=== PATIENT | male | born 1960 | race Caucasian/White ===

== ENCOUNTER 2020-07-17 08:47 | Outpatient (REF) | payer MEDICARE, MEDICAID, SELFPAY | END 2020-07-17 08:48 | disposition home or self-care (01) | LOC: HO.BBR 08:47 | PROVIDERS: Visit Provider Internal Medicine | DX: E83.19 Other disorders of iron metabolism (principal) | CPT/HCPCS: 85014; 85018; 99195 ==

== ENCOUNTER 2020-10-27 07:54 | Outpatient (REF) | payer MEDICARE, MEDICAID, SELFPAY | END 2020-10-27 07:55 | disposition home or self-care (01) | LOC: HO.BBR 07:54 | PROVIDERS: PCP Internal Medicine; Visit Provider Internal Medicine | DX: Z13.89 Encounter for screening for other disorder (principal) ==

== ENCOUNTER 2021-01-31 08:03 | Outpatient (REF) | payer MEDICARE, MEDICAID, SELFPAY | END 2021-01-31 08:04 | disposition home or self-care (01) | LOC: HO.BBR 08:03 | PROVIDERS: Visit Provider Internal Medicine | DX: Z13.89 Encounter for screening for other disorder (principal) ==

== ENCOUNTER 2021-08-24 09:04 | Outpatient (REF) | payer MEDICARE, MEDICAID, SELFPAY ==
[2021-08-24 09:50] LABS: Hematocrit 38.8 % (42.0-52.0); Hemoglobin 13.7 g/dl (14.0-18.0)
== END 2021-08-24 09:05 | disposition home or self-care (01) ==
LOC: HO.BBR 09:04
PROVIDERS: Visit Provider Internal Medicine
DX: E83.19 Other disorders of iron metabolism (principal)
CPT/HCPCS: 36415; 85014; 85018; 99195

== ENCOUNTER 2021-11-26 08:40 | Outpatient (REF) | payer MEDICARE, MEDICAID, SELFPAY | END 2021-11-26 08:41 | disposition home or self-care (01) | LOC: HO.BBR 08:40 | PROVIDERS: Visit Provider Internal Medicine | DX: Z13.89 Encounter for screening for other disorder (principal) ==

== ENCOUNTER → 2022-01-21 10:26 | Outpatient (BNVA) | payer MEDICARE, MEDICAID, SELFPAY | PROVIDERS: PCP Internal Medicine; Visit Provider Dietitian, Registered | DX: E66.01 Morbid (severe) obesity due to excess calories (principal); Z68.42 Body mass index [BMI] 45.0-49.9, adult | CPT/HCPCS: 97802 ==

== ENCOUNTER 2022-02-26 08:57 | Outpatient (REF) | payer MEDICARE, MEDICAID, SELFPAY | END 2022-02-26 08:58 | disposition home or self-care (01) | LOC: HO.BBR 08:57 | PROVIDERS: Visit Provider Internal Medicine | DX: Z13.89 Encounter for screening for other disorder (principal) ==

== ENCOUNTER 2022-05-29 09:01 | Outpatient (REF) | payer MEDICARE, MEDICAID, SELFPAY | END 2022-05-29 09:02 | disposition home or self-care (01) | LOC: HO.BBR 09:01 | PROVIDERS: Visit Provider Internal Medicine | DX: Z13.89 Encounter for screening for other disorder (principal) ==

== ENCOUNTER 2022-08-26 08:50 | Outpatient (REF) | payer MEDICARE, MEDICAID, SELFPAY | END 2022-08-26 08:51 | disposition home or self-care (01) | LOC: HO.BBR 08:50 | PROVIDERS: Visit Provider Internal Medicine | DX: Z13.89 Encounter for screening for other disorder (principal) ==

== ENCOUNTER 2022-11-26 09:54 | Outpatient (REF) | payer MEDICARE, MEDICAID, SELFPAY | END 2022-11-26 09:55 | disposition home or self-care (01) | LOC: HO.BBR 09:54 | PROVIDERS: Visit Provider Internal Medicine | DX: Z13.89 Encounter for screening for other disorder (principal) ==

== ENCOUNTER 2023-02-25 08:32 | Outpatient (REF) | payer OTHER, SELFPAY | END 2023-02-25 08:33 | disposition home or self-care (01) | LOC: HO.BBR 08:32 | PROVIDERS: PCP Family Medicine; Visit Provider Internal Medicine | DX: E83.119 Hemochromatosis, unspecified (principal) | CPT/HCPCS: 85018; 99195 ==

== ENCOUNTER 2023-05-28 08:54 | Outpatient (REF) | payer OTHER, SELFPAY | END 2023-05-28 08:55 | disposition home or self-care (01) | LOC: HO.BBR 08:54 | PROVIDERS: PCP Family Medicine; Visit Provider Internal Medicine | DX: E83.19 Other disorders of iron metabolism (principal) | CPT/HCPCS: 85014; 85018; 99195 ==

== ENCOUNTER 2023-08-26 08:44 | Outpatient (REF) | payer OTHER, SELFPAY | END 2023-08-26 08:45 | disposition home or self-care (01) | LOC: HO.BBR 08:44 | PROVIDERS: PCP Family Medicine; Visit Provider Internal Medicine | DX: E83.19 Other disorders of iron metabolism (principal) | CPT/HCPCS: 85014; 85018; 99195 ==

== ENCOUNTER 2023-09-29 10:10 | Outpatient (REF) | payer OTHER, SELFPAY ==
--- NOTE | ~2023-09-29 | XR_ITS ---
EXAMINATION: XR PELVIS CLINICAL INFORMATION: Pain. COMPARISON: MR left hip 04/26/2021. TECHNIQUE: AP view of the pelvis. FINDINGS: Evaluation is very limited due to patient body habitus and positioning. There is severe, end-stage arthrosis of the left hip with bone in bone contact and deformity of the superolateral aspect of the left femoral head. There is moderate degenerative osteoarthritis of the right hip with joint space narrowing and subcortical sclerosis. SI joints are symmetric and pelvic rami and pubic symphysis are maintained. XR/XR pelvis 1-2V IMPRESSION: Limited radiographic examination. Severe, end-stage arthrosis of the left hip with suggestion of avascular necrosis of the femoral head. Recommend further evaluation with an MRI of the left hip.
== END 2023-09-29 10:11 | disposition home or self-care (01) ==
LOC: HO.HOSX 10:10
PROVIDERS: Visit Provider Orthopaedic Surgery
DX: E66.01 Morbid (severe) obesity due to excess calories (principal); Z68.42 Body mass index [BMI] 45.0-49.9, adult; M87.052 Idiopathic aseptic necrosis of left femur
CPT/HCPCS: 72170; 99202

== ENCOUNTER 2023-09-29 10:31 | Outpatient (AMB) | payer OTHER, SELFPAY ==
--- NOTE | 2023-09-29 10:37 | MHC.OFFVIS ---
Vital Signs 09/29/23 10:52 Height 5 ft 6 in Weight 340 lb BMI 54.9 Intake Visit Reasons: new Pt - Left hip pian, discuss second opinion Intake Note: Jonny is a 63 year old male who presents today VIA Wheelchair as a new patient for a second opinion of his left hip pain. Patient has had multiple surgical opinions from surgeons across [place] and [place] but providers chose not to proceed with surgical intervention due to patients weight. BMI recorded in July 2023 was 56.49. Utilizes upper body workouts, recumbent biking and aquatic therapies, working with home PT. Hx of steroid injections in the back but reports no previous treatments for hip left hip Taking Oxycontin ER 30MG BID prescribed by his PCP Allergies No Known Allergies Allergy (Verified 09/29/23 10:48) HPI HPI new Pt - Left hip pian, discuss second opinion: Details: Jonny is a 63 year old male who presents today VIA Wheelchair as a new patient for a second opinion of his left hip pain. Patient has had multiple surgical opinions from surgeons across [place] and [place] but providers chose not to proceed with surgical intervention due to patients weight. BMI recorded in July 2023 was 56.49. Utilizes upper body workouts, recumbent biking and aquatic therapies, working with home PT. Hx of steroid injections in the back but reports no previous treatments for hip left hip. He is unable to ambulate and feels the quality of his life is very poor. For example he has a difficult time taking his prescribed Lasix because it makes him have to go to the bathroom and he can not get to the bathroom in time because of his hip. He has frustrated that no 1 has been able to help him and he comes in today for a 2nd opinion. Taking Oxycontin ER 30MG BID prescribed by his PCP [facility] Surgical History (Updated 09/29/23 @ 10:52 by Jana Coley [facility]) H/O discectomy Physical Exam Vital Signs: BMI result Body Mass Index 54.9 Extrem Other: On exam he is in a wheelchair and is morbidly obese. He is bilateral lower leg edema with palpable dorsalis pedis pulses. He has no internal or external rotation of the left hip and doing so causes pain. He can stand with a walker but he is unable to ambulate without severe difficulty. Results Reviewed Results Reviewed: I personally reviewed relevant radiographs. Left hip is severely arthritic with loss of femoral head anatomy and femoral head collapse likely secondary to avascular necrosis. Assessment & Plan Assessment & Plan (1) Morbid obesity with BMI of 45.0-49.9, adult: Code(s): E66.01 - Morbid (severe) obesity due to excess calories; Z68.42 - Body mass index [BMI] 45.0-49.9, adult Category: Medical Plan: 63-year-old gentleman who is morbidly obese. In the setting of severe hip arthritis with collapse secondary to avascular necrosis BMI is not a contraindication to surgery but it certainly makes the surgery more difficult and increases his risks. I discussed this with him. He feels that he is unable to significantly alter his weight given his lack of mobility. More concerning however is his lower extremity venous stasis. I strongly recommend that he restart his Lasix and if we are going to proceed forward with surgery, we will need to optimize his health as much as possible. (2) Avascular necrosis of bone of left hip: Code(s): M87.052 - Idiopathic aseptic necrosis of left femur Category: Medical Plan: Is left hip arthritis is severe and I recommend hip replacement. I had a long discussion with him regarding the risks, benefits and alternatives. He feels there are no alternatives as his quality of life is very poor. Again we can begin to discuss surgery but we will need to work on his comorbidities. He states vascular surgery has seen him and there is no vascular concern. I do not see evidence of vascular concern but the edema in his legs is worrisome as is his BMI. Lastly he is taking Oxy Contin 30 mg a day which is always concerning in the setting of controlling his postoperative pain. I discussed this with him as well. He understands this and will work toward decreasing his narcotics, decreasing his weight and working on his mobility and decreasing his edema. Orders: Orders XR pelvis 1-2V 09/29/23 M25.559 - Pain in unspecified hip Coding Level of Care Code New Pt Level 4 (29084) Diagnoses Morbid obesity with BMI of 45.0-49.9, adult E66.01; Z68.42 Avascular necrosis of bone of left hip M87.052
[2023-09-29 10:52] VITALS: BMI 54.9
== END 2023-09-29 11:20 | disposition home or self-care (01) ==
PROVIDERS: PCP Family Medicine; Visit Provider Orthopaedic Surgery
DX: M87.052 Idiopathic aseptic necrosis of left femur (principal); E66.01 Morbid (severe) obesity due to excess calories; Z68.42 Body mass index [BMI] 45.0-49.9, adult
CPT/HCPCS: 99204

== ENCOUNTER → 2023-10-27 10:41 | Outpatient (BNVA) | payer OTHER, SELFPAY | PROVIDERS: PCP Family Medicine | DX: Z01.818 Encounter for other preprocedural examination (principal) ==

== ENCOUNTER 2023-11-03 13:54 | Outpatient (REF) | payer OTHER, SELFPAY | END 2023-11-03 13:55 | disposition home or self-care (01) | LOC: HO.BBR 13:54 | PROVIDERS: Visit Provider Internal Medicine | DX: Z13.89 Encounter for screening for other disorder (principal) ==

== ENCOUNTER 2023-11-18 | Outpatient (REF) | payer OTHER, SELFPAY ==
[2023-11-18 12:09] VITALS: BP 119/57; PULSE 67; RESP 16; O2SAT 96; BMI 54.5
--- NOTE | 2023-11-18 12:45 | HO.ANESPROP2 ---
HPI - Anesthesia Eval Consult details Narrative: CTA at [facility] shows CAD and moderate ascites. Discussed b/w cardiology and Dr Joseph and too high risk. 63yo M for Left Hip Total Replacement, 12/16/23 Awaiting speciality optimization No recent illness No CP. SOB with minimal exertion is baseline r/t deconditioning. Walks ~ 100ft with walker before needing to catch breath. BMI: 55% COPD: Borderline, No tx/inhaler at this time, CALLAHAN with walking ~ 100 ft NICOLE: CPAP QHS Chronic opiates: Oxycontin 30mg BID, Oxycodone 10mg daily Hx cirrhosis (fatty liver, hemachromatosis): Follow GI [facility]eline, recent EGD (1 varices no intervention) Hemochromatosis: therapeutic phlebotomies. Last 11/02/23. 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 No natural teeth Back pain Back pain Arthritis Morbidly obese Fatty liver History of cirrhosis of liver Avascular necrosis Hemochromatosis COPD (chronic obstructive pulmonary disease) NICOLE on CPAP Family History Family History Maternal Grandfather Heart attack Brother Heart attack Family history of problems with anesthesia: No Surgical History Surgical History Hx of esophagogastroduodenoscopy Hx of colonoscopy [place] teeth extracted History of surgery History of back surgery (~1997) H/O discectomy (~1997) History of Problems with Anesthesia: No Social History Social History Household Members: None Housing: Apartment Are you a primary customer care consultant to a significant other at home: No Do you presently have visiting nurse or other home services: Yes (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, 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) 75 years or older and lives alone: No Patient Tobacco Use Status: Former Tobacco user Tobacco use type: Cigarette Meds Allergies Allergy/AdvReac Type Severity Reaction Status Date / Time No Known Allergies Allergy Verified 12/04/23 11:58 Home Medications ?Medication ?Instructions ?Recorded ?Confirmed ?Last Taken ?Type zolpidem 10 mg tablet 10 mg PO BEDTIME PRN Insomnia 09/29/23 12/04/23 Unknown History cholecalciferol (vitamin D3) 50 50 mcg PO DAILY 11/18/23 12/04/23 Unknown History mcg (2,000 unit) capsule (Vitamin D3) multivitamin 1 tab PO DAILY 11/18/23 12/04/23 Unknown History oxycodone 10 mg tablet 10 mg PO DAILY PRN chronic pain 11/18/23 12/04/23 Unknown History oxycodone 30 mg tablet,crush 30 mg PO BID 11/18/23 12/04/23 Unknown History resistant,extended release 12 hr (OxyContin) Exam Height,Weight and Vital Signs: Height 5 ft 6 in Weight 153.314 kg Last Vital Signs Pulse 67 11/18/23 12:09 Resp 16 11/18/23 12:09 BP 119/57 L 11/18/23 12:09 Pulse Ox 96 11/18/23 12:09 O2 Del Method Room Air 11/18/23 12:09 Airway TM Dist: <=3cm Neck ROM: Limited (severe arthritis) Loose/Missing/Broken Teeth: Yes (edentulous) Heart: RRR Lungs: CTAB, dim bases Assessment and Plan Assessment Anesthesia Assessment: Anesthesia Plan Discussed and PAT Visit Final Anesthetic Review Family History of Problems with Anesthesia: No History of Problems with Anesthesia: No
[2023-11-18 14:55] LABS: MRSA Nasal PCR NEGATIVE (Negative); SA Nasal PCR POSITIVE (Negative)
== END 2023-11-18 00:01 | disposition home or self-care (01) ==
LOC: HO.PAT
PROVIDERS: Physician Assistant; PCP Family Medicine; Visit Provider Orthopaedic Surgery
DX: Z01.818 Encounter for other preprocedural examination (principal); M16.12 Unilateral primary osteoarthritis, left hip
CPT/HCPCS: 87640; 87641

== ENCOUNTER 2023-11-20 12:29 | Outpatient (AMB) | payer OTHER, SELFPAY ==
--- NOTE | 2023-11-20 12:45 | MHC.OFFVIS ---
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 Patient himself is morbidly obese and he is in a wheelchair. There is no clear history of any coronary disease or myocardial infarction or cardiomyopathy. He has been seen by anesthesiologist and by [employer] message by their nurse practitioner, thought to be high risk for anesthesia due to high BMI of 55, cirrhosis, COPD, NICOLE as well as sedentary lifestyle. Hence they requested cardiac evaluation as well. Within limits of his activity, no clear-cut cardiac symptoms like angina. [facility] Medical History (Updated 11/20/23 @ 13:28 by Aurelio Tovar MD) Portal hypertensive gastropathy Depression Anxiety Iron overload syndrome Internal hemorrhoids Diverticulosis Hx of esophageal varices senior living prescription opiate use No natural teeth Back pain Back pain Arthritis Morbidly obese Fatty liver History of cirrhosis of liver Avascular necrosis Hemochromatosis COPD (chronic obstructive pulmonary disease) NICOLE on CPAP Surgical History Hx of esophagogastroduodenoscopy Hx of colonoscopy [place] teeth extracted History of surgery History of back surgery (~1997) H/O discectomy (~1997) Family History (Updated 11/20/23 @ 12:53 by Krystyna Coleman CMA) Maternal Grandfather Heart attack Brother Heart attack Social History (Updated 11/18/23 @ 12:38 by Shaniqua Sierra RN) Household Members: None Housing: Apartment Are you a primary neonatal intensive care unit nurse to a significant other at home: No Do you presently have visiting nurse or other home services: Yes (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, 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) Patient Tobacco Use Status: Former Tobacco user Tobacco use type: Cigarette Review of Systems Const Denies chills, Denies daytime sleepiness, Denies fatigue, Denies fever(s), Denies poor appetite, Denies snoring, Denies stops breathing during sleep, Denies weakness, Denies weight gain and Denies weight loss Eyes Denies loss of vision ENT Denies dizziness and Denies hearing loss Card Denies chest pain, Denies irregular heart rhythm, Denies claudication, Reports leg edema, Denies lightheadedness, Denies palpitations, Reports dyspnea on exertion and Denies orthopnea Resp Denies cough, Denies excessive phlegm production, Reports dyspnea on exertion, Denies snoring and Denies wheezing GI Denies abdominal pain, Denies hematochezia, Denies change in bowel habits, Denies nausea and Denies vomiting Denies dysuria and Denies urinary frequency Musc Denies arthralgias, Denies muscle weakness, Denies numbness and Denies other Skin/Breast Denies nail changes and Denies rash Neuro Denies Abnormal speech present, Denies dizziness, Denies loss of vision, Denies memory loss, Denies numbness and Denies weakness Psych Denies depression and Denies memory loss Endo Denies fatigue and Denies palpitations Ramon/Lymph Denies easy bruising Aller/Immun Denies wheezing Physical Exam Vital Signs: Last Vital Signs Pulse 68 11/20/23 12:47 BP 130/68 11/20/23 12:47 Const Other: In wheelchair General: comfortable and no acute distress Orientation/consciousness: patient oriented x3 HEENT Other: Unremarkable Head: Yes normal to inspection Neck Neck: Yes normal visual inspection Chest Chest palpation & inspection: normal inspection of the chest Resp Auscultation: clear to auscultation bilaterally Cardio Palpation: normal PMI Heart sounds: S1 normal heart sound present, S2 normal heart sound present, no gallops, no murmurs and no rubs GI Palpation (GI): Soft to palpation Back/Spine/Pelvis Other: unremarkable Skin General skin exam: no rashes or lesions noted Neuro General: patient oriented x3 Speech: No Abnormal speech present Extrem General: Yes normal to inspection Psych Mental Status: mental status grossly normal Assessment & Plan Assessment & Plan (1) Preoperative cardiovascular examination: Code(s): Z01.810 - Encounter for preprocedural cardiovascular examination Category: Medical (2) Avascular necrosis of bone of left hip: Code(s): M87.052 - Idiopathic aseptic necrosis of left femur Category: Medical (3) Morbidly obese: Code(s): E66.01 - Morbid (severe) obesity due to excess calories Category: Medical (4) History of cirrhosis of liver: Code(s): Z87.19 - Personal history of other diseases of the digestive system Category: Medical (5) COPD (chronic obstructive pulmonary disease): Code(s): J44.9 - Chronic obstructive pulmonary disease, unspecified Category: Medical (6) NICOLE on CPAP: Code(s): G47.33 - Obstructive sleep apnea (adult) (pediatric) Category: Medical (7) Hemochromatosis: Comment: therapeutic phlebotomy q 3 months, last ~10/31/2023 Code(s): E83.119 - Hemochromatosis, unspecified Category: Medical Plan In the recent EKG from [facility], underlying rhythm is sinus at 71/Min; right bundle-branch block pattern. Normal MD. Corrected QT 483 milliseconds. Considering his many comorbidities as well as sedentary lifestyle, recommend a comprehensive cardiac workup before proceeding with hip surgery. Patient is questioning the need for testing-I explained him that because of his various comorbidities, he has been thought to be high risk for surgery and hence will need cardiac testing preoperatively. Obtain echocardiogram and coronary CT. We can make an addendum after the above. Message sent to Dr. Bah/. Orders: Orders CT Cardiac Coronary Angio Today I25.10 - Atherosclerotic heart disease of [place] coronary artery without angina pectoris, Z01.810 - Encounter for preprocedural cardiovascular examination CA echo transthoracic complete Today I25.10 - Atherosclerotic heart disease of [place] coronary artery without angina pectoris, Z01.810 - Encounter for preprocedural cardiovascular examination Basic Metabolic Panel Today Z01.810 - Encounter for preprocedural cardiovascular examination Coding Level of Care Code New Pt Level 4 (74114) Diagnoses Preoperative cardiovascular examination Z01.810 Avascular necrosis of bone of left hip M87.052 Morbidly obese E66.01 History of cirrhosis of liver Z87.19 COPD (chronic obstructive pulmonary disease) J44.9 NICOLE on CPAP G47.33 Hemochromatosis E83.119
[2023-11-20 12:47] VITALS: BP 130/68; PULSE 68
== END 2023-11-20 13:48 | disposition home or self-care (01) ==
PROVIDERS: PCP Family Medicine; Visit Provider Internal Medicine
DX: Z01.810 Encounter for preprocedural cardiovascular examination (principal); M87.052 Idiopathic aseptic necrosis of left femur; E66.01 Morbid (severe) obesity due to excess calories; Z87.19 Personal history of other diseases of the digestive system; J44.9 Chronic obstructive pulmonary disease, unspecified; G47.33 Obstructive sleep apnea (adult) (pediatric); E83.119 Hemochromatosis, unspecified
CPT/HCPCS: 99204

== ENCOUNTER → 2023-11-20 12:29 | Outpatient (BNVA) | payer OTHER, SELFPAY | PROVIDERS: PCP Family Medicine; Visit Provider Internal Medicine | DX: Z01.810 Encounter for preprocedural cardiovascular examination (principal); I25.10 Atherosclerotic heart disease of native coronary artery without angina pectoris; E66.01 Morbid (severe) obesity due to excess calories; Z87.19 Personal history of other diseases of the digestive system | CPT/HCPCS: 99202 ==

== ENCOUNTER 2023-11-27 12:40 | Outpatient (REF) | payer OTHER, SELFPAY ==
[2023-11-27 09:48] VITALS: PULSE 76; RESP 16; O2SAT 97
--- NOTE | 2023-11-27 15:31 | PFT_ITS ---
Indication: NICOLE Spirometry [FEV1 to FVC 57%; FEV1 2.27 L; FVC 3.96 L. no significant response to bronchodilators noted. Maximum voluntary ventilation 67% predicted] Lung Volumes [Total lung capacity 114% predicted; residual volume 142% predicted] Diffusion Capacity [DLCO 69% predicted] Comparisons [None] Interpretation [There is a obstructive ventilatory defect consistent with moderate COPD. No significant response to bronchodilators noted. There is a mild decrease in maximum voluntary ventilation secondary to deconditioning also worsening dynamic inspiratory capacity. Lung volumes with a trend of hyperinflation and significant air trapping. There is mild diffusion impairment. Clinical correlation warranted.] MTDD
== END 2023-11-27 12:41 | disposition home or self-care (01) ==
LOC: HO.RESP 12:40
PROVIDERS: PCP Family Medicine; Visit Provider Internal Medicine Pulmonary Disease
DX: J44.9 Chronic obstructive pulmonary disease, unspecified (principal)
CPT/HCPCS: 94010; 94640; 94727; 94729

== ENCOUNTER → 2023-11-27 15:31 | Outpatient (BNV) | payer OTHER, SELFPAY | PROVIDERS: PCP Family Medicine; Visit Provider Hospitalist | DX: J44.9 Chronic obstructive pulmonary disease, unspecified (principal); G47.33 Obstructive sleep apnea (adult) (pediatric); Z01.810 Encounter for preprocedural cardiovascular examination | CPT/HCPCS: 94060; 94727; 94729 ==

== ENCOUNTER 2023-12-04 11:11 | Outpatient (AMB) | payer OTHER, SELFPAY ==
--- NOTE | 2023-12-04 11:21 | A.OFFVIS_ITS ---
Vital Signs 12/04/23 11:22 Height 5 ft 6 in Weight 332 lb BMI 53.6 BP 120/68 Blood Pressure Location Lt brachial Position Sitting Pulse 75 Pulse Source Pulse Oximeter Pulse Oximetry (%) 95 Oxygen Delivery Method Room Air Intake Visit Reasons: Pre Op - Ortho - 12/15 - LTH Intake Note: pt is here as a new patient for pulm clearance, he gets supplies from [facility], this is his second cpap, pain medication is for back and hip pain. [facility] was provider for original sleep study, and possible 2nd at [facility]. Insert Molding Operator Required: No Allergies No Known Allergies Allergy (Verified 12/04/23 11:58) Medication List - Last Reconciled 12/04/23 by Angelia Bell MD cholecalciferol (vitamin D3) (Vitamin D3) 50 mcg PO DAILY multivitamin 1 tab PO DAILY oxycodone 10 mg PO DAILY PRN oxycodone ER (OxyContin) 30 mg PO BID walker Folding Front wheeled walker zolpidem 10 mg PO BEDTIME PRN Do you need a note to return to daycare/school/sports/work: No HPI HPI Pre Op - Ortho - 12/15 - LT: Details: 63 YEARS OLD VERY PLEASANT GENTLEMAN IS BEING SEEN FOR THE 1ST TIME FOR PULMONARY EVALUATION AND PREOP CLEARANCE. HE HAS MORBID OBESITY, AND IS A KNOWN CASE OF OBSTRUCTIVE SLEEP APNEA SINCE 2003, WHEN HE WAS 1ST DIAGNOSED. HAS BEEN USING CPAP SINCE THEN, CPAP MACHINE WAS CHANGED ABOUT 6 YEARS AGO. HE IS ON AUTO PAP MODE WITH PRESSURE SETTING OF 6 TO 20 CM , BUT MOSTLY USING THE PRESSURE OF 12-13 CM. HIS COMPLIANCE HAS BEEN EXCELLENT, HE CONTINUES TO GET SUPPLIES FROM HIS DME WHICH IS [facility]. FOR HIS OBSTRUCTIVE SLEEP APNEA HE WAS BEING FOLLOWED BY DR. GUTIERREZ IN [place], BUT FOR THE PAST 5-6 YEARS HE HAS BEEN GETTING HIS SUPPLIES REGULARLY AND HAS NOT SEEN ANY PARTICULAR PHYSICIAN FOR HIS SLEEP APNEA . THE PATIENT IS WELL EDUCATED ABOUT THE USE OF CPAP. HE SLEEPS GOOD WITH THE CPAP ON OTHERWISE HE WOULD NOT BE ABLE TO SLEEP WELL. HE ALSO HAS PAST HISTORY OF SMOKING IN THE REMOTE PAST, AND QUIT ABOUT 20 YEARS AGO INITIALLY WAS ON SYMBICORT , WHICH WAS LATER ON STOPPED BECAUSE HE WAS PRONE TO GET FREQUENT RESPIRATORY INFECTIONS. FOR THE PAST 15 YEARS OR SO HE HAS JUST BEEN USING ALBUTEROL P.R.N., .AND HAS STAYED WELL THIS GENTLEMAN HAS HAD PAINFUL LEFT HIP, INITIALLY DIAGNOSED HIP FRACTURE, BU T SUBSEQUENTLY HE IS DIAGNOSED TO HAVE AVASCULAR NECROSIS OF THE LEFT HIP. HE IS BEING PREPARED FOR SURGICAL TREATMENT OF THE LEFT HIP. AT PRESENT HE DENIES ANY COUGH OR WHEEZING ATTACKS HE IS DOING WELL JUST WITH THE USE OF ALBUTEROL P.R.N.. HIS GAIT IS IMPAIRED AND HE IS MOSTLY IN THE WHEELCHAIR WHEN HE COMES OUTDOORS, AT HOME HE HOPS AROUND WITH THE HELP OF A WALKER. DENIES GETTING ANY ATTACKS OF SHORTNESS OF BREATH. 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 No natural teeth Back pain Back pain Arthritis Morbidly obese Fatty liver History of cirrhosis of liver Avascular necrosis Hemochromatosis COPD (chronic obstructive pulmonary disease) NICOLE on CPAP Surgical History Hx of esophagogastroduodenoscopy Hx of colonoscopy [place] teeth extracted History of surgery History of back surgery (~1997) H/O discectomy (~1997) Family History Maternal Grandfather Heart attack Brother Heart attack Social History Household Members: None Housing: Apartment Are you a primary healthcare risk control consultant to a significant other at home: No Do you presently have visiting nurse or other home services: Yes (BUNDLE WRAPPER 37.5 hours M-F, 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) 75 years or older and lives alone: No Patient Tobacco Use Status: Former Tobacco user Tobacco use type: Cigarette Review of Systems Const Details: SYMPTOMS ARE DESCRIBED IN HPI. MAINLY HE IS INCAPACITATED DUE TO PAINFUL LEFT HIP. HE SLEEPS WELL. WITH THE CPAP ON DENIES ANY SHORTNESS OF BREATH AT REST. .DENIES ANY CARDIAC ISSUES DENIES ANY GI PROBLEMS All systems reviewed & are unremarkable except as noted in HPI and below Physical Exam Vital Signs: Last Vital Signs Pulse 75 12/04/23 11:22 BP 120/68 12/04/23 11:22 Pulse Ox 95 12/04/23 11:22 Oxygen Delivery Method Room Air 12/04/23 11:22 BMI result Body Mass Index 53.6 THIS GENTLEMAN IS ALERT WELL ORIENTATED VERY PLEASANT TO TALK TO. DOES NOT SEEM TO BE IN ANY DISTRESS. Const General: healthy appearing, comfortable, no acute distress, alert and awake Orientation/consciousness: patient oriented x3 HEENT Head: Yes normal to inspection General nose exam: No nasal polyps present and No nasal discharge present Face and sinus: Yes sinuses nontender Mouth: oropharynx abnormals (NARROW AND CROWDED, MALLAMPATI CLASS 4) Throat: Yes posterior oropharynx normal Eyes General: appearance normal, both eyes and all related structures Neck Neck: Yes normal visual inspection, Yes no lymphadenopathy, Yes trachea midline, Yes no JVD and Yes other (NECK SIZE 20 IN) Thyroid: Thyroid normal Chest Chest palpation & inspection: normal inspection of the chest, normal palpation of entire chest wall and no tenderness Resp Other: PERCUSSION NOTE NOT PERCEPTIBLE BECAUSE OF THICK. CHEST WALL BREATH SOUNDS ARE SOMEWHAT DISTANT, AND MUCH DECREASED OVER THE BASILAR AREAS. HE HAS NO AUDIBLE WHEEZES OR RHONCHI. Cardio Palpation: PMI not normal (NOT PALPABLE) Rate: regular rate Rhythm: regular rhythm Heart sounds: Gallop heart sound present and Murmur heart sound present Peripheral pulses: Peripheral pulses 2+ throughout GI Palpation (GI): Soft to palpation, Tenderness to palpation present (GI), No hepatosplenomegaly present, Palpable mass present and Other GI palpation findings present (ABDOMINAL WALL IS GROSSLY OBESE AND PENDULOUS) Auscultation: normal bowel sounds Back/Spine/Pelvis Other: NOT EXAMINED Skin General skin exam: no rashes or lesions noted (EXCEPT FOR CHRONIC REDNESS OF THE SKIN OF LEGS) Neuro General: patient oriented x3, No gait normal (PATIENT IS NON AMBULATORY SITTING IN THE CHAIR) and no focal motor deficits Cranial nerves: Yes CN's II-XII intact bilaterally Extrem General: Yes normal to inspection, Yes no calf tenderness and Yes venous stasis dermatitis (HAS CHRONIC VENOUS STASIS AND CHRONIC EDEMA OF THE LEGS) Psych Appearance: grossly normal and well kempt Speech and movement: Normal speech and movement present Results Reviewed Results Reviewed: COMPLIANCE REPORT FOR THE CPAP IS REVIEWED. HE HAS USED THE CPAP 30/30 NIGHTS,. AVERAGE USAGE 8 HOURS 39 MINUTES PRESSURE USED IS. 12-13 CM . NO AIR LEAK RESIDUAL AHI ONLY 0.4 PULMONARY FUNCTION TEST ON 11/27/2023. SHOWS NO RESTRICTIVE PULMONARY DISORDER. THERE IS MILD TO MODERATE DEGREE OF OBSTRUCTIVE AIRWAY DISORDER. TOTAL LUNG CAPACITY IS NORMAL AND RESIDUAL VOLUME SLIGHTLY INCREASED. DIFFUSION CAPACITY 69% Assessment & Plan Assessment & Plan (1) Morbidly obese: Comment: THIS GENTLEMAN IS A CASE OF SUPER MORBID OBESITY THIS IS GOING ON FOR SEVERAL YEARS. IT IS DIFFICULT FOR HIM TO LOSE WEIGHT . Code(s): E66.01 - Morbid (severe) obesity due to excess calories Category: Medical Plan: ,ONCE HE GETS HIS LEFT HIP ARTHROPLASTY AND HE BECOMES MORE , MOBILE SHOULD TRY TO WALK AROUND. IN THE MEANTIME TRY TO CONTROL THE CALORIES INTAKE MUCH POSSIBLE (2) COPD (chronic obstructive pulmonary disease): Comment: HE HAS HISTORY OF SMOKING IN THE REMOTE PAST HE DOES HAVE DIAGNOSIS OF OBSTRUCTIVE PULMONARY DISORDER, HOWEVER IT IS MILD TO MODERATE AND SEEMS TO BE WELL CONTROLLED JUST WITH P.R.N. USE OF ALBUTEROL. Code(s): J44.9 - Chronic obstructive pulmonary disease, unspecified Category: Medical Plan: ADVISED TO START DOING DEEP BREATHING EXERCISES 3 TO 4 TIMES A DAY . CONTINUE TO USES ALBUTEROL HFA 2 PUFFS Q 4-6 HOURS P.R.N. IN CASE OF COUGH OR WHEEZING (3) NICOLE on CPAP: Comment: HE IS A WELL ESTABLISHED CASE OF OBSTRUCTIVE SLEEP APNEA. HAS BEEN USING CPAP SINCE 2003 VERY REGULARLY AND WITH FULL COMPLIANCE. HIS CURRENT COMPLIANCE REPORT SHOWS THAT HE DOES USE THE CPAP FOR 8 AND A 1/2 HOURS EVERY NIGHT AND SLEEPS WELL. HIS OBSTRUCTIVE SLEEP APNEA IS FULLY CONTROLLED WITH THE USE OF CPAP. Code(s): G47.33 - Obstructive sleep apnea (adult) (pediatric) Category: Medical Plan: * PREOP PULMONARY CLEARANCE. HIS COPD WELL OBSTRUCTIVE SLEEP APNEA BEING WELL CONTROLLED AT THIS TIME, I DO NOT SEE ANY PULMONARY CONTRAINDICATION TO HIS PLANNED SURGERY. HE IS INSTRUCTED TO START DOING DEEP BREATHING EXERCISES. HE IS INSTRUCTED TO KEEP ON USING. THE CPAP REGULARLY HE WOULD NEED TO USE, THE CPAP IN POSTOPERATIVE. MAY BE BEST FOR HIM TO TAKE HIS CPAP DEVICE WITH HIM TO THE HOSPITAL/ AND LATER ON TO THE REHAB FACILITY. HE CAN USE ALBUTEROL HFA 2 PUFFS Q 4-6 HOURS P.R.N. AND ALTERNATIVELY MAY USE ALBUTEROL SOLUTION IN THE NEBULIZER Q 4-6 HOURS P.R.N.. HE SHOULD BE ENCOURAGED TO USE INCENTIVE SPIROMETRY DEVICE FOR DEEP BREATHING EXERCISES WHILE AWAKE. Coding Level of Care Code New Pt Level 4 (82140) Diagnoses Morbidly obese E66.01 COPD (chronic obstructive pulmonary disease) J44.9 NICOLE on CPAP G47.33
[2023-12-04 11:22] VITALS: BP 120/68; PULSE 75; O2SAT 95; BMI 53.6
== END 2023-12-04 11:53 | disposition home or self-care (01) ==
PROVIDERS: PCP Family Medicine; Visit Provider Internal Medicine
DX: E66.01 Morbid (severe) obesity due to excess calories (principal); J44.9 Chronic obstructive pulmonary disease, unspecified; G47.33 Obstructive sleep apnea (adult) (pediatric)
CPT/HCPCS: 99204

== ENCOUNTER → 2023-12-04 11:11 | Outpatient (BNVA) | payer OTHER, SELFPAY | PROVIDERS: PCP Family Medicine; Visit Provider Internal Medicine | DX: J44.9 Chronic obstructive pulmonary disease, unspecified (principal); G47.33 Obstructive sleep apnea (adult) (pediatric); E66.01 Morbid (severe) obesity due to excess calories; Z99.89 Dependence on other enabling machines and devices | CPT/HCPCS: 99202 ==

== ENCOUNTER → 2023-12-05 08:42 | Outpatient (REF) | payer OTHER, SELFPAY ==
--- NOTE | 2023-12-05 08:45 | CA_ITS ---
Transthoracic Echocardiogram Patient (Last, First, Middle): Jonny Reed, Gender: Male Date of : 1960 Age: 63 Procedure Date: 12/05/2023 Procedure Type: Transthoracic Echocardiogram Location: OP Height: 167.64 cm Weight: 150.6 kg BSA: 2.48 m2 Heart Rate: 77 bpm BP: 120 / 66 mmHg Thermal Technician: SB Referring MD: Aurelio Tovar MD Symptoms: I25.10 - Atherosclerotic heart disease of [place] coronary artery without... Study Quality: Poor/BSA/Supine/HOB ECG Rhythm: Sinus Conclusions: - Based on very limited images, LVEF probably preserved. Not quantifiable. - Valves poorly visualized. Findings Procedure Information Contrast agent, definity, is being given per protocol without apparent complications. The quality of the study was technically difficult, despite the use of contrast, and endocardial definition remains poor. The study quality is limited by patients body habitus and lung artifact. Left Ventricle The left ventricle was not well visualized. Regional wall motion abnormalities can not be excluded due to suboptimal endocardial definition. Evidence suggests grade I (mild) diastolic dysfunction. Based on very limited images, LVEF probably preserved. Not quantifiable. Right Ventricle The right ventricle was not well visualized. Atria The left atrium was not well visualized. The right atrium was not well visualized. Aortic Valve The aortic valve was not well visualized. There is no aortic valve stenosis. There is no aortic valve regurgitation. Mitral Valve The mitral valve was not well visualized. Pulmonic Valve The pulmonic valve was not well visualized. Tricuspid Valve Tricuspid regurgitation envelope is inadequate for calculation of right ventricular systolic pressure. Venous The inferior vena cava was not well visualized. Pericardium/Pleural There is no evidence of pericardial effusion. Prior Study Comparison No prior study available for comparison. Measurements 2D Systolic Function EF 2C: 62.90 >55% Mitral Valve MV Pk E: 0.62 MV PK A: 0.84 MV Decel Time: 233.00 E/A: 0.70 E'Lateral: 8.38 E'Medial: 4.90 E/E' Med: 12.70 E/E' Lat: 7.40 PHT: 68.00 MVA PHT: 3.24 Decel Hinds: 2.67 Aortic Valve AoV Pk Uriel: 1.16 AoV Mn Uriel: 0.81 AoV VTI: 0.21 AoV Pk Grad: 5.00 Aov Mn Grad: 3.00 LVOT LVOT Pk Uriel: 1.03 LVOT Mn Uriel: 0.63 LVOT VTI: 0.21 LVOT Pk Grad: 4.00 LVOT Mn Grad: 2.00 Diastolic Function MV Pk E: 0.62 MV Pk A: 0.84 E/A: 0.70 E'Medial: 4.90 E/E' Med: 12.70 E' Laterial: 8.38 E/E' Lat: 7.40 Updated in Other Vendor System with Status of Final Aurelio Tovar MD electronically signed on 12/07/2023 11:39:15 AM with status of Final
== END ==
LOC: HO.CARD 08:42
PROVIDERS: PCP Family Medicine; Visit Provider Internal Medicine
DX: Z01.810 Encounter for preprocedural cardiovascular examination (principal); I25.10 Atherosclerotic heart disease of native coronary artery without angina pectoris
CPT/HCPCS: 93306; Q9957

== ENCOUNTER → 2023-12-05 08:45 | Outpatient (BNV) | payer OTHER, SELFPAY | PROVIDERS: PCP Family Medicine; Visit Provider Internal Medicine | DX: I25.10 Atherosclerotic heart disease of native coronary artery without angina pectoris (principal); R93.9 Diagnostic imaging inconclusive due to excess body fat of patient | CPT/HCPCS: 93306 ==

== ENCOUNTER 2023-12-12 10:47 | Outpatient (REF) | payer OTHER, SELFPAY | END 2023-12-12 10:48 | disposition home or self-care (01) | LOC: HO.HOSX 10:47 | PROVIDERS: Visit Provider Physician Assistant | DX: Z13.89 Encounter for screening for other disorder (principal) ==

== ENCOUNTER 2023-12-15 13:07 | Outpatient (AMB) | payer OTHER, SELFPAY ==
[2023-12-15 13:11] VITALS: BMI 53.6
--- NOTE | 2023-12-15 13:11 | A.OFFVIS_ITS ---
Vital Signs 12/15/23 13:11 Height 5 ft 6 in Weight 332 lb BMI 53.6 Intake Visit Reasons: discussion Intake Note: Jonny is a 63 year old male who presents today for discussion with Dr. Cohen regarding surgical interventions Allergies No Known Allergies Allergy (Verified 12/04/23 11:58) HPI HPI discussion: Details: Jonny is a 63 year old male who presents today for discussion with Dr. Cohen regarding surgical interventions. He has a history of liver disease and cardiac malfunction and was being evaluated for risk for hip arthroplasty. He continues to be opioid dependent and have significant lower extremity edema. He complains of right hip pain that prevents him from walking. He is able to walk minimally with a walker however. [facility] Medical History Portal hypertensive gastropathy Depression Anxiety Iron overload syndrome Internal hemorrhoids Diverticulosis Hx of esophageal varices intermediate prescription opiate use No natural teeth Back pain Back pain Arthritis Morbidly obese Fatty liver History of cirrhosis of liver Avascular necrosis Hemochromatosis COPD (chronic obstructive pulmonary disease) NICOLE on CPAP Surgical History Hx of esophagogastroduodenoscopy Hx of colonoscopy [place] teeth extracted History of surgery History of back surgery (~1997) H/O discectomy (~1997) Family History Maternal Grandfather Heart attack Brother Heart attack Social History Household Members: None Housing: Apartment Are you a primary long term acute care registered nurse to a significant other at home: No Do you presently have visiting nurse or other home services: Yes (QUALITY CONTROL REPRESENTATIVE 37.5 hours M-F, 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) 75 years or older and lives alone: No Patient Tobacco Use Status: Former Tobacco user Tobacco use type: Cigarette Physical Exam Vital Signs: BMI result Body Mass Index 53.6 Extrem Other: Morbidly obese gentleman with bilateral 2+ lower extremity edema and venous stasis. He has minimal pain of his right hip with positive impingement test. Results Reviewed Results Reviewed: Recent CT angiogram showed moderate blockage of his coronary vessels with ascites in his abdominal region. Assessment & Plan Assessment & Plan (1) Hemochromatosis: Comment: therapeutic phlebotomy q 3 months, last ~10/31/2023 Code(s): E83.119 - Hemochromatosis, unspecified Category: Medical Plan: This contributes to his liver disease apparently. (2) COPD (chronic obstructive pulmonary disease): Comment: HE HAS HISTORY OF SMOKING IN THE REMOTE PAST HE DOES HAVE DIAGNOSIS OF OBSTRUCTIVE PULMONARY DISORDER, HOWEVER IT IS MILD TO MODERATE AND SEEMS TO BE WELL CONTROLLED JUST WITH P.R.N. USE OF ALBUTEROL. Code(s): J44.9 - Chronic obstructive pulmonary disease, unspecified Category: Medical Plan: This is stable (3) Morbidly obese: Comment: THIS GENTLEMAN IS A CASE OF SUPER MORBID OBESITY THIS IS GOING ON FOR SEVERAL YEARS. IT IS DIFFICULT FOR HIM TO LOSE WEIGHT . Code(s): E66.01 - Morbid (severe) obesity due to excess calories Category: Medical Plan: He is having a hard time losing weight presumably because of lack of ability to ambulate secondary to hip pain. (4) History of cirrhosis of liver: Code(s): Z87.19 - Personal history of other diseases of the digestive system Category: Medical Plan: I he needs a further preoperative workup to see the role of his liver and his surgical risk factor. (5) Avascular necrosis of bone of left hip: Code(s): M87.052 - Idiopathic aseptic necrosis of left femur Category: Medical Plan: Severe left hip osteoarthritis with loss of femoral head sphericity. I have recommended labs to assess liver function as well as a serum albumin. I will try to contact his PCP and get him on some diuretics as he states when he is on diuretics is swelling goes down significantly. He is anxious to have his hip replaced but I continue to think he is far too high a risk of a surgical ca ndidate but,in his defense, he does have severe disease of his hip. Orders: Orders Comprehensive Met. Panel Today Z87.19 - Personal history of other diseases of the digestive system Albumin Level Today Z87.19 - Personal history of other diseases of the digestive system Coding Level of Care Code Est Pt Level 4 (45602) Diagnoses Hemochromatosis E83.119 COPD (chronic obstructive pulmonary disease) J44.9 Morbidly obese E66.01 History of cirrhosis of liver Z87.19 Avascular necrosis of bone of left hip M87.052
== END 2023-12-15 14:22 | disposition home or self-care (01) ==
PROVIDERS: PCP Family Medicine; Visit Provider Orthopaedic Surgery
DX: M87.052 Idiopathic aseptic necrosis of left femur (principal); E83.119 Hemochromatosis, unspecified; J44.9 Chronic obstructive pulmonary disease, unspecified; E66.01 Morbid (severe) obesity due to excess calories; Z87.19 Personal history of other diseases of the digestive system
CPT/HCPCS: 99214

== ENCOUNTER → 2023-12-15 13:07 | Outpatient (BNVA) | payer OTHER, SELFPAY | PROVIDERS: PCP Family Medicine; Visit Provider Orthopaedic Surgery | DX: E83.119 Hemochromatosis, unspecified (principal); M87.052 Idiopathic aseptic necrosis of left femur; J44.9 Chronic obstructive pulmonary disease, unspecified; E66.01 Morbid (severe) obesity due to excess calories; Z68.43 Body mass index [BMI] 50.0-59.9, adult; Z87.19 Personal history of other diseases of the digestive system | CPT/HCPCS: 99212 ==

== ENCOUNTER 2024-01-19 12:27 | Outpatient (AMB) | payer OTHER, SELFPAY ==
[2024-01-19 12:31] VITALS: BP 126/62; PULSE 85
--- NOTE | 2024-01-19 12:31 | MHC.OFFVIS ---
Vital Signs 01/19/24 12:31 Height 5 ft 6 in BMI Reason not done Patient refused/unable BP 126/62 Blood Pressure Location Lt brachial Position Sitting Pulse 85 Pulse Source Monitor Intake Visit Reasons: f/u Allergies No Known Allergies Allergy (Verified 12/04/23 11:58) Medication List - Last Reconciled 01/19/24 by Aurelio Tovar MD albuterol sulfate 90 mcg/actuation 2 puffs inhalation Q4-6H PRN 60 days cholecalciferol (vitamin D3) (Vitamin D3) 50 mcg PO DAILY multivitamin 1 tab PO DAILY oxycodone 10 mg PO DAILY PRN oxycodone ER (OxyContin) 30 mg PO BID walker Folding Front wheeled walker zolpidem 10 mg PO BEDTIME PRN HPI Comments Details: Jonny returns for follow-up. He was recently seen in consultation regarding preoperative risk stratification for hip surgery. He is morbidly obese and is in a wheelchair. Per previous discussion with Anesthesiology, he was thought to be high risk for anesthesia due to high BMI of 55, cirrhosis, COPD, NICOLE and sedentary lifestyle. Hence preoperative consultation was requested. Patient himself does not really have any angina or any clear-cut cardiac symptoms. He underwent coronary CTA. 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 No natural teeth Back pain Back pain Arthritis Morbidly obese Fatty liver History of cirrhosis of liver Avascular necrosis Hemochromatosis COPD (chronic obstructive pulmonary disease) NICOLE on CPAP Surgical History Hx of esophagogastroduodenoscopy Hx of colonoscopy [place] teeth extracted History of surgery History of back surgery (~1997) H/O discectomy (~1997) Family History Maternal Grandfather Heart attack Brother Heart attack Social History Household Members: None Housing: Apartment Are you a primary care associate to a significant other at home: No Do you presently have visiting nurse or other home services: Yes (ASSISTANT SCIENTIST 37.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, 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) 75 years or older and lives alone: No Patient Tobacco Use Status: Former Tobacco user Tobacco use type: Cigarette Review of Systems Const Denies weakness ENT Denies dizziness Card Denies chest pain, Denies chest pain with activity, Denies syncope, Denies rapid heart rate, Denies pedal edema, Denies edema, Denies leg edema, Denies lightheadedness, Denies palpitations, Denies dyspnea, Denies dyspnea on exertion and Denies orthopnea Resp Denies cough, Denies dyspnea and Denies dyspnea on exertion GI Denies hematochezia and Denies change in stool character Musc Denies abnormal gait, Denies muscle cramps, Denies muscle weakness, Denies numbness, Denies radiating pain into limb and Denies tingling Neuro Denies abnormal gait, Denies dizziness, Denies syncope, Denies numbness, Denies tingling and Denies weakness Endo Denies palpitations Physical Exam Vital Signs: Last Vital Signs Pulse 85 01/19/24 12:31 BP 126/62 01/19/24 12:31 Const General: comfortable and no acute distress Orientation/consciousness: patient oriented x3 HEENT Other: Unremarkable Head: Yes normal to inspection Neck Neck: Yes normal visual inspection Chest Chest palpation & inspection: normal inspection of the chest Resp Auscultation: clear to auscultation bilaterally Cardio Palpation: normal PMI Heart sounds: S1 normal heart sound present, S2 normal heart sound present, no gallops, no murmurs and no rubs GI Palpation (GI): Soft to palpation Back/Spine/Pelvis Other: unremarkable Skin General skin exam: no rashes or lesions noted Neuro General: patient oriented x3 Extrem General: Yes normal to inspection Psych Mental Status: mental status grossly normal Office Procedures EKG Details: In the EKG, underlying rhythm is sinus at 85/Min; right bundle-branch block and left anterior fascicular block; normal [place]. Slightly prolonged corrected QT but QRS is also slightly wide. [id number], Complete Assessment & Plan Assessment & Plan (1) Preoperative cardiovascular examination: Code(s): Z01.810 - Encounter for preprocedural cardiovascular examination Category: Medical (2) Atherosclerotic cardiovascular disease: Code(s): I25.10 - Atherosclerotic heart disease of [place] coronary artery without angina pectoris Category: Medical (3) Avascular necrosis of bone of left hip: Code(s): M87.052 - Idiopathic aseptic necrosis of left femur Category: Medical (4) Morbidly obese: Code(s): E66.01 - Morbid (severe) obesity due to excess calories Category: Medical (5) History of cirrhosis of liver: Code(s): Z87.19 - Personal history of other diseases of the digestive system Category: Medical (6) COPD (chronic obstructive pulmonary disease): Code(s): J44.9 - Chronic obstructive pulmonary disease, unspecified Category: Medical (7) NICOLE on CPAP: Code(s): G47.33 - Obstructive sleep apnea (adult) (pediatric) Category: Medical (8) Hemochromatosis: Code(s): E83.119 - Hemochromatosis, unspecified Category: Medical Plan Coronary CTA reviewed. Moderate to severe mixed plaque burden in the proximal to mid circumflex. 70% stenosis in the mid circumflex. Proximal to mid LAD with 25-50% stenosis. Proximal RCA also with 25-50% stenosis. Moderate sized ascites. Echocardiogram with probably preserved LVEF but difficult to assess because of poor image quality. Findings discussed with patient, sister as well as ASSISTANT SCIENTIST. With regard to coronary disease he does not have any clear-cut angina. With his comorbidities, would like to avoid any coronary interventions especially as he has no angina. Can take low-dose aspirin. Will need to get lipid profile and LFTs and probably start statins unless any significant abnormalities in liver function. With regard to hip surgery, it seems that he is truly limited by pain. We discussed about cardiac risks from surgery including myocardial infarction, congestive heart failure as well as . He states that he is willing to accept all these risks and still proceed as he states that his lifestyle is very poor. Overall cardiac risk is considered high and unmodifiable. We will also request last note from his technical business analyst regarding cirrhosis. Otherwise, we will plan on following up in 6 months time. Coding Level of Care Code Est Pt Level 5 (61865) Diagnoses Preoperative cardiovascular examination Z01.810 Atherosclerotic cardiovascular disease I25.10 Avascular necrosis of bone of left hip M87.052 Morbidly obese E66.01 History of cirrhosis of liver Z87.19 COPD (chronic obstructive pulmonary disease) J44.9 NICOLE on CPAP G47.33 Hemochromatosis E83.119 CPT Codes EKG - CPT: 83009-[id number], Complete ([id number])
== END 2024-01-19 13:08 | disposition home or self-care (01) ==
PROVIDERS: PCP Family Medicine; Visit Provider Internal Medicine
DX: M87.052 Idiopathic aseptic necrosis of left femur (principal); I25.10 Atherosclerotic heart disease of native coronary artery without angina pectoris; E66.01 Morbid (severe) obesity due to excess calories; J44.9 Chronic obstructive pulmonary disease, unspecified; Z01.810 Encounter for preprocedural cardiovascular examination; Z87.19 Personal history of other diseases of the digestive system; G47.33 Obstructive sleep apnea (adult) (pediatric); E83.119 Hemochromatosis, unspecified
CPT/HCPCS: 93010; 99214

== ENCOUNTER → 2024-01-19 12:27 | Outpatient (BNVA) | payer OTHER, SELFPAY | PROVIDERS: PCP Family Medicine; Visit Provider Internal Medicine | DX: Z01.810 Encounter for preprocedural cardiovascular examination (principal); I25.10 Atherosclerotic heart disease of native coronary artery without angina pectoris; J44.9 Chronic obstructive pulmonary disease, unspecified; G47.33 Obstructive sleep apnea (adult) (pediatric); K74.60 Unspecified cirrhosis of liver; M87.052 Idiopathic aseptic necrosis of left femur; E83.119 Hemochromatosis, unspecified; E66.01 Morbid (severe) obesity due to excess calories; Z87.19 Personal history of other diseases of the digestive system; Z68.43 Body mass index [BMI] 50.0-59.9, adult; Z99.89 Dependence on other enabling machines and devices | CPT/HCPCS: 93005; 99212 ==

== ENCOUNTER 2024-01-28 09:24 | Outpatient (AMB) | payer OTHER, SELFPAY ==
[2024-01-28 09:27] VITALS: BP 136/68; PULSE 78; O2SAT 96
--- NOTE | 2024-01-28 09:27 | A.OFFPC_ITS ---
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 Required: No Allergies No Known Allergies Allergy (Verified 01/28/24 09:55) Medication List - Last Reconciled 01/28/24 by Dalia Harmon PA-C albuterol sulfate 90 mcg/actuation 2 puffs inhalation Q4-6H PRN 60 days aspirin 81 mg PO DAILY atorvastatin (Lipitor) 10 mg PO BEDTIME cholecalciferol (vitamin D3) (Vitamin D3) 50 mcg PO DAILY multivitamin 1 tab PO DAILY oxycodone 10 mg PO DAILY PRN oxycodone ER (OxyContin) 30 mg PO BID walker Folding Front wheeled walker zolpidem 10 mg PO BEDTIME PRN Tobacco use date assessed: 01/28/24 Fall risk assessment: 1 Fall in past year (fell in drive [address], no hospital visit ) Last assessed Fall Risk: 01/28/24 Dental Screening Dental Screen Date: 01/28/24 Did you have a dental visit in the last 12 months?: No Did you have a dental problem in the last 6 months where you did not have access to dental care?: No HPI Establish care HPI Details 64-year-old male with past medical histo ry of morbid obesity, cirrhosis, COPD, obstructive sleep apnea, hemochromatosis, and coronary artery disease. Review of the notes patient follows with Cardiology last seen 01/19/2024 for preoperative appointment regarding hip surgery advised high cardiac risk and follow up in 6 months. Patient was seen by Orthopedics 12/18/2023 for severe left hip osteoarthritis with loss of femoral head sphericity. Patient was seen by pulmonology for evaluation prior to preop COPD and obstructive sleep apnea well controlled. Patient follows with Dr. Sloan through [facility] for hemochromatosis and subsequent cirrhosis. He undergo therapeutic blood draws every 3 months for hemochromatosis. Colonoscopy completed this year and repeat in 10 years. Has had screening completed for abdominal aortic ultrasound. He regularly sees an eye doctor and etl manager. His previous PCP under the guidance of pain management was prescribing oxycodone for chronic hip and back pain. He does complain of left hip pain and is followed by orthopedics for this with plans to undergo total hip replacement awaiting word from surgeon and anesthesiologist. [facility] Medical History Portal hypertensive gastropathy Depression Anxiety Iron overload syndrome Internal hemorrhoids Diverticulosis Hx of esophageal varices USP prescription opiate use No natural teeth Back pain Back pain Arthritis Morbidly obese Fatty liver History of cirrhosis of liver Avascular necrosis Hemochromatosis COPD (chronic obstructive pulmonary disease) NICOLE on CPAP Surgical History Hx of esophagogastroduodenoscopy Hx of colonoscopy [place] teeth extracted History of surgery History of back surgery (~1997) H/O discectomy (~1997) Family History Maternal Grandfather Heart attack Brother Heart attack Social History Household Members: None Housing: Apartment Are you a primary assistant child care teacher to a significant other at home: No Do you presently have visiting nurse or other home services: Yes (ATHLETIC FIELD CUSTODIAN 37.5 hours M-F, 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) 75 years or older and lives alone: No Patient Tobacco Use Status: Former Tobacco user Tobacco use type: Cigarette service: No Current occupational status: unemployed Cognitive needs: No Hearing needs: No Vision needs: No Questionnaire PHQ-9 Over the last 2 weeks, how often have you been bothered by any of the following problems? 1. Little interest or pleasure in doing things: several days 2. Feeling down, depressed, or hopeless: more than half the days 3. Trouble falling or staying asleep, or sleeping too much: more than half the days 4. Feeling tired or having little energy: more than half the days 5. Poor appetite or overeating: more than half the days 6. Feeling bad about yourself - or that you are a failure or have let yourself or your family down: more than half the days 7. Trouble concentrating on things, such as reading the newspaper or watching television: more than half the days 8. Moving or speaking so slowly that other people could have noticed. Or the opposite - being so fidgety or restless that you have been moving around a lot more than usual: not at all 9. Thoughts that you would be better off or of hurting yourself in some way: not at all Total score: 13 Depression Screening Interpretation: Positive Depression Screening Done: Yes 42440 - PHQ-9 Billing: Yes Source: Developed by Drs. Deep Salguero, Marixa Aranda, Damon Foster and colleagues, with an educational mary from [employer]. Thrive Questionnaire Date Thrive assessed: 01/13/24 I am a: Patient What is your living situation today?: I have a place to live, but I am worried about losing it in the future Within the past 12 months, did the food you bought not last and you didn't have the money to get more?: Never true Within the past 12 months, did you worry whether your food would run out before you got money to buy more?: Never true Do you have trouble paying for medicines?: No Do you have trouble getting transportation to medical appointments?: No Do you have trouble paying your heating and electricity bill?: No Do you have trouble taking care of your child, family member or friend?: No Do you have trouble with day-to-day activities such as bathing, preparing meals, shopping, managing finances, etc.?: Yes Are you currently unemployed and looking for a job?: No Are you interested in more education?: No Please select the resources that you would like help with: Housing/Care Home and Daily support Currently or been in a relationship where the following occur: No concerns reported THRIVE Score: 1 AUDIT C Alcohol Use Questionnaire (AUDIT-C) 1. How often do you have a drink containing alcohol?: Never 2. How many drinks containing alcohol do you have on a typical day when you are drinking?: 1 or 2 (0) 3. How often do you have six or more drinks on one occasion?: Never Total Score: 0 CHEPE-7 AMB Questionnaire CHEPE-7 Date CHEPE - 7 assessed: 01/28/24 Feeling nervous, anxious, or on edge: 3 = Nearly every day Not being able to stop or control worryin = Nearly every day Worrying too much about different things: 1 = Several days Trouble relaxin = Several days Being so restless that it is hard to sit still: 0 = Not at all Becoming easily annoyed or irritable: 1 = Several days Feeling afraid as if something awful might happen: 0 = Not at all Total CHEPE-7 score (0-4 normal; 5-9 mild; 10-14 moderate; 15-21 severe): 9 Source: Developed by Drs. Deep Salguero, Marixa Aranda, Damon Foster and colleagues, with an educational mary from [employer]. CHEPE-7 Assessment Billing CHEPE-7 Assessment Tool: CHEPE-7 Assessment 50672 Physical exam (Primary Care) Vital Signs: Last Vital Signs Pulse 78 01/28/24 09:27 BP 136/68 01/28/24 09:27 Pulse Ox 96 01/28/24 09:27 Oxygen Delivery Method Room Air 01/28/24 09:27 Tobacco/Smoking Status: Tobacco use Status Tobacco use date assessed 01/28/24 01/28/24 09:28 Patient Tobacco Use Status Former Tobacco user 01/28/24 09:28 Tobacco use type Cigarette 01/28/24 09:28 PHQ-9: PHQ-9 Score PHQ-9: Total score 13 01/28/24 12:15 Depression Screening Interpretation: Positive Thrive Assessment: Date of Thrive Assessment Date Thrive assessed 01/13/24 01/28/24 09:28 Currently or been in a relationship where the following occur: No concerns reported Const General: cooperative, healthy appearing, comfortable and no acute distress Orientation/consciousness: patient oriented x3 HENMT Head: Yes normocephalic Ears: hearing grossly normal bilaterally General nose exam: Normal external nose present Eyes General: appearance normal, both eyes and all related structures Conjunctivae: conjunctivae normal Neck Neck: Yes full ROM and Yes no lymphadenopathy Resp Effort & Inspection: normal respiratory effort Auscultation: clear to auscultation bilaterally, no crackles, no rales, no rhonchi and no wheezes Cardio Rate: regular rate Rhythm: regular rhythm Skin General skin exam: no rashes or lesions noted Neuro General: patient oriented x3 Gait exam (Neuro): Normal gait present Extrem General: Yes normal to inspection, Yes full ROM and No edema Psych Affect: normal affect Attitude: cooperative Insight: Good insight present (Psych) Judgement: Good judgement present (Psych) Coding Level of Care Code New Pt Level 4 (46719) Diagnoses History of cirrhosis of liver Z87.19 Morbidly obese E66.01 Avascular necrosis of bone of left hip M87.052 COPD (chronic obstructive pulmonary disease) J44.9 NICOLE on CPAP G47.33 Atherosclerotic cardiovascular disease I25.10 Hemochromatosis E83.119 Diabetes mellitus E11.9 Additional Codes CHEPE-7 Assessment Billing - CHEPE-7 Assessment Tool: CHEPE-7 Assessment 54674 ([id number]) Assessment & Plan Assessment & Plan (1) History of cirrhosis of liver: Code(s): Z87.19 - Personal history of other diseases of the digestive system Category: Medical Plan: Continue to follow with Dr. Sloan through [facility]. We will continue to monitor LFTs and iron levels. (2) Morbidly obese: Code(s): E66.01 - Morbid (severe) obesity due to excess calories Category: Medical Plan: Encouraged healthy diet and regular exercise. Patient primarily nonambulatory due to left hip pain. (3) Avascular necrosis of bone of left hip: Code(s): M87.052 - Idiopathic aseptic necrosis of left femur Category: Medical Plan: Continue to follow with orthopedics for plan of total hip replacement awaiting clearance from anesthesiologist and surgeon. Patient currently on long-term narcotics for management of pain by previous PCP. Discussed these prescriptions would not be continue while in our practice and referral placed for pain man agement urgently. Advised patient to reach out to previous PCP for refill of medications in the meantime before being seen by pain management. Offered patient option of referral [facility] for Suboxone while discontinuing oxycodone which was declined at this time. Discussed that patient will most likely go through withdrawals if he discontinues oxycodone abruptly and to reach out to previous office for taper instructions or referral to [facility] for further management. (4) COPD (chronic obstructive pulmonary disease): Code(s): J44.9 - Chronic obstructive pulmonary disease, unspecified Category: Medical Plan: Patient recently seen by pulmonology considered stable on current medication regimen. Patient finds difficulty with using albuterol inhaler and would prefer nebulized solution which was prescribed today. (5) NICOLE on CPAP: Code(s): G47.33 - Obstructive sleep apnea (adult) (pediatric) Category: Medical Plan: Uses CPAP faithfully at least 4 hours a night and benefits from this therapy. Use of zolpidem for sleep as the mask tends to keep him awake. (6) Atherosclerotic cardiovascular disease: Code(s): I25.10 - Atherosclerotic heart disease of [place] coronary artery without angina pectoris Category: Medical Plan: Continue to follow with Cardiology recently started on atorvastatin. Updated labs ordered for lipid and liver function tests. (7) Hemochromatosis: Code(s): E83.119 - Hemochromatosis, unspecified Category: Medical Plan: Continue with therapeutic phlebotomy every 3 months. We will continue to monitor iron levels. (8) Diabetes mellitus: Code(s): E11.9 - Type 2 diabetes mellitus without complications Category: Medical Plan: Decrease the amount of carbohydrates such as pasta, bread, rice, and potatoes and limit the amount of sweets. Although fruits are generally healthy they should be eaten in moderation as they are still high in sugar. Hemoglobin A1c goal of less than 7%. Patient had previous diagnosis and is not currently on medical management for diabetes mellitus and is managed conservatively with diet. Plan This note was constructed using voice recognition software. While every effort has been made to ensure accuracy and hand assembler, still areas may have been included sometimes these areas may affect the content or meeting of the given symptoms. Total time spent caring for the patient today was 30 minutes. This includes time spent before the visit reviewing the chart, time spent during the visit, and time spent after the visit and documentation. Orders: Orders Lipid Panel Today Z00.00 - Encounter for general adult medical examination without abnormal findings Comprehensive Met. 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
== END 2024-01-28 10:26 | disposition home or self-care (01) ==
PROVIDERS: PCP Family Medicine
DX: J44.9 Chronic obstructive pulmonary disease, unspecified (principal); M87.052 Idiopathic aseptic necrosis of left femur; E11.9 Type 2 diabetes mellitus without complications; E66.813 Obesity, class 3; Z87.19 Personal history of other diseases of the digestive system; G47.33 Obstructive sleep apnea (adult) (pediatric); I25.10 Atherosclerotic heart disease of native coronary artery without angina pectoris; E83.119 Hemochromatosis, unspecified

== ENCOUNTER → 2024-01-28 09:24 | Outpatient (BNVA) | payer OTHER, SELFPAY | PROVIDERS: PCP Family Medicine | DX: E66.01 Morbid (severe) obesity due to excess calories (principal); M87.052 Idiopathic aseptic necrosis of left femur; J44.9 Chronic obstructive pulmonary disease, unspecified; G47.33 Obstructive sleep apnea (adult) (pediatric); I25.10 Atherosclerotic heart disease of native coronary artery without angina pectoris; E83.119 Hemochromatosis, unspecified; E11.9 Type 2 diabetes mellitus without complications; Z87.19 Personal history of other diseases of the digestive system | CPT/HCPCS: 96127; 99202 ==

== ENCOUNTER 2024-02-03 08:46 | Outpatient (REF) | payer OTHER, SELFPAY | END 2024-02-03 08:47 | disposition home or self-care (01) | LOC: HO.BBR 08:46 | PROVIDERS: PCP Family Medicine; Visit Provider Internal Medicine | DX: E83.110 Hereditary hemochromatosis (principal) | CPT/HCPCS: 85018; 99195 ==

== ENCOUNTER 2024-02-10 10:14 | Outpatient (AMB) | payer OTHER, SELFPAY ==
--- NOTE | 2024-02-10 10:16 | MHC.OFFVIS ---
Vital Signs 02/10/24 10:24 Height 5 ft 6 in Weight 342 lb BMI 55.2 BP 137/68 Blood Pressure Location Lt brachial Position Sitting Pulse 85 Pulse Source Pulse Oximeter Pulse Oximetry (%) 95 Oxygen Delivery Method Room Air Intake Visit Reasons: Idiopathic aseptic necrosis of left femur Web Project Manager Required: No Accompanied by: Family/Other Allergies No Known Allergies Allergy (Verified 02/10/24 10:28) HPI HPI Idiopathic aseptic necrosis of left femur: Details: Patient is a 64 years male with complex medical and surgical history, including BMI of 55, liver cirrhosis, arthritis, headaches, COPD, NICOLE, former tobacco use, sedentary lifestyle due to limited mobility and pain since December 2020 due to left femur avascular necrosis, multiple back surgeries and 30 back injections, presents today for discussion of opioid program to continue current opioid regime prescribing. His previous PCP provider has retired and he was recently establish at our [facility]. Patient is currently taking OxyContin 30 mg b.i.d. and oxycodone 10 mg daily p.r.n. which he reports allows him to be less symptomatic and partially more functional. Patient reports this opioid regime was recommended by Dr. Rucker to his previous PCP. Patient has been evaluated by Dr. Bah for left total hip replacement and was sent for Cardiovascular and GI preoperative evaluations due to high anesthesia risk. His overall cardiac risk is considered high and unmodifiable per Dr. Tovar but patient is willing to accept all cardiac risks and proceed with hip surgery as he states that his lifestyle is very poor. He has upcoming GI evaluation to assess his liver function. His main pain generators are chronic low back pain and left hip pain which negatively affect his daily activities and functioning, mood, sleep, mobility, social interactions and quality of life. Patient reports he was declined hip injections many times and understands steroid effects of further deterioration of his left femur avascular necrosis. Patient has been on permanent disability for personal injury due to lower back lifting injury. 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 Both GEAR LAPPING MACHINE OPERATOR and sister are present during today's visit. Patient reports previous psychological counseling for chronic pain and depression in [place], [place]. He drink one cup of coffee every morning, uses Medical marijuana for pain and sleep with mild relief, quit smoking (2 PPD) in 2003, and denies alcohol consumption or illicit drug use. Location: Left hip and low back pain Duration: Chronic back pain since 1997, left hip pain for past 3 years Characteristics of symptom or complaint: Aching, sore, pinching, cramping, tiring, radiating, spreading, throbbing Aggravating or associated factors: Any movement, changing positions, weather changes, weight-bearing, walking Relieving factors: Oxycontin, oxycodone, rest, activity modifications, ice/heat, topicals Treatment: H/o back surgeries, PT, massage, OT, TENS unit, back injections x30 PFSH Medical History (Updated 02/10/24 @ 11:03 by JOHANNA Marie) Chronic pain syndrome Portal hypertensive gastropathy Depression Anxiety Iron overload syndrome Internal hemorrhoids Diverticulosis Hx of esophageal varices [facility] prescription opiate use No natural teeth Back pain Back pain Arthritis Morbidly obese Fatty liver History of cirrhosis of liver Avascular necrosis Hemochromatosis COPD (chronic obstructive pulmonary disease) NICOLE on CPAP Surgical History Hx of esophagogastroduodenoscopy Hx of colonoscopy [place] teeth extracted History of surgery History of back surgery (~1997) H/O discectomy (~1997) Family History Maternal Grandfather Heart attack Brother Heart attack Social History Household Members: None Housing: Apartment Are you a primary technical healthcare consultant to a significant other at home: No Do you presently have visiting nurse or other home services: Yes (GEAR LAPPING MACHINE 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, 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) 75 years or older and lives alone: No Patient Tobacco Use Status: Former Tobacco user Tobacco use type: Cigarette service: No Current occupational status: unemployed Cognitive needs: No Hearing needs: No Vision needs: No Review of Systems Const Reports as per HPI, Denies body aches, Reports difficulty sleeping, Reports fatigue, Denies fever(s), Denies night sweats, Reports snoring, Reports weakness (LLE due to hip pain with weight bearing) and Denies weight loss ENT Denies dizziness, Denies neck pain and Denies sore throat Card Denies chest pain with activity, Denies rapid heart rate, Denies pedal edema, Reports leg edema, Denies palpitations, Denies dyspnea and Denies dyspnea on exertion Resp Denies cough, Denies dyspnea, Denies dyspnea on exertion and Reports snoring GI Denies hematochezia, Denies change in stool character and Denies fecal incontinence Musc Reports abnormal gait (Limited mobility, antalgic gait with limping), Reports back pain, Reports arthralgias, Denies joint swelling, Reports limited range of motion, Denies muscle weakness, Denies neck pain, Denies numbness, Denies radiating pain into limb and Denies tingling Skin/Breast Denies rash and Denies wounds Neuro Reports abnormal gait (Limited mobility, antalgic gait with limping), Denies burning sensations, Denies dizziness, Denies memory loss, Denies numbness, Denies radicular pain, Denies tingling and Reports weakness (LLE due to hip pain with weight bearing) Psych Denies anxiety, Reports depression, Denies memory loss, Denies homicidal ideation and Denies suicidal ideation Endo Reports fatigue and Denies palpitations Physical Exam Vital Signs: Last Vital Signs Pulse 85 02/10/24 10:24 BP 137/68 02/10/24 10:24 Pulse Ox 95 02/10/24 10:24 Oxygen Delivery Method Room Air 02/10/24 10:24 BMI result Body Mass Index 55.2 General: Appears afebrile. Morbidly obese. Alert and oriented. Mood and affect appropriate. Follows and participates in conversation appropriately. Respiratory effort is unlabored. No cough. Able to transition from sit to stand with assistance. Patient arrived via W/C, reports minimal ambulation due to left hip and back pain. Back/Spine/Pelvis Cervical Spine: loss of normal cervical lordosis, cervical muscular tenderness, pain with cervical ROM and No Cervical spine tenderness Thoracic/Lumbar Spine: thoracic and lumbar spine normal to inspection, Thoracic/lumbar spine scar(s), Lasegue's sign negative, straight leg raise negative bilaterally, pain with thoraco-lumbar ROM, thoraco-lumbar ROM limited, No thoracic spinal tenderness and lumbar spinal tenderness (L4-S1) Sacroiliac joints: bilaterally tender to palpation Extrem General: Yes no calf tenderness, No cyanosis and Yes edema (BLE +1-+2 nonpitting edema) Left lower extremity: hip/thigh (limited ROM due to pain and body habitus. +groin pain with I/E rotations) Details: tenderness Location: of the hip Location: posterolaterally and over the great trochanter and crepitus; no swelling, no ecchymosis and no unusual warmth Quality Reporting (2019) Depression/Bipolar (159/160/161/177) PHQ-9: Total score: 9 Results Reviewed Results Reviewed: XR PELVIS 09/29/23 CLINICAL INFORMATION: Pain. COMPARISON: MR left hip 04/26/2021. TECHNIQUE: AP view of the pelvis. FINDINGS: Evaluation is very limited due to patient body habitus and positioning. There is severe, end-stage arthrosis of the left hip with bone in bone contact and deformity of the superolateral aspect of the left femoral head. There is moderate degenerative osteoarthritis of the right hip with joint space narrowing and subcortical sclerosis. SI joints are symmetric and pelvic rami and pubic symphysis are maintained. IMPRESSION: Limited radiographic examination. Severe, end-stage arthrosis of the left hip with suggestion of avascular necrosis of the femoral head. Recommend further evaluation with an MRI of the left hip. Assessment & Plan Assessment & Plan (1) Avascular necrosis of bone of left hip: Code(s): M87.052 - Idiopathic aseptic necrosis of left femur Category: Medical (2) Chronic pain syndrome: Code(s): G89.4 - Chronic pain syndrome Category: Medical (3) Lumbar post-laminectomy syndrome: Code(s): M96.1 - Postlaminectomy syndrome, not elsewhere classified Category: Medical Plan Discussed interventional treatments with patient through our office. Patient is hesitant towards injections or procedures but will consider femoral versus sciatic nerve block for potential Sprint PNS trial for chronic left hip pain. Informational brochure provided to patient and family to review. Patient declined neuromodulation with SCS or ITDD trial or implants for chronic low back pain with history of multiple back surgeries. I have informed patient and family that I do not offer opioid prescribing at this time. After a long discussion today with patient and his family, it was determined that there was a continued need to continue palliative chronic opioid prescribing. We reviewed opioid risks and benefits with the patient. MassPAT was reviewed and is consistent with his history. Patient agreed to have the UDS performed immediately after this appointment and will follow up with Dr. Lopez in 2 weeks for UDS review and potential entrance into opioid program as well as left hip injection discussion. Patient also requests referral to Dr. Rucker at [facility] due to concerns of current opioids refill due in 2.5 weeks. He reports recent recommendation to Suboxone clinic which he declined due to previous ineffective methadone trial in the past. All questions and concerns have been answered and patient agreed with the treatment plan. Follow-up in 2 weeks for UDS review and sooner as needed. Orders: Referrals Physiatry Referral G89.4 - Chronic pain syndrome, M87.052 - Idiopathic aseptic necrosis of left femur, M96.1 - Postlaminectomy syndrome, not elsewhere classified Coding Level of Care Code New Pt Level 4 (03744) Complex EM visit Add On G2211 Diagnoses Avascular necrosis of bone of left hip M87.052 Chronic pain syndrome G89.4 Lumbar post-laminectomy syndrome M96.1 PHQ-9 Over the last 2 weeks, how often have you been bothered by any of the following problems? 1. Little interest or pleasure in doing things: more than half the days 2. Feeling down, depressed, or hopeless: more than half the days 3. Trouble falling or staying asleep, or sleeping too much: not at all 4. Feeling tired or having little energy: more than half the days 5. Poor appetite or overeating: several days 6. Feeling bad about yourself - or that you are a failure or have let yourself or your family down: several days 7. Trouble concentrating on things, such as reading the newspaper or watching television: several days 8. Moving or speaking so slowly that other people could have noticed. Or the opposite - being so fidgety or restless that you have been moving around a lot more than usual: not at all 9. Thoughts that you would be better off or of hurting yourself in some way: not at all Total score: 9 Depression Screening Interpretation: Positive Depression Screening Follow-up: Existing condition Depression Screening Done: Yes 08312 - PHQ-9 Billing: Yes Source: Developed by Drs. Deep Salguero, Marixa Aranda, Damon Foster and colleagues, with an educational mary from [email or web address].
[2024-02-10 10:24] VITALS: BP 137/68; PULSE 85; O2SAT 95; BMI 55.2
== END 2024-02-10 11:22 | disposition home or self-care (01) ==
PROVIDERS: PCP Family Medicine; Visit Provider Nurse Practitioner Family
DX: M87.052 Idiopathic aseptic necrosis of left femur (principal); G89.4 Chronic pain syndrome; M96.1 Postlaminectomy syndrome, not elsewhere classified
CPT/HCPCS: 99204; G2211

== ENCOUNTER → 2024-02-10 10:14 | Outpatient (BNVA) | payer OTHER, SELFPAY | PROVIDERS: PCP Family Medicine; Visit Provider Nurse Practitioner Family | DX: M85.052 Fibrous dysplasia (monostotic), left thigh (principal); M87.052 Idiopathic aseptic necrosis of left femur; G89.4 Chronic pain syndrome; Z79.891 Long term (current) use of opiate analgesic | CPT/HCPCS: 99202 ==

== ENCOUNTER 2024-02-25 09:53 | Outpatient (AMB) | payer OTHER, SELFPAY ==
--- NOTE | 2024-02-25 09:59 | MHC.OFFVIS ---
Vital Signs 02/25/24 10:16 Height 5 ft 6 in Weight 342 lb BMI 55.2 BP 138/68 Blood Pressure Location Lt radial Position Sitting Respiration 18 Pulse 84 Pulse Source Pulse Oximeter Pulse Oximetry (%) 93 Oxygen Delivery Method Room Air Intake Visit Reasons: UDS Review Intake Note: Patient comes in to review UDS results. He is accompanied by sister Lavern and SUPPORT CLERK Elinor. Reports pain 07/29. Allergies No Known Allergies Allergy (Verified 02/25/24 10:17) HPI Comments Details: Jonny is very pleasant 64 years old gentleman who presents in this office with complaints on chronic debilitating 910 to 10 pain syndrome. The pain diagnoses are left hip avascular necrosis and severe arthritis as well as postlaminectomy syndrome of the lumbar spine. He is here with the intention to start chronic opioid therapy in this office however he is interested in interventional pain management. The assessment was performed today, he is currently on rather elevated doses of the opioid medications. I explained to him that I will not be able to prescribe 60 mg of continuous oxycodone and 10 mg of oxycodone p.r.n. on demand I would have to taper these dose down to more acceptable levels. His PHQ-9 score is equal to 8. The opioid addiction risk score is equal to 21. Total score is equal to 29. Therefore he is high-risk for opioid addiction and implication of this assessment was explained to the patient. Information on chronic opioid therapy was carefully explained to the patient. Informed consent for the treatment of chronic opioid therapy was carefully explained to the patient. The patient has signed agreement for chronic opioid therapy as well as consent and information page. Need for careful monitoring of the opioid intake was explained to the patient. Pill count regular and random as well as UDS regular and random were carefully explained to the patient with all the implications on his personal life. We agreed today that I will start him on 7 pills of oxycodone 10 mg presentation to taper this medication down. Next month I will prescribe him 6 pills of oxycodone 10 mg a day. For the tapering down might be necessary provided for the evaluation is needed. I personally evaluated his bilateral hips on the pelvis x-ray on the images there is severe very advanced [id number] arthritis of the left hip as well as avascular necrosis of the left hip joint. There is very advanced although not as severe osteoarthritis on the right. 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 No natural teeth Back pain Back pain Arthritis Morbidly obese Fatty liver History of cirrhosis of liver Avascular necrosis Hemochromatosis COPD (chronic obstructive pulmonary disease) NICOLE on CPAP Surgical History Hx of esophagogastroduodenoscopy Hx of colonoscopy [place] teeth extracted History of surgery History of back surgery (~1997) H/O discectomy (~1997) Family History Maternal Grandfather Heart attack Brother Heart attack Social History Household Members: None Housing: Apartment Are you a primary primary care md to a significant other at home: No Do you presently have visiting nurse or other home services: Yes (SUPPORT CLERK 37.5 hours M-F, 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) 75 years or older and lives alone: No Patient Tobacco Use Status: Former Tobacco user Tobacco use type: Cigarette service: No Current occupational status: unemployed Cognitive needs: No Hearing needs: No Vision needs: No Review of Systems Const All systems reviewed & are unremarkable except as noted in HPI and below Physical Exam Vital Signs: Last Vital Signs Pulse 84 02/25/24 10:16 Resp 18 02/25/24 10:16 BP 138/68 02/25/24 10:16 Pulse Ox 93 02/25/24 10:16 Oxygen Delivery Method Room Air 02/25/24 10:16 BMI result Body Mass Index 55.2 General: Appears afebrile. Morbidly obese. Alert and oriented. Mood and affect appropriate. Follows and participates in conversation appropriately. Respiratory effort is unlabored. No cough. Able to transition from sit to stand with assistance. Patient arrived via W/C, reports minimal ambulation due to left hip and back pain. Back/Spine/Pelvis Cervical Spine: loss of normal cervical lordosis, cervical muscular tenderness, pain with cervical ROM and No Cervical spine tenderness Thoracic/Lumbar Spine: thoracic and lumbar spine normal to inspection, Thoracic/lumbar spine scar(s), Lasegue's sign negative, straight leg raise negative bilaterally, pain with thoraco-lumbar ROM, thoraco-lumbar ROM limited, No thoracic spinal tenderness and lumbar spinal tenderness (L4-S1) Sacroiliac joints: bilaterally tender to palpation Extrem General: Yes no calf tenderness, No cyanosis and Yes edema (BLE +1-+2 nonpitting edema) Left lower extremity: hip/thigh (limited ROM due to pain and body habitus. +groin pain with I/E rotations) Details: tenderness Location: of the hip Location: posterolaterally and over the great trochanter and crepitus; no swelling, no ecchymosis and no unusual warmth Results Reviewed Results Reviewed: XR PELVIS 09/29/23 CLINICAL INFORMATION: Pain. COMPARISON: MR left hip 04/26/2021. TECHNIQUE: AP view of the pelvis. FINDINGS: Evaluation is very limited due to patient body habitus and positioning. There is severe, end-stage arthrosis of the left hip with bone in bone contact and deformity of the superolateral aspect of the left femoral head. There is moderate degenerative osteoarthritis of the right hip with joint space narrowing and subcortical sclerosis. SI joints are symmetric and pelvic rami and pubic symphysis are maintained. IMPRESSION: Limited radiographic examination. Severe, end-stage arthrosis of the left hip with suggestion of avascular necrosis of the femoral head. Recommend further evaluation with an MRI of the left hip. Assessment & Plan Assessment & Plan (1) Avascular necrosis of bone of left hip: Code(s): M87.052 - Idiopathic aseptic necrosis of left femur Category: Medical (2) Chronic pain syndrome: Code(s): G89.4 - Chronic pain syndrome Category: Medical (3) Lumbar post-laminectomy syndrome: Code(s): M96.1 - Postlaminectomy syndrome, not elsewhere classified Category: Medical Plan Inferior interventional treatments was briefly discussed today again the patient will be accepted to our chronic opioid program with above-stated reservations. The patient will be also carefully monitored since his doses of the opioids are elevated. His UDS is positive for the cannabis THC and next time he is here for the UDS results evaluation he would need to present us the receipts from the dispensary. We agreed that I will start him on oxycodone 10 mg q.3 hours up to 7 pills a day with intention to taper this medication down to 6 and possibly down to 5 pills of oxycodone 10 mg. Currently he is on 70 mg of oxycodone/OxyContin together. His assessment score is total of 29 demonstrating high-risk of opioid addiction. Implication of the scoring was discussed with the patient. Chronic pill count very carefully was discussed with the patient. Chronic UDS carefully discussed with the patient. The time considerations when the random pill count or random UDS will be declared were carefully explained to this patient. One day worth deficit of the total pill count as the cause of termination was explained to the patient. My recommendations were to the patient that he always presents in this office with excess of the medications in his possession. Careful storing of the medication and avoidance of the spread of the medication was explained to the patient. Avoidance of acceptance of the medications from different other providers was explained to the patient with exception on when patient is admitted into the health care facility. Naloxone will be prescribed to the patient the relatives were present in the office during this discussion and the action of naloxone and emergency actions were explained to the family members. Medications: New oxycodone Partial Fill upon patient request. Try to decrease total number of pills to 6 pills a day 10 mg PO .every 3 hours 30 days PRN 210 tabs 0RF pain MDD 7pills a day naloxone 4 mg/actuation spray 1 dose into ONE nostril; alternate nostrils w each dose until help arrives 4 mg intranasal Q2M 1 day PRN 2 ea 8RF opioid overdose Patient Instructions: I here by testify that I spent 60 minutes in conversation with this patient as well as planning his care, evaluating prior diagnostic studies and records and organizing this note. Coding Level of Care Code Est Pt Level 5 (50939) Diagnoses Avascular necrosis of bone of left hip M87.052 Chronic pain syndrome G89.4 Lumbar post-laminectomy syndrome M96.1
[2024-02-25 10:16] VITALS: BP 138/68; PULSE 84; RESP 18; O2SAT 93; BMI 55.2
== END 2024-02-25 11:05 | disposition home or self-care (01) ==
LOC: HO.PMC 09:53
PROVIDERS: PCP Family Medicine; Visit Provider Anesthesiology
DX: G89.4 Chronic pain syndrome (principal); M96.1 Postlaminectomy syndrome, not elsewhere classified
CPT/HCPCS: 99215

== ENCOUNTER → 2024-02-25 09:53 | Outpatient (BNVA) | payer OTHER, SELFPAY | PROVIDERS: PCP Family Medicine; Visit Provider Anesthesiology | DX: M87.052 Idiopathic aseptic necrosis of left femur (principal); M96.1 Postlaminectomy syndrome, not elsewhere classified; G89.4 Chronic pain syndrome | CPT/HCPCS: 99212 ==

== ENCOUNTER 2024-03-11 09:46 | Outpatient (AMB) | payer OTHER, SELFPAY ==
--- NOTE | 2024-03-11 09:55 | A.OFFVIS_ITS ---
Vital Signs 03/11/24 11:10 Height 5 ft 6 in Weight 342 lb BMI 55.2 BP 131/66 Blood Pressure Location Lt brachial Position Sitting Respiration 18 Pulse 89 Pulse Source Pulse Oximeter Pulse Oximetry (%) 97 Oxygen Delivery Method Room Air Intake Visit Reasons: 2 WEEK OPIOID FOLLOW UP Intake Note: Patient comes in for pill count. Presented with 180 tablets and should have 103 tablets. Which he took last this morning at 8 am. Patient reports pain level today of 5/10. Allergies No Known Allergies Allergy (Verified 03/11/24 11:13) HPI Comments Details: Jonny is back in my office after delay. He reported to us that he was admitted t [facility] and after that to rehab and that is why he missed an appointment. However he failed to disclose to us that he was given large doses of the opioid medications to take home by this facility. 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 Because he was in the hospital he did not take any of his opioid medications I prescribed to him last time. He still has 180 pills in his possession. We will destroy the medications were given to him by the rehab. This is precautionary measure. We destroyed it and documented in the chart. I will see him in 3 weeks and we will perform pill count. His supposed to take 6 pills a day. Prior: c/o chronic debilitating 12/29 to 01/28 pain syndrome. The pain diagnoses are left hip avascular necrosis and severe arthritis as well as postlaminectomy syndrome of the lumbar spine. He is here with the intention to start chronic opioid therapy in this office however he is interested in interventional pain management. The assessment was performed today, he is currently on rather elevated doses of the opioid medications. I explained to him that I will not be able to prescribe 60 mg of continuous oxycodone and 10 mg of oxycodone p.r.n. on demand I would have to taper these dose down to more acceptable levels. His PHQ-9 score is equal to 8. The opioid addiction risk score is equal to 21. Total score is equal to 29. Therefore he is high-risk for opioid addiction and implication of this assessment was explained to the patient. Information on chronic opioid therapy was carefully explained to the patient. Informed consent for the treatment of chronic opioid therapy was carefully explained to the patient. The patient has signed agreement for chronic opioid therapy as well as consent and information page. Need for careful monitoring of the opioid intake was explained to the patient. Pill count regular and random as well as UDS regular and random were carefully explained to the patient with all the implications on his personal life. We agreed today that I will start him on 7 pills of oxycodone 10 mg presentation to taper this medication down. Next month I will prescribe him 6 pills of oxycodone 10 mg a day. For the tapering down might be necessary provided for the evaluation is needed. I personally evaluated his bilateral hips on the pelvis x-ray on the images there is severe very advanced [id number] arthritis of the left hip as well as avascular necrosis of the left hip joint. There is very advanced although not as severe osteoarthritis on the right. [facility] Medical History (Updated 02/10/24 @ 11:03 by JOHANNA Marie) Chronic pain syndrome Portal hypertensive gastropathy Depression Anxiety Iron overload syndrome Internal hemorrhoids Diverticulosis Hx of esophageal varices detention prescription opiate use No natural teeth Back pain Back pain Arthritis Morbidly obese Fatty liver History of cirrhosis of liver Avascular necrosis Hemochromatosis COPD (chronic obstructive pulmonary disease) NICOLE on CPAP Surgical History Hx of esophagogastroduodenoscopy Hx of colonoscopy [place] teeth extracted History of surgery History of back surgery (~1997) H/O discectomy (~1997) Family History Maternal Grandfather Heart attack Brother Heart attack Social History Household Members: None Housing: Apartment Are you a primary intensive care specialist to a significant other at home: No Do you presently have visiting nurse or other home services: Yes ([employer] 37.5 hours M-F, 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) 75 years or older and lives alone: No Patient Tobacco Use Status: Former Tobacco user Tobacco use type: Cigarette service: No Current occupational status: unemployed Cognitive needs: No Hearing needs: No Vision needs: No Review of Systems Const All systems reviewed & are unremarkable except as noted in HPI and below Physical Exam Vital Signs: Last Vital Signs Pulse 89 03/11/24 11:10 Resp 18 03/11/24 11:10 BP 131/66 03/11/24 11:10 Pulse Ox 97 03/11/24 11:10 Oxygen Delivery Method Room Air 03/11/24 11:10 BMI result Body Mass Index 55.2 General: Appears afebrile. Morbidly obese. Alert and oriented. Mood and affect appropriate. Follows and participates in conversation appropriately. Respiratory effort is unlabored. No cough. Able to transition from sit to stand with assistance. Patient arrived via W/C, reports minimal ambulation due to left hip and back pain. Back/Spine/Pelvis Cervical Spine: loss of normal cervical lordosis, cervical muscular tenderness, pain with cervical ROM and No Cervical spine tenderness Thoracic/Lumbar Spine: thoracic and lumbar spine normal to inspection, Thoracic/lumbar spine scar(s), Lasegue's sign negative, straight leg raise negative bilaterally, pain with thoraco-lumbar ROM, thoraco-lumbar ROM limited, No thoracic spinal tenderness and lumbar spinal tenderness (L4-S1) Sacroiliac joints: bilaterally tender to palpation Extrem General: Yes no calf tenderness, No cyanosis and Yes edema (BLE +1-+2 nonpitting edema) Left lower extremity: hip/thigh (limited ROM due to pain and body habitus. +groin pain with I/E rotations) Details: tenderness Location: of the hip Location: posterolaterally and over the great trochanter and crepitus; no swelling, no ecchymosis and no unusual warmth Assessment & Plan Assessment & Plan (1) Avascular necrosis of bone of left hip: Code(s): M87.052 - Idiopathic aseptic necrosis of left femur Category: Medical (2) Chronic pain syndrome: Code(s): G89.4 - Chronic pain syndrome Category: Medical (3) Lumbar post-laminectomy syndrome: Code(s): M96.1 - Postlaminectomy syndrome, not elsewhere classified Category: Medical Plan Discussion of his acceptance of the medication from rehab facility is as above. He still has 180 pills in his possession. His supposed to take 6 pills a day. His assessment score is total of 29 demonstrating high-risk of opioid addiction. This is high risk for opioid addiction. Implication of the scoring was discussed with the patient. Chronic pill count very carefully was discussed with the patient. Chronic UDS carefully discussed with the patient. The time considerations when the random pill count or random UDS will be declared were carefully explained to this patient. One day worth deficit of the total pill count as the cause of termination was explained to the patient. My recommendations were to the patient that he always presents in this office with excess of the medications in his possession. Careful storing of the medication and avoidance of the spread of the medication was explained to the patient. Avoidance of acceptance of the medications from different other providers was explained to the patient with exception on when patient is admitted into the health care facility. Narcan was prescribed to this patient 02/25/2024 Next appointment in 3 weeks. Coding Level of Care Code Est Pt Level 3 (36154) Diagnoses Avascular necrosis of bone of left hip M87.052 Chronic pain syndrome G89.4 Lumbar post-laminectomy syndrome M96.1
[2024-03-11 11:10] VITALS: BP 131/66; PULSE 89; RESP 18; O2SAT 97; BMI 55.2
== END 2024-03-11 10:39 | disposition home or self-care (01) ==
PROVIDERS: PCP Family Medicine; Visit Provider Anesthesiology
DX: M87.052 Idiopathic aseptic necrosis of left femur (principal); G89.4 Chronic pain syndrome
CPT/HCPCS: 99213

== ENCOUNTER → 2024-03-11 09:46 | Outpatient (BNVA) | payer OTHER, SELFPAY | PROVIDERS: PCP Family Medicine; Visit Provider Anesthesiology | DX: Z51.81 Encounter for therapeutic drug level monitoring (principal); F11.20 Opioid dependence, uncomplicated; M87.052 Idiopathic aseptic necrosis of left femur; M96.1 Postlaminectomy syndrome, not elsewhere classified; G89.4 Chronic pain syndrome | CPT/HCPCS: 99212 ==

== ENCOUNTER 2024-03-22 09:53 | Outpatient (AMB) | payer OTHER, SELFPAY ==
[2024-03-22 09:55] VITALS: BP 134/82; PULSE 96; O2SAT 95
--- NOTE | 2024-03-22 09:55 | A.OFFPC_ITS ---
Vital Signs 03/22/24 09:55 Height 5 ft 6 in BMI Reason not done Patient refused/unable BP 134/82 Blood Pressure Location Lt brachial Position Sitting Pulse 96 Pulse Source Pulse Oximeter Pulse Oximetry (%) 95 Oxygen Delivery Method Room Air Intake Visit Reasons: [facility] 03/09 Intake Note: Patient is here for hospital discharge follow up. Patient was discharged from [facility] on 03/09 Chicken Dresser Required: No Allergies nystatin Adverse Reaction (Mild, Verified 03/22/24 10:02) swelling Medication List - Last Reconciled 03/22/24 by Dalia Harmon PA-C albuterol sulfate 90 mcg/actuation 2 puffs inhalation Q4-6H PRN 60 days albuterol sulfate 2.5 mg (0.5 mL) inhalation Q20M aspirin 81 mg PO DAILY atorvastatin (Lipitor) 10 mg PO BEDTIME cholecalciferol (vitamin D3) (Vitamin D3) 50 mcg PO DAILY furosemide 40 mg PO DAILY multivitamin 1 tab PO DAILY naloxone 4 mg/actuation 4 mg intranasal Q2M PRN 1 day nebulizers (Aeroneb Go Nebulizer) As directed oxycodone 10 mg PO .every 3 hours PRN 30 days MDD 7pills a day spironolactone 25 mg PO BID tamsulosin 0.4 mg PO DAILY walker Folding Front wheeled walker zolpidem 10 mg PO BEDTIME PRN Tobacco use date assessed: 01/28/24 Fall risk assessment: No Falls in past year Last assessed Fall Risk: 03/22/24 Dental Screening Dental Screen Date: 01/28/24 HPI [facility] 03/09 HPI Details 64-year-old male with past medical histo ry of morbid obesity, cirrhosis, COPD, obstructive sleep apnea, hemochromatosis and coronary artery disease last seen 01/28/2024 coming in for follow up. In review of the notes patient has been following with [facility] management currently on oxycodone for pain management of avascular necrosis of the left hip. Patient was seen in [facility] and discharged to [facility] and is here for follow up. Patient follows with Dr. Sloan through [place] and has an appointment this month for follow up on his liver cirrhosis. He was initially admitted to [facility] for acute urinary retention and ascites. While admitted at [facility] patient had ascites drained and Cuello catheter was placed and patient was discharged to [facility]. He had an uneventful stay at [facility] and discharged home with strict fluid restrictions of less than 1600 mL per day and started on Lasix and Aldactone. He was discharged with Cuello catheter still present and has had to issues with this catheter since discharge both of which were addressed through visiting nurse and has had several tests for urinary t ract infections which were both negative. He has not yet followed up with his airplane electrical repairer after discontinuation of the statin [facility] Medical History (Updated 03/22/24 @ 10:28 by Dalia Harmon PA-C) Chronic pain syndrome Portal hypertensive gastropathy Depression Anxiety Iron overload syndrome Internal hemorrhoids Diverticulosis Hx of esophageal varices longterm prescription opiate use No natural teeth Back pain Back pain Arthritis Morbidly obese Fatty liver History of cirrhosis of liver Avascular necrosis Hemochromatosis COPD (chronic obstructive pulmonary disease) NICOLE on CPAP Surgical History Hx of esophagogastroduodenoscopy Hx of colonoscopy [place] teeth extracted History of surgery History of back surgery (~1997) H/O discectomy (~1997) Family History Maternal Grandfather Heart attack Brother Heart attack Social History Household Members: None Housing: Apartment Are you a primary career technical counselor to a significant other at home: No Do you presently have visiting nurse or other home services: Yes ([employer] 37.5 hours M-F, 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) Patient Tobacco Use Status: Former Tobacco user Tobacco use type: Cigarette service: No Current occupational status: unemployed Cognitive needs: No Hearing needs: No Vision needs: No Questionnaire PHQ-9 Over the last 2 weeks, how often have you been bothered by any of the following problems? 1. Little interest or pleasure in doing things: more than half the days 2. Feeling down, depressed, or hopeless: more than half the days 3. Trouble falling or staying asleep, or sleeping too much: not at all 4. Feeling tired or having little energy: more than half the days 5. Poor appetite or overeating: several days 6. Feeling bad about yourself - or that you are a failure or have let yourself or your family down: several days 7. Trouble concentrating on things, such as reading the newspaper or watching television: several days 8. Moving or speaking so slowly that other people could have noticed. Or the opposite - being so fidgety or restless that you have been moving around a lot more than usual: not at all 9. Thoughts that you would be better off or of hurting yourself in some way: not at all Total score: 9 Depression Screening Interpretation: Positive Depression Screening Follow-up: Existing condition Depression Screening Done: Yes 35755 - PHQ-9 Billing: Yes Source: Developed by Drs. Deep Salguero, Marixa Aranda, Damon Foster and colleagues, with an educational mary from [employer]. Thrive Questionnaire Date Thrive assessed: 01/13/24 I am a: Patient What is your living situation today?: I have a place to live, but I am worried about losing it in the future Within the past 12 months, did the food you bought not last and you didn't have the money to get more?: Never true Within the past 12 months, did you worry whether your food would run out before you got money to buy more?: Never true Do you have trouble paying for medicines?: No Do you have trouble getting transportation to medical appointments?: No Do you have trouble paying your heating and electricity bill?: No Do you have trouble taking care of your child, family member or friend?: No Do you have trouble with day-to-day activities such as bathing, preparing meals, shopping, managing finances, etc.?: Yes Are you currently unemployed and looking for a job?: No Are you interested in more education?: No Currently or been in a relationship where the following occur: No concerns repo rted THRIVE Score: 1 AUDIT C Alcohol Use Questionnaire (AUDIT-C) 1. How often do you have a drink containing alcohol?: Never 2. How many drinks containing alcohol do you have on a typical day when you are drinking?: 1 or 2 (0) 3. How often do you have six or more drinks on one occasion?: Never Total Score: 0 CHEPE-7 AMB Questionnaire CHEPE-7 Date CHEPE - 7 assessed: 01/28/24 Source: Developed by Drs. Deep Salguero, Marixa Aranda, Damon Foster and colleagues, with an educational mary from [employer]. Review of Systems Const Denies body aches, Denies chills, Denies fever(s), Denies headache(s) and Denies poor appetite Eyes Reports no additional complaints ENT Denies dysphagia, Denies dizziness, Denies headache(s) and Denies odynophagia Card Denies chest pain, Denies syncope, Denies edema, Denies irregular heart rhythm, Denies lightheadedness and Denies dyspnea Resp Denies cough and Denies dyspnea GI Denies abdominal pain, Denies constipation, Denies dysphagia, Denies diarrhea, Denies nausea, Denies odynophagia and Denies vomiting Details: Occasional blood in the urine, burning with urination Musc Reports no additional complaints and Denies abnormal gait Skin/Breast Reports system reviewed and no additional complaints, except as documented Neuro Denies abnormal gait, Denies dizziness, Denies syncope and Denies headache(s) Psych Reports no additional complaints Physical exam (Primary Care) Vital Signs: Last Vital Signs Pulse 96 03/22/24 09:55 BP 134/82 03/22/24 09:55 Pulse Ox 95 03/22/24 09:55 Oxygen Delivery Method Room Air 03/22/24 09:55 Tobacco/Smoking Status: Tobacco use Status Tobacco use date assessed 01/28/24 03/22/24 10:07 Patient Tobacco Use Status Former Tobacco user 03/22/24 10:07 Tobacco use type Cigarette 03/22/24 10:07 PHQ-9: PHQ-9 Score PHQ-9: Total score 9 03/22/24 10:07 Depression Screening Interpretation: Positive Depression Screening Follow-up: Existing condition Thrive Assessment: Date of Thrive Assessment Date Thrive assessed 01/13/24 03/22/24 10:07 Currently or been in a relationship where the following occur: No concerns reported Const General: cooperative, healthy appearing, comfortable and no acute distress Orientation/consciousness: patient oriented x3 HENMT Head: Yes normocephalic Ears: hearing grossly normal bilaterally General nose exam: Normal external nose present Eyes General: appearance normal, both eyes and all related structures Conjunctivae: conjunctivae normal Neck Neck: Yes full ROM and Yes no lymphadenopathy Resp Effort & Inspection: normal respiratory effort Auscultation: clear to auscultation bilaterally, no crackles, no rales, no rhonchi and no wheezes Cardio Rate: regular rate Rhythm: regular rhythm GI Inspection: Yes normal to inspection, No abdominal wall ecchymosis, No Abdominal wall edema, No striae and No caput medusae present Palpation (GI): Soft to palpation, not firm, nontender, no guarding, not rigid and No Ascites present Skin General skin exam: no rashes or lesions noted Neuro General: patient oriented x3 Gait exam (Neuro): Normal gait present Extrem General: Yes normal to inspection, Yes full ROM and No edema Psych Affect: normal affect Attitude: cooperative Insight: Good insight present (Psych) Judgement: Good judgement present (Psych) Coding Level of Care Code Est Pt Level 4 (13152) Diagnoses Depression F32.A Urinary retention R33.9 Diabetes mellitus E11.9 Atherosclerotic cardiovascular disease I25.10 NICOLE on CPAP G47.33 Hemochromatosis E83.119 History of cirrhosis of liver Z87.19 Morbidly obese E66.01 Avascular necrosis of bone of left hip M87.052 Additional Codes PHQ-9 - 56631 - PHQ-9 Billing: Yes ([id number]) Assessment & Plan Assessment & Plan (1) Depression: Code(s): F32.A - Depression, unspecified Category: Medical Plan: Referral placed to counselor today. Declines medication at this time (2) Urinary retention: Code(s): R33.9 - Retention of urine, unspecified Category: Medical Plan: Patient currently has Cuello catheter placed. He was established with outpatient visiting nurse who have been monitoring the catheter and testing for urinary tract infections which have been negative. He states the burning with urination and occasional blood in the urine has been present since the catheter has been placed and no infection has been found. His urine output has been documented and was reviewed today all were normal. Placed urgent referral to Urology she does not have follow up at this time. (3) Diabetes mellitus: Code(s): E11.9 - Type 2 diabetes mellitus without complications Category: Medical Plan: Decrease the amount of carbohydrates such as pasta, bread, rice, and potatoes and limit the amount of sweets. Although fruits are generally healthy they should be eaten in moderation as they are still high in sugar. Hemoglobin A1c goal of less than 7%. (4) Atherosclerotic cardiovascular disease: Code(s): I25.10 - Atherosclerotic heart disease of [place] coronary artery without angina pectoris Category: Medical Plan: Advised good control of blood pressure, cholesterol and blood sugars. Advised patient to reach out to airplane electrical repairer in regards to discontinuation of atorvastatin. (5) NICLOE on CPAP: Code(s): G47.33 - Obstructive sleep apnea (adult) (pediatric) Category: Medical Plan: Uses CPAP faithfully at least 4 hours a night and benefits from this therapy. (6) Hemochromatosis: Code(s): E83.119 - Hemochromatosis, unspecified Category: Medical Plan: Patient going for routine phlebotomy likely the cause of his liver cirrhosis. Continue to follow with Gastroenterology through [facility]. (7) History of cirrhosis of liver: Code(s): Z87.19 - Personal history of other diseases of the digestive system Category: Medical Plan: Continue to follow with Dr. Sloan through [facility]. Continue with recommended fluid restriction from [facility] and continue on current diuretics. (8) Morbidly obese: Code(s): E66.01 - Morbid (severe) obesity due to excess calories Category: Medical Plan: Healthy diet and regular exercise is encouraged. Ambulation significantly impaired due to avascular necrosis of the left hip. We will work on pain management to increase mobility. (9) Avascular necrosis of bone of left hip: Code(s): M87.052 - Idiopathic aseptic necrosis of left femur Category: Medical Plan: Advised patient to follow up with Orthopedics. Continue to follow with pain management. Plan This note was constructed using voice recognition software. While every effort has been made to ensure accuracy and tours hostess, still areas may have been included sometimes these areas may affect the content or meeting of the given symptoms. Total time spent caring for the patient today was 30 minutes. This includes time spent before the visit reviewing the chart, time spent during the visit, and time spent after the visit and documentation. Orders: Referrals Urology Referral R33.9 - Retention of urine, unspecified Counseling Referral F32.A - Depression, unspecified
== END 2024-03-22 10:58 | disposition home or self-care (01) ==
DX: E11.9 Type 2 diabetes mellitus without complications (principal); F32.A Depression, unspecified; E66.01 Morbid (severe) obesity due to excess calories; M87.052 Idiopathic aseptic necrosis of left femur; R33.9 Retention of urine, unspecified; I25.10 Atherosclerotic heart disease of native coronary artery without angina pectoris; G47.33 Obstructive sleep apnea (adult) (pediatric); E83.119 Hemochromatosis, unspecified; Z87.19 Personal history of other diseases of the digestive system

== ENCOUNTER → 2024-03-22 09:53 | Outpatient (BNVA) | payer OTHER, SELFPAY | DX: F32.A Depression, unspecified (principal); R33.9 Retention of urine, unspecified; E11.9 Type 2 diabetes mellitus without complications; I25.10 Atherosclerotic heart disease of native coronary artery without angina pectoris; G47.33 Obstructive sleep apnea (adult) (pediatric); E83.119 Hemochromatosis, unspecified; E66.01 Morbid (severe) obesity due to excess calories; M87.052 Idiopathic aseptic necrosis of left femur; Z87.19 Personal history of other diseases of the digestive system; Z71.3 Dietary counseling and surveillance | CPT/HCPCS: 96127; 99212 ==

== ENCOUNTER 2024-04-01 10:12 | Outpatient (AMB) | payer OTHER, SELFPAY ==
--- OUTSIDE RECORDS SUMMARY | 2024-04-01 10:22 | XMS_ITS | Continuity of Care Document ---
Author Organization [employer] [facility], [place] - [employer] Address [address] [place] [phone] Care Team Providers Care Decal Applier Name Role Phone HIM [facility] OTHER Assessment Encounter Date Assessment Date Assessment LastModified by Organization Details LastModified Time 03/18/2024 03/18/2024 service called for leaking alex catheter found 64 yom with hx HTN s/p aelx catheter for urinary retention x 3 wks prior c/o urine leaking around alex catheter denies other new sx seens 2d prior by service for similar UCx 2d prior NGTD VSS #Alex catheter adjusted otherwise return to primary team [email or web address] Not available 03/18/2024 20:13:39 Plan of Treatment Reminders Order Date Submit Date Provider Last Modified By Organization Details Last Modified Time Details Appointments None record ed. Lab None record ed. Referral None record ed. Procedures None record ed. Surgeries None record ed. Imaging None record ed. Medication Orders None record ed. Patient TargetsNo targets recorded. Patient InstructionsNo instructions recorded. Reason for Referral None Reported. Medical Equipment None Reported. Allergies Allergen ID Allergen Name Allergen Category Reaction Reaction Severity Criticality Documentation Date Start Date Code Code System Note Provider Name and Address Organization Details Recorded Time 67918 semagluti de medicatio n Not available Not available Not available 03/18/2024 RxNorm Not Available [facility] - production 18:27:38 Medications Name Sig Start Date Stop Date Status Note LastModified by Organization Details LastModified Time furosemide 40 mg tablet active Not Available Not Available Not Available atorvastatin 10 mg tablet TAKE 1 TABLET BY MOUTH AT BEDTIME active Not Available Not Available No t Available fluconazole 150 mg tablet active Not Available Not Available Not Available spironolacto ne 25 mg tablet active Not Available Not Available Not Available tamsulosin 0.4 mg capsule active Not Available Not Available Not Available cephalexin 500 mg capsule active Not Available Not Available Not Available zolpidem 10 mg tablet TAKE 1 TABLET BY MOUTH AT BEDTIME NEEDED FOR INSOMNIA active Not Available Not Available No t Available albuterol sulfate HFA 90 mcg/actuatio n aerosol inhaler INHALE 2 PUFFS BY MOUTH EVERY 4 TO 6 HOURS NEEDED FOR SHORTNESS OF BREATH OR WHEEZING active Not Available Not Available Not Available cyclosporine 0.05 % eye drops in a dropperette PLACE 1 DROP IN EACH EYE TWO TIMES A DAY active Not Available Not Available No t Available albuterol sulfate concentrate 2.5 mg/0.5 mL solution for nebulization USE 1 VIAL VIA NEBULIZER EVERY 20 MINUTES FOR UP TO 3 DOSES active Not Available Not Available No t Available oxycodone 10 mg tablet TAKE 1 TABLET BY MOUTH EVERY 3 HOURS NEEDED FOR PAIN MAX OF 7 TABLETS PER DAY TRY TO DECREASE TO 6 TABLER PER DAY FOR 30 DAYS active Not Available Not Available No t Available Trulicity 1.5 mg/0.5 mL subcutaneous pen injector ADMINISTER 1.5 MG UNDER THE SKIN 1 TIME A WEEK active Not Available Not Available No t Available OxyContin 30 mg tablet,crush resistant,ex tended release TAKE 1 TABLET BY MOUTH TWICE DAILY NEEDED FOR CHRONIC PAIN active Not Available Not Available No t Available naloxone 4 mg/actuation nasal spray INSTILL 1 SPRAY INTO ONE NOSTRIL EVERY 2 MINUTES NEEDED FOR OPIOD OVERDOSE active Not Available Not Available No t Available Trulicity 3 mg/0.5 mL subcutaneous pen injector INJECT 3 MG SUBCUTANEOU S ONE DAY A WEEK active Not Available Not Available No t Available Vitals Date Recorded Body height Oxygen saturation Oxygen saturation in Arterial blood by Pulse oximetry Body temperature Body weight Respiratory rate Heart rate Systolic blood pressure Diastolic blood pressure Provider Name and Address Organization Details Last Updated DateTime 4 172.72 cm 96 % 96 % 98 [degF] 723542 g 14 /min 77 /min 134 mm[Hg] 82 mm[Hg] Not Available [facility] - production 4 19:24:57 Social History None recorded. Functional Status None recorded. Mental Status None recorded. Family History Nothing Reported. Medical History No medical history recorded. Past Encounters Encounter ID Performer Location Encounter Start Date Encounter Closed Date Diagnosis/Indication Diagnosis SNOMED-CT Code Diagnosis ICD10 Code [id number] Aleksandar Manning MD [facility] [address] [place] [phone] 03/16/2024 13:37:07 03/16/2024 16:05:19 Mechanical complication of urethral indwelling catheter 90224426 T83.098A [id number] Elvi Pereira MD [facility] - [facility] [address] [place] [phone] 03/18/2024 19:24:55 03/19/2024 15:31:31 Complication of urinary catheter 811501261 T83.9XXA Health Concerns Section Related Observation LastModified by Organization Detai ls LastModified Time None Recorded Concern Status LastModified by Organization Details LastModified Time None Recorded Payers Encounter Date Sequence Insurance Name Policy Number Policy Pan Covered Member ID Pan Member ID Guarantor Name 03/18/2024 1 [facility] - DOS ON OR AFTER 2022 - DUAL ELIGIBLE - NURSING HOME OPTIONS AND ONE CARE (MEDICARE REPLACEMENT/ADV ANTAGE - HMO) Jonny Reed [id number] Jonny Burnett Derek Notes Date Note Type Note Provider Name and Address Organization Details Recorded Time 03/18/2024 text/html [facility] Nurse Triage Notes (Pedro Hansen): Reason For Request: Pt was seen on 03/17/24 for catheter related issues and notes having the same issues today, 03/18/24 Chief Complaints: Urinary catheter/nephrostom y tube problems PMH: Chronic Back Pain, Hypertension Comments: Pt. was advised to monitor reported s/s and seek emergency treatment if needed. Pt reports he was seen by [facility] on 03/17/24 - Alex cath changed - Bladder pain - Pt reports urinating around same - Urine is dark in color with no sediment or cloudiness. Denies blood in urine - Denies fever. See attached [facility] from 03/17/24: Called to evaluate this COLON 64 year old male at home for urine leakage around his alex catheter. On arrival pt sts he had this 16 Fr Alex catheter inserted 7 February after being diagnosed with fluid retention. He denies fever, chills, nausea, vomiting, change in urinary out put color or character. (+) lower extremity edema noted with compression stockings in place. Pt had a 16fr alex catheter inserted with dark yellow urine draining in collection bag (75cc noted urine output) without sediment or clouding noted. P Pt had immediate return of approximately 20cc dark yellow urine which was obtained for culture. ................... ................... ................... ................... ................... ................... ................... ........ Electronics Department Manager Note From Esa Francisco: Patient alert and oriented seated in chair. Patient complains of leakage around urethra. Patient reports alex catheter inserted times two days ago by [facility] personnel. Patient reports he noticed urine leaking at insertion site yesterday. Patient denies pain urination or any other complaints.Patient pink warm dry secondary exam unremarkable. Urine noted at urethra. Patient reports 1000 mL urine produced per day. Red, clear, no sediment or cloudiness noted in urine in Alex bag or tube. 10 cc sterile saline inserted into Alex balloon. Patient reports that strategy was successful at the hospital. Sticker to secure tube applied. [facility] advises culture taken times two days ago currently negative for growth.Patient encouraged to monitor site, contact [facility] daycare worker to help arrange urology referral, and call [facility] again if needed. Patient and caregiver demonstrates understanding of care and plan. Patient grateful for assistance. ................... ................... ................... ................... ................... ................... ................... ........ [facility] Consulted: Elvi Pereira ................... ................... ................... ................... ................... ................... ................... ........ Disposition: Fulfilled Elvi Pereira MD [address] [facility],[address], [place], [phone], [employer] 03/18/2024 20:14:22
--- OUTSIDE RECORDS SUMMARY | 2024-04-01 10:22 | XMS_ITS | Continuity of Care Document ---
Author Organization [employer] [place] [employer] Address [address] [place] [phone] Care Team Providers Care Relish Maker Name Role Phone HIM [facility] OTHER Assessment Encounter Date Assessment Date Assessment LastModified by Organization Details LastModified Time 03/16/2024 03/16/2024 Impression: Patient referred for malfunctioning urinary catheter. patient is 64yo/m who has had urinary catheter placed for 3 weeks after urinary retention. Believes was also treated for a UTI, unclear if he remains on any antibiotics at this time. Referral for [facility] today due to urine flowing around the urinary catheter. For medic in home patient is awake, alert, in no distress. No systemic symptoms of illness at this time, no abdominal pain, nausea/vomiting, fevers. Urinary catheter has urine draining around catheter but also small amount of fibrinous material, no irasema purulence. Appears to be malfunctioning catheter. Denies other ROS. Plan: Patient underwent urinary catheter change without complication. Triage note states on antibiotics currently, however patient is unaware of antibiotics at this time, believe he may have finished them. Urine dip with leuks and nitrites, no symptoms. Will send urine culture to followup, patient feels comfortable remaining at home and following up with his outpatient providers. Strict return precautions reviewed. Primary care, consider followup for recheck Disposition: We discussed the diagnostic uncertainty of home visits and the risk associated with this. In this case, the patient and I felt this to be an acceptable and reasonable amount of risk given the benefit of avoiding an ED visit. We discussed the need to seek care urgently/emergent ly in the setting of any new or worsening serious symptoms [email or web address] Not available 03/16/2024 14:15:01 Plan of Treatment Reminders Order Date Submit Date Provider Last Modified By Organization Details Last Modified Time Details Appointments None recorded. Lab culture, urine 2023 024 RACINE [facility], [address] [place] [place], [address], 4 10:05:56 urinalysis , dipstick 2023 024 rsullivan 84 [facility], [address] [place] [address], [phone], 4 14:11:30 Referral None recorded. Procedures None recorded. Surgeries None recorded. Imaging None recorded. Medication Orders None recorded. Patient TargetsNo targets recorded. Patient InstructionsNo instructions recorded. Reason for Referral None Reported. Results Created Date Observation Date Name Description Value Unit Range Abnormal Flag Note LastModifiedBy Organization Detail LastModifiedTime Result Notes None recorded. Medical Equipment None Reported. Allergies Allergen ID Allergen Name Allergen Category Reaction Reaction Severity Criticality Documentation Date Start Date Code Code System Note Provider Name and Address Organization Details Recorded Time 39255 semagluti de medicatio n Not available Not [...] No t Available Vitals Date Recorded Body temperature Respiratory rate Heart rate Oxygen saturation Oxygen saturation in Arterial blood by Pulse oximetry Systolic blood pressure Diastolic blood pressure Provider Name and Address Organization Details Last Updated DateTime 98.2 [degF] 20 /min 80 /min 95 % 95 % 164 mm[Hg] 80 mm[Hg] Not Available [facility] - production 13:37:09 Social History None recorded. Functional Status None recorded. Mental Status None recorded. Family History Nothing Reported. Medical History No medical history recorded. Past Encounters Encounter ID Performer Location Encounter Start Date Encounter Closed Date Diagnosis/Indication Diagnosis SNOMED-CT Code Diagnosis ICD10 Code [id number] Aleksandar Manning MD [facility] - [facility] [address] [place] [phone] 03/16/2024 13:37:07 03/16/2024 16:05:19 Mechanical complication of urethral indwelling catheter 77373243 T83.098A Health Concerns Section Related Observation LastModified by Organization Detai ls LastModified Time None Recorded Concern Status LastModified by Organization Details LastModified Time None Recorded Payers Encounter Date Sequence Insurance Name Policy Number Policy Pan Covered Member ID Pan Member ID Guarantor Name 03/16/2024 [address] [facility] - DOS ON OR AFTER 2022 - DUAL ELIGIBLE - [facility] OPTIONS AND ONE CARE (MEDICARE REPLACEMENT/ADV ANTAGE - HMO) Jonny Reed [id number] Jonny Reed Notes Date Note Type Note Provider Name and Address Organization Details Recorded Time 03/16/2024 text/html [facility] Nurse Triage Notes (EdnaunElsie): Reason For Request: pt has catheter that has slipped out of place Chief Complaints: Urinary catheter/nephrostomy tube problems PMH: Chronic Back Pain Comments: Additional PMH: Avascular necrosis of hip, water retention, multiple surgeries Patient has a new indwelling alex catheter 3 weeks ago. Urge to urinate and starting leaking around site approx 10 min. Denies any abdominal pain or hematuria. This happened once in the hospital and balloon has to be inflated more. Patient has a 16Fr alex catheter. Taking antibiotic for UTI currently. [facility] Organization Information for JenniferHarley Chris [employer] Name: [employer]? ? Address: [address] [place] [address], Internal Controls Analyst: Ryley XAVIER No.: [id number] [facility] POC Test Results from Harley Rodriguez Urine Dipstick (14:03:24) Urine leukocytes: 15 MIMA Urine nitrites: pos NIT Urine urobilinogen: .2 URO Urine protein: 30 PRO Urine pH: 5 pH Urine blood: +++ BLO Urine specific gravity: 1.030 SG Urine ketones: neg KET Urine bilirubin: 2++ EDWARDO Urine glucose: neg GLU Attachments uploaded as part of this test result can be found under Documents section. ..................... ..................... ..................... ..................... ..................... ..................... ............... [facility] Note From Harley Rodriguez: Called to evaluate this COLON 64 year old male at home for urine leakage around his alex catheter. On arrival pt sts he had this 16 Fr Alex catheter inserted 7 February after being diagnosed with fluid retention at [facility]. The catheter remained in place without issue until this morning. He denied trauma, pulling of the catheter, or manipulation of the catheter prior to the urine leakage. He denies fever, chills, nausea, vomiting, change in urinary out put color or character. He sts he was originally placed on antibiotics after catheter insertion, but hasnt had Abx since. His medications, hx, and allergy status were previously recorded.O/A to find this COLON morbidly obese male seated in recliner with home health aid at his side. He appeared in no acute distress. Upper airway clear with easy unlabored respirations and clear fluent speech. Abdominal pannus noted. Abdomen was round, soft, non-tender wt=ith small area of ecchymosis above umbilicus. Pt had good peripheral pulses with brisk cap refill. (+) lower extremity edema noted with compression stockings in place. Pt had a 16fr alex catheter inserted with dark yellow urine draining in collection bag (75cc noted urine output) without sediment or clouding noted. The catheter had dried secretions noted. Penis had thin white milky drainage noted at meatus. [facility] contacted (Dr Manning) and he was appraised of situation. He ordered a alex catheter change with Urine Culture obtained from this new catheter and to be sent to lab. Pt had fluid removed from inflation port on old catheter and it was noted that instead of sterile water, urine was drained from port. Approximately 12cc of urine was pulled from port until there was no other fluid removed. Gentle pressure was placed on alex with pt encouraged to notify staff of pain with this movement. There was no complaint of pain or pressure, and catheter was removed without incident. A new 16FR alex catheter was placed with aseptic technique. Pt had immediate return of approximately 20cc dark yellow urine which was obtained for culture. Pt tolerated procedure well without complaint. Pt informed urine sample would be sent to lab and based on analysis he would be contacted with further treatment plan and if indicated recommendations for antibiotics. He verbalized an understanding of this, and had no questions for staff prior to concluding visit. ..................... ..................... ..................... ..................... ..................... ..................... ............... [facility] Consulted: Aleksandar Manning ..................... ..................... ..................... ..................... ..................... ..................... ............... Disposition: Fulfilled Aleksandar Manning MD [address] [facility],[address] [facility], [place], [phone], [employer] 03/16/2024 15:02:53
--- OUTSIDE RECORDS SUMMARY | 2024-04-01 10:22 | XMS_ITS | Data Portability ---
Author Organization [employer], Wy in - Envia Lá Address [address] [place] [id number] Care Team Providers Care Cloth Edge Singer Name Role Phone HIM [facility] OTHER Assessment [...] of any new or worsening serious symptoms [email or web address] Not available 03/16/2024 14:15:01 03/18/2024 03/18/2024 service called for leaking alex catheter found 64 yom with hx HTN s/p alex catheter for urinary retention x 3 wks [...] None recorded. Lab culture, urine 2023 024 WARTHEN [facility], [address] [facility], [place], [address], 10:05:56 urinalysis , dipstick 2023 024 rsullivan 84 [facility], [address] [place] [address], [place], [address], 14:11:30 Referral None recorded. Procedures None recorded. Surgeries None recorded. Imaging None recorded. Medication Orders None recorded. Patient TargetsNo targets recorded. Patient InstructionsNo instructions recorded. Reason for Referral None Reported. Results Created Date Observation Date Name Description Value Unit Range Abnormal Flag Note LastModifiedBy Organization Detail LastModifiedTime 03/16/2003/19/2024 URINE CULTU RE,CO MPREH ENSIV E urine culture,comp rehensive Final report Not Available [facility] ([facility]) [address] [facility], [place], [address], 03/19/2024 10:05:46 03/16/2003/19/2024 URINE CULTU RE,CO MPREH ENSIV E result 1 COMMEN T No growt h in 36 - 48 hours . Not Available [facility] ([facility]) [address] [facility], [place], [address], 03/19/2024 10:05:46 Result Notes None recorded. Medical Equipment None Reported. Allergies Allergen ID Allergen Name Allergen Category Reaction Reaction Severity Criticality Documentation Date Start Date Code Code System Note Provider Name and Address Organization Details Recorded Time 35620 semagluti de medicatio n Not available Not [...] Address Organization Details Last Updated DateTime 4 98.2 [degF] 20 /min 80 /min 95 % 95 % 164 mm[Hg] 80 mm[Hg] Not Available [facility] - production 13:37:09 Date Recorded Body height Oxygen saturation Oxygen saturation in Arterial blood by Pulse oximetry Body temperature Body weight Respiratory rate Heart rate Systolic blood pressure Diastolic blood pressure Provider Name and Address Organization Details Last Updated DateTime 4 172.72 cm 96 % 96 % 98 [degF] 120914 g 14 /min 77 /min 134 mm[Hg] 82 mm[Hg] Not Available [facility] 19:24:57 Social History None recorded. Functional Status None recorded. Mental Status None recorded. Family History Nothing Reported. Medical History No medical history recorded. Past Encounters Encounter ID Performer Location Encounter Start Date Encounter Closed Date Diagnosis/Indication Diagnosis SNOMED-CT Code Diagnosis ICD10 Code [id number] Aleksandar Manning MD Main - [facility] [address] [place] [phone] 03/16/2024 13:37:07 03/16/2024 16:05:19 Mechanical complication of urethral indwelling catheter 59747148 T83.098A [id number] Elvi Pereira MD Main - [facility] [address] [place] [id number] 03/18/2024 19:24:55 03/19/2024 15:31:31 Complication of urinary catheter 055020015 T83.9XXA Health Concerns Section Related Observation LastModified by Organization Detai ls LastModified Time None Recorded Concern Status LastModified by Organization Details LastModified Time None Recorded Advance Directives Directive None Recorded Payers Encounter Date Sequence Insurance Name Policy Number Policy Pan Covered Member ID Pan Member ID Guarantor Name 03/16/2024 1 [facility] [employer] - DOS ON OR AFTER 2022 - DUAL ELIGIBLE - RETIREMENT OPTIONS AND ONE CARE (MEDICARE REPLACEMENT/ADV ANTAGE - HMO) Jonny Reed [id number] Jonny Reed 03/18/2024 1 [facility] [employer] - DOS ON OR AFTER 2022 - DUAL ELIGIBLE - RETIREMENT OPTIONS AND ONE CARE (MEDICARE REPLACEMENT/ADV ANTAGE - HMO) Jonny Reed [id number] Jonny Reed Notes Date Note Type Note Provider Name and Address Organization Details Recorded Time 03/16/2024 text/html [facility] Nurse Triage Notes (Elsie Sultana): Reason For Request: pt has catheter that [...] alex catheter. Taking antibiotic for UTI currently. Automatic Toe Laster Organization Information for Harley Rodriguez Business Legal Name: [employer]? ? Address: [address] [place] [id number], Cocoa Bean Roaster: Ryley Solorio MD CLIA No.: [id number] Automatic Toe Laster POC Test Results from Harley Rodriguez Urine [...] ..................... ..................... ..................... ..................... ..................... ..................... ............... Automatic Toe Laster Note From Harley Rodriguez: Called to evaluate [...] thin white milky drainage noted at meatus. [facility] contacted (Dr Manning) and he was appraised [...] ..................... ..................... ..................... ..................... ..................... ..................... ............... [facility] Consulted: Aleksandar Manning ..................... ..................... ..................... ..................... ..................... ..................... ............... Disposition: Fulfilled Aleksandar Manning MD [address] [place] [address],[address], [place], [phone], [facility] 03/16/2024 15:02:53 03/18/2024 text/html [facility] Nurse Triage Notes (Pedro Hansen): Reason For Request: Pt was seen on 03/17/24 for catheter related issues and notes having the same issues today, 03/18/24 Chief Complaints: Urinary catheter/nephrostomy tube problems PMH: Chronic Back Pain, Hypertension Comments: Pt. was advised to monitor reported s/s and seek emergency treatment if needed. Pt reports he was seen by [facility] on 03/17/24 - Alex cath changed - [...] yellow urine which was obtained for culture. ..................... ..................... ..................... ..................... ..................... ..................... ............... Automatic Toe Laster Note From Esa Francisco: Patient alert and oriented seated in chair. Patient complains of leakage around urethra. Patient reports [facility]lex [facility]. Patient reports he noticed urine leaking [...] the hospital. Sticker to secure tube applied. [facility] advises culture taken times two days ago currently negative for growth.Patient encouraged to monitor site, contact [facility] or medical to help arrange urology referral, and call [facility] again if needed. Patient and caregiver demonstrates understanding of care and plan. Patient grateful for assistance. ..................... ..................... ..................... ..................... ..................... ..................... ............... [facility] Consulted: Elvi Pereira ..................... ..................... ..................... ..................... ..................... ..................... ............... Disposition: Fulfilled Elvi Pereira MD [address] [facility],[address], [place], [address], [facility], [facility] 03/18/2024 20:14:22
[2024-04-01 10:48] VITALS: BP 130/61; PULSE 89; O2SAT 96; BMI 52.8
--- NOTE | 2024-04-01 10:48 | A.OFFVIS_ITS ---
Vital Signs 04/01/24 10:48 Height 5 ft 6 in Weight 327 lb BMI 52.8 BP 130/61 Blood Pressure Location Lt brachial Position Sitting Pulse 89 Pulse Oximetry (%) 96 Oxygen Delivery Method Room Air Intake Visit Reasons: Medication Count Allergies nystatin Adverse Reaction (Mild, Verified 04/01/24 10:49) swelling atorvastatin Adverse Reaction (Verified 04/01/24 10:49) Diarrhea Medication List - Last Reconciled 04/01/24 by Carolyn Calzada, PRODUCT MANAGEMENT CONSULTANT albuterol sulfate 90 mcg/actuation 2 puffs inhalation Q4-6H PRN 60 days albuterol sulfate 2.5 mg (0.5 mL) inhalation Q20M aspirin 81 mg PO DAILY cholecalciferol (vitamin D3) (Vitamin D3) 50 mcg PO DAILY furosemide 40 mg PO DAILY multivitamin 1 tab PO DAILY naloxone 4 mg/actuation 4 mg intranasal Q2M PRN 1 day nebulizers (Aeroneb Go Nebulizer) As directed oxycodone 10 mg PO .every 3 hours PRN 30 days MDD 7pills a day rosuvastatin (Crestor) 5 mg PO DAILY spironolactone 25 mg PO BID tamsulosin 0.4 mg PO DAILY walker Folding Front wheeled walker zolpidem 10 mg PO BEDTIME PRN HPI Comments Details: Jonny is back in my office today for the pill count and pain medication refill. He reports his pain today 08/28. He denies side effects of the opioid medications. He denies constipation. He reports that he received his prescription on 02/29/2024. Therefore his supposed to be out of the medications. He has 54 pills in his possession. So far it is reliable attitude to were the opioid medications. We agreed that he have enough of the medications cover him for the next 8 days, therefore I will prescribe his medications on 04/09/2024 He continues to take 6 pills of oxycodone day. The dose is not trivial. In the future we will discuss deescalation of the medication. He is wheelchair bound individual and he has indwelling urinary catheter. Prior: c/o chronic debilitating 12/29 to 01/28 pain syndrome. The pain diagnoses are left hip avascular necrosis and severe arthritis as well as postlaminectomy syndrome of the lumbar spine. He is here with the intention to start chronic opioid therapy in this office however he is interested in interventional pain management. The assessment was performed today, he is currently on rather elevated doses of the opioid medications. I explained to him that I will not be able to prescribe 60 mg of continuous oxycodone and 10 mg of oxycodone p.r.n. on demand I would have to taper these dose down to more acceptable levels. His PHQ-9 score is equal to 8. The opioid addiction risk score is equal to 21. Total score is equal to 29. Therefore he is high-risk for opioid addiction and implication of this assessment was explained to the patient. Information on chronic opioid therapy was carefully explained to the patient. Informed consent for the treatment of chronic opioid therapy was carefully explained to the patient. The patient has signed agreement for chronic opioid therapy as well as consent and information page. Need for careful monitoring of the opioid intake was explained to the patient. Pill count regular and random as well as UDS regular and random were carefully explained to the patient with all the implications on his personal life. We agreed today that I will start him on 7 pills of oxycodone 10 mg presentation to taper this medication down. Next month I will prescribe him 6 pills of oxycodone 10 mg a day. For the tapering down might be necessary provided for the evaluation is needed. I personally evaluated his bilateral hips on the pelvis x-ray on the images there is severe very advanced [id number] arthritis of the left hip as well as avascular necrosis of the left hip joint. There is very advanced although not as severe osteoarthritis on the right. [facility] Medical History (Updated 03/22/24 @ 10:28 by Dalia Harmon PA-C) Chronic pain syndrome Portal hypertensive gastropathy Depression Anxiety Iron overload syndrome Internal hemorrhoids Diverticulosis Hx of esophageal varices nursing home prescription opiate use No natural teeth Back pain Back pain Arthritis Morbidly obese Fatty liver History of cirrhosis of liver Avascular necrosis Hemochromatosis COPD (chronic obstructive pulmonary disease) NICOLE on CPAP Surgical History Hx of esophagogastroduodenoscopy Hx of colonoscopy [place] teeth extracted History of surgery History of back surgery (~1997) H/O discectomy (~1997) Family History Maternal Grandfather Heart attack Brother Heart attack Social History Household Members: None Housing: Apartment Are you a primary career development facilitator to a significant other at home: No Do you presently have visiting nurse or other home services: Yes (DESTATICIZER FEEDER 37.5 hours M-F, 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) 75 years or older and lives alone: No Patient Tobacco Use Status: Former Tobacco user Tobacco use type: Cigarette service: No Current occupational status: unemployed Cognitive needs: No Hearing needs: No Vision needs: No Review of Systems Const All systems reviewed & are unremarkable except as noted in HPI and below Physical Exam Vital Signs: Last Vital Signs Pulse 89 04/01/24 10:48 BP 130/61 04/01/24 10:48 Pulse Ox 96 04/01/24 10:48 Oxygen Delivery Method Room Air 04/01/24 10:48 BMI result Body Mass Index 52.8 General: Appears afebrile. Morbidly obese. Alert and oriented. Mood and affect appropriate. Follows and participates in conversation appropriately. Respiratory effort is unlabored. No cough. Able to transition from sit to stand with assistance. Patient arrived via W/C, reports minimal ambulation due to left hip and back pain. Back/Spine/Pelvis Cervical Spine: loss of normal cervical lordosis, cervical muscular tenderness, pain with cervical ROM and No Cervical spine tenderness Thoracic/Lumbar Spine: thoracic and lumbar spine normal to inspection, Thoracic/lumbar spine scar(s), Lasegue's sign negative, straight leg raise negative bilaterally, pain with thoraco-lumbar ROM, thoraco-lumbar ROM limited, No thoracic spinal tenderness and lumbar spinal tenderness (L4-S1) Sacroiliac joints: bilaterally tender to palpation Extrem General: Yes no calf tenderness, No cyanosis and Yes edema (BLE +1-+2 nonpitting edema) Left lower extremity: hip/thigh (limited ROM due to pain and body habitus. +groin pain with I/E rotations) Details: tenderness Location: of the hip Location: posterolaterally and over the great trochanter and crepitus; no swelling, no ecchymosis and no unusual warmth Assessment & Plan Assessment & Plan (1) Avascular necrosis of bone of left hip: Code(s): M87.052 - Idiopathic aseptic necrosis of left femur Category: Medical (2) Chronic pain syndrome: Code(s): G89.4 - Chronic pain syndrome Category: Medical (3) Lumbar post-laminectomy syndrome: Code(s): M96.1 - Postlaminectomy syndrome, not elsewhere classified Category: Medical Plan We decreased the doses of his opioid medications to 6 pills a day. It is 10 mg of oxycodone. For now I am going to continue with this amount of the medication although in the future we probably would need to discuss further deescalation of the medication doses. His assessment score is total of 29 demonstrating high-risk of opioid addiction. This is high risk for opioid addiction. Implication of the scoring was discussed with the patient. His medications will be prescribed on 04/09/24 Narcan was prescribed to this patient 02/25/2024 Next appointment in 1 month. Medications: New oxycodone Partial Fill upon patient request. 10 mg PO Q4H 30 days PRN 180 tabs 0RF pain Discontinued oxycodone Partial Fill upon patient request. Try to decrease total number of pills to 6 pills a day Discontinued Reason: Doctor's Order 10 mg PO .every 3 hours 30 days PRN 210 tabs 0RF pain MDD 7pills a day Coding Level of Care Code Est Pt Level 3 (88364) Diagnoses Avascular necrosis of bone of left hip M87.052 Chronic pain syndrome G89.4 Lumbar post-laminectomy syndrome M96.1
== END 2024-04-01 10:48 | disposition home or self-care (01) ==
PROVIDERS: PCP Family Medicine; Visit Provider Anesthesiology
DX: G89.4 Chronic pain syndrome (principal); M96.1 Postlaminectomy syndrome, not elsewhere classified
CPT/HCPCS: 99213

== ENCOUNTER → 2024-04-01 10:12 | Outpatient (BNVA) | payer OTHER, SELFPAY | PROVIDERS: PCP Family Medicine; Visit Provider Anesthesiology | DX: Z51.81 Encounter for therapeutic drug level monitoring (principal); F11.20 Opioid dependence, uncomplicated; M87.052 Idiopathic aseptic necrosis of left femur; M96.1 Postlaminectomy syndrome, not elsewhere classified; G89.4 Chronic pain syndrome | CPT/HCPCS: 99212 ==

== ENCOUNTER 2024-04-09 10:45 | Outpatient (AMB) | payer OTHER, SELFPAY ==
--- NOTE | 2024-04-09 00:07 | MHC.OFFVIS ---
Intake Visit Reasons: Cath removal Intake Note: New patient is present to establish care for Catheter removal and scrotum cellulitis Any Urology Medications: None Antibiotic Allergy: None Blood Thinner: Aspirin Family History: Bladder Cancer? No Prostate Cancer? No Patient Symptoms: Patient states he feels urges to urinate all the time and also feels burning. Job Honer Required: No Accompanied by: Handicapped Dependent Allergies nystatin Adverse Reaction (Mild, Verified 04/29/24 10:01) swelling atorvastatin Adverse Reaction (Verified 04/29/24 10:01) Diarrhea HPI Comments Details: 04/09/2024--Jonny is a new patient here for catheter removal. He is followed by pain management on chronic opioid therapy. Review of chart: PCP note-- 03/29/24--64-year-old male with past medical history of morbid obesity, cirrhosis, COPD, obstructive sleep apnea, hemochromatosis and coronary artery disease last seen 01/28/2024 coming in for follow up. In review of the notes patient has been following with [facility] pain management currently on oxycodone for pain management of avascular necrosis of the left hip. Patient was seen in [facility] and [facility] and is here for follow up. Patient follows with Dr. Sloan through [place] and has an appointment this month for follow up on his liver cirrhosis. He was initially admitted to [facility] for acute urinary retention and ascites. While admitted at [facility] patient had ascites drained and Alex catheter was placed and patient was discharged to the [facility]. He had an uneventful stay at the [facility] and discharged home with strict fluid restrictions of less than 1600 mL per day and started on Lasix and Aldactone. He was discharged with Alex catheter still present and has had to issues with this catheter since discharge both of which were addressed through visiting nurse and has had several tests for urinary tract infections which were both negative. Alex catheter changed today, left to gravity drainage, urine is cloudy will place on cipro. 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 prescription opiate use No natural teeth Back pain Back pain Arthritis Morbidly obese Fatty liver History of cirrhosis of liver Avascular necrosis Hemochromatosis COPD (chronic obstructive pulmonary disease) NICOLE on CPAP Surgical History Hx of esophagogastroduodenoscopy Hx of colonoscopy [place] teeth extracted History of surgery History of back surgery (~1997) H/O discectomy (~1997) Family History Maternal Grandfather Heart attack Brother Heart attack Social History Household Members: None Housing: Apartment Are you a primary physician locums urgent care to a significant other at home: No Do you presently have visiting nurse or other home services: Yes (ANESTHESIA ASSISTANT 37.5 hours M-F, 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) Patient Tobacco Use Status: Former Tobacco user Tobacco use type: Cigarette service: No Current occupational status: unemployed Cognitive needs: No Hearing needs: No Vision needs: No Review of Systems Const All systems reviewed & are unremarkable except as noted in HPI and below Reports no additional complaints Eyes Reports no additional complaints ENT Reports no additional complaints Card Reports no additional complaints Resp Reports no additional complaints GI Reports no additional complaints Reports as per HPI Musc Reports no additional complaints Skin/Breast Reports system reviewed and no additional complaints, except as documented Neuro Reports no additional complaints Psych Reports no additional complaints Endo Reports no additional complaints Ramon/Lymph Reports no additional complaints Aller/Immun Reports no additional complaints Physical Exam Const General: no acute distress Orientation/consciousness: patient oriented x3 HEENT Head: Yes normocephalic and Yes atraumatic Eyes Conjunctivae: conjunctivae normal Neck Neck: Yes normal visual inspection Chest Chest palpation & inspection: normal inspection of the chest Resp Effort & Inspection: normal respiratory effort GI Inspection: Yes normal to inspection Palpation (GI): Soft to palpation Other: alex catheter changed. Neuro General: patient oriented x3 Psych Appearance: grossly normal Affect: normal affect Assessment & Plan Assessment & Plan (1) Urinary retention: Code(s): R33.9 - Retention of urine, unspecified Category: Medical (2) UTI (urinary tract infection): Code(s): N39.0 - Urinary tract infection, site not specified Category: Medical Plan Catheter changed, cipro, fu voiding trial in 4 weeks Medications: New ciprofloxacin HCl 500 mg PO BID 14 tabs 0RF 7 days Patient Instructions: The patient had an opportunity to ask questions regarding treatment plan. The patient expressed understanding and agreement with the above treatment plan. The patient is aware they should contact our office by phone for worsening of their current condition or the appearance of new symptoms. Compliance is encouraged with any medications and followup testing that is ordered. It is a privilege to be allowed the opportunity to participate in the urologic care of your patient. If you have any questions or concerns regarding treatment for the above conditions please do not hesitate to contact me. The office telephone contact is [phone]. This note is constructed in part using voice recognition software. While every effort has been made to ensure accuracy shot hole shooter errors may have been included. Yours sincerely, Diana Howard MD Coding Level of Care Code New Pt Level 3 (47839) Diagnoses Urinary retention R33.9 UTI (urinary tract infection) N39.0 CPT Codes Bladder/Catheter Procedure - CPT: 42372-[id number] Temporary Bladder Catheter ([id number]) Bladder/Catheter Procedure Details: After alex removed, Using sterile techinique, 16 bengali alex catheter placed. [id number] Temporary Bladder Catheter Procedure code (CPT) selection complete
--- OUTSIDE RECORDS SUMMARY | 2024-04-09 11:10 | XMS_ITS | Data Portability ---
Author Organization [employer], Pr in - [employer] Address [address] [place] [phone] Care Team Providers Care Oil Analyst Name Role Phone HIM [facility] OTHER Assessment [...] of any new or worsening serious symptoms Not available 03/16/2024 14:15:01 03/18/2024 03/18/2024 service [...] None recorded. Lab culture, urine 2023 024 MICRO [facility], [address] [facility], [place], [address], 10:05:56 urinalysis , dipstick 2023 024 rsullivan 84 [facility], [address] [place] [address], [place], [address], 14:11:30 Referral None recorded. Procedures None recorded. Surgeries None recorded. Imaging None recorded. Medication Orders None recorded. Patient TargetsNo targets recorded. Patient InstructionsNo instructions recorded. Reason for Referral None Reported. Results Created Date Observation Date Name Description Value Unit Range Abnormal Flag Note LastModifiedBy Organization Detail LastModifiedTime 03/16/2003/19/2024 URINE CULTU RE,CO MPREH ENSIV E urine culture,comp rehensive Final report Not Available [facility] ([facility]) [address] [facility], [place], [address], 03/19/2024 10:05:46 03/16/2003/19/2024 URINE CULTU RE,CO MPREH ENSIV E result 1 COMMEN T No growt h in 36 - 48 hours . Not Available [facility] ([facility]) [address] [facility], [place], [address], 03/19/2024 10:05:46 Result Notes None recorded. Medical Equipment None Reported. Allergies Allergen ID Allergen Name Allergen Category Reaction Reaction Severity Criticality Documentation Date Start Date Code Code System Note Provider Name and Address Organization Details Recorded Time 61010 semagluti de medicatio n Not available Not [...] cm 96 % 96 % 98 [degF] 384992 g 14 /min 77 /min 134 mm[Hg] 82 mm[Hg] Not Available [facility] - production 19:24:57 Social History None recorded. Functional Status None recorded. Mental Status None recorded. Family History Nothing Reported. Medical History No medical history recorded. Past Encounters Encounter ID Performer Location Encounter Start Date Encounter Closed Date Diagnosis/Indication Diagnosis SNOMED-CT Code Diagnosis ICD10 Code [id number] Aleksandar Manning MD Main - [facility] [address] [place] [phone] 03/16/2024 13:37:07 03/16/2024 16:05:19 Mechanical complication of urethral indwelling catheter 27290181 T83.098A [id number] Elvi Pereira MD Main - [facility] [address] [place] [phone] 03/18/2024 19:24:55 03/19/2024 15:31:31 Complication of urinary catheter 736911551 T83.9XXA Health Concerns Section Related Observation LastModified by Organization Detai ls LastModified Time None Recorded Concern Status LastModified by Organization Details LastModified Time None Recorded Advance Directives Directive None Recorded Payers Encounter Date Sequence Insurance Name Policy Number Policy Pan Covered Member ID Pan Member ID Guarantor Name 03/16/2024 1 [facility] - DOS ON OR AFTER 2022 - DUAL ELIGIBLE - FCI OPTIONS AND ONE CARE (MEDICARE REPLACEMENT/ADV ANTAGE - HMO) Jonny Reed [id number] Jonny Reed 03/18/2024 1 [facility] [employer] - DOS ON OR AFTER 2022 - DUAL ELIGIBLE - [employer] OPTIONS AND ONE CARE (MEDICARE REPLACEMENT/ADV ANTAGE - HMO) Jonny Reed [id number] Jonny Reed Notes Date Note Type Note [...] alex catheter. Taking antibiotic for UTI currently. Social Work Supervisor Organization Information for Harley Rodriguez Business Legal Name: [employer]? ? Address: [address] [place] [address], Pipe Line Maintenance Supervisor: Ryley Solorio MD CLIA No.: [id number] Social Work Supervisor POC Test Results from Harley Rodriguez Urine [...] ..................... ..................... ..................... ..................... ..................... ..................... ............... Social Work Supervisor Note From Harley Rodriguez: Called to evaluate this COLON 64 year old male at home for urine leakage around his alex catheter. On arrival pt sts he had this 16 Fr Alex catheter inserted 7 February after being diagnosed with fluid retention at [facility]. The catheter remained in place without [...] milky drainage noted at meatus. [facility] (Dr Manning) and he was appraised [...] ..................... ..................... ..................... ..................... ............... [facility] Consulted: Aleksandar Manning ..................... ..................... ..................... ..................... ..................... ..................... ............... Disposition: Fulfilled Aleksandar Manning MD [address] [place] [address],[address], [place], [address], [facility] [employer] [facility] 03/16/2024 15:02:53 03/18/2024 text/html CRC Nurse Triage Notes (Pedro Hansen): Reason For Request: Pt was seen on 03/17/24 for catheter related issues and notes having the same issues today, 03/18/24 Chief Complaints: Urinary catheter/nephrostomy tube problems PMH: Chronic Back Pain, Hypertension Comments: Pt. was advised to monitor reported s/s and seek emergency treatment if needed. Pt reports he was seen by [facility] on 03/17/24 - Alex cath changed - [...] ..................... ..................... ..................... ..................... ..................... ..................... ............... Social Work Supervisor Note From Esa Francisco: Patient alert and oriented seated in chair. Patient complains of leakage around urethra. Patient [facility]. Patient reports he noticed urine leaking [...] Sticker to secure tube applied. [facility] advises culture taken times two days ago currently negative for growth.Patient encouraged to monitor site, contact [facility] intensive care anaesthetist to help arrange urology referral, and call [facility] again if needed. Patient and caregiver demonstrates understanding of care and plan. Patient grateful for assistance. ..................... ..................... ..................... ..................... ..................... ..................... ............... [facility] Consulted: Elvi Pereira ..................... ..................... ..................... ..................... ..................... ..................... ............... Disposition: Fulfilled Elvi Pereira MD [address] [facility],[address], [place], [address], [facility], [facility] 03/18/2024 20:14:22
--- OUTSIDE RECORDS SUMMARY | 2024-04-09 11:10 | XMS_ITS | Continuity of Care Document ---
Author Organization [facility], [place] [employer] - [email or web address] Address [address] [place] [phone] Care Team Providers Care Auto Damage Insurance Appraiser Name Role Phone HIM [facility] OTHER Assessment [...] Name and Address Organization Details Recorded Time 17960 semagluti de medicatio n Not available Not [...] cm 96 % 96 % 98 [degF] 431834 g 14 /min 77 /min 134 mm[Hg] 82 mm[Hg] Not Available [facility] - production 4 19:24:57 Social History None recorded. Functional Status None recorded. Mental Status None recorded. Family History Nothing Reported. Medical History No medical history recorded. Past Encounters Encounter ID Performer Location Encounter Start Date Encounter Closed Date Diagnosis/Indication Diagnosis SNOMED-CT Code Diagnosis ICD10 Code [id number] Aleksandar Manning MD Main - [facility] [address] [place] [phone] 03/16/2024 13:37:07 03/16/2024 16:05:19 Mechanical complication of urethral indwelling catheter 98880836 T83.098A [id number] Elvi Pereira MD Main - [facility] [address] [place] [phone] 03/18/2024 19:24:55 03/19/2024 15:31:31 Complication of urinary catheter 749089793 T83.9XXA Health Concerns Section Related Observation LastModified by Organization Detai ls LastModified Time None Recorded Concern Status LastModified by Organization Details LastModified Time None Recorded Payers Encounter Date Sequence Insurance Name Policy Number Policy Pan Covered Member ID Pan Member ID Guarantor Name 03/18/[address] [facility] - DOS ON OR AFTER 2022 - DUAL ELIGIBLE - NURSING HOME OPTIONS AND ONE CARE (MEDICARE REPLACEMENT/ADV ANTAGE - HMO) Jonny Reed [id number] Jonny Burnett Derek Notes Date Note Type [...] ................... ................... ................... ................... ................... ................... ........ Manager People Note From Esa Francisco: Patient alert and oriented seated in chair. Patient complains of leakage around urethra. Patient reports alex catheter inserted times two days ago by [facility] personnel. Patient reports he noticed urine leaking [...] the hospital. Sticker to secure tube applied. [facility] advises culture taken times two days ago currently negative for growth.Patient encouraged to monitor site, contact [facility] home care giver to help arrange urology referral, and call [facility] again if needed. Patient and caregiver demonstrates understanding of care and plan. Patient grateful for assistance. ................... ................... ................... ................... ................... ................... ................... ........ [facility] Consulted: Elvi Pereira ................... ................... ................... ................... ................... ................... ................... ........ Disposition: Fulfilled Elvi Pereira MD [address] [facility],[address], [place], [address], [employer] 03/18/2024 20:14:22
== END 2024-04-09 12:08 | disposition home or self-care (01) ==
PROVIDERS: Visit Provider Urology
DX: R33.9 Retention of urine, unspecified (principal); N39.0 Urinary tract infection, site not specified
CPT/HCPCS: 51702; 99204

== ENCOUNTER → 2024-04-09 10:45 | Outpatient (BNVA) | payer OTHER, SELFPAY | PROVIDERS: Visit Provider Urology | DX: R33.9 Retention of urine, unspecified (principal); N39.0 Urinary tract infection, site not specified | CPT/HCPCS: 51702; 99202 ==

== ENCOUNTER 2024-04-29 09:55 | Outpatient (AMB) | payer OTHER, SELFPAY ==
[2024-04-29 09:59] VITALS: BP 169/79; PULSE 101; RESP 18; O2SAT 95
--- NOTE | 2024-04-29 09:59 | MHC.OFFVIS ---
Vital Signs 04/29/24 09:59 Height 5 ft 6 in BP 169/79 H Blood Pressure Location Lt brachial Position Sitting Respiration 18 Pulse 101 H Pulse Source Pulse Oximeter Pulse Oximetry (%) 95 Oxygen Delivery Method Room Air Intake Visit Reasons: Pill Count Allergies nystatin Adverse Reaction (Mild, Verified 04/29/24 10:01) swelling atorvastatin Adverse Reaction (Verified 04/29/24 10:01) Diarrhea Medication List - Last Reconciled 04/29/24 by Mague Sr LPN albuterol sulfate 90 mcg/actuation 2 puffs inhalation Q4-6H PRN 60 days albuterol sulfate 2.5 mg (0.5 mL) inhalation Q20M aspirin 81 mg PO DAILY cholecalciferol (vitamin D3) (Vitamin D3) 50 mcg PO DAILY furosemide 40 mg PO DAILY naloxone 4 mg/actuation 4 mg intranasal Q2M PRN 1 day nebulizers (Aeroneb Go Nebulizer) As directed oxycodone 10 mg PO Q4H PRN 30 days rosuvastatin (Crestor) 5 mg PO DAILY spironolactone 25 mg PO BID tamsulosin 0.4 mg PO DAILY walker Folding Front wheeled walker zolpidem 10 mg PO BEDTIME PRN HPI Comments Details: Jonny is back in my office today for the pill count and pain medication refill. His pill count is correct today his supposed to have 60 pills in his possession. He presented with 76 pills in his possession. He reports his pain today 09/28. He denies side effects of the opioid medications. He is wheelchair-bound. His indwelling catheter was reinserted. He went to [facility] where he received ascites drainage. He has end-stage liver disease. He is on transplant list. I will renew his prescription on 05/09/24. I will see him in 1 month for pill count and follow-up. He was explained today that with deteriorating liver function oxycodone could be metabolized by his liver slower therefore he has increase risk of overdose. Prior: c/o chronic debilitating 12/29 to 01/28 pain syndrome. left hip avascular necrosis and severe arthritis as well as postlaminectomy syndrome of the lumbar spine. He is here with the intention to start chronic opioid therapy in this office however he is interested in interventional pain management. The assessment was performed today, he is currently on rather elevated doses of the opioid medications. I explained to him that I will not be able to prescribe 60 mg of continuous oxycodone and 10 mg of oxycodone p.r.n. on demand I would have to taper these dose down to more acceptable levels. His PHQ-9 score is equal to 8. The opioid addiction risk score is equal to 21. Total score is equal to 29. Therefore he is high-risk for opioid addiction and implication of this assessment was explained to the patient. Information on chronic opioid therapy was carefully explained to the patient. Informed consent for the treatment of chronic opioid therapy was carefully explained to the patient. The patient has signed agreement for chronic opioid therapy as well as consent and information page. Need for careful monitoring of the opioid intake was explained to the patient. Pill count regular and random as well as UDS regular and random were carefully explained to the patient with all the implications on his personal life. [facility] Medical History (Updated 03/22/24 @ 10:28 by Dalia Harmon PA-C) Chronic pain syndrome Portal hypertensive gastropathy Depression Anxiety Iron overload syndrome Internal hemorrhoids Diverticulosis Hx of esophageal varices intermediate frame tender prescription opiate use No natural teeth Back pain Back pain Arthritis Morbidly obese Fatty liver History of cirrhosis of liver Avascular necrosis Hemochromatosis COPD (chronic obstructive pulmonary disease) NICOLE on CPAP Surgical History Hx of esophagogastroduodenoscopy Hx of colonoscopy [place] teeth extracted History of surgery History of back surgery (~1997) H/O discectomy (~1997) Family History Maternal Grandfather Heart attack Brother Heart attack Social History Household Members: None Housing: Apartment Are you a primary hearing healthcare practitioner to a significant other at home: No Do you presently have visiting nurse or other home services: Yes (TOOL DESIGN DRAFTER 37.5 hours M-F, 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) 75 years or older and lives alone: No Patient Tobacco Use Status: Former Tobacco user Tobacco use type: Cigarette service: No Current occupational status: unemployed Cognitive needs: No Hearing needs: No Vision needs: No Review of Systems Const All systems reviewed & are unremarkable except as noted in HPI and below Physical Exam Vital Signs: Last Vital Signs Pulse 101 H 04/29/24 09:59 Resp 18 04/29/24 09:59 BP 169/79 H 04/29/24 09:59 Pulse Ox 95 04/29/24 09:59 Oxygen Delivery Method Room Air 04/29/24 09:59 General: Appears afebrile. Morbidly obese. Alert and oriented. Mood and affect appropriate. Follows and participates in conversation appropriately. Respiratory effort is unlabored. No cough. Able to transition from sit to stand with assistance. Patient arrived via W/C, reports minimal ambulation due to left hip and back pain. Back/Spine/Pelvis Cervical Spine: loss of normal cervical lordosis, cervical muscular tenderness, pain with cervical ROM and No Cervical spine tenderness Thoracic/Lumbar Spine: thoracic and lumbar spine normal to inspection, Thoracic/lumbar spine scar(s), Lasegue's sign negative, straight leg raise negative bilaterally, pain with thoraco-lumbar ROM, thoraco-lumbar ROM limited, No thoracic spinal tenderness and lumbar spinal tenderness (L4-S1) Sacroiliac joints: bilaterally tender to palpation Extrem General: Yes no calf tenderness, No cyanosis and Yes edema (BLE +1-+2 nonpitting edema) Left lower extremity: hip/thigh (limited ROM due to pain and body habitus. +groin pain with I/E rotations) Details: tenderness Location: of the hip Location: posterolaterally and over the great trochanter and crepitus; no swelling, no ecchymosis and no unusual warmth Results Reviewed Results Reviewed: EXAMINATION: XR PELVIS 09/29/2023 CLINICAL INFORMATION: Pain. COMPARISON: MR left hip 04/26/2021. TECHNIQUE: AP view of the pelvis. FINDINGS: Evaluation is very limited due to patient body habitus and positioning. There is severe, end-stage arthrosis of the left hip with bone in bone contact and deformity of the superolateral aspect of the left femoral head. There is moderate degenerative osteoarthritis of the right hip with joint space narrowing and subcortical sclerosis. SI joints are symmetric and pelvic rami and pubic symphysis are maintained. Assessment & Plan Assessment & Plan (1) Avascular necrosis of bone of left hip: Code(s): M87.052 - Idiopathic aseptic necrosis of left femur Category: Medical (2) Chronic pain syndrome: Code(s): G89.4 - Chronic pain syndrome Category: Medical (3) Lumbar post-laminectomy syndrome: Code(s): M96.1 - Postlaminectomy syndrome, not elsewhere classified Category: Medical Plan I will continue current dosage of the opioid medications 10 mg 6 times a day however patient was informed about risk of overdose with deteriorating liver function. He was informed that he has to be very careful and monitor his mental status before taking next opioid medication. He was informed not to take medications close to his bedtime. He has Narcan prescribed as below. His assessment score is total of 29 demonstrating high-risk of opioid addiction. This is high risk for opioid addiction. Implication of the scoring was discussed with the patient. His medications will be prescribed on 05/09/2024 Narcan was prescribed to this patient 02/25/2024 Next appointment in 1 month. Medications: Refilled oxycodone Partial Fill upon patient request. 10 mg PO Q4H 30 days PRN 180 tabs 0RF pain Coding Level of Care Code Est Pt Level 3 (68285) Diagnoses Avascular necrosis of bone of left hip M87.052 Chronic pain syndrome G89.4 Lumbar post-laminectomy syndrome M96.1
--- OUTSIDE RECORDS SUMMARY | 2024-04-29 10:20 | XMS_ITS | Continuity of Care Document ---
Author Organization [employer], [employer] - [employer] Address [address] [place] [phone] Care Team Providers Care Residential Monitor Name Role Phone HIM [facility] OTHER [facility] Primary Care Provider Assessment No assessment recorded. Plan of Treatment Reminders Order Date Submit [...] Name and Address Organization Details Recorded Time 59604 semagluti de medicatio n Not available Not available Not available 03/18/2024 RxNorm Not Available [employer] - production 18:27:38 Medications Name Sig Start [...] No t Available Vitals Date Recorded Body weight Oxygen saturation Oxygen saturation in Arterial blood by Pulse oximetry Respiratory rate Body temperature Heart rate Systolic blood pressure Diastolic blood pressure Provider Name and Address Organization Details Last Updated DateTime 5 135972. 28 g 97 % 97 % 16 /min 98.2 [degF] 86 /min 156 mm[Hg] 82 mm[Hg] Not Available [facility] - production 5 10:41:34 Social History None recorded. Functional Status None recorded. Mental Status None recorded. Family History Nothing Reported. Medical History No medical history recorded. Past Encounters Encounter ID Performer Location Encounter Start Date Encounter Closed Date Diagnosis/Indication Diagnosis SNOMED-CT Code Diagnosis ICD10 Code Diagnosis Note [id number] Juan Antonio Bustillo MD Main - [facility] [address] [place] [phone] 04/23/2024 10:41:31 04/23/2024 16:17:35 Complication of urinary catheter 349073498 T83.9XXA As noted, we were called to see this patient regarding concerns of malpositio n of alex catheter Evaluation in the field was performed by my outside sales manager colleague, as noted above, I provided real-time direction and supervisio n for this visit. The evaluation revealed normal VS and simple disconnect ion, which the patient was not able to adequately visualize due to body habitus. Impression :Alex disconnect ion without any patient complicati ons Plan:Recon Jacquelinediomedes crawford Health Concerns Section Related Observation LastModified by Organization Donovan ls LastModified Time None Recorded Concern Status LastModified by Organization Details LastModified Time None Recorded Payers Encounter Date Sequence Insurance Name Policy Number Policy Pan Covered Member ID Pan Member ID Guarantor Name 04/23/2024 1 [facility] - DOS ON OR AFTER 2022 - DUAL ELIGIBLE - [facility] OPTIONS AND ONE CARE (MEDICARE REPLACEMENT/ADV ANTAGE - HMO) Jonny Reed [id number] Jonny Reed Notes Date Note Type Note Provider Name and Address Organization Details Recorded Time 04/23/2024 text/html [facility] Nurse Triage Notes (Lucie Carter - RN): Reason For Request: Pt reporting that he has a alex cath in and notes being seen by paramedics in the past>notes last night the hosing came out of the penis but that there are remnants that are still in there Chief Complaints: Urinary catheter/nephrostom y tube problems PMH: Chronic Back Pain, Hypertension, Cirrhosis Comments: Steward/Stewardess Deck verified the name//address and phone number. Pt is stating that the hose came out of the alex but he feels that there are still remnants of the area in his penis. The balloon is not on the hose , per the member. His area is swollen and was explained what a deflated balloon looks like and he is unsure. He has had incontinence . He was explained that if he does have a broken remnant of the alex he would need further interventions .He was in the hospital for urinary retention and liver cirrhosis and is a on a diuretic Education provided on the response time and the Patient was advised to monitor reported s/s and seek emergency treatment if needed ................... ................... ................... ................... ................... ................... ................... ........ Shooter Helper Note From Hussein Grossman: Pt co alex cath disconnection from bag tube. Pt got up and it fell off. Pay can not see th area due to obesity and was unsure what had happened. Pt denies pain. Pt sts urine is sti voiding from catheter. Pt has no other complaints. Alex reconnected without issue. Pt education on signs indicating the ER. [facility] [place] and advised of resolution. ................... ................... ................... ................... ................... ................... ................... ........ [facility] Consulted: Justin Bustillo ................... ................... ................... ................... ................... ................... ................... ........ Disposition: Fulfilled Juan Antonio Bustillo MD [address] [facility],[address], [place], [address], [employer] 04/23/2024 10:47:59
--- OUTSIDE RECORDS SUMMARY | 2024-04-29 10:20 | XMS_ITS | Continuity of Care Document ---
Author Organization [employer] [place] [employer] [facility] [employer] Address [address] [place] [address] Care Team Providers Care Bell Staff Name Role Phone HIM [facility] OTHER [facility] Primary Care Provider Assessment No assessment [...] Name and Address Organization Details Recorded Time 36801 semagluti de medicatio n Not available Not available Not available 03/18/2024 RxNorm Not Available [facility] - production 18:27:38 Medications Name Sig Start [...] t Available Vitals Date Recorded Body weight Body height Body temperature Oxygen saturation Oxygen saturation in Arterial blood by Pulse oximetry Respiratory rate Heart rate Systolic blood pressure Diastolic blood pressure Provider Name and Address Organization Details Last Updated DateTime 5 565325. 28 g 167.64 cm 98 [degF] 94 % 94 % 16 /min 87 /min 162 mm[Hg] 72 mm[Hg] Not Available [facility] - production 5 18:57:19 Social History None recorded. Functional Status None recorded. Mental Status None recorded. Family History Nothing Reported. Medical History No medical history recorded. Past Encounters Encounter ID Performer Location Encounter Start Date Encounter Closed Date Diagnosis/Indication Diagnosis SNOMED-CT Code Diagnosis ICD10 Code Diagnosis Note [id number] Juan Antonio Bustillo MD [facility] - [facility] [address] [place] [phone] 04/23/2024 10:41:31 04/23/2024 16:17:35 Complication of urinary catheter 818797045 T83.9XXA As noted, we were called to see this patient regarding concerns of malpositio n of alex catheter Evaluation in the field was performed by my director public colleague, as noted above, I provided real-time direction and supervisio n for this visit. The evaluation revealed normal VS and simple disconnect ion, which the patient was not able to adequately visualize due to body habitus. Impression :Alex disconnect ion without any patient complicati ons Plan:Recon Prashant crawford [id number] [facility]y Lopez [facility] [address] [place] [phone] 04/25/2024 18:57:17 04/26/2024 00:18:55 Complication of urinary catheter [id number] T83.9XXS As noted, we were called to see this patient regarding concerns of malfunctio vy urinary catheter. Evaluation in the field was performed by my director public colleague, as noted above, I provided real-time direction and supervisio n for this visit. The evaluation revealed 64 yo with indwelling alex catheter since February with multiple issues. It was changed yesterday by [facility] to 18fr catheter. Since placement it has leaked around the edge of the catheter at his urethral meatus. He has no persistent pain or discomfort with the catheter. Impression :unclear if catheter is damaged vs malpositio freddie. unlikely to be too small. Plan:sanchez e out catheter using spare 18fr left by [facility] Dispositio n: We discussed the diagnostic uncertaint y of home visits and the risk associated with this. In this case, the patient and I felt this to be an acceptable and reasonable amount of risk given the benefit of avoiding an ED visit. We discussed the need to seek care urgently/e mergently in the setting of any new or worsening serious symptoms. Health Concerns Section Related Observation LastModified by Organization Detai ls LastModified Time None Recorded Concern Status LastModified by Organization Details LastModified Time None Recorded Payers Encounter Date Sequence Insurance Name Policy Number Policy Pan Covered Member ID Pan Member ID Guarantor Name 04/25/2024 1 [facility] - DOS ON OR AFTER 2022 - DUAL ELIGIBLE - GROUP HOME OPTIONS AND ONE CARE (MEDICARE REPLACEMENT/ADV ANTAGE - HMO) Jonny Reed [id number] Jonny Reed Notes Date Note Type Note Provider Name and Address Organization Details Recorded Time 04/25/2024 text/html CRC Nurse Triage Notes (Pedro Hansen - RN): Reason For Request: Pt reporting having a catheter placed yesterday by [facility] in which it began to leak this morning Patient Reports: Painful urination Denies: Unable to void greater than 5 hours Erection that will not go away after 2 hours Fall or trauma that results in urinary incontinence in the setting of pain Fall or injury that results in incontinence in the absence of pain Lower back pain either unilateral or bilateral, unable to void, painful urination -hematuria Chief Complaints: Urinary catheter/nephrosto my tube problems PMH: Chronic Back Pain, Hypertension, Cirrhosis Comments: Radio Mechanic Apprentice verified the Pt.'s name//address and phone number. Education provided on the response time and the Pt. was advised to monitor reported s/s and seek emergency treatment if needed. Pt reports having a catheter placed yesterday by [facility] - Same is leaking around the penis - Denies bladder pain - Denies fever - Denies back - Alex catheter trouble shooting requested. .................. .................. .................. .................. .................. .................. .................. ............... Finish Production Manager Note From Marcellus Mauro: This 64-year-old male with a history including but not limited to chronic back pain, HTN, cirrhosis requested a visit today for Alex catheter troubleshooting. Patient states he had his Alex replaced yesterday by [facility] within 18 Fr and has noticed leaking urine from the tip of his penis since this morning. Patient denies any pain around the insertion site, abdominal pain, flank pain, fevers, nausea, vomiting, diarrhea.Patient presents awake and alert, and no acute distress. His vital signs are reasonably stable and he is afebrile.I replaced his Alex with an 18 Fr that the [facility] had left from a previous visit because our service does not carry that size. The patient tolerated the procedure well. I instructed the patient to follow up with his urologist in the morning especially if he notices that urine is still leaking out. The patient and his family were given the opportunity to ask questions and are agreeable to this plan. .................. .................. .................. .................. .................. .................. .................. ............... [facility] [place]ed: Betsy Lopez .................. .................. .................. .................. .................. .................. .................. ............... Disposition: Barbara Lopez MD [address] [place] [address],[address], [place], [address], RADHA - ANNE FRY 04/25/2024 20:46:05
--- OUTSIDE RECORDS SUMMARY | 2024-04-29 10:20 | XMS_ITS | Continuity of Care Document ---
Author Organization [employer] [place] [facility] Address [address] [place] [address] Care Team Providers Care Lead Business Analyst Name Role Phone HIM [facility] OTHER [facility] Primary Care Provider Assessment Encounter Date Assessment Date Assessment LastModified [...] of any new or worsening serious symptoms [email or web address] Not available 03/16/2024 14:15:01 Plan of Treatment Reminders Order Date Submit Date Provider Last Modified By Organization Details Last Modified Time Details Appointments None recorded. Lab culture, urine 2023 024 SKIP [facility] [address] [facility] [place], [place], [address], 10:05:56 urinalysis , dipstick 2023 rsullivan 84 Main - [facility], [address] [place] [address], [phone], 14:11:30 Referral None recorded. Procedures None recorded. [...] Name and Address Organization Details Recorded Time 25831 semagluti de medicatio n Not available Not [...] 80 mm[Hg] Not Available [facility] - production 4 13:37:09 Social History None recorded. Functional Status None recorded. Mental Status None recorded. Family History Nothing Reported. Medical History No medical history recorded. Past Encounters Encounter ID Performer Location Encounter Start Date Encounter Closed Date Diagnosis/Indication Diagnosis SNOMED-CT Code Diagnosis ICD10 Code Diagnosis Note [id number] Aleksandar Manning MD Main - [facility] [address] [place] [phone] 03/16/2024 13:37:07 03/16/2024 16:05:19 Mechanical complication of urethral indwelling catheter 15646737 T83.098A Health Concerns Section Related Observation LastModified by Organization Detai ls LastModified Time None Recorded Concern Status LastModified by Organization Details LastModified Time None Recorded Payers Encounter Date Sequence Insurance Name Policy Number Policy Pan Covered Member ID Pan Member ID Guarantor Name 03/16/2024 1 [facility] - DOS ON OR AFTER 2022 - DUAL ELIGIBLE - RESIDENTIAL OPTIONS AND ONE CARE (MEDICARE REPLACEMENT/ADV ANTAGE - HMO) Jonny Reed [id number] Jonny S Reed Notes Date Note Type Note Provider [...] alex catheter. Taking antibiotic for UTI currently. Carbon Furnace Operator Helper Organization Information for Harley Rodriguez [employer] ALEXANDER Business Legal Name: [employer]? ? [address]: [address] [place] [id number], Skoog Machine Operator: Ryley HUNTIA No.: [id number] Carbon Furnace Operator Helper POC Test Results from Harley Rodriguez Urine [...] ..................... ..................... ..................... ..................... ..................... ..................... ............... Carbon Furnace Operator Helper Note From Harley Rodriguez: Called to evaluate this COLON 64 year old male at home for urine leakage around his alex catheter. On arrival pt sts he had this 16 Fr Alex catheter inserted 25 February after being diagnosed with fluid retention at [facility]. The catheter remained in place without issue [...] thin white milky drainage noted at meatus. [facility] [place] Manning[place] and he was appraised [...] ..................... ..................... ..................... ..................... ..................... ..................... ............... [facility] [place] Consulted: Aleksandar Manning ..................... ..................... ..................... ..................... ..................... ..................... ............... Disposition: Fulfilled Aleksandar Manning MD [address] [facility],[address] [facility], [place], [address], RADHA - ANNE FRY 03/16/2024 15:02:53
--- OUTSIDE RECORDS SUMMARY | 2024-04-29 10:20 | XMS_ITS | Continuity of Care Document ---
Author Organization [facility], [place] [facility] [employer] Address [address] [place] [phone] Care Team Providers Care Entertainer & Comic Name Role Phone HIM [facility] OTHER [facility] Primary Care Provider Assessment Encounter Date Assessment [...] Name and Address Organization Details Recorded Time 02685 semagluti de medicatio n Not available Not [...] cm 96 % 96 % 98 [degF] 270632 g 14 /min 77 /min 134 mm[Hg] 82 mm[Hg] Not Available [facility] - production 4 19:24:57 Social History None recorded. Functional Status None recorded. Mental Status None recorded. Family History Nothing Reported. Medical History No medical history recorded. Past Encounters Encounter ID Performer Location Encounter Start Date Encounter Closed Date Diagnosis/Indication Diagnosis SNOMED-CT Code Diagnosis ICD10 Code Diagnosis Note [id number] Aleksandar Manning MD Main - [facility] [address] [place] [phone] 03/16/2024 13:37:07 03/16/2024 16:05:19 Mechanical complication of urethral indwelling catheter [id number] T83.098A [id number] Elvi Pereira MD Main - [facility] [address] [place] [phone] 03/18/2024 19:24:55 03/19/2024 15:31:31 Complication of urinary catheter [id number] T83.9XXA Health Concerns Section Related Observation LastModified by Organization Detai ls LastModified Time None Recorded Concern Status LastModified by Organization Details LastModified Time None Recorded Payers Encounter Date Sequence Insurance Name Policy Number Policy Pan Covered Member ID Pan Member ID Guarantor Name 03/18/2024 1 [facility] - DOS ON OR AFTER 2022 - DUAL ELIGIBLE - [facility] OPTIONS AND ONE CARE (MEDICARE REPLACEMENT/ADV ANTAGE - HMO) Jonny Reed [id number] Jonny Reed Notes Date Note Type Note [...] ................... ................... ................... ................... ................... ................... ........ Superintendent Logging Note From Esa Francisco: Patient alert and oriented seated in chair. Patient complains of leakage around urethra. Patient [facility]. Patient reports he noticed urine [...] the hospital. Sticker to secure tube applied. [facility] advises culture taken times two days ago currently negative for growth.Patient encouraged to monitor site, contact [facility] career advisor to help arrange urology referral, and call [facility] again if needed. Patient and caregiver demonstrates understanding of care and plan. Patient grateful for assistance. ................... ................... ................... ................... ................... ................... ................... ........ [facility] Consulted: Kudesia, Valmeek ................... ................... ................... ................... ................... ................... ................... ........ Disposition: Fulfilled Elvi Pereira MD [address] [facility], [place], [address], [facility], [facility] 03/18/2024 20:14:22
== END 2024-04-29 10:11 | disposition home or self-care (01) ==
PROVIDERS: PCP Family Medicine; Visit Provider Anesthesiology
DX: M87.052 Idiopathic aseptic necrosis of left femur (principal); G89.4 Chronic pain syndrome; Z79.891 Long term (current) use of opiate analgesic
CPT/HCPCS: 99213

== ENCOUNTER → 2024-04-29 09:55 | Outpatient (BNVA) | payer OTHER, SELFPAY | PROVIDERS: PCP Family Medicine; Visit Provider Anesthesiology | DX: Z51.81 Encounter for therapeutic drug level monitoring (principal); F11.20 Opioid dependence, uncomplicated; M87.052 Idiopathic aseptic necrosis of left femur; M96.1 Postlaminectomy syndrome, not elsewhere classified; G89.4 Chronic pain syndrome | CPT/HCPCS: 99212 ==

== ENCOUNTER 2024-05-13 12:47 | Outpatient (REF) | payer OTHER, SELFPAY ==
[2024-05-13 14:24] LABS: Appearance Urine Turbid; Bacteria Urine 4+ (None Seen); Calcium Oxalate Crystals Urine Present; Color Urine Orange; Glucose Urine UA Negative (Negative); Leukocyte Esterase Urine Moderate (2+) (Negative); Nitrite Urine Positive (Negative); PH 6.5 (5.0-9.0); RBC Urine >20 /HPF (0-2); Specific Gravity - Urine >= 1.030 (1.005-1.025); Squamous Epithelial Cell Urine 0-2 /HPF (0-2); UMIC TRIGGER UA YES; Urine Blood Large (3+) (Negative); Urine Ketones Negative (Negative); Urine Protein 100 (2+) mg/dL (Neg-Trace); WBC Urine >50 /HPF (0-5)
--- OUTSIDE RECORDS SUMMARY | 2024-05-13 15:06 | XMS_ITS | Encounter Summary ---
Author Organization [facility] Address [address] [place] [phone] Care Team Providers Care Insurance Job Titles Name Role Phone Dalia Harmon Primary Care Provider [phone] Reason for Visit * Reason Onset Date Comments provider call back 04/20/2024 Encounter Details Date Type Department Care Team (Late st Contact Info) Description 04/20/2024 Telephone Gastroenterology - [place] [address] [place] [address] Han Sloan DO [address] [place] [address] provider call back Social History Tobacco Use Types Packs/Day Years Used Date Smoking Tobacco: Former Cigarettes Q uit: 04/21/2003 Smokeless Tobacco: Never Alcohol Use Standard Drinks/Week Comments No 0 (1 standard drink = 0.6 oz pur e alcohol) Interpersonal Safety Answer Date Record ed Physical Abuse 02/27/2024 Verbal Abuse 02/27/2024 Sex and Gender Information Value Date Recorded Sex Assigned at Male 02/26/2024 2:06 PM EST Gender Identity Male 02/26/2024 2:06 PM EST Sexual Orientation Straight 02/26/2024 2: 06 PM EST Job Start Date Occupation Industry Not on file Not on file Not on file documented as of this encounter Progress Notes * Amairani Hood MA - 04/22/2024 10:26 AM EST He saw [facility] Dr Simon on 04/09/24. She was very short with him at the visit and only addressed removing/replacing the catheter. She didn't discuss his medications with him at all. Urology office note requested. * Yasmeen Mathews - 04/20/2024 9:25 AM EST Pt is calling stating he saw his urologist a few weeks ago and he was not happy with her. She did not want to discuss his tx plan only wanted to discuss his catheter. He is asking if Dr. Sloan would call her to discuss his tx plan documented in this encounter Plan of Treatment Not on file documented as of this encounter Visit Diagnoses Not on filedocumented in this encounter Care Teams Insurance Job Titles Relationship Specialty Start Date End Date Dalia Harmon PA [address] [place] [address], [address] [place] [address] PCP - General 05/10/24 documented as of this encounter
--- OUTSIDE RECORDS SUMMARY | 2024-05-13 15:06 | XMS_ITS | Encounter Summary ---
Author Organization [facility] Address [address] [place] [id number] Care Team Providers Care Check Writer Salesperson Name Role Phone Dalia Harmon Primary Care Provider [phone] Reason for Visit * Imaging (Routine) - Authorized Specialty Diagnoses / Procedures Referred By Aliya harris Referred To Contact Radiology Diagnoses Decompensated cirrhosis (CMS/HCC) 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) Urinary retention Procedures CT Abdomen Pelvis w Contrast CT Abdomen Pelvis wo and w Contrast Han Sloan DO [address] [address] [facility] [address] [place] [address] Referral ID Status Reason Start Date Expiration Date V isits Requested Visits Authorized [id number] Authorized 04/23/2024 05/09/2024 1 1 Encounter Details Date Type Department Care Team (Latest Contact Info) Description 05/12/2024 9:15 AM EST - 05/12/2024 11:59 PM [facility] Hospital Encounter [facility] CT Scan [address] [place] [address] Decompensated cirrhosis (CMS/HCC); 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); Urinary retention Discharge Disposition: Home or Self Care Social History Tobacco Use Types Packs/Day Years [...] on file documented as of this encounter Medications at Time of Discharge Medication Sig Dispensed Refills Start Date End Date albuterol 2.5 mg/0.5 mL solution for nebulization nebulizer solution Take 0.5 mL (2.5 mg total) by nebulization every 6 (six) hours if needed for shortness of breath. 02/18/2024 aspirin 81 mg EC tablet Take 1 tablet (81 mg total) by mouth 1 (one) time each day. cholecalciferol (VITAMIN D-3) 50 mcg (2,000 unit) tablet 1 tablet (2,000 Units total). 11/19/2011 furosemide (LASIX) 40 mg tablet Take 1 tablet (40 mg total) by mouth 1 (one) time each day. 30 each 11 03/01/2024 03/01/2025 naloxone (NARCAN) 4 mg/0.1 mL nasal spray Administer 1 each (4 mg total) into affected nostril(s). 02/03/2023 oxyCODONE (OXY-IR) 5 mg immediate release capsule Take 2 capsules (10 mg total) by mouth every 4 (four) hours if needed for severe pain. Max Daily Amount: 60 mg 15 capsule 03/02/2024 rosuvastatin (CRESTOR) 5 mg tablet Take 1 tablet (5 mg total) by mouth 1 (one) time each day. 03/25/2024 spironolactone (ALDACTONE) 100 mg tablet Take 1 tablet (100 mg total) by mouth 1 (one) time each day. 90 each 04/08/2024 07/07/2024 zolpidem (AMBIEN) 10 mg tablet Take 1 tablet (10 mg total) by mouth at bedtime as needed. for insomnia documented as of this encounter Discharge Disposition Disposition Code Departure Means Destination Home or Self Care documented in this encounter Plan of Treatment Not on file documented as of this encounter Procedures Procedure Name Priority Date/Time Associated Diagnosis Comments CT ABDOMEN PELVIS W CONTRAST Routine 05/12/2024 10:27 AM EST Decompensated cirrhosis (CMS/HCC) 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) Urinary retention documented in this encounter Results * CT Abdomen Pelvis w Contrast (05/12/2024 10:27 AM EST) Anatomical Region Laterality Modality Body Computed Tomogra phy 05/13/2024 7:22 AM EST Impressions 05/13/2024 7:37 AM EST Cirrhotic morphology with findings of portal hypertension including splenomegaly and ascites. ??There are upper abdominal venous collaterals. There are filling defects within the portal vein suggesting nonocclusive thrombus. Chronic deformity left femoral head with secondary degenerative changes. ?? The study was performed during the late portal phase. ??This is not sensitive in detecting early enhancing liver lesions but there is no suspicious liver observation demonstrated There is left pleural fluid. Extensive coronary calcification -------- FINAL REPORT -------- Dictated By: Naren Longoria Dictated Date: 05/13/2024 07:22 ET Assigned Physician: Naren Longoria Reviewed and Electronically Signed By: Naren Longoria Signed Date: 05/13/2024 07:37 ET Workstation ID: [id number] Transcribed By: Self Edit Transcribed Date: 05/13/2024 07:22 ET Narrative 05/13/2024 7:37 AM EST EXAMINATION: CT ABDOMEN/PELVIS WITH IV CONTRAST CLINICAL INFORMATION: Ascites. ??Cirrhosis COMPARISON: None ?? TECHNIQUE: Multidetector CT. Helical examination of the abdomen and pelvis. Imaging performed after the IV administration of contrast. Reformatting in the coronal and sagittal planes. DLP: 1923 mGy-cm Dose optimization was performed including the use of low-dose iterative reconstruction technique with automatic exposure control based on patient size. Type of contrast: ISOVUE 370 Volume of IV contrast: 90 mL Volume of contrast discarded: 0 mL FINDINGS: LIVER: The right lobe of the liver measures 16.0 cm. The liver contour is irregular. ??The hepatic attenuation is heterogeneous. The liver was examined during the portal phase. ??There is no suspicious focal liver lesion. There are areas of probable filling defect within the right and left portal veins. ??This is nonocclusive. The main portal vein is somewhat dilated. There is recanalization of the umbilical vein. ?? BILIARY TRACT: ??The gallbladder wall is thickened. ??No definite opaque gallstone. ??No biliary dilation demonstrated SPLEEN: The spleen measures at least 17.9 cm. ??This is between 3 and 4 standard deviations above the mean expected. ??No focal abnormality. ?? PANCREAS: No suspicious abnormality. ?? ADRENAL GLANDS: Within normal limits ?? KIDNEYS: There is no dilation of the intrarenal collecting system on either side. ??The nephrograms are symmetric. ??No suspicious renal mass. ?? GASTROINTESTINAL TRACT: ?The colon is not distended. ??There are colonic diverticula. ??No small bowel dilation. There are diverticula along the medial aspect of the 2nd portion of the duodenum. I suspect some varices adjacent to the distal esophagus. URINARY BLADDER: ??There is a balloon catheter present. ??The urinary bladder is decompressed. ??The bladder is not well evaluated. PELVIC VISCERA: ??No large abnormality. ABDOMINAL WALL: The abdomen is protuberant. ??There is extensive subcutaneous stranding and skin thickening. ??Not all of the trachea was is included. ??Fat and fluid protrude into the umbilicus. ?? LYMPHOVASCULAR STRUCTURES AND FLUID: There is no abdominal aortic aneurysm. ??There is atherosclerotic calcification. As described there are upper abdominal venous collaterals. ??The main portal vein is dilated. ??As described I suspect nonocclusive portal vein thrombus. Large amount of intraperitoneal fluid. ?? VISUALIZED LOWER CHEST: There is at least a moderate amount of left pleural fluid. ??There is marked coronary calcification. ?? MUSCULOSKELETAL: No acute or suspicious osseous abnormality. ??There is degenerative change in the spine and hips. ??There is deformity of the left femoral head with flattening and proliferative osteophyte and perhaps some loose bodies. Procedure Note Naren Longoria MD - 05/13/2024 EXAMINATION: CT ABDOMEN/PELVIS WITH IV CONTRAST CLINICAL INFORMATION: Ascites. Cirrhosis COMPARISON: None TECHNIQUE: Multidetector CT. Helical examination of the abdomen and pelvis. Imaging performed after the IV administration of contrast. Reformatting in the coronal and sagittal planes. DLP: 1923 mGy-cm Dose optimization was performed including the use of low-dose iterativereconstruction technique with automatic exposure control based on patientsize. Type of contrast: ISOVUE 370 Volume of IV contrast: 90 mL Volume of contrast discarded: 0 mL FINDINGS: LIVER: The right lobe of the liver measures 16.0 cm. The liver contour isirregular. The hepatic attenuation is heterogeneous. The liver was examined during the portal phase. There is no suspiciousfocal liver lesion. There are areas of probable filling defect within the right and leftportal veins. This is nonocclusive. The main portal vein is somewhat dilated. There is recanalization of the umbilical vein. BILIARY TRACT: The gallbladder wall is thickened. No definite opaquegallstone. No biliary dilation demonstrated SPLEEN: The spleen measures at least 17.9 cm. This is between 3 and 4standard deviations above the mean expected. No focal abnormality. PANCREAS: No suspicious abnormality. ADRENAL GLANDS: Within normal limits KIDNEYS: There is no dilation of the intrarenal collecting system oneither side. The nephrograms are symmetric. No suspicious renal mass. GASTROINTESTINAL TRACT: The colon is not distended. There are colonicdiverticula. No small bowel dilation. There are diverticula along the medial aspect of the 2nd portion of theduodenum. I suspect some varices adjacent to the distal esophagus. URINARY BLADDER: There is a balloon catheter present. The urinarybladder is decompressed. The bladder is not well evaluated. PELVIC VISCERA: No large abnormality. ABDOMINAL WALL: The abdomen is protuberant. There is extensivesubcutaneous stranding and skin thickening. Not all of the trachea was isincluded. Fat and fluid protrude into the umbilicus. LYMPHOVASCULAR STRUCTURES AND FLUID: There is no abdominal aorticaneurysm. There is atherosclerotic calcification. As described there are upper abdominal venous collaterals. The mainportal vein is dilated. As described I suspect nonocclusive portal veinthrombus. Large amount of intraperitoneal fluid. VISUALIZED LOWER CHEST: There is at least a moderate amount of leftpleural fluid. There is marked coronary calcification. MUSCULOSKELETAL: No acute or suspicious osseous abnormality. There isdegenerative change in the spine and hips. There is deformity of the leftfemoral head with flattening and proliferative osteophyte and perhaps someloose bodies. IMPRESSION: Cirrhotic morphology with findings of portal hypertension includingsplenomegaly and ascites. There are upper abdominal venous collaterals. There are filling defects within the portal vein suggesting nonocclusivethrombus. Chronic deformity left femoral head with secondary degenerative changes. The study was performed during the late portal phase. This is notsensitive in detecting early enhancing liver lesions but there is nosuspicious liver observation demonstrated There is left pleural fluid. Extensive coronary calcification -------- FINAL REPORT -------- Dictated By: Naren Longoria Dictated Date: 05/13/2024 07:22 ET Assigned Physician: Naren Longoria Reviewed and Electronically Signed By: Naren Longoria Signed Date: 05/13/2024 07:37 ET Workstation ID: [id number] Transcribed By: Self Edit Transcribed Date: 05/13/2024 07:22 ET Han Sloan DO IMG CT PROCEDURES documented in this encounter Visit Diagnoses Diagnosis Decompensated cirrhosis (CMS/HCC) 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) Urinary retention Unspecified retention of urine documented in this encounter Administered Medications Inactive Administered Medications - up to 3 most recent administrations Medication Order MAR Action Action Date Dose Rate Site iopamidoL (ISOVUE-370) 370 mg iodine /mL (76 %) injection 90 mL 90 mL, intravenous, Once in imaging, Starting on Fri05/12/24 at 1015, For 1 dose Given 05/12/2024 10:22 AM EST 90 mL sodium chloride 0.9 % flush 10 mL 10 mL, intravenous, Once, On Fri05/12/24 at 1045, For 1 dose Given 05/12/2024 10:22 AM EST 10 mL documented in this encounter Care Teams Check Writer Salesperson Relationship Specialty Start Date End Date Dalia Harmon PA [address] [place] [address], [address] [place] [address] PCP - General 05/10/24 documented as of this encounter
--- OUTSIDE RECORDS SUMMARY | 2024-05-13 15:06 | XMS_ITS | Continuity of Care Document ---
Author Organization [employer] Address [address] [place] [phone] Care Team Providers Care Manager Community Outreach Name Role Phone HIM [facility] Primary Care Provider [phone] Assessment No assessment recorded. Plan of Treatment [...] Name and Address Organization Details Recorded Time 27559 semagluti de medicatio n Not available Not available Not available 03/18/2024 RxNorm Not Available [employer] production 18:27:38 Medications Name Sig Start [...] Address Organization Details Last Updated DateTime 5 187598. 28 g 97 % 97 % 16 [...] SNOMED-CT Code Diagnosis ICD10 Code Diagnosis Note [id number] Juan Antonio Bustillo MD Main - [facility] [address] [place] [address] 04/23/2024 10:41:31 04/23/2024 16:17:35 Complication of urinary catheter [id number] T83.9XXA As noted, we were called to see this patient regarding concerns of malpositio n of alex catheter Evaluation in the field was performed by my babbitter colleague, as noted above, I provided real-time [...] Pan Member ID Guarantor Name 04/23/2024 1 [facility] - DOS ON OR AFTER 2022 - DUAL ELIGIBLE - SKILLED NURSING OPTIONS AND ONE CARE (MEDICARE REPLACEMENT/ADV ANTAGE - HMO) Jonny Reed [id number] Jonny Reed Notes Date Note Type Note [...] PMH: Chronic Back Pain, Hypertension, Cirrhosis Comments: Direct Marketing Executive verified the name//address and phone number. Pt [...] ................... ................... ................... ................... ................... ................... ........ Nurse Ldr Note From Hussein Grossman: Pt co alex cath disconnection from bag tube. Pt got up and it fell off. Pay can not see th area due to obesity and was unsure what had happened. Pt denies pain. Pt sts urine is sti voiding from catheter. Pt has no other complaints. Alex reconnected without issue. Pt education on signs indicating the ER. [facility] contacted and advised of resolution. ................... ................... ................... ................... ................... ................... ................... ........ [facility] Consulted: Justin Bustillo ................... ................... ................... ................... ................... ................... ................... ........ Disposition: Fulfilled Juan Antonio Bustillo MD [address] [facility],[address], [place], [address], [employer] 04/23/2024 10:47:59
--- OUTSIDE RECORDS SUMMARY | 2024-05-13 15:06 | XMS_ITS | Continuity of Care Document ---
Author Organization [employer] Address [address] [place] [address] Care Team Providers Care Ostomy Nurse Name Role Phone HIM [facility] Primary Care Provider [phone] Assessment No assessment recorded. Plan of Treatment [...] Name and Address Organization Details Recorded Time 70190 semagluti de medicatio n Not available Not available Not available 03/18/2024 RxNorm Not Available [employer] - production 18:27:38 Medications Name Sig Start [...] Address Organization Details Last Updated DateTime 5 664723. 28 g 167.64 cm 98 [degF] 94 [...] SNOMED-CT Code Diagnosis ICD10 Code Diagnosis Note [id number] Juan Antonio Bustillo MD Main - [facility] [address] [place] [phone] 04/23/2024 10:41:31 04/23/2024 16:17:35 Complication of urinary catheter [id number] T83.9XXA As noted, we were called to see this patient regarding concerns of malpositio n of alex catheter Evaluation in the field was performed by my canal equipment maintenance supervisor colleague, as noted above, I provided real-time direction and supervisio n for this visit. The evaluation revealed normal VS and simple disconnect ion, which the patient was not able to adequately visualize due to body habitus. Impression :Alex disconnect ion without any patient complicati ons Plan:Recon Prashant crawford [id number] Betsy Lopez [facility] [address] [place] [phone] 04/25/2024 18:57:17 04/26/2024 00:18:55 Complication of urinary catheter [id number] T83.9XXS As noted, we were called to see this patient regarding concerns of malfunctio vy urinary catheter. Evaluation in the field was performed by my canal equipment maintenance supervisor colleague, as noted above, I provided real-time [...] Pan Member ID Guarantor Name 04/25/2024 1 [facility] - DOS ON OR AFTER 2022 - DUAL ELIGIBLE - LONGTERM OPTIONS AND ONE CARE (MEDICARE REPLACEMENT/ADV ANTAGE - HMO) Jonny eRed [id number] Jonny Reed Notes Date Note Type Note [...] PMH: Chronic Back Pain, Hypertension, Cirrhosis Comments: Phone Manager verified the Pt.'s name//address and phone number. [...] .................. .................. .................. .................. .................. .................. ............... Manager Landscape Note From Marcellus Mauro: This 64-year-old male [...] .................. .................. .................. .................. .................. .................. ............... [facility] Consulted: Betsy Lopez .................. .................. .................. .................. .................. .................. .................. ............... Disposition: Barbara Lopez MD [address] [place] [address],[address], [place], [address], [facility] - ANNE FRY 04/25/2024 20:46:05
--- OUTSIDE RECORDS SUMMARY | 2024-05-13 15:06 | XMS_ITS | Data Portability ---
Author Organization [place], [place] - [facility] Address [address] [place] [phone] Care Team Providers Care Pottery Kiln Builder Name Role Phone HIM [facility] Primary Care Provider Assessment Encounter Date [...] of any new or worsening serious symptoms [email or web address] Not available 03/16/2024 14:15:01 03/18/2024 03/18/2024 service [...] None recorded. Lab culture, urine 2023 024 [place] [facility], [address] [place] [address], [place], [address], 10:05:56 urinalysis , dipstick [address] [place] [address], [address] [place] [address], [phone], 14:11:30 Referral None recorded. Procedures None recorded. Surgeries None recorded. Imaging None recorded. Medication Orders None recorded. Patient TargetsNo targets recorded. Patient InstructionsNo instructions recorded. Reason for Referral None Reported. Results Created Date Observation Date Name Description Value Unit Range Abnormal Flag Note LastModifiedBy Organization Detail LastModifiedTime 03/16/2003/19/2024 URINE CULTU RE,CO MPREH ENSIV E urine culture,comp rehensive Final report Not Available [facility] ([facility]) [address] [facility], [place], [address], 03/19/2024 10:05:46 03/16/2003/19/2024 URINE CULTU RE,CO MPREH ENSIV E result 1 COMMEN T No growt h in 36 - 48 hours . Not Available [facility] ([facility]) [address] [facility], [place], [address], 03/19/2024 10:05:46 Result Notes None recorded. Medical Equipment None Reported. 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 4 13:37:09 Date Recorded Body height Oxygen saturation Oxygen saturation in Arterial blood by Pulse oximetry Body temperature Body weight Respiratory rate Heart rate Systolic blood pressure Diastolic blood pressure Provider Name and Address Organization Details Last Updated DateTime 4 172.72 cm 96 % 96 % 98 [degF] 684080 g 14 /min 77 /min 134 mm[Hg] 82 mm[Hg] Not Available [employer] 4 19:24:57 Date Recorded Body weight Oxygen saturation Oxygen saturation in Arterial blood by Pulse oximetry Respiratory rate Body temperature Heart rate Systolic blood pressure Diastolic blood pressure Provider Name and Address Organization Details Last Updated DateTime 5 989596. 28 g 97 % 97 % 16 /min 98.2 [degF] 86 /min 156 mm[Hg] 82 mm[Hg] Not Available [employer] 5 10:41:34 Date Recorded Body weight Body height Body temperature Oxygen saturation Oxygen saturation in Arterial blood by Pulse oximetry Respiratory rate Heart rate Systolic blood pressure Diastolic blood pressure Provider Name and Address Organization Details Last Updated DateTime 5 581275. 28 g 167.64 cm 98 [degF] 94 % 94 % 16 /min 87 /min 162 mm[Hg] 72 mm[Hg] Not Available [employer] 5 18:57:19 Social History None recorded. Functional Status None recorded. Mental Status None recorded. Family History Nothing Reported. Medical History No medical history recorded. Past Encounters Encounter ID Performer Location Encounter Start Date Encounter Closed Date Diagnosis/Indication Diagnosis SNOMED-CT Code Diagnosis ICD10 Code Diagnosis Note [id number] Aleksandar Manning MD [facility] - [facility] [address] [place] [phone] 03/16/2024 13:37:07 03/16/2024 16:05:19 Mechanical complication of urethral indwelling catheter 00769634 T83.098A [id number] Elvi Pereira MD Main - [facility] [address] [place] [phone] 03/18/2024 19:24:55 03/19/2024 15:31:31 Complication of urinary catheter [id number] T83.9XXA [id number] Juan Antonio Bustillo MD Main - [facility] [address] [place] [phone] 04/23/2024 10:41:31 04/23/2024 16:17:35 Complication of urinary catheter 512305609 T83.9XXA As noted, we were called to see this patient regarding concerns of malpositio n of alex catheter Evaluation in the field was performed by my sail repair person colleague, as noted above, I provided real-time direction and supervisio n for this visit. The evaluation revealed normal VS and simple disconnect ion, which the patient was not able to adequately visualize due to body habitus. Impression :Alex disconnect ion without any patient complicati ons Plan:Recon Prashant crawford [id number] Betsy Lopez MD Main - [facility] [address] [place] [phone] 04/25/2024 18:57:17 04/26/2024 00:18:55 Complication of urinary catheter [id number] T83.9XXS As noted, we were called to see this patient regarding concerns of malfunctio vy urinary catheter. Evaluation in the field was performed by my sail repair person colleague, as noted above, I provided real-time [...] Pan Member ID Guarantor Name 03/16/2024 1 [facility] - DOS ON OR AFTER 2022 - DUAL ELIGIBLE - NURSING HOME OPTIONS AND ONE CARE (MEDICARE REPLACEMENT/ADV ANTAGE - HMO) Jonny Reed [id number] Jonny Burnett Derek 03/18/2024 1 [facility] AFTER 2022 - DUAL ELIGIBLE - NURSING HOME OPTIONS AND ONE CARE (MEDICARE REPLACEMENT/ADV ANTAGE - HMO) Jonny Reed [id number] Jonny Burnett Derek 04/23/2024 1 [facility] - DOS ON OR AFTER 2022 - DUAL ELIGIBLE - NURSING HOME OPTIONS AND ONE CARE (MEDICARE REPLACEMENT/ADV ANTAGE - HMO) Jonny Reed [id number] Jonny Burnett Derek 04/25/2024 1 [facility] - DOS ON OR AFTER 2022 - DUAL ELIGIBLE - NURSING HOME OPTIONS AND ONE CARE (MEDICARE REPLACEMENT/ADV ANTAGE - HMO) Jonny Reed [id number] Jonny Reed Notes Date Note Type Note [...] alex catheter. Taking antibiotic for UTI currently. Electromechanical Technologist Organization Information for Harley Rodriguez Business Legal Name: [employer]? ? Address: [address] [place] [address], [place] [address], Planer Setup Operator: Ryley Solorio MD CLIA No.: [id number] Electromechanical Technologist POC Test Results from Harley Rodriguez Urine [...] ..................... ..................... ..................... ..................... ..................... ..................... ............... Electromechanical Technologist Note From Harley Rodriguez: Called to evaluate this COLON 64 year old male at home for urine leakage around his alex catheter. On arrival pt sts he had this 16 Fr Alex catheter inserted 7 February after being diagnosed with fluid retention at [facility]. The catheter remained in place without [...] thin white milky drainage noted at meatus. [facility] contacted (Dr Manning) and he was appraised [...] ..................... ..................... ..................... ..................... ..................... ..................... ............... [facility] Consulted: Aleksandar Manning ..................... ..................... ..................... ..................... ..................... ..................... ............... Disposition: Barbara Manning MD [address] [facility],[address], [place], [address], [facility] 03/16/2024 15:02:53 03/18/2024 text/html CRC Nurse Triage [...] ..................... ..................... ..................... ..................... ..................... ..................... ............... Electromechanical Technologist Note From Esa Francisco: Patient alert and oriented seated in chair. Patient complains of leakage around urethra. Patient reports alex catheter inserted times two days ago by [facility] personnel. Patient reports he noticed urine leaking [...] the hospital. Sticker to secure tube applied. [facility] advises culture taken times two days ago currently negative for growth.Patient encouraged to monitor site, contact [facility] director to help arrange urology referral, and [facility] Patient and caregiver demonstrates understanding of care and plan. Patient grateful for assistance. ..................... ..................... ..................... ..................... ..................... ..................... ............... [facility] Consulted: Elvi Pereira ..................... ..................... ..................... ..................... ..................... ..................... ............... Disposition: Fulfilled Elvi Pereira MD [address] [facility],[address], [place], [phone], [facility] 03/18/2024 20:14:22 04/23/2024 text/html CRC Nurse Triage Notes (Lucie Carter - RN): Reason For Request: Pt reporting that he has a alex cath in and notes being seen by paramedics in the past>notes last night the hosing came out of the penis but that there are remnants that are still in there Chief Complaints: Urinary catheter/nephrostomy tube problems PMH: Chronic Back Pain, Hypertension, Cirrhosis Comments: [employer] D Internship verified the name//address and phone number. Pt [...] s/s and seek emergency treatment if needed ..................... ..................... ..................... ..................... ..................... ..................... ............... Electromechanical Technologist Note From Hussein Grossman: Pt co alex cath disconnection from bag tube. Pt got up and it fell off. Pay can not see th area due to obesity and was unsure what had happened. Pt denies pain. Pt sts urine is sti voiding from catheter. Pt has no other complaints. Alex reconnected without issue. Pt education on signs indicating the ER. [facility] contacted and advised of resolution. ..................... ..................... ..................... ..................... ..................... ..................... ............... [facility] Consulted: Justin Bustillo ..................... ..................... ..................... ..................... ..................... ..................... ............... Disposition: [facility] Juan Antonio Bustillo MD [address] [place] [address],[address], [place], [phone] 04/23/2024 10:47:59 04/25/2024 text/html CRC Nurse Triage Notes (Pedro [...] void, painful urination -hematuria Chief Complaints: Urinary catheter/nephrostomy tube problems PMH: Chronic Back Pain, Hypertension, Cirrhosis Comments: [employer] D Internship verified the Pt.'s name//address and phone number. Education provided on the response time and the Pt. was advised to monitor reported s/s and seek emergency treatment if needed. Pt reports having a catheter placed yesterday by [facility] - Same is leaking around the penis - Denies bladder pain - Denies fever - Denies back - Alex catheter trouble shooting requested. ..................... ..................... ..................... ..................... ..................... ..................... ............... Electromechanical Technologist Note From Marcellus Mauro: This 64-year-old male [...] questions and are agreeable to this plan. ..................... ..................... ..................... ..................... ..................... ..................... ............... [facility] Consulted: Betsy Lopez ..................... ..................... ..................... ..................... ..................... ..................... ............... Disposition: Fulfilled Betsy Loepz MD [address] [facility],[address], [place], [address], [facility] - ANNE FRY 04/25/2024 20:46:05
--- OUTSIDE RECORDS SUMMARY | 2024-05-13 15:06 | XMS_ITS | Encounter Summary ---
Author Organization [facility] Address [address] [place] [phone] Care Team Providers Care C S S Representative Name Role Phone Dalia Harmon Primary Care Provider [phone] Reason for Visit * Reason Onset Date Comments provider call back 04/09/2024 Encounter Details Date Type Department Care Team (Late st Contact Info) Description 04/09/2024 Telephone Gastroenterology - [place] [address] [place] [address] Han Sloan DO [address] [place] [address] provider call back Social History Tobacco Use [...] as of this encounter Progress Notes * Claudia Diez MA - 04/13/2024 1:44 PM EST Placed order for BMP in another encounter for Dr. Sloan to order closing this encounter. * Claudia Diez MA - 04/13/2024 11:41 AM EST Spoke with patient he is made aware, patient said you would like him to repeat labs, can you place lab orders if you would like him to repeat labs thank you * Amairani Hood MA - 04/12/2024 4:15 PM EST You increased the spironalactone to 100 mg daily. You recommended furosemide 40 mg daily and that is what he is already taking. Should furosemide be increased as well? * Yasmeen Mathews - 04/09/2024 1:26 PM EST Pt stated that he had an appointment with his urologist and he questioned her about increasing the lasix. She advised him that she could not do that it would be up to the GI. He is wondering if that should be increased. documented in this encounter Plan of Treatment Not on file documented as of this encounter Visit Diagnoses Not on filedocumented in this encounter Care Teams C S S Representative Relationship Specialty Start Date End Date Dalia Harmon PA [address] [place] [address], [address] [place] [address] PCP - General 05/10/24 documented as of this encounter
--- OUTSIDE RECORDS SUMMARY | 2024-05-13 15:06 | XMS_ITS | Encounter Summary ---
Author Organization Address [address] [place] [address] Care Team Providers Care Database Marketing Manager Name Role Phone Em Dixon Primary Care Provider [phone] Encounter Details Date Type Department Care Team (Late st Contact Info) Description 04/13/2024 Telephone Gastroenterology - [place] [address] [facility] [address] [place] [address] Claudia Diez MA Social History Tobacco Use Types Packs/Day Years [...] Notes * Claudia Diez MA - 04/13/2024 1:42 PM EST BMP panel is pending to be signed, thank you documented in this encounter Plan of Treatment Scheduled Orders Name Type Priority Associated Diagnoses Orde r Schedule Basic metabolic panel Lab Routine 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) 1 Occurrences starting 04/15/2024 until 04/13/2025 documented as of this encounter Visit Diagnoses Diagnosis 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)- Primary documented in this encounter Care Teams Database Marketing Manager Relationship Specialty Start Date End Date Em Dixon DO [address] [place] [address] [place] [address] PCP - General Internal Medicine 03/08/24 05/09/24 documented as of this encounter
--- OUTSIDE RECORDS SUMMARY | 2024-05-13 15:06 | XMS_ITS | Clinical Summary ---
Author Organization [facility] Address [address] [place] [phone] Phone Care Team Providers Care Pediatric Critical Care Nurse Name Role Phone Dalia Harmon Primary Care Provider [phone] Allergies Active Allergy Reactions Criticality Noted Date Comments Codeine 12/25/2023 Other Reaction(s): Unknown body region Nystatin 04/07/2024 Cream and Powder Medications Medication Sig Dispensed Refills Start Date End Date Status naloxone (NARCAN) 4 mg/0.1 mL nasal spray Administer 1 each (4 mg total) into affected nostril(s). 02/03/2023 Active cholecalciferol (VITAMIN D-3) 50 mcg (2,000 unit) tablet 1 tablet (2,000 Units total). 11/19/2011 Active albuterol 2.5 mg/0.5 mL solution for nebulization nebulizer solution Take 0.5 mL (2.5 mg total) by nebulization every 6 (six) hours if needed for shortness of breath. 02/18/2024 Active zolpidem (AMBIEN) 10 mg tablet Take 1 tablet (10 mg total) by mouth at bedtime as needed. for insomnia Active furosemide (LASIX) 40 mg tablet Take 1 tablet (40 mg total) by mouth 1 (one) time each day. 30 each 03/01/2024 03/01/2025 Active spironolactone (ALDACTONE) 25 mg tablet Take 2 tablets (50 mg total) by mouth 1 (one) time each day. 60 each 03/01/2024 Active oxyCODONE (OXY-IR) 5 mg immediate release capsule Take 2 capsules (10 mg total) by mouth every 4 (four) hours if needed for severe pain. Max Daily Amount: 60 mg 15 capsule 03/02/2024 Active rosuvastatin (CRESTOR) 5 mg tablet Take 1 tablet (5 mg total) by mouth 1 (one) time each day. 03/25/2024 Active aspirin 81 mg EC tablet Take 1 tablet (81 mg total) by mouth 1 (one) time each day. Active spironolactone (ALDACTONE) 100 mg tablet Take 1 tablet (100 mg total) by mouth 1 (one) time each day. 90 each 04/08/2024 07/07/2024 Active Active Problems Problem Noted Date Diagnosed Date Candidal intertrigo 03/01/2024 Anasarca 02/26/2024 Lymphedema 08/01/2022 Thrombocytopenia 08/01/2022 Overview (12/25/2023): Related to iron overload syndrome per prior records COPD (chronic obstructive pulmonary disease) Avascular necrosis of bone of hip, left 06/26/19 23 Overview (12/25/2023): Was seen by [facility] who recommended weight loss prior to elective hip arthroplasty of left hip Was seen by [facility] who concurred with this Insomnia 04/13/2018 Chronic allergic conjunctivitis 04/13/2018 Anxiety 04/13/2018 Esophageal varices 12/03/2017 Hemochromatosis 12/03/2017 Overview (12/25/2023): 2 heterozygous gene mutations were found and recommended [id number] therapeutic phlebotomy. Follows with GI. Liver cirrhosis secondary to CASTANEDA (nonalcoholic steatohepatitis) 12/03/2017 Erosive gastritis 10/13/2017 Obstructive sleep apnea 05/21/2016 Overview (12/25/2023): On CPAP Hypertension 12/14/2014 Hyperlipidemia 12/12/2014 Diabetes mellitus type 2 with neurological manif estations 12/12/2014 Depression with anxiety 12/12/2014 Benign colonic polyp 12/12/2014 Vitamin D deficiency 07/27/2012 Internal hemorrhoids 07/27/2010 Diverticulosis 05/29/2010 Encounters Date Type Department Care Team Description 05/12/2024 9:15 AM EST - 05/12/2024 11:59 PM EST Hospital Encounter [facility] CT Scan [address] [place] [phone] Decompensated cirrhosis (CMS/HCC); 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); Urinary retention Discharge Disposition: Home or Self Care 05/11/2024 10:27 AM EST - 05/11/2024 11:59 PM EST Hospital Encounter [facility] Ultrasound [address] [place] [phone] 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) Discharge Disposition: Home or Self Care 05/10/2024 Telephone Internal Medicine - [address] [place] [phone] Em Dixon DO Faxed Order ([facility]) 05/05/2024 Telephone Gastroenterology [facility] [address] [place] [phone] Han Sloan DO 04/20/2024 Telephone Gastroenterology [facility] [address] [place] [phone] Han Sloan DO provider call back 04/13[facility] [address] [place] [phone] Claudia Diez CT 04/09[facility]2024 [facility] [address] [place] [phone] Han Sloan DO provider call back 04/07/2024 11:50 AM EST Lab Draw Station - [address] [place] [address] Decompensated cirrhosis (CMS/HCC); 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); Urinary retention; Anasarca; Liver cirrhosis secondary to CASTANEDA (nonalcoholic steatohepatitis) (CMS/HCC) 04/07/2024 11:00 AM EST Office Visit Gastroenterology [facility] [address] [place] [phone] Han Sloan DO Decompensated cirrhosis (CMS/HCC) (Primary Dx); 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); Urinary retention 04/05/2024 Billing Patient Not Present Internal Medicine - [address] [phone] Em Dixon DO Hereditary hemochromatosis (CMS/HCC) (Primary Dx); Nonalcoholic steatohepatitis (CASTANEDA); Hepatic cirrhosis, unspecified hepatic cirrhosis type, unspecified whether ascites present (CMS/HCC); Encounter for fitting and adjustment of urinary device; Retention of urine, unspecified; Encounter for surgical aftercare following surgery on the digestive system; Acquired buried penis; Generalized edema; Morbid (severe) obesity due to excess calories (CMS/HCC); Postlaminectomy syndrome, not elsewhere classified 04/05/2024 Telephone Internal Medicine - [address] [phone] Em Dixon DO Faxed Order ([facility] (Discharge Summary)) 04/05/2024 Telephone Internal Medicine - [address] [phone] Em Dixon DO Faxed Order ([facility]) 04/02/2024 Telephone Internal Medicine [address] [phone] Em Dixon DO Faxed Order ([facility] (Missed Visit)) 04/01/2024 Telephone [facility] [phone] Em Dixon DO Faxed Order ( [facility] ) 03/30/2024 Telephone Internal Medicine [address] [phone] Em Dixon DO faxed order ([facility] tracking#[id number]) 03/12/2024 Telephone Internal Medicine [address] [phone] Em Dixon DO faxed order (Silvia a tracking #[id number]) 03/12/2024 Lab Requisition [facility] [address] [place] [phone] Gerry Barksdale Essential (primary) hypertension 03/12/2024 Telephone Internal Medicine - [address] [place] [phone] Em Dixon DO vna 03/08/2024 Telephone Internal Medicine - [address] [place] [phone] Em Dixon DO VNA 03/05/2024 Lab Requisition [facility] [address] [place] [phone] Gerry Barksdale MD Essential (primary) hypertension 03/04/2024 Lab Requisition [facility] [address] [place] [phone] Gerry Barksdale MD Vitamin D deficiency, unspecified; Type 2 diabetes mellitus without complications (CMS/HCC); Essential (primary) hypertension 02/26/2024 11:46 AM EST - 03/03/2024 11:33 AM EST [facility] [address] [place] [phone] Emily Singh DO Flores, Carlos M, MD Japaridze, Anna, MD Kokosadze, Estate, MD Bilateral leg edema (Primary Dx); Anasarca; Liver cirrhosis secondary to CASTANEDA (nonalcoholic steatohepatitis) (CMS/HCC) Discharge Disposition: Home-Health Care [facility] from Last 3 Months Surgical History Surgery Date Site/Laterality Comments BACK SURGERY PROCEDURE: HISTORICAL BACK SURGERY; COMMENT: spinal diskectomy, osteophytectomy x4 ESOPHAGOGASTRODUODENOSCOPY PROCEDURE: TN ESOPHAGOGASTRODUODENOSCOPY TRANSORAL DIAGNOSTIC COLONOSCOPY N/A PROCEDURE: HISTORICAL COLONOSCOPY OTHER SURGICAL HISTORY Right PROCEDURE: TN STAB PHLEBT VARICOSE VEINS 1 XTR > 20 INCS Medical History Medical History Date Comments Anxiety 04/13/2018 DX:Anxiety Benign colonic polyp 12/12/2014 DX:Benign c olonic polyp Chronic allergic conjunctivitis 04/13/2018 DX:Chronic allergic conjunctivitis Cirrhosis of liver (CMS/HCC) 12/03/2017 DX: Cirrhosis of liver (HCC) Depression with anxiety 12/12/2014 DX:Depre ssion with anxiety Diverticulosis 05/29/2010 DX:Diverticulosi s Diabetes mellitus type 2, uncomplicated (CMS/HCC) 12/12/2014 DX:Diabetes mellitus type 2, uncomplicated (HCC) Erosive gastritis 10/13/2017 DX:Erosive gas tritis Esophageal varices (CMS/HCC) 12/03/2017 DX: Esophageal varices (HCC) Hyperlipidemia 12/12/2014 DX:Hyperlipidemi a Hypertension 12/14/2014 DX:Hypertension Insomnia 04/13/2018 DX:Insomnia Internal hemorrhoids 07/27/2010 DX:Internal hemorrhoids Iron overload syndrome 12/03/2017 DX:Iron o verload syndrome Morbid obesity (CMS/HCC) 09/10/2017 DX:Morb id obesity (HCC) Obstructive sleep apnea 05/21/2016 DX:Obstr uctive sleep apnea Thoracic or lumbosacral neur itis or radiculitis 09/13/2011 DX:Thoracic or lumbosacral n euritis or radiculitis Vitamin D deficiency 07/27/2012 DX:Vitamin D deficiency Family History Medical History Relation Name Comments Drug abuse Brother x2 heroine overdos e other brother had addiction to pain meds Liver disease Brother x2 Other: other Father cancer from [facility] estos Heart attack Grandparent maternal Obesity Half-Brother Obesity Half-Sister COPD Mother Diabetes Sister 1 Relation Name Status Comments Brother x2 Father Grandparent maternal Half-Brother Alive Half-Sister Alive Mother Sister 1 Alive Social History Tobacco Use Types Packs/Day Years [...] file Not on file Not on file Obstetrics History Last Filed Vital Signs Vital Sign Reading Time Taken Comments Blood Pressure 120/66 04/07/2024 10:59 AM EST Pulse 75 04/07/2024 10:59 AM EST Temperature 36.9 ??C (98.4 ??F) 03/03/2024 8:57 AM ES T Respiratory Rate 19 03/03/2024 8:57 AM EST Oxygen Saturation 98% 04/07/2024 10:59 AM EST Inhaled Oxygen Concentration - - Weight 160 kg (353 lb) 04/07/2024 10:59 AM EST Height 167.6 cm (5' 6 ) 04/07/2024 10:59 AM EST Body Mass Index 56.98 04/07/2024 10:59 AM EST Plan of Treatment Health Maintenance Due Date Last Done Comments Diabetes: Annual Foot Exam 01/24/1968 Diabetes: Annual Retina Eye Exam 01/24/1968 Hepatitis A Vaccines (1 of 2 - Risk 2-dose series) 1977 Zoster Vaccines (1 of 2) 01/24/2008 Hepatitis B Vaccines (1 of 3 - Risk 3-dose series) 2018 RSV Immunization Patients 60+ Years Old (1 - Risk 60-74 years 1-dose series) 2018 Abdominal Aortic Aneurysm (AAA) Screen 03/30/2022 Cholesterol Screening (Lipid Panel) 03/30/2022 Depression Screening 03/30/2022 Hepatitis C Screening 03/30/2022 Medicare Annual Wellness Visit 03/30/2022 Social Influencers of Health Screening 03/30/2022 Diabetes: Annual Urine Albumin-Creatinine Ratio (uACR) 04/05/2022 COVID-19 Vaccine ( season) 2023 05/07/2023, 02/11/2022, 05/16/2021, Additional history exists Influenza Vaccine (#1) 2023 , 02/21/2021, 01/06/2020, Additional history exists Diabetes: Blood Sugar Control Test (HGBA1C) 09/01/2024 03/04/2024, 11/17/2023 Falls Risk Assessment 03/03/2025 03/03/2024 Diabetes: Annual GFR (Glomerular Filtration Rate) 05/11/2025 05/11/2024, 04/07/2024, 03/08/2024, Additional history exists Hypertension/CHF/CAD Annual BMP Blood Test 05/11/2025 05/11/2024, 04/07/2024, 03/08/2024, Additional history exists Colorectal Cancer Screening: Colonoscopy 09/22/2030 09/22/2020 DTaP,Tdap,and Td Vaccines (2 - Td or Tdap) 07/31/2032 07/31/2022 Pneumococcal Vaccine: 65+ Years Completed 05/06/2023, 03/23/2012 HIB Vaccines Aged Out No longer eligi ble based on patient's age to complete this topic HPV Vaccines Aged Out No longer eligi ble based on patient's age to complete this topic IPV Vaccines Aged Out No longer eligi ble based on patient's age to complete this topic MMR Vaccines Aged Out No longer eligi ble based on patient's age to complete this topic Meningococcal ACWY Vaccine Aged Out N o longer eligible based on patient's age to complete this topic RSV Immunization Patients Under 20 months Aged Out No longer eligible based on patient's age to complete this topic Varicella Vaccines Aged Out No longer eligible based on patient's age to complete this topic Procedures Procedure Name Priority Date/Time Associated Diagnosis Comments CT ABDOMEN PELVIS W CONTRAST Routine 05/12/2024 10:27 AM EST Decompensated cirrhosis (CMS/HCC) 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) Urinary retention BASIC METABOLIC PANEL Routine 05/11/2024 12:25 PM EST DIFFERENTIAL BODY FLUID Routine 05/11/2024 12:04 PM EST 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) CELL COUNT WITH REFLEX DIFFERENTIAL, BODY FLUID Routine 05/11/2024 12:04 PM EST 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) PROTEIN, BODY FLUID Routine 05/11/2024 1 2:04 PM EST 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) ALBUMIN, BODY FLUID Routine 05/11/2024 1 2:04 PM EST 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) US PARACENTESIS W IMAGE GUIDANCE STAT 05/11/2024 12:02 PM EST 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) CBC WITH AUTO DIFFERENTIAL Routine 04/07/2024 11:53 AM EST Decompensated cirrhosis (CMS/HCC) 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) Urinary retention FERRITIN Routine 04/07/2024 11:53 AM EST Decompensated cirrhosis (CMS/HCC) 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) Urinary retention CBC AND DIFFERENTIAL Routine 04/07/2024 11:53 AM EST Decompensated cirrhosis (CMS/HCC) 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) Urinary retention COMPREHENSIVE METABOLIC PANEL Routine 04/07/2024 11:53 AM EST Decompensated cirrhosis (CMS/HCC) 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) Urinary retention ALPHA FETOPROTEIN TUMOR MARKER Routine 04/07/2024 11:53 AM EST Decompensated cirrhosis (CMS/HCC) 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) Urinary retention BASIC METABOLIC PANEL Routine 03/08/2024 9:48 AM EST Essential (primary) hypertension COMPLETE BLOOD COUNT Routine 03/08/2024 9:48 AM EST Essential (primary) hypertension VITAMIN D 25 HYDROXY Routine 03/04/2024 9:21 AM EST Vitamin D deficiency, unspecified Type 2 diabetes mellitus without complications (CMS/HCC) Essential (primary) hypertension HEMOGLOBIN A1C Routine 03/04/2024 9:21 AM EST Vitamin D deficiency, unspecified Type 2 diabetes mellitus without complications (CMS/HCC) Essential (primary) hypertension VITAMIN B12 Routine 03/04/2024 9:21 AM EST Vitamin D deficiency, unspecified Type 2 diabetes mellitus without complications (CMS/HCC) Essential (primary) hypertension FOLATE Routine 03/04/2024 9:21 AM EST Vitamin D deficiency, unspecified Type 2 diabetes mellitus without complications (CMS/HCC) Essential (primary) hypertension THYROID STIMULATING HORMONE Routine 03/04/2024 9:21 AM EST Vitamin D deficiency, unspecified Type 2 diabetes mellitus without complications (CMS/HCC) Essential (primary) hypertension COMPREHENSIVE METABOLIC PANEL Routine 03/04/2024 9:21 AM EST Vitamin D deficiency, unspecified Type 2 diabetes mellitus without complications (CMS/HCC) Essential (primary) hypertension COMPLETE BLOOD COUNT Routine 03/04/2024 9:21 AM EST Vitamin D deficiency, unspecified Type 2 diabetes mellitus without complications (CMS/HCC) Essential (primary) hypertension CBC WITH AUTO DIFFERENTIAL Routine 03/02/2024 6:22 AM EST CBC AND DIFFERENTIAL Routine 03/02/2024 6:22 AM EST BASIC METABOLIC PANEL Routine 03/02/2024 6:22 AM EST US PARACENTESIS W IMAGE GUIDANCE Routine 03/01/2024 11:46 AM EST MAGNESIUM Routine 03/01/2024 5:24 AM EST BASIC METABOLIC PANEL Routine 03/01/2024 5:24 AM EST CBC WITH AUTO DIFFERENTIAL Routine 03/01/2024 5:23 AM EST CBC AND DIFFERENTIAL Routine 03/01/2024 5:23 AM EST CBC WITH AUTO DIFFERENTIAL Routine 02/29/2024 7:45 AM EST MAGNESIUM Routine 02/29/2024 7:45 AM EST CBC AND DIFFERENTIAL Routine 02/29/2024 7:45 AM EST BASIC METABOLIC PANEL Routine 02/29/2024 7:45 AM EST LAVENDER - EDTA Routine 02/28/2024 5:54 AM EST EXTRA TUBES Routine 02/28/2024 5:54 AM EST PROTHROMBIN TIME WITH INR Routine 02/28/2024 5:54 AM EST MAGNESIUM Routine 02/28/2024 5:50 AM EST HEPATIC FUNCTION PANEL Routine 5:50 AM EST BASIC METABOLIC PANEL Routine 02/28/2024 5:50 AM EST AMMONIA Routine 02/28/2024 5:49 AM EST DIFFERENTIAL BODY FLUID Routine 02/27/2024 6:01 PM EST ALBUMIN, BODY FLUID Routine 02/27/2024 6 :01 PM EST PROTEIN, BODY FLUID Routine 02/27/2024 6 :01 PM EST CELL COUNT WITH REFLEX DIFFERENTIAL, BODY FLUID Routine 02/27/2024 6:01 PM EST CULTURE BODY FLUID WITH GRAM STAIN Routine 02/27/2024 6:01 PM EST US PARACENTESIS W IMAGE GUIDANCE Routine 02/27/2024 5:58 PM EST TRANSTHORACIC ECHOCARDIOGRAM (TTE) COMPLETE W/ CONTRAST Routine 02/27/2024 9:22 AM EST Liver cirrhosis secondary to CASTANEDA (nonalcoholic steatohepatitis) (CMS/HCC) PHOSPHORUS Routine 02/27/2024 4:56 AM EST MAGNESIUM Routine 02/27/2024 4:56 AM EST COMPREHENSIVE METABOLIC PANEL Routine 02/27/2024 4:56 AM EST COMPLETE BLOOD COUNT Routine 02/27/2024 4:53 AM EST IRON Routine 02/26/2024 11:25 PM EST FERRITIN Routine 02/26/2024 11:25 PM EST US ABDOMEN LIMITED Routine 02/26/2024 7: 45 PM EST TROPONIN I HIGH SENSITIVITY STAT 02/26/2024 1:30 PM EST B-TYPE NATRIURETIC PEPTIDE STAT 02/26/2024 1:30 PM EST URINALYSIS WITH REFLEX MICROSCOPIC AND CULTURE STAT 02/26/2024 12:30 PM EST URINALYSIS WITH REFLEX MICROSCOPIC AND CULTURE STAT 02/26/2024 12:30 PM EST CULTURE URINE STAT 02/26/2024 12:30 PM EST CBC WITH AUTO DIFFERENTIAL STAT 02/26/2024 12:29 PM EST BASIC METABOLIC PANEL STAT 02/26/2024 12:29 PM EST CBC AND DIFFERENTIAL STAT 02/26/2024 12:29 PM EST from Last 3 Months Results * CT Abdomen Pelvis w Contrast [...] Signed Date: 05/13/2024 07:37 ET Workstation ID: [id number] Transcribed By: Self Edit Transcribed Date: 05/13/2024 [...] Signed Date: 05/13/2024 07:37 ET Workstation ID: [id number] Transcribed By: Self Edit Transcribed Date: 05/13/2024 07:22 ET Han Luther DO IMG CT PROCEDURES * (ABNORMAL) Basic metabolic panel (05/11/2024 12:25 PM EST) Only the most recent of7 resultswithin the time period is included. Sodium 138 133 - 145 mmol/L LAB CHEMISTRY METHOD 05/11/2024 1:16 PM [facility] Potassium 4.3 3.5 - 5.5 mmol/L LAB CHEMISTRY METHOD 05/11/2024 1:16 PM [facility] Chloride 106 96 - 110 mmol/L LAB CHEMISTRY METHOD 05/11/2024 1:16 PM [facility] CO2 30 21 - 32 mmol/L LAB CHEMISTRY METHOD 05/11/2024 1:16 PM [facility] Anion Gap 2(L) 3 - 11 LAB CHEMISTRY METHOD 05/11/2024 1:16 PM [facility] Glucose 144(H) 70 - 100 mg/dL LAB CHEMISTRY METHOD 05/11/2024 1:16 PM [facility] BUN 21 5 - 25 mg/dL LAB CHEMISTRY METHOD 05/11/2024 1:16 PM [facility] Creatinine 0.61(L) 0.70 - 1.30 mg/dL LAB CHEMISTRY METHOD 05/11/2024 1:16 PM [facility] eGFR 106 >=60 mL/min/1. 73m2 LAB CHEMISTRY METHOD 05/11/2024 1:16 PM [facility] Comment:Calculation based on the??Chronic Kidney Disease Epidemiology Collaboration (CKD-EPI) equation refit??without adjustment for race. BUN/Creatinine Ratio 34.4 LAB CHEMISTRY METHOD 05/11/2024 1:16 PM [facility] Calcium 8.5 8.5 - 10.5 mg/dL LAB CHEMISTRY METHOD 05/11/2024 1:16 PM [facility] Blood Venous blood specimen / Unknown Venipuncture / Unknown 05/11/2024 12:25 PM EST 05/11/2024 12:43 PM EST [facility] LAB BLOOD ORDERABLES Performing Organization Address [facility] Co de Phone Number [facility] [address] [place] [address], [place] [phone] * Cell count with reflex differential, body fluid (05/11/2024 12:04 PM EST) Only the most recent of2 resultswithin the time period is included. Body Fluid Total Nucleated Cells 287 /mm3 LAB HEMETOLOGY METHOD 05/11/2024 1:44 PM EST [facility] Body Fluid RBC <1,000 /mm3 LAB HEMETOLOGY METHOD 05/11/2024 1:44 PM EST [facility] Body Fluid Color Yellow 05/11/2024 1:44 PM EST [facility] Body Fluid Clarity Clear 05/11/2024 1:44 PM EST [facility] Body Fluid Source Peritoneal 05/11/2024 1:44 PM EST [facility] Peritoneal Fluid Peritoneal cavity structure / Unknown 05/11/2024 12:04 PM EST 05/11/2024 12:11 PM EST [facility] - 05/11/2024 1:44 PM EST No reference ranges have been established for body fluids. Clinical correlation recommended. [facility] LAB BODY FLUIDS AND STOOLS ORDERABLES Performing Organization Address [facility]/ZIP Co de Phone Number [facility] [address] [place] [address], [place] [phone] * Differential body fluid (05/11/2024 12:04 PM EST) Only the most recent of2 resultswithin the time period is included. Fluid Neutrophils % 5 % 05/11/2024 1:44 PM EST [facility] Fluid Lymphocytes % 55 % 05/11/2024 1:44 PM EST [facility] Fluid Monocytes/Macrop hages 41 % 05/11/2024 1:44 PM EST [facility] Fluid Eosinophils % 0 % 05/11/2024 1:44 PM EST [facility] Fluid Basophils % 0 % 05/11/2024 1:44 PM EST [facility] Fluid Other Cells % 0 % 05/11/2024 1:44 PM EST [facility] Peritoneal Fluid Peritoneal cavity structure / Unknown 05/11/2024 12:04 PM EST 05/11/2024 12:11 PM EST [facility] LAB - 05/11/2024 1:44 PM EST No reference ranges have been established for body fluids. Clinical correlation recommended. [facility] LAB BODY FLUIDS AND STOOLS ORDERABLES [facility] [address] [place] [address], [place] [phone] * Protein, body fluid (05/11/2024 12:04 PM EST) Only the most recent of2 resultswithin the time period is included. Protein, Fluid 1.9 See Comment g/dL LAB CHEMISTRY METHOD 05/11/2024 12:50 PM EST [facility] Peritoneal Fluid Peritoneal cavity structure / Unknown 05/11/2024 12:04 PM EST 05/11/2024 12:11 PM EST [facility] - 05/11/2024 12:50 PM EST No reference ranges have been established for body fluids. Clinical correlation recommended. [employer] DO LAB BODY FLUIDS AND STOOLS ORDERABLES [facility] [address] [place] [address], [place] [phone] * Albumin, body fluid (05/11/2024 12:04 PM EST) Only the most recent of2 resultswithin the time period is included. Albumin, Fluid 0.9 See Comment g/dL LAB CHEMISTRY METHOD 05/11/2024 12:50 PM EST [facility] Peritoneal Fluid Peritoneal cavity structure / Unknown 05/11/2024 12:04 PM EST 05/11/2024 12:11 PM EST Narrative [facility] - 05/11/2024 12:50 PM EST No reference ranges have been established for body fluids. Clinical correlation recommended. Han Sloan DO LAB BODY FLUIDS AND STOOLS ORDERABLES [facility] [address] [place] [address], * [place] Paracentesis w Image Guidance (05/11/2024 12:02 PM EST) Only the most recent of3 resultswithin the time period is included. Anatomical Region Laterality Modality Abdomen Ultrasound 05/11/2024 12:4 4 PM EST Impressions 05/12/2024 9:44 AM EST Successful paracentesis of 6.9L ascitic fluid without complications. Patient sent for IV infusion of 50g 25% albumin -------- FINAL REPORT -------- Dictated By: Milady Chilel Dictated Date: 05/11/2024 12:44 ET Assigned Physician: Aurora Meng Reviewed and Electronically Signed By: Aurora Meng Signed Date: 05/12/2024 09:44 ET Workstation ID: [id number] Transcribed By: Self Edit Transcribed Date: 05/11/2024 12:45 ET Resident/PA/MEDIA BUYER: Milady Chilel Narrative 05/12/2024 9:44 AM EST HISTORY: Large volume ascites. TECHNIQUE: After written informed consent was obtained the patient was placed supine on the ultrasound stretcher and multiple images were obtained for characterization and localization of ascites. The skin was marked, prepped and draped in the usual sterile fashion. 2% lidocaine was used as local anesthetic. A paracentesis needle was advanced under gentle suction. When fluid aspirated the paracentesis catheter was threaded over the needle into the ascitic fluid. The needle was removed and the catheter was attached to tubing and then vacuum bottles. After completion of drainage the catheter was removed and a bandage was applied. The patient tolerated the procedure well and left the department in stable condition without any immediate complications. FINDINGS: Initial ultrasound images demonstrate large volume ascites. Pocket in right lower quadrant localized for drainage. Procedure Note Aurora Meng MD - 05/12/2024 HISTORY: Large volume ascites. TECHNIQUE: After written informed consent was obtained the patient wasplaced supine on the ultrasound stretcher and multiple images wereobtained for characterization and localization of ascites. The skin wasmarked, prepped and draped in the usual sterile fashion. 2% lidocaine wasused as local anesthetic. A paracentesis needle was advanced under gentlesuction. When fluid aspirated the paracentesis catheter was threaded overthe needle into the ascitic fluid. The needle was removed and the catheterwas attached to tubing and then vacuum bottles. After completion ofdrainage the catheter was removed and a bandage was applied. The patienttolerated the procedure well and left the department in stable conditionwithout any immediate complications. FINDINGS: Initial ultrasound images demonstrate large volume ascites. Pocket inright lower quadrant localized for drainage. IMPRESSION: Successful paracentesis of 6.9L ascitic fluid without complications.Patient sent for IV infusion of 50g 25% albumin -------- FINAL REPORT -------- Dictated By: Milady Chilel Dictated Date: 05/11/2024 12:44 ET Assigned Physician: Aurora Meng Reviewed and Electronically Signed By: Aurora Meng Signed Date: 05/12/2024 09:44 ET Workstation ID: [id number] Transcribed By: Self Edit Transcribed Date: 05/11/2024 12:45 ET Resident/PA/MEDIA BUYER: Milady Chilel Han Luther DO IMG US PROCEDURES * (ABNORMAL) CBC auto differential (04/07/2024 11:53 AM EST) Only the most recent of5 resultswithin the time period is included. WBC 4.4(L) 4.8 - 10.8 K/mcL LAB HEMETOLOGY METHOD 04/07/2024 2:22 PM [facility] RBC 4.20(L) 4.50 - 5.50 M/mcL LAB HEMETOLOGY METHOD 04/07/2024 2:22 PM [facility] Hemoglobin 14.3 13.5 - 17.5 g/dL LAB HEMETOLOGY METHOD 04/07/2024 2:22 PM [facility] Hematocrit 42.9 42.0 - 54.0 % LAB HEMETOLOGY METHOD 04/07/2024 2:22 PM [facility] MCV 102.1(H) 79.0 - 98.0 FL LAB HEMETOLOGY METHOD 04/07/2024 2:22 PM [facility] MCH 34.0(H) 27.0 - 32.0 pcg LAB HEMETOLOGY METHOD 04/07/2024 2:22 PM [facility] MCHC 33.3 32.0 - 37.0 g/dL LAB HEMETOLOGY METHOD 04/07/2024 2:22 PM [facility] RDW 13.4 11.0 - 15.0 % LAB HEMETOLOGY METHOD 04/07/2024 2:22 PM [facility] Platelets 104(L) 130 - 400 K/mcL LAB HEMETOLOGY METHOD 04/07/2024 2:22 PM [facility] MPV 11.1(H) 7.0 - 11.0 FL LAB HEMETOLOGY METHOD 04/07/2024 2:22 PM [facility] NRBC 0.0 <1.0 % LAB HEMETOLOGY METHOD 04/07/2024 2:22 PM [facility] NRBC Absolute 0.00 <0.10 K/mcL LAB HEMETOLOGY METHOD 04/07/2024 2:22 PM [facility] Neutrophils Relative 62.4 % LAB HEMETOLOGY METHOD 04/07/2024 2:22 PM [facility] Lymphocytes Relative 24.4 % LAB HEMETOLOGY METHOD 04/07/2024 2:22 PM [facility] Monocytes Relative 12.6 % LAB HEMETOLOGY METHOD 04/07/2024 2:22 PM [facility] Eosinophils Relative 0.2 % LAB HEMETOLOGY METHOD 04/07/2024 2:22 PM [facility] Basophils Relative 0.2 % LAB HEMETOLOGY METHOD 04/07/2024 2:22 PM [facility] Immature Granulocytes Relative 0.2 % LAB HEMETOLOGY METHOD 04/07/2024 2:22 PM [facility] Neutrophils Absolute 2.73 1.50 - 7.00 K/mcL LAB HEMETOLOGY METHOD 04/07/2024 2:22 PM [facility] Lymphocytes Absolute 1.07 1.00 - 5.00 K/mcL LAB HEMETOLOGY METHOD 04/07/2024 2:22 PM [facility] Monocytes Absolute 0.55 0.20 - 1.00 K/mcL LAB HEMETOLOGY METHOD 04/07/2024 2:22 PM [facility] Eosinophils Absolute 0.01 0.00 - 0.50 K/mcL LAB HEMETOLOGY METHOD 04/07/2024 2:22 PM [facility] Basophils Absolute 0.01 0.00 - 0.20 K/mcL LAB HEMETOLOGY METHOD 04/07/2024 2:22 PM [facility] Immature Granulocytes Absolute 0.01 0.00 - 0.03 K/mcL LAB HEMETOLOGY METHOD 04/07/2024 2:22 PM [facility] Blood Venous blood specimen / Unknown Venipuncture / Unknown 04/07/2024 11:53 AM EST 04/07/2024 11:53 AM EST [facility] LAB BLOOD ORDERABLES Performing Organization Address [facility]/ZIP Co de Phone Number [facility] [address] [place] [address], * Alpha fetoprotein tumor marker (04/07/2024 11:53 AM EST) AFP 4.2 0.0 - 8.0 ng/mL LAB CHEMISTRY METHOD 04/07/2024 3:03 PM EST [facility] Blood Venous blood specimen / Unknown Venipuncture / Unknown 04/07/2024 11:53 AM EST 04/07/2024 11:53 AM EST Narrative [facility] - 04/07/2024 3:03 PM EST The Siemens Advia Centaur Chemiluminescent Immunoassay is used. Results obtained with different assay methods or kits cannot be used interchangeably. Results cannot be interpreted as absolute evidence of the presence or absence of malignant disease. [facility] BLOOD ORDERABLES Performing Organization Address [facility] Co de Phone Number [facility] [address] [place] [address], [place] [phone] * Ferritin (04/07/2024 11:53 AM EST) Only the most recent of2 resultswithin the time period is included. Ferritin 118 26 - 388 ng/mL LAB CHEMISTRY METHOD 04/07/2024 3:00 PM EST [facility] Blood Venous blood specimen / Unknown Venipuncture / Unknown 04/07/2024 11:53 AM EST 04/07/2024 11:53 AM EST [facility] LAB BLOOD ORDERABLES Performing Organization Address City/[facility]/ZIP Co de Phone Number [facility] [address] [place] [address], * (ABNORMAL) Comprehensive metabolic panel (04/07/2024 11:53 AM EST) Only the most recent of3 resultswithin the time period is included. Sodium 138 133 - 145 mmol/L LAB CHEMISTRY METHOD 04/07/2024 3:00 PM [facility] Potassium 3.8 3.5 - 5.5 mmol/L LAB CHEMISTRY METHOD 04/07/2024 3:00 PM [facility] Chloride 107 96 - 110 mmol/L LAB CHEMISTRY METHOD 04/07/2024 3:00 PM [facility] CO2 28 21 - 32 mmol/L LAB CHEMISTRY METHOD 04/07/2024 3:00 PM [facility] Anion Gap 3 3 - 11 LAB CHEMISTRY METHOD 04/07/2024 3:00 PM [facility] Glucose 135(H) 70 - 100 mg/dL LAB CHEMISTRY METHOD 04/07/2024 3:00 PM [facility] BUN 15 5 - 25 mg/dL LAB CHEMISTRY METHOD 04/07/2024 3:00 PM [facility] Creatinine 0.63(L) 0.70 - 1.30 mg/dL LAB CHEMISTRY METHOD 04/07/2024 3:00 PM [facility] eGFR 105 >=60 mL/min/1. 73m2 LAB CHEMISTRY METHOD 04/07/2024 3:00 PM [facility] Comment:Calculation based on the??Chronic Kidney Disease Epidemiology Collaboration (CKD-EPI) equation refit??without adjustment for race. BUN/Creatinine Ratio 23.8 LAB CHEMISTRY METHOD 04/07/2024 3:00 PM [facility] Calcium 8.6 8.5 - 10.5 mg/dL LAB CHEMISTRY METHOD 04/07/2024 3:00 PM [facility] AST (SGOT) 31 10 - 42 unit/L LAB CHEMISTRY METHOD 04/07/2024 3:00 PM [facility] ALT (SGPT) 18 10 - 60 unit/L LAB CHEMISTRY METHOD 04/07/2024 3:00 PM [facility] Alkaline Phosphatase 143(H) 42 - 121 unit/L LAB CHEMISTRY METHOD 04/07/2024 3:00 PM [facility] Total Protein 6.2 6.0 - 8.0 g/dL LAB CHEMISTRY METHOD 04/07/2024 3:00 PM [facility] Albumin 2.9(L) 3.2 - 5.0 g/dL LAB CHEMISTRY METHOD 04/07/2024 3:00 PM [facility] Total Bilirubin 2.1(H) 0.0 - 1.4 mg/dL LAB CHEMISTRY METHOD 04/07/2024 3:00 PM [facility] Blood Venous blood specimen / Unknown Venipuncture / Unknown 04/07/2024 11:53 AM EST 04/07/2024 11:53 AM EST Han Sloan DO LAB BLOOD ORDERABLES [facility] [address] [place] [address], * (ABNORMAL) Complete blood count (03/08/2024 9:48 AM EST) Only the most recent of3 resultswithin the time period is included. WBC 4.6(L) 4.8 - 10.8 K/mcL LAB HEMETOLOGY METHOD 03/08/2024 12:55 PM [facility] RBC 4.20(L) 4.50 - 5.50 M/mcL LAB HEMETOLOGY METHOD 03/08/2024 12:55 PM [facility] Hemoglobin 14.5 13.5 - 17.5 g/dL LAB HEMETOLOGY METHOD 03/08/2024 12:55 PM EST [facility] Hematocrit 44.1 42.0 - 54.0 % LAB HEMETOLOGY METHOD 03/08/2024 12:55 PM [facility] MCV 105.3(H) 79.0 - 98.0 FL LAB HEMETOLOGY METHOD 03/08/2024 12:55 PM [facility] MCH 34.6(H) 27.0 - 32.0 pcg LAB HEMETOLOGY METHOD 03/08/2024 12:55 PM EST [facility] MCHC 32.9 32.0 - 37.0 g/dL LAB HEMETOLOGY METHOD 03/08/2024 12:55 PM [facility] RDW 14.7 11.0 - 15.0 % LAB HEMETOLOGY METHOD 03/08/2024 12:55 PM [facility] Platelets 102(L) 130 - 400 K/mcL LAB HEMETOLOGY METHOD 03/08/2024 12:55 PM EST [facility] MPV 11.3(H) 7.0 - 11.0 FL LAB HEMETOLOGY METHOD 03/08/2024 12:55 PM EST [facility] NRBC 0.0 <1.0 % LAB HEMETOLOGY METHOD 03/08/2024 12:55 PM [facility] NRBC Absolute 0.00 <0.10 K/mcL LAB HEMETOLOGY METHOD 03/08/2024 12:55 PM [facility] Blood Venous blood specimen / Unknown Venipuncture / Unknown 03/08/2024 9:48 AM EST 03/08/2024 11:22 AM EST Gerry Barksdale MD LAB BLOOD ORDERABLES [facility] [address] [place] [address], * Vitamin D 25 hydroxy (03/04/2024 9:21 AM EST) Vit D, 25-Hydroxy 33.8 30.0 - 80.0 ng/mL LAB CHEMISTRY METHOD 03/04/2024 12:40 PM EST [facility] Blood Venous blood specimen / Unknown Venipuncture / Unknown 03/04/2024 9:21 AM EST 03/04/2024 11:40 AM EST Gerry Barksdale MD LAB BLOOD ORDERABLES Performing Organization Address City/[facility]/ZIP Co de Phone Number [facility] [address] [place] [address], * Thyroid stimulating hormone (03/04/2024 9:21 AM EST) Pathologist [facility] TSH 3.12 0.40 - 4.00 mcIU/mL LAB CHEMISTRY METHOD 03/04/2024 12:40 PM EST [facility] Blood Venous blood specimen / Unknown Venipuncture / Unknown 03/04/2024 9:21 AM EST 03/04/2024 11:40 AM EST Gerry Barksdale MD LAB BLOOD ORDERABLES [facility] [address] [place] [address], * Hemoglobin A1c (03/04/2024 9:21 AM EST) Pathologist [facility] Hemoglobin A1C 4.7 <6.5 % LAB CHEMISTRY METHOD 03/04/2024 2:46 PM EST [facility] Mean Bld Glu Estim. 88 mg/dL LAB CHEMISTRY METHOD 03/04/2024 2:46 PM EST [facility] Blood Venous blood specimen / Unknown Venipuncture / Unknown 03/04/2024 9:21 AM EST 03/04/2024 11:40 AM EST Gerry Barksdale MD LAB BLOOD ORDERABLES Performing Organization Address [facility] de Phone Number [facility] [address] [place] [address], * Folate (03/04/2024 9:21 AM EST) Folate 11.0 2.8 - 17.0 ng/ml LAB CHEMISTRY METHOD 03/04/2024 1:03 PM EST [facility] Blood Venous blood specimen / Unknown Venipuncture / Unknown 03/04/2024 9:21 AM EST 03/04/2024 11:40 AM EST Gerry Barksdale MD LAB BLOOD ORDERABLES Performing Organization Address [facility] Co de Phone Number [facility] [address] [place] [address], * (ABNORMAL) Vitamin B12 (03/04/2024 9:21 AM EST) Pathologist [facility] Vitamin B-12 923(H) 250 - 900 pcg/mL LAB CHEMISTRY METHOD 03/04/2024 1:03 PM EST [facility] Blood Venous blood specimen / Unknown Venipuncture / Unknown 03/04/2024 9:21 AM EST 03/04/2024 11:40 AM EST Gerry Barksdale MD LAB BLOOD ORDERABLES Performing Organization Address City/[facility]/ZIP Co de Phone Number [facility] [address] [place] [address], [place] [phone] * Magnesium (03/01/2024 5:24 AM EST) Only the most recent of4 resultswithin the time period is included. Magnesium 2.0 1.9 - 2.6 mg/dL LAB CHEMISTRY METHOD 03/01/2024 7:08 AM EST [facility] Blood Venous blood specimen / Unknown Venipuncture / Unknown 03/01/2024 5:24 AM EST 03/01/2024 6:25 AM EST Hawa Floyd MD LAB BLOOD ORDERABLES Performing Organization Address [facility]/ZIP Co de Phone Number [facility] [address] [place] [address], [place] [phone] * Lavender tube (02/28/2024 5:54 AM EST) [facility] Extra Tube Hold for add-ons. 02/28/2024 9:01 AM EST [facility] Comment:Auto resulted. Blood Venous blood specimen / Unknown 02/28/2024 5:54 AM EST 02/28/2024 7:24 AM EST Hawa Floyd MD LAB BLOOD ORDERABLES Performing Organization Address [facility] Co de Phone Number [facility] [address] [place] [address], [place] [phone] * (ABNORMAL) Prothrombin time with INR (02/28/2024 5:54 AM EST) [facility] Protime 16.3(H) 10.6 - 13.9 sec LAB COAGULATION METHOD 02/28/2024 7:55 AM EST [facility] INR 1.3 LAB COAGULATION METHOD 02/28/2024 7:55 AM EST [facility] Blood Venous blood specimen / Unknown Venipuncture / Unknown 02/28/2024 5:54 AM EST 02/28/2024 7:19 AM EST Hawa Floyd MD LAB BLOOD ORDERABLES Performing Organization Address [facility]/ZIP Co de Phone Number [facility] [address] [place] [address], [place] [phone] * (ABNORMAL) Hepatic function panel (02/28/2024 5:50 AM EST) Total Protein 5.4(L) 6.0 - 8.0 g/dL LAB CHEMISTRY METHOD 02/28/2024 8:28 AM [facility] Albumin 2.6(L) 3.2 - 5.0 g/dL LAB CHEMISTRY METHOD 02/28/2024 8:28 AM [facility] Total Bilirubin 2.5(H) 0.0 - 1.4 mg/dL LAB CHEMISTRY METHOD 02/28/2024 8:28 AM [facility] Bilirubin, Direct 1.2(H) 0.0 - 0.3 mg/dL LAB CHEMISTRY METHOD 02/28/2024 8:28 AM [facility] Bilirubin, Indirect 1.3(H) 0.0 - 1.1 mg/dL LAB CHEMISTRY METHOD 02/28/2024 8:28 AM [facility] ALT (SGPT) 23 10 - 60 unit/L LAB CHEMISTRY METHOD 02/28/2024 8:28 AM [facility] AST (SGOT) 33 10 - 42 unit/L LAB CHEMISTRY METHOD 02/28/2024 8:28 AM [facility] Alkaline Phosphatase 122(H) 42 - 121 unit/L LAB CHEMISTRY METHOD 02/28/2024 8:28 AM [facility] Blood Venous blood specimen / Unknown Venipuncture / Unknown 02/28/2024 5:50 AM EST 02/28/2024 7:19 AM EST Hawa Floyd MD LAB BLOOD ORDERABLES [facility] [address] [place] [address], * Ammonia (02/28/2024 5:49 AM EST) Pathologist [facility] Ammonia 30 11 - 35 mcmol/L LAB CHEMISTRY METHOD 02/28/2024 7:49 AM [facility] Blood Venous blood specimen / Unknown Venipuncture / Unknown 02/28/2024 5:49 AM EST 02/28/2024 7:19 AM EST Hawa Floyd MD LAB BLOOD ORDERABLES Performing Organization Address [facility] de Phone Number [facility] [address] [place] [address], * Culture body fluid with gram stain (02/27/2024 6:01 PM EST) Fluid Culture No growth at 3 days LAB MICROBIOLOGY METHOD 03/01/2024 9:42 AM EST [facility] Gram Stain Result No polymorphonuclear leukocytes, No epithelial cells, and No organisms noted 03/01/2024 9:42 AM EST [facility] Ascitic fluid (substance) Peritoneal cavity structure / Unknown 02/27/2024 6:01 PM EST 02/27/2024 6:54 PM EST Narrative [facility] - 03/01/2024 9:42 AM EST Testing performed on unspun fluid. Hawa Floyd MD LAB MICROBIOLOGY - G ENERAL ORDERABLES Performing Organization Address [facility] de Phone Number [facility] [address] [place] [address], * TRANSTHORACIC ECHOCARDIOGRAM (TTE) COMPLETE W/ CONTRAST (02/27/2024 9:22 AM EST) BSA 2.69 m2 CV PACS Anatomical Region Laterality Modality Ultrasound Narrative 02/27/2024 10:52 AM EST 1. ??Technically difficult study. ??Ultrasound enhancing agent (Definity contrast) was used for better delineation of the endocardial borders. ?? Despite administration of Definity contrast, only very limited images were obtained. 2. ??The left ventricle was not well-visualized despite the administration of Definity contrast. ??Unable to adequately evaluate the LV size, wall thickness, and regional wall motion. ??On very limited images, the LV function appears to be preserved; although cannot determine a specific LV ejection fraction given the available images. 3. ??The left atrium, right atrium, and right ventricle were not adequately visualized. 4. ??The cardiac valves were not adequately visualized. ??On limited Doppler interrogation, there does not appear to be significant aortic stenosis or pulmonic valve stenosis. ??Unable to comment on the presence or absence of regurgitation in the cardiac valves. ??Unable to comment on the presence or absence of stenosis in the mitral valve and tricuspid valve. 5. ??On limited images, there appears to be evidence of a small circumferential pericardial effusion. ??Unable to evaluate the hemodynamic significance of the effusion given the available images. 7. ??On limited images, there appears to be evidence of a large size echolucency with apparent fibrinous material within this space which may suggestive of a complex ascitic fluid. ??Would recommend to consider further evaluation with a dedicated abdominal ultrasound or abdominal CT scan. Left Ventricle Left ventricle was not well visualized despite the administration of Definity contrast. Unable to adequately evaluate the LV size, wall thickness, and regional wall motion. On very limited images, the LV function appears to be preserved; although cannot determine a specific LV ejection fraction given the available images Right Ventricle Right ventricle was not well visualized. Left Atrium Left atrium was not well visualized. Right Atrium Right atrium was not well visualized. Mitral Valve The mitral valve was not well visualized. Tricuspid Valve The tricuspid valve was not well visualized. Aortic Valve The aortic valve was not well visualized. No significant aortic stenosis on Doppler interrogation. Pulmonic Valve The pulmonic valve was not well visualized. No significant pulmonic stenosis on Doppler interrogation. Ascending Aorta The aorta was not well visualized. Pericardium There is an anterior fat pad. There is a small circumferential pericardial effusion. Unable to evaluate the hemodynamic significance of the effusion given the available images. On limited images, there appears to be evidence of a large sized echolucent space noted anteriorly with apparent fibrinous material within this space (this was noted on the subcostal images); which could be secondary to significant complex ascites. Would recommend to consider further evaluation with a dedicated abdominal ultrasound or abdominal CT scan. Study Details Overall the study quality was technically difficult. Definity contrast was given to enhance imaging. Study was difficult due to: patient body habitus. Girish Jack NP CV ECHO PROCEDURES * Phosphorus (02/27/2024 4:56 AM EST) Phosphorus 3.3 2.5 - 4.5 mg/dL LAB CHEMISTRY METHOD 02/27/2024 6:56 AM EST [facility] Blood Venous blood specimen / Unknown Venipuncture / Unknown 02/27/2024 4:56 AM EST 02/27/2024 6:17 AM EST Napoleon Neely MD LAB BLOOD ORDERABLES Performing Organization Address City/[facility]/ZIP Co de Phone Number [facility] [address] [place] [address], [place] [phone] * Iron (02/26/2024 11:25 PM EST) [facility] Iron 85 50 - 160 mcg/dL LAB CHEMISTRY METHOD 02/27/2024 12:16 AM EST [facility] Blood Venous blood specimen / Unknown Venipuncture / Unknown 02/26/2024 11:25 PM EST 02/26/2024 11:28 PM EST Girish Jack NP LAB BLOOD ORDERABLES Performing Organization Address City/[facility]/ZIP Co de Phone Number [facility] [address] [place] [address], [place] [phone] * [place] Abdomen Limited (02/26/2024 7:45 PM EST) Anatomical Region Laterality Modality Body Ultrasound 02/26/2024 8:02 PM EST Impressions 02/26/2024 8:02 PM EST Impression: Large amount of ascites. This document has been electronically signed by: Umberto Larry MD on 02/26/2024 20:02:25 Narrative 02/26/2024 8:02 PM EST Limited abdomen ultrasound. Findings: There is a large amount of ascites throughout the abdomen. Procedure Note Ricco Larry MD - 02/26/2024 Limited abdomen ultrasound. Findings: There is a large amount of ascites throughout the abdomen. IMPRESSION: Impression: Large amount of ascites. This document has been electronically signed by: Umberto Larry MD on 02/26/2024 20:02:25 Girish Jack MEDIA BUYER IMG US PROCEDURES * Troponin I high sensitivity (02/26/2024 1:30 PM EST) Pathologist [facility] High Sensitivity Troponin I 11 <=79 ng/L LAB CHEMISTRY METHOD 02/26/2024 2:24 PM EST [facility] Blood Venous blood specimen / Unknown Venipuncture / Unknown 02/26/2024 1:30 PM EST 02/26/2024 1:49 PM EST Narrative [facility] - 02/26/2024 2:24 PM EST High levels of biotin in samples may falsely decrease hsTroponin values. ??Use caution when interpreting hsTroponin results in patients taking biotin who exhibit renal impairment (eGFR <60) or in patients taking more than 20 mg/day of biotin. Emily Singh DO LAB BLOOD ORDERAB LES Performing Organization Address [facility]/ZIP Co de Phone Number [facility] [address] [place] [address], * B-type natriuretic peptide (02/26/2024 1:30 PM EST) [facility] BNP 57 <=100 pcg/mL LAB CHEMISTRY METHOD 02/26/2024 2:31 PM EST [facility] Blood Venous blood specimen / Unknown Venipuncture / Unknown 02/26/2024 1:30 PM EST 02/26/2024 1:49 PM EST Emily Singh DO LAB BLOOD ORDERAB LES [facility] [address] [place] [address], [place] [phone] * (ABNORMAL) Urinalysis with reflex microscopic and culture (02/26/2024 12:30 PM EST) Specific [place] Urine 1.028 1.003 - 1.030 LAB URINALYSIS - AUTOMATED METHOD 02/26/2024 1:06 PM [facility] pH, Urine 6.5 5.0 - 8.0 pH LAB URINALYSIS - AUTOMATED METHOD 02/26/2024 1:06 PM [facility] Leukocytes, Urine Trace(A) Negative LAB URINALYSIS - AUTOMATED METHOD 02/26/2024 1:06 PM [facility] Nitrite, Urine Positive(A) Negative LAB URINALYSIS - AUTOMATED METHOD 02/26/2024 1:06 PM [facility] Protein, Urine Trace <=Trace mg/dL LAB URINALYSIS - AUTOMATED METHOD 02/26/2024 1:06 PM [facility] Glucose, Urine Negative Negative mg/dL LAB URINALYSIS - AUTOMATED METHOD 02/26/2024 1:06 PM [facility] Ketones, Urine Trace(A) Negative mg/dL LAB URINALYSIS - AUTOMATED METHOD 02/26/2024 1:06 PM [facility] Urobilinogen , Urine >=8.0(A) 0.2 - 1.0 mg/dL LAB URINALYSIS - AUTOMATED METHOD 02/26/2024 1:06 PM [facility] Bilirubin, Urine Moderate(A) Negative LAB URINALYSIS - AUTOMATED METHOD 02/26/2024 1:06 PM [facility] Blood, Urine Negative Negative LAB URINALYSIS - AUTOMATED METHOD 02/26/2024 1:06 PM [facility] RBC, Urine 7.5(H) 0 - 4 /HPF 02/26/2024 1:06 PM [facility] WBC, Urine 1.8 0 - 4 /HPF 02/26/2024 1:06 PM [facility] Squamous Epithelial, Urine 68(H) 0 - 60 /LPF 02/26/2024 1:06 PM [facility] Crystals, Urine LT LIZ URATES /LPF LAB URINALYSIS - AUTOMATED METHOD 02/26/2024 1:06 PM [facility] Bacteria, Urine Negative Negative /HPF 02/26/2024 1:06 PM [facility] [facility] Hyaline Casts, Urine 2.44 0 - 3 /LPF 02/26/2024 1:06 PM [facility] Urine Urine specimen obtained by clean catch procedure / Unknown Non-blood Collection / Unknown 02/26/2024 12:30 PM EST 02/26/2024 12:41 PM EST Truong Carrera MD LAB URINE ORDERABLES Performing Organization Address City/[facility]/ZIP Co de Phone Number [facility] [address] [place] [address], [place] [phone] * Culture urine (02/26/2024 12:30 PM EST) Culture, Urine No growth 02/27/2024 1:01 PM EST [facility] Urine Urine specimen obtained by clean catch procedure / Unknown Non-blood Collection / Unknown 02/26/2024 12:30 PM EST 02/26/2024 1:06 PM EST Truong Carrera MD LAB MICROBIOLOGY - G ENERAL ORDERABLES [facility] [address] [place] [address], [place] [phone] from Last 3 Months Advance Directives Documents on File Type Date 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 Do not modify or discontinue any currently active code status orders. Care Teams Pediatric Critical Care Nurse Relationship Specialty Start Date End Date Dalia Harmon PA [address] [place] [address], [address] [place], [place] [id number] PCP - General 05/10/24
--- OUTSIDE RECORDS SUMMARY | 2024-05-13 15:06 | XMS_ITS | Encounter Summary ---
Author Organization [facility] Address [address] [place] [address] Care Team Providers Care Nicu Rn Name Role Phone Em Dixon DO Primary Care Provider [phone] Reason for Visit * Reason Onset Date Comments faxed order 03/30/2024 Silvia alston [place]ney stephen#[id number] Encounter Details Date Type Department Care Team (Late st Contact Info) Description 03/30/2024 Telephone Internal Medicine [facility] [place] [address] [place] [address] Em Dixon DO [address] [place] [address] faxed order ([facility] tracking#[id number]) Social History Tobacco Use Types Packs/Day Years [...] as of this encounter Progress Notes * Carmela Manzo - 03/30/2024 10:21 AM EST Faxed order received from [facility] tracking#[id number] . Please review, sign, and fax back [phone] Placed in providers bin documented in this encounter Plan of Treatment Not on file documented as of this encounter Visit Diagnoses Not on filedocumented in this encounter Care Teams Nicu Rn Relationship Specialty Start Date End Date Em Dixon DO [address] [place] [address] PCP - General Internal Medicine 03/08/24 05/09/24 documented as of this encounter
--- OUTSIDE RECORDS SUMMARY | 2024-05-13 15:06 | XMS_ITS | Encounter Summary ---
Author Organization [facility] Address [address] [place] [phone] Care Team Providers Care Double Needle Operator Lockstitch Name Role Phone Dalia Harmon Primary Care Provider [phone] Reason for Visit * Reason Onset Date Comments Faxed Order 05/10/2024 Silvia HORANA Encounter Details Date Type Department Care Team (Late st Contact Info) Description 05/10/2024 Telephone Internal Medicine - [facility] [address] [place] [address] [facility] [address] [place] [address] Faxed Order (Silvia HORANA) Social History Tobacco Use Types Packs/Day Years [...] as of this encounter Progress Notes * Krystal Patterson - 05/10/2024 3:00 PM EST Orders from Silvia HORANA placed in [facility]. Please complete and fax back to [phone] . Thank you. documented in this encounter Plan of Treatment Not on file documented as of this encounter Visit Diagnoses Not on filedocumented in this encounter Care Teams Double Needle Operator Lockstitch Relationship Specialty Start Date End Date Dalia Harmon PA [address] [place] [address], [address] [place] [address] PCP - General 05/10/24 documented as of this encounter
--- OUTSIDE RECORDS SUMMARY | 2024-05-13 15:06 | XMS_ITS | Encounter Summary ---
Author Organization [facility] Address [address] [place] [address] Care Team Providers Care An/Ssn 2 4 Operator Name Role Phone JaycobEm frank Primary Care Provider [phone] Reason for Referral * Consultation (Urgent) - Pending Review Specialty Diagnoses / Procedures Referred By Aliya harris Referred To Contact Interventional Radiology Diagnoses 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) Han Sloan DO [address] [address] Referral ID Status Reason Start Date Expiration Date Visits Requested Visits Authorized [id number] Pending Review Specialty Services Required 05/05/2024 05/05/2025 1 1 * Imaging (Emergency) - Pending Review Specialty Diagnoses / Procedures Referred By Aliya harris Referred To Contact Radiology Diagnoses 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) Procedures US Paracentesis w Image Guidance Han Sloan DO [address] [address] [facility] Interventional Radiology [address] [place] [address] Referral ID Status Reason Start Date Expiration Date V isits Requested Visits Authorized [id number] Pending Review 05/05/2024 05/05/2025 1 1 Encounter Details Date Type Department Care Team ([facility] st Contact Info) Description 05/05/2024 Telephone Gastroenterology - [place] [address] [place] [address] Han Sloan DO [address] [place] [address] Social History Tobacco Use Types Packs/Day Years [...] Progress Notes * Amairani Hood MA - 05/05/2024 2:32 PM EST Elinor pt's ENVIRONMENTAL TECH informed. * Amairani Hood MA - 05/05/2024 10:54 AM EST Images from the original note were not included. Han Sloan, DO You49 minutes ago (10:04 AM) Absolutely. Lets order an urgent paracentesis, large-volume with albumin replacement. Please propose the urgent paracentesis order and the fluid albumin, total protein and cell count. If this cannot be done within 24 to 48 hours lets have the patient come into the ED for an urgent paracentesis and kidney function evaluation. Thank you very much. * Amairani Hood MA - 05/05/2024 9:22 AM EST Pts ENVIRONMENTAL TECH Elinor called, patient is filling with fluid. Abdominal /crotch swelling. Wondering if we can order paracentesis. Call pt back documented in this encounter Plan of Treatment Scheduled Referrals Name Type Priority Associated Diagnoses Order Schedule Ambulatory referral to Interventional Radiology Outpatient Referral Routine 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) 1 Occurrences starting 05/05/2024 until 05/05/2025 documented as of this encounter Results * US Paracentesis w Image Guidance (05/11/2024 12:02 PM EST) Anatomical Region Laterality Modality Abdomen Ultrasound 05/11/2024 [...] Signed Date: 05/12/2024 09:44 ET Workstation ID: [id number] Transcribed By: Self Edit Transcribed Date: 05/11/2024 12:45 ET Resident/PA/SWEDISH MASSEUSE: Milady Chilel Narrative 05/12/2024 9:44 AM EST [...] Signed Date: 05/12/2024 09:44 ET Workstation ID: [id number] Transcribed By: Self Edit Transcribed Date: 05/11/2024 12:45 ET Resident/PA/SWEDISH MASSEUSE: Milady Chilel Han Sloan DO [facility] [place]EDURES documented in this encounter Visit Diagnoses Diagnosis 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)- Primary 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) documented in this encounter Care Teams An/Ssn 2 4 Operator Relationship Specialty Start Date End Date Em Dixon DO [address] [place] [address] PCP - General Internal Medicine 03/08/24 05/09/24 documented as of this encounter
--- OUTSIDE RECORDS SUMMARY | 2024-05-13 15:06 | XMS_ITS | Encounter Summary ---
Author Organization [facility] Address [address] [place] [address] Care Team Providers Care Extractions Technologist Name Role Phone Em Dixon DO Primary Care Provider [phone] Reason for Visit * Reason Onset Date Comments Faxed Order 04/05/2024 Silvia HORANA (Dis charge Summary) Encounter Details Date Type Department Care Team (Late st Contact Info) Description 04/05/2024 Telephone Internal Medicine - [facility] [address] [place] [address] Em Dixon DO [address] [place] [address] Faxed Order (Silvai HORANA (Discharge Summary)) Social History Tobacco Use Types Packs/Day Years [...] as of this encounter Progress Notes * Yuliya Dodson MA - 04/16/2024 2:35 PM EST Signed and faxed * Krystal Patterson - 04/05/2024 11:07 AM EST Orders from Silvia FULTON placed in [facility] bin. Please complete and fax back to [phone]. Thank you. documented in this encounter Plan of Treatment Not on file documented as of this encounter Visit Diagnoses Not on filedocumented in this encounter Care Teams Extractions Technologist Relationship Specialty Start Date End Date [facility] [address] [place] [address] [place] [address] PCP - General Internal Medicine 03/08/24 05/09/24 documented as of this encounter
--- OUTSIDE RECORDS SUMMARY | 2024-05-13 15:06 | XMS_ITS | Encounter Summary ---
Author Organization [facility] Address [address] [place] [address] Care Team Providers Care Jumpbasting Facing Baster Name Role Phone Em Dixon DO Primary Care Provider [phone] Reason for Visit * Reason Onset Date Comments Faxed Order 04/02/2024 Silvia VNA (Mis sed Visit) Encounter Details Date Type Department Care Team (Late st Contact Info) Description 04/02/2024 Telephone Internal Medicine - [facility] [address] [place] [address] Em Dixon DO [address] [place] [address] Faxed Order (Silvia VNA (Missed Visit)) Social History Tobacco Use Types Packs/Day Years [...] Progress Notes * Yuliya Dodson MA - 04/02/2024 1:05 PM EST Signed and faxed * Krystal Patterson - 04/02/2024 11:22 AM EST Orders from Silvia FULTON placed in [facility] bin. Please complete and fax back to [phone]. Thank you. documented in this encounter Plan of Treatment Not on file documented as of this encounter Visit Diagnoses Not on filedocumented in this encounter Care Teams Jumpbasting Facing Baster Relationship Specialty Start Date End Date [facility] [address] [place] [address] PCP - General Internal Medicine 03/08/24 05/09/24 documented as of this encounter
--- OUTSIDE RECORDS SUMMARY | 2024-05-13 15:06 | XMS_ITS | Encounter Summary ---
Author Organization [facility] Address [address] [place] [address] Care Team Providers Care Architectural Engineering Teacher Name Role Phone Em Dixon DO Primary Care Provider [phone] Reason for Visit * Reason Onset Date Comments Faxed Order 04/05/2024 Silvia FULTON Encounter Details Date Type Department Care Team (Late st Contact Info) Description 04/05/2024 Telephone Internal Medicine - [facility] [address] [place] [address] Em Dixon DO [address] [place] [address] Faxed Order (Silvia FULTON) Social History Tobacco Use Types Packs/Day Years [...] and faxed * Krystal Patterson - 04/05/2024 11:06 AM EST Orders from Silvia HORANA placed in [facility] bin. Please complete and fax back to [phone]. Thank you. documented in this encounter Plan of Treatment Not on file documented as of this encounter Visit Diagnoses Not on filedocumented in this encounter Care Teams Architectural Engineering Teacher Relationship Specialty Start Date End Date [facility] [address] [place] [address] PCP - General Internal Medicine 03/08/24 05/09/24 documented as of this encounter
--- OUTSIDE RECORDS SUMMARY | 2024-05-13 15:06 | XMS_ITS | Encounter Summary ---
Author Organization [facility] Address [address] [place] [address] Care Team Providers Care Staff Development Coordinator Rn Name Role Phone Dalia Harmon Primary Care Provider [phone] Encounter Details Date Type Department Care Team (Late st Contact Info) Description 03/12/2024 Lab Requisition [facility] - Main Lab [address] [facility] [place] [address] Gerry Barksdale [address] [place] [address] [address] [place] [phone] Essential (primary) hypertension Social History Tobacco Use Types Packs/Day Years [...] on file documented as of this encounter Plan of Treatment Not on file documented as of this encounter Visit Diagnoses Diagnosis Essential (primary) hypertension Unspecified essential hypertension documented in this encounter Care Teams Staff Development Coordinator Rn Relationship Specialty Start Date End Date Dalia Harmon PA [address], [address] [place], [place] [phone] PCP - General 05/10/24 documented as of this encounter
--- OUTSIDE RECORDS SUMMARY | 2024-05-13 15:06 | XMS_ITS | Encounter Summary ---
Author Organization [facility] Address [address] [place] [address] Care Team Providers Care Shoe Dyer Name Role Phone Dalia Harmon Primary Care Provider [phone] Encounter Details Date Type Department Care Team (Late st Contact Info) Description 03/04/2024 Lab Requisition [facility] - Main Lab [address] [facility] [place] [address] Gerry Barksdale MD [address] [facility] 1 [place] [address] Vitamin D deficiency, unspecified; Type 2 diabetes mellitus without complications (CMS/HCC); Essential (primary) hypertension Social History Tobacco Use [...] Procedure Name Priority Date/Time Associated Diagnosis Comments VITAMIN D 25 HYDROXY Routine 03/04/2024 9:21 [...] mellitus without complications (CMS/HCC) Essential (primary) hypertension documented in this encounter Results * Vitamin D 25 hydroxy (03/04/2024 9:21 AM EST) Vit D, 25-Hydroxy 33.8 30.0 - 80.0 ng/mL LAB CHEMISTRY METHOD 03/04/2024 12:40 PM EST [facility] Blood Venous blood specimen / Unknown Venipuncture / Unknown 03/04/2024 9:21 AM EST 03/04/2024 11:40 AM EST Gerry Barksdale MD LAB BLOOD ORDERABLES [facility] [address] [place] [address], * Hemoglobin A1c (03/04/2024 9:21 AM EST) Hemoglobin A1C 4.7 <6.5 % LAB CHEMISTRY METHOD 03/04/2024 2:46 PM EST [facility] Mean Bld Glu Estim. 88 mg/dL LAB CHEMISTRY METHOD 03/04/2024 2:46 PM EST [facility] Blood Venous blood specimen / Unknown Venipuncture / Unknown 03/04/2024 9:21 AM EST 03/04/2024 11:40 AM EST Gerry Barksdale MD LAB BLOOD ORDERABLES [facility] [address] [place] [address], [place] [phone] * (ABNORMAL) Vitamin B12 (03/04/2024 9:21 AM EST) Vitamin B-12 923(H) 250 - 900 pcg/mL LAB CHEMISTRY METHOD 03/04/2024 1:03 PM EST [facility] Blood Venous blood specimen / Unknown Venipuncture / Unknown 03/04/2024 9:21 AM EST 03/04/2024 11:40 AM EST Gerry Barksdale MD LAB BLOOD ORDERABLES Performing Organization Address City/[facility]/ZIP Co de Phone Number [facility] [address] [place] [address], [place] [phone] * Folate (03/04/2024 9:21 AM EST) Folate 11.0 2.8 - 17.0 ng/ml LAB CHEMISTRY METHOD 03/04/2024 1:03 PM EST [facility] Blood Venous blood specimen / Unknown Venipuncture / Unknown 03/04/2024 9:21 AM EST 03/04/2024 11:40 AM EST Gerry Barksdale MD LAB BLOOD ORDERABLES Performing Organization Address City/[facility]/ZIP Co de Phone Number [facility] [address] [place] [address], [place] [phone] * Thyroid stimulating hormone (03/04/2024 9:21 AM EST) [facility] TSH 3.12 0.40 - 4.00 mcIU/mL LAB CHEMISTRY METHOD 03/04/2024 12:40 PM [facility] Blood Venous blood specimen / Unknown Venipuncture / Unknown 03/04/2024 9:21 AM EST 03/04/2024 11:40 AM EST Gerry Barksdale MD LAB BLOOD ORDERABLES [facility] [address] [place] [address], [place] [phone] * (ABNORMAL) Comprehensive metabolic panel (03/04/2024 9:21 AM EST) [facility] Sodium 137 133 - 145 mmol/L LAB CHEMISTRY METHOD 03/04/2024 1:03 PM [facility] Potassium 4.2 3.5 - 5.5 mmol/L LAB CHEMISTRY METHOD 03/04/2024 1:03 PM [facility] Chloride 100 96 - 110 mmol/L LAB CHEMISTRY METHOD 03/04/2024 1:03 PM [facility] CO2 29 21 - 32 mmol/L LAB CHEMISTRY METHOD 03/04/2024 1:03 PM [facility] Anion Gap 8 3 - 11 LAB CHEMISTRY METHOD 03/04/2024 1:03 PM [facility] Glucose 217(H) 70 - 100 mg/dL LAB CHEMISTRY METHOD 03/04/2024 1:03 PM [facility] BUN 18 5 - 25 mg/dL LAB CHEMISTRY METHOD 03/04/2024 1:03 PM [facility] Creatinine 0.64(L) 0.70 - 1.30 mg/dL LAB CHEMISTRY METHOD 03/04/2024 1:03 PM [facility] eGFR 104 >=60 mL/min/1. 73m2 LAB CHEMISTRY METHOD 03/04/2024 1:03 PM [facility] Comment:Calculation based on the??Chronic Kidney Disease Epidemiology Collaboration (CKD-EPI) equation refit??without adjustment for race. BUN/Creatinine Ratio 28.1 LAB CHEMISTRY METHOD 03/04/2024 1:03 PM [facility] Calcium 8.5 8.5 - 10.5 mg/dL LAB CHEMISTRY METHOD 03/04/2024 1:03 PM [facility] AST (SGOT) 38 10 - 42 unit/L LAB CHEMISTRY METHOD 03/04/2024 1:03 PM [facility] ALT (SGPT) 25 10 - 60 unit/L LAB CHEMISTRY METHOD 03/04/2024 1:03 PM [facility] Alkaline Phosphatase 136(H) 42 - 121 unit/L LAB CHEMISTRY METHOD 03/04/2024 1:03 PM [facility] Total Protein 5.7(L) 6.0 - 8.0 g/dL LAB CHEMISTRY METHOD 03/04/2024 1:03 PM [facility] Albumin 2.6(L) 3.2 - 5.0 g/dL LAB CHEMISTRY METHOD 03/04/2024 1:03 PM [facility] Total Bilirubin 2.8(H) 0.0 - 1.4 mg/dL LAB CHEMISTRY METHOD 03/04/2024 1:03 PM [facility] Blood Venous blood specimen / Unknown Venipuncture / Unknown 03/04/2024 9:21 AM EST 03/04/2024 11:40 AM EST Gerry Barksdale MD LAB BLOOD ORDERABLES [facility] [address] [place] [address], * (ABNORMAL) Complete blood count (03/04/2024 9:21 AM EST) [facility] Signature WBC 4.5(L) 4.8 - 10.8 K/mcL LAB HEMETOLOGY METHOD 03/04/2024 11:58 AM [facility] RBC 3.90(L) 4.50 - 5.50 M/mcL LAB HEMETOLOGY METHOD 03/04/2024 11:58 AM [facility] Hemoglobin 13.6 13.5 - 17.5 g/dL LAB HEMETOLOGY METHOD 03/04/2024 11:58 AM [facility] Hematocrit 40.7(L) 42.0 - 54.0 % LAB HEMETOLOGY METHOD 03/04/2024 11:58 AM [facility] MCV 104.4(H) 79.0 - 98.0 FL LAB HEMETOLOGY METHOD 03/04/2024 11:58 AM [facility] MCH 34.9(H) 27.0 - 32.0 pcg LAB HEMETOLOGY METHOD 03/04/2024 11:58 AM [facility] MCHC 33.4 32.0 - 37.0 g/dL LAB HEMETOLOGY METHOD 03/04/2024 11:58 AM [facility] RDW 14.3 11.0 - 15.0 % LAB HEMETOLOGY METHOD 03/04/2024 11:58 AM [facility] Platelets 101(L) 130 - 400 K/mcL LAB HEMETOLOGY METHOD 03/04/2024 11:58 AM [facility] MPV 11.0 7.0 - 11.0 FL LAB HEMETOLOGY METHOD 03/04/2024 11:58 AM [facility] NRBC 0.0 <1.0 % LAB HEMETOLOGY METHOD 03/04/2024 11:58 AM [facility] NRBC Absolute 0.00 <0.10 K/mcL LAB HEMETOLOGY METHOD 03/04/2024 11:58 AM EST [facility] Blood Venous blood specimen / Unknown Venipuncture / Unknown 03/04/2024 9:21 AM EST 03/04/2024 11:40 AM EST Gerry Barksdale MD LAB BLOOD ORDERABLES [facility] ([facility]) [facility] [address] [place] [address], documented in this encounter Visit Diagnoses Diagnosis Vitamin D deficiency, unspecified Type 2 diabetes mellitus without complications (CMS/HCC) Essential (primary) hypertension Unspecified essential hypertension documented in this encounter Care Teams Shoe Dyer Relationship Specialty Start Date End Date Dalia Harmon PA [address] [place] [address], [address] [place] [address] PCP - General 05/10/24 documented as of this encounter
--- OUTSIDE RECORDS SUMMARY | 2024-05-13 15:06 | XMS_ITS | Clinical Summary ---
Author Organization [facility] Address [address] [place] [address] Care Team Providers Care Pharmacist In Charge Name Role Phone Dago Ferro MD Primary Care Provider [phone] Allergies No known active allergies Medications Medication Sig Dispensed Refills Start Date End Date Status omeprazole (PriLOSEC) 40 MG capsule Take 40 mg by mouth daily. 0 Active oxyCODONE-acetaminophe n (PERCOCET) 10-325 MG per tablet Take 1 tablet by mouth every 4 (four) hours as needed for pain. 0 Active propranolol (INDERAL) 10 MG tablet Take 10 mg by mouth 3 (three) times a day. 0 Active zolpidem (AMBIEN) 10 MG tablet Take 10 mg by mouth every night at bedtime as needed for sleep. 0 Active ipratropium-albuterol (COMBIVENT RESPIMAT) 20-100 MCG/ACT inhaler Inhale 1 puff into the lungs 4 (four) times a day. 0 Active Umeclidinium-Vilantero l (ANORO ELLIPTA IN) Inhale into the lungs. 0 Active Active Problems No known active problems Social History Tobacco Use Types Packs/Day Years Used Date Smoking Tobacco: Former Smokeless Tobacco: Never Alcohol Use Standard Drinks/Week Comments No 0 (1 standard drink = 0.6 oz pur e alcohol) Sex and Gender Information Value Date Recorded Sex Assigned at Not on file Gender Identity Not on file Sexual Orientation Not on file Job Start Date Occupation Industry Not on file Not on file Not on file Last Filed Vital Signs Vital Sign Reading Time Taken Comments Blood Pressure 158/65 04/12/2019 1:36 PM EST Pulse 77 04/12/2019 1:36 PM EST Temperature 36.2 ??C (97.2 ??F) 04/12/2019 1:36 PM ES T Respiratory Rate - - Oxygen Saturation - - Inhaled Oxygen Concentration - - Weight 161 kg (355 lb) 04/12/2019 1:36 PM EST Height 167.6 cm (5' 6 ) 04/12/2019 1:36 PM EST Body Mass Index 57.3 04/12/2019 1:36 PM EST Plan of Treatment Health Maintenance Due Date Last Done Comments Hepatitis C Screening 1960 COVID-19 Vaccine (#1) 1958 Depression Screening 1970 Preventative Health Evaluation 01/24/1976 DTap / Tdap / Td (1 - Tdap) 1977 Colon Cancer Screening (Colonoscopy) 2003 Shingrix-Zoster Vaccine (1 of 2) 01/24/2008 Fall Risk Assessment 2023 Pneumococcal Vaccine (2 of 2 - PCV) 2023 03/23/2012 Influenza Vaccine (#1) 2023 RSV Adult > 60+ Yrs or Pregn ant (1 - 1-dose 75+ series) 2033 Hepatitis B Vaccines Aged Out No long er eligible based on patient's age to complete this topic RSV Ped < 20 months Aged Out No longe r eligible based on patient's age to complete this topic Care Teams Pharmacist In Charge Relationship Specialty Start Date End Date Dago Ferro MD PCP - General Internal Medicine 03/23/19
--- OUTSIDE RECORDS SUMMARY | 2024-05-13 15:06 | XMS_ITS | Encounter Summary ---
Author Organization [facility] Address [address] [place] [address] Care Team Providers Care Hand Trucker Name Role Phone Dalia Harmon Primary Care Provider [phone] Encounter Details Date Type Department Care Team (Late st Contact Info) Description 03/05/2024 Lab Requisition [facility] - Main Lab [address] [facility] [place] [address] Gerry Barksdale MD [address] [facility] [address] [place] [address] Essential (primary) hypertension Social History Tobacco Use [...] Procedure Name Priority Date/Time Associated Diagnosis Comments COMPLETE BLOOD COUNT Routine 03/08/2024 9:48 AM EST Essential (primary) hypertension BASIC METABOLIC PANEL Routine 03/08/2024 9:48 AM EST Essential (primary) hypertension documented in this encounter Results * (ABNORMAL) Basic metabolic panel (03/08/2024 9:48 AM EST) Sodium 138 133 - 145 mmol/L LAB CHEMISTRY METHOD 03/08/2024 1:23 PM [facility] Potassium 4.2 3.5 - 5.5 mmol/L LAB CHEMISTRY METHOD 03/08/2024 1:23 PM [facility] Chloride 102 96 - 110 mmol/L LAB CHEMISTRY METHOD 03/08/2024 1:23 PM [facility] CO2 26 21 - 32 mmol/L LAB CHEMISTRY METHOD 03/08/2024 1:23 PM [facility] Anion Gap 10 3 - 11 LAB CHEMISTRY METHOD 03/08/2024 1:23 PM [facility] Glucose 186(H) 70 - 100 mg/dL LAB CHEMISTRY METHOD 03/08/2024 1:23 PM [facility] BUN 14 5 - 25 mg/dL LAB CHEMISTRY METHOD 03/08/2024 1:23 PM [facility] Creatinine 0.76 0.70 - 1.30 mg/dL LAB CHEMISTRY METHOD 03/08/2024 1:23 PM [facility] eGFR 99 >=60 mL/min/1. 73m2 LAB CHEMISTRY METHOD 03/08/2024 1:23 PM [facility] Comment:Calculation based on the??Chronic Kidney Disease Epidemiology Collaboration (CKD-EPI) equation refit??without adjustment for race. BUN/Creatinine Ratio 18.4 LAB CHEMISTRY METHOD 03/08/2024 1:23 PM [facility] Calcium 8.7 8.5 - 10.5 mg/dL LAB CHEMISTRY METHOD 03/08/2024 1:23 PM [facility] Blood Venous blood specimen / Unknown Venipuncture / Unknown 03/08/2024 9:48 AM EST 03/08/2024 11:22 AM EST Gerry Barksdale MD LAB BLOOD ORDERABLES [facility] [address] [place] [address], * (ABNORMAL) Complete blood count (03/08/2024 9:48 AM EST) WBC 4.6(L) 4.8 - 10.8 K/mcL LAB HEMETOLOGY METHOD 03/08/2024 12:55 PM EST [facility] RBC 4.20(L) 4.50 - 5.50 M/mcL LAB HEMETOLOGY METHOD 03/08/2024 12:55 PM EST [facility] Hemoglobin 14.5 13.5 - 17.5 g/dL LAB HEMETOLOGY METHOD 03/08/2024 12:55 PM EST [facility] Hematocrit 44.1 42.0 - 54.0 % LAB HEMETOLOGY METHOD 03/08/2024 12:55 PM EST [facility] MCV 105.3(H) 79.0 - 98.0 FL LAB HEMETOLOGY METHOD 03/08/2024 12:55 PM EST [facility] MCH 34.6(H) 27.0 - 32.0 pcg LAB HEMETOLOGY METHOD 03/08/2024 12:55 PM EST [facility] MCHC 32.9 32.0 - 37.0 g/dL LAB HEMETOLOGY METHOD 03/08/2024 12:55 PM EST [facility] RDW 14.7 11.0 - 15.0 % LAB HEMETOLOGY METHOD 03/08/2024 12:55 PM EST [facility] Platelets 102(L) 130 - 400 K/mcL LAB HEMETOLOGY METHOD 03/08/2024 12:55 PM [facility] MPV 11.3(H) 7.0 - 11.0 FL LAB HEMETOLOGY METHOD 03/08/2024 12:55 PM EST [facility] NRBC 0.0 <1.0 % LAB HEMETOLOGY METHOD 03/08/2024 12:55 PM EST [facility] NRBC Absolute 0.00 <0.10 K/mcL LAB HEMETOLOGY METHOD 03/08/2024 12:55 PM EST [facility] Blood Venous blood specimen / Unknown Venipuncture / Unknown 03/08/2024 9:48 AM EST 03/08/2024 11:22 AM EST Gerry Barksdale MD LAB BLOOD ORDERABLES [facility] [address] [place] [address], documented in this encounter Visit Diagnoses Diagnosis Essential (primary) hypertension Unspecified essential hypertension documented in this encounter Care Teams Hand Trucker Relationship Specialty Start Date End Date Dalia Harmon PA [address] [place] [address], [address] [place] [address] PCP - General 05/10/24 documented as of this encounter
--- OUTSIDE RECORDS SUMMARY | 2024-05-13 15:06 | XMS_ITS | Encounter Summary ---
Author Organization [facility] Address [address] [place] [phone] Care Team Providers Care C Consultant Name Role Phone Em Dixon DO Primary Care Provider Reason for Visit * Reason Onset Date Comments Faxed Order 04/01/2024 Silvia FULTON Encounter Details Date Type Department Care Team (Late st Contact Info) Description 04/01/2024 Telephone Internal Medicine - [facility] [address] [place] [address] Em Dixon DO [address] [place] [address] Faxed Order ( Silvia FULTON ) Social History Tobacco Use Types Packs/Day Years [...] Notes * Yuliya Dodson [place] - 04/16/2024 2:36 PM EST Signed and faxed * Krystal Patterson - 04/01/2024 9:01 AM EST Orders from Silvia HORANA placed in [facility] bin. Please complete and fax back to [phone]. Thank you. documented in this encounter Plan of Treatment Not on file documented as of this encounter Visit Diagnoses Not on filedocumented in this encounter Care Teams C Consultant Relationship Specialty Start Date End Date [facility] [address] [place] [address] PCP - General Internal Medicine 03/08/24 05/09/24 documented as of this encounter
--- OUTSIDE RECORDS SUMMARY | 2024-05-13 15:06 | XMS_ITS | Encounter Summary ---
Author Organization [facility] Address [address] [place] [phone] Care Team Providers Care Hydrator Operator Name Role Phone Dalia Harmon Primary Care Provider [phone] Reason for Referral * Imaging (Emergency) - Pending Review Specialty Diagnoses / Procedures Referred By Aliya t Referred To Contact Radiology Diagnoses 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) Procedures US Paracentesis w Image Guidance Han Sloan DO [address] [address] [facility] Interventional Radiology [address] [place] [phone] Referral ID Status Reason Start Date Expiration Date V isits Requested Visits Authorized [id number] Pending Review 05/05/2024 05/05/2025 1 1 Reason for Visit * Imaging (Emergency) - Pending Review Specialty Diagnoses / Procedures Referred By Aliya harris Referred To Contact Radiology Diagnoses 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) Procedures US Paracentesis w Image Guidance Han Sloan DO [address] [address] [facility] Interventional Radiology [address] [place] [phone] Referral ID Status Reason Start Date Expiration Date V isits Requested Visits Authorized [id number] Pending Review 05/05/2024 05/05/2025 1 1 Encounter Details Date Type Department Care Team (Latest Contact Info) Description 05/11/2024 10:27 AM EST - 05/11/2024 11:59 PM EST Hospital Encounter [facility] Ultrasound [address] [place] [address] 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) Discharge Disposition: Home or Self Care Social [...] time each day. 30 each 03/01/2024 03/01/2025 naloxone (NARCAN) 4 mg/0.1 mL [...] Procedure Name Priority Date/Time Associated Diagnosis Comments BASIC METABOLIC PANEL Routine 05/11/2024 12:25 PM EST CELL COUNT WITH REFLEX DIFFERENTIAL, BODY FLUID Routine 05/11/2024 12:04 PM EST 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) DIFFERENTIAL BODY FLUID Routine 05/11/2024 12:04 PM EST 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) PROTEIN, BODY FLUID Routine 05/11/2024 1 2:04 PM EST 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) ALBUMIN, BODY FLUID Routine 05/11/2024 1 2:04 PM EST 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) US PARACENTESIS W IMAGE GUIDANCE STAT 05/11/2024 12:02 PM EST 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) documented in this encounter Results * (ABNORMAL) Basic metabolic panel (05/11/2024 12:25 PM EST) Sodium 138 133 - 145 mmol/L LAB CHEMISTRY METHOD 05/11/2024 1:16 PM EST [facility] Potassium 4.3 3.5 - 5.5 mmol/L LAB CHEMISTRY METHOD 05/11/2024 1:16 PM EST [facility] Chloride 106 96 - 110 mmol/L LAB CHEMISTRY METHOD 05/11/2024 1:16 PM [facility] CO2 30 21 - 32 mmol/L LAB CHEMISTRY METHOD 05/11/2024 1:16 PM EST [facility] Anion Gap 2(L) 3 - 11 LAB CHEMISTRY METHOD 05/11/2024 1:16 PM [facility] Glucose 144(H) 70 - 100 mg/dL LAB CHEMISTRY METHOD 05/11/2024 1:16 PM [facility] BUN 21 5 - 25 mg/dL LAB CHEMISTRY METHOD 05/11/2024 1:16 PM [facility] Creatinine 0.61(L) 0.70 - 1.30 mg/dL LAB CHEMISTRY METHOD 05/11/2024 1:16 PM [facility] eGFR 106 >=60 mL/min/1. 73m2 LAB CHEMISTRY METHOD 05/11/2024 1:16 PM [facility] Comment:Calculation based on the??Chronic Kidney Disease Epidemiology Collaboration (CKD-EPI) equation refit??without adjustment for race. BUN/Creatinine Ratio 34.4 LAB CHEMISTRY METHOD 05/11/2024 1:16 PM [facility] Calcium 8.5 8.5 - 10.5 mg/dL LAB CHEMISTRY METHOD 05/11/2024 1:16 PM [facility] Blood Venous blood specimen / Unknown Venipuncture / Unknown 05/11/2024 12:25 PM EST 05/11/2024 12:43 PM EST Han Sloan DO LAB BLOOD ORDERABLES [facility] [address] [place] [address], * Differential body fluid (05/11/2024 12:04 PM EST) Fluid Neutrophils % 5 % 05/11/2024 1:44 PM EST [facility] Fluid Lymphocytes % 55 % 05/11/2024 1:44 PM [facility] Fluid Monocytes/Macrop hages 41 % 05/11/2024 1:44 PM EST [facility] Fluid Eosinophils % 0 % 05/11/2024 1:44 PM EST [facility] Fluid Basophils % 0 % 05/11/2024 1:44 PM EST [facility] Fluid Other Cells % 0 % 05/11/2024 1:44 PM EST [facility] Peritoneal Fluid Peritoneal cavity structure / Unknown 05/11/2024 12:04 PM EST 05/11/2024 12:11 PM EST [facility] - 05/11/2024 1:44 PM EST No reference ranges have been established for body fluids. Clinical correlation recommended. Han Sloan DO LAB BODY FLUIDS AND STOOLS ORDERABLES [facility] [address] [place] [address], [place] [phone] * Cell count with reflex differential, body fluid (05/11/2024 12:04 PM EST) Body Fluid Total Nucleated Cells 287 /mm3 LAB HEMETOLOGY METHOD 05/11/2024 1:44 PM [facility] Body Fluid RBC <1,000 /mm3 LAB HEMETOLOGY METHOD 05/11/2024 1:44 PM [facility] Body Fluid Color Yellow 05/11/2024 1:44 PM [facility] Body Fluid Clarity Clear 05/11/2024 1:44 PM [facility] Body Fluid Source Peritoneal 05/11/2024 1:44 PM EST [facility] Peritoneal Fluid Peritoneal cavity structure / Unknown 05/11/2024 12:04 PM EST 05/11/2024 12:11 PM EST [facility] - 05/11/2024 1:44 PM EST No reference ranges have been established for body fluids. Clinical correlation recommended. Han Luther DO LAB BODY FLUIDS AND STOOLS ORDERABLES Performing Organization Address [facility] Co de Phone Number [facility] [address] [place] [address], [place] [phone] * Protein, body fluid (05/11/2024 12:04 PM EST) Protein, Fluid 1.9 See Comment g/dL LAB CHEMISTRY METHOD 05/11/2024 12:50 PM EST [facility] Peritoneal Fluid Peritoneal cavity structure / Unknown 05/11/2024 12:04 PM EST 05/11/2024 12:11 PM EST [facility] - 05/11/2024 12:50 PM EST No reference ranges have been established for body fluids. Clinical correlation recommended. Han Sloan DO LAB BODY FLUIDS AND STOOLS ORDERABLES Performing Organization Address [facility] Co de Phone Number [facility] [address] [place] [address], [place] [phone] * Albumin, body fluid (05/11/2024 12:04 PM EST) Albumin, Fluid 0.9 See Comment g/dL LAB CHEMISTRY METHOD 05/11/2024 12:50 PM EST [facility] Peritoneal Fluid Peritoneal cavity structure / Unknown 05/11/2024 12:04 PM EST 05/11/2024 12:11 PM EST [facility] - 05/11/2024 12:50 PM EST No reference ranges have been established for body fluids. Clinical correlation recommended. Han Sloan DO LAB BODY FLUIDS AND STOOLS ORDERABLES Performing Organization Address [facility] Co de Phone Number [facility] [address] [place] [address], [place] [phone] * US Paracentesis w Image Guidance (05/11/2024 [...] Signed Date: 05/12/2024 09:44 ET Workstation ID: [id number] Transcribed By: Self Edit Transcribed Date: 05/11/2024 12:45 ET Resident/PA/AIR POLLUTION COMPLIANCE INSPECTOR: Milady Chilel Narrative 05/12/2024 9:44 AM EST [...] Signed Date: 05/12/2024 09:44 ET Workstation ID: [id number] Transcribed By: Self Edit Transcribed Date: 05/11/2024 12:45 ET Resident/PA/AIR POLLUTION COMPLIANCE INSPECTOR: Milady Chilel Han Sloan DO IMG US PROCEDURES documented in this encounter Visit Diagnoses Diagnosis 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) documented in this encounter Administered Medications Inactive Administered Medications - up to 3 most recent administrations Medication Order MAR Action Action Date Dose Rate Site albumin human 25 % infusion 50 g 50 g, intravenous, Once, On Fri05/11/24 at 1230, For 1 dose, Do not exceed 1 mL/minute in patients with normal plasma volume; 3 mL/minute in patients with hypoproteinemia., Indications: post para New Bag 05/11/2024 12:30 PM EST 25 g 120 mL/hr lidocaine (XYLOCAINE) 1 % injection 10 mL 10 mL, injection, Once in imaging, Starting on Fri05/11/24 at 1203, For 1 dose Given 05/11/2024 12:03 PM EST 10 mL Right Lower Abdomen documented in this encounter Care Teams Hydrator Operator Relationship Specialty Start Date End Date Dalia Harmon PA [address] [facility], [address] [place] [address] PCP - General 05/10/24 documented as of this encounter
== END 2024-05-13 12:48 | disposition home or self-care (01) ==
LOC: HO.HVNA 12:47
PROVIDERS: Visit Provider Urology
DX: R31.9 Hematuria, unspecified (principal); B96.5 Pseudomonas (aeruginosa) (mallei) (pseudomallei) as the cause of diseases classified elsewhere
CPT/HCPCS: 81001; 81003; 87086; 87088; 87186

== ENCOUNTER 2024-06-23 10:29 | Outpatient (REF) | payer OTHER, SELFPAY ==
--- OUTSIDE RECORDS SUMMARY | 2024-06-23 19:34 | XMS_ITS | Clinical Summary ---
Author Organization [facility] Address [address] [place] [phone] Phone Care Team Providers Care Harp Regulator Name Role Phone Dalia Harmon Primary Care Provider [phone] Allergies Active Allergy Reactions Criticality Noted Date [...] left 06/26/19 Overview (12/25/2023): Was seen by [facility] who recommended weight loss prior to elective hip arthroplasty of left hip Was seen by [facility] who concurred with this Insomnia 04/13/2018 Chronic allergic conjunctivitis 04/13/2018 Anxiety 04/13/2018 Esophageal varices 12/03/2017 Hemochromatosis 12/03/2017 Overview (12/25/2023): 2 heterozygous gene mutations were found and recommended [id number] therapeutic phlebotomy. Follows with GI. Liver cirrhosis [...] Department Care Team Description 06/18/2024 Lab Requisition [facility] - Main Lab [address] [facility] [place] [address] Gerry Barksdale Sepsis, unspecified organism (CMS/HCC) 06/14/2024 Telephone Gastroenterology - [place] 175 [facility] 175 [facility] [address] [place] [address] Han Sloan DO provider call back 06/13/2024 12:02 PM EST - 06/16/2024 2:30 PM EST Hospital Encounter [facility] Medical Surgical Unit [address] [place] [phone] Barak Benjamin MD Flores, Carlos M, MD Kela, Kashyap Devendrabhai, MD Mohani, Priya, MD Bacteremia (Primary Dx); Cuello catheter in place; Urinary tract infection associated with indwelling urethral catheter, initial encounter (CMS/HCC); Hx of ascites; Anasarca Discharge Disposition: Home-Health Care [facility] 06/11/2024 10:01 PM EST - 06/12/2024 12:27 PM EST Emergency [facility] Emergency [address] [place] [phone] Vatrenko, Barak, MD Gross hematuria (Primary Dx); Tachycardia; Abnormal chest CT Discharge Disposition: Home or Self Care 06/04/2024 Lab Requisition [facility] [address] [place] [phone] Gerry Barksdale Sepsis, unspecified organism ([facility]/HCC) 06/03/2024 Telephone Gastroenterology - [place] [address] [facility] [address] [place] [phone] Han Sloan DO TESTING 05/28/2024 Lab Requisition [facility] Lab [address] [place] [phone] Gerry Barksdale Sepsis, unspecified organism ([facility]/HCC) 05/26/2024 Lab Requisition [facility] Lab [address] [place] [phone] Gerry Barksdale Weakness; Urinary tract infection, site not specified 05/25/2024 Telephone Gastroenterology - [place] [address] [facility] [address] [place] [phone] Han Sloan DO 05/24/2024 Telephone Gastroenterology [facility] [address] 175 [facility] 200 [place] [phone] Han Sloan DO provider call back 05/19/2024 3:40 PM EST - 05/25/2024 4:38 PM EST Hospital Encounter [facility] Surgical Unit [address] [place] [phone] Emily Singh DO Bukalo, Nermina, MD Nasser, Nada S, MD Kela, Kashyap Devendrabhai, MD Bilateral leg edema (Primary Dx); Urinary tract infection without hematuria, site unspecified; Hepatic cirrhosis, unspecified hepatic cirrhosis type, unspecified whether ascites present (CMS/HCC); Cellulitis of left leg; Severe sepsis ([facility]/HCC) Discharge Disposition: Assisted Facility 05/12/2024 9:15 AM EST - 05/12/2024 11:59 PM EST Hospital Encounter [facility] CT Scan [address] [place] [address] Decompensated cirrhosis (CMS/HCC); 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); Urinary retention Discharge Disposition: Home or Self Care 05/11/2024 10:27 AM EST - 05/11/2024 11:59 PM EST Hospital Encounter [facility] Ultrasound [address] [place] [address] 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) Discharge Disposition: Home or Self Care 05/10/2024 Telephone [facility] [place] [address] [place] [address] Em Dixon DO Faxed Order (Silvia FULTON) 05/05/2024 Telephone Gastroenterology [facility] [address] [phone] Han Sloan DO [facility] [address] [phone] Han Sloan DO provider call back [facility]/13[facility] [address] [phone] Claudia Diez [place] 04/09[facility] [address] [phone] Han Sloan DO provider call back 04/07/2024 11:50 AM EST Lab Draw Station - [address] [address] Decompensated cirrhosis (CMS/HCC); 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); Urinary retention; Anasarca; Liver cirrhosis secondary to CASTANEDA (nonalcoholic steatohepatitis) (CMS/HCC) 04/07/2024 11:00 AM EST Office Visit Gastroenterology [facility] [address] [phone] Han Sloan DO Decompensated cirrhosis (CMS/HCC) (Primary Dx); 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); Urinary retention 04/05/2024 Billing Patient Not Present [facility] [place] [phone] Em Dixon DO Hereditary hemochromatosis (CMS/HCC) (Primary [...] elsewhere classified 04/05/2024 [facility] [address] [place] [phone] Em Dixon DO Faxed Order ([employer] [facility] (Discharge Summary)) 04/05/2024 [facility] [address] [place] [phone] Em Dixon DO Faxed Order ([employer] [facility]) 04/02/2024 [facility] [address] [place] [phone] Em Dixon DO Faxed Order ([employer] [facility] (Missed Visit)) 04/01/2024 [facility] [address] [place] [phone] Em Dixon DO Faxed Order ( [employer] [facility] ) 03/30/2024 [facility]phone [facility] [address] [place] [phone] Em Dixon DO faxed order ([employer] tracking#[id number]) from Last 3 Months Surgical History Surgery Date Site/Laterality Comments BACK SURGERY PROCEDURE: HISTORICAL BACK SURGERY; COMMENT: spinal diskectomy, osteophytectomy x4 ESOPHAGOGASTRODUODENOSCOPY PROCEDURE: WI ESOPHAGOGASTRODUODENOSCOPY TRANSORAL DIAGNOSTIC COLONOSCOPY N/A PROCEDURE: HISTORICAL COLONOSCOPY OTHER SURGICAL HISTORY Right PROCEDURE: WI STAB PHLEBT VARICOSE VEINS 1 XTR > [...] Brother x2 Other: other Father cancer from [facility] estos Heart attack Grandparent maternal Obesity [...] 11:20 AM EST Office Visit Gastroenterology - [place] 175 [facility] 175 [facility] [address] [place] [phone] Han Sloan DO 175 [facility] 200 [place] [address] 07/06/2024 1:00 PM EDT Appointment [facility] Interventional Radiology [address] [place] [phone] 08/12/2024 10:30 AM EDT Ancillary Procedure [facility] [address] [place] [phone] Health Maintenance Due Date Last Done Comments [...] (06/15/2024 2:35 PM EST) Left Atrium Major Taylor 5.9 cm CV PACS LA Area Sys [...] GEMUSE QTc 485 ms GEMUSE P Wave Taylor 28 degrees GEMUSE R Taylor -36 degrees GEMUSE T Taylor 29 degrees GEMUSE ECG Interpretation Normal sinus rhythm Left axis deviation Right bundle branch block Abnormal ECG When compared with ECG of 12-JUN-2024 03:57, No significant change was found Confirmed by MD Felix, Cheney ([id number]) on 06/15/2024 5:37:07 PM GEMUSE 06/15/2024 12:5 3 PM EST 06/15/2024 5:37 PM EST Liang Reinoso MD ECG ORDERABLES Fin al Result GEMUSE * (ABNORMAL) Complete blood count (06/15/2024 6:38 AM EST) Only the most recent of7 resultswithin the time period is included. Pathologist [facility] WBC 4.1(L) 4.8 - 10.8 K/[facility] LAB HEMETOLOGY METHOD 06/15/2024 7:[address] [facility] RBC 3.50(L) 4.50 - 5.50 M/mcL LAB HEMETOLOGY METHOD 06/15/2024 7:42 AM [facility] Hemoglobin 11.9(L) 13.5 - 17.5 g/dL LAB HEMETOLOGY METHOD 06/15/2024 7:42 AM [facility] Hematocrit 35.3(L) 42.0 - 54.0 % LAB HEMETOLOGY METHOD 06/15/2024 7:42 AM [facility] MCV 102.3(H) 79.0 - 98.0 FL LAB HEMETOLOGY METHOD 06/15/2024 7:42 AM [facility] MCH 34.5(H) 27.0 - 32.0 pcg LAB HEMETOLOGY METHOD 06/15/2024 7:42 AM [facility] MCHC 33.7 32.0 - 37.0 g/dL LAB HEMETOLOGY METHOD 06/15/2024 7:42 AM [facility] RDW 17.0(H) 11.0 - 15.0 % LAB HEMETOLOGY METHOD 06/15/2024 7:42 AM [facility] Platelets 81(L) 130 - 400 K/mcL LAB HEMETOLOGY METHOD 06/15/2024 7:42 AM [facility] Comment:previously verified by slide MPV 11.0 7.0 - 11.0 FL LAB HEMETOLOGY METHOD 06/15/2024 7:42 AM [facility] NRBC 0.0 <1.0 % LAB HEMETOLOGY METHOD 06/15/2024 7:42 AM [facility] NRBC Absolute 0.00 <0.10 K/mcL LAB HEMETOLOGY METHOD 06/15/2024 7:42 AM [facility] Blood Venous blood specimen / Unknown Venipuncture / Unknown 06/15/2024 6:38 AM EST 06/15/2024 7:06 AM EST us Liang Reinoso MD LAB BLOOD ORDERABLE S Final Result Performing Organization Address City/[facility]/ZIP Co de Phone Number [facility] [address] [place] [address], [place] [phone] * Phosphorus (06/15/2024 6:38 AM EST) Only the most recent of5 resultswithin the time period is included. Phosphorus 3.0 2.5 - 4.5 mg/dL LAB CHEMISTRY METHOD 06/15/2024 7:[address] [facility] Blood Venous blood specimen / Unknown Venipuncture / Unknown 06/15/2024 6:38 AM EST 06/15/2024 7:06 AM EST us Liang Reinoso MD LAB BLOOD ORDERABLE S Final Result Performing Organization Address [facility] Co de Phone Number [facility] [address] [place] [address], [place] [phone] * Magnesium (06/15/2024 6:38 AM EST) Only the most recent of7 resultswithin the time period is included. Magnesium 1.9 1.9 - 2.6 mg/dL LAB CHEMISTRY METHOD 06/15/2024 7:[address] [facility] Blood Venous blood specimen / Unknown Venipuncture / Unknown 06/15/2024 6:38 AM EST 06/15/2024 7:06 AM EST us Liang Reinoso MD LAB BLOOD ORDERABLE S Final Result Performing Organization Address City/[facility]/ZIP Co de Phone Number [facility] [address] [place] [address], [place] [phone] * (ABNORMAL) Basic metabolic panel (06/15/2024 6:38 AM EST) Only the most recent of12 resultswithin the time period is included. Sodium 134 133 - 145 mmol/L LAB CHEMISTRY METHOD 06/15/2024 7:50 AM [facility] Potassium 4.2 3.5 - 5.5 mmol/L LAB CHEMISTRY METHOD 06/15/2024 7:50 AM [facility] Chloride 100 96 - 110 mmol/L LAB CHEMISTRY METHOD 06/15/2024 7:50 AM [facility] CO2 30 21 - 32 mmol/L LAB CHEMISTRY METHOD 06/15/2024 7:50 AM [facility] Anion Gap 4 3 - 11 LAB CHEMISTRY METHOD 06/15/2024 7:50 AM [facility] Glucose 115(H) 70 - 100 mg/dL LAB CHEMISTRY METHOD 06/15/2024 7:50 AM [facility] BUN 11 5 - 25 mg/dL LAB CHEMISTRY METHOD 06/15/2024 7:50 AM [facility] Creatinine 0.48(L) 0.70 - 1.30 mg/dL LAB CHEMISTRY METHOD 06/15/2024 7:50 AM [facility] eGFR 114 >=60 mL/min/1. 73m2 LAB CHEMISTRY METHOD 06/15/2024 7:50 AM [facility] Comment:Calculation based on the??Chronic Kidney Disease Epidemiology Collaboration (CKD-EPI) equation refit??without adjustment for race. BUN/Creatinine Ratio 22.9 LAB CHEMISTRY METHOD 06/15/2024 7:50 AM [facility] Calcium 8.2(L) 8.5 - 10.5 mg/dL LAB CHEMISTRY METHOD 06/15/2024 7:50 AM [facility] Blood Venous blood specimen / Unknown Venipuncture / Unknown 06/15/2024 6:38 AM EST 06/15/2024 7:06 AM EST Liang Reinoso MD LAB BLOOD ORDERABLE S Final Result [facility] [address] [place] [address], [place] [phone] * Cell count with reflex differential, body fluid (06/14/2024 10:19 AM EST) Only the most recent of2 resultswithin the time period is included. Body Fluid Total Nucleated Cells 218 /mm3 LAB HEMETOLOGY METHOD 06/14/2024 11:[address] [facility] Body Fluid RBC 1,000 /mm3 LAB HEMETOLOGY METHOD 06/14/2024 11:[address] [facility] Body Fluid Color Yellow 06/14/2024 11:[address] [facility] Body Fluid Clarity Clear 06/14/2024 11:[address] [facility] Body Fluid Source Peritoneal 06/14/2024 11:[address] [facility] Peritoneal Fluid Peritoneal cavity structure / Unknown Non-blood Collection / Unknown 06/14/2024 10:19 AM EST 06/14/2024 10:[address] [facility] - 06/14/2024 11:38 AM EST No reference ranges have been established for body fluids. Clinical correlation recommended. us Cristiana RAND LAB BODY FLUIDS AND STO OLS ORDERABLES Final Result [facility] [address] [place] [address], [place] [phone] * Culture body fluid with gram stain (06/14/2024 10:19 AM EST) Fluid Culture No growth at 3 days LAB MICROBIOLOGY METHOD 06/17/2024 11:[address] [facility] Gram Stain Result No polymorphonuclear leukocytes, No epithelial cells, and No organisms noted 06/17/2024 11:[address] [facility] Peritoneal Fluid Peritoneal cavity structure / Unknown Non-blood Collection / Unknown 06/14/2024 10:19 AM EST 06/14/2024 10:26 AM EST Cristiana RAND LAB MICROBIOLOGY - GENE RAL ORDERABLES Final Result Performing Organization Address [facility]/ZIP Co de Phone Number [facility] [address] [place] [address], [place] [phone] * Differential body fluid (06/14/2024 10:19 AM EST) Only the most recent of2 resultswithin the time period is included. Fluid Neutrophils % 4 % 06/14/2024 11:[address] [facility] Fluid Lymphocytes % 74 % 06/14/2024 11:[address] [facility] Fluid Monocytes/Macrop hages 22 % 06/14/2024 11:[address] [facility] Fluid Eosinophils % 0 % 06/14/2024 11:38 AM [facility] Fluid Basophils % 0 % 06/14/2024 11:38 AM [facility] Fluid Other Cells % 0 % 06/14/2024 11:38 AM [facility] Peritoneal Fluid Peritoneal cavity structure / Unknown Non-blood Collection / Unknown 06/14/2024 10:19 AM EST 06/14/2024 10:[address] [facility] - 06/14/2024 11:38 AM EST No reference ranges have been established for body fluids. Clinical correlation recommended. us Cristiana RAND LAB BODY FLUIDS AND STO OLS ORDERABLES Final Result [facility] [address] [place] [address], [place] [phone] * Specific gravity, body fluid (06/14/2024 10:19 AM EST) Spec Grav, Fluid 1.014 06/14/2024 11:[address] [facility] Peritoneal Fluid Non-blood Collection / Unknown 06/14/2024 10:19 AM EST 06/14/2024 10:26 AM EST [facility] - 06/14/2024 11:01 AM EST No reference ranges have been established for body fluids. Clinical correlation recommended. us Cristiana RAND LAB BODY FLUIDS AND STO OLS ORDERABLES Final Result Performing Organization Address [facility] Co de Phone Number [facility] [address] [place] [address], [place] [phone] * Protein, body fluid (06/14/2024 10:19 AM EST) Only the most recent of2 resultswithin the time period is included. [facility] Protein, Fluid 1.4 See Comment g/dL LAB CHEMISTRY METHOD 06/14/2024 11:[address] [facility] Peritoneal Fluid Non-blood Collection / Unknown 06/14/2024 10:19 AM EST 06/14/2024 10:26 AM EST [facility] LAB - 06/14/2024 11:19 AM EST No reference ranges have been established for body fluids. Clinical correlation recommended. us Cristiana RAND LAB BODY FLUIDS AND STO OLS ORDERABLES Final Result Performing Organization Address City/[facility]/ZIP Co de Phone Number [facility] [address] [place] [address], [place] [phone] * Lactate dehydrogenase, body fluid (06/14/2024 10:19 AM EST) LD, Fluid 78 See Comment unit/L LAB CHEMISTRY METHOD 06/14/2024 11:[address] [facility] Peritoneal Fluid Peritoneal cavity structure / Unknown Non-blood Collection / Unknown 06/14/2024 10:19 AM EST 06/14/2024 10:27 AM EST [facility] LAB - 06/14/2024 11:42 AM EST No reference ranges have been established for body fluids. Clinical correlation recommended. Cristiana RAND LAB BODY FLUIDS AND STO OLS ORDERABLES Final Result Performing Organization Address City/[facility]/ZIP Co de Phone Number [facility] [address] [place] [address], [place] [phone] * Glucose, body fluid (06/14/2024 10:19 AM EST) Glucose, Fluid 150 See Comment mg/dL LAB CHEMISTRY METHOD 06/14/2024 11:[address] [facility] Ascites 06/14/2024 10:1 9 AM EST 06/14/2024 10:26 AM EST [facility] LAB - 06/14/2024 11:28 AM EST No reference ranges have been established for body fluids. Clinical correlation recommended. Cristiana RAND LAB BODY FLUIDS AND STO OLS ORDERABLES Final Result Performing Organization Address City/[facility]/ZIP Co de Phone Number [facility] [address] [place] [address], [place] [phone] * Amylase, body fluid (06/14/2024 10:19 AM EST) Amylase, Fluid 24 See Comment unit/L LAB CHEMISTRY METHOD 06/14/2024 11:[address] [facility] Peritoneal Fluid Non-blood Collection / Unknown 06/14/2024 10:19 AM EST 06/14/2024 10:26 AM EST [facility] LAB - 06/14/2024 11:19 AM EST No reference ranges have been established for body fluids. Clinical correlation recommended. Cristiana RAND LAB BODY FLUIDS AND STO OLS ORDERABLES Final Result Performing Organization Address [facility] de Phone Number [facility] [address] [place] [address], [place] [phone] * Albumin, body fluid (06/14/2024 10:19 AM EST) Only the most recent of2 resultswithin the time period is included. Albumin, Fluid 0.6 See Comment g/dL LAB CHEMISTRY METHOD 06/14/2024 11:[address] [facility] Peritoneal Fluid Non-blood Collection / Unknown 06/14/2024 10:19 AM EST 06/14/2024 10:26 AM EST [facility] - 06/14/2024 11:19 AM EST No reference ranges have been established for body fluids. Clinical correlation recommended. Cristiana RAND LAB BODY FLUIDS AND STO OLS ORDERABLES Final Result Performing Organization Address [facility] de Phone Number [facility] [address] [place] [address], [place] [phone] * Non-gynecologic cytology (06/14/2024 10:19 AM EST) Final Diagnosis A. Peritoneal fluid, paracentesis, (ThinPrep, cell block): Negative for malignant cells. 06/17/2024 4:[address] [facility] Specimen A Adequacy Satisfactory for evaluation 06/17/2024 4:[address] [facility] Gross Description A. Peritoneal Cavity, : Received 115 ml of yellow fluid; 1 ThinPrep, 1 Cell block Cell block in formalin @1500; total formalin fixation time 6 hours. 06/17/2024 4:[address] [facility] Disclaimer Unless otherwise specified, all tissue is 10% NB formalin fixed and paraffin embedded. Technical cytopathology services provided by [facility], at [address] [place] [address] (CLIA # [id number]/Katya Lo MD, Computer Forensics Analyst.) 06/17/2024 4:[address] [facility] Peritoneal Fluid Peritoneal cavity structure / Unknown Non-blood Collection / Unknown 06/14/2024 10:19 AM EST 06/14/2024 2:30 PM EST us Cristiana RAND LAB CYTOLOGY ORDERABLES Final Result [facility] [address] [place] [address], [place] [phone] * US Paracentesis w Image Guidance (06/14/2024 [...] Signed Date: 06/15/2024 12:40 ET Workstation ID: [id number] Transcribed By: Self Edit Transcribed Date: 06/14/2024 11:29 ET Resident/PA/TOBACCO SORTER: Milady Chilel Narrative 06/15/2024 12:40 PM EST [...] Signed Date: 06/15/2024 12:40 ET Workstation ID: [id number] Transcribed By: Self Edit Transcribed Date: 06/14/2024 11:29 ET Resident/PA/TOBACCO SORTER: Milady Chilel us Cristiana RAND IMG US PROCEDURES Final Result * Lactate, with reflex (06/14/2024 5:26 AM EST) Only the most recent of3 resultswithin the time period is included. LACTIC ACID 1.6 0.4 - 2.0 mmol/L LAB CHEMISTRY METHOD 06/14/2024 6:[address] [facility] Blood Venous blood specimen / Unknown Venipuncture / Unknown 06/14/2024 5:26 AM EST 06/14/2024 5:33 AM EST us Napoleon Neely MD LAB BLOOD ORDERABLES Final Re sult [facility] [address] [place] [address], [place] [phone] * Culture blood (06/14/2024 5:22 AM EST) Only the most recent of6 resultswithin the time period is included. [facility] Culture, Blood No growth at 5 days 06/19/2024 6:[address] [facility] Blood Venous blood specimen / Unknown Venipuncture / Unknown 06/14/2024 5:22 AM EST 06/14/2024 5:33 AM EST us Napoleon Neely MD LAB MICROBIOLOGY - GENERAL OR DERABLES Final Result Performing Organization Address City/[facility]/ZIP Co de Phone Number [facility] [address] [place] [address], [place] [phone] * (ABNORMAL) CBC auto differential (06/14/2024 5:14 AM EST) Only the most recent of6 resultswithin the time period is included. Pathologist [facility] WBC 4.5(L) 4.8 - 10.8 K/[facility] LAB HEMETOLOGY METHOD 06/14/2024 6:[address] [facility] RBC 3.30(L) 4.50 - 5.50 M/[facility] LAB HEMETOLOGY METHOD 06/14/2024 6:00 AM [facility] Hemoglobin 11.6(L) 13.5 - 17.5 g/dL LAB HEMETOLOGY METHOD 06/14/2024 6:00 AM [facility] Hematocrit 35.2(L) 42.0 - 54.0 % LAB HEMETOLOGY METHOD 06/14/2024 6:00 AM [facility] MCV 107.0(H) 79.0 - 98.0 FL LAB HEMETOLOGY METHOD 06/14/2024 6:00 AM [facility] MCH 35.3(H) 27.0 - 32.0 pcg LAB HEMETOLOGY METHOD 06/14/2024 6:00 AM [facility] MCHC 33.0 32.0 - 37.0 g/dL LAB HEMETOLOGY METHOD 06/14/2024 6:00 AM [facility] RDW 17.5(H) 11.0 - 15.0 % LAB HEMETOLOGY METHOD 06/14/2024 6:00 AM [facility] Platelets 77(L) 130 - 400 K/mcL LAB HEMETOLOGY METHOD 06/14/2024 6:00 AM [facility] Comment:previously verified by slide MPV 10.3 7.0 - 11.0 FL LAB HEMETOLOGY METHOD 06/14/2024 6:00 AM [facility] NRBC 0.0 <1.0 % LAB HEMETOLOGY METHOD 06/14/2024 6:00 AM [facility] NRBC Absolute 0.00 <0.10 K/mcL LAB HEMETOLOGY METHOD 06/14/2024 6:00 AM [facility] Neutrophils Relative 75.4 % LAB HEMETOLOGY METHOD 06/14/2024 6:00 AM [facility] Lymphocytes Relative 13.9 % LAB HEMETOLOGY METHOD 06/14/2024 6:[address] [facility] Monocytes Relative 9.7 % LAB HEMETOLOGY METHOD 06/14/2024 6:00 AM [facility] Eosinophils Relative 0.4 % LAB HEMETOLOGY METHOD 06/14/2024 6:00 AM [facility] Basophils Relative 0.4 % LAB HEMETOLOGY METHOD 06/14/2024 6:00 AM [facility] Immature Granulocytes Relative 0.2 % LAB HEMETOLOGY METHOD 06/14/2024 6:00 AM [facility] Neutrophils Absolute 3.35 1.50 - 7.00 K/mcL LAB HEMETOLOGY METHOD 06/14/2024 6:00 AM [facility] Lymphocytes Absolute 0.62(L) 1.00 - 5.00 K/mcL LAB HEMETOLOGY METHOD 06/14/2024 6:00 AM [facility] Monocytes Absolute 0.43 0.20 - 1.00 K/mcL LAB HEMETOLOGY METHOD 06/14/2024 6:00 AM [facility] Eosinophils Absolute 0.02 0.00 - 0.50 K/mcL LAB HEMETOLOGY METHOD 06/14/2024 6:00 AM [facility] Basophils Absolute 0.02 0.00 - 0.20 K/mcL LAB HEMETOLOGY METHOD 06/14/2024 6:00 AM [facility] Immature Granulocytes Absolute 0.01 0.00 - 0.03 K/mcL LAB HEMETOLOGY METHOD 06/14/2024 6:00 AM [facility] Blood Venous blood specimen / Unknown Venipuncture / Unknown 06/14/2024 5:14 AM EST 06/14/2024 5:34 AM EST us Napoleon Neely MD LAB BLOOD ORDERABLES Final Re sult [facility] [address] [place] [address], [place] [phone] * ECG-Annotated (06/14/2024) Only the most recent of3 resultswithin the time period is included. Provider Onbase ECG ORDERABLES Final Result * Prostate specific antigen screen (06/13/2024 12:37 PM EST) PSA 0.18 0.00 - 4.00 ng/mL LAB CHEMISTRY METHOD 06/13/2024 2:[address] [facility] Blood Venous blood specimen / Unknown Venipuncture / Unknown 06/13/2024 12:37 PM EST 06/13/2024 12:[address] [facility] - 06/13/2024 2:31 PM EST The Siemens Advia EvergreenHealthaur Chemiluminescent Immunoassay is used. Results obtained with different assay methods or kits cannot be used interchangeably. Results cannot be interpreted as absolute evidence of the presence or absence of malignant disease. us Napoleon Neely MD LAB BLOOD ORDERABLES Final Re sult Performing Organization Address City/[facility]/ZIP Co de Phone Number [facility] [address] [place] [address], * (ABNORMAL) C-reactive protein (06/13/2024 12:37 PM EST) Only the most recent of2 resultswithin the time period is included. C-Reactive Protein 10.20(H) <=0.50 mg/dL LAB CHEMISTRY METHOD 06/13/2024 2:[address] [facility] Blood Venous blood specimen / Unknown Venipuncture / Unknown 06/13/2024 12:37 PM EST 06/13/2024 12:55 PM EST us Napoleon Neely MD LAB BLOOD ORDERABLES Final Re sult [facility] [address] [place] [address], [place] [phone] * (ABNORMAL) Hepatic function panel (06/13/2024 12:37 PM EST) Total Protein 5.9(L) 6.0 - 8.0 g/dL LAB CHEMISTRY METHOD 06/13/2024 2:[address] [facility] Albumin 2.3(L) 3.2 - 5.0 g/dL LAB CHEMISTRY METHOD 06/13/2024 2:[address] [facility] Total Bilirubin 2.6(H) 0.0 - 1.4 mg/dL LAB CHEMISTRY METHOD 06/13/2024 2:25 PM [facility] Bilirubin, Direct 1.4(H) 0.0 - 0.3 mg/dL LAB CHEMISTRY METHOD 06/13/2024 2:[address] [facility] Bilirubin, Indirect 1.2(H) 0.0 - 1.1 mg/dL LAB CHEMISTRY METHOD 06/13/2024 2:[address] [facility] ALT (SGPT) 20 10 - 60 unit/L LAB CHEMISTRY METHOD 06/13/2024 2:[address] [facility] AST (SGOT) 32 10 - 42 unit/L LAB CHEMISTRY METHOD 06/13/2024 2:[address] [facility] Alkaline Phosphatase 133(H) 42 - 121 unit/L LAB CHEMISTRY METHOD 06/13/2024 2:[address] [facility] Blood Venous blood specimen / Unknown Venipuncture / Unknown 06/13/2024 12:37 PM EST 06/13/2024 12:55 PM EST Napoleon Neely MD LAB BLOOD ORDERABLES Final Re sult [facility] [address] [place] [address], [place] [phone] * Troponin I high sensitivity (06/12/2024 6:44 AM EST) Only the most recent of4 resultswithin the time period is included. High Sensitivity Troponin I 17 <=79 ng/L LAB CHEMISTRY METHOD 06/12/2024 7:[address] [facility] Blood Venous blood specimen / Unknown Venipuncture / Unknown 06/12/2024 6:44 AM EST 06/12/2024 6:[address] [facility] - 06/12/2024 7:31 AM EST High levels of biotin in samples may falsely decrease hsTroponin values. ??Use caution when interpreting hsTroponin results in patients taking biotin who exhibit renal impairment (eGFR <60) or in patients taking more than 20 mg/day of biotin. Nayeli RAND LAB BLOOD ORDERABLES Final Resu lt [facility] [address] [place] [address], [place] [phone] * CT Abdomen Pelvis w Contrast (06/12/2024 6:28 AM EST) Only the most recent of2 resultswithin the time period is included. Anatomical Region Laterality Modality Body Computed Tomogra phy 06/12/2024 7:06 AM EST Impressions 06/12/2024 7:06 AM EST Impression: Cirrhotic liver with portal hypertension including gsknswrj-ip-rvxpf volume ascites, splenomegaly and varices. No apparent bowel obstruction. No clear explanation for hematuria. If persistent, follow-up dedicated CT urogram suggested. Decompressed urinary bladder with Ceullo catheter limiting detail. Findings suggesting panniculitis. Other [...] Impression: Cirrhotic liver with portal hypertension including gtmllxrm-at-ggpig volume ascites, splenomegaly and varices. No apparent [...] recommended in 3 months to assess stability. Ogeks-mv-qxzbceow size left pleural effusion and trace right [...] contour and moderate volume of ascites. Splenomegaly. Snngj-mo-bohqkkjj size left pleural effusion and trace right [...] contour and moderate volume of ascites. Splenomegaly. Ksgbt-xj-uosfofsk size left pleural effusion and trace right [...] recommended in 3 months to assess stability. Nvjme-dd-siwzzbmc size left pleural effusion and trace right pleural effusion with mild subjacent atelectasis. Cardiomegaly. Mildly dilated main pulmonary artery indicating pulmonary arterial hypertension. Hepatic cirrhosis with ascites and splenomegaly. Please see CT abdomen/pelvis report for additional details. No evidence for pulmonary artery embolus. This document has been electronically signed by: Hernan Godwin MD on 06/12/2024 06:43:23 us Nayeli RAND [facility] CT PROCEDURES Final Result * (ABNORMAL) Prothrombin time with INR (06/12/2024 5:19 AM EST) Only the most recent of4 resultswithin the time period is included. Protime 22.0(H) 10.6 - 13.9 sec LAB COAGULATION METHOD 06/12/2024 5:[address] [facility] INR 1.8 LAB COAGULATION METHOD 06/12/2024 5:[address] [facility] Blood Venous blood specimen / Unknown Venipuncture / Unknown 06/12/2024 5:19 AM EST 06/12/2024 5:22 AM EST us Nayeli RAND LAB BLOOD ORDERABLES Final Resu lt Performing Organization Address City/[facility]/ZIP Co de Phone Number [facility] [address] [place] [address], [place] [phone] * B-type natriuretic peptide (06/12/2024 5:19 AM EST) Only the most recent of2 resultswithin the time period is included. BNP 95 <=100 pcg/mL LAB CHEMISTRY METHOD 06/12/2024 6:[address] [facility] Blood Venous blood specimen / Unknown Venipuncture / Unknown 06/12/2024 5:19 AM EST 06/12/2024 5:22 AM EST us Nayeli RAND LAB BLOOD ORDERABLES Final Resu lt Performing Organization Address [facility] Co de Phone Number [facility] [address] [place] [address], [place] [phone] * (ABNORMAL) Blood culture pathogens molecular study (06/12/2024 3:44 AM EST) Pathologist [facility] Pseudomonas aeruginosa Detected (A) Not Detected LAB MICROBIOLOGY METHOD 06/13/2024 7:[address] [facility] Blood Venous blood specimen / Unknown Venipuncture / Unknown 06/12/2024 3:44 AM EST 06/12/2024 3:51 AM EST us Nayeli RAND LAB MICROBIOLOGY - GENERAL ORDE RABLES Final Result Performing Organization Address City/[facility]/ZIP Co de Phone Number [facility] [address] [place] [address], [place] [phone] * (ABNORMAL) Lactate (06/12/2024 3:40 AM EST) Only the most recent of6 resultswithin the time period is included. [facility] Lactate 3.2(HH) 0.4 - 2.0 mmol/L LAB CHEMISTRY METHOD 06/12/2024 4:30 AM [facility] Blood Venous blood specimen / Unknown Venipuncture / Unknown 06/12/2024 3:40 AM EST 06/12/2024 3:51 AM EST Nayeli RAND LAB BLOOD ORDERABLES Final Resu lt [facility] [address] [place] [address], [place] [phone] * (ABNORMAL) Urinalysis with reflex microscopic and culture (06/12/2024 1:15 AM EST) Only the most recent of2 resultswithin the time period is included. [facility] Specific [place]ves Urine 1.007 1.003 - 1.030 LAB URINALYSIS - AUTOMATED METHOD 06/12/2024 3:41 AM [facility] pH, Urine 6.0 5.0 - 8.0 pH LAB URINALYSIS - AUTOMATED METHOD 06/12/2024 3:41 AM [facility] Leukocytes, Urine Small(A) Negative LAB URINALYSIS - AUTOMATED METHOD 06/12/2024 3:41 AM [facility] Nitrite, Urine Negative Negative LAB URINALYSIS - AUTOMATED METHOD 06/12/2024 3:41 AM [facility] Protein, Urine Negative <=Trace mg/dL LAB URINALYSIS - AUTOMATED METHOD 06/12/2024 3:41 AM [facility] Glucose, Urine Negative Negative mg/dL LAB URINALYSIS - AUTOMATED METHOD 06/12/2024 3:41 AM [facility] Ketones, Urine Negative Negative mg/dL LAB URINALYSIS - AUTOMATED METHOD 06/12/2024 3:41 AM [facility] Urobilinogen, Urine 0.2 0.2 - 1.0 mg/dL LAB URINALYSIS - AUTOMATED METHOD 06/12/2024 3:41 AM [facility] Bilirubin, Urine Negative Negative LAB URINALYSIS - AUTOMATED METHOD 06/12/2024 3:41 AM [facility] Blood, Urine Large(A) Negative LAB URINALYSIS - AUTOMATED METHOD 06/12/2024 3:41 AM [facility] RBC, Urine 156.5(H) 0 - 4 /HPF LAB URINALYSIS - AUTOMATED METHOD 06/12/2024 3:41 AM [facility] WBC, Urine 16.6(H) 0 - 4 /HPF LAB URINALYSIS - AUTOMATED METHOD 06/12/2024 3:41 AM [facility] Squamous Epithelial, Urine 9 0 - 60 /LPF LAB URINALYSIS - AUTOMATED METHOD 06/12/2024 3:41 AM [facility] Bacteria, Urine Negative Negative /HPF LAB URINALYSIS - AUTOMATED METHOD 06/12/2024 3:41 AM [facility] Hyaline Casts, Urine 0.8 0 - 3 /LPF LAB URINALYSIS - AUTOMATED METHOD 06/12/2024 3:41 AM [facility] Urine Urine specimen obtained by clean catch procedure / Unknown Non-blood Collection / Unknown 06/12/2024 1:15 AM EST 06/12/2024 2:59 AM EST us Nayeli RAND LAB URINE ORDERABLES Final Resu lt [facility] [address] [place] [address], * Pugh urine culture tube (06/12/2024 1:15 AM EST) Only the most recent of2 resultswithin the time period is included. Extra Tube Hold for add-ons. 06/12/2024 4:[address] [facility] Comment:Auto resulted. Urine Urine specimen obtained by clean catch procedure / Unknown Non-blood Collection / Unknown 06/12/2024 1:15 AM EST 06/12/2024 2:59 AM EST Nayeli RNAD LAB URINE ORDERABLES Final Resu lt [facility] [address] [place] [address], [place] [phone] * (ABNORMAL) Culture urine (06/12/2024 1:15 AM EST) Only the most recent of2 resultswithin the time period is included. Culture, Urine >100,000 CFU/mL Pseudomonas aeruginosa(A) SAVANNAH 06/15/2024 9:[address] [facility] Comment: This is an edited [...] LAURIE OCASIO Final Result Performing Organization Address [facility]/ZIP Co de Phone Number [facility] [address] [place] [address], [place] [phone] * (ABNORMAL) Thyroid stimulating hormone (05/26/2024 6:59 AM EST) TSH 5.20(H) 0.40 - 4.00 mcIU/mL LAB CHEMISTRY METHOD 05/26/2024 1:[address] [facility] Blood Venous blood specimen / Unknown Venipuncture / Unknown 05/26/2024 6:59 AM EST 05/26/2024 10:29 AM EST Gerry Barksdale LAB BLOOD ORDERABLES Final Resul t Performing Organization Address [facility]/ZIP Co de Phone Number [facility] [address] [place] [address], [place] [phone] * Folate (05/26/2024 6:59 AM EST) Folate 4.3 2.8 - 17.0 ng/ml LAB CHEMISTRY METHOD 05/26/2024 1:[address] [facility] Blood Venous blood specimen / Unknown Venipuncture / Unknown 05/26/2024 6:59 AM EST 05/26/2024 10:29 AM EST Gerry [place] LAB BLOOD ORDERABLES Final Resul t Performing Organization Address City/[facility]/ZIP Co de Phone Number [facility] [address] [place] [address], [place] [phone] * (ABNORMAL) Vitamin B12 (05/26/2024 6:59 AM EST) Vitamin B-12 1,309(H) 250 - 900 pcg/mL LAB CHEMISTRY METHOD 05/26/2024 1:[address] [facility] Blood Venous blood specimen / Unknown Venipuncture / Unknown 05/26/2024 6:59 AM EST 05/26/2024 10:29 AM EST Gerry Barksdale LAB BLOOD ORDERABLES Final Resul t [facility] [address] [place] [address], * (ABNORMAL) Comprehensive metabolic panel (05/26/2024 6:59 AM EST) Only the most recent of4 resultswithin the time period is included. Sodium 133 133 - 145 mmol/L LAB CHEMISTRY METHOD 05/26/2024 1:16 PM [facility] Potassium 3.6 3.5 - 5.5 mmol/L LAB CHEMISTRY METHOD 05/26/2024 1:16 PM [facility] Chloride 95(L) 96 - 110 mmol/L LAB CHEMISTRY METHOD 05/26/2024 1:16 PM [facility] CO2 31 21 - 32 mmol/L LAB CHEMISTRY METHOD 05/26/2024 1:16 PM [facility] Anion Gap 7 3 - 11 LAB CHEMISTRY METHOD 05/26/2024 1:16 PM [facility] Glucose 116(H) 70 - 100 mg/dL LAB CHEMISTRY METHOD 05/26/2024 1:16 PM [facility] BUN 15 5 - 25 mg/dL LAB CHEMISTRY METHOD 05/26/2024 1:16 PM [facility] Creatinine 0.52(L) 0.70 - 1.30 mg/dL LAB CHEMISTRY METHOD 05/26/2024 1:16 PM [facility] eGFR 111 >=60 mL/min/1. 73m2 LAB CHEMISTRY METHOD 05/26/2024 1:16 PM [facility] Comment:Calculation based on the??Chronic Kidney Disease Epidemiology Collaboration (CKD-EPI) equation refit??without adjustment for race. BUN/Creatinine Ratio 28.8 LAB CHEMISTRY METHOD 05/26/2024 1:16 PM [facility] Calcium 8.2(L) 8.5 - 10.5 mg/dL LAB CHEMISTRY METHOD 05/26/2024 1:16 PM [facility] AST (SGOT) 27 10 - 42 unit/L LAB CHEMISTRY METHOD 05/26/2024 1:16 PM [facility] ALT (SGPT) 20 10 - 60 unit/L LAB CHEMISTRY METHOD 05/26/2024 1:16 PM [facility] Alkaline Phosphatase 139(H) 42 - 121 unit/L LAB CHEMISTRY METHOD 05/26/2024 1:16 PM [facility] Total Protein 6.0 6.0 - 8.0 g/dL LAB CHEMISTRY METHOD 05/26/2024 1:16 PM [facility] Albumin 2.3(L) 3.2 - 5.0 g/dL LAB CHEMISTRY METHOD 05/26/2024 1:16 PM [facility] Total Bilirubin 3.2(H) 0.0 - 1.4 mg/dL LAB CHEMISTRY METHOD 05/26/2024 1:16 PM [facility] Blood Venous blood specimen / Unknown Venipuncture / Unknown 05/26/2024 6:59 AM EST 05/26/2024 10:29 AM EST Gerry Barksdale LAB BLOOD ORDERABLES Final Resul t [facility] [address] [place] [address], * Vancomycin, trough (05/23/2024 12:10 PM EST) Only the most recent of3 resultswithin the time period is included. Vancomycin Trough 13.0 10.0 - 20.0 mcg/mL LAB CHEMISTRY METHOD 05/23/2024 12:[address] [facility] Blood Venous blood specimen / Unknown Venipuncture / Unknown 05/23/2024 12:10 PM EST 05/23/2024 12:28 PM EST us Hue RAND LAB BLOOD ORDERABLES Final Re sult Performing Organization Address [facility]/ZIP Co de Phone Number [facility] [address] [place] [address], [place] [phone] * Lavender tube (05/23/2024 3:07 AM EST) Only the most recent of2 resultswithin the time period is included. Extra Tube Hold for add-ons. 05/23/2024 5:[address] [facility] Comment:Auto resulted. Blood Venous blood specimen / Unknown 05/23/2024 3:07 AM EST 05/23/2024 3:19 AM EST us Chemo Reveles MD LAB BLOOD ORDERABLES Final Resu lt Performing Organization Address [facility]/ZIP Co de Phone Number [facility] [address] [place] [address], [place] [phone] * Vascular US duplex lower extremity venous [...] Signed Date: 05/21/2024 09:23 ET Workstation ID: [id number] Transcribed By: Self Edit Transcribed Date: 05/21/2024 [...] Signed Date: 05/21/2024 09:23 ET Workstation ID: [id number] Transcribed By: Self Edit Transcribed Date: 05/21/2024 09:22 ET us Chemo Reveles MD CV VASCULAR PROCEDURES Final Re sult * (ABNORMAL) Thyroid stimulating hormone with reflex to free t4 and free t3 (05/21/2024 3:17 AM EST) TSH 8.16(H) 0.40 - 4.00 mcIU/mL LAB CHEMISTRY METHOD 05/21/2024 3:[address] [facility] Blood Venous blood specimen / Unknown Venipuncture / Unknown 05/21/2024 3:17 AM EST 05/21/2024 3:23 AM EST us Chemo Reveles MD LAB BLOOD ORDERABLES Final Resu lt Performing Organization Address City/[facility]/ZIP Co de Phone Number [facility] [address] [place] [address], [place] [phone] * Free thyroxine with reflex to free triiodothyronine (05/21/2024 3:17 AM EST) Free T4 1.02 0.70 - 1.80 ng/dL LAB CHEMISTRY METHOD 05/21/2024 4:[address] [facility] Blood Venous blood specimen / Unknown Venipuncture / Unknown 05/21/2024 3:17 AM EST 05/21/2024 3:23 AM EST us Chemo Reveles MD LAB BLOOD ORDERABLES Final Resu lt Performing Organization Address [facility]/ZIP Co de Phone Number [facility] [address] [place] [address], [place] [phone] * Triiodothyronine free (05/21/2024 3:17 AM EST) T3, Free 249 230 - 420 pcg/dL LAB CHEMISTRY METHOD 05/21/2024 4:[address] [facility] Blood Venous blood specimen / Unknown Venipuncture / Unknown 05/21/2024 3:17 AM EST 05/21/2024 3:23 AM EST us Chemo Reveles MD LAB BLOOD ORDERABLES Final Resu lt Performing Organization Address City/[facility]/ZIP Co de Phone Number [facility] [address] [place] [address], [place] [phone] * Hemoglobin A1c (05/21/2024 3:17 AM EST) Hemoglobin A1C 4.9 <6.5 % LAB CHEMISTRY METHOD 05/21/2024 1:[address] [facility] Mean Bld Glu Estim. 94 mg/dL LAB CHEMISTRY METHOD 05/21/2024 1:[address] [facility] Blood Venous blood specimen / Unknown Venipuncture / Unknown 05/21/2024 3:17 AM EST 05/21/2024 3:23 AM EST us Chemo Reveles MD LAB BLOOD ORDERABLES Final Resu lt [facility] [address] [place] [address], [place] [phone] * (ABNORMAL) POCT Glucose, blood (05/20/2024 8:37 AM EST) Pathologist [facility] Glucose POCT 162(H) 70 - 100 mg/dL 05/20/2024 8:[address] [facility] Blood Capillary blood specimen / Unknown 05/20/2024 8:37 AM EST 05/20/2024 8:38 AM EST us Chemo Reveles MD LAB POINT OF CARE TE ST DOCKED DEVICE UNSOLICITED RESULTS Final Result [facility] [address] [place] [address], [place] [phone] * (ABNORMAL) Sedimentation rate (05/20/2024 6:09 AM EST) Pathologist [facility] Sed Rate 35(H) 0 - 20 mm/hr LAB HEMETOLOGY METHOD 05/20/2024 2:[address] [facility] Blood Venous blood specimen / Unknown Venipuncture / Unknown 05/20/2024 6:09 AM EST 05/20/2024 6:32 AM EST us Chemo Reveles MD LAB BLOOD ORDERABLES Final Resu lt [facility] [address] [place] [address], * XR Chest 2 Views (05/19/2024 6:51 PM EST) Anatomical Region Laterality Modality Body Radiographic Esmer ging 05/20/2024 8:05 AM EST Impressions 05/20/2024 8:06 AM EST Small-moderate left pleural effusion. -------- FINAL REPORT -------- Dictated By: Frank Vivar Dictated Date: 05/20/2024 08:05 ET Assigned Physician: Frank Vivar Reviewed and Electronically Signed By: Frank Vivar Signed Date: 05/20/2024 08:06 ET Workstation ID: [id number] Transcribed By: Self Edit Transcribed Date: 05/20/2024 [...] Signed Date: 05/20/2024 08:06 ET Workstation ID: [id number] Transcribed By: Self Edit Transcribed Date: 05/20/2024 08:05 ET Hue RAND IMG XR PROCEDURES Final Resul t * (ABNORMAL) Lipase (05/19/2024 4:10 PM EST) [facility] Lipase 76(H) 13 - 75 unit/L LAB CHEMISTRY METHOD 05/19/2024 4:[address] [facility] Blood Venous blood specimen / Unknown Venipuncture / Unknown 05/19/2024 4:10 PM EST 05/19/2024 4:25 PM EST Emily Colby Stalin Francisco DO LAB BLOOD ORDERABLES Berenice l Result Performing Organization Address City/[facility] Co de Phone Number [facility] [address] [place] [address], [place] [phone] * Alpha fetoprotein tumor marker (04/07/2024 11:53 AM EST) [facility] AFP 4.2 0.0 - 8.0 ng/mL LAB CHEMISTRY METHOD 04/07/2024 3:[address] [facility] Blood Venous blood specimen / Unknown Venipuncture / Unknown 04/07/2024 11:53 AM EST 04/07/2024 11:[address] [facility] - 04/07/2024 3:03 PM EST The Siemens Advia Centaur Chemiluminescent Immunoassay is used. Results obtained with different assay methods or kits cannot be used interchangeably. Results cannot be interpreted as absolute evidence of the presence or absence of malignant disease. Han Sloan DO LAB BLOOD ORDERABLES Final Resul t Performing Organization Address City/[facility]/ZIP Co de Phone Number [facility] [address] [place] [address], [place] [phone] * Ferritin (04/07/2024 11:53 AM EST) Ferritin 118 26 - 388 ng/mL LAB CHEMISTRY METHOD 04/07/2024 3:[address] [facility] Blood Venous blood specimen / Unknown Venipuncture / Unknown 04/07/2024 11:53 AM EST 04/07/2024 11:53 AM EST Han Sloan DO LAB BLOOD ORDERABLES Final Resul t Performing Organization Address [facility] Co de Phone Number [facility] [address] [place] [address], [place] [phone] from Last 3 Months Insurance [facility] MEDIC[facility] Member Subscriber Plan / Payer (Ef fective 2023-Present) Name:Jonny Reed Relation to Subscriber:Self Name:Jonny Reed Payer ID:[id number] Group ID:[id number] Type:Not on file Address: [place] [address] [place] [phone] Advance Directives Documents on File Type Date Recorded Patient Neuropsychology Service Director Expl anation Advance Directives and Living Will 03/04/2024 11:52 AM Advance Directives and Living Will 03/03/2024 1:15 PM [facility] Proxy * Full Code - Default (Latest [...] Agents on File Name Relationship Healthcare Agent [facility] p Communication Elinor PateBrucedayami Buchanan Health Care Agent Care Teams Harp Regulator Relationship Specialty Start Date End Date Dalia Harmon PA [address] [place] [address], [address] [place] [address] PCP - General 05/10/24
--- OUTSIDE RECORDS SUMMARY | 2024-06-23 19:34 | XMS_ITS | Encounter Summary ---
Author Organization [facility] Address [address] [place] [phone] Care Team Providers Care Gas Furnace Installer Name Role Phone Dalia Harmon Primary Care Provider [phone] Encounter Details Date Type Department Care Team (Late st Contact Info) Description 06/04/2024 Lab Requisition [facility] - Main Lab 299 [facility] [place] [address] Gerry Barksdale [address] [facility] [address] [place] [phone] Sepsis, unspecified organism (CMS/HCC) Social History Tobacco [...] 11:20 AM EST Office Visit Gastroenterology - [place] [address] [facility] [address] [place] [phone] Han Sloan DO 175 [facility] 200 [place] [address] 07/06/2024 1:00 PM EDT Appointment [facility] Interventional Radiology [address] [place] [phone] 08/12/2024 10:30 AM EDT Ancillary Procedure [facility] - [address] [place] [phone] documented as of this encounter Procedures Procedure Name Priority Date/Time Associated Diagnosis Comments COMPLETE BLOOD COUNT Routine 06/07/2024 10:48 AM EST Sepsis, unspecified organism (CMS/HCC) BASIC METABOLIC PANEL Routine 06/07/2024 10:48 AM EST Sepsis, unspecified organism (CMS/HCC) documented in this encounter Results * (ABNORMAL) Basic metabolic panel (06/07/2024 10:48 AM EST) Sodium 137 133 - 145 mmol/L LAB CHEMISTRY METHOD 06/07/2024 12:53 PM [facility] Potassium 3.6 3.5 - 5.5 mmol/L LAB CHEMISTRY METHOD 06/07/2024 12:53 PM [facility] Chloride 103 96 - 110 mmol/L LAB CHEMISTRY METHOD 06/07/2024 12:53 PM [facility] CO2 25 21 - 32 mmol/L LAB CHEMISTRY METHOD 06/07/2024 12:53 PM [facility] Anion Gap 9 3 - 11 LAB CHEMISTRY METHOD 06/07/2024 12:53 PM [facility] Glucose 142(H) 70 - 100 mg/dL LAB CHEMISTRY METHOD 06/07/2024 12:53 PM [facility] BUN 9 5 - 25 mg/dL LAB CHEMISTRY METHOD 06/07/2024 12:53 PM [facility] Creatinine 0.58(L) 0.70 - 1.30 mg/dL LAB CHEMISTRY METHOD 06/07/2024 12:53 PM EST [facility] eGFR 108 >=60 mL/min/1. 73m2 LAB CHEMISTRY METHOD 06/07/2024 12:53 PM [facility] Comment:Calculation based on the??Chronic Kidney Disease Epidemiology Collaboration (CKD-EPI) equation refit??without adjustment for race. BUN/Creatinine Ratio 15.5 LAB CHEMISTRY METHOD 06/07/2024 12:53 PM [facility] Calcium 8.0(L) 8.5 - 10.5 mg/dL LAB CHEMISTRY METHOD 06/07/2024 12:53 PM [facility] Blood Venous blood specimen / Unknown Venipuncture / Unknown 06/07/2024 10:48 AM EST 06/07/2024 12:01 PM EST Gerry Barksdale LAB BLOOD ORDERABLES Final Resul t [facility] 299 [place] [address], * (ABNORMAL) Complete blood count (06/07/2024 10:48 AM EST) WBC 4.4(L) 4.8 - 10.8 K/mcL LAB HEMETOLOGY METHOD 06/07/2024 1:06 PM [facility] RBC 3.40(L) 4.50 - 5.50 M/mcL LAB HEMETOLOGY METHOD 06/07/2024 1:06 PM [facility] Hemoglobin 12.0(L) 13.5 - 17.5 g/dL LAB HEMETOLOGY METHOD 06/07/2024 1:06 PM [facility] Hematocrit 36.4(L) 42.0 - 54.0 % LAB HEMETOLOGY METHOD 06/07/2024 1:06 PM [facility] MCV 105.8(H) 79.0 - 98.0 FL LAB HEMETOLOGY METHOD 06/07/2024 1:06 PM EST [facility] MCH 34.9(H) 27.0 - 32.0 pcg LAB HEMETOLOGY METHOD 06/07/2024 1:06 PM [facility] MCHC 33.0 32.0 - 37.0 g/dL LAB HEMETOLOGY METHOD 06/07/2024 1:06 PM [facility] RDW 18.0(H) 11.0 - 15.0 % LAB HEMETOLOGY METHOD 06/07/2024 1:06 PM [facility] Platelets 108(L) 130 - 400 K/mcL LAB HEMETOLOGY METHOD 06/07/2024 1:06 PM [facility] MPV 10.7 7.0 - 11.0 FL LAB HEMETOLOGY METHOD 06/07/2024 1:06 PM [facility] NRBC 0.0 <1.0 % LAB HEMETOLOGY METHOD 06/07/2024 1:06 PM [facility] NRBC Absolute 0.00 <0.10 K/mcL LAB HEMETOLOGY METHOD 06/07/2024 1:06 PM [facility] Blood Venous blood specimen / Unknown Venipuncture / Unknown 06/07/2024 10:48 AM EST 06/07/2024 12:01 PM EST Gerry Barksdale LAB BLOOD ORDERABLES Final Resul t [facility] [address] [place] [address], documented in this encounter Visit Diagnoses Diagnosis Sepsis, unspecified organism (CMS/HCC) documented in this encounter Care Teams Gas Furnace Installer Relationship Specialty Start Date End Date Dalia Harmon PA 2 [facility], [address] [place] [address] PCP - General 05/10/24 documented as of this encounter
--- OUTSIDE RECORDS SUMMARY | 2024-06-23 19:34 | XMS_ITS | Encounter Summary ---
Author Organization [facility] Address [address] [place] [phone] Care Team Providers Care Brick Kiln Burner Name Role Phone Dalia Harmon Primary Care Provider [phone] Reason for Visit * Reason Onset Date Comments provider call back 06/14/2024 Encounter Details Date Type Department Care Team (Late st Contact Info) Description 06/14/2024 Telephone Gastroenterology - [place] [address] [place] [address] Han Sloan DO [address] [place] [address] provider call back Social History Tobacco Use [...] 11:20 AM EST Office Visit Gastroenterology - [place] 175 [facility] [address] [phone] Han Sloan DO 175 [facility] 200 [place] [address] 07/06/2024 1:00 PM EDT Appointment [facility] Interventional Radiology [address] [place] [phone] 08/12/2024 10:30 AM EDT Ancillary Procedure [facility] - [facility] [address] [facility] 101 [place] [phone] documented as of this encounter Visit Diagnoses Not on filedocumented in this encounter Care Teams Brick Kiln Burner Relationship Specialty Start Date End Date Dalia Harmon PA [address] [place] [address], [address] [place] [address] PCP - General 05/10/24 documented as of this encounter
--- OUTSIDE RECORDS SUMMARY | 2024-06-23 19:35 | XMS_ITS | Encounter Summary ---
Author Organization [facility] Address [address] [place] [phone] Care Team Providers Care Assistant Account Executive Name Role Phone Dalia Harmon Primary Care Provider [phone] Encounter Details Date Type Department Care Team (Late st Contact Info) Description 03/12/2024 Lab Requisition [facility] - Main Lab 299 [facility] [place] [address] Gerry Barksdale [address] [facility] [address] [place] [phone] Essential (primary) hypertension Social History Tobacco Use [...] 11:20 AM EST Office Visit Gastroenterology - [place] [address] [facility] [address] [place] [address] Han Sloan DO 175 [facility] 200 [place] [address] 07/06/2024 1:00 PM EDT Appointment [facility] Interventional Radiology 271 [place] [phone] 08/12/2024 10:30 AM EDT Ancillary Procedure [facility] - [facility] [address] [facility] 101 [place] [phone] documented as of this encounter Visit Diagnoses Diagnosis Essential (primary) hypertension Unspecified essential hypertension documented in this encounter Care Teams Assistant Account Executive Relationship Specialty Start Date End Date Dalia Harmon PA 2 [facility], [address] [place] [address] PCP - General 05/10/24 documented as of this encounter
--- OUTSIDE RECORDS SUMMARY | 2024-06-23 19:35 | XMS_ITS | Encounter Summary ---
Author Organization [facility] Address [address] [place] [address] Care Team Providers Care Anesthesiologist Assistant Certified Name Role Phone Dalia Hramon Primary Care Provider [phone] Encounter Details Date Type Department Care Team (Late st Contact Info) Description 05/28/2024 Lab Requisition [facility] - Main Lab 299 [facility] [place] [address] Gerry Barksdale 7[address] [facility] [address] [place] [phone] Sepsis, unspecified organism (CMS/HCC) Social History Tobacco [...] 11:20 AM EST Office Visit Gastroenterology - [place] [address] [facility] [address] [place] [phone] Han Sloan DO 175 [facility] 200 [place] [address] 07/06/2024 1:00 PM EDT Appointment [facility] Interventional Radiology 271 [place] [phone] 08/12/2024 10:30 AM EDT Ancillary Procedure [facility] - [address] [place] [phone] documented as of this encounter Procedures Procedure Name Priority Date/Time Associated Diagnosis Comments COMPLETE BLOOD COUNT Routine 05/31/2024 8:09 AM EST Sepsis, unspecified organism (CMS/HCC) BASIC METABOLIC PANEL Routine 05/31/2024 8:09 AM EST Sepsis, unspecified organism (CMS/HCC) documented in this encounter Results * (ABNORMAL) Basic metabolic panel (05/31/2024 8:09 AM EST) Sodium 135 133 - 145 mmol/L LAB CHEMISTRY METHOD 05/31/2024 10:57 AM [facility] Potassium 3.9 3.5 - 5.5 mmol/L LAB CHEMISTRY METHOD 05/31/2024 10:57 AM [facility] Chloride 101 96 - 110 mmol/L LAB CHEMISTRY METHOD 05/31/2024 10:57 AM [facility] CO2 29 21 - 32 mmol/L LAB CHEMISTRY METHOD 05/31/2024 10:57 AM [facility] Anion Gap 5 3 - 11 LAB CHEMISTRY METHOD 05/31/2024 10:57 AM [facility] Glucose 116(H) 70 - 100 mg/dL LAB CHEMISTRY METHOD 05/31/2024 10:57 AM [facility] BUN 12 5 - 25 mg/dL LAB CHEMISTRY METHOD 05/31/2024 10:57 AM [facility] Creatinine 0.47(L) 0.70 - 1.30 mg/dL LAB CHEMISTRY METHOD 05/31/2024 10:57 AM [facility] eGFR 115 >=60 mL/min/1. 73m2 LAB CHEMISTRY METHOD 05/31/2024 10:57 AM [facility] Comment:Calculation based on the??Chronic Kidney Disease Epidemiology Collaboration (CKD-EPI) equation refit??without adjustment for race. BUN/Creatinine Ratio 25.5 LAB CHEMISTRY METHOD 05/31/2024 10:57 AM [facility] Calcium 8.2(L) 8.5 - 10.5 mg/dL LAB CHEMISTRY METHOD 05/31/2024 10:57 AM [facility] Blood Venous blood specimen / Unknown Venipuncture / Unknown 05/31/2024 8:09 AM EST 05/31/2024 9:54 AM EST Gerry Barksdale LAB BLOOD ORDERABLES Final Resul t [facility] 299 [place] [address], * (ABNORMAL) Complete blood count (05/31/2024 8:09 AM EST) WBC 5.3 4.8 - 10.8 K/mcL LAB HEMETOLOGY METHOD 05/31/2024 10:28 AM [facility] RBC 3.50(L) 4.50 - 5.50 M/mcL LAB HEMETOLOGY METHOD 05/31/2024 10:28 AM [facility] Hemoglobin 11.8(L) 13.5 - 17.5 g/dL LAB HEMETOLOGY METHOD 05/31/2024 10:28 AM [facility] Hematocrit 36.4(L) 42.0 - 54.0 % LAB HEMETOLOGY METHOD 05/31/2024 10:28 AM [facility] MCV 105.5(H) 79.0 - 98.0 FL LAB HEMETOLOGY METHOD 05/31/2024 10:28 AM EST [facility] MCH 34.2(H) 27.0 - 32.0 pcg LAB HEMETOLOGY METHOD 05/31/2024 10:28 AM [facility] MCHC 32.4 32.0 - 37.0 g/dL LAB HEMETOLOGY METHOD 05/31/2024 10:28 AM EST [facility] RDW 17.1(H) 11.0 - 15.0 % LAB HEMETOLOGY METHOD 05/31/2024 10:28 AM EST [facility] Platelets 149 130 - 400 K/mcL LAB HEMETOLOGY METHOD 05/31/2024 10:28 AM [facility] MPV 10.5 7.0 - 11.0 FL LAB HEMETOLOGY METHOD 05/31/2024 10:28 AM EST [facility] NRBC 0.0 <1.0 % LAB HEMETOLOGY METHOD 05/31/2024 10:28 AM [facility] NRBC Absolute 0.00 <0.10 K/mcL LAB HEMETOLOGY METHOD 05/31/2024 10:28 AM [facility] Blood Venous blood specimen / Unknown Venipuncture / Unknown 05/31/2024 8:09 AM EST 05/31/2024 9:53 AM EST Gerry Barksdale LAB BLOOD ORDERABLES Final Resul t [facility] [address] [place] [address], documented in this encounter Visit Diagnoses Diagnosis Sepsis, unspecified organism (CMS/HCC) documented in this encounter Care Teams Anesthesiologist Assistant Certified Relationship Specialty Start Date End Date Dalia Harmon PA [address] [facility] [address], [address] [place] [address] PCP - General 05/10/24 documented as of this encounter
--- OUTSIDE RECORDS SUMMARY | 2024-06-23 19:35 | XMS_ITS | Encounter Summary ---
Author Organization [facility] Address [address] [place] [phone] Care Team Providers Care Hand Nailer Name Role Phone Dalia Harmon Primary Care Provider [phone] Reason for Visit * Reason Onset Date Comments provider call back 05/24/2024 Encounter Details Date Type Department Care Team (Late st Contact Info) Description 05/24/2024 Telephone Gastroenterology - [place] [address] [place] [address] Han Sloan DO [address] [place] [address] provider call back Social History Tobacco Use [...] 11:20 AM EST Office Visit Gastroenterology - [place] 175 [facility] [address] [facility] [address] [place] [phone] Han Sloan DO [address] [facility] [address] [place] [address] 07/06/2024 1:00 PM EDT Appointment [facility] Interventional Radiology [address] [place] [phone] 08/12/2024 10:30 AM EDT Ancillary Procedure [facility] - [address] [place] [phone] documented as of this encounter Visit Diagnoses Not on filedocumented in this encounter Care Teams Hand Nailer Relationship Specialty Start Date End Date Dalia Harmon PA [address] [place] [address], [address] [place] [address] PCP - General 05/10/24 documented as of this encounter
--- OUTSIDE RECORDS SUMMARY | 2024-06-23 19:35 | XMS_ITS | Encounter Summary ---
Author Organization [facility] Address [id number] [place] [phone] Care Team Providers Care Custom Bow Maker Name Role Phone Dalia Harmon Primary Care Provider [phone] Reason for Visit * Reason Comments Blood in Urine Chronic Alex w/sheng ht red blood. Last replaced 2 days ago * Auth/Cert (Routine) Specialty Diagnoses / Procedures Referred By Aliya harris Referred To Contact Diagnoses Pseudomonal bacteremia Procedures [facility] IP/OBS CARE INITIAL MODERATE LEVEL PER DAY Napoleon Neely MD [address] [place] [phone] Phone: tel: fax: [facility] Emergency [address] [place] [address] Phone: tel: Referral ID Status Reason Start Date Expiration Date Visits Re quested Visits Authorized [id number] 1 1 Encounter Details Date Type Department Care Team (Late st Contact Info) Description 06/13/2024 12:02 PM EST - 06/16/2024 2:30 PM EST Hospital Encounter [facility] Medical Surgical Unit [address] [place] [address] Barak Benjamin MD [address] [place] [address] Napoleon Neely MD [address] [place] [phone] Liang Uribe MD [address] [place] [address] Deborah Barahona MD [address] [place] [address] Bacteremia (Primary Dx); Alex catheter in place; Urinary tract infection associated with indwelling urethral catheter, initial encounter ([facility]); Hx of ascites; Anasarca Discharge [...] from the original note were not included. [place] DISCHARGE SUMMARY Patient Information Jonny Gordon : 1960 [64 y.o.] Admitting Provider Napoleon Neely MD Discharge Provider Deborah Barahona MD, Deborah Barahona MD Primary Care Physician [...] urine output In the ED here at [facility] patient had Alex catheter changed. At that [...] Patient follows with urology, Dr. Simon at [facility] He also follows with Dr. Sloan for GI for paracentesis, his last one was April or 7.5 L were removed He reports having 1 UTI since his Alxe catheter placement in February 2024 Currently feels [...] indeterminate. Could be infectious, inflammatory or neoplastic. Wxukl-uh-knamwvxy size left pleural effusion and trace right pleural effusion with mild subjacent atelectasis. Cardiomegaly. Mildly dilated main pulmonary artery indicating pulmonary arterial hypertension. Hepatic cirrhosis with ascites and splenomegaly. CT Abd/Pelvis w Contrast - Cirrhotic liver with portal hypertension including luqmygli-hz-dqcgi volume ascites, splenomegaly and varices. No apparent [...] daily -Patient follows up with urology at [facility] however he is not happy with his [...] Signed Date: 06/15/2024 12:40 ET Workstation ID: [id number] Transcribed By: Self Edit Transcribed Date: 06/14/2024 11:29 ET Resident/PA/VIDEO GAME SCRIPT WRITER: Milady Chilel Lab Results Component Value Date [...] Signed Date: 06/15/2024 12:40 ET Workstation ID: [id number] Transcribed By: Self Edit Transcribed Date: 06/14/2024 11:29 ET Resident/PA/VIDEO GAME SCRIPT WRITER: Milady Chilel Follow-Up Instructions and Recommendations [facility] [address] [place] [phone] More than 30 minutes spent on [...] Barahona MD - 06/16/2024 2:30 PM EST [facility] Provider Response Note PATIENT: JONNY GORDON : 1960 ADMIT DATE: 06/13/2024 2:04 PM DISCH DATE: 06/16/2024 2:30 PM RESPONDING PROVIDER #: [id number] PROVIDER RESPONSE TEXT: The patient has secondary [...] is on Eliquis for hemochromatosis per EMR. rodent exterminator use of anticoagulant in the form of [...] Patient to take full course of antibiotics. [place] driving patient home. to quill picking machine [...] Discharge Needs Discipline following for SNF placement Case Folder Informed Choice Informed Choice Given? Yes Transportation Transportation at discharge [facility] providing transportation [place] What day is the transport expected? 06/16/24 What time is the transport expected? 1430 Final Discharge Disposition Home Health Care Services Patient discharging home via ambulance with 47 hours of LICENSED THERAPIST services and [facility], at bedside and aware * Stephany Cifuentes PT - 06/16/2024 12:30 PM EST Patient: Jonny Grodon Age: 64 y.o. Sex: male Pseudomonal bacteremia [facility] Physical Therapy Treatment Ambulation: Walking Assistance: Contact guard Device: Rolling walker Distance Ambulated (ft): 10 PLOF: Level of [place]: Independent with mobility and functional transfers Lives With: Alone Receives Help From: oven attendant (47HRS/WK) Type of Home: House Home [...] to dc home with 47 +hours of LICENSED THERAPIST care, . and recommending home PT services [...] Uribe MD - 06/16/2024 12:38 AM EST [facility] Provider Response Note PATIENT: JONNY GORDON : 1960 ADMIT DATE: 06/13/2024 2:04 PM DISCH DATE: RESPONDING PROVIDER #: [id number] PROVIDER RESPONSE TEXT: The two conditions are due to or associated. QUERY TEXT: Please clarify in documentation the relationship, if any, between Complicated UTI with Pseudomonas and chronic indwelling Alex catheter since February presents. Such as: H&P 06/13/2024 (1) HPI: In the ED here at [facility] patient had Alex catheter changed... morbid obesity, [...] urine output In the ED here at [facility] patient had Alex catheter changed. At that [...] Patient follows with urology, Dr. Simon at [facility] He also follows with Dr. Sloan for [...] Signed By: Signed Date: ET Workstation ID: [id number] Transcribed By: Self Edit Transcribed Date: 06/14/2024 11:29 ET Resident/PA/VIDEO GAME SCRIPT WRITER: Milady Chilel CT Abdomen Pelvis w Contrast [...] Impression: Cirrhotic liver with portal hypertension including ojsttdow-ua-uspxv volumeascites, splenomegaly and varices. No apparent bowel [...] contour and moderate volume of ascites. Splenomegaly. Nzvoh-wa-bvddrsiq size left pleural effusion and trace right [...] recommended in 3 months to assess stability. Fwmll-zo-nkfltfzo size left pleural effusion and trace right [...] Signed Date: 05/21/2024 09:23 ET Workstation ID: [id number] Transcribed By: Self Edit Transcribed Date:05/21/2024 09:22 [...] Signed Date: 05/20/2024 08:06 ET Workstation ID: [id number] Transcribed By: Self Edit Transcribed Date: 05/20/2024 08:05 ET Assessment/Plan: Jonny Gordon is a 64 y.o. male who has a past medical history of Anxiety (04/13/2018), Benign colonicpolyp (12/12/2014), Chronic allergic conjunctivitis (04/13/2018), Cirrhosis of liver (CMS/HCC) (12/03/2017), Depression with anxiety (12/12/2014), Diabetes mellitus type 2, uncomplicated (CMS/HCC) (12/12/2014), Diverticulosis (05/29/2010), Erosive gastritis (10/13/2017), Esophageal varices ([facility]/HCC) (12/03/2017), Hyperlipidemia (12/12/2014), Hypertension (12/14/2014), Insomnia (04/13/2018), Internal hemorrhoids (07/27/2010), Iron overload syndrome (12/03/2017), Morbid obesity ([facility]/HCC) (09/10/2017), Obstructive sleep apnea (05/21/2016), Thoracic or lumbosacral neuritis or radiculitis (09/13/2011), and Vitamin D deficiency (07/27/2012).. The patient was admitted to the hospital on 06/13/2024 for positive bloodC/S. The pt was recently discharged from [facility] on 05/25 for UI. He then ended [...] and BMP and faxto my office at [phone] Recommend Urology consult, the pt has had [...] Age: 64 y.o. Sex: male Pseudomonal bacteremia [facility] Physical Therapy Evaluation PLOF: Level of [place]: Independent with mobility and functional transfers Lives With: Alone Receives Help From: oven attendant (47HRS/WK) Type of Home: House Home Adaptive Equipment: Walker - rolling, Wheelchair-manual, Bariatric equipment, Tub seat with back, Bedside commode, Other (Comment) (stair chair) Home Layout: One level Home Access: Stairs to enter with rails DME Needs: PT Discharge Recommendation: assisted facility placement, (however pt would like to return home and has 47 hours of accounting manager cpa care. Reason for current recommendation based on [...] COLONOSCOPY N/A PROCEDURE: HISTORICAL COLONOSCOPY ESOPHAGOGASTRODUODENOSCOPY PROCEDURE: DE ESOPHAGOGASTRODUODENOSCOPY TRANSORAL DIAGNOSTIC OTHER SURGICAL HISTORY Right PROCEDURE: DE STAB PHLEBT VARICOSE VEINS 1 XTR > [...] of Steps 1 Prior Function Level of [place] Independent with mobility and functional transfers Ambulation Status Household ambulator Receives Help From oven attendant (47HRS/WK) Indoor Mobility Assistance Needed Some [...] 2-5 days per week PT Discharge Recommendations assisted facility placement PT - Evaluation Status Complete [...] 2-5 days per week PT Discharge Recommendations: assisted facility placement Encounter Problems Encounter Problems (Active) [...] Verbalizes Understanding Comment: discussed POC while at [facility] Mobility Training, taught by Stephany Cifuentes PT at 06/15/2024 12:17 PM. Learner: Patient Readiness: Acceptance Method: Explanation Response: Verbalizes Understanding Comment: discussed POC while at [facility] Education Comments No comments found. Stephany Cifuentes [...] a 64 y.o. male : 1960 MR#: [id number] SUBJECTIVE Subjective Patient seen and examined bedside [...] daily -Patient follows up with urology at [facility] however he is not happy with his [...] infectious concerns): [] Yes / [x] No Pss Delivery Professional: [] Yes / [x] No If YES, Cardiac Rhythm: [x] NSR, [] SB, [] ST, [] A-FIB, [] A-Flutter, [] Pacemaker, [] 1st Degree HB, [] 2nd Degree HB, [] 3rd Degree HB Reason for Pss Delivery Professional: VS: Visit Vitals BP 121/70 (BP Location: [...] infectious concerns): [] Yes / [x] No Pss Delivery Professional: [x] Yes / [] No If YES, Cardiac Rhythm: [x] NSR, [] SB, [] ST, [] A-FIB, [] A-Flutter, [] Pacemaker, [] 1st Degree HB, [] 2nd Degree HB, [] 3rd Degree HB Reason for Pss Delivery Professional: VS: Visit Vitals BP (!) 107/47 Pulse [...] #, Relationship) for DC Planning Elinor Cortez [phone] or sister Denver [phone] Living Arrangements Alone (has LICENSED THERAPIST 47 hours per week) Type of Residence Private residence (Duplex, has stair chair to bedroom upstairs) Assistive Devices Walker;Wheelchair Support Systems Immediate family;Other (Comment) (LICENSED THERAPIST) Medication Coverage Has Med Coverage Under Insurance [...] few steps with a walker. Patient has LICENSED THERAPIST services 47 hours per week, 37 hours Mon-Fri and 10 hours Sat/Sun. Patient's LICENSED THERAPIST Elinor in his HCP. Patient reports that he was recenly at [facility]. At this time patient declines SNF referrals. Patient is active with [facility]. Patient will need ambulance upon d/c home. Barrier to d/c: + blood cx, hematuria via alex, IV abx Dispo: home with [facility] and LICENSED THERAPIST (has LICENSED THERAPIST 37 hours Mon-Fri and 10 hours Sat/Sun). Was recently at [facility], patient declines SNF placement. Will need ambulance upon d/c * Mirta Menon RN - 06/13/2024 12:03 PM EST Patient BIBA for bright red blood noted this morning in chronic alex cath for hx hematochromotosis. Last alex change 2 days ago. Denies pain and catheter draining normally. Reports taking blood thinners. States he was called by someone at [facility] for abnormal labs and told to come [...] N/A PROCEDURE: HISTORICAL COLONOSCOPY ??? ESOPHAGOGASTRODUODENOSCOPY PROCEDURE: DE ESOPHAGOGASTRODUODENOSCOPY TRANSORAL DIAGNOSTIC ??? OTHER SURGICAL HISTORY Right PROCEDURE: DE STAB PHLEBT VARICOSE VEINS 1 XTR > [...] Procedure Abnormality Status --------- ------ CBC auto differential[[id number]] Please view results for these tests on [...] associated with indwelling urethral catheter, initial encounter ([facility]) Procedures @PROCEDURENOTES@ Diagnosis 1. Bacteremia 2. Alex catheter in place Disposition Admit to Inpatient ED Prescriptions None Physician Attestation Barak Benjamin MD 06/13/24 1224 Barak Benjamin MD 06/13/24 1512 documented in this encounter H&P Notes * GIORGI Drake - 06/13/2024 3:17 PM EST Images from the original note were not included. [place] HISTORY AND PHYSICAL Please contact author [GIORGI Calvillo] via [employer] ([employer]). Patient: Jonny Gordon Admission Date/Time: 06/13/2024 12:02 [...] urine output In the ED here at [facility] patient had Alex catheter changed. At that [...] Patient follows with urology, Dr. Simon at [facility] He also follows with Dr. Sloan for [...] indeterminate. Could be infectious, inflammatory or neoplastic. Xsqiy-xy-xkdqjzsy size left pleural effusion and trace right pleural effusion with mild subjacent atelectasis. Cardiomegaly. Mildly dilated main pulmonary artery indicating pulmonary arterial hypertension. Hepatic cirrhosis with ascites and splenomegaly. CT Abd/Pelvis w Contrast - Cirrhotic liver with portal hypertension including axsdoabc-tr-jzfji volume ascites, splenomegaly and varices. No apparent [...] CT Angio Chest wo and/or w Contrast [[id number]] Collected: 06/12/24 0643 Order Status: Completed Updated: [...] contour and moderate volume of ascites. Splenomegaly. Dqunh-zs-soxtovkm size left pleural effusion and trace right [...] recommended in 3 months to assess stability. Ltsml-el-utshubla size left pleural effusion and trace right pleural effusion with mild subjacent atelectasis. Cardiomegaly. Mildly dilated main pulmonary artery indicating pulmonary arterial hypertension. Hepatic cirrhosis with ascites and splenomegaly. Please see CT abdomen/pelvis report for additionaldetails. No evidence for pulmonary artery embolus. This document has been electronically signed by: Hernan Godwin MD on 06/12/2024 06:43:23 CT Abdomen Pelvis w Contrast [[id number]] Collected: 06/12/24 0706 Order Status: Completed Updated: [...] Impression: Cirrhotic liver with portal hypertension including ctzrsgnj-hy-yebzb volume ascites, splenomegaly and varices. No apparent [...] as needed FULL CODE HCP: hollie Aldrich [phone] PPX: Pneumoboots Case and plan discussed with: Dr. Neely 75 minutes or greater was spent on performing a medically appropriate history and physical examination, review of laboratory and radiology data requiring a high level of medical decision making. Cosigned by Napoleon Neely MD at 06/16/2024 10:52 AM EST Associated attestation - Napoleon Neely MD - 06/16/2024 10:52 AM EST [...] (07/27/2010), Iron overload syndrome (12/03/2017), Morbid obesity ([facility]/HCC) (09/10/2017), Obstructive sleep apnea (05/21/2016), Thoracic or lumbosacral neuritis or radiculitis (09/13/2011), and Vitamin D deficiency (07/27/2012).. The patient was admitted to the hospital on 06/13/2024 for positive bloodC/S. The pt was recently discharged from [facility] on 05/25 for UI. He then ended [...] COLONOSCOPY N/A PROCEDURE: HISTORICAL COLONOSCOPY ESOPHAGOGASTRODUODENOSCOPY PROCEDURE: DE ESOPHAGOGASTRODUODENOSCOPY TRANSORAL DIAGNOSTIC OTHER SURGICAL HISTORY Right PROCEDURE: DE STAB PHLEBT VARICOSE VEINS 1 XTR > [...] Signed By: Signed Date: ET Workstation ID: [id number] Transcribed By: Self Edit Transcribed Date: 06/14/2024 11:29 ET Resident/PA/VIDEO GAME SCRIPT WRITER: Milady Chilel Assessment/Plan Jonny Gordon is a [...] bloodC/S. The pt was recently discharged from [facility] on 05/25 for UI. He then ended [...] 11:20 AM EST Office Visit Gastroenterology - [place] [address] [facility] [address] [facility] [address] [place] [phone] Han Sloan DO [address] [facility] [address] [place] [address] 07/06/2024 1:00 PM EDT Appointment [facility] Interventional Radiology [address] [place] [phone] 08/12/2024 10:30 AM EDT Ancillary Procedure [facility] [address] [place] [phone] Pending Results Name Type Priority Associated Diagnoses [...] (06/15/2024 2:35 PM EST) Left Atrium Major Keyser 5.9 cm CV PACS LA Area Sys [...] 12 lead (06/15/2024 12:53 PM EST) Pathologist [facility] Ventricular Rate ECG 85 BPM GEMUSE Atrial Rate 85 BPM GEMUSE P-R Interval 126 ms GEMUSE QRS Duration 130 ms GEMUSE Q-T Interval 408 ms GEMUSE QTc 485 ms GEMUSE P Wave Keyser 28 degrees GEMUSE R Keyser -36 degrees GEMUSE T Keyser 29 degrees GEMUSE ECG Interpretation Normal sinus rhythm Left axis deviation Right bundle branch block Abnormal ECG When compared with ECG of 12-JUN-2024 03:57, No significant change was found Confirmed by MD Felix, [place] ([id number]) on 06/15/2024 5:37:07 PM GEMUSE 06/15/2024 12:5 3 PM EST 06/15/2024 5:37 PM EST Liang Uribe MD ECG ORDERABLES Fin al Result Performing Organization Address City/[facility]/ZIP Co de Phone Number GEMUSE * Magnesium (06/15/2024 6:38 AM EST) [facility] Magnesium 1.9 1.9 - 2.6 mg/dL LAB CHEMISTRY METHOD 06/15/2024 7:50 AM EST [facility] Blood Venous blood specimen / Unknown Venipuncture / Unknown 06/15/2024 6:38 AM EST 06/15/2024 7:06 AM EST Liang Uribe MD LAB BLOOD ORDERABLE S Final Result Performing Organization Address City/[facility] Co de Phone Number [facility] [address] [place] [address], [place] [phone] * (ABNORMAL) Basic metabolic panel (06/15/2024 6:38 AM EST) [facility] Sodium 134 133 - 145 mmol/L LAB CHEMISTRY METHOD 06/15/2024 7:50 AM EST [facility] Potassium 4.2 3.5 - 5.5 mmol/L LAB CHEMISTRY METHOD 06/15/2024 7:50 AM [facility] Chloride 100 96 - 110 mmol/L LAB CHEMISTRY METHOD 06/15/2024 7:50 AM [facility] CO2 30 21 - 32 mmol/L LAB CHEMISTRY METHOD 06/15/2024 7:50 AM [facility] Anion Gap 4 3 - 11 LAB CHEMISTRY METHOD 06/15/2024 7:50 AM [facility] Glucose 115(H) 70 - 100 mg/dL LAB CHEMISTRY METHOD 06/15/2024 7:50 AM [facility] BUN 11 5 - 25 mg/dL LAB CHEMISTRY METHOD 06/15/2024 7:50 AM [facility] Creatinine 0.48(L) 0.70 - 1.30 mg/dL LAB CHEMISTRY METHOD 06/15/2024 7:50 AM [facility] eGFR 114 >=60 mL/min/1. 73m2 LAB CHEMISTRY METHOD 06/15/2024 7:50 AM [facility] Comment:Calculation based on the??Chronic Kidney Disease Epidemiology Collaboration (CKD-EPI) equation refit??without adjustment for race. BUN/Creatinine Ratio 22.9 LAB CHEMISTRY METHOD 06/15/2024 7:50 AM [facility] Calcium 8.2(L) 8.5 - 10.5 mg/dL LAB CHEMISTRY METHOD 06/15/2024 7:50 AM [facility] Blood Venous blood specimen / Unknown Venipuncture / Unknown 06/15/2024 6:38 AM EST 06/15/2024 7:06 AM EST Liang Uribe MD LAB BLOOD ORDERABLE S Final Result [facility] [address] [place] [address], [place] [phone] * (ABNORMAL) Complete blood count (06/15/2024 6:38 AM EST) [facility] WBC 4.1(L) 4.8 - 10.8 K/mcL LAB HEMETOLOGY METHOD 06/15/2024 7:42 AM [facility] RBC 3.50(L) 4.50 - 5.50 M/mcL LAB HEMETOLOGY METHOD 06/15/2024 7:42 AM [facility] Hemoglobin 11.9(L) 13.5 - 17.5 g/dL LAB HEMETOLOGY METHOD 06/15/2024 7:42 AM [facility] Hematocrit 35.3(L) 42.0 - 54.0 % LAB HEMETOLOGY METHOD 06/15/2024 7:42 AM [facility] MCV 102.3(H) 79.0 - 98.0 FL LAB HEMETOLOGY METHOD 06/15/2024 7:42 AM [facility] MCH 34.5(H) 27.0 - 32.0 pcg LAB HEMETOLOGY METHOD 06/15/2024 7:42 AM [facility] MCHC 33.7 32.0 - 37.0 g/dL LAB HEMETOLOGY METHOD 06/15/2024 7:42 AM [facility] RDW 17.0(H) 11.0 - 15.0 % LAB HEMETOLOGY METHOD 06/15/2024 7:42 AM [facility] Platelets 81(L) 130 - 400 K/mcL LAB HEMETOLOGY METHOD 06/15/2024 7:42 AM [facility] Comment:previously verified by slide MPV 11.0 7.0 - 11.0 FL LAB HEMETOLOGY METHOD 06/15/2024 7:42 AM [facility] NRBC 0.0 <1.0 % LAB HEMETOLOGY METHOD 06/15/2024 7:42 AM EST [facility] NRBC Absolute 0.00 <0.10 K/mcL LAB HEMETOLOGY METHOD 06/15/2024 7:42 AM EST [facility] Blood Venous blood specimen / Unknown Venipuncture / Unknown 06/15/2024 6:38 AM EST 06/15/2024 7:06 AM EST us Liang Uribe MD LAB BLOOD ORDERABLE S Final Result [facility] [address] [place] [address], [place] [phone] * Phosphorus (06/15/2024 6:38 AM EST) Phosphorus 3.0 2.5 - 4.5 mg/dL LAB CHEMISTRY METHOD 06/15/2024 7:50 AM EST [facility] Blood Venous blood specimen / Unknown Venipuncture / Unknown 06/15/2024 6:38 AM EST 06/15/2024 7:06 AM EST us Liang Uribe MD LAB BLOOD ORDERABLE S Final Result Performing Organization Address City/[facility]/ZIP Co de Phone Number [facility] [address] [place] [address], [place] [phone] * Differential body fluid (06/14/2024 10:19 AM EST) Fluid Neutrophils % 4 % 06/14/2024 11:38 AM EST [facility] Fluid Lymphocytes % 74 % 06/14/2024 11:38 AM EST [facility] Fluid Monocytes/Macrop hages 22 % 06/14/2024 11:38 AM EST [facility] Fluid Eosinophils % 0 % 06/14/2024 11:38 AM EST [facility] Fluid Basophils % 0 % 06/14/2024 11:38 AM EST [facility] Fluid Other Cells % 0 % 06/14/2024 11:38 AM [facility] Peritoneal Fluid Peritoneal cavity structure / Unknown Non-blood Collection / Unknown 06/14/2024 10:19 AM EST 06/14/2024 10:27 AM EST [facility] - 06/14/2024 11:38 AM EST No reference ranges have been established for body fluids. Clinical correlation recommended. us Cristiana [facility] BODY FLUIDS AND STO OLS ORDERABLES Final Result [facility] [address] [place] [address], [place] [phone] * Cell count with reflex differential, body fluid (06/14/2024 10:19 AM EST) Body Fluid Total Nucleated Cells 218 /mm3 LAB HEMETOLOGY METHOD 06/14/2024 11:38 AM [facility] Body Fluid RBC 1,000 /mm3 LAB HEMETOLOGY METHOD 06/14/2024 11:38 AM [facility] Body Fluid Color Yellow 06/14/2024 11:38 AM [facility] Body Fluid Clarity Clear 06/14/2024 11:38 AM [facility] Body Fluid Source Peritoneal 06/14/2024 11:38 AM [facility] Peritoneal Fluid Peritoneal cavity structure / Unknown Non-blood Collection / Unknown 06/14/2024 10:19 AM EST 06/14/2024 10:27 AM EST [facility] - 06/14/2024 11:38 AM EST No reference ranges have been established for body fluids. Clinical correlation recommended. us Cristiana [facility] BODY FLUIDS AND STO OLS ORDERABLES Final Result [facility] [address] [place] [address], * Non-gynecologic cytology (06/14/2024 10:19 AM EST) Final Diagnosis A. Peritoneal fluid, paracentesis, (ThinPrep, cell block): Negative for malignant cells. 06/17/2024 4:30 PM [facility] Specimen A Adequacy Satisfactory for evaluation 06/17/2024 4:30 PM [facility] Gross Description A. Peritoneal Cavity, : Received 115 ml of yellow fluid; 1 ThinPrep, 1 Cell block Cell block in formalin @1500; total formalin fixation time 6 hours. 06/17/2024 4:30 PM [facility] Disclaimer Unless otherwise specified, all tissue is 10% NB formalin fixed and paraffin embedded. Technical cytopathology services provided by [facility], at [address] [place] [id number] (CLIA # [id number]/Katya Lo MD, Respiratory Services Manager.) 06/17/2024 4:30 PM [facility] Peritoneal Fluid Peritoneal cavity structure / Unknown Non-blood Collection / Unknown 06/14/2024 10:19 AM EST 06/14/2024 2:30 PM EST us Cristiana [facility] LAB CYTOLOGY ORDERABLES Final Result Performing Organization Address City/[facility]/ZIP Co de Phone Number [facility] [address] [place] [address], [place] [phone] * Specific gravity, body fluid (06/14/2024 10:19 AM EST) Spec Grav, Fluid 1.014 06/14/2024 11:01 AM [facility] Peritoneal Fluid Non-blood Collection / Unknown 06/14/2024 10:19 AM EST 06/14/2024 10:26 AM EST [facility] - 06/14/2024 11:01 AM EST No reference ranges have been established for body fluids. Clinical correlation recommended. us Cristiana RAND LAB BODY FLUIDS AND STO OLS ORDERABLES Final Result Performing Organization Address [facility]/ZIP Co de Phone Number [facility] [address] [place] [address], [place] [phone] * Amylase, body fluid (06/14/2024 10:19 AM EST) Amylase, Fluid 24 See Comment unit/L LAB CHEMISTRY METHOD 06/14/2024 11:19 AM EST [facility] Peritoneal Fluid Non-blood Collection / Unknown 06/14/2024 10:19 AM EST 06/14/2024 10:26 AM EST [facility] - 06/14/2024 11:19 AM EST No reference ranges have been established for body fluids. Clinical correlation recommended. us Cristiana RAND LAB BODY FLUIDS AND STO OLS ORDERABLES Final Result Performing Organization Address [facility] Co de Phone Number [facility] [address] [place] [address], [place] [phone] * Glucose, body fluid (06/14/2024 10:19 AM EST) Glucose, Fluid 150 See Comment mg/dL LAB CHEMISTRY METHOD 06/14/2024 11:28 AM EST [facility] Ascites 06/14/2024 10:1 9 AM EST 06/14/2024 10:26 AM EST [facility] - 06/14/2024 11:28 AM EST No reference ranges have been established for body fluids. Clinical correlation recommended. Cristiana RAND LAB BODY FLUIDS AND STO OLS ORDERABLES Final Result Performing Organization Address [facility]/ZIP Co de Phone Number [facility] [address] [place] [address], [place] [phone] * Lactate dehydrogenase, body fluid (06/14/2024 10:19 AM EST) LD, Fluid 78 See Comment unit/L LAB CHEMISTRY METHOD 06/14/2024 11:42 AM EST [facility] Peritoneal Fluid Peritoneal cavity structure / Unknown Non-blood Collection / Unknown 06/14/2024 10:19 AM EST 06/14/2024 10:27 AM EST [facility] - 06/14/2024 11:42 AM EST No reference ranges have been established for body fluids. Clinical correlation recommended. Cristiana RAND LAB BODY FLUIDS AND STO OLS ORDERABLES Final Result Performing Organization Address [facility] de Phone Number [facility] [address] [place] [address], [place] [phone] * Protein, body fluid (06/14/2024 10:19 AM EST) Protein, Fluid 1.4 See Comment g/dL LAB CHEMISTRY METHOD 06/14/2024 11:19 AM EST [facility] Peritoneal Fluid Non-blood Collection / Unknown 06/14/2024 10:19 AM EST 06/14/2024 10:26 AM EST [facility] - 06/14/2024 11:19 AM EST No reference ranges have been established for body fluids. Clinical correlation recommended. Cristiana RAND LAB BODY FLUIDS AND STO OLS ORDERABLES Final Result Performing Organization Address [facility]/ZIP Co de Phone Number [facility] [address] [place] [address], [place] [phone] * Albumin, body fluid (06/14/2024 10:19 AM EST) Albumin, Fluid 0.6 See Comment g/dL LAB CHEMISTRY METHOD 06/14/2024 11:19 AM EST [facility] Peritoneal Fluid Non-blood Collection / Unknown 06/14/2024 10:19 AM EST 06/14/2024 10:26 AM EST Narrative [facility] - 06/14/2024 11:19 AM EST No reference ranges have been established for body fluids. Clinical correlation recommended. Cristiana RAND LAB BODY FLUIDS AND STO OLS ORDERABLES Final Result Performing Organization Address [facility]/ZIP Co de Phone Number [facility] [address] [place] [address], [place] [phone] * Culture body fluid with gram stain (06/14/2024 10:19 AM EST) Fluid Culture No growth at 3 days LAB MICROBIOLOGY METHOD 06/17/2024 11:25 AM EST [facility] Gram Stain Result No polymorphonuclear leukocytes, No epithelial cells, and No organisms noted 06/17/2024 11:25 AM EST [facility] Peritoneal Fluid Peritoneal cavity structure / Unknown Non-blood Collection / Unknown 06/14/2024 10:19 AM EST 06/14/2024 10:26 AM EST Cristiana RAND LAB MICROBIOLOGY - GENE RAL ORDERABLES Final Result Performing Organization Address [facility]/ZIP Co de Phone Number [facility] [address] [place] [address], [place] [phone] * [place] Paracentesis w Image Guidance (06/14/2024 [...] Signed Date: 06/15/2024 12:40 ET Workstation ID: [id number] Transcribed By: Self Edit Transcribed Date: 06/14/2024 11:29 ET Resident/PA/VIDEO GAME SCRIPT WRITER: Milady Chilel Narrative 06/15/2024 12:40 PM EST [...] Aurora Meng Reviewed and Electronically Signed By: Aruora Meng Signed Date: 06/15/2024 12:40 ET Workstation ID: [id number] Transcribed By: Self Edit Transcribed Date: 06/14/2024 11:29 ET Resident/PA/VIDEO GAME SCRIPT WRITER: Milady Chilel Cristiana RAND IMG US PROCEDURES Final Result * Lactate, with reflex (06/14/2024 5:26 AM EST) LACTIC ACID 1.6 0.4 - 2.0 mmol/L LAB CHEMISTRY METHOD 06/14/2024 6:03 AM EST [facility] Blood Venous blood specimen / Unknown Venipuncture / Unknown 06/14/2024 5:26 AM EST 06/14/2024 5:33 AM EST us Napoleon Neely MD LAB BLOOD ORDERABLES Final Re sult Performing Organization Address [facility]/ZIP Co de Phone Number [facility] [address] [place] [address], [place] [phone] * Culture blood (06/14/2024 5:22 AM EST) Culture, Blood No growth at 5 days 06/19/2024 6:01 AM EST [facility] Blood Venous blood specimen / Unknown Venipuncture / Unknown 06/14/2024 5:22 AM EST 06/14/2024 5:33 AM EST us Napoleon Neely MD LAB MICROBIOLOGY - GENERAL OR DERABLES Final Result [facility] [address] [place] [address], * (ABNORMAL) CBC auto differential (06/14/2024 5:14 AM EST) WBC 4.5(L) 4.8 - 10.8 K/mcL LAB HEMETOLOGY METHOD 06/14/2024 6:00 AM [facility] RBC 3.30(L) 4.50 - 5.50 M/mcL LAB HEMETOLOGY METHOD 06/14/2024 6:00 AM [facility] Hemoglobin 11.6(L) 13.5 - 17.5 g/dL LAB HEMETOLOGY METHOD 06/14/2024 6:00 AM [facility] Hematocrit 35.2(L) 42.0 - 54.0 % LAB HEMETOLOGY METHOD 06/14/2024 6:00 AM [facility] MCV 107.0(H) 79.0 - 98.0 FL LAB HEMETOLOGY METHOD 06/14/2024 6:00 AM [facility] MCH 35.3(H) 27.0 - 32.0 pcg LAB HEMETOLOGY METHOD 06/14/2024 6:00 AM [facility] MCHC 33.0 32.0 - 37.0 g/dL LAB HEMETOLOGY METHOD 06/14/2024 6:00 AM [facility] RDW 17.5(H) 11.0 - 15.0 % LAB HEMETOLOGY METHOD 06/14/2024 6:00 AM [facility] Platelets 77(L) 130 - 400 K/mcL LAB HEMETOLOGY METHOD 06/14/2024 6:00 AM [facility] Comment:previously verified by slide MPV 10.3 7.0 - 11.0 FL LAB HEMETOLOGY METHOD 06/14/2024 6:00 AM [facility] NRBC 0.0 <1.0 % LAB HEMETOLOGY METHOD 06/14/2024 6:00 AM [facility] NRBC Absolute 0.00 <0.10 K/mcL LAB HEMETOLOGY METHOD 06/14/2024 6:00 AM [facility] Neutrophils Relative 75.4 % LAB HEMETOLOGY METHOD 06/14/2024 6:00 AM [facility] Lymphocytes Relative 13.9 % LAB HEMETOLOGY METHOD 06/14/2024 6:00 AM [facility] Monocytes Relative 9.7 % LAB HEMETOLOGY METHOD 06/14/2024 6:00 AM [facility] Eosinophils Relative 0.4 % LAB HEMETOLOGY METHOD 06/14/2024 6:00 AM [facility] Basophils Relative 0.4 % LAB HEMETOLOGY METHOD 06/14/2024 6:00 AM [facility] Immature Granulocytes Relative 0.2 % LAB HEMETOLOGY METHOD 06/14/2024 6:00 AM [facility] Neutrophils Absolute 3.35 1.50 - 7.00 K/mcL LAB HEMETOLOGY METHOD 06/14/2024 6:00 AM [facility] Lymphocytes Absolute 0.62(L) 1.00 - 5.00 K/mcL LAB HEMETOLOGY METHOD 06/14/2024 6:00 AM [facility] Monocytes Absolute 0.43 0.20 - 1.00 K/mcL LAB HEMETOLOGY METHOD 06/14/2024 6:00 AM [facility] Eosinophils Absolute 0.02 0.00 - 0.50 K/mcL LAB HEMETOLOGY METHOD 06/14/2024 6:00 AM [facility] Basophils Absolute 0.02 0.00 - 0.20 K/mcL LAB HEMETOLOGY METHOD 06/14/2024 6:00 AM EST [facility] Immature Granulocytes Absolute 0.01 0.00 - 0.03 K/mcL LAB HEMETOLOGY METHOD 06/14/2024 6:00 AM EST [facility] Blood Venous blood specimen / Unknown Venipuncture / Unknown 06/14/2024 5:14 AM EST 06/14/2024 5:34 AM EST us Napoleon Neely MD LAB BLOOD ORDERABLES Final Re sult Performing Organization Address [facility]/ZIP Co de Phone Number [facility] [address] [place] [address], [place] [phone] * Magnesium (06/14/2024 5:14 AM EST) Magnesium 1.9 1.9 - 2.6 mg/dL LAB CHEMISTRY METHOD 06/14/2024 5:57 AM EST [facility] Blood Venous blood specimen / Unknown Venipuncture / Unknown 06/14/2024 5:14 AM EST 06/14/2024 5:34 AM EST us Napoleon Neely MD LAB BLOOD ORDERABLES Final Re sult Performing Organization Address [facility]/ZIP Co de Phone Number [facility] [address] [place] [address], [place] [phone] * (ABNORMAL) Basic metabolic panel (06/14/2024 5:14 AM EST) Sodium 133 133 - 145 mmol/L LAB CHEMISTRY METHOD 06/14/2024 5:57 AM EST [facility] Potassium 3.8 3.5 - 5.5 mmol/L LAB CHEMISTRY METHOD 06/14/2024 5:57 AM [facility] Chloride 99 96 - 110 mmol/L LAB CHEMISTRY METHOD 06/14/2024 5:57 AM EST [facility] CO2 31 21 - 32 mmol/L LAB CHEMISTRY METHOD 06/14/2024 5:57 AM [facility] Anion Gap 3 3 - 11 LAB CHEMISTRY METHOD 06/14/2024 5:57 AM [facility] Glucose 131(H) 70 - 100 mg/dL LAB CHEMISTRY METHOD 06/14/2024 5:57 AM [facility] BUN 13 5 - 25 mg/dL LAB CHEMISTRY METHOD 06/14/2024 5:57 AM [facility] Creatinine 0.56(L) 0.70 - 1.30 mg/dL LAB CHEMISTRY METHOD 06/14/2024 5:57 AM [facility] eGFR 109 >=60 mL/min/1. 73m2 LAB CHEMISTRY METHOD 06/14/2024 5:57 AM [facility] Comment:Calculation based on the??Chronic Kidney Disease Epidemiology Collaboration (CKD-EPI) equation refit??without adjustment for race. BUN/Creatinine Ratio 23.2 LAB CHEMISTRY METHOD 06/14/2024 5:57 AM [facility] Calcium 8.2(L) 8.5 - 10.5 mg/dL LAB CHEMISTRY METHOD 06/14/2024 5:57 AM [facility] Blood Venous blood specimen / Unknown Venipuncture / Unknown 06/14/2024 5:14 AM EST 06/14/2024 5:34 AM EST us Napoleon Neely MD LAB BLOOD ORDERABLES Final Re sult [facility] [address] [place] [address], * Culture blood (06/14/2024 5:14 AM EST) Culture, Blood No growth at 5 days 06/19/2024 6:01 AM [facility] Blood Venous blood specimen / Unknown Venipuncture / Unknown 06/14/2024 5:14 AM EST 06/14/2024 5:33 AM EST Napoleon Neley MD LAB MICROBIOLOGY - GENERAL OR DERABLES Final Result Performing Organization Address [facility] Co de Phone Number [facility] [address] [place] [address], [place] [phone] * (ABNORMAL) Lactate, with reflex (06/13/2024 3:34 PM EST) LACTIC ACID 2.6(H) 0.4 - 2.0 mmol/L LAB CHEMISTRY METHOD 06/13/2024 4:40 PM EST [facility] Blood Venous blood specimen / Unknown Venipuncture / Unknown 06/13/2024 3:34 PM EST 06/13/2024 4:07 PM EST Barak Benjamin MD LAB BLOOD ORDERABLES Berenice l Result Performing Organization Address [facility] de Phone Number [facility] [address] [place] [address], [place] [phone] * Prostate specific antigen screen (06/13/2024 12:37 PM EST) Pathologist [facility] PSA 0.18 0.00 - 4.00 ng/mL LAB CHEMISTRY METHOD 06/13/2024 2:31 PM EST [facility] Blood Venous blood specimen / Unknown Venipuncture / Unknown 06/13/2024 12:37 PM EST 06/13/2024 12:55 PM EST Narrative [facility] - 06/13/2024 2:31 PM EST The Siemens Advia Centaur Chemiluminescent Immunoassay is used. Results obtained with different assay methods or kits cannot be used interchangeably. Results cannot be interpreted as absolute evidence of the presence or absence of malignant disease. Napoleon Neely MD LAB BLOOD ORDERABLES Final Re sult Performing Organization Address [facility] Co de Phone Number [facility] [address] [place] [address], [place] [phone] * (ABNORMAL) Hepatic function panel (06/13/2024 12:37 PM EST) Total Protein 5.9(L) 6.0 - 8.0 g/dL LAB CHEMISTRY METHOD 06/13/2024 2:25 PM EST [facility] Albumin 2.3(L) 3.2 - 5.0 g/dL LAB CHEMISTRY METHOD 06/13/2024 2:25 PM EST [facility] Total Bilirubin 2.6(H) 0.0 - 1.4 mg/dL LAB CHEMISTRY METHOD 06/13/2024 2:25 PM [facility] Bilirubin, Direct 1.4(H) 0.0 - 0.3 mg/dL LAB CHEMISTRY METHOD 06/13/2024 2:25 PM EST [facility] Bilirubin, Indirect 1.2(H) 0.0 - 1.1 mg/dL LAB CHEMISTRY METHOD 06/13/2024 2:25 PM EST [facility] ALT (SGPT) 20 10 - 60 unit/L LAB CHEMISTRY METHOD 06/13/2024 2:25 PM EST [facility] AST (SGOT) 32 10 - 42 unit/L LAB CHEMISTRY METHOD 06/13/2024 2:25 PM EST [facility] Alkaline Phosphatase 133(H) 42 - 121 unit/L LAB CHEMISTRY METHOD 06/13/2024 2:25 PM [facility] Blood Venous blood specimen / Unknown Venipuncture / Unknown 06/13/2024 12:37 PM EST 06/13/2024 12:55 PM EST Napoleon Neely MD LAB BLOOD ORDERABLES Final Re sult [facility] [address] [place] [address], [place] [phone] * (ABNORMAL) C-reactive protein (06/13/2024 12:37 PM EST) [facility] C-Reactive Protein 10.20(H) <=0.50 mg/dL LAB CHEMISTRY METHOD 06/13/2024 2:25 PM [facility] Blood Venous blood specimen / Unknown Venipuncture / Unknown 06/13/2024 12:37 PM EST 06/13/2024 12:55 PM EST us Napoleon Neely MD LAB BLOOD ORDERABLES Final Re sult [facility] [address] [place] [address], [place] [phone] * (ABNORMAL) Basic metabolic panel (06/13/2024 12:37 PM EST) [facility] Sodium 133 133 - 145 mmol/L LAB CHEMISTRY METHOD 06/13/2024 1:21 PM [facility] Potassium 4.0 3.5 - 5.5 mmol/L LAB CHEMISTRY METHOD 06/13/2024 1:21 PM [facility] Chloride 102 96 - 110 mmol/L LAB CHEMISTRY METHOD 06/13/2024 1:21 PM [facility] CO2 26 21 - 32 mmol/L LAB CHEMISTRY METHOD 06/13/2024 1:21 PM [facility] Anion Gap 5 3 - 11 LAB CHEMISTRY METHOD 06/13/2024 1:21 PM [facility] Glucose 178(H) 70 - 100 mg/dL LAB CHEMISTRY METHOD 06/13/2024 1:21 PM [facility] BUN 13 5 - 25 mg/dL LAB CHEMISTRY METHOD 06/13/2024 1:21 PM [facility] Creatinine 0.65(L) 0.70 - 1.30 mg/dL LAB CHEMISTRY METHOD 06/13/2024 1:21 PM EST [facility] eGFR 104 >=60 mL/min/1. 73m2 LAB CHEMISTRY METHOD 06/13/2024 1:21 PM EST [facility] Comment:Calculation based on the??Chronic Kidney Disease Epidemiology Collaboration (CKD-EPI) equation refit??without adjustment for race. BUN/Creatinine Ratio 20.0 LAB CHEMISTRY METHOD 06/13/2024 1:21 PM EST [facility] Calcium 8.2(L) 8.5 - 10.5 mg/dL LAB CHEMISTRY METHOD 06/13/2024 1:21 PM EST [facility] Blood Venous blood specimen / Unknown Venipuncture / Unknown 06/13/2024 12:37 PM EST 06/13/2024 12:55 PM EST us Barak Benjamin MD LAB BLOOD ORDERABLES Berenice frank Result [facility] [address] [place] [address], [place] [phone] * (ABNORMAL) CBC auto differential (06/13/2024 12:37 PM EST) WBC 6.9 4.8 - 10.8 K/mcL LAB HEMETOLOGY METHOD 06/13/2024 1:10 PM [facility] RBC 3.20(L) 4.50 - 5.50 M/mcL LAB HEMETOLOGY METHOD 06/13/2024 1:10 PM [facility] Hemoglobin 11.0(L) 13.5 - 17.5 g/dL LAB HEMETOLOGY METHOD 06/13/2024 1:10 PM [facility] Hematocrit 32.8(L) 42.0 - 54.0 % LAB HEMETOLOGY METHOD 06/13/2024 1:10 PM [facility] MCV 104.1(H) 79.0 - 98.0 FL LAB HEMETOLOGY METHOD 06/13/2024 1:10 PM [facility] MCH 34.9(H) 27.0 - 32.0 pcg LAB HEMETOLOGY METHOD 06/13/2024 1:10 PM [facility] MCHC 33.5 32.0 - 37.0 g/dL LAB HEMETOLOGY METHOD 06/13/2024 1:10 PM [facility] RDW 17.6(H) 11.0 - 15.0 % LAB HEMETOLOGY METHOD 06/13/2024 1:10 PM [facility] Platelets 74(L) 130 - 400 K/mcL LAB HEMETOLOGY METHOD 06/13/2024 1:10 PM [facility] Comment:previously verified by slide MPV 11.2(H) 7.0 - 11.0 FL LAB HEMETOLOGY METHOD 06/13/2024 1:10 PM [facility] NRBC 0.0 <1.0 % LAB HEMETOLOGY METHOD 06/13/2024 1:10 PM [facility] NRBC Absolute 0.00 <0.10 K/mcL LAB HEMETOLOGY METHOD 06/13/2024 1:10 PM [facility] Neutrophils Relative 87.5 % LAB HEMETOLOGY METHOD 06/13/2024 1:10 PM [facility] Lymphocytes Relative 5.5 % LAB HEMETOLOGY METHOD 06/13/2024 1:10 PM [facility] Monocytes Relative 6.4 % LAB HEMETOLOGY METHOD 06/13/2024 1:10 PM [facility] Eosinophils Relative 0.1 % LAB HEMETOLOGY METHOD 06/13/2024 1:10 PM [facility] Basophils Relative 0.1 % LAB HEMETOLOGY METHOD 06/13/2024 1:10 PM [facility] Immature Granulocytes Relative 0.4 % LAB HEMETOLOGY METHOD 06/13/2024 1:10 PM EST [facility] Neutrophils Absolute 6.01 1.50 - 7.00 K/mcL LAB HEMETOLOGY METHOD 06/13/2024 1:10 PM EST [facility] Lymphocytes Absolute 0.38(L) 1.00 - 5.00 K/mcL LAB HEMETOLOGY METHOD 06/13/2024 1:10 PM EST [facility] Monocytes Absolute 0.44 0.20 - 1.00 K/mcL LAB HEMETOLOGY METHOD 06/13/2024 1:10 PM EST [facility] Eosinophils Absolute 0.01 0.00 - 0.50 K/mcL LAB HEMETOLOGY METHOD 06/13/2024 1:10 PM EST [facility] Basophils Absolute 0.01 0.00 - 0.20 K/mcL LAB HEMETOLOGY METHOD 06/13/2024 1:10 PM EST [facility] Immature Granulocytes Absolute 0.03 0.00 - 0.03 K/[facility] LAB HEMETOLOGY METHOD 06/13/2024 1:10 PM EST [facility] Blood Venous blood specimen / Unknown Venipuncture / Unknown 06/13/2024 12:37 PM EST 06/13/2024 12:55 PM EST us Barak Benjamin MD LAB BLOOD ORDERABLES Berenice frank Result [facility] [address] [place] [address], * (ABNORMAL) Lactate, with reflex (06/13/2024 12:37 PM EST) LACTIC ACID 2.9(H) 0.4 - 2.0 mmol/L LAB CHEMISTRY METHOD 06/13/2024 1:26 PM EST [facility] Blood Venous blood specimen / Unknown Venipuncture / Unknown 06/13/2024 12:37 PM EST 06/13/2024 12:55 PM EST us Barak Benjamin MD LAB BLOOD ORDERABLES Berenice frank Result [facility] ([facility]) [facility] [address] [place] [address], documented in this encounter Visit Diagnoses Diagnosis Pseudomonal bacteremia- Primary Bacteremia Alex catheter in place Other postprocedural status Urinary tract infection associated with indwelling urethral catheter, initial encounter ([facility]) Hx of ascites Anasarca Edema [...] G Mccarty, RN) [phone] (Given - Provider: Ruchi Pedro, VIVIAN) [...] 06/16/2024 documented in this encounter Care Teams Custom Bow Maker Relationship Specialty Start Date End Date Dalia Harmon PA [address] [place] [address], [address] [place] [address] PCP - General 05/10/24 documented as of this encounter
--- OUTSIDE RECORDS SUMMARY | 2024-06-23 19:35 | XMS_ITS | Encounter Summary ---
Author Organization [facility] Address [address] [place] [phone] Care Team Providers Care Assisted Living Coordinator Name Role Phone Dalia Harmon Primary Care Provider [phone] Encounter Details Date Type Department Care Team (Late st Contact Info) Description 05/26/2024 Lab Requisition [facility] - Main Lab [address] [facility] [phone] Gerry Barksdale [address] [facility] [address] [place] [phone] Weakness; Urinary tract infection, site not specified [...] 11:20 AM EST Office Visit Gastroenterology - [place] [address] [place] [phone] Han Sloan DO 175 [facility] [address] [place] [address] 07/06/2024 1:00 PM EDT Appointment [facility] Interventional Radiology [address] [place] [phone] 08/12/2024 10:30 AM EDT Ancillary Procedure [facility] - [address] [place] [phone] documented as of this encounter Procedures Procedure [...] LAB CHEMISTRY METHOD 05/26/2024 1:39 PM EST [facility] Blood Venous blood specimen / Unknown Venipuncture / Unknown 05/26/2024 6:59 AM EST 05/26/2024 10:29 AM EST us Gerry Barksdale LAB BLOOD ORDERABLES Final Resul t [facility] [address] [place] [address], * Folate (05/26/2024 6:59 AM EST) Folate 4.3 2.8 - 17.0 ng/ml LAB CHEMISTRY METHOD 05/26/2024 1:39 PM EST [facility] Blood Venous blood specimen / Unknown Venipuncture / Unknown 05/26/2024 6:59 AM EST 05/26/2024 10:29 AM EST [facility] LAB BLOOD ORDERABLES Final Resul t Performing Organization Address [facility] Co de Phone Number [facility] [address] [place] [address], [place] [phone] * (ABNORMAL) Thyroid stimulating hormone (05/26/2024 6:59 AM EST) Pathologist [facility] TSH 5.20(H) 0.40 - 4.00 mcIU/mL LAB CHEMISTRY METHOD 05/26/2024 1:24 PM EST [facility] Blood Venous blood specimen / Unknown Venipuncture / Unknown 05/26/2024 6:59 AM EST 05/26/2024 10:29 AM EST Gerry Chavezmeadow LAB BLOOD ORDERABLES Final Resul t Performing Organization Address [facility] de Phone Number [facility] [address] [place] [address], [place] [phone] * (ABNORMAL) Comprehensive metabolic panel (05/26/2024 6:59 AM EST) Pathologist [facility] Sodium 133 133 - 145 mmol/L LAB CHEMISTRY METHOD 05/26/2024 1:16 PM EST [facility] Potassium 3.6 3.5 - 5.5 mmol/L LAB CHEMISTRY METHOD 05/26/2024 1:16 PM [facility] Chloride 95(L) 96 - 110 mmol/L LAB CHEMISTRY METHOD 05/26/2024 1:16 PM EST [facility] CO2 31 21 - 32 mmol/L LAB CHEMISTRY METHOD 05/26/2024 1:16 PM [facility] Anion Gap 7 3 - 11 LAB CHEMISTRY METHOD 05/26/2024 1:16 PM [facility] Glucose 116(H) 70 - 100 mg/dL LAB CHEMISTRY METHOD 05/26/2024 1:16 PM [facility] BUN 15 5 - 25 mg/dL LAB CHEMISTRY METHOD 05/26/2024 1:16 PM [facility] Creatinine 0.52(L) 0.70 - 1.30 mg/dL LAB CHEMISTRY METHOD 05/26/2024 1:16 PM [facility] eGFR 111 >=60 mL/min/1. 73m2 LAB CHEMISTRY METHOD 05/26/2024 1:16 PM [facility] Comment:Calculation based on the??Chronic Kidney Disease Epidemiology Collaboration (CKD-EPI) equation refit??without adjustment for race. BUN/Creatinine Ratio 28.8 LAB CHEMISTRY METHOD 05/26/2024 1:16 PM [facility] Calcium 8.2(L) 8.5 - 10.5 mg/dL LAB CHEMISTRY METHOD 05/26/2024 1:16 PM [facility] AST (SGOT) 27 10 - 42 unit/L LAB CHEMISTRY METHOD 05/26/2024 1:16 PM [facility] ALT (SGPT) 20 10 - 60 unit/L LAB CHEMISTRY METHOD 05/26/2024 1:16 PM [facility] Alkaline Phosphatase 139(H) 42 - 121 unit/L LAB CHEMISTRY METHOD 05/26/2024 1:16 PM [facility] Total Protein 6.0 6.0 - 8.0 g/dL LAB CHEMISTRY METHOD 05/26/2024 1:16 PM [facility] Albumin 2.3(L) 3.2 - 5.0 g/dL LAB CHEMISTRY METHOD 05/26/2024 1:16 PM EST [facility] Total Bilirubin 3.2(H) 0.0 - 1.4 mg/dL LAB CHEMISTRY METHOD 05/26/2024 1:16 PM [facility] Blood Venous blood specimen / Unknown Venipuncture / Unknown 05/26/2024 6:59 AM EST 05/26/2024 10:29 AM EST Gerry Barksdale LAB BLOOD ORDERABLES Final Resul t [facility] [address] [place] [address], * (ABNORMAL) Complete blood count (05/26/2024 6:59 AM EST) WBC 7.6 4.8 - 10.8 K/mcL LAB HEMETOLOGY METHOD 05/26/2024 11:18 AM [facility] RBC 3.50(L) 4.50 - 5.50 M/mcL LAB HEMETOLOGY METHOD 05/26/2024 11:18 AM [facility] Hemoglobin 12.2(L) 13.5 - 17.5 g/dL LAB HEMETOLOGY METHOD 05/26/2024 11:18 AM [facility] Hematocrit 35.5(L) 42.0 - 54.0 % LAB HEMETOLOGY METHOD 05/26/2024 11:18 AM [facility] MCV 100.6(H) 79.0 - 98.0 FL LAB HEMETOLOGY METHOD 05/26/2024 11:18 AM [facility] MCH 34.6(H) 27.0 - 32.0 pcg LAB HEMETOLOGY METHOD 05/26/2024 11:18 AM [facility] MCHC 34.4 32.0 - 37.0 g/dL LAB HEMETOLOGY METHOD 05/26/2024 11:18 AM EST [facility] RDW 15.9(H) 11.0 - 15.0 % LAB HEMETOLOGY METHOD 05/26/2024 11:18 AM EST [facility] Platelets 139 130 - 400 K/mcL LAB HEMETOLOGY METHOD 05/26/2024 11:18 AM EST [facility] MPV 10.8 7.0 - 11.0 FL LAB HEMETOLOGY METHOD 05/26/2024 11:18 AM EST [facility] NRBC 0.0 <1.0 % LAB HEMETOLOGY METHOD 05/26/2024 11:18 AM EST [facility] NRBC Absolute 0.00 <0.10 K/mcL LAB HEMETOLOGY METHOD 05/26/2024 11:18 AM EST [facility] Blood Venous blood specimen / Unknown Venipuncture / Unknown 05/26/2024 6:59 AM EST 05/26/2024 10:29 AM EST us Gerry Barksdale LAB BLOOD ORDERABLES Final Resul t [facility] [address] [place] [address], documented in this encounter Visit Diagnoses Diagnosis Weakness Other malaise and fatigue Urinary tract infection, site not specified documented in this encounter Care Teams Assisted Living Coordinator Relationship Specialty Start Date End Date Dalia Harmon PA [address] [place] [address], [address] [place] [address] PCP - General 05/10/24 documented as of this encounter
--- OUTSIDE RECORDS SUMMARY | 2024-06-23 19:35 | XMS_ITS | Encounter Summary ---
Author Organization [facility] Address [address] [place] [phone] Care Team Providers Care Life Enrichment Assistant Name Role Phone Dalia Harmon Primary Care Provider [phone] Reason for Referral * Imaging (Routine) - Pending Review Specialty Diagnoses / Procedures Referred By Contac t Referred To Contact Cardiology Diagnoses 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) Procedures Transthoracic echocardiogram (TTE) complete with PRN contrast, bubble, strain, and 3D order panel OH TTE W 2D IMAGE COMPLETE W DOPPLER ECHO & COLOR FLOW DOPPLER ECHO OH EDUARDO 2D COMPLETE W/CONTRAST OR W & WO CONTRAST WITH DOPPLER Han Sloan DO [address] [address] Phone: tel: fax: [facility] Referral ID Status Reason Start Date Expiration Date V isits Requested Visits Authorized [id number] Pending Review 05/25/2024 05/25/2025 1 1 * Consultation (Routine) - Closed Specialty Diagnoses / Procedures Referred By Contac t Referred To Contact Interventional Radiology Diagnoses 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) Han Sloan DO [address] [address] Phone: tel: fax: [facility] [address] [place] [address] Phone: tel: Referral ID Status Reason Start Date Expiration Date V isits Requested Visits Authorized [id number] Closed Specialty Services Required 05/25/2024 05/25/2025 1 1 Encounter Details Date Type Department Care Team (Late st Contact Info) Description 05/25/2024 Telephone Gastroenterology - [place] [address] [place] [phone] Han Sloan DO [address] [place] [address] Social History Tobacco Use Types Packs/Day Years [...] 11:20 AM EST Office Visit Gastro[facility]ology - [place] [address] [place] [phone] Han Sloan DO [address] [place] [address] 07/06/2024 1:00 PM EDT Appointment [facility] Interventional Radiology [address] [place] [phone] 08/12/2024 10:30 AM EDT Ancillary Procedure [facility] - [address] [place] [phone] Scheduled Orders Name Type Priority Associated Diagnoses [...] Primary documented in this encounter Care Teams Life Enrichment Assistant Relationship Specialty Start Date End Date Dalia Harmon PA [address] [place] [address], [address] [place] [address] PCP - General 05/10/24 documented as of this encounter
--- OUTSIDE RECORDS SUMMARY | 2024-06-23 19:35 | XMS_ITS | Encounter Summary ---
Author Organization [facility] Address [id number] [place] [id number] Care Team Providers Care Plastic Surgery Specialist Name Role Phone Dalia Harmon Primary Care Provider [phone] Reason for Visit * Reason Comments Blood in Urine Encounter Details Date Type Department Care Team (Late st Contact Info) Description 06/11/2024 10:01 PM EST - 06/12/2024 12:27 PM EST Emergency [facility] Emergency [address] [place] [phone] Barak Benjamin MD [address] [place] [address] Gross hematuria (Primary Dx); Tachycardia; Abnormal chest [...] be sent through Care Everywhere. * Hematuria ([place]) documented in this encounter Medications at Time [...] Levaquin has been sent to the pharmacy photo intern kelly, ED attending aware. Will attempt contact [...] removed with Gio PARK and new [address]. Initial clot came out followed by 125ml of bloody urine that became progressively clearer, no more clots visualized. Will monitor output and color to continue assessing patency. Boom Correa RN 06/11/24 0 * Boom Correa RN - 06/11/2024 10:02 [...] REFLEX MICROSCOPIC AND CULTURE - Abnormal Specific [place] Urine 1.007 pH, Urine 6.0 Leukocytes, Urine [...] Procedure Abnormality Status --------- ------ CBC auto differential[[id number]] Abnormal Final result Please view results for these tests on the individual orders. URINALYSIS WITH REFLEX MICROSCOPIC AND CULTURE Narrative: The following orders were created for panel order Urinalysis with reflex microscopic and culture. Procedure Abnormality Status --------- ------ Urinalysis with reflex ...[[id number]] Abnormal Final result Pugh urine culture tube[[id number]] Final result Please view results for these [...] recommended in 3 months to assess stability. Qqshf-ph-mhtdkoza size left pleural effusion and trace right [...] Urinalysis is still pending. Patient placed on awake overnight monitor, EKG, blood cultures and lactic to [...] 0700 Signed out change of shift to [facility] pending CT abdomen pelvis and ultimate disposition. [...] 11:20 AM EST Office Visit Gastroenterology - [place] [address] [place] [phone] Han Sloan, DO [address] [place] [address] 07/06/2024 1:00 PM EDT Appointment [facility] Interventional Radiology [address] [place] [phone] 08/12/2024 10:30 AM EDT Ancillary Procedure [facility] [address] [place] [id number] documented as of this encounter Procedures Procedure [...] LAB CHEMISTRY METHOD 06/12/2024 7:31 AM EST [facility] Blood Venous blood specimen / Unknown Venipuncture / Unknown 06/12/2024 6:44 AM EST 06/12/2024 6:58 AM EST Narrative [facility] - 06/12/2024 7:31 AM EST High levels of biotin in samples may falsely decrease hsTroponin values. ??Use caution when interpreting hsTroponin results in patients taking biotin who exhibit renal impairment (eGFR <60) or in patients taking more than 20 mg/day of biotin. us Nayeli RAND LAB BLOOD ORDERABLES Final Resu lt [facility] [address] [place] [address], [place] [phone] * CT Abdomen Pelvis w Contrast (06/12/2024 6:28 AM EST) Anatomical Region Laterality Modality Body Computed Tomogra phy 06/12/2024 7:06 AM EST Impressions 06/12/2024 7:06 AM EST Impression: Cirrhotic liver with portal hypertension including uphbvale-hn-swhfc volume ascites, splenomegaly and varices. No apparent [...] Impression: Cirrhotic liver with portal hypertension including cejqtbtx-wm-jniye volume ascites, splenomegaly and varices. No apparent [...] recommended in 3 months to assess stability. Pevtx-gl-qtlczahy size left pleural effusion and trace right [...] contour and moderate volume of ascites. Splenomegaly. Mnkcg-fi-czockheo size left pleural effusion and trace right [...] contour and moderate volume of ascites. Splenomegaly. Qirch-vv-gfvlwyjm size left pleural effusion and trace right [...] recommended in 3 months to assess stability. Rjeja-kz-eqgwrwug size left pleural effusion and trace right [...] time with INR (06/12/2024 5:19 AM EST) [facility] Protime 22.0(H) 10.6 - 13.9 sec LAB COAGULATION METHOD 06/12/2024 5:38 AM EST [facility] INR 1.8 LAB COAGULATION METHOD 06/12/2024 5:38 AM EST [facility] Blood Venous blood specimen / Unknown Venipuncture / Unknown 06/12/2024 5:19 AM EST 06/12/2024 5:22 AM EST Nayeli RAND LAB BLOOD ORDERABLES Final Resu lt Performing Organization Address [facility]/ZIP Co de Phone Number [facility] [address] [place] [address], [place] [phone] * B-type natriuretic peptide (06/12/2024 5:19 AM EST) [facility] BNP 95 <=100 pcg/mL LAB CHEMISTRY METHOD 06/12/2024 6:10 AM EST [facility] Blood Venous blood specimen / Unknown Venipuncture / Unknown 06/12/2024 5:19 AM EST 06/12/2024 5:22 AM EST Nayeli RAND LAB BLOOD ORDERABLES Final Resu lt Performing Organization Address City/[facility]/ZIP Co de Phone Number [facility] [address] [place] [address], [place] [phone] * Troponin I high sensitivity (06/12/2024 5:19 AM EST) Pathologist [facility] High Sensitivity Troponin I 22 <=79 ng/L LAB CHEMISTRY METHOD 06/12/2024 5:56 AM EST [facility] Blood Venous blood specimen / Unknown Venipuncture / Unknown 06/12/2024 5:19 AM EST 06/12/2024 5:22 AM EST Narrative [facility] - 06/12/2024 5:56 AM EST High levels of biotin in samples may falsely decrease hsTroponin values. ??Use caution when interpreting hsTroponin results in patients taking biotin who exhibit renal impairment (eGFR <60) or in patients taking more than 20 mg/day of biotin. us Nayeli RAND LAB BLOOD ORDERABLES Final Resu lt Performing Organization Address City/[facility]/ZIP Co de Phone Number [facility] [address] [place] [address], [place] [phone] * ECG 12 lead (06/12/2024 3:57 AM EST) [facility] Ventricular Rate ECG 118 BPM GEMUSE Atrial Rate 119 BPM GEMUSE QRS Duration 124 ms GEMUSE Q-T Interval 348 ms GEMUSE QTc 487 ms GEMUSE R [place] -36 degrees GEMUSE T [place] 35 degrees GEMUSE ECG Interpretation Sinus tachycardia [...] ECG ORDERABLES Final Result Performing Organization Address City/[facility]/ZIP Co de Phone Number GEMUSE * (ABNORMAL) Blood culture pathogens molecular study (06/12/2024 3:44 AM EST) Pathologist [facility] Pseudomonas aeruginosa Detected (A) Not Detected LAB MICROBIOLOGY METHOD 06/13/2024 7:45 AM EST [facility] Blood Venous blood specimen / Unknown Venipuncture / Unknown 06/12/2024 3:44 AM EST 06/12/2024 3:51 AM EST Nayeli RAND LAB MICROBIOLOGY - GENERAL ORDE RABLES Final Result [facility] [address] [place] [address], [place] [phone] * (ABNORMAL) Blood Culture, Peripheral Draw #2 (06/12/2024 3:44 AM EST) [facility] Culture, Blood Pseudomonas aeruginosa(AA) SAVANNAH 06/16/2024 8:10 AM EST [facility] Comment: The organism value for this result has been updated. These results have been appended to the previously preliminary verified report. This is an edited result. Previous organism was Gram negative bacilli on 06/14/2024 at 1009 EST. Gram Stain Result Aerobic and Anaerobic bottles Gram negative bacilli(AA) 06/16/2024 8:10 AM EST [facility] Comment:This is an appended [...] ORDE RABLES Final Result Performing Organization Address [facility]/ZIP Co de Phone Number [facility] [address] [place] [address], * (ABNORMAL) Lactate (06/12/2024 3:40 AM EST) Lactate 3.2(HH) 0.4 - 2.0 mmol/L LAB CHEMISTRY METHOD 06/12/2024 4:30 AM EST [facility] Blood Venous blood specimen / Unknown Venipuncture / Unknown 06/12/2024 3:40 AM EST 06/12/2024 3:51 AM EST us Nayeli RAND LAB BLOOD ORDERABLES Final Resu lt Performing Organization Address [facility]/ZIP Co de Phone Number [facility] [address] [place] [address], * (ABNORMAL) Blood Culture, Peripheral Draw #1 (06/12/2024 3:40 AM EST) [facility] Culture, Blood Pseudomonas aeruginosa(AA) SAVANNAH 06/16/2024 8:10 AM EST [facility] Comment: The organism value for this result has been updated. These results have been appended to the previously preliminary verified report. This is an edited result. Previous organism was Gram negative bacilli on 06/14/2024 at 1012 EST. Gram Stain Result Aerobic bottle Gram negative bacilli(AA) 06/16/2024 8:10 AM EST [facility] Comment:This is an appended report. These results have been appended to a previously preliminary verified report. Blood Venous blood specimen / Unknown Venipuncture / Unknown 06/12/2024 3:40 AM EST 06/12/2024 3:51 AM EST Ketty [facility] - 06/16/2024 8:10 AM EST For susceptibilities refer to culture on 06/12/24 at 0344. us Nayeli RAND LAB MICROBIOLOGY - GENERAL ORDE RABLES Final Result [facility] [address] [place] [address], [place] [phone] * (ABNORMAL) Culture urine (06/12/2024 1:15 AM EST) Culture, Urine >100,000 CFU/mL Pseudomonas aeruginosa(A) SAVANNAH 06/15/2024 9:00 AM EST [facility] Comment: This is an [...] MICROBIOLOGY - GENERAL ORDE RABJUANI Final Result [facility] [address] [place] [address], [place] [phone] * Pugh urine culture tube (06/12/2024 1:15 AM EST) Pathologist [facility] Extra Tube Hold for add-ons. 06/12/2024 4:01 AM EST [facility] Comment:Auto resulted. Urine Urine specimen obtained by clean catch procedure / Unknown Non-blood Collection / Unknown 06/12/2024 1:15 AM EST 06/12/2024 2:59 AM EST us Nayeli RAND LAB URINE ORDERABLES Final Resu lt [facility] [address] [place] [address], [place] [phone] * (ABNORMAL) Urinalysis with reflex microscopic and culture (06/12/2024 1:15 AM EST) Specific [place] Urine 1.007 1.003 - 1.030 LAB URINALYSIS - AUTOMATED METHOD 06/12/2024 3:41 AM [facility] pH, Urine 6.0 5.0 - 8.0 pH LAB URINALYSIS - AUTOMATED METHOD 06/12/2024 3:41 AM [facility] Leukocytes, Urine Small(A) Negative LAB URINALYSIS - AUTOMATED METHOD 06/12/2024 3:41 AM [facility] Nitrite, Urine Negative Negative LAB URINALYSIS - AUTOMATED METHOD 06/12/2024 3:41 AM [facility] Protein, Urine Negative <=Trace mg/dL LAB URINALYSIS - AUTOMATED METHOD 06/12/2024 3:41 AM [facility] Glucose, Urine Negative Negative mg/dL LAB URINALYSIS - AUTOMATED METHOD 06/12/2024 3:41 AM [facility] Ketones, Urine Negative Negative mg/dL LAB URINALYSIS - AUTOMATED METHOD 06/12/2024 3:41 AM [facility] Urobilinogen, Urine 0.2 0.2 - 1.0 mg/dL LAB URINALYSIS - AUTOMATED METHOD 06/12/2024 3:41 AM [facility] Bilirubin, Urine Negative Negative LAB URINALYSIS - AUTOMATED METHOD 06/12/2024 3:41 AM [facility] Blood, Urine Large(A) Negative LAB URINALYSIS - AUTOMATED METHOD 06/12/2024 3:41 AM [facility] RBC, Urine 156.5(H) 0 - 4 /HPF LAB URINALYSIS - AUTOMATED METHOD 06/12/2024 3:41 AM [facility] WBC, Urine 16.6(H) 0 - 4 /HPF LAB URINALYSIS - AUTOMATED METHOD 06/12/2024 3:41 AM [facility] Squamous Epithelial, Urine 9 0 - 60 /LPF LAB URINALYSIS - AUTOMATED METHOD 06/12/2024 3:41 AM [facility] Bacteria, Urine Negative Negative /HPF LAB URINALYSIS - AUTOMATED METHOD 06/12/2024 3:41 AM [facility] Hyaline Casts, Urine 0.8 0 - 3 /LPF LAB URINALYSIS - AUTOMATED METHOD 06/12/2024 3:41 AM [facility] Urine Urine specimen obtained by clean catch procedure / Unknown Non-blood Collection / Unknown 06/12/2024 1:15 AM EST 06/12/2024 2:59 AM EST us Nayeli RAND LAB URINE ORDERABLES Final Resu lt [facility] [address] [place] [address], * (ABNORMAL) CBC auto differential (06/11/2024 11:14 PM EST) WBC 5.0 4.8 - 10.8 K/mcL LAB HEMETOLOGY METHOD 06/11/2024 11:55 PM [facility] RBC 3.60(L) 4.50 - 5.50 M/mcL LAB HEMETOLOGY METHOD 06/11/2024 11:55 PM [facility] Hemoglobin 12.5(L) 13.5 - 17.5 g/dL LAB HEMETOLOGY METHOD 06/11/2024 11:55 PM [facility] Hematocrit 38.0(L) 42.0 - 54.0 % LAB HEMETOLOGY METHOD 06/11/2024 11:55 PM [facility] MCV 107.0(H) 79.0 - 98.0 FL LAB HEMETOLOGY METHOD 06/11/2024 11:55 PM [facility] MCH 35.2(H) 27.0 - 32.0 pcg LAB HEMETOLOGY METHOD 06/11/2024 11:55 PM [facility] MCHC 32.9 32.0 - 37.0 g/dL LAB HEMETOLOGY METHOD 06/11/2024 11:55 PM [facility] RDW 17.5(H) 11.0 - 15.0 % LAB HEMETOLOGY METHOD 06/11/2024 11:55 PM [facility] Platelets 85(L) 130 - 400 K/mcL LAB HEMETOLOGY METHOD 06/11/2024 11:55 PM [facility] Comment:reviewed by slide MPV 10.4 7.0 - 11.0 FL LAB HEMETOLOGY METHOD 06/11/2024 11:55 PM [facility] NRBC 0.0 <1.0 % LAB HEMETOLOGY METHOD 06/11/2024 11:55 PM [facility] NRBC Absolute 0.00 <0.10 K/mcL LAB HEMETOLOGY METHOD 06/11/2024 11:55 PM [facility] Neutrophils Relative 93.8 % LAB HEMETOLOGY METHOD 06/11/2024 11:55 PM [facility] Lymphocytes Relative 4.4 % LAB HEMETOLOGY METHOD 06/11/2024 11:55 PM [facility] Monocytes Relative 1.4 % LAB HEMETOLOGY METHOD 06/11/2024 11:55 PM [facility] Eosinophils Relative 0.0 % LAB HEMETOLOGY METHOD 06/11/2024 11:55 PM EST [facility] Basophils Relative 0.2 % LAB HEMETOLOGY METHOD 06/11/2024 11:55 PM [facility] Immature Granulocytes Relative 0.2 % LAB HEMETOLOGY METHOD 06/11/2024 11:55 PM [facility] Neutrophils Absolute 4.65 1.50 - 7.00 K/mcL LAB HEMETOLOGY METHOD 06/11/2024 11:55 PM EST [facility] Lymphocytes Absolute 0.22(L) 1.00 - 5.00 K/mcL LAB HEMETOLOGY METHOD 06/11/2024 11:55 PM [facility] Monocytes Absolute 0.07(L) 0.20 - 1.00 K/mcL LAB HEMETOLOGY METHOD 06/11/2024 11:55 PM [facility] Eosinophils Absolute 0.00 0.00 - 0.50 K/mcL LAB HEMETOLOGY METHOD 06/11/2024 11:55 PM EST [facility] Basophils Absolute 0.01 0.00 - 0.20 K/mcL LAB HEMETOLOGY METHOD 06/11/2024 11:55 PM [facility] Immature Granulocytes Absolute 0.01 0.00 - 0.03 K/mcL LAB HEMETOLOGY METHOD 06/11/2024 11:55 PM [facility] Blood Venous blood specimen / Unknown Venipuncture / Unknown 06/11/2024 11:14 PM EST 06/11/2024 11:24 PM EST us Emily Singh DO LAB BLOOD ORDERABLES Berenice l Result [facility] [address] [place] [address], [place] [phone] * (ABNORMAL) Basic metabolic panel (06/11/2024 11:14 PM EST) Sodium 138 133 - 145 mmol/L LAB CHEMISTRY METHOD 06/12/2024 12:11 AM [facility] Potassium 4.4 3.5 - 5.5 mmol/L LAB CHEMISTRY METHOD 06/12/2024 12:11 AM [facility] Chloride 102 96 - 110 mmol/L LAB CHEMISTRY METHOD 06/12/2024 12:11 AM [facility] CO2 26 21 - 32 mmol/L LAB CHEMISTRY METHOD 06/12/2024 12:11 AM [facility] Anion Gap 10 3 - 11 LAB CHEMISTRY METHOD 06/12/2024 12:11 AM [facility] Glucose 139(H) 70 - 100 mg/dL LAB CHEMISTRY METHOD 06/12/2024 12:11 AM [facility] BUN 12 5 - 25 mg/dL LAB CHEMISTRY METHOD 06/12/2024 12:11 AM [facility] Creatinine 0.80 0.70 - 1.30 mg/dL LAB CHEMISTRY METHOD 06/12/2024 12:11 AM [facility] eGFR 98 >=60 mL/min/1. 73m2 LAB CHEMISTRY METHOD 06/12/2024 12:11 AM [facility] Comment:Calculation based on the??Chronic Kidney Disease Epidemiology Collaboration (CKD-EPI) equation refit??without adjustment for race. BUN/Creatinine Ratio 15.0 LAB CHEMISTRY METHOD 06/12/2024 12:11 AM [facility] Calcium 8.7 8.5 - 10.5 mg/dL LAB CHEMISTRY METHOD 06/12/2024 12:11 AM [facility] Blood Venous blood specimen / Unknown Venipuncture / Unknown 06/11/2024 11:14 PM EST 06/11/2024 11:24 PM EST us Emily Singh DO LAB BLOOD ORDERABLES Berenice l Result [facility] [address] [place] [address], documented in this encounter Visit Diagnoses Diagnosis [...] VIVIAN) documented in this encounter Care Teams Plastic Surgery Specialist Relationship Specialty Start Date End Date Dalia Harmon PA [address] [place] [address], [address] [place] [address] PCP - General 05/10/24 documented as of this encounter
--- OUTSIDE RECORDS SUMMARY | 2024-06-23 19:35 | XMS_ITS | Encounter Summary ---
Author Organization [facility] Address [id number] [place] [phone] Care Team Providers Care Fingernail Sculpturer Name Role Phone Dalia Harmon Primary Care Provider [phone] Encounter Details Date Type Department Care Team (Late st Contact Info) Description 03/04/[address] [facility] - Main Lab [address] [facility] [place] [address] Gerry Barksdale MD 8[address] [facility] 1 [place] [address] Vitamin D deficiency, unspecified; Type 2 diabetes [...] 11:20 AM EST Office Visit Gastroenterology - [place] [address] [facility] [address] [place] [address] Han Sloan DO 175 [facility] 200 [place] [address] 07/06/2024 1:00 PM EDT Appointment [facility] Interventional Radiology [address] [place] [phone] 08/12/2024 10:30 AM EDT Ancillary Procedure [facility] - [address] [place] [phone] documented as of this encounter Procedures Procedure [...] D 25 hydroxy (03/04/2024 9:21 AM EST) [facility] Vit D, 25-Hydroxy 33.8 30.0 - 80.0 ng/mL LAB CHEMISTRY METHOD 03/04/2024 12:40 PM EST [facility] Blood Venous blood specimen / Unknown Venipuncture / Unknown 03/04/2024 9:21 AM EST 03/04/2024 11:40 AM EST us Gerry Barksdale MD LAB BLOOD ORDERABLES Final Re sult Performing Organization Address [facility]/ZIP Co de Phone Number [facility] [address] [place] [address], [place] [phone] * Hemoglobin A1c (03/04/2024 9:21 AM EST) [facility] Hemoglobin A1C 4.7 <6.5 % LAB CHEMISTRY METHOD 03/04/2024 2:46 PM [facility] Mean Bld Glu Estim. 88 mg/dL LAB CHEMISTRY METHOD 03/04/2024 2:46 PM [facility] Blood Venous blood specimen / Unknown Venipuncture / Unknown 03/04/2024 9:21 AM EST 03/04/2024 11:40 AM EST us Gerry Barksdale MD LAB BLOOD ORDERABLES Final Re sult Performing Organization Address [facility]/ZIP Co de Phone Number [facility] [address] [place] [address], [place] [phone] * (ABNORMAL) Vitamin B12 (03/04/2024 9:21 AM EST) [facility] Vitamin B-12 923(H) 250 - 900 pcg/mL LAB CHEMISTRY METHOD 03/04/2024 1:03 PM EST [facility] Blood Venous blood specimen / Unknown Venipuncture / Unknown 03/04/2024 9:21 AM EST 03/04/2024 11:40 AM EST us Gerry Barksdale MD LAB BLOOD ORDERABLES Final Re sult Performing Organization Address [facility]/ZIP Co de Phone Number [facility] [address] [place] [address], [place] [phone] * Folate (03/04/2024 9:21 AM EST) Pathologist [facility] Folate 11.0 2.8 - 17.0 ng/ml LAB CHEMISTRY METHOD 03/04/2024 1:03 PM EST [facility] Blood Venous blood specimen / Unknown Venipuncture / Unknown 03/04/2024 9:21 AM EST 03/04/2024 11:40 AM EST us Gerry Barksdale MD LAB BLOOD ORDERABLES Final Re sult Performing Organization Address [facility] de Phone Number [facility] [address] [place] [address], * Thyroid stimulating hormone (03/04/2024 9:21 AM EST) Pathologist [facility] TSH 3.12 0.40 - 4.00 mcIU/mL LAB CHEMISTRY METHOD 03/04/2024 12:40 PM EST [facility] Blood Venous blood specimen / Unknown Venipuncture / Unknown 03/04/2024 9:21 AM EST 03/04/2024 11:40 AM EST us Gerry Barksdale MD LAB BLOOD ORDERABLES Final Re sult Performing Organization Address City/[facility]/ZIP Co de Phone Number [facility] [address] [place] [address], [place] [phone] * (ABNORMAL) Comprehensive metabolic panel (03/04/2024 9:21 AM EST) Pathologist [facility] Sodium 137 133 - 145 mmol/L LAB CHEMISTRY METHOD 03/04/2024 1:03 PM EST [facility] Potassium 4.2 3.5 - 5.5 mmol/L LAB CHEMISTRY METHOD 03/04/2024 1:03 PM [facility] Chloride 100 96 - 110 mmol/L LAB CHEMISTRY METHOD 03/04/2024 1:03 PM [facility] CO2 29 21 - 32 mmol/L LAB CHEMISTRY METHOD 03/04/2024 1:03 PM [facility] Anion Gap 8 3 - 11 LAB CHEMISTRY METHOD 03/04/2024 1:03 PM [facility] Glucose 217(H) 70 - 100 mg/dL LAB CHEMISTRY METHOD 03/04/2024 1:03 PM [facility] BUN 18 5 - 25 mg/dL LAB CHEMISTRY METHOD 03/04/2024 1:03 PM [facility] Creatinine 0.64(L) 0.70 - 1.30 mg/dL LAB CHEMISTRY METHOD 03/04/2024 1:03 PM [facility] eGFR 104 >=60 mL/min/1. 73m2 LAB CHEMISTRY METHOD 03/04/2024 1:03 PM [facility] Comment:Calculation based on the??Chronic Kidney Disease Epidemiology Collaboration (CKD-EPI) equation refit??without adjustment for race. BUN/Creatinine Ratio 28.1 LAB CHEMISTRY METHOD 03/04/2024 1:03 PM [facility] Calcium 8.5 8.5 - 10.5 mg/dL LAB CHEMISTRY METHOD 03/04/2024 1:03 PM [facility] AST (SGOT) 38 10 - 42 unit/L LAB CHEMISTRY METHOD 03/04/2024 1:03 PM [facility] ALT (SGPT) 25 10 - 60 unit/L LAB CHEMISTRY METHOD 03/04/2024 1:03 PM [facility] Alkaline Phosphatase 136(H) 42 - 121 unit/L LAB CHEMISTRY METHOD 03/04/2024 1:03 PM [facility] Total Protein 5.7(L) 6.0 - 8.0 g/dL LAB CHEMISTRY METHOD 03/04/2024 1:03 PM [facility] Albumin 2.6(L) 3.2 - 5.0 g/dL LAB CHEMISTRY METHOD 03/04/2024 1:03 PM [facility] Total Bilirubin 2.8(H) 0.0 - 1.4 mg/dL LAB CHEMISTRY METHOD 03/04/2024 1:03 PM [facility] Blood Venous blood specimen / Unknown Venipuncture / Unknown 03/04/2024 9:21 AM EST 03/04/2024 11:40 AM EST us Gerry Barksdale MD LAB BLOOD ORDERABLES Final Re sult [facility] [address] [place] [address], * (ABNORMAL) Complete blood count (03/04/2024 9:21 AM EST) WBC 4.5(L) 4.8 - 10.8 K/mcL LAB HEMETOLOGY METHOD 03/04/2024 11:58 AM [facility] RBC 3.90(L) 4.50 - 5.50 M/mcL LAB HEMETOLOGY METHOD 03/04/2024 11:58 AM [facility] Hemoglobin 13.6 13.5 - 17.5 g/dL LAB HEMETOLOGY METHOD 03/04/2024 11:58 AM [facility] Hematocrit 40.7(L) 42.0 - 54.0 % LAB HEMETOLOGY METHOD 03/04/2024 11:58 AM [facility] MCV 104.4(H) 79.0 - 98.0 FL LAB HEMETOLOGY METHOD 03/04/2024 11:58 AM [facility] MCH 34.9(H) 27.0 - 32.0 pcg LAB HEMETOLOGY METHOD 03/04/2024 11:58 AM EST [facility] MCHC 33.4 32.0 - 37.0 g/dL LAB HEMETOLOGY METHOD 03/04/2024 11:58 AM [facility] RDW 14.3 11.0 - 15.0 % LAB HEMETOLOGY METHOD 03/04/2024 11:58 AM [facility] Platelets 101(L) 130 - 400 K/mcL LAB HEMETOLOGY METHOD 03/04/2024 11:58 AM [facility] MPV 11.0 7.0 - 11.0 FL LAB HEMETOLOGY METHOD 03/04/2024 11:58 AM [facility] NRBC 0.0 <1.0 % LAB HEMETOLOGY METHOD 03/04/2024 11:58 AM [facility] NRBC Absolute 0.00 <0.10 K/mcL LAB HEMETOLOGY METHOD 03/04/2024 11:58 AM [facility] Blood Venous blood specimen / Unknown Venipuncture / Unknown 03/04/2024 9:21 AM EST 03/04/2024 11:40 AM EST us Gerry Barksdale MD LAB BLOOD ORDERABLES Final Re sult [facility] [address] [place] [address], documented in this encounter Visit Diagnoses Diagnosis Vitamin D deficiency, unspecified Type 2 diabetes mellitus without complications (CMS/HCC) Essential (primary) hypertension Unspecified essential hypertension documented in this encounter Care Teams Fingernail Sculpturer Relationship Specialty Start Date End Date Dalia Harmon PA [address] [place] [address] Drive, [address] [place] [address] PCP - General 05/10/24 documented as of this encounter
--- OUTSIDE RECORDS SUMMARY | 2024-06-23 19:35 | XMS_ITS | Encounter Summary ---
Author Organization [facility] Address [address] [place] [phone] Care Team Providers Care Employment Security Officer Name Role Phone Dalia Harmon Primary Care Provider [phone] Reason for Visit * Reason Onset Date Comments TESTING 06/03/2024 Encounter Details Date Type Department Care Team (Late st Contact Info) Description 06/03/2024 Telephone Gastroenterology - [place] [address] [place] [address] Han Sloan DO [address] [place] [address] TESTING Social History Tobacco Use Types Packs/Day [...] 11:20 AM EST Office Visit Gastroenterology - [place] [facility] 175 [facility] [address] [place] [phone] Han Sloan DO [address] [facility] [address] [place] [address] 07/06/2024 1:00 PM EDT Appointment [facility] Interventional Radiology [address] [place] [phone] 08/12/2024 10:30 AM EDT Ancillary Procedure [facility] - [address] [place] [phone] documented as of this encounter Visit Diagnoses Not on filedocumented in this encounter Care Teams Employment Security Officer Relationship Specialty Start Date End Date Dalia Harmon PA [address] [facility], [address] [place] [address] PCP - General 05/10/24 documented as of this encounter
--- OUTSIDE RECORDS SUMMARY | 2024-06-23 19:35 | XMS_ITS | Clinical Summary ---
Author Organization [facility] Address [address] [place] [address] Care Team Providers Care Bill Cutter Name Role Phone Dago Ferro MD Primary Care Provider [phone] Allergies No known active allergies Medications Medication [...] age to complete this topic Care Teams Bill Cutter Relationship Specialty Start Date End Date Dago Ferro MD PCP - General Internal Medicine 03/23/19
--- OUTSIDE RECORDS SUMMARY | 2024-06-23 19:35 | XMS_ITS | Encounter Summary ---
Author Organization [facility] Address [address] [place] [phone] Care Team Providers Care Water Commissioner Name Role Phone Dalia Harmon Primary Care Provider [phone] Encounter Details Date Type Department Care Team (Late st Contact Info) Description 03/05/2024 Lab Requisition [facility] - Main Lab [address] [facility] [place] [address] Gerry Barksdale MD 819 [facility] 1 [place] [address] Essential (primary) hypertension Social History Tobacco Use [...] 11:20 AM EST Office Visit Gastroenterology - [place] [address] [facility] [address] [place] [address] Han Sloan DO 175 [facility] 200 [place], [place] [phone] 07/06/2024 1:00 PM EDT Appointment [facility] Interventional Radiology [address] [place] [phone] 08/12/2024 10:30 AM EDT Ancillary Procedure [facility] - [address] [place] [phone] documented as of this encounter Procedures Procedure Name Priority Date/Time Associated Diagnosis Comments COMPLETE BLOOD COUNT Routine 03/08/2024 9:48 AM EST Essential (primary) hypertension BASIC METABOLIC PANEL Routine 03/08/2024 9:48 AM EST Essential (primary) hypertension documented in this encounter Results * (ABNORMAL) Basic metabolic panel (03/08/2024 9:48 AM EST) Sodium 138 133 - 145 mmol/L LAB CHEMISTRY METHOD 03/08/2024 1:23 PM [facility] Potassium 4.2 3.5 - 5.5 mmol/L LAB CHEMISTRY METHOD 03/08/2024 1:23 PM [facility] Chloride 102 96 - 110 mmol/L LAB CHEMISTRY METHOD 03/08/2024 1:23 PM [facility] CO2 26 21 - 32 mmol/L LAB CHEMISTRY METHOD 03/08/2024 1:23 PM [facility] Anion Gap 10 3 - 11 LAB CHEMISTRY METHOD 03/08/2024 1:23 PM [facility] Glucose 186(H) 70 - 100 mg/dL LAB CHEMISTRY METHOD 03/08/2024 1:23 PM [facility] BUN 14 5 - 25 mg/dL LAB CHEMISTRY METHOD 03/08/2024 1:23 PM [facility] Creatinine 0.76 0.70 - 1.30 mg/dL LAB CHEMISTRY METHOD 03/08/2024 1:23 PM [facility] eGFR 99 >=60 mL/min/1. 73m2 LAB CHEMISTRY METHOD 03/08/2024 1:[address] [facility] Comment:Calculation based on the??Chronic Kidney Disease Epidemiology Collaboration (CKD-EPI) equation refit??without adjustment for race. BUN/Creatinine Ratio 18.4 LAB CHEMISTRY METHOD 03/08/2024 1:[address] [facility] Calcium 8.7 8.5 - 10.5 mg/dL LAB CHEMISTRY METHOD 03/08/2024 1:23 PM [facility] Blood Venous blood specimen / Unknown Venipuncture / Unknown 03/08/2024 9:48 AM EST 03/08/2024 11:22 AM EST Gerry Barksdale MD LAB BLOOD ORDERABLES Final Re sult [facility] [address] [place] [address], * (ABNORMAL) Complete blood count (03/08/2024 9:48 AM EST) WBC 4.6(L) 4.8 - 10.8 K/mcL LAB HEMETOLOGY METHOD 03/08/2024 12:55 PM [facility] RBC 4.20(L) 4.50 - 5.50 M/mcL LAB HEMETOLOGY METHOD 03/08/2024 12:55 PM [facility] Hemoglobin 14.5 13.5 - 17.5 g/dL LAB HEMETOLOGY METHOD 03/08/2024 12:55 PM [facility] Hematocrit 44.1 42.0 - 54.0 % LAB HEMETOLOGY METHOD 03/08/2024 12:55 PM [facility] MCV 105.3(H) 79.0 - 98.0 FL LAB HEMETOLOGY METHOD 03/08/2024 12:55 PM [facility] MCH 34.6(H) 27.0 - 32.0 pcg LAB HEMETOLOGY METHOD 03/08/2024 12:[address] [facility] MCHC 32.9 32.0 - 37.0 g/dL LAB HEMETOLOGY METHOD 03/08/2024 12:55 PM [facility] RDW 14.7 11.0 - 15.0 % LAB HEMETOLOGY METHOD 03/08/2024 12:[address] [facility] Platelets 102(L) 130 - 400 K/mcL LAB HEMETOLOGY METHOD 03/08/2024 12:55 PM [facility] MPV 11.3(H) 7.0 - 11.0 FL LAB HEMETOLOGY METHOD 03/08/2024 12:55 PM [facility] NRBC 0.0 <1.0 % LAB HEMETOLOGY METHOD 03/08/2024 12:55 PM [facility] NRBC Absolute 0.00 <0.10 K/mcL LAB HEMETOLOGY METHOD 03/08/2024 12:55 PM [facility] Blood Venous blood specimen / Unknown Venipuncture / Unknown 03/08/2024 9:48 AM EST 03/08/2024 11:22 AM EST us Gerry Barksdale MD LAB BLOOD ORDERABLES Final Re sult [facility] [address] [place] [address], documented in this encounter Visit Diagnoses Diagnosis Essential (primary) hypertension Unspecified essential hypertension documented in this encounter Care Teams Water Commissioner Relationship Specialty Start Date End Date Dalia Harmon PA [address] [place] [address], [address] [place] [address] PCP - General 05/10/24 documented as of this encounter
--- OUTSIDE RECORDS SUMMARY | 2024-06-23 19:35 | XMS_ITS | Encounter Summary ---
Author Organization [facility] Address [id number] [place] [phone] Care Team Providers Care Admitting Officer Name Role Phone Dalia Harmon Primary Care Provider [phone] Reason for Visit * Reason Comments Male [...] To Contact Diagnoses Severe sepsis (CMS/HCC) Procedures [facility] IP/OBS CARE INITIAL MODERATE LEVEL PER DAY . Rosaura Iglesias MD [address] [place] [id number] Phone: tel: fax: [facility] [address] [place] [address] Phone: tel: Referral ID Status Reason Start Date Expiration Date Visits Re quested Visits Authorized [id number] 1 1 Encounter Details Date Type Department Care Team (Latest Contact Info) Description 05/19/2024 3:40 PM EST - 05/25/2024 4:38 PM EST Hospital Encounter [facility] [address] [place] [address] Emily Singh DO [address] [place] [address] Rosaura Iglesias MD [address] [place] [address] Jose Cruz Cordon MD [address] [place] [address] Laing Reinoso MD [address] [place] [address] Bilateral leg edema (Primary Dx); Urinary tract infection without hematuria, site unspecified; Hepatic cirrhosis, unspecified hepatic cirrhosis type, unspecified whether ascites present (CMS/HCC); Cellulitis of left leg; Severe sepsis (CMS/HCC) Discharge Disposition: Longterm Facility Social History Tobacco Use Types Packs/Day [...] will be transferred to the care of [facility] staff for further management of their sepsis, [...] 40 mg every 6 hours. -Seen by honing machine operator; plan for discharge on increased dose of Lasix and spironolactone. Increase the Lasix from 40 mg to 60 mg daily. Increase the dose of spironolactone from 100 to 150 mg daily DVT-lower extremity venous duplex showed nonocclusive thrombus in right common femoral vein. Currently on full dose Lovenox and ultimately plan for Eliquis on discharge. On discharge plan for [id number] mg twice daily for 7 days followed [...] Signed Date: 05/20/2024 08:06 ET Workstation ID: [id number] Transcribed By: Self Edit Transcribed Date: 05/20/2024 [...] Disposition Code Departure Means Destination Comment s Longterm Facility Ambulance Ski lled Nursing, Intermediate Care, [...] the transport expected? 1630 Final Discharge Disposition Longterm Facility Pt medically cleared for discharge. [facility]po is [facility] per pt choice. Ambulance booked for 4PM. Pt has notified both his sister and TOOL PROCUREMENT COORDINATOR of plan for transfer this afternoon. * [...] PIETRO: 05/25 Barrier: insurance auth pending Plan: [facility] * Liang Reinoso MD - 05/24/2024 2:32 PM EST Images from the original note were not included. MACON PROGRESS NOTE Date: 05/24/2024 Author: Liang Reinoso MD Patient ID: Jonny Gordon is a 64 y.o. male : 1960 MR#: [id number] SUBJECTIVE Subjective Patient seen and examined bedside this morning. Reports improvement in breathing. Denies any chest pain shortness of breath nausea vomiting palpitation. He was again on CPAP mask when I saw him. Discussed the case with patient's sister present bedside in detail. Patient interested in going to rehab; currently case therapist working on placement Objective Allergy- Codeine, Nystatin, [...] Elda Nazario - 05/24/2024 12:18 PM EST [facility] Physical Therapy Evaluation & Treatment PT Discharge Recommendations: half-way facility placement Staff Recommendations for safe patient [...] is a 64 y.o. male admitted to [facility] on 05/19/2024. Patient Active Problem List [...] COLONOSCOPY N/A PROCEDURE: HISTORICAL COLONOSCOPY ESOPHAGOGASTRODUODENOSCOPY PROCEDURE: WI ESOPHAGOGASTRODUODENOSCOPY TRANSORAL DIAGNOSTIC OTHER SURGICAL HISTORY Right PROCEDURE: WI STAB [...] of Steps: 1 Prior Function Level of Mills: Independent with mobility and functional transfers Ambulation Status: Household ambulator Receives Help From: evs attendant (40HRS/WK) Indoor Mobility Assistance: Needed Some [...] of Steps 1 Prior Function Level of [place] Independent with mobility and functional transfers Ambulation Status Household ambulator Receives Help From evs attendant (40HRS/WK) Indoor Mobility Assistance Needed Some [...] of needing rehab -) PT Discharge Recommendations half-way facility placement PT - Evaluation Status Complete [...] is a 64 y.o. male admitted to [facility] on 05/19/2024 for Bilateral leg edema [...] listed above and optimize function. PT recommends half-way facility placement when medically stable for safe [...] a 64 y.o. male : 1960 MR#: [id number] SUBJECTIVE Subjective Patient seen and examined bedside [...] from the original note were not included. [facility] PROGRESS NOTE Date: 05/22/2024 Author: Jose Cruz Cordon MD Patient ID: Jonny Gordon is a 64 y.o. male : 1960 MR#: [id number] SUBJECTIVE Subjective Lasix drip Allergies Codeine, Nystatin, [...] Signed Date: 05/21/2024 09:23 ET Workstation ID: [id number] Transcribed By: Self Edit Transcribed Date: 05/21/2024 [...] placing orders. This dictation was performed using Wego speech recognition software. Word substitution may have occurred and may have gone unnoticed and uncorrected If you have questions, please do not hesitate to call our hospital at [phone] * Jose Cruz Cordon MD - 05/22/2024 4:35 PM EST [facility] Provider Response Note PATIENT: JONNY GORDON : 1960 ADMIT DATE: 05/19/2024 5:44 PM DISCH DATE: RESPONDING PROVIDER #: [id number] PROVIDER RESPONSE TEXT: The two conditions are [...] PM EST CM 05/22 PIETRO: 05/24 Plan: [facility] auth pend Barrier: IV lasix, auth IV abx to 06/01, active with [facility] and TOOL PROCUREMENT COORDINATOR through [employer]. * Nickie David RD - [...] onward) Start Ordered 05/19/24 1745 Adult diet [facility]; General; Regular Diet effective now Question Answer Comment Location [facility] Diet Type (req) General General Diet Regular 05/19/24 1741 History of presenting illness: Patient is a [...] COLONOSCOPY N/A PROCEDURE: HISTORICAL COLONOSCOPY ESOPHAGOGASTRODUODENOSCOPY PROCEDURE: WI ESOPHAGOGASTRODUODENOSCOPY TRANSORAL DIAGNOSTIC OTHER SURGICAL HISTORY Right PROCEDURE: WI STAB PHLEBT VARICOSE VEINS 1 XTR > 20 INCS admitted 05/19/2024 with Severe sepsis (CMS/HCC). 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 reports no food allergies. Self-selected diet(s) followed: Pt reports he limits salt and sugar, reduced his portions and does not take a vitaminn with Fe (had been on multivitamin for years, stopped per GI doctor). Appetite NURSING ASSISTANT: Good Intake NURSING ASSISTANT: Stable Vitamins/Minerals/Herbs: stopped taking multivitamin per GI doctor Consuming 80%-90% of usual prior to admission. Family and TOOL PROCUREMENT COORDINATOR assist at home. Weight History: Wt Readings [...] of Patient Care: Discussed with provider(s) via BodBot Secure Chat/Haiku. Monitoring/Evaluation: Energy Intake, Protein Intake, [...] Diagnosis Date Noted Date Diagnosed Severe sepsis ([facility]) 05/19/2024 Candidal intertrigo 03/01/2024 Anasarca 02/26/2024 Lymphedema 08/01/2022 Thrombocytopenia ([facility]) 08/01/2022 COPD (chronic obstructive pulmonary disease) ([facility]) 08/01/2022 Avascular necrosis of bone of hip, left ([facility]) 06/25/2022 Insomnia 04/13/2018 Chronic allergic conjunctivitis 04/13/2018 Anxiety 04/13/2018 Esophageal varices ([facility]) 12/03/2017 Hemochromatosis 12/03/2017 Liver cirrhosis secondary to CASTANEDA (nonalcoholic steatohepatitis) ([facility]) 12/03/2017 Erosive gastritis 10/13/2017 Obstructive sleep apnea 05/21/2016 Hypertension 12/14/2014 Hyperlipidemia 12/12/2014 Diabetes mellitus type 2 with neurological manifestations ([facility]) 12/12/2014 Depression with anxiety 12/12/2014 Benign colonic [...] Image 05/21/24 1152 Wound Bed Tissue Assessment Pale;[place] 05/21/24 1152 Ingrid-Wound Assessment Unable to assess [...] Image 05/21/24 1153 Wound Bed Tissue Assessment Pale;[place] 05/21/24 1153 Ingrid-Wound Assessment Unable to assess [...] Image 05/21/24 1127 Wound Bed Tissue Assessment [place] 05/21/24 1127 Ingrid-Wound Assessment Moist 05/21/24 1127 [...] Image 05/21/24 1134 Wound Bed Tissue Assessment [place];Dry 05/21/24 1134 Wound Length (cm) 5.5 cm [...] Initial Referral and Visit, Referral , and Chaplaincy Rounding Reason for Visit: Spiritual/Emotional Support Time Spent: 20 Minutes Location: [address] [place] [address] Sacramental Encounters: 0 Spiritual Distress Assessment: 0 [...] usually? Transcendence Do you have a particular mandaeism, moose, or spirituality? Is your mandaeism/spirituality/moose challenged by what is happening to you [...] a 64 y.o. male : 1960 MR#: [id number] SUBJECTIVE Subjective Chart and EMR reviewed overnight [...] entry with no wheezing at this time, VEHICLE TECHNICIAN the patient is awake and alert and [...] Signed Date: 05/20/2024 08:06 ET Workstation ID: [id number] Transcribed By: Self Edit Transcribed Date: 05/20/2024 [...] placing orders. This dictation was performed using Wego speech recognition software. Word substitution may have occurred and may have gone unnoticed and uncorrected If you have questions, please do not hesitate to call our hospital at [phone] * Amy Coughlin PharmD - 05/21/2024 4:00 [...] a 64 y.o. male : 1960 MR#: [id number] SUBJECTIVE Subjective Chart and EMR reviewed overnight [...] entry with no wheezing at this time, VEHICLE TECHNICIAN the patient is awake and alert and [...] Signed Date: 05/20/2024 08:06 ET Workstation ID: [id number] Transcribed By: Self Edit Transcribed Date: 05/20/2024 [...] placing orders. This dictation was performed using Wego speech recognition software. Word substitution may have occurred and may have gone unnoticed and uncorrected If you have questions, please do not hesitate to call our hospital at [phone] * Addie Hernandez RN - 05/20/2024 4:03 PM EST 05/20/24 1601 Initial Transition Plan Initial Transition Plan Longterm Facility Discharge Planning Living Arrangements Alone Type of Residence Private residence Assistive Devices Eyeglasses;Wheelchair;Shower chair;Walker;Other (Comment) (Stair Lift, C-Pap) Support Systems Other (Comment) Medication Coverage Has Med Coverage Under Insurance Plan Yes Medication Affordability No concerns related to payment for meds Anticipated Discharge Needs Discipline following for SNF placement Enrolled Nurse Informed Choice Informed Choice Given? Yes ICC met with patient at bedside. Patient lives alone, owns a walker, wheelchair, stair lift, Lifting recliner chair. He uses a CPAP and owns a nebulizer. 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 He states he is active with [facility]. ICC talked about the possibility of going to [facility] once he is medically stable. Patient is in agreement. States he has been to [facility] in the past and was very happy [...] infectious concerns): [] Yes / [x] No Collection Team Lead: [] Yes / [x] No If YES, Cardiac Rhythm: [] NSR, [] SB, [] ST, [] A-FIB, [] A-Flutter, [] Pacemaker, [] 1st Degree HB, [] 2nd Degree HB, [] 3rd Degree HB Reason for Collection Team Lead: VS: Visit Vitals BP 117/64 Pulse 103 [...] by and Phone Extension: Mirta Menon RN [id number] * Joan Beckford RN - 05/19/2024 3:48 [...] is still living at home with his TOOL PROCUREMENT COORDINATOR. Patient states the visiting nurse instructed him [...] COLONOSCOPY N/A PROCEDURE: HISTORICAL COLONOSCOPY ESOPHAGOGASTRODUODENOSCOPY PROCEDURE: WI ESOPHAGOGASTRODUODENOSCOPY TRANSORAL DIAGNOSTIC OTHER SURGICAL HISTORY Right PROCEDURE: WI STAB [...] REFLEX MICROSCOPIC AND CULTURE - Abnormal [place] Urine 1.033 (*) pH, Urine 7.5 Leukocytes, [...] Procedure Abnormality Status --------- ------ CBC auto differential[[id number]] Abnormal Final result Please view results for these tests on the individual orders. URINALYSIS WITH REFLEX MICROSCOPIC AND CULTURE Narrative: The following orders were created for panel order Urinalysis with reflex microscopic and culture. Procedure Abnormality Status --------- ------ Urinalysis with reflex ...[[id number]] Abnormal Final result Pugh urine culture tube[[id number]] In process Please view results for these [...] Abnormal; Notable for the following components: [place] Urine 1.033 (*) Leukocytes, Urine Moderate (*) [...] PHYSICAL Please contact author [GIORGI Giordano] via BodBot/Zauber. Patient: Jonny Gordon Admission Date/Time: 05/19/2024 3:40 [...] will be transferred to the care of [facility] staff for further management of their sepsis, [...] N/A PROCEDURE: HISTORICAL COLONOSCOPY ??? ESOPHAGOGASTRODUODENOSCOPY PROCEDURE: WI ESOPHAGOGASTRODUODENOSCOPY TRANSORAL DIAGNOSTIC ??? OTHER SURGICAL HISTORY Right PROCEDURE: WI STAB [...] or rebound tenderness appreciated. Bowel sounds normoactive. CYLINDER GRINDER/: Alex in place with a small amount [...] onward) Start Ordered 05/19/24 1745 Adult diet [facility]; General; Regular Diet effective now Question Answer Comment Location [facility] Diet Type (req) General General Diet Regular 05/19/24 1744 [x] Lines, tubes, drains: IV access [x] Medication reconciliation Health Care proxy with Phone number Emergency contact listed as Elinor [phone] Cosigned by Rosaura Iglesias MD at 05/23/2024 [...] 64-year-old male who is following up at [facility] but establishing care with me for the [...] months ago. He is currently hospitalized at [facility] for sepsis secondary to UTI and [...] COLONOSCOPY N/A PROCEDURE: HISTORICAL COLONOSCOPY ESOPHAGOGASTRODUODENOSCOPY PROCEDURE: WI ESOPHAGOGASTRODUODENOSCOPY TRANSORAL DIAGNOSTIC OTHER SURGICAL HISTORY Right PROCEDURE: WI STAB [...] count Basic metabolic panel Magnesium Adult diet [facility]; Cardiac, Fluid Restriction; Fluid Restriction 1800 mL;Sodium [...] and Internal Medicine Gastroenterology and Hepatology Practice [facility] [email or web address] [phone] [place] [address] [address] [place] [address] [email or web address] * Diogenes Bertrand MD - 05/21/2024 4:45 [...] with his primary urologist: Dr. Howard with [facility] urology Diogenes Bertrand MD [facility] [phone] Subjective CC: Patient Active Problem List Diagnosis [...] UTI -- Primary urologist: Dr. Howard at [facility] Patient with cirrhosis with ascites due to hemochromatosis requiring periodic paracentesis Indwelling Alex catheter since February 2024 when he was admitted with worsening edema and ascitesand catheter placed for retention -- Takes Flomax 0.4 mg twice daily normally -- Indwelling catheter has been managed by Dr. Howard at [place] [facility] urine hematuria and several days ago [...] COLONOSCOPY N/A PROCEDURE: HISTORICAL COLONOSCOPY ESOPHAGOGASTRODUODENOSCOPY PROCEDURE: WI ESOPHAGOGASTRODUODENOSCOPY TRANSORAL DIAGNOSTIC OTHER SURGICAL HISTORY Right PROCEDURE: WI STAB [...] No crepitus but somewhat diffusely tender. 16 [place] Alex catheter with cloudy debris in urine. [...] Signed Date: 05/13/2024 07:37 ET Workstation ID: [id number] Transcribed By: Self Edit Transcribed Date: 05/13/2024 [...] states that he goes to urologist in [place], he has not been told how long [...] COLONOSCOPY N/A PROCEDURE: HISTORICAL COLONOSCOPY ESOPHAGOGASTRODUODENOSCOPY PROCEDURE: WI ESOPHAGOGASTRODUODENOSCOPY TRANSORAL DIAGNOSTIC OTHER SURGICAL HISTORY Right PROCEDURE: WI STAB [...] Interval 05/19/2024 360 QTc 05/19/2024 484 R [place] 05/19/2024 - T [place] 05/19/2024 20 ECG Interpretation 05/19/2024 Value:Sinus tachycardia Left axis deviation Right bundle branch block Abnormal ECG When compared with ECG of 19-MAY-2024 16:22, (unconfirmed) No significant change was found Confirmed by Fabian JOSEPH YUFENG ([id number]) on 05/20/2024 6:05:19 PM Ventricular Rate ECG 05/19/2024 108 Atrial Rate 05/19/2024 113 QRS Duration 05/19/2024 132 Q-T Interval 05/19/2024 368 QTc 05/19/2024 493 R [place] 05/19/2024 - T [place] 05/19/2024 34 ECG Interpretation 05/19/2024 Value:Sinus rhythm [...] Immature Granulocytes Ab* 05/19/2024 0.21 (H) [place] Urine 05/19/2024 1.033 (H) pH, Urine 05/19/2024 [...] Signed Date: 05/21/2024 09:23 ET Workstation ID: [id number] Transcribed By: Self Edit Transcribed Date: 05/21/2024 [...] states that he goes to urologist in [place], he has not been told how long [...] to assist in dosage, level today 16.4, [facility] Wound care seeing patient, should [...] leaking and needing replacement if needs [facility] group home Recommendations: Continue Vanc goal 10-15, switch Zosyn [...] 11:20 AM EST Office Visit Gastroenterology - [place] [address] [place] [phone] [address] [place] [address] 07/06/2024 1:00 PM EDT Appointment [facility] Interventional Radiology [address] [place] [phone] 08/12/2024 10:30 AM EDT Ancillary Procedure [facility] - [address] [place] [phone] documented as of this encounter Procedures Procedure [...] LAB CHEMISTRY METHOD 05/25/2024 7:15 AM EST [facility] Blood Venous blood specimen / Unknown Venipuncture / Unknown 05/25/2024 5:32 AM EST 05/25/2024 6:27 AM EST Liang Reinoso MD LAB BLOOD ORDERABLE S Final Result [facility] [address] [place] [address], * (ABNORMAL) Basic metabolic panel (05/25/2024 5:32 AM EST) Sodium 134 133 - 145 mmol/L LAB CHEMISTRY METHOD 05/25/2024 7:15 AM [facility] Potassium 3.6 3.5 - 5.5 mmol/L LAB CHEMISTRY METHOD 05/25/2024 7:15 AM [facility] Chloride 94(L) 96 - 110 mmol/L LAB CHEMISTRY METHOD 05/25/2024 7:15 AM [facility] CO2 33(H) 21 - 32 mmol/L LAB CHEMISTRY METHOD 05/25/2024 7:15 AM [facility] Anion Gap 7 3 - 11 LAB CHEMISTRY METHOD 05/25/2024 7:15 AM [facility] Glucose 123(H) 70 - 100 mg/dL LAB CHEMISTRY METHOD 05/25/2024 7:15 AM [facility] BUN 13 5 - 25 mg/dL LAB CHEMISTRY METHOD 05/25/2024 7:15 AM [facility] Creatinine 0.57(L) 0.70 - 1.30 mg/dL LAB CHEMISTRY METHOD 05/25/2024 7:15 AM [facility] eGFR 108 >=60 mL/min/1. 73m2 LAB CHEMISTRY METHOD 05/25/2024 7:15 AM [facility] Comment:Calculation based on the??Chronic Kidney Disease Epidemiology Collaboration (CKD-EPI) equation refit??without adjustment for race. BUN/Creatinine Ratio 22.8 LAB CHEMISTRY METHOD 05/25/2024 7:15 AM [facility] Calcium 8.1(L) 8.5 - 10.5 mg/dL LAB CHEMISTRY METHOD 05/25/2024 7:15 AM [facility] Blood Venous blood specimen / Unknown Venipuncture / Unknown 05/25/2024 5:32 AM EST 05/25/2024 6:27 AM EST Liang Reinoso MD LAB BLOOD ORDERABLE S Final Result [facility] [address] [place] [address], [place] [phone] * (ABNORMAL) Complete blood count (05/25/2024 5:32 AM EST) WBC 6.8 4.8 - 10.8 K/mcL LAB HEMETOLOGY METHOD 05/25/2024 6:50 AM [facility] RBC 3.40(L) 4.50 - 5.50 M/mcL LAB HEMETOLOGY METHOD 05/25/2024 6:50 AM [facility] Hemoglobin 11.6(L) 13.5 - 17.5 g/dL LAB HEMETOLOGY METHOD 05/25/2024 6:50 AM [facility] Hematocrit 34.7(L) 42.0 - 54.0 % LAB HEMETOLOGY METHOD 05/25/2024 6:50 AM [facility] MCV 100.9(H) 79.0 - 98.0 FL LAB HEMETOLOGY METHOD 05/25/2024 6:50 AM [facility] MCH 33.7(H) 27.0 - 32.0 pcg LAB HEMETOLOGY METHOD 05/25/2024 6:50 AM [facility] MCHC 33.4 32.0 - 37.0 g/dL LAB HEMETOLOGY METHOD 05/25/2024 6:50 AM EST [facility] RDW 15.9(H) 11.0 - 15.0 % LAB HEMETOLOGY METHOD 05/25/2024 6:50 AM EST [facility] Platelets 129(L) 130 - 400 K/mcL LAB HEMETOLOGY METHOD 05/25/2024 6:50 AM EST [facility] MPV 10.4 7.0 - 11.0 FL LAB HEMETOLOGY METHOD 05/25/2024 6:50 AM EST [facility] NRBC 0.0 <1.0 % LAB HEMETOLOGY METHOD 05/25/2024 6:50 AM EST [facility] NRBC Absolute 0.00 <0.10 K/mcL LAB HEMETOLOGY METHOD 05/25/2024 6:50 AM EST [facility] Blood Venous blood specimen / Unknown Venipuncture / Unknown 05/25/2024 5:32 AM EST 05/25/2024 6:27 AM EST us Liang Reinoso MD LAB BLOOD ORDERABLE S Final Result [facility] [address] [place] [address], * Phosphorus (05/25/2024 5:32 AM EST) Phosphorus 2.8 2.5 - 4.5 mg/dL LAB CHEMISTRY METHOD 05/25/2024 7:15 AM EST [facility] Blood Venous blood specimen / Unknown Venipuncture / Unknown 05/25/2024 5:32 AM EST 05/25/2024 6:27 AM EST us Liang Reinoso MD LAB BLOOD ORDERABLE S Final Result [facility] [address] [place] [address], [place] [phone] * Magnesium (05/24/2024 6:07 AM EST) [facility] Magnesium 2.1 1.9 - 2.6 mg/dL LAB CHEMISTRY METHOD 05/24/2024 7:57 AM [facility] Blood Venous blood specimen / Unknown Venipuncture / Unknown 05/24/2024 6:07 AM EST 05/24/2024 7:03 AM EST Liang Reinoso MD LAB BLOOD ORDERABLE S Final Result [facility] [address] [place] [address], [place] [phone] * (ABNORMAL) Basic metabolic panel (05/24/2024 6:07 AM EST) [facility] Sodium 133 133 - 145 mmol/L LAB CHEMISTRY METHOD 05/24/2024 7:57 AM [facility] Potassium 3.5 3.5 - 5.5 mmol/L LAB CHEMISTRY METHOD 05/24/2024 7:57 AM [facility] Chloride 94(L) 96 - 110 mmol/L LAB CHEMISTRY METHOD 05/24/2024 7:57 AM [facility] CO2 32 21 - 32 mmol/L LAB CHEMISTRY METHOD 05/24/2024 7:57 AM [facility] Anion Gap 7 3 - 11 LAB CHEMISTRY METHOD 05/24/2024 7:57 AM [facility] Glucose 127(H) 70 - 100 mg/dL LAB CHEMISTRY METHOD 05/24/2024 7:57 AM [facility] BUN 12 5 - 25 mg/dL LAB CHEMISTRY METHOD 05/24/2024 7:57 AM [facility] Creatinine 0.62(L) 0.70 - 1.30 mg/dL LAB CHEMISTRY METHOD 05/24/2024 7:57 AM [facility] eGFR 105 >=60 mL/min/1. 73m2 LAB CHEMISTRY METHOD 05/24/2024 7:57 AM [facility] Comment:Calculation based on the??Chronic Kidney Disease Epidemiology Collaboration (CKD-EPI) equation refit??without adjustment for race. BUN/Creatinine Ratio 19.4 LAB CHEMISTRY METHOD 05/24/2024 7:57 AM [facility] Calcium 8.2(L) 8.5 - 10.5 mg/dL LAB CHEMISTRY METHOD 05/24/2024 7:57 AM [facility] Blood Venous blood specimen / Unknown Venipuncture / Unknown 05/24/2024 6:07 AM EST 05/24/2024 7:03 AM EST Liang Reinoso MD LAB BLOOD ORDERABLE S Final Result [facility] [address] [place] [address], [place] [phone] * (ABNORMAL) Complete blood count (05/24/2024 6:07 AM EST) WBC 10.2 4.8 - 10.8 K/mcL LAB HEMETOLOGY METHOD 05/24/2024 8:00 AM [facility] RBC 3.60(L) 4.50 - 5.50 M/mcL LAB HEMETOLOGY METHOD 05/24/2024 8:00 AM [facility] Hemoglobin 12.3(L) 13.5 - 17.5 g/dL LAB HEMETOLOGY METHOD 05/24/2024 8:00 AM [facility] Hematocrit 36.9(L) 42.0 - 54.0 % LAB HEMETOLOGY METHOD 05/24/2024 8:00 AM [facility] MCV 102.2(H) 79.0 - 98.0 FL LAB HEMETOLOGY METHOD 05/24/2024 8:00 AM EST [facility] MCH 34.1(H) 27.0 - 32.0 pcg LAB HEMETOLOGY METHOD 05/24/2024 8:00 AM [facility] MCHC 33.3 32.0 - 37.0 g/dL LAB HEMETOLOGY METHOD 05/24/2024 8:00 AM EST [facility] RDW 15.7(H) 11.0 - 15.0 % LAB HEMETOLOGY METHOD 05/24/2024 8:00 AM [facility] Platelets 146 130 - 400 K/mcL LAB HEMETOLOGY METHOD 05/24/2024 8:00 AM [facility] MPV 10.8 7.0 - 11.0 FL LAB HEMETOLOGY METHOD 05/24/2024 8:00 AM [facility] NRBC 0.0 <1.0 % LAB HEMETOLOGY METHOD 05/24/2024 8:00 AM [facility] NRBC Absolute 0.00 <0.10 K/mcL LAB HEMETOLOGY METHOD 05/24/2024 8:00 AM [facility] Blood Venous blood specimen / Unknown Venipuncture / Unknown 05/24/2024 6:07 AM EST 05/24/2024 7:03 AM EST us Liang Reinoso MD LAB BLOOD ORDERABLE S Final Result [facility] [address] [place] [address], * Phosphorus (05/24/2024 6:07 AM EST) Phosphorus 2.8 2.5 - 4.5 mg/dL LAB CHEMISTRY METHOD 05/24/2024 7:57 AM EST [facility] Blood Venous blood specimen / Unknown Venipuncture / Unknown 05/24/2024 6:07 AM EST 05/24/2024 7:03 AM EST Liang Reinoso MD LAB BLOOD ORDERABLE S Final Result Performing Organization Address City/[facility]/ZIP Co de Phone Number [facility] [address] [place] [address], [place] [phone] * Vancomycin, trough (05/23/2024 12:10 PM EST) Pathologist [facility] Vancomycin Trough 13.0 10.0 - 20.0 mcg/mL LAB CHEMISTRY METHOD 05/23/2024 12:59 PM [facility] Blood Venous blood specimen / Unknown Venipuncture / Unknown 05/23/2024 12:10 PM EST 05/23/2024 12:28 PM EST [facility] LAB BLOOD ORDERABLES Final Re sult Performing Organization Address City/[facility]/ZIP Co de Phone Number [facility] [address] [place] [address], [place] [phone] * (ABNORMAL) Basic metabolic panel (05/23/2024 8:24 AM EST) Pathologist [facility] Sodium 134 133 - 145 mmol/L LAB CHEMISTRY METHOD 05/23/2024 9:17 AM [facility] Potassium 3.9 3.5 - 5.5 mmol/L LAB CHEMISTRY METHOD 05/23/2024 9:17 AM [facility] Chloride 95(L) 96 - 110 mmol/L LAB CHEMISTRY METHOD 05/23/2024 9:17 AM [facility] CO2 34(H) 21 - 32 mmol/L LAB CHEMISTRY METHOD 05/23/2024 9:17 AM [facility] Anion Gap 5 3 - 11 LAB CHEMISTRY METHOD 05/23/2024 9:17 AM [facility] Glucose 160(H) 70 - 100 mg/dL LAB CHEMISTRY METHOD 05/23/2024 9:17 AM [facility] BUN 11 5 - 25 mg/dL LAB CHEMISTRY METHOD 05/23/2024 9:17 AM [facility] Creatinine 0.64(L) 0.70 - 1.30 mg/dL LAB CHEMISTRY METHOD 05/23/2024 9:17 AM [facility] eGFR 104 >=60 mL/min/1. 73m2 LAB CHEMISTRY METHOD 05/23/2024 9:17 AM [facility] Comment:Calculation based on the??Chronic Kidney Disease Epidemiology Collaboration (CKD-EPI) equation refit??without adjustment for race. BUN/Creatinine Ratio 17.2 LAB CHEMISTRY METHOD 05/23/2024 9:17 AM [facility] Calcium 8.4(L) 8.5 - 10.5 mg/dL LAB CHEMISTRY METHOD 05/23/2024 9:17 AM [facility] Blood Venous blood specimen / Unknown Venipuncture / Unknown 05/23/2024 8:24 AM EST 05/23/2024 8:44 AM EST us Jose Cruz Cordon MD LAB BLOOD ORDERABLES Final Resu lt [facility] [address] [place] [address], * Lavender tube (05/23/2024 3:07 AM EST) Extra Tube Hold for add-ons. 05/23/2024 5:01 AM EST [facility] Comment:Auto resulted. Blood Venous blood specimen / Unknown 05/23/2024 3:07 AM EST 05/23/2024 3:19 AM EST us Jose Cruz Cordon MD LAB BLOOD ORDERABLES Final Resu lt Performing Organization Address City/[facility]/ZIP Co de Phone Number [facility] [address] [place] [address], [place] [phone] * (ABNORMAL) Vancomycin, trough (05/23/2024 3:05 AM EST) Vancomycin Trough 21.3(H) 10.0 - 20.0 mcg/mL LAB CHEMISTRY METHOD 05/23/2024 4:00 AM EST [facility] Blood Venous blood specimen / Unknown Venipuncture / Unknown 05/23/2024 3:05 AM EST 05/23/2024 3:18 AM EST [facility] LAB BLOOD ORDERABLES Final Re sult Performing Organization Address [facility]/ZIP Co de Phone Number [facility] [address] [place] [address], [place] [phone] * (ABNORMAL) Prothrombin time with INR (05/22/2024 5:42 AM EST) [facility] Protime 16.5(H) 10.6 - 13.9 sec LAB COAGULATION METHOD 05/22/2024 6:53 AM EST [facility] INR 1.3 LAB COAGULATION METHOD 05/22/2024 6:53 AM EST [facility] Blood Venous blood specimen / Unknown Venipuncture / Unknown 05/22/2024 5:42 AM EST 05/22/2024 6:25 AM EST Jose Cruz Cordon MD LAB BLOOD ORDERABLES Final Resu lt Performing Organization Address City/[facility]/ZIP Co de Phone Number [facility] [address] [place] [address], [place] [phone] * Phosphorus (05/22/2024 5:42 AM EST) Phosphorus 2.9 2.5 - 4.5 mg/dL LAB CHEMISTRY METHOD 05/22/2024 7:20 AM EST [facility] Blood Venous blood specimen / Unknown Venipuncture / Unknown 05/22/2024 5:42 AM EST 05/22/2024 6:25 AM EST us Jose Cruz Cordon MD LAB BLOOD ORDERABLES Final Resu lt Performing Organization Address City/[facility]/ZIP Co de Phone Number [facility] [address] [place] [address], [place] [phone] * Magnesium (05/22/2024 5:42 AM EST) Pathologist [facility] Magnesium 2.1 1.9 - 2.6 mg/dL LAB CHEMISTRY METHOD 05/22/2024 7:20 AM EST [facility] Blood Venous blood specimen / Unknown Venipuncture / Unknown 05/22/2024 5:42 AM EST 05/22/2024 6:25 AM EST us Jose Cruz Cordon MD LAB BLOOD ORDERABLES Final Resu lt Performing Organization Address City/[facility]/ZIP Co de Phone Number [facility] [address] [place] [address], [place] [phone] * (ABNORMAL) Basic metabolic panel (05/22/2024 5:42 AM EST) Sodium 136 133 - 145 mmol/L LAB CHEMISTRY METHOD 05/22/2024 7:20 AM EST [facility] Potassium 4.4 3.5 - 5.5 mmol/L LAB CHEMISTRY METHOD 05/22/2024 7:20 AM EST [facility] Chloride 100 96 - 110 mmol/L LAB CHEMISTRY METHOD 05/22/2024 7:20 AM EST [facility] CO2 30 21 - 32 mmol/L LAB CHEMISTRY METHOD 05/22/2024 7:20 AM EST [facility] Anion Gap 6 3 - 11 LAB CHEMISTRY METHOD 05/22/2024 7:20 AM [facility] Glucose 139(H) 70 - 100 mg/dL LAB CHEMISTRY METHOD 05/22/2024 7:20 AM [facility] BUN 10 5 - 25 mg/dL LAB CHEMISTRY METHOD 05/22/2024 7:20 AM [facility] Creatinine 0.58(L) 0.70 - 1.30 mg/dL LAB CHEMISTRY METHOD 05/22/2024 7:20 AM [facility] eGFR 108 >=60 mL/min/1. 73m2 LAB CHEMISTRY METHOD 05/22/2024 7:20 AM [facility] Comment:Calculation based on the??Chronic Kidney Disease Epidemiology Collaboration (CKD-EPI) equation refit??without adjustment for race. BUN/Creatinine Ratio 17.2 LAB CHEMISTRY METHOD 05/22/2024 7:20 AM [facility] Calcium 8.1(L) 8.5 - 10.5 mg/dL LAB CHEMISTRY METHOD 05/22/2024 7:20 AM [facility] Blood Venous blood specimen / Unknown Venipuncture / Unknown 05/22/2024 5:42 AM EST 05/22/2024 6:25 AM EST us Jose Cruz Cordon MD LAB BLOOD ORDERABLES Final Resu lt [facility] [address] [place] [address], * Lavender tube (05/22/2024 5:37 AM EST) Extra Tube Hold for add-ons. 05/22/2024 8:01 AM EST [facility] Comment:Auto resulted. Blood Venous blood specimen / Unknown Venipuncture / Unknown 05/22/2024 5:37 AM EST 05/22/2024 6:30 AM EST us Jose Cruz Cordon MD LAB BLOOD ORDERABLES Final Resu lt [facility] [address] [place] [address], [place] [phone] * Vascular US duplex lower extremity venous [...] Signed Date: 05/21/2024 09:23 ET Workstation ID: [id number] Transcribed By: Self Edit Transcribed Date: 05/21/2024 [...] Signed Date: 05/21/2024 09:23 ET Workstation ID: [id number] Transcribed By: Self Edit Transcribed Date: 05/21/2024 09:22 ET us Jose Cruz Cordon MD CV VASCULAR PROCEDURES Final Re sult * Triiodothyronine free (05/21/2024 3:17 AM EST) T3, Free 249 230 - 420 pcg/dL LAB CHEMISTRY METHOD 05/21/2024 4:50 AM EST [facility] Blood Venous blood specimen / Unknown Venipuncture / Unknown 05/21/2024 3:17 AM EST 05/21/2024 3:23 AM EST us Jose Cruz Cordon MD LAB BLOOD ORDERABLES Final Resu lt Performing Organization Address City/[facility]/ZIP Co de Phone Number [facility] [address] [place] [address], [place] [phone] * Free thyroxine with reflex to free triiodothyronine (05/21/2024 3:17 AM EST) Free T4 1.02 0.70 - 1.80 ng/dL LAB CHEMISTRY METHOD 05/21/2024 4:25 AM EST [facility] Blood Venous blood specimen / Unknown Venipuncture / Unknown 05/21/2024 3:17 AM EST 05/21/2024 3:23 AM EST us Jose Cruz Cordon MD LAB BLOOD ORDERABLES Final Resu lt [facility] [address] [place] [address], * (ABNORMAL) CBC auto differential (05/21/2024 3:17 AM EST) [facility] WBC 9.0 4.8 - 10.8 K/mcL LAB HEMETOLOGY METHOD 05/21/2024 3:29 AM [facility] RBC 3.70(L) 4.50 - 5.50 M/mcL LAB HEMETOLOGY METHOD 05/21/2024 3:29 AM [facility] Hemoglobin 12.6(L) 13.5 - 17.5 g/dL LAB HEMETOLOGY METHOD 05/21/2024 3:29 AM [facility] Hematocrit 37.2(L) 42.0 - 54.0 % LAB HEMETOLOGY METHOD 05/21/2024 3:29 AM [facility] MCV 101.4(H) 79.0 - 98.0 FL LAB HEMETOLOGY METHOD 05/21/2024 3:29 AM [facility] MCH 34.3(H) 27.0 - 32.0 pcg LAB HEMETOLOGY METHOD 05/21/2024 3:29 AM [facility] MCHC 33.9 32.0 - 37.0 g/dL LAB HEMETOLOGY METHOD 05/21/2024 3:29 AM [facility] RDW 15.9(H) 11.0 - 15.0 % LAB HEMETOLOGY METHOD 05/21/2024 3:29 AM [facility] Platelets 109(L) 130 - 400 K/mcL LAB HEMETOLOGY METHOD 05/21/2024 3:29 AM [facility] MPV 10.7 7.0 - 11.0 FL LAB HEMETOLOGY METHOD 05/21/2024 3:29 AM [facility] NRBC 0.0 <1.0 % LAB HEMETOLOGY METHOD 05/21/2024 3:29 AM [facility] NRBC Absolute 0.00 <0.10 K/mcL LAB HEMETOLOGY METHOD 05/21/2024 3:29 AM [facility] Neutrophils Relative 73.9 % LAB HEMETOLOGY METHOD 05/21/2024 3:29 AM [facility] Lymphocytes Relative 9.1 % LAB HEMETOLOGY METHOD 05/21/2024 3:29 AM [facility] Monocytes Relative 10.9 % LAB HEMETOLOGY METHOD 05/21/2024 3:29 AM [facility] Eosinophils Relative 2.5 % LAB HEMETOLOGY METHOD 05/21/2024 3:29 AM [facility] Basophils Relative 0.7 % LAB HEMETOLOGY METHOD 05/21/2024 3:29 AM [facility] Immature Granulocytes Relative 2.9 % LAB HEMETOLOGY METHOD 05/21/2024 3:29 AM [facility] Neutrophils Absolute 6.67 1.50 - 7.00 K/mcL LAB HEMETOLOGY METHOD 05/21/2024 3:29 AM [facility] Lymphocytes Absolute 0.82(L) 1.00 - 5.00 K/mcL LAB HEMETOLOGY METHOD 05/21/2024 3:29 AM [facility] Monocytes Absolute 0.98 0.20 - 1.00 K/mcL LAB HEMETOLOGY METHOD 05/21/2024 3:29 AM [facility] Eosinophils Absolute 0.23 0.00 - 0.50 K/mcL LAB HEMETOLOGY METHOD 05/21/2024 3:29 AM [facility] Basophils Absolute 0.06 0.00 - 0.20 K/mcL LAB HEMETOLOGY METHOD 05/21/2024 3:29 AM [facility] Immature Granulocytes Absolute 0.26(H) 0.00 - 0.03 K/mcL LAB HEMETOLOGY METHOD 05/21/2024 3:29 AM EST [facility] Blood Venous blood specimen / Unknown Venipuncture / Unknown 05/21/2024 3:17 AM EST 05/21/2024 3:23 AM EST us Jose Cruz Cordon MD LAB BLOOD ORDERABLES Final Resu lt Performing Organization Address City/[facility]/ZIP Co de Phone Number [facility] [address] [place] [address], [place] [phone] * Lactate (05/21/2024 3:17 AM EST) Lactate 1.8 0.4 - 2.0 mmol/L LAB CHEMISTRY METHOD 05/21/2024 3:58 AM EST [facility] Blood Venous blood specimen / Unknown Venipuncture / Unknown 05/21/2024 3:17 AM EST 05/21/2024 3:23 AM EST us Jose Cruz Cordon MD LAB BLOOD ORDERABLES Final Resu lt Performing Organization Address City/[facility]/ZIP Co de Phone Number [facility] [address] [place] [address], [place] [phone] * (ABNORMAL) Thyroid stimulating hormone with reflex to free t4 and free t3 (05/21/2024 3:17 AM EST) TSH 8.16(H) 0.40 - 4.00 mcIU/mL LAB CHEMISTRY METHOD 05/21/2024 3:59 AM EST [facility] Blood Venous blood specimen / Unknown Venipuncture / Unknown 05/21/2024 3:17 AM EST 05/21/2024 3:23 AM EST us Jose Cruz Cordon MD LAB BLOOD ORDERABLES Final Resu lt Performing Organization Address City/State/[facility] Co de Phone Number [facility] [address] [place] [address], * Hemoglobin A1c (05/21/2024 3:17 AM EST) Pathologist [facility] Hemoglobin A1C 4.9 <6.5 % LAB CHEMISTRY METHOD 05/21/2024 1:49 PM EST [facility] Mean Bld Glu Estim. 94 mg/dL LAB CHEMISTRY METHOD 05/21/2024 1:49 PM EST [facility] Blood Venous blood specimen / Unknown Venipuncture / Unknown 05/21/2024 3:17 AM EST 05/21/2024 3:23 AM EST us Jose Cruz Cordon MD LAB BLOOD ORDERABLES Final Resu lt Performing Organization Address [facility] Co de Phone Number [facility] [address] [place] [address], * Phosphorus (05/21/2024 3:17 AM EST) [facility] Phosphorus 2.7 2.5 - 4.5 mg/dL LAB CHEMISTRY METHOD 05/21/2024 3:49 AM EST [facility] Blood Venous blood specimen / Unknown Venipuncture / Unknown 05/21/2024 3:17 AM EST 05/21/2024 3:23 AM EST us Jose Cruz Cordon MD LAB BLOOD ORDERABLES Final Resu lt Performing Organization Address [facility] Co de Phone Number [facility] [address] [place] [address], * (ABNORMAL) Prothrombin time with INR (05/21/2024 3:17 AM EST) [facility] Protime 16.9(H) 10.6 - 13.9 sec LAB COAGULATION METHOD 05/21/2024 3:32 AM [facility] INR 1.4 LAB COAGULATION METHOD 05/21/2024 3:32 AM [facility] Blood Venous blood specimen / Unknown Venipuncture / Unknown 05/21/2024 3:17 AM EST 05/21/2024 3:23 AM EST us Jose Cruz Cordon MD LAB BLOOD ORDERABLES Final Resu lt [facility] [address] [place] [address], [place] [phone] * (ABNORMAL) Comprehensive metabolic panel (05/21/2024 3:17 AM EST) Sodium 135 133 - 145 mmol/L LAB CHEMISTRY METHOD 05/21/2024 3:49 AM [facility] Potassium 3.4(L) 3.5 - 5.5 mmol/L LAB CHEMISTRY METHOD 05/21/2024 3:49 AM [facility] Chloride 102 96 - 110 mmol/L LAB CHEMISTRY METHOD 05/21/2024 3:49 AM [facility] CO2 29 21 - 32 mmol/L LAB CHEMISTRY METHOD 05/21/2024 3:49 AM [facility] Anion Gap 4 3 - 11 LAB CHEMISTRY METHOD 05/21/2024 3:49 AM [facility] Glucose 161(H) 70 - 100 mg/dL LAB CHEMISTRY METHOD 05/21/2024 3:49 AM [facility] BUN 15 5 - 25 mg/dL LAB CHEMISTRY METHOD 05/21/2024 3:49 AM [facility] Creatinine 0.63(L) 0.70 - 1.30 mg/dL LAB CHEMISTRY METHOD 05/21/2024 3:49 AM [facility] eGFR 105 >=60 mL/min/1. 73m2 LAB CHEMISTRY METHOD 05/21/2024 3:49 AM [facility] Comment:Calculation based on the??Chronic Kidney Disease Epidemiology Collaboration (CKD-EPI) equation refit??without adjustment for race. BUN/Creatinine Ratio 23.8 LAB CHEMISTRY METHOD 05/21/2024 3:49 AM [facility] Calcium 7.6(L) 8.5 - 10.5 mg/dL LAB CHEMISTRY METHOD 05/21/2024 3:49 AM [facility] AST (SGOT) 31 10 - 42 unit/L LAB CHEMISTRY METHOD 05/21/2024 3:49 AM [facility] ALT (SGPT) 21 10 - 60 unit/L LAB CHEMISTRY METHOD 05/21/2024 3:49 AM [facility] Alkaline Phosphatase 139(H) 42 - 121 unit/L LAB CHEMISTRY METHOD 05/21/2024 3:49 AM [facility] Total Protein 5.4(L) 6.0 - 8.0 g/dL LAB CHEMISTRY METHOD 05/21/2024 3:49 AM [facility] Albumin 2.3(L) 3.2 - 5.0 g/dL LAB CHEMISTRY METHOD 05/21/2024 3:49 AM [facility] Total Bilirubin 3.0(H) 0.0 - 1.4 mg/dL LAB CHEMISTRY METHOD 05/21/2024 3:49 AM [facility] Blood Venous blood specimen / Unknown Venipuncture / Unknown 05/21/2024 3:17 AM EST 05/21/2024 3:23 AM EST us Jose Cruz Cordon MD LAB BLOOD ORDERABLES Final Resu lt [facility] [address] [place] [address], * (ABNORMAL) Magnesium (05/21/2024 3:17 AM EST) Magnesium 1.8(L) 1.9 - 2.6 mg/dL LAB CHEMISTRY METHOD 05/21/2024 3:49 AM EST [facility] Blood Venous blood specimen / Unknown Venipuncture / Unknown 05/21/2024 3:17 AM EST 05/21/2024 3:23 AM EST us Jose Cruz Cordon MD LAB BLOOD ORDERABLES Final Resu lt Performing Organization Address [facility]/ZIP Co de Phone Number [facility] [address] [place] [address], [place] [phone] * Vancomycin, trough Please draw prior to vancomycin dose. (05/21/2024 3:17 AM EST) [facility] Vancomycin Trough 16.4 10.0 - 20.0 mcg/mL LAB CHEMISTRY METHOD 05/21/2024 3:49 AM EST [facility] Blood Venous blood specimen / Unknown Venipuncture / Unknown 05/21/2024 3:17 AM EST 05/21/2024 3:23 AM EST [facility] BLOOD ORDERABLES Final Re sult Performing Organization Address [facility] Co de Phone Number [facility] [address] [place] [address], [place] [phone] * (ABNORMAL) POCT Glucose, blood (05/20/2024 8:37 AM EST) [facility] Glucose POCT 162(H) 70 - 100 mg/dL 05/20/2024 8:37 AM EST [facility] Blood Capillary blood specimen / Unknown 05/20/2024 8:37 AM EST 05/20/2024 8:38 AM EST us Jose Cruz Cordon MD LAB POINT OF CARE TE ST DOCKED DEVICE UNSOLICITED RESULTS Final Result Performing Organization Address City/[facility]/ZIP Co de Phone Number [facility] [address] [place] [address], [place] [phone] * (ABNORMAL) Sedimentation rate (05/20/2024 6:09 AM EST) [facility] Sed Rate 35(H) 0 - 20 mm/hr LAB HEMETOLOGY METHOD 05/20/2024 2:00 PM EST [facility] Blood Venous blood specimen / Unknown Venipuncture / Unknown 05/20/2024 6:09 AM EST 05/20/2024 6:32 AM EST us Jose Cruz Cordon MD LAB BLOOD ORDERABLES Final Resu lt Performing Organization Address City/[facility]/ZIP Co de Phone Number [facility] [address] [place] [address], [place] [phone] * (ABNORMAL) C-reactive protein (05/20/2024 6:09 AM EST) [facility] C-Reactive Protein 15.70(H) <=0.50 mg/dL LAB CHEMISTRY METHOD 05/20/2024 2:43 PM EST [facility] Blood Venous blood specimen / Unknown Venipuncture / Unknown 05/20/2024 6:09 AM EST 05/20/2024 6:30 AM EST us Jose Cruz Cordon MD LAB BLOOD ORDERABLES Final Resu lt [facility] [address] [place] [address], [place] [phone] * (ABNORMAL) Complete blood count (05/20/2024 6:09 AM EST) [facility] WBC 8.8 4.8 - 10.8 K/mcL LAB HEMETOLOGY METHOD 05/20/2024 8:09 AM EST [facility] RBC 3.30(L) 4.50 - 5.50 M/mcL LAB HEMETOLOGY METHOD 05/20/2024 8:09 AM [facility] Hemoglobin 11.2(L) 13.5 - 17.5 g/dL LAB HEMETOLOGY METHOD 05/20/2024 8:09 AM [facility] Hematocrit 32.8(L) 42.0 - 54.0 % LAB HEMETOLOGY METHOD 05/20/2024 8:09 AM [facility] MCV 100.6(H) 79.0 - 98.0 FL LAB HEMETOLOGY METHOD 05/20/2024 8:09 AM [facility] MCH 34.4(H) 27.0 - 32.0 pcg LAB HEMETOLOGY METHOD 05/20/2024 8:09 AM [facility] MCHC 34.1 32.0 - 37.0 g/dL LAB HEMETOLOGY METHOD 05/20/2024 8:09 AM [facility] RDW 15.7(H) 11.0 - 15.0 % LAB HEMETOLOGY METHOD 05/20/2024 8:09 AM [facility] Platelets 90(L) 130 - 400 K/mcL LAB HEMETOLOGY METHOD 05/20/2024 8:09 AM [facility] Comment:reviewed by slide MPV 10.8 7.0 - 11.0 FL LAB HEMETOLOGY METHOD 05/20/2024 8:09 AM [facility] NRBC 0.0 <1.0 % LAB HEMETOLOGY METHOD 05/20/2024 8:09 AM [facility] NRBC Absolute 0.00 <0.10 K/mcL LAB HEMETOLOGY METHOD 05/20/2024 8:09 AM [facility] Blood Venous blood specimen / Unknown Venipuncture / Unknown 05/20/2024 6:09 AM EST 05/20/2024 6:32 AM EST us Rosaura Iglesias MD LAB BLOOD ORDERABLES Final Res ult [facility] [address] [place] [address], * (ABNORMAL) Basic metabolic panel (05/20/2024 6:09 AM EST) Sodium 134 133 - 145 mmol/L LAB CHEMISTRY METHOD 05/20/2024 7:11 AM [facility] Potassium 3.3(L) 3.5 - 5.5 mmol/L LAB CHEMISTRY METHOD 05/20/2024 7:11 AM [facility] Chloride 102 96 - 110 mmol/L LAB CHEMISTRY METHOD 05/20/2024 7:11 AM [facility] CO2 27 21 - 32 mmol/L LAB CHEMISTRY METHOD 05/20/2024 7:11 AM [facility] Anion Gap 5 3 - 11 LAB CHEMISTRY METHOD 05/20/2024 7:11 AM [facility] Glucose 153(H) 70 - 100 mg/dL LAB CHEMISTRY METHOD 05/20/2024 7:11 AM [facility] BUN 18 5 - 25 mg/dL LAB CHEMISTRY METHOD 05/20/2024 7:11 AM [facility] Creatinine 0.56(L) 0.70 - 1.30 mg/dL LAB CHEMISTRY METHOD 05/20/2024 7:11 AM [facility] eGFR 109 >=60 mL/min/1. 73m2 LAB CHEMISTRY METHOD 05/20/2024 7:11 AM [facility] Comment:Calculation based on the??Chronic Kidney Disease Epidemiology Collaboration (CKD-EPI) equation refit??without adjustment for race. BUN/Creatinine Ratio 32.1 LAB CHEMISTRY METHOD 05/20/2024 7:11 AM [facility] Calcium 7.9(L) 8.5 - 10.5 mg/dL LAB CHEMISTRY METHOD 05/20/2024 7:11 AM EST [facility] Blood Venous blood specimen / Unknown Venipuncture / Unknown 05/20/2024 6:09 AM EST 05/20/2024 6:30 AM EST Rosaura Iglesias MD LAB BLOOD ORDERABLES Final Res ult Performing Organization Address [facility]/ZIP Co de Phone Number [facility] [address] [place] [address], [place] [phone] * (ABNORMAL) Lactate (05/20/2024 1:02 AM EST) Lactate 2.2(H) 0.4 - 2.0 mmol/L LAB CHEMISTRY METHOD 05/20/2024 1:38 AM EST [facility] Blood Venous blood specimen / Unknown Venipuncture / Unknown 05/20/2024 1:02 AM EST 05/20/2024 1:06 AM EST us [facility] LAB BLOOD ORDERABLES Final Re sult Performing Organization Address [facility] Co de Phone Number [facility] [address] [place] [address], [place] [phone] * (ABNORMAL) Lactate (05/19/2024 10:05 PM EST) Lactate 2.3(H) 0.4 - 2.0 mmol/L LAB CHEMISTRY METHOD 05/19/2024 10:38 PM EST [facility] Blood Venous blood specimen / Unknown Venipuncture / Unknown 05/19/2024 10:05 PM EST 05/19/2024 10:12 PM EST [facility] BLOOD ORDERABLES Final Re sult Performing Organization Address City/[facility]/ZIP Co de Phone Number [facility] [address] [place] [address], [place] [phone] * XR Chest 2 Views (05/19/2024 6:51 PM EST) Anatomical Region Laterality Modality Body Radiographic Esmer ging 05/20/2024 8:05 AM EST Impressions 05/20/2024 8:06 AM EST Small-moderate left pleural effusion. -------- FINAL REPORT -------- Dictated By: Frank Vivar Dictated Date: 05/20/2024 08:05 ET Assigned Physician: Frank Vivar Reviewed and Electronically Signed By: Frank Vivar Signed Date: 05/20/2024 08:06 ET Workstation ID: [id number] Transcribed By: Self Edit Transcribed Date: 05/20/2024 [...] Signed Date: 05/20/2024 08:06 ET Workstation ID: [id number] Transcribed By: Self Edit Transcribed Date: 05/20/2024 08:05 ET us [facility] IMG XR PROCEDURES Final Resul t * Blood Culture, Peripheral Draw #2 (05/19/2024 6:13 PM EST) Culture, Blood No growth at 5 days 05/24/2024 7:01 PM EST [facility] Blood Venous blood specimen / Unknown Venipuncture / Unknown 05/19/2024 6:13 PM EST 05/19/2024 6:23 PM EST Rosaura Iglesias MD LAB MICROBIOLOGY - GENERAL ORD ERABLES Final Result Performing Organization Address City/[facility]/ZIP Co de Phone Number [facility] [address] [place] [address], [place] [phone] * Blood Culture, Peripheral Draw #1 (05/19/2024 6:13 PM EST) Culture, Blood No growth at 5 days 05/24/2024 7:01 PM EST [facility] Blood Venous blood specimen / Unknown Venipuncture / Unknown 05/19/2024 6:13 PM EST 05/19/2024 6:22 PM EST Rosaura Iglesias MD LAB MICROBIOLOGY - GENERAL ORD ERABLES Final Result [facility] [address] [place] [address], [place] [phone] * (ABNORMAL) Lactate (05/19/2024 6:13 PM EST) Lactate 3.4(HH) 0.4 - 2.0 mmol/L LAB CHEMISTRY METHOD 05/19/2024 7:08 PM EST [facility] Blood Venous blood specimen / Unknown Venipuncture / Unknown 05/19/2024 6:13 PM EST 05/19/2024 6:23 PM EST [facility] LAB BLOOD ORDERABLES Final Re sult Performing Organization Address [facility]/ZIP Co de Phone Number [facility] [address] [place] [address], [place] [phone] * ECG 12 lead (05/19/2024 5:11 PM EST) [facility] Ventricular Rate ECG 109 BPM GEMUSE Atrial Rate 267 BPM GEMUSE QRS Duration 132 ms GEMUSE Q-T Interval 360 ms GEMUSE QTc 484 ms GEMUSE R [place] -31 degrees GEMUSE T [place] 20 degrees GEMUSE ECG Interpretation Sinus tachycardia Left axis deviation Right bundle branch block Abnormal ECG When compared with ECG of 19-MAY-2024 16:22, (unconfirmed) No significant change was found Confirmed by Fabian JOSEPH YUFENG ([id number]) on 05/20/2024 6:05:19 PM GEMUSE 05/19/2024 5:11 PM EST 05/20/2024 6:05 PM EST Leroyarianna Colby Stalin Francisco DO ECG ORDERABLES Final Res ult Performing Organization Address [facility] Co de Phone Number GEMUSE * Troponin I high sensitivity (05/19/2024 5:03 PM EST) [facility] High Sensitivity Troponin I 7 <=79 ng/L LAB CHEMISTRY METHOD 05/19/2024 5:50 PM EST [facility] Blood Venous blood specimen / Unknown Venipuncture / Unknown 05/19/2024 5:03 PM EST 05/19/2024 5:17 PM EST Narrative [facility] - 05/19/2024 5:50 PM EST High levels of biotin in samples may falsely decrease hsTroponin values. ??Use caution when interpreting hsTroponin results in patients taking biotin who exhibit renal impairment (eGFR <60) or in patients taking more than 20 mg/day of biotin. C[employer] Green Momit Stalin Singh LAB BLOOD ORDERABLES Berenice l Result Performing Organization Address [facility]/ZIP Co de Phone Number [facility] [address] [place] [address], [place] [phone] * Culture urine (05/19/2024 4:28 PM EST) Culture, Urine >100,000 CFU/mL Mixed bacterial morphotypes present suggestive of possible contamination during collection. Suggest appropriate recollection if clinically indicated. 05/20/2024 11:48 AM EST [facility] Urine Indwelling urinary catheter / Unknown Non-blood Collection / Unknown 05/19/2024 4:28 PM EST 05/19/2024 5:25 PM EST [facility] Stalin Singh LAB MICROBIOLOGY - GENERA L ORDERABLES Final Result Performing Organization Address [facility] de Phone Number [facility] [address] [place] [address], [place] [phone] * Pugh urine culture tube (05/19/2024 4:28 PM EST) Extra Tube Hold for add-ons. 05/19/2024 6:02 PM EST [facility] Comment:Auto resulted. Urine Indwelling urinary catheter / Unknown Non-blood Collection / Unknown 05/19/2024 4:28 PM EST 05/19/2024 4:47 PM EST [facility] Stalin [employer] LAB URINE ORDERABLES Berenice l Result Performing Organization Address [facility]/ZIP Co de Phone Number [facility] [address] [place] [address], [place] [phone] * (ABNORMAL) Urinalysis with reflex microscopic and culture (05/19/2024 4:28 PM EST) [facility] [place] Urine 1.033(H) 1.003 - 1.030 LAB URINALYSIS - AUTOMATED METHOD 05/19/2024 5:25 PM [facility] pH, Urine 7.5 5.0 - 8.0 pH LAB URINALYSIS - AUTOMATED METHOD 05/19/2024 5:25 PM [facility] Leukocytes, Urine Moderate(A) Negative LAB URINALYSIS - AUTOMATED METHOD 05/19/2024 5:25 PM [facility] Nitrite, Urine Positive(A) Negative LAB URINALYSIS - AUTOMATED METHOD 05/19/2024 5:25 PM [facility] Protein, Urine 100(A) <=Trace mg/dL LAB URINALYSIS - AUTOMATED METHOD 05/19/2024 5:25 PM [facility] Glucose, Urine Negative Negative mg/dL LAB URINALYSIS - AUTOMATED METHOD 05/19/2024 5:25 PM [facility] Ketones, Urine Trace(A) Negative mg/dL LAB URINALYSIS - AUTOMATED METHOD 05/19/2024 5:25 PM [facility] Urobilinogen , Urine 1.0 0.2 - 1.0 mg/dL LAB URINALYSIS - AUTOMATED METHOD 05/19/2024 5:25 PM [facility] Bilirubin, Urine Small(A) Negative LAB URINALYSIS - AUTOMATED METHOD 05/19/2024 5:25 PM [facility] Blood, Urine Large(A) Negative LAB URINALYSIS - AUTOMATED METHOD 05/19/2024 5:25 PM [facility] RBC, Urine 400.0(H) 0 - 4 /HPF LAB URINALYSIS - AUTOMATED METHOD 05/19/2024 5:25 PM [facility] WBC, Urine 100.0(H) 0 - 4 /HPF LAB URINALYSIS - AUTOMATED METHOD 05/19/2024 5:25 PM EST [facility] Squamous Epithelial, Urine 0 0 - 60 /LPF LAB URINALYSIS - AUTOMATED METHOD 05/19/2024 5:25 PM [facility] Crystals, Urine HEAVY TRIPLE PHOS, HEAVY LIZ PHOSPHATE,M ODERATE CALCIUM OXALATE /LPF LAB URINALYSIS - AUTOMATED METHOD 05/19/2024 5:25 PM [facility] Bacteria, Urine Many(A) Negative /HPF LAB URINALYSIS - AUTOMATED METHOD 05/19/2024 5:25 PM [facility] Hyaline Casts, Urine 0.0 0 - 3 /LPF LAB URINALYSIS - AUTOMATED METHOD 05/19/2024 5:25 PM [facility] Urine Indwelling urinary catheter / Unknown Non-blood Collection / Unknown 05/19/2024 4:28 PM EST 05/19/2024 4:47 PM EST Capptain Lasha Singh DO LAB URINE ORDERABLES Berenice l Result [facility] [address] [place] [address], [place] [phone] * ECG 12 lead (05/19/2024 4:22 PM EST) Ventricular Rate ECG 108 BPM GEMUSE Atrial Rate 113 BPM GEMUSE QRS Duration 132 ms GEMUSE Q-T Interval 368 ms GEMUSE QTc 493 ms GEMUSE R [place] -28 degrees GEMUSE T [place] 34 degrees GEMUSE ECG Interpretation Sinus rhythm [...] * (ABNORMAL) Protime-INR (05/19/2024 4:10 PM EST) [facility] Protime 16.9(H) 10.6 - 13.9 sec LAB COAGULATION METHOD 05/19/2024 4:35 PM EST [facility] INR 1.4 LAB COAGULATION METHOD 05/19/2024 4:35 PM EST [facility] Blood Venous blood specimen / Unknown Venipuncture / Unknown 05/19/2024 4:10 PM EST 05/19/2024 4:25 PM EST Leroy Lasha Singh LAB BLOOD ORDERABLES Berenice l Result Performing Organization Address [facility]/ZIP Co de Phone Number [facility] [address] [place] [address], [place] [phone] * (ABNORMAL) Lactate (05/19/2024 4:10 PM EST) [facility] Lactate 4.4(HH) 0.4 - 2.0 mmol/L LAB CHEMISTRY METHOD 05/19/2024 5:12 PM EST [facility] Blood Venous blood specimen / Unknown Venipuncture / Unknown 05/19/2024 4:10 PM EST 05/19/2024 4:25 PM EST [facility] Lasha Singh LAB BLOOD ORDERABLES Berenice l Result Performing Organization Address City/[facility]/ZIP Co de Phone Number [facility] [address] [place] [address], [place] [phone] * (ABNORMAL) CBC auto differential (05/19/2024 4:10 PM EST) [facility] WBC 12.3(H) 4.8 - 10.8 K/mcL LAB HEMETOLOGY METHOD 05/19/2024 4:33 PM [facility] RBC 3.90(L) 4.50 - 5.50 M/mcL LAB HEMETOLOGY METHOD 05/19/2024 4:33 PM [facility] Hemoglobin 13.3(L) 13.5 - 17.5 g/dL LAB HEMETOLOGY METHOD 05/19/2024 4:33 PM [facility] Hematocrit 39.2(L) 42.0 - 54.0 % LAB HEMETOLOGY METHOD 05/19/2024 4:33 PM [facility] MCV 100.5(H) 79.0 - 98.0 FL LAB HEMETOLOGY METHOD 05/19/2024 4:33 PM [facility] MCH 34.1(H) 27.0 - 32.0 pcg LAB HEMETOLOGY METHOD 05/19/2024 4:33 PM [facility] MCHC 33.9 32.0 - 37.0 g/dL LAB HEMETOLOGY METHOD 05/19/2024 4:33 PM [facility] RDW 15.9(H) 11.0 - 15.0 % LAB HEMETOLOGY METHOD 05/19/2024 4:33 PM [facility] Platelets 116(L) 130 - 400 K/mcL LAB HEMETOLOGY METHOD 05/19/2024 4:33 PM [facility] MPV 10.9 7.0 - 11.0 FL LAB HEMETOLOGY METHOD 05/19/2024 4:33 PM [facility] NRBC 0.0 <1.0 % LAB HEMETOLOGY METHOD 05/19/2024 4:33 PM [facility] NRBC Absolute 0.00 <0.10 K/mcL LAB HEMETOLOGY METHOD 05/19/2024 4:33 PM [facility] Neutrophils Relative 83.0 % LAB HEMETOLOGY METHOD 05/19/2024 4:33 PM [facility] Lymphocytes Relative 5.6 % LAB HEMETOLOGY METHOD 05/19/2024 4:33 PM [facility] Monocytes Relative 8.4 % LAB HEMETOLOGY METHOD 05/19/2024 4:33 PM [facility] Eosinophils Relative 0.8 % LAB HEMETOLOGY METHOD 05/19/2024 4:33 PM [facility] Basophils Relative 0.5 % LAB HEMETOLOGY METHOD 05/19/2024 4:33 PM [facility] Immature Granulocytes Relative 1.7 % LAB HEMETOLOGY METHOD 05/19/2024 4:33 PM [facility] Neutrophils Absolute 10.23(H) 1.50 - 7.00 K/mcL LAB HEMETOLOGY METHOD 05/19/2024 4:33 PM [facility] Lymphocytes Absolute 0.69(L) 1.00 - 5.00 K/mcL LAB HEMETOLOGY METHOD 05/19/2024 4:33 PM [facility] Monocytes Absolute 1.03(H) 0.20 - 1.00 K/mcL LAB HEMETOLOGY METHOD 05/19/2024 4:33 PM [facility] Eosinophils Absolute 0.10 0.00 - 0.50 K/mcL LAB HEMETOLOGY METHOD 05/19/2024 4:33 PM [facility] Basophils Absolute 0.06 0.00 - 0.20 K/mcL LAB HEMETOLOGY METHOD 05/19/2024 4:33 PM [facility] Immature Granulocytes Absolute 0.21(H) 0.00 - 0.03 K/mcL LAB HEMETOLOGY METHOD 05/19/2024 4:33 PM [facility] Blood Venous blood specimen / Unknown Venipuncture / Unknown 05/19/2024 4:10 PM EST 05/19/2024 4:25 PM EST Emily Singh LAB BLOOD ORDERABLES Berenice l Result Performing Organization Address [facility]/ZIP Co de Phone Number [facility] [address] [place] [address], [place] [phone] * B-type natriuretic peptide (05/19/2024 4:10 PM EST) BNP 40 <=100 pcg/mL LAB CHEMISTRY METHOD 05/19/2024 5:07 PM EST [facility] Blood Venous blood specimen / Unknown Venipuncture / Unknown 05/19/2024 4:10 PM EST 05/19/2024 4:25 PM EST Emily Singh LAB BLOOD ORDERABLES Berenice l Result Performing Organization Address [facility] Co de Phone Number [facility] [address] [place] [address], * Magnesium (05/19/2024 4:10 PM EST) Magnesium 2.1 1.9 - 2.6 mg/dL LAB CHEMISTRY METHOD 05/19/2024 4:59 PM EST [facility] Blood Venous blood specimen / Unknown Venipuncture / Unknown 05/19/2024 4:10 PM EST 05/19/2024 4:25 PM EST Emily Singh LAB BLOOD ORDERABLES Berenice l Result Performing Organization Address [facility]/ZIP Co de Phone Number [facility] [address] [place] [address], [place] [phone] * (ABNORMAL) Lipase (05/19/2024 4:10 PM EST) Lipase 76(H) 13 - 75 unit/L LAB CHEMISTRY METHOD 05/19/2024 4:59 PM EST [facility] Blood Venous blood specimen / Unknown Venipuncture / Unknown 05/19/2024 4:10 PM EST 05/19/2024 4:25 PM EST us Emily Singh DO LAB BLOOD ORDERABLES Berenice l Result [facility] [address] [place] [address], [place] [phone] * (ABNORMAL) Comprehensive metabolic panel (05/19/2024 4:10 PM EST) Sodium 134 133 - 145 mmol/L LAB CHEMISTRY METHOD 05/19/2024 5:00 PM [facility] Potassium 3.8 3.5 - 5.5 mmol/L LAB CHEMISTRY METHOD 05/19/2024 5:00 PM [facility] Chloride 99 96 - 110 mmol/L LAB CHEMISTRY METHOD 05/19/2024 5:00 PM [facility] CO2 26 21 - 32 mmol/L LAB CHEMISTRY METHOD 05/19/2024 5:00 PM [facility] Anion Gap 9 3 - 11 LAB CHEMISTRY METHOD 05/19/2024 5:00 PM [facility] Glucose 170(H) 70 - 100 mg/dL LAB CHEMISTRY METHOD 05/19/2024 5:00 PM [facility] BUN 19 5 - 25 mg/dL LAB CHEMISTRY METHOD 05/19/2024 5:00 PM [facility] Creatinine 0.67(L) 0.70 - 1.30 mg/dL LAB CHEMISTRY METHOD 05/19/2024 5:00 PM [facility] eGFR 103 >=60 mL/min/1. 73m2 LAB CHEMISTRY METHOD 05/19/2024 5:00 PM [facility] Comment:Calculation based on the??Chronic Kidney Disease Epidemiology Collaboration (CKD-EPI) equation refit??without adjustment for race. BUN/Creatinine Ratio 28.4 LAB CHEMISTRY METHOD 05/19/2024 5:00 PM [facility] Calcium 8.5 8.5 - 10.5 mg/dL LAB CHEMISTRY METHOD 05/19/2024 5:00 PM [facility] AST (SGOT) 25 10 - 42 unit/L LAB CHEMISTRY METHOD 05/19/2024 5:00 PM [facility] ALT (SGPT) 19 10 - 60 unit/L LAB CHEMISTRY METHOD 05/19/2024 5:00 PM [facility] Alkaline Phosphatase 153(H) 42 - 121 unit/L LAB CHEMISTRY METHOD 05/19/2024 5:00 PM [facility] Total Protein 6.0 6.0 - 8.0 g/dL LAB CHEMISTRY METHOD 05/19/2024 5:00 PM [facility] Albumin 2.4(L) 3.2 - 5.0 g/dL LAB CHEMISTRY METHOD 05/19/2024 5:00 PM [facility] Total Bilirubin 3.1(H) 0.0 - 1.4 mg/dL LAB CHEMISTRY METHOD 05/19/2024 5:00 PM [facility] Blood Venous blood specimen / Unknown Venipuncture / Unknown 05/19/2024 4:10 PM EST 05/19/2024 4:25 PM EST us Emily Singh DO LAB BLOOD ORDERABLES Berenice l Result [facility] [address] [place] [address], * Troponin I high sensitivity (05/19/2024 4:10 PM EST) High Sensitivity Troponin I 7 <=79 ng/L LAB CHEMISTRY METHOD 05/19/2024 5:02 PM EST [facility] Blood Venous blood specimen / Unknown Venipuncture / Unknown 05/19/2024 4:10 PM EST 05/19/2024 4:25 PM EST Narrative [facility] - 05/19/2024 5:02 PM EST High levels of biotin in samples may falsely decrease hsTroponin values. ??Use caution when interpreting hsTroponin results in patients taking biotin who exhibit renal impairment (eGFR <60) or in patients taking more than 20 mg/day of biotin. Emily Colby Stalin Francisco DO LAB BLOOD ORDERABLES Berenice l Result [facility] [address] [place] [address], * ECG-Annotated (05/19/2024) Provider Onbase ECG ORDERABLES [...] 05/25/2024 documented in this encounter Care Teams Admitting Officer Relationship Specialty Start Date End Date Dalia Harmon PA [address] [place] [address], [address] [place] [address] PCP - General 05/10/24 documented as of this encounter
--- OUTSIDE RECORDS SUMMARY | 2024-06-23 19:36 | XMS_ITS | Encounter Summary ---
Author Organization [facility] Address [id number] [place] [phone] Care Team Providers Care Director Drug Name Role Phone Dalia Harmon Primary Care Provider [phone] Encounter Details Date Type Department Care Team (Late st Contact Info) Description 06/18/2024 Lab Requisition [facility] - Main Lab [address] [facility] [place] [address] Gerry Barksdale [address] [facility] [address] [place] [phone] Sepsis, unspecified organism (CMS/HCC) Social History Tobacco [...] 11:20 AM EST Office Visit Gastroenterology - [place] 175 [facility] [address] [phone] Han Sloan DO [address] [address] 07/06/2024 1:00 PM EDT Appointment [facility] Interventional Radiology [address] [place] [phone] 08/12/2024 10:30 AM EDT Ancillary Procedure [facility] - [facility] [address] [phone] documented as of this encounter Visit Diagnoses Diagnosis Sepsis, unspecified organism (CMS/HCC) documented in this encounter Care Teams Director Drug Relationship Specialty Start Date End Date Dalia Harmon PA [address] [place] [address], [address] [place] [address] PCP - General 05/10/24 documented as of this encounter
== END 2024-06-23 10:30 | disposition home or self-care (01) ==
LOC: HO.LNP 10:29
DX: G89.4 Chronic pain syndrome (principal); N39.0 Urinary tract infection, site not specified; M87.052 Idiopathic aseptic necrosis of left femur; E66.01 Morbid (severe) obesity due to excess calories; Z68.42 Body mass index [BMI] 45.0-49.9, adult; I82.409 Acute embolism and thrombosis of unspecified deep veins of unspecified lower extremity; R31.9 Hematuria, unspecified; I87.2 Venous insufficiency (chronic) (peripheral); B35.3 Tinea pedis; Z87.19 Personal history of other diseases of the digestive system
CPT/HCPCS: 81002; 87086; 96127; 99212

== ENCOUNTER 2024-06-23 10:29 | Outpatient (AMB) | payer OTHER, SELFPAY ==
[2024-06-23 10:48] VITALS: BP 116/64; PULSE 96; O2SAT 95
--- NOTE | 2024-06-23 10:48 | A.OFFPC_ITS ---
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 Required: No Accompanied by: Self / Same As Patient Allergies nystatin Adverse Reaction (Mild, Verified 06/23/24 10:48) swelling atorvastatin Adverse Reaction (Verified 06/23/24 10:48) Diarrhea Medication List - Last Reconciled 06/23/24 by Dalia Harmon PA-C albuterol sulfate 90 mcg/actuation 2 puffs inhalation Q4-6H PRN 60 days albuterol sulfate 2.5 mg (0.5 mL) inhalation Q20M aspirin 81 mg PO DAILY cholecalciferol (vitamin D3) (Vitamin D3) 50 mcg PO DAILY ciprofloxacin HCl 500 mg PO BID 5 days furosemide 40 mg PO DAILY naloxone 4 mg/actuation 4 mg intranasal Q2M PRN 1 day nebulizers (Aeroneb Go Nebulizer) As directed oxybutynin chloride ER 5 mg PO DAILY 30 days oxycodone 10 mg PO Q4H PRN 30 days rosuvastatin (Crestor) 5 mg PO DAILY spironolactone 150 mg PO BID tamsulosin 0.4 mg PO DAILY walker Folding Front wheeled walker zolpidem 10 mg PO BEDTIME PRN Tobacco use date assessed: 06/23/24 Fall risk assessment: 1 Fall in past year Last assessed Fall Risk: 06/23/24 Dental Screening Dental Screen Date: 06/23/24 Did you have a dental visit in the last 12 months?: No Did you have a dental problem in the last 6 months where you did not have access to dental care?: No Was dental information given to patient?: No HPI follow up rehab HPI Details 64-year-old male with past medical histo ry of morbid obesity, 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 Lower extremity Doppler showed nonocclusive thrombus in the right femoral vein treated with Lovenox and switch to Eliquis on discharge. He was recommended to have outpatient follow up with Urology for chronic catheterization. He completed his outpatient antibiotics and advised to follow up with his specialists. Recent catheter risks included improper placement, leading to severe bleeding episodes remedied in the ER. History of recurrent urinary infections and t hrombus in the lower leg necessitated treatment with Eliquis (apixaban). Apixaban was discontinued while during his last admission likely due to the hematuria. Sepsis treatment in the hospital followed from leg cellulitis complications, requiring antibiotic therapy (Cipro). Ascites management involved increased diuretics and large volume paracentesis. He is seeing his waterproof coating machine tender tomorrow. They are unclear on instructions regarding Eliquis however he has not had any further calf pain or shortness of breath. Patient is also requesting a power wheelchair as he has upper extremity weakness primarily in his hands which makes it difficult for him to self propel the wheelchair. [facility] Medical History Chronic pain syndrome Portal hypertensive gastropathy Depression Anxiety Iron overload syndrome Internal hemorrhoids Diverticulosis Hx of esophageal varices jail prescription opiate use No natural teeth Back pain Back pain Arthritis Fatty liver History of cirrhosis of liver Avascular necrosis Hemochromatosis COPD (chronic obstructive pulmonary disease) NICOLE on CPAP Surgical History Hx of esophagogastroduodenoscopy Hx of colonoscopy [place] teeth extracted History of surgery History of back surgery (~1997) H/O discectomy (~1997) Family History Maternal Grandfather Heart attack Brother Heart attack Social History Household Members: None Housing: Apartment Are you a primary care management coordinator to a significant other at home: No Do you presently have visiting nurse or other home services: Yes (CORRECTIONAL SECURITY OFFICER 37.5 hours M-F, 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) 75 years or older and lives alone: No Patient Tobacco Use Status: Former Tobacco user Tobacco use type: Cigarette service: No Current occupational status: unemployed Cognitive needs: No Hearing needs: No Vision needs: No Questionnaire PHQ-9 Over the last 2 weeks, how often have you been bothered by any of the following problems? 1. Little interest or pleasure in doing things: more than half the days 2. Feeling down, depressed, or hopeless: more than half the days 3. Trouble falling or staying asleep, or sleeping too much: not at all 4. Feeling tired or having little energy: more than half the days 5. Poor appetite or overeating: several days 6. Feeling bad about yourself - or that you are a failure or have let yourself or your family down: several days 7. Trouble concentrating on things, such as reading the newspaper or watching television: several days 8. Moving or speaking so slowly that other people could have noticed. Or the opposite - being so fidgety or restless that you have been moving around a lot more than usual: not at all 9. Thoughts that you would be better off or of hurting yourself in some way: not at all Total score: 9 Depression Screening Interpretation: Positive Depression Screening Follow-up: Existing condition Depression Screening Done: Yes 80730 - PHQ-9 Billing: Yes Source: Developed by Drs. Deep Salguero, Marixa Aranda, Damon Foster and colleagues, with an educational mary from [email or web address]. Thrive Questionnaire Date Thrive assessed: 06/23/24 I am a: Patient What is your living situation today?: I have a place to live, but I am worried about losing it in the future Within the past 12 months, did the food you bought not last and you didn't have the money to get more?: Never true Within the past 12 months, did you worry whether your food would run out before you got money to buy more?: Never true Do you have trouble paying for medicines?: No Do you have trouble getting transportation to medical appointments?: No Do you have trouble paying your heating and electricity bill?: No Do you have trouble taking care of your child, family member or friend?: No Do you have trouble with day-to-day activities such as bathing, preparing meals, shopping, managing finances, etc.?: Yes Are you currently unemployed and looking for a job?: No Are you interested in more education?: No Please select the resources that you would like help with: None Currently or been in a relationship where the following occur: No concerns reported THRIVE Score: 1 AUDIT C Alcohol Use Questionnaire (AUDIT-C) 1. How often do you have a drink containing alcohol?: Never 2. How many drinks containing alcohol do you have on a typical day when you are drinking?: 1 or 2 (0) 3. How often do you have six or more drinks on one occasion?: Never Total Score: 0 CHEPE-7 AMB Questionnaire CHEPE-7 Date CHEPE - 7 assessed: 06/23/24 Feeling nervous, anxious, or on edge: 0 = Not at all Not being able to stop or control worryin = Not at all Worrying too much about different things: 0 = Not at all Trouble relaxin = Not at all Being so restless that it is hard to sit still: 0 = Not at all Becoming easily annoyed or irritable: 0 = Not at all Feeling afraid as if something awful might happen: 0 = Not at all Total CHEPE-7 score (0-4 normal; 5-9 mild; 10-14 moderate; 15-21 severe): 0 Source: Developed by Drs. Deep Salguero, Marixa Aranda, Damon Foster and colleagues, with an educational mary from [email or web address]. Review of Systems Const Denies body aches, Denies chills, Denies fever(s), Denies headache(s) and Denies poor appetite Eyes Reports no additional complaints ENT Denies dysphagia, Denies dizziness, Denies headache(s) and Denies odynophagia Card Denies chest pain, Denies syncope, Denies edema, Denies irregular heart rhythm, Reports leg edema, Denies lightheadedness and Denies dyspnea Resp Denies cough and Denies dyspnea GI Denies abdominal pain, Denies constipation, Denies dysphagia, Reports diarrhea, Denies nausea, Denies odynophagia and Denies vomiting Reports hematuria Musc Reports no additional complaints and Denies abnormal gait Skin/Breast Reports system reviewed and no additional complaints, except as documented Neuro Denies abnormal gait, Denies dizziness, Denies syncope and Denies headache(s) Psych Reports no additional complaints Physical exam (Primary Care) Vital Signs: Last Vital Signs Pulse 96 06/23/24 10:48 BP 116/64 06/23/24 10:48 Pulse Ox 95 06/23/24 10:48 Oxygen Delivery Method Room Air 06/23/24 10:48 Tobacco/Smoking Status: Tobacco use Status Tobacco use date assessed 06/23/24 06/23/24 10:53 Patient Tobacco Use Status Former Tobacco user 06/23/24 10:53 Tobacco use type Cigarette 06/23/24 10:53 PHQ-9: PHQ-9 Score PHQ-9: Total score 9 06/23/24 12:12 Depression Screening Interpretation: Positive Depression Screening Follow-up: Existing condition Thrive Assessment: Date of Thrive Assessment Date Thrive assessed 06/23/24 06/23/24 10:53 Currently or been in a relationship where the following occur: No concerns reported Const General: cooperative, healthy appearing, comfortable and no acute distress Orientation/consciousness: patient oriented x3 HENMT Head: Yes normocephalic Ears: hearing grossly normal bilaterally General nose exam: Normal external nose present Eyes General: appearance normal, both eyes and all related structures Conjunctivae: conjunctivae normal Neck Neck: Yes full ROM and Yes no lymphadenopathy Resp Effort & Inspection: normal respiratory effort Auscultation: clear to auscultation bilaterally, no crackles, no rales, no rhonchi and no wheezes Cardio Rate: regular rate Rhythm: regular rhythm Other: Blood noted in alex bag Skin General skin exam: no rashes or lesions noted Neuro General: patient oriented x3 Gait exam (Neuro): Normal gait present Extrem Other: Skin thickening and discoloration of bilateral lower extremities with intact pulses and sensation. Presence of thick curd-like substance in between toes in the left foot. 2+ pitting edema on left lower extremity General: Yes normal to inspection, Yes full ROM and No edema Psych Affect: normal affect Attitude: cooperative Insight: Good insight present (Psych) Judgement: Good judgement present (Psych) Results AMB Urinalysis Dipstick UR Leukocytes Negative Last Edit by KIRSTIE Vergara on 06/23/24 12:12 70 Josefa/uL Alison Montero 06/23/24 12:12 UR Nitrite Negative Last Edit by KIRSTIE Vergara on 06/23/24 12:12 UR Urobilinogen Normal Last Edit by KIRSTIE Vergara on 06/23/24 12:12 UR Protein 30 Last Edit by KIRSTIE Vergara on 06/23/24 12:12 UR Ph 6.0 Last Edit by KIRSTIE Vergara on 06/23/24 12:12 UR Blood Moderate Last Edit by KIRSTIE Vergara on 06/23/24 12:12 200 [place]/uL Alison Montero 06/23/24 12:12 UR Specific [place] 1.030 Last Edit by KIRSTIE Vergara on 06/23/24 12:12 UR Ketone Negative Last Edit by KIRSTIE Vergara on 06/23/24 12:12 UR Bilirubin Negative Last Edit by KIRSTIE Vergara on 06/23/24 12:12 UR Glucose Negative Last Edit by KIRSTIE Vergara on 06/23/24 12:12 Results Reviewed Results Reviewed: Laboratory Last Values Urine pH (Clinic) 6.0 06/23/24 12:10 Specific [place] (Clinic) 1.030 06/23/24 12:10 Ur Protein (Clinic) 30 06/23/24 12:10 Ur Ketones (Clinic) Negative 06/23/24 12:10 Urine Blood (Clinic) Moderate 06/23/24 12:10 Urine Nitrite Negative 06/23/24 12:10 Urine Bilirubin (Clinic) Negative 06/23/24 12:10 Urobilinogen (Clinic) Normal 06/23/24 12:10 Leukocyte Esterase (Clinic) Negative 06/23/24 12:10 Urine Glucose (Clinic) Negative 06/23/24 12:10 Coding Level of Care Code Est Pt Level 4 (62749) Diagnoses Chronic pain syndrome G89.4 History of cirrhosis of liver Z87.19 Avascular necrosis of bone of left hip M87.052 Morbid obesity with BMI of 45.0-49.9, adult E66.01; Z68.42 DVT (deep venous thrombosis) I82.409 Hematuria R31.9 UTI (urinary tract infection) N39.0 Venous stasis dermatitis I87.2 Tinea pedis B35.3 Additional Codes PHQ-9 - 50080 - PHQ-9 Billing: Yes ([id number]) Assessment & Plan Assessment & Plan (1) Chronic pain syndrome: Code(s): G89.4 - Chronic pain syndrome Category: Medical Plan: Continue to follow with pain management. (2) History of cirrhosis of liver: Code(s): Z87.19 - Personal history of other diseases of the digestive system Category: Medical Plan: Joint management of liver disease and possible liver bypass with Dr. Sloan aims at reducing fluid retention. Patient has a appointment with waterproof coating machine tender tomorrow. (3) Avascular necrosis of bone of left hip: Code(s): M87.052 - Idiopathic aseptic necrosis of left femur Category: Medical Plan: Patient having avascular necrosis of the left hip which significantly limits his mobility. Patient is unable to stand without assistance and uses a wheelchair primarily for his motor transportation. Patient has upper extremity weakness due to deconditioning makes self propelling difficult. He would not be a good candidate for a walker, cane or wheelchair due to mobility issues. A power wheelchair would help the patient with both mobility in the ability to perform activities of daily living. Patient would also benefit from having the wheelchair elevate and tilt for transferring from chair to other surfaces. Continue to follow with pain management. (4) Morbid obesity with BMI of 45.0-49.9, adult: Code(s): E66.01 - Morbid (severe) obesity due to excess calories; Z68.42 - Body mass index [BMI] 45.0-49.9, adult Category: Medical Plan: Healthy diet and regular exercise is encouraged. (5) DVT (deep venous thrombosis): Code(s): I82.409 - Acute embolism and thrombosis of unspecified deep veins of unspecified lower extremity Category: Medical Plan: Patient was initially started on Eliquis 5 mg b.i.d. however patient reports he was told by inpatient Medicine at his last hospitalization to discontinue Eliquis likely due to the hematuria. We do not have verses notes to confirm this information. I have discussed this case with Dr. Shen recommended restarting Eliquis after hematuria resolves and follow up with Hematology (6) Hematuria: Code(s): R31.9 - Hematuria, unspecified Category: Medical Plan: For the management of the catheter malfunction and hematuria, a collaborative approach with visiting nurses to ensure proper catheter function is scheduled. Pending urological care from Dr. Fischer, restarting Eliquis will occur once bleeding resolves, facilitated by routine urine culture to rule out infection. (7) UTI (urinary tract infection): Code(s): N39.0 - Urinary tract infection, site not specified Category: Medical Plan: Continue on ciprofloxacin as prescribed (8) Venous stasis dermatitis: Code(s): I87.2 - Venous insufficiency (chronic) (peripheral) Category: Medical Plan: Addressing chronic dermatitis through compression therapy and leg elevation remains crucial, with management plans adjusted by hematology advice (9) Tinea pedis: Code(s): B35.3 - Tinea pedis Category: Medical Plan: Patient also having fungal infection in bilateral feet prescribed clotrimazole to be used twice daily. Plan This note was constructed using voice recognition software. While every effort has been made to ensure accuracy and account support rep, still areas may have been included sometimes these areas may affect the content or meeting of the given symptoms. Total time spent caring for the patient today was 30 minutes. This includes time spent before the visit reviewing the chart, time spent during the visit, and time spent after the visit and documentation. Patient was informed and verbally consented to the use of an ambient scribe for clinic note documentation during this visit. Orders: Orders AMB Urinalysis Dipstick Today Z13.9 - Encounter for screening, unspecified Urine Culture Today N39.0 - Urinary tract infection, site not specified Referrals Hematology & Oncology Referral I82.409 - Acute embolism and thrombosis of unspecified deep veins of unspecified lower extremity Medications: New apixaban (Eliquis) 5 mg PO BID 60 tabs 1RF [power wheelchair] As directed 1 ea 0RF E66.01 - Morbid (severe) obesity due to excess calories, G89.4 - Chronic pain syndrome, M87.052 - Idiopathic aseptic necrosis of left femur, Z68.42 - Body mass index [BMI] 45.0-49.9, adult clotrimazole 1% 1 appl topical BID 30 grams 0RF Discontinued ciprofloxacin HCl Discontinued Reason: Patient no longer taking 500 mg PO BID 5 days 10 tabs 0RF
--- OUTSIDE RECORDS SUMMARY | 2024-06-23 12:22 | XMS_ITS | Encounter Summary ---
Author Organization [facility] Address [id number] [place] [id number] Care Team Providers Care Management And Budget Analyst Name Role Phone Dalia Harmon Primary Care Provider [phone] Reason for Referral * Imaging (Routine) - Pending Review Specialty Diagnoses / Procedures Referred By Contac t Referred To Contact Cardiology Diagnoses 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) Procedures Transthoracic echocardiogram (TTE) complete with PRN contrast, bubble, strain, and 3D order panel TX TTE W 2D IMAGE COMPLETE W DOPPLER ECHO & COLOR FLOW DOPPLER ECHO TX EDUARDO 2D COMPLETE W/CONTRAST OR W & WO CONTRAST WITH DOPPLER Han Sloan DO [address] [address] Phone: tel: fax: [facility] Referral ID Status Reason Start Date Expiration Date V isits Requested Visits Authorized [id number] Pending Review 05/25/2024 05/25/2025 1 1 * Consultation (Routine) - Closed Specialty Diagnoses / Procedures Referred By Contac t Referred To Contact Interventional Radiology Diagnoses 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) Han Sloan DO [address] [address] Phone: tel: fax: [facility] [address] [place] [address] Phone: tel: Referral ID Status Reason Start Date Expiration Date V isits Requested Visits Authorized [id number] Closed Specialty Services Required 05/25/2024 05/25/2025 1 1 Encounter Details Date Type Department Care Team (Late st Contact Info) Description 05/25/2024 Telephone Gastroenterology - Midnight [address] [place] [phone] Han Sloan DO [address] [place] [address] Social History Tobacco Use Types Packs/Day Years Used Date Smoking Tobacco: Former Cigarettes Q uit: 04/21/2003 Smokeless Tobacco: Never Alcohol Use Standard Drinks/Week Comments No 0 (1 standard drink = 0.6 oz pur e alcohol) Interpersonal Safety Answer Date Record ed Physical Abuse 05/20/2024 Verbal Abuse 05/20/2024 Sex and Gender Information Value Date Recorded Sex Assigned at Male 02/26/2024 2:06 PM EST Legal Sex Male 6:01 PM EST Gender Identity Male 02/26/2024 2:06 PM EST Sexual Orientation Straight 02/26/2024 2: 06 PM EST documented as of this encounter Progress Notes * Katya Westfall MA - 05/25/2024 3:21 PM EST I have pended the referral for you to sign off on. * Cristiana Baires - 05/25/2024 8:01 AM EST ----- Message from Dianna Sloan DO sent at 05/25/2024 5:47 AM EST ----- Regarding: IR referral Hi, Could you please refer this patient to IR for TIPS evaluation? Diagnosis: Large-volume diuretic refractory ascites. Thank you. Please, also propose an echocardiogram for him to have done before the IR appointment to make sure that his heart will tolerate such procedure. Thank you. documented in this encounter Plan of Treatment Upcoming Encounters Date Type Department Care Team (Latest Contact Info) Description 06/24/2024 11:20 AM EST Office Visit Gastroenterology - Midnight [address] [place] [phone] Hna Sloan DO [address] [place] [address] 07/06/2024 1:00 PM EDT Appointment [facility] Interventional Radiology [address] [place] [phone] 08/12/2024 10:30 AM EDT Ancillary Procedure [facility] [address] [place] [phone] Scheduled Orders Name Type Priority Associated Diagnoses Order Schedule Transthoracic echocardiogram (TTE) complete with PRN contrast, bubble, strain, and 3D order panel Echocardiography Routine 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) 1 Occurrences starting 05/25/2024 until 05/25/2025 Scheduled Referrals Name Type Priority Associated Diagnoses Order Schedule Ambulatory referral to Interventional Radiology Outpatient Referral Routine 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) 1 Occurrences starting 05/25/2024 until 05/25/2025 documented as of this encounter Visit Diagnoses Diagnosis 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)- Primary documented in this encounter Care Teams Management And Budget Analyst Relationship Specialty Start Date End Date Dalia Harmon PA [address] [place] [address], [address] [place] [address] PCP - General 05/10/24 documented as of this encounter
--- OUTSIDE RECORDS SUMMARY | 2024-06-23 12:22 | XMS_ITS | Encounter Summary ---
Author Organization [facility] Address [id number] [place] [phone] Care Team Providers Care Supervisor Laboratory Animal Facility Name Role Phone Dalia Harmon Primary Care Provider [phone] Encounter Details Date Type Department Care Team (Late st Contact Info) Description 05/28/2024 Lab Requisition [facility] - Main Lab [address] [facility] [place] [address] Gerry Barksdale [address] [facility] [address] [place] [phone] Sepsis, unspecified organism (CMS/HCC) Social History Tobacco Use Types Packs/Day Years [...] PM EST documented as of this encounter Plan of Treatment Upcoming Encounters Date Type Department Care Team (Latest Contact Info) Description 06/24/2024 11:20 AM EST Office Visit Gastroenterology - [place] [address] [facility] [address] [place] [phone] Han Sloan DO 175 [facility] 200 [place] [address] 07/06/2024 1:00 PM EDT Appointment [facility] Interventional Radiology [address] [place] [phone] 08/12/2024 10:30 AM EDT Ancillary Procedure [facility] - [address] [place] [phone] documented as of this encounter Procedures Procedure Name Priority Date/Time Associated Diagnosis Comments COMPLETE BLOOD COUNT Routine 05/31/2024 8:09 AM EST Sepsis, unspecified organism (CMS/HCC) BASIC METABOLIC PANEL Routine 05/31/2024 8:09 AM EST Sepsis, unspecified organism (CMS/HCC) documented in this encounter Results * (ABNORMAL) Basic metabolic panel (05/31/2024 8:09 AM EST) Sodium 135 133 - 145 mmol/L LAB CHEMISTRY METHOD 05/31/2024 10:57 AM [facility] Potassium 3.9 3.5 - 5.5 mmol/L LAB CHEMISTRY METHOD 05/31/2024 10:57 AM [facility] Chloride 101 96 - 110 mmol/L LAB CHEMISTRY METHOD 05/31/2024 10:57 AM [facility] CO2 29 21 - 32 mmol/L LAB CHEMISTRY METHOD 05/31/2024 10:57 AM [facility] Anion Gap 5 3 - 11 LAB CHEMISTRY METHOD 05/31/2024 10:57 AM [facility] Glucose 116(H) 70 - 100 mg/dL LAB CHEMISTRY METHOD 05/31/2024 10:57 AM [facility] BUN 12 5 - 25 mg/dL LAB CHEMISTRY METHOD 05/31/2024 10:57 AM [facility] Creatinine 0.47(L) 0.70 - 1.30 mg/dL LAB CHEMISTRY METHOD 05/31/2024 10:57 AM [facility] eGFR 115 >=60 mL/min/1. 73m2 LAB CHEMISTRY METHOD 05/31/2024 10:57 AM [facility] Comment:Calculation based on the??Chronic Kidney Disease Epidemiology Collaboration (CKD-EPI) equation refit??without adjustment for race. BUN/Creatinine Ratio 25.5 LAB CHEMISTRY METHOD 05/31/2024 10:57 AM [facility] Calcium 8.2(L) 8.5 - 10.5 mg/dL LAB CHEMISTRY METHOD 05/31/2024 10:57 AM [facility] Blood Venous blood specimen / Unknown Venipuncture / Unknown 05/31/2024 8:09 AM EST 05/31/2024 9:54 AM EST Gerry Barksdale LAB BLOOD ORDERABLES Final Resul t [facility] [address] [place] [address], * (ABNORMAL) Complete blood count (05/31/2024 8:09 AM EST) WBC 5.3 4.8 - 10.8 K/mcL LAB HEMETOLOGY METHOD 05/31/2024 10:28 AM [facility] RBC 3.50(L) 4.50 - 5.50 M/mcL LAB HEMETOLOGY METHOD 05/31/2024 10:28 AM [facility] Hemoglobin 11.8(L) 13.5 - 17.5 g/dL LAB HEMETOLOGY METHOD 05/31/2024 10:28 AM [facility] Hematocrit 36.4(L) 42.0 - 54.0 % LAB HEMETOLOGY METHOD 05/31/2024 10:28 AM [facility] MCV 105.5(H) 79.0 - 98.0 FL LAB HEMETOLOGY METHOD 05/31/2024 10:28 AM EST [facility] MCH 34.2(H) 27.0 - 32.0 pcg LAB HEMETOLOGY METHOD 05/31/2024 10:28 AM [facility] MCHC 32.4 32.0 - 37.0 g/dL LAB HEMETOLOGY METHOD 05/31/2024 10:28 AM EST [facility] RDW 17.1(H) 11.0 - 15.0 % LAB HEMETOLOGY METHOD 05/31/2024 10:28 AM EST [facility] Platelets 149 130 - 400 K/mcL LAB HEMETOLOGY METHOD 05/31/2024 10:28 AM [facility] MPV 10.5 7.0 - 11.0 FL LAB HEMETOLOGY METHOD 05/31/2024 10:28 AM EST [facility] NRBC 0.0 <1.0 % LAB HEMETOLOGY METHOD 05/31/2024 10:28 AM [facility] NRBC Absolute 0.00 <0.10 K/mcL LAB HEMETOLOGY METHOD 05/31/2024 10:28 AM [facility] Blood Venous blood specimen / Unknown Venipuncture / Unknown 05/31/2024 8:09 AM EST 05/31/2024 9:53 AM EST Gerry Barksdale LAB BLOOD ORDERABLES Final Resul t [facility] [address] [place] [address], documented in this encounter Visit Diagnoses Diagnosis Sepsis, unspecified organism (CMS/HCC) documented in this encounter Care Teams Supervisor Laboratory Animal Facility Relationship Specialty Start Date End Date Dalia Harmon PA [address], [address] [place] [address] PCP - General 05/10/24 documented as of this encounter
--- OUTSIDE RECORDS SUMMARY | 2024-06-23 12:22 | XMS_ITS | Encounter Summary ---
Author Organization [facility] Address [address] [place] [phone] Care Team Providers Care Cushion Maker Hand Name Role Phone Dalia Harmon Primary Care Provider [phone] Encounter Details Date Type Department Care Team (Late st Contact Info) Description 03/12/[address] [facility] - Main Lab [address] [facility] [place] [address] Gerry Barksdale [address] [facility] [address] [place] [phone] Essential (primary) hypertension Social History Tobacco Use [...] 11:20 AM EST Office Visit Gastroenterology - [place] [address] [facility] [address] [place] [address] Han Sloan DO 175 [facility] 200 [place] [address] 07/06/2024 1:00 PM EDT Appointment [facility] Interventional Radiology [address] [place] [phone] 08/12/2024 10:30 AM EDT Ancillary Procedure [facility] - [facility] [address] [facility] [address] [place] [phone] documented as of this encounter Visit Diagnoses Diagnosis Essential (primary) hypertension Unspecified essential hypertension documented in this encounter Care Teams Cushion Maker Hand Relationship Specialty Start Date End Date Dalia Harmon PA [address] [facility], [address] [place] [address] PCP - General 05/10/24 documented as of this encounter
--- OUTSIDE RECORDS SUMMARY | 2024-06-23 12:22 | XMS_ITS | Clinical Summary ---
Author Organization [facility] Address [address] [place] [address] Care Team Providers Care Lead Manufacturing Technician Name Role Phone Dago Ferro MD Primary Care Provider [phone] Allergies No known active allergies Medications Medication [...] 2003 Shingrix-Zoster Vaccine (1 of 2) 01/24/2008 Pneumococcal Vaccine (2 of 2 - PCV) 03/23/2013 03/23/2012 Fall Risk Assessment 2023 Influenza Vaccine (#1) 2023 RSV Adult > 60+ Yrs or Pregn ant (1 - 1-dose 75+ series) 2033 Hepatitis B Vaccines Aged Out No long er eligible based on patient's age to complete this topic RSV Ped < 20 months Aged Out No longe r eligible based on patient's age to complete this topic Care Teams Lead Manufacturing Technician Relationship Specialty Start Date End Date Dago Ferro MD PCP - General Internal Medicine 03/23/19
--- OUTSIDE RECORDS SUMMARY | 2024-06-23 12:22 | XMS_ITS | Encounter Summary ---
Author Organization [facility] Address [address] [place] [phone] Care Team Providers Care Instrument Assembly Supervisor Name Role Phone Dalia Harmon Primary Care Provider [phone] Encounter Details Date Type Department Care Team (Late st Contact Info) Description 06/04/2024 Lab Requisition [facility] - Main Lab 299 [facility] [place] [address] Gerry Barksdale [address] [facility] [place] [address] [place] [phone] Sepsis, unspecified organism (CMS/HCC) Social History Tobacco [...] 11:20 AM EST Office Visit Gastroenterology - [place] [address] [facility] [address] [place] [phone] Han Sloan DO 175 [facility] 200 [place] [address] 07/06/2024 1:00 PM EDT Appointment [facility] Interventional Radiology [address] [place] [phone] 08/12/2024 10:30 AM EDT Ancillary Procedure [facility] - [address] [place] [phone] documented as of this encounter Procedures Procedure Name Priority Date/Time Associated Diagnosis Comments COMPLETE BLOOD COUNT Routine 06/07/2024 10:48 AM EST Sepsis, unspecified organism (CMS/HCC) BASIC METABOLIC PANEL Routine 06/07/2024 10:48 AM EST Sepsis, unspecified organism (CMS/HCC) documented in this encounter Results * (ABNORMAL) Basic metabolic panel (06/07/2024 10:48 AM EST) Sodium 137 133 - 145 mmol/L LAB CHEMISTRY METHOD 06/07/2024 12:53 PM [facility] Potassium 3.6 3.5 - 5.5 mmol/L LAB CHEMISTRY METHOD 06/07/2024 12:53 PM [facility] Chloride 103 96 - 110 mmol/L LAB CHEMISTRY METHOD 06/07/2024 12:53 PM [facility] CO2 25 21 - 32 mmol/L LAB CHEMISTRY METHOD 06/07/2024 12:53 PM [facility] Anion Gap 9 3 - 11 LAB CHEMISTRY METHOD 06/07/2024 12:53 PM [facility] Glucose 142(H) 70 - 100 mg/dL LAB CHEMISTRY METHOD 06/07/2024 12:53 PM [facility] BUN 9 5 - 25 mg/dL LAB CHEMISTRY METHOD 06/07/2024 12:53 PM [facility] Creatinine 0.58(L) 0.70 - 1.30 mg/dL LAB CHEMISTRY METHOD 06/07/2024 12:53 PM EST [facility] eGFR 108 >=60 mL/min/1. 73m2 LAB CHEMISTRY METHOD 06/07/2024 12:53 PM [facility] Comment:Calculation based on the??Chronic Kidney Disease Epidemiology Collaboration (CKD-EPI) equation refit??without adjustment for race. BUN/Creatinine Ratio 15.5 LAB CHEMISTRY METHOD 06/07/2024 12:53 PM [facility] Calcium 8.0(L) 8.5 - 10.5 mg/dL LAB CHEMISTRY METHOD 06/07/2024 12:53 PM [facility] Blood Venous blood specimen / Unknown Venipuncture / Unknown 06/07/2024 10:48 AM EST 06/07/2024 12:01 PM EST Gerry Barksdale LAB BLOOD ORDERABLES Final Resul t [facility] [address] [place] [address], * (ABNORMAL) Complete blood count (06/07/2024 10:48 AM EST) WBC 4.4(L) 4.8 - 10.8 K/mcL LAB HEMETOLOGY METHOD 06/07/2024 1:06 PM [facility] RBC 3.40(L) 4.50 - 5.50 M/mcL LAB HEMETOLOGY METHOD 06/07/2024 1:06 PM [facility] Hemoglobin 12.0(L) 13.5 - 17.5 g/dL LAB HEMETOLOGY METHOD 06/07/2024 1:06 PM [facility] Hematocrit 36.4(L) 42.0 - 54.0 % LAB HEMETOLOGY METHOD 06/07/2024 1:06 PM [facility] MCV 105.8(H) 79.0 - 98.0 FL LAB HEMETOLOGY METHOD 06/07/2024 1:06 PM EST [facility] MCH 34.9(H) 27.0 - 32.0 pcg LAB HEMETOLOGY METHOD 06/07/2024 1:06 PM [facility] MCHC 33.0 32.0 - 37.0 g/dL LAB HEMETOLOGY METHOD 06/07/2024 1:06 PM [facility] RDW 18.0(H) 11.0 - 15.0 % LAB HEMETOLOGY METHOD 06/07/2024 1:06 PM [facility] Platelets 108(L) 130 - 400 K/mcL LAB HEMETOLOGY METHOD 06/07/2024 1:06 PM [facility] MPV 10.7 7.0 - 11.0 FL LAB HEMETOLOGY METHOD 06/07/2024 1:06 PM [facility] NRBC 0.0 <1.0 % LAB HEMETOLOGY METHOD 06/07/2024 1:06 PM [facility] NRBC Absolute 0.00 <0.10 K/mcL LAB HEMETOLOGY METHOD 06/07/2024 1:06 PM [facility] Blood Venous blood specimen / Unknown Venipuncture / Unknown 06/07/2024 10:48 AM EST 06/07/2024 12:01 PM EST Gerry Barksdale LAB BLOOD ORDERABLES Final Resul t [facility] [address] [place] [address], documented in this encounter Visit Diagnoses Diagnosis Sepsis, unspecified organism (CMS/HCC) documented in this encounter Care Teams Instrument Assembly Supervisor Relationship Specialty Start Date End Date Dalia Harmon PA 2 [facility], [address] [place] [address] PCP - General 05/10/24 documented as of this encounter
--- OUTSIDE RECORDS SUMMARY | 2024-06-23 12:22 | XMS_ITS | Encounter Summary ---
Author Organization [facility] Address [address] [place] [id number] Care Team Providers Care Barker Operator Name Role Phone Dalia Harmon Primary Care Provider [phone] Reason for Visit * Reason Comments Blood in Urine Encounter Details Date Type Department Care Team (Late st Contact Info) Description 06/11/2024 10:01 PM EST - 06/12/2024 12:27 PM EST Emergency [facility] Emergency [address] [place] [phone] Barak Benjamin MD [address] [place] [address] Gross hematuria (Primary Dx); Tachycardia; Abnormal chest CT Discharge Disposition: Home or Self Care Social [...] PM EST documented as of this encounter Last Filed Vital Signs Vital Sign Reading Time Taken Comments Blood Pressure 101/89 06/12/2024 8:25 AM EST Pulse 100 06/12/2024 8:25 AM EST Temperature 37.6 ??C (99.7 ??F) 06/12/2024 3:09 AM ES T Respiratory Rate 24 06/12/2024 8:25 AM EST Oxygen Saturation 94% 06/12/2024 8:25 AM EST Inhaled Oxygen Concentration - - Weight - - Height - - Body Mass Index - - documented in this encounter Discharge Instructions * Discharge Instructions* GIORGI Lopez - 06/12/2024 9:41 AM EST Discussed you need to follow-up with your urologist and also liver specialist. You are likely goingto need a scheduled paracentesis to remove fluid from your abdomen within the next week or 2. There is question of possible small pneumonia versus nodule in the right lobe of the lung which youare being treated for with antibiotics. Return to the ER for high fevers, worsening symptoms or changes in breathing. * Attachments The following attachments cannot be sent through Care Everywhere. * Hematuria ([place]) documented in this encounter Medications at Time of Discharge albuterol 2.5 mg/0.5 mL solution for nebulization nebulizer solution Take 0.5 mL (2.5 mg total) by nebulization every 6 (six) hours if needed for shortness of breath. 02/18/2024 aspirin 81 mg EC tablet Take 1 tablet (81 mg total) by mouth 1 (one) time each day. cholecalciferol (VITAMIN D-3) 50 mcg (2,000 unit) tablet 1 tablet (2,000 Units total). 11/19/2011 furosemide (LASIX) 20 mg tablet Take 2 tablets in the morning at 8 AM and 1 tablet in afternoon at 3 PM 90 each 05/25/2024 naloxone (NARCAN) 4 mg/0.1 mL nasal spray Administer 1 each (4 mg total) into affected nostril(s). 02/03/2023 oxyBUTYnin XL (DITROPAN-XL) 5 mg 24 hr tablet Take 1 tablet (5 mg total) by mouth 1 (one) time each day. 06/03/2024 oxyCODONE (OXY-IR) 5 mg immediate release capsule Take 2 capsules (10 mg total) by mouth every 4 (four) hours if needed for severe pain. Max Daily Amount: 60 mg 15 capsule 03/02/2024 rosuvastatin (CRESTOR) 5 mg tablet Take 1 tablet (5 mg total) by mouth 1 (one) time each day. 03/25/2024 spironolactone (ALDACTONE) 100 mg tablet Take 1.5 tablets (150 mg total) by mouth 1 (one) time each day. 45 each 05/25/2024 5 zolpidem (AMBIEN) 10 mg tablet Take 1 tablet (10 mg total) by mouth at bedtime as needed. for insomnia apixaban (ELIQUIS) starter pack Take 2 tablets (10 mg total) by mouth 2 (two) times a day for 7 days. Then take 1 tablet (5 mg total) by mouth 2 (two) times a day. 74 tablet 05/25/2024 5 doxycycline (MONODOX) 100 mg capsule Take 1 capsule (100 mg total) by mouth 2 (two) times a day for 10 days. Take with at least 8 ounces (large glass) of water, do not lie down for 30 minutes after. Administer 2 hours before or after multivitamins, antacids, or other products containing polyvalent cations (i.e., calcium, iron, magnesium, selenium, zinc). 20 capsule 06/12/2024 5 levoFLOXacin (LEVAQUIN) 250 mg tablet Take 3 tablets (750 mg total) by mouth 1 (one) time each day for 7 days. 21 tablet 06/13/2024 5 documented as of this encounter Ordered Prescriptions Prescription Sig Dispense Quantity Refills Last Filled Start Date End Date levoFLOXacin (LEVAQUIN) 250 mg tablet Take 3 tablets (750 mg total) by mouth 1 (one) time each day for 7 days. 21 tablet 06/13/2024 5 doxycycline (MONODOX) 100 mg capsule Take 1 capsule (100 mg total) by mouth 2 (two) times a day for 10 days. Take with at least 8 ounces (large glass) of water, do not lie down for 30 minutes after. Administer 2 hours before or after multivitamins, antacids, or other products containing polyvalent cations (i.e., calcium, iron, magnesium, selenium, zinc). 20 capsule 06/12/2024 5 documented in this encounter Discharge Disposition Disposition Code Departure Means Destination Comment s Home or Self Care documented in this encounter Progress Notes * Anny Cotter RN - 06/12/2024 12:27 PM EST Spoke with pt re- + blood cultures Pt aware of results--he will return to ed Anny Cotter RN 06/13/24 1007 * GIORGI Duarte - 06/12/2024 12:27 PM EST Jonny Reed Received phone call from microbiology that patient had 3 positive blood cultures, 1 anaerobic, 2 aerobic, gram-negative bacilli growing out Pseudomonas I did attempt to contact both him and his alternate contact listed, his phone number was not connected and unable to leave a voicemail with the friend Will attempt again in the morning Patient was discharged on doxycycline, prescription for Levaquin has been sent to the pharmacy certified prosthetist/orthotist kelly, ED attending aware. Will attempt contact again in am. Cosigned by Black Key MD at 06/15/2024 3:20 AM EST * Deepak Katz RN - 06/11/2024 11:30 PM EST This RN assumed care of this patient at this time. Patient is alert and oriented to person place and time. Patient is resting in bed with equal and unlabored respirations. The bed is locked and in the lowest position. The call light is within reach. * Boom Correa RN - 06/11/2024 11:09 PM EST Old catheter removed with Gio PARK and new [address]. Initial clot came out followed by 125ml of bloody urine that became progressively clearer, no more clots visualized. Will monitor output and color to continue assessing patency. Boom Correa RN 06/11/24 9650 * Boom Correa RN - 06/11/2024 10:02 PM EST Pt biba from home. Pt has chronic alex, alex was changed today by aide. Since placed, has abnormal discomfort, first urine from new alex was dark red. Pain suprapubic area and lower back. Pt on Eliquis, hx of liver dx, hematomachrosis, copd, dm. * GIORGI Duarte - 06/11/2024 9:53 PM EST Emergency Medicine Note Patient Name: Jonny Reed Initial Evaluation: 06/11/2024 : 1960 Patient's PCP: GIORGI Hummel Emergency Physician: GIORGI Duarte History of Present Illness Chief Complaint: Chief Complaint Patient presents with Blood in Urine HPI: This is a 64-year-old male with past medical History of chronic back pain, chronic urinary retention, liver cirrhosis and hemochromatosis, right lower extremity DVT on Eliquis, anasarca, NICOLE on CPAP presenting for evaluation of catheter irritation and hematuria. Has had a chronic indwelling Alex catheter since February, had it changed yesterday and has had discomfort since, it was again changed today and patient began passing significant amount of blood clots, has not had significant urine output, just reports bright red blood since. ROS: I have performed a ROS with the pertinent positives and negatives documented in the history ofpresent illness. Previous History Past Medical History: Diagnosis Date Anxiety 04/13/2018 DX:Anxiety Benign colonic polyp 12/12/2014 DX:Benign colonic polyp Chronic allergic conjunctivitis 04/13/2018 DX:Chronic allergic conjunctivitis Cirrhosis of liver (CMS/HCC) 12/03/2017 DX:Cirrhosis of liver (HCC) Depression with anxiety 12/12/2014 DX:Depression with anxiety Diabetes mellitus type 2, uncomplicated (CMS/HCC) 12/12/2014 DX:Diabetes mellitus type 2, uncomplicated (HCC) Diverticulosis 05/29/2010 DX:Diverticulosis Erosive gastritis 10/13/2017 DX:Erosive gastritis Esophageal varices (CMS/HCC) 12/03/2017 DX:Esophageal varices (HCC) Hyperlipidemia 12/12/2014 DX:Hyperlipidemia Hypertension 12/14/2014 DX:Hypertension Insomnia 04/13/2018 DX:Insomnia Internal hemorrhoids 07/27/2010 DX:Internal hemorrhoids Iron overload syndrome 12/03/2017 DX:Iron overload syndrome Morbid obesity (CMS/HCC) 09/10/2017 DX:Morbid obesity (HCC) Obstructive sleep apnea 05/21/2016 DX:Obstructive sleep apnea Thoracic or lumbosacral neuritis or radiculitis 09/13/2011 DX:Thoracic or lumbosacral neuritis or radiculitis Vitamin D deficiency 07/27/2012 DX:Vitamin D deficiency Past Surgical History: Procedure Laterality Date BACK SURGERY PROCEDURE: HISTORICAL BACK SURGERY; COMMENT: spinal diskectomy, osteophytectomy x4 COLONOSCOPY N/A PROCEDURE: HISTORICAL COLONOSCOPY ESOPHAGOGASTRODUODENOSCOPY PROCEDURE: MI ESOPHAGOGASTRODUODENOSCOPY TRANSORAL DIAGNOSTIC OTHER SURGICAL HISTORY Right PROCEDURE: MI STAB PHLEBT VARICOSE VEINS 1 XTR > 20 INCS Social History Tobacco Use Smoking status: Former Current packs/day: 0.00 Types: Cigarettes Quit date: 04/21/2003 Years since quittin.1 Smokeless tobacco: Never Substance Use Topics Alcohol use: No Drug use: Yes Types: Marijuana/Cannabis Family History Problem Relation Name Age of Onset Other (Other: other) Father cancer from asbestos COPD Mother Drug abuse Brother x2 heroine overdose other brother had addiction to pain meds Liver disease Brother x2 Diabetes Sister 1 Heart attack Grandparent maternal Obesity Half-Sister Obesity Half-Brother is allergic to codeine, nystatin, and semaglutide. No current facility-administered medications on file prior to encounter. Current Outpatient Medications on File Prior to Encounter Medication Sig Dispense Refill albuterol 2.5 mg/0.5 mL solution for nebulization nebulizer solution Take 0.5 mL (2.5 mg total) by nebulization every 6 (six) hours if needed for shortness of breath. apixaban (ELIQUIS) starter pack Take 2 tablets (10 mg total) by mouth 2 (two) times a day for 7 days. Then take 1 tablet (5 mg total) by mouth 2 (two) times a day. 74 tablet 0 aspirin 81 mg EC tablet Take 1 tablet (81 mg total) by mouth 1 (one) time each day. cholecalciferol (VITAMIN D-3) 50 mcg (2,000 unit) tablet 1 tablet (2,000 Units total). furosemide (LASIX) 20 mg tablet Take 2 tablets in the morning at 8 AM and 1 tablet in afternoon at 3 PM 90 each 0 naloxone (NARCAN) 4 mg/0.1 mL nasal spray Administer 1 each (4 mg total) into affected nostril(s). oxyCODONE (OXY-IR) 5 mg immediate release capsule Take 2 capsules (10 mg total) by mouth every 4 (four) hours if needed for severe pain. Max Daily Amount: 60 mg 15 capsule 0 rosuvastatin (CRESTOR) 5 mg tablet Take 1 tablet (5 mg total) by mouth 1 (one) time each day. spironolactone (ALDACTONE) 100 mg tablet Take 1.5 tablets (150 mg total) by mouth 1 (one) time eachday. 45 each 0 zolpidem (AMBIEN) 10 mg tablet Take 1 tablet (10 mg total) by mouth at bedtime as needed. for insomnia Physical Exam ED Triage Vitals Temp Heart Rate Resp BP 06/11/24220506/11/24220506/11/24220506/11/242205 37.6 ??C (99.7 ??F) (!) 111 20 (!) 143/58 SpO2 Temp src Heart Rate Source Patient Position 06/11/242207 -- -- -- 94 % BP Location FiO2 (%) -- -- General: Chronically ill-appearing, somewhat disheveled lying on stretcher, engaged in conversationand exam HEENT: PERRL, EOMI, external ears and nose appear unremarkable, airway is patent Neck: Supple, full range of motion Chest: No increased respiratory effort or accessory muscle use lungs are clear Abdomen: Non-distended, Non-Tender : Mixed bright red/maroon blood with clots in Alex output Extremities: Normal ROM, No edema Skin: Warm and dry Neuro: Alert and oriented, no focal deficits Results Labs Reviewed BASIC METABOLIC PANEL - Abnormal Result Value Sodium 138 Potassium 4.4 Chloride 102 CO2 26 Anion Gap 10 Glucose 139 (*) BUN 12 Creatinine 0.80 eGFR 98 BUN/Creatinine Ratio 15.0 Calcium 8.7 CBC WITH AUTO DIFFERENTIAL - Abnormal WBC 5.0 RBC 3.60 (*) Hemoglobin 12.5 (*) Hematocrit 38.0 (*) MCV 107.0 (*) MCH 35.2 (*) MCHC 32.9 RDW 17.5 (*) Platelets 85 (*) MPV 10.4 NRBC 0.0 NRBC Absolute 0.00 Neutrophils Relative 93.8 Lymphocytes Relative 4.4 Monocytes Relative 1.4 Eosinophils Relative 0.0 Basophils Relative 0.2 Immature Granulocytes Relative 0.2 Neutrophils Absolute 4.65 Lymphocytes Absolute 0.22 (*) Monocytes Absolute 0.07 (*) Eosinophils Absolute 0.00 Basophils Absolute 0.01 Immature Granulocytes Absolute 0.01 URINALYSIS WITH REFLEX MICROSCOPIC AND CULTURE - Abnormal Specific [place] Urine 1.007 pH, Urine 6.0 Leukocytes, Urine Small (*) Nitrite, Urine Negative Protein, Urine Negative Glucose, Urine Negative Ketones, Urine Negative Urobilinogen, Urine 0.2 Bilirubin, Urine Negative Blood, Urine Large (*) RBC, Urine 156.5 (*) WBC, Urine 16.6 (*) Squamous Epithelial, Urine 9 Bacteria, Urine Negative Hyaline Casts, Urine 0.8 LACTATE - Abnormal Lactate 3.2 (*) PROTHROMBIN TIME WITH INR - Abnormal Protime 22.0 (*) INR 1.8 TROPONIN I HIGH SENSITIVITY - Normal High Sensitivity Troponin I 22 Narrative: High levels of biotin in samples may falsely decrease hsTroponin values. Use caution when interpreting hsTroponin results in patients taking biotin who exhibit renal impairment (eGFR <60) or in patients taking more than 20 mg/day of biotin. B-TYPE NATRIURETIC PEPTIDE - Normal BNP 95 CULTURE BLOOD Culture, Blood Culture in progress CULTURE BLOOD Culture, Blood Culture in progress CULTURE URINE CBC AND DIFFERENTIAL Narrative: The following orders were created for panel order CBC and differential. Procedure Abnormality Status --------- ------ CBC auto differential[[id number]] Abnormal Final result Please view results for these tests on the individual orders. URINALYSIS WITH REFLEX MICROSCOPIC AND CULTURE Narrative: The following orders were created for panel order Urinalysis with reflex microscopic and culture. Procedure Abnormality Status --------- ------ Urinalysis with reflex ...[[id number]] Abnormal Final result Pugh urine culture tube[[id number]] Final result Please view results for these tests on the individual orders. TROPONIN I HIGH SENSITIVITY Abnormal Labs Reviewed BASIC METABOLIC PANEL - Abnormal; Notable for the following components: Result Value Glucose 139 (*) All other components within normal limits CBC WITH AUTO DIFFERENTIAL - Abnormal; Notable for the following components: RBC 3.60 (*) Hemoglobin 12.5 (*) Hematocrit 38.0 (*) MCV 107.0 (*) MCH 35.2 (*) RDW 17.5 (*) Platelets 85 (*) Lymphocytes Absolute 0.22 (*) Monocytes Absolute 0.07 (*) All other components within normal limits URINALYSIS WITH REFLEX MICROSCOPIC AND CULTURE - Abnormal; Notable for the following components: Leukocytes, Urine Small (*) Blood, Urine Large (*) RBC, Urine 156.5 (*) WBC, Urine 16.6 (*) All other components within normal limits LACTATE - Abnormal; Notable for the following components: Lactate 3.2 (*) All other components within normal limits PROTHROMBIN TIME WITH INR - Abnormal; Notable for the following components: Protime 22.0 (*) All other components within normal limits CT Angio Chest wo and/or w Contrast Final Result A 1 cm mixed density nodular right lower lobe opacity indeterminate. Could be infectious, inflammatory or neoplastic. Follow-up chest CT is recommended in 3 months to assess stability. [id number] size left pleural effusion and trace right pleural effusion with mild subjacent atelectasis. Cardiomegaly. Mildly dilated main pulmonary artery indicating pulmonary arterial hypertension. Hepatic cirrhosis with ascites and splenomegaly. Please see CT abdomen/pelvis report for additional details. No evidence for pulmonary artery embolus. This document has been electronically signed by: Hernan Godwin MD on 06/12/2024 06:43:23 CT Abdomen Pelvis w Contrast (Results Pending) I have discussed the incidental/abnormal imaging and/or lab abnormalities with the patient and haveinstructed them the need for further evaluation and workup with their primary care doctor. I have provided the patient with a paper copy of the abnormality. The laboratory results, imaging results and other diagnostic exam results were reviewed in the EMR. EKG Interpretation Critical Care Time None ? Medical Decision Making Medications lidocaine 2 % mucosal jelly (11 mL urethral Given 06/11/24 2246) sodium chloride 0.9 % irrigation solution 3,000 mL (3,000 mL irrigation Given 06/12/24 0029) oxyCODONE (ROXICODONE) immediate release tablet 10 mg (10 mg oral Given 06/12/24 0421) sodium chloride 0.9 % flush 10 mL (10 mL intravenous Given 06/12/24 0614) iopamidoL (ISOVUE-370) 370 mg iodine /mL (76 %) injection 90 mL (95 mL intravenous Given 06/12/24 0613) ED Course as of 06/12/24 0701 Sat Jun 12, 2024 0326 Patient's hematuria has cleared with CBI however he is becoming increasingly tachycardic. Remains afebrile, not hypoxic, blood pressure of 117/63. Urinalysis is still pending. Patient placed on shelter monitor, EKG, blood cultures and lactic to be obtained. [LQ] 0409 Patient remains persistently tachycardic to high 110s to 120s. He has increased respiratory effort but is not hypoxic. 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 He was discharged home yesterday and was only home for 7 hours before representing to the emergency department. I do believe he is high risk for PE despite the fact that he is currently anticoagulated on Eliquis. He doeshave a recent history of right lower extremity DVT. CT chest abdomen pelvis to be obtained. Will evaluate for any pyelonephritis, intra-abdominal pathology to explain his tachycardia. [LQ] 0411 Urinalysis has large blood, 156 RBCs, 16 WBCs and small leuk esterase. [LQ] 0439 Patient's lactic elevated at 3.2, recent hospitalization it was elevated 4.4, ultimately cleared to 1.8. He remains afebrile, is high risk for fluid overload given his history, will hold fluids for now given he has no leukocytosis and remains afebrile. [LQ] 0533 Heart rate currently 111, 92% on room air. [LQ] 0645 CTA of the chest does not have any evidence of PE. Does show a 1 cm mixed density nodule to the right lower lobe recommending follow-up CT in 3 months. There is a small to moderate size left pleural effusion and trace right pleural effusion with mild subadjacent atelectasis. CT abdomen pelvis is still pending. Heart rate has improved, currently 103. Respiratory rate of 18. [LQ] 0700 Signed out change of shift to [facility] pending CT abdomen pelvis and ultimate disposition. [LQ] ED Course User Index [LQ] GIORGI Duarte Clinical Impressions as of 06/12/24 0701 Gross hematuria Tachycardia 06/11/2024 11:53 PM patient seen and evaluated, vitals reviewed he is afebrile though tachycardic to111, blood pressure of 143/58, significant blood/clot output from his Alex. This was changed to a three-way for CBI. Lab work and urinalysis are pending. Procedures Procedures Diagnosis 1. Gross hematuria 2. Tachycardia CT Angio Chest wo and/or w Contrast CT Angio Chest wo and/or w Contrast Disposition Data Unavailable ED Prescriptions None Physician Attestation GIORGI Duarte 06/11/24 2354 GIORGI Duarte 06/12/24 0327 GIORGI Duarte 06/12/24 0548 GIORGI Duarte 06/12/24 0701 Cosigned by Ricco Hawkins MD at 06/12/2024 10:23 AM EST documented in this encounter Plan of Treatment Upcoming Encounters Date Type Department Care Team (Latest Contact Info) Description 06/24/2024 11:20 AM EST Office Visit Gastroenterology - [place] [address] [place] [phone] Han Sloan, DO [address] [place] [address] 07/06/2024 1:00 PM EDT Appointment [facility] Interventional Radiology [address] [place] [phone] 08/12/2024 10:30 AM EDT Ancillary Procedure [facility] [address] [place] [id number] documented as of this encounter Procedures Procedure Name Priority Date/Time Associated Diagnosis Comments ECG ANNOTATED 06/14/2024 TROPONIN I HIGH SENSITIVITY STAT 06/12/2024 6:[address] ABDOMEN PELVIS W CONTRAST STAT 06/12/2024 6:[address] ANGIO CHEST WO AND/OR W CONTRAST STAT 06/12/2024 6:28 AM EST Tachycardia TROPONIN I HIGH SENSITIVITY STAT 06/12/2024 5:19 AM EST PROTHROMBIN TIME WITH INR STAT 06/12/2024 5:19 AM EST B-TYPE NATRIURETIC PEPTIDE STAT 06/12/2024 5:19 AM EST ECG 12-LEAD STAT 06/12/2024 3:57 AM EST BLOOD CULTURE PATHOGENS BY PCR Routine 06/12/2024 3:44 AM EST CULTURE BLOOD STAT 06/12/2024 3:44 AM EST CULTURE BLOOD STAT 06/12/2024 3:40 AM EST LACTATE STAT 06/12/2024 3:40 AM EST URINALYSIS WITH REFLEX MICROSCOPIC AND CULTURE STAT 06/12/2024 1:15 AM EST PUGH URINE CULTURE TUBE STAT 06/12/2024 1:15 AM EST URINALYSIS WITH REFLEX MICROSCOPIC AND CULTURE STAT 06/12/2024 1:15 AM EST CULTURE URINE STAT 06/12/2024 1:15 AM EST CBC WITH AUTO DIFFERENTIAL STAT 06/11/2024 11:14 PM EST CBC AND DIFFERENTIAL STAT 06/11/2024 11:14 PM EST BASIC METABOLIC PANEL STAT 06/11/2024 11:14 PM EST documented in this encounter Results * ECG-Annotated (06/14/2024) us Provider Onbase MD ECG ORDERABLES Final Result * Troponin I high sensitivity (06/12/2024 6:44 AM EST) High Sensitivity Troponin I 17 <=79 ng/L LAB CHEMISTRY METHOD 06/12/2024 7:31 AM EST [facility] Blood Venous blood specimen / Unknown Venipuncture / Unknown 06/12/2024 6:44 AM EST 06/12/2024 6:58 AM EST Narrative [facility] - 06/12/2024 7:31 AM EST High levels of biotin in samples may falsely decrease hsTroponin values. ??Use caution when interpreting hsTroponin results in patients taking biotin who exhibit renal impairment (eGFR <60) or in patients taking more than 20 mg/day of biotin. us Nayeli [facility] LAB BLOOD ORDERABLES Final Resu lt [facility] [address] [place] [address], [place] [phone] * CT Abdomen Pelvis w Contrast (06/12/2024 6:28 AM EST) Anatomical Region Laterality Modality Body Computed Tomogra phy 06/12/2024 7:06 AM EST Impressions 06/12/2024 7:06 AM EST Impression: Cirrhotic liver with portal hypertension including [id number] volume ascites, splenomegaly and varices. No apparent bowel obstruction. No clear explanation for hematuria. If persistent, follow-up dedicated CT urogram suggested. Decompressed urinary bladder with Alex catheter limiting detail. Findings suggesting panniculitis. Other findings as noted. This document has been electronically signed by: Jose Underwood MD on 06/12/2024 07:06:20 Narrative 06/12/2024 7:06 AM EST INDICATION: pain, hematuria CT abdomen and pelvis with contrast Comparison: CT - CT ANGIO CHEST WO AND OR W CONTRAST - 06/12/24 06:15 EST US - US ABD LIMITED - 02/26/24 19:13 EST Findings: Lower chest detailed separately. Cirrhotic liver with moderate to large volume ascites. No focal liver lesion evident. No opaque gallstones or biliary dilatation. Mildly atrophic pancreas without focal abnormality. Duodenal diverticulum distal segment 2 adjacent to the pancreatic head. Splenomegaly with spleen 16.8 cm in length. No focal abnormality. Perisplenic varices. No adrenal gland enlargement. No nephrolithiasis or hydronephrosis. Symmetric renal enhancement. Bowel detail limited. No apparent obstruction or transition zone. Mild stool burden. No apparent diverticulitis. Normal appendix. Normal caliber aorta. Moderate plaque. No dissection. Plaque without high-grade stenosis suggested of the renal arteries. Moderate appearing stenoses of the proximal celiac trunk and severe appearing stenosis of the SMA. Detail limited on none CTA technique. MELI not well delineated. Patent portal vein , dilated portal vein with flow direction not assessed. No pathologic adenopathy. Urinary bladder decompressed with Alex catheter. Generalized lumbar spondylosis. Severe arthritic changes left hip as sequela of osteonecrosis. Moderate degenerative arthritis on the left. Mild anasarca. Additional subcutaneous fat stranding and skin thickening of the lower anterior abdominal wall suggesting panniculitis. Small fat containing inguinal hernias. Procedure Note Jose Underwood MD - 06/12/2024 INDICATION: pain, hematuria CT abdomen and pelvis with contrast Comparison: CT - CT ANGIO CHEST WO AND OR W CONTRAST - 06/12/24 06:15 EST US - US ABD LIMITED - 02/26/24 19:13 EST Findings: Lower chest detailed separately. Cirrhotic liver with moderate to large volume ascites. No focal liver lesion evident. No opaque gallstones or biliary dilatation. Mildly atrophic pancreas without focal abnormality. Duodenaldiverticulum distal segment 2 adjacent to the pancreatic head. Splenomegaly with spleen 16.8 cm in length. No focal abnormality. Perisplenic varices. No adrenal gland enlargement. No nephrolithiasis or hydronephrosis. Symmetric renal enhancement. Bowel detail limited. No apparent obstruction or transition zone. Mild stool burden. No apparent diverticulitis. Normal appendix. Normal caliber aorta. Moderate plaque. No dissection. Plaque without high-grade stenosis suggested of the renal arteries. Moderate appearing stenoses of the proximal celiac trunk and severe appearing stenosis of the SMA. Detail limited on none CTA technique. MELI not well delineated. Patent portal vein , dilated portal vein with flow direction notassessed. No pathologic adenopathy. Urinary bladder decompressed with Alex catheter. Generalized lumbar spondylosis. Severe arthritic changes left hip as sequela of osteonecrosis. Moderate degenerative arthritis on the left. Mild anasarca. Additional subcutaneous fat stranding and skin thickening of the lower anterior abdominal wall suggesting panniculitis. Small fat containing inguinal hernias. IMPRESSION: Impression: Cirrhotic liver with portal hypertension including agduxykf-sf-njmvt volume ascites, splenomegaly and varices. No apparent bowel obstruction. No clear explanation for hematuria. If persistent, follow-up dedicatedCT urogram suggested. Decompressed urinary bladder with Alex catheter limiting detail. Findings suggesting panniculitis. Other findings as noted. This document has been electronically signed by: Jose Underwood MD on 06/12/2024 07:06:[address] PROCEDURES Final Result * CT Angio Chest wo and/or w Contrast (06/12/2024 6:28 AM EST) Anatomical Region Laterality Modality Body Computed Tomogra phy 06/12/2024 6:43 AM EST Impressions 06/12/2024 6:43 AM EST A 1 cm mixed density nodular right lower lobe opacity indeterminate. Could be infectious, inflammatory or neoplastic. Follow-up chest CT is recommended in 3 months to assess stability. Afwbb-oz-ipynutnh size left pleural effusion and trace right pleural effusion with mild subjacent atelectasis. Cardiomegaly. Mildly dilated main pulmonary artery indicating pulmonary arterial hypertension. Hepatic cirrhosis with ascites and splenomegaly. Please see CT abdomen/pelvis report for additional details. No evidence for pulmonary artery embolus. This document has been electronically signed by: Hernan Godwin MD on 06/12/2024 06:43:23 Narrative 06/12/2024 6:43 AM EST INDICATION: tachycardia, sob, recent dvt CT angiography chest with contrast. 3D Postprocessing. Comparison: None Findings: The main pulmonary artery is mildly dilated at 3.2 cm. I do not see evidence for subsegmental or larger pulmonary artery embolus. Atherosclerotic calcifications in the thoracic aorta in the coronary arteries. Mild cardiomegaly. No enlarged mediastinal lymph nodes. Partial visualization of the upper abdomen demonstrates a nodular liver contour and moderate volume of ascites. Splenomegaly. Pslhy-nk-vkqkycog size left pleural effusion and trace right pleural effusion. Subjacent airspace opacities most likely atelectasis. There is a 1 cm mixed density right lower lobe nodular opacity on series 6, image 38/61. Mild emphysematous changes. Spondylotic changes. Procedure Note Hernan Godwin - 06/12/2024 INDICATION: tachycardia, sob, recent dvt CT angiography chest with contrast. 3D Postprocessing. Comparison: None Findings: The main pulmonary artery is mildly dilated at 3.2 cm. I do not see evidence for subsegmental or larger pulmonary artery embolus. Atherosclerotic calcifications in the thoracic aorta in the coronary arteries. Mild cardiomegaly. No enlarged mediastinal lymph nodes.Partial visualization of the upper abdomen demonstrates a nodular liver contour and moderate volume of ascites. Splenomegaly. Abkuo-mu-pphtxvbd size left pleural effusion and trace right pleural effusion. Subjacent airspace opacities most likely atelectasis. There suzanne 1 cm mixed density right lower lobe nodular opacity on series 6, image 38/61. Mild emphysematous changes. Spondylotic changes. IMPRESSION: A 1 cm mixed density nodular right lower lobe opacity indeterminate.Could be infectious, inflammatory or neoplastic. Follow-up chest CT is recommended in 3 months to assess stability. Yvuos-rw-wrikcehd size left pleural effusion and trace right pleural effusion with mild subjacent atelectasis. Cardiomegaly. Mildly dilated main pulmonary artery indicating pulmonary arterial hypertension. Hepatic cirrhosis with ascites and splenomegaly. Please see CT abdomen/pelvis report for additional details. No evidence for pulmonary artery embolus. This document has been electronically signed by: Hernan Godwin MD on 06/12/2024 06:43:[address] PROCEDURES Final Result * (ABNORMAL) Prothrombin time with INR (06/12/2024 5:19 AM EST) [facility] Protime 22.0(H) 10.6 - 13.9 sec LAB COAGULATION METHOD 06/12/2024 5:38 AM EST [facility] INR 1.8 LAB COAGULATION METHOD 06/12/2024 5:38 AM EST [facility] Blood Venous blood specimen / Unknown Venipuncture / Unknown 06/12/2024 5:19 AM EST 06/12/2024 5:22 AM EST Nayeli RAND LAB BLOOD ORDERABLES Final Resu lt Performing Organization Address [facility]/ZIP Co de Phone Number [facility] [address] [place] [address], [place] [phone] * B-type natriuretic peptide (06/12/2024 5:19 AM EST) [facility] BNP 95 <=100 pcg/mL LAB CHEMISTRY METHOD 06/12/2024 6:10 AM EST [facility] Blood Venous blood specimen / Unknown Venipuncture / Unknown 06/12/2024 5:19 AM EST 06/12/2024 5:22 AM EST Nayeli RAND LAB BLOOD ORDERABLES Final Resu lt Performing Organization Address City/[facility]/ZIP Co de Phone Number [facility] [address] [place] [address], [place] [phone] * Troponin I high sensitivity (06/12/2024 5:19 AM EST) Pathologist [facility] [place] High Sensitivity Troponin I 22 <=79 ng/L LAB CHEMISTRY METHOD 06/12/2024 5:56 AM EST [facility] Blood Venous blood specimen / Unknown Venipuncture / Unknown 06/12/2024 5:19 AM EST 06/12/2024 5:22 AM EST Narrative [facility] - 06/12/2024 5:56 AM EST High levels of biotin in samples may falsely decrease hsTroponin values. ??Use caution when interpreting hsTroponin results in patients taking biotin who exhibit renal impairment (eGFR <60) or in patients taking more than 20 mg/day of biotin. us Nayeli RAND LAB BLOOD ORDERABLES Final Resu lt Performing Organization Address City/[facility]/ZIP Co de Phone Number [facility] [address] [place] [address], [place] [phone] * ECG 12 lead (06/12/2024 3:57 AM EST) [facility] Ventricular Rate ECG 118 BPM GEMUSE Atrial Rate 119 BPM GEMUSE QRS Duration 124 ms GEMUSE Q-T Interval 348 ms GEMUSE QTc 487 ms GEMUSE R Aristes -36 degrees GEMUSE T Aristes 35 degrees GEMUSE ECG Interpretation Sinus tachycardia with premature ventricular or aberrantly conducted complexes Left axis deviation Right bundle branch block Septal infarct , age undetermined Abnormal ECG When compared with ECG of 19-MAY-2024 17:11, Premature ventricular contraction are now present T wave inversion no longer evident in Anterior leads Confirmed by TO GAITAN ([id number]) on 06/12/2024 3:33:10 PM GEMUSE 06/12/2024 3:57 AM EST 06/12/2024 3:33 PM EST us Nayeli RAND ECG ORDERABLES Final Result Performing Organization Address City/[facility]/ZIP Co de Phone Number GEMUSE * (ABNORMAL) Blood culture pathogens molecular study (06/12/2024 3:44 AM EST) Pathologist [facility] [place] Pseudomonas aeruginosa Detected (A) Not Detected LAB MICROBIOLOGY METHOD 06/13/2024 7:45 AM EST [facility] Blood Venous blood specimen / Unknown Venipuncture / Unknown 06/12/2024 3:44 AM EST 06/12/2024 3:51 AM EST Nayeli RAND LAB MICROBIOLOGY - GENERAL ORDE RABLES Final Result [facility] [address] [place] [address], [place] [phone] * (ABNORMAL) Blood Culture, Peripheral Draw #2 (06/12/2024 3:44 AM EST) [facility] Culture, Blood Pseudomonas aeruginosa(AA) SAVANNAH 06/16/2024 8:10 AM EST [facility] Comment: The organism value for this result has been updated. These results have been appended to the previously preliminary verified report. This is an edited result. Previous organism was Gram negative bacilli on 06/14/2024 at 1009 EST. Gram Stain Result Aerobic and Anaerobic bottles Gram negative bacilli(AA) 06/16/2024 8:10 AM EST [facility] Comment:This is an appended report. These results have been appended to a previously preliminary verified report. Blood Venous blood specimen / Unknown Venipuncture / Unknown 06/12/2024 3:44 AM EST 06/12/2024 3:51 AM EST Narrative Organism Antibiotic Method Susceptibility Pseudomonas aeruginosa Ceftazidime SAVANNAH 16 ug/ml: Resistant Pseudomonas aeruginosa Meropenem SAVANNAH 1 ug/ml: Susceptible Pseudomonas aeruginosa Ciprofloxacin SAVANNAH 0.25 ug/ml: Susceptible Pseudomonas aeruginosa Levofloxacin SAVANNAH 0.5 ug/ml: Susceptible Pseudomonas aeruginosa Cefepime DISK DIFFUSION Susceptible Pseudomonas aeruginosa Piperacillin/Tazobactam DISK DI FFUSION Intermediate Nayeli RAND LAB MICROBIOLOGY - GENERAL ORDE RABLES Final Result Performing Organization Address [facility]/ZIP Co de Phone Number [facility] [address] [place] [address], * (ABNORMAL) Lactate (06/12/2024 3:40 AM EST) Lactate 3.2(HH) 0.4 - 2.0 mmol/L LAB CHEMISTRY METHOD 06/12/2024 4:30 AM EST [facility] Blood Venous blood specimen / Unknown Venipuncture / Unknown 06/12/2024 3:40 AM EST 06/12/2024 3:51 AM EST us Nayeli RAND LAB BLOOD ORDERABLES Final Resu lt Performing Organization Address [facility]/ZIP Co de Phone Number [facility] [address] [place] [address], * (ABNORMAL) Blood Culture, Peripheral Draw #1 (06/12/2024 3:40 AM EST) [facility] Culture, Blood Pseudomonas aeruginosa(AA) SAVANNAH 06/16/2024 8:10 AM EST [facility] Comment: The organism value for this result has been updated. These results have been appended to the previously preliminary verified report. This is an edited result. Previous organism was Gram negative bacilli on 06/14/2024 at 1012 EST. Gram Stain Result Aerobic bottle Gram negative bacilli(AA) 06/16/2024 8:10 AM EST [facility] Comment:This is an appended report. These results have been appended to a previously preliminary verified report. Blood Venous blood specimen / Unknown Venipuncture / Unknown 06/12/2024 3:40 AM EST 06/12/2024 3:51 AM EST Ketty [facility] - 06/16/2024 8:10 AM EST For susceptibilities refer to culture on 06/12/24 at 0344. us Nayeli RAND LAB MICROBIOLOGY - GENERAL ORDE RABLES Final Result [facility] [address] [place] [address], [place] [phone] * (ABNORMAL) Culture urine (06/12/2024 1:15 AM EST) Culture, Urine >100,000 CFU/mL Pseudomonas aeruginosa(A) SAVANNAH 06/15/2024 9:00 AM EST [facility] Comment: This is an edited result. Previous organism was Pseudomonas aeruginosa presumptive on 06/13/2024 at 1048 EST. Urine Urine specimen obtained by clean catch procedure / Unknown Non-blood Collection / Unknown 06/12/2024 1:15 AM EST 06/12/2024 3:41 AM EST Narrative Organism Antibiotic Method Susceptibility Pseudomonas aeruginosa Ceftazidime SAVANNAH 16 ug/ml: Resistant Pseudomonas aeruginosa Meropenem SAVANNAH 1 ug/ml: Susceptible Pseudomonas aeruginosa Amikacin SAVANNAH 4 ug/ml: Susceptible Pseudomonas aeruginosa Ciprofloxacin SAVANNAH 0.25 ug/ml: Susceptible Pseudomonas aeruginosa Levofloxacin SAVANNAH 0.5 ug/ml: Susceptible Pseudomonas aeruginosa Amikacin DISK DIFFUSION Pseudomonas aeruginosa Cefepime DISK DIFFUSION Susceptible Pseudomonas aeruginosa Ceftazidime DISK DIFFUSION Pseudomonas aeruginosa Ciprofloxacin DISK DIFFUSION Pseudomonas aeruginosa Levofloxacin DISK DIFFUSION Pseudomonas aeruginosa Meropenem DISK DIFFUSION Pseudomonas aeruginosa Piperacillin/Tazobactam DISK DI FFUSION Susceptible Pseudomonas aeruginosa Tobramycin DISK DIFFUSION Nayeli RAND LAB MICROBIOLOGY - GENERAL ORDE RABJUANI Final Result [facility] [address] [place] [address], [place] [phone] * Pugh urine culture tube (06/12/2024 1:15 AM EST) Pathologist [facility] [place] Extra Tube Hold for add-ons. 06/12/2024 4:01 AM EST [facility] Comment:Auto resulted. Urine Urine specimen obtained by clean catch procedure / Unknown Non-blood Collection / Unknown 06/12/2024 1:15 AM EST 06/12/2024 2:59 AM EST us Nayeli RAND LAB URINE ORDERABLES Final Resu lt [facility] [address] [place] [address], [place] [phone] * (ABNORMAL) Urinalysis with reflex microscopic and culture (06/12/2024 1:15 AM EST) Specific [place] Urine 1.007 1.003 - 1.030 LAB URINALYSIS - AUTOMATED METHOD 06/12/2024 3:41 AM [facility] pH, Urine 6.0 5.0 - 8.0 pH LAB URINALYSIS - AUTOMATED METHOD 06/12/2024 3:41 AM [facility] Leukocytes, Urine Small(A) Negative LAB URINALYSIS - AUTOMATED METHOD 06/12/2024 3:41 AM [facility] Nitrite, Urine Negative Negative LAB URINALYSIS - AUTOMATED METHOD 06/12/2024 3:41 AM [facility] Protein, Urine Negative <=Trace mg/dL LAB URINALYSIS - AUTOMATED METHOD 06/12/2024 3:41 AM [facility] Glucose, Urine Negative Negative mg/dL LAB URINALYSIS - AUTOMATED METHOD 06/12/2024 3:41 AM [facility] Ketones, Urine Negative Negative mg/dL LAB URINALYSIS - AUTOMATED METHOD 06/12/2024 3:41 AM [facility] Urobilinogen, Urine 0.2 0.2 - 1.0 mg/dL LAB URINALYSIS - AUTOMATED METHOD 06/12/2024 3:41 AM [facility] Bilirubin, Urine Negative Negative LAB URINALYSIS - AUTOMATED METHOD 06/12/2024 3:41 AM [facility] Blood, Urine Large(A) Negative LAB URINALYSIS - AUTOMATED METHOD 06/12/2024 3:41 AM [facility] RBC, Urine 156.5(H) 0 - 4 /HPF LAB URINALYSIS - AUTOMATED METHOD 06/12/2024 3:41 AM [facility] WBC, Urine 16.6(H) 0 - 4 /HPF LAB URINALYSIS - AUTOMATED METHOD 06/12/2024 3:41 AM [facility] Squamous Epithelial, Urine 9 0 - 60 /LPF LAB URINALYSIS - AUTOMATED METHOD 06/12/2024 3:41 AM [facility] Bacteria, Urine Negative Negative /HPF LAB URINALYSIS - AUTOMATED METHOD 06/12/2024 3:41 AM [facility] Hyaline Casts, Urine 0.8 0 - 3 /LPF LAB URINALYSIS - AUTOMATED METHOD 06/12/2024 3:41 AM [facility] Urine Urine specimen obtained by clean catch procedure / Unknown Non-blood Collection / Unknown 06/12/2024 1:15 AM EST 06/12/2024 2:59 AM EST us Nayeli RAND LAB URINE ORDERABLES Final Resu lt [facility] [address] [place] [address], * (ABNORMAL) CBC auto differential (06/11/2024 11:14 PM EST) WBC 5.0 4.8 - 10.8 K/mcL LAB HEMETOLOGY METHOD 06/11/2024 11:55 PM [facility] RBC 3.60(L) 4.50 - 5.50 M/mcL LAB HEMETOLOGY METHOD 06/11/2024 11:55 PM [facility] Hemoglobin 12.5(L) 13.5 - 17.5 g/dL LAB HEMETOLOGY METHOD 06/11/2024 11:55 PM [facility] Hematocrit 38.0(L) 42.0 - 54.0 % LAB HEMETOLOGY METHOD 06/11/2024 11:55 PM [facility] MCV 107.0(H) 79.0 - 98.0 FL LAB HEMETOLOGY METHOD 06/11/2024 11:55 PM [facility] MCH 35.2(H) 27.0 - 32.0 pcg LAB HEMETOLOGY METHOD 06/11/2024 11:55 PM [facility] MCHC 32.9 32.0 - 37.0 g/dL LAB HEMETOLOGY METHOD 06/11/2024 11:55 PM [facility] RDW 17.5(H) 11.0 - 15.0 % LAB HEMETOLOGY METHOD 06/11/2024 11:55 PM [facility] Platelets 85(L) 130 - 400 K/mcL LAB HEMETOLOGY METHOD 06/11/2024 11:55 PM [facility] Comment:reviewed by slide MPV 10.4 7.0 - 11.0 FL LAB HEMETOLOGY METHOD 06/11/2024 11:55 PM [facility] NRBC 0.0 <1.0 % LAB HEMETOLOGY METHOD 06/11/2024 11:55 PM [facility] NRBC Absolute 0.00 <0.10 K/mcL LAB HEMETOLOGY METHOD 06/11/2024 11:55 PM [facility] Neutrophils Relative 93.8 % LAB HEMETOLOGY METHOD 06/11/2024 11:55 PM [facility] Lymphocytes Relative 4.4 % LAB HEMETOLOGY METHOD 06/11/2024 11:55 PM [facility] Monocytes Relative 1.4 % LAB HEMETOLOGY METHOD 06/11/2024 11:55 PM [facility] Eosinophils Relative 0.0 % LAB HEMETOLOGY METHOD 06/11/2024 11:55 PM EST [facility] Basophils Relative 0.2 % LAB HEMETOLOGY METHOD 06/11/2024 11:55 PM [facility] Immature Granulocytes Relative 0.2 % LAB HEMETOLOGY METHOD 06/11/2024 11:55 PM [facility] Neutrophils Absolute 4.65 1.50 - 7.00 K/mcL LAB HEMETOLOGY METHOD 06/11/2024 11:55 PM EST [facility] Lymphocytes Absolute 0.22(L) 1.00 - 5.00 K/mcL LAB HEMETOLOGY METHOD 06/11/2024 11:55 PM [facility] Monocytes Absolute 0.07(L) 0.20 - 1.00 K/mcL LAB HEMETOLOGY METHOD 06/11/2024 11:55 PM [facility] Eosinophils Absolute 0.00 0.00 - 0.50 K/mcL LAB HEMETOLOGY METHOD 06/11/2024 11:55 PM EST [facility] Basophils Absolute 0.01 0.00 - 0.20 K/mcL LAB HEMETOLOGY METHOD 06/11/2024 11:55 PM [facility] Immature Granulocytes Absolute 0.01 0.00 - 0.03 K/mcL LAB HEMETOLOGY METHOD 06/11/2024 11:55 PM [facility] Blood Venous blood specimen / Unknown Venipuncture / Unknown 06/11/2024 11:14 PM EST 06/11/2024 11:24 PM EST us Emily Singh DO LAB BLOOD ORDERABLES Berenice l Result [facility] [address] [place] [address], [place] [phone] * (ABNORMAL) Basic metabolic panel (06/11/2024 11:14 PM EST) Sodium 138 133 - 145 mmol/L LAB CHEMISTRY METHOD 06/12/2024 12:11 AM [facility] Potassium 4.4 3.5 - 5.5 mmol/L LAB CHEMISTRY METHOD 06/12/2024 12:11 AM [facility] Chloride 102 96 - 110 mmol/L LAB CHEMISTRY METHOD 06/12/2024 12:11 AM [facility] CO2 26 21 - 32 mmol/L LAB CHEMISTRY METHOD 06/12/2024 12:11 AM [facility] Anion Gap 10 3 - 11 LAB CHEMISTRY METHOD 06/12/2024 12:11 AM [facility] Glucose 139(H) 70 - 100 mg/dL LAB CHEMISTRY METHOD 06/12/2024 12:11 AM [facility] BUN 12 5 - 25 mg/dL LAB CHEMISTRY METHOD 06/12/2024 12:11 AM [facility] Creatinine 0.80 0.70 - 1.30 mg/dL LAB CHEMISTRY METHOD 06/12/2024 12:11 AM [facility] eGFR 98 >=60 mL/min/1. 73m2 LAB CHEMISTRY METHOD 06/12/2024 12:11 AM [facility] Comment:Calculation based on the??Chronic Kidney Disease Epidemiology Collaboration (CKD-EPI) equation refit??without adjustment for race. BUN/Creatinine Ratio 15.0 LAB CHEMISTRY METHOD 06/12/2024 12:11 AM [facility] Calcium 8.7 8.5 - 10.5 mg/dL LAB CHEMISTRY METHOD 06/12/2024 12:11 AM [facility] Blood Venous blood specimen / Unknown Venipuncture / Unknown 06/11/2024 11:14 PM EST 06/11/2024 11:24 PM EST us Emily Singh DO LAB BLOOD ORDERABLES Berenice l Result [facility] [address] [place] [address], documented in this encounter Visit Diagnoses Diagnosis Gross hematuria- Primary Tachycardia Unspecified tachycardia Abnormal chest CT Nonspecific (abnormal) findings on radiological and other examination of other intrathoracic organs documented in this encounter Administered Medications Inactive Administered Medications - up to 3 most recent administrations Medication Order MAR Action Action Date Dose Rate Site iopamidoL (ISOVUE-370) 370 mg iodine /mL (76 %) injection 90 mL 90 mL, intravenous, Once in imaging, Starting on 06/12/24 at 0608, For 1 dose Given 06/12/2024 6:13 AM EST 95 mL lidocaine 2 % mucosal jelly urethral, Once, On Fri06/11/24 at 2241, For 1 dose Given 06/11/2024 10:46 PM EST 11 mL oxyCODONE (ROXICODONE) immediate release tablet 10 mg 10 mg, oral, Once, On 06/12/24 at 0410, For 1 dose Given 06/12/2024 4:21 AM EST 10 mg sodium chloride 0.9 % flush 10 mL 10 mL, intravenous, Once, On 06/12/24 at 0609, For 1 dose Given 06/12/2024 6:14 AM EST 10 mL sodium chloride 0.9 % irrigation solution 3,000 mL 3,000 mL, irrigation, Once, On Fri06/11/24 at 2332, For 1 dose Given 06/12/2024 12:29 AM EST 3,000 mL documented in this encounter Active and Recently Administered Medications Times are shown in EST. Scheduled Medication Order 06/10/2024 06/11/2024 06/12/2024 iopamidoL (ISOVUE-370) 370 mg iodine /mL (76 %) injection 90 mL (COMPLETED) 90 mL, intravenous, Once in imaging, Starting on 06/12/24 at 0608, For 1 dose 0613 (Given - Provid er: Elijah Castillo) lidocaine 2 % mucosal jelly (COMPLETED) urethral, Once, On 06/11/24 at 2241, For 1 dose 2246 (Given - Provider: Marcellus Orellana RN) oxyCODONE (ROXICODONE) immediate release tablet 10 mg (COMPLETED) 10 mg, oral, Once, On 06/12/24 at 0410, For 1 dose 0421 (Given - Provid er: Deepak Katz, VIVIAN) sodium chloride 0.9 % flush 10 mL (COMPLETED) 10 mL, intravenous, Once, On 06/12/24 at 0609, For 1 dose 0614 (Given - Provid er: Elijah Castillo) sodium chloride 0.9 % irrigation solution 3,000 mL (COMPLETED) 3,000 mL, irrigation, Once, On 06/11/24 at 2332, For 1 dose 0029 (Given - Provid er: Deepak Katz, VIVIAN) documented in this encounter Care Teams Barker Operator Relationship Specialty Start Date End Date Dalia Harmon PA [address] [place] [address], [address] [place] [address] PCP - General 05/10/24 documented as of this encounter
--- OUTSIDE RECORDS SUMMARY | 2024-06-23 12:22 | XMS_ITS | Encounter Summary ---
Author Organization [facility] Address [address] [place] [phone] Care Team Providers Care Terrazzo Journeyman Name Role Phone Dalia Harmon Primary Care Provider [phone] Reason for Visit * Reason Onset Date Comments provider call back 06/14/2024 Encounter Details Date Type Department Care Team (Late st Contact Info) Description 06/14/2024 Telephone Gastroenterology - [place] [address] [place] [address] Han Sloan DO [address] [place] [address] provider call back Social History Tobacco Use Types Packs/Day Years Used Date Smoking Tobacco: Former Cigarettes Q uit: 04/21/2003 Smokeless Tobacco: Never Alcohol Use Standard Drinks/Week Comments No 0 (1 standard drink = 0.6 oz pur e alcohol) Interpersonal Safety Answer Date Record ed Physical Abuse 06/14/2024 Verbal Abuse 06/14/2024 Sex and Gender Information Value Date Recorded Sex Assigned at Male 02/26/2024 2:06 PM EST Legal Sex Male 6:01 PM EST Gender Identity Male 02/26/2024 2:06 PM EST Sexual Orientation Straight 02/26/2024 2: 06 PM EST documented as of this encounter Functional Status * Are you deaf or do you have serious difficulty hearing? Answer Date of Assessment Author No 06/14/2024 1:37 PM EST Yuni Valdez RN * Are you blind or do you have serious difficulty seeing, even when wearing glasses? Answer Date of Assessment Author No 06/14/2024 1:37 PM Yuni Oneill RN * Do you have serious difficulty walking or climbing stairs? Answer Date of Assessment Author Yes 06/14/2024 1:37 PM Yuni Oneill RN * Do you have serious difficulty dressing or bathing? Answer Date of Assessment Author Yes 06/14/2024 1:37 PM Yuni Oneill RN * Because of a physical, mental, or emotional condition, do you have serious difficulty doing errandsalone such as visiting the doctor? Answer Date of Assessment Author No 06/14/2024 1:37 PM Yuni Oneill RN documented as of this encounter Mental Status * Because of a physical, mental, or emotional condition, do you have serious difficulty concentrating, remembering, or making decisions? (5 years old or older) Answer Entry Date Author No 06/14/2024 1:37 PM Yuni Oneill RN documented in this encounter Progress Notes * Tesha Swartz - 06/14/2024 9:31 AM EST Patient calling to inform Dr. Sloan that he is in the hospital [facility] for sepsis in the blood, has been admitted, but does not have a room, patient is having another parencentis and ultra sound, please advise documented in this encounter Plan of Treatment Upcoming Encounters Date Type Department Care Team (Latest Contact Info) Description 06/24/2024 11:20 AM EST Office Visit Gastroenterology - [place] 175 [facility] [address] [phone] Han Sloan DO 175 [facility] 200 [place] [address] 07/06/2024 1:00 PM EDT Appointment [facility] Interventional Radiology [address] [place] [phone] 08/12/2024 10:30 AM EDT Ancillary Procedure [facility] [address] [facility] [address] [place] [phone] documented as of this encounter Visit Diagnoses Not on filedocumented in this encounter Care Teams Terrazzo Journeyman Relationship Specialty Start Date End Date Dalia Harmon PA [address] [place] [address], [address] [place] [address] PCP - General 05/10/24 documented as of this encounter
--- OUTSIDE RECORDS SUMMARY | 2024-06-23 12:22 | XMS_ITS | Continuity of Care Document ---
Author Organization [employer] Address [address] [place] [address] Care Team Providers Care [facility] Name Role Phone HIM [facility] Primary Care Provider [phone] Assessment Encounter Date Assessment Date Assessment LastModified by Organization Details LastModified Time 06/10/2024 06/10/2024 I have reviewed and agree with the assessment and plan as documented by the raw mill operator. I provided real-time medical direction for this encounter and was immediately available to provide additional phone-based assistance as needed. HPI: 64M presenting with malfunctioning catheter, leaking. No other symptoms noted. Was recently tested for UTI and was negative. VSS. Exam otherwise unremarkable per the raw mill operator. Able to reinsert catheter to have appropriate drainage of urine without leaking. Impression/Plan - Catheter leaking, fixed. Pt to follow up routinely. We discussed the diagnostic uncertainty of home visits and the risk associated with this. In this case, the patient and I felt this to be an acceptable and reasonable amount of risk given the benefit of avoiding an ED visit. We discussed the need to seek care urgently/emergent ly in the setting of any new or worsening serious symptoms, particularly weakness, dizziness, fever, chills, CP, SOB, worsening diarrhea, nausea, vomiting or any other concerns. paysola Not available 06/10/2024 21:05:55 Plan of Treatment Reminders Order Date Submit [...] Name and Address Organization Details Recorded Time 24748 semagluti de medicatio n Not available Not available Not available 03/18/2024 [facility] 18:27:38 95683 nystatin medicatio n Not available Not available Not available 06/10/2024 7597 RxNorm Not Available [facility] - production 5 20:32:41 [id number] codeine medicatio n Not available Not available Not available 06/10/2024 2670 RxNorm Not Available [facility] - production 5 20:32:41 Medications Name Sig Start Date Stop Date [...] Available No t Available Vitals Date Recorded Heart rate Oxygen saturation Oxygen saturation in Arterial blood by Pulse oximetry Body temperature Respiratory rate Systolic blood pressure Diastolic blood pressure Provider Name and Address Organization Details Last Updated DateTime 5 74 /min 96 % 96 % 97.9 [degF] 16 /min 118 mm[Hg] 62 mm[Hg] Not Available [facility] - production 20:56:09 Social History None recorded. Functional Status None recorded. Mental Status None recorded. Family History Nothing Reported. Medical History No medical history recorded. Past Encounters Encounter ID Performer Location Encounter Start Date Encounter Closed Date Diagnosis/Indication Diagnosis SNOMED-CT Code Diagnosis ICD10 Code Diagnosis Note [id number] Yasmeen Redmond MD [facility] [address] [place] [phone] 06/10/2024 20:56:07 06/10/2024 21:35:04 Indwelling urethral urinary catheter in situ 693142312 Z96.0 Health Concerns Section Related Observation LastModified by Organization Detai ls LastModified Time None Recorded Concern Status LastModified by Organization Details LastModified Time None Recorded Payers Encounter Date Sequence Insurance Name Policy Number Policy Pan Covered Member ID Pan Member ID Guarantor Name 06/10/2024 1 [facility] - DOS ON OR AFTER 2022 - DUAL ELIGIBLE - SENIOR LIVING OPTIONS AND ONE CARE (MEDICARE REPLACEMENT/ADV ANTAGE - HMO) Jonny Reed [id number] Jonny Reed Notes Date Note Type Note Provider Name and Address Organization Details Recorded Time 06/10/2024 text/html [facility] Nurse Triage Notes (Elsie Sultana - RN): Reason For Request: pt has cathether leaking Chief Complaints: Urinary catheter/nephrost hilario tube problems PMH: Chronic Back Pain, Hypertension, Cirrhosis PMH Reviewed at 06/10/2024 - 20:32 Allergies Reviewed at 06/10/2024 - 20:32 Comments: Patient reporting alex catheter is leaking around tubing at insertion site that started 15 min ago. Last changed 2 days ago. Denies abdominal pain or hematuria. urine is yellow and clear. Reports slight burning. Has catheter in place since February. Was recently treated for UTI and cellulitis. Education provided on the response time and the member was advised to monitor reported s/s and seek emergency treatment if needed. ................. ................. ................. ................. ................. ................. ................. ................. ..... Museum Informatics Specialist Note From Harley Rodriguez: Dispatched to above address for catheter problems. On arrival patient reports he was discharged from rehab today, about 30 minutes ago noticed a small amount of leaking from Alex catheter, reports having a chronic catheter and frequent issues with them. Patients vital signs checked. On exam pad under patient near catheter soaked with urine not obviously displaced, no active leaking. [facility] [place], advised of patient complaints and exam findings. Catheter balloon drained 10ml sterile water, re-inflated, patient reported discomfort, catheter advanced and re-inflated without pain, urine moving in tubing, patient denies discomfort. [facility] advised of catheter troubleshooting, recommends home monitoring with follow up should leaking continue. Patient agrees with this plan. Patient has no additional questions or concerns at this time. SC8 clear. EOR. ................. ................. ................. ................. ................. ................. ................. ................. ..... [facility] Consulted: Yasmeen Redmond ................. ................. ................. ................. ................. ................. ................. ................. ..... Disposition: Fulfilled Yasmeen Redmond MD [address] [place] [address],[address] [facility], [place], [phone], [facility] - ANNE FRY 06/10/2024 21:28:25
--- OUTSIDE RECORDS SUMMARY | 2024-06-23 12:22 | XMS_ITS | Data Portability ---
Author Organization [employer] [employer] Address [address] [place] [phone] Care Team Providers Care Car Greaser Name Role Phone HIM [facility] OTHER [facility] Primary Care Provider [phone] Assessment Encounter Date Assessment Date Assessment LastModified [...] primary team [email or web address] Not available 03/18/2024 20:13:39 06/10/2024 06/10/2024 I have reviewed and agree with the assessment and plan as documented by the hot strip finisher. I provided real-time medical direction for this encounter and was immediately available to provide additional phone-based assistance as needed. HPI: 64M presenting with malfunctioning catheter, leaking. No other symptoms noted. Was recently tested for UTI and was negative. VSS. Exam otherwise unremarkable per the hot strip finisher. Able to reinsert catheter to have appropriate [...] other concerns. [email or web address] Not available 06/10/2024 21:05:55 06/11/2024 06/11/2024 As noted, we wer e called to see this patient regarding concerns of gross hematuria, suprapubic abd pain. 64 yo M h/o cirrhosis, on eliquis, chronic alex catheter insertion since February 2024, undergoing evaluation for gross hematuria and lower abd pain. Patient had an inst[facility] visit on 06/10 when alex catheter had leakage of nonbloody yellow urine around catheter and some discomfort in the penis. Note reviewed from 06/10 and per report the catheter balloon was deflated, catheter was advanced and reinflated without any further pain. This morning patient had a VNA visit and catheter was again adjusted (per patient and medic on scene report) and then had a 2nd VNA visit this afternoon at appx 4pm and a new alex catheter was placed and then patient has been reporting the gross hematuria since that event. Vitals reviewed. Evaluation in the field was performed by my hot strip finisher colleague, as noted above, I provided real-time direction and supervision for this visit. The medic evaluation revealed a pale patient with discomfort, photos reviewed, gross hematuria around penis and scotum and gross blood in the leg bag Impression: Gross hematuria Plan: Patient needs escalation to ED for several reasons: (1) on eliquis and may need new catheter placement with subsequent continuous bladder irrigation and observation; (2) history of cirrhosis and needs coags and platelets checked Disposition: To [facility] ED via 911. Patient is agreeable to plan. Expect call placed to ED We discussed the situation and I recommended referral to the emergency department. This was based on above concerns under Plan [email or web address] Not available 06/11/2024 22:20:54 Plan of Treatment Reminders Order Date Submit [...] Abnormal Flag Note LastModifiedBy Organization Detail LastModifiedTime 03/16/20 24 03/19/2024 URINE CULTU RE,CO MPREH ENSIV E urine culture,comp rehensive Final report Not Available [facility] ([facility]) [address] [facility], [place], [address], 03/19/2024 10:05:46 03/16/2003/19/2024 URINE CULTU RE,CO MPREH ENSIV E result 1 COMMEN T No growt h in 36 - 48 hours . Not Available [facility] ([facility]) [address] [facility], [place], [address], 03/19/2024 10:05:46 Result Notes None recorded. Medical Equipment None Reported. Allergies Allergen ID Allergen Name Allergen Category Reaction Reaction Severity Criticality Documentation Date Start Date Code Code System Note Provider Name and Address Organization Details Recorded Time 05548 semagluti de medicatio n Not available Not available Not available 03/18/2024 RxNorm Not Available [facility] [employer] 4 18:27:38 01236 nystatin medicatio n Not available Not available Not available 06/10/2024 7597 RxNorm Not Available [facility] [employer] 5 20:32:41 52420 codeine medicatio n Not available Not available Not available 06/10/2024 2670 RxNorm Not Available [facility] - [employer] 5 20:32:41 Medications Name Sig [...] cm 96 % 96 % 98 [degF] 056870 g 14 /min 77 /min 134 mm[Hg] 82 mm[Hg] Not Available [facility] 4 19:24:57 Date Recorded Body weight Oxygen saturation Oxygen saturation in Arterial blood by Pulse oximetry Respiratory rate Body temperature Heart rate Systolic blood pressure Diastolic blood pressure Provider Name and Address Organization Details Last Updated DateTime 5 451250. 28 g 97 % 97 % 16 /min 98.2 [degF] 86 /min 156 mm[Hg] 82 mm[Hg] Not Available [facility] [employer] 5 10:41:34 Date Recorded Body weight Body height Body temperature Oxygen saturation Oxygen saturation in Arterial blood by Pulse oximetry Respiratory rate Heart rate Systolic blood pressure Diastolic blood pressure Provider Name and Address Organization Details Last Updated DateTime 5 228972. 28 g 167.64 cm 98 [degF] 94 % 94 % 16 /min 87 /min 162 mm[Hg] 72 mm[Hg] Not Available [employer] [employer] 5 18:57:19 Date Recorded Heart rate Oxygen saturation Oxygen saturation in Arterial blood by Pulse oximetry Body temperature Respiratory rate Systolic blood pressure Diastolic blood pressure Provider Name and Address Organization Details Last Updated DateTime 5 74 /min 96 % 96 % 97.9 [degF] 16 /min 118 mm[Hg] 62 mm[Hg] Not Available [facility] - production 20:56:09 Date Recorded Body temperature Body height Oxygen saturation Oxygen saturation in Arterial blood by Pulse oximetry Heart rate Body weight Respiratory rate Systolic blood pressure Diastolic blood pressure Provider Name and Address Organization Details Last Updated DateTime 5 98.9 [degF] 165.1 cm 97 % 97 % 99 /min 444673. 584 g 20 /min 150 mm[Hg] 90 mm[Hg] Not Available [employer] [facility] [employer] 20:56:17 Social History None recorded. Functional Status None recorded. Mental Status None recorded. Family History Nothing Reported. Medical History No medical history recorded. Past Encounters Encounter ID Performer Location Encounter Start Date Encounter Closed Date Diagnosis/Indication Diagnosis SNOMED-CT Code Diagnosis ICD10 Code Diagnosis Note [id number] Aleksandar Manning MD [facility] - [facility] [address] [place] [phone] 03/16/2024 13:37:07 03/16/2024 16:05:19 Mechanical complication of urethral indwelling catheter 74516528 T83.098A [id number] Elvi [facility]reira MD [facility] [address] [place], [place] [phone] 03/18/2024 19:24:55 03/19/2024 15:31:31 Complication of urinary catheter 273675036 T83.9XXA [id number] [facility] [address] [place] [phone] 04/23/2024 10:41:31 04/23/2024 16:17:35 Complication of urinary catheter 210627572 T83.9XXA As noted, we were called to see this patient regarding concerns of malpositio n of alex catheter Evaluation in the field was performed by my hot strip finisher colleague, as noted above, I provided real-time direction and supervisio n for this visit. The evaluation revealed normal VS and simple disconnect ion, which the patient was not able to adequately visualize due to body habitus. Impression :Alex disconnect ion without any patient complicati ons Plan:Recon Prashant crawford [id number] Betsy Lopez MD [facility] [address] [place] [phone] 04/25/2024 18:57:17 04/26/2024 00:18:55 Complication of urinary catheter [id number] T83.9XXS As noted, we were called to see this patient regarding concerns of malfunctio vy urinary catheter. Evaluation in the field was performed by my hot strip finisher colleague, as noted above, I provided real-time [...] of any new or worsening serious symptoms. [id number] Yasmeen Redmond MD [facility] - [facility] [address] [place] [phone] 06/10/2024 20:56:07 06/10/2024 21:35:04 Indwelling urethral urinary catheter in situ 588639705 Z96.0 [id number] FRANSISCO POLANCO MD [facility] - [facility] [address] [place] [phone] 06/11/2024 20:56:11 06/12/2024 09:25:59 Jovi hematuria 653699431 R31.0 Health Concerns Section Related Observation LastModified by Organization Detai ls LastModified Time None Recorded Concern Status LastModified by Organization Details LastModified Time None Recorded Advance Directives Directive None Recorded Payers Encounter Date Sequence Insurance Name Policy Number Policy Pan Covered Member ID Pan Member ID Guarantor Name 03/18/2024 1 [facility] - DOS ON OR AFTER 2022 - DUAL ELIGIBLE - RETIREMENT OPTIONS AND ONE CARE (MEDICARE REPLACEMENT/ADV ANTAGE - HMO) Jonny Reed [id number] Jonny Reed 04/23/2024 1 [employer] [facility] - DOS ON OR AFTER 2022 - DUAL ELIGIBLE - RETIREMENT OPTIONS AND ONE CARE (MEDICARE REPLACEMENT/ADV ANTAGE - HMO) Jonny Alejandroes [id number] Jonny Reed 04/25/2024 1 [employer] - DOS ON OR AFTER 2022 - DUAL ELIGIBLE - RETIREMENT OPTIONS AND ONE CARE (MEDICARE REPLACEMENT/ADV ANTAGE - HMO) Ojnny Derek [id number] Jonny Reed 06/10/2024 1 [facility] - DOS ON OR AFTER 2022 - DUAL ELIGIBLE - RETIREMENT OPTIONS AND ONE CARE (MEDICARE REPLACEMENT/ADV ANTAGE - HMO) Jonny Alejandroes [id number] Jonny Alejandroes 06/11/2024 1 [facility] [employer] - DOS ON OR AFTER 2022 - DUAL ELIGIBLE - RETIREMENT OPTIONS AND ONE CARE (MEDICARE REPLACEMENT/ADV ANTAGE - HMO) Jonny Reed [id number] Jonny Burnett Reed Notes Date Note Type Note Provider [...] needed. [facility] - [...] ................... ................... ................... ................... ................... ................... ........ Ticket Manager Note From Esa Francisco: Patient alert and oriented seated in chair. Patient complains of leakage around urethra. Patient reports alex catheter inserted times two days ago by [facility] personnel. Patient reports he noticed urine leaking [...] the hospital. Sticker to secure tube applied. [facility] advises culture taken times two days ago currently negative for growth.Patient encouraged to monitor site, contact [facility] family member caretaker to help arrange urology referral, and call [facility] again if needed. Patient and caregiver demonstrates understanding of care and plan. Patient grateful for assistance. ................... ................... ................... ................... ................... ................... ................... ........ [facility] Consulted: Elvi Pereira ................... ................... ................... ................... ................... ................... ................... ........ Disposition: Fulfilled Elvi Pereira MD [address] [place] [address],[address], [place], [phone], [employer] 03/18/2024 20:14:22 04/23/2024 text/html [facility] Nurse Triage [...] PMH: Chronic Back Pain, Hypertension, Cirrhosis Comments: Furniture Repair Technician verified the name//address and phone number. Pt [...] ................... ................... ................... ................... ................... ................... ........ Ticket Manager Note From Hussein Grossman: Pt co alex cath disconnection from bag tube. Pt got up and it fell off. Pay can not see th area due to obesity and was unsure what had happened. Pt denies pain. Pt sts urine is sti voiding from catheter. Pt has no other complaints. Alex reconnected without issue. Pt education on signs indicating the ER. [facility] contacted and advised of resolution. ................... ................... ................... ................... ................... ................... ................... ........ [facility] Consulted: Justin Bustillo ................... ................... ................... ................... ................... ................... ................... ........ Disposition: Fulfilled Juan Antonio Bustillo MD [address] [facility],[address], [place], [phone], [employer] 04/23/2024 10:47:59 04/25/2024 text/html [facility] Nurse Triage [...] void, painful urination -hematuria Chief Complaints: Urinary catheter/nephrostom y tube problems PMH: Chronic Back Pain, Hypertension, Cirrhosis Comments: Furniture Repair Technician verified the Pt.'s name//address and phone number. Education provided on the response time and the Pt. was advised to monitor reported s/s and seek emergency treatment if needed. Pt reports having a catheter placed yesterday by [facility]NA services - Same is leaking around the penis - Denies bladder pain - Denies fever - Denies back - Alex catheter trouble shooting requested. ................... ................... ................... ................... ................... ................... ................... ........ Ticket Manager Note From Marcellus Mauro: This 64-year-old [...] questions and are agreeable to this plan. ................... ................... ................... ................... ................... ................... ................... ........ [facility] Consulted: Betsy Lopez ................... ................... ................... ................... ................... ................... ................... ........ Disposition: Barbara Lopez MD [address] [facility],[address], [place], [phone], [employer] 04/25/2024 20:46:05 06/10/2024 text/html [facility] Nurse Triage Notes (Elsie Sultana - VIVIAN): Reason For Request: pt has cathether leaking Chief Complaints: Urinary catheter/nephrostom y tube problems PMH: Chronic Back Pain, Hypertension, Cirrhosis PMH Reviewed at 06/10/2024:32 Allergies Reviewed at 06/10/2024:32 Comments: Patient reporting alex catheter is leaking [...] s/s and seek emergency treatment if needed. ................... ................... ................... ................... ................... ................... ................... ........ Ticket Manager Note From Harley Rodriguez: Dispatched to above [...] urine not obviously displaced, no active leaking. [facility] contacted, advised of patient complaints and exam findings. Catheter balloon drained 10ml sterile water, re-inflated, patient reported discomfort, catheter advanced and re-inflated without pain, urine moving in tubing, patient denies discomfort. [facility] advised of catheter troubleshooting, recommends home monitoring with follow up should leaking continue. Patient agrees with this plan. Patient has no additional questions or concerns at this time. SC8 clear. EOR. ................... ................... ................... ................... ................... ................... ................... ........ [facility] Consulted: Yasmeen Redmond ................... ................... ................... ................... ................... ................... ................... ........ Disposition: Fulfilled Yasmeen Redmond MD [address] [place] [address],[address], [place], [phone] [employer] [facility] 06/10/2024 21:28:25 06/11/2024 text/html [facility] Nurse Triage Notes (Elsie Sultana - RN): Reason For Request: Patient has cath problems, Urine and blood in the back, problems all morning with it. Chief Complaints: Urinary catheter/nephrostom y tube problems PMH: Chronic Back Pain, Hypertension, Cirrhosis PMH Reviewed at 06/11/2024 - 18:22 Allergies Reviewed at 06/11/2024 - 18:22 Comments: [facility], catheter changed during visit. Per sister patient was seen by visting nurse today who deflated and reinflated alex balloon. Alex then started leaking. Nurse replaced catheter today. Patient is having hematuria with only small urine output. Has not urinated since noon. Patient is having slight abdominal discomfort. Patient had a liter of soda today. d/c from rehab yesterday. RN advised patient to go to ER for possilble continuous bladder irrigation. patient sister would like to be evaluated first before going to ED. Red flags reviewed. Sister will call 911 if with worsening s/sx-NE FRANSISCO POLANCO MD [address] [facility],[address], [place], [phone], [facility] [employer] [employer] 06/11/2024 22:21:06
--- OUTSIDE RECORDS SUMMARY | 2024-06-23 12:22 | XMS_ITS | Encounter Summary ---
Author Organization [facility] Address [id number] [place] [id number] Care Team Providers Care Integration Solution Architect Name Role Phone Dalia Harmon Primary Care Provider [phone] Reason for Visit * Reason Comments Male Problem Patient was diagnose d with UTI 2 days ago and has been on antibiotic for 2 days. Patient has chronic indwelling urinary catheter, last time it was changed per EMS is 2 days ago. Leg Swelling BIBA, from home, sta ting that he has worsening bilateral leg edema. Patient denies PMHx of CHF but currently on Lasix. Patient was advised by his PCP to come to the ER for IV diuretic. * Auth/Cert (Routine) Specialty Diagnoses / Procedures Referred By Aliya harris Referred To Contact Diagnoses Severe sepsis (CMS/HCC) Procedures [facility] IP/OBS CARE INITIAL MODERATE LEVEL PER DAY . Rosaura Iglesias MD [address] [place] [id number] Phone: tel: fax: [facility] Emergency [address] [place] [address] Phone: tel: Referral ID Status Reason Start Date Expiration Date Visits Re quested Visits Authorized [id number] 1 1 Encounter Details Date Type Department Care Team (Latest Contact Info) Description 05/19/2024 3:40 PM EST - 05/25/2024 4:38 PM EST Hospital Encounter [facility] Medical Surgical Unit [address] [place] [address] Emily Singh DO [address] [place] [address] Rosaura Iglesias MD [address] [place] [address] Jose Cruz Cordon MD [address] [place] [address] Liang Reinoso MD [address] [place] [address] Bilateral leg edema (Primary Dx); Urinary tract infection without hematuria, site unspecified; Hepatic cirrhosis, unspecified hepatic cirrhosis type, unspecified whether ascites present (CMS/HCC); Cellulitis of left leg; Severe sepsis (CMS/HCC) Discharge Disposition: Detention Facility Social History Tobacco Use Types Packs/Day Years [...] Sign Reading Time Taken Comments Blood Pressure 115/60 05/25/2024 7:43 AM EST Pulse 85 05/25/2024 7:43 AM EST Temperature 36.5 ??C (97.7 ??F) 05/25/2024 7:43 AM ES T Respiratory Rate 18 05/25/2024 7:43 AM EST Oxygen Saturation 95% 05/25/2024 7:43 AM EST Inhaled Oxygen Concentration - - Weight 152 kg (335 lb 6.4 oz) 05/25/2024 5:00 AM EST Height 167.6 cm (5' 6 ) 05/20/2024 3:30 PM EST Body Mass Index 54.13 05/20/2024 3:30 PM EST documented in this encounter Discharge Summaries * Liang Reinoso MD - 05/25/2024 1:18 PM EST Images from the original note were not included. DISCHARGE SUMMARY Patient Information Jonny Gordon : 1960 [64 y.o.] Admitting Provider Rosaura Iglesias MD Discharge Provider Liang Reinoso MD, Liang Howard* Primary Care Physician GIORGI Hummel Admission Date 05/19/2024 Discharge Date 05/25/2024 Discharge disposition- rehab/snf Summary of Hospital Problems Primary Discharge Diagnosis: sepsis, UTI, cellulitis, lymphedema Hospital Course Summary Admission HPI from H&P per admitting physician/HUGO- Mr. Gordon is a 84-year-old male with PMH obesity, COPD, chronic lumbar pain on opioids, left hip avascular necrosis, diabetes mellitus type 2, dyslipidemia, liver cirrhosis, hemochromatosis amongst others seen today for complaint of lower extremity swelling. Patient reports that he was diagnosed recently with UTI and has been placed on ciprofloxacin for which she has been taking. He states he has2 days left. Has a chronic indwelling Alex which was also changed 2 days ago. He reports that he has had worsening lower extremity swelling but denies any chest pain, shortness of breath, vomiting, abdominal pain, diarrhea, adductive cough, fevers or chills. He was instructed by visiting nurses tocome into the ED for further diuresis. Vitals are as follows: Temperature of of 36.8, heart rate of 105, respiratory rate of 18, blood pressure of 129/63 and pulse ox of 92% on room air. Labs are notable for creatinine of 0.67, alk phos 153, lactic of 4.4, troponin of 7, 7, BNP of 40, white blood cell count of 12.3, hemoglobin of 13.3, hematocrit of 39.2 platelets of 116, INR is 1.4, UA showed many bacteria, elevated red blood cells, white blood cells, moderate leuk esterase and positive nitrates. Patient was given ceftriaxone, Lasix Zosyn and vancomycin in the ED. Patient will be transferred to the care of [facility] staff for further management of their sepsis, UTI, cellulitis. Brief Hospital course Sepsis due to urinary tract infection and bilateral leg cellulitis UTI in presence of indwelling Alex catheter Lactic acidosis -Presented with bilateral lower extremity swelling. Also found to have UTI based on UA. He was found to have lactic acidosis, tachycardia.During this admission WBC was elevated as well. -Treated with broad-spectrum IV antibiotics initially. Including vancomycin Zosyn and ceftriaxone,doxycycline. - Per ID recommendation on discharge plan is to switch to Augmentin twice daily and doxycycline twice daily to end on 06/02. Bilateral nonpitting leg edema Anasarca -Severe bilateral leg edema, probably due to underlying chronic right heart failure with sleep apnea -Great response to IV Lasix drip. Followed by aggressive IV Lasix dose of 40 mg every 6 hours. -Seen by antique furniture repairer; plan for discharge on increased dose of Lasix and spironolactone. Increase the Lasix from 40 mg to 60 mg daily. Increase the dose of spironolactone from 100 to 150 mg daily DVT-lower extremity venous duplex showed nonocclusive thrombus in right common femoral vein. Currently on full dose Lovenox and ultimately plan for Eliquis on discharge. On discharge plan for [id number] mg twice daily for 7 days followed by 5 mg twice daily liver cirrhosis Hemochromatosis -Continue with spironolactone and Lasix. Seen by Dr. Sloan. Outpatient follow-up Chronic urinary retention -Patient has chronic indwelling Alex catheter. Recommend outpatient follow-up with primary urologyat [facility] to consider external catheter versus suprapubic catheter Chronic back pain -Continue oxycodone as needed NICOLE -Continue CPAP at bedtime Morbid obesity BMI 56. Recommend weight loss measures Physical Exam at time of Discharge Temp (24hrs), Av.4 ??C (97.6 ??F), Min:36.3 ??C (97.3 ??F), Max:36.6 ??C (97.8 ??F) Body mass index is 54.13 kg/m??. No results found for: PTWT , PTHT Physical Exam General-patient appears comfortable, no acute distress, obese HEENT-NCAT Eyes-anicteric Cardiology-no significant murmur appreciated Respiratory-no significant wheezing appreciated abdomen-nontender nondistended Extremity-bilateral lower extremity edema noted. Legs are covered in Howard wrap Neurology-awake alert oriented to time place and person Skin-warm and dry Follow-Up Instructions and Recommendations -Needs outpatient follow-up with gastroenterology; there has been discussion of TIPS procedure. -Needs outpatient follow-up with urology; consideration of Alex catheter removal versus external catheter placement versus suprapubic catheter placement -With increased dose of Lasix and spironolactone recommend repeat BMP and electrolyte check in 1 week Discharge Medications Medication List TAKE these medications albuterol 2.5 mg/0.5 mL solution for nebulization nebulizer solution Take 0.5 mL (2.5 mg total) by nebulization every 6 (six) hours if needed for shortness of breath. amoxicillin-clavulanate 875-125 mg per tablet Commonly known as: AUGMENTIN Take 1 tablet by mouth 2 (two) times a day for 8 days. apixaban starter pack Commonly known as: ELIQUIS Take 2 tablets (10 mg total) by mouth 2 (two) times a day for 7 days. Then take 1 tablet (5 mg total) by mouth 2 (two) times a day. aspirin 81 mg EC tablet Take 1 tablet (81 mg total) by mouth 1 (one) time each day. cholecalciferol 50 mcg (2,000 unit) tablet Commonly known as: VITAMIN D-3 1 tablet (2,000 Units total). doxycycline 100 mg capsule Commonly known as: VIBRAMYCIN Take 1 capsule (100 mg total) by mouth 2 (two) times a day for 8 days. Take with at least 8 ounces (large glass) of water, do not lie down for 30 minutes after furosemide 20 mg tablet Commonly known as: LASIX Take 2 tablets in the morning at 8 AM and 1 tablet in afternoon at 3 PM naloxone 4 mg/0.1 mL nasal spray Commonly known as: NARCAN Administer 1 each (4 mg total) into affected nostril(s). oxyCODONE 5 mg immediate release capsule Commonly known as: OXY-IR Take 2 capsules (10 mg total) by mouth every 4 (four) hours if needed for severe pain. Max Daily Amount: 60 mg rosuvastatin 5 mg tablet Commonly known as: CRESTOR Take 1 tablet (5 mg total) by mouth 1 (one) time each day. spironolactone 100 mg tablet Commonly known as: ALDACTONE Take 1.5 tablets (150 mg total) by mouth 1 (one) time each day. zolpidem 10 mg tablet Commonly known as: AMBIEN Take 1 tablet (10 mg total) by mouth at bedtime as needed. for insomnia Lab Results Component Value Date GLUCOSE 123 (H) 05/25/2024 CALCIUM 8.1 (L) 05/25/2024 NA 134 05/25/2024 K 3.6 05/25/2024 CO2 33 (H) 05/25/2024 CL 94 (L) 05/25/2024 BUN 13 05/25/2024 CREATININE 0.57 (L) 05/25/2024 Lab Results Component Value Date WBC 6.8 05/25/2024 HGB 11.6 (L) 05/25/2024 HCT 34.7 (L) 05/25/2024 MCV 100.9 (H) 05/25/2024 PLT 129 (L) 05/25/2024 XR Chest 2 Views Result Date: 05/20/2024 PROCEDURE: PA and lateral radiographs of the chest. HISTORY: chest pain. COMPARISON: 09/23/2008. FINDINGS: There is a small left moderate layering left pleural effusion which is new compared with theprevious study. A small right pleural effusion seen on the previous study is no longer present. Heart size is normal. Atherosclerotic calcification of the aorta. No pneumothorax. Pulmonary vasculature appears normal. Degenerative changes of the spine and shoulders. Small-moderate left pleural effusion. -------- FINAL REPORT -------- Dictated By: Frank Vivar Dictated Date: 05/20/2024 08:05 ET Assigned Physician: Frank Vivar Reviewed and Electronically Signed By: Frank Vivar Signed Date: 05/20/2024 08:06 ET Workstation ID: [id number] Transcribed By: Self Edit Transcribed Date: 05/20/2024 08:05 ET documented in this encounter Medications at Time of Discharge spironolactone (ALDACTONE) 100 mg tablet Take 1.5 tablets (150 mg total) by mouth 1 (one) time each day. 45 each 05/25/2024 5 albuterol 2.5 mg/0.5 mL solution for nebulization [...] mouth 1 (one) time each day. 03/25/2024 zolpidem (AMBIEN) 10 mg tablet Take 1 tablet (10 mg total) by mouth at bedtime as needed. for insomnia amoxicillin-clavu lanate (AUGMENTIN) 875-125 mg per tablet Take 1 tablet by mouth 2 (two) times a day for 8 days. 05/25/2024 doxycycline (VIBRAMYCIN) 100 mg capsule Take 1 capsule (100 mg total) by mouth 2 (two) times a day for 8 days. Take with at least 8 ounces (large glass) of water, do not lie down for 30 minutes after 05/25/2024 5 apixaban (ELIQUIS) starter pack Take 2 tablets (10 mg total) by mouth 2 (two) times a day for 7 days. Then take 1 tablet (5 mg total) by mouth 2 (two) times a day. 74 tablet 05/25/2024 5 documented as of this encounter Ordered Prescriptions Prescription Sig Dispense Quantity Refills Last Filled Start Date End Date furosemide (LASIX) 20 mg tablet Take 2 tablets in the morning at 8 AM and 1 tablet in afternoon at 3 PM 90 each 05/25/2024 spironolactone (ALDACTONE) 100 mg tablet Take 1.5 tablets (150 mg total) by mouth 1 (one) time each day. 45 each 05/25/2024 5 apixaban (ELIQUIS) starter pack Take 2 tablets (10 mg total) by mouth 2 (two) times a day for 7 days. Then take 1 tablet (5 mg total) by mouth 2 (two) times a day. 74 tablet 05/25/2024 doxycycline (VIBRAMYCIN) 100 mg capsule Take 1 capsule (100 mg total) by mouth 2 (two) times a day for 8 days. Take with at least 8 ounces (large glass) of water, do not lie down for 30 minutes after 05/25/2024 amoxicillin-clavul anate (AUGMENTIN) 875-125 mg per tablet Take 1 tablet by mouth 2 (two) times a day for 8 days. 05/25/2024 5 documented in this encounter Discharge Disposition Disposition Code Departure Means Destination Comment s Detention Facility Ambulance Ski lled Nursing, Intermediate Care, or Assisted Living Facility documented in this encounter Progress Notes * Cecily Yang RN - 05/25/2024 3:29 PM EST Problem: Cognitive: Nika Samano Fall Risk Goal: Last Known Fall Outcome: Adequate for Discharge Goals: Identify possible barriers to meeting goals/advancing plan of care: none Stability of the patient: Moderately Stable - Low risk of patient condition declining or worsening End of Shift Summary: Pt alert and oriented x3, neuros intact. Pt with intermittent pain throughoutshift managed by prn oxycodone. Pt with wound dsgs changed this am. Pt tolerating diet and resting comfortably at this time. * Oly Wan RN - 05/25/2024 1:20 PM EST 05/25/24 1319 Transportation Transportation at discharge Ambulance Company providing transportation [facility] What day is the transport expected? 05/25/24 What time is the transport expected? 1630 Final Discharge Disposition Detention Facility Pt medically cleared for discharge. Dispo is [facility] per pt choice. Ambulance booked for 4PM. Pt has notified both his sister and SUSTAINABILITY PURCHASING AGENT of plan for transfer this afternoon. * Lucy Cedillo RN - 05/25/2024 2:28 AM EST Problem: Cognitive: Maher Selwyn Fall Risk Goal: Last Known Fall Outcome: Progressing Goal: Mobility requiring assistance of person or device Outcome: Progressing Goal: Dizziness Outcome: Progressing Goal: Medications Outcome: Progressing Goal: Mental Status/LOC/Awareness Outcome: Progressing Goal: Toileting Needs Outcome: Progressing Goal: Volume and Electrolyte Status Outcome: Progressing Goal: Communication/Sensory Outcome: Progressing Goal: Behavior Outcome: Progressing Goals: Identify possible barriers to meeting goals/advancing plan of care: iv abx, monitotoring labs, iv lasix Stability of the patient: Moderately Unstable - Medium risk of patient condition declining or worsening End of Shift Summary: * Oly Wan RN - 05/24/2024 3:24 PM EST PIETRO: 05/25 Barrier: insurance auth pending Plan: [facility] * Liang Reinoso MD - 05/24/2024 2:32 PM EST Images from the original note were not included. [facility] PROGRESS NOTE Date: 05/24/2024 Author: Liang Reinoso MD Patient ID: Jonny Gordon is a 64 y.o. male : 1960 MR#: [id number] SUBJECTIVE Subjective Patient seen and examined bedside this morning. Reports improvement in breathing. Denies any chest pain shortness of breath nausea vomiting palpitation. He was again on CPAP mask when I saw him. Discussed the case with patient's sister present bedside in detail. Patient interested in going to rehab; currently family caseworker working on placement Objective Allergy- Codeine, Nystatin, and Semaglutide OBJECTIVE Vitals: 05/23/24 2025 05/24/24 0417 05/24/24 0500 05/24/24 0734 BP: 119/62 139/59 130/59 BP Location: Right arm Right arm Left arm Patient Position: Lying Lying Lying Pulse: 100 88 85 Resp: 18 18 20 Temp: 36.1 ??C (97 ??F) 35.9 ??C (96.7 ??F) 36.6 ??C (97.9 ??F) TempSrc: Temporal Temporal Oral SpO2: 95% 91% 92% Weight: 152 kg (335 lb 4.8 oz) 152 kg (335 lb 4.8 oz) Height: Temp (24hrs), Av.2 ??C (97.1 ??F), Min:35.9 ??C (96.7 ??F), Max:36.6 ??C (97.9 ??F) Physical Exam General-patient appears comfortable, no acute distress, obese HEENT-NCAT Eyes-anicteric Cardiology-no significant murmur appreciated Respiratory-no significant wheezing appreciated abdomen-nontender nondistended Extremity-bilateral lower extremity edema noted. Legs are covered in Howard wrap Neurology-awake alert oriented to time place and person Skin-warm and dry Lab Results: CBC BMP Results from last 7 days Lab Units 05/24/24 0607 05/21/24 0317 05/20/24 0609 05/19/24 1610 WBC AUTO K/mcL 10.2 9.0 8.8 12.3* HEMOGLOBIN g/dL 12.3* 12.6* 11.2* 13.3* HEMATOCRIT % 36.9* 37.2* 32.8* 39.2* PLATELETS K/mcL 146 109* 90* 116* LYMPHS PCT AUTO % -- 9.1 -- 5.6 MONO PCT AUTO % -- 10.9 -- 8.4 EOS PCT AUTO % -- 2.5 -- 0.8 Results from last 7 days Lab Units 05/24/24 0607 05/23/24 0824 05/22/24 0542 05/21/24 0317 05/20/24 0609 05/19/24 1610 SODIUM mmol/L 133 134 136 135 < > 134 POTASSIUM mmol/L 3.5 3.9 4.4 3.4* < > 3.8 CHLORIDE mmol/L 94* 95* 100 102 < > 99 CO2 mmol/L 32 34* 30 29 < > 26 ANION GAP 7 5 6 4 < > 9 BUN mg/dL 12 11 10 15 < > 19 CREATININE mg/dL 0.62* 0.64* 0.58* 0.63* < > 0.67* CALCIUM mg/dL 8.2* 8.4* 8.1* 7.6* < > 8.5 MAGNESIUM mg/dL 2.1 -- 2.1 1.8* -- 2.1 PHOSPHORUS mg/dL 2.8 -- 2.9 2.7 -- -- < > = values in this interval not displayed. Results from last 7 days Lab Units 05/24/24 0607 05/23/24 0824 05/22/24 0542 05/21/247 05/20/24 0837 POCT GLUCOSE mg/dL -- -- -- -- 162* GLUCOSE mg/dL 127* 160* 139* 161* -- Results from last 7 days Lab Units 05/21/2431605/19/24 1610 AST unit/L 31 25 ALT unit/L 21 19 Scheduled Medications PRN Medications IV Medications aspirin, 81 mg, Daily atorvastatin, 20 mg, Nightly cefTRIAXone, 2 g, q24h doxycycline, 100 mg, q12h enoxaparin, 120 mg, q12h LIZETTE furosemide, 40 mg, q6h spironolactone, 100 mg, Daily albuterol, 2.5 mg, q6h PRN naloxone, 0.04 mg, PRN ondansetron (ZOFRAN-ODT) disintegrating tablet, 4 mg, q8h PRN Or ondansetron, 4 mg, q8h PRN oxyCODONE, 10 mg, q4h PRN zolpidem, 10 mg, Nightly PRN ASSESSMENT & PLAN Assessment/Plan Principal Problem: Severe sepsis (CMS/HCC) No problem-specific Assessment & Plan notes found for this encounter. Sepsis due to urinary tract infection and bilateral leg cellulitis UTI in presence of indwelling Alex catheter Lactic acidosis -Presented with bilateral lower extremity swelling. Also found to have UTI based on UA. He was found to have lactic acidosis, tachycardia.During this admission WBC was elevated as well. -Treated with broad-spectrum IV antibiotics initially. Including vancomycin Zosyn and ceftriaxone. -Change antibiotics to ceftriaxone and doxycycline. Per ID recommendation on discharge plan is to switch to Augmentin twice daily and doxycycline twice daily to end on 06/02. Bilateral nonpitting leg edema -Severe bilateral leg edema, probably due to underlying chronic right heart failure with sleep apnea -Great response to IV Lasix drip. Now converted to 40 IV every 6 hours Lasix. DVT-lower extremity venous duplex showed nonocclusive thrombus in right common femoral vein. Currently on full dose Lovenox and ultimately plan for Eliquis on discharge liver cirrhosis Hemochromatosis -Continue with spironolactone and Lasix. Outpatient follow-up Chronic urinary retention -Patient has chronic indwelling Alex catheter. Recommend outpatient follow-up with primary urologyat [facility] to consider external catheter versus suprapubic catheter Chronic back pain -Continue oxycodone as needed NICOLE -Continue CPAP at bedtime Morbid obesity BMI 56. Recommend weight loss measures Diet: Cardiac with fluid restriction Resuscitation: Full code Discharge barrier-medically stable for discharge pending placement All labs, imaging, relevant history personally reviewed by me. This dictation was performed using voice recognition software. Word substitution may have occurred and may have gone unnoticed and uncorrected. Reach out to our office for any errors or questions. * Elda Nazario - 05/24/2024 12:18 PM EST [facility] Physical Therapy Evaluation & Treatment PT Discharge Recommendations: group home facility placement Staff Recommendations for safe patient handling: supervision/Trudy vargas legs for bed mobility/transfers Precautions Medical Precautions: Fall Risk Safety Interventions: Call ratliff within reach, ID band on, Side rails up x1, Bed alarm RUE Weight Bearing Status: Full LUE Weight Bearing Status: Full RLE Weight Bearing Status: Full LLE Weight Bearing Status: As Tolerated Fall prevention education provided including use of call light in hospital, use of appropriate assistive device, safe mobility techniques, and safety measures at home. PT Received On: 05/24/24 PT Start Time: 1100 PT Stop Time: 1130 PT Time Calculation (min): 30 min General Family/Caregiver Present: Yes Precautions Medical Precautions: Fall Risk Safety Interventions: Call ratliff within reach, ID band on, Side rails up x1, Bed alarm RUE Weight Bearing Status: Full LUE Weight Bearing Status: Full RLE Weight Bearing Status: Full LLE Weight Bearing Status: As Tolerated Cognition Overall Cognitive Status: Within Functional Limits Arousal/Alertness: Appropriate responses to stimuli Orientation Level: Oriented X4 Following Commands: Follows all commands and directions without difficulty Hearing: Intact Vision: Intact Speech: Intact Integumentary: B LE wrapped up to knees, redness on L goes up outside to about mid thigh History of Present Illness: Patient is a 64 y.o. male admitted to [facility] on 05/19/2024. Patient Active Problem List Diagnosis Esophageal varices (CMS/HCC) Hemochromatosis Hyperlipidemia Hypertension Insomnia Internal hemorrhoids Liver cirrhosis secondary to CASTANEDA (nonalcoholic steatohepatitis) (CMS/HCC) Lymphedema Obstructive sleep apnea Thrombocytopenia (CMS/HCC) Vitamin D deficiency Erosive gastritis Diverticulosis Diabetes mellitus type 2 with neurological manifestations (CMS/HCC) Depression with anxiety COPD (chronic obstructive pulmonary disease) (CMS/HCC) Chronic allergic conjunctivitis Benign colonic polyp Avascular necrosis of bone of hip, left (CMS/HCC) Anxiety Anasarca Candidal intertrigo Severe sepsis (CMS/HCC) Past Medical History: Diagnosis Date Anxiety 04/13/2018 [...] COLONOSCOPY N/A PROCEDURE: HISTORICAL COLONOSCOPY ESOPHAGOGASTRODUODENOSCOPY PROCEDURE: ME ESOPHAGOGASTRODUODENOSCOPY TRANSORAL DIAGNOSTIC OTHER SURGICAL HISTORY Right PROCEDURE: ME STAB PHLEBT VARICOSE VEINS 1 XTR > 20 INCS Social History Home Living Environment: Home Living Type of Home: House Lives With: Alone Home Adaptive Equipment: Walker - rolling, Wheelchair-manual, Bariatric equipment, Tub seat with back, Bedside commode Home Layout: One level Home Access: Stairs to enter with rails Entrance Stairs-Rails: Rail on both sides Entrance Stairs-Number of Steps: 1 Prior Function Level of Archer: Independent with mobility and functional transfers Ambulation Status: Household ambulator Receives Help From: admissions gate attendant (40HRS/WK) Indoor Mobility Assistance: Needed Some Help Stairs Assistance : Independent Prior Device Use: Walker, Manual wheelchair Which is your dominant hand?: Right General Assessment 05/24/24 1100 PT Last Visit PT Received On 05/24/24 General Family/Caregiver Present Yes PT Time Calculation PT Start Time 1100 PT Stop Time 1130 PT Time Calculation (min) 30 min Precautions Medical Precautions Fall Risk Safety Interventions Call ratliff within reach;ID band on;Side rails up x1;Bed alarm RUE Weight Bearing Status Full LUE Weight Bearing Status Full RLE Weight Bearing Status Full LLE Weight Bearing Status As Tolerated Oxygen Therapy Oxygen Therapy None (Room air) Pain Assessment Pain Assessment 0-10 Pain Score 9 Pain Type Acute pain Pain Location Leg Pain Orientation Left Pain Descriptors Burning;Penetrating;Sharp Cognition Overall Cognitive Status WFL Arousal/Alertness Appropriate responses to stimuli Orientation Level Oriented X4 Following Commands Follows all commands and directions without difficulty Home Living Type of Home House Lives With Alone Home Adaptive Equipment Walker - rolling;Wheelchair-manual;Bariatric equipment;Tub seat with back;Bedside commode Home Layout One level Home Access Stairs to enter with rails Entrance Stairs-Rails Rail on both sides Entrance Stairs-Number of Steps 1 Prior Function Level of Archer Independent with mobility and functional transfers Ambulation Status Household ambulator Receives Help From admissions gate attendant (40HRS/WK) Indoor Mobility Assistance Needed Some Help Stairs Assistance Independent Prior Device Use Walker;Manual wheelchair Which is your dominant hand? Right Activity Tolerance Endurance Tolerates less than 10 min exercise, no significant change in vital signs Static Sitting Balance Static Sitting-Level of Assistance Supervision Static Sitting-Balance Support Feet unsupported Static Standing Balance Static Standing-Level of Assistance Minimum assistance Static Standing-Balance Support Right upper extremity supported;Left upper extremity supported Bed Mobility Rolling Left and Right Assistance Supervision Sitting to Lying Assistance Minimum assistance Sitting to Lying Deficit Assist lifting right leg onto bed;Assist lifting left leg onto bed Lying to Sitting Assistance Supervision Transfers Sit to Stand Assistance Minimum assistance Sit to Stand Deficit (needed elevated bed height to mimic chair lift at home) Ambulation Walking Assistance Contact guard Walking Deficit Limited endurance Device Rolling walker Distance Ambulated (ft) 1 Comments side step up bed, pxful L leg RUE Assessment RUE Assessment Within Functional Limits LUE Assessment LUE Assessment Within Functional Limits LUE Assessment Comments very strong UE uses mainly for all transfers/bed mobility RLE Assessment RLE Assessment Comments too pxful to assess PT Assessment PT Assessment Results Decreased endurance;Decreased strength;Impaired balance;Impaired gait;Decreased mobility;Decreased range of motion Prognosis Fair Evaluation/Treatment Tolerance Patient limited by pain Medical Staff Made Aware Yes Plan Treatment/Interventions LE strengthening/ROM;Functional transfer training;Gait training PT Plan Skilled PT PT Frequency 2-5 days per week PT Duration of Sessions 15-30 min per session PT Treatments per day 1 time per day (pt is in agreeance of needing rehab -) PT Discharge Recommendations group home facility placement PT - Evaluation Status Complete PT - OK to Discharge Yes PT Evaluation Time Entry PT Evaluation (Moderate) Time Entry 30 Treatment performed during evaluation: None performed ADDITIONAL COMMENTS: Chart reviewed. RN clears pt for session. Pt agrees to participate and presented in in bed upon PT arrival. All lines in place. Gait belt utilized throughout treatment to maximize safety. Medical precautions observed appropriately. Initiated education on the importance of PT, bed mobility safety, Transfer Safety, Ambulation Safety , Therapy Plan of Care, Home Safety, Energy Conservations strategies, and importance of OOB activity . Pt verbalized understanding. EXIT STATUS: Session ended with patient in bed, tray table and call light within reach, and RN made aware. Physical Therapy Assessment/Plan Jonny Gordon is a 64 y.o. male admitted to [facility] on 05/19/2024 for Bilateral leg edema [R60.0] Cellulitis of left leg [L03.116] Severe sepsis (CMS/HCC) [A41.9, R65.20] Urinary tract infection without hematuria, site unspecified [N39.0] Hepatic cirrhosis, unspecified hepatic cirrhosis type, unspecified whether ascites present (CMS/HCC) [K74.60] . Pt presents with decreased BLE strength, balance deficits, decreased activity tolerance, and far below functional baseline. Pt performed bed mobility Supervision and Minimal assist, Bedrail, HOB elevated, and Therapist assist, Transfers with Minimal assist, FWW and ambulates Minimal assist with FWW 1 ft . Pt will benefit from skilled acute PT during hospital stay to improve the deficits listed above and optimize function. PT recommends group home facility placement when medically stable for safe discharge and to optimize functional mobility and independence. Goals Encounter Problems Encounter Problems (Active) Template: Physical Therapy Problem: PT Short Term Goals Dates: Start: 05/24/24 Goal: Pt will walk 10ft with walker and supervision Dates: Start: 05/24/24 Expected End: 05/31/24 Goal: Pt will negotiate one step with CG. Dates: Start: 05/24/24 Expected End: 05/31/24 Encounter Problems (Resolved) There are no resolved problems. Education Documentation Home Exercise Program, taught by Elda Nazario at 05/24/2024 12:18 PM. Learner: Patient Readiness: Eager Method: Explanation, Demonstration Response: Verbalizes Understanding, Demonstrated Understanding Mobility Training, taught by Elda Nazario at 05/24/2024 12:18 PM. Learner: Patient Readiness: Eager Method: Explanation, Demonstration Response: Verbalizes Understanding, Demonstrated Understanding Education Comments No comments found. Elda Nazario Cosigned by Shaniqua Pena, PT at 05/24/2024 1:51 PM EST Associated attestation - Shaniqua Pena, PT - 05/24/2024 1:51 PM EST PT was integrally and physically involved in the decision making, delivery of interventions and ongoing assessment during the patient's care session . * Adina Wu RN - 05/24/2024 12:49 AM EST Goals: PT WILL EXPERIENCE MAXIMUM SAFETY AND AVOID FALLS Identify possible barriers to meeting goals/advancing plan of care: CHRONIC BACK PAIN, LIMITED MOBILITY, MORBID OBESITY Stability of the patient: Moderately Stable - Low risk of patient condition declining or worsening End of Shift Summary: PT W/ KNOWN UTI WHO CAME TO THE ER C/O BLE SWELLING, ADMITTED FOR SEPSIS SECONDARY TO UTI & CELLULITIS. ON ABX. RESTING COMFORTABLY * Jhonny Flores RN - 05/23/2024 7:00 PM EST Goals: Identify possible barriers to meeting goals/advancing plan of care: On IVP lasix, skin remains painful pink Stability of the patient: Moderately Stable - Low risk of patient condition declining or worsening End of Shift Summary: Skin noted to be tenting throughout. Tolerating fluid restriction. Demonstrates ability to boost self in bed with arms, participating with assisting with repositioning in bed with staff assist for care. * Liang Reinoso MD - 05/23/2024 2:48 PM EST Images from the original note were not included. [place] PROGRESS NOTE Date: 05/23/2024 Author: Liang Reinoso MD Patient ID: Jonny Gordon is a 64 y.o. male : 1960 MR#: [id number] SUBJECTIVE Subjective Patient seen and examined bedside this morning. Continues to report lower extremity pain which has been chronic. Denies any worsening of his current symptoms. Denies any chest pain shortness of breath nausea vomiting palpitation or dizziness. He was using CPAP when I saw him. Significant diuresis noted in last 24 hours. Objective Allergy- Codeine, Nystatin, and Semaglutide OBJECTIVE Vitals: 05/22/24 1533 05/22/24 2019 05/23/24 0334 05/23/24 0802 BP: (!) 141/77 117/60 123/67 119/57 BP Location: Left arm Right arm Right arm Right arm Patient Position: Lying Lying Lying Lying Pulse: 97 88 92 88 Resp: 18 18 18 19 Temp: 36.4 ??C (97.5 ??F) 36.4 ??C (97.6 ??F) 36.3 ??C (97.3 ??F) 36.4 ??C (97.6 ??F) TempSrc: Temporal Temporal Temporal Temporal SpO2: 97% 100% 92% 94% Weight: 154 kg (339 lb 6.4 oz) Height: Temp (24hrs), Av.4 ??C (97.5 ??F), Min:36.3 ??C (97.3 ??F), Max:36.4 ??C (97.6 ??F) Physical Exam General-patient appears comfortable, no acute distress, obese HEENT-NCAT Eyes-anicteric Cardiology-no significant murmur appreciated Respiratory-no significant wheezing appreciated abdomen-nontender nondistended Extremity-bilateral lower extremity edema noted. Legs are covered in Howard wrap Neurology-awake alert oriented to time place and person Skin-warm and dry Lab Results: CBC BMP Results from last 7 days Lab Units 05/21/24 0317 05/20/24 0609 05/19/24 1610 WBC AUTO K/mcL 9.0 8.8 12.3* HEMOGLOBIN g/dL 12.6* 11.2* 13.3* HEMATOCRIT % 37.2* 32.8* 39.2* PLATELETS K/mcL 109* 90* 116* LYMPHS PCT AUTO % 9.1 -- 5.6 MONO PCT AUTO % 10.9 -- 8.4 EOS PCT AUTO % 2.5 -- 0.8 Results from last 7 days Lab Units 05/23/24 0824 05/22/24 0542 05/21/24 0317 05/20/24 0609 05/19/24 1610 SODIUM mmol/L 134 136 135 134 134 POTASSIUM mmol/L 3.9 4.4 3.4* 3.3* 3.8 CHLORIDE mmol/L 95* 100 102 102 99 CO2 mmol/L 34* 30 29 27 26 ANION GAP 5 6 4 5 9 BUN mg/dL 11 10 15 18 19 CREATININE mg/dL 0.64* 0.58* 0.63* 0.56* 0.67* CALCIUM mg/dL 8.4* 8.1* 7.6* 7.9* 8.5 MAGNESIUM mg/dL -- 2.1 1.8* -- 2.1 PHOSPHORUS mg/dL -- 2.9 2.7 -- -- Results from last 7 days Lab Units 05/23/24 0824 05/22/24 0542 05/21/24 0317 05/20/24 0837 05/20/24 0609 POCT GLUCOSE mg/dL -- -- -- 162* -- GLUCOSE mg/dL 160* 139* 161* -- 153* Results from last 7 days Lab Units 05/21/24 0317 05/19/24 1610 AST unit/L 31 25 ALT unit/L 21 19 Scheduled Medications PRN Medications IV Medications aspirin, 81 mg, Daily atorvastatin, 20 mg, Nightly ceFAZolin, 2 g, q8h enoxaparin, 120 mg, q12h LIZETTE furosemide, 40 mg, q6h spironolactone, 100 mg, Daily albuterol, 2.5 mg, q6h PRN naloxone, 0.04 mg, PRN ondansetron (ZOFRAN-ODT) disintegrating tablet, 4 mg, q8h PRN Or ondansetron, 4 mg, q8h PRN oxyCODONE, 10 mg, q4h PRN zolpidem, 10 mg, Nightly PRN ASSESSMENT & PLAN Assessment/Plan Principal Problem: Severe sepsis (CMS/HCC) No problem-specific Assessment & Plan notes found for this encounter. Sepsis due to urinary tract infection and bilateral leg cellulitis UTI in presence of indwelling Alex catheter Lactic acidosis -Presented with bilateral lower extremity swelling. Also found to have UTI based on UA. He was found to have lactic acidosis, tachycardia.During this admission WBC was elevated as well. -Treated with broad-spectrum IV antibiotics initially. Including vancomycin Zosyn and ceftriaxone. -Change antibiotics to ceftriaxone and doxycycline. Per ID recommendation on discharge plan is to switch to Augmentin twice daily and doxycycline twice daily to end on 06/02. Bilateral nonpitting leg edema -Severe bilateral leg edema, probably due to underlying chronic right heart failure with sleep apnea -Great response to IV Lasix drip. Now converted to 40 IV every 6 hours Lasix. DVT-lower extremity venous duplex showed nonocclusive thrombus in right common femoral vein. Currently on full dose Lovenox and ultimately plan for Eliquis on discharge liver cirrhosis Hemochromatosis -Continue with spironolactone and Lasix. Outpatient follow-up Chronic urinary retention -Patient has chronic indwelling Alex catheter. Recommend outpatient follow-up with urology to consider suprapubic catheter Chronic back pain -Continue oxycodone as needed NICOLE -Continue CPAP at bedtime Morbid obesity BMI 56. Recommend weight loss measures Diet: Cardiac with fluid restriction Resuscitation: Full code Discharge barrier-pending improvement in volume status. Possible discharge in 24 to 48 hours All labs, imaging, relevant history personally reviewed by me. This dictation was performed using voice recognition software. Word substitution may have occurred and may have gone unnoticed and uncorrected. Reach out to our office for any errors or questions. * Adina Wu RN - 05/22/2024 11:36 PM EST Goals: PT WILL EXPERIENCE MAXIMUM SAFETY AND AVOID FALLS Identify possible barriers to meeting goals/advancing plan of care: LIMITED MOBILITY. Stability of the patient: Moderately Stable - Low risk of patient condition declining or worsening End of Shift Summary: PT ADMITTED FOR SEPSIS D/T UTI & CELLULITIS. RESTING COMFORTABLY. ON VANCO & CEFTRIAXONE * Newton Bishop RN - 05/22/2024 6:09 PM EST Goals: Problem: Cognitive: Nika Samano Fall Risk Goal: Last Known Fall Outcome: Progressing Goal: Mobility requiring assistance of person or device Outcome: Progressing Goal: Dizziness Outcome: Progressing Goal: Medications Outcome: Progressing Goal: Mental Status/LOC/Awareness Outcome: Progressing Goal: Toileting Needs Outcome: Progressing Goal: Volume and Electrolyte Status Outcome: Progressing Goal: Communication/Sensory Outcome: Progressing Goal: Behavior Outcome: Progressing Problem: Skin Integrity: Pressure Injury Actual or Risk of Goal: Will not develop new pressure injury Outcome: Progressing Goal: Skin integrity will improve Outcome: Progressing Goal: Risk for impaired skin integrity will decrease Outcome: Progressing Problem: Activity:Pressure Injury Actual or Risk of Goal: Mobility will improve Outcome: Progressing Problem: Nutritional:Pressure Injury Actual or Risk of Goal: Nutritional status will improve Outcome: Progressing Problem: Patient Specific Problem: Pressure Injury Actual or Risk of Goal: Patient Specific Outcome Outcome: Progressing Identify possible barriers to meeting goals/advancing plan of care: infection Stability of the patient: Moderately Stable - Low risk of patient condition declining or worsening End of Shift Summary: Patient A&O x 4 with stable vs. Patient still with BLE edema, legs propped on pillows patient on IV lasix. Patient with continued pain but good effect with current pain regiment. Patient calm and cooperative with care. * Jose Cruz Cordon MD - 05/22/2024 5:47 PM EST Images from the original note were not included. [place] PROGRESS NOTE Date: 05/22/2024 Author: Jose Cruz Cordon MD Patient ID: Jonny Gordon is a 64 y.o. male : 1960 MR#: [id number] SUBJECTIVE Subjective Lasix drip Allergies Codeine, Nystatin, and Semaglutide Current Medications: aspirin, 81 mg, oral, Daily atorvastatin, 20 mg, oral, Nightly cefTRIAXone, 2 g, intravenous, q24h enoxaparin, 120 mg, subcutaneous, q12h LIZETTE spironolactone, 100 mg, oral, Daily vancomycin, 1,500 mg, intravenous, q8h furosemide, 10 mg/hr, Last Rate: 10 mg/hr (05/22/24 1213) PRN medications: albuterol, naloxone, ondansetron (ZOFRAN-ODT) disintegrating tablet OR ondansetron, oxyCODONE, zolpidem OBJECTIVE Vitals: 05/22/24 0600 05/22/24 0731 05/22/24 1450 05/22/24 1533 BP: 125/62 (!) 141/77 BP Location: Right arm Left arm Patient Position: Lying Lying Pulse: 84 97 Resp: 16 18 Temp: 36.4 ??C (97.5 ??F) 36.4 ??C (97.5 ??F) TempSrc: Temporal Temporal SpO2: 93% 97% Weight: 156 kg (345 lb) 156 kg (345 lb) Height: Physical Exam LABS HEMATOLOGY Lab Results Component Value Date WBC 9.0 05/21/2024 HGB 12.6 (L) 05/21/2024 HCT 37.2 (L) 05/21/2024 MCV 101.4 (H) 05/21/2024 PLT 109 (L) 05/21/2024 CHEMISTRY Lab Results Component Value Date GLUCOSE 139 (H) 05/22/2024 NA 136 05/22/2024 K 4.4 05/22/2024 CO2 30 05/22/2024 CL 100 05/22/2024 BUN 10 05/22/2024 CREATININE 0.58 (L) 05/22/2024 EGFR 108 05/22/2024 CALCIUM 8.1 (L) 05/22/2024 MG 2.1 05/22/2024 PHOS 2.9 05/22/2024 ANIONGAP 6 05/22/2024 Imaging: Vascular US duplex lower extremity venous bilateral Narrative: PROCEDURE: VAS US DUPLEX LOWER EXT VENOUS BILAT INDICATION: Edema TECHNIQUE: 2-D and color Doppler imaging of the lower extremity venous vasculature with compressionand augmentation maneuvers. COMPARISON: No priors available. FINDINGS: RIGHT: Nonocclusive thrombus in the right common femoral vein. Remainder of the right lower extremity veins are patent where visualized. LEFT: There is normal flow, compression, and augmentation from the common femoral through the popliteus. Visualized calf veins are patent. Impression: NONOCCLUSIVE THROMBUS IN THE RIGHT COMMON FEMORAL VEIN. NO VENOUS THROMBOSIS IN THE LEFT LOWER EXTREMITY VEINS. -------- FINAL REPORT -------- Dictated By: JENNIFER MESA Dictated Date: 05/21/2024 09:22 ET Assigned Physician: JENNIFER MESA Reviewed and Electronically Signed By: JENNIFER MESA Signed Date: 05/21/2024 09:23 ET Workstation ID: [id number] Transcribed By: Self Edit Transcribed Date: 05/21/2024 09:22 ET ASSESSMENT & PLAN Sepsis due to urinary tract infection and bilateral leg cellulitis UTI in presence of indwelling Alex catheter Lactic acidosis -presented complaint of lower extremity swelling -Vital's are notable for mild tachycardia in the 100s -Labs are notable for creatinine of 0.67, alk phos 153, lactic of 4.4, troponin of 7, 7, BNP of 40,white blood cell count of 12.3, hemoglobin of 13.3, hematocrit of 39.2 platelets of 116, INR is 1.4, UA showed many bacteria, elevated red blood cells, white blood cells, moderate leuk esterase and positive nitrates. -Patient was given ceftriaxone, Lasix, Zosyn and vancomycin in the ED. -Continue with vancomycin and Zosyn -Give albumin for lactic acidosis and continue to trend throughout the night -Blood cultures ordered, follow-up on urine culture Lactic acidosis resolved lactic acidosis down to 1.8 -AM labs Bilateral lower extremity cellulitis Started on iv vancomycin in the ED, Continue ID consult Bilateral nonpitting leg edema Severe bilateral leg edema, probably due to underlying chronic right heart failure and sleep apnea Persistent leg edema despite change to IV Lasix drip intravenous diuretics i will obtain baseline duplex ultrasound to rule out DVT cutaneous candidiasis Infection of the skin folds Better with nystatin Thrombocytopenia due to sepsis Platelet count went up from 92-109. Carefully monitor platelet count especially with being on subcutaneous Lovenox, Watch for bleeding Hypokalemia Supplement Potassium level specially with the use of Lasix drip Hypomagnesemia Supplemented intravenously \ liver cirrhosis Hemochromatosis -LFTs within normal limits with exception of mildly elevated alk phos of 153, platelets are 116 (have ranged from 90s to 100s), continue to trend -Received therapeutic blood draws every 3 months -Continue with spironolactone and Lasix Hepatotoxic's Chronic urinary retention Alex's catheter at home Alex Cath changed 2 days before coming to the hospital via the [facility] Hyperlipidemia -Continue statin Chronic back pain -Continue oxycodone as needed NICOLE -Continue CPAP at bedtime Morbid obesity BMI 56, overall prognosis is poor if no drastic weight loss measures are can completed Addendum: As per ID this afternoon: Switch Zosyn to Ceftriaxone and talk to urology about scheduling either an outpatient appointment or seeing him here to discuss suprapubic cath Addendum: DVT : Duplex both legs: NONOCCLUSIVE THROMBUS IN THE RIGHT COMMON FEMORAL VEIN. NO VENOUS THROMBOSIS IN THE LEFT LOWER EXTREMITY VEINS. Patient is already on high-dose Lovenox 60 mg every 12 hours with low platelets, Will increase the Lovenox to 120 mg every 12 hours and monitor for bleeding DAILY CARE CHECKLIST VTE Prophylaxis: SubQ Lovenox Resuscitation: Full Code - Default IV Access: periphrsal Tubes, Catheters, Devices: Alex's catheter PCP: GIORGI Hummel Disposition/patient need hospital stay because : Sepsis with lactic acidosis, IV abcs IV diuresis :lasix drip Discussed with: Patient, nursing , case management Adina Frazier Total time spent35 minutes doing reviewing the electronic medical record , interviewing patient, gathering information, performing physical exam, formulating plan, explaining management plan to patient, coordinating care with RN and case managmenet, documentation and placing orders. This dictation was performed using Keynoir speech recognition software. Word substitution may have occurred and may have gone unnoticed and uncorrected If you have questions, please do not hesitate to call our hospital at [phone] * Jose Cruz Cordon MD - 05/22/2024 4:35 PM EST [facility] Provider Response Note PATIENT: JONNY GORDON : 1960 ADMIT DATE: 05/19/2024 5:44 PM DISCH DATE: RESPONDING PROVIDER #: [id number] PROVIDER RESPONSE TEXT: The two conditions are due to or associated. QUERY TEXT: Please clarify in documentation the relationship, if any, between UTI and chronic indwelling urinary catheter. Such as: ED Provider Notes 05/19/2024 (4) Chief Complaint: Patient has chronic indwelling urinary catheter, last time it was changed per EMS is 2 days ago... HPI: Patient has a chronic Alex catheter in place as well... ROS: He does have a chronic Alex catheter as well. Patient Alex catheter appears to be clogged from sediments. H&P 05/19/2024 Sepsis UTI Lactic acidosis -Patient was seen today with complaint of lower extremity swelling -Vital's are notable for mild tachycardia in the 100s -Labs are notable for creatinine of 0.67, alk phos 153, lactic of 4.4, troponin of 7, 7, BNP of 40,white blood cell count of 12.3, hemoglobin of 13.3, hematocrit of 39.2 platelets of 116, INR is 1.4, UA showed many bacteria, elevated red blood cells, white blood cells, moderate leuk esterase and positive nitrates. -Patient was given ceftriaxone, Lasix, Zosyn and vancomycin in the ED. 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 * Nickie David RD - 05/22/2024 3:06 PM EST 05/22/2024 @ 3:09 PM EST Nutrition Initial Assessment Reason for RD Intervention: Assessment Type: Nutrition Trigger Reason for Assessment: Wound Anthropometrics: Height: 167.6 cm (66 ) Weight: 156 kg (345 lb) (per EPIC record) Weight Method: Actual (bed scale) BMI (Calculated): 55.7 BMI Class: Obesity Class III UBW (lbs): (353lbs March, now 345lbs, pt had 6.9 liters of fluid removed 05/11/24) Current Diet and Supplements: Dietary Orders (From admission, onward) Start Ordered 05/19/24 1745 Adult diet [facility]; General; Regular Diet effective now Question Answer Comment Location [facility] Diet Type (req) General General Diet Regular 05/19/24 1748 History of presenting illness: Patient is a 64 y.o. male with a history of Past Medical History: Diagnosis Date Anxiety 04/13/2018 [...] COLONOSCOPY N/A PROCEDURE: HISTORICAL COLONOSCOPY ESOPHAGOGASTRODUODENOSCOPY PROCEDURE: ME ESOPHAGOGASTRODUODENOSCOPY TRANSORAL DIAGNOSTIC OTHER SURGICAL HISTORY Right PROCEDURE: ME STAB PHLEBT VARICOSE VEINS 1 XTR > 20 INCS admitted 05/19/2024 with Severe sepsis (CMS/HCC). 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 reports no food allergies. Self-selected diet(s) followed: Pt reports he limits salt and sugar, reduced his portions and does not take a vitaminn with Fe (had been on multivitamin for years, stopped per GI doctor). Appetite AIRVEYOR OPERATOR: Good Intake AIRVEYOR OPERATOR: Stable Vitamins/Minerals/Herbs: stopped taking multivitamin per GI doctor Consuming 80%-90% of usual prior to admission. Family and SUSTAINABILITY PURCHASING AGENT assist at home. Weight History: Wt Readings from Last 10 Encounters: 05/22/24 156 kg (345 lb) 04/07/24 160 kg (353 lb) 03/03/24 151 kg (332 lb 6.4 oz) 11/17/23 154 kg (340 lb 9.6 oz) 11/05/23 150 kg (330 lb) 08/12/23 164 kg (362 lb 6.4 oz) 07/03/23 159 kg (350 lb) 05/06/23 159 kg (350 lb 6.4 oz) 02/03/23 159 kg (350 lb 6.4 oz) 09/27/22 135 kg (297 lb) Subjective Assessment: Pt presents with severe sepsis, edema, UTI. Lasix drip required. Pt has a history of hemachromatosis and has regular therapeutic blood draws. Appetite is good. Wound nurse following. Pt sees his GI doctor regularly. Blood sugar fairly well controlled at this time. A1c 4.9. Nutrition-Related Lab Values: Results from last 7 days Lab Units 05/22/24 0542 05/21/24 0317 SODIUM mmol/L 136 135 POTASSIUM mmol/L 4.4 3.4* PHOSPHORUS mg/dL 2.9 2.7 MAGNESIUM mg/dL 2.1 1.8* CHLORIDE mmol/L 100 102 CO2 mmol/L 30 29 BUN mg/dL 10 15 CREATININE mg/dL 0.58* 0.63* EGFR mL/min/1.73m2 108 105 CALCIUM mg/dL 8.1* 7.6* BILIRUBIN TOTAL mg/dL -- 3.0* ALK PHOS unit/L -- 139* ALT unit/L -- 21 AST unit/L -- 31 GLUCOSE mg/dL 139* 161* WBC AUTO K/mcL -- 9.0 Lab Results Component Value Date LIPASE 76 (H) 05/19/2024 Results from last 7 days Lab Units 05/21/24 0317 HEMOGLOBIN A1C % 4.9 Medications: aspirin, 81 mg, oral, Daily atorvastatin, 20 mg, oral, Nightly cefTRIAXone, 2 g, intravenous, q24h enoxaparin, 120 mg, subcutaneous, q12h LIZETTE spironolactone, 100 mg, oral, Daily vancomycin, 1,500 mg, intravenous, q8h CONTINUOUS: furosemide, 10 mg/hr, Last Rate: 10 mg/hr (05/22/24 1213) PRN medications: albuterol, naloxone, ondansetron (ZOFRAN-ODT) disintegrating tablet OR ondansetron, oxyCODONE, zolpidem Food/Nutrition-Current Status: Intake Type: P.O. Current Diet Status: Other (Comment) (Pt would benefit form sodium restriction) Current Supplement Status: Other (Comment) (not ordered) Appetite: Good (Pt self limiting intake to reduce sodium) Intake Amount (%): 50-75% Intake Assessment: Other (Comment) (may not be adequate as pt consuming 50% of entre if he feels itis high sodium) Main IVF: (lasix drip) Nutrition Focused Physical Findings: Overall Appearance: comfortable lying in bed, no visual findings of muscle or fat loss. Digestive System (Mouth to Rectum): Other (Comment) (ascites, BM 05/21) Nerves and Cognition: Alert, Oriented Skin: groin-dermatitis, small drainage, Proximal upper left leg wound not staged, PU distal left posterior upper leg stage 2 with small drainage, left lower leg denuded with copious drainage, right upper leg has small stage 2 versus shear versus MASD vs all three, dermatitis scrotum and groin. (perwound RN notes) Fluid Accumulation/Edema: Other (Comment) (lower extremity, chronic, ascites requiring paracentesis) Nutrition Diagnosis: Code Type: None Identified Diagnosis: Other (Comment) (decreased nutrient needs, sodium iron) Etiology: Other (Comment) (related to hepatic dysfunction) Symptoms: as evidenced by history of cirrhosis, hemachromatosis Nutrition Interventions: Diet Order, Other (Comment), Collaboration and Referral of Nutrition Care (monitoring of volume status, wound progress) Diet Order: -requested Low Sodium (cardiac)to reduce sodium content(and allow pt more flexibility to consume what is served) and reduce red meat options (reduce iron intake) Collaboration and Referral of Nutrition Care: Collaborate with Other Providers -will not order multivitamin or vitamin C to prevent increased intake or absorption of iron. Will not add Gaston due to hepatic function. Monitor wound progress and consider zinc if appropriate. Encourage adequate intake to support micronutrient needs at this time. Goals: Patient will consume greater than or equal to 75% meals., Monitor/control glucose levels, Electrolytes within normal range., Fluid accumulation resolved., Stooling appropriately., and Wound healing progress. Coordination of Patient Care: Discussed with provider(s) via [employer] Secure Chat/Haiku. Monitoring/Evaluation: Energy Intake, Protein Intake, Renal/Electrolyte Profile, Gastrointestinal Profile, Diet Order Nutrition Recommendations/Plan of Care: Low sodium diet/cardiac diet. Follow Up: Nutrition Priority Level: Moderate Please consult nutrition if needed sooner. Nutritional Discharge Recommendations: Recommended Discharge Diet: Other (Comment) (Continue to follow a diet that is low in sodium and refined sugars. Limit red meats (beef and pork) to 2-3 servings per week to limit iron intake.) RD remains available and will continue to follow. Signature: Nickie David RD * Valente Acharya RN - 05/21/2024 11:34 PM EST Goals: Identify possible barriers to meeting goals/advancing plan of care: . Stability of the patient: Moderately Stable - Low risk of patient condition declining or worsening End of Shift Summary: A&O x4 at this time, continues to have generalized edema, dressing changed by provider and AM nurse on 05-21-24. PRN medication given this evening with good effect no issues at this time. * Loyda Patel RN - 05/21/2024 4:07 PM EST Problem: Cognitive: Maher Selwyn Fall Risk Goal: Last Known Fall Outcome: Progressing Goal: Mobility requiring assistance of person or device Outcome: Progressing Goal: Dizziness Outcome: Progressing Goal: Medications Outcome: Progressing Goal: Mental Status/LOC/Awareness Outcome: Progressing Goal: Toileting Needs Outcome: Progressing Goal: Volume and Electrolyte Status Outcome: Progressing Goal: Communication/Sensory Outcome: Progressing Goal: Behavior Outcome: Progressing Problem: Skin Integrity: Pressure Injury Actual or Risk of Goal: Will not develop new pressure injury Outcome: Progressing Goal: Skin integrity will improve Outcome: Progressing Goal: Risk for impaired skin integrity will decrease Outcome: Progressing Problem: Activity:Pressure Injury Actual or Risk of Goal: Mobility will improve Outcome: Progressing Problem: Nutritional:Pressure Injury Actual or Risk of Goal: Nutritional status will improve Outcome: Progressing Problem: Patient Specific Problem: Pressure Injury Actual or Risk of Goal: Patient Specific Outcome Outcome: Progressing Goals: Identify possible barriers to meeting goals/advancing plan of care: Stability of the patient: End of Shift Summary: * Helen Saxena RN - 05/21/2024 1:55 PM EST Images from the original note were not included. Wound Care Initial Consult Visit Date: 05/21/2024 Patient Name: Jonny Gordon Date of : 1960 Reason for Consult: Wound RN Consult received to assess bilateral lower legs, groins, and posteriorlegs wounds and recommend topical treatment. Wound History: Patient with hx of lymphedema. Reports using lymphedema sleeves at home. Patient Active Problem List Diagnosis Date Noted Date Diagnosed Severe sepsis ([facility]) 05/19/2024 Candidal intertrigo 03/01/2024 Anasarca 02/26/2024 Lymphedema 08/01/2022 Thrombocytopenia ([facility]) 08/01/2022 COPD (chronic obstructive pulmonary disease) ([facility]) 08/01/2022 Avascular necrosis of bone of hip, left ([facility]) 06/25/2022 Insomnia 04/13/2018 Chronic allergic conjunctivitis 04/13/2018 Anxiety 04/13/2018 Esophageal varices ([facility]) 12/03/2017 Hemochromatosis 12/03/2017 Liver cirrhosis secondary to CASTANEDA (nonalcoholic steatohepatitis) ([facility]) 12/03/2017 Erosive gastritis 10/13/2017 Obstructive sleep apnea 05/21/2016 Hypertension 12/14/2014 Hyperlipidemia 12/12/2014 Diabetes mellitus type 2 with neurological manifestations ([facility]) 12/12/2014 Depression with anxiety 12/12/2014 Benign colonic polyp 12/12/2014 Vitamin D deficiency 07/27/2012 Internal hemorrhoids 07/27/2010 Diverticulosis 05/29/2010 Nutritional Status: Pertinent Labs: Albumin Date Value Ref Range Status 05/21/2024 2.3 (L) 3.2 - 5.0 g/dL Final Albumin, Fluid Date Value Ref Range Status 05/11/2024 0.9 See Comment g/dL Final WBC Date Value Ref Range Status 05/21/2024 9.0 4.8 - 10.8 K/mcL Final WBC, Urine Date Value Ref Range Status 05/19/2024 100.0 (H) 0 - 4 /HPF Final Hemoglobin A1C Date Value Ref Range Status 05/21/2024 4.9 <6.5 % Final Glucose POCT Date Value Ref Range Status 05/20/2024 162 (H) 70 - 100 mg/dL Final Wound Assessment: Wound Moisture Associated Dermatitis 03/01/24 Groin Right;Other (Comment) (Active) Wound Image 05/21/24 1125 Wound Bed Tissue Assessment Red 05/21/24 1125 Ingrid-Wound Assessment Moist 05/21/24 1125 Wound Length (cm) 2.5 cm 05/21/24 1125 Wound Width (cm) 12 cm 05/21/24 1125 Wound Surface Area (cm^2) 30 cm^2 05/21/24 1125 Drainage Description Sanguineous 05/20/24 1635 Drainage Amount Small 05/20/24 1635 Treatments Cleansed 05/20/24 1635 Dressing Other (Comment) 05/21/24 1125 Dressing Changed Changed 05/21/24 1125 Dressing Status Other (Comment) 05/21/24 0702 State of Healing Non-healing 05/21/24 1125 Wound Bed Epithelialization (%) 0 % 05/21/24 1125 Wound Bed Slough (%) 0 % 05/21/24 1125 Wound Bed Eschar (%) 0 % 05/21/24 1125 Wound 05/20/24 Leg Left;Posterior;Proximal;Upper (Active) Wound Image 05/21/24 1152 Wound Bed Tissue Assessment Pale;[place] 05/21/24 1152 Ingrid-Wound Assessment Unable to assess 05/21/24 0724 Wound Length (cm) 6 cm 05/21/24 1152 Wound Width (cm) 8 cm 05/21/24 1152 Wound Surface Area (cm^2) 48 cm^2 05/21/24 1152 Wound Depth (cm) 0.1 cm 05/21/24 1152 Wound Volume (cm^3) 4.8 cm^3 05/21/24 1152 Drainage Description Serosanguineous 05/21/24 1152 Drainage Amount Small 05/21/24 1152 Treatments Cleansed 05/21/24 1152 Dressing Xeroform;Foam 05/21/24 1152 Dressing Changed Changed 05/21/24 1152 Dressing Status Clean;Dry;Intact 05/21/24 0724 State of Healing Non-healing 05/21/24 1152 Wound Pressure Injury 05/20/24 Leg Distal;Left;Posterior;Upper (Active) Wound Image 05/21/24 1153 Wound Bed Tissue Assessment Pale;[place] 05/21/24 1153 Ingrid-Wound Assessment Unable to assess 05/21/24 0839 Drainage Description Sanguineous 05/21/24 1153 Drainage Amount Small 05/21/24 1153 Treatments Cleansed 05/21/24 1153 Dressing Xeroform;Foam 05/21/24 1153 Dressing Changed Changed 05/21/24 1153 Dressing Status Clean;Dry;Intact 05/21/24 0839 Pressure Injury Stage 2 05/21/24 1153 Wound Other (comment) 05/20/24 Leg Left;Lower (Active) Wound Image 05/21/24 1122 Wound Bed Tissue Assessment Denuded;Maceration;Sloughing 05/21/24 1122 Ingrid-Wound Assessment Edematous;Red;Weeping;Painful;[place] 05/21/24 1122 Drainage Description Serous 05/21/24 1122 Drainage Amount Copious 05/21/24 1122 Treatments Cleansed 05/21/24 1122 Dressing Xeroform;Gauze;Arelis;Howard wrap 05/21/24 1122 Dressing Changed New 05/21/24 1122 Dressing Status Other (Comment) 05/21/24 0840 State of Healing Non-healing 05/21/24 1122 Wound Moisture Associated Dermatitis 05/21/24 Groin Left (Active) Wound Image 05/21/24 1127 Wound Bed Tissue Assessment [place] 05/21/24 1127 Ingrid-Wound Assessment Moist 05/21/24 1127 Drainage Description Sanguineous 05/20/24 1641 Drainage Amount Small 05/20/24 1641 Treatments Cleansed 05/21/24 1127 Dressing Status Other (Comment) 05/21/24 0842 State of Healing Non-healing 05/21/24 1127 Wound Bed Granulation (%) 0 % 05/21/24 1127 Wound Bed Epithelialization (%) 0 % 05/21/24 1127 Wound Bed Slough (%) 0 % 05/21/24 1127 Tunneling 0 cm 05/21/24 1127 Undermining 0 cm 05/21/24 1127 Wound Moisture Associated Dermatitis 05/21/24 Scrotum Anterior (Active) Wound Image 05/21/24 1134 Wound Bed Tissue Assessment [place];Dry 05/21/24 1134 Wound Length (cm) 5.5 cm 05/21/24 1134 Wound Width (cm) 2.5 cm 05/21/24 1134 Wound Surface Area (cm^2) 13.75 cm^2 05/21/24 1134 Wound Depth (cm) 0.1 cm 05/21/24 1134 Wound Volume (cm^3) 1.375 cm^3 05/21/24 1134 Treatments Cleansed 05/21/24 1134 State of Healing Non-healing 05/21/24 1134 Non-staged Wound Description Partial thickness 05/21/24 1134 Support Surface: Patient is 10 on Bernardo scale and recommending bariatric low air loss bed. Wound Summary Assessment/ Wound Plan: Patient with bilateral leg lymphedema and RLE smaller without cellulitis. LLE with cellulitis, larger then RLE, areas of denuded skin with weeping on medial and lateral/posterior aspect. Recommendingxeroform to denuded areas, apply multiple abd pads, wrap with kerlix roll x 3 ands howard wraps x 3 base of toes to below knee. Use 4 inch for foot and 6 inch for lower leg. Change QOD and prn strikethrough drainage. Anterior scrotum with MASD denudation and recommending triad daily. Right posterior upper leg proximal and distal area with stage 2 pressure injury vs shear/ MASD or combination of all. Recommending xeroform, large mepilex to each area. Change QOD and prn 05/21/2024 1:56 PM EST * Delmer Molina - 05/21/2024 9:12 AM EST SPIRITUAL CARE Date/Time:05/21/24 at 9:12 AM EST Type of Visit: Initial Referral and Visit, Referral , and Call Center Receptionist Rounding Reason for Visit: Spiritual/Emotional Support Time Spent: 20 Minutes Location: [address] [place] [address] Sacramental Encounters: 0 Spiritual Distress Assessment: 0 Spiritual Assessment/Distress Spiritual Care Assessment: Assessment: Patient was unavailable for a visit. I spoke with the patients family member. His sister shared that the patient was not doing so well and that they are trying to figure out the best medical interventions. Patient's sister is trying to cope with current situation and is finding it hard to do so. Patients sister shared that she was concerned about the patients outcome. Patients sister shared that she has lost other family member-her other brothers. There is a presence of some grief still there. The Patient sister says that she is trying he best to support the patient in their healing. The patients sister said that she finds support from some good friends. The patient and his sister will be held in prayer by the spiritual care department which is always available to meet the spiritual and emotional needs of families and patients during hospital stay. Intervention: NE Spiritual Care Interventions : provided anxiety containment, provided support, explored hope, listened empathically, provided silent and supportive presence, empowered Patient/Family, and relationship Guidance Outcomes: Patients family member expressed catharsis and expressed gratitude Plan of Care: Visit as needed to provide support to both patient and family. A follow up is recommended to touch base with the patient at this time and to complete spiritual assessment screen. *Reference: Spiritual Distress Assessment Tool: The SDAT is a clinical tool used by chaplains to identify unmet spiritual and emotional needs that can impact Goals of Care in the following categories: Spiritual Distress Assessment Legend Spiritual Needs Related Questions Meaning Are you having difficulties coping with what is happening to your now? Does your hospitalization have any repercussions on the way you live usually? Transcendence Do you have a particular restoration, moose, or spirituality? Is your restoration/spirituality/moose challenged by what is happening to you now? Values Do you think that the health professionals caring for you know you well enough? Do you feel that you are participating in the decisions made about your care? Psycho-Social Identity Do you have any worries or difficulties regarding your family or other persons close to you? Do you feel lonely? Do you have links to your moose community? SCALE 0= no evidence of unmet spiritual needs 1= some evidence of unmet spiritual needs 2= substantial evidence of unmet spiritual needs 3= evidence of severe unmet spiritual needs * Jose Cruz Cordon MD - 05/21/2024 8:31 AM EST Images from the original note were not included. [facility] PROGRESS NOTE Date: 05/21/2024 Author: Jose Cruz Cordon MD Patient ID: Jonny Gordon is a 64 y.o. male : 1960 MR#: [id number] SUBJECTIVE Subjective Chart and EMR reviewed overnight events reviewed case discussed with the floor nurse Jannette at the bedside patient slept well, no fever, no hypotension, Less weeping of the legs Patient is receiving intravenous Lasix boluses, no fever while on IV antibiotics, urine color initially was light pink then yellow than elda as per RNLiliana I did I did yeah okay yeah I am doing so yeah thank you thank you Lactic acid down to 1.8 Allergies Codeine, Nystatin, and Semaglutide Current Medications: aspirin, 81 mg, oral, Daily atorvastatin, 20 mg, oral, Nightly enoxaparin, 60 mg, subcutaneous, q12h LIZETTE magnesium sulfate, 2 g, intravenous, Once piperacillin-tazobactam, 3.375 g, intravenous, q6h potassium chloride oral extended release, 40 mEq, oral, Once potassium chloride oral extended release, 40 mEq, oral, Once spironolactone, 100 mg, oral, Daily vancomycin, 1,500 mg, intravenous, q8h furosemide, 10 mg/hr PRN medications: albuterol, naloxone, ondansetron (ZOFRAN-ODT) disintegrating tablet OR ondansetron, oxyCODONE, zolpidem OBJECTIVE Vitals: 05/20/24 1530 05/20/24 2031 05/21/24 0321 05/21/24 0755 BP: 122/69 120/60 139/80 BP Location: Left arm Left arm Left arm Patient Position: Lying Lying Lying Pulse: 93 104 101 Resp: 22 16 20 Temp: 37.1 ??C (98.7 ??F) 36.4 ??C (97.5 ??F) 36.2 ??C (97.2 ??F) TempSrc: Temporal Temporal Temporal SpO2: 94% 92% 94% Weight: 159 kg (349 lb 14.4 oz) Height: 1.676 m (66 ) Physical Exam Morbidly obese, BMI 56, Much better compared to yesterday not in apparent pain or distress, Pupil equal reactive, abdomen obese soft nontender, Chest limited bilateral air entry with no wheezing at this time, 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 and oriented, generalized weakness Alex's catheter in place with dark yellow urine Persistent massive bilateral nonpitting leg edema with the erythema of both legs, Weeping of both legs Skin: some improvement of Intertrigo in all skin folds LABS HEMATOLOGY Lab Results Component Value Date WBC 9.0 05/21/2024 HGB 12.6 (L) 05/21/2024 HCT 37.2 (L) 05/21/2024 MCV 101.4 (H) 05/21/2024 PLT 109 (L) 05/21/2024 CHEMISTRY Lab Results Component Value Date GLUCOSE 161 (H) 05/21/2024 NA 135 05/21/2024 K 3.4 (L) 05/21/2024 CO2 29 05/21/2024 CL 102 05/21/2024 BUN 15 05/21/2024 CREATININE 0.63 (L) 05/21/2024 EGFR 105 05/21/2024 CALCIUM 7.6 (L) 05/21/2024 MG 1.8 (L) 05/21/2024 PHOS 2.7 05/21/2024 ANIONGAP 4 05/21/2024 Imaging: XR Chest 2 Views Narrative: PROCEDURE: PA and lateral radiographs of the chest. HISTORY: chest pain. COMPARISON: 09/23/2008. FINDINGS: There is a small left moderate layering left pleural effusion which is new compared with the previous study. A small right pleural effusion seen on the previous study is no longer present. Heart sizeis normal. Atherosclerotic calcification of the aorta. No pneumothorax. Pulmonary vasculature appears normal. Degenerative changes of the spine and shoulders. Impression: Small-moderate left pleural effusion. -------- FINAL REPORT -------- Dictated By: Frank Vivar Dictated Date: 05/20/2024 08:05 ET Assigned Physician: Frank Vivar Reviewed and Electronically Signed By: Frank Vivar Signed Date: 05/20/2024 08:06 ET Workstation ID: [id number] Transcribed By: Self Edit Transcribed Date: 05/20/2024 08:05 ET ASSESSMENT & PLAN Sepsis due to urinary tract infection and bilateral leg cellulitis UTI in presence of indwelling Alex catheter Lactic acidosis -presented complaint of lower extremity swelling -Vital's are notable for mild tachycardia in the 100s -Labs are notable for creatinine of 0.67, alk phos 153, lactic of 4.4, troponin of 7, 7, BNP of 40,white blood cell count of 12.3, hemoglobin of 13.3, hematocrit of 39.2 platelets of 116, INR is 1.4, UA showed many bacteria, elevated red blood cells, white blood cells, moderate leuk esterase and positive nitrates. -Patient was given ceftriaxone, Lasix, Zosyn and vancomycin in the ED. -Continue with vancomycin and Zosyn -Give albumin for lactic acidosis and continue to trend throughout the night -Blood cultures ordered, follow-up on urine culture Lactic acidosis resolved lactic acidosis down to 1.8 -AM labs Bilateral lower extremity cellulitis Started on iv vancomycin in the ED, Continue ID consult Bilateral nonpitting leg edema Severe bilateral leg edema, probably due to underlying chronic right heart failure and sleep apnea Persistent leg edema despite change to IV Lasix drip intravenous diuretics i will obtain baseline duplex ultrasound to rule out DVT cutaneous candidiasis Infection of the skin folds Better with nystatin Thrombocytopenia due to sepsis Platelet count went up from 92-109. Carefully monitor platelet count especially with being on subcutaneous Lovenox, Watch for bleeding Hypokalemia Supplement Potassium level specially with the use of Lasix drip Hypomagnesemia Supplemented intravenously \ liver cirrhosis Hemochromatosis -LFTs within normal limits with exception of mildly elevated alk phos of 153, platelets are 116 (have ranged from 90s to 100s), continue to trend -Received therapeutic blood draws every 3 months -Continue with spironolactone and Lasix Hepatotoxic's Chronic urinary retention Alex's catheter at home Alex Cath changed 2 days before coming to the hospital via the [facility] Hyperlipidemia -Continue statin Chronic back pain -Continue oxycodone as needed NICOLE -Continue CPAP at bedtime Morbid obesity BMI 56, overall prognosis is poor if no drastic weight loss measures are can completed Addendum: As per ID this afternoon: Switch Zosyn to Ceftriaxone and talk to urology about scheduling either an outpatient appointment or seeing him here to discuss suprapubic cath Addendum: DVT : Duplex both legs: NONOCCLUSIVE THROMBUS IN THE RIGHT COMMON FEMORAL VEIN. NO VENOUS THROMBOSIS IN THE LEFT LOWER EXTREMITY VEINS. Patient is already on high-dose Lovenox 60 mg every 12 hours with low platelets, Will increase the Lovenox to 120 mg every 12 hours and monitor for bleeding DAILY CARE CHECKLIST VTE Prophylaxis: SubQ Lovenox Resuscitation: Full Code - Default IV Access: periphrsal Tubes, Catheters, Devices: Alex's catheter PCP: GIORGI Hummel Disposition/patient need hospital stay because : Sepsis with lactic acidosis, IV abcs IV diuresis :lasix drip Discussed with: Patient, nursing at the bedside Loyda , case management Adina Frazier Total time spent35 minutes doing reviewing the electronic medical record , interviewing patient, gathering information, performing physical exam, formulating plan, explaining management plan to patient, coordinating care with RN and case managmenet, documentation and placing orders. This dictation was performed using [employer] speech recognition software. Word substitution may have occurred and may have gone unnoticed and uncorrected If you have questions, please do not hesitate to call our hospital at [phone] * Amy Coughlin PharmD - 05/21/2024 4:00 AM EST Amy Coughlin [facility] 05/21/2024 04:00 Trough 05/21 0349 is 16.2 Continue as ordered for goal 15-20 Recheck 05/23 @ 0300 Britt Macias, PharmD 05/19/2024 20:37 Initial Pharmacy Vancomycin Dosing Consultation Consult ordering provider: GIORGI Loomis 64 y.o. male is being started on vancomycin for sepsis, skin/soft tissue infection, UTI for 7 days with a goal trough per Protocol of 15 - 20 mg/L. Relevant data Height: 1.676 m (66 ) Weight: 160 kg (353 lb) Temp Readings from Last 3 Encounters: 05/19/24 37 ??C (98.6 ??F) 03/03/24 36.9 ??C (98.4 ??F) (Oral) WBC Date Value Ref Range Status 05/19/2024 12.3 (H) 4.8 - 10.8 K/mcL Final 04/07/2024 4.4 (L) 4.8 - 10.8 K/mcL Final 03/08/2024 4.6 (L) 4.8 - 10.8 K/mcL Final Creatinine Date Value Ref Range Status 05/19/2024 0.67 (L) 0.70 - 1.30 mg/dL Final 05/11/2024 0.61 (L) 0.70 - 1.30 mg/dL Final 04/07/2024 0.63 (L) 0.70 - 1.30 mg/dL Final Estimated Creatinine Clearance: 125 mL/min (A) (by C-G formula based on SCr of 0.67 mg/dL (L)). mL/min Cockcroft-Gault Recent Results (from the past 168 hour(s)) Blood Culture, Peripheral Draw #1 Collection Time: 05/19/24 6:13 PM Specimen: Blood, Venous Result Value Ref Range Culture, Blood Culture in progress Blood Culture, Peripheral Draw #2 Collection Time: 05/19/24 6:13 PM Specimen: Blood, Venous Result Value Ref Range Culture, Blood Culture in progress Patient is also receiving the following antibiotic(s): Piperacillin/Tazobactam Plan Patient has received a Initial vancomycin dose of 1500 mg on 05/19/24 at 19:39. Pharmacy will initiate a maintenance dose of 1500 mg every 8 hours starting on 05/20/24 at 04:00. Per protocol, therapy is expected to last more than 5 days and therefore a trough indicated. A trough has been ordered for 05/21/24 at 03:00 prior to 5th dose due on 05/21/24 at 04:00. Therapy is planned to end on 05/26/24 at this time. Pharmacy will continue to monitor and recommend changes as necessary. Britt Macias PharmD 05/19/24 8:34 PM EST * Jose Cruz Cordon MD - 05/20/2024 5:38 PM EST Images from the original note were not included. [facility] PROGRESS NOTE Date: 05/20/2024 Author: Jose Cruz Cordon MD Patient ID: Jonny Gordon is a 64 y.o. male : 1960 MR#: [id number] SUBJECTIVE Subjective Chart and EMR reviewed overnight events reviewed case discussed with the floor nurse when he arrived to room 508 Patient admitted with sepsis, lactic acidosis with initial lactic acid 4, bilateral leg cellulitis and urosepsis, pre-existing Alex's catheter in place, receiving Zosyn and vancomycin, no fever, platelets 90, potassium 3.3, Allergies Codeine, Nystatin, and Semaglutide Current Medications: aspirin, 81 mg, oral, Daily atorvastatin, 20 mg, oral, Nightly enoxaparin, 60 mg, subcutaneous, q12h LIZETTE furosemide, 40 mg, intravenous, BID AC [Held by provider] furosemide, 40 mg, oral, Daily piperacillin-tazobactam, 3.375 g, intravenous, q6h potassium chloride oral extended release, 40 mEq, oral, Once spironolactone, 100 mg, oral, Daily vancomycin, 1,500 mg, intravenous, q8h PRN medications: albuterol, naloxone, ondansetron (ZOFRAN-ODT) disintegrating tablet OR ondansetron, oxyCODONE, zolpidem OBJECTIVE Vitals: 05/20/24 0639 05/20/24 0951 05/20/24 1451 05/20/24 1530 BP: 134/65 117/64 (!) 122/48 BP Location: Right arm Patient Position: Lying Pulse: 104 103 97 Resp: 16 20 Temp: 36.4 ??C (97.5 ??F) 37 ??C (98.6 ??F) 36.5 ??C (97.7 ??F) TempSrc: Temporal SpO2: 94% 91% 92% Weight: 159 kg (349 lb 14.4 oz) Height: 1.676 m (66 ) Physical Exam Morbidly obese, BMI 56, not in apparent pain or distress, but appears acutely ill Pupil equal reactive, abdomen obese soft nontender, Chest limited bilateral air entry with no wheezing at this time, 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 and oriented, generalized weakness Alex's catheter in place with dark yellow urine Massive bilateral nonpitting leg edema with the erythema of both legs, Weeping of both legs Skin: Intertrigo in all skin folds LABS HEMATOLOGY Lab Results Component Value Date WBC 8.8 05/20/2024 HGB 11.2 (L) 05/20/2024 HCT 32.8 (L) 05/20/2024 MCV 100.6 (H) 05/20/2024 PLT 90 (L) 05/20/2024 CHEMISTRY Lab Results Component Value Date GLUCOSE 162 (H) 05/20/2024 NA 134 05/20/2024 K 3.3 (L) 05/20/2024 CO2 27 05/20/2024 CL 102 05/20/2024 BUN 18 05/20/2024 CREATININE 0.56 (L) 05/20/2024 EGFR 109 05/20/2024 CALCIUM 7.9 (L) 05/20/2024 MG 2.1 05/19/2024 PHOS 3.3 02/27/2024 ANIONGAP 5 05/20/2024 Imaging: XR Chest 2 Views Narrative: PROCEDURE: PA and lateral radiographs of the chest. HISTORY: chest pain. COMPARISON: 09/23/2008. FINDINGS: There is a small left moderate layering left pleural effusion which is new compared with the previous study. A small right pleural effusion seen on the previous study is no longer present. Heart sizeis normal. Atherosclerotic calcification of the aorta. No pneumothorax. Pulmonary vasculature appears normal. Degenerative changes of the spine and shoulders. Impression: Small-moderate left pleural effusion. -------- FINAL REPORT -------- Dictated By: Frank Vivar Dictated Date: 05/20/2024 08:05 ET Assigned Physician: Frank Vivar Reviewed and Electronically Signed By: Frank Vivar Signed Date: 05/20/2024 08:06 ET Workstation ID: [id number] Transcribed By: Self Edit Transcribed Date: 05/20/2024 08:05 ET ASSESSMENT & PLAN Sepsis due to urinary tract infection and bilateral leg cellulitis UTI in presence of indwelling Alex catheter Lactic acidosis -presented complaint of lower extremity swelling -Vital's are notable for mild tachycardia in the 100s -Labs are notable for creatinine of 0.67, alk phos 153, lactic of 4.4, troponin of 7, 7, BNP of 40,white blood cell count of 12.3, hemoglobin of 13.3, hematocrit of 39.2 platelets of 116, INR is 1.4, UA showed many bacteria, elevated red blood cells, white blood cells, moderate leuk esterase and positive nitrates. -Patient was given ceftriaxone, Lasix, Zosyn and vancomycin in the ED. -Continue with vancomycin and Zosyn -Give albumin for lactic acidosis and continue to trend throughout the night -Blood cultures ordered, follow-up on urine culture -AM labs Bilateral lower extremity cellulitis -Was given vancomycin in the ED, will continue Bilateral nonpitting leg edema Severe bilateral leg edema, probably due to underlying chronic right heart failure and sleep apnea Will change oral diuretics to intravenous diuretics cutaneous candidiasis Infection of the skin folds Add nystatin Thrombocytopenia Presents due to sepsis Carefully monitor platelet count Watch for bleeding Hypokalemia Supplement Potassium level specially with the use of iv Lasix liver cirrhosis Hemochromatosis -LFTs within normal limits with exception of mildly elevated alk phos of 153, platelets are 116 (have ranged from 90s to 100s), continue to trend -Received therapeutic blood draws every 3 months -Continue with spironolactone and Lasix Hepatotoxic's Chronic urinary retention Alex's catheter at home Cath changed 2 days before coming to the hospital via the [facility] Hyperlipidemia -Continue statin Chronic back pain -Continue oxycodone as needed NICOLE -Continue CPAP at bedtime Morbid obesity BMI 56, overall prognosis is poor if no drastic weight loss measures are can completed DAILY CARE CHECKLIST Length of Stay: 02h 50m VTE Prophylaxis: Sub Q Lovenox: high dose Resuscitation: Full Code - Default IV Access: periphrsal Tubes, Catheters, Devices: Alex's catheter PCP: GIORGI Hummel Disposition/patient need hospital stay because : Sepsis with lactic acidosis Discussed with: Patient, nursing at the bedside in room 508, case management Total time spent35 minutes doing reviewing the electronic medical record , interviewing patient, gathering information, performing physical exam, formulating plan, explaining management plan to patient, coordinating care with RN and case managmenet, documentation and placing orders. This dictation was performed using Keynoir speech recognition software. Word substitution may have occurred and may have gone unnoticed and uncorrected If you have questions, please do not hesitate to call our hospital at [phone] * Addie Hernandez RN - 05/20/2024 4:03 PM EST 05/20/24 1601 Initial Transition Plan Initial Transition Plan Detention Facility Discharge Planning Living Arrangements Alone Type of Residence Private residence Assistive Devices Eyeglasses;Wheelchair;Shower chair;Walker;Other (Comment) (Stair Lift, C-Pap) Support Systems Other (Comment) Medication Coverage Has Med Coverage Under Insurance Plan Yes Medication Affordability No concerns related to payment for meds Anticipated Discharge Needs Discipline following for SNF placement Policy Change Clerks Supervisor Informed Choice Informed Choice Given? Yes ICC met with patient at bedside. Patient lives alone, owns a walker, wheelchair, stair lift, Lifting recliner chair. He uses a CPAP and owns a nebulizer. He has 40.25 hours/week for a [employer] through [facility]. He states he is active with [email or web address]. [facility] talked about the possibility of going to [facility] once he is medically stable. Patient is in agreement. States he has been to [facility] in the past and was very happy there and is agreeable to go back. Patient states he just wants to get stronger and better. * Mirta Menon RN - 05/20/2024 1:40 PM EST ED RN HANDOFF (All Powell Below Must Be Completed) Reason/Diagnosis for Admission: Type of Admission: [x] Medsurg, [] Telemetry Already in a Hospital Bed: [x] Yes / [] No Room Considerations/Precautions (ex: fever, diarrhea, or any infectious concerns): [] Yes / [x] No Tooling Manager: [] Yes / [x] No If YES, Cardiac Rhythm: [] NSR, [] SB, [] ST, [] A-FIB, [] A-Flutter, [] Pacemaker, [] 1st Degree HB, [] 2nd Degree HB, [] 3rd Degree HB Reason for Tooling Manager: VS: Visit Vitals BP 117/64 Pulse 103 Temp 37 ??C (98.6 ??F) Resp 16 Ht 1.676 m (66 ) Wt 160 kg (353 lb) SpO2 91% BMI 56.98 kg/m?? Smoking Status Former BSA 2.55 m?? Current Mental Status: A/O x [x]4, []3, []2, []1 Current Ambulation Status: IV Access: [x] Yes / [] No Field IV present: [] Yes / [x] No Hx of Violence: [] Yes / [x] No / [] Unknown Fall Risk:[x] Yes / [] No Yellow Bracelet Applied [x] Yes / [] No Yellow Socks Applied [] Yes / [] No Patient Belongings inventoried and BL completed: [x] Yes / [] No Patient belongings stored in the security closet: [] Yes (If Yes please supply Security bag #): [x] No Patient Medications stored in Pharmacy: [] Yes (If Yes please supply Medication Security bag #): [x] No ED Summary of Care: Chronic alex cath in place. +UTI. Uses CPAP. Submitted by and Phone Extension: Mirta Menon RN [phone] * Joan Beckford RN - 05/19/2024 3:48 PM EST BIBA, from home, stating that he has worsening bilateral leg edema. Patient denies PMHx of CHF but currently on Lasix. Patient was advised by his PCP to come to the ER for IV diuretic. Patient was diagnosed with UTI 2 days ago and has been on antibiotic for 2 days. Patient has chronic indwelling urinary catheter, last time it was changed per EMS is 2 days ago. * Emily Singh DO - 05/19/2024 3:33 PM EST Emergency Medicine Note Patient Name: Jonny Gordon Initial Evaluation: 05/19/2024 : 1960 Patient's PCP: GIORGI Hummel Emergency Physician: Emily Singh DO History of Present Illness Chief Complaint: Chief Complaint Patient presents with Male Problem Patient was diagnosed with UTI 2 days ago and has been on antibiotic for 2 days. Patient has chronic indwelling urinary catheter, last time it was changed per EMS is 2 days ago. Leg Swelling BIBA, from home, stating that he has worsening bilateral leg edema. Patient denies PMHx of CHF but currently on Lasix. Patient was advised by his PCP to come to the ER for IV diuretic. HPI: 64-year-old male history of liver cirrhosis, morbid obesity, diabetes, hypertension presented hospital today for evaluation of bilateral leg swelling. Patient has a chronic Alex catheter in place as well. This was recently switched and changed 2 days ago. Patient states that he follows Dr. 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 Patient states the visiting nurse instructed him to come to the ER due to increased welling in his legs. Stated that he needs further diuresis. Denies any fever he is currently taking ciprofloxacin at this time for his UTI. He state he has 2 more days left. ROS: I have performed a ROS with [...] COLONOSCOPY N/A PROCEDURE: HISTORICAL COLONOSCOPY ESOPHAGOGASTRODUODENOSCOPY PROCEDURE: ME ESOPHAGOGASTRODUODENOSCOPY TRANSORAL DIAGNOSTIC OTHER SURGICAL HISTORY Right PROCEDURE: ME STAB PHLEBT VARICOSE VEINS 1 XTR > 20 INCS Social History Tobacco Use Smoking status: Former Current packs/day: 0.00 Types: Cigarettes Quit date: 04/21/2003 Years since quittin.0 Smokeless tobacco: Never Substance Use Topics Alcohol [...] hours if needed for shortness of breath. aspirin 81 mg EC tablet Take 1 tablet (81 mg total) by mouth 1 (one) time each day. cholecalciferol (VITAMIN D-3) 50 mcg (2,000 unit) tablet 1 tablet (2,000 Units total). furosemide (LASIX) 40 mg tablet Take 1 tablet (40 mg total) by mouth 1 (one) time each day. 30 each11 naloxone (NARCAN) 4 mg/0.1 mL nasal spray [...] day. spironolactone (ALDACTONE) 100 mg tablet Take 1 tablet (100 mg total) by mouth 1 (one) time each day. 90 each 0 spironolactone (ALDACTONE) 25 mg tablet Take 2 tablets (50 mg total) by mouth 1 (one) time each day. 60 each 0 zolpidem (AMBIEN) 10 mg tablet Take 1 tablet (10 mg total) by mouth at bedtime as needed. for insomnia Physical Exam ED Triage Vitals [05/19/24 1547] Temp Heart Rate Resp BP 36.8 ??C (98.2 ??F) 105 18 129/63 SpO2 Temp Source Heart Rate Source Patient Position 92 % Oral Monitor Lying BP Location FiO2 (%) Left arm -- General: Pleasant, no distress, interacting appropriately Head: Normacephalic, atraumatic ENT: oral mucosa moist, neck supple, no tracheal deviation Cardiovascular: regular rate, regular rhythm, no murmurs, rubbing, gallops Respiratory: CTAB, no wheeze, rales, rhonchi Gastrointestinal: Soft, non distended, non tender, non guarding Extremities: Patient has pitting edema bilateral extremity. He has some blistering on the left lower extremity with redness. Consistent with cellulitis. Neurological: Awake and alert, no facial droop noted Skin: Warm and dry Psychiatric: Appropriate mood and thoughts Results Labs Reviewed COMPREHENSIVE METABOLIC PANEL - Abnormal Result Value Sodium 134 Potassium 3.8 Chloride 99 CO2 26 Anion Gap 9 Glucose 170 (*) BUN 19 Creatinine 0.67 (*) eGFR 103 BUN/Creatinine Ratio 28.4 Calcium 8.5 AST (SGOT) 25 ALT (SGPT) 19 Alkaline Phosphatase 153 (*) Total Protein 6.0 Albumin 2.4 (*) Total Bilirubin 3.1 (*) LIPASE - Abnormal Lipase 76 (*) CBC WITH AUTO DIFFERENTIAL - Abnormal WBC 12.3 (*) RBC 3.90 (*) Hemoglobin 13.3 (*) Hematocrit 39.2 (*) MCV 100.5 (*) MCH 34.1 (*) MCHC 33.9 RDW 15.9 (*) Platelets 116 (*) MPV 10.9 NRBC 0.0 NRBC Absolute 0.00 Neutrophils Relative 83.0 Lymphocytes Relative 5.6 Monocytes Relative 8.4 Eosinophils Relative 0.8 Basophils Relative 0.5 Immature Granulocytes Relative 1.7 Neutrophils Absolute 10.23 (*) Lymphocytes Absolute 0.69 (*) Monocytes Absolute 1.03 (*) Eosinophils Absolute 0.10 Basophils Absolute 0.06 Immature Granulocytes Absolute 0.21 (*) URINALYSIS WITH REFLEX MICROSCOPIC AND CULTURE - Abnormal Specific [place] Urine 1.033 (*) pH, Urine 7.5 Leukocytes, Urine Moderate (*) Nitrite, Urine Positive (*) Protein, Urine 100 (*) Glucose, Urine Negative Ketones, Urine Trace (*) Urobilinogen, Urine 1.0 Bilirubin, Urine Small (*) Blood, Urine Large (*) RBC, Urine 400.0 (*) WBC, Urine 100.0 (*) Squamous Epithelial, Urine 0 Crystals, Urine Value: HEAVY TRIPLE PHOS, HEAVY LIZ PHOSPHATE,MODERATE CALCIUM OXALATE Bacteria, Urine Many (*) Hyaline Casts, Urine 0.0 LACTATE - Abnormal Lactate 4.4 (*) PROTHROMBIN TIME WITH INR - Abnormal Protime 16.9 (*) INR 1.4 TROPONIN I HIGH SENSITIVITY - Normal High Sensitivity Troponin I 7 Narrative: High levels of biotin in samples may falsely decrease hsTroponin values. Use caution when interpreting hsTroponin results in patients taking biotin who exhibit renal impairment (eGFR <60) or in patients taking more than 20 mg/day of biotin. TROPONIN I HIGH SENSITIVITY - Normal High Sensitivity Troponin I 7 Narrative: High levels of biotin in samples may falsely decrease hsTroponin values. Use caution when interpreting hsTroponin results in patients taking biotin who exhibit renal impairment (eGFR <60) or in patients taking more than 20 mg/day of biotin. MAGNESIUM - Normal Magnesium 2.1 B-TYPE NATRIURETIC PEPTIDE - Normal BNP 40 CULTURE URINE CBC AND DIFFERENTIAL Narrative: The following orders were created for panel order CBC and differential. Procedure Abnormality Status --------- ------ CBC auto differential[[id number]] Abnormal Final result Please view results for these tests on the individual orders. URINALYSIS WITH REFLEX MICROSCOPIC AND CULTURE Narrative: The following orders were created for panel order Urinalysis with reflex microscopic and culture. Procedure Abnormality Status --------- ------ Urinalysis with reflex ...[[id number]] Abnormal Final result Pugh urine culture tube[[id number]] In process Please view results for these tests on the individual orders. Abnormal Labs Reviewed COMPREHENSIVE METABOLIC PANEL - Abnormal; Notable for the following components: Result Value Glucose 170 (*) Creatinine 0.67 (*) Alkaline Phosphatase 153 (*) Albumin 2.4 (*) Total Bilirubin 3.1 (*) All other components within normal limits LIPASE - Abnormal; Notable for the following components: Lipase 76 (*) All other components within normal limits CBC WITH AUTO DIFFERENTIAL - Abnormal; Notable for the following components: WBC 12.3 (*) RBC 3.90 (*) Hemoglobin 13.3 (*) Hematocrit 39.2 (*) MCV 100.5 (*) MCH 34.1 (*) RDW 15.9 (*) Platelets 116 (*) Neutrophils Absolute 10.23 (*) Lymphocytes Absolute 0.69 (*) Monocytes Absolute 1.03 (*) Immature Granulocytes Absolute 0.21 (*) All other components within normal limits URINALYSIS WITH REFLEX MICROSCOPIC AND CULTURE - Abnormal; Notable for the following components: Specific [place] Urine 1.033 (*) Leukocytes, Urine Moderate (*) Nitrite, Urine Positive (*) Protein, Urine 100 (*) Ketones, Urine Trace (*) Bilirubin, Urine Small (*) Blood, Urine Large (*) RBC, Urine 400.0 (*) WBC, Urine 100.0 (*) Bacteria, Urine Many (*) All other components within normal limits LACTATE - Abnormal; Notable for the following components: Lactate 4.4 (*) All other components within normal limits PROTHROMBIN TIME WITH INR - Abnormal; Notable for the following components: Protime 16.9 (*) All other components within normal limits XR Chest 2 Views (Results Pending) I have discussed the incidental/abnormal [...] Time None ? Medical Decision Making Medications vancomycin (VANCOCIN) IVPB 1,500 mg in 0.9 % sodium chloride 500 mL - CNR (has no administration intime range) piperacillin-tazobactam (ZOSYN) 4.5 g in sodium chloride 0.9 % 100 mL IVPB (has no administration in time range) ondansetron ODT (ZOFRAN-ODT) disintegrating tablet 4 mg (has no administration in time range) Or ondansetron (PF) (ZOFRAN) injection 4 mg (has no administration in time range) furosemide (LASIX) injection 40 mg (40 mg intravenous Given 05/19/24 1637) cefTRIAXone (ROCEPHIN) 1 g in sterile water 10 mL IV syringe (1 g intravenous Given 05/19/24 1731) ED Course as of 05/19/24 1753 Wed May 19, 2024 1610 64-year-old male history of liver cirrhosis, morbid obesity, diabetes, hypertension presented hospital today for bilateral lower leg swelling. He does have a chronic Alex catheter as well. Will obtain liver labs at this time including PT/INR, CMP, CBC. UA will be obtained. Patient does have a known UTI at this time. Patient Alex catheter appears to be clogged from sediments. Will havethe nurse flush this. Will plan to give patient 40 mg IV Lasix here magnesium will be obtained as well to assess his electrolyte status. Anticipate patient will likely be admitted to the hospital for treatment of the cellulitis and along with further diuresis [TC] 1749 Patient lab work did show some leukocytosis 12.3. Patient does have elevated lactic acid at 4.4. Patient does not appear to be toxic to me on exam. I think his lactic acid has component of do with his cirrhosis. UA was positive for UTI. Creatinine is normal. Patient INR is 1.4. Will plan to give patient vancomycin and Zosyn. I did order IV ceftriaxone early on for coverage ofhis UTI. However given his history of UTI will cover for Pseudomonas as well. With the redness and cellulitis we will also give him vancomycin for MRSA coverage. Patient will be admitted to the hospital for further diuresis and treatment of his infection. [TC] 175 I am withholding fluid bolus due to the patient's sign of fluid overload at this time. Patientblood pressure is stable. Antibiotic will be given. Lactate acid may be elevated secondary to his liver cirrhosis. [TC] ED Course User Index [TC] Emily Singh DO Clinical Impressions as of 05/19/241752 Urinary tract infection without hematuria, site unspecified Bilateral leg edema Hepatic cirrhosis, unspecified hepatic cirrhosis type, unspecified whether ascites present (CMS/HCC) Cellulitis of left leg Procedures Procedures Diagnosis 1. Urinary tract infection without hematuria, site unspecified 2. Bilateral leg edema 3. Hepatic cirrhosis, unspecified hepatic cirrhosis type, unspecified whether ascites present (CMS/HCC) 4. Cellulitis of left leg Disposition Admit to Inpatient ED Prescriptions None Physician Attestation Emily Singh, 05/19/24 1549 Emily Singh, 05/19/24 1610 Emily Singh, 05/19/241752 documented in this encounter H&P Notes * GIORGI Giordano - 05/19/2024 7:44 PM EST Images from the original note were not included. [facility] HISTORY [facility] PHYSICAL Please contact author [GIORGI Giordano] via [employer]. Patient: Jonny Gordon Admission Date/Time: 05/19/2024 3:40 PM : 1960 [64 y.o.] Patient's PCP: GIORGI Hummel Attending Provider: Rosaura Iglesias MD CHIEF COMPLAINT Lower extremity swelling HISTORY OF PRESENT ILLNESS Mr. Gordon is a 84-year-old male with PMH obesity, COPD, chronic lumbar pain on opioids, left hip avascular necrosis, diabetes mellitus type 2, dyslipidemia, liver cirrhosis, hemochromatosis amongst others seen today for complaint of lower extremity swelling. Patient reports that he was diagnosed recently with UTI and has been placed on ciprofloxacin for which she has been taking. He states he has2 days left. Has a chronic indwelling Alex which was also changed 2 days ago. He reports that he has had worsening lower extremity swelling but denies any chest pain, shortness of breath, vomiting, abdominal pain, diarrhea, adductive cough, fevers or chills. He was instructed by visiting nurses rosemary into the ED for further diuresis. Vitals are as follows: Temperature of of 36.8, heart rate of 105, respiratory rate of 18, blood pressure of 129/63 and pulse ox of 92% on room air. Labs are notable for creatinine of 0.67, alk phos 153, lactic of 4.4, troponin of 7, 7, BNP of 40, white blood cell count of 12.3, hemoglobin of 13.3, hematocrit of 39.2 platelets of 116, INR is 1.4, UA showed many bacteria, elevated red blood cells, white blood cells, moderate leuk esterase and positive nitrates. Patient was given ceftriaxone, Lasix Zosyn and vancomycin in the ED. Patient will be transferred to the care of [facility] staff for further management of their sepsis, UTI, cellulitis. Review of Systems Review of Systems 10 point review of systems negative as otherwise stated in the HPI MEDICAL HISTORY Past Medical History Past Medical History: Diagnosis Date ??? Anxiety 04/13/2018 DX:Anxiety ??? Benign colonic polyp 12/12/2014 DX:Benign colonic polyp ??? Chronic allergic conjunctivitis 04/13/2018 DX:Chronic allergic conjunctivitis ??? Cirrhosis of liver (CMS/HCC) 12/03/2017 DX:Cirrhosis of liver (HCC) ??? Depression with anxiety 12/12/2014 DX:Depression with anxiety ??? Diabetes mellitus type 2, uncomplicated (CMS/HCC) 12/12/2014 DX:Diabetes mellitus type 2, uncomplicated (HCC) ??? Diverticulosis 05/29/2010 DX:Diverticulosis ??? Erosive gastritis 10/13/2017 DX:Erosive gastritis ??? Esophageal varices (CMS/HCC) 12/03/2017 DX:Esophageal varices (HCC) ??? Hyperlipidemia 12/12/2014 DX:Hyperlipidemia ??? Hypertension 12/14/2014 DX:Hypertension ??? Insomnia 04/13/2018 DX:Insomnia ??? Internal hemorrhoids 07/27/2010 DX:Internal hemorrhoids ??? Iron overload syndrome 12/03/2017 DX:Iron overload syndrome ??? Morbid obesity (CMS/HCC) 09/10/2017 DX:Morbid obesity (HCC) ??? Obstructive sleep apnea 05/21/2016 DX:Obstructive sleep apnea ??? Thoracic or lumbosacral neuritis or radiculitis 09/13/2011 DX:Thoracic or lumbosacral neuritis or radiculitis ??? Vitamin D deficiency 07/27/2012 DX:Vitamin D deficiency Past Surgical History Past Surgical History: Procedure Laterality Date ??? BACK SURGERY PROCEDURE: HISTORICAL BACK SURGERY; COMMENT: spinal diskectomy, osteophytectomy x4 ??? COLONOSCOPY N/A PROCEDURE: HISTORICAL COLONOSCOPY ??? ESOPHAGOGASTRODUODENOSCOPY PROCEDURE: ME ESOPHAGOGASTRODUODENOSCOPY TRANSORAL DIAGNOSTIC ??? OTHER SURGICAL HISTORY Right PROCEDURE: ME STAB PHLEBT VARICOSE VEINS 1 XTR > 20 INCS Social History reports that he quit smoking about 21 years ago. His smoking use included cigarettes. He has never used smokeless tobacco. He reports current drug use. Drug: Marijuana/Cannabis. He reports that he does not drink alcohol. Previously ambulated with the use of a walker short distances prior to last admission in February but reports now he is seldom walking. Family History family history includes COPD in his mother; Diabetes in his sister; Drug abuse in his brother; Heart attack in his grandparent; Liver disease in his brother; Obesity in his half-brother and half-sister; Other: other in his father. Allergies is allergic to codeine, nystatin, and semaglutide. Home Medications No current facility-administered medications on file prior to encounter. Current Outpatient Medications on File Prior to Encounter Medication Sig Dispense Refill ??? albuterol 2.5 mg/0.5 mL solution for nebulization nebulizer solution Take 0.5 mL (2.5 mg total)by nebulization every 6 (six) hours if needed for shortness of breath. ??? aspirin 81 mg EC tablet Take 1 tablet (81 mg total) by mouth 1 (one) time each day. ??? cholecalciferol (VITAMIN D-3) 50 mcg (2,000 unit) tablet 1 tablet (2,000 Units total). ??? furosemide (LASIX) 40 mg tablet Take 1 tablet (40 mg total) by mouth 1 (one) time each day. 30 each 11 ??? naloxone (NARCAN) 4 mg/0.1 mL nasal spray Administer 1 each (4 mg total) into affected nostril(s). ??? oxyCODONE (OXY-IR) 5 mg immediate release capsule Take 2 capsules (10 mg total) by mouth every 4 (four) hours if needed for severe pain. Max Daily Amount: 60 mg 15 capsule 0 ??? rosuvastatin (CRESTOR) 5 mg tablet Take 1 tablet (5 mg total) by mouth 1 (one) time each day. ??? spironolactone (ALDACTONE) 100 mg tablet Take 1 tablet (100 mg total) by mouth 1 (one) time each day. 90 each 0 ??? zolpidem (AMBIEN) 10 mg tablet Take 1 tablet (10 mg total) by mouth at bedtime as needed. for insomnia ??? [DISCONTINUED] spironolactone (ALDACTONE) 25 mg tablet Take 2 tablets (50 mg total) by mouth 1 (one) time each day. 60 each 0 OBJECTIVE Vitals Visit Vitals BP 129/63 (BP Location: Left arm, Patient Position: Lying) Pulse 105 Temp 36.8 ??C (98.2 ??F) (Oral) Resp 18 Temp (24hrs), Av.8 ??C (98.2 ??F), Min:36.8 ??C (98.2 ??F), Max:36.8 ??C (98.2 ??F) Body mass index is 56.98 kg/m??. No results found for: PTWT , PTHT Physical Examination Physical Exam General: Older gentleman sitting upright in the stretcher in no acute distress, calm Skin: Appropriate tone for ethnicity, warm, dry. Patient has increased warmth and redness appreciated of the left leg and extending over his knee HEENT: normocephalic, atraumatic, sclera nonicteric, CALEB Pulmonary: Lungs clear to auscultation in all lung powell bilaterally. No wheezes railes or rhonchiappreciated, no respiratory distress, no accessory muscle use. Cardiac: S1 and S2 appreciated, no murmurs, rubs or gallops, 3+ pitting peripheral edema Abdomen: Soft, non-tender, nondistended, no guarding or rebound tenderness appreciated. Bowel sounds normoactive. WIRE CHIEF/: Alex in place with a small amount of yellow urine appreciated in the Alex bag MSK: Full range of motion in upper and lower extremities Neuro: Alert and oriented x4. No focal neurological deficits appreciated. No facial droop. Psych: Normal affect. ECG: Was ECG Performed? Yes . Sinus Rhythm? No. Signs of acute ischemia? No Further Interpretation: 109 bpm sinus tachycardia LAB RESULTS (most recent) HEMATOLOGY Lab Results Component Value Date WBC 12.3 (H) 05/19/2024 HGB 13.3 (L) 05/19/2024 HCT 39.2 (L) 05/19/2024 MCV 100.5 (H) 05/19/2024 PLT 116 (L) 05/19/2024 CHEMISTRY Lab Results Component Value Date GLUCOSE 170 (H) 05/19/2024 NA 134 05/19/2024 K 3.8 05/19/2024 CO2 26 05/19/2024 CL 99 05/19/2024 BUN 19 05/19/2024 CREATININE 0.67 (L) 05/19/2024 EGFR 103 05/19/2024 CALCIUM 8.5 05/19/2024 MG 2.1 05/19/2024 PHOS 3.3 02/27/2024 ANIONGAP 9 05/19/2024 Radiology XR Chest 2 Views (Results Pending) ASSESSMENT & PLAN Sepsis UTI Lactic acidosis -Patient was seen today with complaint of lower extremity swelling -Vital's are notable for mild tachycardia in the 100s -Labs are notable for creatinine of 0.67, alk phos 153, lactic of 4.4, troponin of 7, 7, BNP of 40,white blood cell count of 12.3, hemoglobin of 13.3, hematocrit of 39.2 platelets of 116, INR is 1.4, UA showed many bacteria, elevated red blood cells, white blood cells, moderate leuk esterase and positive nitrates. -Patient was given ceftriaxone, Lasix, Zosyn and vancomycin in the ED. -Continue with vancomycin and Zosyn -Give albumin for lactic acidosis and continue to trend throughout the night -Blood cultures ordered, follow-up on urine culture -AM labs Left lower extremity cellulitis -Was given vancomycin in the ED, will continue Liver cirrhosis Hemochromatosis -LFTs within normal limits with exception of mildly elevated alk phos of 153, platelets are 116 (have ranged from 90s to 100s), continue to trend -Received therapeutic blood draws every 3 months -Continue with spironolactone and Lasix Hyperlipidemia -Continue statin Chronic back pain -Continue oxycodone as needed NICOLE -Continue CPAP at bedtime Admission checklist [x] Code status: Full Code - Default [x] VTE Prophylaxis: Lovenox subq [x] Diet order on admission: Dietary Orders (From admission, onward) Start Ordered 05/19/24 1745 Adult diet [facility]; General; Regular Diet effective now Question Answer Comment Location [facility] Diet Type (req) General General Diet Regular 05/19/24 1744 [x] Lines, tubes, drains: IV access [x] Medication reconciliation Health Care proxy with Phone number Emergency contact listed as Elinor [phone] Cosigned by Rosaura Iglesias MD at 05/23/2024 12:10 PM EST Associated attestation - Rosaura Iglesias MD - 05/23/2024 12:10 PM EST This is a split/shared visit with GIORGI Giordano. I personally performed the medical decision making (MDM) for the care of this patient on 05/19/24 asdocumented below Patient is 84-year-old male with multiple medical problems recent UTI. He is currently presenting with left lower extremity pain and edema I have reviewed his medical records independently as well ashis vital signs and laboratory data. Case was discussed with ED team and final decision has been made to admit patient with UTI and bilateral leg cellulitis. As well as sepsis due to UTI with lactic acidosis. Patient meets criteria for severe sepsis. His lactic acid is 4.4. I agree with Zosyn and vancomycin. Vancomycin is a high risk drug which will require monitoring for toxicity. Continue aggressive hydration. Monitor leg swelling. Chronic management as above Rosaura Iglesias MD 05/23/24 12:07 PM EST documented in this encounter Consult Notes * Han Sloan, DO - 05/24/2024 2:57 PM EST INITIAL GI CONSULT CONSULTING PROVIDER: Liang Reinoso MD REASON FOR CONSULT: diuretic resistant ascites HPI: 64-year-old male who is following up at [facility] but establishing care with me for the first time for management of MASLD and secondary iron overload. 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 The patient is well-known to me from GI clinic. I became his GI doctor a few months ago. He is currently hospitalized at [facility] for sepsis secondary to UTI and a nonocclusive right leg DVT. Over the past several months the patient has been battling new onset and quick accumulating large-volume ascites requiring paracentesis. Initially, his diuretic therapy was somewhat underdosed which has been quickly increased without significant improvement in the frequency of the paracentesis. Hislast paracentesis happened on 05/11, when 7 L of ascites was removed. No SBP. The patient is currently on furosemide 40 mg daily and spironolactone 100 mg with a normal renal function without significant electrolyte disturbances. The possibility of TIPS placement has been discussed with me in GI clinic. A recent CT scan of the abdomen has demonstrated a nonocclusive portal venous thrombosis which appears to be new from prior imaging studies. ROS: GENERAL: No fever, weight loss, weakness. HEENT: No double vision, blurred vision, sorethroat, nasal discharge, nosebleeds. NECK: No pain, swelling, rashes. RESPIRATORY: No cough, wheezing or shortness of breath CARDIOVASCULAR: No chest pain, leg swelling or palpitations GI:As per HPI section MUSCULOSKELETAL: No joint pain or swelling, back pain. No unexplained myalgias. SKIN: No lesions, rash or itching. The rest of the ROS is negative except as mentioned in the HPI section. PAST MEDICAL HISTORY: Patient Active Problem List Diagnosis Esophageal varices (CMS/HCC) Hemochromatosis Hyperlipidemia Hypertension Insomnia Internal hemorrhoids Liver cirrhosis secondary to CASTANEDA (nonalcoholic steatohepatitis) (CMS/HCC) Lymphedema Obstructive sleep apnea Thrombocytopenia (CMS/HCC) Vitamin D deficiency Erosive gastritis Diverticulosis Diabetes mellitus type 2 with neurological manifestations (CMS/HCC) Depression with anxiety COPD (chronic obstructive pulmonary disease) (CMS/HCC) Chronic allergic conjunctivitis Benign colonic polyp Avascular necrosis of bone of hip, left (CMS/HCC) Anxiety Anasarca Candidal intertrigo Severe sepsis (CMS/HCC) PAST SURGICAL HISTORY: Past Surgical History: Procedure Laterality Date BACK SURGERY PROCEDURE: HISTORICAL BACK SURGERY; COMMENT: spinal diskectomy, osteophytectomy x4 COLONOSCOPY N/A PROCEDURE: HISTORICAL COLONOSCOPY ESOPHAGOGASTRODUODENOSCOPY PROCEDURE: ME ESOPHAGOGASTRODUODENOSCOPY TRANSORAL DIAGNOSTIC OTHER SURGICAL HISTORY Right PROCEDURE: ME STAB PHLEBT VARICOSE VEINS 1 XTR > 20 INCS SOCIAL HISTORY: Social History Tobacco Use Smoking status: Former Current packs/day: 0.00 Types: Cigarettes Quit date: 04/21/2003 Years since quittin.1 Smokeless tobacco: Never Substance Use Topics Alcohol use: No Drug use: Yes Types: Marijuana/Cannabis FAMILY HISTORY: Family History Problem Relation Name Age of Onset Other (Other: other) Father cancer from asbestos COPD Mother Drug abuse Brother x2 heroine overdose other brother had addiction to pain meds Liver disease Brother x2 Diabetes Sister 1 Heart attack Grandparent maternal Obesity Half-Sister Obesity Half-Brother MEDICATIONS: No outpatient medications have been marked as taking for the 05/19/24 encounter (Hospital Encounter). ALLERGIES: Allergies Allergen Reactions Codeine Other Reaction(s): Unknown body region Nystatin Cream and Powder Semaglutide Unknown PHYSICAL EXAM: Visit Vitals BP 118/70 (BP Location: Right arm, Patient Position: Lying) Pulse 103 Temp 36.4 ??C (97.5 ??F) (Temporal) Resp 19 Ht 1.676 m (66 ) Wt 152 kg (335 lb 4.8 oz) SpO2 93% BMI 54.12 kg/m?? Smoking Status Former BSA 2.49 m?? APPEARANCE: No distress. Non-toxic appearing. HEART: RRR with normal S1 and S2, no murmurs appreciated LUNG: CTA on anterior exam. Not on supplemental O2. ABDOMEN: Obese, nonpalpable masses. No tense ascites. No caput. RECTAL: Exam deferred EXTREMITIES: No edema. NEURO: AOx3. No focal weaknesses. SKIN: No rashes. No bruising. No jaundice. LABS: Lab Results Component Value Date WBC 10.2 05/24/2024 HGB 12.3 (L) 05/24/2024 HCT 36.9 (L) 05/24/2024 MCV 102.2 (H) 05/24/2024 PLT 146 05/24/2024 Lab Results Component Value Date ALT 21 05/21/2024 AST 31 05/21/2024 ALKPHOS 139 (H) 05/21/2024 BILITOT 3.0 (H) 05/21/2024 Lab Results Component Value Date NA 133 05/24/2024 K 3.5 05/24/2024 CL 94 (L) 05/24/2024 CO2 32 05/24/2024 GLUCOSE 127 (H) 05/24/2024 BUN 12 05/24/2024 CREATININE 0.62 (L) 05/24/2024 CALCIUM 8.2 (L) 05/24/2024 PROT 5.4 (L) 05/21/2024 ALBUMIN 2.3 (L) 05/21/2024 BILITOT 3.0 (H) 05/21/2024 AST 31 05/21/2024 ALT 21 05/21/2024 PHOS 2.8 05/24/2024 MG 2.1 05/24/2024 ALKPHOS 139 (H) 05/21/2024 EGFR 105 05/24/2024 Lab Results Component Value Date LIPASE 76 (H) 05/19/2024 IMAGIN/21 ultrasound independently reviewed. There is large volume paracentesis. Liver appears cirrhotic. IMPRESSION: 1. Bilateral leg edema 2. Urinary tract infection without hematuria, site unspecified 3. Hepatic cirrhosis, unspecified hepatic cirrhosis type, unspecified whether ascites present (CMS/HCC) 4. Cellulitis of left leg 5. Severe sepsis (CMS/HCC) 6. Decompensated cirrhosis with ascites 7. Nonocclusive portal venous thrombosis 8. Diuretic persistent ascites PLAN: The patient is hemodynamically stable without evidence of overt GI bleed or hepatic encephalopathy.He does have recurrent large-volume ascites despite progressively increasing diuretic therapy. There is no evidence of kidney disease or electro disturbances. The patient continues to be anasarcic with lower extremity edema, abdominal wall edema and significant ascites. Today we had a irasema discussion with the patient and his sister who is at the bedside. After some shared decision making we decided to continue to optimize diuretic therapy by increasingfurosemide to 60 mg daily and spironolactone 150 mg daily. In the meantime, I we will be making arrangements for him to be evaluated by IR for TIPS. If possible, please obtain a baseline echocardiogram prior to discharge. The patient will be going to a short-term rehab in which his kidney function will be monitored given the increasing doses of diuretics. For management of his nonocclusive portal venous thrombosis he will be on enoxaparin which has beenstarted for his nonocclusive right lower extremity thrombus. This should help preventing further progression of the blood clot burden. The patient will follow-up with me in GI clinic promptly. Orders Placed This Encounter Procedures Culture urine Blood Culture, Peripheral Draw #1 Blood Culture, Peripheral Draw #2 XR Chest 2 Views Troponin I high sensitivity CBC and differential Comprehensive metabolic panel Lipase Magnesium B-type natriuretic peptide Urinalysis with reflex microscopic and culture CBC auto differential Urinalysis with reflex microscopic and culture Pugh urine culture tube Lactate Protime-INR Basic metabolic panel Complete blood count Lactate Vancomycin, trough Please draw prior to vancomycin dose. C-reactive protein Sedimentation rate Magnesium Comprehensive metabolic panel Prothrombin time with INR Phosphorus CBC and differential Hemoglobin A1c Thyroid stimulating hormone with reflex to free t4 and free t3 Lactate CBC auto differential Free thyroxine with reflex to free triiodothyronine Vancomycin, trough Triiodothyronine free Basic metabolic panel Magnesium Phosphorus Prothrombin time with INR Extra Tubes Lavender tube Extra Tubes Lavender tube Vancomycin, trough Basic metabolic panel Phosphorus Complete blood count Basic metabolic panel Magnesium Phosphorus Complete blood count Basic metabolic panel Magnesium Adult diet [facility]; Cardiac, Fluid Restriction; Fluid Restriction 1800 mL;Sodium 2 gm Restriction, Cardiac ACTIVITY Up to chair as tolerated Vital Signs (specify frequency) Place sequential compression device Insert Indwelling Urinary Catheter Catheter care per CHRIS Prevention Tool Discontinue Indwelling Urinary Catheter per CHRIS Prevention Tool Strict intake and output Strict intake and output Weigh patient Wound dressing (Clean with water, pat dry, apply xeroform to denuded, weeping areas, multiple abd pads, wrap with x 3 kerlix roll and x 3 howard wrap base of toes to below knee) Every other day Wound dressing (apply xeroform, large mepilex) Every other day Wound dressing (apply triad) Daily Wound dressing (wash with water, pat dry, apply Interdry ag) Daily Full code - Default Pharmacy to Dose - vancomycin - IV ONLY Wound ostomy eval and treat 6 Wounds Associated Wound ostomy eval and treat Moisture Associated Dermatitis Groin Right;Other (Comment) Inpatient consult to Infectious Diseases Inpatient consult to Urology PT eval and treat CPAP NIV POCT Glucose, blood ECG 12 lead ECG 12 lead PRN ECG 12 lead ECG-Annotated Admit to Inpatient ED to floor bed request Vascular US duplex lower extremity venous bilateral XR CHEST 2 VIEWS ADMIT TO INPATIENT FULL CODE DEFAULT ACTIVITY VITAL SIGNS SEQUENTIAL COMPRESSION DEVICE INSERT INDWELLING CATHETER CATHETER CARE URINARY CATHETER DISCONTINUE STRICT INTAKE AND OUTPUT STRICT INTAKE AND OUTPUT MEASURE WEIGHT WOUND DRESSING WOUND DRESSING WOUND DRESSING WOUND DRESSING ED TO FLOOR BED REQUEST TH PHARMACY TO DOSE - VANCOMYCIN - IV ONLY WOUND OSTOMY EVAL AND TREAT WOUND OSTOMY EVAL AND TREAT IP CONSULT TO INFECTIOUS DISEASES IP CONSULT TO UROLOGY VAS US DUPLEX LOWER EXT VENOUS BILAT ADULT DIET PT EVAL AND TREAT . I spent a total of 65 minutes today reviewing the chart/medical records, speaking with the patient,formulating, discussing and coordinating the treatment plan/management as well as documenting today's encounter. Signatures Board Certified, Gastroenterology and Internal Medicine Gastroenterology and Hepatology Practice [facility] [email or web address] [phone] [place] [address] [address] [place] [address] [email or web address] Diogenes Bertrand MD - 05/21/2024 4:45 PM ESTAssociated Order(s): IP CONSULT TO UROLOGY Urology Consultation Patient Name: Jonny Gordon Patient Date: 05/21/24 Service: Urology Staffing Attending: Diogenes Bertrand MD Assessment / Plan Principal Problem: Severe sepsis (CMS/HCC) Jonny Gordon is a 64 y.o. male admitted on 05/19/2024 for worsening edema and UTI Patient with indwelling Alex catheter due to history of retention as well as possibly for urinary diversion -- Penis is fully buried due to patient's significant obesity as well as his chronic edema with local skin breakdown noted. This is being treated with local wound care. -- Urinary retention with presentation in February and patient notes no voiding trial since then. He has been on Flomax 0.4 mg twice daily which certainly can be continued. -- Voiding trial at this time likely not advisable as, if successful, likely to have considerable urine dribbling all of her his edematous genital tissue that already has some significant skin breakdown. If voiding trial unsuccessful, replacement of Alex catheter will be a challenge. -----> given his ascites, bladder scans would not be useful for determining retention Scrotal support as much as possible. Currently propped up with some cloth as well as pillows. Continue local wound care --> patient states he has been evaluated by the wound care team. -- Diuresis/management of ascites as per primary team Treatment of UTI as per ID -- Given indwelling Alex, some debris is expected to persist in his urine. Intermittent hematuria may be seen. Of course bacteriuria is to be expected. -- CT scan did not reveal any concerning upper tract abnormalities. No signs of upper tract obstruction or stones. Outpatient follow-up with his primary urologist: Dr. Howard with [facility] urology Diogenes Bertrand MD [facility] [phone] Subjective CC: Patient Active Problem List Diagnosis Esophageal varices (CMS/HCC) Hemochromatosis Hyperlipidemia Hypertension Insomnia Internal hemorrhoids Liver cirrhosis secondary to CASTANEDA (nonalcoholic steatohepatitis) (CMS/HCC) Lymphedema Obstructive sleep apnea Thrombocytopenia (CMS/HCC) Vitamin D deficiency Erosive gastritis Diverticulosis Diabetes mellitus type 2 with neurological manifestations (CMS/HCC) Depression with anxiety COPD (chronic obstructive pulmonary disease) (CMS/HCC) Chronic allergic conjunctivitis Benign colonic polyp Avascular necrosis of bone of hip, left (CMS/HCC) Anxiety Anasarca Candidal intertrigo Severe sepsis (CMS/HCC) HPI Jonny Gordon is a 64 y.o. male admitted on 05/19/2024 for worsening edema and UTI -- Primary urologist: Dr. Howard at [facility] Urology Patient with cirrhosis with ascites due to hemochromatosis requiring periodic paracentesis Indwelling Alex catheter since February 2024 when he was admitted with worsening edema and ascitesand catheter placed for retention -- Takes Flomax 0.4 mg twice daily normally -- Indwelling catheter has been managed by Dr. Howard at [facility] urine hematuria and several days ago which was being treated as an outpatient with ciprofloxacin. Has significant penoscrotal edema with skin breakdown being management and care Past Medical History Past Medical History: Diagnosis Date Anxiety [...] deficiency 07/27/2012 DX:Vitamin D deficiency Past Surgical History Past Surgical History: Procedure Laterality Date BACK SURGERY PROCEDURE: HISTORICAL BACK SURGERY; COMMENT: spinal diskectomy, osteophytectomy x4 COLONOSCOPY N/A PROCEDURE: HISTORICAL COLONOSCOPY ESOPHAGOGASTRODUODENOSCOPY PROCEDURE: ME ESOPHAGOGASTRODUODENOSCOPY TRANSORAL DIAGNOSTIC OTHER SURGICAL HISTORY Right PROCEDURE: ME STAB PHLEBT VARICOSE VEINS 1 XTR > 20 INCS Medications aspirin, 81 mg, oral, Daily atorvastatin, 20 mg, oral, Nightly cefTRIAXone, 2 g, intravenous, q24h enoxaparin, 120 mg, subcutaneous, q12h LIZETTE spironolactone, 100 mg, oral, Daily vancomycin, 1,500 mg, intravenous, q8h furosemide, 10 mg/hr, Last Rate: 10 mg/hr (05/21/24 1444) PRN medications: albuterol, naloxone, ondansetron (ZOFRAN-ODT) disintegrating tablet OR ondansetron, oxyCODONE, zolpidem All medications personally reviewed. Allergies Allergies Allergen Reactions Codeine Other Reaction(s): Unknown body region Nystatin Cream and Powder Semaglutide Unknown Family History Family History Problem Relation Name Age of Onset Other (Other: other) Father cancer from asbestos COPD Mother Drug abuse Brother x2 heroine overdose other brother had addiction to pain meds Liver disease Brother x2 Diabetes Sister 1 Heart attack Grandparent maternal Obesity Half-Sister Obesity Half-Brother Social History Social History Socioeconomic History Marital status: Single Spouse name: Not on file Number of children: Not on file Years of education: Not on file Highest education level: Not on file Occupational History Not on file Tobacco Use Smoking status: Former Current packs/day: 0.00 Types: Cigarettes Quit date: 04/21/2003 Years since quittin.0 Smokeless tobacco: Never Substance and Sexual Activity Alcohol use: No Drug use: Yes Types: Marijuana/Cannabis Sexual activity: Not on file Other Topics Concern Not on file Social History Narrative Not on file Objective Vitals Visit Vitals BP 137/71 (BP Location: Left arm, Patient Position: Lying) Pulse 96 Temp 36.7 ??C (98.1 ??F) (Temporal) Resp 20 Ht 1.676 m (66 ) Wt 156 kg (343 lb 11.2 oz) SpO2 95% BMI 55.47 kg/m?? Smoking Status Former BSA 2.52 m?? I&O Intake/Output Summary (Last 24 hours) at 05/21/2024 1645 Last data filed at 05/21/2024 0500 Gross per 24 hour Intake 600 ml Output 1670 ml Net -1070 ml Physical Exam General: No acute distress. Alert and oriented. HEENT: Normocephalic and atraumatic. Lungs: No labored breathing Abdominal: Soft. Nontender. Obese. Lower abdomen pelvis with significant skin thickening changes consistent with chronic edema : Significant penoscrotal edema. Meatus not able to be visualized. Skin breakdown is noted with local wound care. No crepitus but somewhat diffusely tender. 16 Kyrgyz Alex catheter with cloudy debris in urine. Extremities: Bilateral lower extremity edema with bilateral wraps to the knees. Laboratory Studies Lab Results Component Value Date WBC 9.0 05/21/2024 HGB 12.6 (L) 05/21/2024 HCT 37.2 (L) 05/21/2024 MCV 101.4 (H) 05/21/2024 PLT 109 (L) 05/21/2024 Lab Results Component Value Date CREATININE 0.63 (L) 05/21/2024 Urinalysis Results from last 7 days Lab Units 05/19/24 1628 WBC UR HPF /HPF 100.0* SPEC GRAV U 1.033* PH U pH 7.5 BACTERIA UR HPF /HPF Many* BILIRUBIN U Small* NITRITE U Positive* LEUKOCYTES U Moderate* UROBILINOGEN U mg/dL 1.0 KETONES U mg/dL Trace* PROTEIN U mg/dL 100* Urine Culture Lab Results Component Value Date URINECX 05/19/2024 >100,000 CFU/mL Mixed bacterial morphotypes present suggestive of possible contamination during collection. Suggest appropriate recollection if clinically indicated. Imaging and Other Studies CT Abdomen Pelvis w Contrast Narrative EXAMINATION: CT ABDOMEN/PELVIS WITH IV CONTRAST CLINICAL [...] 16.0 cm. The liver contour is irregular. The hepatic attenuation is heterogeneous. The liver was examined during the portal phase. There is no suspicious focal liver lesion. There are areas of probable filling defect within the right and left portal veins. This is nonocclusive. The main portal vein is somewhat dilated. There is recanalization of the umbilical vein. BILIARY TRACT: The gallbladder wall is thickened. No definite opaque gallstone. No biliary dilationdemonstrated SPLEEN: The spleen measures at least 17.9 cm. This is between 3 and 4 standard deviations above themean expected. No focal abnormality. PANCREAS: No suspicious abnormality. ADRENAL GLANDS: Within normal limits KIDNEYS: There is no dilation of the intrarenal collecting system on either side. The nephrograms are symmetric. No suspicious renal mass. GASTROINTESTINAL TRACT: The colon is not distended. There are colonic diverticula. No small bowel dilation. There are diverticula along the medial aspect of the 2nd portion of the duodenum. I suspect some varices adjacent to the distal esophagus. URINARY BLADDER: There is a balloon catheter present. The urinary bladder is decompressed. The bladder is not well evaluated. PELVIC VISCERA: No large abnormality. ABDOMINAL WALL: The abdomen is protuberant. There is extensive subcutaneous stranding and skin thickening. Not all of the trachea was is included. Fat and fluid protrude into the umbilicus. LYMPHOVASCULAR STRUCTURES AND FLUID: There is no abdominal aortic aneurysm. There is atherosclerotic calcification. As described there are upper abdominal venous collaterals. The main portal vein is dilated. As described I suspect nonocclusive portal vein thrombus. Large amount of intraperitoneal fluid. VISUALIZED LOWER CHEST: There is at least a moderate amount of left pleural fluid. There is marked coronary calcification. MUSCULOSKELETAL: No acute or suspicious osseous abnormality. There is degenerative change in the spine and hips. There is deformity of the left femoral head with flattening and proliferative osteophyte and perhaps some loose bodies. Impression Cirrhotic morphology with findings of portal hypertension including splenomegaly and ascites. Thereare upper abdominal venous collaterals. There are filling defects within the portal vein suggesting nonocclusive thrombus. Chronic deformity left femoral head with secondary degenerative changes. The study was performed during the late portal phase. This is not sensitive in detecting early enhancing liver lesions but there is no suspicious liver observation demonstrated There is left pleural fluid. Extensive coronary calcification -------- FINAL REPORT -------- Dictated By: Naren Longoria Dictated Date: 05/13/2024 07:22 ET Assigned Physician: Naren Longoria Reviewed and Electronically Signed By: Naren Longoria Signed Date: 05/13/2024 07:37 ET Workstation ID: [id number] Transcribed By: Self Edit Transcribed Date: 05/13/2024 07:22 ET Images reviewed. No concerning renal masses. Bladder is decompressed with catheter. Significant ascites is noted despite paracentesis being done 1 day prior for 7 L. * Flor Blair MD - 05/21/2024 2:24 PM ESTAssociated Order(s): IP CONSULT TO INFECTIOUS DISEASES Infectious Diseases Consult 05/21/24 No ref. provider found [facility] Hummel Reason for Consultation: hematuria, LLE cellulitis Source of history: chart review and the patient History Of Present Illness (includes Chief Complaint): Jonny Gordon is a 64 y.o. male who has a past medical history of Anxiety (04/13/2018), Benign colonicpolyp (12/12/2014), Chronic allergic conjunctivitis (04/13/2018), Cirrhosis of liver (CMS/HCC) (12/03/2017), Depression with anxiety (12/12/2014), Diabetes mellitus type 2, uncomplicated (CMS/HCC) (12/12/2014), Diverticulosis (05/29/2010), Erosive gastritis (10/13/2017), Esophageal varices (CMS/HCC) (12/03/2017), Hyperlipidemia (12/12/2014), Hypertension (12/14/2014), Insomnia (04/13/2018), Internal hemorrhoids (07/27/2010), Iron overload syndrome (12/03/2017), Morbid obesity (CMS/HCC) (09/10/2017), Obstructive sleep apnea (05/21/2016), Thoracic or lumbosacral neuritis or radiculitis (09/13/2011), and Vitamin D deficiency (07/27/2012).. The patient was admitted to the hospital on 05/19/2024 for worsening LE swelling. The patient states that he has been dealing with hematuria and foul-smelling urine for the past few days prior to arrival and was told that he had a UTI and was being treated with ciprofloxacin. He developed worsening bilateral extremity edema is resolving on the hospital. He states he doeshave chronic lower extremity edema. He does not go to lymphedema clinic. He denied any fevers or chills, no nausea vomiting or diarrhea, no suprapubic pain, no CVA tenderness. Of note, he has required a Alex catheter since January, he states that he goes to urologist in [place], he has not been told how long he is going to need the Alex, has not been told if there is a plan for suprapubic tube.He was started on vancomycin and Zosyn. Urine culture showed mixed larissa, his Alex was changed here. He was seen by wound care, he has chronic venous stasis on bilateral extremities, the left lower extremity is extremely erythematous and red, multiple areas of skin breakdown of both legs.. The ID service has been consulted for management during this patient's hospital stay. Past Medical History: Past Medical History: Diagnosis Date Anxiety 04/13/2018 [...] Vitamin D deficiency 07/27/2012 DX:Vitamin D deficiency Surgical History: Past Surgical History: Procedure Laterality Date BACK SURGERY PROCEDURE: HISTORICAL BACK SURGERY; COMMENT: spinal diskectomy, osteophytectomy x4 COLONOSCOPY N/A PROCEDURE: HISTORICAL COLONOSCOPY ESOPHAGOGASTRODUODENOSCOPY PROCEDURE: ME ESOPHAGOGASTRODUODENOSCOPY TRANSORAL DIAGNOSTIC OTHER SURGICAL HISTORY Right PROCEDURE: ME STAB PHLEBT VARICOSE VEINS 1 XTR > 20 INCS Family History: Family History Problem Relation Name Age of Onset Other (Other: other) Father cancer from asbestos COPD Mother Drug abuse Brother x2 heroine overdose other brother had addiction to pain meds Liver disease Brother x2 Diabetes Sister 1 Heart attack Grandparent maternal Obesity Half-Sister Obesity Half-Brother Social History: Social History Tobacco Use Smoking status: Former Current packs/day: 0.00 Types: Cigarettes Quit date: 04/21/2003 Years since quittin.0 Smokeless tobacco: Never Substance Use Topics Alcohol use: No Drug use: Yes Types: Marijuana/Cannabis Allergies: Codeine, Nystatin, and Semaglutide Home Medications: Prior to Admission medications Medication Sig Start Date End Date Taking? Authorizing Provider albuterol 2.5 mg/0.5 mL solution for nebulization nebulizer solution Take 0.5 mL (2.5 mg total) by nebulization every 6 (six) hours if needed for shortness of breath. 02/18/24 Historical Provider, aspirin 81 mg EC tablet Take 1 tablet (81 mg total) by mouth 1 (one) time each day. Historical Provider, cholecalciferol (VITAMIN D-3) 50 mcg (2,000 unit) tablet 1 tablet (2,000 Units total). 11/19/11 Historical Provider, furosemide (LASIX) 40 mg tablet Take 1 tablet (40 mg total) by mouth 1 (one) time each day. 03/01/24 03/01/25 Solitario Escobar MD naloxone (NARCAN) 4 mg/0.1 mL nasal spray Administer 1 each (4 mg total) into affected nostril(s). 02/03/23 Historical Provider, oxyCODONE (OXY-IR) 5 mg immediate release capsule Take 2 capsules (10 mg total) by mouth every 4 (four) hours if needed for severe pain. Max Daily Amount: 60 mg 03/02/24 Solitario Escobar MD rosuvastatin (CRESTOR) 5 mg tablet Take 1 tablet (5 mg total) by mouth 1 (one) time each day. 03/25/24 Historical Provider, spironolactone (ALDACTONE) 100 mg tablet Take 1 tablet (100 mg total) by mouth 1 (one) time each day. 04/08/24 07/07/24 Han Sloan DO zolpidem (AMBIEN) 10 mg tablet Take 1 tablet (10 mg total) by mouth at bedtime as needed. for insomnia Historical Provider, spironolactone (ALDACTONE) 25 mg tablet Take 2 tablets (50 mg total) by mouth 1 (one) time each day. 03/01/24 05/19/24 Solitario Escobar MD Current Medications: Current Facility-Administered Medications: albuterol 2.5 mg /3 mL (0.083 %) nebulizer solution 2.5 mg, 2.5 mg, nebulization, q6h PRN, GIORGI Giordano aspirin EC tablet 81 mg, 81 mg, oral, Daily, GIORGI Giordano, 81 mg at 05/21/24 09 atorvastatin (LIPITOR) tablet 20 mg, 20 mg, oral, Nightly, GIORGI Giordano, 20 mg at 05/20/242008 cefTRIAXone (ROCEPHIN) 2 g in sterile water 20 mL IV syringe, 2 g, intravenous, q24h, Jose Cruz Cordon MD enoxaparin (LOVENOX) injection 120 mg, 120 mg, subcutaneous, q12h LIZETTE, Jose Cruz Cordon MD furosemide (LASIX) 100 mg in 0.9 % sodium chloride 50 mL infusion, 10 mg/hr, intravenous, Continuous, Jose Cruz Cordon MD naloxone (NARCAN) injection 0.04 mg, 0.04 mg, intravenous, PRN, GIORGI Giordano ondansetron ODT (ZOFRAN-ODT) disintegrating tablet 4 mg, 4 mg, oral, q8h PRN OR ondansetron (PF) (ZOFRAN) injection 4 mg, 4 mg, intravenous, q8h PRN, Rosaura Iglesias MD oxyCODONE (ROXICODONE) immediate release tablet 10 mg, 10 mg, oral, q4h PRN, GIORGI Giordano, 10 mg at 05/21/24 0946 spironolactone (ALDACTONE) tablet 100 mg, 100 mg, oral, Daily, GIORGI Giordano, 100 mg at 05/21/24 0947 vancomycin (VANCOCIN) IVPB 1,500 mg in 0.9 % sodium chloride 500 mL - CNR, 1,500 mg, intravenous, q8h, GIORGI Giordano, Last Rate: 333.3 mL/hr at 05/21/24 1242, 1,500 mg at 05/21/24 1242 zolpidem (AMBIEN) tablet 10 mg, 10 mg, oral, Nightly PRN, GIORGI Giordano, 10 mg at 05/19/24 2327 PRN medications: albuterol, naloxone, ondansetron (ZOFRAN-ODT) disintegrating tablet OR ondansetron, oxyCODONE, zolpidem ROS: Review of Systems Constitutional: Negative. HENT: Negative. Respiratory: Negative. Cardiovascular: Positive for leg swelling. Gastrointestinal: Negative. Genitourinary: Negative. Musculoskeletal: Negative. Skin: Positive for color change, rash and wound. Neurological: Negative. Vital signs for last 24 hours: Temp: 36.2 ??C (97.2 ??F) (05/21 754) Heart Rate: 101 (05/21 754) Resp: 20 (05/21 754) BP: 139/80 (05/21 754) Intake/Output this shift: No intake/output data recorded. Physicial Exam Physical Exam Vitals reviewed. Constitutional: Appearance: Normal appearance. HENT: Head: Normocephalic and atraumatic. Eyes: General: No scleral icterus. Cardiovascular: Rate and Rhythm: Normal rate and regular rhythm. Heart sounds: No murmur heard. No friction rub. No gallop. Pulmonary: Effort: Pulmonary effort is normal. No respiratory distress. Breath sounds: Normal breath sounds. No stridor. No wheezing, rhonchi or rales. Chest: Chest wall: No tenderness. Abdominal: General: Abdomen is flat. Bowel sounds are normal. There is no distension. Palpations: Abdomen is soft. There is no mass. Tenderness: There is no abdominal tenderness. There is no right CVA tenderness, left CVA tenderness, guarding or rebound. Hernia: No hernia is present. Musculoskeletal: Right lower leg: Edema present. Left lower leg: Edema present. Comments: B/l le bandaged and wrapped, reviewed images taken by wound care Neurological: General: No focal deficit present. Mental Status: He is alert and oriented to person, place, and time. Results: Lab Admission on 05/19/2024 Component Date Value Ventricular Rate ECG 05/19/2024 109 Atrial Rate 05/19/2024 267 QRS Duration 05/19/2024 132 Q-T Interval 05/19/2024 360 QTc 05/19/2024 484 R [place] 05/19/2024 - T [place] 05/19/2024 20 ECG Interpretation 05/19/2024 Value:Sinus tachycardia Left axis deviation Right bundle branch block Abnormal ECG When compared with ECG of 19-MAY-2024 16:22, (unconfirmed) No significant change was found Confirmed by Fabian JOSEPH YUFENG ([id number]) on 05/20/2024 6:05:19 PM Ventricular Rate ECG 05/19/2024 108 Atrial Rate 05/19/2024 113 QRS Duration 05/19/2024 132 Q-T Interval 05/19/2024 368 QTc 05/19/2024 493 R [place] 05/19/2024 - T [place] 05/19/2024 34 ECG Interpretation 05/19/2024 Value:Sinus rhythm with premature atrial complexes Right bundle branch block Abnormal ECG When compared with ECG of 23-SEP-2008 11:46, Right bundle branch block has replaced RSR' pattern inV1 Confirmed by Fabian JOSEPH YUFENG ([id number]) on 05/20/2024 6:04:23 PM High Sensitivity Troponi* 05/19/2024 7 High Sensitivity Troponi* 05/19/2024 7 Sodium 05/19/2024 134 Potassium 05/19/2024 3.8 Chloride 05/19/2024 99 CO2 05/19/2024 26 Anion Gap 05/19/2024 9 Glucose 05/19/2024 170 (H) BUN 05/19/2024 19 Creatinine 05/19/2024 0.67 (L) eGFR 05/19/2024 103 BUN/Creatinine Ratio 05/19/2024 28.4 Calcium 05/19/2024 8.5 AST (SGOT) 05/19/2024 25 ALT (SGPT) 05/19/2024 19 Alkaline Phosphatase 05/19/2024 153 (H) Total Protein 05/19/2024 6.0 Albumin 05/19/2024 2.4 (L) Total Bilirubin 05/19/2024 3.1 (H) Lipase 05/19/2024 76 (H) Magnesium 05/19/2024 2.1 BNP 05/19/2024 40 WBC 05/19/2024 12.3 (H) RBC 05/19/2024 3.90 (L) Hemoglobin 05/19/2024 13.3 (L) Hematocrit 05/19/2024 39.2 (L) MCV 05/19/2024 100.5 (H) MCH 05/19/2024 34.1 (H) MCHC 05/19/2024 33.9 RDW 05/19/2024 15.9 (H) Platelets 05/19/2024 116 (L) MPV 05/19/2024 10.9 NRBC 05/19/2024 0.0 NRBC Absolute 05/19/2024 0.00 Neutrophils Relative 05/19/2024 83.0 Lymphocytes Relative 05/19/2024 5.6 Monocytes Relative 05/19/2024 8.4 Eosinophils Relative 05/19/2024 0.8 Basophils Relative 05/19/2024 0.5 Immature Granulocytes Re* 05/19/2024 1.7 Neutrophils Absolute 05/19/2024 10.23 (H) Lymphocytes Absolute 05/19/2024 0.69 (L) Monocytes Absolute 05/19/2024 1.03 (H) Eosinophils Absolute 05/19/2024 0.10 Basophils Absolute 05/19/2024 0.06 Immature Granulocytes Ab* 05/19/2024 0.21 (H) Specific [place] Urine 05/19/2024 1.033 (H) pH, Urine 05/19/2024 7.5 Leukocytes, Urine 05/19/2024 Moderate (A) Nitrite, Urine 05/19/2024 Positive (A) Protein, Urine 05/19/2024 100 (A) Glucose, Urine 05/19/2024 Negative Ketones, Urine 05/19/2024 Trace (A) Urobilinogen, Urine 05/19/2024 1.0 Bilirubin, Urine 05/19/2024 Small (A) Blood, Urine 05/19/2024 Large (A) RBC, Urine 05/19/2024 400.0 (H) WBC, Urine 05/19/2024 100.0 (H) Squamous Epithelial, Uri* 05/19/2024 0 Crystals, Urine 05/19/2024 HEAVY TRIPLE PHOS, HEAVY LIZ PHOSPHATE,MODERATE CALCIUM OXALATE Bacteria, Urine 05/19/2024 Many (A) Hyaline Casts, Urine 05/19/2024 0.0 Extra Tube 05/19/2024 Hold for add-ons. Lactate 05/19/2024 4.4 (HH) Protime 05/19/2024 16.9 (H) INR 05/19/2024 1.4 Culture, Urine 05/19/2024 >100,000 CFU/mL Mixed bacterial morphotypes present suggestive of possible contamination during collection. Suggest appropriate recollection if clinically indicated. Lactate 05/19/2024 3.4 (HH) Lactate 05/20/2024 2.2 (H) Culture, Blood 05/19/2024 No growth at 24 hours Culture, Blood 05/19/2024 No growth at 24 hours Lactate 05/19/2024 2.3 (H) Sodium 05/20/2024 134 Potassium 05/20/2024 3.3 (L) Chloride 05/20/2024 102 CO2 05/20/2024 27 Anion Gap 05/20/2024 5 Glucose 05/20/2024 153 (H) BUN 05/20/2024 18 Creatinine 05/20/2024 0.56 (L) eGFR 05/20/2024 109 BUN/Creatinine Ratio 05/20/2024 32.1 Calcium 05/20/2024 7.9 (L) WBC 05/20/2024 8.8 RBC 05/20/2024 3.30 (L) Hemoglobin 05/20/2024 11.2 (L) Hematocrit 05/20/2024 32.8 (L) MCV 05/20/2024 100.6 (H) MCH 05/20/2024 34.4 (H) MCHC 05/20/2024 34.1 RDW 05/20/2024 15.7 (H) Platelets 05/20/2024 90 (L) MPV 05/20/2024 10.8 NRBC 05/20/2024 0.0 NRBC Absolute 05/20/2024 0.00 Glucose POCT 05/20/2024 162 (H) C-Reactive Protein 05/20/2024 15.70 (H) Sed Rate 05/20/2024 35 (H) Vancomycin Trough 05/21/2024 16.4 Magnesium 05/21/2024 1.8 (L) Sodium 05/21/2024 135 Potassium 05/21/2024 3.4 (L) Chloride 05/21/2024 102 CO2 05/21/2024 29 Anion Gap 05/21/2024 4 Glucose 05/21/2024 161 (H) BUN 05/21/2024 15 Creatinine 05/21/2024 0.63 (L) eGFR 05/21/2024 105 BUN/Creatinine Ratio 05/21/2024 23.8 Calcium 05/21/2024 7.6 (L) AST (SGOT) 05/21/2024 31 ALT (SGPT) 05/21/2024 21 Alkaline Phosphatase 05/21/2024 139 (H) Total Protein 05/21/2024 5.4 (L) Albumin 05/21/2024 2.3 (L) Total Bilirubin 05/21/2024 3.0 (H) Protime 05/21/2024 16.9 (H) INR 05/21/2024 1.4 Phosphorus 05/21/2024 2.7 Hemoglobin A1C 05/21/2024 4.9 Mean Bld Glu Estim. 05/21/2024 94 TSH 05/21/2024 8.16 (H) Lactate 05/21/2024 1.8 WBC 05/21/2024 9.0 RBC 05/21/2024 3.70 (L) Hemoglobin 05/21/2024 12.6 (L) Hematocrit 05/21/2024 37.2 (L) MCV 05/21/2024 101.4 (H) MCH 05/21/2024 34.3 (H) MCHC 05/21/2024 33.9 RDW 05/21/2024 15.9 (H) Platelets 05/21/2024 109 (L) MPV 05/21/2024 10.7 NRBC 05/21/2024 0.0 NRBC Absolute 05/21/2024 0.00 Neutrophils Relative 05/21/2024 73.9 Lymphocytes Relative 05/21/2024 9.1 Monocytes Relative 05/21/2024 10.9 Eosinophils Relative 05/21/2024 2.5 Basophils Relative 05/21/2024 0.7 Immature Granulocytes Re* 05/21/2024 2.9 Neutrophils Absolute 05/21/2024 6.67 Lymphocytes Absolute 05/21/2024 0.82 (L) Monocytes Absolute 05/21/2024 0.98 Eosinophils Absolute 05/21/2024 0.23 Basophils Absolute 05/21/2024 0.06 Immature Granulocytes Ab* 05/21/2024 0.26 (H) Free T4 05/21/2024 1.02 T3, Free 05/21/2024 249 Lab Results Component Value Date BLOODCX No growth at 24 hours 05/19/2024 BLOODCX No growth at 24 hours 05/19/2024 URINECX 05/19/2024 >100,000 CFU/mL Mixed bacterial morphotypes present suggestive of possible contamination during collection. Suggest appropriate recollection if clinically indicated. Recent Results (from the past 168 hour(s)) Culture urine Collection Time: 05/19/24 4:28 PM Specimen: Alex Catheter; Urine Result Value Ref Range Culture, Urine >100,000 CFU/mL Mixed bacterial morphotypes present suggestive of possible contamination during collection. Suggest appropriate recollection if clinically indicated. Blood Culture, Peripheral Draw #1 Collection Time: 05/19/24 6:13 PM Specimen: Blood, Venous Result Value Ref Range Culture, Blood No growth at 24 hours Blood Culture, Peripheral Draw #2 Collection Time: 05/19/24 6:13 PM Specimen: Blood, Venous Result Value Ref Range Culture, Blood No growth at 24 hours Radiology: Vascular US duplex lower extremity venous bilateral Narrative: PROCEDURE: VAS US DUPLEX LOWER EXT VENOUS BILAT INDICATION: Edema TECHNIQUE: 2-D and color Doppler imaging of the lower extremity venous vasculature with compressionand augmentation maneuvers. COMPARISON: No priors available. FINDINGS: RIGHT: Nonocclusive thrombus in the right common femoral vein. Remainder of the right lower extremity veins are patent where visualized. LEFT: There is normal flow, compression, and augmentation from the common femoral through the popliteus. Visualized calf veins are patent. Impression: NONOCCLUSIVE THROMBUS IN THE RIGHT COMMON FEMORAL VEIN. NO VENOUS THROMBOSIS IN THE LEFT LOWER EXTREMITY VEINS. -------- FINAL REPORT -------- Dictated By: JENNIFER MESA Dictated Date: 05/21/2024 09:22 ET Assigned Physician: JENNIFER MESA Reviewed and Electronically Signed By: JENNIFER MESA Signed Date: 05/21/2024 09:23 ET Workstation ID: [id number] Transcribed By: Self Edit Transcribed Date: 05/21/2024 09:22 ET Assessment/Plan Jonny Gordon is a 64 y.o. male who has a past medical history of Anxiety (04/13/2018), Benign colonicpolyp (12/12/2014), Chronic allergic conjunctivitis (04/13/2018), Cirrhosis of liver (CMS/HCC) (12/03/2017), Depression with anxiety (12/12/2014), Diabetes mellitus type 2, uncomplicated (CMS/HCC) (12/12/2014), Diverticulosis (05/29/2010), Erosive gastritis (10/13/2017), Esophageal varices (CMS/HCC) (12/03/2017), Hyperlipidemia (12/12/2014), Hypertension (12/14/2014), Insomnia (04/13/2018), Internal hemorrhoids (07/27/2010), Iron overload syndrome (12/03/2017), Morbid obesity (CMS/HCC) (09/10/2017), Obstructive sleep apnea (05/21/2016), Thoracic or lumbosacral neuritis or radiculitis (09/13/2011), and Vitamin D deficiency (07/27/2012).. The patient was admitted to the hospital on 05/19/2024 for worsening LE swelling. The patient states that he has been dealing with hematuria and foul-smelling urine for the past few days prior to arrival and was told that he had a UTI and was being treated with ciprofloxacin. He developed worsening bilateral extremity edema is resolving on the hospital. He states he doeshave chronic lower extremity edema. He does not go to lymphedema clinic. He denied any fevers or chills, no nausea vomiting or diarrhea, no suprapubic pain, no CVA tenderness. Of note, he has required a Alex catheter since January, he states that he goes to urologist in [place], he has not been told how long he is going to need the Alex, has not been told if there is a plan for suprapubic tube.He was started on vancomycin and Zosyn. Urine culture showed mixed larissa, his Alex was changed here. He was seen by wound care, he has chronic venous stasis on bilateral extremities, the left lower extremity is extremely erythematous and red, multiple areas of skin breakdown of both legs.. The ID service has been consulted for management during this patient's hospital stay. LLE cellulitis Hematuria, suspected UTI Vanc dosing Can switch Zosyn to CTX, continue Vanc goal 10-15, phamacy to assist in dosage, level today 16.4, [facility] Wound care seeing patient, should follow OP with lymphedema clinic Can switch to PO Augmentin and Doxy once ready to go Alex was switched, C/S showed contamination with multiple organisms, likely due to the alex beingcolonized, this has been changed, no further need to treat this however should discuss SPT options with Urology as pt has had multiple issues with foleys leaking and needing replacement if needs alex longterm Recommendations: Continue Vanc goal 10-15, switch Zosyn to CTX Once ready to go can be switched to Augmentin 875 mg BID plus Doxycycline 100 mg BID to end on 06/02 Recommend either oP follow up with Urology or inpt consult - per their preference to discuss SPT placement Should be referred to Lymphedema clinic as OP Appreciate wound care input ID to sign off I personally spent 75 minutes in this encounter. This included performing a detailed chart review, reviewing and independently interpreting labs and other tests ordered by other providers, performinga history and physical, counseling the patient/family, discussing the case with primary team and wound care, performing complex medical decision making, coordinating his/her/their plan of care Communication: Thank you for the consult. Please do not hesitate to contact me via EpicChat with issues or questions Please note that this note has been completed with the help of voice recognition dictation software, as such there may be certain words that may be substituted or written in error error based on the voice-recognition tool, please contact me to clarify if any confusion Flor Blair MD documented in this encounter Plan of Treatment Upcoming Encounters Date Type Department Care Team (Latest Contact Info) Description 06/24/2024 11:20 AM EST Office Visit Gastroenterology - [place] [address] [place] [phone] Luther HanDO [address] [place] [address] 07/06/2024 1:00 PM EDT Appointment [facility] Interventional Radiology [address] [place] [phone] 08/12/2024 10:30 AM EDT Ancillary Procedure [facility] [address] [place] [phone] documented as of this encounter Procedures Procedure Name Priority Date/Time Associated Diagnosis Comments COMPLETE BLOOD COUNT Routine 05/25/2024 5:32 AM EST PHOSPHORUS Routine 05/25/2024 5:32 AM EST MAGNESIUM Routine 05/25/2024 5:32 AM EST BASIC METABOLIC PANEL Routine 05/25/2024 5:32 AM EST COMPLETE BLOOD COUNT Routine 05/24/2024 6:07 AM EST PHOSPHORUS Routine 05/24/2024 6:07 AM EST MAGNESIUM Routine 05/24/2024 6:07 AM EST BASIC METABOLIC PANEL Routine 05/24/2024 6:07 AM EST CPAP NIV Routine 05/23/2024 10:00 PM EST VANCOMYCIN, TROUGH Timed 05/23/2024 12 :10 PM EST BASIC METABOLIC PANEL Routine 05/23/2024 8:24 AM EST EXTRA TUBES Routine 05/23/2024 3:07 AM EST LAVENDER - EDTA Routine 05/23/2024 3:07 AM EST VANCOMYCIN, TROUGH Timed 05/23/2024 3: 05 AM EST PROTHROMBIN TIME WITH INR Routine 05/22/2024 5:42 AM EST PHOSPHORUS Routine 05/22/2024 5:42 AM EST MAGNESIUM Routine 05/22/2024 5:42 AM EST BASIC METABOLIC PANEL Routine 05/22/2024 5:42 AM EST EXTRA TUBES Routine 05/22/2024 5:37 AM EST LAVENDER - EDTA Routine 05/22/2024 5:37 AM EST CPAP NIV Routine 05/21/2024 10:00 PM EST VAS US DUPLEX LOWER EXT VENOUS BILAT STAT 05/21/2024 9:14 AM EST Bilateral leg edema THYROID STIMULATING HORMONE WITH REFLEX TO FREE T4 AND FREE T3 Routine 05/21/2024 3:17 AM EST FREE THYROXINE WITH REFLEX TO FREE TRIIODOTHYRONINE Routine 05/21/2024 3:17 AM EST CBC WITH AUTO DIFFERENTIAL Routine 05/21/2024 3:17 AM EST PROTHROMBIN TIME WITH INR Routine 05/21/2024 3:17 AM EST CBC AND DIFFERENTIAL Routine 05/21/2024 3:17 AM EST TRIIODOTHYRONINE FREE Routine 05/21/2024 3:17 AM EST PHOSPHORUS Routine 05/21/2024 3:17 AM EST MAGNESIUM Routine 05/21/2024 3:17 AM EST LACTATE Routine 05/21/2024 3:17 AM EST HEMOGLOBIN A1C Routine 05/21/2024 3:17 AM EST VANCOMYCIN, TROUGH Timed 05/21/2024 3: 17 AM EST COMPREHENSIVE METABOLIC PANEL Routine 05/21/2024 3:17 AM EST CPAP NIV Routine 05/20/2024 10:00 PM EST POCT GLUCOSE BLOOD Routine 05/20/2024 8: 37 AM EST SEDIMENTATION RATE Add-On 05/20/2024 6: 09 AM EST COMPLETE BLOOD COUNT Routine 05/20/2024 6:09 AM EST C-REACTIVE PROTEIN Add-On 05/20/2024 6: 09 AM EST BASIC METABOLIC PANEL Routine 05/20/2024 6:09 AM EST LACTATE Timed 05/20/2024 1:02 AM EST LACTATE Timed 05/19/2024 10:05 PM EST CPAP NIV Routine 05/19/2024 10:01 PM EST CPAP NIV Routine 05/19/2024 8:02 PM EST XR CHEST 2 VIEWS STAT 05/19/2024 6:51 PM EST CULTURE BLOOD STAT 05/19/2024 6:13 PM EST CULTURE BLOOD STAT 05/19/2024 6:13 PM EST LACTATE Timed 05/19/2024 6:13 PM EST ECG 12-LEAD STAT 05/19/2024 5:11 PM EST TROPONIN I HIGH SENSITIVITY STAT 05/19/2024 5:03 PM EST URINALYSIS WITH REFLEX MICROSCOPIC AND CULTURE STAT 05/19/2024 4:28 PM EST PUGH URINE CULTURE TUBE STAT 05/19/19 4:28 PM EST URINALYSIS WITH REFLEX MICROSCOPIC AND CULTURE STAT 05/19/2024 4:28 PM EST CULTURE URINE STAT 05/19/2024 4:28 PM EST ECG 12-LEAD STAT 05/19/2024 4:22 PM EST TROPONIN I HIGH SENSITIVITY STAT 05/19/2024 4:10 PM EST CBC WITH AUTO DIFFERENTIAL STAT 05/19/2024 4:10 PM EST PROTHROMBIN TIME WITH INR STAT 05/19/2024 4:10 PM EST CBC AND DIFFERENTIAL STAT 05/19/2024 4:10 PM EST B-TYPE NATRIURETIC PEPTIDE STAT 05/19/2024 4:10 PM EST MAGNESIUM STAT 05/19/2024 4:10 PM EST LIPASE STAT 05/19/2024 4:10 PM EST LACTATE STAT 05/19/2024 4:10 PM EST COMPREHENSIVE METABOLIC PANEL STAT 05/19/2024 4:10 PM EST ECG ANNOTATED 05/19/2024 ECG ANNOTATED 05/19/2024 documented in this encounter Results * Magnesium (05/25/2024 5:32 AM EST) Magnesium 2.1 1.9 - 2.6 mg/dL LAB CHEMISTRY METHOD 05/25/2024 7:15 AM EST [facility] ([facility]) [facility] Blood Venous blood specimen / Unknown Venipuncture / Unknown 05/25/2024 5:32 AM EST 05/25/2024 6:27 AM EST Liang Reinoso MD LAB BLOOD ORDERABLE S Final Result [facility] [address] [place] [address], * (ABNORMAL) Basic metabolic panel (05/25/2024 5:32 AM EST) Sodium 134 133 - 145 mmol/L LAB CHEMISTRY METHOD 05/25/2024 7:15 AM [facility] Potassium 3.6 3.5 - 5.5 mmol/L LAB CHEMISTRY METHOD 05/25/2024 7:15 AM [facility] Chloride 94(L) 96 - 110 mmol/L LAB CHEMISTRY METHOD 05/25/2024 7:15 AM [facility] CO2 33(H) 21 - 32 mmol/L LAB CHEMISTRY METHOD 05/25/2024 7:15 AM [facility] Anion Gap 7 3 - 11 LAB CHEMISTRY METHOD 05/25/2024 7:15 AM [facility] Glucose 123(H) 70 - 100 mg/dL LAB CHEMISTRY METHOD 05/25/2024 7:15 AM [facility] BUN 13 5 - 25 mg/dL LAB CHEMISTRY METHOD 05/25/2024 7:15 AM [facility] Creatinine 0.57(L) 0.70 - 1.30 mg/dL LAB CHEMISTRY METHOD 05/25/2024 7:15 AM [facility] eGFR 108 >=60 mL/min/1. 73m2 LAB CHEMISTRY METHOD 05/25/2024 7:15 AM [facility] Comment:Calculation based on the??Chronic Kidney Disease Epidemiology Collaboration (CKD-EPI) equation refit??without adjustment for race. BUN/Creatinine Ratio 22.8 LAB CHEMISTRY METHOD 05/25/2024 7:15 AM [facility] Calcium 8.1(L) 8.5 - 10.5 mg/dL LAB CHEMISTRY METHOD 05/25/2024 7:15 AM [facility] Blood Venous blood specimen / Unknown Venipuncture / Unknown 05/25/2024 5:32 AM EST 05/25/2024 6:27 AM EST Liang Reinoso MD LAB BLOOD ORDERABLE S Final Result [facility] [address] [place] [address], [place] [phone] * (ABNORMAL) Complete blood count (05/25/2024 5:32 AM EST) WBC 6.8 4.8 - 10.8 K/mcL LAB HEMETOLOGY METHOD 05/25/2024 6:50 AM [facility] RBC 3.40(L) 4.50 - 5.50 M/mcL LAB HEMETOLOGY METHOD 05/25/2024 6:50 AM [facility] Hemoglobin 11.6(L) 13.5 - 17.5 g/dL LAB HEMETOLOGY METHOD 05/25/2024 6:50 AM [facility] Hematocrit 34.7(L) 42.0 - 54.0 % LAB HEMETOLOGY METHOD 05/25/2024 6:50 AM [facility] MCV 100.9(H) 79.0 - 98.0 FL LAB HEMETOLOGY METHOD 05/25/2024 6:50 AM [facility] MCH 33.7(H) 27.0 - 32.0 pcg LAB HEMETOLOGY METHOD 05/25/2024 6:50 AM [facility] MCHC 33.4 32.0 - 37.0 g/dL LAB HEMETOLOGY METHOD 05/25/2024 6:50 AM EST [facility] RDW 15.9(H) 11.0 - 15.0 % LAB HEMETOLOGY METHOD 05/25/2024 6:50 AM EST [facility] Platelets 129(L) 130 - 400 K/mcL LAB HEMETOLOGY METHOD 05/25/2024 6:50 AM EST [facility] MPV 10.4 7.0 - 11.0 FL LAB HEMETOLOGY METHOD 05/25/2024 6:50 AM EST [facility] NRBC 0.0 <1.0 % LAB HEMETOLOGY METHOD 05/25/2024 6:50 AM EST [facility] NRBC Absolute 0.00 <0.10 K/mcL LAB HEMETOLOGY METHOD 05/25/2024 6:50 AM EST [facility] Blood Venous blood specimen / Unknown Venipuncture / Unknown 05/25/2024 5:32 AM EST 05/25/2024 6:27 AM EST us Liang Reinoso MD LAB BLOOD ORDERABLE S Final Result [facility] [address] [place] [address], * Phosphorus (05/25/2024 5:32 AM EST) Phosphorus 2.8 2.5 - 4.5 mg/dL LAB CHEMISTRY METHOD 05/25/2024 7:15 AM EST [facility] Blood Venous blood specimen / Unknown Venipuncture / Unknown 05/25/2024 5:32 AM EST 05/25/2024 6:27 AM EST us Liang Reinoso MD LAB BLOOD ORDERABLE S Final Result [facility] [address] [place] [address], [place] [phone] * Magnesium (05/24/2024 6:07 AM EST) [facility] Magnesium 2.1 1.9 - 2.6 mg/dL LAB CHEMISTRY METHOD 05/24/2024 7:57 AM [facility] Blood Venous blood specimen / Unknown Venipuncture / Unknown 05/24/2024 6:07 AM EST 05/24/2024 7:03 AM EST Liang Reinoso MD LAB BLOOD ORDERABLE S Final Result [facility] [address] [place] [address], [place] [phone] * (ABNORMAL) Basic metabolic panel (05/24/2024 6:07 AM EST) [facility] Sodium 133 133 - 145 mmol/L LAB CHEMISTRY METHOD 05/24/2024 7:57 AM [facility] Potassium 3.5 3.5 - 5.5 mmol/L LAB CHEMISTRY METHOD 05/24/2024 7:57 AM [facility] Chloride 94(L) 96 - 110 mmol/L LAB CHEMISTRY METHOD 05/24/2024 7:57 AM [facility] CO2 32 21 - 32 mmol/L LAB CHEMISTRY METHOD 05/24/2024 7:57 AM [facility] Anion Gap 7 3 - 11 LAB CHEMISTRY METHOD 05/24/2024 7:57 AM [facility] Glucose 127(H) 70 - 100 mg/dL LAB CHEMISTRY METHOD 05/24/2024 7:57 AM [facility] BUN 12 5 - 25 mg/dL LAB CHEMISTRY METHOD 05/24/2024 7:57 AM [facility] Creatinine 0.62(L) 0.70 - 1.30 mg/dL LAB CHEMISTRY METHOD 05/24/2024 7:57 AM [facility] eGFR 105 >=60 mL/min/1. 73m2 LAB CHEMISTRY METHOD 05/24/2024 7:57 AM [facility] Comment:Calculation based on the??Chronic Kidney Disease Epidemiology Collaboration (CKD-EPI) equation refit??without adjustment for race. BUN/Creatinine Ratio 19.4 LAB CHEMISTRY METHOD 05/24/2024 7:57 AM [facility] Calcium 8.2(L) 8.5 - 10.5 mg/dL LAB CHEMISTRY METHOD 05/24/2024 7:57 AM [facility] Blood Venous blood specimen / Unknown Venipuncture / Unknown 05/24/2024 6:07 AM EST 05/24/2024 7:03 AM EST Liang Reinoso MD LAB BLOOD ORDERABLE S Final Result [facility] [address] [place] [address], [place] [phone] * (ABNORMAL) Complete blood count (05/24/2024 6:07 AM EST) WBC 10.2 4.8 - 10.8 K/mcL LAB HEMETOLOGY METHOD 05/24/2024 8:00 AM [facility] RBC 3.60(L) 4.50 - 5.50 M/mcL LAB HEMETOLOGY METHOD 05/24/2024 8:00 AM [facility] Hemoglobin 12.3(L) 13.5 - 17.5 g/dL LAB HEMETOLOGY METHOD 05/24/2024 8:00 AM [facility] Hematocrit 36.9(L) 42.0 - 54.0 % LAB HEMETOLOGY METHOD 05/24/2024 8:00 AM [facility] MCV 102.2(H) 79.0 - 98.0 FL LAB HEMETOLOGY METHOD 05/24/2024 8:00 AM EST [facility] MCH 34.1(H) 27.0 - 32.0 pcg LAB HEMETOLOGY METHOD 05/24/2024 8:00 AM [facility] MCHC 33.3 32.0 - 37.0 g/dL LAB HEMETOLOGY METHOD 05/24/2024 8:00 AM EST [facility] RDW 15.7(H) 11.0 - 15.0 % LAB HEMETOLOGY METHOD 05/24/2024 8:00 AM [facility] Platelets 146 130 - 400 K/mcL LAB HEMETOLOGY METHOD 05/24/2024 8:00 AM [facility] MPV 10.8 7.0 - 11.0 FL LAB HEMETOLOGY METHOD 05/24/2024 8:00 AM [facility] NRBC 0.0 <1.0 % LAB HEMETOLOGY METHOD 05/24/2024 8:00 AM [facility] NRBC Absolute 0.00 <0.10 K/mcL LAB HEMETOLOGY METHOD 05/24/2024 8:00 AM [facility] Blood Venous blood specimen / Unknown Venipuncture / Unknown 05/24/2024 6:07 AM EST 05/24/2024 7:03 AM EST us Liang Reinoso MD LAB BLOOD ORDERABLE S Final Result [facility] [address] [place] [address], * Phosphorus (05/24/2024 6:07 AM EST) Phosphorus 2.8 2.5 - 4.5 mg/dL LAB CHEMISTRY METHOD 05/24/2024 7:57 AM EST [facility] Blood Venous blood specimen / Unknown Venipuncture / Unknown 05/24/2024 6:07 AM EST 05/24/2024 7:03 AM EST Liang Reinoso MD LAB BLOOD ORDERABLE S Final Result Performing Organization Address City/[facility]/ZIP Co de Phone Number [facility] [address] [place] [address], [place] [phone] * Vancomycin, trough (05/23/2024 12:10 PM EST) Pathologist [facility] Vancomycin Trough 13.0 10.0 - 20.0 mcg/mL LAB CHEMISTRY METHOD 05/23/2024 12:59 PM [facility] Blood Venous blood specimen / Unknown Venipuncture / Unknown 05/23/2024 12:10 PM EST 05/23/2024 12:28 PM EST [facility] LAB BLOOD ORDERABLES Final Re sult Performing Organization Address City/[facility]/ZIP Co de Phone Number [facility] [address] [place] [address], [place] [phone] * (ABNORMAL) Basic metabolic panel (05/23/2024 8:24 AM EST) Pathologist [facility] Sodium 134 133 - 145 mmol/L LAB CHEMISTRY METHOD 05/23/2024 9:17 AM [facility] Potassium 3.9 3.5 - 5.5 mmol/L LAB CHEMISTRY METHOD 05/23/2024 9:17 AM [facility] Chloride 95(L) 96 - 110 mmol/L LAB CHEMISTRY METHOD 05/23/2024 9:17 AM [facility] CO2 34(H) 21 - 32 mmol/L LAB CHEMISTRY METHOD 05/23/2024 9:17 AM [facility] Anion Gap 5 3 - 11 LAB CHEMISTRY METHOD 05/23/2024 9:17 AM [facility] Glucose 160(H) 70 - 100 mg/dL LAB CHEMISTRY METHOD 05/23/2024 9:17 AM [facility] BUN 11 5 - 25 mg/dL LAB CHEMISTRY METHOD 05/23/2024 9:17 AM [facility] Creatinine 0.64(L) 0.70 - 1.30 mg/dL LAB CHEMISTRY METHOD 05/23/2024 9:17 AM [facility] eGFR 104 >=60 mL/min/1. 73m2 LAB CHEMISTRY METHOD 05/23/2024 9:17 AM [facility] Comment:Calculation based on the??Chronic Kidney Disease Epidemiology Collaboration (CKD-EPI) equation refit??without adjustment for race. BUN/Creatinine Ratio 17.2 LAB CHEMISTRY METHOD 05/23/2024 9:17 AM [facility] Calcium 8.4(L) 8.5 - 10.5 mg/dL LAB CHEMISTRY METHOD 05/23/2024 9:17 AM [facility] Blood Venous blood specimen / Unknown Venipuncture / Unknown 05/23/2024 8:24 AM EST 05/23/2024 8:44 AM EST us Jose Cruz Cordon MD LAB BLOOD ORDERABLES Final Resu lt [facility] [address] [place] [address], * Lavender tube (05/23/2024 3:07 AM EST) Extra Tube Hold for add-ons. 05/23/2024 5:01 AM EST [facility] Comment:Auto resulted. Blood Venous blood specimen / Unknown 05/23/2024 3:07 AM EST 05/23/2024 3:19 AM EST us Jose Cruz Cordon MD LAB BLOOD ORDERABLES Final Resu lt Performing Organization Address City/[facility]/ZIP Co de Phone Number [facility] [address] [place] [address], [place] [phone] * (ABNORMAL) Vancomycin, trough (05/23/2024 3:05 AM EST) Vancomycin Trough 21.3(H) 10.0 - 20.0 mcg/mL LAB CHEMISTRY METHOD 05/23/2024 4:00 AM EST [facility] Blood Venous blood specimen / Unknown Venipuncture / Unknown 05/23/2024 3:05 AM EST 05/23/2024 3:18 AM EST [facility] BLOOD ORDERABLES Final Re sult Performing Organization Address [facility]/ZIP Co de Phone Number [facility] [address] [place] [address], [place] [phone] * (ABNORMAL) Prothrombin time with INR (05/22/2024 5:42 AM EST) [facility] Protime 16.5(H) 10.6 - 13.9 sec LAB COAGULATION METHOD 05/22/2024 6:53 AM EST [facility] INR 1.3 LAB COAGULATION METHOD 05/22/2024 6:53 AM EST [facility] Blood Venous blood specimen / Unknown Venipuncture / Unknown 05/22/2024 5:42 AM EST 05/22/2024 6:25 AM EST Jose Cruz Cordon MD LAB BLOOD ORDERABLES Final Resu lt Performing Organization Address City/[facility]/ZIP Co de Phone Number [facility] [address] [place] [address], [place] [phone] * Phosphorus (05/22/2024 5:42 AM EST) Phosphorus 2.9 2.5 - 4.5 mg/dL LAB CHEMISTRY METHOD 05/22/2024 7:20 AM EST [facility] Blood Venous blood specimen / Unknown Venipuncture / Unknown 05/22/2024 5:42 AM EST 05/22/2024 6:25 AM EST us Jose Cruz Cordon MD LAB BLOOD ORDERABLES Final Resu lt Performing Organization Address City/[facility]/ZIP Co de Phone Number [facility] [address] [place] [address], [place] [phone] * Magnesium (05/22/2024 5:42 AM EST) Pathologist [facility] Magnesium 2.1 1.9 - 2.6 mg/dL LAB CHEMISTRY METHOD 05/22/2024 7:20 AM EST [facility] Blood Venous blood specimen / Unknown Venipuncture / Unknown 05/22/2024 5:42 AM EST 05/22/2024 6:25 AM EST us Jose Cruz Cordon MD LAB BLOOD ORDERABLES Final Resu lt Performing Organization Address City/[facility]/ZIP Co de Phone Number [facility] [address] [place] [address], [place] [phone] * (ABNORMAL) Basic metabolic panel (05/22/2024 5:42 AM EST) Sodium 136 133 - 145 mmol/L LAB CHEMISTRY METHOD 05/22/2024 7:20 AM EST [facility] Potassium 4.4 3.5 - 5.5 mmol/L LAB CHEMISTRY METHOD 05/22/2024 7:20 AM EST [facility] Chloride 100 96 - 110 mmol/L LAB CHEMISTRY METHOD 05/22/2024 7:20 AM EST [facility] CO2 30 21 - 32 mmol/L LAB CHEMISTRY METHOD 05/22/2024 7:20 AM EST [facility] Anion Gap 6 3 - 11 LAB CHEMISTRY METHOD 05/22/2024 7:20 AM [facility] Glucose 139(H) 70 - 100 mg/dL LAB CHEMISTRY METHOD 05/22/2024 7:20 AM [facility] BUN 10 5 - 25 mg/dL LAB CHEMISTRY METHOD 05/22/2024 7:20 AM [facility] Creatinine 0.58(L) 0.70 - 1.30 mg/dL LAB CHEMISTRY METHOD 05/22/2024 7:20 AM [facility] eGFR 108 >=60 mL/min/1. 73m2 LAB CHEMISTRY METHOD 05/22/2024 7:20 AM [facility] Comment:Calculation based on the??Chronic Kidney Disease Epidemiology Collaboration (CKD-EPI) equation refit??without adjustment for race. BUN/Creatinine Ratio 17.2 LAB CHEMISTRY METHOD 05/22/2024 7:20 AM [facility] Calcium 8.1(L) 8.5 - 10.5 mg/dL LAB CHEMISTRY METHOD 05/22/2024 7:20 AM [facility] Blood Venous blood specimen / Unknown Venipuncture / Unknown 05/22/2024 5:42 AM EST 05/22/2024 6:25 AM EST us Jose Cruz Cordon MD LAB BLOOD ORDERABLES Final Resu lt [facility] [address] [place] [address], * Lavender tube (05/22/2024 5:37 AM EST) Extra Tube Hold for add-ons. 05/22/2024 8:01 AM EST [facility] Comment:Auto resulted. Blood Venous blood specimen / Unknown Venipuncture / Unknown 05/22/2024 5:37 AM EST 05/22/2024 6:30 AM EST us Jose Cruz Cordon MD LAB BLOOD ORDERABLES Final Resu lt [facility] [address] [place] [address], [place] [phone] * Vascular US duplex lower extremity venous bilateral (05/21/2024 9:14 AM EST) Anatomical Region Laterality Modality Vascular, Abdomen Ultrasound 05/21/2024 9:22 AM EST Impressions 05/21/2024 9:23 AM EST NONOCCLUSIVE THROMBUS IN THE RIGHT COMMON FEMORAL VEIN. ?? NO VENOUS THROMBOSIS IN THE LEFT LOWER EXTREMITY VEINS. -------- FINAL REPORT -------- Dictated By: JENNIFER MESA Dictated Date: 05/21/2024 09:22 ET Assigned Physician: JENNIFER MESA Reviewed and Electronically Signed By: JENNIFER MESA Signed Date: 05/21/2024 09:23 ET Workstation ID: [id number] Transcribed By: Self Edit Transcribed Date: 05/21/2024 09:22 ET Narrative 05/21/2024 9:23 AM EST PROCEDURE: VAS US DUPLEX LOWER EXT VENOUS BILAT INDICATION: Edema TECHNIQUE: 2-D and color Doppler imaging of the lower extremity venous vasculature with compression and augmentation maneuvers. COMPARISON: No priors available. FINDINGS: RIGHT: Nonocclusive thrombus in the right common femoral vein. ??Remainder of the right lower extremity veins are patent where visualized. LEFT: There is normal flow, compression, and augmentation from the common femoral through the popliteus. ??Visualized calf veins are patent. Procedure Note Jennifer Mesa MD - 05/21/2024 PROCEDURE: VAS US DUPLEX LOWER EXT VENOUS BILAT INDICATION: Edema TECHNIQUE: 2-D and color Doppler imaging of the lower extremity venousvasculature with compression and augmentation maneuvers. COMPARISON: No priors available. FINDINGS: RIGHT: Nonocclusive thrombus in the right common femoral vein. Remainderof the right lower extremity veins are patent where visualized. LEFT: There is normal flow, compression, and augmentation from the commonfemoral through the popliteus. Visualized calf veins are patent. IMPRESSION: NONOCCLUSIVE THROMBUS IN THE RIGHT COMMON FEMORAL VEIN. NO VENOUS THROMBOSIS IN THE LEFT LOWER EXTREMITY VEINS. -------- FINAL REPORT -------- Dictated By: JENNIFER MESA Dictated Date: 05/21/2024 09:22 ET Assigned Physician: JENNIFER MESA Reviewed and Electronically Signed By: JENNIFER MESA Signed Date: 05/21/2024 09:23 ET Workstation ID: [id number] Transcribed By: Self Edit Transcribed Date: 05/21/2024 09:22 ET us Jose Cruz Cordon MD CV VASCULAR PROCEDURES Final Re sult * Triiodothyronine free (05/21/2024 3:17 AM EST) T3, Free 249 230 - 420 pcg/dL LAB CHEMISTRY METHOD 05/21/2024 4:50 AM EST [facility] Blood Venous blood specimen / Unknown Venipuncture / Unknown 05/21/2024 3:17 AM EST 05/21/2024 3:23 AM EST us Jose Cruz Cordon MD LAB BLOOD ORDERABLES Final Resu lt Performing Organization Address City/[facility]/ZIP Co de Phone Number [facility] [address] [place] [address], [place] [phone] * Free thyroxine with reflex to free triiodothyronine (05/21/2024 3:17 AM EST) Free T4 1.02 0.70 - 1.80 ng/dL LAB CHEMISTRY METHOD 05/21/2024 4:25 AM EST [facility] Blood Venous blood specimen / Unknown Venipuncture / Unknown 05/21/2024 3:17 AM EST 05/21/2024 3:23 AM EST us Jose Cruz Cordon MD LAB BLOOD ORDERABLES Final Resu lt [facility] [address] [place] [address], * (ABNORMAL) CBC auto differential (05/21/2024 3:17 AM EST) [facility] WBC 9.0 4.8 - 10.8 K/mcL LAB HEMETOLOGY METHOD 05/21/2024 3:29 AM [facility] RBC 3.70(L) 4.50 - 5.50 M/mcL LAB HEMETOLOGY METHOD 05/21/2024 3:29 AM [facility] Hemoglobin 12.6(L) 13.5 - 17.5 g/dL LAB HEMETOLOGY METHOD 05/21/2024 3:29 AM [facility] Hematocrit 37.2(L) 42.0 - 54.0 % LAB HEMETOLOGY METHOD 05/21/2024 3:29 AM [facility] MCV 101.4(H) 79.0 - 98.0 FL LAB HEMETOLOGY METHOD 05/21/2024 3:29 AM [facility] MCH 34.3(H) 27.0 - 32.0 pcg LAB HEMETOLOGY METHOD 05/21/2024 3:29 AM [facility] MCHC 33.9 32.0 - 37.0 g/dL LAB HEMETOLOGY METHOD 05/21/2024 3:29 AM [facility] RDW 15.9(H) 11.0 - 15.0 % LAB HEMETOLOGY METHOD 05/21/2024 3:29 AM [facility] Platelets 109(L) 130 - 400 K/mcL LAB HEMETOLOGY METHOD 05/21/2024 3:29 AM [facility] MPV 10.7 7.0 - 11.0 FL LAB HEMETOLOGY METHOD 05/21/2024 3:29 AM [facility] NRBC 0.0 <1.0 % LAB HEMETOLOGY METHOD 05/21/2024 3:29 AM [facility] NRBC Absolute 0.00 <0.10 K/mcL LAB HEMETOLOGY METHOD 05/21/2024 3:29 AM [facility] Neutrophils Relative 73.9 % LAB HEMETOLOGY METHOD 05/21/2024 3:29 AM [facility] Lymphocytes Relative 9.1 % LAB HEMETOLOGY METHOD 05/21/2024 3:29 AM [facility] Monocytes Relative 10.9 % LAB HEMETOLOGY METHOD 05/21/2024 3:29 AM [facility] Eosinophils Relative 2.5 % LAB HEMETOLOGY METHOD 05/21/2024 3:29 AM [facility] Basophils Relative 0.7 % LAB HEMETOLOGY METHOD 05/21/2024 3:29 AM [facility] Immature Granulocytes Relative 2.9 % LAB HEMETOLOGY METHOD 05/21/2024 3:29 AM [facility] Neutrophils Absolute 6.67 1.50 - 7.00 K/mcL LAB HEMETOLOGY METHOD 05/21/2024 3:29 AM [facility] Lymphocytes Absolute 0.82(L) 1.00 - 5.00 K/mcL LAB HEMETOLOGY METHOD 05/21/2024 3:29 AM [facility] Monocytes Absolute 0.98 0.20 - 1.00 K/mcL LAB HEMETOLOGY METHOD 05/21/2024 3:29 AM [facility] Eosinophils Absolute 0.23 0.00 - 0.50 K/mcL LAB HEMETOLOGY METHOD 05/21/2024 3:29 AM [facility] Basophils Absolute 0.06 0.00 - 0.20 K/mcL LAB HEMETOLOGY METHOD 05/21/2024 3:29 AM [facility] Immature Granulocytes Absolute 0.26(H) 0.00 - 0.03 K/mcL LAB HEMETOLOGY METHOD 05/21/2024 3:29 AM EST [facility] Blood Venous blood specimen / Unknown Venipuncture / Unknown 05/21/2024 3:17 AM EST 05/21/2024 3:23 AM EST us Jose Cruz Cordon MD LAB BLOOD ORDERABLES Final Resu lt Performing Organization Address City/[facility]/ZIP Co de Phone Number [facility] [address] [place] [address], [place] [phone] * Lactate (05/21/2024 3:17 AM EST) Lactate 1.8 0.4 - 2.0 mmol/L LAB CHEMISTRY METHOD 05/21/2024 3:58 AM EST [facility] Blood Venous blood specimen / Unknown Venipuncture / Unknown 05/21/2024 3:17 AM EST 05/21/2024 3:23 AM EST us Jose Cruz Cordon MD LAB BLOOD ORDERABLES Final Resu lt Performing Organization Address City/[facility]/ZIP Co de Phone Number [facility] [address] [place] [address], [place] [phone] * (ABNORMAL) Thyroid stimulating hormone with reflex to free t4 and free t3 (05/21/2024 3:17 AM EST) TSH 8.16(H) 0.40 - 4.00 mcIU/mL LAB CHEMISTRY METHOD 05/21/2024 3:59 AM EST [facility] Blood Venous blood specimen / Unknown Venipuncture / Unknown 05/21/2024 3:17 AM EST 05/21/2024 3:23 AM EST us Jose Cruz Cordon MD LAB BLOOD ORDERABLES Final Resu lt Performing Organization Address City/State/[facility] Co de Phone Number [facility] [address] [place] [address], * Hemoglobin A1c (05/21/2024 3:17 AM EST) Pathologist [facility] Hemoglobin A1C 4.9 <6.5 % LAB CHEMISTRY METHOD 05/21/2024 1:49 PM EST [facility] Mean Bld Glu Estim. 94 mg/dL LAB CHEMISTRY METHOD 05/21/2024 1:49 PM EST [facility] Blood Venous blood specimen / Unknown Venipuncture / Unknown 05/21/2024 3:17 AM EST 05/21/2024 3:23 AM EST us Jose Cruz Cordon MD LAB BLOOD ORDERABLES Final Resu lt Performing Organization Address [facility] Co de Phone Number [facility] [address] [place] [address], * Phosphorus (05/21/2024 3:17 AM EST) [facility] Phosphorus 2.7 2.5 - 4.5 mg/dL LAB CHEMISTRY METHOD 05/21/2024 3:49 AM EST [facility] Blood Venous blood specimen / Unknown Venipuncture / Unknown 05/21/2024 3:17 AM EST 05/21/2024 3:23 AM EST us Jose Cruz Cordon MD LAB BLOOD ORDERABLES Final Resu lt Performing Organization Address [facility] Co de Phone Number [facility] [address] [place] [address], * (ABNORMAL) Prothrombin time with INR (05/21/2024 3:17 AM EST) [facility] Protime 16.9(H) 10.6 - 13.9 sec LAB COAGULATION METHOD 05/21/2024 3:32 AM [facility] INR 1.4 LAB COAGULATION METHOD 05/21/2024 3:32 AM [facility] Blood Venous blood specimen / Unknown Venipuncture / Unknown 05/21/2024 3:17 AM EST 05/21/2024 3:23 AM EST us Jose Cruz Cordon MD LAB BLOOD ORDERABLES Final Resu lt [facility] [address] [place] [address], [place] [phone] * (ABNORMAL) Comprehensive metabolic panel (05/21/2024 3:17 AM EST) Sodium 135 133 - 145 mmol/L LAB CHEMISTRY METHOD 05/21/2024 3:49 AM [facility] Potassium 3.4(L) 3.5 - 5.5 mmol/L LAB CHEMISTRY METHOD 05/21/2024 3:49 AM [facility] Chloride 102 96 - 110 mmol/L LAB CHEMISTRY METHOD 05/21/2024 3:49 AM [facility] CO2 29 21 - 32 mmol/L LAB CHEMISTRY METHOD 05/21/2024 3:49 AM [facility] Anion Gap 4 3 - 11 LAB CHEMISTRY METHOD 05/21/2024 3:49 AM [facility] Glucose 161(H) 70 - 100 mg/dL LAB CHEMISTRY METHOD 05/21/2024 3:49 AM [facility] BUN 15 5 - 25 mg/dL LAB CHEMISTRY METHOD 05/21/2024 3:49 AM [facility] Creatinine 0.63(L) 0.70 - 1.30 mg/dL LAB CHEMISTRY METHOD 05/21/2024 3:49 AM [facility] eGFR 105 >=60 mL/min/1. 73m2 LAB CHEMISTRY METHOD 05/21/2024 3:49 AM [facility] Comment:Calculation based on the??Chronic Kidney Disease Epidemiology Collaboration (CKD-EPI) equation refit??without adjustment for race. BUN/Creatinine Ratio 23.8 LAB CHEMISTRY METHOD 05/21/2024 3:49 AM [facility] Calcium 7.6(L) 8.5 - 10.5 mg/dL LAB CHEMISTRY METHOD 05/21/2024 3:49 AM [facility] AST (SGOT) 31 10 - 42 unit/L LAB CHEMISTRY METHOD 05/21/2024 3:49 AM [facility] ALT (SGPT) 21 10 - 60 unit/L LAB CHEMISTRY METHOD 05/21/2024 3:49 AM [facility] Alkaline Phosphatase 139(H) 42 - 121 unit/L LAB CHEMISTRY METHOD 05/21/2024 3:49 AM [facility] Total Protein 5.4(L) 6.0 - 8.0 g/dL LAB CHEMISTRY METHOD 05/21/2024 3:49 AM [facility] LAB Albumin 2.3(L) 3.2 - 5.0 g/dL LAB CHEMISTRY METHOD 05/21/2024 3:49 AM [facility] Total Bilirubin 3.0(H) 0.0 - 1.4 mg/dL LAB CHEMISTRY METHOD 05/21/2024 3:49 AM [facility] Blood Venous blood specimen / Unknown Venipuncture / Unknown 05/21/2024 3:17 AM EST 05/21/2024 3:23 AM EST us Jose Cruz Cordon MD LAB BLOOD ORDERABLES Final Resu lt [facility] [address] [place] [address], * (ABNORMAL) Magnesium (05/21/2024 3:17 AM EST) Magnesium 1.8(L) 1.9 - 2.6 mg/dL LAB CHEMISTRY METHOD 05/21/2024 3:49 AM EST [facility] Blood Venous blood specimen / Unknown Venipuncture / Unknown 05/21/2024 3:17 AM EST 05/21/2024 3:23 AM EST us Jose Cruz Cordon MD LAB BLOOD ORDERABLES Final Resu lt Performing Organization Address [facility]/ZIP Co de Phone Number [facility] [address] [place] [address], [place] [phone] * Vancomycin, trough Please draw prior to vancomycin dose. (05/21/2024 3:17 AM EST) [facility] Vancomycin Trough 16.4 10.0 - 20.0 mcg/mL LAB CHEMISTRY METHOD 05/21/2024 3:49 AM EST [facility] Blood Venous blood specimen / Unknown Venipuncture / Unknown 05/21/2024 3:17 AM EST 05/21/2024 3:23 AM EST [facility] LAB BLOOD ORDERABLES Final Re sult Performing Organization Address [facility] Co de Phone Number [facility] [address] [place] [address], [place] [phone] * (ABNORMAL) POCT Glucose, blood (05/20/2024 8:37 AM EST) [facility] Glucose POCT 162(H) 70 - 100 mg/dL 05/20/2024 8:37 AM EST [facility] Blood Capillary blood specimen / Unknown 05/20/2024 8:37 AM EST 05/20/2024 8:38 AM EST us Jose Cruz Cordon MD LAB POINT OF CARE TE ST DOCKED DEVICE UNSOLICITED RESULTS Final Result Performing Organization Address City/[facility]/ZIP Co de Phone Number [facility] [address] [place] [address], [place] [phone] * (ABNORMAL) Sedimentation rate (05/20/2024 6:09 AM EST) [facility] Sed Rate 35(H) 0 - 20 mm/hr LAB HEMETOLOGY METHOD 05/20/2024 2:00 PM EST [facility] Blood Venous blood specimen / Unknown Venipuncture / Unknown 05/20/2024 6:09 AM EST 05/20/2024 6:32 AM EST us Jose Cruz Cordon MD LAB BLOOD ORDERABLES Final Resu lt Performing Organization Address City/[facility]/ZIP Co de Phone Number [facility] [address] [place] [address], [place] [phone] * (ABNORMAL) C-reactive protein (05/20/2024 6:09 AM EST) [facility] C-Reactive Protein 15.70(H) <=0.50 mg/dL LAB CHEMISTRY METHOD 05/20/2024 2:43 PM EST [facility] Blood Venous blood specimen / Unknown Venipuncture / Unknown 05/20/2024 6:09 AM EST 05/20/2024 6:30 AM EST us Jose Cruz Cordon MD LAB BLOOD ORDERABLES Final Resu lt [facility] [address] [place] [address], [place] [phone] * (ABNORMAL) Complete blood count (05/20/2024 6:09 AM EST) [facility] WBC 8.8 4.8 - 10.8 K/mcL LAB HEMETOLOGY METHOD 05/20/2024 8:09 AM EST [facility] RBC 3.30(L) 4.50 - 5.50 M/mcL LAB HEMETOLOGY METHOD 05/20/2024 8:09 AM [facility] Hemoglobin 11.2(L) 13.5 - 17.5 g/dL LAB HEMETOLOGY METHOD 05/20/2024 8:09 AM [facility] Hematocrit 32.8(L) 42.0 - 54.0 % LAB HEMETOLOGY METHOD 05/20/2024 8:09 AM [facility] MCV 100.6(H) 79.0 - 98.0 FL LAB HEMETOLOGY METHOD 05/20/2024 8:09 AM [facility] MCH 34.4(H) 27.0 - 32.0 pcg LAB HEMETOLOGY METHOD 05/20/2024 8:09 AM [facility] MCHC 34.1 32.0 - 37.0 g/dL LAB HEMETOLOGY METHOD 05/20/2024 8:09 AM [facility] RDW 15.7(H) 11.0 - 15.0 % LAB HEMETOLOGY METHOD 05/20/2024 8:09 AM [facility] Platelets 90(L) 130 - 400 K/mcL LAB HEMETOLOGY METHOD 05/20/2024 8:09 AM [facility] Comment:reviewed by slide MPV 10.8 7.0 - 11.0 FL LAB HEMETOLOGY METHOD 05/20/2024 8:09 AM [facility] NRBC 0.0 <1.0 % LAB HEMETOLOGY METHOD 05/20/2024 8:09 AM [facility] NRBC Absolute 0.00 <0.10 K/mcL LAB HEMETOLOGY METHOD 05/20/2024 8:09 AM [facility] Blood Venous blood specimen / Unknown Venipuncture / Unknown 05/20/2024 6:09 AM EST 05/20/2024 6:32 AM EST us Rosaura Iglesias MD LAB BLOOD ORDERABLES Final Res ult [facility] [address] [place] [address], * (ABNORMAL) Basic metabolic panel (05/20/2024 6:09 AM EST) Sodium 134 133 - 145 mmol/L LAB CHEMISTRY METHOD 05/20/2024 7:11 AM [facility] Potassium 3.3(L) 3.5 - 5.5 mmol/L LAB CHEMISTRY METHOD 05/20/2024 7:11 AM [facility] Chloride 102 96 - 110 mmol/L LAB CHEMISTRY METHOD 05/20/2024 7:11 AM [facility] CO2 27 21 - 32 mmol/L LAB CHEMISTRY METHOD 05/20/2024 7:11 AM [facility] Anion Gap 5 3 - 11 LAB CHEMISTRY METHOD 05/20/2024 7:11 AM [facility] Glucose 153(H) 70 - 100 mg/dL LAB CHEMISTRY METHOD 05/20/2024 7:11 AM [facility] BUN 18 5 - 25 mg/dL LAB CHEMISTRY METHOD 05/20/2024 7:11 AM [facility] Creatinine 0.56(L) 0.70 - 1.30 mg/dL LAB CHEMISTRY METHOD 05/20/2024 7:11 AM [facility] eGFR 109 >=60 mL/min/1. 73m2 LAB CHEMISTRY METHOD 05/20/2024 7:11 AM [facility] Comment:Calculation based on the??Chronic Kidney Disease Epidemiology Collaboration (CKD-EPI) equation refit??without adjustment for race. BUN/Creatinine Ratio 32.1 LAB CHEMISTRY METHOD 05/20/2024 7:11 AM [facility] Calcium 7.9(L) 8.5 - 10.5 mg/dL LAB CHEMISTRY METHOD 05/20/2024 7:11 AM EST [facility] Blood Venous blood specimen / Unknown Venipuncture / Unknown 05/20/2024 6:09 AM EST 05/20/2024 6:30 AM EST Rosaura Iglesias MD LAB BLOOD ORDERABLES Final Res ult Performing Organization Address [facility]/ZIP Co de Phone Number [facility] [address] [place] [address], [place] [phone] * (ABNORMAL) Lactate (05/20/2024 1:02 AM EST) Lactate 2.2(H) 0.4 - 2.0 mmol/L LAB CHEMISTRY METHOD 05/20/2024 1:38 AM EST [facility] Blood Venous blood specimen / Unknown Venipuncture / Unknown 05/20/2024 1:02 AM EST 05/20/2024 1:06 AM EST us [facility] LAB BLOOD ORDERABLES Final Re sult Performing Organization Address [facility] Co de Phone Number [facility] [address] [place] [address], [place] [phone] * (ABNORMAL) Lactate (05/19/2024 10:05 PM EST) Lactate 2.3(H) 0.4 - 2.0 mmol/L LAB CHEMISTRY METHOD 05/19/2024 10:38 PM EST [facility] Blood Venous blood specimen / Unknown Venipuncture / Unknown 05/19/2024 10:05 PM EST 05/19/2024 10:12 PM EST [facility] LAB BLOOD ORDERABLES Final Re sult Performing Organization Address City/[facility]/ZIP Co de Phone Number [facility] [address] [place] [address], [place] [phone] * XR Chest 2 Views (05/19/2024 6:51 PM EST) Anatomical Region Laterality Modality Body Radiographic Esmer ging 05/20/2024 8:05 AM EST Impressions 05/20/2024 8:06 AM EST Small-moderate left pleural effusion. -------- FINAL REPORT -------- Dictated By: Frank Vivar Dictated Date: 05/20/2024 08:05 ET Assigned Physician: Frank Vivar Reviewed and Electronically Signed By: Frank Vivar Signed Date: 05/20/2024 08:06 ET Workstation ID: [id number] Transcribed By: Self Edit Transcribed Date: 05/20/2024 08:05 ET Narrative 05/20/2024 8:06 AM EST PROCEDURE: PA and lateral radiographs of the chest. HISTORY: chest pain. COMPARISON: 09/23/2008. FINDINGS: There is a small left moderate layering left pleural effusion which is new compared with the previous study. ??A small right pleural effusion seen on the previous study is no longer present. ??Heart size is normal. ??Atherosclerotic calcification of the aorta. ??No pneumothorax. ??Pulmonary vasculature appears normal. ??Degenerative changes of the spine and shoulders. Procedure Note Frank Vivar MD - 05/20/2024 PROCEDURE: PA and lateral radiographs of the chest. HISTORY: chest pain. COMPARISON: 09/23/2008. FINDINGS: There is a small left moderate layering left pleural effusion which is newcompared with the previous study. A small right pleural effusion seen onthe previous study is no longer present. Heart size is normal.Atherosclerotic calcification of the aorta. No pneumothorax. Pulmonaryvasculature appears normal. Degenerative changes of the spine andshoulders. IMPRESSION: Small-moderate left pleural effusion. -------- FINAL REPORT -------- Dictated By: Frank Vivar Dictated Date: 05/20/2024 08:05 ET Assigned Physician: Frank Viavr Reviewed and Electronically Signed By: Frank Vivar Signed Date: 05/20/2024 08:06 ET Workstation ID: [id number] Transcribed By: Self Edit Transcribed Date: 05/20/2024 08:05 ET us [facility] IMG XR PROCEDURES Final Resul t * Blood Culture, Peripheral Draw #2 (05/19/2024 6:13 PM EST) Culture, Blood No growth at 5 days 05/24/2024 7:01 PM EST [facility] Blood Venous blood specimen / Unknown Venipuncture / Unknown 05/19/2024 6:13 PM EST 05/19/2024 6:23 PM EST Rosaura Iglesias MD LAB MICROBIOLOGY - GENERAL ORD ERABLES Final Result Performing Organization Address City/[facility]/ZIP Co de Phone Number [facility] [address] [place] [address], [place] [phone] * Blood Culture, Peripheral Draw #1 (05/19/2024 6:13 PM EST) Culture, Blood No growth at 5 days 05/24/2024 7:01 PM EST [facility] Blood Venous blood specimen / Unknown Venipuncture / Unknown 05/19/2024 6:13 PM EST 05/19/2024 6:22 PM EST Rosaura Iglesias MD LAB MICROBIOLOGY - GENERAL ORD ERABLES Final Result [facility] [address] [place] [address], [place] [phone] * (ABNORMAL) Lactate (05/19/2024 6:13 PM EST) Lactate 3.4(HH) 0.4 - 2.0 mmol/L LAB CHEMISTRY METHOD 05/19/2024 7:08 PM EST [facility] Blood Venous blood specimen / Unknown Venipuncture / Unknown 05/19/2024 6:13 PM EST 05/19/2024 6:23 PM EST [facility] LAB BLOOD ORDERABLES Final Re sult Performing Organization Address [facility]/ZIP Co de Phone Number [facility] [address] [place] [address], [place] [phone] * ECG 12 lead (05/19/2024 5:11 PM EST) [facility] Ventricular Rate ECG 109 BPM [facility] Atrial Rate 267 BPM G[facility] QRS Duration 132 ms GEMUSE Q-T Interval 360 ms GEMUSE QTc 484 ms GEMUSE R [place] -31 degrees GEMUSE T [place] 20 degrees GEMUSE ECG Interpretation Sinus tachycardia Left axis deviation Right bundle branch block Abnormal ECG When compared with ECG of 19-MAY-2024 16:22, (unconfirmed) No significant change was found Confirmed by Fabian JOSEPH YUFENG ([id number]) on 05/20/2024 6:05:19 PM [facility] 05/19/2024 5:11 PM EST 05/20/2024 6:05 PM EST Leroyarianna Colby Stalin Francisco DO ECG ORDERABLES Final Res ult Performing Organization Address [facility] Co de Phone Number [facility] * Troponin I high sensitivity (05/19/2024 5:03 PM EST) [facility] High Sensitivity Troponin I 7 <=79 ng/L LAB CHEMISTRY METHOD 05/19/2024 5:50 PM EST [facility] Blood Venous blood specimen / Unknown Venipuncture / Unknown 05/19/2024 5:03 PM EST 05/19/2024 5:17 PM EST Narrative [facility] - 05/19/2024 5:50 PM EST High levels of biotin in samples may falsely decrease hsTroponin values. ??Use caution when interpreting hsTroponin results in patients taking biotin who exhibit renal impairment (eGFR <60) or in patients taking more than 20 mg/day of biotin. [employer] Stalin Singh LAB BLOOD ORDERABLES Berenice l Result Performing Organization Address [facility]/ZIP Co de Phone Number [facility] [address] [place] [address], [place] [phone] * Culture urine (05/19/2024 4:28 PM EST) Culture, Urine >100,000 CFU/mL Mixed bacterial morphotypes present suggestive of possible contamination during collection. Suggest appropriate recollection if clinically indicated. 05/20/2024 11:48 AM EST [facility] Urine Indwelling urinary catheter / Unknown Non-blood Collection / Unknown 05/19/2024 4:28 PM EST 05/19/2024 5:25 PM EST [facility] Stalin Singh LAB MICROBIOLOGY - GENERA L ORDERABLES Final Result Performing Organization Address [facility] de Phone Number [facility] [address] [place] [address], [place] [phone] * Pugh urine culture tube (05/19/2024 4:28 PM EST) Extra Tube Hold for add-ons. 05/19/2024 6:02 PM EST [facility] Comment:Auto resulted. Urine Indwelling urinary catheter / Unknown Non-blood Collection / Unknown 05/19/2024 4:28 PM EST 05/19/2024 4:47 PM EST [facility] [employer] LAB URINE ORDERABLES Berenice l Result Performing Organization Address [facility]/ZIP Co de Phone Number [facility] [address] [place] [address], [place] [phone] * (ABNORMAL) Urinalysis with reflex microscopic and culture (05/19/2024 4:28 PM EST) Specific [place] Urine 1.033(H) 1.003 - 1.030 LAB URINALYSIS - AUTOMATED METHOD 05/19/2024 5:25 PM [facility] pH, Urine 7.5 5.0 - 8.0 pH LAB URINALYSIS - AUTOMATED METHOD 05/19/2024 5:25 PM [facility] Leukocytes, Urine Moderate(A) Negative LAB URINALYSIS - AUTOMATED METHOD 05/19/2024 5:25 PM [facility] Nitrite, Urine Positive(A) Negative LAB URINALYSIS - AUTOMATED METHOD 05/19/2024 5:25 PM [facility] Protein, Urine 100(A) <=Trace mg/dL LAB URINALYSIS - AUTOMATED METHOD 05/19/2024 5:25 PM [facility] Glucose, Urine Negative Negative mg/dL LAB URINALYSIS - AUTOMATED METHOD 05/19/2024 5:25 PM [facility] Ketones, Urine Trace(A) Negative mg/dL LAB URINALYSIS - AUTOMATED METHOD 05/19/2024 5:25 PM [facility] Urobilinogen , Urine 1.0 0.2 - 1.0 mg/dL LAB URINALYSIS - AUTOMATED METHOD 05/19/2024 5:25 PM [facility] Bilirubin, Urine Small(A) Negative LAB URINALYSIS - AUTOMATED METHOD 05/19/2024 5:25 PM [facility] Blood, Urine Large(A) Negative LAB URINALYSIS - AUTOMATED METHOD 05/19/2024 5:25 PM [facility] RBC, Urine 400.0(H) 0 - 4 /HPF LAB URINALYSIS - AUTOMATED METHOD 05/19/2024 5:25 PM [facility] WBC, Urine 100.0(H) 0 - 4 /HPF LAB URINALYSIS - AUTOMATED METHOD 05/19/2024 5:25 PM EST [facility] Squamous Epithelial, Urine 0 0 - 60 /LPF LAB URINALYSIS - AUTOMATED METHOD 05/19/2024 5:25 PM [facility] Crystals, Urine HEAVY TRIPLE PHOS, HEAVY LIZ PHOSPHATE,M ODERATE CALCIUM OXALATE /LPF LAB URINALYSIS - AUTOMATED METHOD 05/19/2024 5:25 PM [facility] Bacteria, Urine Many(A) Negative /HPF LAB URINALYSIS - AUTOMATED METHOD 05/19/2024 5:25 PM [facility] Hyaline Casts, Urine 0.0 0 - 3 /LPF LAB URINALYSIS - AUTOMATED METHOD 05/19/2024 5:25 PM [facility] Urine Indwelling urinary catheter / Unknown Non-blood Collection / Unknown 05/19/2024 4:28 PM EST 05/19/2024 4:47 PM EST [employer] Lasha Singh DO LAB URINE ORDERABLES Berenice l Result [facility] [address] [place] [address], [place] [phone] * ECG 12 lead (05/19/2024 4:22 PM EST) Ventricular Rate ECG 108 BPM [facility] Atrial Rate 113 BPM [facility] QRS Duration 132 ms GEMUSE Q-T Interval 368 ms GEMUSE QTc 493 ms GEMUSE R [place] -28 degrees GEMUSE T [place] 34 degrees GEMUSE ECG Interpretation Sinus rhythm with premature atrial complexes Right bundle branch block Abnormal ECG When compared with ECG of 23-SEP-2008 11:46, Right bundle branch block has replaced RSR' pattern in V1 Confirmed by Fabian JOSEPH, APOLINAR ([id number]) on 05/20/2024 6:04:23 PM [facility] 05/19/2024 4:22 PM EST 05/20/2024 6:04 PM EST us Emily Singh DO ECG ORDERABLES Final Res ult [facility] * (ABNORMAL) Protime-INR (05/19/2024 4:10 PM EST) [facility] Protime 16.9(H) 10.6 - 13.9 sec LAB COAGULATION METHOD 05/19/2024 4:35 PM EST [facility] INR 1.4 LAB COAGULATION METHOD 05/19/2024 4:35 PM EST [facility] Blood Venous blood specimen / Unknown Venipuncture / Unknown 05/19/2024 4:10 PM EST 05/19/2024 4:25 PM EST Leroy Lasha Singh LAB BLOOD ORDERABLES Berenice l Result Performing Organization Address [facility]/ZIP Co de Phone Number [facility] [address] [place] [address], [place] [phone] * (ABNORMAL) Lactate (05/19/2024 4:10 PM EST) [facility] Lactate 4.4(HH) 0.4 - 2.0 mmol/L LAB CHEMISTRY METHOD 05/19/2024 5:12 PM EST [facility] Blood Venous blood specimen / Unknown Venipuncture / Unknown 05/19/2024 4:10 PM EST 05/19/2024 4:25 PM EST [facility] Lasha Singh LAB BLOOD ORDERABLES Berenice l Result Performing Organization Address City/[facility]/ZIP Co de Phone Number [facility] [address] [place] [address], [place] [phone] * (ABNORMAL) CBC auto differential (05/19/2024 4:10 PM EST) [facility] WBC 12.3(H) 4.8 - 10.8 K/mcL LAB HEMETOLOGY METHOD 05/19/2024 4:33 PM [facility] RBC 3.90(L) 4.50 - 5.50 M/mcL LAB HEMETOLOGY METHOD 05/19/2024 4:33 PM [facility] Hemoglobin 13.3(L) 13.5 - 17.5 g/dL LAB HEMETOLOGY METHOD 05/19/2024 4:33 PM [facility] Hematocrit 39.2(L) 42.0 - 54.0 % LAB HEMETOLOGY METHOD 05/19/2024 4:33 PM [facility] MCV 100.5(H) 79.0 - 98.0 FL LAB HEMETOLOGY METHOD 05/19/2024 4:33 PM [facility] MCH 34.1(H) 27.0 - 32.0 pcg LAB HEMETOLOGY METHOD 05/19/2024 4:33 PM [facility] MCHC 33.9 32.0 - 37.0 g/dL LAB HEMETOLOGY METHOD 05/19/2024 4:33 PM [facility] RDW 15.9(H) 11.0 - 15.0 % LAB HEMETOLOGY METHOD 05/19/2024 4:33 PM [facility] Platelets 116(L) 130 - 400 K/mcL LAB HEMETOLOGY METHOD 05/19/2024 4:33 PM [facility] MPV 10.9 7.0 - 11.0 FL LAB HEMETOLOGY METHOD 05/19/2024 4:33 PM [facility] NRBC 0.0 <1.0 % LAB HEMETOLOGY METHOD 05/19/2024 4:33 PM [facility] NRBC Absolute 0.00 <0.10 K/mcL LAB HEMETOLOGY METHOD 05/19/2024 4:33 PM [facility] Neutrophils Relative 83.0 % LAB HEMETOLOGY METHOD 05/19/2024 4:33 PM [facility] Lymphocytes Relative 5.6 % LAB HEMETOLOGY METHOD 05/19/2024 4:33 PM [facility] Monocytes Relative 8.4 % LAB HEMETOLOGY METHOD 05/19/2024 4:33 PM [facility] Eosinophils Relative 0.8 % LAB HEMETOLOGY METHOD 05/19/2024 4:33 PM [facility] Basophils Relative 0.5 % LAB HEMETOLOGY METHOD 05/19/2024 4:33 PM [facility] Immature Granulocytes Relative 1.7 % LAB HEMETOLOGY METHOD 05/19/2024 4:33 PM [facility] Neutrophils Absolute 10.23(H) 1.50 - 7.00 K/mcL LAB HEMETOLOGY METHOD 05/19/2024 4:33 PM [facility] Lymphocytes Absolute 0.69(L) 1.00 - 5.00 K/mcL LAB HEMETOLOGY METHOD 05/19/2024 4:33 PM [facility] Monocytes Absolute 1.03(H) 0.20 - 1.00 K/mcL LAB HEMETOLOGY METHOD 05/19/2024 4:33 PM [facility] Eosinophils Absolute 0.10 0.00 - 0.50 K/mcL LAB HEMETOLOGY METHOD 05/19/2024 4:33 PM [facility] Basophils Absolute 0.06 0.00 - 0.20 K/mcL LAB HEMETOLOGY METHOD 05/19/2024 4:33 PM [facility] Immature Granulocytes Absolute 0.21(H) 0.00 - 0.03 K/mcL LAB HEMETOLOGY METHOD 05/19/2024 4:33 PM [facility] Blood Venous blood specimen / Unknown Venipuncture / Unknown 05/19/2024 4:10 PM EST 05/19/2024 4:25 PM EST Emily iSngh LAB BLOOD ORDERABLES Berenice l Result Performing Organization Address [facility]/ZIP Co de Phone Number [facility] [address] [place] [address], [place] [phone] * B-type natriuretic peptide (05/19/2024 4:10 PM EST) BNP 40 <=100 pcg/mL LAB CHEMISTRY METHOD 05/19/2024 5:07 PM EST [facility] Blood Venous blood specimen / Unknown Venipuncture / Unknown 05/19/2024 4:10 PM EST 05/19/2024 4:25 PM EST Emily Singh LAB BLOOD ORDERABLES Berenice l Result Performing Organization Address [facility] Co de Phone Number [facility] [address] [place] [address], * Magnesium (05/19/2024 4:10 PM EST) Magnesium 2.1 1.9 - 2.6 mg/dL LAB CHEMISTRY METHOD 05/19/2024 4:59 PM EST [facility] Blood Venous blood specimen / Unknown Venipuncture / Unknown 05/19/2024 4:10 PM EST 05/19/2024 4:25 PM EST Emily Singh LAB BLOOD ORDERABLES Berenice l Result Performing Organization Address [facility]/ZIP Co de Phone Number [facility] [address] [place] [address], [place] [phone] * (ABNORMAL) Lipase (05/19/2024 4:10 PM EST) Lipase 76(H) 13 - 75 unit/L LAB CHEMISTRY METHOD 05/19/2024 4:59 PM EST [facility] Blood Venous blood specimen / Unknown Venipuncture / Unknown 05/19/2024 4:10 PM EST 05/19/2024 4:25 PM EST us Emily Singh DO LAB BLOOD ORDERABLES Berenice l Result [facility] [address] [place] [address], [place] [phone] * (ABNORMAL) Comprehensive metabolic panel (05/19/2024 4:10 PM EST) Sodium 134 133 - 145 mmol/L LAB CHEMISTRY METHOD 05/19/2024 5:00 PM [facility] Potassium 3.8 3.5 - 5.5 mmol/L LAB CHEMISTRY METHOD 05/19/2024 5:00 PM [facility] Chloride 99 96 - 110 mmol/L LAB CHEMISTRY METHOD 05/19/2024 5:00 PM [facility] CO2 26 21 - 32 mmol/L LAB CHEMISTRY METHOD 05/19/2024 5:00 PM [facility] Anion Gap 9 3 - 11 LAB CHEMISTRY METHOD 05/19/2024 5:00 PM [facility] Glucose 170(H) 70 - 100 mg/dL LAB CHEMISTRY METHOD 05/19/2024 5:00 PM [facility] BUN 19 5 - 25 mg/dL LAB CHEMISTRY METHOD 05/19/2024 5:00 PM [facility] Creatinine 0.67(L) 0.70 - 1.30 mg/dL LAB CHEMISTRY METHOD 05/19/2024 5:00 PM [facility] eGFR 103 >=60 mL/min/1. 73m2 LAB CHEMISTRY METHOD 05/19/2024 5:00 PM [facility] Comment:Calculation based on the??Chronic Kidney Disease Epidemiology Collaboration (CKD-EPI) equation refit??without adjustment for race. BUN/Creatinine Ratio 28.4 LAB CHEMISTRY METHOD 05/19/2024 5:00 PM [facility] Calcium 8.5 8.5 - 10.5 mg/dL LAB CHEMISTRY METHOD 05/19/2024 5:00 PM [facility] AST (SGOT) 25 10 - 42 unit/L LAB CHEMISTRY METHOD 05/19/2024 5:00 PM [facility] ALT (SGPT) 19 10 - 60 unit/L LAB CHEMISTRY METHOD 05/19/2024 5:00 PM [facility] Alkaline Phosphatase 153(H) 42 - 121 unit/L LAB CHEMISTRY METHOD 05/19/2024 5:00 PM [facility] Total Protein 6.0 6.0 - 8.0 g/dL LAB CHEMISTRY METHOD 05/19/2024 5:00 PM [facility] Albumin 2.4(L) 3.2 - 5.0 g/dL LAB CHEMISTRY METHOD 05/19/2024 5:00 PM [facility] Total Bilirubin 3.1(H) 0.0 - 1.4 mg/dL LAB CHEMISTRY METHOD 05/19/2024 5:00 PM [facility] Blood Venous blood specimen / Unknown Venipuncture / Unknown 05/19/2024 4:10 PM EST 05/19/2024 4:25 PM EST us Emily Singh DO LAB BLOOD ORDERABLES Berenice l Result [facility] [address] [place] [address], * Troponin I high sensitivity (05/19/2024 4:10 PM EST) High Sensitivity Troponin I 7 <=79 ng/L LAB CHEMISTRY METHOD 05/19/2024 5:02 PM EST [facility] Blood Venous blood specimen / Unknown Venipuncture / Unknown 05/19/2024 4:10 PM EST 05/19/2024 4:25 PM EST Narrative [facility] ([facility] - 05/19/2024 5:02 PM EST High levels of biotin in samples may falsely decrease hsTroponin values. ??Use caution when interpreting hsTroponin results in patients taking biotin who exhibit renal impairment (eGFR <60) or in patients taking more than 20 mg/day of biotin. Emily Colby Stalin Francisco DO LAB BLOOD ORDERABLES [facility]renice l Result [facility] [address] [place] [address], * ECG-Annotated (05/19/2024) Provider Onbase ECG ORDERABLES Final Result * ECG-Annotated (05/19/2024) Provider Onbase MD ECG ORDERABLES Final Result documented in this encounter Visit Diagnoses Diagnosis Severe sepsis (CMS/HCC)- Primary Urinary tract infection without hematuria, site unspecified Bilateral leg edema Edema Hepatic cirrhosis, unspecified hepatic cirrhosis type, unspecified whether ascites present (CMS/HCC) Cellulitis of left leg Severe sepsis (CMS/HCC) documented in this encounter Admitting Diagnoses Diagnosis Severe sepsis (CMS/HCC) documented in this encounter Administered Medications Inactive Administered Medications - up to 3 most recent administrations Medication Order MAR Action Action Date Dose Rate Site albumin human 25 % infusion 25 g 25 g, intravenous, Once, On Fri05/19/24 at 1930, For 1 dose, FOR HYPOVOLEMIC SHOCK: Infuse 5% Albumin as rapidly as tolerated (500 mL over 1 - 2 hr) or (250 mL over 30 - 60 min), as blood volume approaches normal then infusion rate should not exceed 1 mL/min. Infusing too rapidly may cause vascular overload which may lead to pulmonary edema or cardiac failure. ROUTINE REPLACEMENT: (non-critical) Infuse 5% or 25% Albumin @ 100 mL/hr for routine albumin replacement in non-critical situations. Faster infusion rates are appropriate for hypovolemic shock (see above). ADMINISTRATION NOTE: A 15-micron filter is only required for Buminate; however, filters are NOT required for all other brands (Albuked, Albuminar, Albuminex, AlbuRx, Albutein, Flexbumin, Kedbumin, Plasbumin). Do not exceed 1 mL/minute in patients with normal plasma volume; 3 mL/minute in patients with hypoproteinemia., Indications: elevated lactic, hx cirrhosisIndications:elevated lactic, hx cirrhosis New Bag 05/19/2024 10:15 PM EST 25 g aspirin EC tablet 81 mg 81 mg, oral, Daily, First dose on Fri05/20/24 at 0900, Do not crush, chew, or split. Given 05/25/2024 8:57 AM EST 81 mg Given 05/24/2024 8:50 AM EST 81 mg Given 05/23/2024 8:45 AM EST 81 mg atorvastatin (LIPITOR) tablet 20 mg 20 mg, oral, Nightly, First dose on Fri05/19/24 at 2100 Given 05/24/2024 9:04 PM EST 20 mg Given 05/23/2024 8:47 PM EST 20 mg Given 05/22/2024 8:10 PM EST 20 mg cefTRIAXone (ROCEPHIN) 1 g in sterile water 10 mL IV syringe 1 g, intravenous, at 200 mL/hr, Administer over 3 Minutes, Once, On Fri05/19/24 at 1718, For 1 dose, Do not administer simultaneously with any calcium containing solutions via a Y-site in any patient., Indication: Skin/Soft Tissue Given 05/19/2024 5:31 PM EST 1 g 200 mL/hr cefTRIAXone (ROCEPHIN) 2 g in sterile water 20 mL IV syringe 2 g, intravenous, at 400 mL/hr, Administer over 3 Minutes, Every 24 hours, First dose on Fri05/21/24 at 1400, For 10 days, Do not administer simultaneously with any calcium containing solutions via a Y-site in any patient., Indication: Urinary Tract/Genitourinary Given 05/22/2024 2:55 PM EST 2 g 400 mL/hr Given 05/21/2024 2:44 PM EST 2 g 400 mL/hr cefTRIAXone (ROCEPHIN) 2 g in sterile water 20 mL IV syringe 2 g, intravenous, at 400 mL/hr, Administer over 3 Minutes, Every 24 hours, First dose on Fri05/23/24 at 1530, For 2 days, Do not administer simultaneously with any calcium containing solutions via a Y-site in any patient., Indication: Urinary Tract/Genitourinary Given 05/24/2024 2:42 PM EST 2 g 400 mL/hr Given 05/23/2024 4:33 PM EST 2 g 400 mL/hr doxycycline (VIBRAMYCIN) 100 mg in sodium chloride 0.9 % 100 mL IVPB 100 mg, intravenous, at 100 mL/hr, Administer over 60 Minutes, Every 12 hours, First dose on Fri05/23/24 at 1530, For 5 days, Indication: Skin/Soft Tissue New Bag 05/25/2024 2:59 PM EST 100 mg 100 mL/hr New Bag 05/25/2024 4:05 AM EST 100 mg 100 mL/hr New Bag 05/24/2024 2:42 PM EST 100 mg 100 mL/hr enoxaparin (LOVENOX) injection 120 mg 120 mg, subcutaneous, Every 12 hours scheduled, First dose (after last modification) on Fri05/21/24 at 2100, Indication: VTE/PE Prophylaxis, VTE/PE Treatment Given 05/25/2024 8:57 AM EST 120 mg Right Upper Arm (Pavel k) Given 05/24/2024 9:04 PM EST 120 mg Le ft Lower Abdomen Given 05/24/2024 8:50 AM EST 120 mg Le ft Lower Abdomen enoxaparin (LOVENOX) injection 60 mg 60 mg, subcutaneous, Every 12 hours scheduled, First dose (after last reorder) on Fri05/19/24 at 2100, Indication: VTE/PE Prophylaxis Given 05/21/2024 9:47 AM EST 60 mg Right Lower Abdomen Given 05/20/2024 8:09 PM EST 60 mg Ri ght Lower Abdomen Given 05/20/2024 9:46 AM EST 60 mg Le ft Lower Abdomen furosemide (LASIX) 100 mg in 0.9 % sodium chloride 50 mL infusion 10 mg/hr (5 mL/hr), intravenous, Continuous, Starting on Fri05/21/24 at 1000, CONTACT PRESCRIBER: If urine output LESS than 30 mL/hr or GREATER than 100 mL/hr over 4 hours. New Bag 05/22/2024 8:10 PM EST 10 mg/hr 5 mL/hr New Bag 05/22/2024 12:13 PM EST 10 mg/hr 5 mL/hr New Bag 05/21/2024 11:12 PM EST 10 mg/hr 5 mL/hr furosemide (LASIX) injection 40 mg 40 mg, intravenous, Once, On Fri05/19/24 at 1603, For 1 dose Given 05/19/2024 4:37 PM EST 40 mg furosemide (LASIX) injection 40 mg 40 mg, intravenous, 2 times daily before meals, First dose on Fri05/20/24 at 1800 Given 05/21/2024 6:32 AM EST 40 mg Given 05/20/2024 5:59 PM EST 40 mg furosemide (LASIX) injection 40 mg 40 mg, intravenous, Every 6 hours, First dose on Fri05/23/24 at 1500 Given 05/25/2024 3:14 PM EST 40 mg Given 05/25/2024 10:06 AM EST 40 mg Given 05/25/2024 4:05 AM EST 40 mg furosemide (LASIX) tablet 40 mg 40 mg, oral, Daily, First dose on Fri05/20/24 at 0900, On hold since Fri05/20/2024 at 1738 until manually unheld Given 05/20/2024 9:46 AM EST 40 mg magnesium sulfate 2 gram/50 mL (4 %) IVPB 2 g 2 g, intravenous, at 25 mL/hr, Administer over 2 Hours, Once, On Fri05/21/24 at 0845, For 1 dose New Bag 05/21/2024 9:46 AM EST 2 g 25 mL/hr ondansetron (PF) (ZOFRAN) injection 4 mg 4 mg, intravenous, Every 8 hours PRN, vomiting, nausea, Starting on Fri05/19/24 at 1744, -ONLY give IV if patient is unable to take orally. -If inadequate response within 30 minutes, proceed to next-line agent or contact provider if no further options ordered. ondansetron ODT (ZOFRAN-ODT) disintegrating tablet 4 mg 4 mg, oral, Every 8 hours PRN, vomiting, nausea, Starting on Fri05/19/24 at 1744, -Give IV if patient is unable to take orally. -If inadequate response within 30 minutes, proceed to next-line agent or contact provider if no further options ordered. For ODT tablets: -Do not remove from blister pack until just before administering. -Patient should allow tablet to dissolve on tongue. oxyCODONE (ROXICODONE) immediate release tablet 10 mg 10 mg, oral, Every 4 hours PRN, severe pain, Starting on Fri05/19/24 at 2015 Given 05/25/2024 3:14 PM EST 10 mg Given 05/25/2024 8:58 AM EST 10 mg Given 05/25/2024 1:31 AM EST 10 mg piperacillin-tazobactam (ZOSYN) 3.375 g in sodium chloride 0.9 % 100 mL IVPB 3.375 g, intravenous, at 200 mL/hr, Administer over 0.5 Hours, Every 6 hours, First dose (after last reorder) on Fri05/20/24 at 0000, For 7 days, Do not administer through same line as lactated ringer? s fluids (LR), Indication: Skin/Soft Tissue, Urinary Tract/Genitourinary New Bag 05/21/2024 12:40 PM EST 3.375 g 200 mL/hr New Bag 05/21/2024 6:33 AM EST 3.375 g 200 mL/hr New Bag 05/20/2024 11:59 PM EST 3.375 g 200 mL/hr piperacillin-tazobactam (ZOSYN) 4.5 g in sodium chloride 0.9 % 100 mL IVPB 4.5 g, intravenous, at 200 mL/hr, Administer over 0.5 Hours, Once, On Fri05/19/24 at 1736, For 1 dose, Do not administer through same line as lactated ringer? s fluids (LR), Indication: Skin/Soft Tissue, Urinary Tract/Genitourinary New Bag 05/19/2024 6:16 PM EST 4.5 g 200 mL/hr potassium chloride (KLOR-CON M20) CR tablet 40 mEq 40 mEq, oral, Once, On Fri05/20/24 at 1800, For 1 dose, Tablet may be swallowed whole (do not crush/chew/suck on) OR broken in half and each half swallowed separately OR dissolved (whole tablet) in ~4 ounces of water (allow ~2 minutes to dissolve, stir well and administer immediately). Given 05/20/2024 5:59 PM EST 40 mEq potassium chloride (KLOR-CON M20) CR tablet 40 mEq 40 mEq, oral, Once, On Fri05/21/24 at 0530, For 1 dose, Tablet may be swallowed whole (do not crush/chew/suck on) OR broken in half and each half swallowed separately OR dissolved (whole tablet) in ~4 ounces of water (allow ~2 minutes to dissolve, stir well and administer immediately). Given 05/21/2024 5:27 AM EST 40 mEq potassium chloride (KLOR-CON M20) CR tablet 40 mEq 40 mEq, oral, Once, On Fri05/21/24 at 0845, For 1 dose, Tablet may be swallowed whole (do not crush/chew/suck on) OR broken in half and each half swallowed separately OR dissolved (whole tablet) in ~4 ounces of water (allow ~2 minutes to dissolve, stir well and administer immediately). Given 05/21/2024 9:46 AM EST 40 mEq potassium chloride (KLOR-CON M20) CR tablet 40 mEq 40 mEq, oral, Once, On Fri05/21/24 at 1230, For 1 dose, Tablet may be swallowed whole (do not crush/chew/suck on) OR broken in half and each half swallowed separately OR dissolved (whole tablet) in ~4 ounces of water (allow ~2 minutes to dissolve, stir well and administer immediately). Given 05/21/2024 12:40 PM EST 40 mEq potassium chloride (KLOR-CON M20) CR tablet 40 mEq 40 mEq, oral, Once, On Fri05/24/24 at 0915, For 1 dose, Tablet may be swallowed whole (do not crush/chew/suck on) OR broken in half and each half swallowed separately OR dissolved (whole tablet) in ~4 ounces of water (allow ~2 minutes to dissolve, stir well and administer immediately). Given 05/24/2024 9:02 AM EST 40 mEq potassium chloride (KLOR-CON M20) CR tablet 40 mEq 40 mEq, oral, Once, On Fri05/25/24 at 0900, For 1 dose, Tablet may be swallowed whole (do not crush/chew/suck on) OR broken in half and each half swallowed separately OR dissolved (whole tablet) in ~4 ounces of water (allow ~2 minutes to dissolve, stir well and administer immediately). Given 05/25/2024 8:57 AM EST 40 mEq spironolactone (ALDACTONE) tablet 100 mg 100 mg, oral, Daily, First dose on Fri05/20/24 at 0900, HAZARDOUS Drug Precautions - Low Risk (Category A/NIOSH Group 3) Reproductive Risk Only: - Single pair of ASTM standard D6978 certified chemotherapy gloves - Eye protection (goggles or face shield) required only with a potential for facial contact (i.e. concern for spitting or vomiting of the dose during or after administration) - Staff at reproductive risk (actively trying to conceive, or may be become , and ): chemo certified gown and an N95 respirator required when crushing meds (crushing of tabs allowed only in closed pouches) or opening of capsules only for allowable dosage forms Given 05/25/2024 8:57 AM EST 100 mg Given 05/24/2024 8:51 AM EST 100 mg Given 05/23/2024 8:45 AM EST 100 mg vancomycin (VANCOCIN) IVPB 1,500 mg in 0.9 % sodium chloride 500 mL - CNR 1,500 mg, intravenous, at 333.3 mL/hr, Administer over 90 Minutes, Once, On Fri05/19/24 at 1736, For 1 dose, Indication: Skin/Soft Tissue New Bag 05/19/2024 7:39 PM EST 1,500 mg 333.3 mL/hr vancomycin (VANCOCIN) IVPB 1,500 mg in 0.9 % sodium chloride 500 mL - CNR 1,500 mg, intravenous, at 333.3 mL/hr, Administer over 90 Minutes, Every 8 hours, First dose on Fri05/20/24 at 0400, For 7 days, Indication: Sepsis, Urinary Tract/Genitourinary, Skin/Soft Tissue, Suspected source: skin/soft tissue, UTI New Bag 05/22/2024 8:09 PM EST 1,500 mg 333.3 mL/hr New Bag 05/22/2024 12:04 PM EST 1,500 mg 333.3 mL/hr New Bag 05/22/2024 4:45 AM EST 1,500 mg 333.3 mL/hr zolpidem (AMBIEN) tablet 10 mg 10 mg, oral, Nightly PRN, sleep, Starting on Fri05/19/24 at 2014 Given 05/24/2024 9:05 PM EST 10 mg Given 05/23/2024 8:48 PM EST 10 mg Given 05/22/2024 8:10 PM EST 10 mg documented in this encounter Discontinued Medications Medication Sig Discontinue Reason Start Date End Da te spironolactone (ALDACTONE) 25 mg tablet Take 2 tablets (50 mg total) by mouth 1 (one) time each day. Discontinued by another clinician 03/01/2024 05/19/2024 spironolactone (ALDACTONE) 100 mg tablet Take 1 tablet (100 mg total) by mouth 1 (one) time each day. 04/08/2024 05/25/2024 furosemide (LASIX) 40 mg tablet Take 1 tablet (40 mg total) by mouth 1 (one) time each day. Stop Taking at Discharge 03/01/2024 05/25/2024 documented as of this encounter Active and Recently Administered Medications Times are shown in EST. Scheduled Medication Order 05/23/2024 05/24/2024 05/25/2024 aspirin EC tablet 81 mg 81 mg, oral, Daily, First dose on Fri05/20/24 at 0900, Do not crush, chew, or split. 0845 (Given - Provider: Jhonny Flores RN) 0850 (Given - Provider: Cammie Huber, VIVIAN) 0857 (Given - Provider: Cecily Yang, VIVIAN) atorvastatin (LIPITOR) tablet 20 mg 20 mg, oral, Nightly, First dose on Fri05/19/24 at 2100 2047 (Given - Provider: Adina Wu, VIVIAN) 2104 (Given - Provider: Lucy Cedillo, VIVIAN) cefTRIAXone (ROCEPHIN) 2 g in sterile water 20 mL IV syringe (COMPLETED) 2 g, intravenous, at 400 mL/hr, Administer over 3 Minutes, Every 24 hours, First dose on Fri05/23/24 at 1530, For 2 days, Do not administer simultaneously with any calcium containing solutions via a Y-site in any patient., Indication: Urinary Tract/Genitourinary 1633 (Given - Provider: Jhonny Flores RN) 1442 (Given - Provider: Cammie Huber RN) doxycycline (VIBRAMYCIN) 100 mg in sodium chloride 0.9 % 100 mL IVPB 100 mg, intravenous, at 100 mL/hr, Administer over 60 Minutes, Every 12 hours, First dose on Fri05/23/24 at 1530, For 5 days, Indication: Skin/Soft Tissue 1629 (New Bag - Provider: Jhonny Flores RN)1745 (Stopped - Provider: Jhonny Flores RN) 0231 (New Bag - Provider: Adina Wu RN)0335 (Stopped - Provider: Adina Wu RN)1442 (New Bag - Provider: Cammie Huber RN)1542 (Stopped - Provider: Cammie Huber RN) 0405 (New Bag - Provider: Lucy Cedillo RN)0526 (Stopped - Provider: Lucy Cedillo RN)1459 (New Bag - Provider: Cecily Yang RN)1600 (Stopped - Provider: Cecily Yang RN) enoxaparin (LOVENOX) injection 120 mg 120 mg, subcutaneous, Every 12 hours scheduled, First dose (after last modification) on Fri05/21/24 at 2100, Indication: VTE/PE Prophylaxis, VTE/PE Treatment 0845 (Given - Provider: Jhonny Flores RN)2047 (Given - Provider: Adina Wu RN) 0850 (Given - Provider: Cammie Huber RN)2104 (Given - Provider: Lucy Cedillo RN) 0857 (Given - Provider: Cecily Yang RN) furosemide (LASIX) injection 40 mg 40 mg, intravenous, Every 6 hours, First dose on Fri05/23/24 at 1500 1634 (Given - Provider: Jhonny Flores RN)2047 (Given - Provider: Adina Wu RN) 0221 (Given - Provider: Adina Wu RN)0850 (Given - Provider: Cammie Huber RN)1442 (Given - Provider: Cammie Huber RN)2105 (Given - Provider: Lucy Cedillo RN) 0405 (Given - Provider: Lucy Cedillo RN)1006 (Given - Provider: Cecily Yang RN)1514 (Given - Provider: Cecily Yang RN) potassium chloride (KLOR-CON M20) CR tablet 40 mEq (COMPLETED) 40 mEq, oral, Once, On Fri05/24/24 at 0915, For 1 dose, Tablet may be swallowed whole (do not crush/chew/suck on) OR broken in half and each half swallowed separately OR dissolved (whole tablet) in ~4 ounces of water (allow ~2 minutes to dissolve, stir well and administer immediately). 09 (Given - Provider: Cammie Huber RN) potassium chloride (KLOR-CON M20) CR tablet 40 mEq (COMPLETED) 40 mEq, oral, Once, On Fri05/25/24 at 0900, For 1 dose, Tablet may be swallowed whole (do not crush/chew/suck on) OR broken in half and each half swallowed separately OR dissolved (whole tablet) in ~4 ounces of water (allow ~2 minutes to dissolve, stir well and administer immediately). 0857 (Given - Provider: Cecily Yang RN) spironolactone (ALDACTONE) tablet 100 mg 100 mg, oral, Daily, First dose on Fri05/20/24 at 0900, HAZARDOUS Drug Precautions - Low Risk (Category A/NIOSH Group 3) Reproductive Risk Only: - Single pair of ASTM standard D6978 certified chemotherapy gloves - Eye protection (goggles or face shield) required only with a potential for facial contact (i.e. concern for spitting or vomiting of the dose during or after administration) - Staff at reproductive risk (actively trying to conceive, or may be become , and ): chemo certified gown and an N95 respirator required when crushing meds (crushing of tabs allowed only in closed pouches) or opening of capsules only for allowable dosage forms 0845 (Given - Provider: Jhonny Flores RN) 0851 (Given - Provider: Cammie Huber RN) 0857 (Given - Provider: Cecily Yang RN) PRN Medication Order 05/23/2024 05/24/2024 05/25/2024 albuterol 2.5 mg /3 mL (0.083 %) nebulizer solution 2.5 mg 2.5 mg, nebulization, Every 6 hours PRN, wheezing, Starting on Fri05/19/24 at 2014 naloxone (NARCAN) injection 0.04 mg 0.04 mg, intravenous, As needed, opioid reversal, Starting on Fri05/19/24 at 2014, For 10 doses, Give IVP every 2 minutes up to 10 doses total as needed for opioid reversal ondansetron (PF) (ZOFRAN) injection 4 mg(Linked Group 1) 4 mg, intravenous, Every 8 hours PRN, vomiting, nausea, Starting on Fri05/19/24 at 1744, -ONLY give IV if patient is unable to take orally. -If inadequate response within 30 minutes, proceed to next-line agent or contact provider if no further options ordered. ondansetron ODT (ZOFRAN-ODT) disintegrating tablet 4 mg(Linked Group 1) 4 mg, oral, Every 8 hours PRN, vomiting, nausea, Starting on Fri05/19/24 at 1744, -Give IV if patient is unable to take orally. -If inadequate response within 30 minutes, proceed to next-line agent or contact provider if no further options ordered. For ODT tablets: -Do not remove from blister pack until just before administering. -Patient should allow tablet to dissolve on tongue. oxyCODONE (ROXICODONE) immediate release tablet 10 mg 10 mg, oral, Every 4 hours PRN, severe pain, Starting on Fri05/19/24 at 2014 0845 (Given - Provider: Jhonny Flores RN)1839 (Given - Provider: Jhonny Flores RN)2206 (Given - Provider: Adina Wu RN) 0221 (Given - Provider: Adina Wu RN)0851 (Given - Provider: Cammie Huber RN)1442 (Given - Provider: Cammie Huber, VIVIAN)2104 (Given - Provider: Lucy Cedillo RN) 0131 (Given - Provider: Lucy Cedillo RN)0858 (Given - Provider: Cecily Yang, VIVIAN)1514 (Given - Provider: Cecily Yang, VIVIAN) zolpidem (AMBIEN) tablet 10 mg 10 mg, oral, Nightly PRN, sleep, Starting on Fri05/19/24 at 2014 2047 (Given - Provider: Adina Wu, RN) 2104 (Given - Provider: Lucy Cedillo, VIVIAN) Linked Groups Order Group 1: ondansetron ODT (ZOFRAN-ODT) disintegrating tablet 4 mgJump to med 4 mg, oral, Every 8 hours PRN, vomiting, nausea, Starting on Fri05/19/24 at 1744, -Give IV if patient is unable to take orally. -If inadequate response within 30 minutes, proceed to next-line agent or contact provider if no further options ordered. For ODT tablets: -Do not remove from blister pack until just before administering. -Patient should allow tablet to dissolve on tongue. Or ondansetron (PF) (ZOFRAN) injection 4 mgJump to med 4 mg, intravenous, Every 8 hours PRN, vomiting, nausea, Starting on Fri05/19/24 at 1744, -ONLY give IV if patient is unable to take orally. -If inadequate response within 30 minutes, proceed to next-line agent or contact provider if no further options ordered. documented in this encounter Orders Medications Ordered That Jaciel ht Not Have Been Administered Count Last Ordered Date First Ordered Date ceFAZolin (ANCEF) 2 g in regino rile water 20 mL IV syringe 1 05/23/2024 vancomycin (VANCOCIN) IVPB 2 ,000 mg in 0.9 % sodium chloride 500 mL - CNR 1 05/23/2024 sodium chloride 0.9 % infusi on - ADS Override Pull 2 05/20/2024 05/19/2024 albuterol 2.5 mg /3 mL (0.08 3 %) nebulizer solution 2.5 mg 1 05/19/2024 enoxaparin (LOVENOX) injection 40 mg 04/22 naloxone (NARCAN) injection 0.04 mg 1 05/19 ondansetron (PF) (ZOFRAN) injection 4 mg 1 05/19/2024 ondansetron ODT (ZOFRAN-ODT) disintegrating tablet 4 mg 1 05/19/2024 vancomycin (VANCOCIN) IVPB 1 ,500 mg in 0.9 % sodium chloride 500 mL - CNR 1 05/19/2024 EKG Orders Without Results Count Last Ordered D ate First Ordered Date ECG 12-LEAD 1 05/19/2024 Nursing Count Last Ordered Date First Orde red Date INSERT INDWELLING CATHETER 1 05/19/2024 Consult Count Last Ordered Date First Orde red Date IP CONSULT TO INFECTIOUS DISEASES 1 025 IP CONSULT TO UROLOGY 1 05/21/2024 WOUND OSTOMY EVAL AND TREAT 2 05/20/2024 Respiratory Care Count Last Ordered Date First Ordered Date CPAP NIV 5 05/23/2024 05/19/2024 Admission Count Last Ordered Date First Orde red Date ADMIT TO INPATIENT 1 05/19/2024 Transfer Count Last Ordered Date First Orde red Date ED TO FLOOR BED REQUEST 1 05/19/2024 Discharge Count Last Ordered Date First Orde red Date DISCHARGE PATIENT 1 05/25/2024 documented in this encounter Care Teams Integration Solution Architect Relationship Specialty Start Date End Date Dalia Harmon PA [address] [place] [address], [address] [place] [address] PCP - General 05/10/24 documented as of this encounter
--- OUTSIDE RECORDS SUMMARY | 2024-06-23 12:22 | XMS_ITS | Encounter Summary ---
Author Organization [facility] Address [address] [place] [phone] Care Team Providers Care Med Peds Name Role Phone Dalia Harmon Primary Care Provider [phone] Reason for Visit * Reason Onset Date Comments TESTING 06/03/2024 Encounter Details Date Type Department Care Team (Late st Contact Info) Description 06/03/2024 Telephone Gastroenterology - [place] [address] [place] [address] Han Sloan DO [address] [place] [address] TESTING Social History Tobacco Use Types Packs/Day Years [...] as of this encounter Progress Notes * Hiwot Brewer - 06/03/2024 10:17 AM EST We received the order you placed for this patient to have an ECHOCARDIOGRAM and the appointment is scheduled for 08/12/2024. The order has an associated diagnosis of 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) [K70.31]. This diagnosis is not considered to support medical necessity for the test ordered according to insurance guidelines. Please review to see if there is another diagnosis, including signs/symptoms, that is appropriate to be associated with this test and update the associated diagnosis on the current o rder. If there is not a covered diagnosis associated with this test within 24hrs of the scheduled appointment, the patient will be notified they will need to sign a waiver accepting responsibility for payment if their insurance denies it. This may result in a cancellation of the test. Thank you, [facility] Scheduling documented in this encounter Plan of Treatment Upcoming Encounters Date Type Department Care Team (Latest Contact Info) Description 06/24/2024 11:20 AM EST Office Visit Gastroenterology - [place] [address] [facility] [address] [facility] [address] [place] [phone] Han Sloan DO [address] [facility] [address] [place] [address] 07/06/2024 1:00 PM EDT Appointment [facility] Interventional Radiology [address] [place] [phone] 08/12/2024 10:30 AM EDT Ancillary Procedure [facility] - [address] [place] [phone] documented as of this encounter Visit Diagnoses Not on filedocumented in this encounter Care Teams Med Peds Relationship Specialty Start Date End Date Dalia Hamron PA [address] [facility], [address] [place] [address] PCP - General 05/10/24 documented as of this encounter
--- OUTSIDE RECORDS SUMMARY | 2024-06-23 12:22 | XMS_ITS | Encounter Summary ---
Author Organization [facility] Address [id number] [place] [id number] Care Team Providers Care Professor Of Law Name Role Phone Dalia Harmon Primary Care Provider [phone] Reason for Visit * Reason Onset Date Comments provider call back 05/24/2024 Encounter Details Date Type Department Care Team (Late st Contact Info) Description 05/24/2024 Telephone [facility]astroenterology - [facility] [address] [place] [address] Han Sloan DO [address] [place] [address] provider call back Social History Tobacco Use [...] as of this encounter Progress Notes * Tesha Swartz - 05/24/2024 9:24 AM EST Patient calling to inform Dr. Sloan that he is in the hospital [facility] room 408 for an emergency paracentesis he has been there for 1 week documented in this encounter Plan of Treatment Upcoming Encounters Date Type Department Care Team (Latest Contact Info) Description 06/24/2024 11:20 AM EST Office Visit Gastroenterology - [facility] [address] [facility] [address] [facility] [address] [place] [phone] Han Sloan DO [address] [facility] [address] [place] [address] 07/06/2024 1:00 PM EDT Appointment [facility] Interventional Radiology [address] [place] [phone] 08/12/2024 10:30 AM EDT Ancillary Procedure [facility] - [address] [place] [phone] documented as of this encounter Visit Diagnoses Not on filedocumented in this encounter Care Teams Professor Of Law Relationship Specialty Start Date End Date Dalia Harmon PA [address] [place] [address], [address] [place] [address] PCP - General 05/10/24 documented as of this encounter
--- OUTSIDE RECORDS SUMMARY | 2024-06-23 12:22 | XMS_ITS | Encounter Summary ---
Author Organization [facility] Address [id number] [place] [phone] Care Team Providers Care Supervisor Advertising Dispatch Clerks Name Role Phone Dalia Harmon Primary Care Provider [phone] Encounter Details Date Type Department Care Team (Late st Contact Info) Description 05/26/2024 Lab Requisition [facility] - Main Lab [address] [facility] [place] [phone] Gerry Barksdale [address] [facility] [address] [place] [phone] Weakness; Urinary tract infection, site not specified Social History Tobacco Use Types Packs/Day Years [...] 11:20 AM EST Office Visit Gastroenterology - [place] [address] [place] [phone] Han Sloan DO 175 [facility] [address] [place] [address] 07/06/2024 1:00 PM EDT Appointment [facility] Interventional Radiology [address] [place] [phone] 08/12/2024 10:30 AM EDT Ancillary Procedure [facility] - [address] [place] [phone] documented as of this encounter Procedures Procedure Name Priority Date/Time Associated Diagnosis Comments COMPLETE BLOOD COUNT Routine 05/26/2024 6:59 AM EST Weakness Urinary tract infection, site not specified THYROID STIMULATING HORMONE Routine 05/26/2024 6:59 AM EST Weakness Urinary tract infection, site not specified FOLATE Routine 05/26/2024 6:59 AM EST Weakness Urinary tract infection, site not specified VITAMIN B12 Routine 05/26/2024 6:59 AM EST Weakness Urinary tract infection, site not specified COMPREHENSIVE METABOLIC PANEL Routine 05/26/2024 6:59 AM EST Weakness Urinary tract infection, site not specified documented in this encounter Results * (ABNORMAL) Vitamin B12 (05/26/2024 6:59 AM EST) Vitamin B-12 1,309(H) 250 - 900 pcg/mL LAB CHEMISTRY METHOD 05/26/2024 1:39 PM EST [facility] Blood Venous blood specimen / Unknown Venipuncture / Unknown 05/26/2024 6:59 AM EST 05/26/2024 10:29 AM EST us Gerry Barksdale LAB BLOOD ORDERABLES Final Resul t [facility] [address] [place] [address], * Folate (05/26/2024 6:59 AM EST) Folate 4.3 2.8 - 17.0 ng/ml LAB CHEMISTRY METHOD 05/26/2024 1:39 PM EST [facility] Blood Venous blood specimen / Unknown Venipuncture / Unknown 05/26/2024 6:59 AM EST 05/26/2024 10:29 AM EST [facility] LAB BLOOD ORDERABLES Final Resul t Performing Organization Address [facility] Co de Phone Number [facility] [address] [place] [address], [place] [phone] * (ABNORMAL) Thyroid stimulating hormone (05/26/2024 6:59 AM EST) Pathologist [facility] TSH 5.20(H) 0.40 - 4.00 mcIU/mL LAB CHEMISTRY METHOD 05/26/2024 1:24 PM EST [facility] Blood Venous blood specimen / Unknown Venipuncture / Unknown 05/26/2024 6:59 AM EST 05/26/2024 10:29 AM EST Gerry Chavezcord LAB BLOOD ORDERABLES Final Resul t Performing Organization Address [facility] de Phone Number [facility] [address] [place] [address], [place] [phone] * (ABNORMAL) Comprehensive metabolic panel (05/26/2024 6:59 AM EST) Pathologist [facility] Sodium 133 133 - 145 mmol/L LAB CHEMISTRY METHOD 05/26/2024 1:16 PM EST [facility] Potassium 3.6 3.5 - 5.5 mmol/L LAB CHEMISTRY METHOD 05/26/2024 1:16 PM [facility] Chloride 95(L) 96 - 110 mmol/L LAB CHEMISTRY METHOD 05/26/2024 1:16 PM EST [facility] CO2 31 21 - 32 mmol/L LAB CHEMISTRY METHOD 05/26/2024 1:16 PM [facility] Anion Gap 7 3 - 11 LAB CHEMISTRY METHOD 05/26/2024 1:16 PM [facility] Glucose 116(H) 70 - 100 mg/dL LAB CHEMISTRY METHOD 05/26/2024 1:16 PM [facility] BUN 15 5 - 25 mg/dL LAB CHEMISTRY METHOD 05/26/2024 1:16 PM [facility] Creatinine 0.52(L) 0.70 - 1.30 mg/dL LAB CHEMISTRY METHOD 05/26/2024 1:16 PM [facility] eGFR 111 >=60 mL/min/1. 73m2 LAB CHEMISTRY METHOD 05/26/2024 1:16 PM [facility] Comment:Calculation based on the??Chronic Kidney Disease Epidemiology Collaboration (CKD-EPI) equation refit??without adjustment for race. BUN/Creatinine Ratio 28.8 LAB CHEMISTRY METHOD 05/26/2024 1:16 PM [facility] Calcium 8.2(L) 8.5 - 10.5 mg/dL LAB CHEMISTRY METHOD 05/26/2024 1:16 PM [facility] AST (SGOT) 27 10 - 42 unit/L LAB CHEMISTRY METHOD 05/26/2024 1:16 PM [facility] ALT (SGPT) 20 10 - 60 unit/L LAB CHEMISTRY METHOD 05/26/2024 1:16 PM [facility] Alkaline Phosphatase 139(H) 42 - 121 unit/L LAB CHEMISTRY METHOD 05/26/2024 1:16 PM [facility] Total Protein 6.0 6.0 - 8.0 g/dL LAB CHEMISTRY METHOD 05/26/2024 1:16 PM [facility] Albumin 2.3(L) 3.2 - 5.0 g/dL LAB CHEMISTRY METHOD 05/26/2024 1:16 PM EST [facility] Total Bilirubin 3.2(H) 0.0 - 1.4 mg/dL LAB CHEMISTRY METHOD 05/26/2024 1:16 PM [facility] Blood Venous blood specimen / Unknown Venipuncture / Unknown 05/26/2024 6:59 AM EST 05/26/2024 10:29 AM EST Gerry Barksdale LAB BLOOD ORDERABLES Final Resul t [facility] [address] [place] [address], * (ABNORMAL) Complete blood count (05/26/2024 6:59 AM EST) WBC 7.6 4.8 - 10.8 K/mcL LAB HEMETOLOGY METHOD 05/26/2024 11:18 AM [facility] RBC 3.50(L) 4.50 - 5.50 M/mcL LAB HEMETOLOGY METHOD 05/26/2024 11:18 AM [facility] Hemoglobin 12.2(L) 13.5 - 17.5 g/dL LAB HEMETOLOGY METHOD 05/26/2024 11:18 AM [facility] Hematocrit 35.5(L) 42.0 - 54.0 % LAB HEMETOLOGY METHOD 05/26/2024 11:18 AM [facility] MCV 100.6(H) 79.0 - 98.0 FL LAB HEMETOLOGY METHOD 05/26/2024 11:18 AM [facility] MCH 34.6(H) 27.0 - 32.0 pcg LAB HEMETOLOGY METHOD 05/26/2024 11:18 AM [facility] MCHC 34.4 32.0 - 37.0 g/dL LAB HEMETOLOGY METHOD 05/26/2024 11:18 AM EST [facility] RDW 15.9(H) 11.0 - 15.0 % LAB HEMETOLOGY METHOD 05/26/2024 11:18 AM EST [facility] Platelets 139 130 - 400 K/mcL LAB HEMETOLOGY METHOD 05/26/2024 11:18 AM EST [facility] MPV 10.8 7.0 - 11.0 FL LAB HEMETOLOGY METHOD 05/26/2024 11:18 AM EST [facility] NRBC 0.0 <1.0 % LAB HEMETOLOGY METHOD 05/26/2024 11:18 AM EST [facility] NRBC Absolute 0.00 <0.10 K/mcL LAB HEMETOLOGY METHOD 05/26/2024 11:18 AM EST [facility] Blood Venous blood specimen / Unknown Venipuncture / Unknown 05/26/2024 6:59 AM EST 05/26/2024 10:29 AM EST us Gerry Barksdale LAB BLOOD ORDERABLES Final Resul t [facility] [address] [place] [address], documented in this encounter Visit Diagnoses Diagnosis Weakness Other malaise and fatigue Urinary tract infection, site not specified documented in this encounter Care Teams Supervisor Advertising Dispatch Clerks Relationship Specialty Start Date End Date Dalia Harmon PA [address] [place] [address], [address] [place] [address] PCP - General 05/10/24 documented as of this encounter
--- OUTSIDE RECORDS SUMMARY | 2024-06-23 12:22 | XMS_ITS | Clinical Summary ---
Author Organization [facility] Address [address] [place] [phone] Phone Care Team Providers Care Wicker [employer]olded Candles Name Role Phone Dalia Harmon Primary Care Provider [phone] Allergies Active Allergy Reactions Criticality Noted Date Comments Codeine 12/25/2023 Other Reaction(s): Unknown body region Nystatin 04/07/2024 Cream and Powder Semaglutide Unknown 05/19/2024 Medications naloxone (NARCAN) 4 mg/0.1 mL nasal spray Administer 1 each (4 mg total) into affected nostril(s). 023 Active cholecalciferol (VITAMIN D-3) 50 mcg (2,000 unit) tablet 1 tablet (2,000 Units total). 012 Active albuterol 2.5 mg/0.5 mL solution for nebulization nebulizer solution Take 0.5 mL (2.5 mg total) by nebulization every 6 (six) hours if needed for shortness of breath. 024 Active zolpidem (AMBIEN) 10 mg tablet Take 1 tablet (10 mg total) by mouth at bedtime as needed. for insomnia Active oxyCODONE (OXY-IR) 5 mg immediate release capsule Take 2 capsules (10 mg total) by mouth every 4 (four) hours if needed for severe pain. Max Daily Amount: 60 mg 15 capsule 024 Active Additional Information Patient not taking.Reported on 06/14/2024 rosuvastatin (CRESTOR) 5 mg tablet Take 1 tablet (5 mg total) by mouth 1 (one) time each day. Active aspirin 81 mg EC tablet Take 1 tablet (81 mg total) by mouth 1 (one) time each day. Active spironolactone (ALDACTONE) 100 mg tablet Take 1.5 tablets (150 mg total) by mouth 1 (one) time each day. 45 each 025 2024 Active furosemide (LASIX) 20 mg tablet Take 2 tablets in the morning at 8 AM and 1 tablet in afternoon at 3 PM 90 each Active Additional Information Patient taking differently: 20 mg oral Daily, Take 1 tablet in afternoon at 3 PM, Reported on 06/14/2024 tamsulosin (FLOMAX) 0.4 mg 24 hr capsule Take 1 capsule (0.4 mg total) by mouth 1 (one) time each day. Active oxyBUTYnin XL (DITROPAN-XL) 5 mg 24 hr tablet Take 1 tablet (5 mg total) by mouth 1 (one) time each day. Active apixaban (ELIQUIS) 5 mg tablet Take 1 tablet (5 mg total) by mouth 2 (two) times a day. Active oxyCODONE (ROXICODONE) 10 mg immediate release tablet Take 1 tablet (10 mg total) by mouth every 4 (four) hours if needed for severe pain. Max Daily Amount: 60 mg Active ciprofloxacin (CIPRO) 500 mg tablet Take 1.5 tablets (750 mg total) by mouth 2 (two) times a day for 10 days. 30 each 2024 Active furosemide (LASIX) 40 mg tablet Take 1 tablet (40 mg total) by mouth 1 (one) time each day. 30 each 024 2024 Discontinued(S top Taking at Discharge) spironolactone (ALDACTONE) 100 mg tablet Take 1 tablet (100 mg total) by mouth 1 (one) time each day. 90 each 2024 Discontinued amoxicillin-cla vulanate (AUGMENTIN) 875-125 mg per tablet Take 1 tablet by mouth 2 (two) times a day for 8 days. 2024 doxycycline (VIBRAMYCIN) 100 mg capsule Take 1 capsule (100 mg total) by mouth 2 (two) times a day for 8 days. Take with at least 8 ounces (large glass) of water, do not lie down for 30 minutes after 025 2024 apixaban (ELIQUIS) starter pack Take 2 tablets (10 mg total) by mouth 2 (two) times a day for 7 days. Then take 1 tablet (5 mg total) by mouth 2 (two) times a day. 74 tablet 025 2024 Discontinued(S top Taking at Discharge) doxycycline (MONODOX) 100 mg capsule Take 1 capsule (100 mg total) by mouth 2 (two) times a day for 10 days. Take with at least 8 ounces (large glass) of water, do not lie down for 30 minutes after. Administer 2 hours before or after multivitamins, antacids, or other products containing polyvalent cations (i.e., calcium, iron, magnesium, selenium, zinc). 20 capsule 025 2024 Discontinued(S top Taking at Discharge) levoFLOXacin (LEVAQUIN) 250 mg tablet Take 3 tablets (750 mg total) by mouth 1 (one) time each day for 7 days. 21 tablet 025 2024 Discontinued(S top Taking at Discharge) furosemide (LASIX) 40 mg tablet Take 1 tablet (40 mg total) by mouth 1 (one) time each day. 2024 Discontinued(S top Taking at Discharge) Active Problems Problem Noted Date Diagnosed Date Pseudomonal bacteremia 06/13/2024 Severe sepsis 05/19/2024 Candidal intertrigo 03/01/2024 Anasarca 02/26/2024 Lymphedema 08/01/2022 Thrombocytopenia 08/01/2022 Overview (12/25/2023): Related to iron overload syndrome per prior records COPD (chronic obstructive pulmonary disease) Avascular necrosis of bone of hip, left 06/26/19 Overview (12/25/2023): Was seen by [facility] who recommended weight loss prior to elective hip arthroplasty of left hip Was seen by [facility] who concurred with this Insomnia 04/13/2018 Chronic allergic conjunctivitis 04/13/2018 Anxiety 04/13/2018 Esophageal varices 12/03/2017 Hemochromatosis 12/03/2017 Overview (12/25/2023): 2 heterozygous gene mutations were found and recommended [id number] therapeutic phlebotomy. Follows with GI. Liver cirrhosis secondary to CASTANEDA (nonalcoholic steatohepatitis) 12/03/2017 Erosive gastritis 10/13/2017 Obstructive sleep apnea 05/21/2016 Overview (12/25/2023): On CPAP Hypertension 12/14/2014 Hyperlipidemia 12/12/2014 Diabetes mellitus type 2 with neurological manif estations 12/12/2014 Depression with anxiety 12/12/2014 Benign colonic polyp 12/12/2014 Vitamin D deficiency 07/27/2012 Internal hemorrhoids 07/27/2010 Diverticulosis 05/29/2010 Encounters Date Type Department Care Team Description 06/18/2024 Lab Requisition [facility] - Main Lab [address] [facility] [place] [address] Gerry Barksdale Sepsis, unspecified organism (CMS/HCC) 06/14/2024 Telephone Gastroenterology - [place] [address] [facility] [address] [facility] [address] [place] [address] Han Sloan DO provider call back 06/13/2024 12:02 PM EST - 06/16/2024 2:30 PM EST Hospital Encounter [facility] Medical Surgical Unit [address] [place] [phone] Barak Benjamin MD Flores, Carlos M, MD Kela, Kashyap Devendrabhai, MD Mohani, Priya, MD Bacteremia (Primary Dx); Cuello catheter in place; Urinary tract infection associated with indwelling urethral catheter, initial encounter (CMS/HCC); Hx of ascites; Anasarca Discharge Disposition: Home-Health Care [facility] 06/11/2024 10:01 PM EST - 06/12/2024 12:27 PM EST Emergency [facility] Emergency [address] [place] [phone] Vatrenko, Barak, MD Gross hematuria (Primary Dx); Tachycardia; Abnormal chest CT Discharge Disposition: Home or Self Care 06/04/2024 Lab Requisition [facility] Lab [address] [place] [phone] Gerry Barksdale Sepsis, unspecified organism ([facility]/HCC) 06/03/2024 Telephone Gastroenterology - [place] [address] [facility] [address] [place] [phone] Han Sloan DO TESTING 05/28/2024 Lab Requisition [facility] Lab [address] [place] [phone] Gerry Barksdale Sepsis, unspecified organism ([facility]/HCC) 05/26/2024 Lab Requisition [facility] [address] [place] [phone] Gerry Barksdale Weakness; Urinary tract infection, site not specified 05/25/2024 Telephone Gastroenterology - [place] [address] [facility] [address] [place] [phone] Han Sloan DO 05/24/2024 Telephone Gastroenterology [facility] [address] [facility] [address] [place] [phone] Han Sloan DO provider call back 05/19/2024 3:40 PM EST - 05/25/2024 4:38 PM EST Hospital Encounter [facility] Medical Surgical Unit [address] [place] [phone] Emily Singh DO Bukalo, Nermina, MD Nasser, Nada S, MD Kela, Kashyap Devendrabhai, MD Bilateral leg edema (Primary Dx); Urinary tract infection without hematuria, site unspecified; Hepatic cirrhosis, unspecified hepatic cirrhosis type, unspecified whether ascites present (CMS/HCC); Cellulitis of left leg; Severe sepsis ([facility]/HCC) Discharge Disposition: [facility] 05/12/2024 9:15 AM EST - 05/12/2024 11:59 PM EST Hospital Encounter [facility] CT Scan [address] [place] [address] Decompensated cirrhosis (CMS/HCC); 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); Urinary retention Discharge Disposition: Home or Self Care 05/11/2024 10:27 AM EST - 05/11/2024 11:59 PM EST Hospital Encounter [facility] Ultrasound [address] [place] [address] 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) Discharge Disposition: Home or Self Care 05/10/2024 Telephone Internal [facility] - [facility] [address] [place] [address] Em Dixon DO Faxed Order (Silvia FULTON) 05/05/2024 Telephone Gastroenterology [facility] [address] [phone] Han Sloan DO 04/20/20[facility] [address] [phone] Han Sloan DO provider call back 04/13/2024 [facility] [address] [phone] Claudia Diez [place] 04/09/2024 [facility] [address] [phone] Han Sloan DO provider call back 04/07/2024 11:50 AM EST Lab Draw Station - [address] [phone] Decompensated cirrhosis (CMS/HCC); 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); Urinary retention; Anasarca; Liver cirrhosis secondary to CASTANEDA (nonalcoholic steatohepatitis) (CMS/HCC) 04/07/2024 11:00 AM EST Office Visit Gastroenterology [facility] [address] [phone] Han Sloan DO Decompensated cirrhosis (CMS/HCC) (Primary Dx); 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); Urinary retention 04/05/2024 Billing Patient Not Present [facility] [address] [facility] [place] [phone] Em Dixon DO Hereditary hemochromatosis (CMS/HCC) (Primary [...] elsewhere classified 04/05/2024 Telephone Internal Medicine - [facility] [address] [place] [phone] Em Dixon DO Faxed Order ([facility] [employer] (Discharge Summary)) 04/05/2024 Telephone Internal Medicine - [facility] [address] [place] [phone] Em Dixon DO Faxed Order ([facility] VNA) 04/02/2024 [facility] [address] [place] [phone] Em Dixon DO Faxed Order ([facility]NA (Missed Visit)) 04/01/2024 [facility] [address] [place] [phone] Em Dixon DO Faxed Order ( [facility] VNA ) 03/30/2024 [facility] [address] [place] [phone] Em Dixon DO faxed order ([employer] vna tracking#[id number]) from Last 3 Months Surgical History Surgery Date Site/Laterality Comments BACK SURGERY PROCEDURE: HISTORICAL BACK SURGERY; COMMENT: spinal diskectomy, osteophytectomy x4 ESOPHAGOGASTRODUODENOSCOPY PROCEDURE: DC ESOPHAGOGASTRODUODENOSCOPY TRANSORAL DIAGNOSTIC COLONOSCOPY N/A PROCEDURE: HISTORICAL COLONOSCOPY OTHER SURGICAL HISTORY Right PROCEDURE: DC STAB PHLEBT VARICOSE VEINS 1 XTR > [...] Brother x2 Other: other Father cancer from [facility] estos Heart attack Grandparent maternal Obesity [...] Orientation Straight 02/26/2024 2: 06 PM EST Obstetrics History Last Filed Vital Signs Vital Sign Reading Time Taken Comments Blood Pressure 115/66 06/16/2024 7:22 AM EST Pulse 99 06/16/2024 7:22 AM EST Temperature 36.5 ??C (97.7 ??F) 06/16/2024 7:22 AM ES T Respiratory Rate 18 06/16/2024 7:22 AM EST Oxygen Saturation 94% 06/16/2024 7:22 AM EST Inhaled Oxygen Concentration - - Weight 147 kg (323 lb) 06/13/2024 12:31 PM EST Height 165.1 cm (5' 5 ) 06/13/2024 12:31 PM EST Body Mass Index 53.75 06/13/2024 12:31 PM EST Plan of Treatment Upcoming Encounters Date Type Department Care Team (Latest Contact Info) Description 06/24/2024 11:20 AM EST Office Visit Gastroenterology - [place] 175 [facility] [address] [facility] [address] [place] [phone] Han Sloan DO 175 [facility] 200 [place] [address] 07/06/2024 1:00 PM EDT Appointment [facility] Interventional Radiology [address] [place] [phone] 08/12/2024 10:30 AM EDT Ancillary Procedure [facility] [address] [place] [phone] Health Maintenance Due Date Last Done Comments [...] exists Diabetes: Blood Sugar Control Test (HGBA1C) 11/18/2024 05/21/2024, 03/04/2024, 11/17/2023 Diabetes: Annual GFR (Glomerular Filtration Rate) 06/15/2025 06/15/2024, 06/14/2024, 06/13/2024, Additional history exists Hypertension/CHF/CAD Annual BMP Blood Test 06/15/2025 06/15/2024, 06/14/2024, 06/13/2024, Additional history exists Falls Risk Assessment 06/16/2025 06/16/2024 Colorectal Cancer Screening: Colonoscopy 09/22/2030 09/22/2020 DTaP,Tdap,and Td Vaccines (2 - Td or Tdap) 07/31/2032 07/31/2022 Pneumococcal Vaccine: 50+ Years Completed 05/06/2023, 03/23/2012 HIB Vaccines Aged [...] patient's age to complete this topic Meningococcal B Vacine Aged Out No lo nger eligible based on patient's age to complete this topic RSV Immunization Patients Under 20 months Aged Out No longer eligible based on patient's age to complete this topic Varicella Vaccines Aged Out No longer eligible based on patient's age to complete this topic Procedures Procedure Name Priority Date/Time Associated Diagnosis Comments TRANSTHORACIC ECHOCARDIOGRAM (TTE) COMPLETE W/ CONTRAST Routine 06/15/2024 2:35 PM EST Anasarca ECG 12-LEAD Routine 06/15/2024 12:53 PM EST MAGNESIUM Routine 06/15/2024 6:38 AM EST BASIC METABOLIC PANEL Routine 06/15/2024 6:38 AM EST COMPLETE BLOOD COUNT Routine 06/15/2024 6:38 AM EST PHOSPHORUS Routine 06/15/2024 6:38 AM EST CPAP NIV Routine 06/14/2024 10:01 PM EST NON-GYNECOLOGIC CYTOLOGY Routine 025 10:19 AM EST DIFFERENTIAL BODY FLUID Routine 06/14/19 10:19 AM EST CELL COUNT WITH REFLEX DIFFERENTIAL, BODY FLUID Routine 06/14/2024 10:19 AM EST SPECIFIC GRAVITY, BODY FLUID Routine 06/14/2024 10:19 AM EST AMYLASE, BODY FLUID Routine 06/14/2024 1 0:19 AM EST GLUCOSE, BODY FLUID Routine 06/14/2024 1 0:19 AM EST LACTATE DEHYDROGENASE, BODY FLUID Routine 06/14/2024 10:19 AM EST PROTEIN, BODY FLUID Routine 06/14/2024 1 0:19 AM EST ALBUMIN, BODY FLUID Routine 06/14/2024 1 0:19 AM EST CULTURE FUNGAL, OTHER Routine 06/14/2024 10:19 AM EST CULTURE BODY FLUID WITH GRAM STAIN Routine 06/14/2024 10:19 AM EST US PARACENTESIS W IMAGE GUIDANCE Routine 06/14/2024 10:17 AM EST LACTATE, WITH REFLEX STAT 06/14/2024 5:26 AM EST CULTURE BLOOD Routine 06/14/2024 5:22 AM EST CBC WITH AUTO DIFFERENTIAL Routine 06/14/2024 5:14 AM EST CBC AND DIFFERENTIAL Routine 06/14/2024 5:14 AM EST MAGNESIUM Routine 06/14/2024 5:14 AM EST BASIC METABOLIC PANEL Routine 06/14/2024 5:14 AM EST CULTURE BLOOD Routine 06/14/2024 5:14 AM EST ECG ANNOTATED 06/14/2024 CPAP NIV Routine 06/13/2024 10:01 PM EST LACTATE, WITH REFLEX Timed 06/13/2024 3:34 PM EST PROSTATE SPECIFIC ANTIGEN SCREEN Add-On 06/13/2024 12:37 PM EST HEPATIC FUNCTION PANEL Add-On 12:37 PM EST C-REACTIVE PROTEIN Add-On 06/13/2024 12 :37 PM EST BASIC METABOLIC PANEL STAT 06/13/2024 12:37 PM EST CBC WITH AUTO DIFFERENTIAL STAT 06/13/2024 12:37 PM EST LACTATE, WITH REFLEX STAT 06/13/2024 12:37 PM EST CBC AND DIFFERENTIAL STAT 06/13/2024 12:37 PM EST TROPONIN I HIGH SENSITIVITY STAT 06/12/2024 6:[address] ANGIO CHEST WO AND/OR W CONTRAST STAT 06/12/2024 6:[address] ABDOMEN PELVIS W CONTRAST STAT 06/12/2024 6:28 AM EST PROTHROMBIN TIME WITH INR STAT 06/12/2024 5:19 AM EST B-TYPE NATRIURETIC PEPTIDE STAT 06/12/2024 5:19 AM EST TROPONIN I HIGH SENSITIVITY STAT 06/12/2024 5:19 AM EST ECG 12-LEAD STAT 06/12/2024 3:57 AM EST BLOOD CULTURE PATHOGENS BY PCR Routine 06/12/2024 3:44 AM EST CULTURE BLOOD STAT 06/12/2024 3:44 AM EST LACTATE STAT 06/12/2024 3:40 AM EST CULTURE BLOOD STAT 06/12/2024 3:40 AM EST PUGH URINE CULTURE TUBE STAT 06/12/19 1:15 AM EST URINALYSIS WITH REFLEX MICROSCOPIC AND CULTURE STAT 06/12/2024 1:15 AM EST URINALYSIS WITH REFLEX MICROSCOPIC AND CULTURE STAT 06/12/2024 1:15 AM EST CULTURE URINE STAT 06/12/2024 1:15 AM EST CBC WITH AUTO DIFFERENTIAL STAT 06/11/2024 11:14 PM EST BASIC METABOLIC PANEL STAT 06/11/2024 11:14 PM EST CBC AND DIFFERENTIAL STAT 06/11/2024 11:14 PM EST BASIC METABOLIC PANEL Routine 06/07/2024 10:48 AM EST Sepsis, unspecified organism (CMS/HCC) COMPLETE BLOOD COUNT Routine 06/07/2024 10:48 AM EST Sepsis, unspecified organism (CMS/HCC) BASIC METABOLIC PANEL Routine 05/31/2024 8:09 AM EST Sepsis, unspecified organism (CMS/HCC) COMPLETE BLOOD COUNT Routine 05/31/2024 8:09 AM EST Sepsis, unspecified organism (CMS/HCC) VITAMIN B12 Routine 05/26/2024 6:59 AM EST Weakness Urinary tract infection, site not specified FOLATE Routine 05/26/2024 6:59 AM EST Weakness Urinary tract infection, site not specified THYROID STIMULATING HORMONE Routine 05/26/2024 6:59 AM EST Weakness Urinary tract infection, site not specified COMPREHENSIVE METABOLIC PANEL Routine 05/26/2024 6:59 AM EST Weakness Urinary tract infection, site not specified COMPLETE BLOOD COUNT Routine 05/26/2024 6:59 AM EST Weakness Urinary tract infection, site not specified MAGNESIUM Routine 05/25/2024 5:32 AM EST BASIC METABOLIC PANEL Routine 05/25/2024 5:32 AM EST COMPLETE BLOOD COUNT Routine 05/25/2024 5:32 AM EST PHOSPHORUS Routine 05/25/2024 5:32 AM EST MAGNESIUM Routine 05/24/2024 6:07 AM EST BASIC METABOLIC PANEL Routine 05/24/2024 6:07 AM EST COMPLETE BLOOD COUNT Routine 05/24/2024 6:07 AM EST PHOSPHORUS Routine 05/24/2024 6:07 AM EST CPAP NIV Routine 05/23/2024 10:00 PM EST VANCOMYCIN, TROUGH Timed 05/23/2024 12 :10 PM EST BASIC METABOLIC PANEL Routine 05/23/2024 8:24 AM EST LAVENDER - EDTA Routine 05/23/2024 3:07 AM EST EXTRA TUBES Routine 05/23/2024 3:07 AM EST VANCOMYCIN, TROUGH Timed 05/23/2024 3: 05 AM EST PROTHROMBIN TIME WITH INR Routine 05/22/2024 5:42 AM EST PHOSPHORUS Routine 05/22/2024 5:42 AM EST MAGNESIUM Routine 05/22/2024 5:42 AM EST BASIC METABOLIC PANEL Routine 05/22/2024 5:42 AM EST LAVENDER - EDTA Routine 05/22/2024 5:37 AM EST EXTRA TUBES Routine 05/22/2024 5:37 AM EST CPAP NIV Routine 05/21/2024 10:00 PM EST VAS US DUPLEX LOWER EXT VENOUS BILAT STAT 05/21/2024 9:14 AM EST Bilateral leg edema TRIIODOTHYRONINE FREE Routine 05/21/2024 3:17 AM EST FREE THYROXINE WITH REFLEX TO FREE TRIIODOTHYRONINE Routine 05/21/2024 3:17 AM EST CBC WITH AUTO DIFFERENTIAL Routine 05/21/2024 3:17 AM EST LACTATE Routine 05/21/2024 3:17 AM EST THYROID STIMULATING HORMONE WITH REFLEX TO FREE T4 AND FREE T3 Routine 05/21/2024 3:17 AM EST HEMOGLOBIN A1C Routine 05/21/2024 3:17 AM EST CBC AND DIFFERENTIAL Routine 05/21/2024 3:17 AM EST PHOSPHORUS Routine 05/21/2024 3:17 AM EST PROTHROMBIN TIME WITH INR Routine 05/21/2024 3:17 AM EST COMPREHENSIVE METABOLIC PANEL Routine 05/21/2024 3:17 AM EST MAGNESIUM Routine 05/21/2024 3:17 AM EST VANCOMYCIN, TROUGH Timed 05/21/2024 3: 17 AM EST CPAP NIV Routine 05/20/2024 10:00 PM EST POCT GLUCOSE BLOOD Routine 05/20/2024 8: 37 AM EST SEDIMENTATION RATE Add-On 05/20/2024 6: 09 AM EST C-REACTIVE PROTEIN Add-On 05/20/2024 6: 09 AM EST COMPLETE BLOOD COUNT Routine 05/20/2024 6:09 AM EST BASIC METABOLIC PANEL Routine 05/20/2024 6:09 AM EST LACTATE Timed 05/20/2024 1:02 AM EST LACTATE Timed 05/19/2024 10:05 PM EST CPAP NIV Routine 05/19/2024 10:01 PM EST CPAP NIV Routine 05/19/2024 8:02 PM EST XR CHEST 2 VIEWS STAT 05/19/2024 6:51 PM EST LACTATE Timed 05/19/2024 6:13 PM EST CULTURE BLOOD STAT 05/19/2024 6:13 PM EST CULTURE BLOOD STAT 05/19/2024 6:13 PM EST ECG 12-LEAD STAT 05/19/2024 5:11 PM EST TROPONIN I HIGH SENSITIVITY STAT 05/19/2024 5:03 PM EST PUGH URINE CULTURE TUBE STAT 05/19/19 4:28 PM EST URINALYSIS WITH REFLEX MICROSCOPIC AND CULTURE STAT 05/19/2024 4:28 PM EST URINALYSIS WITH REFLEX MICROSCOPIC AND CULTURE STAT 05/19/2024 4:28 PM EST CULTURE URINE STAT 05/19/2024 4:28 PM EST ECG 12-LEAD STAT 05/19/2024 4:22 PM EST PROTHROMBIN TIME WITH INR STAT 05/19/2024 4:10 PM EST LACTATE STAT 05/19/2024 4:10 PM EST CBC WITH AUTO DIFFERENTIAL STAT 05/19/2024 4:10 PM EST B-TYPE NATRIURETIC PEPTIDE STAT 05/19/2024 4:10 PM EST MAGNESIUM STAT 05/19/2024 4:10 PM EST LIPASE STAT 05/19/2024 4:10 PM EST COMPREHENSIVE METABOLIC PANEL STAT 05/19/2024 4:10 PM EST CBC AND DIFFERENTIAL STAT 05/19/2024 4:10 PM EST TROPONIN I HIGH SENSITIVITY STAT 05/19/2024 4:10 PM EST ECG ANNOTATED 05/19/2024 ECG ANNOTATED 05/19/2024 CT ABDOMEN PELVIS W CONTRAST Routine 05/12/2024 10:27 AM EST Decompensated cirrhosis (CMS/HCC) 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) Urinary retention BASIC METABOLIC PANEL Routine 05/11/2024 12:25 PM EST DIFFERENTIAL BODY FLUID Routine 05/11/19 12:04 PM EST Ascites due to alcoholic [...] due to alcoholic cirrhosis (CMS/HCC) Urinary retention from Last 3 Months Results * (ABNORMAL) TRANSTHORACIC ECHOCARDIOGRAM (TTE) COMPLETE W/ CONTRAST (06/15/2024 2:35 PM EST) Left Atrium Major [place] 5.9 cm CV PACS LA Area Sys (A4C) 24 cm2 CV PACS RA Area 21.3 cm2 CV PACS RA 2D Volume 62 mL CV PACS AV Mean Gradient 4 mmHg CV PACS Ao VTI 24.5 cm CV PACS AV Peak Uriel 1.3 m/s CV PACS AV Peak Gradient 7 mmHg CV PACS AV Area Continuity Equation 4.4 cm2 CV PACS AV Area Peak Velocity 4.6 cm2 CV PACS Aortic Sinus Valsalva 4.5 cm CV PACS IVSD 1.1(A) 0.6 - 1.0 cm CV PACS LVIDD 5.2 4.2 - 5.8 cm CV PACS LVIDS 4.9(A) 2.5 - 4.0 cm CV PACS LVOT Diameter 2.8 cm CV PACS LVOT Mean Uriel 0.7 m/s CV PACS LVOT Mean Grad 2 mmHg CV PACS LVOT Mean Grad 2 mmHg CV PACS LVOT Peak VTI 17.7 cm CV PACS LVOT Peak Uriel 1.0 m/s CV PACS LVOT Peak Gradient 4 mmHg CV PACS LVPWD 1.1(A) 0.6 - 1.0 cm CV PACS MV E' Tissue Velocity Lateral 8 cm/s CV PACS MV E' Tissue Velocity Septal 6 cm/s CV PACS LVOT Area 6.2 cm2 CV PACS LVOT Stroke Volume 109 mL CV PACS E Wave Deceleration Time 155 119 - 242 ms CV PACS MV Peak A Uriel 0.97 m/s CV PACS MV Peak E Uriel 0.61 m/s CV PACS PV Acceleration Time 127 ms CV PACS RV Diastolic Basal Dimension 4.1 2.5 - 4.1 cm CV PACS RV S' 14 cm/s CV PACS TAPSE 26 mm CV PACS TR Peak Velocity 1.12 m/s CV PACS TR Peak Gradient 5 mmHg CV PACS E/E' Ratio Septal 10 CV PACS E/E' Ratio Averaged 9 CV PACS LVOT Stroke Index 45 mL/m2 CV PACS Relative Wall Thickness ratio 0.42 CV PACS LVOT:AV VTI Index 0.72 CV PACS FS 6 % CV PACS LV Mass 2D 221 g CV PACS LVOT flow 431 mL/s CV PACS RA 2D Volume Index 26 mL/m2 CV PACS RAKEL Index (VTI) 1.83 cm2/m2 CV PACS RAKEL Index (Pk Uriel) 1.89 cm2/m2 CV PACS LVIDD Index 2.14 cm/m2 CV PACS LVIDS Index 2.02 cm/m2 CV PACS AV Velocity Ratio 0.77 CV PACS E/A Ratio 0.6 CV PACS E/E' Ratio Lateral 8 CV PACS LV Mass Index 2D 91 g/m2 CV PACS BSA 2.59 m2 CV PACS Anatomical Region Laterality Modality Ultrasound Narrative 06/15/2024 2:54 PM EST ?Left ventricle cavity size is normal. Left ventricular systolic function is in the normal range with an ejection fraction of 55-60%. ?Left ventricle mild concentric hypertrophy. ?Right ventricle cavity is normal. Right ventricular systolic function is normal. ?Aortic valve leaflets are mildly thickened. ?The Sinus of Valsalva is dilated (4.5 cm). Left Ventricle Left ventricle cavity size is normal. There is mild concentric hypertrophy. Systolic function appears to be normal with an ejection fraction of 55-60%. Regional LV wall motion cannot be accurately assessed due to image quality. Unable to assess diastolic function. Right Ventricle Right ventricle cavity appears normal. Systolic function is normal. Left Atrium Left atrium cavity size is normal. Right Atrium Right atrium cavity is normal. IVC/SVC Inferior vena cava structure is normal. RA pressures is estimated to be 3 mmHg (IVC diameter <21 mm and decreases >50% during inspiration). Mitral Valve The leaflets are mildly thickened. There is mild annular calcification. There is trace regurgitation. There is no evidence of mitral valve stenosis. Tricuspid Valve The tricuspid valve was not well visualized. Tricuspid valve structure is normal. There is no significant regurgitation. There is no evidence of tricuspid valve stenosis. Aortic Valve The aortic valve is trileaflet. The leaflets are mildly thickened. There is no regurgitation or stenosis. Pulmonic Valve Visualized portions of the pulmonic valve appear normal. No significant pulmonic valve regurgitation. There is no evidence of pulmonic valve stenosis. Ascending Aorta The Sinus of Valsalva is (4.5 cm). Ascending aorta not well visualized. Pericardium Pericardium appears normal. There is no pericardial effusion. Study Details Overall the study quality was technically difficult. Definity contrast was given to enhance imaging. Study was difficult due to: poor endocardial visualization, patient body habitus, low parasternal window, procedure performed with the patient in a supine position and lung artifact. Liang Reinoso MD CV ECHO PROCEDURES Final Result * ECG 12 lead (06/15/2024 12:53 PM EST) Only the most recent of4 resultswithin the time period is included. Pathologist [facility] Ventricular Rate ECG 85 BPM GEMUSE Atrial Rate 85 BPM GEMUSE P-R Interval 126 ms GEMUSE QRS Duration 130 ms GEMUSE Q-T Interval 408 ms GEMUSE QTc 485 ms GEMUSE P Wave [place] 28 degrees GEMUSE R [place] -36 degrees GEMUSE T [place] 29 degrees GEMUSE ECG Interpretation Normal sinus rhythm Left axis deviation Right bundle branch block Abnormal ECG When compared with ECG of 12-JUN-2024 03:57, No significant change was found Confirmed by MD Felix, Ullin ([id number]) on 06/15/2024 5:37:07 PM GEMUSE 06/15/2024 12:5 3 PM EST 06/15/2024 5:37 PM EST Liang Reinoso MD ECG ORDERABLES Fin al Result GEMUSE * (ABNORMAL) Complete blood count (06/15/2024 6:38 AM EST) Only the most recent of7 resultswithin the time period is included. Pathologist [facility] WBC 4.1(L) 4.8 - 10.8 K/[facility] LAB HEMETOLOGY METHOD 06/15/2024 7:42 AM EST [facility] RBC 3.50(L) 4.50 - 5.50 M/mcL LAB HEMETOLOGY METHOD 06/15/2024 7:42 AM [facility] Hemoglobin 11.9(L) 13.5 - 17.5 g/dL LAB HEMETOLOGY METHOD 06/15/2024 7:42 AM [facility] Hematocrit 35.3(L) 42.0 - 54.0 % LAB HEMETOLOGY METHOD 06/15/2024 7:42 AM [facility] MCV 102.3(H) 79.0 - 98.0 FL LAB HEMETOLOGY METHOD 06/15/2024 7:42 AM [facility] MCH 34.5(H) 27.0 - 32.0 pcg LAB HEMETOLOGY METHOD 06/15/2024 7:42 AM [facility] MCHC 33.7 32.0 - 37.0 g/dL LAB HEMETOLOGY METHOD 06/15/2024 7:42 AM [facility] RDW 17.0(H) 11.0 - 15.0 % LAB HEMETOLOGY METHOD 06/15/2024 7:42 AM [facility] Platelets 81(L) 130 - 400 K/mcL LAB HEMETOLOGY METHOD 06/15/2024 7:42 AM [facility] Comment:previously verified by slide MPV 11.0 7.0 - 11.0 FL LAB HEMETOLOGY METHOD 06/15/2024 7:42 AM [facility] NRBC 0.0 <1.0 % LAB HEMETOLOGY METHOD 06/15/2024 7:42 AM [facility] NRBC Absolute 0.00 <0.10 K/mcL LAB HEMETOLOGY METHOD 06/15/2024 7:42 AM [facility] Blood Venous blood specimen / Unknown Venipuncture / Unknown 06/15/2024 6:38 AM EST 06/15/2024 7:06 AM EST us Liang Reinoso MD LAB BLOOD ORDERABLE S Final Result Performing Organization Address City/[facility]/ZIP Co de Phone Number [facility] [address] [place] [address], [place] [phone] * Phosphorus (06/15/2024 6:38 AM EST) Only the most recent of5 resultswithin the time period is included. Phosphorus 3.0 2.5 - 4.5 mg/dL LAB CHEMISTRY METHOD 06/15/2024 7:50 AM EST [facility] Blood Venous blood specimen / Unknown Venipuncture / Unknown 06/15/2024 6:38 AM EST 06/15/2024 7:06 AM EST us Liang Reinoso MD LAB BLOOD ORDERABLE S Final Result Performing Organization Address [facility] Co de Phone Number [facility] [address] [place] [address], [place] [phone] * Magnesium (06/15/2024 6:38 AM EST) Only the most recent of7 resultswithin the time period is included. Magnesium 1.9 1.9 - 2.6 mg/dL LAB CHEMISTRY METHOD 06/15/2024 7:50 AM EST [facility] Blood Venous blood specimen / Unknown Venipuncture / Unknown 06/15/2024 6:38 AM EST 06/15/2024 7:06 AM EST us Liang Reinoso MD LAB BLOOD ORDERABLE S Final Result Performing Organization Address City/[facility]/ZIP Co de Phone Number [facility] [address] [place] [address], [place] [phone] * (ABNORMAL) Basic metabolic panel (06/15/2024 6:38 AM EST) Only the most recent of12 resultswithin the time period is included. Sodium 134 133 - 145 mmol/L LAB CHEMISTRY METHOD 06/15/2024 7:50 AM [facility] Potassium 4.2 3.5 - 5.5 mmol/L LAB CHEMISTRY METHOD 06/15/2024 7:50 AM [facility] Chloride 100 96 - 110 mmol/L LAB CHEMISTRY METHOD 06/15/2024 7:50 AM [facility] CO2 30 21 - 32 mmol/L LAB CHEMISTRY METHOD 06/15/2024 7:50 AM [facility] Anion Gap 4 3 - 11 LAB CHEMISTRY METHOD 06/15/2024 7:50 AM [facility] Glucose 115(H) 70 - 100 mg/dL LAB CHEMISTRY METHOD 06/15/2024 7:50 AM [facility] BUN 11 5 - 25 mg/dL LAB CHEMISTRY METHOD 06/15/2024 7:50 AM [facility] Creatinine 0.48(L) 0.70 - 1.30 mg/dL LAB CHEMISTRY METHOD 06/15/2024 7:50 AM [facility] eGFR 114 >=60 mL/min/1. 73m2 LAB CHEMISTRY METHOD 06/15/2024 7:50 AM [facility] Comment:Calculation based on the??Chronic Kidney Disease Epidemiology Collaboration (CKD-EPI) equation refit??without adjustment for race. BUN/Creatinine Ratio 22.9 LAB CHEMISTRY METHOD 06/15/2024 7:50 AM [facility] Calcium 8.2(L) 8.5 - 10.5 mg/dL LAB CHEMISTRY METHOD 06/15/2024 7:50 AM [facility] Blood Venous blood specimen / Unknown Venipuncture / Unknown 06/15/2024 6:38 AM EST 06/15/2024 7:06 AM EST Liang Reinoso MD LAB BLOOD ORDERABLE S Final Result [facility] [address] [place] [address], [place] [phone] * Cell count with reflex differential, body fluid (06/14/2024 10:19 AM EST) Only the most recent of2 resultswithin the time period is included. Body Fluid Total Nucleated Cells 218 /mm3 LAB HEMETOLOGY METHOD 06/14/2024 11:38 AM EST [facility] Body Fluid RBC 1,000 /mm3 LAB HEMETOLOGY METHOD 06/14/2024 11:38 AM EST [facility] Body Fluid Color Yellow 06/14/2024 11:38 AM EST [facility] Body Fluid Clarity Clear 06/14/2024 11:38 AM EST [facility] Body Fluid Source Peritoneal 06/14/2024 11:38 AM EST [facility] Peritoneal Fluid Peritoneal cavity structure / Unknown Non-blood Collection / Unknown 06/14/2024 10:19 AM EST 06/14/2024 10:27 AM EST Narrative [facility] - 06/14/2024 11:38 AM EST No reference ranges have been established for body fluids. Clinical correlation recommended. us Cristiana RAND LAB BODY FLUIDS AND STO OLS ORDERABLES Final Result [facility] [address] [place] [address], [place] [phone] * Culture body fluid with gram stain (06/14/2024 10:19 AM EST) Fluid Culture No growth at 3 days LAB MICROBIOLOGY METHOD 06/17/2024 11:25 AM EST [facility] Gram Stain Result No polymorphonuclear leukocytes, No epithelial cells, and No organisms noted 06/17/2024 11:25 AM EST [facility] Peritoneal Fluid Peritoneal cavity structure / Unknown Non-blood Collection / Unknown 06/14/2024 10:19 AM EST 06/14/2024 10:26 AM EST Cristiana RAND LAB MICROBIOLOGY - GENE RAL ORDERABLES Final Result Performing Organization Address [facility]/ZIP Co de Phone Number [facility] [address] [place] [address], [place] [phone] * Differential body fluid (06/14/2024 10:19 AM EST) Only the most recent of2 resultswithin the time period is included. Fluid Neutrophils % 4 % 06/14/2024 11:38 AM EST [facility] Fluid Lymphocytes % 74 % 06/14/2024 11:38 AM EST [facility] Fluid Monocytes/Macrop hages 22 % 06/14/2024 11:38 AM EST [facility] Fluid Eosinophils % 0 % 06/14/2024 11:38 AM [facility] Fluid Basophils % 0 % 06/14/2024 11:38 AM [facility] Fluid Other Cells % 0 % 06/14/2024 11:38 AM [facility] Peritoneal Fluid Peritoneal cavity structure / Unknown Non-blood Collection / Unknown 06/14/2024 10:19 AM EST 06/14/2024 10:27 AM EST Narrative [facility] - 06/14/2024 11:38 AM EST No reference ranges have been established for body fluids. Clinical correlation recommended. us Cristiana RAND LAB BODY FLUIDS AND STO OLS ORDERABLES Final Result [facility] [address] [place] [address], [place] [phone] * Specific gravity, body fluid (06/14/2024 10:19 AM EST) Spec Grav, Fluid 1.014 06/14/2024 11:01 AM EST [facility] Peritoneal Fluid Non-blood Collection / Unknown 06/14/2024 10:19 AM EST 06/14/2024 10:26 AM EST [facility] - 06/14/2024 11:01 AM EST No reference ranges have been established for body fluids. Clinical correlation recommended. us Cristiana RAND LAB BODY FLUIDS AND STO OLS ORDERABLES Final Result Performing Organization Address [facility] Co de Phone Number [facility] [address] [place] [address], [place] [phone] * Protein, body fluid (06/14/2024 10:19 AM EST) Only the most recent of2 resultswithin the time period is included. [facility] Protein, Fluid 1.4 See Comment g/dL LAB CHEMISTRY METHOD 06/14/2024 11:19 AM EST [facility] Peritoneal Fluid Non-blood Collection / Unknown 06/14/2024 10:19 AM EST 06/14/2024 10:26 AM EST [facility] - 06/14/2024 11:19 AM EST No reference ranges have been established for body fluids. Clinical correlation recommended. us Cristiana RAND LAB BODY FLUIDS AND STO OLS ORDERABLES Final Result Performing Organization Address City/[facility]/ZIP Co de Phone Number [facility] [address] [place] [address], [place] [phone] * Lactate dehydrogenase, body fluid (06/14/2024 10:19 AM EST) LD, Fluid 78 See Comment unit/L LAB CHEMISTRY METHOD 06/14/2024 11:42 AM EST [facility] Peritoneal Fluid Peritoneal cavity structure / Unknown Non-blood Collection / Unknown 06/14/2024 10:19 AM EST 06/14/2024 10:27 AM EST [facility] - 06/14/2024 11:42 AM EST No reference ranges have been established for body fluids. Clinical correlation recommended. Cristiana RAND LAB BODY FLUIDS AND STO OLS ORDERABLES Final Result Performing Organization Address City/[facility]/ZIP Co de Phone Number [facility] [address] [place] [address], [place] [phone] * Glucose, body fluid (06/14/2024 10:19 AM EST) Glucose, Fluid 150 See Comment mg/dL LAB CHEMISTRY METHOD 06/14/2024 11:28 AM EST [facility] Ascites 06/14/2024 10:1 9 AM EST 06/14/2024 10:26 AM EST [facility] - 06/14/2024 11:28 AM EST No reference ranges have been established for body fluids. Clinical correlation recommended. Cristiana RAND LAB BODY FLUIDS AND STO OLS ORDERABLES Final Result Performing Organization Address City/[facility]/ZIP Co de Phone Number [facility] [address] [place] [address], [place] [phone] * Amylase, body fluid (06/14/2024 10:19 AM EST) Amylase, Fluid 24 See Comment unit/L LAB CHEMISTRY METHOD 06/14/2024 11:19 AM EST [facility] Peritoneal Fluid Non-blood Collection / Unknown 06/14/2024 10:19 AM EST 06/14/2024 10:26 AM EST [facility] - 06/14/2024 11:19 AM EST No reference ranges have been established for body fluids. Clinical correlation recommended. Cristiana RAND LAB BODY FLUIDS AND STO OLS ORDERABLES Final Result Performing Organization Address [facility] de Phone Number [facility] [address] [place] [address], [place] [phone] * Albumin, body fluid (06/14/2024 10:19 AM EST) Only the most recent of2 resultswithin the time period is included. Albumin, Fluid 0.6 See Comment g/dL LAB CHEMISTRY METHOD 06/14/2024 11:19 AM EST [facility] Peritoneal Fluid Non-blood Collection / Unknown 06/14/2024 10:19 AM EST 06/14/2024 10:26 AM EST [facility] - 06/14/2024 11:19 AM EST No reference ranges have been established for body fluids. Clinical correlation recommended. Cristiana RAND LAB BODY FLUIDS AND STO OLS ORDERABLES Final Result Performing Organization Address [facility] de Phone Number [facility] [address] [place] [address], [place] [phone] * Non-gynecologic cytology (06/14/2024 10:19 AM EST) Final Diagnosis A. Peritoneal fluid, paracentesis, (ThinPrep, cell block): Negative for malignant cells. 06/17/2024 4:30 PM EST [facility] Specimen A Adequacy Satisfactory for evaluation 06/17/2024 4:30 PM EST [facility] Gross Description A. Peritoneal Cavity, : Received 115 ml of yellow fluid; 1 ThinPrep, 1 Cell block Cell block in formalin @1500; total formalin fixation time 6 hours. 06/17/2024 4:30 PM EST [facility] Disclaimer Unless otherwise specified, all tissue is 10% NB formalin fixed and paraffin embedded. Technical cytopathology services provided by [facility], at [address] [place] [address] (CLIA # [id number]/Katya Lo MD, [employer].) 06/17/2024 4:30 PM EST [facility] Peritoneal Fluid Peritoneal cavity structure / Unknown Non-blood Collection / Unknown 06/14/2024 10:19 AM EST 06/14/2024 2:30 PM EST us Cristiana RAND LAB CYTOLOGY ORDERABLES Final Result [facility] [address] [place] [address], [place] [phone] * [place] Paracentesis w Image Guidance (06/14/2024 10:17 AM EST) Only the most recent of2 resultswithin the time period is included. Anatomical Region Laterality Modality Abdomen Ultrasound 06/14/2024 11:2 8 AM EST Impressions 06/15/2024 12:40 PM EST Successful paracentesis of 4.7L of ascitic fluid without complications. -------- FINAL REPORT -------- Dictated By: Milady Chilel Dictated Date: 06/14/2024 11:28 ET Assigned Physician: Aurora Meng Reviewed and Electronically Signed By: Aurora Meng Signed Date: 06/15/2024 12:40 ET Workstation ID: [id number] Transcribed By: Self Edit Transcribed Date: 06/14/2024 11:29 ET Resident/PA/RADIO INTELLIGENCE OPERATOR: Milady Chilel Narrative 06/15/2024 12:40 PM EST HISTORY: Large volume ascites. TECHNIQUE: After [...] drainage. Procedure Note Aurora Meng MD - 06/15/2024 HISTORY: Large volume ascites. TECHNIQUE: After written [...] localized for drainage. IMPRESSION: Successful paracentesis of 4.7L of ascitic fluid without complications. -------- FINAL REPORT -------- Dictated By: Milady Chilel Dictated Date: 06/14/2024 11:28 ET Assigned Physician: Aurora Meng Reviewed and Electronically Signed By: Aurora Meng Signed Date: 06/15/2024 12:40 ET Workstation ID: [id number] Transcribed By: Self Edit Transcribed Date: 06/14/2024 11:29 ET Resident/PA/RADIO INTELLIGENCE OPERATOR: Milady Chilel us Cristiana RAND IMG US PROCEDURES Final Result * Lactate, with reflex (06/14/2024 5:26 AM EST) Only the most recent of3 resultswithin the time period is included. LACTIC ACID 1.6 0.4 - 2.0 mmol/L LAB CHEMISTRY METHOD 06/14/2024 6:03 AM EST [facility] Blood Venous blood specimen / Unknown Venipuncture / Unknown 06/14/2024 5:26 AM EST 06/14/2024 5:33 AM EST us Napoleon Neely MD LAB BLOOD ORDERABLES Final Re sult [facility] [address] [place] [address], [place] [phone] * Culture blood (06/14/2024 5:22 AM EST) Only the most recent of6 resultswithin the time period is included. [facility] Culture, Blood No growth at 5 days 06/19/2024 6:01 AM EST [facility] Blood Venous blood specimen / Unknown Venipuncture / Unknown 06/14/2024 5:22 AM EST 06/14/2024 5:33 AM EST us Napoleon Neely MD LAB MICROBIOLOGY - GENERAL OR DERABLES Final Result Performing Organization Address City/[facility]/ZIP Co de Phone Number [facility] [address] [place] [address], [place] [phone] * (ABNORMAL) CBC auto differential (06/14/2024 5:14 AM EST) Only the most recent of6 resultswithin the time period is included. Pathologist [facility] WBC 4.5(L) 4.8 - 10.8 K/[facility] LAB HEMETOLOGY METHOD 06/14/2024 6:00 AM EST [facility] RBC 3.30(L) 4.50 - 5.50 M/[facility] LAB HEMETOLOGY METHOD 06/14/2024 6:00 AM [facility] Hemoglobin 11.6(L) 13.5 - 17.5 g/dL LAB HEMETOLOGY METHOD 06/14/2024 6:00 AM [facility] Hematocrit 35.2(L) 42.0 - 54.0 % LAB HEMETOLOGY METHOD 06/14/2024 6:00 AM [facility] MCV 107.0(H) 79.0 - 98.0 FL LAB HEMETOLOGY METHOD 06/14/2024 6:00 AM [facility] MCH 35.3(H) 27.0 - 32.0 pcg LAB HEMETOLOGY METHOD 06/14/2024 6:00 AM [facility] MCHC 33.0 32.0 - 37.0 g/dL LAB HEMETOLOGY METHOD 06/14/2024 6:00 AM [facility] RDW 17.5(H) 11.0 - 15.0 % LAB HEMETOLOGY METHOD 06/14/2024 6:00 AM [facility] Platelets 77(L) 130 - 400 K/mcL LAB HEMETOLOGY METHOD 06/14/2024 6:00 AM [facility] Comment:previously verified by slide MPV 10.3 7.0 - 11.0 FL LAB HEMETOLOGY METHOD 06/14/2024 6:00 AM [facility] NRBC 0.0 <1.0 % LAB HEMETOLOGY METHOD 06/14/2024 6:00 AM [facility] NRBC Absolute 0.00 <0.10 K/mcL LAB HEMETOLOGY METHOD 06/14/2024 6:00 AM [facility] Neutrophils Relative 75.4 % LAB HEMETOLOGY METHOD 06/14/2024 6:00 AM [facility] Lymphocytes Relative 13.9 % LAB HEMETOLOGY METHOD 06/14/2024 6:00 AM EST [facility] Monocytes Relative 9.7 % LAB HEMETOLOGY METHOD 06/14/2024 6:00 AM [facility] Eosinophils Relative 0.4 % LAB HEMETOLOGY METHOD 06/14/2024 6:00 AM [facility] Basophils Relative 0.4 % LAB HEMETOLOGY METHOD 06/14/2024 6:00 AM [facility] Immature Granulocytes Relative 0.2 % LAB HEMETOLOGY METHOD 06/14/2024 6:00 AM [facility] Neutrophils Absolute 3.35 1.50 - 7.00 K/mcL LAB HEMETOLOGY METHOD 06/14/2024 6:00 AM [facility] Lymphocytes Absolute 0.62(L) 1.00 - 5.00 K/mcL LAB HEMETOLOGY METHOD 06/14/2024 6:00 AM [facility] Monocytes Absolute 0.43 0.20 - 1.00 K/mcL LAB HEMETOLOGY METHOD 06/14/2024 6:00 AM [facility] Eosinophils Absolute 0.02 0.00 - 0.50 K/mcL LAB HEMETOLOGY METHOD 06/14/2024 6:00 AM [facility] Basophils Absolute 0.02 0.00 - 0.20 K/mcL LAB HEMETOLOGY METHOD 06/14/2024 6:00 AM [facility] Immature Granulocytes Absolute 0.01 0.00 - 0.03 K/mcL LAB HEMETOLOGY METHOD 06/14/2024 6:00 AM [facility] Blood Venous blood specimen / Unknown Venipuncture / Unknown 06/14/2024 5:14 AM EST 06/14/2024 5:34 AM EST us Napoleon Neely MD LAB BLOOD ORDERABLES Final Re sult [facility] [address] [place] [address], [place] [phone] * ECG-Annotated (06/14/2024) Only the most recent of3 resultswithin the time period is included. Provider Onbase ECG ORDERABLES Final Result * Prostate specific antigen screen (06/13/2024 12:37 PM EST) PSA 0.18 0.00 - 4.00 ng/mL LAB CHEMISTRY METHOD 06/13/2024 2:31 PM EST [facility] Blood Venous blood specimen / Unknown Venipuncture / Unknown 06/13/2024 12:37 PM EST 06/13/2024 12:55 PM EST Narrative [facility] - 06/13/2024 2:31 PM EST The Siemens Advia Rormixaur Chemiluminescent Immunoassay is used. Results obtained with different assay methods or kits cannot be used interchangeably. Results cannot be interpreted as absolute evidence of the presence or absence of malignant disease. us Napoleon Neely MD LAB BLOOD ORDERABLES Final Re sult Performing Organization Address City/[facility]/ZIP Co de Phone Number [facility] [address] [place] [address], * (ABNORMAL) C-reactive protein (06/13/2024 12:37 PM EST) Only the most recent of2 resultswithin the time period is included. C-Reactive Protein 10.20(H) <=0.50 mg/dL LAB CHEMISTRY METHOD 06/13/2024 2:25 PM EST [facility] Blood Venous blood specimen / Unknown Venipuncture / Unknown 06/13/2024 12:37 PM EST 06/13/2024 12:55 PM EST us Napoleon Neely MD LAB BLOOD ORDERABLES Final Re sult [facility] [address] [place] [address], [place] [phone] * (ABNORMAL) Hepatic function panel (06/13/2024 12:37 PM EST) Total Protein 5.9(L) 6.0 - 8.0 g/dL LAB CHEMISTRY METHOD 06/13/2024 2:25 PM EST [facility] Albumin 2.3(L) 3.2 - 5.0 g/dL LAB CHEMISTRY METHOD 06/13/2024 2:25 PM EST [facility] Total Bilirubin 2.6(H) 0.0 - 1.4 mg/dL LAB CHEMISTRY METHOD 06/13/2024 2:25 PM [facility] Bilirubin, Direct 1.4(H) 0.0 - 0.3 mg/dL LAB CHEMISTRY METHOD 06/13/2024 2:25 PM EST [facility] Bilirubin, Indirect 1.2(H) 0.0 - 1.1 mg/dL LAB CHEMISTRY METHOD 06/13/2024 2:25 PM EST [facility] ALT (SGPT) 20 10 - 60 unit/L LAB CHEMISTRY METHOD 06/13/2024 2:25 PM EST [facility] AST (SGOT) 32 10 - 42 unit/L LAB CHEMISTRY METHOD 06/13/2024 2:25 PM EST [facility] Alkaline Phosphatase 133(H) 42 - 121 unit/L LAB CHEMISTRY METHOD 06/13/2024 2:25 PM EST [facility] Blood Venous blood specimen / Unknown Venipuncture / Unknown 06/13/2024 12:37 PM EST 06/13/2024 12:55 PM EST Napoleon Neely MD LAB BLOOD ORDERABLES Final Re sult [facility] [address] [place] [address], [place] [phone] * Troponin I high sensitivity (06/12/2024 6:44 AM EST) Only the most recent of4 resultswithin the time period is included. High Sensitivity Troponin I 17 <=79 ng/L LAB CHEMISTRY METHOD 06/12/2024 7:31 AM EST [facility] Blood Venous blood specimen / Unknown Venipuncture / Unknown 06/12/2024 6:44 AM EST 06/12/2024 6:58 AM EST Narrative [facility] - 06/12/2024 7:31 AM EST High levels of biotin in samples may falsely decrease hsTroponin values. ??Use caution when interpreting hsTroponin results in patients taking biotin who exhibit renal impairment (eGFR <60) or in patients taking more than 20 mg/day of biotin. Nayeli RAND LAB BLOOD ORDERABLES Final Resu lt [facility] [address] [place] [address], [place] [phone] * CT Abdomen Pelvis w Contrast (06/12/2024 6:28 AM EST) Only the most recent of2 resultswithin the time period is included. Anatomical Region Laterality Modality Body Computed Tomogra phy 06/12/2024 7:06 AM EST Impressions 06/12/2024 7:06 AM EST Impression: Cirrhotic liver with portal hypertension including [id number] volume ascites, splenomegaly and varices. No apparent bowel obstruction. No clear explanation for hematuria. If persistent, follow-up dedicated CT urogram suggested. Decompressed urinary bladder with Cuello catheter limiting detail. Findings suggesting panniculitis. Other [...] SMA. Detail limited on none CTA technique. ESMER not well delineated. Patent portal vein , dilated portal vein with flow direction not assessed. No pathologic adenopathy. Urinary bladder decompressed with Cuello catheter. Generalized lumbar spondylosis. Severe arthritic changes [...] SMA. Detail limited on none CTA technique. ESMER not well delineated. Patent portal vein , dilated portal vein with flow direction notassessed. No pathologic adenopathy. Urinary bladder decompressed with Cuello catheter. Generalized lumbar spondylosis. Severe arthritic changes left hip as sequela of osteonecrosis. Moderate degenerative arthritis on the left. Mild anasarca. Additional subcutaneous fat stranding and skin thickening of the lower anterior abdominal wall suggesting panniculitis. Small fat containing inguinal hernias. IMPRESSION: Impression: Cirrhotic liver with portal hypertension including [id number] volume ascites, splenomegaly and varices. No apparent bowel obstruction. No clear explanation for hematuria. If persistent, follow-up dedicatedCT urogram suggested. Decompressed urinary bladder with Cuello catheter limiting detail. Findings suggesting panniculitis. Other findings as noted. This document has been electronically signed by: Jose Underwood MD on 06/12/2024 07:06:[address] PROCEDURES Final Result [...] recommended in 3 months to assess stability. Cxqmw-ue-immlegmw size left pleural effusion and trace right [...] contour and moderate volume of ascites. Splenomegaly. Kygmx-ol-ccznjumu size left pleural effusion and trace right [...] contour and moderate volume of ascites. Splenomegaly. Kscve-ig-imnhihwj size left pleural effusion and trace right [...] recommended in 3 months to assess stability. Btnrp-eo-eyfpjgwu size left pleural effusion and trace right pleural effusion with mild subjacent atelectasis. Cardiomegaly. Mildly dilated main pulmonary artery indicating pulmonary arterial hypertension. Hepatic cirrhosis with ascites and splenomegaly. Please see CT abdomen/pelvis report for additional details. No evidence for pulmonary artery embolus. This document has been electronically signed by: Hernan Godwin MD on 06/12/2024 06:43:23 us Nayeli RAND [facility] [place] CT PROCEDURES Final Result * (ABNORMAL) Prothrombin time with INR (06/12/2024 5:19 AM EST) Only the most recent of4 resultswithin the time period is included. Protime 22.0(H) 10.6 - 13.9 sec LAB COAGULATION METHOD 06/12/2024 5:38 AM EST [facility] INR 1.8 LAB COAGULATION METHOD 06/12/2024 5:38 AM EST [facility] Blood Venous blood specimen / Unknown Venipuncture / Unknown 06/12/2024 5:19 AM EST 06/12/2024 5:22 AM EST us Nayeli RAND LAB BLOOD ORDERABLES Final Resu lt Performing Organization Address City/[facility]/ZIP Co de Phone Number [facility] [address] [place] [address], [place] [phone] * B-type natriuretic peptide (06/12/2024 5:19 AM EST) Only the most recent of2 resultswithin the time period is included. BNP 95 <=100 pcg/mL LAB CHEMISTRY METHOD 06/12/2024 6:10 AM EST [facility] Blood Venous blood specimen / Unknown Venipuncture / Unknown 06/12/2024 5:19 AM EST 06/12/2024 5:22 AM EST us Nayeli RAND LAB BLOOD ORDERABLES Final Resu lt Performing Organization Address [facility] Co de Phone Number [facility] [address] [place] [address], [place] [phone] * (ABNORMAL) Blood culture pathogens molecular study (06/12/2024 3:44 AM EST) Pathologist [facility] Pseudomonas aeruginosa Detected (A) Not Detected LAB MICROBIOLOGY METHOD 06/13/2024 7:45 AM EST [facility] Blood Venous blood specimen / Unknown Venipuncture / Unknown 06/12/2024 3:44 AM EST 06/12/2024 3:51 AM EST us Nayeli RAND LAB MICROBIOLOGY - GENERAL ORDE RABLES Final Result Performing Organization Address City/[facility]/ZIP Co de Phone Number [facility] [address] [place] [address], [place] [phone] * (ABNORMAL) Lactate (06/12/2024 3:40 AM EST) Only the most recent of6 resultswithin the time period is included. [facility] Lactate 3.2(HH) 0.4 - 2.0 mmol/L LAB CHEMISTRY METHOD 06/12/2024 4:30 AM [facility] Blood Venous blood specimen / Unknown Venipuncture / Unknown 06/12/2024 3:40 AM EST 06/12/2024 3:51 AM EST Nayeli RADN LAB BLOOD ORDERABLES Final Resu lt [facility] [address] [place] [address], [place] [phone] * (ABNORMAL) Urinalysis with reflex microscopic and culture (06/12/2024 1:15 AM EST) Only the most recent of2 resultswithin the time period is included. [facility] Specific Gunter Urine 1.007 1.003 - 1.030 LAB URINALYSIS - AUTOMATED METHOD 06/12/2024 3:41 AM [facility] pH, Urine 6.0 5.0 - 8.0 pH LAB URINALYSIS - AUTOMATED METHOD 06/12/2024 3:41 AM [facility] Leukocytes, Urine Small(A) Negative LAB URINALYSIS - AUTOMATED METHOD 06/12/2024 3:41 AM [facility] Nitrite, Urine Negative Negative LAB URINALYSIS - AUTOMATED METHOD 06/12/2024 3:41 AM [facility] Protein, Urine Negative <=Trace mg/dL LAB URINALYSIS - AUTOMATED METHOD 06/12/2024 3:41 AM [facility] Glucose, Urine Negative Negative mg/dL LAB URINALYSIS - AUTOMATED METHOD 06/12/2024 3:41 AM [facility] Ketones, Urine Negative Negative mg/dL LAB URINALYSIS - AUTOMATED METHOD 06/12/2024 3:41 AM [facility] Urobilinogen, Urine 0.2 0.2 - 1.0 mg/dL LAB URINALYSIS - AUTOMATED METHOD 06/12/2024 3:41 AM [facility] Bilirubin, Urine Negative Negative LAB URINALYSIS - AUTOMATED METHOD 06/12/2024 3:41 AM [facility] Blood, Urine Large(A) Negative LAB URINALYSIS - AUTOMATED METHOD 06/12/2024 3:41 AM [facility] RBC, Urine 156.5(H) 0 - 4 /HPF LAB URINALYSIS - AUTOMATED METHOD 06/12/2024 3:41 AM [facility] WBC, Urine 16.6(H) 0 - 4 /HPF LAB URINALYSIS - AUTOMATED METHOD 06/12/2024 3:41 AM [facility] Squamous Epithelial, Urine 9 0 - 60 /LPF LAB URINALYSIS - AUTOMATED METHOD 06/12/2024 3:41 AM [facility] Bacteria, Urine Negative Negative /HPF LAB URINALYSIS - AUTOMATED METHOD 06/12/2024 3:41 AM [facility] Hyaline Casts, Urine 0.8 0 - 3 /LPF LAB URINALYSIS - AUTOMATED METHOD 06/12/2024 3:41 AM [facility] Urine Urine specimen obtained by clean catch procedure / Unknown Non-blood Collection / Unknown 06/12/2024 1:15 AM EST 06/12/2024 2:59 AM EST us Nayeli RAND LAB URINE ORDERABLES Final Resu lt [facility] [address] [place] [address], * Pugh urine culture tube (06/12/2024 1:15 AM EST) Only the most recent of2 resultswithin the time period is included. Extra Tube Hold for add-ons. 06/12/2024 4:01 AM EST [facility] Comment:Auto resulted. Urine Urine specimen obtained by clean catch procedure / Unknown Non-blood Collection / Unknown 06/12/2024 1:15 AM EST 06/12/2024 2:59 AM EST Nayeli RAND LAB URINE ORDERABLES Final Resu lt [facility] [address] [place] [address], [place] [phone] * (ABNORMAL) Culture urine (06/12/2024 1:15 AM EST) Only the most recent of2 resultswithin the time period is included. Culture, Urine >100,000 CFU/mL Pseudomonas aeruginosa(A) SAVANNAH 06/15/2024 9:00 AM EST [facility] Comment: This is an edited result. [...] DIFFUSION Nayeli RAND LAB MICROBIOLOGY - GENERAL LAURIE OCASIO Final Result Performing Organization Address [facility]/ZIP Co de Phone Number [facility] [address] [place] [address], [place] [phone] * (ABNORMAL) Thyroid stimulating hormone (05/26/2024 6:59 AM EST) TSH 5.20(H) 0.40 - 4.00 mcIU/mL LAB CHEMISTRY METHOD 05/26/2024 1:24 PM EST [facility] Blood Venous blood specimen / Unknown Venipuncture / Unknown 05/26/2024 6:59 AM EST 05/26/2024 10:29 AM EST Gerry Barksdale LAB BLOOD ORDERABLES Final Resul t Performing Organization Address [facility]/ZIP Co de Phone Number [facility] [address] [place] [address], [place] [phone] * Folate (05/26/2024 6:59 AM EST) Folate 4.3 2.8 - 17.0 ng/ml LAB CHEMISTRY METHOD 05/26/2024 1:39 PM EST [facility] Blood Venous blood specimen / Unknown Venipuncture / Unknown 05/26/2024 6:59 AM EST 05/26/2024 10:29 AM EST Gerry Chavezniobrara LAB BLOOD ORDERABLES Final Resul t Performing Organization Address City/[facility]/ZIP Co de Phone Number [facility] [address] [place] [address], [place] [phone] * (ABNORMAL) Vitamin B12 (05/26/2024 6:59 AM EST) Vitamin B-12 1,309(H) 250 - 900 pcg/mL LAB CHEMISTRY METHOD 05/26/2024 1:39 PM EST [facility] Blood Venous blood specimen / Unknown Venipuncture / Unknown 05/26/2024 6:59 AM EST 05/26/2024 10:29 AM EST Gerry Barksdale LAB BLOOD ORDERABLES Final Resul t [facility] [address] [place] [address], * (ABNORMAL) Comprehensive metabolic panel (05/26/2024 6:59 AM EST) Only the most recent of4 resultswithin the time period is included. Sodium 133 133 - 145 mmol/L LAB CHEMISTRY METHOD 05/26/2024 1:16 PM [facility] Potassium 3.6 3.5 - 5.5 mmol/L LAB CHEMISTRY METHOD 05/26/2024 1:16 PM [facility] Chloride 95(L) 96 - 110 mmol/L LAB CHEMISTRY METHOD 05/26/2024 1:16 PM [facility] CO2 31 21 - 32 mmol/L LAB CHEMISTRY METHOD 05/26/2024 1:16 PM [facility] Anion Gap 7 3 - 11 LAB CHEMISTRY METHOD 05/26/2024 1:16 PM [facility] Glucose 116(H) 70 - 100 mg/dL LAB CHEMISTRY METHOD 05/26/2024 1:16 PM [facility] BUN 15 5 - 25 mg/dL LAB CHEMISTRY METHOD 05/26/2024 1:16 PM [facility] Creatinine 0.52(L) 0.70 - 1.30 mg/dL LAB CHEMISTRY METHOD 05/26/2024 1:16 PM [facility] eGFR 111 >=60 mL/min/1. 73m2 LAB CHEMISTRY METHOD 05/26/2024 1:16 PM [facility] Comment:Calculation based on the??Chronic Kidney Disease Epidemiology Collaboration (CKD-EPI) equation refit??without adjustment for race. BUN/Creatinine Ratio 28.8 LAB CHEMISTRY METHOD 05/26/2024 1:16 PM [facility] Calcium 8.2(L) 8.5 - 10.5 mg/dL LAB CHEMISTRY METHOD 05/26/2024 1:16 PM [facility] AST (SGOT) 27 10 - 42 unit/L LAB CHEMISTRY METHOD 05/26/2024 1:16 PM [facility] ALT (SGPT) 20 10 - 60 unit/L LAB CHEMISTRY METHOD 05/26/2024 1:16 PM [facility] Alkaline Phosphatase 139(H) 42 - 121 unit/L LAB CHEMISTRY METHOD 05/26/2024 1:16 PM [facility] Total Protein 6.0 6.0 - 8.0 g/dL LAB CHEMISTRY METHOD 05/26/2024 1:16 PM [facility] Albumin 2.3(L) 3.2 - 5.0 g/dL LAB CHEMISTRY METHOD 05/26/2024 1:16 PM [facility] Total Bilirubin 3.2(H) 0.0 - 1.4 mg/dL LAB CHEMISTRY METHOD 05/26/2024 1:16 PM [facility] Blood Venous blood specimen / Unknown Venipuncture / Unknown 05/26/2024 6:59 AM EST 05/26/2024 10:29 AM EST Gerry Barksdale LAB BLOOD ORDERABLES Final Resul t [facility] [address] [place] [address], * Vancomycin, trough (05/23/2024 12:10 PM EST) Only the most recent of3 resultswithin the time period is included. Vancomycin Trough 13.0 10.0 - 20.0 mcg/mL LAB CHEMISTRY METHOD 05/23/2024 12:59 PM EST [facility] Blood Venous blood specimen / Unknown Venipuncture / Unknown 05/23/2024 12:10 PM EST 05/23/2024 12:28 PM EST us Hue RAND LAB BLOOD ORDERABLES Final Re sult Performing Organization Address [facility]/ZIP Co de Phone Number [facility] [address] [place] [address], [place] [phone] * Lavender tube (05/23/2024 3:07 AM EST) Only the most recent of2 resultswithin the time period is included. Extra Tube Hold for add-ons. 05/23/2024 5:01 AM EST [facility] Comment:Auto resulted. Blood Venous blood specimen / Unknown 05/23/2024 3:07 AM EST 05/23/2024 3:19 AM EST us Chemo Reveles MD LAB BLOOD ORDERABLES Final Resu lt Performing Organization Address [facility]/ZIP Co de Phone Number [facility] [address] [place] [address], [place] [phone] * Vascular US duplex lower extremity venous bilateral (05/21/2024 9:14 AM EST) Anatomical Region Laterality Modality Vascular, Abdomen Ultrasound 05/21/2024 9:22 AM EST Impressions 05/21/2024 9:23 AM EST NONOCCLUSIVE THROMBUS IN THE RIGHT COMMON FEMORAL VEIN. ?? NO VENOUS THROMBOSIS IN THE LEFT LOWER EXTREMITY VEINS. -------- FINAL REPORT -------- Dictated By: ERWIN MESA Dictated Date: 05/21/2024 09:22 ET Assigned Physician: ERWIN MESA Reviewed and Electronically Signed By: ERWIN MESA Signed Date: 05/21/2024 09:23 ET Workstation ID: [id number] Transcribed By: Self Edit Transcribed Date: 05/21/2024 [...] ??Visualized calf veins are patent. Procedure Note Erwin Mesa MD - 05/21/2024 PROCEDURE: VAS US [...] VEINS. -------- FINAL REPORT -------- Dictated By: ERWIN MESA Dictated Date: 05/21/2024 09:22 ET Assigned Physician: ERWIN MESA Reviewed and Electronically Signed By: ERWIN MESA Signed Date: 05/21/2024 09:23 ET Workstation ID: [id number] Transcribed By: Self Edit Transcribed Date: 05/21/2024 09:22 ET us Chemo Reveles MD CV VASCULAR PROCEDURES Final Re sult * (ABNORMAL) Thyroid stimulating hormone with reflex to free t4 and free t3 (05/21/2024 3:17 AM EST) TSH 8.16(H) 0.40 - 4.00 mcIU/mL LAB CHEMISTRY METHOD 05/21/2024 3:59 AM EST [facility] Blood Venous blood specimen / Unknown Venipuncture / Unknown 05/21/2024 3:17 AM EST 05/21/2024 3:23 AM EST us Chemo Reveles MD LAB BLOOD ORDERABLES Final Resu lt Performing Organization Address City/[facility]/ZIP Co de Phone Number [facility] [address] [place] [address], [place] [phone] * Free thyroxine with reflex to free triiodothyronine (05/21/2024 3:17 AM EST) Free T4 1.02 0.70 - 1.80 ng/dL LAB CHEMISTRY METHOD 05/21/2024 4:25 AM EST [facility] Blood Venous blood specimen / Unknown Venipuncture / Unknown 05/21/2024 3:17 AM EST 05/21/2024 3:23 AM EST us Chemo Reveles MD LAB BLOOD ORDERABLES Final Resu lt Performing Organization Address [facility]/ZIP Co de Phone Number [facility] [address] [place] [address], [place] [phone] * Triiodothyronine free (05/21/2024 3:17 AM EST) T3, Free 249 230 - 420 pcg/dL LAB CHEMISTRY METHOD 05/21/2024 4:50 AM EST [facility] Blood Venous blood specimen / Unknown Venipuncture / Unknown 05/21/2024 3:17 AM EST 05/21/2024 3:23 AM EST us Chemo Reveles MD LAB BLOOD ORDERABLES Final Resu lt Performing Organization Address City/[facility]/ZIP Co de Phone Number [facility] [address] [place] [address], [place] [phone] * Hemoglobin A1c (05/21/2024 3:17 AM EST) Hemoglobin A1C 4.9 <6.5 % LAB CHEMISTRY METHOD 05/21/2024 1:49 PM EST [facility] Mean Bld Glu Estim. 94 mg/dL LAB CHEMISTRY METHOD 05/21/2024 1:49 PM EST [facility] Blood Venous blood specimen / Unknown Venipuncture / Unknown 05/21/2024 3:17 AM EST 05/21/2024 3:23 AM EST us Chemo Reveles MD LAB BLOOD ORDERABLES Final Resu lt [facility] [address] [place] [address], [place] [phone] * (ABNORMAL) POCT Glucose, blood (05/20/2024 8:37 AM EST) Pathologist [facility] Glucose POCT 162(H) 70 - 100 mg/dL 05/20/2024 8:37 AM EST [facility] Blood Capillary blood specimen / Unknown 05/20/2024 8:37 AM EST 05/20/2024 8:38 AM EST us Chemo Reveles MD LAB POINT OF CARE TE ST DOCKED DEVICE UNSOLICITED RESULTS Final Result [facility] [address] [place] [address], [place] [phone] * (ABNORMAL) Sedimentation rate (05/20/2024 6:09 AM EST) Pathologist [facility] Sed Rate 35(H) 0 - 20 mm/hr LAB HEMETOLOGY METHOD 05/20/2024 2:00 PM EST [facility] Blood Venous blood specimen / Unknown Venipuncture / Unknown 05/20/2024 6:09 AM EST 05/20/2024 6:32 AM EST us Chemo Reveles MD LAB BLOOD ORDERABLES Final Resu lt [facility] [address] [place] [address], * XR Chest 2 Views (05/19/2024 6:51 PM EST) Anatomical Region Laterality Modality Body Radiographic Esmer ging 05/20/2024 8:05 AM EST Impressions 05/20/2024 8:06 AM EST Small-moderate left pleural effusion. -------- FINAL REPORT -------- Dictated By: Frank Vivar Dictated Date: 05/20/2024 08:05 ET Assigned Physician: Frank Vivar Reviewed and Electronically Signed By: Frank Vivar Signed Date: 05/20/2024 08:06 ET Workstation ID: [id number] Transcribed By: Self Edit Transcribed Date: 05/20/2024 [...] Signed Date: 05/20/2024 08:06 ET Workstation ID: [id number] Transcribed By: Self Edit Transcribed Date: 05/20/2024 08:05 ET Hue RAND IMG XR PROCEDURES Final Resul t * (ABNORMAL) Lipase (05/19/2024 4:10 PM EST) [facility] Lipase 76(H) 13 - 75 unit/L LAB CHEMISTRY METHOD 05/19/2024 4:59 PM EST [facility] Blood Venous blood specimen / Unknown Venipuncture / Unknown 05/19/2024 4:10 PM EST 05/19/2024 4:25 PM EST Emily Colby Stalin Francisco DO LAB BLOOD ORDERABLES Berenice l Result Performing Organization Address City/[facility] Co de Phone Number [facility] [address] [place] [address], [place] [phone] * Alpha fetoprotein tumor marker (04/07/2024 11:53 AM EST) [facility] AFP 4.2 0.0 - 8.0 ng/mL LAB [...] the presence or absence of malignant disease. Han Sloan DO LAB BLOOD ORDERABLES Final Resul t Performing Organization Address City/[facility]/ZIP Co de Phone Number [facility] [address] [place] [address], [place] [phone] * Ferritin (04/07/2024 11:53 AM EST) Ferritin 118 26 - 388 ng/mL LAB CHEMISTRY METHOD 04/07/2024 3:00 PM EST [facility] Blood Venous blood specimen / Unknown Venipuncture / Unknown 04/07/2024 11:53 AM EST 04/07/2024 11:53 AM EST Han Sloan DO LAB BLOOD ORDERABLES Final Resul t Performing Organization Address [facility] Co de Phone Number [facility] [address] [place] [address], [place] [phone] from Last 3 Months Insurance [facility] MEDIC[facility] Member Subscriber Plan / Payer (Ef fective 2023-Present) Name:Jonny Reed Relation to Subscriber:Self Name:Jonny Reed Payer ID:[id number] Group ID:[id number] Type:Not on file Address: [place] [address] [address] [phone] Advance Directives Documents on File Type Date Recorded Patient Attending Pathologist Expl anation Advance Directives and Living Will 03/04/2024 11:52 AM Advance Directives and Living Will 03/03/2024 1:15 PM [facility] Proxy * Full Code - Default (Latest Code Status on File) Date Activated Date Inactivated Comments 06/13/2024 2:04 PM 06/16/2024 4:47 PM This is orde r is used when code status has not been discussed with the patient, or code status is otherwise unknown/unconfirmed To update the patient's code status, place a code status order. Do not modify or discontinue any currently active code status orders. * Full Code - Default Date Activated Date Inactivated Comments 05/19/2024 5:44 PM 05/25/2024 6:39 PM This is order is used when code status has not been discussed with the patient, or code status is otherwise unknown/unconfirmed To update the patient's code status, place a code status order. Do not modify or discontinue any currently active code status orders. * Full Code - Default Date Activated Date Inactivated Comments 02/26/2024 6:35 PM 03/03/2024 1:43 PM This is ord er is used when code status has not been discussed with the patient, or code status is otherwise unknown/unconfirmed To update the patient's code status, place a code status order. Do not modify or discontinue any currently active code status orders. Healthcare Agents on File Name Relationship Healthcare Agent [facility] p Communication Elinor PateBrucedayami Huntley Health Care Agent Care Teams Wicker Molded Candles Relationship Specialty Start Date End Date Dalia Harmon PA [address] [place] [address], [address] [place] [address] PCP - General 05/10/24
--- OUTSIDE RECORDS SUMMARY | 2024-06-23 12:23 | XMS_ITS | Encounter Summary ---
Author Organization [facility] Address [id number] [place] [phone] Care Team Providers Care Director Of Teenage Activities Name Role Phone Dalia Harmon Primary Care Provider [phone] Reason for Visit * Reason Comments Blood in Urine Chronic Alex w/sheng ht red blood. Last replaced 2 days ago * Auth/Cert (Routine) Specialty Diagnoses / Procedures Referred By Aliya harris Referred To Contact Diagnoses Pseudomonal bacteremia Procedures DC HOSPITAL IP/OBS CARE INITIAL MODERATE LEVEL PER DAY Napoleon Neely MD [address] [place] [phone] Phone: tel: fax: [facility] Emergency [address] [place] [address] Phone: tel: Referral ID Status Reason Start Date Expiration Date Visits Re quested Visits Authorized [id number] 1 1 Encounter Details Date Type Department Care Team (Late st Contact Info) Description 06/13/2024 12:02 PM EST - 06/16/2024 2:30 PM EST Hospital Encounter [facility] Medical Surgical Unit [address] [place] [phone] Barak Benjamin MD [address] [place] [address] Napoleon Neely MD [address] [place] [phone] Liang Uribe MD [address] [place] [address] Deborah Barahona MD [address] [place] [address] Bacteremia (Primary Dx); Alex catheter in place; Urinary tract infection associated with indwelling urethral catheter, initial encounter ([facility]); Hx of ascites; Anasarca Discharge Disposition: Home-Health Care Svc Social History Tobacco Use Types Packs/Day Years [...] Mass Index 53.75 06/13/2024 12:31 PM EST documented in this encounter Functional Status * Are you deaf or do you have serious difficulty hearing? Answer Date of Assessment Author No 06/14/2024 1:37 PM EST Yuni Valdez, RN * Are you blind or do [...] Yuni Oneill RN documented in this encounter Discharge Summaries * Deborah Barahona MD - 06/16/2024 1:07 PM EST Images from the original note were not included. 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 Blair Discharge Medications Medication List TAKE these medications albuterol 2.5 mg/0.5 mL solution for nebulization nebulizer solution Take 0.5 mL (2.5 mg total) by nebulization every 6 (six) hours if needed for shortness of breath. apixaban 5 mg tablet Commonly known as: ELIQUIS Take 1 tablet (5 mg total) by mouth 2 (two) times a day. aspirin 81 mg EC tablet Take 1 tablet (81 mg total) by mouth 1 (one) time each day. cholecalciferol 50 mcg (2,000 unit) tablet Commonly known as: VITAMIN D-3 1 tablet (2,000 Units total). ciprofloxacin 500 mg tablet Commonly known as: CIPRO Take 1.5 tablets (750 mg total) by mouth 2 (two) times a day for 10 days. furosemide 20 mg tablet Commonly known as: LASIX Take 2 tablets in the morning at 8 AM and 1 tablet in afternoon at 3 PM naloxone 4 mg/0.1 mL nasal spray Commonly known as: NARCAN Administer 1 each (4 mg total) into affected nostril(s). oxyBUTYnin XL 5 mg 24 hr tablet Commonly known as: DITROPAN-XL Take 1 tablet (5 mg total) by mouth 1 (one) time each day. * oxyCODONE 10 mg immediate release tablet Commonly known as: ROXICODONE Take 1 tablet (10 mg total) by [...] by mouth 1 (one) time each day. tamsulosin 0.4 mg 24 hr capsule Commonly known as: FLOMAX Take 1 capsule (0.4 mg total) by mouth 1 (one) time each day. zolpidem 10 mg tablet Commonly known as: AMBIEN Take 1 tablet (10 mg total) by mouth at bedtime as needed. for insomnia * This list has 1 medication(s) that are the same as other medications prescribed for you. Read thedirections carefully, and ask your doctor or other care provider to review them with you. ASK your doctor about these medications * oxyCODONE 5 mg immediate release capsule Commonly known as: OXY-IR Take 2 capsules (10 mg total) by mouth every 4 (four) hours if needed for severe pain. Max Daily Amount: 60 mg * This list has 1 medication(s) that are the same as other medications prescribed for you. Read thedirections carefully, and ask your doctor or other care provider to review them with you. Hospital Course Summary HPI: 64-year-old male with PMH of DM2, liver cirrhosis, esophageal varices, portal hypertension, thrombocytopenia, splenomegaly hypertension, hyperlipidemia, morbid obesity, BPH with chronic indwelling Alex catheter since February presents to the ED for abnormal labs - positive blood cultures Patient reports presenting to the ED few days ago due to Alex catheter not draining and very little urine output. His visiting nurse placed the Alex catheter, he states it was put in wrong and there was no urine output In the ED here at [facility] patient had Alex catheter changed. At that time patient hadCBI x 2 and states his urine cleared up. He had reported violent shakes and elevated heart rate which resolved and he was discharged home. Blood cultures are pending at that time??? He was called today for positive blood cultures and asked to return back to the ED for further treatment. He denies any prior history of hematuria. Patient is on Eliquis for hemochromatosis. Patient follows with urology, Dr. Simon at [facility] He also follows with Dr. Sloan for GI for paracentesis, his last one was April or 7.5 L were removed He reports having 1 UTI since his Alex catheter placement in February 2024 Currently feels well and denies any fever, chills, nausea, emesis, lightheaded, dizziness, abdominal pain, chest pain, shortness of breath Vitals: Patient presented tachycardic 122, currently 105, blood pressure 136/61, 95% on room air, respiratory rate 24, afebrile Labs WBC 6.9, hemoglobin 11, hematocrit 32.8, MCV 104, platelets 74,000, glucose 178, creatinine 0.65. Albumin 2.3, T. bili 2.6, direct bili 1.4, indirect 1.2, lactic 3.2, repeat 2.9. Troponin 22, 17. BNP 95 UA: + Blood, WBC 16, RBC 156. Urine culture pending Blood cultures + Gram negative bacilli CTA Chest - A 1 cm mixed density nodular right lower lobe opacity indeterminate. Could be infectious, inflammatory or neoplastic. Eqhnu-iv-vmbjrdku size left pleural effusion and trace right pleural effusion with mild subjacent atelectasis. Cardiomegaly. Mildly dilated main pulmonary artery indicating pulmonary arterial hypertension. Hepatic cirrhosis with ascites and splenomegaly. CT Abd/Pelvis w Contrast - Cirrhotic liver with portal hypertension including unxnzuca-yu-uknno volume ascites, splenomegaly and varices. No apparent bowel obstruction. No clear explanation for hematuria. If persistent, follow-up dedicated CT urogram suggested. Decompressed urinary bladder with Alex catheter limiting detail. In the ED patient received cefepime 2 g, oxycodone 10 mg p.o., normal saline IV fluids Hospital Course: 64-year-old male with PMH of DM2, liver cirrhosis, esophageal varices, portal hypertension, thrombocytopenia, splenomegaly hypertension, hyperlipidemia, morbid obesity, BPH with chronic indwelling Alex catheter since February presents to the ED for abnormal labs - positive blood cultures Sepsis Pseudomonas bacteremia Complicated UTI with Pseudomonas -Patient has chronic indwelling Alex's catheter which was changed on 06/11. Asked to come back to the hospital and blood cultures drawn in the ED came back positive for Pseudomonas Blood cultures from 06/12 positive for Pseudomonas. Started on cefepime 2 g every 8 hours. ID consult. Depending on qtc plan is to switch to oral FQ vs continue cefepime on dc. EKG ordered, No prolongation seen. 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 Sloan -History of frequent paracentesis. Patient had paracentesis done today on 06/14 and 4.7 L was removed. Negative for SBP. Can continue with increased dose of Lasix 60 mg daily ( 40mg in am and 20mg in PM ) and spironolactone 150 mg daily. Thrombocytopenia Probably with hepatic cirrhosis. Stable BPH Chronic indwelling catheter - Tamsulosin 0.4 mg daily - Oxybutynin 5 mg daily -Patient follows up with urology at [facility] however he is not happy with his urologist and planningto see another urologist outpatient. Continue Alex care. Fu with Urology Chronic pain Opiate dependence - Oxycodone 10 mg every 4 hours as needed NICOLE Morbid obesity - CPAP at night Hemochromatosis -resume Eliquis on DC Insomnia - Ambien 10 mg at bedtime as needed History of DVT-recent history of nonocclusive DVT. Will resume Eliquis home dose Pt seen by PT : recommending Home PT Physical Exam at time of Discharge BP 115/66 Pulse 99 Temp 36.5 ??C (97.7 ??F) Resp 18 Ht 1.651 m (65 ) Wt 147 kg (323 lb) BMI 53.75 kg/m?? Physical Exam General-patient appears comfortable, no acute distress, obese HEENT-NCAT Eyes-anicteric Cardiology-no significant murmur appreciated Respiratory-no significant wheezing appreciated abdomen-nontender nondistended Extremity-mild bilateral lower extremity edema with some erythema probably with underlying lymphedema Neurology-awake alert oriented to time place and person Skin-warm and dry Labs/Imaging US Paracentesis w Image Guidance Result Date: 06/15/2024 HISTORY: Large volume ascites. TECHNIQUE: After [...] volume ascites. Pocket in right lower quadrant localizedfor drainage. Successful paracentesis of 4.7L of ascitic fluid without complications. -------- FINAL REPORT -------- Dictated By: Milady Chilel Dictated Date: 06/14/2024 11:28 ET Assigned Physician: Leonel Mengviewed and Electronically Signed By: Aurora Meng Signed Date: 06/15/2024 12:40 ET Workstation ID: [id number] Transcribed By: Self Edit Transcribed Date: 06/14/2024 11:29 ET Resident/PA/CATTERY OPERATOR: Milady Chilel Lab Results Component Value Date INR 1.8 06/12/2024 INR 1.3 05/22/2024 INR 1.4 05/21/2024 Lab Results Component Value Date NA 134 06/15/2024 K 4.2 06/15/2024 CL 100 06/15/2024 CO2 30 06/15/2024 GLUCOSE 115 (H) 06/15/2024 BUN 11 06/15/2024 CREATININE 0.48 (L) 06/15/2024 CALCIUM 8.2 (L) 06/15/2024 PROT 5.9 (L) 06/13/2024 ALBUMIN 2.3 (L) 06/13/2024 BILITOT 2.6 (H) 06/13/2024 AST 32 06/13/2024 ALT 20 06/13/2024 PHOS 3.0 06/15/2024 MG 1.9 06/15/2024 ALKPHOS 133 (H) 06/13/2024 EGFR 114 06/15/2024 Lab Results Component Value Date WBC 4.1 (L) 06/15/2024 HGB 11.9 (L) 06/15/2024 HCT 35.3 (L) 06/15/2024 MCV 102.3 (H) 06/15/2024 PLT 81 (L) 06/15/2024 Recent Results (from the past week) Culture urine Collection Time: 06/12/24 1:15 AM Specimen: Urine, Clean Catch Result Value Ref Range Culture, Urine >100,000 CFU/mL Pseudomonas aeruginosa (A) Susceptibility Pseudomonas aeruginosa - SAVANNAH Ceftazidime Resistant ug/ml Meropenem Susceptible ug/ml Amikacin Susceptible ug/ml Ciprofloxacin Susceptible ug/ml Levofloxacin Susceptible ug/ml Pseudomonas aeruginosa - DISK DIFFUSION Amikacin Cefepime Susceptible Ceftazidime Ciprofloxacin Levofloxacin Meropenem Piperacillin/Tazobactam Susceptible Tobramycin Blood Culture, Peripheral Draw #1 Collection Time: 06/12/24 3:40 AM Specimen: Blood, Venous Result Value Ref Range Culture, Blood Pseudomonas aeruginosa (AA) Gram Stain Result Aerobic bottle Gram negative bacilli (AA) Blood Culture, Peripheral Draw #2 Collection Time: 06/12/24 3:44 AM Specimen: Blood, Venous Result Value Ref Range Culture, Blood Pseudomonas aeruginosa (AA) Gram Stain Result (AA) Aerobic and Anaerobic bottles Gram negative bacilli Susceptibility Pseudomonas aeruginosa - SAVANNAH Ceftazidime Resistant ug/ml Meropenem Susceptible ug/ml Ciprofloxacin Susceptible ug/ml Levofloxacin Susceptible ug/ml Pseudomonas aeruginosa - DISK DIFFUSION Cefepime Susceptible Piperacillin/Tazobactam Intermediate Blood culture pathogens molecular study Collection Time: 06/12/24 3:44 AM Specimen: Blood, Venous Result Value Ref Range Pseudomonas aeruginosa Detected (A) Not Detected Culture blood Collection Time: 06/14/24 5:14 AM Specimen: Blood, Venous Result Value Ref Range Culture, Blood No growth at 2 days Culture blood Collection Time: 06/14/24 5:22 AM Specimen: Blood, Venous Result Value Ref Range Culture, Blood No growth at 2 days Culture body fluid with gram stain Collection Time: 06/14/24 10:19 AM Specimen: Peritoneal Cavity; Peritoneal Fluid Result Value Ref Range Fluid Culture No growth at 2 days Gram Stain Result No polymorphonuclear leukocytes, No epithelial cells, and No organisms noted Imaging: Transthoracic echocardiogram (TTE) complete with PRN contrast, bubble, strain, and 3D order panel ??? Left ventricle cavity size is normal. Left ventricular systolic function is in the normal range with an ejection fraction of 55-60%. ??? Left ventricle mild concentric hypertrophy. ??? Right ventricle cavity is normal. Right ventricular systolic function is normal. ??? Aortic valve leaflets are mildly thickened. ??? The Sinus of Valsalva is dilated (4.5 cm). US Paracentesis w Image Guidance Narrative: HISTORY: Large volume ascites. TECHNIQUE: After written [...] in right lower quadrant localized for drainage. Impression: Successful paracentesis of 4.7L of ascitic fluid without complications. -------- FINAL REPORT -------- Dictated By: Milady Chilel Dictated Date: 06/14/2024 11:28 ET Assigned Physician: Aurora Meng Reviewed and Electronically Signed By: Aurora Meng Signed Date: 06/15/2024 12:40 ET Workstation ID: [id number] Transcribed By: Self Edit Transcribed Date: 06/14/2024 11:29 ET Resident/PA/CATTERY OPERATOR: Milady Chilel Follow-Up Instructions and Recommendations [facility] [address] [place] [phone] More than 30 minutes spent on the discharge summary. documented in this encounter Discharge Instructions * Discharge Instructions* Deborah Barahona MD - 06/16/2024 1:04 PM EST Pt to take ABX for 10 days Pt to FU with PCP Pt to FU with Urology as an outpt documented in this encounter Medications at Time of Discharge oxyBUTYnin XL (DITROPAN-XL) 5 mg 24 hr tablet Take 1 tablet (5 mg total) by mouth 1 (one) time each day. 06/03/2024 albuterol 2.5 mg/0.5 mL solution for nebulization nebulizer solution Take 0.5 mL (2.5 mg total) by nebulization every 6 (six) hours if needed for shortness of breath. 02/18/2024 apixaban (ELIQUIS) 5 mg tablet Take 1 tablet (5 mg total) by mouth 2 (two) times a day. aspirin 81 mg EC tablet Take 1 tablet (81 mg total) by mouth 1 (one) time each day. cholecalciferol (VITAMIN D-3) 50 mcg (2,000 unit) tablet 1 tablet (2,000 Units total). 11/19/2011 ciprofloxacin (CIPRO) 500 mg tablet Take 1.5 tablets (750 mg total) by mouth 2 (two) times a day for 10 days. 30 each 06/16/2024 furosemide (LASIX) 20 mg tablet Take 2 [...] Daily Amount: 60 mg 15 capsule 03/02/2024 oxyCODONE (ROXICODONE) 10 mg immediate release tablet Take 1 tablet (10 mg total) by mouth every 4 (four) hours if needed for severe pain. Max Daily Amount: 60 mg rosuvastatin (CRESTOR) 5 mg tablet Take 1 tablet (5 mg total) by mouth 1 (one) time each day. 03/25/2024 spironolactone (ALDACTONE) 100 mg tablet Take 1.5 tablets (150 mg total) by mouth 1 (one) time each day. 45 each 05/25/2024 tamsulosin (FLOMAX) 0.4 mg 24 hr capsule Take 1 capsule (0.4 mg total) by mouth 1 (one) time each day. zolpidem (AMBIEN) 10 mg tablet Take 1 tablet (10 mg total) by mouth at bedtime as needed. for insomnia documented as of this encounter Ordered Prescriptions Prescription Sig Dispense Quantity Refills Last Filled Start Date End Date ciprofloxacin (CIPRO) 500 mg tablet Take 1.5 tablets (750 mg total) by mouth 2 (two) times a day for 10 days. 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 Patient is on Eliquis for hemochromatosis per EMR. pellet post inspector use of anticoagulant in the form of Eliquis. Contact: The patient's clinical indicators include: Options provided: -- Secondary hypercoagulable state due to advanced age -- Secondary hypercoagulable state due to hemochromatosis -- Secondary hypercoagulable state due to history of DVT -- Other - I will add my own diagnosis -- Disagree - Not applicable / Not valid Query created by: Marii Angel on 06/16/2024 11:13 AM Electronically signed by: DEBORAH BARAHONA MD 06/18/2024 2:00 PM * Hue Jesus RN - 06/16/2024 1:59 PM EST Patient states understanding to discharge instructions. IV line removed. Patient to follow up with PCP, GI, and Uro. Patient to take full course of antibiotics. [place] driving patient home. to quill picking machine operator medication from pharmacy on the way home. All questions answered. * Saskia George RN - 06/16/2024 1:50 PM EST Problem: Cognitive: Maher Selwyn Fall Risk Goal: Last Known Fall Outcome: Adequate for Discharge Goal: Mobility requiring assistance of person or device Outcome: Adequate for Discharge Goal: Dizziness Outcome: Adequate for Discharge Goal: Medications Outcome: Adequate for Discharge Goal: Mental Status/LOC/Awareness Outcome: Adequate for Discharge Goal: Toileting Needs Outcome: Adequate for Discharge Goal: Volume and Electrolyte Status Outcome: Adequate for Discharge Goal: Communication/Sensory Outcome: Adequate for Discharge Goal: Behavior Outcome: Adequate for Discharge Problem: Skin Integrity: Pressure Injury Actual or Risk of Goal: Will not develop new pressure injury Outcome: Adequate for Discharge Goal: Skin integrity will improve Outcome: Adequate for Discharge Goal: Risk for impaired skin integrity will decrease Outcome: Adequate for Discharge Problem: Activity:Pressure Injury Actual or Risk of Goal: Mobility will improve Outcome: Adequate for Discharge Problem: Nutritional:Pressure Injury Actual or Risk of Goal: Nutritional status will improve Outcome: Adequate for Discharge Problem: Patient Specific Problem: Pressure Injury Actual or Risk of Goal: Patient Specific Outcome Outcome: Adequate for Discharge Identify possible barriers to meeting goals/advancing plan of care: IV ABX and pain control. Stability of the patient: Moderately Stable - Low risk of patient condition declining or worsening End of Shift Summary: Patient resting comfortably with stable VS. Family at bedside all day. * Addie Hernandez RN - 06/16/2024 1:44 PM EST 06/16/24 1343 Initial Transition Plan Initial Transition Plan Home Health Care Discharge Planning Living Arrangements Alone Type of Residence Private residence Assistive Devices Walker;Wheelchair Support Systems Immediate family Medication Coverage Has Med Coverage Under Insurance Plan Yes Medication Affordability No concerns related to payment for meds Anticipated Discharge Needs Discipline following for SNF placement Crtts Informed Choice Informed Choice Given? Yes Transportation Transportation at discharge Ambulance Company providing transportation [place] What day is the transport expected? 06/16/24 What time is the transport expected? 1430 Final Discharge Disposition Home Health Care Services Patient discharging home via ambulance with 47 hours of DIE CASTING MACHINE OPERATOR services and [facility], at bedside and aware * Stephany Cifuentes PT - 06/16/2024 12:30 PM EST Patient: Jonny Gordon Age: 64 y.o. Sex: male Pseudomonal bacteremia [facility] Physical Therapy Treatment Ambulation: Walking Assistance: Contact guard Device: Rolling walker Distance Ambulated (ft): 10 PLOF: Level of [place]: Independent with mobility and functional transfers Lives With: Alone Receives Help From: locker plant attendant ([id number]/WK) Type of Home: House Home Adaptive Equipment: Walker - rolling, Wheelchair-manual, Bariatric equipment, Tub seat with back, Bedside commode, Other (Comment) (stair chair) Home Layout: One level Home Access: Stairs to enter with rails DME Needs: PT Discharge Recommendation: Home PT Reason for current recommendation based on assessment: Pt demonstrates adequate mobility to return home with continued home PT to further progress gait, balance, strength and endurance to increase patient's independence in all areas of functional mobility and to reduce the risk for falls. SUBJECTIVE RN approved pt. for PT visit at this time. Pt. was educated on the PT role, understood the benefitsof working with PT, and was agreeable. 06/16/24 1230 PT Last Visit PT Received On 06/16/24 General Family/Caregiver Present Yes PT Time Calculation PT Start Time 1230 PT Stop Time 1300 PT Time Calculation (min) 30 min Precautions Medical Precautions Fall Risk Safety Interventions Call ratliff within reach;ID band on;Side rails up x1;Bed alarm RUE Weight Bearing Status Full LUE Weight Bearing Status Full RLE Weight Bearing Status Full LLE Weight Bearing Status As Tolerated Oxygen Therapy Oxygen Therapy None (Room air) O2 Delivery Method CPAP mask Pain Assessment Pain Location Hip Pain Orientation Left Cognition Following Commands Follows all commands and directions without difficulty Static Sitting Balance Static Sitting-Level of Assistance Supervision Static Standing Balance Static Standing-Level of Assistance Contact guard Static Standing-Balance Support Right upper extremity supported;Left upper extremity supported Dynamic Standing Balance Dynamic Standing-Level of Assistance Contact guard Dynamic Standing-Balance Ambulation Dynamic Standing-Balance Support Right upper extremity supported;Left upper extremity supported Bed Mobility Sitting to Lying Assistance Moderate assistance Lying to Sitting Assistance Moderate assistance Transfers Sit to Stand Assistance Minimum assistance Ambulation Walking Assistance Contact guard Device Rolling walker Distance Ambulated (ft) 10 Stairs Stairs Assistance Moderate assistance Number of Stairs 1 Procedures Procedures Therapeutic Activity Therapeutic Activity Therapeutic Activity Time Entry 30 Therapeutic Activity 1 bed mobility training: supine<->sitting requiring vcs and full ble assist; (transfer training: sit-stand at rwalker, vcs for hand placememnt, min assist) Therapeutic Activity 2 standing supported at rwalker, cga x 1 min intervals Therapeutic Activity 3 functional mobiity training with rwalker, cga for progressive distance up to10 ft, with antalgic gait r/t Lhip pain/ Therapeutic Activity 4 attempted to step up on 6 inch step with rwalker, requiring mod assist PT Assessment PT Assessment Results Decreased strength;Decreased range of motion;Decreased endurance;Impaired balance;Impaired gait;Decreased mobility;Pain Prognosis Fair Medical Staff Made Aware Yes Comments pt to dc home with 47 +hours of DIE CASTING MACHINE OPERATOR care, . and recommending home PT services Plan PT Discharge Recommendations Home PT PT - OK to Discharge Yes PLAN Acute Care Plan: Treatment/Interventions: ADL retraining, Functional transfer training, UE strengthening/ROM, LE strengthening/ROM, Endurance training, Patient/family training, Equipment eval/education, Bed mobility,Gait training, Continued evaluation, Balance training PT Plan: Skilled PT PT Frequency: 2-5 days per week PT Discharge Recommendations: Home PT Time Spent: PT Time Calculation PT Start Time: 1230 PT Stop Time: 1300 PT Time Calculation (min): 30 min Time Entry: PT Therapeutic Procedures Time Entry Therapeutic Activity Time Entry: 30 Goals: Encounter Problems Encounter Problems (Active) Template: Physical Therapy Problem: PT Short Term Goals Dates: Start: 06/15/24 Goal: pt will move supine-sitting modified independently/ Dates: Start: 06/15/24 Expected End: 06/18/24 Outcomes Date/Time User Outcome 06/16/24 1428 Stephany Cifuentes PT Not Progressing Goal: pt will transfer with rwalker, stand by assist Dates: Start: 06/15/24 Expected End: 06/18/24 Outcomes Date/Time User Outcome 06/16/24 1428 Stephany Cifuentes PT Progressing Encounter Problems (Resolved) There are no resolved problems. EDUCATION Education Documentation Home Exercise Program, taught by Stephany Cifuentes PT at 06/16/2024 2:29 PM. Learner: Patient Readiness: Acceptance Method: Explanation Response: Verbalizes Understanding Comment: recommended home PT Mobility Training, taught by Stephany Cifuentes PT at 06/16/2024 2:29 PM. Learner: Patient Readiness: Acceptance Method: Explanation Response: Verbalizes Understanding Comment: recommended home PT Education Comments No comments found. * Sisi Barber RN - 06/16/2024 4:37 AM EST Problem: Cognitive: Maher Selwyn Fall Risk Goal: Last Known Fall 06/16/[id number] by Sisi Hernandez RN Outcome: Progressing 06/16/2024436 by Sisi Hernandez RN Outcome: Progressing Goal: Mobility requiring assistance of person or device 06/16/2024436 by Sisi Hernandez RN Outcome: Progressing 06/16/2024436 by Sisi Hernandez RN Outcome: Progressing Goal: Dizziness 06/16/2024436 by Sisi Hernandez RN Outcome: Progressing 06/16/2024 0437 by Sisi Hernandez RN Outcome: Progressing Goal: Medications Outcome: Progressing Goal: [...] Goal: Patient Specific Outcome Outcome: Progressing Goals: To continue with plan of care: treat UTI with IV Abx and pt's ascites Identify possible barriers to meeting goals/advancing plan of care: + BC pseudomonas; liver cirrhosis Stability of the patient: Moderately Stable - Low risk of patient condition declining or worsening End of Shift Summary: Pt alert and cooperative with care; vss. Oxycodone given at beginning of shift for R hip pain with positive effect; pt slept well overnight. IVP cefepime given as ordered q8h. BLE chronic lymphodema, elevated onto pillow. * Liang Uribe MD - 06/16/2024 12:38 AM EST [facility] Provider Response Note PATIENT: JONNY GORDON : 1960 ADMIT DATE: 06/13/2024 2:04 PM DISCH DATE: RESPONDING PROVIDER #: [id number] PROVIDER RESPONSE TEXT: The two conditions are due to or associated. QUERY TEXT: Please clarify in documentation the relationship, if any, between Complicated UTI with Pseudomonas and chronic indwelling Alex catheter since February presents. Such as: H&P 06/13/2024 (1) HPI: In the ED here at [facility] patient had Alex catheter changed... morbid obesity, BPH with chronic indwelling Alex catheter since February presents to the ED for abnormal labs - positive blood cultures Patient reports presenting to the ED few days ago due to Alex catheter not draining and very little urine output. His visiting nurse placed the Alex catheter, he states it was put in wrong and there was no urine output In the ED here at [facility] patient had Alex catheter changed. At that time patient hadCBI x 2 and states his urine cleared up. He had reported violent shakes and elevated heart rate which resolved and he was discharged home. Blood cultures are pending at that time? He was called today for positive blood cultures and asked to return back to the ED for further treatment. He denies any prior history of hematuria. Patient is on Eliquis for hemochromatosis. Patient follows with urology, Dr. Simon at [facility] He also follows with Dr. Sloan for GI for paracentesis, his last one was April or 7.5 L were removed He reports having 1 UTI since his Alex catheter placement in February 2024 . Progress Notes 06/14/2024 morbid obesity, BPH with chronic indwelling Alex catheter since February presents to the ED for abnormal labs - positive blood cultures Sepsis Pseudomonas bacteremia Complicated UTI with Pseudomonas -Patient has chronic indwelling Alex's catheter which was changed on 06/11. Asked to come back to the hospital and blood cultures drawn in the ED came back positive for Pseudomonas Blood cultures from 06/12 positive for Pseudomonas. Started on cefepime 2 g every 8 hours. ID consult Contact: The patient's clinical indicators include: Options provided: -- Conditions are due to or associated -- Unrelated to each other -- Other - I will add my own diagnosis -- Disagree - Not applicable / Not valid Query created by: Marii Angel on 06/15/2024 5:43 PM Electronically signed by: LIANG URIBE MD 06/16/2024 12:37 AM * Flor Blair MD - 06/15/2024 11:01 AM EST Jonny Gordon is here for { Blood in Urine (Chronic Alex w/bright red blood. Last replaced 2 days ago) Subjective Started having hematuria again.Tolerating Abx, denies any other complaints. Review of Systems Review of Systems Constitutional: Negative. HENT: Negative. Respiratory: Negative. Cardiovascular: Negative. Gastrointestinal: Negative. Genitourinary: Positive for hematuria. Musculoskeletal: Negative. Skin: Negative. Neurological: Negative. Physical Examination: Vitals: Visit Vitals BP 122/63 (BP Location: Left arm, Patient Position: Lying) Pulse 82 Temp 36.1 ??C (96.9 ??F) (Temporal) Resp 17 Physical Exam Vitals reviewed. Constitutional: Appearance: Normal [...] No tenderness. Abdominal: General: Abdomen is flat. There is distension. Palpations: Abdomen is soft. There is no mass. Tenderness: There is no abdominal tenderness. There is no right CVA tenderness, left CVA tenderness, guarding or rebound. Hernia: No hernia is present. Skin: General: Skin is warm and dry. Findings: No rash. Neurological: Mental Status: He is alert. Objective Recent Lab Results: Lab Results Component Value Date WBC 4.1 (L) 06/15/2024 RBC 3.50 (L) 06/15/2024 HGB 11.9 (L) 06/15/2024 HCT 35.3 (L) 06/15/2024 MCV 102.3 (H) 06/15/2024 MCHC 33.7 06/15/2024 RDW 17.0 (H) 06/15/2024 PLT 81 (L) 06/15/2024 MPV 11.0 06/15/2024 NRBC 0.0 06/15/2024 DIFF Lab Results Component Value Date LYMPHOPCT 13.9 06/14/2024 NEUTROABS 3.35 06/14/2024 LYMPHSABS 0.62 (L) 06/14/2024 MONOABS 0.43 06/14/2024 EOSABS 0.02 06/14/2024 BASOSABS 0.02 06/14/2024 IMMGRANABS 0.01 06/14/2024 RETIC No results found for: RETIC , RETICCTPCT Lab Results Component Value Date BLOODCX No growth at 24 hours 06/14/2024 BLOODCX No growth at 24 hours 06/14/2024 URINECX >100,000 CFU/mL Pseudomonas aeruginosa (A) 06/12/2024 Recent Results (from the past week) Culture urine Collection Time: 06/12/24 1:15 AM Specimen: Urine, Clean Catch Result Value Ref Range Culture, Urine >100,000 CFU/mL Pseudomonas aeruginosa (A) Susceptibility Pseudomonas aeruginosa - SAVANNAH Ceftazidime Resistant ug/ml Meropenem Susceptible ug/ml Amikacin Susceptible ug/ml Ciprofloxacin Susceptible ug/ml Levofloxacin Susceptible ug/ml Pseudomonas aeruginosa - DISK DIFFUSION Amikacin Cefepime Susceptible Ceftazidime Ciprofloxacin Levofloxacin Meropenem Piperacillin/Tazobactam Susceptible Tobramycin Blood Culture, Peripheral Draw #1 Collection Time: 06/12/24 3:40 AM Specimen: Blood, Venous Result Value Ref Range Culture, Blood Pseudomonas aeruginosa (AA) Gram Stain Result Aerobic bottle Gram negative bacilli (AA) Blood Culture, Peripheral Draw #2 Collection Time: 06/12/24 3:44 AM Specimen: Blood, Venous Result Value Ref Range Culture, Blood Pseudomonas aeruginosa (AA) Gram Stain Result (AA) Aerobic and Anaerobic bottles Gram negative bacilli Susceptibility Pseudomonas aeruginosa - SAVANNAH Ceftazidime Resistant ug/ml Meropenem Susceptible ug/ml Ciprofloxacin Susceptible ug/ml Levofloxacin Susceptible ug/ml Blood culture pathogens molecular study Collection Time: 06/12/24 3:44 AM Specimen: Blood, Venous Result Value Ref Range Pseudomonas aeruginosa Detected (A) Not Detected Culture blood Collection Time: 06/14/24 5:14 AM Specimen: Blood, Venous Result Value Ref Range Culture, Blood No growth at 24 hours Culture blood Collection Time: 06/14/24 5:22 AM Specimen: Blood, Venous Result Value Ref Range Culture, Blood No growth at 24 hours Culture body fluid with gram stain Collection Time: 06/14/24 10:19 AM Specimen: Peritoneal Cavity; Peritoneal Fluid Result Value Ref Range Gram Stain Result No polymorphonuclear leukocytes, No epithelial cells, and No organisms noted Recent Imaging Findings: US Paracentesis w Image Guidance Result Date: 06/14/2024 Narrative: HISTORY: Large volume ascites. TECHNIQUE: After written informed consent was obtained the patient was placed supine on the ultrasound stretcher and multiple images were obtained for characterization and localization of ascites. The skin was marked, prepped and draped in the usual sterilefashion. 2% lidocaine was used as local anesthetic. A paracentesis needle was advanced under gentlesuction. When fluid aspirated the paracentesis catheter was threaded over the needle into the ascitic fluid. The needle was removed and the catheter was attached to tubing and then vacuum bottles. After completion of drainage the catheter was removed and a bandage was applied. The patient toleratedthe procedure well and left the department in stable condition without any immediate complications.FINDINGS: Initial ultrasound images demonstrate large volume ascites. Pocket in right lower quadrant localized for drainage. Impression: Successful paracentesis of 4.7L of ascitic fluid without complications. -------- PRELIMINARY REPORT -------- Dictated By: Milady Chilel Dictated Date: 06/14/2024 11:28 ET Assigned Physician: Aurora Meng Reviewed and Electronically Signed By: Signed Date: ET Workstation ID: [id number] Transcribed By: Self Edit Transcribed Date: 06/14/2024 11:29 ET Resident/PA/CATTERY OPERATOR: Milady Chilel CT Abdomen Pelvis w Contrast Result Date: 06/12/2024 Narrative: INDICATION: pain, hematuria CT abdomen and pelvis with contrast Comparison: CT - CT ANGIO CHEST WO AND OR W CONTRAST - 06/12/24 06:15 EST US - US ABD LIMITED - 02/26/24 19:13 EST Findings: Lower chest detailed separately. Cirrhotic liver with moderate to large volume ascites. No focal liver lesion evident. No opaque gallstones or biliary dilatation. Mildly atrophic pancreas without focalabnormality. Duodenal diverticulum distal segment 2 adjacent to [...] direction not assessed. No pathologic adenopathy. Urinary bladderdecompressed with Alex catheter. Generalized lumbar spondylosis. Severe arthritic changes left hipas sequela of osteonecrosis. Moderate degenerative arthritis on the left. Mild anasarca. Additionalsubcutaneous fat stranding and skin thickening of the lower anterior abdominal wall suggesting panniculitis. Small fat containing inguinal hernias. Impression: Impression: Cirrhotic liver with portal hypertension including ghaumpvq-[id number]-csfee volumeascites, splenomegaly and varices. No apparent bowel obstruction. No clear explanation for hematuria. If persistent, follow-up dedicated CT urogram suggested. Decompressed urinary bladder with Alex catheter limiting detail. Findings suggesting panniculitis. Other findings as noted. This document has been electronically signed by: Jose Underwood MD on 06/12/2024 07:06:20 CT Angio Chest wo and/or w Contrast Result Date: 06/12/2024 Narrative: INDICATION: tachycardia, sob, recent dvt CT angiography [...] contour and moderate volume of ascites. Splenomegaly. Qxvfa-nw-vgnsewds size left pleural effusion and trace right pleural effusion. Subjacent airspace opacities most likely atelectasis. There is a 1 cm mixed density right lowerlobe nodular opacity on series 6, image 38/61. Mild emphysematous changes. Spondylotic changes. Impression: A 1 cm mixed density nodular right lower lobe opacity indeterminate. Could be infectious, inflammatory or neoplastic. Follow-up chest CT is recommended in 3 months to assess stability. Xwwkz-jl-woaojmuy size left pleural effusion and trace right pleural effusion with mild subjacent atelectasis. Cardiomegaly. Mildly dilated main pulmonary artery indicating pulmonary arterial hypertension. Hepatic cirrhosis with ascites and splenomegaly. Please see CT abdomen/pelvis report for additional details. No evidence for pulmonary artery embolus. This document has been electronically signed by: Hernan Godwin MD on 06/12/2024 06:43:23 Vascular US duplex lower extremity venous bilateral Result Date: 05/21/2024 Narrative: PROCEDURE: VAS US DUPLEX LOWER EXT VENOUS BILAT INDICATION: Edema TECHNIQUE: 2-D and color Doppler imaging of the lower extremity venous vasculature with compression and augmentation maneuvers. COMPARISON: No priors available. FINDINGS: RIGHT: Nonocclusive thrombus in the right common femoral vein. Remainder of the right lower extremity veins are patent where visualized. LEFT: There isnormal flow, compression, and augmentation from the common femoral through the popliteus. Visualized calf veins are patent. Impression: NONOCCLUSIVE THROMBUS IN THE RIGHT COMMON FEMORAL VEIN. NO VENOUS THROMBOSIS IN THE LEFT LOWER EXTREMITY VEINS. -------- FINAL REPORT -------- Dictated By: JENNIFER BRONSON Dictated Date: 05/21/2024 09:22 ET Assigned Physician: JENNIFER BRONSON Reviewed and Electronically Signed By: JENNIFER BRONSON Signed Date: 05/21/2024 09:23 ET Workstation ID: [id number] Transcribed By: Self Edit Transcribed Date:05/21/2024 09:22 ET XR Chest 2 Views Result Date: 05/20/2024 Narrative: PROCEDURE: PA and lateral radiographs of the chest. HISTORY: chest pain. COMPARISON: 09/23/2008. FINDINGS: There is a small left moderate layering left pleural effusion which is new compared with the previous study. A small right pleural effusion seen on the previous study is no longer present. Heart size is normal. Atherosclerotic calcification of the aorta. No pneumothorax. Pulmonaryvasculature appears normal. Degenerative changes of the spine and shoulders. Impression: Small-moderate left pleural effusion. -------- FINAL REPORT -------- Dictated By: Frank iVvar Dictated Date: 05/20/2024 08:05 ET Assigned Physician: Frank Vivar Reviewed and Electronically Signed By: Frank Vivar Signed Date: 05/20/2024 08:06 ET Workstation ID: [id number] Transcribed By: Self Edit Transcribed Date: 05/20/2024 08:05 ET Assessment/Plan: Jonny Gordon is a 64 y.o. male who has a past medical history of Anxiety (04/13/2018), Benign colonicpolyp (12/12/2014), Chronic allergic conjunctivitis (04/13/2018), Cirrhosis of liver (CMS/HCC) (12/03/2017), Depression with anxiety (12/12/2014), Diabetes mellitus type 2, uncomplicated (CMS/HCC) (12/12/2014), Diverticulosis (05/29/2010), Erosive gastritis (10/13/2017), Esophageal varices ([facility]/HCC) (12/03/2017), Hyperlipidemia (12/12/2014), Hypertension (12/14/2014), Insomnia (04/13/2018), Internal hemorrhoids (07/27/2010), Iron overload syndrome (12/03/2017), Morbid obesity ([facility]/HCC) (09/10/2017), Obstructive sleep apnea (05/21/2016), Thoracic or lumbosacral neuritis or radiculitis (09/13/2011), and Vitamin D deficiency (07/27/2012).. The patient was admitted to the hospital on 06/13/2024 for positive bloodC/S. The pt was recently discharged from [facility] on 05/25 for UI. He then ended up in rehab and then was discharged to home. A few hours after he got home he noted leakage from his alex, his visiting nurse came the next day and placed a new alex, unfortunately there was no urine OP and so he called EMSand was found to have significant bleeding and clots, he was brought to the ER and was found that the Alex was misaligned. He underwent CBI and then discharged from ER. Unfortunately, his blood C/S turned positive for PSAR. He was started on Cefepime and Levaquin. CT abdomen revealed no acute findings. The t also underwent paracentesis which was neg for SBP. Of note, I last saw the pt in Aprilduring his previous hospitalisation and had ecommended evaluation for SPT as his alex frequently malfunctions. . The ID service has been consulted for management during this patient's hospital stay. Sepsis 2/2 Pseudomonas bacteremia 2/2 UTI Recurrent alex dysfunction Cirrhosis, concern for SBP, ruled out Continue Cefepime 2 g Q8 If Qtc acceptable, can go on PO Cipro Should be treated for 2 weeks SBP ruled out, ANC less than 250 Should be evaluated by Urology for SPT as has had multiple episodes of Alex dysfunction Recommendations: Continue Cefepime 2 g Q8, check qtc, if acceptable can be discharged on PO Cipro 750 mg BID, EOT 06/26, otherwise will need to go on IV Cefepime 2 g Q8, EOT 06/26, please check weekly CBC and BMP and faxto my office at [phone] Recommend Urology consult, the pt has had multiple issues with his alex in the past and is now back within 1 month for an infection, strongly recommend evaluating for SPT Isolation: none needed ID to sign off I personally spent 35 minutes in this encounter. This included performing a detailed chart review, reviewing and independently interpreting labs ordered by other providers, performing a history and physical, counseling this patient/family, discussing the case with the primary team , coordinating his /her/their plan of care and performing complex medical decision making. Please note that this note has been completed with the help of voice recognition dictation software, as such there may be certain words that may be substituted or written in error error based on the voice-recognition tool, please contact me to clarify if any confusion * Stephany Cifuentes, PT - 06/15/2024 10:20 AM EST Patient: Jonny Gordon Age: 64 y.o. Sex: male Pseudomonal bacteremia [facility] Physical Therapy Evaluation PLOF: Level of Sullivan: Independent with mobility and functional transfers Lives With: Alone Receives Help From: locker plant attendant (47HRS/WK) Type of Home: House Home Adaptive Equipment: Walker - rolling, Wheelchair-manual, Bariatric equipment, Tub seat with back, Bedside commode, Other (Comment) (stair chair) Home Layout: One level Home Access: Stairs to enter with rails DME Needs: PT Discharge Recommendation: [facility] facility placement, (however pt would like to return home and has 47 hours of ground surveillance systems operator care. Reason for current recommendation based on assessment: Based on pt's current level of function, pt is not safe to return home at this time and will need skilled PT interventions to regain strength and mobility. I am recommending skilled subacute rehab at d/c to address impairments, progress mobility, lower fall risk, reduce caregiver burden, and return to prior level of function. SUBJECTIVE RN approved pt. for PT visit at this time. Pt. was educated on the PT role, understood the benefitsof working with PT, and was agreeable. Past Medical History: Diagnosis Date Anxiety 04/13/2018 [...] COLONOSCOPY N/A PROCEDURE: HISTORICAL COLONOSCOPY ESOPHAGOGASTRODUODENOSCOPY PROCEDURE: DC ESOPHAGOGASTRODUODENOSCOPY TRANSORAL DIAGNOSTIC OTHER SURGICAL HISTORY Right PROCEDURE: DC STAB PHLEBT VARICOSE VEINS 1 XTR > 20 INCS 06/15/24 1020 General Family/Caregiver Present Yes PT Time Calculation PT Start Time 1040 PT Stop Time 1120 PT Time Calculation (min) 40 min Precautions Medical Precautions Fall Risk Safety Interventions Call ratliff within reach;ID band on;Side rails up x1;Bed alarm RUE Weight Bearing Status Full LUE Weight Bearing Status Full RLE Weight Bearing Status Full LLE Weight Bearing Status As Tolerated Oxygen Therapy Oxygen Therapy None (Room air) O2 Delivery Method CPAP mask Pain Assessment Pain Assessment 0-10 Pain Score 6 Pain Type Acute pain Pain Location Hip Pain Orientation Left Multiple Pain Sites Two Pain 2 Pain Location 2 Back (abdomen) Cognition Overall Cognitive Status WFL Following Commands Follows all commands and directions without difficulty Home Living Type of Home House Lives With Alone Home Adaptive Equipment Walker - rolling;Wheelchair-manual;Bariatric equipment;Tub seat with back;Bedside commode;Other (Comment) (stair chair) Home Layout One level Home Access Stairs to enter with rails Entrance Stairs-Rails Rail on both sides Entrance Stairs-Number of Steps 1 Prior Function Level of Sullivan Independent with mobility and functional transfers Ambulation Status Household ambulator Receives Help From locker plant attendant (47HRS/WK) Indoor Mobility Assistance Needed Some Help Stairs Assistance Independent Prior Device Use Walker;Manual wheelchair Which is your dominant hand? Right Activity Tolerance Endurance Tolerates 10 - 20 min exercise with multiple rests Activity Tolerance Comments limited by pain and active bleeding AT Catheter site Static Sitting Balance Static Sitting-Level of Assistance Standby assistance Dynamic Sitting Balance Dynamic Sitting-Level of Assistance Contact guard Static Standing Balance Static Standing-Level of Assistance Contact guard Static Standing-Balance Support Right upper extremity supported;Left upper extremity supported Dynamic Standing Balance Dynamic Standing-Level of Assistance Minimum assistance Dynamic Standing-Balance Ambulation Dynamic Standing-Balance Support Right upper extremity supported;Left upper extremity supported Bed Mobility Sitting to Lying Assistance Moderate assistance Sitting to Lying Deficit Assist lifting right leg onto bed;Assist lifting left leg onto bed Lying to Sitting Assistance Moderate assistance Lying to Sitting Deficit Assist lifting left leg off of bed;Assist lifting right leg off of bed;Assist to scoot to edge of bed Transfers Sit to Stand Assistance Minimum assistance Sit to Stand Deficit Steadying;Verbal cueing;Increased time to complete;Assist for lift off Ambulation Walking Assistance Contact guard Walking Deficit Verbal cueing;Steadying;Supervision/safety awareness;Increased time to complete;Assist for weight shifting;Limited endurance;Impaired balance;LE weakness Device Rolling walker Distance Ambulated (ft) 7 Comments ambulation limited by bleeding at catheter site Stairs 1 step (curb): Assistance Not attempted, medical/safety concerns RUE Assessment RUE Assessment Impaired LUE Assessment LUE Assessment Impaired RLE Assessment RLE Assessment Impaired LLE Assessment LLE Assessment Impaired PT Assessment PT Assessment Results Decreased strength;Decreased endurance;Impaired balance;Impaired gait;Decreased mobility;Obesity;Decreased skin integrity;Pain Prognosis Fair Evaluation/Treatment Tolerance Patient limited by pain (evlauation limited by bleeding at catheter) Medical Staff Made Aware Yes Plan Treatment/Interventions ADL retraining;Functional transfer training;UE strengthening/ROM;LE strengthening/ROM;Endurance training;Patient/family training;Equipment eval/education;Bed mobility;Gait training;Continued evaluation;Balance training PT Plan Skilled PT PT Frequency 2-5 days per week PT Discharge Recommendations [facility] facility placement PT - Evaluation Status Complete PT Evaluation Time Entry PT Evaluation (Moderate) Time Entry 40 ASSESSMENT Based on pt's current level of function, pt is not safe to return home at this time and will need skilled PT interventions to regain strength and mobility. I am recommending skilled subacute rehab atd/c to address impairments, progress mobility, lower fall risk, reduce caregiver burden, and returnto prior level of function. Physical therapy is necessary to continue to work toward goals of strengthening, bed mobility, transfers, balance and gait training to increase patient's independence in all areas of functional mobility. PT Assessment PT Assessment Results: Decreased strength, Decreased endurance, Impaired balance, Impaired gait, Decreased mobility, Obesity, Decreased skin integrity, Pain Prognosis: Fair Evaluation/Treatment Tolerance: Patient limited by pain (evlauation limited by bleeding at catheter) Medical Staff Made Aware: Yes PLAN Acute Care Plan: Treatment/Interventions: ADL retraining, Functional transfer training, UE strengthening/ROM, LE strengthening/ROM, Endurance training, Patient/family training, Equipment eval/education, Bed mobility,Gait training, Continued evaluation, Balance training PT Plan: Skilled PT PT Frequency: 2-5 days per week PT Discharge Recommendations: [facility] facility placement Encounter Problems Encounter Problems (Active) Template: Physical Therapy Problem: PT Short Term Goals Dates: Start: 06/15/24 Goal: pt will move supine-sitting modified independently/ Dates: Start: 06/15/24 Expected End: 06/18/24 Goal: pt will transfer with rwalker, stand by assist Dates: Start: 06/15/24 Expected End: 06/18/24 Encounter Problems (Resolved) There are no resolved problems. EDUCATION Education Documentation Home Exercise Program, taught by Stephany Cifuentes PT at 06/15/2024 12:17 PM. Learner: Patient Readiness: Acceptance Method: Explanation Response: Verbalizes Understanding Comment: discussed POC while at [facility] Mobility Training, taught by Stephany Cifuentes PT at 06/15/2024 12:17 PM. Learner: Patient Readiness: Acceptance Method: Explanation Response: Verbalizes Understanding Comment: discussed POC while at [facility] Education Comments No comments found. Stephany Cifuentes PT * Sisi Barber RN - 06/15/2024 3:29 AM EST Problem: Cognitive: Maher Selwyn Fall [...] Goal: Patient Specific Outcome Outcome: Progressing Goals: To continue to treat UTI and ascites Identify possible barriers to meeting goals/advancing plan of care: Hx of complicated UTI; BC + pseudomonas Stability of the patient: Moderately Unstable - Medium risk of patient condition declining or worsening End of Shift Summary: Pt alert and cooperative with care; no c/o pain. VSS. IVP cefepime given as ordered. Alex cath draining elda colored urine. Rings appropriately; sleeping at this time. * Liang Uribe MD - 06/14/2024 4:30 PM EST Images from the original note were not included. [facility] PROGRESS NOTE Date: 06/14/2024 Author: Liang Uribe MD Patient ID: Jonny Gordon is a 64 y.o. male : 1960 MR#: [id number] SUBJECTIVE Subjective Patient seen and examined bedside this morning. Reports pain in groin area especially with micturition. Denies any chest pain shortness of breath nausea vomiting palpitation or dizziness. Patient wason BiPAP when I saw him. Sister present bedside Objective Allergy- Codeine, Nystatin, and Semaglutide OBJECTIVE Vitals: 06/14/24 0113 06/14/24 0522 06/14/24 1017 06/14/24 1507 BP: 105/57 (!) 107/47 121/70 116/59 BP Location: Left arm Left arm Left arm Patient Position: Sitting Sitting Sitting Pulse: 78 87 86 87 Resp: Temp: 36.6 ??C (97.9 ??F) 36.3 ??C (97.3 ??F) TempSrc: Temporal SpO2: 97% 98% 94% 97% Weight: Height: Temp (24hrs), Av.6 ??C (97.8 ??F), Min:36.3 ??C (97.3 ??F), Max:36.8 ??C (98.3 ??F) Physical Exam General-patient appears comfortable, no acute distress, obese HEENT-NCAT Eyes-anicteric Cardiology-no significant murmur appreciated Respiratory-no significant wheezing appreciated abdomen-nontender nondistended Extremity-mild bilateral lower extremity edema with some erythema probably with underlying lymphedema Neurology-awake alert oriented to time place and person Skin-warm and dry Lab Results: CBC BMP Results from last 7 days Lab Units 06/14/2451306/13/24123606/11/24 2314 WBC AUTO K/mcL 4.5* 6.9 5.0 HEMOGLOBIN g/dL 11.6* 11.0* 12.5* HEMATOCRIT % 35.2* 32.8* 38.0* PLATELETS K/mcL 77* 74* 85* LYMPHS PCT AUTO % 13.9 5.5 4.4 MONO PCT AUTO % 9.7 6.4 1.4 EOS PCT AUTO % 0.4 0.1 0.0 Results from last 7 days Lab Units 06/14/2451306/13/24 1237 06/11/24 2314 SODIUM mmol/L 133 133 138 POTASSIUM mmol/L 3.8 4.0 4.4 CHLORIDE mmol/L 99 102 102 CO2 mmol/L 31 26 26 ANION GAP 3 5 10 BUN mg/dL 13 13 12 CREATININE mg/dL 0.56* 0.65* 0.80 CALCIUM mg/dL 8.2* 8.2* 8.7 MAGNESIUM mg/dL 1.9 -- -- Results from last 7 days Lab Units 06/14/24 0514 06/13/24 1237 06/11/24 2314 GLUCOSE mg/dL 131* 178* 139* Results from last 7 days Lab Units 06/13/24 1237 AST unit/L 32 ALT unit/L 20 Scheduled Medications PRN Medications IV Medications atorvastatin, 20 mg, Nightly cefepime, 2 g, q8h cholecalciferol, 2,000 Units, Daily furosemide, 20 mg, q24h furosemide, 40 mg, Daily oxyBUTYnin XL, 5 mg, Daily polyetheylene glycol, 17 g, Daily sodium chloride, 10 mL, BID spironolactone, 150 mg, Daily tamsulosin, 0.4 mg, Daily acetaminophen, 650 mg, q8h PRN magnesium hydroxide, 30 mL, Daily PRN naloxone, 0.04 mg, PRN oxyCODONE, 10 mg, q4h PRN sodium chloride, 10 mL, PRN zolpidem, 10 mg, Nightly PRN ASSESSMENT & PLAN Assessment/Plan Principal Problem: Pseudomonal bacteremia No problem-specific Assessment & Plan notes found for this encounter. 64-year-old male with PMH of DM2, liver cirrhosis, esophageal varices, portal hypertension, thrombocytopenia, splenomegaly hypertension, hyperlipidemia, morbid obesity, BPH with chronic indwelling Alex catheter since February presents to the ED for abnormal labs - positive blood cultures Sepsis Pseudomonas bacteremia Complicated UTI with Pseudomonas -Patient has chronic indwelling Alex's catheter which was changed on 06/11. Asked to come back to the hospital and blood cultures drawn in the ED came back positive for Pseudomonas Blood cultures from 06/12 positive for Pseudomonas. Started on cefepime 2 g every 8 hours. 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 Sloan -History of frequent paracentesis. Patient had paracentesis done today on 06/14 and 4.7 L was removed. Negative for SBP. Can continue with increased dose of Lasix 60 mg daily and spironolactone 150 mg daily. Thrombocytopenia Probably with hepatic cirrhosis. Monitoring BPH Chronic indwelling catheter - Tamsulosin 0.4 mg daily - Oxybutynin 5 mg daily -Patient follows up with urology at [facility] however he is not happy with his urologist and planningto see another urologist outpatient. Continue Alex care. Alex catheter was changed today Chronic pain Opiate dependence - Oxycodone 10 mg every 4 hours as needed NICOLE Morbid obesity - CPAP at night Hemochromatosis - Holding Eliquis 5 mg twice daily for now Insomnia - Ambien 10 mg at bedtime as needed History of DVT-recent history of nonocclusive DVT. Will resume Eliquis home dose FULL CODE DVT PPX: Eliquis Discharge barrier-pending clinical improvement and ID consult All labs, imaging, relevant history personally reviewed by me. This dictation was performed using voice recognition software. Word substitution may have occurred and may have gone unnoticed and uncorrected. Reach out to our office for any errors or questions. = * Ciera Valdez RN - 06/14/2024 1:33 PM EST ED RN HANDOFF (All Powell Below Must Be Completed) Reason/Diagnosis for Admission: +BLOOD CX, HEMATURIA Type of Admission: [x] Medsurg, [] Telemetry Already in a Hospital Bed: [] Yes / [x] No Room Considerations/Precautions (ex: fever, diarrhea, or any infectious concerns): [] Yes / [x] No Bankruptcy Paralegal: [] Yes / [x] No If YES, Cardiac Rhythm: [x] NSR, [] SB, [] ST, [] A-FIB, [] A-Flutter, [] Pacemaker, [] 1st Degree HB, [] 2nd Degree HB, [] 3rd Degree HB Reason for Bankruptcy Paralegal: VS: Visit Vitals BP 121/70 (BP Location: Left arm, Patient Position: Sitting) Pulse 86 Temp 36.6 ??C (97.9 ??F) Resp 17 Ht 1.651 m (65 ) Wt 147 kg (323 lb) SpO2 94% BMI 53.75 kg/m?? Smoking Status Former BSA 2.43 m?? Current Mental Status: A/O x [x]4, []3, []2, []1 Current Ambulation Status: NONE IV Access: [x] Yes / [] No Field IV present: [] Yes / [] No Hx of Violence: [] Yes / [] No / [x] Unknown Fall Risk:[x] Yes / [] No Yellow Bracelet Applied [] Yes / [] No Yellow Socks Applied [] Yes / [] No Patient Belongings inventoried and BL completed: [x] Yes / [] No Patient belongings stored in the security closet: [] Yes (If Yes please supply Security bag #): [x] No Patient Medications stored in Pharmacy: [] Yes (If Yes please supply Medication Security bag #): [x] No ED Summary of Care: PT SEEN IN ED ON 06/11 FOR HEMATURIA, HAD CBI, RETURNED 06/13 FOR +BLOOD CX, CONTINUED HEMATURIA. PT HAS #[id number] F/C WITH 30 CC BALLOON, DRAINING PINK URINE Submitted by and Phone Extension: MILAN Patel RN * Stephany Cifuentes PT - 06/14/2024 10:35 AM EST Physical Therapy Therapy session was attempted for Jonny Gordon by Stephany Cifuentes PT on 06/14/2024. The patient was unable to be seen for the following reason(s): Out of room at a medical procedure Plan for return visit: As soon as possible * Jillian Root RN - 06/14/2024 6:36 AM EST ED RN HANDOFF (All Powell Below Must Be Completed) Reason/Diagnosis for Admission: Type of Admission: [] Medsurg, [x] Telemetry Already in a Hospital Bed: [] Yes / [x] No Room Considerations/Precautions (ex: fever, diarrhea, or any infectious concerns): [] Yes / [x] No Bankruptcy Paralegal: [x] Yes / [] No If YES, Cardiac Rhythm: [x] NSR, [] SB, [] ST, [] A-FIB, [] A-Flutter, [] Pacemaker, [] 1st Degree HB, [] 2nd Degree HB, [] 3rd Degree HB Reason for Bankruptcy Paralegal: VS: Visit Vitals BP (!) 107/47 Pulse 87 Temp 36.8 ??C (98.3 ??F) (Oral) Resp 15 Ht 1.651 m (65 ) Wt 147 kg (323 lb) SpO2 98% BMI 53.75 kg/m?? Smoking Status Former BSA 2.43 m?? Current Mental Status: A/O x [x]4, []3, []2, []1 Current Ambulation Status: IV Access: [x] Yes / [] No Field IV present: [] Yes / [x] No Hx of Violence: [] Yes / [x] No / [] Unknown Fall Risk:[] Yes / [] No Yellow Bracelet Applied [] Yes / [] No Yellow Socks Applied [] Yes / [] No Patient Belongings inventoried and BL completed: [] Yes / [] No Patient belongings stored in the security closet: [] Yes (If Yes please supply Security bag #): [x] No Patient Medications stored in Pharmacy: [] Yes (If Yes please supply Medication Security bag #): [x] No ED Summary of Care: Pt comes to ed due to call back with positive blood cultures gram neg bacilli. . He was seen a few days ago for CBIx2 due to hematuria and now draining clear. He is A/ox4. =PMH cirrohis, nicole, DM insomnia, chronic vein stasis. Portal HTN, thrombocytopenia. He met sepsis criteria and treated with amitotics. Plan for paracentesis with fluids anaylisis to rule out SBP. Hold eliquis CT shows small pleurl effusion and 1 cm nodular R lower lobe. 3month follow up recommended. Admit for complicated UTI/ sepsis/ Pseudomonas bacteremia Submitted by and Phone Extension: * Sierra Levy RN - 06/13/2024 3:03 PM EST 06/13/24 1500 Initial Transition Plan Initial Transition Plan Home Health Care Discharge Planning Contact (Name, Phone #, Relationship) for DC Planning Elinor Cortez [phone] or sister [place] [phone] Living Arrangements Alone (has DIE CASTING MACHINE OPERATOR 47 hours per week) Type of Residence Private residence (Duplex, has stair chair to bedroom upstairs) Assistive Devices Walker;Wheelchair Support Systems Immediate family;Other (Comment) (DIE CASTING MACHINE OPERATOR) Medication Coverage Has Med Coverage Under Insurance Plan Yes Medication Affordability No concerns related to payment for meds Anticipated Discharge Needs Home Health RN;PT;OT Informed Choice Informed Choice Given? Yes Transportation Transportation at discharge Ambulance I met with patient and his sister Lavern with regards to d/c planning. Patient resides alone in a duplex home. Patient states that he has a stair chair (bedroom on 2nd floor). Patient reports that he is mostly wheelchair bound, does take a few steps with a walker. Patient has DIE CASTING MACHINE OPERATOR services 47 hours per week, 37 hours Mon-Fri and 10 hours Sat/Sun. Patient's DIE CASTING MACHINE OPERATOR Elinor in his HCP. Patient reports that he was recenly at [facility]. At this time patient declines SNF referrals. Patient is active with [facility]. Patient will need ambulance upon d/c home. Barrier to d/c: + blood cx, hematuria via alex, IV abx Dispo: home with [facility] and DIE CASTING MACHINE OPERATOR (has DIE CASTING MACHINE OPERATOR 37 hours Mon-Fri and 10 hours Sat/Sun). Was recently at [facility], patient declines SNF placement. Will need ambulance upon d/c * Mirta Menon RN - 06/13/2024 12:03 PM EST Patient BIBA for bright red blood noted this morning in chronic alex cath for hx hematochromotosis. Last alex change 2 days ago. Denies pain and catheter draining normally. Reports taking blood thinners. States he was called by someone at [facility] for abnormal labs and told to come to ED. Unsure of which labs. * Barak Benjamin MD - 06/13/2024 11:57 AM EST Emergency Medicine Note Patient Name: Jonny Gordon Initial Evaluation: 06/13/2024 : 1960 Patient's PCP: GIORGI Hummel Emergency Physician: Barak Benjamin MD History of Present Illness Chief Complaint: Chief Complaint Patient presents with ??? Blood in Urine Chronic Alex w/bright red blood. Last replaced 2 days ago HPI: See MDM ROS: I have performed a ROS with the pertinent positives and negatives documented in the history ofpresent illness. Previous History Past Medical History: Diagnosis Date ??? [...] deficiency Past Surgical History: Procedure Laterality Date ??? BACK SURGERY PROCEDURE: HISTORICAL BACK SURGERY; COMMENT: spinal diskectomy, osteophytectomy x4 ??? COLONOSCOPY N/A PROCEDURE: HISTORICAL COLONOSCOPY ??? ESOPHAGOGASTRODUODENOSCOPY PROCEDURE: DC ESOPHAGOGASTRODUODENOSCOPY TRANSORAL DIAGNOSTIC ??? OTHER SURGICAL HISTORY Right PROCEDURE: DC STAB PHLEBT VARICOSE VEINS 1 XTR > 20 INCS Social History Tobacco Use ??? Smoking status: Former Current packs/day: 0.00 Types: Cigarettes Quit date: 04/21/2003 Years since quittin.1 ??? Smokeless tobacco: Never Substance Use Topics ??? Alcohol use: No ??? Drug use: Yes Types: Marijuana/Cannabis Family History Problem Relation Name Age of Onset ??? Other (Other: other) Father cancer from asbestos ??? COPD Mother ??? Drug abuse Brother x2 heroine overdose other brother had addiction to pain meds ??? Liver disease Brother x2 ??? Diabetes Sister 1 ??? Heart attack Grandparent maternal ??? Obesity Half-Sister ??? Obesity Half-Brother is allergic to codeine, nystatin, and semaglutide. No current facility-administered medications on file prior to encounter. Current Outpatient Medications on File Prior to Encounter Medication Sig Dispense Refill ??? albuterol 2.5 mg/0.5 mL solution for nebulization nebulizer solution Take 0.5 mL (2.5 mg total)by nebulization every 6 (six) hours if needed for shortness of breath. ??? apixaban (ELIQUIS) starter pack Take 2 tablets (10 mg total) by mouth 2 (two) times a day for 7days. Then take 1 tablet (5 mg total) by mouth 2 (two) times a day. 74 tablet 0 ??? aspirin 81 mg EC tablet Take 1 tablet (81 mg total) by mouth 1 (one) time each day. ??? cholecalciferol (VITAMIN D-3) 50 mcg (2,000 unit) tablet 1 tablet (2,000 Units total). ??? doxycycline (MONODOX) 100 mg capsule Take 1 capsule (100 mg total) by mouth 2 (two) times a dayfor 10 days. Take with at least 8 ounces (large glass) of water, do not lie down for 30 minutes after. Administer 2 hours before or after multivitamins, antacids, or other products containing polyvalent cations (i.e., calcium, iron, magnesium, selenium, zinc). 20 capsule 0 ??? furosemide (LASIX) 20 mg tablet Take 2 tablets in the morning at 8 AM and 1 tablet in afternoonat 3 PM 90 each 0 ??? levoFLOXacin (LEVAQUIN) 250 mg tablet Take 3 tablets (750 mg total) by mouth 1 (one) time each day for 7 days. 21 tablet 0 ??? naloxone (NARCAN) 4 mg/0.1 mL nasal [...] ??? spironolactone (ALDACTONE) 100 mg tablet Take 1.5 tablets (150 mg total) by mouth 1 (one) time each day. 45 each 0 ??? zolpidem (AMBIEN) 10 mg tablet Take 1 tablet (10 mg total) by mouth at bedtime as needed. for insomnia Physical Exam ED Triage Vitals [06/13/24 1211] Temp Heart Rate Resp BP 37.4 ??C (99.4 ??F) 105 24 125/72 SpO2 Temp Source Heart Rate Source Patient Position 94 % Oral Monitor -- BP Location FiO2 (%) -- -- See MDM Results Labs Reviewed CBC AND DIFFERENTIAL Narrative: The following orders were created for panel order CBC and differential. Procedure Abnormality Status --------- ------ CBC auto differential[[id number]] Please view results for these tests on the individual orders. LACTATE, WITH REFLEX CBC WITH AUTO DIFFERENTIAL BASIC METABOLIC PANEL Abnormal Labs Reviewed - No abnormal labs to display No orders to display I have discussed the incidental/abnormal imaging and/or lab abnormalities with the patient and haveinstructed them the need for further evaluation and workup with their primary care doctor. I have provided the patient with a paper copy of the abnormality. The laboratory results, imaging results and other diagnostic exam results were reviewed in the EMR. EKG Interpretation Critical Care Time None Medical Decision Making Medications sodium chloride 0.9 % infusion (has no administration in time range) cefepime (MAXIPIME) 2 g in sterile water 20 mL IV syringe (has no administration in time range) ED Course as of 06/13/24 1512 Sun Jun 13, 2024 1220 Was seen yesterday, presented with hematuria, chronic indwelling Alex catheter, there was some other findings on his CTA with consideration of infectious etiology in his lungs and his cultures came back for gram-negative bacilli-Pseudomonas, is still having some degree of hematuria but the Alex catheter is working, he also has lymphedema. No fevers or chills. He is feeling discouraged because of multiple medical comorbidities. Patient is on blood thinners for hemochromatosis. [KV] 1221 Well-appearing obese male Lungs clear Abdomen nondistended obese bowel sounds present exam with insert a Alex catheter with some bleeding at the meatus He has chronic venous stasis currently in wraps bilateral lower extremities [KV] 1221 Admit for IV antibiotics, cefepime will provide pseudomonal coverage [KV] ED Course User Index [KV] Barak Benjamin MD Clinical Impressions as of 06/13/24 1512 Bact[address] Alex catheter in place Urinary tract infection associated with indwelling urethral catheter, initial encounter ([facility]) Procedures @PROCEDURENOTES@ Diagnosis 1. Bacteremia 2. Alex catheter in place Disposition Admit to Inpatient ED Prescriptions None Physician Attestation Barak Benjamin MD 06/13/24 1224 Barak Benjamin MD 06/13/24 1512 documented in this encounter H&P Notes * GIORGI Drake - 06/13/2024 3:17 PM EST Images from the original note were not included. [place] [facility] Please contact author [GIORGI Calvillo] via [employer]/Rece[employer]. Patient: Jonny Gordon Admission Date/Time: 06/13/2024 12:02 PM : 1960 [64 y.o.] Patient's PCP: GIORGI Hummel Attending Provider: Barak Benjamin MD;* CHIEF COMPLAINT: Alex catheter discomfort, blood in urine HPI: 64-year-old male with PMH of DM2, liver cirrhosis, esophageal varices, portal hypertension, thrombocytopenia, splenomegaly hypertension, hyperlipidemia, morbid obesity, BPH with chronic indwelling Alex catheter since February presents to the ED for abnormal labs - positive blood cultures Patient reports presenting to the ED few days ago due to Alex catheter not draining and very little urine output. His visiting nurse placed the Alex catheter, he states it was put in wrong and there was no urine output In the ED here at [facility] patient had Alex catheter changed. At that time patient hadCBI x 2 and states his urine cleared up. He had reported violent shakes and elevated heart rate which resolved and he was discharged home. Blood cultures are pending at that time??? He was called today for positive blood cultures and asked to return back to the ED for further treatment. He denies any prior history of hematuria. Patient is on Eliquis for hemochromatosis. Patient follows with urology, Dr. Simon at [facility] He also follows with Dr. Sloan for GI for paracentesis, his last one was April or 7.5 L were removed He reports having 1 UTI since his Alex catheter placement in February 2024 Currently feels well and denies any fever, chills, nausea, emesis, lightheaded, dizziness, abdominal pain, chest pain, shortness of breath Vitals: Patient presented tachycardic 122, currently 105, blood pressure 136/61, 95% on room air, respiratory rate 24, afebrile Labs WBC 6.9, hemoglobin 11, hematocrit 32.8, MCV 104, platelets 74,000, glucose 178, creatinine 0.65. Albumin 2.3, T. bili 2.6, direct bili 1.4, indirect 1.2, lactic 3.2, repeat 2.9. Troponin 22, 17. BNP 95 UA: + Blood, WBC 16, RBC 156. Urine culture pending Blood cultures + Gram negative bacilli CTA Chest - A 1 cm mixed density nodular right lower lobe opacity indeterminate. Could be infectious, inflammatory or neoplastic. Irrwj-nf-lnjlgjfg size left pleural effusion and trace right pleural effusion with mild subjacent atelectasis. Cardiomegaly. Mildly dilated main pulmonary artery indicating pulmonary arterial hypertension. Hepatic cirrhosis with ascites and splenomegaly. CT Abd/Pelvis w Contrast - Cirrhotic liver with portal hypertension including npavyqre-ci-sayhk volume ascites, splenomegaly and varices. No apparent bowel obstruction. No clear explanation for hematuria. If persistent, follow-up dedicated CT urogram suggested. Decompressed urinary bladder with Alex catheter limiting detail. In the ED patient received cefepime 2 g, oxycodone 10 mg p.o., normal saline IV fluids ROS Negative except noted in HPI ALLERGIES: Codeine Drug Ingredient Not Specified Allergy 12/25/2023 Nystatin Drug Ingredient Not Specified 04/07/2024 Cream and Powder Semaglutide Drug Ingredient Unknown Not Specified Allergy 05/19/2024 HOME MEDICATIONS: Eliquis 5 mg twice daily Rosuvastatin 5 mg daily Furosemide 40 mg in the morning, 20 mg in the afternoon Oxybutynin 5 mg daily Oxycodone 10 mg every 4 hours as needed Spironolactone 150 mg daily Tamsulosin 0.4 mg daily Ambien 10 mg at bedtime as needed PAST MEDICAL HISTORY: Diabetes mellitus type 2, uncomplicated Liver cirrhosis Esophageal varices Portal hypertension Hypertension Hyperlipidemia Morbid obesity, BMI 53 Obstructive sleep apnea Thrombocytopenia BPH Lymphedema Anxiety Depression Avascular necrosis of bone of hip, left Diverticulosis Erosive gastritis Insomnia Internal hemorrhoids Thoracic or lumbosacral neuritis or radiculitis Vitamin D deficiency SURGICAL HISTORY: Spinal discectomy Osteophytectomy x4 Colonoscopy EGD Right varicose vein SOCIAL HISTORY: Tobacco use - Former smoker Alcohol use - Denies Illicit drug use - Denies Mobility - Independent ADLs - Independent FAMILY HISTORY: Mother () - COPD Father () - Asbestos related lung disease Brother () - Heroin overdose Brother () - Liver disease Sister (Alive) - Diabetes PHYSICAL EXAM: GENERAL: Morbidly obese 64-year-old male sitting upright on stretcher, NAD HEENT: Normocephalic. EOM intact. PERRL. Dry MM. CARDIAC: RRR. No murmur, rubs, gallops. PULMONARY: Lungs clear bilaterally, normal respiratory rate. No wheeze/rales. GI: Large, soft, nontender abdomen. No significant distention. Normoactive bowel sounds x 4. Abdominal ascites present but abdomen is fluctuating and not firm : No CVA tenderness or suprapubic tenderness MSK: No joint deformity. NEURO: Sensation and light touch intact bilaterally. No focal weakness. Pleasant, A&Ox3. SKIN: Bilateral leg lymphedema with hyperpigmentation/chronic venous stasis changes RESULTS/IMAGING: CT Angio Chest wo and/or w Contrast [[id number]] Collected: 06/12/24 0643 Order Status: Completed Updated: 06/12/24 0644 Narrative: INDICATION: tachycardia, sob, recent dvt CT angiography [...] contour and moderate volume of ascites. Splenomegaly. Ncexv-wq-thfkcjsh size left pleural effusion and trace right pleural effusion. Subjacent airspace opacities most likely atelectasis. There is a 1 cm mixed density right lower lobe nodular opacity on series 6, image 38/61. Mild emphysematous changes. Spondylotic changes.\ Impression: A 1 cm mixed density nodular right lower lobe opacity indeterminate. Could be infectious, inflammatory or neoplastic. Follow-up chest CT is recommended in 3 months to assess stability. Izsgz-za-scukxwla size left pleural effusion and trace right pleural effusion with mild subjacent atelectasis. Cardiomegaly. Mildly dilated main pulmonary artery indicating pulmonary arterial hypertension. Hepatic cirrhosis with ascites and splenomegaly. Please see CT abdomen/pelvis report for additionaldetails. No evidence for pulmonary artery embolus. This document has been electronically signed by: Hernan Godwin MD on 06/12/2024 06:43:23 CT Abdomen Pelvis w Contrast [[id number]] Collected: 06/12/24 0706 Order Status: Completed Updated: 06/12/2407 Narrative: INDICATION: pain, hematuria CT abdomen and pelvis [...] suggesting panniculitis. Small fat containing inguinal hernias. Impression: Impression: Cirrhotic liver with portal hypertension including bglsgics-[id number] volume ascites, splenomegaly and varices. No apparent bowel obstruction. No clear explanation for hematuria. If persistent, follow-up dedicated CT urogram suggested. Decompressed urinary bladder with Alex catheter limiting detail. Findings suggesting panniculitis. Other findings as noted. This document has been electronically signed by: Jose Underwood MD on 06/12/2024 07:06:2 ASSESSMENT AND PLAN: Sepsis Pseudomonas bacteremia Complicated UTI Patient presented tachycardic 120s, lactic 3.2, and + BC as source of infection meeting sepsis criteria on admission Blood cultures + Gram negative bacilli - IV Cefepime 2g Q8h - IV Levaquin 750 mg Q24h - Repeat BC - Paracentesis w/ fluid analysis to r/o SBP - Holding eliquis for hematuria and paracentesis - AM labs Lactic acidosis Lactic 3.2 -- repeat 2.9 after IVF, benign abdominal exam Liver cirrhosis Abdominal ascites Portal hypertension Splenomegaly Follows with GI - Dr. Sloan Most recent paracentesis was in April 2024 (-7.5L) - Spironolactone 150 mg daily, this was recently increased - Continue care as above Hematuria Patient reported difficulty with alex catheter - initially presented to the ED a few days ago due to alex not being placed correctly and noted little to no urine output. - Holding Eliquis for now Thrombocytopenia In the setting of liver cirrhosis Platelets on admission stable 74,000 BPH Chronic indwelling catheter - Tamsulosin 0.4 mg daily - Oxybutynin 5 mg daily Hyperlipidemia - Rosuvastatin 5 mg daily Lymphedema of bilateral legs - Furosemide 40 mg in the morning, 20 mg in the afternoon Chronic pain Opiate dependence - Oxycodone 10 mg every 4 hours as needed NICOLE Morbid obesity - CPAP at night Hemochromatosis - Holding Eliquis 5 mg twice daily for now Insomnia - Ambien 10 mg at bedtime as needed FULL CODE HCP: hollie Aldrich [phone] PPX: Pneumoboots Case and plan discussed with: Dr. Neely 75 minutes or greater was spent on performing a medically appropriate history and physical examination, review of laboratory and radiology data requiring a high level of medical decision making. Cosigned by Napoleon Neely MD at 06/16/2024 10:52 AM EST Associated attestation - Naploeon Neely MD - 06/16/2024 10:52 AM EST This is a split/shared visit with GIORGI Drake. I personally performed the medical decision making (MDM) for the care of this patient on 06/13/24 as documented below Patient was discussed with Advanced Practice Provider. I personally saw and examined the patient atbedside. I independently obtained further history and reviewed significant updates, labs and imaging. I also contacted pertinent consultants in order to facilitate patient's medical care. Otherwise, I agree with the documentation and plan as outlined in the note below. Napoleon Neely MD 06/16/24 10:48 AM EST documented in this encounter Consult Notes * Flor Blair MD - 06/14/2024 2:55 PM ESTAssociated Order(s): IP CONSULT TO INFECTIOUS DISEASES Infectious Diseases Consult 06/14/24 No ref. provider found GIORGI Hummel Reason for Consultation: Pseudomonas bacteremia Source of history: chart review and the [...] (07/27/2010), Iron overload syndrome (12/03/2017), Morbid obesity ([facility]) (09/10/2017), Obstructive sleep apnea (05/21/2016), Thoracic or lumbosacral neuritis or radiculitis (09/13/2011), and Vitamin D deficiency (07/27/2012).. The patient was admitted to the hospital on 06/13/2024 for positive bloodC/S. The pt was recently discharged from [facility] on 05/25 for UI. He then ended up in rehab and then was discharged to home. A few hours after he got home he noted leakage from his alex, his visiting nurse came the next day and placed a new alex, unfortunately there was no urine OP and so he called EMSand was found to have significant bleeding and clots, he was brought to the ER and was found that the Alex was misaligned. He underwent CBI and then discharged from ER. Unfortunately, his blood C/S turned positive for PSAR. He was started on Cefepime and Levaquin. CT abdomen revealed no acute findings. The t also underwent paracentesis which was neg for SBP. Of note, I last saw the pt in Aprilduring his previous hospitalisation and had recommended evaluation for SPT as his alex frequently malfunctions. . The ID service has been consulted for [...] COLONOSCOPY N/A PROCEDURE: HISTORICAL COLONOSCOPY ESOPHAGOGASTRODUODENOSCOPY PROCEDURE: DC ESOPHAGOGASTRODUODENOSCOPY TRANSORAL DIAGNOSTIC OTHER SURGICAL HISTORY Right PROCEDURE: DC STAB [...] Start Date End Date Taking? Authorizing Provider oxyBUTYnin XL (DITROPAN-XL) 5 mg 24 hr tablet Take 1 tablet (5 mg total) by mouth 1 (one) time eachday. 06/03/24 Yes Historical Provider, albuterol 2.5 mg/0.5 mL solution for nebulization nebulizer solution Take 0.5 mL (2.5 mg total) by nebulization every 6 (six) hours if needed for shortness of breath. 02/18/24 Historical Provider, apixaban (ELIQUIS) 5 mg tablet Take 1 tablet (5 mg total) by mouth 2 (two) times a day. Historical Provider, apixaban (ELIQUIS) starter pack Take 2 tablets (10 mg total) by mouth 2 (two) times a day for 7 days. Then take 1 tablet (5 mg total) by mouth 2 (two) times a day. Patient not taking: Reported on 06/14/2024 05/25/24 Liang Uribe MD aspirin 81 mg EC tablet Take 1 tablet (81 mg total) by mouth 1 (one) time each day. Historical Provider, cholecalciferol (VITAMIN D-3) 50 mcg (2,000 unit) tablet 1 tablet (2,000 Units total). 11/19/11 Historical Provider, doxycycline (MONODOX) 100 mg capsule Take 1 capsule (100 mg total) by mouth 2 (two) times a day for10 days. Take with at least 8 ounces (large glass) of water, do not lie down for 30 minutes after. Administer 2 hours before or after multivitamins, antacids, or other products containing polyvalent cations (i.e., calcium, iron, magnesium, selenium, zinc). 06/12/24 06/22/24 GIORGI Lopez furosemide (LASIX) 20 mg tablet Take 2 tablets in the morning at 8 AM and 1 tablet in afternoon at 3 PM Patient taking differently: Take 1 tablet (20 mg total) by mouth 1 (one) time each day. Take 1 tablet in afternoon at 3 PM 05/25/24 Liang Uribe MD furosemide (LASIX) 40 mg tablet Take 1 tablet (40 mg total) by mouth 1 (one) time each day. Historical Provider, levoFLOXacin (LEVAQUIN) 250 mg tablet Take 3 tablets (750 mg total) by mouth 1 (one) time each day for 7 days. 06/13/24 06/20/24 GIORGI Duarte naloxone (NARCAN) 4 mg/0.1 mL nasal spray Administer 1 each (4 mg total) into affected nostril(s). 02/03/23 Historical Provider, oxyCODONE (OXY-IR) 5 mg immediate release capsule Take 2 capsules (10 mg total) by mouth every 4 (four) hours if needed for severe pain. Max Daily Amount: 60 mg Patient not taking: Reported on 06/14/2024 03/02/24 Solitario Escobar MD oxyCODONE (ROXICODONE) 10 mg immediate release tablet Take 1 tablet (10 mg total) by mouth every 4 (four) hours if needed for severe pain. Max Daily Amount: 60 mg Historical Provider, rosuvastatin (CRESTOR) 5 mg tablet Take 1 tablet (5 mg total) by mouth 1 (one) time each day. 03/25/24 Historical Provider, spironolactone (ALDACTONE) 100 mg tablet Take 1.5 tablets (150 mg total) by mouth 1 (one) time eachday. 05/25/24 06/24/24 Liang Uribe MD tamsulosin (FLOMAX) 0.4 mg 24 hr capsule Take 1 capsule (0.4 mg total) by mouth 1 (one) time each day. Historical Provider, zolpidem (AMBIEN) 10 mg tablet Take 1 tablet (10 mg total) by mouth at bedtime as needed. for insomnia Historical Provider, Current Medications: Current Facility-Administered Medications: acetaminophen (TYLENOL) tablet 650 mg, 650 mg, oral, q8h PRN, Napoleon Neely MD atorvastatin (LIPITOR) tablet 20 mg, 20 mg, oral, Nightly, GIORGI Drake, 20 mg at 06/13/24 212 cefepime (MAXIPIME) 2 g in sterile water 20 mL IV syringe, 2 g, intravenous, q8h, GIORGI Drake, 2 g at 06/14/24 1219 cholecalciferol (VITAMIN D-3) tablet 2,000 Units, 2,000 Units, oral, Daily, GIORGI Drake, 2,000 Units at 06/14/24 0847 furosemide (LASIX) tablet 20 mg, 20 mg, oral, q24h, GIORGI Drake furosemide (LASIX) tablet 40 mg, 40 mg, oral, Daily, GIORGI Drake, 40 mg at 06/14/24 0847 magnesium hydroxide (MILK OF MAGNESIA) 400 mg/5 mL suspension 30 mL, 30 mL, oral, Daily PRN, Manfred Neely MD naloxone (NARCAN) injection 0.04 mg, 0.04 mg, intravenous, PRN, Napoleon Neely MD oxyBUTYnin XL (DITROPAN-XL) 24 hr tablet 5 mg, 5 mg, oral, Daily, GIORGI Drake, 5 mg at 06/14/24 0848 oxyCODONE (ROXICODONE) immediate release tablet 10 mg, 10 mg, oral, q4h PRN, GIORGI Drake, 10 mg at 06/14/24 0854 polyethylene glycol (MIRALAX) packet 17 g, 17 g, oral, Daily, Napoleon Neely MD, 17 g at 847 Insert peripheral IV, , , Once AND Maintain IV access, , , Until discontinued AND Saline lock IV, , , Once AND sodium chloride 0.9 % flush 10 mL, 10 mL, intravenous, BID, 10 mL at 06/14/24 0857 AND sodium chloride 0.9 % flush 10 mL, 10 mL, intravenous, PRN, Napoleon Neely MD spironolactone (ALDACTONE) tablet 150 mg, 150 mg, oral, Daily, GIORGI Drake, 150 mg at06/14/24 0848 tamsulosin (FLOMAX) 24 hr capsule 0.4 mg, 0.4 mg, oral, Daily, GIORGI Drake, 0.4 mg at06/14/24 0847 zolpidem (AMBIEN) tablet 10 mg, 10 mg, oral, Nightly PRN, GIORGI Drake, 10 mg at 06/13/24 2236 PRN medications: acetaminophen, magnesium hydroxide, naloxone, oxyCODONE, Insert peripheral IV AND Maintain IV access AND Saline lock IV AND sodium chloride AND sodium chloride, zolpidem ROS: Review of Systems Constitutional: Negative. HENT: Negative. Respiratory: Negative. Cardiovascular: Negative. Gastrointestinal: Negative. Genitourinary: Negative. Musculoskeletal: Negative. Skin: Negative. Neurological: Negative. Hematological: Negative. Vital signs for last 24 hours: Temp: 36.6 ??C (97.9 ??F) (06/14 101) Heart Rate: 86 (06/14 1016) Resp: 17 (06/14 1016) BP: 121/70 (06/14 101) Intake/Output this shift: No intake/output data recorded. [...] rebound. Hernia: No hernia is present. Musculoskeletal: General: No swelling or tenderness. Skin: General: Skin is warm and dry. Coloration: Skin is not jaundiced. Findings: No lesion. Neurological: Mental Status: He is alert. Results: Lab Admission on 06/13/2024 Component Date Value LACTIC ACID 06/13/2024 2.9 (H) WBC 06/13/2024 6.9 RBC 06/13/2024 3.20 (L) Hemoglobin 06/13/2024 11.0 (L) Hematocrit 06/13/2024 32.8 (L) MCV 06/13/2024 104.1 (H) MCH 06/13/2024 34.9 (H) MCHC 06/13/2024 33.5 RDW 06/13/2024 17.6 (H) Platelets 06/13/2024 74 (L) MPV 06/13/2024 11.2 (H) NRBC 06/13/2024 0.0 NRBC Absolute 06/13/2024 0.00 Neutrophils Relative 06/13/2024 87.5 Lymphocytes Relative 06/13/2024 5.5 Monocytes Relative 06/13/2024 6.4 Eosinophils Relative 06/13/2024 0.1 Basophils Relative 06/13/2024 0.1 Immature Granulocytes Re* 06/13/2024 0.4 Neutrophils Absolute 06/13/2024 6.01 Lymphocytes Absolute 06/13/2024 0.38 (L) Monocytes Absolute 06/13/2024 0.44 Eosinophils Absolute 06/13/2024 0.01 Basophils Absolute 06/13/2024 0.01 Immature Granulocytes Ab* 06/13/2024 0.03 Sodium 06/13/2024 133 Potassium 06/13/2024 4.0 Chloride 06/13/2024 102 CO2 06/13/2024 26 Anion Gap 06/13/2024 5 Glucose 06/13/2024 178 (H) BUN 06/13/2024 13 Creatinine 06/13/2024 0.65 (L) eGFR 06/13/2024 104 BUN/Creatinine Ratio 06/13/2024 20.0 Calcium 06/13/2024 8.2 (L) LACTIC ACID 06/13/2024 2.6 (H) C-Reactive Protein 06/13/2024 10.20 (H) Total Protein 06/13/2024 5.9 (L) Albumin 06/13/2024 2.3 (L) Total Bilirubin 06/13/2024 2.6 (H) Bilirubin, Direct 06/13/2024 1.4 (H) Bilirubin, Indirect 06/13/2024 1.2 (H) ALT (SGPT) 06/13/2024 20 AST (SGOT) 06/13/2024 32 Alkaline Phosphatase 06/13/2024 133 (H) PSA 06/13/2024 0.18 Gram Stain Result 06/14/2024 No polymorphonuclear leukocytes, No epithelial cells, and No organismsnoted Albumin, Fluid 06/14/2024 0.6 Protein, Fluid 06/14/2024 1.4 LD, Fluid 06/14/2024 78 Glucose, Fluid 06/14/2024 150 Amylase, Fluid 06/14/2024 24 Spec Grav, Fluid 06/14/2024 1.014 Body Fluid Total Nucleat* 06/14/2024 218 Body Fluid RBC 06/14/2024 1,000 Body Fluid Color 06/14/2024 Yellow Body Fluid Clarity 06/14/2024 Clear Body Fluid Source 06/14/2024 Peritoneal Culture, Blood 06/14/2024 Culture in progress Culture, Blood 06/14/2024 Culture in progress Sodium 06/14/2024 133 Potassium 06/14/2024 3.8 Chloride 06/14/2024 99 CO2 06/14/2024 31 Anion Gap 06/14/2024 3 Glucose 06/14/2024 131 (H) BUN 06/14/2024 13 Creatinine 06/14/2024 0.56 (L) eGFR 06/14/2024 109 BUN/Creatinine Ratio 06/14/2024 23.2 Calcium 06/14/2024 8.2 (L) Magnesium 06/14/2024 1.9 WBC 06/14/2024 4.5 (L) RBC 06/14/2024 3.30 (L) Hemoglobin 06/14/2024 11.6 (L) Hematocrit 06/14/2024 35.2 (L) MCV 06/14/2024 107.0 (H) MCH 06/14/2024 35.3 (H) MCHC 06/14/2024 33.0 RDW 06/14/2024 17.5 (H) Platelets 06/14/2024 77 (L) MPV 06/14/2024 10.3 NRBC 06/14/2024 0.0 NRBC Absolute 06/14/2024 0.00 Neutrophils Relative 06/14/2024 75.4 Lymphocytes Relative 06/14/2024 13.9 Monocytes Relative 06/14/2024 9.7 Eosinophils Relative 06/14/2024 0.4 Basophils Relative 06/14/2024 0.4 Immature Granulocytes Re* 06/14/2024 0.2 Neutrophils Absolute 06/14/2024 3.35 Lymphocytes Absolute 06/14/2024 0.62 (L) Monocytes Absolute 06/14/2024 0.43 Eosinophils Absolute 06/14/2024 0.02 Basophils Absolute 06/14/2024 0.02 Immature Granulocytes Ab* 06/14/2024 0.01 LACTIC ACID 06/14/2024 1.6 Fluid Neutrophils % 06/14/2024 4 Fluid Lymphocytes % 06/14/2024 74 Fluid Monocytes/Macropha* 06/14/2024 22 Fluid Eosinophils % 06/14/2024 0 Fluid Basophils % 06/14/2024 0 Fluid Other Cells % 06/14/2024 0 Lab Results Component Value Date BLOODCX Culture in progress 06/14/2024 BLOODCX Culture in progress 06/14/2024 URINECX >100,000 CFU/mL Pseudomonas aeruginosa (A) 06/12/2024 Recent Results (from the past week) Culture urine Collection Time: 06/12/24 1:15 AM Specimen: Urine, Clean Catch Result Value Ref Range Culture, Urine >100,000 CFU/mL Pseudomonas aeruginosa (A) Susceptibility Pseudomonas aeruginosa - SAVANNAH Ceftazidime Resistant ug/ml Meropenem Susceptible ug/ml Amikacin Susceptible ug/ml Ciprofloxacin Susceptible ug/ml Levofloxacin Susceptible ug/ml Blood Culture, Peripheral Draw #1 Collection Time: 06/12/24 3:40 AM Specimen: Blood, Venous Result Value Ref Range Culture, Blood Gram negative bacilli (AA) Gram Stain Result Aerobic bottle Gram negative bacilli (AA) Blood Culture, Peripheral Draw #2 Collection Time: 06/12/24 3:44 AM Specimen: Blood, Venous Result Value Ref Range Culture, Blood Gram negative bacilli (AA) Gram Stain Result (AA) Aerobic and Anaerobic bottles Gram negative bacilli Blood culture pathogens molecular study Collection Time: 06/12/24 3:44 AM Specimen: Blood, Venous Result Value Ref Range Pseudomonas aeruginosa Detected (A) Not Detected Culture blood Collection Time: 06/14/24 5:14 AM Specimen: Blood, Venous Result Value Ref Range Culture, Blood Culture in progress Culture blood Collection Time: 06/14/24 5:22 AM Specimen: Blood, Venous Result Value Ref Range Culture, Blood Culture in progress Culture body fluid with gram stain Collection Time: 06/14/24 10:19 AM Specimen: Peritoneal Cavity; Peritoneal Fluid Result Value Ref Range Gram Stain Result No polymorphonuclear leukocytes, No epithelial cells, and No organisms noted Radiology: US Paracentesis w Image Guidance Narrative: HISTORY: Large volume ascites. TECHNIQUE: After written [...] in right lower quadrant localized for drainage. Impression: Successful paracentesis of 4.7L of ascitic fluid without complications. -------- PRELIMINARY REPORT -------- Dictated By: Milady Chilel Dictated Date: 06/14/2024 11:28 ET Assigned Physician: Aurora Meng Reviewed and Electronically Signed By: Signed Date: ET Workstation ID: [id number] Transcribed By: Self Edit Transcribed Date: 06/14/2024 11:29 ET Resident/PA/CATTERY OPERATOR: Milady Chilel Assessment/Plan Jonny Gordon is a 64 y.o. [...] patient was admitted to the hospital on 06/13/2024 for positive bloodC/S. The pt was recently discharged from [facility] on 05/25 for UI. He then ended up in rehab and then was discharged to home. A few hours after he got home he noted leakage from his alex, his visiting nurse came the next day and placed a new alex, unfortunately there was no urine OP and so he called EMSand was found to have significant bleeding and clots, he was brought to the ER and was found that the Alex was misaligned. He underwent CBI and then discharged from ER. Unfortunately, his blood C/S turned positive for PSAR. He was started on Cefepime and Levaquin. CT abdomen revealed no acute findings. The t also underwent paracentesis which was neg for SBP. Of note, I last saw the pt in Aprilduring his previous hospitalisation and had ecommended evaluation for SPT as his alex frequently malfunctions. . The ID service has been consulted for management during this patient's hospital stay. Sepsis 2/2 Pseudomonas bacteremia 2/2 UTI Recurrent alex dysfunction Cirrhosis, concern for SBP, ruled out I am stopping Levaquin Continue Cefepime 2 g Q8 Await susceptibilities of PSAR Should be treated for 2 weeks Hopefully can go home on PO Cipro if Qtc appropriate SBP ruled out, ANC less than 250 Should be evaluated by Urology for SPT as has had multiple episodes of Alex dysfunction Recommendations: Continue Cefepime 2 g Q8, I am stopping Levaquin await SAVANNAH of PSAR, will need Abx for 2 weeks Recommend Urology consult, the pt has had multiple issues with his alex in the past and is now back within 1 month for an infection, strongly recommend evaluating for SPT Should check qtc to see if discharge on PO Cipro is an option on DC I personally spent 75 minutes in this encounter. This included performing a detailed chart review, reviewing and independently interpreting labs and other tests ordered by other providers, performinga history and physical, counseling the patient/family, discussing the case with primary team , performing complex medical decision making, coordinating his/her/their plan of care and placing orders Communication: Thank you for the consult. Please [...] Flor Blair MD documented in this encounter Miscellaneous Notes * ED Bed Hold Note - Jillian Root RN - 06/14/2024 4:44 AM EST Bed: OR-34 Expected date: Expected time: Means of arrival: Comments: HOLD FOR RED 15 documented in this encounter Plan of Treatment Upcoming Encounters Date Type Department Care Team (Latest Contact Info) Description 06/24/2024 11:20 AM EST Office Visit Gastroenterology - [place] [address] [facility] [address] [facility] [address] [place] [phone] Han Sloan DO [address] [facility] [address] [place] [address] 07/06/2024 1:00 PM EDT Appointment [facility] Interventional Radiology [address] [place] [phone] 08/12/2024 10:30 AM EDT Ancillary Procedure [facility] [address] [place] [phone] Pending Results Name Type Priority Associated Diagnoses Date /Time Culture fungal, other Microbiology Routine 06/14/2024 10:19 AM EST Scheduled Orders Name Type Priority Associated Diagnoses Orde r Schedule IR Insert Hepatic Shunt TIPS Imaging Routine Hx of ascites Once for 1 Occurrences starting 06/15/2024 until 06/15/2024 documented as of this encounter Procedures Procedure Name Priority Date/Time Associated Diagnosis Comments TRANSTHORACIC ECHOCARDIOGRAM (TTE) COMPLETE W/ CONTRAST Routine 06/15/2024 2:35 PM EST Anasarca ECG 12-LEAD Routine 06/15/2024 12:53 PM EST COMPLETE BLOOD COUNT Routine 06/15/2024 6:38 AM EST PHOSPHORUS Routine 06/15/2024 6:38 AM EST MAGNESIUM Routine 06/15/2024 6:38 AM EST BASIC METABOLIC PANEL Routine 06/15/2024 6:38 AM EST CPAP NIV Routine 06/14/2024 10:01 PM EST CELL COUNT WITH REFLEX DIFFERENTIAL, BODY FLUID Routine 06/14/2024 10:19 AM EST CULTURE BODY FLUID WITH GRAM STAIN Routine 06/14/2024 10:19 AM EST DIFFERENTIAL BODY FLUID Routine 06/14/19 10:19 AM EST CULTURE FUNGAL, OTHER Routine 06/14/2024 10:19 AM EST SPECIFIC GRAVITY, BODY FLUID Routine 06/14/2024 10:19 AM EST PROTEIN, BODY FLUID Routine 06/14/2024 1 0:19 AM EST LACTATE DEHYDROGENASE, BODY FLUID Routine 06/14/2024 10:19 AM EST GLUCOSE, BODY FLUID Routine 06/14/2024 1 0:19 AM EST AMYLASE, BODY FLUID Routine 06/14/2024 1 0:19 AM EST ALBUMIN, BODY FLUID Routine 06/14/2024 1 0:19 AM EST NON-GYNECOLOGIC CYTOLOGY Routine 06/14/2024 10:19 AM EST US PARACENTESIS W IMAGE GUIDANCE Routine 06/14/2024 10:17 AM EST LACTATE, WITH REFLEX STAT 06/14/2024 5:26 AM EST CULTURE BLOOD Routine 06/14/2024 5:22 AM EST CBC WITH AUTO DIFFERENTIAL Routine 06/14/2024 5:14 AM EST CULTURE BLOOD Routine 06/14/2024 5:14 AM EST CBC AND DIFFERENTIAL Routine 06/14/2024 5:14 AM EST MAGNESIUM Routine 06/14/2024 5:14 AM EST BASIC METABOLIC PANEL Routine 06/14/2024 5:14 AM EST CPAP NIV Routine 06/13/2024 10:01 PM EST LACTATE, WITH REFLEX Timed 06/13/2024 3:34 PM EST LACTATE, WITH REFLEX STAT 06/13/2024 12:37 PM EST PROSTATE SPECIFIC ANTIGEN SCREEN Add-On 06/13/2024 12:37 PM EST CBC WITH AUTO DIFFERENTIAL STAT 06/13/2024 12:37 PM EST CBC AND DIFFERENTIAL STAT 06/13/2024 12:37 PM EST C-REACTIVE PROTEIN Add-On 06/13/2024 12 :37 PM EST HEPATIC FUNCTION PANEL Add-On 12:37 PM EST BASIC METABOLIC PANEL STAT 06/13/2024 12:37 PM EST documented in this encounter Results * (ABNORMAL) TRANSTHORACIC ECHOCARDIOGRAM (TTE) COMPLETE W/ CONTRAST (06/15/2024 2:35 PM EST) Left [facility] [place] 5.9 cm CV PACS [place] Area Sys [...] a supine position and lung artifact. Liang Uribe MD CV ECHO PROCEDURES Final Result * ECG 12 lead (06/15/2024 12:53 PM EST) Pathologist [facility] Ventricular Rate ECG 85 BPM GEMUSE Atrial Rate 85 BPM GEMUSE P-R Interval 126 ms GEMUSE QRS Duration 130 ms GEMUSE Q-T Interval 408 ms GEMUSE QTc 485 ms GEMUSE P Wave [place] 28 degrees GEMUSE R [place] -36 degrees GEMUSE T [place] 29 degrees GEMUSE ECG Interpretation Normal sinus rhythm Left axis deviation Right bundle branch block Abnormal ECG When compared with ECG of 12-JUN-2024 03:57, No significant change was found Confirmed by MD Felix, [place] ([id number]) on 06/15/2024 5:37:07 PM GEMUSE 06/15/2024 12:5 3 PM EST 06/15/2024 5:37 PM EST Liang Uribe MD ECG ORDERABLES Fin al Result Performing Organization Address City/[facility]/ZIP Co de Phone Number GEMUSE * Magnesium (06/15/2024 6:38 AM EST) [facility] Magnesium 1.9 1.9 - 2.6 mg/dL LAB CHEMISTRY METHOD 06/15/2024 7:50 AM EST [facility] Blood Venous blood specimen / Unknown Venipuncture / Unknown 06/15/2024 6:38 AM EST 06/15/2024 7:06 AM EST Liang Uribe MD LAB BLOOD ORDERABLE S Final Result Performing Organization Address City/[facility] Co de Phone Number [facility] [address] [place] [address], [place] [phone] * (ABNORMAL) Basic metabolic panel (06/15/2024 6:38 AM EST) [facility] Sodium 134 133 - 145 mmol/L LAB CHEMISTRY METHOD 06/15/2024 7:50 AM EST [facility] Potassium 4.2 3.5 - 5.5 mmol/L LAB CHEMISTRY METHOD 06/15/2024 7:50 AM [facility] Chloride 100 96 - 110 mmol/L LAB CHEMISTRY METHOD 06/15/2024 7:50 AM [facility] CO2 30 21 - 32 mmol/L LAB CHEMISTRY METHOD 06/15/2024 7:50 AM [facility] Anion Gap 4 3 - 11 LAB CHEMISTRY METHOD 06/15/2024 7:50 AM [facility] Glucose 115(H) 70 - 100 mg/dL LAB CHEMISTRY METHOD 06/15/2024 7:50 AM [facility] BUN 11 5 - 25 mg/dL LAB CHEMISTRY METHOD 06/15/2024 7:50 AM [facility] Creatinine 0.48(L) 0.70 - 1.30 mg/dL LAB CHEMISTRY METHOD 06/15/2024 7:50 AM [facility] eGFR 114 >=60 mL/min/1. 73m2 LAB CHEMISTRY METHOD 06/15/2024 7:50 AM [facility] Comment:Calculation based on the??Chronic Kidney Disease Epidemiology Collaboration (CKD-EPI) equation refit??without adjustment for race. BUN/Creatinine Ratio 22.9 LAB CHEMISTRY METHOD 06/15/2024 7:50 AM [facility] Calcium 8.2(L) 8.5 - 10.5 mg/dL LAB CHEMISTRY METHOD 06/15/2024 7:50 AM [facility] Blood Venous blood specimen / Unknown Venipuncture / Unknown 06/15/2024 6:38 AM EST 06/15/2024 7:06 AM EST Liang Uribe MD LAB BLOOD ORDERABLE S Final Result [facility] [address] [place] [address], [place] [phone] * (ABNORMAL) Complete blood count (06/15/2024 6:38 AM EST) [facility] WBC 4.1(L) 4.8 - 10.8 K/mcL LAB HEMETOLOGY METHOD 06/15/2024 7:42 AM [facility] RBC 3.50(L) 4.50 - 5.50 M/mcL LAB HEMETOLOGY METHOD 06/15/2024 7:42 AM [facility] Hemoglobin 11.9(L) 13.5 - 17.5 g/dL LAB HEMETOLOGY METHOD 06/15/2024 7:42 AM [facility] Hematocrit 35.3(L) 42.0 - 54.0 % LAB HEMETOLOGY METHOD 06/15/2024 7:42 AM [facility] MCV 102.3(H) 79.0 - 98.0 FL LAB HEMETOLOGY METHOD 06/15/2024 7:42 AM [facility] MCH 34.5(H) 27.0 - 32.0 pcg LAB HEMETOLOGY METHOD 06/15/2024 7:42 AM [facility] MCHC 33.7 32.0 - 37.0 g/dL LAB HEMETOLOGY METHOD 06/15/2024 7:42 AM [facility] RDW 17.0(H) 11.0 - 15.0 % LAB HEMETOLOGY METHOD 06/15/2024 7:42 AM [facility] Platelets 81(L) 130 - 400 K/mcL LAB HEMETOLOGY METHOD 06/15/2024 7:42 AM [facility] Comment:previously verified by slide MPV 11.0 7.0 - 11.0 FL LAB HEMETOLOGY METHOD 06/15/2024 7:42 AM [facility] NRBC 0.0 <1.0 % LAB HEMETOLOGY METHOD 06/15/2024 7:42 AM EST [facility] NRBC Absolute 0.00 <0.10 K/mcL LAB HEMETOLOGY METHOD 06/15/2024 7:42 AM EST [facility] Blood Venous blood specimen / Unknown Venipuncture / Unknown 06/15/2024 6:38 AM EST 06/15/2024 7:06 AM EST us Liang Uribe MD LAB BLOOD ORDERABLE S Final Result [facility] [address] [place] [address], [place] [phone] * Phosphorus (06/15/2024 6:38 AM EST) Phosphorus 3.0 2.5 - 4.5 mg/dL LAB CHEMISTRY METHOD 06/15/2024 7:50 AM EST [facility] Blood Venous blood specimen / Unknown Venipuncture / Unknown 06/15/2024 6:38 AM EST 06/15/2024 7:06 AM EST us Liang Uribe MD LAB BLOOD ORDERABLE S Final Result Performing Organization Address City/[facility]/ZIP Co de Phone Number [facility] [address] [place] [address], [place] [phone] * Differential body fluid (06/14/2024 10:19 AM EST) Fluid Neutrophils % 4 % 06/14/2024 11:38 AM EST [facility] Fluid Lymphocytes % 74 % 06/14/2024 11:38 AM EST [facility] Fluid Monocytes/Macrop hages 22 % 06/14/2024 11:38 AM EST [facility] Fluid Eosinophils % 0 % 06/14/2024 11:38 AM EST [facility] Fluid Basophils % 0 % 06/14/2024 11:38 AM EST [facility] Fluid Other Cells % 0 % 06/14/2024 11:38 AM [facility] Peritoneal Fluid Peritoneal cavity structure / Unknown Non-blood Collection / Unknown 06/14/2024 10:19 AM EST 06/14/2024 10:27 AM EST [facility] - 06/14/2024 11:38 AM EST No reference ranges have been established for body fluids. Clinical correlation recommended. us Cristiana RAND LAB BODY FLUIDS AND STO OLS ORDERABLES Final Result [facility] [address] [place] [address], [place] [phone] * Cell count with reflex differential, body fluid (06/14/2024 10:19 AM EST) Body Fluid Total Nucleated Cells 218 /mm3 LAB HEMETOLOGY METHOD 06/14/2024 11:38 AM [facility] Body Fluid RBC 1,000 /mm3 LAB HEMETOLOGY METHOD 06/14/2024 11:38 AM [facility] Body Fluid Color Yellow 06/14/2024 11:38 AM [facility] Body Fluid Clarity Clear 06/14/2024 11:38 AM [facility] Body Fluid Source Peritoneal 06/14/2024 11:38 AM [facility] Peritoneal Fluid Peritoneal cavity structure / Unknown Non-blood Collection / Unknown 06/14/2024 10:19 AM EST 06/14/2024 10:27 AM EST [facility] - 06/14/2024 11:38 AM EST No reference ranges have been established for body fluids. Clinical correlation recommended. us Cristiana RAND LAB BODY FLUIDS AND STO OLS ORDERABLES Final Result [facility] [address] [place] [address], * Non-gynecologic cytology (06/14/2024 10:19 AM EST) Final Diagnosis A. Peritoneal fluid, paracentesis, (ThinPrep, cell block): Negative for malignant cells. 06/17/2024 4:30 PM [facility] Specimen A Adequacy Satisfactory for evaluation 06/17/2024 4:30 PM [facility] Gross Description A. Peritoneal Cavity, : Received 115 ml of yellow fluid; 1 ThinPrep, 1 Cell block Cell block in formalin @1500; total formalin fixation time 6 hours. 06/17/2024 4:30 PM [facility] Disclaimer Unless otherwise specified, all tissue is 10% NB formalin fixed and paraffin embedded. Technical cytopathology services provided by [facility], at [address] [place] [id number] (CLIA # [id number]/Katya Lo MD, [employer]am Shucking Machine Tender.) 06/17/2024 4:30 PM [facility] Peritoneal Fluid Peritoneal cavity structure / Unknown Non-blood Collection / Unknown 06/14/2024 10:19 AM EST 06/14/2024 2:30 PM EST us Cristiana RAND LAB CYTOLOGY ORDERABLES Final Result Performing Organization Address City/[facility]/ZIP Co de Phone Number [facility] [address] [place] [address], [place] [phone] * Specific gravity, body fluid (06/14/2024 10:19 AM EST) Spec Grav, Fluid 1.014 06/14/2024 11:01 AM [facility] Peritoneal Fluid Non-blood Collection / Unknown 06/14/2024 10:19 AM EST 06/14/2024 10:26 AM EST [facility] - 06/14/2024 11:01 AM EST No reference ranges have been established for body fluids. Clinical correlation recommended. us Cristiana RAND LAB BODY FLUIDS AND STO OLS ORDERABLES Final Result Performing Organization Address [facility]/ZIP Co de Phone Number [facility] [address] [place] [address], [place] [phone] * Amylase, body fluid (06/14/2024 10:19 AM EST) Amylase, Fluid 24 See Comment unit/L LAB CHEMISTRY METHOD 06/14/2024 11:19 AM EST [facility] Peritoneal Fluid Non-blood Collection / Unknown 06/14/2024 10:19 AM EST 06/14/2024 10:26 AM EST [facility] - 06/14/2024 11:19 AM EST No reference ranges have been established for body fluids. Clinical correlation recommended. us Cristiana RAND LAB BODY FLUIDS AND STO OLS ORDERABLES Final Result Performing Organization Address [facility] Co de Phone Number [facility] [address] [place] [address], [place] [phone] * Glucose, body fluid (06/14/2024 10:19 AM EST) Glucose, Fluid 150 See Comment mg/dL LAB CHEMISTRY METHOD 06/14/2024 11:28 AM EST [facility] Ascites 06/14/2024 10:1 9 AM EST 06/14/2024 10:26 AM EST [facility] - 06/14/2024 11:28 AM EST No reference ranges have been established for body fluids. Clinical correlation recommended. Cristiana RAND LAB BODY FLUIDS AND STO OLS ORDERABLES Final Result Performing Organization Address [facility]/ZIP Co de Phone Number [facility] [address] [place] [address], [place] [phone] * Lactate dehydrogenase, body fluid (06/14/2024 10:19 AM EST) LD, Fluid 78 See Comment unit/L LAB CHEMISTRY METHOD 06/14/2024 11:42 AM EST [facility] Peritoneal Fluid Peritoneal cavity structure / Unknown Non-blood Collection / Unknown 06/14/2024 10:19 AM EST 06/14/2024 10:27 AM EST [facility] - 06/14/2024 11:42 AM EST No reference ranges have been established for body fluids. Clinical correlation recommended. Cristiana RAND LAB BODY FLUIDS AND STO OLS ORDERABLES Final Result Performing Organization Address [facility] de Phone Number [facility] [address] [place] [address], [place] [phone] * Protein, body fluid (06/14/2024 10:19 AM EST) Protein, Fluid 1.4 See Comment g/dL LAB CHEMISTRY METHOD 06/14/2024 11:19 AM EST [facility] Peritoneal Fluid Non-blood Collection / Unknown 06/14/2024 10:19 AM EST 06/14/2024 10:26 AM EST [facility] - 06/14/2024 11:19 AM EST No reference ranges have been established for body fluids. Clinical correlation recommended. Cristiana RAND LAB BODY FLUIDS AND STO OLS ORDERABLES Final Result Performing Organization Address [facility]/ZIP Co de Phone Number [facility] [address] [place] [address], [place] [phone] * Albumin, body fluid (06/14/2024 10:19 AM EST) Albumin, Fluid 0.6 See Comment g/dL LAB CHEMISTRY METHOD 06/14/2024 11:19 AM EST [facility] Peritoneal Fluid Non-blood Collection / Unknown 06/14/2024 10:19 AM EST 06/14/2024 10:26 AM EST Narrative [facility] - 06/14/2024 11:19 AM EST No reference ranges have been established for body fluids. Clinical correlation recommended. Cristiana RAND LAB BODY FLUIDS AND STO OLS ORDERABLES Final Result Performing Organization Address [facility]/ZIP Co de Phone Number [facility] [address] [place] [address], [place] [phone] * Culture body fluid with gram stain (06/14/2024 10:19 AM EST) Fluid Culture No growth at 3 days LAB MICROBIOLOGY METHOD 06/17/2024 11:25 AM EST [facility] Gram Stain Result No polymorphonuclear leukocytes, No epithelial cells, and No organisms noted 06/17/2024 11:25 AM EST [facility] Peritoneal Fluid Peritoneal cavity structure / Unknown Non-blood Collection / Unknown 06/14/2024 10:19 AM EST 06/14/2024 10:26 AM EST Cristiana RAND LAB MICROBIOLOGY - GENE RAL ORDERABLES Final Result Performing Organization Address [facility]/ZIP Co de Phone Number [facility] [address] [place] [address], [place] [phone] * [place] Paracentesis w Image Guidance (06/14/2024 10:17 AM EST) Anatomical Region Laterality Modality Abdomen Ultrasound 06/14/2024 11:2 8 AM EST Impressions 06/15/2024 12:40 PM EST Successful paracentesis of 4.7L of ascitic fluid without complications. -------- FINAL REPORT -------- Dictated By: Milady Chilel Dictated Date: 06/14/2024 11:28 ET Assigned Physician: Aurora eMng Reviewed and Electronically Signed By: Aurora Meng Signed Date: 06/15/2024 12:40 ET Workstation ID: [id number] Transcribed By: Self Edit Transcribed Date: 06/14/2024 11:29 ET Resident/PA/CATTERY OPERATOR: Milady Chilel Narrative 06/15/2024 12:40 PM [...] Signed Date: 06/15/2024 12:40 ET Workstation ID: [id number] Transcribed By: Self Edit Transcribed Date: 06/14/2024 11:29 ET Resident/PA/CATTERY OPERATOR: Milady Chilel Cristiana RAND IMG US PROCEDURES Final Result * Lactate, with reflex (06/14/2024 5:26 AM EST) LACTIC ACID 1.6 0.4 - 2.0 mmol/L LAB CHEMISTRY METHOD 06/14/2024 6:03 AM EST [facility] Blood Venous blood specimen / Unknown Venipuncture / Unknown 06/14/2024 5:26 AM EST 06/14/2024 5:33 AM EST us Napoleon Neely MD LAB BLOOD ORDERABLES Final Re sult Performing Organization Address [facility]/ZIP Co de Phone Number [facility] [address] [place] [address], [place] [phone] * Culture blood (06/14/2024 5:22 AM EST) Culture, Blood No growth at 5 days 06/19/2024 6:01 AM EST [facility] Blood Venous blood specimen / Unknown Venipuncture / Unknown 06/14/2024 5:22 AM EST 06/14/2024 5:33 AM EST us Napoleon Neely MD LAB MICROBIOLOGY - GENERAL OR DERABLES Final Result [facility] [address] [place] [address], * (ABNORMAL) CBC auto differential (06/14/2024 5:14 AM EST) WBC 4.5(L) 4.8 - 10.8 K/mcL LAB HEMETOLOGY METHOD 06/14/2024 6:00 AM [facility] RBC 3.30(L) 4.50 - 5.50 M/mcL LAB HEMETOLOGY METHOD 06/14/2024 6:00 AM [facility] Hemoglobin 11.6(L) 13.5 - 17.5 g/dL LAB HEMETOLOGY METHOD 06/14/2024 6:00 AM [facility] Hematocrit 35.2(L) 42.0 - 54.0 % LAB HEMETOLOGY METHOD 06/14/2024 6:00 AM [facility] MCV 107.0(H) 79.0 - 98.0 FL LAB HEMETOLOGY METHOD 06/14/2024 6:00 AM [facility] MCH 35.3(H) 27.0 - 32.0 pcg LAB HEMETOLOGY METHOD 06/14/2024 6:00 AM [facility] MCHC 33.0 32.0 - 37.0 g/dL LAB HEMETOLOGY METHOD 06/14/2024 6:00 AM [facility] RDW 17.5(H) 11.0 - 15.0 % LAB HEMETOLOGY METHOD 06/14/2024 6:00 AM [facility] Platelets 77(L) 130 - 400 K/mcL LAB HEMETOLOGY METHOD 06/14/2024 6:00 AM [facility] Comment:previously verified by slide MPV 10.3 7.0 - 11.0 FL LAB HEMETOLOGY METHOD 06/14/2024 6:00 AM [facility] NRBC 0.0 <1.0 % LAB HEMETOLOGY METHOD 06/14/2024 6:00 AM [facility] NRBC Absolute 0.00 <0.10 K/mcL LAB HEMETOLOGY METHOD 06/14/2024 6:00 AM [facility] Neutrophils Relative 75.4 % LAB HEMETOLOGY METHOD 06/14/2024 6:00 AM [facility] Lymphocytes Relative 13.9 % LAB HEMETOLOGY METHOD 06/14/2024 6:00 AM [facility] Monocytes Relative 9.7 % LAB HEMETOLOGY METHOD 06/14/2024 6:00 AM [facility] Eosinophils Relative 0.4 % LAB HEMETOLOGY METHOD 06/14/2024 6:00 AM [facility] Basophils Relative 0.4 % LAB HEMETOLOGY METHOD 06/14/2024 6:00 AM [facility] Immature Granulocytes Relative 0.2 % LAB HEMETOLOGY METHOD 06/14/2024 6:00 AM [facility] Neutrophils Absolute 3.35 1.50 - 7.00 K/mcL LAB HEMETOLOGY METHOD 06/14/2024 6:00 AM [facility] Lymphocytes Absolute 0.62(L) 1.00 - 5.00 K/mcL LAB HEMETOLOGY METHOD 06/14/2024 6:00 AM [facility] Monocytes Absolute 0.43 0.20 - 1.00 K/mcL LAB HEMETOLOGY METHOD 06/14/2024 6:00 AM [facility] Eosinophils Absolute 0.02 0.00 - 0.50 K/mcL LAB HEMETOLOGY METHOD 06/14/2024 6:00 AM [facility] Basophils Absolute 0.02 0.00 - 0.20 K/mcL LAB HEMETOLOGY METHOD 06/14/2024 6:00 AM EST [facility] Immature Granulocytes Absolute 0.01 0.00 - 0.03 K/mcL LAB HEMETOLOGY METHOD 06/14/2024 6:00 AM EST [facility] Blood Venous blood specimen / Unknown Venipuncture / Unknown 06/14/2024 5:14 AM EST 06/14/2024 5:34 AM EST us Napoleon Neely MD LAB BLOOD ORDERABLES Final Re sult Performing Organization Address [facility]/ZIP Co de Phone Number [facility] [address] [place] [address], [place] [phone] * Magnesium (06/14/2024 5:14 AM EST) Magnesium 1.9 1.9 - 2.6 mg/dL LAB CHEMISTRY METHOD 06/14/2024 5:57 AM EST [facility] Blood Venous blood specimen / Unknown Venipuncture / Unknown 06/14/2024 5:14 AM EST 06/14/2024 5:34 AM EST us Napoleon Neely MD LAB BLOOD ORDERABLES Final Re sult Performing Organization Address [facility]/ZIP Co de Phone Number [facility] [address] [place] [address], [place] [phone] * (ABNORMAL) Basic metabolic panel (06/14/2024 5:14 AM EST) Sodium 133 133 - 145 mmol/L LAB CHEMISTRY METHOD 06/14/2024 5:57 AM EST [facility] Potassium 3.8 3.5 - 5.5 mmol/L LAB CHEMISTRY METHOD 06/14/2024 5:57 AM [facility] Chloride 99 96 - 110 mmol/L LAB CHEMISTRY METHOD 06/14/2024 5:57 AM EST [facility] CO2 31 21 - 32 mmol/L LAB CHEMISTRY METHOD 06/14/2024 5:57 AM [facility] Anion Gap 3 3 - 11 LAB CHEMISTRY METHOD 06/14/2024 5:57 AM [facility] Glucose 131(H) 70 - 100 mg/dL LAB CHEMISTRY METHOD 06/14/2024 5:57 AM [facility] BUN 13 5 - 25 mg/dL LAB CHEMISTRY METHOD 06/14/2024 5:57 AM [facility] Creatinine 0.56(L) 0.70 - 1.30 mg/dL LAB CHEMISTRY METHOD 06/14/2024 5:57 AM [facility] eGFR 109 >=60 mL/min/1. 73m2 LAB CHEMISTRY METHOD 06/14/2024 5:57 AM [facility] Comment:Calculation based on the??Chronic Kidney Disease Epidemiology Collaboration (CKD-EPI) equation refit??without adjustment for race. BUN/Creatinine Ratio 23.2 LAB CHEMISTRY METHOD 06/14/2024 5:57 AM [facility] Calcium 8.2(L) 8.5 - 10.5 mg/dL LAB CHEMISTRY METHOD 06/14/2024 5:57 AM [facility] Blood Venous blood specimen / Unknown Venipuncture / Unknown 06/14/2024 5:14 AM EST 06/14/2024 5:34 AM EST us Napoleon Neely MD LAB BLOOD ORDERABLES Final Re sult [facility] [address] [place] [address], * Culture blood (06/14/2024 5:14 AM EST) Culture, Blood No growth at 5 days 06/19/2024 6:01 AM [facility] Blood Venous blood specimen / Unknown Venipuncture / Unknown 06/14/2024 5:14 AM EST 06/14/2024 5:33 AM EST Napoleon Neely MD LAB MICROBIOLOGY - GENERAL OR DERABLES Final Result Performing Organization Address [facility] Co de Phone Number [facility] [address] [place] [address], [place] [phone] * (ABNORMAL) Lactate, with reflex (06/13/2024 3:34 PM EST) LACTIC ACID 2.6(H) 0.4 - 2.0 mmol/L LAB CHEMISTRY METHOD 06/13/2024 4:40 PM EST [facility] Blood Venous blood specimen / Unknown Venipuncture / Unknown 06/13/2024 3:34 PM EST 06/13/2024 4:07 PM EST Barak Benjamin MD LAB BLOOD ORDERABLES Berenice l Result Performing Organization Address [facility] de Phone Number [facility] [address] [place] [address], [place] [phone] * Prostate specific antigen screen (06/13/2024 12:37 PM EST) Pathologist [facility] PSA 0.18 0.00 - 4.00 ng/mL LAB CHEMISTRY METHOD 06/13/2024 2:31 PM EST [facility] Blood Venous blood specimen / Unknown Venipuncture / Unknown 06/13/2024 12:37 PM EST 06/13/2024 12:55 PM EST Narrative [facility] - 06/13/2024 2:31 PM EST The Siemens Advia Centaur Chemiluminescent Immunoassay is used. Results obtained with different assay methods or kits cannot be used interchangeably. Results cannot be interpreted as absolute evidence of the presence or absence of malignant disease. Napoleon Neely MD LAB BLOOD ORDERABLES Final Re sult Performing Organization Address [facility] Co de Phone Number [facility] [address] [place] [address], [place] [phone] * (ABNORMAL) Hepatic function panel (06/13/2024 12:37 PM EST) Total Protein 5.9(L) 6.0 - 8.0 g/dL LAB CHEMISTRY METHOD 06/13/2024 2:25 PM EST [facility] Albumin 2.3(L) 3.2 - 5.0 g/dL LAB CHEMISTRY METHOD 06/13/2024 2:25 PM EST [facility] Total Bilirubin 2.6(H) 0.0 - 1.4 mg/dL LAB CHEMISTRY METHOD 06/13/2024 2:25 PM [facility] Bilirubin, Direct 1.4(H) 0.0 - 0.3 mg/dL LAB CHEMISTRY METHOD 06/13/2024 2:25 PM EST [facility] Bilirubin, Indirect 1.2(H) 0.0 - 1.1 mg/dL LAB CHEMISTRY METHOD 06/13/2024 2:25 PM EST [facility] ALT (SGPT) 20 10 - 60 unit/L LAB CHEMISTRY METHOD 06/13/2024 2:25 PM EST [facility] AST (SGOT) 32 10 - 42 unit/L LAB CHEMISTRY METHOD 06/13/2024 2:25 PM EST [facility] Alkaline Phosphatase 133(H) 42 - 121 unit/L LAB CHEMISTRY METHOD 06/13/2024 2:25 PM [facility] Blood Venous blood specimen / Unknown Venipuncture / Unknown 06/13/2024 12:37 PM EST 06/13/2024 12:55 PM EST Napoleon Neely MD LAB BLOOD ORDERABLES Final Re sult [facility] [address] [place] [address], [place] [phone] * (ABNORMAL) C-reactive protein (06/13/2024 12:37 PM EST) [facility] C-Reactive Protein 10.20(H) <=0.50 mg/dL LAB CHEMISTRY METHOD 06/13/2024 2:25 PM [facility] Blood Venous blood specimen / Unknown Venipuncture / Unknown 06/13/2024 12:37 PM EST 06/13/2024 12:55 PM EST us Napoleon Neely MD LAB BLOOD ORDERABLES Final Re sult [facility] [address] [place] [address], [place] [phone] * (ABNORMAL) Basic metabolic panel (06/13/2024 12:37 PM EST) [facility] Sodium 133 133 - 145 mmol/L LAB CHEMISTRY METHOD 06/13/2024 1:21 PM [facility] Potassium 4.0 3.5 - 5.5 mmol/L LAB CHEMISTRY METHOD 06/13/2024 1:21 PM [facility] Chloride 102 96 - 110 mmol/L LAB CHEMISTRY METHOD 06/13/2024 1:21 PM [facility] CO2 26 21 - 32 mmol/L LAB CHEMISTRY METHOD 06/13/2024 1:21 PM [facility] Anion Gap 5 3 - 11 LAB CHEMISTRY METHOD 06/13/2024 1:21 PM [facility] Glucose 178(H) 70 - 100 mg/dL LAB CHEMISTRY METHOD 06/13/2024 1:21 PM [facility] BUN 13 5 - 25 mg/dL LAB CHEMISTRY METHOD 06/13/2024 1:21 PM [facility] Creatinine 0.65(L) 0.70 - 1.30 mg/dL LAB CHEMISTRY METHOD 06/13/2024 1:21 PM EST [facility] eGFR 104 >=60 mL/min/1. 73m2 LAB CHEMISTRY METHOD 06/13/2024 1:21 PM EST [facility] Comment:Calculation based on the??Chronic Kidney Disease Epidemiology Collaboration (CKD-EPI) equation refit??without adjustment for race. BUN/Creatinine Ratio 20.0 LAB CHEMISTRY METHOD 06/13/2024 1:21 PM EST [facility] Calcium 8.2(L) 8.5 - 10.5 mg/dL LAB CHEMISTRY METHOD 06/13/2024 1:21 PM EST [facility] Blood Venous blood specimen / Unknown Venipuncture / Unknown 06/13/2024 12:37 PM EST 06/13/2024 12:55 PM EST us Barak Benjamin MD LAB BLOOD ORDERABLES Berenice frank Result [facility] [address] [place] [address], [place] [phone] * (ABNORMAL) CBC auto differential (06/13/2024 12:37 PM EST) WBC 6.9 4.8 - 10.8 K/mcL LAB HEMETOLOGY METHOD 06/13/2024 1:10 PM [facility] RBC 3.20(L) 4.50 - 5.50 M/mcL LAB HEMETOLOGY METHOD 06/13/2024 1:10 PM [facility] Hemoglobin 11.0(L) 13.5 - 17.5 g/dL LAB HEMETOLOGY METHOD 06/13/2024 1:10 PM [facility] Hematocrit 32.8(L) 42.0 - 54.0 % LAB HEMETOLOGY METHOD 06/13/2024 1:10 PM [facility] MCV 104.1(H) 79.0 - 98.0 FL LAB HEMETOLOGY METHOD 06/13/2024 1:10 PM [facility] MCH 34.9(H) 27.0 - 32.0 pcg LAB HEMETOLOGY METHOD 06/13/2024 1:10 PM [facility] MCHC 33.5 32.0 - 37.0 g/dL LAB HEMETOLOGY METHOD 06/13/2024 1:10 PM [facility] RDW 17.6(H) 11.0 - 15.0 % LAB HEMETOLOGY METHOD 06/13/2024 1:10 PM [facility] Platelets 74(L) 130 - 400 K/mcL LAB HEMETOLOGY METHOD 06/13/2024 1:10 PM [facility] Comment:previously verified by slide MPV 11.2(H) 7.0 - 11.0 FL LAB HEMETOLOGY METHOD 06/13/2024 1:10 [facility] NRBC 0.0 <1.0 % LAB HEMETOLOGY METHOD 06/13/2024 1:10 PM [facility] NRBC Absolute 0.00 <0.10 K/mcL LAB HEMETOLOGY METHOD 06/13/2024 1:10 PM [facility] Neutrophils Relative 87.5 % LAB HEMETOLOGY METHOD 06/13/2024 1:10 PM [facility] Lymphocytes Relative 5.5 % LAB HEMETOLOGY METHOD 06/13/2024 1:10 PM [facility] Monocytes Relative 6.4 % LAB HEMETOLOGY METHOD 06/13/2024 1:10 PM [facility] Eosinophils Relative 0.1 % LAB HEMETOLOGY METHOD 06/13/2024 1:10 PM [facility] Basophils Relative 0.1 % LAB HEMETOLOGY METHOD 06/13/2024 1:10 PM [facility] Immature Granulocytes Relative 0.4 % LAB HEMETOLOGY METHOD 06/13/2024 1:10 PM EST [facility] Neutrophils Absolute 6.01 1.50 - 7.00 K/mcL LAB HEMETOLOGY METHOD 06/13/2024 1:10 PM EST [facility] Lymphocytes Absolute 0.38(L) 1.00 - 5.00 K/mcL LAB HEMETOLOGY METHOD 06/13/2024 1:10 PM EST [facility] Monocytes Absolute 0.44 0.20 - 1.00 K/mcL LAB HEMETOLOGY METHOD 06/13/2024 1:10 PM EST [facility] Eosinophils Absolute 0.01 0.00 - 0.50 K/mcL LAB HEMETOLOGY METHOD 06/13/2024 1:10 PM EST [facility] Basophils Absolute 0.01 0.00 - 0.20 K/mcL LAB HEMETOLOGY METHOD 06/13/2024 1:10 PM EST [facility] Immature Granulocytes Absolute 0.03 0.00 - 0.03 K/[facility] HEMETOLOGY METHOD 06/13/2024 1:10 PM EST [facility] Blood Venous blood specimen / Unknown Venipuncture / Unknown 06/13/2024 12:37 PM EST 06/13/2024 12:55 PM EST us Barak Benjamin MD LAB BLOOD ORDERABLES Berenice frank Result [facility] [address] [place] [address], * (ABNORMAL) Lactate, with reflex (06/13/2024 12:37 PM EST) LACTIC ACID 2.9(H) 0.4 - 2.0 mmol/L LAB CHEMISTRY METHOD 06/13/2024 1:26 PM EST [facility] Blood Venous blood specimen / Unknown Venipuncture / Unknown 06/13/2024 12:37 PM EST 06/13/2024 12:55 PM EST us Barak Benjamin MD LAB BLOOD ORDERABLES Berenice frank Result [facility] [address] [place] [address], documented in this encounter Visit Diagnoses Diagnosis Pseudomonal bacteremia- Primary Bacteremia Alex catheter in place Other postprocedural status Urinary tract infection associated with indwelling urethral catheter, initial encounter ([facility]) Hx of ascites Anasarca Edema documented in this encounter Admitting Diagnoses Diagnosis Pseudomonal bacteremia documented in this encounter Administered Medications Inactive Administered Medications - up to 3 most recent administrations Medication Order MAR Action Action Date Dose Rate Site acetaminophen (TYLENOL) tablet 650 mg 650 mg, oral, Every 8 hours PRN, mild pain, fever - temperature GREATER than 38 C (100.4 F), Starting on 06/13/24 at 1403 apixaban (ELIQUIS) tablet 5 mg 5 mg, oral, 2 times daily, First dose on 06/14/24 at 2100, Indication: VTE/PE Treatment Given 06/15/2024 9:32 PM EST 5 mg Given 06/15/2024 8:33 AM EST 5 mg Given 06/14/2024 8:54 PM EST 5 mg atorvastatin (LIPITOR) tablet 20 mg 20 mg, oral, Nightly, First dose on 06/13/24 at 2100 Given 06/15/2024 9:32 PM EST 20 mg Given 06/14/2024 8:54 PM EST 20 mg Given 06/13/2024 9:23 PM EST 20 mg cefepime (MAXIPIME) 2 g in sterile water 20 mL IV syringe 2 g, intravenous, at 240 mL/hr, Administer over 5 Minutes, Once, On 06/13/24 at 1213, For 1 dose, Indication: Sepsis, Urinary Tract/Genitourinary, Suspected source: Complicated pyelonephritis or UTI with bacteremia Given 06/13/2024 12:39 PM EST 2 g 240 mL/hr cefepime (MAXIPIME) 2 g in sterile water 20 mL IV syringe 2 g, intravenous, at 240 mL/hr, Administer over 5 Minutes, Every 8 hours, First dose on Fri06/13/24 at 2000, For 7 days, Indication: Bacteremia Given 06/16/2024 1:00 PM EST 2 g 240 mL/hr Given 06/16/2024 5:04 AM EST 2 g 240 mL/hr Given 06/15/2024 9:32 PM EST 2 g 240 mL/hr cholecalciferol (VITAMIN D-3) tablet 2,000 Units 2,000 Units, oral, Daily, First dose on Fri06/13/24 at 1701, 1000 units = 25 mcg of cholecalciferol (VITAMIN D3) Given 06/16/2024 9:19 AM EST 2,000 Units Given 06/15/2024 8:33 AM EST 2,000 Units Given 06/14/2024 8:47 AM EST 2,000 Units furosemide (LASIX) tablet 20 mg 20 mg, oral, Every 24 hours, First dose on Fri06/14/24 at 1500, 40mg in AM and 20mg in PM Given 06/16/2024 2:24 PM EST 2 0 mg Given 06/15/2024 5:21 PM EST 20 mg Given 06/14/2024 3:19 PM EST 20 mg furosemide (LASIX) tablet 40 mg 40 mg, oral, Daily, First dose (after last modification) on Fri06/14/24 at 0900 Given 06/16/2024 9:21 AM EST 40 mg Given 06/15/2024 8:33 AM EST 40 mg Given 06/14/2024 8:47 AM EST 40 mg levoFLOXacin (LEVAQUIN) IVPB 750 mg 750 mg, intravenous, at 100 mL/hr, Administer over 90 Minutes, Every 24 hours, First dose on Fri06/13/24 at 1430, For 7 days, Indication: Bacteremia New Bag 06/13/2024 4:49 PM EST 750 mg 100 mL/h r lidocaine (XYLOCAINE) 1 % injection 5 mL 5 mL, intradermal, Once in imaging, Starting on Fri06/14/24 at 1017, For 1 dose Given 06/14/2024 10:18 AM EST 5 mL magnesium hydroxide (MILK OF MAGNESIA) 400 mg/5 mL suspension 30 mL 30 mL, oral, Daily PRN, constipation, Starting on Fri06/13/24 at 1358, 1st line for treatment of constipation - give scheduled if no bowel movement in past 24 hours Given 06/15/2024 1:07 PM EST 30 mL naloxone (NARCAN) injection 0.04 mg 0.04 mg, intravenous, As needed, opioid reversal, IV Push every 1 min for 10 doses, Starting on Fri06/13/24 at 1358, For 10 doses, To Dilute: -Use 0.4 mg/mL vial , withdraw 1 mL and add 9 mL NS -FOLLOWING DILUTION, dose of 0.04 mg = 1 mL For PARTIAL Opioid Reversal: -For respiratory rate LESS than 10 or Pasero Opioid-induced Sedation Scale (POSS) equal to 4 -May be repeated at 1 minute intervals to restore adequate respirations -Administer up to 10 doses (0.4 mg) oxyBUTYnin XL (DITROPAN-XL) 24 hr tablet 5 mg 5 mg, oral, Daily, First dose on Fri06/14/24 at 0900, Do not crush, chew, or split. Given 06/16/2024 9:21 AM EST 5 mg Given 06/15/2024 8:33 AM EST 5 mg Given 06/14/2024 8:48 AM EST 5 mg oxyCODONE (ROXICODONE) immediate release tablet 10 mg 10 mg, oral, Every 4 hours PRN, severe pain, Starting on Fri06/13/24 at 1840 Given 06/16/2024 1:00 PM EST 10 mg Given 06/16/2024 5:15 AM EST 10 mg Given 06/15/2024 9:33 PM EST 10 mg oxyCODONE (ROXICODONE) immediate release tablet 5 mg 5 mg, oral, Every 4 hours PRN, severe pain, Starting on Fri06/13/24 at 1700 Given 06/13/2024 5:16 PM EST 5 mg perflutren lipid microsphere (DEFINITY) 1.3 mL in sodium chloride 0.9% 8.7 mL injection 10 mL, intravenous, Administer over 10 Minutes, Once, On Fri06/15/24 at 1500, For 1 dose Given 06/15/2024 2:36 PM EST 10 mL polyethylene glycol (MIRALAX) packet 17 g 17 g, oral, Daily, First dose on Fri06/14/24 at 0900, Bowel Regimen - for prevention of constipation Given 06/16/2024 9:19 AM EST 17 g Given 06/15/2024 8:33 AM EST 17 g Given 06/14/2024 8:47 AM EST 17 g sodium chloride 0.9 % flush 10 mL 10 mL, intravenous, 2 times daily, First dose on 06/13/24 at 1405 Given 06/16/2024 1:02 PM EST 10 mL Given 06/16/2024 9:23 AM EST 10 mL Given 06/15/2024 9:32 PM EST 10 mL sodium chloride 0.9 % flush 10 mL 10 mL, intravenous, As needed, line care, Starting on 06/13/24 at 1358 sodium chloride 0.9 % infusion 100 mL/hr, intravenous, Continuous, Starting on Fri06/13/24 at 1213 Rate/Dose Verify 06/14/2024 1:13 AM EST 100 mL/hr 100 mL/hr Rate/Dose Verify 06/13/2024 11:07 PM EST 100 mL/hr 100 mL /hr Rate/Dose Verify 06/13/2024 6:37 PM EST 100 mL/hr 100 mL/ hr spironolactone (ALDACTONE) tablet 150 mg 150 mg, oral, Daily, First dose on Fri06/14/24 at 0900, HAZARDOUS Drug Precautions - Low [...] capsules only for allowable dosage forms Given 06/16/2024 9:20 AM EST 150 mg Given 06/15/2024 8:33 AM EST 150 mg Given 06/14/2024 8:48 AM EST 150 mg tamsulosin (FLOMAX) 24 hr capsule 0.4 mg 0.4 mg, oral, Daily, First dose on 06/13/24 at 1713, For oral administration: capsules should be swallowed whole (Do not crush, chew, or open). For tube administration: open capsule and administer with water (granules should NOT be crushed). Given 06/16/2024 9:20 AM EST 0.4 mg Given 06/15/2024 8:33 AM EST 0.4 mg Given 06/14/2024 8:47 AM EST 0.4 mg zolpidem (AMBIEN) tablet 10 mg 10 mg, oral, Nightly PRN, sleep, Starting on 06/13/24 at 1700 Given 06/15/2024 9:40 PM EST 10 mg Given 06/14/2024 8:56 PM EST 10 mg Given 06/13/2024 10:36 PM EST 10 mg documented in this encounter Discontinued Medications Medication Sig Discontinue Reason Start Date End Da te apixaban (ELIQUIS) starter pack Take 2 tablets (10 mg total) by mouth 2 (two) times a day for 7 days. Then take 1 tablet (5 mg total) by mouth 2 (two) times a day. Stop Taking at Discharge 05/25/2024 06/16/2024 doxycycline (MONODOX) 100 mg capsule Take 1 capsule (100 mg total) by mouth 2 (two) times a day for 10 days. Take with at least 8 ounces (large glass) of water, do not lie down for 30 minutes after. Administer 2 hours before or after multivitamins, antacids, or other products containing polyvalent cations (i.e., calcium, iron, magnesium, selenium, zinc). Stop Taking at Discharge 06/12/2024 06/16/2024 levoFLOXacin (LEVAQUIN) 250 mg tablet Take 3 tablets (750 mg total) by mouth 1 (one) time each day for 7 days. Stop Taking at Discharge 06/13/2024 06/16/2024 furosemide (LASIX) 40 mg tablet Take 1 tablet (40 mg total) by mouth 1 (one) time each day. Stop Taking at Discharge 06/16/2024 documented as of this encounter Historical Medications * This list may reflect changes made after this encounter. oxyCODONE (ROXICODONE) 10 mg immediate release tablet Take 1 tablet (10 mg total) by mouth every 4 (four) hours if needed for severe pain. Max Daily Amount: 60 mg apixaban (ELIQUIS) 5 mg tablet Take 1 tablet (5 mg total) by mouth 2 (two) times a day. oxyBUTYnin XL (DITROPAN-XL) 5 mg 24 hr tablet Take 1 tablet (5 mg total) by mouth 1 (one) time each day. 06/03/2024 tamsulosin (FLOMAX) 0.4 mg 24 hr capsule Take 1 capsule (0.4 mg total) by mouth 1 (one) time each day. furosemide (LASIX) 40 mg tablet Take 1 tablet (40 mg total) by mouth 1 (one) time each day. 06/16/2024 added in this encounter Active and Recently Administered Medications Times are shown in EST. Scheduled Medication Order 06/14/2024 06/15/2024 06/16/2024 apixaban (ELIQUIS) tablet 5 mg 5 mg, oral, 2 times daily, First dose on Fri06/14/24 at 2100, Indication: VTE/PE Treatment 2053 (Given - Provider: Sisi Barber RN) 0833 (Given - Provider: Ruchi Pedro RN)2131 (Given - Provider: Sisi Barber RN) 0923 (Not Given - Provider: Saskia George RN - Reason: Other - Comment: patient declined) atorvastatin (LIPITOR) tablet 20 mg 20 mg, oral, Nightly, First dose on Fri06/13/24 at 2100 2053 (Given - Provider: Sisi Barber RN) 2131 (Given - Provider: Sisi Barber RN) cefepime (MAXIPIME) 2 g in sterile water 20 mL IV syringe 2 g, intravenous, at 240 mL/hr, Administer over 5 Minutes, Every 8 hours, First dose on Fri06/13/24 at 2000, For 7 days, Indication: Bacteremia 0441 (Given - Provider: Patricia Hayes, VIVIAN)1219 (Given - Provider: Maria G Mccarty RN)2053 (Given - Provider: Sisi Barber RN) 0536 (Given - Provider: Sisi Barber RN - Comment: q8; given @2100)1307 (Given - Provider: Ruchi Pedro RN)2131 (Given - Provider: Sisi Barber RN) 050 (Given - Provider: Sisi Barber VIVIAN)1300 (Given - Provider: Saskia George, VIVIAN) cholecalciferol (VITAMIN D-3) tablet 2,000 Units 2,000 Units, oral, Daily, First dose on Fri06/13/24 at 1701, 1000 units = 25 mcg of cholecalciferol (VITAMIN D3) 0847 (Given - Provider: Maria G Mccarty, VIVIAN) 0833 (Given - Provider: Ruchi Pedro, VIVIAN) 0919 (Given - Provider: Saskia George, RN) furosemide (LASIX) tablet 20 mg 20 mg, oral, Every 24 hours, First dose on Fri06/14/24 at 1500, 40mg in AM and 20mg in PM 1519 (Given - Provider: Jamel Holder RN) 1721 (Given - Provider: Ruchi Pedro RN) 1424 (Given - Provider: Saskia George RN) furosemide (LASIX) tablet 40 mg 40 mg, oral, Daily, First dose (after last modification) on Fri06/14/24 at 0900 0847 (Given - Provider: Maria G Mccarty RN) 0833 (Given - Provider: Ruchi Pedro RN) 0921 (Given - Provider: Saskia George RN) lidocaine (XYLOCAINE) 1 % injection 5 mL (COMPLETED) 5 mL, intradermal, Once in imaging, Starting on Fri06/14/24 at 1017, For 1 dose 1018 (Given - Provider: Yue Kingsley) oxyBUTYnin XL (DITROPAN-XL) 24 hr tablet 5 mg 5 mg, oral, Daily, First dose on Fri06/14/24 at 0900, Do not crush, chew, or split. 0848 (Given - Provider: Maria G Mccarty RN) 0833 (Given - Provider: Ruchi Pedro RN) 0921 (Given - Provider: Saskia George, VIVIAN) perflutren lipid microsphere (DEFINITY) 1.3 mL in sodium chloride 0.9% 8.7 mL injection (COMPLETED) 10 mL, intravenous, Administer over 10 Minutes, Once, On Fri06/15/24 at 1500, For 1 dose 1436 (Given - Provider: Boubacar Bartlett) polyethylene glycol (MIRALAX) packet 17 g 17 g, oral, Daily, First dose on Fri06/14/24 at 0900, Bowel Regimen - for prevention of constipation 0847 (Given - Provider: Maria G Mccarty, VIVIAN) 0833 (Given - Provider: Ruchi Pedro, VIVIAN) 0919 (Given - Provider: Saskia George, RN) sodium chloride 0.9 % flush 10 mL(Linked Group 1) 10 mL, intravenous, 2 times daily, First dose on Fri06/13/24 at 1405 0857 (Given - Provider: Maria G Mccarty, VIVIAN)2101 (Given - Provider: Sisi Barber, RN) 0833 (Given - Provider: Ruchi Pedro, VIVIAN)2132 (Given - Provider: Sisi Barber, RN) 0923 (Given - Provider: Saskia George, RN)1302 (Given - Provider: Saskia George RN - Comment: line maint) spironolactone (ALDACTONE) tablet 150 mg 150 mg, oral, Daily, First dose on Fri06/14/24 at 0900, HAZARDOUS Drug Precautions - Low [...] of capsules only for allowable dosage forms 0848 (Given - Provider: Maria G Mccarty, VIVIAN) 0833 (Given - Provider: Ruchi Pedro, VIVIAN) 0920 (Given - Provider: Saskia George, VIVIAN) tamsulosin (FLOMAX) 24 hr capsule 0.4 mg 0.4 mg, oral, Daily, First dose on Fri06/13/24 at 1713, For oral administration: capsules should be swallowed whole (Do not crush, chew, or open). For tube administration: open capsule and administer with water (granules should NOT be crushed). 0847 (Given - Provider: Maria G Mccarty, RN) 0833 (Given - Provider: Ruhci Pedro, VIVIAN) 0920 (Given - Provider: Saskia George RN) Continuous Medication Order 06/14/2024 06/15/2024 06/16/2024 sodium chloride 0.9 % infusion (CANCELED) 100 mL/hr, intravenous, Continuous, Starting on 06/13/24 at 1213 0113 (Rate/Dose Verify - Provider: Patricia Hayes, VIVIAN)0142 (Stopped - Provider: Patricia Hayes, RN) PRN Medication Order 06/14/2024 06/15/2024 06/16/2024 acetaminophen (TYLENOL) tablet 650 mg 650 mg, oral, Every 8 hours PRN, mild pain, fever - temperature GREATER than 38 C (100.4 F), Starting on 06/13/24 at 1403 magnesium hydroxide (MILK OF MAGNESIA) 400 mg/5 mL suspension 30 mL 30 mL, oral, Daily PRN, constipation, Starting on 06/13/24 at 1358, 1st line for treatment of constipation - give scheduled if no bowel movement in past 24 hours 1307 (Given - Provider: Ruchi Pedro RN) naloxone (NARCAN) injection 0.04 mg 0.04 mg, intravenous, As needed, opioid reversal, IV Push every 1 min for 10 doses, Starting on 06/13/24 at 1358, For 10 doses, To Dilute: -Use 0.4 mg/mL vial , withdraw 1 mL and add 9 mL NS -FOLLOWING DILUTION, dose of 0.04 mg = 1 mL For PARTIAL Opioid Reversal: -For respiratory rate LESS than 10 or Pasero Opioid-induced Sedation Scale (POSS) equal to 4 -May be repeated at 1 minute intervals to restore adequate respirations -Administer up to 10 doses (0.4 mg) oxyCODONE (ROXICODONE) immediate release tablet 10 mg 10 mg, oral, Every 4 hours PRN, severe pain, Starting on 06/13/24 at 1840 0854 (Given - Provider: Maria G Mccarty, VIVIAN)2055 (Given - Provider: Sisi Barber, VIVIAN) 0832 (Given - Provider: Ruchi Pedro RN)1308 (Given - Provider: Ruchi Pedro, VIVIAN)2133 (Given - Provider: Sisi Barber, RN) 0515 (Given - Provider: Sisi Barber, RN)1300 (Given - Provider: Saskia George RN) sodium chloride 0.9 % flush 10 mL(Linked Group 1) 10 mL, intravenous, As needed, line care, Starting on 06/13/24 at 1358 zolpidem (AMBIEN) tablet 10 mg 10 mg, oral, Nightly PRN, sleep, Starting on 06/13/24 at 1700 2056 (Given - Provider: Sisi Barber, VIVIAN) 2140 (Given - Provider: Sisi Barber, VIVIAN - Comment: mis trejo unable to scan) Linked Groups Order Group 1: Insert peripheral IV (CANCELED) STAT, Once, On 06/13/24 at 1359, For 1 occurrence And Maintain IV access (CANCELED) Until discontinued, Starting on 06/13/24 at 1359, Until Specified And Saline lock IV (CANCELED) Routine, Once, On 06/13/24 at 1359, For 1 occurrence And sodium chloride 0.9 % flush 10 mLJump to med 10 mL, intravenous, 2 times daily, First dose on 06/13/24 at 1405 And sodium chloride 0.9 % flush 10 mLJump to med 10 mL, intravenous, As needed, line care, Starting on 06/13/24 at 1358 documented in this encounter Orders Medications Ordered That Jaciel ht Not Have Been Administered Count Last Ordered Date First Ordered Date acetaminophen (TYLENOL) tablet 650 mg 1 furosemide (LASIX) tablet 40 mg 1 naloxone (NARCAN) injection 0.04 mg 1 06/13 ondansetron (PF) (ZOFRAN) injection 4 mg 1 06/13/2024 sodium chloride 0.9 % flush 10 mL 1 025 Consult Count Last Ordered Date First Orde red Date POST ACUTE HOME HEALTH CARE REQUEST 1 06/16 IP CONSULT TO INFECTIOUS DISEASES 1 025 IP CONSULT TO SOCIAL WORK 1 06/14/2024 Respiratory Care Count Last Ordered Date First Ordered Date CPAP NIV 2 06/14/2024 06/13/2024 Admission Count Last Ordered Date First Orde red Date ADMIT TO INPATIENT 1 06/13/2024 Transfer Count Last Ordered Date First Orde red Date TRANSFER PATIENT TO NEW UNIT 1 06/14/2024 ED TO FLOOR BED REQUEST 1 06/13/2024 Discharge Count Last Ordered Date First Orde red Date DISCHARGE PATIENT 1 06/16/2024 documented in this encounter Care Teams Director Of Teenage Activities Relationship Specialty Start Date End Date Dalia Harmon PA [address] [place] [address], [address] [place] [address] PCP - General 05/10/24 documented as of this encounter
--- OUTSIDE RECORDS SUMMARY | 2024-06-23 12:23 | XMS_ITS | Encounter Summary ---
Author Organization [facility] Address [id number] [place] [id number] Care Team Providers Care Adult Basic Studies Teacher Name Role Phone Dalia Harmon Primary Care Provider [phone] Encounter Details Date Type Department Care Team (Late st Contact Info) Description 06/18/[address] [facility] - Main Lab [address] [facility] [place] [address] Gerry Barksdale [address] [facility] [phone] [place] [phone] Sepsis, unspecified organism (CMS/HCC) Social History Tobacco [...] Yuni Oneill RN documented in this encounter Plan of Treatment Upcoming Encounters Date Type Department Care Team (Latest Contact Info) Description 06/24/2024 11:20 AM EST Office Visit Gastroenterology - [place] [address] [facility] [address] [phone] Han Sloan DO [address] [address] 07/06/2024 1:00 PM EDT Appointment [facility] Interventional Radiology [address] [place] [phone] 08/12/2024 10:30 AM EDT Ancillary Procedure [facility] [address] [phone] documented as of this encounter Visit Diagnoses Diagnosis Sepsis, unspecified organism (CMS/HCC) documented in this encounter Care Teams Adult Basic Studies Teacher Relationship Specialty Start Date End Date Dalia Harmon PA [address] [place] [address], [address] [place] [address] PCP - General 05/10/24 documented as of this encounter
--- OUTSIDE RECORDS SUMMARY | 2024-06-23 12:23 | XMS_ITS | Encounter Summary ---
Author Organization [facility] Address [id number] [place] [phone] Care Team Providers Care Transitions Manager Rn Name Role Phone Dalia Harmon Primary Care Provider [phone] Encounter Details Date Type Department Care Team (Late st Contact Info) Description 03/04/2024 Lab Requisition [facility] - Main Lab [address] [facility] [employer] [place] [address] Gerry Barksdale MD [address] [facility] 1 [place] [address] Vitamin D deficiency, unspecified; Type 2 diabetes [...] 11:20 AM EST Office Visit Gastroenterology - [place] [address] [facility] [address] [place] [address] Han Sloan DO 175 [facility] 200 [place] [address] 07/06/2024 1:00 PM EDT Appointment [facility] Interventional Radiology [address] [place] [phone] 08/12/2024 10:30 AM EDT Ancillary Procedure [facility] - [address] [place] [phone] documented as of this encounter Procedures Procedure [...] D 25 hydroxy (03/04/2024 9:21 AM EST) [facility] Vit D, 25-Hydroxy 33.8 30.0 - 80.0 ng/mL LAB CHEMISTRY METHOD 03/04/2024 12:40 PM EST [facility] Blood Venous blood specimen / Unknown Venipuncture / Unknown 03/04/2024 9:21 AM EST 03/04/2024 11:40 AM EST us Gerry Barksdale MD LAB BLOOD ORDERABLES Final Re sult Performing Organization Address [facility]/ZIP Co de Phone Number [facility] [address] [place] [address], [place] [phone] * Hemoglobin A1c (03/04/2024 9:21 AM EST) [facility] Hemoglobin A1C 4.7 <6.5 % LAB CHEMISTRY METHOD 03/04/2024 2:46 PM [facility] Mean Bld Glu Estim. 88 mg/dL LAB CHEMISTRY METHOD 03/04/2024 2:46 PM [facility] Blood Venous blood specimen / Unknown Venipuncture / Unknown 03/04/2024 9:21 AM EST 03/04/2024 11:40 AM EST us Gerry Barksdale MD LAB BLOOD ORDERABLES Final Re sult Performing Organization Address [facility]/ZIP Co de Phone Number [facility] [address] [place] [address], [place] [phone] * (ABNORMAL) Vitamin B12 (03/04/2024 9:21 AM EST) [facility] Vitamin B-12 923(H) 250 - 900 pcg/mL LAB CHEMISTRY METHOD 03/04/2024 1:03 PM EST [facility] Blood Venous blood specimen / Unknown Venipuncture / Unknown 03/04/2024 9:21 AM EST 03/04/2024 11:40 AM EST us Gerry Barksdale MD LAB BLOOD ORDERABLES Final Re sult Performing Organization Address [facility]/ZIP Co de Phone Number [facility] [address] [place] [address], [place] [phone] * Folate (03/04/2024 9:21 AM EST) Pathologist [facility] Folate 11.0 2.8 - 17.0 ng/ml LAB CHEMISTRY METHOD 03/04/2024 1:03 PM EST [facility] Blood Venous blood specimen / Unknown Venipuncture / Unknown 03/04/2024 9:21 AM EST 03/04/2024 11:40 AM EST us Gerry Barksdale MD LAB BLOOD ORDERABLES Final Re sult Performing Organization Address [facility] de Phone Number [facility] [address] [place] [address], * Thyroid stimulating hormone (03/04/2024 9:21 AM EST) Pathologist [facility] TSH 3.12 0.40 - 4.00 mcIU/mL LAB CHEMISTRY METHOD 03/04/2024 12:40 PM EST [facility] Blood Venous blood specimen / Unknown Venipuncture / Unknown 03/04/2024 9:21 AM EST 03/04/2024 11:40 AM EST us Gerry Barksdale MD LAB BLOOD ORDERABLES Final Re sult Performing Organization Address City/[facility]/ZIP Co de Phone Number [facility] [address] [place] [address], [place] [phone] * (ABNORMAL) Comprehensive metabolic panel (03/04/2024 9:21 AM EST) Pathologist [facility] Sodium 137 133 - 145 mmol/L LAB CHEMISTRY METHOD 03/04/2024 1:03 PM EST [facility] Potassium 4.2 3.5 - 5.5 mmol/L LAB CHEMISTRY METHOD 03/04/2024 1:03 PM [facility] Chloride 100 96 - 110 mmol/L LAB CHEMISTRY METHOD 03/04/2024 1:03 PM [facility] CO2 29 21 - 32 mmol/L LAB CHEMISTRY METHOD 03/04/2024 1:03 PM [facility] Anion Gap 8 3 - 11 LAB CHEMISTRY METHOD 03/04/2024 1:03 PM [facility] Glucose 217(H) 70 - 100 mg/dL LAB CHEMISTRY METHOD 03/04/2024 1:03 PM [facility] BUN 18 5 - 25 mg/dL LAB CHEMISTRY METHOD 03/04/2024 1:03 PM [facility] Creatinine 0.64(L) 0.70 - 1.30 mg/dL LAB CHEMISTRY METHOD 03/04/2024 1:03 PM [facility] eGFR 104 >=60 mL/min/1. 73m2 LAB CHEMISTRY METHOD 03/04/2024 1:03 PM [facility] Comment:Calculation based on the??Chronic Kidney Disease Epidemiology Collaboration (CKD-EPI) equation refit??without adjustment for race. BUN/Creatinine Ratio 28.1 LAB CHEMISTRY METHOD 03/04/2024 1:03 PM [facility] Calcium 8.5 8.5 - 10.5 mg/dL LAB CHEMISTRY METHOD 03/04/2024 1:03 PM [facility] AST (SGOT) 38 10 - 42 unit/L LAB CHEMISTRY METHOD 03/04/2024 1:03 PM [facility] ALT (SGPT) 25 10 - 60 unit/L LAB CHEMISTRY METHOD 03/04/2024 1:03 PM [facility] Alkaline Phosphatase 136(H) 42 - 121 unit/L LAB CHEMISTRY METHOD 03/04/2024 1:03 PM [facility] Total Protein 5.7(L) 6.0 - 8.0 g/dL LAB CHEMISTRY METHOD 03/04/2024 1:03 PM [facility] Albumin 2.6(L) 3.2 - 5.0 g/dL LAB CHEMISTRY METHOD 03/04/2024 1:03 PM [facility] Total Bilirubin 2.8(H) 0.0 - 1.4 mg/dL LAB CHEMISTRY METHOD 03/04/2024 1:03 PM [facility] Blood Venous blood specimen / Unknown Venipuncture / Unknown 03/04/2024 9:21 AM EST 03/04/2024 11:40 AM EST us Gerry Barksdale MD LAB BLOOD ORDERABLES Final Re sult [facility] [address] [place] [address], * (ABNORMAL) Complete blood count (03/04/2024 9:21 AM EST) WBC 4.5(L) 4.8 - 10.8 K/mcL LAB HEMETOLOGY METHOD 03/04/2024 11:58 AM [facility] RBC 3.90(L) 4.50 - 5.50 M/mcL LAB HEMETOLOGY METHOD 03/04/2024 11:58 AM [facility] Hemoglobin 13.6 13.5 - 17.5 g/dL LAB HEMETOLOGY METHOD 03/04/2024 11:58 AM [facility] Hematocrit 40.7(L) 42.0 - 54.0 % LAB HEMETOLOGY METHOD 03/04/2024 11:58 AM [facility] MCV 104.4(H) 79.0 - 98.0 FL LAB HEMETOLOGY METHOD 03/04/2024 11:58 AM [facility] MCH 34.9(H) 27.0 - 32.0 pcg LAB HEMETOLOGY METHOD 03/04/2024 11:58 AM EST [facility] MCHC 33.4 32.0 - 37.0 g/dL LAB HEMETOLOGY METHOD 03/04/2024 11:58 AM [facility] RDW 14.3 11.0 - 15.0 % LAB HEMETOLOGY METHOD 03/04/2024 11:58 AM [facility] Platelets 101(L) 130 - 400 K/mcL LAB HEMETOLOGY METHOD 03/04/2024 11:58 AM [facility] MPV 11.0 7.0 - 11.0 FL LAB HEMETOLOGY METHOD 03/04/2024 11:58 AM [facility] NRBC 0.0 <1.0 % LAB HEMETOLOGY METHOD 03/04/2024 11:58 AM [facility] NRBC Absolute 0.00 <0.10 K/mcL LAB HEMETOLOGY METHOD 03/04/2024 11:58 AM [facility] Blood Venous blood specimen / Unknown Venipuncture / Unknown 03/04/2024 9:21 AM EST 03/04/2024 11:40 AM EST us Gerry Barksdale MD LAB BLOOD ORDERABLES Final Re sult [facility] [address] [place] [address], documented in this encounter Visit Diagnoses Diagnosis Vitamin D deficiency, unspecified Type 2 diabetes mellitus without complications (CMS/HCC) Essential (primary) hypertension Unspecified essential hypertension documented in this encounter Care Teams Transitions Manager Rn Relationship Specialty Start Date End Date Dalia Harmon PA [address] [place] [address] Drive, [address] [place] [address] PCP - General 05/10/24 documented as of this encounter
--- OUTSIDE RECORDS SUMMARY | 2024-06-23 12:23 | XMS_ITS | Continuity of Care Document ---
Author Organization [email or web address] [facility] [place] [address] Address [address] [place] [phone] Care Team Providers Care Health Education Specialist Name Role Phone HIM CCA OTHER [facility] Primary Care Provider Assessment Encounter Date Assessment Date Assessment LastModified by Organization Details LastModified Time 06/11/2024 06/11/2024 As noted, we were called to see [...] in the field was performed by my race car mechanic colleague, as noted above, I provided real-time [...] needs coags and platelets checked Disposition: To [facility] ED via 911. Patient is agreeable to [...] Name and Address Organization Details Recorded Time 78732 semagluti de medicatio n Not available Not available Not available 03/18/2024 RxNorm Not Available [email or web address] 4 18:27:38 98714 nystatin medicatio n Not available Not available Not available 06/10/2024 7597 RxNorm Not Available [facility] - [facility] 5 20:32:41 11740 codeine medicatio n Not available Not available Not available 06/10/2024 2670 RxNorm Not Available [facility] 5 20:32:41 Medications Name Sig [...] t Available Vitals Date Recorded Body temperature Body height Oxygen saturation Oxygen saturation in Arterial blood by Pulse oximetry Heart rate Body weight Respiratory rate Systolic blood pressure Diastolic blood pressure Provider Name and Address Organization Details Last Updated DateTime 5 98.9 [degF] 165.1 cm 97 % 97 % 99 /min 858993. 584 g 20 /min 150 mm[Hg] 90 mm[Hg] Not Available [facility] - production 5 20:56:17 Social History None recorded. Functional Status None recorded. Mental Status None recorded. Family History Nothing Reported. Medical History No medical history recorded. Past Encounters Encounter ID Performer Location Encounter Start Date Encounter Closed Date Diagnosis/Indication Diagnosis SNOMED-CT Code Diagnosis ICD10 Code Diagnosis Note [id number] Yasmeen Redmond MD Main - [facility] [address] [place] [phone] 06/10/2024 20:56:07 06/10/2024 21:35:04 Indwelling urethral urinary catheter in situ 781954144 Z96.0 [id number] FRANSISCO POLANCO MD Main - [facility] [address] [place] [phone] 06/11/2024 20:56:11 06/12/2024 09:25:59 Jovi hematuria 738695096 R31.0 Health Concerns Section Related Observation LastModified by Organization Detai ls LastModified Time None Recorded Concern Status LastModified by Organization Details LastModified Time None Recorded Payers Encounter Date Sequence Insurance Name Policy Number Policy Pan Covered Member ID Pan Member ID Guarantor Name 06/11/2024 1 [facility] - DOS ON OR AFTER 2022 - DUAL ELIGIBLE - INTERMEDIATE OPTIONS AND ONE CARE (MEDICARE REPLACEMENT/ADV ANTAGE - HMO) Jonny Reed [id number] Jonny Reed Notes Date Note Type Note Provider Name and Address Organization Details Recorded Time 06/11/2024 text/html CRC Nurse Triage Notes (Elsie Sultana - RN): Reason For Request: Patient has cath problems, Urine and blood in the back, problems all morning with it. Chief Complaints: Urinary catheter/nephrost hilario tube problems PMH: Chronic Back Pain, Hypertension, Cirrhosis PMH Reviewed at 06/11/2024 - : Allergies Reviewed at 06/11/2024 - : Comments: Seen by Dunia yesterday for fole troubleshooting, catheter changed during [...] with worsening s/sx-NE FRANSISCO POLANCO MD [address] [facility],[address], [place], [id number], RADHA - ANNE FRY 06/11/2024 22:21:06
--- OUTSIDE RECORDS SUMMARY | 2024-06-23 12:23 | XMS_ITS | Encounter Summary ---
Author Organization [facility] Address [address] [place] [phone] Care Team Providers Care Materials Engineer Name Role Phone Dalia Harmon Primary Care Provider [phone] Encounter Details Date Type Department Care Team (Late st Contact Info) Description 03/05/2024 Lab Requisition [facility] - Main Lab 299 [facility] [place] [address] Gerry Barksdale MD 819 [facility] 1 [place] [address] Essential (primary) hypertension Social History Tobacco Use [...] 11:20 AM EST Office Visit Gastroenterology - [place] [address] [facility] [address] [place] [address] Han Sloan DO 175 [facility] 200 [place], [place] [phone] 07/06/2024 1:[address] [facility] Interventional Radiology [address] [place] [phone] 08/12/2024 10:30 AM EDT Ancillary Procedure [facility] - [address] [place] [phone] documented as of this encounter Procedures Procedure Name Priority Date/Time Associated Diagnosis Comments COMPLETE BLOOD COUNT Routine 03/08/2024 9:48 AM EST Essential (primary) hypertension BASIC METABOLIC PANEL Routine 03/08/2024 9:48 AM EST Essential (primary) hypertension documented in this encounter Results * (ABNORMAL) Basic metabolic panel (03/08/2024 9:48 AM EST) Sodium 138 133 - 145 mmol/L LAB CHEMISTRY METHOD 03/08/2024 1:23 PM [facility] Potassium 4.2 3.5 - 5.5 mmol/L LAB CHEMISTRY METHOD 03/08/2024 1:23 PM [facility] Chloride 102 96 - 110 mmol/L LAB CHEMISTRY METHOD 03/08/2024 1:23 PM [facility] CO2 26 21 - 32 mmol/L LAB CHEMISTRY METHOD 03/08/2024 1:23 PM [facility] Anion Gap 10 3 - 11 LAB CHEMISTRY METHOD 03/08/2024 1:23 PM [facility] Glucose 186(H) 70 - 100 mg/dL LAB CHEMISTRY METHOD 03/08/2024 1:23 PM [facility] BUN 14 5 - 25 mg/dL LAB CHEMISTRY METHOD 03/08/2024 1:23 PM [facility] Creatinine 0.76 0.70 - 1.30 mg/dL LAB CHEMISTRY METHOD 03/08/2024 1:23 PM [facility] eGFR 99 >=60 mL/min/1. 73m2 LAB CHEMISTRY METHOD 03/08/2024 1:23 PM EST [facility] Comment:Calculation based on the??Chronic Kidney Disease Epidemiology Collaboration (CKD-EPI) equation refit??without adjustment for race. BUN/Creatinine Ratio 18.4 LAB CHEMISTRY METHOD 03/08/2024 1:23 PM EST [facility] Calcium 8.7 8.5 - 10.5 mg/dL LAB CHEMISTRY METHOD 03/08/2024 1:23 PM [facility] Blood Venous blood specimen / Unknown Venipuncture / Unknown 03/08/2024 9:48 AM EST 03/08/2024 11:22 AM EST Gerry Barksdale MD LAB BLOOD ORDERABLES Final Re sult [facility] [address] [place] [address], * (ABNORMAL) Complete blood count (03/08/2024 9:48 AM EST) WBC 4.6(L) 4.8 - 10.8 K/mcL LAB HEMETOLOGY METHOD 03/08/2024 12:55 PM [facility] RBC 4.20(L) 4.50 - 5.50 M/mcL LAB HEMETOLOGY METHOD 03/08/2024 12:55 PM [facility] Hemoglobin 14.5 13.5 - 17.5 g/dL LAB HEMETOLOGY METHOD 03/08/2024 12:55 PM [facility] Hematocrit 44.1 42.0 - 54.0 % LAB HEMETOLOGY METHOD 03/08/2024 12:55 PM [facility] MCV 105.3(H) 79.0 - 98.0 FL LAB HEMETOLOGY METHOD 03/08/2024 12:55 PM [facility] MCH 34.6(H) 27.0 - 32.0 pcg LAB HEMETOLOGY METHOD 03/08/2024 12:55 PM EST [facility] MCHC 32.9 32.0 - 37.0 g/dL LAB HEMETOLOGY METHOD 03/08/2024 12:55 PM [facility] RDW 14.7 11.0 - 15.0 % LAB HEMETOLOGY METHOD 03/08/2024 12:55 PM EST [facility] Platelets 102(L) 130 - 400 K/mcL LAB HEMETOLOGY METHOD 03/08/2024 12:55 PM [facility] MPV 11.3(H) 7.0 - 11.0 FL LAB HEMETOLOGY METHOD 03/08/2024 12:55 PM [facility] NRBC 0.0 <1.0 % LAB HEMETOLOGY METHOD 03/08/2024 12:55 PM [facility] NRBC Absolute 0.00 <0.10 K/mcL LAB HEMETOLOGY METHOD 03/08/2024 12:55 PM [facility] Blood Venous blood specimen / Unknown Venipuncture / Unknown 03/08/2024 9:48 AM EST 03/08/2024 11:22 AM EST us Gerry Barksdale MD LAB BLOOD ORDERABLES Final Re sult [facility] [address] [place] [address], documented in this encounter Visit Diagnoses Diagnosis Essential (primary) hypertension Unspecified essential hypertension documented in this encounter Care Teams Materials Engineer Relationship Specialty Start Date End Date Dalia Harmon PA [address] [place] [address], [address] [place] [address] PCP - General 05/10/24 documented as of this encounter
== END 2024-06-23 12:07 | disposition home or self-care (01) ==
DX: M87.052 Idiopathic aseptic necrosis of left femur (principal); E66.01 Morbid (severe) obesity due to excess calories; Z68.42 Body mass index [BMI] 45.0-49.9, adult; I82.409 Acute embolism and thrombosis of unspecified deep veins of unspecified lower extremity; G89.4 Chronic pain syndrome; Z87.19 Personal history of other diseases of the digestive system; R31.9 Hematuria, unspecified; N39.0 Urinary tract infection, site not specified; I87.2 Venous insufficiency (chronic) (peripheral); B35.3 Tinea pedis

== ENCOUNTER → 2024-06-29 13:49 | Outpatient (BNV) | payer OTHER, SELFPAY | PROVIDERS: Visit Provider Internal Medicine | DX: I82.409 Acute embolism and thrombosis of unspecified deep veins of unspecified lower extremity (principal); R31.9 Hematuria, unspecified | CPT/HCPCS: 99204 ==

== ENCOUNTER 2024-06-29 14:46 | Outpatient (REF) | payer OTHER, SELFPAY ==
--- NOTE | ~2024-06-29 | US_ITS ---
EXAMINATION: US TRIPLEX LOWER EXTREMITY, BILATERAL CLINICAL INFORMATION: Edema, both lower extremities. COMPARISON: None available. TECHNIQUE: Color-flow triplex imaging with spectral analysis and compression Doppler were performed on the bilateral lower extremities. FINDINGS: Respiratory variation, normal compression and augmented flow are noted throughout the visualized common femoral vein, superficial femoral vein, profunda femoral vein, popliteal vein and midcalf peroneal and posterior tibial venous segments both lower extremities. There is no Bass's cyst. US/US venous duplex LE BI IMPRESSION: No acute deep venous thrombosis involving the bilateral lower extremities.. Negative DVT exam. Electronically signed by: Goldy Rizzo MD 06/30/2024 07:23 AM EDT
--- NOTE | 2024-06-29 16:15 | PM.HEMONCCN ---
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 Utilized?: No - German Speaking HPI - Consult Narrative Narrative: Jonny Reed is a 64 year old male [facility] Medical History: Medical History (Last Reviewed 06/29/24 @ 14:07 by Abiola Lira) Anxiety Arthritis Avascular necrosis Back pain Back pain Chronic pain syndrome COPD (chronic obstructive pulmonary disease) Depression Diverticulosis Fatty liver Hemochromatosis History of cirrhosis of liver Hx of esophageal varices Internal hemorrhoids Iron overload syndrome FDC prescription opiate use No natural teeth NICOLE on CPAP Portal hypertensive gastropathy Family History: Family History (Last Reviewed 06/23/24 @ 11:09 by Dalia Harmon PA-C) Maternal Grandfather Heart attack Brother Heart attack Surgical History: Surgical History (Last Reviewed 06/29/24 @ 14:01 by Abiola Lira) H/O discectomy Onset Date: ~1997 History of back surgery Onset Date: ~1997 History of surgery Hx of colonoscopy Hx of esophagogastroduodenoscopy [place] teeth extracted Social History: Social History (Last Updated 06/29/24 @ 14:02 by Abiola Lira) Living Situation History: Household Members: None Housing: Apartment Are you a primary customer care team coach to a significant other at home: No Do you presently have visiting nurse or other home services: Yes Do you presently have visiting nurse or other home services comment: 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, 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 Tobacco History: Patient Tobacco Use Status: Former Tobacco user Tobacco use type: Cigarette Substance Use History: Substance Use Type: Marijuana Occupation Assessmet: service: No Current occupational status: unemployed Sex/Gender Assessment: Gender identity: Male Home Medications and Allergies Home Medications ?Medication ?Instructions ?Recorded ?Confirmed ?Type cholecalciferol (vitamin D3) 50 50 mcg PO DAILY 11/18/23 06/29/24 History mcg (2,000 unit) capsule (Vitamin D3) aspirin 81 mg tablet,delayed 81 mg PO DAILY 01/28/24 06/29/24 History release furosemide 40 mg tablet 40 mg PO DAILY 06/23/24 06/29/24 History spironolactone 25 mg tablet 150 mg PO BID 06/23/24 06/29/24 History Allergies Allergy/AdvReac Type Severity Reaction Status Date / Time nystatin AdvReac Mild swelling Verified 06/23/24 10:48 atorvastatin AdvReac Diarrhea Verified 06/23/24 10:48 Assessment and Plan - Time Spent With Patient Time Spent with Patient (in minutes): 10
--- OUTSIDE RECORDS SUMMARY | 2024-06-29 18:08 | XMS_ITS | Encounter Summary ---
Author Organization [facility] Address [address] [place] [address] Care Team Providers Care Music Publisher Name Role Phone Dalia Harmon Primary Care Provider Encounter Details Date Type Department Care Team (Late st Contact Info) Description 06/04/2024 Lab Requisition [facility] - Main Lab [address] [place] [phone] Gerry Barksdale [address] [place] [address] [phone] [place] [phone] Sepsis, unspecified organism (CMS/HCC) Social History Tobacco [...] Department Care Team (Latest Contact Info) Description 07/06/2024 1:00 PM EDT Appointment [facility] Interventional Radiology [address] [place] [phone] 08/12/2024 10:30 AM EDT Ancillary Procedure [facility] - [address] [place] [phone] 08/26/2024 8:30 AM EDT Office Visit Gastroenterology - [place] 175 [address] [facility] [address] [place] [phone] Han Sloan DO [address] [facility] [address] [place] [address] documented as of this encounter Procedures Procedure Name Priority Date/Time Associated Diagnosis Comments COMPLETE BLOOD COUNT Routine 06/07/2024 10:48 AM EST Sepsis, unspecified organism (CMS/HCC) BASIC METABOLIC PANEL Routine 06/07/2024 10:48 AM EST Sepsis, unspecified organism (CMS/HCC) documented in this encounter Results * (ABNORMAL) Basic metabolic panel (06/07/2024 10:48 AM EST) Sodium 137 133 - 145 mmol/L LAB CHEMISTRY METHOD 06/07/2024 12:53 PM [facility] Potassium 3.6 3.5 - 5.5 mmol/L LAB CHEMISTRY METHOD 06/07/2024 12:53 PM [facility] Chloride 103 96 - 110 mmol/L LAB CHEMISTRY METHOD 06/07/2024 12:53 PM [facility] CO2 25 21 - 32 mmol/L LAB CHEMISTRY METHOD 06/07/2024 12:53 PM [facility] Anion Gap 9 3 - 11 LAB CHEMISTRY METHOD 06/07/2024 12:53 PM [facility] Glucose 142(H) 70 - 100 mg/dL LAB CHEMISTRY METHOD 06/07/2024 12:53 PM [facility] BUN 9 5 - 25 mg/dL LAB CHEMISTRY METHOD 06/07/2024 12:53 PM [facility] Creatinine 0.58(L) 0.70 - 1.30 mg/dL LAB CHEMISTRY METHOD 06/07/2024 12:53 PM EST [facility] eGFR 108 >=60 mL/min/1. 73m2 LAB CHEMISTRY METHOD 06/07/2024 12:53 PM [facility] Comment:Calculation based on the??Chronic Kidney Disease Epidemiology Collaboration (CKD-EPI) equation refit??without adjustment for race. BUN/Creatinine Ratio 15.5 LAB CHEMISTRY METHOD 06/07/2024 12:53 PM [facility] Calcium 8.0(L) 8.5 - 10.5 mg/dL LAB CHEMISTRY METHOD 06/07/2024 12:53 PM [facility] Blood Venous blood specimen / Unknown Venipuncture / Unknown 06/07/2024 10:48 AM EST 06/07/2024 12:01 PM EST Gerry Barksdale LAB BLOOD ORDERABLES Final Resul t [facility] [address] [place] [address], * (ABNORMAL) Complete blood count (06/07/2024 10:48 AM EST) WBC 4.4(L) 4.8 - 10.8 K/mcL LAB HEMETOLOGY METHOD 06/07/2024 1:06 PM [facility] RBC 3.40(L) 4.50 - 5.50 M/mcL LAB HEMETOLOGY METHOD 06/07/2024 1:06 PM [facility] Hemoglobin 12.0(L) 13.5 - 17.5 g/dL LAB HEMETOLOGY METHOD 06/07/2024 1:06 PM [facility] Hematocrit 36.4(L) 42.0 - 54.0 % LAB HEMETOLOGY METHOD 06/07/2024 1:06 PM [facility] MCV 105.8(H) 79.0 - 98.0 FL LAB HEMETOLOGY METHOD 06/07/2024 1:06 PM EST [facility] MCH 34.9(H) 27.0 - 32.0 pcg LAB HEMETOLOGY METHOD 06/07/2024 1:06 PM [facility] MCHC 33.0 32.0 - 37.0 g/dL LAB HEMETOLOGY METHOD 06/07/2024 1:06 PM [facility] RDW 18.0(H) 11.0 - 15.0 % LAB HEMETOLOGY METHOD 06/07/2024 1:06 PM [facility] Platelets 108(L) 130 - 400 K/mcL LAB HEMETOLOGY METHOD 06/07/2024 1:06 PM [facility] MPV 10.7 7.0 - 11.0 FL LAB HEMETOLOGY METHOD 06/07/2024 1:06 PM [facility] NRBC 0.0 <1.0 % LAB HEMETOLOGY METHOD 06/07/2024 1:06 PM [facility] NRBC Absolute 0.00 <0.10 K/mcL LAB HEMETOLOGY METHOD 06/07/2024 1:06 PM [facility] Blood Venous blood specimen / Unknown Venipuncture / Unknown 06/07/2024 10:48 AM EST 06/07/2024 12:01 PM EST Gerry Barksdale LAB BLOOD ORDERABLES Final Resul t [facility] [address] [place] [address], documented in this encounter Visit Diagnoses Diagnosis Sepsis, unspecified organism (CMS/HCC) documented in this encounter Care Teams Music Publisher Relationship Specialty Start Date End Date Dalia Harmon PA [address] [facility], [address] [place] [address] PCP - General 05/10/24 documented as of this encounter
--- OUTSIDE RECORDS SUMMARY | 2024-06-29 18:08 | XMS_ITS | Clinical Summary ---
Author Organization [facility] Address [address] [place] [address] Care Team Providers Care Vector Control Specialist Name Role Phone Dago Ferro MD Primary Care Provider [phone] Allergies No known active allergies Medications Medication [...] age to complete this topic Care Teams Vector Control Specialist Relationship Specialty Start Date End Date Dago Ferro MD PCP - General Internal Medicine 03/23/19
--- OUTSIDE RECORDS SUMMARY | 2024-06-29 18:08 | XMS_ITS | Encounter Summary ---
Author Organization [facility] Address [id number] [place] [phone] Care Team Providers Care Shipwright Helper Name Role Phone Dalia Harmon Primary Care Provider [phone] Reason for Visit * Reason Onset Date Comments provider call back 06/14/2024 Encounter Details Date Type Department Care Team (Late st Contact Info) Description 06/14/2024 Telephone Gastroenterology - [place] [address] [place] [address] Han Sloan DO [address] [place] [address] provider call back Social History Tobacco Use [...] Info) Description 07/06/2024 1:00 PM EDT Appointment [facility] Interventional Radiology [address] [place] [phone] 08/12/2024 10:30 AM EDT Ancillary Procedure [facility] [address] [place] [phone] 08/26/2024 8:30 AM EDT Office Visit Gastroenterology - [place] 175 [facility] [address] [place] [phone] Han Sloan DO 175 [facility] [address] [place] [address] documented as of this encounter Visit Diagnoses Not on filedocumented in this encounter Care Teams Shipwright Helper Relationship Specialty Start Date End Date Dalia Harmon PA [address] [place] [address], [address] [place] [address] PCP - General 05/10/24 documented as of this encounter
--- OUTSIDE RECORDS SUMMARY | 2024-06-29 18:08 | XMS_ITS | Encounter Summary ---
Author Organization [facility] Address [address] [place] [address] Care Team Providers Care Customer Service Specialist Name Role Phone Dalia Harmon Primary Care Provider [phone] Reason for Visit * Reason Comments Blood in Urine Encounter Details Date Type Department Care Team (Late st Contact Info) Description 06/11/2024 10:01 PM EST - 06/12/2024 12:[address] [facility] Emergency [address] [place] [phone] Barak Benjamin MD [address] [place] [address] Gross hematuria (Primary Dx); Tachycardia; Abnormal chest [...] be sent through Care Everywhere. * Hematuria (Romansh) documented in this encounter Medications at Time [...] (one) time each day. 45 each 05/25/2024 zolpidem (AMBIEN) 10 mg tablet Take 1 [...] Levaquin has been sent to the pharmacy spinner hydraulic aware, ED attending aware. Will attempt contact again [...] removed with Gio PARK and new [address]. Initial clot came out followed by 125ml of bloody urine that became progressively clearer, no more clots visualized. Will monitor output and color to continue assessing patency. Boom Correa RN 06/11/24 2310 * Boom Correa RN - 06/11/2024 10:02 [...] COLONOSCOPY N/A PROCEDURE: HISTORICAL COLONOSCOPY ESOPHAGOGASTRODUODENOSCOPY PROCEDURE: NC ESOPHAGOGASTRODUODENOSCOPY TRANSORAL DIAGNOSTIC OTHER SURGICAL HISTORY Right PROCEDURE: NC STAB PHLEBT VARICOSE VEINS 1 XTR > [...] REFLEX MICROSCOPIC AND CULTURE - Abnormal Specific [place] Urine 1.007 pH, Urine 6.0 Leukocytes, Urine [...] Procedure Abnormality Status --------- ------ CBC auto differential[[id number]] Abnormal Final result Please view results for these tests on the individual orders. URINALYSIS WITH REFLEX MICROSCOPIC AND CULTURE Narrative: The following orders were created for panel order Urinalysis with reflex microscopic and culture. Procedure Abnormality Status --------- ------ Urinalysis with reflex ...[[id number]] Abnormal Final result Pugh urine culture tube[[id number]] Final result Please view results for these [...] recommended in 3 months to assess stability. Porjr-nd-ucnlsyof size left pleural effusion and trace right [...] Urinalysis is still pending. Patient placed on tape transferrer, EKG, blood cultures and lactic to be [...] 0700 Signed out change of shift to [facility] pending CT abdomen pelvis and ultimate disposition. [...] Prescriptions None Physician Attestation GIORGI Duarte 06/11/24 1134 GIORGI Duarte 06/12/24 0327 GIORGI Duarte 06/12/24 0548 GIORGI Duarte 06/12/24 0701 Cosigned by Ricco Hawkins MD at 06/12/2024 10:23 AM EST documented in this encounter Plan of Treatment Upcoming Encounters Date Type Department Care Team (Latest Contact Info) Description 07/06/2024 1:[address] [facility] Interventional Radiology [address] [place] [phone] 08/12/2024 10:30 AM EDT Ancillary Procedure [facility] - [address] [place] [phone] 08/26/2024 8:30 AM EDT Office Visit Gastroenterology - [place] [address] [place] [phone] Han Sloan DO [address] [place] [address] documented as of this encounter Procedures Procedure [...] LAB CHEMISTRY METHOD 06/12/2024 7:31 AM EST [facility] Blood Venous blood specimen / Unknown Venipuncture / Unknown 06/12/2024 6:44 AM EST 06/12/2024 6:58 AM EST Narrative [facility] - 06/12/2024 7:31 AM EST High levels of biotin in samples may falsely decrease hsTroponin values. ??Use caution when interpreting hsTroponin results in patients taking biotin who exhibit renal impairment (eGFR <60) or in patients taking more than 20 mg/day of biotin. us Nayeli RAND LAB BLOOD ORDERABLES Final Resu lt [facility] [address] [place] [address], [place] [phone] * CT Abdomen Pelvis w Contrast (06/12/2024 6:28 AM EST) Anatomical Region Laterality Modality Body Computed Tomogra phy 06/12/2024 7:06 AM EST Impressions 06/12/2024 7:06 AM EST Impression: Cirrhotic liver with portal hypertension including woltfwww-ge-isuvi volume ascites, splenomegaly and varices. No apparent [...] Impression: Cirrhotic liver with portal hypertension including hyqzlxbx-bp-grbmx volume ascites, splenomegaly and varices. No apparent [...] recommended in 3 months to assess stability. Bkruf-tu-xmorukgi size left pleural effusion and trace right [...] contour and moderate volume of ascites. Splenomegaly. Pbjii-cu-breoxubs size left pleural effusion and trace right [...] contour and moderate volume of ascites. Splenomegaly. Elkwm-li-jjjrwdcf size left pleural effusion and trace right [...] recommended in 3 months to assess stability. Vfdwi-pu-jlhxgmii size left pleural effusion and trace right pleural effusion with mild subjacent atelectasis. Cardiomegaly. Mildly dilated main pulmonary artery indicating pulmonary arterial hypertension. Hepatic cirrhosis with ascites and splenomegaly. Please see CT abdomen/pelvis report for additional details. No evidence for pulmonary artery embolus. This document has been electronically signed by: Hernan Godwin MD on 06/12/2024 06:43:23 us [address]ayeli RAND IMG CT PROCEDURES Final Result * (ABNORMAL) Prothrombin time with INR (06/12/2024 5:19 AM EST) Pathologist [facility] Protime 22.0(H) 10.6 - 13.9 sec LAB COAGULATION METHOD 06/12/2024 5:38 AM EST [facility] INR 1.8 LAB COAGULATION METHOD 06/12/2024 5:38 AM EST [facility] Blood Venous blood specimen / Unknown Venipuncture / Unknown 06/12/2024 5:19 AM EST 06/12/2024 5:22 AM EST Nayeli RAND LAB BLOOD ORDERABLES Final Resu lt Performing Organization Address City/[facility]/ZIP Co de Phone Number [facility] [address] [place] [address], [place] [phone] * B-type natriuretic peptide (06/12/2024 5:19 AM EST) [facility] BNP 95 <=100 pcg/mL LAB CHEMISTRY METHOD 06/12/2024 6:10 AM EST [facility] Blood Venous blood specimen / Unknown Venipuncture / Unknown 06/12/2024 5:19 AM EST 06/12/2024 5:22 AM EST us Nayeli RAND LAB BLOOD ORDERABLES Final Resu lt [facility] [address] [place] [address], [place] [phone] * Troponin I high sensitivity (06/12/2024 5:19 AM EST) Pathologist [facility] High Sensitivity Troponin I 22 <=79 ng/L LAB CHEMISTRY METHOD 06/12/2024 5:56 AM EST [facility] Blood Venous blood specimen / Unknown Venipuncture / Unknown 06/12/2024 5:19 AM EST 06/12/2024 5:22 AM EST Narrative [facility] - 06/12/2024 5:56 AM EST High levels of biotin in samples may falsely decrease hsTroponin values. ??Use caution when interpreting hsTroponin results in patients taking biotin who exhibit renal impairment (eGFR <60) or in patients taking more than 20 mg/day of biotin. us Nayeli RAND LAB BLOOD ORDERABLES Final Resu lt Performing Organization Address City/[facility]/ZIP Co de Phone Number [facility] [address] [place] [address], [place] [phone] * ECG 12 lead (06/12/2024 3:57 AM EST) [facility] Ventricular Rate ECG 118 BPM GEMUSE Atrial Rate 119 BPM GEMUSE QRS Duration 124 ms GEMUSE Q-T Interval 348 ms GEMUSE QTc 487 ms GEMUSE R Clune -36 degrees GEMUSE T Clune 35 degrees GEMUSE ECG Interpretation Sinus tachycardia [...] ECG ORDERABLES Final Result Performing Organization Address City/[facility]/ZIP Co de Phone Number GEMUSE * (ABNORMAL) Blood culture pathogens molecular study (06/12/2024 3:44 AM EST) Pathologist [facility] Pseudomonas aeruginosa Detected (A) Not Detected LAB MICROBIOLOGY METHOD 06/13/2024 7:45 AM EST [facility] Blood Venous blood specimen / Unknown Venipuncture / Unknown 06/12/2024 3:44 AM EST 06/12/2024 3:51 AM EST Nayeli RAND LAB MICROBIOLOGY - GENERAL ORDE RABLES Final Result Performing Organization Address [facility]/ZIP Co de Phone Number [facility] [address] [place] [address], [place] [phone] * (ABNORMAL) Blood Culture, Peripheral Draw #2 (06/12/2024 3:44 AM EST) [facility] Culture, Blood Pseudomonas aeruginosa(AA) SAVANNAH 06/16/2024 8:10 AM EST [facility] Comment: The organism value for this result has been updated. These results have been appended to the previously preliminary verified report. This is an edited result. Previous organism was Gram negative bacilli on 06/14/2024 at 1009 EST. Gram Stain Result Aerobic and Anaerobic bottles Gram negative bacilli(AA) 06/16/2024 8:10 AM EST [facility] Comment:This is an appended report. These [...] Pseudomonas aeruginosa Piperacillin/Tazobactam DISK DI FFUSION Intermediate us Nayeli RAND LAB MICROBIOLOGY - GENERAL ORDE RABLES Final Result [facility] [address] [place] [address], [place] [phone] * (ABNORMAL) Lactate (06/12/2024 3:40 AM EST) Lactate 3.2(HH) 0.4 - 2.0 mmol/L LAB CHEMISTRY METHOD 06/12/2024 4:30 AM EST [facility] Blood Venous blood specimen / Unknown Venipuncture / Unknown 06/12/2024 3:40 AM EST 06/12/2024 3:51 AM EST us Nayeli RAND LAB BLOOD ORDERABLES Final Resu lt Performing Organization Address [facility]/ZIP Co de Phone Number [facility] [address] [place] [address], * (ABNORMAL) Blood Culture, Peripheral Draw #1 (06/12/2024 3:40 AM EST) [facility] Culture, Blood Pseudomonas aeruginosa(AA) SAVANNAH 06/16/2024 8:10 AM EST [facility] Comment: The organism value for this result has been updated. These results have been appended to the previously preliminary verified report. This is an edited result. Previous organism was Gram negative bacilli on 06/14/2024 at 1012 EST. Gram Stain Result Aerobic bottle Gram negative bacilli(AA) 06/16/2024 8:10 AM EST [facility] Comment:This is an appended report. These results have been appended to a previously preliminary verified report. Blood Venous blood specimen / Unknown Venipuncture / Unknown 06/12/2024 3:40 AM EST 06/12/2024 3:51 AM EST Narrative [facility] - 06/16/2024 8:10 AM EST For susceptibilities refer to culture on 06/12/24 at 0344. us Nayeli RAND LAB MICROBIOLOGY - GENERAL ORDE RABLES Final Result [facility] [address] [place] [address], [place] [phone] * (ABNORMAL) Culture urine (06/12/2024 1:15 AM EST) Culture, Urine >100,000 CFU/mL Pseudomonas aeruginosa(A) SAVANNAH 06/15/2024 9:00 AM EST [facility] Comment: This is an edited [...] Nayeli RAND LAB MICROBIOLOGY - GENERAL ORDE NINFA Final Result [facility] [address] [place] [address], [place] [phone] * Pugh urine culture tube (06/12/2024 1:15 AM EST) Extra Tube Hold for add-ons. 06/12/2024 4:01 AM EST [facility] Comment:Auto resulted. Urine Urine specimen obtained by clean catch procedure / Unknown Non-blood Collection / Unknown 06/12/2024 1:15 AM EST 06/12/2024 2:59 AM EST us Nayeil RAND LAB URINE ORDERABLES Final Resu lt [facility] [address] [place] [address], [place] [phone] * (ABNORMAL) Urinalysis with reflex microscopic and culture (06/12/2024 1:15 AM EST) Specific [place] Urine 1.007 1.003 - 1.030 LAB URINALYSIS - AUTOMATED METHOD 06/12/2024 3:41 AM [facility] pH, Urine 6.0 5.0 - 8.0 pH LAB URINALYSIS - AUTOMATED METHOD 06/12/2024 3:41 AM [facility] Leukocytes, Urine Small(A) Negative LAB URINALYSIS - AUTOMATED METHOD 06/12/2024 3:41 AM [facility] Nitrite, Urine Negative Negative LAB URINALYSIS - AUTOMATED METHOD 06/12/2024 3:41 AM [facility] Protein, Urine Negative <=Trace mg/dL LAB URINALYSIS - AUTOMATED METHOD 06/12/2024 3:41 AM [facility] Glucose, Urine Negative Negative mg/dL LAB URINALYSIS - AUTOMATED METHOD 06/12/2024 3:41 AM [facility] Ketones, Urine Negative Negative mg/dL LAB URINALYSIS - AUTOMATED METHOD 06/12/2024 3:41 AM [facility] Urobilinogen, Urine 0.2 0.2 - 1.0 mg/dL LAB URINALYSIS - AUTOMATED METHOD 06/12/2024 3:41 AM [facility] Bilirubin, Urine Negative Negative LAB URINALYSIS - AUTOMATED METHOD 06/12/2024 3:41 AM [facility] Blood, Urine Large(A) Negative LAB URINALYSIS - AUTOMATED METHOD 06/12/2024 3:41 AM [facility] RBC, Urine 156.5(H) 0 - 4 /HPF LAB URINALYSIS - AUTOMATED METHOD 06/12/2024 3:41 AM [facility] WBC, Urine 16.6(H) 0 - 4 /HPF LAB URINALYSIS - AUTOMATED METHOD 06/12/2024 3:41 AM [facility] Squamous Epithelial, Urine 9 0 - 60 /LPF LAB URINALYSIS - AUTOMATED METHOD 06/12/2024 3:41 AM [facility] Bacteria, Urine Negative Negative /HPF LAB URINALYSIS - AUTOMATED METHOD 06/12/2024 3:41 AM [facility] Hyaline Casts, Urine 0.8 0 - 3 /LPF LAB URINALYSIS - AUTOMATED METHOD 06/12/2024 3:41 AM [facility] Urine Urine specimen obtained by clean catch procedure / Unknown Non-blood Collection / Unknown 06/12/2024 1:15 AM EST 06/12/2024 2:59 AM EST us Nayeli RAND LAB URINE ORDERABLES Final Resu lt [facility] [address] [place] [address], * (ABNORMAL) CBC auto differential (06/11/2024 11:14 PM EST) WBC 5.0 4.8 - 10.8 K/mcL LAB HEMETOLOGY METHOD 06/11/2024 11:55 PM [facility] RBC 3.60(L) 4.50 - 5.50 M/mcL LAB HEMETOLOGY METHOD 06/11/2024 11:55 PM [facility] Hemoglobin 12.5(L) 13.5 - 17.5 g/dL LAB HEMETOLOGY METHOD 06/11/2024 11:55 PM [facility] Hematocrit 38.0(L) 42.0 - 54.0 % LAB HEMETOLOGY METHOD 06/11/2024 11:55 PM [facility] MCV 107.0(H) 79.0 - 98.0 FL LAB HEMETOLOGY METHOD 06/11/2024 11:55 PM [facility] MCH 35.2(H) 27.0 - 32.0 pcg LAB HEMETOLOGY METHOD 06/11/2024 11:55 PM [facility] MCHC 32.9 32.0 - 37.0 g/dL LAB HEMETOLOGY METHOD 06/11/2024 11:55 PM [facility] RDW 17.5(H) 11.0 - 15.0 % LAB HEMETOLOGY METHOD 06/11/2024 11:55 PM [facility] Platelets 85(L) 130 - 400 K/mcL LAB HEMETOLOGY METHOD 06/11/2024 11:55 PM [facility] Comment:reviewed by slide MPV 10.4 7.0 - 11.0 FL LAB HEMETOLOGY METHOD 06/11/2024 11:55 PM [facility] NRBC 0.0 <1.0 % LAB HEMETOLOGY METHOD 06/11/2024 11:55 PM [facility] NRBC Absolute 0.00 <0.10 K/mcL LAB HEMETOLOGY METHOD 06/11/2024 11:55 PM [facility] Neutrophils Relative 93.8 % LAB HEMETOLOGY METHOD 06/11/2024 11:55 PM [facility] Lymphocytes Relative 4.4 % LAB HEMETOLOGY METHOD 06/11/2024 11:55 PM [facility] Monocytes Relative 1.4 % LAB HEMETOLOGY METHOD 06/11/2024 11:55 PM [facility] Eosinophils Relative 0.0 % LAB HEMETOLOGY METHOD 06/11/2024 11:55 PM EST [facility] Basophils Relative 0.2 % LAB HEMETOLOGY METHOD 06/11/2024 11:55 PM EST [facility] Immature Granulocytes Relative 0.2 % LAB HEMETOLOGY METHOD 06/11/2024 11:55 PM [facility] Neutrophils Absolute 4.65 1.50 - 7.00 K/mcL LAB HEMETOLOGY METHOD 06/11/2024 11:55 PM EST [facility] Lymphocytes Absolute 0.22(L) 1.00 - 5.00 K/mcL LAB HEMETOLOGY METHOD 06/11/2024 11:55 PM EST [facility] Monocytes Absolute 0.07(L) 0.20 - 1.00 K/mcL LAB HEMETOLOGY METHOD 06/11/2024 11:55 PM [facility] Eosinophils Absolute 0.00 0.00 - 0.50 K/mcL LAB HEMETOLOGY METHOD 06/11/2024 11:55 PM EST [facility] Basophils Absolute 0.01 0.00 - 0.20 K/mcL LAB HEMETOLOGY METHOD 06/11/2024 11:55 PM EST [facility] Immature Granulocytes Absolute 0.01 0.00 - 0.03 K/mcL LAB HEMETOLOGY METHOD 06/11/2024 11:55 PM [facility] Blood Venous blood specimen / Unknown Venipuncture / Unknown 06/11/2024 11:14 PM EST 06/11/2024 11:24 PM EST us Emily Singh DO LAB BLOOD ORDERABLES Berenice l Result [facility] [address] [place] [address], [place] [phone] * (ABNORMAL) Basic metabolic panel (06/11/2024 11:14 PM EST) Sodium 138 133 - 145 mmol/L LAB CHEMISTRY METHOD 06/12/2024 12:11 AM [facility] Potassium 4.4 3.5 - 5.5 mmol/L LAB CHEMISTRY METHOD 06/12/2024 12:11 AM [facility] Chloride 102 96 - 110 mmol/L LAB CHEMISTRY METHOD 06/12/2024 12:11 AM [facility] CO2 26 21 - 32 mmol/L LAB CHEMISTRY METHOD 06/12/2024 12:11 AM [facility] Anion Gap 10 3 - 11 LAB CHEMISTRY METHOD 06/12/2024 12:11 AM [facility] Glucose 139(H) 70 - 100 mg/dL LAB CHEMISTRY METHOD 06/12/2024 12:11 AM [facility] BUN 12 5 - 25 mg/dL LAB CHEMISTRY METHOD 06/12/2024 12:11 AM [facility] Creatinine 0.80 0.70 - 1.30 mg/dL LAB CHEMISTRY METHOD 06/12/2024 12:11 AM [facility] eGFR 98 >=60 mL/min/1. 73m2 LAB CHEMISTRY METHOD 06/12/2024 12:11 AM [facility] Comment:Calculation based on the??Chronic Kidney Disease Epidemiology Collaboration (CKD-EPI) equation refit??without adjustment for race. BUN/Creatinine Ratio 15.0 LAB CHEMISTRY METHOD 06/12/2024 12:11 AM [facility] Calcium 8.7 8.5 - 10.5 mg/dL LAB CHEMISTRY METHOD 06/12/2024 12:11 AM [facility] Blood Venous blood specimen / Unknown Venipuncture / Unknown 06/11/2024 11:14 PM EST 06/11/2024 11:24 PM EST us Emily Singh DO LAB BLOOD ORDERABLES Berenice l Result [facility] [address] [place] [address], documented in this encounter Visit Diagnoses Diagnosis [...] % mucosal jelly (COMPLETED) urethral, Once, On Fri06/11/24 at 2241, For 1 dose 2246 (Given - Provider: Marcellus Orellana RN) oxyCODONE (ROXICODONE) immediate release tablet 10 mg (COMPLETED) 10 mg, oral, Once, On 06/12/24 at 0410, For 1 dose 0421 (Given - Provid er: Deepak Katz, RN) sodium chloride 0.9 % flush 10 mL (COMPLETED) 10 mL, intravenous, Once, On 06/12/24 at 0609, For 1 dose 0614 (Given - Provid er: Elijah Castillo) sodium chloride 0.9 % irrigation solution 3,000 mL (COMPLETED) 3,000 mL, irrigation, Once, On 06/11/24 at 2332, For 1 dose 0029 (Given - Provid er: Deepak Katz, VIVIAN) documented in this encounter Care Teams Customer Service Specialist Relationship Specialty Start Date End Date Dalia Harmon PA [address] [place] [address], [address] [place] [address] PCP - General 05/10/24 documented as of this encounter
--- OUTSIDE RECORDS SUMMARY | 2024-06-29 18:08 | XMS_ITS | Clinical Summary ---
Author Organization [facility] Address [address] [place] [phone] Phone Care Team Providers Care Classifications Officer Cc/Cm Name Role Phone Dalia Harmon Primary Care Provider [phone] Allergies Active Allergy Reactions Criticality Noted Date Comments Codeine 12/25/2023 Other Reaction(s): Unknown body region Nystatin 04/07/2024 Cream and Powder Semaglutide Unknown 05/19/2024 Medications naloxone (NARCAN) 4 mg/0.1 mL nasal spray Administer 1 each (4 mg total) into affected nostril(s). 02/04/20 23 Active cholecalciferol (VITAMIN D-3) 50 mcg (2,000 unit) tablet 1 tablet (2,000 Units total). 11/19/19 12 Active albuterol 2.5 mg/0.5 mL solution for nebulization nebulizer solution Take 0.5 mL (2.5 mg total) by nebulization every 6 (six) hours if needed for shortness of breath. 02/18/20 24 Active zolpidem (AMBIEN) 10 mg tablet Take 1 tablet (10 mg total) by mouth at bedtime as needed. for insomnia Active oxyCODONE (OXY-IR) 5 mg immediate release capsule Take 2 capsules (10 mg total) by mouth every 4 (four) hours if needed for severe pain. Max Daily Amount: 60 mg 15 capsule 03/02/20 24 Active rosuvastatin (CRESTOR) 5 mg tablet Take 1 tablet (5 mg total) by mouth 1 (one) time each day. 03/25/20 24 Active aspirin 81 mg EC tablet Take 1 tablet (81 mg total) by mouth 1 (one) time each day. Active spironolactone (ALDACTONE) 100 mg tablet Take 1.5 tablets (150 mg total) by mouth 1 (one) time each day. 45 each 05/25/19 25 Active furosemide (LASIX) 20 mg tablet Take 2 tablets in the morning at 8 AM and 1 tablet in afternoon at 3 PM 90 each 05/25/19 25 Active Additional Information Patient taking differently: 20 mg oral Daily, Take 1 tablet in afternoon at 3 PM, Reported on 06/24/2024 tamsulosin (FLOMAX) 0.4 mg 24 hr capsule Take 1 capsule (0.4 mg total) by mouth 1 (one) time each day. Active oxyBUTYnin XL (DITROPAN-XL) 5 mg 24 hr tablet Take 1 tablet (5 mg total) by mouth 1 (one) time each day. 06/03/19 25 Active apixaban (ELIQUIS) 5 mg tablet Take 1 tablet (5 mg total) by mouth 2 (two) times a day. Active oxyCODONE (ROXICODONE) 10 mg immediate release tablet Take 1 tablet (10 mg total) by mouth every 4 (four) hours if needed for severe pain. Active amoxicillin-clav ulanate (AUGMENTIN) 875-125 mg per tablet Take 1 tablet by mouth 2 (two) times a day for 8 days. 05/25/19 25 025 doxycycline (VIBRAMYCIN) 100 mg capsule Take 1 capsule (100 mg total) by mouth 2 (two) times a day for 8 days. Take with at least 8 ounces (large glass) of water, do not lie down for 30 minutes after 05/25/19 25 025 apixaban (ELIQUIS) starter pack Take 2 tablets (10 mg total) by mouth 2 (two) times a day for 7 days. Then take 1 tablet (5 mg total) by mouth 2 (two) times a day. 74 tablet 05/25/19 25 025 Discontinu ed(Stop Taking at Discharge) doxycycline (MONODOX) 100 mg [...] calcium, iron, magnesium, selenium, zinc). 20 capsule 06/12/19 25 025 Discontinu ed(Stop Taking at Discharge) levoFLOXacin (LEVAQUIN) 250 mg tablet Take 3 tablets (750 mg total) by mouth 1 (one) time each day for 7 days. 21 tablet 06/13/19 25 025 Discontinu ed(Stop Taking at Discharge) furosemide (LASIX) 40 mg tablet Take 1 tablet (40 mg total) by mouth 1 (one) time each day. 025 Discontinu ed(Stop Taking at Discharge) ciprofloxacin (CIPRO) 500 mg tablet Take 1.5 tablets (750 mg total) by mouth 2 (two) times a day for 10 days. 30 each 06/16/19 Active Problems Problem Noted Date Diagnosed Date Pseudomonal bacteremia 06/13/2024 Severe sepsis 05/19/2024 Candidal intertrigo 03/01/2024 Anasarca 02/26/2024 Lymphedema 08/01/2022 Thrombocytopenia 08/01/2022 Overview (12/25/2023): Related to iron overload syndrome per prior records COPD (chronic obstructive pulmonary disease) Avascular necrosis of bone of hip, left 06/26/19 23 Overview (12/25/2023): Was [facility] by [facility] who recommended weight loss prior to elective hip arthroplasty of left hip Was seen by [facility] who concurred with this Insomnia 04/13/2018 Chronic allergic conjunctivitis 04/13/2018 Anxiety 04/13/2018 Esophageal varices 12/03/2017 Hemochromatosis 12/03/2017 Overview (12/25/2023): 2 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 Follows with GI. Liver cirrhosis secondary to CASTANEDA (nonalcoholic steatohepatitis) 12/03/2017 Erosive gastritis 10/13/2017 Obstructive sleep apnea 05/21/2016 Overview (12/25/2023): On CPAP Hypertension 12/14/2014 Hyperlipidemia 12/12/2014 Diabetes mellitus type 2 with neurological manif estations 12/12/2014 Depression with anxiety 12/12/2014 Benign colonic polyp 12/12/2014 Vitamin D deficiency 07/27/2012 Internal hemorrhoids 07/27/2010 Diverticulosis 05/29/2010 Encounters Date Type Department Care Team Description 06/29/2024 Telephone Gastroenterology [facility] 175 [facility] [address] [phone] Han Sloan DO Appointment (Upcoming Echo) 06/24/2024 11:20 AM EST Office Visit Gastroenterology [facility] [address] [phone] Han Sloan DO Cirrhosis of liver with ascites, unspecified hepatic cirrhosis type (CMS/HCC) (Primary Dx); Other ascites; Deep vein thrombosis of portal vein 06/18/2024 Lab Requisition [facility] [address] [facility] [place] [phone] Gerry Barksdale Sepsis, unspecified organism (CMS/HCC) 06/14/2024 [facility] 175 [facility] [address] [phone] Han Sloan DO provider call back 06/13/2024 12:02 PM EST - 06/16/2024 2:30 PM EST Hospital Encounter [facility] Medical Surgical Unit [address] [place] [phone] Barak Benjamin MD Flores, Carlos M, MD Kela, Kashyap Devendrabhai, MD Mohani, Priya, MD Bacteremia (Primary Dx); Cuello catheter in place; Urinary tract infection associated with indwelling urethral catheter, initial encounter (CMS/HCC); Hx of ascites; Anasarca Discharge Disposition: Home-Health Care [facility] 06/11/2024 10:01 PM EST - 06/12/2024 12:27 PM EST Emergency [facility] Emergency [address] [place] [phone] Barak Benjamin MD Gross hematuria (Primary Dx); Tachycardia; Abnormal chest CT Discharge Disposition: Home or Self Care 06/04/[address] [facility] Lab [address] [place] [phone] Gerry Barksdale Sepsis, unspecified organism ([facility]/HCC) 06/03/2024 Telephone Gastroenterology [facility] 175 [facility] 175 [facility] [address] [place] [phone] Han Sloan DO TESTING 05/28/[address] [facility] Lab [address] [place] [phone] Gerry Barksdale Sepsis, unspecified organism ([facility]/HCC) 05/26/[address] [facility] Lab [address] [place] [phone] Gerry Barksdale Weakness; Urinary tract infection, site not specified 05/25/2024 Telephone Gastroenterology [facility] 175 [facility] [address] [phone] Han Sloan DO 05/24/2024 [facility] [address] [phone] Han Sloan DO provider call back 05/19/2024 3:40 PM EST - 05/25/2024 4:38 PM EST Hospital Encounter [facility] Medical Surgical Unit [address] [place] [phone] Emily Singh DO Bukalo, Nermina, MD Nasser, Nada S, MD Kela, Kashyap Devendrabhai, MD Bilateral leg edema (Primary Dx); Urinary tract infection without hematuria, site unspecified; Hepatic cirrhosis, unspecified hepatic cirrhosis type, unspecified whether ascites present (CMS/HCC); Cellulitis of left leg; Severe sepsis (CMS/HCC) Discharge Disposition: Shelter Facility 05/12/2024 9:15 AM EST - 05/12/2024 11:59 PM EST Hospital Encounter [facility] CT Scan [address] [place] [phone] Decompensated cirrhosis (CMS/HCC); 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); Urinary retention Discharge Disposition: Home or Self Care 05/11/2024 10:27 AM EST - 05/11/2024 11:59 PM EST Hospital Encounter [facility] Ultrasound [address] [place] [phone] 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) Discharge Disposition: Home or Self Care 05/10/2024 Telephone [facility] - [facility] [address] [place] [phone] Em Dixon DO Faxed Order (Silvia FULTON) 05/05/2024 Telephone Gastroenterology [facility] [address] [facility] [address] [place] [phone] Han Sloan DO 04/20/2024 Telephone Gastroenterology [facility] [address] [facility] [address] [place] [phone] Han Sloan DO provider call back 04/13/2024 [facility] [address] [facility] [address] [place] [phone] Claudia Diez IA 04/09/2024 [facility] [address] [facility] [address] [phone] Han Sloan DO provider call back 04/07/2024 11:50 AM EST Lab Draw Station - [address] [facility] [address] [facility] [address] [place] [address] Decompensated cirrhosis (CMS/HCC); 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); Urinary retention; Anasarca; Liver cirrhosis secondary to CASTANEDA (nonalcoholic steatohepatitis) (CMS/HCC) 04/07/2024 11:00 AM EST Office Visit Gastroenterology [facility] [address] [facility] [address] [place] [phone] Han Sloan DO Decompensated cirrhosis (CMS/HCC) (Primary Dx); 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); Urinary retention 04/05/2024 Billing Patient Not Present Internal Medicine - [address] [phone] Em Dixon DO Hereditary hemochromatosis (CMS/HCC) (Primary [...] not elsewhere classified 04/05/2024 Telephone Internal Medicine [address] [phone] Em Dixon DO Faxed Order ([facility] (Discharge Summary)) 04/05/2024 Telephone Internal Medicine [address] [phone] Em Dixon DO Faxed Order ([facility]) 04/02/2024 Telephone Internal Medicine [address] [phone] Em Dixon DO Faxed Order ([facility] (Missed Visit)) 04/01/2024 Telephone Internal Medicine [address] [phone] Em Dixon DO Faxed Order ( [facility] ) from Last 3 Months Surgical History Surgery Date Site/Laterality Comments BACK SURGERY PROCEDURE: HISTORICAL BACK SURGERY; COMMENT: spinal diskectomy, osteophytectomy x4 ESOPHAGOGASTRODUODENOSCOPY PROCEDURE: [place] ESOPHAGOGASTRODUODENOSCOPY TRANSORAL DIAGNOSTIC COLONOSCOPY N/A PROCEDURE: HISTORICAL COLONOSCOPY OTHER SURGICAL HISTORY Right PROCEDURE: [place] STAB PHLEBT VARICOSE VEINS 1 XTR > [...] Brother x2 Other: other Father cancer from [facility] estos Heart attack Grandparent maternal Obesity Half-Brother [...] Sign Reading Time Taken Comments Blood Pressure 122/70 06/24/2024 8:24 AM EST Pulse 95 06/24/2024 8:24 AM EST Temperature 36.5 ??C (97.7 ??F) 06/16/2024 7:22 AM ES T Respiratory Rate 18 06/16/2024 7:22 AM EST Oxygen Saturation 96% 06/24/2024 8:24 AM EST Inhaled Oxygen Concentration - - Weight 147 kg (323 lb) 06/13/2024 12:31 PM EST Height 165.1 cm (5' 5 ) 06/13/2024 12:31 PM EST Body Mass Index 53.75 06/13/2024 12:31 PM EST Plan of Treatment Upcoming Encounters Date Type Department Care Team (Latest Contact Info) Description 07/06/2024 1:00 PM EDT Appointment [facility] Interventional Radiology [address] [place] [phone] 08/12/2024 10:30 AM EDT Ancillary Procedure [facility] [address] [place] [phone] 08/26/2024 8:30 AM EDT Office Visit Gastroenterology - [place] 175 [facility] 175 [facility] [address] [place] [phone] Han Sloan DO 175 [facility] [address] [place] [address] Health Maintenance Due Date Last Done Comments [...] (06/15/2024 2:35 PM EST) Left Atrium Major Ismay 5.9 cm CV PACS LA Area Sys [...] of4 resultswithin the time period is included. Ventricular Rate ECG 85 BPM GEMUSE Atrial Rate 85 BPM GEMUSE P-R Interval 126 ms GEMUSE QRS Duration 130 ms GEMUSE Q-T Interval 408 ms GEMUSE QTc 485 ms GEMUSE P Wave Ismay 28 degrees GEMUSE R Ismay -36 degrees GEMUSE T Ismay 29 degrees GEMUSE ECG Interpretation Normal sinus rhythm Left axis deviation Right bundle branch block Abnormal ECG When compared with ECG of 12-JUN-2024 03:57, No significant change was found Confirmed by MD Felix, Pateros ([id number]) on 06/15/2024 5:37:07 PM GEMUSE 06/15/2024 12:5 3 PM EST 06/15/2024 5:37 PM EST Liang Reinoso MD ECG ORDERABLES Fin al Result GEMUSE * (ABNORMAL) Complete blood count (06/15/2024 6:38 AM EST) Only the most recent of7 resultswithin the time period is included. WBC 4.1(L) 4.8 - 10.8 K/mcL LAB HEMETOLOGY METHOD 06/15/2024 7:42 AM EST [facility] RBC 3.50(L) 4.50 - 5.50 M/mcL LAB HEMETOLOGY METHOD 06/15/2024 7:42 AM EST [facility] Hemoglobin 11.9(L) 13.5 - 17.5 g/dL LAB HEMETOLOGY METHOD 06/15/2024 7:42 AM [facility] Hematocrit 35.3(L) 42.0 - 54.0 % LAB HEMETOLOGY METHOD 06/15/2024 7:42 AM [facility] MCV 102.3(H) 79.0 - 98.0 FL LAB HEMETOLOGY METHOD 06/15/2024 7:42 AM [facility] MCH 34.5(H) 27.0 - 32.0 pcg LAB HEMETOLOGY METHOD 06/15/2024 7:42 AM [facility] MCHC 33.7 32.0 - 37.0 g/dL LAB HEMETOLOGY METHOD 06/15/2024 7:42 AM [facility] RDW 17.0(H) 11.0 - 15.0 % LAB HEMETOLOGY METHOD 06/15/2024 7:42 AM [facility] Platelets 81(L) 130 - 400 K/mcL LAB HEMETOLOGY METHOD 06/15/2024 7:42 AM [facility] Comment:previously verified by slide MPV 11.0 7.0 - 11.0 FL LAB HEMETOLOGY METHOD 06/15/2024 7:42 AM [facility] NRBC 0.0 <1.0 % LAB HEMETOLOGY METHOD 06/15/2024 7:42 AM [facility] NRBC Absolute 0.00 <0.10 K/mcL LAB HEMETOLOGY METHOD 06/15/2024 7:42 AM [facility] Blood Venous blood specimen / Unknown Venipuncture / Unknown 06/15/2024 6:38 AM EST 06/15/2024 7:06 AM EST Liang Reinoso MD LAB BLOOD ORDERABLE S Final Result Performing Organization Address City/[facility]/ZIP Co de Phone Number [facility] [address] [place] [address], * Phosphorus (06/15/2024 6:38 AM EST) Only the most recent of5 resultswithin the time period is included. Phosphorus 3.0 2.5 - 4.5 mg/dL LAB CHEMISTRY METHOD 06/15/2024 7:50 AM EST [facility] Blood Venous blood specimen / Unknown Venipuncture / Unknown 06/15/2024 6:38 AM EST 06/15/2024 7:06 AM EST us Liang Reinoso MD LAB BLOOD ORDERABLE S Final Result Performing Organization Address [facility] de Phone Number [facility] [address] [place] [address], * Magnesium (06/15/2024 6:38 AM EST) Only the most recent of7 resultswithin the time period is included. [facility] Magnesium 1.9 1.9 - 2.6 mg/dL LAB CHEMISTRY METHOD 06/15/2024 7:50 AM EST [facility] Blood Venous blood specimen / Unknown Venipuncture / Unknown 06/15/2024 6:38 AM EST 06/15/2024 7:06 AM EST us Liang Reinoso MD LAB BLOOD ORDERABLE S Final Result Performing Organization Address [facility] Co de Phone Number [facility] [address] [place] [address], [place] [phone] * (ABNORMAL) Basic metabolic panel (06/15/2024 6:38 AM EST) Only the most recent of12 resultswithin the time period is included. Sodium 134 133 - 145 mmol/L LAB CHEMISTRY METHOD 06/15/2024 7:50 AM [facility] Potassium 4.2 3.5 - 5.5 mmol/L LAB CHEMISTRY METHOD 06/15/2024 7:50 AM [facility] Chloride 100 96 - 110 mmol/L LAB CHEMISTRY METHOD 06/15/2024 7:50 AM [facility] CO2 30 21 - 32 mmol/L LAB CHEMISTRY METHOD 06/15/2024 7:50 AM [facility] Anion Gap 4 3 - 11 LAB CHEMISTRY METHOD 06/15/2024 7:50 AM [facility] Glucose 115(H) 70 - 100 mg/dL LAB CHEMISTRY METHOD 06/15/2024 7:50 AM [facility] BUN 11 5 - 25 mg/dL LAB CHEMISTRY METHOD 06/15/2024 7:50 AM [facility] Creatinine 0.48(L) 0.70 - 1.30 mg/dL LAB CHEMISTRY METHOD 06/15/2024 7:50 AM [facility] eGFR 114 >=60 mL/min/1. 73m2 LAB CHEMISTRY METHOD 06/15/2024 7:50 AM [facility] Comment:Calculation based on the??Chronic Kidney Disease Epidemiology Collaboration (CKD-EPI) equation refit??without adjustment for race. BUN/Creatinine Ratio 22.9 LAB CHEMISTRY METHOD 06/15/2024 7:50 AM [facility] Calcium 8.2(L) 8.5 - 10.5 mg/dL LAB CHEMISTRY METHOD 06/15/2024 7:50 AM [facility] Blood Venous blood specimen / Unknown Venipuncture / Unknown 06/15/2024 6:38 AM EST 06/15/2024 7:06 AM EST Liang Reinoso MD LAB BLOOD ORDERABLE S Final Result [facility] [address] [place] [address], [place] [phone] * Cell count with reflex differential, body fluid (06/14/2024 10:19 AM EST) Only the most recent of2 resultswithin the time period is included. Body Fluid Total Nucleated Cells 218 /mm3 LAB HEMETOLOGY METHOD 06/14/2024 11:38 AM EST [facility] Body Fluid RBC 1,000 /mm3 LAB HEMETOLOGY METHOD 06/14/2024 11:38 AM EST [facility] Body Fluid Color Yellow 06/14/2024 11:38 AM EST [facility] Body Fluid Clarity Clear 06/14/2024 11:38 AM EST [facility] Body Fluid Source Peritoneal 06/14/2024 11:38 AM [facility] Peritoneal Fluid Peritoneal cavity structure / Unknown Non-blood Collection / Unknown 06/14/2024 10:19 AM EST 06/14/2024 10:27 AM EST Narrative [facility] - 06/14/2024 11:38 AM EST No reference ranges have been established for body fluids. Clinical correlation recommended. Cristiana RAND LAB BODY FLUIDS AND [facility] ORDERABLES Final Result [facility] [address] [place] [address], [place] [phone] * Culture body fluid with gram stain (06/14/2024 10:19 AM EST) Fluid Culture No growth at 3 days LAB MICROBIOLOGY METHOD 06/17/2024 11:25 AM EST [facility] Gram Stain Result No polymorphonuclear leukocytes, No epithelial cells, and No organisms noted 06/17/2024 11:25 AM [facility] Peritoneal Fluid Peritoneal cavity structure / Unknown Non-blood Collection / Unknown 06/14/2024 10:19 AM EST 06/14/2024 10:26 AM EST Cristiana RAND LAB MICROBIOLOGY - GENE RAL ORDERABLES Final Result Performing Organization Address [facility]/ZIP Co de Phone Number [facility] [address] [place] [address], [place] [phone] * Differential body fluid (06/14/2024 10:19 AM EST) Only the most recent of2 resultswithin the time period is included. Fluid Neutrophils % 4 % 06/14/2024 11:38 AM EST [facility] Fluid Lymphocytes % 74 % 06/14/2024 11:38 AM EST [facility] Fluid Monocytes/Macrop hages 22 % 06/14/2024 11:38 AM EST [facility] Fluid Eosinophils % 0 % 06/14/2024 11:38 AM EST [facility] Fluid Basophils % 0 % 06/14/2024 11:38 AM EST [facility] Fluid Other Cells % 0 % 06/14/2024 11:38 AM EST [facility] Peritoneal Fluid Peritoneal cavity structure / Unknown Non-blood Collection / Unknown 06/14/2024 10:19 AM EST 06/14/2024 10:27 AM EST Narrative [facility] - 06/14/2024 11:38 AM EST No reference ranges have been established for body fluids. Clinical correlation recommended. Cristiana RAND LAB BODY FLUIDS AND STO OLS ORDERABLES Final Result Performing Organization Address City/[facility]/ZIP Co de Phone Number [facility] [address] [place] [address], [place] [phone] * Specific gravity, body fluid (06/14/2024 10:19 AM EST) Spec Grav, Fluid 1.014 06/14/2024 11:01 AM EST [facility] Peritoneal Fluid Non-blood Collection / Unknown 06/14/2024 10:19 AM EST 06/14/2024 10:26 AM EST [facility] - 06/14/2024 11:01 AM EST No reference ranges have been established for body fluids. Clinical correlation recommended. Cristiana RAND LAB BODY FLUIDS AND STO OLS ORDERABLES Final Result Performing Organization Address City/[facility]/ZIP Co de Phone Number [facility] [address] [place] [address], [place] [phone] * Protein, body fluid (06/14/2024 10:19 AM EST) Only the most recent of2 resultswithin the time period is included. Pathologist [facility] Protein, Fluid 1.4 See Comment g/dL LAB CHEMISTRY METHOD 06/14/2024 11:19 AM EST [facility] Peritoneal Fluid Non-blood Collection / Unknown 06/14/2024 10:19 AM EST 06/14/2024 10:26 AM EST [facility] - 06/14/2024 11:19 AM EST No reference ranges have been established for body fluids. Clinical correlation recommended. Cristiana RAND LAB BODY FLUIDS AND STO OLS ORDERABLES Final Result [facility] [address] [place] [address], [place] [phone] * Lactate dehydrogenase, body fluid (06/14/2024 10:19 AM EST) Pathologist [facility] LD, Fluid 78 See Comment unit/L LAB CHEMISTRY METHOD 06/14/2024 11:42 AM EST [facility] Peritoneal Fluid Peritoneal cavity structure / Unknown Non-blood Collection / Unknown 06/14/2024 10:19 AM EST 06/14/2024 10:27 AM EST [facility] - 06/14/2024 11:42 AM EST No reference ranges have been established for body fluids. Clinical correlation recommended. Cristiana RAND LAB BODY FLUIDS AND STO OLS ORDERABLES Final Result Performing Organization Address [facility]/ZIP Co de Phone Number [facility] [address] [place] [address], [place] [phone] * Glucose, body fluid (06/14/2024 10:19 AM EST) Glucose, Fluid 150 See Comment mg/dL LAB CHEMISTRY METHOD 06/14/2024 11:28 AM EST [facility] Ascites 06/14/2024 10:1 9 AM EST 06/14/2024 10:26 AM EST [facility] - 06/14/2024 11:28 AM EST No reference ranges have been established for body fluids. Clinical correlation recommended. Cristiana RAND LAB BODY FLUIDS AND STO OLS ORDERABLES Final Result Performing Organization Address [facility] de Phone Number [facility] [address] [place] [address], [place] [phone] * Amylase, body fluid (06/14/2024 10:19 AM EST) Amylase, Fluid 24 See Comment unit/L LAB CHEMISTRY METHOD 06/14/2024 11:19 AM EST [facility] Peritoneal Fluid Non-blood Collection / Unknown 06/14/2024 10:19 AM EST 06/14/2024 10:26 AM EST [facility] - 06/14/2024 11:19 AM EST No reference ranges have been established for body fluids. Clinical correlation recommended. Cristiana RAND LAB BODY FLUIDS AND STO OLS ORDERABLES Final Result Performing Organization Address [facility]/ZIP Co de Phone Number [facility] [address] [place] [address], [place] [phone] * Albumin, body fluid (06/14/2024 10:19 AM EST) Only the most recent of2 resultswithin the time period is included. Albumin, Fluid 0.6 See Comment g/dL LAB CHEMISTRY METHOD 06/14/2024 11:19 AM EST [facility] Peritoneal Fluid Non-blood Collection / Unknown 06/14/2024 10:19 AM EST 06/14/2024 10:26 AM EST Narrative [facility] - 06/14/2024 11:19 AM EST No reference ranges have been established for body fluids. Clinical correlation recommended. Cristiana RAND LAB BODY FLUIDS AND STO OLS ORDERABLES Final Result Performing Organization Address [facility] Co de Phone Number [facility] [address] [place] [address], [place] [phone] * Non-gynecologic cytology (06/14/2024 10:19 AM EST) Final Diagnosis A. Peritoneal fluid, paracentesis, (ThinPrep, cell block): Negative for malignant cells. 06/17/2024 4:30 PM [facility] Specimen A Adequacy Satisfactory for evaluation 06/17/2024 4:30 PM [facility] Gross Description A. Peritoneal Cavity, : Received 115 ml of yellow fluid; 1 ThinPrep, 1 Cell block Cell block in formalin @1500; total formalin fixation time 6 hours. 06/17/2024 4:30 PM [facility] Disclaimer Unless otherwise specified, all tissue is 10% NB formalin fixed and paraffin embedded. Technical cytopathology services provided by [facility], at [address] [place] [address] ([facility] # [id number]/Katya Lo MD, Pallet Rectifier.) 06/17/2024 4:30 PM EST [facility] Peritoneal Fluid Peritoneal cavity structure / Unknown Non-blood Collection / Unknown 06/14/2024 10:19 AM EST 06/14/2024 2:30 PM EST us Cristiana RAND LAB CYTOLOGY ORDERABLES Final Result [facility] [address] [place] [address], * [place] Paracentesis w Image Guidance (06/14/2024 [...] Signed Date: 06/15/2024 12:40 ET Workstation ID: [id number] Transcribed By: Self Edit Transcribed Date: 06/14/2024 11:29 ET Resident/PA/BOAT DOCK OPERATOR: Milady Chilel Narrative 06/15/2024 12:40 PM [...] Signed Date: 06/15/2024 12:40 ET Workstation ID: [id number] Transcribed By: Self Edit Transcribed Date: 06/14/2024 11:29 ET Resident/PA/BOAT DOCK OPERATOR: Milady Chilel us Cristiana RAND IMG US PROCEDURES Final Result * Lactate, with reflex (06/14/2024 5:26 AM EST) Only the most recent of3 resultswithin the time period is included. LACTIC ACID 1.6 0.4 - 2.0 mmol/L LAB CHEMISTRY METHOD 06/14/2024 6:03 AM EST [facility] Blood Venous blood specimen / Unknown Venipuncture / Unknown 06/14/2024 5:26 AM EST 06/14/2024 5:33 AM EST us Napoleon Neely MD LAB BLOOD ORDERABLES Final Re sult Performing Organization Address [facility]/ZIP Co de Phone Number [facility] [address] [place] [address], [place] [phone] * Culture blood (06/14/2024 5:22 AM EST) Only the most recent of6 resultswithin the time period is included. [facility] Culture, Blood No growth at 5 days 06/19/2024 6:01 AM EST [facility] Blood Venous blood specimen / Unknown Venipuncture / Unknown 06/14/2024 5:22 AM EST 06/14/2024 5:33 AM EST us Napoleon Neely MD LAB MICROBIOLOGY - GENERAL OR DERABLES Final Result Performing Organization Address [facility] de Phone Number [facility] [address] [place] [address], [place] [phone] * (ABNORMAL) CBC auto differential (06/14/2024 5:14 AM EST) Only the most recent of6 resultswithin the time period is included. WBC 4.5(L) 4.8 - 10.8 K/mcL LAB HEMETOLOGY METHOD 06/14/2024 6:00 AM EST [facility] RBC 3.30(L) 4.50 - 5.50 M/[facility] LAB HEMETOLOGY METHOD 06/14/2024 6:00 AM [facility] Hemoglobin 11.6(L) 13.5 - 17.5 g/dL LAB HEMETOLOGY METHOD 06/14/2024 6:00 AM [facility] Hematocrit 35.2(L) 42.0 - 54.0 % LAB HEMETOLOGY METHOD 06/14/2024 6:00 AM [facility] MCV 107.0(H) 79.0 - 98.0 FL LAB HEMETOLOGY METHOD 06/14/2024 6:00 AM [facility] MCH 35.3(H) 27.0 - 32.0 pcg LAB HEMETOLOGY METHOD 06/14/2024 6:00 AM [facility] MCHC 33.0 32.0 - 37.0 g/dL LAB HEMETOLOGY METHOD 06/14/2024 6:00 AM [facility] RDW 17.5(H) 11.0 - 15.0 % LAB HEMETOLOGY METHOD 06/14/2024 6:00 AM [facility] Platelets 77(L) 130 - 400 K/mcL LAB HEMETOLOGY METHOD 06/14/2024 6:00 AM [facility] Comment:previously verified by slide MPV 10.3 7.0 - 11.0 FL LAB HEMETOLOGY METHOD 06/14/2024 6:00 AM [facility] NRBC 0.0 <1.0 % LAB HEMETOLOGY METHOD 06/14/2024 6:00 AM [facility] NRBC Absolute 0.00 <0.10 K/mcL LAB HEMETOLOGY METHOD 06/14/2024 6:00 AM [facility] Neutrophils Relative 75.4 % LAB HEMETOLOGY METHOD 06/14/2024 6:00 AM [facility] Lymphocytes Relative 13.9 % LAB HEMETOLOGY METHOD 06/14/2024 6:00 AM [facility] Monocytes Relative 9.7 % LAB HEMETOLOGY METHOD 06/14/2024 6:00 AM [facility] Eosinophils Relative 0.4 % LAB HEMETOLOGY METHOD 06/14/2024 6:00 AM [facility] Basophils Relative 0.4 % LAB HEMETOLOGY METHOD 06/14/2024 6:00 AM [facility] Immature Granulocytes Relative 0.2 % LAB HEMETOLOGY METHOD 06/14/2024 6:00 AM [facility] Neutrophils Absolute 3.35 1.50 - 7.00 K/mcL LAB HEMETOLOGY METHOD 06/14/2024 6:00 AM [facility] Lymphocytes Absolute 0.62(L) 1.00 - 5.00 K/mcL LAB HEMETOLOGY METHOD 06/14/2024 6:00 AM [facility] Monocytes Absolute 0.43 0.20 - 1.00 K/mcL LAB HEMETOLOGY METHOD 06/14/2024 6:00 AM [facility] Eosinophils Absolute 0.02 0.00 - 0.50 K/mcL LAB HEMETOLOGY METHOD 06/14/2024 6:00 AM [facility] Basophils Absolute 0.02 0.00 - 0.20 K/mcL LAB HEMETOLOGY METHOD 06/14/2024 6:00 AM [facility] Immature Granulocytes Absolute 0.01 0.00 - 0.03 K/mcL LAB HEMETOLOGY METHOD 06/14/2024 6:00 AM [facility] Blood Venous blood specimen / Unknown Venipuncture / Unknown 06/14/2024 5:14 AM EST 06/14/2024 5:34 AM EST us Napoleon Neely MD LAB BLOOD ORDERABLES Final Re sult [facility] [address] [place] [address], * ECG-Annotated (06/14/2024) Only the most recent of3 resultswithin the time period is included. Provider Onbase ECG ORDERABLES Final Result * Prostate specific antigen screen (06/13/2024 12:37 PM EST) PSA 0.18 0.00 - 4.00 ng/mL LAB CHEMISTRY METHOD 06/13/2024 2:31 PM EST [facility] Blood Venous blood specimen / Unknown Venipuncture / Unknown 06/13/2024 12:37 PM EST 06/13/2024 12:55 PM EST Narrative [facility] - 06/13/2024 2:31 PM EST The Siemens Advia Proxsysaur Chemiluminescent Immunoassay is used. Results obtained with different assay methods or kits cannot be used interchangeably. Results cannot be interpreted as absolute evidence of the presence or absence of malignant disease. Napoleon Neely MD LAB BLOOD ORDERABLES Final Re sult Performing Organization Address City/[facility]/ZIP Co de Phone Number [facility] [address] [place] [address], * (ABNORMAL) C-reactive protein (06/13/2024 12:37 PM EST) Only the most recent of2 resultswithin the time period is included. Pathologist [facility] C-Reactive Protein 10.20(H) <=0.50 mg/dL LAB CHEMISTRY METHOD 06/13/2024 2:25 PM EST [facility] Blood Venous blood specimen / Unknown Venipuncture / Unknown 06/13/2024 12:37 PM EST 06/13/2024 12:55 PM EST Napoleon Neely MD LAB BLOOD ORDERABLES Final Re sult Performing Organization Address City/[facility]/ZIP Co de Phone Number [facility] [address] [place] [address], * (ABNORMAL) Hepatic function panel (06/13/2024 12:37 PM EST) [facility] Total Protein 5.9(L) 6.0 - 8.0 g/dL LAB CHEMISTRY METHOD 06/13/2024 2:25 PM EST [facility] Albumin 2.3(L) 3.2 - 5.0 g/dL LAB CHEMISTRY METHOD 06/13/2024 2:25 PM EST [facility] Total Bilirubin 2.6(H) 0.0 - 1.4 mg/dL LAB CHEMISTRY METHOD 06/13/2024 2:25 PM EST [facility] Bilirubin, Direct 1.4(H) 0.0 - 0.3 mg/dL LAB CHEMISTRY METHOD 06/13/2024 2:25 PM [facility] Bilirubin, Indirect 1.2(H) 0.0 - 1.1 mg/dL LAB CHEMISTRY METHOD 06/13/2024 2:25 PM [facility] ALT (SGPT) 20 10 - 60 unit/L LAB CHEMISTRY METHOD 06/13/2024 2:25 PM [facility] AST (SGOT) 32 10 - 42 unit/L LAB CHEMISTRY METHOD 06/13/2024 2:25 PM [facility] Alkaline Phosphatase 133(H) 42 - 121 unit/L LAB CHEMISTRY METHOD 06/13/2024 2:25 PM [facility] Blood Venous blood specimen / Unknown Venipuncture / Unknown 06/13/2024 12:37 PM EST 06/13/2024 12:55 PM EST us Napoleon Neely MD LAB BLOOD ORDERABLES Final Re sult [facility] [address] [place] [address], * Troponin I high sensitivity (06/12/2024 6:44 AM EST) Only the most recent of4 resultswithin the time period is included. [facility] High Sensitivity Troponin I 17 <=79 ng/L LAB CHEMISTRY METHOD 06/12/2024 7:31 AM EST [facility] Blood Venous blood specimen / Unknown Venipuncture / Unknown 06/12/2024 6:44 AM EST 06/12/2024 6:58 AM EST Narrative [facility] - 06/12/2024 7:31 AM EST High levels of biotin in samples may falsely decrease hsTroponin values. ??Use caution when interpreting hsTroponin results in patients taking biotin who exhibit renal impairment (eGFR <60) or in patients taking more than 20 mg/day of biotin. us Nayeli RAND LAB BLOOD ORDERABLES Final Resu lt [facility] [address] [place] [address], [place] [phone] * CT Abdomen Pelvis w Contrast (06/12/2024 6:28 AM EST) Only the most recent of2 resultswithin the time period is included. Anatomical Region Laterality Modality Body Computed Tomogra phy 06/12/2024 7:06 AM EST Impressions 06/12/2024 7:06 AM EST Impression: Cirrhotic liver with portal hypertension including pxgtbhmc-xf-qxzlp volume ascites, splenomegaly and varices. No apparent [...] Impression: Cirrhotic liver with portal hypertension including ftnsryhf-fi-xnuja volume ascites, splenomegaly and varices. No apparent [...] recommended in 3 months to assess stability. Hyiwf-jp-hweadoqv size left pleural effusion and trace right [...] contour and moderate volume of ascites. Splenomegaly. Krexy-zx-erbpactt size left pleural effusion and trace right [...] contour and moderate volume of ascites. Splenomegaly. Sempw-ah-hrymhrxu size left pleural effusion and trace right [...] recommended in 3 months to assess stability. Rhzzq-oi-kpjmwilt size left pleural effusion and trace right pleural effusion with mild subjacent atelectasis. Cardiomegaly. Mildly dilated main pulmonary artery indicating pulmonary arterial hypertension. Hepatic cirrhosis with ascites and splenomegaly. Please see CT abdomen/pelvis report for additional details. No evidence for pulmonary artery embolus. This document has been electronically signed by: Hernan Godwin MD on 06/12/2024 06:43:23 Nayeli RAND [facility] [place] PROCEDURES Final Result * (ABNORMAL) Prothrombin time with INR (06/12/2024 5:19 AM EST) Only the most recent of4 resultswithin the time period is included. Protime 22.0(H) 10.6 - 13.9 sec LAB COAGULATION METHOD 06/12/2024 5:38 AM EST [facility] INR 1.8 LAB COAGULATION METHOD 06/12/2024 5:38 AM EST [facility] Blood Venous blood specimen / Unknown Venipuncture / Unknown 06/12/2024 5:19 AM EST 06/12/2024 5:22 AM EST us Nayeli RAND LAB BLOOD ORDERABLES Final Resu lt Performing Organization Address [facility]/ZIP Co de Phone Number [facility] [address] [place] [address], [place] [phone] * B-type natriuretic peptide (06/12/2024 5:19 AM EST) Only the most recent of2 resultswithin the time period is included. Pathologist [facility] BNP 95 <=100 pcg/mL LAB CHEMISTRY METHOD 06/12/2024 6:10 AM EST [facility] Blood Venous blood specimen / Unknown Venipuncture / Unknown 06/12/2024 5:19 AM EST 06/12/2024 5:22 AM EST us Nayeli RAND LAB BLOOD ORDERABLES Final Resu lt Performing Organization Address [facility] Co de Phone Number [facility] [address] [place] [address], [place] [phone] * (ABNORMAL) Blood culture pathogens molecular study (06/12/2024 3:44 AM EST) [facility] Pseudomonas aeruginosa Detected (A) Not Detected LAB MICROBIOLOGY METHOD 06/13/2024 7:45 AM EST [facility] Blood Venous blood specimen / Unknown Venipuncture / Unknown 06/12/2024 3:44 AM EST 06/12/2024 3:51 AM EST us Nayeli RAND LAB MICROBIOLOGY - GENERAL ORDE RABJUANI Final Result Performing Organization Address [facility]/ZIP Co de Phone Number [facility] [address] [place] [address], [place] [phone] * (ABNORMAL) Lactate (06/12/2024 3:40 AM EST) Only the most recent of6 resultswithin the time period is included. [facility] Lactate 3.2(HH) 0.4 - 2.0 mmol/L LAB CHEMISTRY METHOD 06/12/2024 4:30 AM [facility] Blood Venous blood specimen / Unknown Venipuncture / Unknown 06/12/2024 3:40 AM EST 06/12/2024 3:51 AM EST us Nayeli RAND LAB BLOOD ORDERABLES Final Resu lt [facility] [address] [place] [address], [place] [phone] * (ABNORMAL) Urinalysis with reflex microscopic and culture (06/12/2024 1:15 AM EST) Only the most recent of2 resultswithin the time period is included. [facility] Specific [place] Urine 1.007 1.003 - 1.030 LAB URINALYSIS - AUTOMATED METHOD 06/12/2024 3:41 AM [facility] pH, Urine 6.0 5.0 - 8.0 pH LAB URINALYSIS - AUTOMATED METHOD 06/12/2024 3:41 AM [facility] Leukocytes, Urine Small(A) Negative LAB URINALYSIS - AUTOMATED METHOD 06/12/2024 3:41 AM [facility] Nitrite, Urine Negative Negative LAB URINALYSIS - AUTOMATED METHOD 06/12/2024 3:41 AM [facility] Protein, Urine Negative <=Trace mg/dL LAB URINALYSIS - AUTOMATED METHOD 06/12/2024 3:41 AM [facility] Glucose, Urine Negative Negative mg/dL LAB URINALYSIS - AUTOMATED METHOD 06/12/2024 3:41 AM [facility] Ketones, Urine Negative Negative mg/dL LAB URINALYSIS - AUTOMATED METHOD 06/12/2024 3:41 AM [facility] Urobilinogen, Urine 0.2 0.2 - 1.0 mg/dL LAB URINALYSIS - AUTOMATED METHOD 06/12/2024 3:41 AM [facility] Bilirubin, Urine Negative Negative LAB URINALYSIS - AUTOMATED METHOD 06/12/2024 3:41 AM [facility] Blood, Urine Large(A) Negative LAB URINALYSIS - AUTOMATED METHOD 06/12/2024 3:41 AM [facility] RBC, Urine 156.5(H) 0 - 4 /HPF LAB URINALYSIS - AUTOMATED METHOD 06/12/2024 3:41 AM [facility] WBC, Urine 16.6(H) 0 - 4 /HPF LAB URINALYSIS - AUTOMATED METHOD 06/12/2024 3:41 AM [facility] Squamous Epithelial, Urine 9 0 - 60 /LPF LAB URINALYSIS - AUTOMATED METHOD 06/12/2024 3:41 AM [facility] Bacteria, Urine Negative Negative /HPF LAB URINALYSIS - AUTOMATED METHOD 06/12/2024 3:41 AM [facility] Hyaline Casts, Urine 0.8 0 - 3 /LPF LAB URINALYSIS - AUTOMATED METHOD 06/12/2024 3:41 AM [facility] Urine Urine specimen obtained by clean catch procedure / Unknown Non-blood Collection / Unknown 06/12/2024 1:15 AM EST 06/12/2024 2:59 AM EST us Nayeli RAND LAB URINE ORDERABLES Final Resu lt [facility] [address] [place] [address], * Pugh urine culture tube (06/12/2024 1:15 AM EST) Only the most recent of2 resultswithin the time period is included. Extra Tube Hold for add-ons. 06/12/2024 4:01 AM EST [facility] Comment:Auto resulted. Urine Urine specimen obtained by clean catch procedure / Unknown Non-blood Collection / Unknown 06/12/2024 1:15 AM EST 06/12/2024 2:59 AM EST Nayeli RAND LAB URINE ORDERABLES Final Resu lt [facility] [address] [place] [address], [place] [phone] * (ABNORMAL) Culture urine (06/12/2024 1:15 AM EST) Only the most recent of2 resultswithin the time period is included. Culture, Urine >100,000 CFU/mL Pseudomonas aeruginosa(A) SAVANNAH 06/15/2024 9:00 AM EST [facility] Comment: This is an edited [...] MICROBIOLOGY - GENERAL ORDE RABLES Final Result [facility] [address] [place] [address], * (ABNORMAL) Thyroid stimulating hormone (05/26/2024 6:59 AM EST) TSH 5.20(H) 0.40 - 4.00 mcIU/mL LAB CHEMISTRY METHOD 05/26/2024 1:24 PM EST [facility] Blood Venous blood specimen / Unknown Venipuncture / Unknown 05/26/2024 6:59 AM EST 05/26/2024 10:29 AM EST us Gerry Barksdale LAB BLOOD ORDERABLES Final Resul t [facility] [address] [place] [address], * Folate (05/26/2024 6:59 AM EST) Pathologist [facility] Folate 4.3 2.8 - 17.0 ng/ml LAB CHEMISTRY METHOD 05/26/2024 1:39 PM EST [facility] Blood Venous blood specimen / Unknown Venipuncture / Unknown 05/26/2024 6:59 AM EST 05/26/2024 10:29 AM EST us Gerry Barksdale LAB BLOOD ORDERABLES Final Resul t [facility] [address] [place] [address], [place] [phone] * (ABNORMAL) Vitamin B12 (05/26/2024 6:59 AM EST) Vitamin B-12 1,309(H) 250 - 900 pcg/mL LAB CHEMISTRY METHOD 05/26/2024 1:39 PM EST [facility] Blood Venous blood specimen / Unknown Venipuncture / Unknown 05/26/2024 6:59 AM EST 05/26/2024 10:29 AM EST us [place] LAB BLOOD ORDERABLES Final Resul t [facility] [address] [place] [address], * (ABNORMAL) Comprehensive metabolic panel (05/26/2024 6:59 AM EST) Only the most recent of4 resultswithin the time period is included. Sodium 133 133 - 145 mmol/L LAB CHEMISTRY METHOD 05/26/2024 1:16 PM [facility] Potassium 3.6 3.5 - 5.5 mmol/L LAB CHEMISTRY METHOD 05/26/2024 1:16 PM [facility] Chloride 95(L) 96 - 110 mmol/L LAB CHEMISTRY METHOD 05/26/2024 1:16 PM [facility] CO2 31 21 - 32 mmol/L LAB CHEMISTRY METHOD 05/26/2024 1:16 PM [facility] Anion Gap 7 3 - 11 LAB CHEMISTRY METHOD 05/26/2024 1:16 PM [facility] Glucose 116(H) 70 - 100 mg/dL LAB CHEMISTRY METHOD 05/26/2024 1:16 PM [facility] BUN 15 5 - 25 mg/dL LAB CHEMISTRY METHOD 05/26/2024 1:16 PM [facility] Creatinine 0.52(L) 0.70 - 1.30 mg/dL LAB CHEMISTRY METHOD 05/26/2024 1:16 PM [facility] eGFR 111 >=60 mL/min/1. 73m2 LAB CHEMISTRY METHOD 05/26/2024 1:16 PM [facility] Comment:Calculation based on the??Chronic Kidney Disease Epidemiology Collaboration (CKD-EPI) equation refit??without adjustment for race. BUN/Creatinine Ratio 28.8 LAB CHEMISTRY METHOD 05/26/2024 1:16 PM [facility] Calcium 8.2(L) 8.5 - 10.5 mg/dL LAB CHEMISTRY METHOD 05/26/2024 1:16 PM [facility] AST (SGOT) 27 10 - 42 unit/L LAB CHEMISTRY METHOD 05/26/2024 1:16 PM [facility] ALT (SGPT) 20 10 - 60 unit/L LAB CHEMISTRY METHOD 05/26/2024 1:16 PM [facility] Alkaline Phosphatase 139(H) 42 - 121 unit/L LAB CHEMISTRY METHOD 05/26/2024 1:16 PM [facility] Total Protein 6.0 6.0 - 8.0 g/dL LAB CHEMISTRY METHOD 05/26/2024 1:16 PM [facility] Albumin 2.3(L) 3.2 - 5.0 g/dL LAB CHEMISTRY METHOD 05/26/2024 1:16 PM [facility] Total Bilirubin 3.2(H) 0.0 - 1.4 mg/dL LAB CHEMISTRY METHOD 05/26/2024 1:16 PM [facility] Blood Venous blood specimen / Unknown Venipuncture / Unknown 05/26/2024 6:59 AM EST 05/26/2024 10:29 AM EST us Gerry Barksdale LAB BLOOD ORDERABLES Final Resul t [facility] [address] [place] [address], * Vancomycin, trough (05/23/2024 12:10 PM EST) Only the most recent of3 resultswithin the time period is included. Vancomycin Trough 13.0 10.0 - 20.0 mcg/mL LAB CHEMISTRY METHOD 05/23/2024 12:59 PM [facility] Blood Venous blood specimen / Unknown Venipuncture / Unknown 05/23/2024 12:10 PM EST 05/23/2024 12:28 PM EST us Hue RAND LAB BLOOD ORDERABLES Final Re sult Performing Organization Address [facility]/ZIP Co de Phone Number [facility] [address] [place] [address], [place] [phone] * Lavender tube (05/23/2024 3:07 AM EST) Only the most recent of2 resultswithin the time period is included. Extra Tube Hold for add-ons. 05/23/2024 5:01 AM EST [facility] Comment:Auto resulted. Blood Venous blood specimen / Unknown 05/23/2024 3:07 AM EST 05/23/2024 3:19 AM EST us Chemo Reveles MD LAB BLOOD ORDERABLES Final Resu lt Performing Organization Address [facility] Co de Phone Number [facility] [address] [place] [address], [place] [phone] * Vascular US duplex lower extremity venous [...] Signed Date: 05/21/2024 09:23 ET Workstation ID: [id number] Transcribed By: Self Edit Transcribed Date: 05/21/2024 [...] Signed Date: 05/21/2024 09:23 ET Workstation ID: [id number] Transcribed By: Self Edit Transcribed Date: 05/21/2024 09:22 ET us Chemo Reveles MD CV VASCULAR PROCEDURES Final Re sult * (ABNORMAL) Thyroid stimulating hormone with reflex to free t4 and free t3 (05/21/2024 3:17 AM EST) TSH 8.16(H) 0.40 - 4.00 mcIU/mL LAB CHEMISTRY METHOD 05/21/2024 3:59 AM EST [facility] Blood Venous blood specimen / Unknown Venipuncture / Unknown 05/21/2024 3:17 AM EST 05/21/2024 3:23 AM EST us Chemo Reveles MD LAB BLOOD ORDERABLES Final Resu lt Performing Organization Address [facility]/ZIP Co de Phone Number [facility] [address] [place] [address], * Free thyroxine with reflex to free triiodothyronine (05/21/2024 3:17 AM EST) Free T4 1.02 0.70 - 1.80 ng/dL LAB CHEMISTRY METHOD 05/21/2024 4:25 AM EST [facility] Blood Venous blood specimen / Unknown Venipuncture / Unknown 05/21/2024 3:17 AM EST 05/21/2024 3:23 AM EST us Chemo Reveles MD LAB BLOOD ORDERABLES Final Resu lt Performing Organization Address [facility] Co de Phone Number [facility] [address] [place] [address], * Triiodothyronine free (05/21/2024 3:17 AM EST) T3, Free 249 230 - 420 pcg/dL LAB CHEMISTRY METHOD 05/21/2024 4:50 AM EST [facility] Blood Venous blood specimen / Unknown Venipuncture / Unknown 05/21/2024 3:17 AM EST 05/21/2024 3:23 AM EST us Chemo Reveles MD LAB BLOOD ORDERABLES Final Resu lt Performing Organization Address City/[facility]/ZIP Co de Phone Number [facility] [address] [place] [address], * Hemoglobin A1c (05/21/2024 3:17 AM EST) Hemoglobin A1C 4.9 <6.5 % LAB CHEMISTRY METHOD 05/21/2024 1:49 PM EST [facility] Mean Bld Glu Estim. 94 mg/dL LAB CHEMISTRY METHOD 05/21/2024 1:49 PM EST [facility] Blood Venous blood specimen / Unknown Venipuncture / Unknown 05/21/2024 3:17 AM EST 05/21/2024 3:23 AM EST us Chemo Reveles MD LAB BLOOD ORDERABLES Final Resu lt Performing Organization Address [facility]/ZIP Co de Phone Number [facility] [address] [place] [address], [place] [phone] * (ABNORMAL) POCT Glucose, blood (05/20/2024 8:37 AM EST) Glucose POCT 162(H) 70 - 100 mg/dL 05/20/2024 8:37 AM EST [facility] Blood Capillary blood specimen / Unknown 05/20/2024 8:37 AM EST 05/20/2024 8:38 AM EST us Chemo Reveles MD LAB POINT OF CARE TE ST DOCKED DEVICE UNSOLICITED RESULTS Final Result Performing Organization Address [facility] [facility] de Phone Number [facility] [address] [place] [address], [place] [phone] * (ABNORMAL) Sedimentation rate (05/20/2024 6:09 AM EST) Sed Rate 35(H) 0 - 20 mm/hr LAB HEMETOLOGY METHOD 05/20/2024 2:00 PM EST [facility] Blood Venous blood specimen / Unknown Venipuncture / Unknown 05/20/2024 6:09 AM EST 05/20/2024 6:32 AM EST us Chemo Reveles MD LAB BLOOD ORDERABLES Final Resu lt Performing Organization Address City/[facility]/ZIP Co de Phone Number [facility] [address] [place] [address], [place] [phone] * XR Chest 2 Views (05/19/2024 6:51 PM EST) Anatomical Region Laterality Modality Body Radiographic Esmer ging 05/20/2024 8:05 AM EST Impressions 05/20/2024 8:06 AM EST Small-moderate left pleural effusion. -------- FINAL REPORT -------- Dictated By: Frank Vivar Dictated Date: 05/20/2024 08:05 ET Assigned Physician: Frank Vivar Reviewed and Electronically Signed By: Frank Vivar Signed Date: 05/20/2024 08:06 ET Workstation ID: [id number] Transcribed By: Self Edit Transcribed Date: 05/20/2024 [...] Signed Date: 05/20/2024 08:06 ET Workstation ID: [id number] Transcribed By: Self Edit Transcribed Date: 05/20/2024 08:05 ET Hue RAND IMG XR PROCEDURES Final Resul t * (ABNORMAL) Lipase (05/19/2024 4:10 PM EST) Pathologist [facility] Lipase 76(H) 13 - 75 unit/L LAB CHEMISTRY METHOD 05/19/2024 4:59 PM EST [facility] Blood Venous blood specimen / Unknown Venipuncture / Unknown 05/19/2024 4:10 PM EST 05/19/2024 4:25 PM EST Emily Lasha Gant Singh DO LAB BLOOD ORDERABLES Berenice l Result Performing Organization Address [facility] de Phone Number [facility] [address] [place] [address], * Alpha fetoprotein tumor marker (04/07/2024 11:53 AM EST) Pathologist [facility] AFP 4.2 0.0 - 8.0 ng/mL LAB CHEMISTRY METHOD 04/07/2024 3:03 PM EST [facility] Blood Venous blood specimen / Unknown Venipuncture / Unknown 04/07/2024 11:53 AM EST 04/07/2024 11:53 AM EST Narrative [facility] - 04/07/2024 3:03 PM EST The Siemens Advia Centaur Chemiluminescent Immunoassay is used. Results obtained with different assay methods or kits cannot be used interchangeably. Results cannot be interpreted as absolute evidence of the presence or absence of malignant disease. Han Sloan DO LAB BLOOD ORDERABLES Final Resul t Performing Organization Address [facility] Co de Phone Number [facility] [address] [place] [address], * Ferritin (04/07/2024 11:53 AM EST) Ferritin 118 26 - 388 ng/mL LAB CHEMISTRY METHOD 04/07/2024 3:00 PM EST [facility] Blood Venous blood specimen / Unknown Venipuncture / Unknown 04/07/2024 11:53 AM EST 04/07/2024 11:53 AM EST us Han Sloan DO LAB BLOOD ORDERABLES Final Resul t [facility] ([facility]) [facility] [address] [place] [address], [place] [phone] from Last 3 Months Insurance [facility] Member Subscriber Plan / Payer (Ef fective 2023-Present) Name:Jonny Reed Relation to Subscriber:Self Name:Jonny Reed Payer ID:[id number] Group ID:[id number] Type:Not on file Address: [place] [address] [address] [phone] Advance Directives Documents on File Type Date Recorded Patient Roping Tender Expl anation Advance Directives and Living Will 03/04/2024 11:52 AM Advance Directives and Living Will 03/03/2024 1:15 PM [facility] Proxy * Full Code - Default [...] Agents on File Name Relationship Healthcare Agent Relationshi p Communication Elinor Cortez Grimes Health Care Agent Care Teams Classifications Officer Cc/Cm Relationship Specialty Start Date End Date Dalia Harmon PA [address] [place] [address], [address] [place] [address] PCP - General 05/10/24
--- OUTSIDE RECORDS SUMMARY | 2024-06-29 18:08 | XMS_ITS | Encounter Summary ---
Author Organization [facility] Address [address] [place] [address] Care Team Providers Care Administrative Services Director Name Role Phone Dalia Harmon Primary Care Provider [phone] Encounter Details Date Type Department Care Team (Late st Contact Info) Description 05/28/2024 Lab Requisition [facility] Main Lab [address] [place] [phone] Gerry Barksdale [address] [place] [address] [phone] [place] [phone] Sepsis, unspecified organism (CMS/HCC) Social History Tobacco [...] Info) Description 07/06/2024 1:00 PM EDT Appointment [facility] Interventional Radiology [address] [place] [phone] 08/12/2024 10:30 AM EDT Ancillary Procedure [facility] [address] [place] [phone] 08/26/2024 8:30 AM EDT Office Visit Gastroenterology - [place] [address] [place] [phone] LutherHan DO [address] [place] [address] documented as of this encounter Procedures Procedure Name Priority Date/Time Associated Diagnosis Comments COMPLETE BLOOD COUNT Routine 05/31/2024 8:09 AM EST Sepsis, unspecified organism (CMS/HCC) BASIC METABOLIC PANEL Routine 05/31/2024 8:09 AM EST Sepsis, unspecified organism (CMS/HCC) documented in this encounter Results * (ABNORMAL) Basic metabolic panel (05/31/2024 8:09 AM EST) Sodium 135 133 - 145 mmol/L LAB CHEMISTRY METHOD 05/31/2024 10:57 AM [facility] Potassium 3.9 3.5 - 5.5 mmol/L LAB CHEMISTRY METHOD 05/31/2024 10:57 AM [facility] Chloride 101 96 - 110 mmol/L LAB CHEMISTRY METHOD 05/31/2024 10:57 AM [facility] CO2 29 21 - 32 mmol/L LAB CHEMISTRY METHOD 05/31/2024 10:57 AM [facility] Anion Gap 5 3 - 11 LAB CHEMISTRY METHOD 05/31/2024 10:57 AM [facility] Glucose 116(H) 70 - 100 mg/dL LAB CHEMISTRY METHOD 05/31/2024 10:57 AM [facility] BUN 12 5 - 25 mg/dL LAB CHEMISTRY METHOD 05/31/2024 10:57 AM [facility] Creatinine 0.47(L) 0.70 - 1.30 mg/dL LAB CHEMISTRY METHOD 05/31/2024 10:57 AM [facility] eGFR 115 >=60 mL/min/1. 73m2 LAB CHEMISTRY METHOD 05/31/2024 10:57 AM [facility] Comment:Calculation based on the??Chronic Kidney Disease Epidemiology Collaboration (CKD-EPI) equation refit??without adjustment for race. BUN/Creatinine Ratio 25.5 LAB CHEMISTRY METHOD 05/31/2024 10:57 AM [facility] Calcium 8.2(L) 8.5 - 10.5 mg/dL LAB CHEMISTRY METHOD 05/31/2024 10:57 AM [facility] Blood Venous blood specimen / Unknown Venipuncture / Unknown 05/31/2024 8:09 AM EST 05/31/2024 9:54 AM EST Gerry Barksdale LAB BLOOD ORDERABLES Final Resul t [facility] [address] [place] [address], * (ABNORMAL) Complete blood count (05/31/2024 8:09 AM EST) WBC 5.3 4.8 - 10.8 K/mcL LAB HEMETOLOGY METHOD 05/31/2024 10:28 AM [facility] RBC 3.50(L) 4.50 - 5.50 M/mcL LAB HEMETOLOGY METHOD 05/31/2024 10:28 AM [facility] Hemoglobin 11.8(L) 13.5 - 17.5 g/dL LAB HEMETOLOGY METHOD 05/31/2024 10:28 AM [facility] Hematocrit 36.4(L) 42.0 - 54.0 % LAB HEMETOLOGY METHOD 05/31/2024 10:28 AM [facility] MCV 105.5(H) 79.0 - 98.0 FL LAB HEMETOLOGY METHOD 05/31/2024 10:28 AM EST [facility] MCH 34.2(H) 27.0 - 32.0 pcg LAB HEMETOLOGY METHOD 05/31/2024 10:28 AM [facility] MCHC 32.4 32.0 - 37.0 g/dL LAB HEMETOLOGY METHOD 05/31/2024 10:28 AM EST [facility] RDW 17.1(H) 11.0 - 15.0 % LAB HEMETOLOGY METHOD 05/31/2024 10:28 AM EST [facility] Platelets 149 130 - 400 K/mcL LAB HEMETOLOGY METHOD 05/31/2024 10:28 AM [facility] MPV 10.5 7.0 - 11.0 FL LAB HEMETOLOGY METHOD 05/31/2024 10:28 AM EST [facility] NRBC 0.0 <1.0 % LAB HEMETOLOGY METHOD 05/31/2024 10:28 AM [facility] NRBC Absolute 0.00 <0.10 K/mcL LAB HEMETOLOGY METHOD 05/31/2024 10:28 AM [facility] Blood Venous blood specimen / Unknown Venipuncture / Unknown 05/31/2024 8:09 AM EST 05/31/2024 9:53 AM EST Gerry Barksdale LAB BLOOD ORDERABLES Final Resul t [facility] [address] [place] [address], documented in this encounter Visit Diagnoses Diagnosis Sepsis, unspecified organism (CMS/HCC) documented in this encounter Care Teams Administrative Services Director Relationship Specialty Start Date End Date Dalia Harmon PA [address], [address] [place] [address] PCP - General 05/10/24 documented as of this encounter
--- OUTSIDE RECORDS SUMMARY | 2024-06-29 18:09 | XMS_ITS | Encounter Summary ---
Author Organization [facility] Address [address] [place] [address] Care Team Providers Care Camp Assistant Name Role Phone Dalia Harmon Primary Care Provider [phone] Encounter Details Date Type Department Care Team (Late st Contact Info) Description 05/26/2024 Lab Requisition [facility] Main Lab [address] [place] [phone] Gerry Barksdale [address] [place] [address] [phone] [place] [phone] Weakness; Urinary tract infection, site not specified [...] Info) Description 07/06/2024 1:00 PM EDT Appointment [facility] Interventional Radiology [address] [place] [phone] 08/12/2024 10:30 AM EDT Ancillary Procedure [facility] - [address] [place] [phone] 08/26/2024 8:30 AM EDT Office Visit Gastroenterology - [place] [address] [facility] [address] [place] [phone] Han Sloan DO [address] [place] [address] documented as of this encounter Procedures Procedure [...] LAB CHEMISTRY METHOD 05/26/2024 1:39 PM EST [facility] Blood Venous blood specimen / Unknown Venipuncture / Unknown 05/26/2024 6:59 AM EST 05/26/2024 10:29 AM EST us Gerry Barksdale LAB BLOOD ORDERABLES Final Resul t [facility] [address] [place] [address], * Folate (05/26/2024 6:59 AM EST) Folate 4.3 2.8 - 17.0 ng/ml LAB CHEMISTRY METHOD 05/26/2024 1:39 PM EST [facility] Blood Venous blood specimen / Unknown Venipuncture / Unknown 05/26/2024 6:59 AM EST 05/26/2024 10:29 AM EST [facility] LAB BLOOD ORDERABLES Final Resul t Performing Organization Address [facility] Co de Phone Number [facility] [address] [place] [address], [place] [phone] * (ABNORMAL) Thyroid stimulating hormone (05/26/2024 6:59 AM EST) Pathologist [facility] TSH 5.20(H) 0.40 - 4.00 mcIU/mL LAB CHEMISTRY METHOD 05/26/2024 1:24 PM EST [facility] Blood Venous blood specimen / Unknown Venipuncture / Unknown 05/26/2024 6:59 AM EST 05/26/2024 10:29 AM EST [facility] LAB BLOOD ORDERABLES Final Resul t Performing Organization Address [facility] de Phone Number [facility] [address] [place] [address], [place] [phone] * (ABNORMAL) Comprehensive metabolic panel (05/26/2024 6:59 AM EST) Pathologist [facility] Sodium 133 133 - 145 mmol/L LAB CHEMISTRY METHOD 05/26/2024 1:16 PM EST [facility] Potassium 3.6 3.5 - 5.5 mmol/L LAB CHEMISTRY METHOD 05/26/2024 1:16 PM [facility] Chloride 95(L) 96 - 110 mmol/L LAB CHEMISTRY METHOD 05/26/2024 1:16 PM EST [facility] CO2 31 21 - 32 mmol/L LAB CHEMISTRY METHOD 05/26/2024 1:16 PM [facility] Anion Gap 7 3 - 11 LAB CHEMISTRY METHOD 05/26/2024 1:16 PM [facility] Glucose 116(H) 70 - 100 mg/dL LAB CHEMISTRY METHOD 05/26/2024 1:16 PM [facility] BUN 15 5 - 25 mg/dL LAB CHEMISTRY METHOD 05/26/2024 1:16 PM [facility] Creatinine 0.52(L) 0.70 - 1.30 mg/dL LAB CHEMISTRY METHOD 05/26/2024 1:16 PM [facility] eGFR 111 >=60 mL/min/1. 73m2 LAB CHEMISTRY METHOD 05/26/2024 1:16 PM [facility] Comment:Calculation based on the??Chronic Kidney Disease Epidemiology Collaboration (CKD-EPI) equation refit??without adjustment for race. BUN/Creatinine Ratio 28.8 LAB CHEMISTRY METHOD 05/26/2024 1:16 PM [facility] Calcium 8.2(L) 8.5 - 10.5 mg/dL LAB CHEMISTRY METHOD 05/26/2024 1:16 PM [facility] AST (SGOT) 27 10 - 42 unit/L LAB CHEMISTRY METHOD 05/26/2024 1:16 PM [facility] ALT (SGPT) 20 10 - 60 unit/L LAB CHEMISTRY METHOD 05/26/2024 1:16 PM [facility] Alkaline Phosphatase 139(H) 42 - 121 unit/L LAB CHEMISTRY METHOD 05/26/2024 1:16 PM [facility] Total Protein 6.0 6.0 - 8.0 g/dL LAB CHEMISTRY METHOD 05/26/2024 1:16 PM [facility] Albumin 2.3(L) 3.2 - 5.0 g/dL LAB CHEMISTRY METHOD 05/26/2024 1:16 PM EST [facility] Total Bilirubin 3.2(H) 0.0 - 1.4 mg/dL LAB CHEMISTRY METHOD 05/26/2024 1:16 PM [facility] Blood Venous blood specimen / Unknown Venipuncture / Unknown 05/26/2024 6:59 AM EST 05/26/2024 10:29 AM EST Gerry Barksdale LAB BLOOD ORDERABLES Final Resul t [facility] [address] [place] [address], * (ABNORMAL) Complete blood count (05/26/2024 6:59 AM EST) WBC 7.6 4.8 - 10.8 K/mcL LAB HEMETOLOGY METHOD 05/26/2024 11:18 AM [facility] RBC 3.50(L) 4.50 - 5.50 M/mcL LAB HEMETOLOGY METHOD 05/26/2024 11:18 AM [facility] Hemoglobin 12.2(L) 13.5 - 17.5 g/dL LAB HEMETOLOGY METHOD 05/26/2024 11:18 AM [facility] Hematocrit 35.5(L) 42.0 - 54.0 % LAB HEMETOLOGY METHOD 05/26/2024 11:18 AM [facility] MCV 100.6(H) 79.0 - 98.0 FL LAB HEMETOLOGY METHOD 05/26/2024 11:18 AM [facility] MCH 34.6(H) 27.0 - 32.0 pcg LAB HEMETOLOGY METHOD 05/26/2024 11:18 AM [facility] MCHC 34.4 32.0 - 37.0 g/dL LAB HEMETOLOGY METHOD 05/26/2024 11:18 AM EST [facility] RDW 15.9(H) 11.0 - 15.0 % LAB HEMETOLOGY METHOD 05/26/2024 11:18 AM EST [facility] Platelets 139 130 - 400 K/mcL LAB HEMETOLOGY METHOD 05/26/2024 11:18 AM EST [facility] MPV 10.8 7.0 - 11.0 FL LAB HEMETOLOGY METHOD 05/26/2024 11:18 AM EST [facility] NRBC 0.0 <1.0 % LAB HEMETOLOGY METHOD 05/26/2024 11:18 AM EST [facility] NRBC Absolute 0.00 <0.10 K/mcL LAB HEMETOLOGY METHOD 05/26/2024 11:18 AM EST [facility] Blood Venous blood specimen / Unknown Venipuncture / Unknown 05/26/2024 6:59 AM EST 05/26/2024 10:29 AM EST us Gerry Barksdale LAB BLOOD ORDERABLES Final Resul t [facility] [address] [place] [address], documented in this encounter Visit Diagnoses Diagnosis Weakness Other malaise and fatigue Urinary tract infection, site not specified documented in this encounter Care Teams Camp Assistant Relationship Specialty Start Date End Date Dalia Harmon PA [address] [place] [address], [address] [place] [address] PCP - General 05/10/24 documented as of this encounter
--- OUTSIDE RECORDS SUMMARY | 2024-06-29 18:09 | XMS_ITS | Encounter Summary ---
Author Organization [facility] Address [address] [place] [address] Care Team Providers Care Clocksmith Name Role Phone Dalia Harmon Primary Care Provider [phone] Reason for Visit * Reason Comments Cirrhosis Encounter Details Date Type Department Care Team (Late st Contact Info) Description 06/24/2024 11:20 AM EST Office Visit Gastroenterology - [place] [address] [place] [phone] Han Sloan DO [address] [place] [address] Cirrhosis of liver with ascites, unspecified hepatic cirrhosis type (CMS/HCC) (Primary Dx); Other ascites; Deep vein thrombosis of portal vein Social History Tobacco Use Types Packs/Day Years [...] Pulse 95 06/24/2024 8:24 AM EST Temperature - - Respiratory Rate - - Oxygen Saturation 96% 06/24/2024 8:24 AM EST Inhaled Oxygen Concentration - - Weight - - Height - - Body Mass Index - - documented in this encounter Functional Status * [...] documented in this encounter Progress Notes * Han Sloan DO - 06/24/2024 11:20 AM EST Images from the original note were not included. INITIAL GI CONSULT CHIEF COMPLAINT: Cirrhosis HPI: 64-year-old male who is following up at [facility] for management of ascites. Please refer to prior clinic notes for detailed history. This is a concise, overbooked appointment to discuss management of his recurrent large-volume diuretic refractory ascites. Over the past 3 months the patient had been hospitalized thrice for infection related issues. Last week, he was hospitalized for 7 days for management of pseudomonal bacteremia suspected to arise from a complicated UTI in the setting of an indwelling Cuello catheter. The patient was found to have recurrent large-volume ascites for which he underwent a paracentesis.The discussion of TIPS has been entertained in the past. He underwent an echocardiogram while at the hospital but demonstrated no evidence of advanced heartfailure or chronic valvular diseases. Today: The patient denies any fevers or chills. He admits to ongoing issues with lower extremity edema, urinary catheter challenges and ascites recommendation. No tiredness. No fatigue. No somnolence. He continues to be active and mentally sharp. He is following a low-salt diet. The patient is taking apixaban for his portal venous thrombosis. ROS: GENERAL: No fever, weight loss, weakness. [...] Anxiety Anasarca Candidal intertrigo Severe sepsis (CMS/HCC) Pseudomonal bacteremia PAST SURGICAL HISTORY: Past Surgical History: Procedure Laterality Date BACK SURGERY PROCEDURE: HISTORICAL BACK SURGERY; COMMENT: spinal diskectomy, osteophytectomy x4 COLONOSCOPY N/A PROCEDURE: HISTORICAL COLONOSCOPY ESOPHAGOGASTRODUODENOSCOPY PROCEDURE: TN ESOPHAGOGASTRODUODENOSCOPY TRANSORAL DIAGNOSTIC OTHER SURGICAL HISTORY Right PROCEDURE: TN STAB [...] Grandparent maternal Obesity Half-Sister Obesity Half-Brother MEDICATIONS: Outpatient Medications Marked as Taking for the 06/24/24 encounter (Office Visit) with Han Sloan DO Medication Sig Dispense Refill albuterol 2.5 mg/0.5 mL solution for nebulization nebulizer solution Take 0.5 mL (2.5 mg total) by nebulization every 6 (six) hours if needed for shortness of breath. apixaban (ELIQUIS) 5 mg tablet Take 1 tablet (5 mg total) by mouth 2 (two) times a day. aspirin 81 mg EC tablet Take 1 tablet (81 mg total) by mouth 1 (one) time each day. cholecalciferol (VITAMIN D-3) 50 mcg (2,000 unit) tablet 1 tablet (2,000 Units total). ciprofloxacin (CIPRO) 500 mg tablet Take 1.5 tablets (750 mg total) by mouth 2 (two) times a day for 10 days. 30 each 0 furosemide (LASIX) 20 mg tablet Take 2 tablets in the morning at 8 AM and 1 tablet in afternoon at 3 PM (Patient taking differently: Take 1 tablet (20 mg total) by mouth 1 (one) time each day. Take 1tablet in afternoon at 3 PM) 90 each 0 naloxone (NARCAN) 4 mg/0.1 mL nasal spray Administer 1 each (4 mg total) into affected nostril(s). oxyBUTYnin XL (DITROPAN-XL) 5 mg 24 hr tablet Take 1 tablet (5 mg total) by mouth 1 (one) time eachday. oxyCODONE (OXY-IR) 5 mg immediate release capsule Take 2 capsules (10 mg total) by mouth every 4 (four) hours if needed for severe pain. Max Daily Amount: 60 mg 15 capsule 0 oxyCODONE (ROXICODONE) 10 mg immediate release tablet Take 1 tablet (10 mg total) by mouth every 4 (four) hours if needed for severe pain. rosuvastatin (CRESTOR) 5 mg tablet Take 1 tablet (5 mg total) by mouth 1 (one) time each day. spironolactone (ALDACTONE) 100 mg tablet Take 1.5 tablets (150 mg total) by mouth 1 (one) time eachday. 45 each 0 tamsulosin (FLOMAX) 0.4 mg 24 hr capsule Take 1 capsule (0.4 mg total) by mouth 1 (one) time each day. zolpidem (AMBIEN) 10 mg tablet Take 1 tablet (10 mg total) by mouth at bedtime as needed. for insomnia ALLERGIES: Allergies Allergen Reactions Codeine Other Reaction(s): Unknown body region Nystatin Cream and Powder Semaglutide Unknown PHYSICAL EXAM: Visit Vitals BP 122/70 (BP Location: Right arm, Patient Position: Sitting) Pulse 95 SpO2 96% Smoking Status Former APPEARANCE: No distress. Non-toxic appearing. HEART: RRR with normal S1 and S2, no murmurs appreciated LUNG: CTA on anterior exam. Not on supplemental O2. ABDOMEN: Obese, ascites is palpable, indwelling catheter, no gross hematuria in the Cuello catheter bag. RECTAL: Exam deferred EXTREMITIES: Bilateral lymphedema. NEURO: AOx3. No focal weaknesses. No asterixis. SKIN: No rashes. No bruising. No jaundice. LABS: Lab Results Component Value Date WBC 4.1 (L) 06/15/2024 HGB 11.9 (L) 06/15/2024 HCT 35.3 (L) 06/15/2024 MCV 102.3 (H) 06/15/2024 PLT 81 (L) 06/15/2024 Lab Results Component Value Date ALT 20 06/13/2024 AST 32 06/13/2024 ALKPHOS 133 (H) 06/13/2024 BILITOT 2.6 (H) 06/13/2024 Lab Results Component Value Date NA 134 [...] 114 06/15/2024 Lab Results Component Value Date LIPASE 76 (H) 05/19/2024 IMAGING: No liver masses seen on prior CT scan. IMPRESSION: 1. Cirrhosis of liver with ascites, unspecified hepatic cirrhosis type (CMS/HCC) 2. Other ascites 3. Deep vein thrombosis of portal vein PLAN: His large volume ascites is significantly and aggressively hurting his quality of life. Noted he feels very uncomfortable with his massively distended abdomen he also is at risk of getting paracentesis related infections anytime soon. He has undergone 4 large-volume paracentesis over the past 3 months despite me quadrupling the dose of his diuretics. TIPS had been discussed. The patient is well-educated and understands the risk of hepatic encephalopathy, stent occlusion, hemodynamic/heart failure changes, etc. It is possible that he may need to continue on diuretics temporarily after TIPS. He also understands that he TIPS is unlikely to fix hischronic LE lymphedema. The patient is scheduled to undergo a TIPS by IR next month. The patient will follow-up with PCP and ID. It is imperative that his Pseudomonas bacteremia is confirmed to be clear prior to TIPS insertion. The patient will follow-up with me after his TIPS for comprehensive management of liver cirrhosis. The patient will continue with apixaban for management of portal venous thrombosis. In the meantime, he will continue to have paracentesis in an as-needed basis. Given his large volume and recurrent ascites, I do not recommend that he goes for an indwelling suprapubic Cuello catheter given the risk of complication. Following the TIPS procedure if the ascites is better controlled, then he could be a candidate for such intervention. I would like to thank No ref. provider found for the opportunity to partake in the patient's care. No orders of the defined types were placed in this encounter. None . I spent a total of 55 minutes today reviewing the chart/medical records, speaking with the patient,formulating, discussing and coordinating the treatment plan/management as well as documenting today's encounter. Signatures Board Certified, Gastroenterology and Internal Medicine Gastroenterology and Hepatology Practice [facility] [email or web address] [phone] [address] [facility] [place] [address] [email or web address] cc: No ref. provider found, GIORGI Hummel documented in this encounter Plan of Treatment Upcoming Encounters Date Type Department Care Team (Latest Contact Info) Description 07/06/2024 1:00 PM EDT Appointment [facility] Interventional Radiology [address] [place] [phone] 08/12/2024 10:30 AM EDT Ancillary Procedure [facility] - [facility] [address] [place] [address] 08/26/2024 8:30 AM EDT Office Visit Gastroenterology - [place] [address] [facility] [address] [facility] [address] [place] [address] Han Sloan DO [address] [facility] [address] [place] [address] documented as of this encounter Visit Diagnoses Diagnosis Cirrhosis of liver with ascites, unspecified hepatic cirrhosis type (CMS/HCC)- Primary Other ascites Deep vein thrombosis of portal vein Portal vein thrombosis documented in this encounter Care Teams Clocksmith Relationship Specialty Start Date End Date Dalia Harmon PA [address] [place] [address], [address] [place] [address] PCP - General 05/10/24 documented as of this encounter
--- OUTSIDE RECORDS SUMMARY | 2024-06-29 18:09 | XMS_ITS | Encounter Summary ---
Author Organization [facility] Address [address] [place] [address] Care Team Providers Care Planer Mill Grader Name Role Phone Dalia Harmon Primary Care Provider [phone] Reason for Visit * Reason Onset Date Comments TESTING 06/03/2024 Encounter Details Date Type Department Care Team (Late st Contact Info) Description 06/03/2024 Telephone Gastroenterology - [place] [address] [place] [address] Han Sloan DO [address] [place] [address] TESTING Social History Tobacco Use Types Packs/Day [...] Info) Description 07/06/2024 1:00 PM EDT Appointment [facility] Interventional Radiology [address] [place] [address] 08/12/2024 10:30 AM EDT Ancillary Procedure [facility] - [address] [place] [address] 08/26/2024 8:30 AM EDT Office Visit Gastroenterology - [place] [address] [facility] [address] [facility] [address] [place] [phone] Han Sloan DO [address] [facility] [address] [place] [address] documented as of this encounter Visit Diagnoses Not on filedocumented in this encounter Care Teams Planer Mill Grader Relationship Specialty Start Date End Date Dalia Harmon PA [address] [facility], [address] [place] [address] PCP - General 05/10/24 documented as of this encounter
--- OUTSIDE RECORDS SUMMARY | 2024-06-29 18:09 | XMS_ITS | Encounter Summary ---
Author Organization [facility] Address [address] [place] [address] Care Team Providers Care Glass Tube Bender Name Role Phone Dalia Harmon Primary Care Provider [phone] Encounter Details Date Type Department Care Team (Late st Contact Info) Description 03/12/2024 Lab Requisition [facility] - Main Lab [address] [place] [phone] Gerry Barksdale [address] [place] [address] [address] [place] [address] Essential (primary) hypertension Social History Tobacco Use [...] Description 07/06/2024 1:[address] [facility] Interventional Radiology [address] [place] [phone] 08/12/2024 10:30 AM EDT Ancillary Procedure [facility] - [address] [place] [address] 08/26/2024 8:30 AM EDT Office Visit Gastroenterology - [place] [address] [place] [address] Han Sloan DO [address] [place] [address] documented as of this encounter Visit Diagnoses Diagnosis Essential (primary) hypertension Unspecified essential hypertension documented in this encounter Care Teams Glass Tube Bender Relationship Specialty Start Date End Date Dalia Harmon PA [address] [place] [address], [address] [place] [address] PCP - General 05/10/24 documented as of this encounter
--- OUTSIDE RECORDS SUMMARY | 2024-06-29 18:09 | XMS_ITS | Encounter Summary ---
Author Organization [facility] Address [address] [place] [address] Care Team Providers Care Track Service Worker Name Role Phone Dalia Harmon Primary Care Provider [phone] Reason for Visit * Reason Onset Date Comments Appointment 06/29/2024 Upcoming Echo Encounter Details Date Type Department Care Team ([facility] st Contact Info) Description 06/29/2024 Telephone Gastroenterology - [place] [address] [place] [address] Han Sloan DO [address] [place] [address] Appointment (Upcoming Echo) Social History Tobacco Use Types Packs/Day Years [...] of Assessment Author No 06/14/2024 1:37 PM Juan Pablo Oneill RN documented as of this encounter Mental Status * Because of a physical, mental, or emotional condition, do you have serious difficulty concentrating, remembering, or making decisions? (5 years old or older) Answer Entry Date Author No 06/14/2024 1:37 PM Yuni Oneill RN documented in this encounter Progress Notes * Oly Vega - 06/29/2024 1:24 PM EDT You placed an order on 05/25/24 for this patient to have an Echocardiogram and the patient is scheduled with us for 08/12/24. The patient as since had this test completed at the hospital on 06/15/24. Does the patient still need this test or can we cancel the upcoming appointment? Thank you, [facility] Scheduling documented in this encounter Plan of Treatment Upcoming Encounters Date Type Department Care Team (Latest Contact Info) Description 07/06/2024 1:00 PM EDT Appointment [facility] Interventional Radiology [address] [place] [phone] 08/12/2024 10:30 AM EDT Ancillary Procedure [facility] - [facility] [address] [facility] [address] [place] [address] 08/26/2024 8:30 AM EDT Office Visit Gastroenterology - [place] 175 [facility] 175 [facility] [address] [place] [phone] Han Sloan DO [address] [facility] [address] [place] [address] documented as of this encounter Visit Diagnoses Not on filedocumented in this encounter Care Teams Track Service Worker Relationship Specialty Start Date End Date Dalia Harmon PA [address] [place] [address], [address] [place] [address] PCP - General 05/10/24 documented as of this encounter
--- OUTSIDE RECORDS SUMMARY | 2024-06-29 18:09 | XMS_ITS | Continuity of Care Document ---
Author Organization [employer] [employer] [facility] [employer] Address [address] [place] [address] Care Team Providers Care Tassel Making Machine Operator Name Role Phone HIM [facility] OTHER [facility] Primary Care Provider Assessment Encounter Date Assessment Date Assessment LastModified by Organization Details LastModified Time 06/10/2024 06/10/2024 I have reviewed and agree with the assessment and plan as documented by the portfolio analyst. I provided real-time medical direction for this encounter and was immediately available to provide additional phone-based assistance as needed. HPI: 64M presenting with malfunctioning catheter, leaking. No other symptoms noted. Was recently tested for UTI and was negative. VSS. Exam otherwise unremarkable per the portfolio analyst. Able to reinsert catheter to have appropriate [...] Name and Address Organization Details Recorded Time 35346 semagluti de medicatio n Not available Not available Not available 03/18/2024 RxNorm Not Available [facility] 4 18:27:38 51679 nystatin medicatio n Not available Not available Not available 06/10/2024 7597 RxNorm Not Available [facility] - production 5 20:32:41 54084 codeine medicatio n Not available Not available Not available 06/10/2024 2670 RxNorm Not Available [facility] - production 5 20:32:41 Medications Name Sig [...] SNOMED-CT Code Diagnosis ICD10 Code Diagnosis Note [id number] Yasmeen Redmond MD Main - [facility] [address] [place] [phone] 06/10/2024 20:56:07 06/10/2024 21:35:04 Indwelling urethral urinary catheter in situ [id number] Z96.0 Health Concerns Section Related Observation LastModified by Organization Detai ls LastModified Time None Recorded Concern Status LastModified by Organization Details LastModified Time None Recorded Payers Encounter Date Sequence Insurance Name Policy Number Policy Pan Covered Member ID Pan Member ID Guarantor Name 06/10/2024 1 [facility] - DOS ON OR AFTER 2022 - DUAL ELIGIBLE - SENIOR LIVING OPTIONS AND ONE CARE (MEDICARE REPLACEMENT/ADV ANTAGE - HMO) Jonny Reed [id number] Jonny Reed Notes Date Note Type Note [...] ................. ................. ................. ................. ................. ................. ..... Dural Mechanic Note From Harley Rodriguez: Dispatched to above [...] urine not obviously displaced, no active leaking. [facility] contacted, advised of patient complaints and exam findings. Catheter balloon drained 10ml sterile water, re-inflated, patient reported discomfort, catheter advanced and re-inflated without pain, urine moving in tubing, patient denies discomfort. [facility] advised of catheter troubleshooting, recommends home monitoring with follow up should leaking continue. Patient agrees with this plan. Patient has no additional questions or concerns at this time. SC8 clear. EOR. ................. ................. ................. ................. ................. ................. ................. ................. ..... [facility] Consulted: Yasmeen Redmond ................. ................. ................. ................. ................. ................. ................. ................. ..... Disposition: Fulfilled Yasmeen Redmond MD [address] [place] [address],[address] [facility], [place], [address], RADHA - ANNE FRY 06/10/2024 21:28:25
--- OUTSIDE RECORDS SUMMARY | 2024-06-29 18:09 | XMS_ITS | Encounter Summary ---
Author Organization [facility] Address [address] [place] [address] Care Team Providers Care Investigator Vice Name Role Phone Dalia Harmon Primary Care Provider [phone] Reason for Visit * Reason Onset Date Comments provider call back 05/24/2024 Encounter Details Date Type Department Care Team (Late st Contact Info) Description 05/24/2024 Telephone Gastroenterology - [place] [address] [place] [address] Han Sloan DO [address] [place] [address] provider call back Social History Tobacco Use [...] Info) Description 07/06/2024 1:00 PM EDT Appointment [facility] Interventional Radiology [address] [place] [address] 08/12/2024 10:30 AM EDT Ancillary Procedure [facility] - [address] [place] [address] 08/26/2024 8:30 AM EDT Office Visit Gastroenterology - [place] [address] [facility] [address] [place] [phone] Han Sloan DO [address] [facility] [address] [place] [address] documented as of this encounter Visit Diagnoses Not on filedocumented in this encounter Care Teams Investigator Vice Relationship Specialty Start Date End Date Dalia Harmon PA [address] [place] [address], [address] [place] [address] PCP - General 05/10/24 documented as of this encounter
--- OUTSIDE RECORDS SUMMARY | 2024-06-29 18:09 | XMS_ITS | Data Portability ---
Author Organization [employer] Address [address] [place] [address] Care Team Providers Care Sample Body Builder Name Role Phone HIM [facility] OTHER [facility] Primary Care Provider [phone] Assessment Encounter Date Assessment Date Assessment LastModified [...] assessment and plan as documented by the puddler helper. I provided real-time medical direction for this encounter and was immediately available to provide additional phone-based assistance as needed. HPI: 64M presenting with malfunctioning catheter, leaking. No other symptoms noted. Was recently tested for UTI and was negative. VSS. Exam otherwise unremarkable per the puddler helper. Able to reinsert catheter to have appropriate [...] in the field was performed by my puddler helper colleague, as noted above, I provided real-time [...] needs coags and platelets checked Disposition: To [facility] ED via 911. Patient is [...] culture,comp rehensive Final report Not Available [facility] ([facility]) [address] [facility], [place], [address], 03/19/2024 10:05:46 03/16/2003/19/2024 URINE CULTU RE,CO MPREH ENSIV E result 1 COMMEN T No growt h in 36 - 48 hours . Not Available [facility] ([facility]) [address] [facility], [place], [address], 03/19/2024 10:05:46 Result Notes None recorded. Medical Equipment None Reported. Allergies Allergen ID Allergen Name Allergen Category Reaction Reaction Severity Criticality Documentation Date Start Date Code Code System Note Provider Name and Address Organization Details Recorded Time 92589 semagluti de medicatio n Not available Not available Not available 03/18/2024 RxNorm Not Available [facility] - [employer] 4 18:27:38 98960 nystatin medicatio n Not available Not available Not available 06/10/2024 7597 RxNorm Not Available [facility] - production 5 20:32:41 57467 codeine medicatio n Not available Not available [...] cm 96 % 96 % 98 [degF] 895675 g 14 /min 77 /min 134 mm[Hg] 82 mm[Hg] Not Available [facility] 4 19:24:57 Date Recorded Body weight Oxygen saturation Oxygen saturation in Arterial blood by Pulse oximetry Respiratory rate Body temperature Heart rate Systolic blood pressure Diastolic blood pressure Provider Name and Address Organization Details Last Updated DateTime 5 140841. 28 g 97 % 97 % 16 /min 98.2 [degF] 86 /min 156 mm[Hg] 82 mm[Hg] Not Available [facility] [facility] [employer] 2000 5 10:41:34 Date Recorded Body weight Body height Body temperature Oxygen saturation Oxygen saturation in Arterial blood by Pulse oximetry Respiratory rate Heart rate Systolic blood pressure Diastolic blood pressure Provider Name and Address Organization Details Last Updated DateTime 5 596971. 28 g 167.64 cm 98 [degF] 94 % 94 % 16 /min 87 /min 162 mm[Hg] 72 mm[Hg] Not Available [facility] [employer] 5 18:57:19 Date Recorded Heart rate Oxygen [...] cm 97 % 97 % 99 /min 870375. 584 g 20 /min 150 mm[Hg] 90 mm[Hg] Not Available [facility] [facility] - production 20:56:17 Social History None recorded. Functional Status None recorded. Mental Status None recorded. Family History Nothing Reported. Medical History No medical history recorded. Past Encounters Encounter ID Performer Location Encounter Start Date Encounter Closed Date Diagnosis/Indication Diagnosis SNOMED-CT Code Diagnosis ICD10 Code Diagnosis Note [id number] Aleksandar Manning MD Main - [facility] [address] [place] [phone] 03/16/2024 13:37:07 03/16/2024 16:05:19 Mechanical complication of urethral indwelling catheter 81837894 T83.098A [id number] [facility] [address] [place], [place] [phone] 03/18/2024 19:24:55 03/19/2024 15:31:31 Complication of urinary catheter 643695486 T83.9XXA [id number] Juan [facility] [address] [place] [phone] 04/23/2024 10:41:31 04/23/2024 16:17:35 Complication of urinary catheter 651065730 T83.9XXA As noted, we were called to see this patient regarding concerns of malpositio n of alex catheter Evaluation in the field was performed by my puddler helper colleague, as noted above, I provided real-time direction and supervisio n for this visit. The evaluation revealed normal VS and simple disconnect ion, which the patient was not able to adequately visualize due to body habitus. Impression :Alex disconnect ion without any patient complicati ons Plan:Recon Prashant crawford [id number] Betsy Lopez MD Main - [facility] [address] [place] [phone] 04/25/2024 18:57:17 04/26/2024 00:18:55 Complication of urinary catheter 141999600 T83.9XXS As noted, we were called to see this patient regarding concerns of malfunctio vy urinary catheter. Evaluation in the field was performed by my puddler helper colleague, as noted above, I provided real-time [...] of any new or worsening serious symptoms. [id number] Yasmeen Redmond MD Main - [facility] [address] [place] [phone] 06/10/2024 20:56:07 06/10/2024 21:35:04 Indwelling urethral urinary catheter in situ 083996796 Z96.0 [id number] FRANSISCO POLANCO MD Main - [facility] [address] [place] [phone] 06/11/2024 20:56:11 06/12/2024 09:25:59 Jovi hematuria 590299980 R31.0 Health Concerns Section Related Observation LastModified by Organization Detai ls LastModified Time None Recorded Concern Status LastModified by Organization Details LastModified Time None Recorded Advance Directives Directive None Recorded Payers Encounter Date Sequence Insurance Name Policy Number Policy Pan Covered Member ID Pan Member ID Guarantor Name 03/18/2024 1 [facility] - DOS ON OR AFTER 2022 - DUAL ELIGIBLE - LONG-TERM OPTIONS AND ONE CARE (MEDICARE REPLACEMENT/ADV ANTAGE - HMO) Jonny Reed [id number] Jonny Reed 04/23/2024 1 [employer] - DOS ON OR AFTER 2022 - DUAL ELIGIBLE - LONG-TERM OPTIONS AND ONE CARE (MEDICARE REPLACEMENT/ADV ANTAGE - HMO) Jonny Alejandroes [id number] Jonny Reed 04/25/2024 1 [employer] - DOS ON OR AFTER 2022 - DUAL ELIGIBLE - LONG-TERM OPTIONS AND ONE CARE (MEDICARE REPLACEMENT/ADV ANTAGE - HMO) Jonny Derek [id number] Jonny Reed 06/10/2024 1 [facility] [employer] - DOS ON OR AFTER 2022 - DUAL ELIGIBLE - LONG-TERM OPTIONS AND ONE CARE (MEDICARE REPLACEMENT/ADV ANTAGE - HMO) Jonny Alejandroes [id number] Jonny Alejandroes 06/11/2024 1 [facility] [employer] - DOS ON OR AFTER 2022 - DUAL ELIGIBLE - LONG-TERM OPTIONS AND ONE CARE (MEDICARE REPLACEMENT/ADV ANTAGE - HMO) Jonny Reed [id number] Jonny Burnett Reed Notes Date Note Type [...] needed. [facility] Alex cath changed - [...] ................... ................... ................... ................... ................... ................... ........ Hide And Skin Classer Note From Esa Francisco: Patient alert and oriented seated in chair. Patient complains of leakage around urethra. Patient reports alex catheter inserted times two days ago by [facility] personnel. Patient reports he noticed urine [...] encouraged to monitor site, contact [facility] home health care respiratory therapist to help arrange urology referral, and call [facility] again if needed. Patient and caregiver demonstrates understanding of care and plan. Patient grateful for assistance. ................... ................... ................... ................... ................... ................... ................... ........ [facility] Consulted: Elvi Pereira ................... ................... ................... ................... ................... ................... ................... ........ Disposition: Fulfilled Elvi Pereira MD [address] [place] [address],[address], [place], [phone], [employer] 03/18/2024 20:14:22 04/23/2024 text/html [facility] Nurse Triage [...] PMH: Chronic Back Pain, Hypertension, Cirrhosis Comments: [employer] Pinion Adjuster verified the name//address and phone number. Pt [...] ................... ................... ................... ................... ................... ................... ........ Hide And Skin Classer Note From Hussein Grossman: Pt co alex cath disconnection from bag tube. Pt got up and it fell off. Pay can not see th area due to obesity and was unsure what had happened. Pt denies pain. Pt sts urine is sti voiding from catheter. Pt has no other complaints. Alex reconnected without issue. Pt education on signs indicating the ER. [facility] contacted and advised of resolution. ................... ................... ................... ................... ................... ................... ................... ........ [facility] Consulted: Justin Bustillo ................... ................... ................... ................... ................... ................... ................... ........ Disposition: Fulfilled Juan Antonio Bustillo MD [address] [facility],[address], [place], [address], [employer] 04/23/2024 10:47:59 04/25/2024 text/html [facility] Nurse Triage [...] PMH: Chronic Back Pain, Hypertension, Cirrhosis Comments: [employer] Adjuster verified the Pt.'s name//address and phone number. [...] ................... ................... ................... ................... ................... ................... ........ Hide And Skin Classer Note From Marcellus Mauro: This 64-year-old male [...] ................... ................... ................... ................... ........ [facility] Consulted: Betsy Lopez ................... ................... ................... ................... ................... ................... ................... ........ Disposition: Barbara Lopez MD [address] [facility],[address], [place], [address], [employer] 04/25/2024 20:46:05 06/10/2024 text/html [facility] Nurse Triage Notes (Elsie Sultana - VIVIAN): [...] ................... ................... ................... ................... ................... ................... ........ Hide And Skin Classer Note From Harley Rodriguez: Dispatched to above [...] urine not obviously displaced, no active leaking. [facility] contacted, advised of patient complaints and exam findings. Catheter balloon drained 10ml sterile water, re-inflated, patient reported discomfort, catheter advanced and re-inflated without pain, urine moving in tubing, patient denies discomfort. [facility] advised of catheter troubleshooting, recommends home monitoring with follow up should leaking continue. Patient agrees with this plan. Patient has no additional questions or concerns at this time. SC8 clear. EOR. ................... ................... ................... ................... ................... ................... ................... ........ [facility] Consulted: Yasmeen Redmond ................... ................... ................... ................... ................... ................... ................... ........ Disposition: Fulfilled Yasmeen Redmond MD [address] [place] [address],[address], [place], [phone] [employer] [facility] 06/10/2024 21:28:25 06/11/2024 text/html [facility] Nurse Triage Notes (Elsie Sultana - RN): Reason For Request: Patient has cath problems, Urine and blood in the back, problems all morning with it. Chief Complaints: Urinary catheter/nephrostom y tube problems PMH: Chronic Back Pain, Hypertension, Cirrhosis PMH Reviewed at 06/11/2024 - 18:22 Allergies Reviewed at 06/11/2024 - 18:22 Comments: [facility], catheter changed during [...] with worsening s/sx-NE FRANSISCO POLANCO MD [address] [facility],[address], [place], [address], [employer] 06/11/2024 22:21:06
--- OUTSIDE RECORDS SUMMARY | 2024-06-29 18:09 | XMS_ITS | Encounter Summary ---
Author Organization [facility] Address [address] [place] [address] Care Team Providers Care Boat Finisher Name Role Phone Dalia Harmon Primary Care Provider [phone] Encounter Details Date Type Department Care Team (Late st Contact Info) Description 03/05/2024 Lab Requisition [facility] - Main Lab [address] [facility] [place] [address] Gerry Barksdale MD [address] [address] Essential (primary) hypertension Social History Tobacco Use [...] Info) Description 07/06/2024 1:00 PM EDT Appointment [facility] Interventional Radiology [address] [place] [phone] 08/12/2024 10:30 AM EDT Ancillary Procedure [facility] [address] [place] [address] 08/26/2024 8:30 AM EDT Office Visit Gastroenterology - [place] [address] [place] [address] [facility] [address] [place] [address] documented as of this encounter Procedures Procedure Name Priority Date/Time Associated Diagnosis Comments COMPLETE BLOOD COUNT Routine 03/08/2024 9:48 AM EST Essential (primary) hypertension BASIC METABOLIC PANEL Routine 03/08/2024 9:48 AM EST Essential (primary) hypertension documented in this encounter Results * (ABNORMAL) Basic metabolic panel (03/08/2024 9:48 AM EST) Sodium 138 133 - 145 mmol/L LAB CHEMISTRY METHOD 03/08/2024 1:23 PM [facility] Potassium 4.2 3.5 - 5.5 mmol/L LAB CHEMISTRY METHOD 03/08/2024 1:23 PM [facility] Chloride 102 96 - 110 mmol/L LAB CHEMISTRY METHOD 03/08/2024 1:23 PM [facility] CO2 26 21 - 32 mmol/L LAB CHEMISTRY METHOD 03/08/2024 1:23 PM [facility] Anion Gap 10 3 - 11 LAB CHEMISTRY METHOD 03/08/2024 1:23 PM [facility] Glucose 186(H) 70 - 100 mg/dL LAB CHEMISTRY METHOD 03/08/2024 1:23 PM [facility] BUN 14 5 - 25 mg/dL LAB CHEMISTRY METHOD 03/08/2024 1:23 PM [facility] Creatinine 0.76 0.70 - 1.30 mg/dL LAB CHEMISTRY METHOD 03/08/2024 1:23 PM [facility] eGFR 99 >=60 mL/min/1. 73m2 LAB CHEMISTRY METHOD 03/08/2024 1:23 PM EST [facility] Comment:Calculation based on the??Chronic Kidney Disease Epidemiology Collaboration (CKD-EPI) equation refit??without adjustment for race. BUN/Creatinine Ratio 18.4 LAB CHEMISTRY METHOD 03/08/2024 1:23 PM EST [facility] Calcium 8.7 8.5 - 10.5 mg/dL LAB CHEMISTRY METHOD 03/08/2024 1:23 PM [facility] Blood Venous blood specimen / Unknown Venipuncture / Unknown 03/08/2024 9:48 AM EST 03/08/2024 11:22 AM EST Gerry aBrksdale MD LAB BLOOD ORDERABLES Final Re sult [facility] [address] [place] [address], * (ABNORMAL) Complete blood count (03/08/2024 9:48 AM EST) WBC 4.6(L) 4.8 - 10.8 K/mcL LAB HEMETOLOGY METHOD 03/08/2024 12:55 PM [facility] RBC 4.20(L) 4.50 - 5.50 M/mcL LAB HEMETOLOGY METHOD 03/08/2024 12:55 PM [facility] Hemoglobin 14.5 13.5 - 17.5 g/dL LAB HEMETOLOGY METHOD 03/08/2024 12:55 PM [facility] Hematocrit 44.1 42.0 - 54.0 % LAB HEMETOLOGY METHOD 03/08/2024 12:55 PM [facility] MCV 105.3(H) 79.0 - 98.0 FL LAB HEMETOLOGY METHOD 03/08/2024 12:55 PM [facility] MCH 34.6(H) 27.0 - 32.0 pcg LAB HEMETOLOGY METHOD 03/08/2024 12:55 PM EST [facility] MCHC 32.9 32.0 - 37.0 g/dL LAB HEMETOLOGY METHOD 03/08/2024 12:55 PM [facility] RDW 14.7 11.0 - 15.0 % LAB HEMETOLOGY METHOD 03/08/2024 12:55 PM EST [facility] Platelets 102(L) 130 - 400 K/mcL LAB HEMETOLOGY METHOD 03/08/2024 12:55 PM [facility] MPV 11.3(H) 7.0 - 11.0 FL LAB HEMETOLOGY METHOD 03/08/2024 12:55 PM [facility] NRBC 0.0 <1.0 % LAB HEMETOLOGY METHOD 03/08/2024 12:55 PM [facility] NRBC Absolute 0.00 <0.10 K/mcL LAB HEMETOLOGY METHOD 03/08/2024 12:55 PM [facility] Blood Venous blood specimen / Unknown Venipuncture / Unknown 03/08/2024 9:48 AM EST 03/08/2024 11:22 AM EST us Gerry Barksdale MD LAB BLOOD ORDERABLES Final Re sult [facility] [address] [place] [address], documented in this encounter Visit Diagnoses Diagnosis Essential (primary) hypertension Unspecified essential hypertension documented in this encounter Care Teams Boat Finisher Relationship Specialty Start Date End Date Dalia Harmon PA [address] [place] [address], [address] [place] [address] PCP - General 05/10/24 documented as of this encounter
--- OUTSIDE RECORDS SUMMARY | 2024-06-29 18:09 | XMS_ITS | Encounter Summary ---
Author Organization [facility] Address [address] [place] [address] Care Team Providers Care Teaching Pastor Name Role Phone Dalia Harmon Primary Care Provider [phone] Encounter Details Date Type Department Care Team (Late st Contact Info) Description 03/04/2024 Lab Requisition [facility] - Main Lab [address] [facility] [place] [address] Gerry Barksdale MD [address] [address] Vitamin D deficiency, unspecified; Type 2 diabetes [...] EDT Appointment [facility] Interventional Radiology [address] [place] [phone] 08/12/2024 10:30 AM EDT Ancillary Procedure [facility] - [address] [place] [phone] 08/26/2024 8:30 AM EDT Office Visit Gastroenterology - [place] [address] [place] [phone] LutherHan DO [address] [place] [address] documented as of this encounter Procedures Procedure [...] D 25 hydroxy (03/04/2024 9:21 AM EST) [facility] Vit D, 25-Hydroxy 33.8 30.0 - 80.0 ng/mL LAB CHEMISTRY METHOD 03/04/2024 12:40 PM EST [facility] Blood Venous blood specimen / Unknown Venipuncture / Unknown 03/04/2024 9:21 AM EST 03/04/2024 11:40 AM EST us Gerry Barksdale MD LAB BLOOD ORDERABLES Final Re sult Performing Organization Address [facility]/ZIP Co de Phone Number [facility] [address] [place] [address], [place] [phone] * Hemoglobin A1c (03/04/2024 9:21 AM EST) [facility] Hemoglobin A1C 4.7 <6.5 % LAB CHEMISTRY METHOD 03/04/2024 2:46 PM [facility] Mean Bld Glu Estim. 88 mg/dL LAB CHEMISTRY METHOD 03/04/2024 2:46 PM [facility] Blood Venous blood specimen / Unknown Venipuncture / Unknown 03/04/2024 9:21 AM EST 03/04/2024 11:40 AM EST us Gerry Barksdale MD LAB BLOOD ORDERABLES Final Re sult Performing Organization Address [facility]/ZIP Co de Phone Number [facility] [address] [place] [address], [place] [phone] * (ABNORMAL) Vitamin B12 (03/04/2024 9:21 AM EST) [facility] Vitamin B-12 923(H) 250 - 900 pcg/mL LAB CHEMISTRY METHOD 03/04/2024 1:03 PM EST [facility] Blood Venous blood specimen / Unknown Venipuncture / Unknown 03/04/2024 9:21 AM EST 03/04/2024 11:40 AM EST us Gerry Barksdale MD LAB BLOOD ORDERABLES Final Re sult Performing Organization Address [facility]/ZIP Co de Phone Number [facility] [address] [place] [address], [place] [phone] * Folate (03/04/2024 9:21 AM EST) Pathologist [facility] Folate 11.0 2.8 - 17.0 ng/ml LAB CHEMISTRY METHOD 03/04/2024 1:03 PM EST [facility] Blood Venous blood specimen / Unknown Venipuncture / Unknown 03/04/2024 9:21 AM EST 03/04/2024 11:40 AM EST us Gerry Barksdale MD LAB BLOOD ORDERABLES Final Re sult Performing Organization Address [facility] de Phone Number [facility] [address] [place] [address], * Thyroid stimulating hormone (03/04/2024 9:21 AM EST) Pathologist [facility] TSH 3.12 0.40 - 4.00 mcIU/mL LAB CHEMISTRY METHOD 03/04/2024 12:40 PM EST [facility] Blood Venous blood specimen / Unknown Venipuncture / Unknown 03/04/2024 9:21 AM EST 03/04/2024 11:40 AM EST us Gerry Barksdale MD LAB BLOOD ORDERABLES Final Re sult Performing Organization Address City/[facility]/ZIP Co de Phone Number [facility] [address] [place] [address], [place] [phone] * (ABNORMAL) Comprehensive metabolic panel (03/04/2024 9:21 AM EST) Pathologist [facility] Sodium 137 133 - 145 mmol/L LAB CHEMISTRY METHOD 03/04/2024 1:03 PM EST [facility] Potassium 4.2 3.5 - 5.5 mmol/L LAB CHEMISTRY METHOD 03/04/2024 1:03 PM [facility] Chloride 100 96 - 110 mmol/L LAB CHEMISTRY METHOD 03/04/2024 1:03 PM [facility] CO2 29 21 - 32 mmol/L LAB CHEMISTRY METHOD 03/04/2024 1:03 PM [facility] Anion Gap 8 3 - 11 LAB CHEMISTRY METHOD 03/04/2024 1:03 PM [facility] Glucose 217(H) 70 - 100 mg/dL LAB CHEMISTRY METHOD 03/04/2024 1:03 PM [facility] BUN 18 5 - 25 mg/dL LAB CHEMISTRY METHOD 03/04/2024 1:03 PM [facility] Creatinine 0.64(L) 0.70 - 1.30 mg/dL LAB CHEMISTRY METHOD 03/04/2024 1:03 PM [facility] eGFR 104 >=60 mL/min/1. 73m2 LAB CHEMISTRY METHOD 03/04/2024 1:03 PM [facility] Comment:Calculation based on the??Chronic Kidney Disease Epidemiology Collaboration (CKD-EPI) equation refit??without adjustment for race. BUN/Creatinine Ratio 28.1 LAB CHEMISTRY METHOD 03/04/2024 1:03 PM [facility] Calcium 8.5 8.5 - 10.5 mg/dL LAB CHEMISTRY METHOD 03/04/2024 1:03 PM [facility] AST (SGOT) 38 10 - 42 unit/L LAB CHEMISTRY METHOD 03/04/2024 1:03 PM [facility] ALT (SGPT) 25 10 - 60 unit/L LAB CHEMISTRY METHOD 03/04/2024 1:03 PM [facility] Alkaline Phosphatase 136(H) 42 - 121 unit/L LAB CHEMISTRY METHOD 03/04/2024 1:03 PM [facility] Total Protein 5.7(L) 6.0 - 8.0 g/dL LAB CHEMISTRY METHOD 03/04/2024 1:03 PM [facility] Albumin 2.6(L) 3.2 - 5.0 g/dL LAB CHEMISTRY METHOD 03/04/2024 1:03 PM [facility] Total Bilirubin 2.8(H) 0.0 - 1.4 mg/dL LAB CHEMISTRY METHOD 03/04/2024 1:03 PM [facility] Blood Venous blood specimen / Unknown Venipuncture / Unknown 03/04/2024 9:21 AM EST 03/04/2024 11:40 AM EST us Gerry Barksdale MD LAB BLOOD ORDERABLES Final Re sult [facility] [address] [place] [address], * (ABNORMAL) Complete blood count (03/04/2024 9:21 AM EST) WBC 4.5(L) 4.8 - 10.8 K/mcL LAB HEMETOLOGY METHOD 03/04/2024 11:58 AM [facility] RBC 3.90(L) 4.50 - 5.50 M/mcL LAB HEMETOLOGY METHOD 03/04/2024 11:58 AM [facility] Hemoglobin 13.6 13.5 - 17.5 g/dL LAB HEMETOLOGY METHOD 03/04/2024 11:58 AM [facility] Hematocrit 40.7(L) 42.0 - 54.0 % LAB HEMETOLOGY METHOD 03/04/2024 11:58 AM [facility] MCV 104.4(H) 79.0 - 98.0 FL LAB HEMETOLOGY METHOD 03/04/2024 11:58 AM [facility] MCH 34.9(H) 27.0 - 32.0 pcg LAB HEMETOLOGY METHOD 03/04/2024 11:58 AM EST [facility] MCHC 33.4 32.0 - 37.0 g/dL LAB HEMETOLOGY METHOD 03/04/2024 11:58 AM [facility] RDW 14.3 11.0 - 15.0 % LAB HEMETOLOGY METHOD 03/04/2024 11:58 AM [facility] Platelets 101(L) 130 - 400 K/mcL LAB HEMETOLOGY METHOD 03/04/2024 11:58 AM [facility] MPV 11.0 7.0 - 11.0 FL LAB HEMETOLOGY METHOD 03/04/2024 11:58 AM [facility] NRBC 0.0 <1.0 % LAB HEMETOLOGY METHOD 03/04/2024 11:58 AM [facility] NRBC Absolute 0.00 <0.10 K/mcL LAB HEMETOLOGY METHOD 03/04/2024 11:58 AM [facility] Blood Venous blood specimen / Unknown Venipuncture / Unknown 03/04/2024 9:21 AM EST 03/04/2024 11:40 AM EST us Gerry Barksdale MD LAB BLOOD ORDERABLES Final Re sult [facility] [address] [place] [address], documented in this encounter Visit Diagnoses Diagnosis Vitamin D deficiency, unspecified Type 2 diabetes mellitus without complications (CMS/HCC) Essential (primary) hypertension Unspecified essential hypertension documented in this encounter Care Teams Teaching Pastor Relationship Specialty Start Date End Date Dalia Harmon PA [address] [place] [address] Drive, [address] [place] [address] PCP - General 05/10/24 documented as of this encounter
--- OUTSIDE RECORDS SUMMARY | 2024-06-29 18:10 | XMS_ITS | Encounter Summary ---
Author Organization [facility] Address [address] [place] [address] Care Team Providers Care Utility Aide Name Role Phone Dalia Harmon Primary Care Provider [phone] Reason for Visit * Reason Comments Blood in Urine Chronic Alex w/sheng ht red blood. Last replaced 2 days ago * Auth/Cert (Routine) Specialty Diagnoses / Procedures Referred By Aliya t Referred To Contact Diagnoses Pseudomonal bacteremia Procedures [facility] IP/OBS CARE INITIAL MODERATE LEVEL PER DAY Napoleon Neely MD [address] [place] [phone] Phone: tel: fax: [facility] Emergency [address] [place] [address] Phone: tel: Referral ID Status Reason Start Date Expiration Date Visits Re quested Visits Authorized [id number] 1 1 Encounter Details Date Type Department Care Team (Late st Contact Info) Description 06/13/2024 12:02 PM EST - 06/16/2024 2:30 PM EST Hospital Encounter [facility] Medical Surgical Unit [address] [place] [address] Barak Benjamin MD [address] [place] [address] Napoleon Neely MD [address] [place] [phone] Liang Uribe MD [address] [place] [address] Deborah Barahona MD [address] [place] [address] Bacteremia (Primary Dx); Alex catheter in place; Urinary tract infection associated with indwelling urethral catheter, initial encounter ([facility]); Hx of ascites; Anasarca Discharge Disposition: Home-Health [...] Entry Date Author No 06/14/2024 1:37 PM Ynui Oneill RN documented in this encounter Discharge Summaries * Deborah Barahona MD - 06/16/2024 1:07 PM EST Images from the original note were not included. [place] DISCHARGE SUMMARY Patient Information Jonny Gordon : [...] urine output In the ED here at [facility] patient had Alex catheter changed. At that time patient had CBI x 2 and states his urine cleared [...] Patient follows with urology, Dr. Simon at [facility] He also follows with Dr. Sloan [...] indeterminate. Could be infectious, inflammatory or neoplastic. Rxlxy-gk-rilbodlo size left pleural effusion and trace right pleural effusion with mild subjacent atelectasis. Cardiomegaly. Mildly dilated main pulmonary artery indicating pulmonary arterial hypertension. Hepatic cirrhosis with ascites and splenomegaly. CT Abd/Pelvis w Contrast - Cirrhotic liver with portal hypertension including fefqkwlm-ij-nigih volume ascites, splenomegaly and varices. No apparent [...] daily -Patient follows up with urology at [facility] however he is not happy with his [...] Signed Date: 06/15/2024 12:40 ET Workstation ID: [id number] Transcribed By: Self Edit Transcribed Date: 06/14/2024 11:29 ET Resident/PA/CLINICAL CARE COORDINATOR: Milady Chilel Lab Results Component Value Date [...] Signed Date: 06/15/2024 12:40 ET Workstation ID: [id number] Transcribed By: Self Edit Transcribed Date: 06/14/2024 11:29 ET Resident/PA/CLINICAL CARE COORDINATOR: Milady Chilel Follow-Up Instructions and Recommendations [facility] [address] [place] [phone] More than 30 minutes spent on [...] mouth at bedtime as needed. for insomnia ciprofloxacin (CIPRO) 500 mg tablet Take 1.5 tablets (750 mg total) by mouth 2 (two) times a day for 10 days. 30 each 06/16/2024 documented as of this encounter Ordered Prescriptions [...] Barahona MD - 06/16/2024 2:30 PM EST [facility] Provider Response Note PATIENT: JONNY GORDON : 1960 ADMIT DATE: 06/13/2024 2:04 PM DISCH DATE: 06/16/2024 2:30 PM RESPONDING PROVIDER #: [id number] PROVIDER RESPONSE TEXT: The patient has secondary [...] is on Eliquis for hemochromatosis per EMR. termite helper use of anticoagulant in the form of [...] Patient to take full course of antibiotics. [place] driving patient home. to cloth picker medication from pharmacy on the way home. [...] Discharge Needs Discipline following for SNF placement Fruit Sorter Informed Choice Informed Choice Given? Yes Transportation Transportation at discharge [facility] providing transportation [place] What day is the transport expected? 06/16/24 What time is the transport expected? 1430 Final Discharge Disposition Home Health Care Services Patient discharging home via ambulance with 47 hours of SR. OPERATIONS MANAGER services and [facility], at bedside and aware * Stephany Cifuentes PT - 06/16/2024 12:30 PM EST Patient: Jonny Gordon Age: 64 y.o. Sex: male Pseudomonal bacteremia [facility] Physical Therapy Treatment Ambulation: Walking Assistance: Contact guard Device: Rolling walker Distance Ambulated (ft): 10 PLOF: Level of Scotts: Independent with mobility and functional transfers Lives With: Alone Receives Help From: virginia line attendant (47HRS/WK) Type of Home: House Home [...] to dc home with 47 +hours of SR. OPERATIONS MANAGER care, . and recommending home PT services [...] assistance of person or device 06/16/2024436 by Ssii Hernandez RN Outcome: Progressing 06/16/2024436 by Sisi [...] Uribe MD - 06/16/2024 12:38 AM EST [facility] Provider Response Note PATIENT: JONNY GORDON : 1960 ADMIT DATE: 06/13/2024 2:04 PM DISCH DATE: RESPONDING PROVIDER #: [id number] PROVIDER RESPONSE TEXT: The two conditions are due to or associated. QUERY TEXT: Please clarify in documentation the relationship, if any, between Complicated UTI with Pseudomonas and chronic indwelling Alex catheter since February presents. Such as: H&P 06/13/2024 (1) HPI: In the ED here at [facility] patient had Alex catheter changed... [...] urine output In the ED here at [facility] patient had Alex catheter changed. [...] Patient follows with urology, Dr. Simon at [facility] He also follows with Dr. Sloan [...] LIANG URIBE MD 06/16/2024 12:37 AM * Liang Uribe MD - 06/15/2024 4:15 PM EST Images from the original note were not included. [place] PROGRESS NOTE Date: 06/16/2024 Author: Liang Uribe MD Patient ID: Jonny Gordon is a 64 y.o. male : 1960 MR#: [id number] SUBJECTIVE Subjective Patient seen and examined bedside this morning. No new complaints and no significant overnight events. Sister present as well. Per GI request echo ordered as part of TIPSS workup. Objective Allergy- Codeine, Nystatin, and Semaglutide OBJECTIVE Vitals: 06/15/24 0753 06/15/24 2037 06/16/24 0323 06/16/24 0722 BP: 122/63 122/61 121/60 115/66 BP Location: Left arm Right arm Right arm Patient Position: Lying Lying Lying Pulse: 82 89 87 99 Resp: 17 16 18 Temp: 36.1 ??C (96.9 ??F) 36.9 ??C (98.5 ??F) 36.7 ??C (98.1 ??F) 36.5 ??C (97.7 ??F) TempSrc: Temporal Temporal Oral SpO2: 98% 94% 95% 94% Weight: Height: Temp (24hrs), Av.7 ??C (98.1 ??F), Min:36.5 ??C (97.7 ??F), Max:36.9 ??C (98.5 ??F) Physical Exam General-patient appears comfortable, no acute distress, obese HEENT-NCAT Eyes-anicteric Cardiology-no significant murmur appreciated Respiratory-no significant wheezing appreciated abdomen-nontender nondistended Extremity-mild bilateral lower extremity edema with some erythema probably with underlying lymphedema Neurology-awake alert oriented to time place and person Skin-warm and dry Lab Results: CBC BMP Results from last 7 days Lab Units 06/15/24 0638 06/14/24 0514 06/13/24 1237 06/11/24 2314 WBC AUTO K/mcL 4.1* 4.5* 6.9 5.0 HEMOGLOBIN g/dL 11.9* 11.6* 11.0* 12.5* HEMATOCRIT % 35.3* 35.2* 32.8* 38.0* PLATELETS K/mcL 81* 77* 74* 85* LYMPHS PCT AUTO % -- 13.9 5.5 4.4 MONO PCT AUTO % -- 9.7 6.4 1.4 EOS PCT AUTO % -- 0.4 0.1 0.0 Results from last 7 days Lab Units 06/15/24 0638 06/14/24 0514 06/13/24 1237 06/11/24 2314 SODIUM mmol/L 134 133 133 138 POTASSIUM mmol/L 4.2 3.8 4.0 4.4 CHLORIDE mmol/L 100 99 102 102 CO2 mmol/L 30 31 26 26 ANION GAP 4 3 5 10 BUN mg/dL 11 13 13 12 CREATININE mg/dL 0.48* 0.56* 0.65* 0.80 CALCIUM mg/dL 8.2* 8.2* 8.2* 8.7 MAGNESIUM mg/dL 1.9 1.9 -- -- PHOSPHORUS mg/dL 3.0 -- -- -- Results from last 7 days Lab Units 06/15/24 0638 06/14/24 0514 06/13/24 1237 06/11/24 2314 GLUCOSE mg/dL 115* 131* 178* 139* Results from last 7 days Lab Units 06/13/24 1237 AST unit/L 32 ALT unit/L 20 Scheduled Medications PRN Medications IV Medications apixaban, 5 mg, BID atorvastatin, 20 mg, Nightly cefepime, 2 g, [...] FQ vs continue cefepime on dc. 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 Continue Alex care Chronic pain Opiate dependence - Oxycodone 10 mg every 4 hours as needed NICOLE Morbid obesity - CPAP at night Hemochromatosis - Holding Eliquis 5 mg twice daily for now pending hematuria clearance Insomnia - Ambien 10 mg at bedtime as needed History of DVT-recent history of nonocclusive DVT. Will resume Eliquis home dose Case was discussed with sister present bedside. FULL CODE All labs, imaging, relevant history personally reviewed by me. This dictation was performed using voice recognition software. Word substitution may have occurred and may have gone unnoticed and uncorrected. Reach out to our office for any errors or questions. * Flor Blair MD - 06/15/2024 11:01 [...] Signed By: Signed Date: ET Workstation ID: [id number] Transcribed By: Self Edit Transcribed Date: 06/14/2024 11:29 ET Resident/PA/CLINICAL CARE COORDINATOR: Milady Chilel CT Abdomen Pelvis w Contrast [...] Impression: Cirrhotic liver with portal hypertension including srglxkic-dg-wvdfp volumeascites, splenomegaly and varices. No apparent bowel [...] contour and moderate volume of ascites. Splenomegaly. Puukr-sq-jcknlbcm size left pleural effusion and trace right [...] recommended in 3 months to assess stability. Wvttu-zp-yuruoeeo size left pleural effusion and trace right [...] Signed Date: 05/21/2024 09:23 ET Workstation ID: [id number] Transcribed By: Self Edit Transcribed Date:05/21/2024 09:22 [...] Signed Date: 05/20/2024 08:06 ET Workstation ID: [id number] Transcribed By: Self Edit Transcribed Date: 05/20/2024 [...] bloodC/S. The pt was recently discharged from [facility] on 05/25 for UI. He then ended [...] and BMP and faxto my office at [phone] Recommend Urology consult, the pt has had [...] Age: 64 y.o. Sex: male Pseudomonal bacteremia [facility] Physical Therapy Evaluation PLOF: Level of Scotts: Independent with mobility and functional transfers Lives With: Alone Receives Help From: virginia line attendant (47HRS/WK) Type of Home: House Home Adaptive Equipment: Walker - rolling, Wheelchair-manual, Bariatric equipment, Tub seat with back, Bedside commode, Other (Comment) (stair chair) Home Layout: One level Home Access: Stairs to enter with rails DME Needs: PT Discharge Recommendation: [facility] facility placement, (however pt would like to return home and has 47 hours of electric vehicle electrician care. Reason for current recommendation based on [...] COLONOSCOPY N/A PROCEDURE: HISTORICAL COLONOSCOPY ESOPHAGOGASTRODUODENOSCOPY PROCEDURE: ND ESOPHAGOGASTRODUODENOSCOPY TRANSORAL DIAGNOSTIC OTHER SURGICAL HISTORY Right PROCEDURE: ND STAB PHLEBT VARICOSE VEINS 1 XTR > [...] of Steps 1 Prior Function Level of Scotts Independent with mobility and functional transfers Ambulation Status Household ambulator Receives Help From virginia line attendant (47HRS/WK) Indoor Mobility Assistance Needed Some [...] 2-5 days per week PT Discharge Recommendations [facility] facility placement PT - Evaluation Status Complete [...] 2-5 days per week PT Discharge Recommendations: [facility] facility placement Encounter Problems Encounter Problems (Active) [...] Verbalizes Understanding Comment: discussed POC while at [facility] Mobility Training, taught by Stephany Cifuentes PT at 06/15/2024 12:17 PM. Learner: Patient Readiness: Acceptance Method: Explanation Response: Verbalizes Understanding Comment: discussed POC while at [facility] Education Comments No comments found. Stephany Cifuentes [...] from the original note were not included. [place] PROGRESS NOTE Date: 06/14/2024 Author: iLang Uribe MD Patient ID: Jonny Gordon is a 64 y.o. male : 1960 MR#: [id number] SUBJECTIVE Subjective Patient seen and examined bedside [...] Sitting Pulse: 78 87 86 87 Resp: 12 15 17 18 Temp: 36.6 ??C (97.9 ??F) 36.3 ??C [...] days Lab Units 06/14/2451306/13/24 1237 06/11/24 2314 WBC AUTO K/mcL 4.5* 6.9 5.0 HEMOGLOBIN g/dL 11.6* 11.0* 12.5* HEMATOCRIT % 35.2* 32.8* 38.0* PLATELETS K/mcL 77* 74* 85* LYMPHS PCT AUTO % 13.9 5.5 4.4 MONO PCT AUTO % 9.7 6.4 1.4 EOS PCT AUTO % 0.4 0.1 0.0 Results from last 7 days Lab Units 06/14/24 0506/13/24 1237 06/11/24 2314 SODIUM mmol/L 133 133 [...] daily -Patient follows up with urology at [facility] however he is not happy with his [...] infectious concerns): [] Yes / [x] No Pharmacy Grad Intern: [] Yes / [x] No If YES, Cardiac Rhythm: [x] NSR, [] SB, [] ST, [] A-FIB, [] A-Flutter, [] Pacemaker, [] 1st Degree HB, [] 2nd Degree HB, [] 3rd Degree HB Reason for Pharmacy Grad Intern: VS: Visit Vitals BP 121/70 (BP Location: [...] PINK URINE Submitted by and Phone Extension: [phone] RN * Stephany Cifuentes PT - 06/14/2024 [...] infectious concerns): [] Yes / [x] No Pharmacy Grad Intern: [x] Yes / [] No If YES, Cardiac Rhythm: [x] NSR, [] SB, [] ST, [] A-FIB, [] A-Flutter, [] Pacemaker, [] 1st Degree HB, [] 2nd Degree HB, [] 3rd Degree HB Reason for Pharmacy Grad Intern: VS: Visit Vitals BP (!) 107/47 Pulse [...] #, Relationship) for DC Planning Elinor Cortez [phone] or sister Denver [phone] Living Arrangements Alone (has SR. OPERATIONS MANAGER 47 hours per week) Type of Residence Private residence (Duplex, has stair chair to bedroom upstairs) Assistive Devices Walker;Wheelchair Support Systems Immediate family;Other (Comment) (SR. OPERATIONS MANAGER) Medication Coverage Has Med Coverage Under Insurance [...] few steps with a walker. Patient has SR. OPERATIONS MANAGER services 47 hours per week, 37 hours Mon-Fri and 10 hours Sat/Sun. Patient's SR. OPERATIONS MANAGER Elinor in his HCP. Patient reports that he was recenly at [facility]. At this time patient declines SNF referrals. Patient is active with [facility]. Patient will need ambulance upon d/c home. Barrier to d/c: + blood cx, hematuria via alex, IV abx Dispo: home with [facility] and SR. OPERATIONS MANAGER (has SR. OPERATIONS MANAGER 37 hours Mon-Fri and 10 hours Sat/Sun). Was recently at [facility], patient declines SNF placement. Will need ambulance upon d/c * Mirta Menon RN - 06/13/2024 12:03 PM EST Patient BIBA for bright red blood noted this morning in chronic alex cath for hx hematochromotosis. Last alex change 2 days ago. Denies pain and catheter draining normally. Reports taking blood thinners. States he was called by someone at [facility] for abnormal labs and told to come [...] N/A PROCEDURE: HISTORICAL COLONOSCOPY ??? ESOPHAGOGASTRODUODENOSCOPY PROCEDURE: ND ESOPHAGOGASTRODUODENOSCOPY TRANSORAL DIAGNOSTIC ??? OTHER SURGICAL HISTORY Right PROCEDURE: ND STAB PHLEBT VARICOSE VEINS 1 XTR > [...] Procedure Abnormality Status --------- ------ CBC auto differential[[id number]] Please view results for these tests on [...] associated with indwelling urethral catheter, initial encounter ([facility]) Procedures @PROCEDURENOTES@ Diagnosis 1. Bacteremia 2. Alex catheter in place Disposition Admit to Inpatient ED Prescriptions None Physician Attestation Barak Benjamin MD 06/13/24 1224 Barak Benjamin MD 06/13/24 1512 documented in this encounter H&P Notes * GIORGI Drake - 06/13/2024 3:17 PM EST Images from the original note were not included. [place] HISTORY AND PHYSICAL Please contact author [GIORGI Calvillo] via [employer]. Patient: Jonny Gordon Admission Date/Time: 06/13/2024 12:02 [...] urine output In the ED here at [facility] patient had Alex catheter changed. [...] Patient follows with urology, Dr. Simon at [facility] He also follows with Dr. Sloan [...] indeterminate. Could be infectious, inflammatory or neoplastic. Wacou-vc-wjdoaqyr size left pleural effusion and trace right pleural effusion with mild subjacent atelectasis. Cardiomegaly. Mildly dilated main pulmonary artery indicating pulmonary arterial hypertension. Hepatic cirrhosis with ascites and splenomegaly. CT Abd/Pelvis w Contrast - Cirrhotic liver with portal hypertension including gqfsoiag-ya-qvicf volume ascites, splenomegaly and varices. No apparent [...] CT Angio Chest wo and/or w Contrast [[id number]] Collected: 06/12/24 0643 Order Status: Completed Updated: [...] contour and moderate volume of ascites. Splenomegaly. Dhjlw-io-gitxejxp size left pleural effusion and trace right [...] recommended in 3 months to assess stability. Jciqd-po-ckbtmjxr size left pleural effusion and trace right pleural effusion with mild subjacent atelectasis. Cardiomegaly. Mildly dilated main pulmonary artery indicating pulmonary arterial hypertension. Hepatic cirrhosis with ascites and splenomegaly. Please see CT abdomen/pelvis report for additionaldetails. No evidence for pulmonary artery embolus. This document has been electronically signed by: Hernan Godwin MD on 06/12/2024 06:43:23 CT Abdomen Pelvis w Contrast [[id number]] Collected: 06/12/24 0706 Order Status: Completed Updated: 06/12/24706 Narrative: INDICATION: pain, hematuria CT abdomen and [...] Impression: Cirrhotic liver with portal hypertension including qhtrkdux-ml-saqne volume ascites, splenomegaly and varices. No apparent [...] as needed FULL CODE HCP: hollie Aldrich [phone] PPX: Pneumoboots Case and plan discussed with: [...] bloodC/S. The pt was recently discharged from [facility] on 05/25 for UI. He then ended [...] COLONOSCOPY N/A PROCEDURE: HISTORICAL COLONOSCOPY ESOPHAGOGASTRODUODENOSCOPY PROCEDURE: ND ESOPHAGOGASTRODUODENOSCOPY TRANSORAL DIAGNOSTIC OTHER SURGICAL HISTORY Right PROCEDURE: ND STAB PHLEBT VARICOSE VEINS 1 XTR > [...] each (4 mg total) into affected nostril(s). 10/16/23 Historical Provider, oxyCODONE (OXY-IR) 5 mg immediate [...] oral, Nightly, GIORGI Drake, 20 mg at 06/13/243 cefepime (MAXIPIME) 2 g in sterile water [...] hours: Temp: 36.6 ??C (97.9 ??F) (06/14 1017) Heart Rate: 86 (06/14 1017) Resp: 17 (06/14 1017) BP: 121/70 (06/14 1017) Intake/Output this shift: No intake/output data recorded. [...] Signed By: Signed Date: ET Workstation ID: [id number] Transcribed By: Self Edit Transcribed Date: 06/14/2024 11:29 ET Resident/PA/CLINICAL CARE COORDINATOR: Milady Chilel Assessment/Plan Jonny Gordon is a [...] bloodC/S. The pt was recently discharged from [facility] on 05/25 for UI. He then ended [...] Info) Description 07/06/2024 1:00 PM EDT Appointment [facility] Interventional Radiology [address] [place] [address] 08/12/2024 10:30 AM EDT Ancillary Procedure [facility] [address] [place] [address] 08/26/2024 8:30 AM EDT Office Visit Gastroenterology - [place] [address] [facility] [address] [place] [id number] Han Sloan DO [address] [place] [address] Pending Results Name Type Priority Associated Diagnoses [...] (06/15/2024 2:35 PM EST) Left Atrium Major [place] 5.9 cm CV PACS LA Area Sys [...] ECG 12 lead (06/15/2024 12:53 PM EST) Ventricular Rate ECG 85 BPM GEMUSE Atrial Rate 85 BPM GEMUSE P-R Interval 126 ms GEMUSE QRS Duration 130 ms GEMUSE Q-T Interval 408 ms GEMUSE QTc 485 ms GEMUSE P Wave Hung[place] 28 degrees GEMUSE R Hung[place] -36 degrees GEMUSE T [place] 29 degrees GEMUSE ECG Interpretation Normal sinus rhythm Left axis deviation Right bundle branch block Abnormal ECG When compared with ECG of 12-JUN-2024 03:57, No significant change was found Confirmed by MD Washington Christopher ([id number]) on 06/15/2024 5:37:07 PM GEMUSE 06/15/2024 12:5 3 PM EST 06/15/2024 5:37 PM EST us Liang Uribe MD ECG ORDERABLES Fin al Result GEMUSE * Magnesium (06/15/2024 6:38 AM EST) Pathologist [facility] Magnesium 1.9 1.9 - 2.6 mg/dL LAB CHEMISTRY METHOD 06/15/2024 7:50 AM EST [facility] Blood Venous blood specimen / Unknown Venipuncture / Unknown 06/15/2024 6:38 AM EST 06/15/2024 7:06 AM EST Liang Uribe MD LAB BLOOD ORDERABLE S Final Result Performing Organization Address City/[facility]/ZIP Co de Phone Number [facility] [address] [place] [address], [place] [phone] * (ABNORMAL) Basic metabolic panel (06/15/2024 6:38 AM EST) Sodium 134 133 - 145 mmol/L LAB CHEMISTRY METHOD 06/15/2024 7:50 AM EST [facility] Potassium 4.2 3.5 - 5.5 mmol/L LAB CHEMISTRY METHOD 06/15/2024 7:50 AM EST [facility] Chloride 100 96 - 110 mmol/L LAB CHEMISTRY METHOD 06/15/2024 7:50 AM EST [facility] CO2 30 21 - [...] MD LAB BLOOD ORDERABLE S Final Result [facility] [address] [place] [address], * (ABNORMAL) Complete blood count (06/15/2024 6:38 AM EST) WBC 4.1(L) 4.8 - 10.8 K/mcL LAB [...] 7:42 AM [facility] NRBC Absolute 0.00 <0.10 K/mcL LAB HEMETOLOGY METHOD 06/15/2024 7:42 AM [facility] Blood Venous blood specimen / Unknown Venipuncture / Unknown 06/15/2024 6:38 AM EST 06/15/2024 7:06 AM EST us Liang Uribe MD LAB BLOOD ORDERABLE S Final Result Performing Organization Address [facility]/ZIP Co de Phone Number [facility] [address] [place] [address], [place] [phone] * Phosphorus (06/15/2024 6:38 AM EST) Phosphorus 3.0 2.5 - 4.5 mg/dL LAB CHEMISTRY METHOD 06/15/2024 7:50 AM EST [facility] Blood Venous blood specimen / Unknown Venipuncture / Unknown 06/15/2024 6:38 AM EST 06/15/2024 7:06 AM EST us Liang Uribe MD LAB BLOOD ORDERABLE S Final Result Performing Organization Address City/[facility]/ZIP Co de Phone Number [facility] [address] [place] [address], [place] [phone] * Differential body fluid (06/14/2024 10:19 AM EST) [facility] Signature Fluid Neutrophils % 4 % 06/14/2024 11:38 AM EST [facility] Fluid Lymphocytes % 74 % 06/14/2024 11:38 AM EST [facility] Fluid Monocytes/Macrop hages 22 % 06/14/2024 11:38 AM EST [facility] Fluid Eosinophils % 0 % 06/14/2024 11:38 AM EST [facility] Fluid Basophils % 0 % 06/14/2024 11:38 AM EST [facility] Fluid Other Cells % 0 % 06/14/2024 11:38 AM EST [facility] Peritoneal Fluid Peritoneal cavity structure / Unknown Non-blood Collection / Unknown 06/14/2024 10:19 AM EST 06/14/2024 10:27 AM EST Narrative [facility] - 06/14/2024 11:38 AM EST No reference ranges have been established for body fluids. Clinical correlation recommended. us Cristiana RAND LAB BODY FLUIDS AND STO OLS ORDERABLES Final Result Performing Organization Address [facility]/ZIP Co de Phone Number [facility] [address] [place] [address], [place] [phone] * Cell count with reflex differential, body fluid (06/14/2024 10:19 AM EST) Body Fluid Total Nucleated Cells 218 /mm3 LAB HEMETOLOGY METHOD 06/14/2024 11:38 AM EST [facility] Body Fluid RBC 1,000 /mm3 LAB HEMETOLOGY METHOD 06/14/2024 11:38 AM EST [facility] Body Fluid Color Yellow 06/14/2024 11:38 AM [facility] Body Fluid Clarity Clear 06/14/2024 11:38 AM EST [facility] Body Fluid Source Peritoneal 06/14/2024 [...] OLS ORDERABLES Final Result Performing Organization Address City/[facility]/ZIP Co de Phone Number [facility] [address] [place] [address], [place] [phone] * Non-gynecologic cytology (06/14/2024 10:19 AM EST) Final Diagnosis A. Peritoneal fluid, paracentesis, (ThinPrep, cell block): Negative for malignant cells. 06/17/2024 4:30 PM EST [facility] Specimen A Adequacy Satisfactory for evaluation 06/17/2024 4:30 PM EST [facility] Gross Description A. Peritoneal Cavity, : Received 115 ml of yellow fluid; 1 ThinPrep, 1 Cell block Cell block in formalin @1500; total formalin fixation time 6 hours. 06/17/2024 4:30 PM [facility] Disclaimer Unless otherwise specified, all tissue is 10% NB formalin fixed and paraffin embedded. Technical cytopathology services provided by [facility], at [address] [place] [address] (CLIA # [id number]/Katya Lo MD, Head Filter Press Tender.) 06/17/2024 4:30 PM EST [facility] Peritoneal Fluid Peritoneal cavity structure / Unknown Non-blood Collection / Unknown 06/14/2024 10:19 AM EST 06/14/2024 2:30 PM EST us Cristiana RAND LAB CYTOLOGY ORDERABLES Final Result [facility] [address] [place] [address], * Specific gravity, body fluid (06/14/2024 10:19 AM EST) Spec Grav, Fluid 1.014 06/14/2024 11:01 AM EST [facility] Peritoneal Fluid Non-blood Collection / Unknown 06/14/2024 10:19 AM EST 06/14/2024 10:26 AM EST Narrative [facility] - 06/14/2024 11:01 AM EST No reference ranges have been established for body fluids. Clinical correlation recommended. Cristiana RAND LAB BODY FLUIDS AND STO OLS ORDERABLES Final Result Performing Organization Address [facility]/ZIP Co de Phone Number [facility] [address] [place] [address], [place] [phone] * Amylase, body fluid (06/14/2024 10:19 AM EST) Amylase, Fluid 24 See Comment unit/L LAB CHEMISTRY METHOD 06/14/2024 11:19 AM EST [facility] Peritoneal Fluid Non-blood Collection / Unknown 06/14/2024 10:19 AM EST 06/14/2024 10:26 AM EST [facility] - 06/14/2024 11:19 AM EST No reference ranges have been established for body fluids. Clinical correlation recommended. Cristiana RAND LAB BODY FLUIDS AND STO OLS ORDERABLES Final Result Performing Organization Address [facility] Co de Phone Number [facility] [address] [place] [address], [place] [phone] * Glucose, body fluid (06/14/2024 10:19 AM EST) Glucose, Fluid 150 See Comment mg/dL LAB CHEMISTRY METHOD 06/14/2024 11:28 AM EST [facility] Ascites 06/14/2024 10:1 9 AM EST 06/14/2024 10:26 AM EST [facility] - 06/14/2024 11:28 AM EST No reference ranges have been established for body fluids. Clinical correlation recommended. Cristiana RAND LAB BODY FLUIDS AND STO OLS ORDERABLES Final Result Performing Organization Address City/[facility]/ZIP Co de Phone Number [facility] [address] [place] [address], [place] [phone] * Lactate dehydrogenase, body fluid (06/14/2024 10:19 AM EST) LD, Fluid 78 See Comment unit/L LAB CHEMISTRY METHOD 06/14/2024 11:42 AM EST [facility] Peritoneal Fluid Peritoneal cavity structure / Unknown Non-blood Collection / Unknown 06/14/2024 10:19 AM EST 06/14/2024 10:27 AM EST [facility] - 06/14/2024 11:42 AM EST No reference ranges have been established for body fluids. Clinical correlation recommended. us Cristiana RAND LAB BODY FLUIDS AND STO OLS ORDERABLES Final Result Performing Organization Address [facility]/ZIP Co de Phone Number [facility] [address] [place] [address], [place] [phone] * Protein, body fluid (06/14/2024 10:19 AM EST) Protein, Fluid 1.4 See Comment g/dL LAB CHEMISTRY METHOD 06/14/2024 11:19 AM EST [facility] Peritoneal Fluid Non-blood Collection / Unknown 06/14/2024 10:19 AM EST 06/14/2024 10:26 AM EST [facility] - 06/14/2024 11:19 AM EST No reference ranges have been established for body fluids. Clinical correlation recommended. us Cristiana RAND LAB BODY FLUIDS AND STO OLS ORDERABLES Final Result Performing Organization Address [facility]/ZIP Co de Phone Number [facility] [address] [place] [address], [place] [phone] * Albumin, body fluid (06/14/2024 10:19 AM EST) Albumin, Fluid 0.6 See Comment g/dL LAB CHEMISTRY METHOD 06/14/2024 11:19 AM EST [facility] Peritoneal Fluid Non-blood Collection / Unknown 06/14/2024 10:19 AM EST 06/14/2024 10:26 AM EST Narrative [facility] - 06/14/2024 11:19 AM EST No reference ranges have been established for body fluids. Clinical correlation recommended. Cristiana RAND LAB BODY FLUIDS AND STO OLS ORDERABLES Final Result Performing Organization Address [facility]/ZIP Co de Phone Number [facility] [address] [place] [address], [place] [phone] * Culture body fluid with gram stain (06/14/2024 10:19 AM EST) Fluid Culture No growth at 3 days LAB MICROBIOLOGY METHOD 06/17/2024 11:25 AM EST [facility] Gram Stain Result No polymorphonuclear leukocytes, No epithelial cells, and No organisms noted 06/17/2024 11:25 AM EST [facility] Peritoneal Fluid Peritoneal cavity structure / Unknown Non-blood Collection / Unknown 06/14/2024 10:19 AM EST 06/14/2024 10:26 AM EST Cristiana RAND LAB MICROBIOLOGY - GENE RAL ORDERABLES Final Result Performing Organization Address [facility]/ZIP Co de Phone Number [facility] [address] [place] [address], [place] [phone] * [place] Paracentesis w Image Guidance (06/14/2024 [...] Signed Date: 06/15/2024 12:40 ET Workstation ID: [id number] Transcribed By: Self Edit Transcribed Date: 06/14/2024 11:29 ET Resident/PA/CLINICAL CARE COORDINATOR: Milady Chilel Narrative 06/15/2024 12:40 PM EST [...] Signed Date: 06/15/2024 12:40 ET Workstation ID: [id number] Transcribed By: Self Edit Transcribed Date: 06/14/2024 11:29 ET Resident/PA/CLINICAL CARE COORDINATOR: Milady Chilel Cristiana RAND IMG US PROCEDURES Final Result * Lactate, with reflex (06/14/2024 5:26 AM EST) [facility] LACTIC ACID 1.6 0.4 - 2.0 mmol/L LAB CHEMISTRY METHOD 06/14/2024 6:03 AM EST [facility] Blood Venous blood specimen / Unknown Venipuncture / Unknown 06/14/2024 5:26 AM EST 06/14/2024 5:33 AM EST Napoleon Neely MD LAB BLOOD ORDERABLES Final Re sult Performing Organization Address [facility]/ZIP Co de Phone Number [facility] [address] [place] [address], [place] [phone] * Culture blood (06/14/2024 5:22 AM EST) [facility] Culture, Blood No growth at 5 days 06/19/2024 6:01 AM EST [facility] Blood Venous blood specimen / Unknown Venipuncture / Unknown 06/14/2024 5:22 AM EST 06/14/2024 5:33 AM EST us Napoleon Neely MD LAB MICROBIOLOGY - GENERAL OR DERABLES Final Result Performing Organization Address [facility]/ZIP Co de Phone Number [facility] [address] [place] [address], [place] [phone] * (ABNORMAL) CBC auto differential (06/14/2024 5:14 AM EST) [facility] WBC 4.5(L) 4.8 - 10.8 K/mcL LAB [...] AM [facility] Immature Granulocytes Absolute 0.01 0.00 - 0.03 K/mcL LAB HEMETOLOGY METHOD 06/14/2024 6:00 AM [facility] Blood Venous blood specimen / Unknown Venipuncture / Unknown 06/14/2024 5:14 AM EST 06/14/2024 5:34 AM EST us Napoleon Neely MD LAB BLOOD ORDERABLES Final Re sult [facility] [address] [place] [address], [place] [phone] * Magnesium (06/14/2024 5:14 AM EST) [facility] Magnesium 1.9 1.9 - 2.6 mg/dL LAB CHEMISTRY METHOD 06/14/2024 5:57 AM EST [facility] Blood Venous blood specimen / Unknown Venipuncture / Unknown 06/14/2024 5:14 AM EST 06/14/2024 5:34 AM EST us Napoleon Neely MD LAB BLOOD ORDERABLES Final Re sult [facility] [address] [place] [address], [place] [phone] * (ABNORMAL) Basic metabolic panel (06/14/2024 5:14 AM EST) [facility] Sodium 133 133 - 145 mmol/L LAB CHEMISTRY METHOD 06/14/2024 5:57 AM [facility] Potassium 3.8 3.5 - 5.5 mmol/L LAB CHEMISTRY METHOD 06/14/2024 5:57 AM [facility] Chloride 99 96 - 110 mmol/L LAB CHEMISTRY METHOD 06/14/2024 5:57 AM EST [facility] CO2 31 21 - [...] LAB CHEMISTRY METHOD 06/14/2024 5:57 AM EST [facility] Blood Venous blood specimen / Unknown Venipuncture / Unknown 06/14/2024 5:14 AM EST 06/14/2024 5:34 AM EST us Napoleon Neely MD LAB BLOOD ORDERABLES Final Re sult Performing Organization Address City/[facility]/ZIP Co de Phone Number [facility] [address] [place] [address], * Culture blood (06/14/2024 5:14 AM EST) Culture, Blood No growth at 5 days 06/19/2024 6:01 AM EST [facility] Blood Venous blood specimen / Unknown Venipuncture / Unknown 06/14/2024 5:14 AM EST 06/14/2024 5:33 AM EST us Napoleon Neely MD LAB MICROBIOLOGY - GENERAL OR DERABLES Final Result [facility] [address] [place] [address], * (ABNORMAL) Lactate, with reflex (06/13/2024 3:34 PM EST) [facility] LACTIC ACID 2.6(H) 0.4 - 2.0 mmol/L LAB CHEMISTRY METHOD 06/13/2024 4:40 PM EST [facility] Blood Venous blood specimen / Unknown Venipuncture / Unknown 06/13/2024 3:34 PM EST 06/13/2024 4:07 PM EST Barak Benjamin MD LAB BLOOD ORDERABLES Berenice l Result Performing Organization Address [facility]/ZIP Co de Phone Number [facility] [address] [place] [address], * Prostate specific antigen screen (06/13/2024 12:37 PM EST) [facility] PSA 0.18 0.00 - 4.00 ng/mL LAB CHEMISTRY METHOD 06/13/2024 2:31 PM EST [facility] Blood Venous blood specimen / Unknown Venipuncture / Unknown 06/13/2024 12:37 PM EST 06/13/2024 12:55 PM EST Narrative [facility] - 06/13/2024 2:31 PM EST The Siemens Advia Centaur Chemiluminescent Immunoassay is used. Results obtained with different assay methods or kits cannot be used interchangeably. Results cannot be interpreted as absolute evidence of the presence or absence of malignant disease. Napoleon Neely MD LAB BLOOD ORDERABLES Final Re sult [facility] [address] [place] [address], * (ABNORMAL) Hepatic function panel (06/13/2024 12:37 PM EST) [facility] Total Protein 5.9(L) 6.0 - 8.0 g/dL LAB CHEMISTRY METHOD 06/13/2024 2:25 PM EST [facility] Albumin 2.3(L) 3.2 - 5.0 g/dL LAB CHEMISTRY METHOD 06/13/2024 2:25 PM [facility] Total Bilirubin 2.6(H) 0.0 - 1.4 mg/dL LAB CHEMISTRY METHOD 06/13/2024 2:25 PM [facility] Bilirubin, Direct 1.4(H) 0.0 - 0.3 mg/dL LAB CHEMISTRY METHOD 06/13/2024 2:25 PM [facility] Bilirubin, Indirect 1.2(H) 0.0 - 1.1 mg/dL LAB CHEMISTRY METHOD 06/13/2024 2:25 PM [facility] ALT (SGPT) 20 10 - 60 unit/L LAB CHEMISTRY METHOD 06/13/2024 2:25 PM [facility] AST (SGOT) 32 10 - 42 unit/L LAB CHEMISTRY METHOD 06/13/2024 2:25 PM [facility] Alkaline Phosphatase 133(H) 42 - 121 unit/L LAB CHEMISTRY METHOD 06/13/2024 2:25 PM [facility] Blood Venous blood specimen / Unknown Venipuncture / Unknown 06/13/2024 12:37 PM EST 06/13/2024 12:55 PM EST us Napoleon Neely MD LAB BLOOD ORDERABLES Final Re sult [facility] [address] [place] [address], * (ABNORMAL) C-reactive protein (06/13/2024 12:37 PM EST) [facility] C-Reactive Protein 10.20(H) <=0.50 mg/dL LAB CHEMISTRY METHOD 06/13/2024 2:25 PM [facility] Blood Venous blood specimen / Unknown Venipuncture / Unknown 06/13/2024 12:37 PM EST 06/13/2024 12:55 PM EST us Napoleon Neely MD LAB BLOOD ORDERABLES Final Re sult [facility] [address] [place] [address], * (ABNORMAL) Basic metabolic panel (06/13/2024 12:37 PM EST) Sodium 133 133 - 145 mmol/L [...] 06/13/2024 1:21 PM [facility] eGFR 104 >=60 mL/min/1. 73m2 LAB CHEMISTRY METHOD 06/13/2024 1:21 PM [facility] Comment:Calculation based on the??Chronic Kidney Disease Epidemiology Collaboration (CKD-EPI) equation refit??without adjustment for race. BUN/Creatinine Ratio 20.0 LAB CHEMISTRY METHOD 06/13/2024 1:21 PM EST [facility] Calcium 8.2(L) 8.5 - 10.5 mg/dL LAB CHEMISTRY METHOD 06/13/2024 1:21 PM [facility] Blood Venous blood specimen / Unknown Venipuncture / Unknown 06/13/2024 12:37 PM EST 06/13/2024 12:55 PM EST us Barak Benjamin MD LAB BLOOD ORDERABLES Berenice l Result [facility] [address] [place] [address], [place] [phone] * (ABNORMAL) CBC auto differential (06/13/2024 12:37 [...] 1:10 PM [facility] Neutrophils Absolute 6.01 1.50 - 7.00 K/mcL LAB HEMETOLOGY METHOD 06/13/2024 1:10 PM [facility] Lymphocytes Absolute 0.38(L) 1.00 - 5.00 K/mcL LAB HEMETOLOGY METHOD 06/13/2024 1:10 PM EST [facility] Monocytes Absolute 0.44 0.20 - 1.00 K/mcL LAB HEMETOLOGY METHOD 06/13/2024 1:10 PM EST [facility] Eosinophils Absolute 0.01 0.00 - 0.50 K/[facility] LAB HEMETOLOGY METHOD 06/13/2024 1:10 PM EST [facility] Basophils Absolute 0.01 0.00 - 0.20 K/[facility] LAB HEMETOLOGY METHOD 06/13/2024 1:10 PM EST [facility] Immature Granulocytes Absolute 0.03 0.00 - 0.03 K/[facility] LAB HEMETOLOGY METHOD 06/13/2024 1:10 PM EST [facility] Blood Venous blood specimen / Unknown Venipuncture / Unknown 06/13/2024 12:37 PM EST 06/13/2024 12:55 PM EST Barak Benjamin MD LAB BLOOD ORDERABLES Berenice l Result [facility] [address] [place] [address], [place] [phone] * (ABNORMAL) Lactate, with reflex (06/13/2024 12:37 PM EST) LACTIC ACID 2.9(H) 0.4 - 2.0 mmol/L LAB CHEMISTRY METHOD 06/13/2024 1:26 PM EST [facility] Blood Venous blood specimen / Unknown Venipuncture / Unknown 06/13/2024 12:37 PM EST 06/13/2024 12:55 PM EST Barak Benjamin MD LAB BLOOD ORDERABLES Berenice l Result [facility] [address] [place] [address], documented in this encounter Visit Diagnoses Diagnosis Pseudomonal bacteremia- Primary Bacteremia Alex catheter in place Other postprocedural status Urinary tract infection associated with indwelling urethral catheter, initial encounter ([facility]) Hx of ascites Anasarca Edema documented in [...] on Fri06/14/24 at 2100, Indication: VTE/PE Treatment Given 06/15/2024 [...] mL/hr, Administer over 5 Minutes, Once, On Fri06/13/24 at 1213, For 1 dose, Indication: Sepsis, [...] daily, First dose on Fri06/13/24 at 1405 Given 06/16/2024 1:02 PM EST [...] (four) hours if needed for severe pain. apixaban (ELIQUIS) 5 mg tablet Take 1 [...] on 06/14/24 at 2100, Indication: VTE/PE Treatment 2053 (Given - Provider: Sisi Barber RN) 0833 (Given - Provider: Ruchi Pedro RN)2131 (Given - Provider: Sisi Barber RN) 0923 (Not Given - Provider: Saskia George RN - Reason: Other - Comment: patient declined) atorvastatin (LIPITOR) tablet 20 mg 20 mg, oral, Nightly, First dose on 06/13/24 at 2100 2053 (Given - Provider: Sisi Barber RN) 2131 (Given - Provider: Sisi Barber RN) cefepime (MAXIPIME) 2 g in sterile water 20 mL IV syringe 2 g, intravenous, at 240 mL/hr, Administer over 5 Minutes, Every 8 hours, First dose on 06/13/24 at 2000, For 7 days, Indication: Bacteremia 0441 (Given - Provider: Patricia Hayes RN)1219 (Given - Provider: Maria G Mccarty, VIVIAN)2053 (Given - Provider: Sisi Barber RN) 0536 (Given - Provider: Sisi aBrber RN - Comment: q8; given @2099)1307 (Given - Provider: Ruchi Pedro RN)2131 (Given - Provider: Sisi Barber RN) 0504 (Given - Provider: Sisi Barber RN)1300 (Given - Provider: Saskia George RN) cholecalciferol (VITAMIN D-3) tablet 2,000 Units 2,000 Units, oral, Daily, First dose on 06/13/24 at 1701, 1000 units = 25 mcg of cholecalciferol (VITAMIN D3) 0847 (Given - Provider: Maria G Mccarty RN) 0833 (Given - Provider: Ruchi Pedro, VIVIAN) 0919 (Given - Provider: Saskia George, RN) furosemide (LASIX) tablet 20 mg 20 mg, oral, Every 24 hours, First dose on Fri06/14/24 at 1500, 40mg in AM and 20mg in PM 1519 (Given - Provider: Jamel Holder, VIVIAN) 1721 (Given - Provider: Ruchi Pedro, VIVIAN) 1424 (Given - Provider: Saskia George, RN) furosemide (LASIX) tablet 40 mg 40 mg, oral, Daily, First dose (after last modification) on Fri06/14/24 at 0900 0847 (Given - Provider: Maria G Mccarty RN) 0833 (Given - Provider: Ruchi Pedro RN) 0921 (Given - Provider: Saskia George, RN) lidocaine (XYLOCAINE) 1 % injection 5 [...] Mccarty, VIVIAN) 0833 (Given - Provider: Ruchi Pedro RN) 0919 (Given - Provider: Saskia George RN) sodium chloride 0.9 % flush 10 mL(Linked Group 1) 10 mL, intravenous, 2 times daily, First dose on 06/13/24 at 1405 0857 (Given - Provider: Maria G Mccarty RN)2101 (Given - Provider: Sisi Barber, RN) 0833 (Given - Provider: Ruchi Pedro, VIVIAN)213 (Given - Provider: Sisi Barber, RN) 0923 (Given - Provider: Saskia George RN)1302 (Given - Provider: Saskia George RN [...] forms 0848 (Given - Provider: Maria G Mccarty RN) 0833 (Given - Provider: Ruchi Pedro RN) 0920 (Given - Provider: Saskia George RN) tamsulosin (FLOMAX) 24 hr capsule 0.4 mg 0.4 mg, oral, Daily, First dose on 06/13/24 at 1713, For oral administration: capsules should be swallowed whole (Do not crush, chew, or open). For tube administration: open capsule and administer with water (granules should NOT be crushed). 0847 (Given - Provider: Maria G Mccarty RN) 0833 (Given - Provider: Ruchi Pedro RN) 0920 (Given - Provider: Saskia George RN) Continuous Medication Order 06/14/2024 06/15/2024 06/16/2024 sodium chloride 0.9 % infusion (CANCELED) 100 mL/hr, intravenous, Continuous, Starting on 06/13/24 at 1213 0113 (Rate/Dose Verify - Provider: Patricia Hayes, RN)0142 (Stopped - Provider: Patricia Hayes, RN) PRN [...] 24 hours 1307 (Given - Provider: Ruchi Pedro, VIVIAN) naloxone (NARCAN) injection 0.04 mg 0.04 mg, [...] Barber, VIVIAN) 0832 (Given - Provider: Ruchi Pedro, VIVIAN)1308 (Given - Provider: Ruchi Pedro, VIVIAN)2133 (Given - Provider: Sisi Barber, VIVIAN) 0515 (Given - Provider: Sisi Barber, VIVIAN)1300 (Given - Provider: Saskia George RN) sodium chloride 0.9 % flush 10 mL(Linked Group 1) 10 mL, intravenous, As needed, line care, Starting on 06/13/24 at 1358 zolpidem (AMBIEN) tablet 10 mg 10 mg, oral, Nightly PRN, sleep, Starting on 06/13/24 at 1700 2056 (Given - Provider: Sisi Barber, RN) 0 (Given - Provider: Sisi Barber, RN - Comment: barcode torn unable to scan) Linked Groups Order Group [...] 06/16/2024 documented in this encounter Care Teams Utility Aide Relationship Specialty Start Date End Date Dalia Harmon PA [address] [facility], [address] [place] [address] PCP - General 05/10/24 documented as of this encounter
--- OUTSIDE RECORDS SUMMARY | 2024-06-29 18:10 | XMS_ITS | Encounter Summary ---
Author Organization [facility] Address [address] [place] [address] Care Team Providers Care Plumber Maintenance Name Role Phone Dalia Harmon Primary Care Provider [phone] Encounter Details Date Type Department Care Team (Late st Contact Info) Description 06/18/2024 Lab Requisition [facility] - Main Lab [address] [facility] [place] [address] Gerry Barksdale [address] [facility] [address] [place] [phone] Sepsis, unspecified organism (CMS/HCC) Social History Tobacco [...] Appointment [facility] Interventional Radiology [address] [place] [address] 08/12/2024 10:30 AM EDT Ancillary Procedure [facility] [address] [phone] 08/26/2024 8:30 AM EDT Office Visit Gastroenterology - [place] [facility] [address] [phone] Han Sloan DO [address] [address] documented as of this encounter Visit Diagnoses Diagnosis Sepsis, unspecified organism (CMS/HCC) documented in this encounter Care Teams Plumber Maintenance Relationship Specialty Start Date End Date Dalia Harmon PA [address] [place] [address], [address] [place] [address] PCP - General 05/10/24 documented as of this encounter
--- OUTSIDE RECORDS SUMMARY | 2024-06-29 18:10 | XMS_ITS | Continuity of Care Document ---
Author Organization [employer] [facility] [employer] Address [address] [place] [phone] Care Team Providers Care Sweeper Brush Maker Machine Name Role Phone HIM [employer] Primary Care Provider [phone] Assessment Encounter Date Assessment Date Assessment LastModified [...] in the field was performed by my surveillance dual rate officer colleague, as noted above, I provided real-time [...] needs coags and platelets checked Disposition: To [facility] ED via 911. Patient is agreeable [...] Name and Address Organization Details Recorded Time 02670 semagluti de medicatio n Not available Not available Not available 03/18/2024 RxNorm Not Available [employer] [facility] - production 4 18:27:38 05261 nystatin medicatio n Not available Not available Not available 06/10/2024 7597 Rx[facility] 20:32:41 87512 codeine medicatio n Not available Not available Not available 06/10/2024 2670 RxNorm Not Available [facility] 20:32:41 Medications Name Sig [...] cm 97 % 97 % 99 /min 872239. 584 g 20 /min 150 mm[Hg] 90 mm[Hg] Not Available [facility] - production 5 20:56:17 Social History None recorded. Functional Status None recorded. Mental Status None recorded. Family History Nothing Reported. Medical History No medical history recorded. Past Encounters Encounter ID Performer Location Encounter Start Date Encounter Closed Date Diagnosis/Indication Diagnosis SNOMED-CT Code Diagnosis ICD10 Code Diagnosis Note [id number] Yasmeen Redmond MD Main - [facility] [address] [place] [phone] 06/10/2024 20:56:07 06/10/2024 21:35:04 Indwelling urethral urinary catheter in situ 872946375 Z96.0 [id number] FRANSISCO POLANCO MD Main - [facility] [address] [place] [phone] 06/11/2024 20:56:11 06/12/2024 09:25:59 Jovi hematuria [id number] R31.0 Health Concerns Section Related Observation LastModified by Organization Detai ls LastModified Time None Recorded Concern Status LastModified by Organization Details LastModified Time None Recorded Payers Encounter Date Sequence Insurance Name Policy Number Policy Pan Covered Member ID Pan Member ID Guarantor Name 06/11/2024 1 [facility] - DOS ON OR AFTER 2022 - DUAL ELIGIBLE - [employer] OPT[employer] AND ONE CARE (MEDICARE REPLACEMENT/ADV ANTAGE - HMO) Jonny Reed [id number] Jonny Reed Notes Date Note Type Note Provider Name and Address Organization Details Recorded Time 06/11/2024 text/html [facility] Nurse Triage Notes (lEsie Sultana - RN): Reason For Request: Patient [...] with worsening s/sx-NE FRANSISCO POLANCO MD [address] [facility],[address], [place], [address], RADHA - ANNE FRY 06/11/2024 22:21:06
== END 2024-06-29 14:47 | disposition home or self-care (01) ==
LOC: HO.US 14:46
PROVIDERS: Visit Provider Internal Medicine
DX: I82.403 Acute embolism and thrombosis of unspecified deep veins of lower extremity, bilateral (principal)
CPT/HCPCS: 93970

== ENCOUNTER → 2024-06-29 15:00 | Outpatient (BNV) | payer OTHER, SELFPAY | PROVIDERS: Visit Provider Radiology Diagnostic Radiology | DX: I82.401 Acute embolism and thrombosis of unspecified deep veins of right lower extremity (principal); I82.402 Acute embolism and thrombosis of unspecified deep veins of left lower extremity | CPT/HCPCS: 93970 ==

== ENCOUNTER 2024-07-01 10:24 | Outpatient (AMB) | payer OTHER, SELFPAY ==
[2024-07-01 10:29] VITALS: BP 134/78; PULSE 98; O2SAT 95; BMI 51.6
--- NOTE | 2024-07-01 10:29 | MHC.OFFVIS ---
Vital Signs 07/01/24 10:29 Height 5 ft 6 in Weight 320 lb BMI 51.6 BP 134/78 Blood Pressure Location Lt brachial Position Sitting Pulse 98 Pulse Source Pulse Oximeter Pulse Oximetry (%) 95 Oxygen Delivery Method Room Air Intake Visit Reasons: follow up/ pill count PER DR. GUZMAN Allergies nystatin Adverse Reaction (Mild, Verified 07/01/24 10:29) swelling atorvastatin Adverse Reaction (Verified 07/01/24 10:29) Diarrhea HPI Comments Details: Jonny is back in my office today for the pill count and pain medication refill. His pill count is correct today his supposed to have no pills in his possession. He presented with 93 pills in his possession. He reports his pain today 09/28. He denies side effects of the opioid medications. He is wheelchair-bound. he has indwelling Cuello catheter. he is on the least with [facility] for liver transplant. He is going for portacaval percutaneous anastomosis (TIPS) in [facility]. It will be done under sedation. I told him to obtain from the Anesthesiology Department a complete summary of care with inclusion of the medications he would receive on this procedure. His prescription will be renewed on: 07/15/2024 Prior: c/o chronic debilitating 12/29 to 01/28 pain syndrome. left hip avascular necrosis and severe arthritis as well as postlaminectomy syndrome of the lumbar spine. He is here with the intention to start chronic opioid therapy in this office however he is interested in interventional pain management. The assessment was performed today, he is currently on rather elevated doses of the opioid medications. I explained to him that I will not be able to prescribe 60 mg of continuous oxycodone and 10 mg of oxycodone p.r.n. on demand I would have to taper these dose down to more acceptable levels. His PHQ-9 score is equal to 8. The opioid addiction risk score is equal to 21. Total score is equal to 29. Therefore he is high-risk for opioid addiction and implication of this assessment was explained to the patient. Information on chronic opioid therapy was carefully explained to the patient. Informed consent for the treatment of chronic opioid therapy was carefully explained to the patient. The patient has signed agreement for chronic opioid therapy as well as consent and information page. Need for careful monitoring of the opioid intake was explained to the patient. Pill count regular and random as well as UDS regular and random were carefully explained to the patient with all the implications on his personal life. [facility] Medical History Chronic pain syndrome Portal hypertensive gastropathy Depression Anxiety Iron overload syndrome Internal hemorrhoids Diverticulosis Hx of esophageal varices alf prescription opiate use No natural teeth Back pain Back pain Arthritis Fatty liver History of cirrhosis of liver Avascular necrosis Hemochromatosis COPD (chronic obstructive pulmonary disease) NICOLE on CPAP Surgical History Hx of esophagogastroduodenoscopy Hx of colonoscopy [place] teeth extracted History of surgery History of back surgery (~1997) H/O discectomy (~1997) Family History Maternal Grandfather Heart attack Brother Heart attack Social History Household Members: None Housing: Apartment Are you a primary director career services to a significant other at home: No Do you presently have visiting nurse or other home services: Yes ([employer] 37.5 hours M-F, 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) 75 years or older and lives alone: No Patient Tobacco Use Status: Former Tobacco user Tobacco use type: Cigarette Substance Use Type: Marijuana service: No Current occupational status: unemployed Gender identity: Male Cognitive needs: No Hearing needs: No Vision needs: No Review of Systems Const All systems reviewed & are unremarkable except as noted in HPI and below Physical Exam General: Appears afebrile. Morbidly obese. Alert and oriented. Mood and affect appropriate. Follows and participates in conversation appropriately. Respiratory effort is unlabored. No cough. Able to transition from sit to stand with assistance. Patient arrived via W/C, reports minimal ambulation due to left hip and back pain. Eyes General: appearance normal, both eyes and all related structures GI Inspection: Yes distended and Yes caput medusae present Other: indwelling Cuello catheter Back/Spine/Pelvis Cervical Spine: loss of normal cervical lordosis, cervical muscular tenderness, pain with cervical ROM and No Cervical spine tenderness Thoracic/Lumbar Spine: thoracic and lumbar spine normal to inspection, Thoracic/lumbar spine scar(s), Lasegue's sign negative, straight leg raise negative bilaterally, pain with thoraco-lumbar ROM, thoraco-lumbar ROM limited, No thoracic spinal tenderness and lumbar spinal tenderness (L4-S1) Sacroiliac joints: bilaterally tender to palpation Extrem General: Yes no calf tenderness, No cyanosis and Yes edema (BLE +1-+2 nonpitting edema) Left lower extremity: hip/thigh (limited ROM due to pain and body habitus. +groin pain with I/E rotations) Details: tenderness Location: of the hip Location: posterolaterally and over the great trochanter and crepitus; no swelling, no ecchymosis and no unusual warmth Psych Appearance: grossly normal Mental Status: mental status grossly normal Speech and movement: Normal speech and movement present Affect: Anxious affect present Insight: Good insight present (Psych) Judgement: Good judgement present (Psych) Assessment & Plan Assessment & Plan (1) Chronic pain syndrome: Code(s): G89.4 - Chronic pain syndrome Category: Medical (2) Avascular necrosis of bone of left hip: Code(s): M87.052 - Idiopathic aseptic necrosis of left femur Category: Medical Plan: Patient having avascular necrosis of the left hip which significantly limits his mobility. P (3) Morbid obesity with BMI of 45.0-49.9, adult: Code(s): E66.01 - Morbid (severe) obesity due to excess calories; Z68.42 - Body mass index [BMI] 45.0-49.9, adult Category: Medical Plan: Healthy diet and regular exercise is encouraged. (4) Lumbar post-laminectomy syndrome: Code(s): M96.1 - Postlaminectomy syndrome, not elsewhere classified Category: Medical (5) Liver cirrhosis: Code(s): K74.60 - Unspecified cirrhosis of liver Category: Medical (6) Ascites: Code(s): R18.8 - Other ascites Category: Medical Plan pill count is correct today. The new prescription will be sent on 07/15/2024. Next appointment in 1 month. The patient is on transplant list. He will go for TIPS procedure. I requested him to obtain summary of care from anesthesiologist if he will go for this procedure. Medications: Refilled oxycodone Partial Fill upon patient request. 10 mg PO Q4H 30 days PRN 180 tabs 0RF pain Coding Level of Care Code Est Pt Level 3 (92751) Diagnoses Chronic pain syndrome G89.4 Avascular necrosis of bone of left hip M87.052 Morbid obesity with BMI of 45.0-49.9, adult E66.01; Z68.42 Lumbar post-laminectomy syndrome M96.1 Liver cirrhosis K74.60 Ascites R18.8
--- OUTSIDE RECORDS SUMMARY | 2024-07-01 13:00 | XMS_ITS | Data Portability ---
Author Organization [facility] [employer] Address [address] [place] [phone] Care Team Providers Care Digital Media Sales Consultant Name Role Phone HIM [facility] Primary Care Provider Assessment Encounter Date Assessment [...] assessment and plan as documented by the lint cleaner. I provided real-time medical direction for this encounter and was immediately available to provide additional phone-based assistance as needed. HPI: 64M presenting with malfunctioning catheter, leaking. No other symptoms noted. Was recently tested for UTI and was negative. VSS. Exam otherwise unremarkable per the lint cleaner. Able to reinsert catheter to have appropriate [...] in the field was performed by my lint cleaner colleague, as noted above, I provided real-time [...] needs coags and platelets checked Disposition: To [facility] ED via 911. Patient is agreeable [...] culture,comp rehensive Final report Not Available [facility] ([facility]) [address] [facility], [place], [address], 03/19/2024 10:05:46 03/16/2003/19/2024 URINE CULTU RE,CO MPREH ENSIV E result 1 COMMEN T No growt h in 36 - 48 hours . Not Available [facility] ([facility]) [address] [facility], [place], [address], 03/19/2024 10:05:46 Result Notes None recorded. Medical Equipment None Reported. Allergies Allergen ID Allergen Name Allergen Category Reaction Reaction Severity Criticality Documentation Date Start Date Code Code System Note Provider Name and Address Organization Details Recorded Time 60715 semagluti de medicatio n Not available Not available Not available 03/18/2024 RxNorm Not Available [facility] - [employer] 4 18:27:38 77858 nystatin medicatio n Not available Not available Not available 06/10/2024 7597 RxNorm Not Available [facility] - [employer] 5 20:32:41 46492 codeine medicatio n Not available Not available [...] cm 96 % 96 % 98 [degF] 364324 g 14 /min 77 /min 134 mm[Hg] 82 mm[Hg] Not Available [employer] 4 19:24:57 Date Recorded Body weight Oxygen saturation Oxygen saturation in Arterial blood by Pulse oximetry Respiratory rate Body temperature Heart rate Systolic blood pressure Diastolic blood pressure Provider Name and Address Organization Details Last Updated DateTime 5 925739. 28 g 97 % 97 % 16 /min 98.2 [degF] 86 /min 156 mm[Hg] 82 mm[Hg] Not Available [facility] [employer] 5 10:41:34 Date Recorded Body weight Body height Body temperature Oxygen saturation Oxygen saturation in Arterial blood by Pulse oximetry Respiratory rate Heart rate Systolic blood pressure Diastolic blood pressure Provider Name and Address Organization Details Last Updated DateTime 5 967228. 28 g 167.64 cm 98 [degF] 94 % 94 % 16 /min 87 /min 162 mm[Hg] 72 mm[Hg] Not Available [facility] [employer] 5 18:57:19 Date Recorded Heart rate Oxygen [...] cm 97 % 97 % 99 /min 695584. 584 g 20 /min 150 mm[Hg] 90 mm[Hg] Not Available [facility] - production 20:56:17 Social History None recorded. Functional Status None recorded. Mental Status None recorded. Family History Nothing Reported. Medical History No medical history recorded. Past Encounters Encounter ID Performer Location Encounter Start Date Encounter Closed Date Diagnosis/Indication Diagnosis SNOMED-CT Code Diagnosis ICD10 Code Diagnosis Note [id number] Aleksandar Manning MD [facility] - [facility] [address] [place] [phone] 03/16/2024 13:37:07 03/16/2024 16:05:19 Mechanical complication of urethral indwelling catheter [id number] T83.098A [id number] [facility] [address] [place], [place] [phone] 03/18/2024 19:24:55 03/19/2024 15:31:31 Complication of urinary catheter [id number] T83.9XXA [id number] [facility] [address] [place] [phone] 04/23/2024 10:41:31 04/23/2024 16:17:35 Complication of urinary catheter [id number] T83.9XXA As noted, we were called to see this patient regarding concerns of malpositio n of alex catheter Evaluation in the field was performed by my lint cleaner colleague, as noted above, I provided real-time direction and supervisio n for this visit. The evaluation revealed normal VS and simple disconnect ion, which the patient was not able to adequately visualize due to body habitus. Impression :Alex disconnect ion without any patient complicati ons Plan:Recon Prashant crawford [id number] Betsy Lopez MD Main - [facility] [address] [place] [phone] 04/25/2024 18:57:17 04/26/2024 00:18:55 Complication of urinary catheter [id number] T83.9XXS As noted, we were called to see this patient regarding concerns of malfunctio vy urinary catheter. Evaluation in the field was performed by my lint cleaner colleague, as noted above, I provided real-time [...] of any new or worsening serious symptoms. [id number] Yasmeen Redmond MD Main - [facility] [address] [place] [phone] 06/10/2024 20:56:07 06/10/2024 21:35:04 Indwelling urethral urinary catheter in situ [id number] Z96.0 [id number] FRANSISCO POLANCO MD Main - [facility] [address] [place] [phone] 06/11/2024 20:56:11 06/12/2024 09:25:59 Jovi hematuria [id number] R31.0 Health Concerns Section Related Observation LastModified by Organization Detai ls LastModified Time None Recorded Concern Status LastModified by Organization Details LastModified Time None Recorded Advance Directives Directive None Recorded Payers Encounter Date Sequence Insurance Name Policy Number Policy Pan Covered Member ID Pan Member ID Guarantor Name 03/18/2024 1 [facility] - DOS ON OR AFTER 2022 - DUAL ELIGIBLE - SNF OPTIONS AND ONE CARE (MEDICARE REPLACEMENT/ADV ANTAGE - HMO) Jonny Reed [id number] Jonny Reed 04/23/2024 1 [facility] [facility] [facility] - DOS ON OR AFTER 2022 - DUAL ELIGIBLE - SNF OPTIONS AND ONE CARE (MEDICARE REPLACEMENT/ADV ANTAGE - HMO) Jonny Alejandroes [id number] Jonny Reed 04/25/2024 1 [facility] [facility] - DOS ON OR AFTER 2022 - DUAL ELIGIBLE - SNF OPTIONS AND ONE CARE (MEDICARE REPLACEMENT/ADV ANTAGE - HMO) Jonny Derek [id number] Jonny Reed 06/10/2024 1 [facility] - DOS ON OR AFTER 2022 - DUAL ELIGIBLE - SNF OPTIONS AND ONE CARE (MEDICARE REPLACEMENT/ADV ANTAGE - HMO) Jonny Alejandroes [id number] Jonny Alejandroes 06/11/2024 1 [facility] [employer] - DOS ON OR AFTER 2022 - DUAL ELIGIBLE - SNF OPTIONS AND ONE CARE (MEDICARE REPLACEMENT/ADV ANTAGE - HMO) Jonny Reed [id number] Jonny Burnett Reed Notes Date Note Type [...] needed. [facility] Alex cath changed [...] ................... ................... ................... ................... ................... ................... ........ Yam Curer Note From Esa Francisco: Patient alert and oriented seated in chair. Patient complains of leakage around urethra. Patient reports alex catheter inserted times two days ago by [facility] personnel. Patient reports he noticed [...] the hospital. Sticker to secure tube applied. [facility] advises culture taken times two days ago currently negative for growth.Patient encouraged to monitor site, contact [facility] health care facility to help arrange urology referral, and call [facility] again if needed. Patient and caregiver demonstrates understanding of care and plan. Patient grateful for assistance. ................... ................... ................... ................... ................... ................... ................... ........ [facility] Consulted: Elvi Pereira ................... ................... ................... ................... ................... ................... ................... ........ Disposition: Fulfilled Elvi Pereira MD [address] [place] [address],[address], [place], [phone], [facility] 03/18/2024 20:14:22 04/23/2024 text/html [facility] Nurse Triage [...] PMH: Chronic Back Pain, Hypertension, Cirrhosis Comments: Die Presser verified the name//address and phone number. Pt [...] ................... ................... ................... ................... ................... ................... ........ Yam Curer Note From Hussein Grossman: Pt co alex cath disconnection from bag tube. Pt got up and it fell off. Pay can not see th area due to obesity and was unsure what had happened. Pt denies pain. Pt sts urine is sti voiding from catheter. Pt has no other complaints. Alex reconnected without issue. Pt education on signs indicating the ER. [facility] contacted and advised of resolution. ................... ................... ................... ................... ................... ................... ................... ........ [facility] Consulted: Justin Bustillo ................... ................... ................... ................... ................... ................... ................... ........ Disposition: Fulfilled Juan Antonio Bustillo MD [address] [facility],[address], [place], [phone], [facility] 04/23/2024 10:47:59 04/25/2024 text/html [facility] Nurse Triage [...] PMH: Chronic Back Pain, Hypertension, Cirrhosis Comments: [employer] Presser verified the Pt.'s name//address and phone number. [...] ................... ................... ................... ................... ................... ................... ........ Yam Curer Note From Marcellus Mauro: This 64-year-old male [...] ................... ................... ................... ................... ................... ................... ........ [facility] Consulted: Betsy Lopez ................... ................... ................... ................... ................... ................... ................... ........ Disposition: Barbara Lopez MD [address] [facility],[address], [place], [phone], [employer] 04/25/2024 20:46:05 06/10/2024 text/html [facility] Nurse Triage Notes (Elsie Sultana - [...] ................... ................... ................... ................... ................... ................... ........ Yam Curer Note From Harley Rodriguez: Dispatched to above [...] urine not obviously displaced, no active leaking. [facility] contacted, advised of patient complaints and exam findings. Catheter balloon drained 10ml sterile water, re-inflated, patient reported discomfort, catheter advanced and re-inflated without pain, urine moving in tubing, patient denies discomfort. [facility] advised of catheter troubleshooting, recommends home monitoring with follow up should leaking continue. Patient agrees with this plan. Patient has no additional questions or concerns at this time. SC8 clear. [facility]. ................... ................... ................... ................... ................... ................... ................... ........ [facility] Consulted: Yasmeen Redmond ................... ................... ................... ................... ................... ................... ................... ........ Disposition: Fulfilled Yasmeen Redmond MD [address] [place] [address],[address], [place], [phone] [employer] [facility] 06/10/2024 21:28:25 06/11/2024 text/html [facility] Nurse Triage Notes (Elsie Sultana - RN): Reason For Request: Patient has cath problems, Urine and blood in the back, problems all morning with it. Chief Complaints: Urinary catheter/nephrostom y tube problems PMH: Chronic Back Pain, Hypertension, Cirrhosis PMH Reviewed at 06/11/2024 - 18:22 Allergies Reviewed at 06/11/2024 - 18:22 Comments: [facility], catheter changed [...] with worsening s/sx-NE FRANSISCO POLANCO MD [address], [place], [address], [facility] [employer] 06/11/2024 22:21:06
--- OUTSIDE RECORDS SUMMARY | 2024-07-01 13:00 | XMS_ITS | Clinical Summary ---
Author Organization [facility] Address [address] [place] [phone] Phone Care Team Providers Care Mental Health Aide Name Role Phone Dalia Harmon Primary Care Provider [phone] Allergies Active Allergy Reactions Criticality Noted Date [...] 06/26/19 23 Overview (12/25/2023): 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 Follows with GI. Liver cirrhosis [...] Department Care Team Description 06/29/2024 Telephone Gastroenterology [facility] 175 [facility] [address] [phone] Han Sloan DO Appointment (Upcoming Echo) 06/24/2024 11:20 AM EST Office Visit G[facility] [address] [phone] Han Sloan DO Cirrhosis of liver with ascites, unspecified hepatic cirrhosis type (CMS/HCC) (Primary Dx); Other ascites; Deep vein thrombosis of portal vein 06/18/2024 Lab Requisition [facility] - Main Lab 299 [facility] [place] [phone] Gerry Barksdale Sepsis, unspecified organism (CMS/HCC) 06/14[facility]20[facility] 175 [facility] [address] [phone] Han Sloan DO provider call back 06/13/2024 12:02 PM EST - 06/16/2024 2:30 PM EST Hospital Encounter [facility] Surgical Unit [address] [place] [phone] Barak Benjamin MD Flores, Carlos M, MD Kela, Kashyap Devendrabhai, MD Mohani, Priya, MD Bacteremia (Primary Dx); Cuello catheter in place; Urinary tract infection associated with indwelling urethral catheter, initial encounter (CMS/HCC); Hx of ascites; Anasarca Discharge Disposition: Home-Health Care [facility] 06/11/2024 10:01 PM EST - 06/12/2024 12:27 PM EST Emergency [facility] Emergency [address] [place] [phone] Barak Benjamin MD Gross hematuria (Primary Dx); Tachycardia; Abnormal chest CT Discharge Disposition: Home or Self Care 06/04/[address] [facility] Lab [address] [place] [phone] Gerry Barksdale Sepsis, unspecified organism ([facility]/HCC) 06/03/2024 Telephone Gastroenterology [facility] 175 [facility] 175 [facility] [address] [place] [phone] Han Sloan DO TESTING 05/28/[address] [facility] Lab [address] [place] [phone] Gerry Barksdale Sepsis, unspecified organism ([facility]/HCC) 05/26/[address] [facility] Lab [address] [place] [phone] Gerry Barksdale Weakness; Urinary tract infection, site not specified 05/25/2024 Telephone [facility]astroenterology [facility] 175 [facility] [address] [phone] Han Sloan DO 05/[facility] [address] [phone] Han Sloan DO provider call back 05/19/2024 3:40 PM EST - 05/25/2024 4:38 PM EST Hospital Encounter [facility] Surgical Unit [address] [place] [phone] Emily Singh DO Bukalo, Nermina, MD Nasser, Nada S, MD Kela, Kashyap Devendrabhai, MD Bilateral leg edema (Primary Dx); Urinary tract infection without hematuria, site unspecified; Hepatic cirrhosis, unspecified hepatic cirrhosis type, unspecified whether ascites present (CMS/HCC); Cellulitis of left leg; Severe sepsis (CMS/HCC) Discharge Disposition: Assisted Facility 05/12/2024 9:15 AM EST - 05/12/2024 11:59 PM EST Hospital Encounter [facility] CT Scan [address] [place] [phone] Decompensated cirrhosis (CMS/HCC); 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); Urinary retention Discharge Disposition: Home or Self Care 05/11/2024 10:27 AM EST - 05/11/2024 11:59 PM EST Hospital Encounter [facility] Ultrasound [address] [place] [phone] 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) Discharge Disposition: Home or Self Care 05/10/2024 Telephone [facility] [address] [place] [phone] Em Dixon DO Faxed Order (Silvia FULTON) 05/05/2024 Telephone [facility]astroenterology [facility] 175 [address] [facility] [address] [place] [phone] Han Sloan DO 04/20/2024 Telephone [facility] [address] [facility] [address] [place] [phone] Han Sloan DO provider call back 04/13/2024 [facility] [address] [facility] [address] [place] [phone] Claudia Diez RI 04/09/2024 [facility] [address] [facility] [address] [phone] Han Sloan DO provider call back 04/07/2024 11:50 AM EST Lab Draw Station - [address] [facility] [address] [facility] [address] [place] [phone] Decompensated cirrhosis (CMS/HCC); 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); Urinary retention; Anasarca; Liver cirrhosis secondary to CASTANEDA (nonalcoholic steatohepatitis) (CMS/HCC) 04/07/2024 11:00 AM EST Office Visit [facility]astroenter[facility] 175 [address] [facility] [address] [place] [phone] Han Sloan DO Decompensated cirrhosis (CMS/HCC) (Primary Dx); 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); Urinary retention 04/05/2024 Billing Patient Not Present Internal Medicine - [address] [phone] Em Dixon DO Hereditary hemochromatosis (CMS/HCC) (Primary [...] elsewhere classified 04/05/2024 Telephone Internal Medicine - [address] [phone] Em Dixon DO Faxed Order ([facility] (Discharge Summary)) 04/05/2024 Telephone Internal Medicine - [address] [phone] Em Dixon DO Faxed Order ([facility]) 04/02/2024 Telephone Internal Medicine [address] [phone] Em Dixon DO Faxed Order ([facility] (Missed Visit)) from Last 3 Months Surgical History Surgery Date Site/Laterality Comments BACK SURGERY PROCEDURE: HISTORICAL BACK SURGERY; COMMENT: spinal diskectomy, osteophytectomy x4 ESOPHAGOGASTRODUODENOSCOPY PROCEDURE: MO ESOPHAGOGASTRODUODENOSCOPY TRANSORAL DIAGNOSTIC COLONOSCOPY N/A PROCEDURE: HISTORICAL COLONOSCOPY OTHER SURGICAL HISTORY Right PROCEDURE: MO STAB PHLEBT VARICOSE VEINS 1 XTR > [...] Brother x2 Other: other Father cancer from asb estos Heart attack Grandparent maternal Obesity Half-Brother [...] Upcoming Encounters Date Type Department Care Team (Late st Contact Info) Description 07/06/2024 1:00 PM EDT Appointment [facility] Interventional Radiology [address] [place] [phone] 08/26/2024 8:30 AM EDT Office Visit Gastroenterology - [place] 175 [address] 175 [facility] [address] [place] [phone] Han Sloan DO 175 [facility] [address] [place] [address] Health Maintenance Due Date Last Done Comments [...] (06/15/2024 2:35 PM EST) Left [facility] [place] 5.9 cm CV PACS [place] Area Sys [...] of4 resultswithin the time period is included. [facility] Ventricular Rate ECG 85 BPM GEMUSE Atrial Rate 85 BPM GEMUSE P-R Interval 126 ms GEMUSE QRS Duration 130 ms GEMUSE Q-T Interval 408 ms GEMUSE QTc 485 ms GEMUSE P Wave [place] 28 degrees GEMUSE R [place] -36 degrees GEMUSE T [place] 29 degrees GEMUSE ECG Interpretation Normal sinus rhythm Left axis deviation Right bundle branch block Abnormal ECG When compared with ECG of 12-JUN-2024 03:57, No significant change was found Confirmed by MD Felix, Shelby ([id number]) on 06/15/2024 5:37:07 PM GEMUSE 06/15/2024 12:5 3 PM EST 06/15/2024 5:37 PM EST Liang Reinoso MD ECG ORDERABLES Fin al Result GEMUSE * (ABNORMAL) Complete blood count (06/15/2024 6:38 AM EST) Only the most recent of7 resultswithin the time period is included. [facility] WBC 4.1(L) 4.8 - 10.8 K/mcL LAB HEMETOLOGY METHOD 06/15/2024 7:42 AM [facility] LAB RBC 3.50(L) 4.50 - 5.50 M/mcL LAB HEMETOLOGY METHOD 06/15/2024 7:42 AM [facility] LAB Hemoglobin 11.9(L) 13.5 - 17.5 g/dL LAB HEMETOLOGY METHOD 06/15/2024 7:42 AM [facility] LAB Hematocrit 35.3(L) 42.0 - 54.0 % LAB HEMETOLOGY METHOD 06/15/2024 7:42 AM [facility] LAB MCV 102.3(H) 79.0 - 98.0 FL LAB HEMETOLOGY METHOD 06/15/2024 7:42 AM EST [facility] LAB MCH 34.5(H) 27.0 - 32.0 pcg LAB HEMETOLOGY METHOD 06/15/2024 7:42 AM EST [facility] LAB MCHC 33.7 32.0 - 37.0 g/dL LAB HEMETOLOGY METHOD 06/15/2024 7:42 AM EST [facility] RDW 17.0(H) 11.0 - 15.0 % LAB HEMETOLOGY METHOD 06/15/2024 7:42 AM [facility] LAB Platelets 81(L) 130 - 400 K/mcL LAB HEMETOLOGY METHOD 06/15/2024 7:42 AM [facility] LAB Comment:previously verified by slide MPV 11.0 7.0 - 11.0 FL LAB HEMETOLOGY METHOD 06/15/2024 7:42 AM EST [facility] NRBC 0.0 <1.0 % LAB HEMETOLOGY METHOD 06/15/2024 7:42 AM [facility] LAB NRBC Absolute 0.00 <0.10 K/mcL LAB HEMETOLOGY METHOD 06/15/2024 7:42 AM [facility] Blood Venous blood specimen / Unknown Venipuncture / Unknown 06/15/2024 6:38 AM EST 06/15/2024 7:06 AM EST us Liang Reinoso MD LAB BLOOD ORDERABLE S Final Result [facility] [address] [place] [address], * Phosphorus (06/15/2024 6:38 AM EST) Only the most recent of5 resultswithin the time period is included. Phosphorus 3.0 2.5 - 4.5 mg/dL LAB CHEMISTRY METHOD 06/15/2024 7:50 AM EST [facility] Blood Venous blood specimen / Unknown Venipuncture / Unknown 06/15/2024 6:38 AM EST 06/15/2024 7:06 AM EST us Liang Reinoso MD LAB BLOOD ORDERABLE S Final Result Performing Organization Address City/[facility]/ZIP Co de Phone Number [facility] [address] [place] [address], [place] [phone] * Magnesium (06/15/2024 6:38 AM EST) Only the most recent of7 resultswithin the time period is included. Pathologist [facility] Magnesium 1.9 1.9 - 2.6 mg/dL LAB CHEMISTRY METHOD 06/15/2024 7:50 AM EST [facility] Blood Venous blood specimen / Unknown Venipuncture / Unknown 06/15/2024 6:38 AM EST 06/15/2024 7:06 AM EST us Liang Reinoso MD LAB BLOOD ORDERABLE S Final Result Performing Organization Address [facility] Co de Phone Number [facility] [address] [place] [address], [place] [phone] * (ABNORMAL) Basic metabolic panel (06/15/2024 6:38 AM EST) Only the most recent of12 resultswithin the time period is included. Sodium 134 133 - 145 mmol/L LAB CHEMISTRY METHOD 06/15/2024 7:50 AM EST [facility] Potassium 4.2 3.5 - 5.5 mmol/L LAB CHEMISTRY METHOD 06/15/2024 7:50 AM EST [facility] Chloride 100 96 - 110 mmol/L LAB CHEMISTRY METHOD 06/15/2024 7:50 AM EST [facility] CO2 30 21 - 32 mmol/L LAB CHEMISTRY METHOD 06/15/2024 7:50 AM [facility] Anion Gap 4 3 - 11 LAB CHEMISTRY METHOD 06/15/2024 7:50 AM [facility] Glucose 115(H) 70 - 100 mg/dL LAB CHEMISTRY METHOD 06/15/2024 7:50 AM [facility] BUN 11 5 - 25 mg/dL LAB CHEMISTRY METHOD 06/15/2024 7:50 AM [facility] Creatinine 0.48(L) 0.70 - 1.30 mg/dL LAB CHEMISTRY METHOD 06/15/2024 7:50 AM [facility] LAB eGFR 114 >=60 mL/min/1. 73m2 LAB CHEMISTRY METHOD 06/15/2024 7:50 AM [facility] Comment:Calculation based on the??Chronic Kidney Disease Epidemiology Collaboration (CKD-EPI) equation refit??without adjustment for race. BUN/Creatinine Ratio 22.9 LAB CHEMISTRY METHOD 06/15/2024 7:50 AM [facility] Calcium 8.2(L) 8.5 - 10.5 mg/dL LAB CHEMISTRY METHOD 06/15/2024 7:50 AM [facility] Blood Venous blood specimen / Unknown Venipuncture / Unknown 06/15/2024 6:38 AM EST 06/15/2024 7:06 AM EST Liang Reinoso MD LAB BLOOD ORDERABLE S Final Result [facility] [address] [place] [address], * Cell count with reflex differential, body fluid (06/14/2024 10:19 AM EST) Only the most recent of2 resultswithin the time period is included. Body Fluid Total Nucleated Cells 218 /mm3 LAB HEMETOLOGY METHOD 06/14/2024 11:38 AM [facility] Body Fluid RBC 1,000 /mm3 LAB HEMETOLOGY METHOD 06/14/2024 11:38 AM [facility] Body Fluid Color Yellow 06/14/2024 11:38 AM [facility] Body Fluid Clarity Clear 06/14/2024 11:38 AM [facility] Body Fluid Source Peritoneal 06/14/2024 11:38 AM [facility] Peritoneal Fluid Peritoneal cavity structure / Unknown Non-blood Collection / Unknown 06/14/2024 10:19 AM EST 06/14/2024 10:27 AM EST [facility] - 06/14/2024 11:38 AM EST No reference ranges have been established for body fluids. Clinical correlation recommended. Cristiana RAND LAB BODY FLUIDS AND STO OLS ORDERABLES Final Result [facility] [address] [place] [address], [place] [phone] * Culture body fluid with gram stain (06/14/2024 10:19 AM EST) Fluid Culture No growth at 3 days LAB MICROBIOLOGY METHOD 06/17/2024 11:25 AM [facility] Gram Stain Result No polymorphonuclear leukocytes, No epithelial cells, and No organisms noted 06/17/2024 11:25 AM [facility] Peritoneal Fluid Peritoneal cavity structure / Unknown Non-blood Collection / Unknown 06/14/2024 10:19 AM EST 06/14/2024 10:26 AM EST Cristiana RAND LAB MICROBIOLOGY - GENE RAL ORDERABLES Final Result [facility] [address] [place] [address], [place] [phone] * Differential body fluid (06/14/2024 10:19 AM EST) Only the most recent of2 resultswithin the time period is included. Fluid Neutrophils % 4 % 06/14/2024 11:38 AM EST [facility] Fluid Lymphocytes % 74 % 06/14/2024 11:38 AM EST [facility] Fluid Monocytes/Macrop hages 22 % 06/14/2024 11:38 AM EST [facility] Fluid Eosinophils % 0 % 06/14/2024 11:38 AM EST [facility] Fluid Basophils % 0 % 06/14/2024 11:38 AM [facility] Fluid Other Cells % 0 % 06/14/2024 11:38 AM [facility] Peritoneal Fluid Peritoneal cavity structure / Unknown Non-blood Collection / Unknown 06/14/2024 10:19 AM EST 06/14/2024 10:27 AM EST [facility] LAB - 06/14/2024 11:38 AM EST No reference ranges have been established for body fluids. Clinical correlation recommended. us Cristiana RAND LAB BODY FLUIDS AND STO OLS ORDERABLES Final Result [facility] [address] [place] [address], * Specific gravity, body fluid (06/14/2024 10:19 AM EST) Spec Grav, Fluid 1.014 06/14/2024 11:01 AM EST [facility] Peritoneal Fluid Non-blood Collection / Unknown 06/14/2024 10:19 AM EST 06/14/2024 10:26 AM EST [facility] LAB - 06/14/2024 11:01 AM EST No reference ranges have been established for body fluids. Clinical correlation recommended. Cristiana RAND LAB BODY FLUIDS AND STO OLS ORDERABLES Final Result Performing Organization Address [facility] Co de Phone Number [facility] [address] [place] [address], [place] [phone] * Protein, body fluid (06/14/2024 10:19 AM EST) Only the most recent of2 resultswithin the time period is included. Protein, Fluid 1.4 See Comment g/dL LAB CHEMISTRY METHOD 06/14/2024 11:19 AM EST [facility] Peritoneal Fluid Non-blood Collection / Unknown 06/14/2024 10:19 AM EST 06/14/2024 10:26 AM EST [facility] LAB - 06/14/2024 11:19 AM EST No reference ranges have been established for body fluids. Clinical correlation recommended. Cristiana RAND LAB BODY FLUIDS AND STO OLS ORDERABLES Final Result Performing Organization Address [facility] Co de Phone Number [facility] [address] [place] [address], [place] [phone] * Lactate dehydrogenase, body fluid (06/14/2024 10:19 AM EST) LD, Fluid 78 See Comment unit/L LAB CHEMISTRY METHOD 06/14/2024 11:42 AM EST [facility] Peritoneal Fluid Peritoneal cavity structure / Unknown Non-blood Collection / Unknown 06/14/2024 10:19 AM EST 06/14/2024 10:27 AM EST [facility] LAB - 06/14/2024 11:42 AM EST No reference ranges have been established for body fluids. Clinical correlation recommended. Cristiana RAND LAB BODY FLUIDS AND STO OLS ORDERABLES Final Result Performing Organization Address [facility]/ZIP Co de Phone Number [facility] [address] [place] [address], [place] [phone] * Glucose, body fluid (06/14/2024 10:19 AM EST) Glucose, Fluid 150 See Comment mg/dL LAB CHEMISTRY METHOD 06/14/2024 11:28 AM EST [facility] Ascites 06/14/2024 10:1 9 AM EST 06/14/2024 10:26 AM EST [facility] LAB - 06/14/2024 11:28 AM EST No reference ranges have been established for body fluids. Clinical correlation recommended. us Cristiana RAND LAB BODY FLUIDS AND STO OLS ORDERABLES Final Result Performing Organization Address [facility] de Phone Number [facility] [address] [place] [address], [place] [phone] * Amylase, body fluid (06/14/2024 10:19 AM EST) Amylase, Fluid 24 See Comment unit/L LAB CHEMISTRY METHOD 06/14/2024 11:19 AM EST [facility] Peritoneal Fluid Non-blood Collection / Unknown 06/14/2024 10:19 AM EST 06/14/2024 10:26 AM EST [facility] LAB - 06/14/2024 11:19 AM EST No reference ranges have been established for body fluids. Clinical correlation recommended. us Cristiana RAND LAB BODY FLUIDS AND STO OLS ORDERABLES Final Result Performing Organization Address [facility] Co de Phone Number [facility] [address] [place] [address], [place] [phone] * Albumin, body fluid (06/14/2024 10:19 AM EST) Only the most recent of2 resultswithin the time period is included. Albumin, Fluid 0.6 See Comment g/dL LAB CHEMISTRY METHOD 06/14/2024 11:19 AM [facility] Peritoneal Fluid Non-blood Collection / Unknown 06/14/2024 10:19 AM EST 06/14/2024 10:26 AM EST [facility] - 06/14/2024 11:19 AM EST No reference ranges have been established for body fluids. Clinical correlation recommended. us Cristiana RAND LAB BODY FLUIDS AND STO OLS ORDERABLES Final Result [facility] [address] [place] [address], [place] [phone] * Non-gynecologic cytology (06/14/2024 10:19 AM EST) Final Diagnosis A. Peritoneal fluid, paracentesis, (ThinPrep, cell block): Negative for malignant cells. 06/17/2024 4:30 PM [facility] Specimen A Adequacy Satisfactory for evaluation 06/17/2024 4:30 PM [facility] Gross Description A. Peritoneal Cavity, : Received 115 ml of yellow fluid; 1 ThinPrep, 1 Cell block Cell block in formalin @1500; total formalin fixation time 6 hours. 06/17/2024 4:30 PM [facility] Disclaimer Unless otherwise specified, all tissue is 10% NB formalin fixed and paraffin embedded. Technical cytopathology services provided by [facility], at [address] [place] [address] (CLIA # [id number]/Katya Lo MD, Medical Oncologist.) 06/17/2024 4:30 PM [facility] Peritoneal Fluid Peritoneal cavity structure / Unknown Non-blood Collection / Unknown 06/14/2024 10:19 AM EST 06/14/2024 2:30 PM EST us Cristiana RAND LAB CYTOLOGY ORDERABLES Final Result [facility] [address] [place] [address], [place] [phone] * [place] Paracentesis w Image Guidance (06/14/2024 [...] Signed Date: 06/15/2024 12:40 ET Workstation ID: [id number] Transcribed By: Self Edit Transcribed Date: 06/14/2024 11:29 ET Resident/PA/CLIENT SOLUTIONS MANAGER: Milady Chilel Narrative 06/15/2024 12:40 PM EST [...] Signed Date: 06/15/2024 12:40 ET Workstation ID: [id number] Transcribed By: Self Edit Transcribed Date: 06/14/2024 11:29 ET Resident/PA/CLIENT SOLUTIONS MANAGER: Milady Chilel us Cristiana RAND IMG US PROCEDURES Final Result * Lactate, with reflex (06/14/2024 5:26 AM EST) Only the most recent of3 resultswithin the time period is included. LACTIC ACID 1.6 0.4 - 2.0 mmol/L LAB CHEMISTRY METHOD 06/14/2024 6:03 AM EST [facility] ([facility]) [facility] Blood Venous blood specimen / Unknown Venipuncture / Unknown 06/14/2024 5:26 AM EST 06/14/2024 5:33 AM EST us Napoleon Neely MD LAB BLOOD ORDERABLES Final Re sult [facility] [address] [place] [address], [place] [phone] * Culture blood (06/14/2024 5:22 AM EST) Only the most recent of6 resultswithin the time period is included. Pathologist [facility] Culture, Blood No growth at 5 days 06/19/2024 6:01 AM [facility] Blood Venous blood specimen / Unknown Venipuncture / Unknown 06/14/2024 5:22 AM EST 06/14/2024 5:33 AM EST Napoleon Neely MD LAB MICROBIOLOGY - GENERAL OR DERABLES Final Result [facility] [address] [place] [address], [place] [phone] * (ABNORMAL) CBC auto differential (06/14/2024 5:14 AM EST) Only the most recent of6 resultswithin the time period is included. [facility] WBC 4.5(L) 4.8 - 10.8 K/mcL LAB HEMETOLOGY METHOD 06/14/2024 6:00 AM [facility] RBC 3.30(L) 4.50 - 5.50 M/mcL LAB HEMETOLOGY METHOD 06/14/2024 6:00 AM [facility] Hemoglobin 11.6(L) 13.5 - 17.5 g/dL LAB HEMETOLOGY METHOD 06/14/2024 6:00 AM [facility] Hematocrit 35.2(L) 42.0 - 54.0 % LAB HEMETOLOGY METHOD 06/14/2024 6:00 AM [facility] MCV 107.0(H) 79.0 - 98.0 FL LAB HEMETOLOGY METHOD 06/14/2024 6:00 AM [facility] MCH 35.3(H) 27.0 - 32.0 pcg LAB HEMETOLOGY METHOD 06/14/2024 6:00 AM [facility] MCHC 33.0 32.0 - 37.0 g/dL LAB HEMETOLOGY METHOD 06/14/2024 6:00 AM [facility] RDW 17.5(H) 11.0 - 15.0 % LAB HEMETOLOGY METHOD 06/14/2024 6:00 AM [facility] Platelets 77(L) 130 - 400 K/mcL LAB HEMETOLOGY METHOD 06/14/2024 6:00 AM [facility] Comment:previously verified by slide MPV 10.3 7.0 - 11.0 FL LAB HEMETOLOGY METHOD 06/14/2024 6:00 AM [facility] NRBC 0.0 <1.0 % LAB HEMETOLOGY METHOD 06/14/2024 6:00 AM [facility] NRBC Absolute 0.00 <0.10 K/mcL LAB HEMETOLOGY METHOD 06/14/2024 6:00 AM [facility] Neutrophils Relative 75.4 % LAB HEMETOLOGY METHOD 06/14/2024 6:00 AM [facility] Lymphocytes Relative 13.9 % LAB HEMETOLOGY METHOD 06/14/2024 6:00 AM [facility] Monocytes Relative 9.7 % LAB HEMETOLOGY METHOD 06/14/2024 6:00 AM [facility] Eosinophils Relative 0.4 % LAB HEMETOLOGY METHOD 06/14/2024 6:00 AM [facility] Basophils Relative 0.4 % LAB HEMETOLOGY METHOD 06/14/2024 6:00 AM [facility] Immature Granulocytes Relative 0.2 % LAB HEMETOLOGY METHOD 06/14/2024 6:00 AM [facility] Neutrophils Absolute 3.35 1.50 - 7.00 K/[facility] LAB HEMETOLOGY METHOD 06/14/2024 6:00 AM EST [facility] Lymphocytes Absolute 0.62(L) 1.00 - 5.00 K/[facility] LAB HEMETOLOGY METHOD 06/14/2024 6:00 AM EST [facility] Monocytes Absolute 0.43 0.20 - 1.00 K/[facility] LAB HEMETOLOGY METHOD 06/14/2024 6:00 AM EST [facility] Eosinophils Absolute 0.02 0.00 - 0.50 [facility] HEMETOLOGY METHOD 06/14/2024 6:00 AM EST [facility] Basophils Absolute 0.02 0.00 - 0.20 [facility] LAB HEMETOLOGY METHOD 06/14/2024 6:00 AM [facility] Immature Granulocytes Absolute 0.01 0.00 - 0.03 [facility] LAB HEMETOLOGY METHOD 06/14/2024 6:00 AM EST [facility] Blood Venous blood specimen / Unknown Venipuncture / Unknown 06/14/2024 5:14 AM EST 06/14/2024 5:34 AM EST Napoleon Neely MD LAB BLOOD ORDERABLES Final Re sult [facility] [address] [place] [address], * ECG-Annotated (06/14/2024) Only the most recent of3 resultswithin the time period is included. us Provider Onbase ECG ORDERABLES Final Result * Prostate specific antigen screen (06/13/2024 12:37 PM EST) PSA 0.18 0.00 - 4.00 ng/mL LAB CHEMISTRY METHOD 06/13/2024 2:31 PM EST [facility] Blood Venous blood specimen / Unknown Venipuncture / Unknown 06/13/2024 12:37 PM EST 06/13/2024 12:55 PM EST Narrative [facility] - 06/13/2024 2:31 PM EST The Siemens Advia Centaur Chemiluminescent Immunoassay is used. Results obtained with different assay methods or kits cannot be used interchangeably. Results cannot be interpreted as absolute evidence of the presence or absence of malignant disease. us Napoleon Neely MD LAB BLOOD ORDERABLES Final Re sult Performing Organization Address [facility] Co de Phone Number [facility] [address] [place] [address], [place] [phone] * (ABNORMAL) C-reactive protein (06/13/2024 12:37 PM EST) Only the most recent of2 resultswithin the time period is included. C-Reactive Protein 10.20(H) <=0.50 mg/dL LAB CHEMISTRY METHOD 06/13/2024 2:25 PM EST [facility] Blood Venous blood specimen / Unknown Venipuncture / Unknown 06/13/2024 12:37 PM EST 06/13/2024 12:55 PM EST us Napoleon Neely MD LAB BLOOD ORDERABLES Final Re sult Performing Organization Address [facility]/ZIP Co de Phone Number [facility] [address] [place] [address], [place] [phone] * (ABNORMAL) Hepatic function panel (06/13/2024 12:37 PM EST) Total Protein 5.9(L) 6.0 - 8.0 g/dL LAB CHEMISTRY METHOD 06/13/2024 2:25 PM EST [facility] Albumin 2.3(L) 3.2 - 5.0 g/dL LAB CHEMISTRY METHOD 06/13/2024 2:25 PM EST [facility] Total Bilirubin 2.6(H) 0.0 - 1.4 mg/dL LAB CHEMISTRY METHOD 06/13/2024 2:25 PM EST [facility] Bilirubin, Direct 1.4(H) 0.0 - 0.3 mg/dL LAB CHEMISTRY METHOD 06/13/2024 2:25 PM [facility] Bilirubin, Indirect 1.2(H) 0.0 - 1.1 mg/dL LAB CHEMISTRY METHOD 06/13/2024 2:25 PM EST [facility] ALT (SGPT) 20 10 - 60 unit/L LAB CHEMISTRY METHOD 06/13/2024 2:25 PM [facility] AST (SGOT) 32 10 - 42 unit/L LAB CHEMISTRY METHOD 06/13/2024 2:25 PM [facility] Alkaline Phosphatase 133(H) 42 - 121 unit/L LAB CHEMISTRY METHOD 06/13/2024 2:25 PM [facility] Blood Venous blood specimen / Unknown Venipuncture / Unknown 06/13/2024 12:37 PM EST 06/13/2024 12:55 PM EST Napoleon Neely MD LAB BLOOD ORDERABLES Final Re sult [facility] [address] [place] [address], * Troponin I high sensitivity (06/12/2024 6:44 AM EST) Only the most recent of4 resultswithin the time period is included. High Sensitivity Troponin I 17 <=79 ng/L LAB CHEMISTRY METHOD 06/12/2024 7:31 AM EST [facility] Blood Venous blood specimen / Unknown Venipuncture / Unknown 06/12/2024 6:44 AM EST 06/12/2024 6:58 AM EST [facility] - 06/12/2024 7:31 AM EST High levels of biotin in samples may falsely decrease hsTroponin values. ??Use caution when interpreting hsTroponin results in patients taking biotin who exhibit renal impairment (eGFR <60) or in patients taking more than 20 mg/day of biotin. us Nayeli RAND LAB BLOOD ORDERABLES Final Resu lt [facility] ([facility]) [facility] [address] [place] [address], [place] [phone] * CT Abdomen Pelvis w Contrast (06/12/2024 6:28 AM EST) Only the most recent of2 resultswithin the time period is included. Anatomical Region Laterality Modality Body Computed Tomogra phy 06/12/2024 7:06 AM EST Impressions 06/12/2024 7:06 AM EST Impression: Cirrhotic liver with portal hypertension including sbbklcnv-lt-ahhpm volume ascites, splenomegaly and varices. No apparent [...] Impression: Cirrhotic liver with portal hypertension including jjdnjnle-mp-qapkk volume ascites, splenomegaly and varices. No apparent [...] recommended in 3 months to assess stability. Mtzxm-xc-bxrpppkl size left pleural effusion and trace right [...] contour and moderate volume of ascites. Splenomegaly. Kuipl-pl-acxmgtsb size left pleural effusion and trace right [...] contour and moderate volume of ascites. Splenomegaly. Pvkfa-ay-rcjlypjq size left pleural effusion and trace right [...] recommended in 3 months to assess stability. Lbhll-ph-afahakvk size left pleural effusion and trace right [...] LAB COAGULATION METHOD 06/12/2024 5:38 AM EST [facility] INR 1.8 LAB COAGULATION METHOD 06/12/2024 5:38 AM EST [facility] Blood Venous blood specimen / Unknown Venipuncture / Unknown 06/12/2024 5:19 AM EST 06/12/2024 5:22 AM EST Nayeli RAND LAB BLOOD ORDERABLES Final Resu lt [facility] [address] [place] [address], [place] [phone] * B-type natriuretic peptide (06/12/2024 5:19 AM EST) Only the most recent of2 resultswithin the time period is included. [facility] BNP 95 <=100 pcg/mL LAB CHEMISTRY METHOD 06/12/2024 6:10 AM EST [facility] Blood Venous blood specimen / Unknown Venipuncture / Unknown 06/12/2024 5:19 AM EST 06/12/2024 5:22 AM EST Nayeli RAND LAB BLOOD ORDERABLES Final Resu lt [facility] [address] [place] [address], [place] [phone] * (ABNORMAL) Blood culture pathogens molecular study (06/12/2024 3:44 AM EST) [facility] Pseudomonas aeruginosa Detected (A) Not Detected LAB MICROBIOLOGY METHOD 06/13/2024 7:45 AM EST [facility] Blood Venous blood specimen / Unknown Venipuncture / Unknown 06/12/2024 3:44 AM EST 06/12/2024 3:51 AM EST Nayeli [facility] LAB MICROBIOLOGY - GENERAL ORDE RABLES Final Result Performing Organization Address City/[facility]/ZIP Co de Phone Number [facility] [address] [place] [address], [place] [phone] * (ABNORMAL) Lactate (06/12/2024 3:40 AM EST) Only the most recent of6 resultswithin the time period is included. [facility] Lactate 3.2(HH) 0.4 - 2.0 mmol/L LAB CHEMISTRY METHOD 06/12/2024 4:30 AM EST [facility] Blood Venous blood specimen / Unknown Venipuncture / Unknown 06/12/2024 3:40 AM EST 06/12/2024 3:51 AM EST us Nayeli RAND LAB BLOOD ORDERABLES Final Resu lt [facility] [address] [place] [address], [place] [phone] * (ABNORMAL) Urinalysis with reflex microscopic and culture (06/12/2024 1:15 AM EST) Only the most recent of2 resultswithin the time period is included. Specific [place] Urine 1.007 1.003 - 1.030 LAB URINALYSIS - AUTOMATED METHOD 06/12/2024 3:41 AM [facility] pH, Urine 6.0 5.0 - 8.0 pH LAB URINALYSIS - AUTOMATED METHOD 06/12/2024 3:41 AM [facility] Leukocytes, Urine Small(A) Negative LAB URINALYSIS - AUTOMATED METHOD 06/12/2024 3:41 AM [facility] Nitrite, Urine Negative Negative LAB URINALYSIS - AUTOMATED METHOD 06/12/2024 3:41 AM [facility] Protein, Urine Negative <=Trace mg/dL LAB URINALYSIS - AUTOMATED METHOD 06/12/2024 3:41 AM [facility] Glucose, Urine Negative Negative mg/dL LAB URINALYSIS - AUTOMATED METHOD 06/12/2024 3:41 AM [facility] Ketones, Urine Negative Negative mg/dL LAB URINALYSIS - AUTOMATED METHOD 06/12/2024 3:41 AM [facility] Urobilinogen, Urine 0.2 0.2 - 1.0 mg/dL LAB URINALYSIS - AUTOMATED METHOD 06/12/2024 3:41 AM [facility] Bilirubin, Urine Negative Negative LAB URINALYSIS - AUTOMATED METHOD 06/12/2024 3:41 AM [facility] Blood, Urine Large(A) Negative LAB URINALYSIS - AUTOMATED METHOD 06/12/2024 3:41 AM [facility] RBC, Urine 156.5(H) 0 - 4 /HPF LAB URINALYSIS - AUTOMATED METHOD 06/12/2024 3:41 AM [facility] WBC, Urine 16.6(H) 0 - 4 /HPF LAB URINALYSIS - AUTOMATED METHOD 06/12/2024 3:41 AM [facility] Squamous Epithelial, Urine 9 0 - 60 /LPF LAB URINALYSIS - AUTOMATED METHOD 06/12/2024 3:41 AM [facility] Bacteria, Urine Negative Negative /HPF LAB URINALYSIS - AUTOMATED METHOD 06/12/2024 3:41 AM [facility] Hyaline Casts, Urine 0.8 0 - 3 /LPF LAB URINALYSIS - AUTOMATED METHOD 06/12/2024 3:41 AM [facility] Urine Urine specimen obtained by clean catch procedure / Unknown Non-blood Collection / Unknown 06/12/2024 1:15 AM EST 06/12/2024 2:59 AM EST Nayeli RAND LAB URINE ORDERABLES Final Resu lt [facility] [address] [place] [address], * Pugh urine culture tube (06/12/2024 1:15 AM EST) Only the most recent of2 resultswithin the time period is included. Extra Tube Hold for add-ons. 06/12/2024 4:01 AM EST [facility] Comment:Auto resulted. Urine Urine specimen obtained by clean catch procedure / Unknown Non-blood Collection / Unknown 06/12/2024 1:15 AM EST 06/12/2024 2:59 AM EST Nayeli RAND LAB URINE ORDERABLES Final Resu lt Performing Organization Address [facility]/ZIP Co de Phone Number [facility] [address] [place] [address], * (ABNORMAL) Culture urine (06/12/2024 1:15 AM EST) Only the most recent of2 resultswithin the time period is included. Pathologist [facility] Culture, Urine >100,000 CFU/mL Pseudomonas aeruginosa(A) SAVANNAH 06/15/2024 9:00 AM EST [facility] Comment: This is an [...] DIFFUSION Nayeli RAND LAB MICROBIOLOGY - GENERAL ORDRiya OCASIO Final Result [facility] [address] [place] [address], * (ABNORMAL) Thyroid stimulating hormone (05/26/2024 6:59 AM EST) Pathologist [facility] TSH 5.20(H) 0.40 - 4.00 mcIU/mL LAB CHEMISTRY METHOD 05/26/2024 1:24 PM EST [facility] Blood Venous blood specimen / Unknown Venipuncture / Unknown 05/26/2024 6:59 AM EST 05/26/2024 10:29 AM EST us Gerry Barksdale LAB BLOOD ORDERABLES Final Resul t Performing Organization Address [facility] de Phone Number [facility] [address] [place] [address], [place] [phone] * Folate (05/26/2024 6:59 AM EST) [facility] Folate 4.3 2.8 - 17.0 ng/ml LAB CHEMISTRY METHOD 05/26/2024 1:39 PM EST [facility] Blood Venous blood specimen / Unknown Venipuncture / Unknown 05/26/2024 6:59 AM EST 05/26/2024 10:29 AM EST us Gerry Barksdale LAB BLOOD ORDERABLES Final Resul t Performing Organization Address [facility] de Phone Number [facility] [address] [place] [address], [place] [phone] * (ABNORMAL) Vitamin B12 (05/26/2024 6:59 AM EST) [facility] Vitamin B-12 1,309(H) 250 - 900 pcg/mL LAB CHEMISTRY METHOD 05/26/2024 1:39 PM EST [facility] Blood Venous blood specimen / Unknown Venipuncture / Unknown 05/26/2024 6:59 AM EST 05/26/2024 10:29 AM EST us Gerry Barksdale LAB BLOOD ORDERABLES Final Resul t Performing Organization Address [facility] de Phone Number [facility] [address] [place] [address], [place] [phone] * (ABNORMAL) Comprehensive metabolic panel (05/26/2024 6:59 AM EST) Only the most recent of4 resultswithin the time period is included. Sodium 133 133 - 145 mmol/L LAB CHEMISTRY METHOD 05/26/2024 1:16 PM [facility] Potassium 3.6 3.5 - 5.5 mmol/L LAB CHEMISTRY METHOD 05/26/2024 1:16 PM [facility] Chloride 95(L) 96 - 110 mmol/L LAB CHEMISTRY METHOD 05/26/2024 1:16 PM [facility] CO2 31 21 - 32 mmol/L LAB CHEMISTRY METHOD 05/26/2024 1:16 PM [facility] Anion Gap 7 3 - 11 LAB CHEMISTRY METHOD 05/26/2024 1:16 PM [facility] Glucose 116(H) 70 - 100 mg/dL LAB CHEMISTRY METHOD 05/26/2024 1:16 PM [facility] BUN 15 5 - 25 mg/dL LAB CHEMISTRY METHOD 05/26/2024 1:16 PM [facility] Creatinine 0.52(L) 0.70 - 1.30 mg/dL LAB CHEMISTRY METHOD 05/26/2024 1:16 PM [facility] eGFR 111 >=60 mL/min/1. 73m2 LAB CHEMISTRY METHOD 05/26/2024 1:16 PM [facility] Comment:Calculation based on the??Chronic Kidney Disease Epidemiology Collaboration (CKD-EPI) equation refit??without adjustment for race. BUN/Creatinine Ratio 28.8 LAB CHEMISTRY METHOD 05/26/2024 1:16 PM [facility] Calcium 8.2(L) 8.5 - 10.5 mg/dL LAB CHEMISTRY METHOD 05/26/2024 1:16 PM [facility] AST (SGOT) 27 10 - 42 unit/L LAB CHEMISTRY METHOD 05/26/2024 1:16 PM [facility] ALT (SGPT) 20 10 - 60 unit/L LAB CHEMISTRY METHOD 05/26/2024 1:16 PM [facility] Alkaline Phosphatase 139(H) 42 - 121 unit/L LAB CHEMISTRY METHOD 05/26/2024 1:16 PM EST [facility] Total Protein 6.0 6.0 - 8.0 g/dL LAB CHEMISTRY METHOD 05/26/2024 1:16 PM EST [facility] Albumin 2.3(L) 3.2 - 5.0 g/dL LAB CHEMISTRY METHOD 05/26/2024 1:16 PM EST [facility] Total Bilirubin 3.2(H) 0.0 - 1.4 mg/dL LAB CHEMISTRY METHOD 05/26/2024 1:16 PM EST [facility] Blood Venous blood specimen / Unknown Venipuncture / Unknown 05/26/2024 6:59 AM EST 05/26/2024 10:29 AM EST Gerry Barksdale LAB BLOOD ORDERABLES Final Resul t Performing Organization Address City/[facility]/ZIP Co de Phone Number [facility] [address] [place] [address], [place] [phone] * Vancomycin, trough (05/23/2024 12:10 PM EST) Only the most recent of3 resultswithin the time period is included. Vancomycin Trough 13.0 10.0 - 20.0 mcg/mL LAB CHEMISTRY METHOD 05/23/2024 12:59 PM EST [facility] Blood Venous blood specimen / Unknown Venipuncture / Unknown 05/23/2024 12:10 PM EST 05/23/2024 12:28 PM EST Hue RAND LAB BLOOD ORDERABLES Final Re sult [facility] [address] [place] [address], [place] [phone] * Lavender tube (05/23/2024 3:07 AM EST) Only the most recent of2 resultswithin the time period is included. Extra Tube Hold for add-ons. 05/23/2024 5:01 AM EST [facility] Comment:Auto resulted. Blood Venous blood specimen / Unknown 05/23/2024 3:07 AM EST 05/23/2024 3:19 AM EST us Chemo Reveles MD LAB BLOOD ORDERABLES Final Resu lt [facility] ([facility]) [facility] [address] [place] [address], [place] [phone] * Vascular US duplex lower extremity venous [...] Signed Date: 05/21/2024 09:23 ET Workstation ID: [id number] Transcribed By: Self Edit Transcribed Date: 05/21/2024 [...] Signed Date: 05/21/2024 09:23 ET Workstation ID: [id number] Transcribed By: Self Edit Transcribed Date: 05/21/2024 09:22 ET us Chemo Reveles MD CV VASCULAR PROCEDURES Final Re sult * (ABNORMAL) Thyroid stimulating hormone with reflex to free t4 and free t3 (05/21/2024 3:17 AM EST) Pathologist [facility] TSH 8.16(H) 0.40 - 4.00 mcIU/mL LAB CHEMISTRY METHOD 05/21/2024 3:59 AM EST [facility] Blood Venous blood specimen / Unknown Venipuncture / Unknown 05/21/2024 3:17 AM EST 05/21/2024 3:23 AM EST us Chemo Reveles MD LAB BLOOD ORDERABLES Final Resu lt [facility] [address] [place] [address], [place] [phone] * Free thyroxine with reflex to free triiodothyronine (05/21/2024 3:17 AM EST) Pathologist [facility] Free T4 1.02 0.70 - 1.80 ng/dL LAB CHEMISTRY METHOD 05/21/2024 4:25 AM EST [facility] Blood Venous blood specimen / Unknown Venipuncture / Unknown 05/21/2024 3:17 AM EST 05/21/2024 3:23 AM EST us Chemo Reveles MD LAB BLOOD ORDERABLES Final Resu lt Performing Organization Address City/[facility]/ZIP Co de Phone Number [facility] [address] [place] [address], [place] [phone] * Triiodothyronine free (05/21/2024 3:17 AM EST) T3, Free 249 230 - 420 pcg/dL LAB CHEMISTRY METHOD 05/21/2024 4:50 AM EST [facility] Blood Venous blood specimen / Unknown Venipuncture / Unknown 05/21/2024 3:17 AM EST 05/21/2024 3:23 AM EST us Chemo Reveles MD LAB BLOOD ORDERABLES Final Resu lt Performing Organization Address [facility] de Phone Number [facility] [address] [place] [address], [place] [phone] * Hemoglobin A1c (05/21/2024 3:17 AM EST) [...] ORDERABLES Final Resu lt Performing Organization Address City/[facility]/ZIP Co de Phone Number [facility] [address] [place] [address], * (ABNORMAL) POCT Glucose, blood (05/20/2024 8:37 AM EST) Glucose POCT 162(H) 70 - 100 mg/dL 05/20/2024 8:37 AM EST [facility] Blood Capillary blood specimen / Unknown 05/20/2024 8:37 AM EST 05/20/2024 8:38 AM EST us Chemo Reveles MD LAB POINT OF CARE TE ST DOCKED DEVICE UNSOLICITED RESULTS Final Result Performing Organization Address [facility] de Phone Number [facility] [address] [place] [address], * (ABNORMAL) Sedimentation rate (05/20/2024 6:09 AM EST) [facility] Sed Rate 35(H) 0 - 20 mm/hr LAB HEMETOLOGY METHOD 05/20/2024 2:00 PM EST [facility] Blood Venous blood specimen / Unknown Venipuncture / Unknown 05/20/2024 6:09 AM EST 05/20/2024 6:32 AM EST us Chemo Reveles MD LAB BLOOD ORDERABLES Final Resu lt Performing Organization Address City/[facility]/ZIP Co de Phone Number [facility] [address] [place] [address], [place] [phone] * XR Chest 2 Views (05/19/2024 6:51 PM EST) Anatomical Region Laterality Modality Body Radiographic Esmer ging 05/20/2024 8:05 AM EST Impressions 05/20/2024 8:06 AM EST Small-moderate left pleural effusion. -------- FINAL REPORT -------- Dictated By: Frank Vivar Dictated Date: 05/20/2024 08:05 ET Assigned Physician: Frank Vivar Reviewed and Electronically Signed By: Frank Vivar Signed Date: 05/20/2024 08:06 ET Workstation ID: [id number] Transcribed By: Self Edit Transcribed Date: 05/20/2024 [...] Signed Date: 05/20/2024 08:06 ET Workstation ID: [id number] Transcribed By: Self Edit Transcribed Date: 05/20/2024 08:05 ET us Hue RAND IMG XR PROCEDURES Final Resul t * (ABNORMAL) Lipase (05/19/2024 4:10 PM EST) Lipase 76(H) 13 - 75 unit/L LAB CHEMISTRY METHOD 05/19/2024 4:59 PM EST [facility] Blood Venous blood specimen / Unknown Venipuncture / Unknown 05/19/2024 4:10 PM EST 05/19/2024 4:25 PM EST Emily Colby Stalin Singh DO LAB BLOOD ORDERABLES Berenice l Result Performing Organization Address [facility] de Phone Number [facility] [address] [place] [address], [place] [phone] * Alpha fetoprotein tumor marker (04/07/2024 11:53 AM EST) Pathologist [facility] AFP 4.2 0.0 - 8.0 ng/mL LAB CHEMISTRY METHOD 04/07/2024 3:03 PM EST [facility] Blood Venous blood specimen / Unknown Venipuncture / Unknown 04/07/2024 11:53 AM EST 04/07/2024 11:53 AM EST Narrative [facility] - 04/07/2024 3:03 PM EST The Siemens Advia Centaur Chemiluminescent Immunoassay is used. Results obtained with different assay methods or kits cannot be used interchangeably. Results cannot be interpreted as absolute evidence of the presence or absence of malignant disease. Han Sloan DO LAB BLOOD ORDERABLES Final Resul t Performing Organization Address [facility] Co de Phone Number [facility] [address] [place] [address], [place] [phone] * Ferritin (04/07/2024 11:53 AM EST) Ferritin 118 26 - 388 ng/mL LAB CHEMISTRY METHOD 04/07/2024 3:00 PM EST [facility] Blood Venous blood specimen / Unknown Venipuncture / Unknown 04/07/2024 11:53 AM EST 04/07/2024 11:53 AM EST us Han Luther DO LAB BLOOD ORDERABLES Final Resul t [facility] [address] [place] [address], from Last 3 Months Insurance [facility] Member Subscriber Plan / Payer (Ef fective 2023-Present) Name:Reed Jonny Relation to Subscriber:Self Name:Reed Jonny Payer ID:[id number] Group ID:[id number] Type:Not on file Address: [place] [address] [address] [phone] Advance Directives Documents on File Type Date Recorded Patient Audio Narrator Expl anation Advance Directives and Living Will [...] Healthcare Agent Relationshi p Communication Elinor Cortez Surveyor Health Care Agent Care Teams Mental Health Aide Relationship Specialty Start Date End Date Dalia Harmon PA [address] [place] [address], [address] [place] [address] PCP - General 05/10/24
--- OUTSIDE RECORDS SUMMARY | 2024-07-01 13:00 | XMS_ITS | Encounter Summary ---
Author Organization [facility] Address [address] [place] [address] Care Team Providers Care Housing Counselor Name Role Phone Dalia Harmon Primary Care Provider [phone] Encounter Details Date Type Department Care Team (Late Contact Info) Description 03/12/2024 Lab Requisition [facility] Lab [address] [place] [phone] Gerry Barksdale [address] [place] [address] [phone] [place] [address] Essential (primary) hypertension Social History Tobacco Use [...] Encounters Date Type Department Care Team (Late Contact Info) Description 07/06/2024 1:00 PM EDT Appointment [facility] Interventional Radiology [address] [place] [phone] 08/26/2024 8:30 AM EDT Office Visit Gastroenterology [facility] [address] [facility] [address] [place] [phone] Han Sloan DO [address] [place] [address] documented as of this encounter Visit Diagnoses Diagnosis Essential (primary) hypertension Unspecified essential hypertension documented in this encounter Care Teams Housing Counselor Relationship Specialty Start Date End Date Dalia Harmon PA [address] [place] [address], [address] [place] [address] PCP - General 05/10/24 documented as of this encounter
--- OUTSIDE RECORDS SUMMARY | 2024-07-01 13:00 | XMS_ITS | Encounter Summary ---
Author Organization [facility] Address [address] [place] [address] Care Team Providers Care Learning Disabilities Specialist Name Role Phone Dalia Harmon Primary Care Provider [phone] Encounter Details Date Type Department Care Team (Late Contact Info) Description 03/05/2024 Lab Requisition [facility] - Main Lab 299 [facility] [place] [address] Gerry Barksdale MD [address] [address] Essential (primary) hypertension Social History Tobacco Use [...] [facility] Interventional Radiology [address] [place] [phone] 08/26/2024 8:30 AM EDT Office Visit Gastroenterology - [place] 175 [facility] 175 [facility] 200 [place] [address] Han Sloan DO 175 [facility] 200 [place] [address] documented as of this encounter Procedures Procedure Name Priority Date/Time Associated Diagnosis Comments COMPLETE BLOOD COUNT Routine 03/08/2024 9:48 AM EST Essential (primary) hypertension BASIC METABOLIC PANEL Routine 03/08/2024 9:48 AM EST Essential (primary) hypertension documented in this encounter Results * (ABNORMAL) Basic metabolic panel (03/08/2024 9:48 AM EST) Sodium 138 133 - 145 mmol/L LAB CHEMISTRY METHOD 03/08/2024 1:[address] [facility] Potassium 4.2 3.5 - 5.5 mmol/L LAB CHEMISTRY METHOD 03/08/2024 1:[address] [facility] Chloride 102 96 - 110 mmol/L LAB CHEMISTRY METHOD 03/08/2024 1:[address] [facility] CO2 26 21 - 32 mmol/L LAB CHEMISTRY METHOD 03/08/2024 1:[address] [facility] Anion Gap 10 3 - 11 LAB CHEMISTRY METHOD 03/08/2024 1:[address] [facility] Glucose 186(H) 70 - 100 mg/dL LAB CHEMISTRY METHOD 03/08/2024 1:[address] [facility] BUN 14 5 - 25 mg/dL LAB CHEMISTRY METHOD 03/08/2024 1:[address] [facility] Creatinine 0.76 0.70 - 1.30 mg/dL LAB CHEMISTRY METHOD 03/08/2024 1:[address] [facility] eGFR 99 >=60 mL/min/1. 73m2 LAB CHEMISTRY METHOD 03/08/2024 1:[address] [facility] Comment:Calculation based on the??Chronic Kidney Disease Epidemiology Collaboration (CKD-EPI) equation refit??without adjustment for race. BUN/Creatinine Ratio 18.4 LAB CHEMISTRY METHOD 03/08/2024 1:[address] [facility] Calcium 8.7 8.5 - 10.5 mg/dL LAB CHEMISTRY METHOD 03/08/2024 1:[address] [facility] Blood Venous blood specimen / Unknown Venipuncture / Unknown 03/08/2024 9:48 AM EST 03/08/2024 11:22 AM EST us Gerry Barksdale MD LAB BLOOD ORDERABLES Final Re sult [facility] [address] [place] [address], * (ABNORMAL) Complete blood count (03/08/2024 9:48 AM EST) WBC 4.6(L) 4.8 - 10.8 K/mcL LAB HEMETOLOGY METHOD 03/08/2024 12:[address] [facility] RBC 4.20(L) 4.50 - 5.50 M/mcL LAB HEMETOLOGY METHOD 03/08/2024 12:[address] [facility] Hemoglobin 14.5 13.5 - 17.5 g/dL LAB HEMETOLOGY METHOD 03/08/2024 12:[address] [facility] Hematocrit 44.1 42.0 - 54.0 % LAB HEMETOLOGY METHOD 03/08/2024 12:[address] [facility] MCV 105.3(H) 79.0 - 98.0 FL LAB HEMETOLOGY METHOD 03/08/2024 12:[address] [facility] MCH 34.6(H) 27.0 - 32.0 pcg LAB HEMETOLOGY METHOD 03/08/2024 12:[address] [facility] MCHC 32.9 32.0 - 37.0 g/dL LAB HEMETOLOGY METHOD 03/08/2024 12:55 PM EST [facility] RDW 14.7 11.0 - 15.0 % LAB HEMETOLOGY METHOD 03/08/2024 12:[address] [facility] Platelets 102(L) 130 - 400 K/mcL LAB HEMETOLOGY METHOD 03/08/2024 12:[address] [facility] MPV 11.3(H) 7.0 - 11.0 FL LAB HEMETOLOGY METHOD 03/08/2024 12:[address] [facility] NRBC 0.0 <1.0 % LAB HEMETOLOGY METHOD 03/08/2024 12:[address] [facility] NRBC Absolute 0.00 <0.10 K/mcL LAB HEMETOLOGY METHOD 03/08/2024 12:[address] [facility] Blood Venous blood specimen / Unknown Venipuncture / Unknown 03/08/2024 9:48 AM EST 03/08/2024 11:22 AM EST us Gerry Barksdale MD LAB BLOOD ORDERABLES Final Re sult [facility] [address] [place] [address], documented in this encounter Visit Diagnoses Diagnosis Essential (primary) hypertension Unspecified essential hypertension documented in this encounter Care Teams Learning Disabilities Specialist Relationship Specialty Start Date End Date Dalia Harmon PA 2 [facility], [address] [place] [address] PCP - General 05/10/24 documented as of this encounter
--- OUTSIDE RECORDS SUMMARY | 2024-07-01 13:00 | XMS_ITS | Encounter Summary ---
Author Organization [facility] Address [address] [place] [address] Care Team Providers Care Creel Operator Name Role Phone Dalia Harmon Primary Care Provider [phone] Reason for Visit * Reason Comments Cirrhosis Encounter Details Date Type Department Care Team (Late st Contact Info) Description 06/24/2024 11:20 AM EST Office Visit Gastroenterology - [place] [address] [place] [phone] Han Sloan DO [address] [place] [address] Cirrhosis of liver with ascites, unspecified hepatic [...] 64-year-old male who is following up at [facility] for management of ascites. Please refer to [...] COLONOSCOPY N/A PROCEDURE: HISTORICAL COLONOSCOPY ESOPHAGOGASTRODUODENOSCOPY PROCEDURE: MA ESOPHAGOGASTRODUODENOSCOPY TRANSORAL DIAGNOSTIC OTHER SURGICAL HISTORY Right PROCEDURE: [place] STAB PHLEBT VARICOSE VEINS 1 XTR > [...] and Internal Medicine Gastroenterology and Hepatology Practice [email or web address] [email or web address] W [phone] 175 [facility]. [address] [place] [address] [email or web address] cc: No ref. provider found, GIORGI Hummel documented in this encounter Plan of Treatment Upcoming Encounters Date Type Department Care Team (Late st Contact Info) Description 07/06/2024 1:00 PM EDT Appointment [facility] Interventional Radiology [address] [place] [phone] 08/26/2024 8:30 AM EDT Office Visit Gastroenterology - [place] [address] [facility] [address] [place] [phone] Han Sloan DO 175 [facility] [address] [place] [address] documented as of this encounter Visit Diagnoses Diagnosis Cirrhosis of liver with ascites, unspecified hepatic cirrhosis type (CMS/HCC)- Primary Other ascites Deep vein thrombosis of portal vein Portal vein thrombosis documented in this encounter Care Teams Creel Operator Relationship Specialty Start Date End Date Dalia Harmon PA [address] [place] [address], [address] [place] [address] PCP - General 05/10/24 documented as of this encounter
--- OUTSIDE RECORDS SUMMARY | 2024-07-01 13:00 | XMS_ITS | Encounter Summary ---
Author Organization [facility] Address [address] [place] [address] Care Team Providers Care Hydraulics Engineer Name Role Phone Dalia Harmon Primary Care Provider [phone] Reason for Visit * Reason Onset Date Comments provider call back 06/14/2024 Encounter Details Date Type Department Care Team (Late st Contact Info) Description 06/14/2024 Telephone Gastroenterology - [place] [address] [place] [address] Han Sloan DO [address] [place] [address] provider call back Social History Tobacco Use [...] Description 07/06/2024 1:[address] [facility] Interventional Radiology [address] [place] [phone] 08/26/2024 8:30 AM EDT Office Visit Gastroenterology - [place] [address] [facility] [address] [facility] [address] [place] [phone] Han Sloan DO [address] [address] documented as of this encounter Visit Diagnoses Not on filedocumented in this encounter Care Teams Hydraulics Engineer Relationship Specialty Start Date End Date Dalia Harmon PA [address] [place] [address], [address] [place] [address] PCP - General 05/10/24 documented as of this encounter
--- OUTSIDE RECORDS SUMMARY | 2024-07-01 13:00 | XMS_ITS | Encounter Summary ---
Author Organization [facility] Address [address] [place] [address] Care Team Providers Care Paper Feeder Name Role Phone Dalia Harmon Primary Care Provider [phone] Reason for Visit * Reason Onset Date Comments TESTING 06/03/2024 Encounter Details Date Type Department Care Team (Late st Contact Info) Description 06/03/2024 Telephone Gastroenterology - [place] [address] [place] [address] Han Sloan DO [address] [place] [address] TESTING Social History Tobacco Use Types Packs/Day [...] [facility] Inter[facility] Radiology [address] [place] [address] 08/26/2024 8:30 AM EDT Office Visit Gastroenterology - [place] [address] [facility] [address] [place] [phone] Han Sloan DO 175 [facility] [address] [place] [address] documented as of this encounter Visit Diagnoses Not on filedocumented in this encounter Care Teams Paper Feeder Relationship Specialty Start Date End Date Dalia Harmon PA [address] [place] [address], [address] [place] [address] PCP - General 05/10/24 documented as of this encounter
--- OUTSIDE RECORDS SUMMARY | 2024-07-01 13:00 | XMS_ITS | Encounter Summary ---
Author Organization [facility] Address [address] [place] [address] Care Team Providers Care Waste Collector Name Role Phone Dalia Harmon Primary Care Provider [phone] Encounter Details Date Type Department Care Team (Late Contact Info) Description 06/04/2024 Lab Requisition [facility] - Main Lab 299 [place] [phone] Gerry Barksdale [address] [place] [address] [phone] [place] [phone] Sepsis, unspecified organism (CMS/HCC) Social History Tobacco [...] Info) Description 07/06/2024 1:00 PM EDT Appointment [facility] Interventional Radiology [address] [place] [phone] 08/26/2024 8:30 AM EDT Office Visit Gastroenterology - [place] [address] [place] [phone] Han Sloan DO [address] [place] [address] documented as of this encounter Procedures Procedure Name Priority Date/Time Associated Diagnosis Comments COMPLETE BLOOD COUNT Routine 06/07/2024 10:48 AM EST Sepsis, unspecified organism (CMS/HCC) BASIC METABOLIC PANEL Routine 06/07/2024 10:48 AM EST Sepsis, unspecified organism (CMS/HCC) documented in this encounter Results * (ABNORMAL) Basic metabolic panel (06/07/2024 10:48 AM EST) Sodium 137 133 - 145 mmol/L LAB CHEMISTRY METHOD 06/07/2024 12:53 PM [facility] Potassium 3.6 3.5 - 5.5 mmol/L LAB CHEMISTRY METHOD 06/07/2024 12:53 PM [facility] Chloride 103 96 - 110 mmol/L LAB CHEMISTRY METHOD 06/07/2024 12:53 PM [facility] CO2 25 21 - 32 mmol/L LAB CHEMISTRY METHOD 06/07/2024 12:53 PM [facility] Anion Gap 9 3 - 11 LAB CHEMISTRY METHOD 06/07/2024 12:53 PM [facility] Glucose 142(H) 70 - 100 mg/dL LAB CHEMISTRY METHOD 06/07/2024 12:53 PM [facility] BUN 9 5 - 25 mg/dL LAB CHEMISTRY METHOD 06/07/2024 12:53 PM [facility] Creatinine 0.58(L) 0.70 - 1.30 mg/dL LAB CHEMISTRY METHOD 06/07/2024 12:53 PM [facility] eGFR 108 >=60 mL/min/1. 73m2 LAB CHEMISTRY METHOD 06/07/2024 12:53 PM [facility] Comment:Calculation based on the??Chronic Kidney Disease Epidemiology Collaboration (CKD-EPI) equation refit??without adjustment for race. BUN/Creatinine Ratio 15.5 LAB CHEMISTRY METHOD 06/07/2024 12:53 PM [facility] Calcium 8.0(L) 8.5 - 10.5 mg/dL LAB CHEMISTRY METHOD 06/07/2024 12:53 PM [facility] Blood Venous blood specimen / Unknown Venipuncture / Unknown 06/07/2024 10:48 AM EST 06/07/2024 12:01 PM EST Gerry Barksdale LAB BLOOD ORDERABLES Final Resul t [facility] [address] [place] [address], * (ABNORMAL) Complete blood count (06/07/2024 10:48 AM EST) WBC 4.4(L) 4.8 - 10.8 K/mcL LAB HEMETOLOGY METHOD 06/07/2024 1:06 PM [facility] RBC 3.40(L) 4.50 - 5.50 M/mcL LAB HEMETOLOGY METHOD 06/07/2024 1:06 PM [facility] Hemoglobin 12.0(L) 13.5 - 17.5 g/dL LAB HEMETOLOGY METHOD 06/07/2024 1:06 PM [facility] Hematocrit 36.4(L) 42.0 - 54.0 % LAB HEMETOLOGY METHOD 06/07/2024 1:06 PM [facility] MCV 105.8(H) 79.0 - 98.0 FL LAB HEMETOLOGY METHOD 06/07/2024 1:06 PM [facility] MCH 34.9(H) 27.0 - 32.0 pcg LAB HEMETOLOGY METHOD 06/07/2024 1:06 PM EST [facility] MCHC 33.0 32.0 - 37.0 g/dL LAB HEMETOLOGY METHOD 06/07/2024 1:06 PM [facility] RDW 18.0(H) 11.0 - 15.0 % LAB HEMETOLOGY METHOD 06/07/2024 1:06 PM [facility] Platelets 108(L) 130 - 400 K/mcL LAB HEMETOLOGY METHOD 06/07/2024 1:06 PM [facility] MPV 10.7 7.0 - 11.0 FL LAB HEMETOLOGY METHOD 06/07/2024 1:06 PM [facility] NRBC 0.0 <1.0 % LAB HEMETOLOGY METHOD 06/07/2024 1:06 PM [facility] NRBC Absolute 0.00 <0.10 K/mcL LAB HEMETOLOGY METHOD 06/07/2024 1:06 PM [facility] Blood Venous blood specimen / Unknown Venipuncture / Unknown 06/07/2024 10:48 AM EST 06/07/2024 12:01 PM EST Gerry Barksdale LAB BLOOD ORDERABLES Final Resul t [facility] [address] [place] [address], documented in this encounter Visit Diagnoses Diagnosis Sepsis, unspecified organism (CMS/HCC) documented in this encounter Care Teams Waste Collector Relationship Specialty Start Date End Date Dalia Harmon PA [address] [place] [address], [address] [place] [address] PCP - General 05/10/24 documented as of this encounter
--- OUTSIDE RECORDS SUMMARY | 2024-07-01 13:00 | XMS_ITS | Continuity of Care Document ---
Author Organization [email or web address] Address [address] [place] [address] Care Team Providers Care Bar Tacker Sewing Machine Name Role Phone HIM [facility] Primary Care Provider Assessment Encounter Date Assessment Date Assessment LastModified by Organization Details LastModified Time 06/10/2024 06/10/2024 I have reviewed and agree with the assessment and plan as documented by the supervisory it specialist. I provided real-time medical direction for this encounter and was immediately available to provide additional phone-based assistance as needed. HPI: 64M presenting with malfunctioning catheter, leaking. No other symptoms noted. Was recently tested for UTI and was negative. VSS. Exam otherwise unremarkable per the supervisory it specialist. Able to reinsert catheter to have appropriate [...] Name and Address Organization Details Recorded Time 36989 semagluti de medicatio n Not available Not available Not available 03/18/2024 RxNorm Not Available [facility] 18:27:38 51620 nystatin medicatio n Not available Not available Not available 06/10/2024 7597 RxNorm Not Available [facility] - production 5 20:32:41 47998 codeine medicatio n Not available Not available Not available 06/10/2024 2670 RxNorm Not Available [facility] - production 5 20:32:41 Medications Name Sig [...] SNOMED-CT Code Diagnosis ICD10 Code Diagnosis Note [id number] Yasmeen Redmond MD Main - [facility] [address] [place] [phone] 06/10/2024 20:56:07 06/10/2024 21:35:04 Indwelling urethral urinary catheter in situ 352435132 Z96.0 Health Concerns Section Related Observation LastModified by Organization Detai ls LastModified Time None Recorded Concern Status LastModified by Organization Details LastModified Time None Recorded Payers Encounter Date Sequence Insurance Name Policy Number Policy Pan Covered Member ID Pan Member ID Guarantor Name 06/10/2024 1 [facility] - DOS ON OR AFTER 2022 - DUAL ELIGIBLE - FDC OPTIONS AND ONE CARE (MEDICARE REPLACEMENT/ADV ANTAGE - HMO) Jonny Reed [id number] Jonny Reed Notes Date Note Type Note [...] ................. ................. ................. ................. ................. ................. ..... Appliance Adjuster Note From Harley Rodriguez: Dispatched to above [...] urine not obviously displaced, no active leaking. [facility] contacted, advised of patient complaints and exam findings. Catheter balloon drained 10ml sterile water, re-inflated, patient reported discomfort, catheter advanced and re-inflated without pain, urine moving in tubing, patient denies discomfort. [facility] advised of catheter troubleshooting, recommends home monitoring with follow up should leaking continue. Patient agrees with this plan. Patient has no additional questions or concerns at this time. SC8 clear. EOR. ................. ................. ................. ................. ................. ................. ................. ................. ..... [facility] Consulted: Yasmeen Redmond ................. ................. ................. ................. ................. ................. ................. ................. ..... Disposition: Fulfilled Yasmeen Redmond MD [address] [place] [address],[facility], [place], [address], RADHA - ANNE FRY 06/10/2024 21:28:25
--- OUTSIDE RECORDS SUMMARY | 2024-07-01 13:00 | XMS_ITS | Encounter Summary ---
Author Organization [facility] Address [address] [place] [address] Care Team Providers Care Shop Fitter Name Role Phone Dalia Harmon Primary Care Provider [phone] Encounter Details Date Type Department Care Team (Late Contact Info) Description 03/04/2024 Lab Requisition [facility] - Main Lab 299 [facility] [place] [address] Gerry Barksdale MD [address] [address] Vitamin D deficiency, unspecified; Type 2 diabetes [...] Info) Description 07/06/2024 1:00 PM EDT Appointment [facility] Interventional Radiology [address] [place] [phone] 08/26/2024 8:30 AM EDT Office Visit Gastroenterology - [place] [address] [place] [phone] Han Sloan DO [address] [place] [address] documented as of this encounter Procedures Procedure [...] D 25 hydroxy (03/04/2024 9:21 AM EST) [facility] Vit D, 25-Hydroxy 33.8 30.0 - 80.0 ng/mL LAB CHEMISTRY METHOD 03/04/2024 12:40 PM EST [facility] Blood Venous blood specimen / Unknown Venipuncture / Unknown 03/04/2024 9:21 AM EST 03/04/2024 11:40 AM EST us Gerry Barksdale MD LAB BLOOD ORDERABLES Final Re sult Performing Organization Address [facility]/ZIP Co de Phone Number [facility] [address] [place] [address], [place] [phone] * Hemoglobin A1c (03/04/2024 9:21 AM EST) Hemoglobin A1C 4.7 <6.5 % LAB CHEMISTRY METHOD 03/04/2024 2:46 PM EST [facility] Mean Bld Glu Estim. 88 mg/dL LAB CHEMISTRY METHOD 03/04/2024 2:46 PM [facility] Blood Venous blood specimen / Unknown Venipuncture / Unknown 03/04/2024 9:21 AM EST 03/04/2024 11:40 AM EST us Gerry Barksdale MD LAB BLOOD ORDERABLES Final Re sult Performing Organization Address [facility] de Phone Number [facility] [address] [place] [address], [place] [phone] * (ABNORMAL) Vitamin B12 (03/04/2024 9:21 AM EST) Pathologist [facility] Vitamin B-12 923(H) 250 - 900 pcg/mL LAB CHEMISTRY METHOD 03/04/2024 1:03 PM EST [facility] Blood Venous blood specimen / Unknown Venipuncture / Unknown 03/04/2024 9:21 AM EST 03/04/2024 11:40 AM EST us Gerry Barksdale MD LAB BLOOD ORDERABLES Final Re sult Performing Organization Address City/[facility]/ZIP Co de Phone Number [facility] [address] [place] [address], [place] [phone] * Folate (03/04/2024 9:21 AM EST) [facility] Folate 11.0 2.8 - 17.0 ng/ml LAB CHEMISTRY METHOD 03/04/2024 1:03 PM [facility] Blood Venous blood specimen / Unknown Venipuncture / Unknown 03/04/2024 9:21 AM EST 03/04/2024 11:40 AM EST us Gerry Barksdale MD LAB BLOOD ORDERABLES Final Re sult Performing Organization Address City/[facility]/ZIP Co de Phone Number [facility] [address] [place] [address], [place] [phone] * Thyroid stimulating hormone (03/04/2024 9:21 AM EST) [facility] TSH 3.12 0.40 - 4.00 mcIU/mL LAB CHEMISTRY METHOD 03/04/2024 12:40 PM [facility] Blood Venous blood specimen / Unknown Venipuncture / Unknown 03/04/2024 9:21 AM EST 03/04/2024 11:40 AM EST us Gerry Barksdale MD LAB BLOOD ORDERABLES Final Re sult Performing Organization Address City/[facility]/ZIP Co de Phone Number [facility] [address] [place] [address], [place] [phone] * (ABNORMAL) Comprehensive metabolic panel (03/04/2024 9:21 AM EST) [facility] Sodium 137 133 - 145 mmol/L [...] 9:21 AM EST 03/04/2024 11:40 AM EST Grery Barksdale MD LAB BLOOD ORDERABLES Final Re sult [facility] [address] [place] [address], * (ABNORMAL) Complete blood count (03/04/2024 9:21 [...] g/dL LAB HEMETOLOGY METHOD 03/04/2024 11:58 AM EST [facility] RDW 14.3 11.0 - 15.0 % LAB HEMETOLOGY METHOD 03/04/2024 11:58 AM [facility] Platelets 101(L) 130 - 400 K/mcL LAB HEMETOLOGY METHOD 03/04/2024 11:58 AM [facility] MPV 11.0 7.0 - 11.0 FL LAB HEMETOLOGY METHOD 03/04/2024 11:58 AM EST [facility] NRBC 0.0 <1.0 % LAB HEMETOLOGY METHOD 03/04/2024 11:58 AM [facility] NRBC Absolute 0.00 <0.10 K/mcL LAB HEMETOLOGY METHOD 03/04/2024 11:58 AM [facility] Blood Venous blood specimen / Unknown Venipuncture / Unknown 03/04/2024 9:21 AM EST 03/04/2024 11:40 AM EST us Gerry Barksdale MD LAB BLOOD ORDERABLES Final Re sult [facility] [address] [place] [address], documented in this encounter Visit Diagnoses Diagnosis Vitamin D deficiency, unspecified Type 2 diabetes mellitus without complications (CMS/HCC) Essential (primary) hypertension Unspecified essential hypertension documented in this encounter Care Teams Shop Fitter Relationship Specialty Start Date End Date Dalia Harmon PA [address], [address] [place] [address] PCP - General 05/10/24 documented as of this encounter
--- OUTSIDE RECORDS SUMMARY | 2024-07-01 13:00 | XMS_ITS | Clinical Summary ---
Author Organization [facility] Address [address] [place] [address] Care Team Providers Care Customer Account Administrator Name Role Phone Dago Ferro MD Primary Care Provider [phone] Allergies No known active allergies Medications Medication [...] age to complete this topic Care Teams Customer Account Administrator Relationship Specialty Start Date End Date Dago Ferro MD PCP - General Internal Medicine 03/23/19
--- OUTSIDE RECORDS SUMMARY | 2024-07-01 13:00 | XMS_ITS | Encounter Summary ---
Author Organization [facility] Address [address] [place] [address] Care Team Providers Care Hand Fur Cleaner Name Role Phone Dalia Harmon Primary Care Provider [phone] Reason for Visit * Reason Onset Date Comments Appointment 06/29/2024 Upcoming Echo Encounter Details Date Type Department Care Team ([facility] st Contact Info) Description 06/29/2024 Telephone Gastroenterology - [place] [address] [place] [address] Han Sloan DO [address] [place] [address] Appointment (Upcoming Echo) Social History Tobacco Use [...] Info) Description 07/06/2024 1:00 PM EDT Appointment [facility] Interventional Radiology [address] [place] [phone] 08/26/2024 8:30 AM EDT Office Visit Gastroenterology - [place] 175 [facility] [address] [facility] [address] [place] [phone] Han Sloan DO 175 [facility] [address] [place] [address] documented as of this encounter Visit Diagnoses Not on filedocumented in this encounter Care Teams Hand Fur Cleaner Relationship Specialty Start Date End Date Dalia Harmon PA [address], [address] [place] [address] PCP - General 05/10/24 documented as of this encounter
--- OUTSIDE RECORDS SUMMARY | 2024-07-01 13:00 | XMS_ITS | Encounter Summary ---
Author Organization [facility] Address [id number] [place] [phone] Care Team Providers Care Vehicle Window Tinter Name Role Phone Dalia Harmon Primary Care Provider [phone] Reason for Visit * Reason Onset Date Comments provider call back 05/24/2024 Encounter Details Date Type Department Care Team (Late st Contact Info) Description 05/24/2024 Telephone Gastroenterology - [place] [address] [place] [address] Han Sloan DO [address] [place] [address] provider call back Social History Tobacco Use [...] Appointment [facility] Interventional Radiology [address] [place] [phone] 08/26/2024 8:30 AM EDT Office Visit Gastroenterology - [place] 175 [facility] 175 [facility] [address] [place] [phone] Han Sloan DO 175 [facility] [address] [place] [address] documented as of this encounter Visit Diagnoses Not on filedocumented in this encounter Care Teams Vehicle Window Tinter Relationship Specialty Start Date End Date Dalia Harmon PA [address] [place] [address], [address] [place] [address] PCP - General 05/10/24 documented as of this encounter
--- OUTSIDE RECORDS SUMMARY | 2024-07-01 13:00 | XMS_ITS | Encounter Summary ---
Author Organization [facility] Address [address] [place] [address] Care Team Providers Care Cyber Security Architect Name Role Phone Dalia Harmon Primary Care Provider [phone] Reason for Visit * Reason Comments Blood in Urine Encounter Details Date Type Department Care Team (Late st Contact Info) Description 06/11/2024 10:01 PM EST - 06/12/2024 12:27 PM EST Emergency [facility] [address] [place] [phone] Barak Benjamin MD [address] [place] [address] Gross hematuria (Primary Dx); Tachycardia; Abnormal chest [...] be sent through Care Everywhere. * Hematuria (Belarusian) documented in this encounter Medications at Time [...] Levaquin has been sent to the pharmacy manager general aware, ED attending aware. Will attempt contact [...] removed with Gio PARK and new [address]. Initial clot came out [...] REFLEX MICROSCOPIC AND CULTURE - Abnormal Specific [place] Urine 1.007 pH, Urine 6.0 Leukocytes, Urine [...] Procedure Abnormality Status --------- ------ CBC auto differential[[id number]] Abnormal Final result Please view results for these tests on the individual orders. URINALYSIS WITH REFLEX MICROSCOPIC AND CULTURE Narrative: The following orders were created for panel order Urinalysis with reflex microscopic and culture. Procedure Abnormality Status --------- ------ Urinalysis with reflex ...[[id number]] Abnormal Final result Pugh urine culture tube[[id number]] Final result Please view results for these [...] recommended in 3 months to assess stability. Wncuy-ue-rjvdxvqr size left pleural effusion and trace right [...] Urinalysis is still pending. Patient placed on teletypesetter monitor, EKG, blood cultures and lactic to [...] 0700 Signed out change of shift to [facility] pending CT abdomen pelvis and [...] Prescriptions None Physician Attestation GIORGI Duarte 06/11/24 [id number] GIORGI Duarte 06/12/24 0327 GIORGI Duarte 06/12/24 0548 GIORGI Duarte 06/12/24 0701 Cosigned by Ricco Hawkins MD at 06/12/2024 10:23 AM EST documented in this encounter Plan of Treatment Upcoming Encounters Date Type Department Care Team (Late st Contact Info) Description 07/06/2024 1:00 PM EDT Appointment [facility] Interventional Radiology [address] [place] [phone] 08/26/2024 8:30 AM EDT Office Visit Gastroenterology - [place] [address] [place] [address] Krishna SloanlasDO [address] [place] [address] documented as of this encounter Procedures Procedure [...] LAB CHEMISTRY METHOD 06/12/2024 7:31 AM EST [facility] Blood Venous blood specimen / Unknown Venipuncture / Unknown 06/12/2024 6:44 AM EST 06/12/2024 6:58 AM EST Narrative [facility] - 06/12/2024 7:31 AM EST High levels of biotin in samples may falsely decrease hsTroponin values. ??Use caution when interpreting hsTroponin results in patients taking biotin who exhibit renal impairment (eGFR <60) or in patients taking more than 20 mg/day of biotin. us Nayeli RAND LAB BLOOD ORDERABLES Final Resu lt [facility] [address] [place] [address], [place] [phone] * CT Abdomen Pelvis w Contrast (06/12/2024 6:28 AM EST) Anatomical Region Laterality Modality Body Computed Tomogra phy 06/12/2024 7:06 AM EST Impressions 06/12/2024 7:06 AM EST Impression: Cirrhotic liver with portal hypertension including lxdfhbfl-fk-lrcid volume ascites, splenomegaly and varices. No apparent [...] Impression: Cirrhotic liver with portal hypertension including wpgtrdlb-gx-zjabh volume ascites, splenomegaly and varices. No apparent bowel obstruction. No clear explanation for hematuria. If persistent, follow-up dedicatedCT urogram suggested. Decompressed urinary bladder with Alex catheter limiting detail. Findings suggesting panniculitis. Other findings as noted. This document has been electronically signed by: Jose Underwood MD on 06/12/2024 07:06:20 Nayeli RAND [facility] CT PROCEDURES Final Result * CT Angio Chest wo and/or w Contrast (06/12/2024 6:28 AM EST) Anatomical Region Laterality Modality Body Computed Tomogra phy 06/12/2024 6:43 AM EST Impressions 06/12/2024 6:43 AM EST A 1 cm mixed density nodular right lower lobe opacity indeterminate. Could be infectious, inflammatory or neoplastic. Follow-up chest CT is recommended in 3 months to assess stability. Gxcrg-li-uncthfqn size left pleural effusion and trace right [...] contour and moderate volume of ascites. Splenomegaly. Yccan-cz-mllttccy size left pleural effusion and trace right [...] contour and moderate volume of ascites. Splenomegaly. Pnlil-vv-zgjthdnx size left pleural effusion and trace right [...] recommended in 3 months to assess stability. Hbagg-fb-ihipherw size left pleural effusion and trace right [...] time with INR (06/12/2024 5:19 AM EST) [facility] Protime 22.0(H) 10.6 - 13.9 sec LAB COAGULATION METHOD 06/12/2024 5:38 AM EST [facility] INR 1.8 LAB COAGULATION METHOD 06/12/2024 5:38 AM EST [facility] Blood Venous blood specimen / Unknown Venipuncture / Unknown 06/12/2024 5:19 AM EST 06/12/2024 5:22 AM EST us Nayeli RAND LAB BLOOD ORDERABLES Final Resu lt Performing Organization Address City/[facility]/ZIP Co de Phone Number [facility] [address] [place] [address], [place] [phone] * B-type natriuretic peptide (06/12/2024 5:19 AM EST) [facility] BNP 95 <=100 pcg/mL LAB CHEMISTRY METHOD 06/12/2024 6:10 AM EST [facility] Blood Venous blood specimen / Unknown Venipuncture / Unknown 06/12/2024 5:19 AM EST 06/12/2024 5:22 AM EST us Nayeli RAND LAB BLOOD ORDERABLES Final Resu lt [facility] [address] [place] [address], [place] [phone] * Troponin I high sensitivity (06/12/2024 5:19 AM EST) [facility] High Sensitivity Troponin I 22 <=79 ng/L LAB CHEMISTRY METHOD 06/12/2024 5:56 AM EST [facility] Blood Venous blood specimen / Unknown Venipuncture / Unknown 06/12/2024 5:19 AM EST 06/12/2024 5:22 AM EST Narrative [facility] - 06/12/2024 5:56 AM EST High levels of biotin in samples may falsely decrease hsTroponin values. ??Use caution when interpreting hsTroponin results in patients taking biotin who exhibit renal impairment (eGFR <60) or in patients taking more than 20 mg/day of biotin. Nayeli RAND LAB BLOOD ORDERABLES Final Resu lt Performing Organization Address City/[facility]/ZIP Co de Phone Number [facility] [address] [place] [address], [place] [phone] * ECG 12 lead (06/12/2024 3:57 AM EST) Ventricular Rate ECG 118 BPM GEMUSE Atrial Rate 119 BPM GEMUSE QRS Duration 124 ms GEMUSE Q-T Interval 348 ms GEMUSE QTc 487 ms GEMUSE R Vinson -36 degrees GEMUSE T Vinson 35 degrees GEMUSE ECG Interpretation Sinus tachycardia [...] 3:57 AM EST 06/12/2024 3:33 PM EST Nayeli RAND ECG ORDERABLES Final Result Performing Organization Address [facility] Co de Phone Number GEMUSE * (ABNORMAL) Blood culture pathogens molecular study (06/12/2024 3:44 AM EST) Pseudomonas aeruginosa Detected (A) Not Detected LAB MICROBIOLOGY METHOD 06/13/2024 7:45 AM EST [facility] Blood Venous blood specimen / Unknown Venipuncture / Unknown 06/12/2024 3:44 AM EST 06/12/2024 3:51 AM EST Nayeli RAND LAB MICROBIOLOGY - GENERAL ORDE RABJUANI Final Result Performing Organization Address [facility]/ZIP Co de Phone Number [facility] [address] [place] [address], [place] [phone] * (ABNORMAL) Blood Culture, Peripheral Draw #2 (06/12/2024 3:44 AM EST) [facility] Culture, Blood Pseudomonas aeruginosa(AA) SAVANNAH 06/16/2024 8:10 AM EST [facility] Comment: The organism value for this result has been updated. These results have been appended to the previously preliminary verified report. This is an edited result. Previous organism was Gram negative bacilli on 06/14/2024 at 1009 EST. Gram Stain Result Aerobic and Anaerobic bottles Gram negative bacilli(AA) 06/16/2024 8:10 AM EST [facility] Comment:This is an appended [...] ORDE RABJUANI Final Result Performing Organization Address City/[facility]/ZIP Co de Phone Number [facility] [address] [place] [address], * (ABNORMAL) Lactate (06/12/2024 3:40 AM EST) Pathologist [facility] Lactate 3.2(HH) 0.4 - 2.0 mmol/L LAB CHEMISTRY METHOD 06/12/2024 4:30 AM EST [facility] Blood Venous blood specimen / Unknown Venipuncture / Unknown 06/12/2024 3:40 AM EST 06/12/2024 3:51 AM EST Nayeli RAND LAB BLOOD ORDERABLES Final Resu lt [facility] [address] [place] [address], [place] [phone] * (ABNORMAL) Blood Culture, Peripheral Draw #1 (06/12/2024 3:40 AM EST) [facility] Culture, Blood Pseudomonas aeruginosa(AA) SAVANNAH 06/16/2024 8:10 AM EST [facility] Comment: The organism value for this result has been updated. These results have been appended to the previously preliminary verified report. This is an edited result. Previous organism was Gram negative bacilli on 06/14/2024 at 1012 EST. Gram Stain Result Aerobic bottle Gram negative bacilli(AA) 06/16/2024 8:10 AM EST [facility] Comment:This is an appended report. These results have been appended to a previously preliminary verified report. Blood Venous blood specimen / Unknown Venipuncture / Unknown 06/12/2024 3:40 AM EST 06/12/2024 3:51 AM EST Narrative [facility] - 06/16/2024 8:10 AM EST For susceptibilities refer to culture on 06/12/24 at 0344. Nayeli RAND LAB MICROBIOLOGY - GENERAL ORDE RABLES Final Result [facility] [address] [place] [address], [place] [phone] * (ABNORMAL) Culture urine (06/12/2024 1:15 AM EST) Culture, Urine >100,000 CFU/mL Pseudomonas aeruginosa(A) SAVANNAH 06/15/2024 9:00 AM EST [facility] Comment: This is an [...] FFUSION Susceptible Pseudomonas aeruginosa Tobramycin DISK DIFFUSION us Nayeli RAND LAB MICROBIOLOGY - GENERAL ORDE RABLES Final Result Performing Organization Address City/[facility] Co de Phone Number [facility] [address] [place] [address], [place] [phone] * Pugh urine culture tube (06/12/2024 1:15 AM EST) Pathologist [facility] Extra Tube Hold for add-ons. 06/12/2024 4:01 AM EST [facility] Comment:Auto resulted. Urine Urine specimen obtained by clean catch procedure / Unknown Non-blood Collection / Unknown 06/12/2024 1:15 AM EST 06/12/2024 2:59 AM EST us Nayeli RAND LAB URINE ORDERABLES Final Resu lt [facility] [address] [place] [address], [place] [phone] * (ABNORMAL) Urinalysis with reflex microscopic and culture (06/12/2024 1:15 AM EST) Specific [place] Urine 1.007 1.003 - 1.030 LAB URINALYSIS - AUTOMATED METHOD 06/12/2024 3:41 AM [facility] pH, Urine 6.0 5.0 - 8.0 pH LAB URINALYSIS - AUTOMATED METHOD 06/12/2024 3:41 AM [facility] Leukocytes, Urine Small(A) Negative LAB URINALYSIS - AUTOMATED METHOD 06/12/2024 3:41 AM [facility] Nitrite, Urine Negative Negative LAB URINALYSIS - AUTOMATED METHOD 06/12/2024 3:41 AM [facility] Protein, Urine Negative <=Trace mg/dL LAB URINALYSIS - AUTOMATED METHOD 06/12/2024 3:41 AM [facility] Glucose, Urine Negative Negative mg/dL LAB URINALYSIS - AUTOMATED METHOD 06/12/2024 3:41 AM [facility] Ketones, Urine Negative Negative mg/dL LAB URINALYSIS - AUTOMATED METHOD 06/12/2024 3:41 AM [facility] Urobilinogen, Urine 0.2 0.2 - 1.0 mg/dL LAB URINALYSIS - AUTOMATED METHOD 06/12/2024 3:41 AM [facility] Bilirubin, Urine Negative Negative LAB URINALYSIS - AUTOMATED METHOD 06/12/2024 3:41 AM [facility] Blood, Urine Large(A) Negative LAB URINALYSIS - AUTOMATED METHOD 06/12/2024 3:41 AM [facility] RBC, Urine 156.5(H) 0 - 4 /HPF LAB URINALYSIS - AUTOMATED METHOD 06/12/2024 3:41 AM [facility] WBC, Urine 16.6(H) 0 - 4 /HPF LAB URINALYSIS - AUTOMATED METHOD 06/12/2024 3:41 AM [facility] Squamous Epithelial, Urine 9 0 - 60 /LPF LAB URINALYSIS - AUTOMATED METHOD 06/12/2024 3:41 AM [facility] Bacteria, Urine Negative Negative /HPF LAB URINALYSIS - AUTOMATED METHOD 06/12/2024 3:41 AM [facility] Hyaline Casts, Urine 0.8 0 - 3 /LPF LAB URINALYSIS - AUTOMATED METHOD 06/12/2024 3:41 AM [facility] Urine Urine specimen obtained by clean catch procedure / Unknown Non-blood Collection / Unknown 06/12/2024 1:15 AM EST 06/12/2024 2:59 AM EST us Nayeli RAND LAB URINE ORDERABLES Final Resu lt [facility] [address] [place] [address], * (ABNORMAL) CBC auto differential (06/11/2024 11:14 PM EST) WBC 5.0 4.8 - 10.8 K/mcL LAB HEMETOLOGY METHOD 06/11/2024 11:55 PM [facility] RBC 3.60(L) 4.50 - 5.50 M/mcL LAB HEMETOLOGY METHOD 06/11/2024 11:55 PM [facility] Hemoglobin 12.5(L) 13.5 - 17.5 g/dL LAB HEMETOLOGY METHOD 06/11/2024 11:55 PM [facility] Hematocrit 38.0(L) 42.0 - 54.0 % LAB HEMETOLOGY METHOD 06/11/2024 11:55 PM [facility] MCV 107.0(H) 79.0 - 98.0 FL LAB HEMETOLOGY METHOD 06/11/2024 11:55 PM [facility] MCH 35.2(H) 27.0 - 32.0 pcg LAB HEMETOLOGY METHOD 06/11/2024 11:55 PM [facility] MCHC 32.9 32.0 - 37.0 g/dL LAB HEMETOLOGY METHOD 06/11/2024 11:55 PM [facility] RDW 17.5(H) 11.0 - 15.0 % LAB HEMETOLOGY METHOD 06/11/2024 11:55 PM [facility] Platelets 85(L) 130 - 400 K/mcL LAB HEMETOLOGY METHOD 06/11/2024 11:55 PM [facility] Comment:reviewed by slide MPV 10.4 7.0 - 11.0 FL LAB HEMETOLOGY METHOD 06/11/2024 11:55 PM [facility] NRBC 0.0 <1.0 % LAB HEMETOLOGY METHOD 06/11/2024 11:55 PM [facility] NRBC Absolute 0.00 <0.10 K/mcL LAB HEMETOLOGY METHOD 06/11/2024 11:55 PM [facility] Neutrophils Relative 93.8 % LAB HEMETOLOGY METHOD 06/11/2024 11:55 PM [facility] Lymphocytes Relative 4.4 % LAB HEMETOLOGY METHOD 06/11/2024 11:55 PM [facility] Monocytes Relative 1.4 % LAB HEMETOLOGY METHOD 06/11/2024 11:55 PM [facility] Eosinophils Relative 0.0 % LAB HEMETOLOGY METHOD 06/11/2024 11:55 PM [facility] Basophils Relative 0.2 % LAB HEMETOLOGY METHOD 06/11/2024 11:55 PM [facility] Immature Granulocytes Relative 0.2 % LAB HEMETOLOGY METHOD 06/11/2024 11:55 PM EST [facility] Neutrophils Absolute 4.65 1.50 - 7.00 K/[facility] LAB HEMETOLOGY METHOD 06/11/2024 11:55 PM EST [facility] Lymphocytes Absolute 0.22(L) 1.00 - 5.00 K/[facility] LAB HEMETOLOGY METHOD 06/11/2024 11:55 PM EST [facility] Monocytes Absolute 0.07(L) 0.20 - 1.00 K/mcL LAB HEMETOLOGY METHOD 06/11/2024 11:55 PM EST [facility] Eosinophils Absolute 0.00 0.00 - 0.50 K/mcL LAB HEMETOLOGY METHOD 06/11/2024 11:55 PM [facility] Basophils Absolute 0.01 0.00 - 0.20 K/mcL LAB HEMETOLOGY METHOD 06/11/2024 11:55 PM EST [facility] Immature Granulocytes Absolute 0.01 0.00 - 0.03 K/mcL LAB HEMETOLOGY METHOD 06/11/2024 11:55 PM EST [facility] Blood Venous blood specimen / Unknown Venipuncture / Unknown 06/11/2024 11:14 PM EST 06/11/2024 11:24 PM EST us Emily Singh DO LAB BLOOD ORDERABLES Berenice l Result [facility] [address] [place] [address], * (ABNORMAL) Basic metabolic panel (06/11/2024 11:14 PM EST) Sodium 138 133 - 145 mmol/L LAB CHEMISTRY METHOD 06/12/2024 12:11 AM EST [facility] Potassium 4.4 3.5 - 5.5 mmol/L LAB CHEMISTRY METHOD 06/12/2024 12:11 AM [facility] Chloride 102 96 - 110 mmol/L LAB CHEMISTRY METHOD 06/12/2024 12:11 AM [facility] CO2 26 21 - 32 mmol/L LAB CHEMISTRY METHOD 06/12/2024 12:11 AM [facility] Anion Gap 10 3 - 11 LAB CHEMISTRY METHOD 06/12/2024 12:11 AM [facility] Glucose 139(H) 70 - 100 mg/dL LAB CHEMISTRY METHOD 06/12/2024 12:11 AM [facility] BUN 12 5 - 25 mg/dL LAB CHEMISTRY METHOD 06/12/2024 12:11 AM [facility] Creatinine 0.80 0.70 - 1.30 mg/dL LAB CHEMISTRY METHOD 06/12/2024 12:11 AM [facility] eGFR 98 >=60 mL/min/1. 73m2 LAB CHEMISTRY METHOD 06/12/2024 12:11 AM [facility] Comment:Calculation based on the??Chronic Kidney Disease Epidemiology Collaboration (CKD-EPI) equation refit??without adjustment for race. BUN/Creatinine Ratio 15.0 LAB CHEMISTRY METHOD 06/12/2024 12:11 AM [facility] Calcium 8.7 8.5 - 10.5 mg/dL LAB CHEMISTRY METHOD 06/12/2024 12:11 AM [facility] Blood Venous blood specimen / Unknown Venipuncture / Unknown 06/11/2024 11:14 PM EST 06/11/2024 11:24 PM EST us Emily Singh DO LAB BLOOD ORDERABLES Berenice l Result [facility] [address] [place] [address], [place] [phone] documented in this encounter Visit Diagnoses Diagnosis [...] 2 % mucosal jelly urethral, Once, On 06/11/24 at 2241, For 1 dose Given 06/11/2024 [...] on 06/12/24 at 0608, For 1 dose 06 (Given - Provid er: Elijah Castillo) lidocaine 2 % mucosal jelly (COMPLETED) urethral, Once, On Fri06/11/24 at 2241, For 1 dose 224 (Given - Provider: Marcellus Orellana RN) oxyCODONE (ROXICODONE) immediate release tablet 10 mg (COMPLETED) 10 mg, oral, Once, On 06/12/24 at 0410, For 1 dose 0421 (Given - Provid er: Deepak Katz RN) sodium chloride 0.9 % flush 10 mL (COMPLETED) 10 mL, intravenous, Once, On 06/12/24 at 0609, For 1 dose 0614 (Given - Provid er: Elijah Castillo) sodium chloride 0.9 % irrigation solution 3,000 mL (COMPLETED) 3,000 mL, irrigation, Once, On 06/11/24 at 2332, For 1 dose 0029 (Given - Provid er: Deepak Katz RN) documented in this encounter Care Teams Cyber Security Architect Relationship Specialty Start Date End Date Dalia Harmon PA [address] [place] [address], [address] [place] [address] PCP - General 05/10/24 documented as of this encounter
--- OUTSIDE RECORDS SUMMARY | 2024-07-01 13:00 | XMS_ITS | Encounter Summary ---
Author Organization [facility] Address [address] [place] [address] Care Team Providers Care Doctor Of Nurse Anesthesia Name Role Phone Dalia Harmon Primary Care Provider [phone] Encounter Details Date Type Department Care Team (Late Contact Info) Description 05/28/2024 Lab Requisition [facility] - Main Lab [address] [place] [phone] Gerry Barksdale [address] [place] [address] [address] [place] [phone] Sepsis, unspecified organism (CMS/HCC) Social History Tobacco [...] Info) Description 07/06/2024 1:00 PM EDT Appointment [facility] Interventional Radiology [address] [place] [phone] 08/26/2024 8:30 AM EDT Office Visit Gastroenterology - [place] [address] [place] [phone] Han Sloan DO [address] [place] [address] documented as of this encounter Procedures Procedure Name Priority Date/Time Associated Diagnosis Comments COMPLETE BLOOD COUNT Routine 05/31/2024 8:09 AM EST Sepsis, unspecified organism (CMS/HCC) BASIC METABOLIC PANEL Routine 05/31/2024 8:09 AM EST Sepsis, unspecified organism (CMS/HCC) documented in this encounter Results * (ABNORMAL) Basic metabolic panel (05/31/2024 8:09 AM EST) Sodium 135 133 - 145 mmol/L LAB CHEMISTRY METHOD 05/31/2024 10:57 AM [facility] Potassium 3.9 3.5 - 5.5 mmol/L LAB CHEMISTRY METHOD 05/31/2024 10:57 AM [facility] Chloride 101 96 - 110 mmol/L LAB CHEMISTRY METHOD 05/31/2024 10:57 AM [facility] CO2 29 21 - 32 mmol/L LAB CHEMISTRY METHOD 05/31/2024 10:57 AM [facility] Anion Gap 5 3 - 11 LAB CHEMISTRY METHOD 05/31/2024 10:57 AM [facility] Glucose 116(H) 70 - 100 mg/dL LAB CHEMISTRY METHOD 05/31/2024 10:57 AM [facility] BUN 12 5 - 25 mg/dL LAB CHEMISTRY METHOD 05/31/2024 10:57 AM [facility] Creatinine 0.47(L) 0.70 - 1.30 mg/dL LAB CHEMISTRY METHOD 05/31/2024 10:57 AM [facility] eGFR 115 >=60 mL/min/1. 73m2 LAB CHEMISTRY METHOD 05/31/2024 10:57 AM [facility] Comment:Calculation based on the??Chronic Kidney Disease Epidemiology Collaboration (CKD-EPI) equation refit??without adjustment for race. BUN/Creatinine Ratio 25.5 LAB CHEMISTRY METHOD 05/31/2024 10:57 AM [facility] Calcium 8.2(L) 8.5 - 10.5 mg/dL LAB CHEMISTRY METHOD 05/31/2024 10:57 AM [facility] Blood Venous blood specimen / Unknown Venipuncture / Unknown 05/31/2024 8:09 AM EST 05/31/2024 9:54 AM EST Gerry Barksdale LAB BLOOD ORDERABLES Final Resul t [facility] [address] [place] [address], * (ABNORMAL) Complete blood count (05/31/2024 8:09 AM EST) WBC 5.3 4.8 - 10.8 K/mcL LAB HEMETOLOGY METHOD 05/31/2024 10:28 AM [facility] RBC 3.50(L) 4.50 - 5.50 M/mcL LAB HEMETOLOGY METHOD 05/31/2024 10:28 AM [facility] Hemoglobin 11.8(L) 13.5 - 17.5 g/dL LAB HEMETOLOGY METHOD 05/31/2024 10:28 AM [facility] Hematocrit 36.4(L) 42.0 - 54.0 % LAB HEMETOLOGY METHOD 05/31/2024 10:28 AM [facility] MCV 105.5(H) 79.0 - 98.0 FL LAB HEMETOLOGY METHOD 05/31/2024 10:28 AM [facility] MCH 34.2(H) 27.0 - 32.0 pcg LAB HEMETOLOGY METHOD 05/31/2024 10:28 AM EST [facility] MCHC 32.4 32.0 - 37.0 g/dL LAB HEMETOLOGY METHOD 05/31/2024 10:28 AM [facility] RDW 17.1(H) 11.0 - 15.0 % LAB HEMETOLOGY METHOD 05/31/2024 10:28 AM EST [facility] Platelets 149 130 - 400 K/mcL LAB HEMETOLOGY METHOD 05/31/2024 10:28 AM [facility] MPV 10.5 7.0 - 11.0 FL LAB HEMETOLOGY METHOD 05/31/2024 10:28 AM [facility] NRBC 0.0 <1.0 % LAB HEMETOLOGY METHOD 05/31/2024 10:28 AM [facility] NRBC Absolute 0.00 <0.10 K/mcL LAB HEMETOLOGY METHOD 05/31/2024 10:28 AM [facility] Blood Venous blood specimen / Unknown Venipuncture / Unknown 05/31/2024 8:09 AM EST 05/31/2024 9:53 AM EST us Gerry Barksdale LAB BLOOD ORDERABLES Final Resul t [facility] [address] [place] [address], documented in this encounter Visit Diagnoses Diagnosis Sepsis, unspecified organism (CMS/HCC) documented in this encounter Care Teams Doctor Of Nurse Anesthesia Relationship Specialty Start Date End Date Dalia Harmon PA [address] [facility], [address] [place] [address] PCP - General 05/10/24 documented as of this encounter
--- OUTSIDE RECORDS SUMMARY | 2024-07-01 13:00 | XMS_ITS | Encounter Summary ---
Author Organization [facility] Address [address] [place] [address] Care Team Providers Care Fabric Worker Name Role Phone Dalia Harmon Primary Care Provider [phone] Encounter Details Date Type Department Care Team (Late Contact Info) Description 05/26/2024 Lab Requisition [facility] - Main Lab [address] [place] [phone] Gerry Barksdale [address] [place] [address] [phone] [place] [phone] Weakness; Urinary tract infection, site not specified [...] Description 07/06/2024 1:[address] [facility] Interventional Radiology [address] [place] [phone] 08/26/2024 8:30 AM EDT Office Visit Gastroenterology - [place] [address] [place] [phone] Han Sloan DO [address] [place] [address] documented as of this encounter Procedures Procedure [...] (ABNORMAL) Vitamin B12 (05/26/2024 6:59 AM EST) Pathologist [facility] Vitamin B-12 1,309(H) 250 - 900 pcg/mL LAB CHEMISTRY METHOD 05/26/2024 1:39 PM EST [facility] Blood Venous blood specimen / Unknown Venipuncture / Unknown 05/26/2024 6:59 AM EST 05/26/2024 10:29 AM EST us Gerry Barksdale LAB BLOOD ORDERABLES Final Resul t [facility] [address] [place] [address], * Folate (05/26/2024 6:59 AM EST) [facility] Folate 4.3 2.8 - 17.0 ng/ml LAB CHEMISTRY METHOD 05/26/2024 1:39 PM EST [facility] Blood Venous blood specimen / Unknown Venipuncture / Unknown 05/26/2024 6:59 AM EST 05/26/2024 10:29 AM EST [place] LAB BLOOD ORDERABLES Final Resul t Performing Organization Address [facility]/ZIP Co de Phone Number [facility] [address] [place] [address], [place] [phone] * (ABNORMAL) Thyroid stimulating hormone (05/26/2024 6:59 AM EST) TSH 5.20(H) 0.40 - 4.00 mcIU/mL LAB CHEMISTRY METHOD 05/26/2024 1:24 PM [facility] Blood Venous blood specimen / Unknown Venipuncture / Unknown 05/26/2024 6:59 AM EST 05/26/2024 10:29 AM EST [place] LAB BLOOD ORDERABLES Final Resul t Performing Organization Address [facility]/ZIP Co de Phone Number [facility] [address] [place] [address], [place] [phone] * (ABNORMAL) Comprehensive metabolic panel (05/26/2024 6:59 AM EST) Sodium 133 133 - 145 mmol/L LAB CHEMISTRY METHOD 05/26/2024 1:16 PM [facility] Potassium 3.6 3.5 - 5.5 mmol/L LAB CHEMISTRY METHOD 05/26/2024 1:16 PM [facility] Chloride 95(L) 96 - 110 mmol/L LAB CHEMISTRY METHOD 05/26/2024 1:16 PM [facility] CO2 31 21 - 32 mmol/L LAB CHEMISTRY METHOD 05/26/2024 1:16 PM [facility] Anion Gap 7 3 - 11 LAB CHEMISTRY METHOD 05/26/2024 1:16 PM [facility] Glucose 116(H) 70 - 100 mg/dL LAB CHEMISTRY METHOD 05/26/2024 1:16 PM [facility] BUN 15 5 - 25 mg/dL LAB CHEMISTRY METHOD 05/26/2024 1:16 PM [facility] Creatinine 0.52(L) 0.70 - 1.30 mg/dL LAB CHEMISTRY METHOD 05/26/2024 1:16 PM [facility] eGFR 111 >=60 mL/min/1. 73m2 LAB CHEMISTRY METHOD 05/26/2024 1:16 PM [facility] Comment:Calculation based on the??Chronic Kidney Disease Epidemiology Collaboration (CKD-EPI) equation refit??without adjustment for race. BUN/Creatinine Ratio 28.8 LAB CHEMISTRY METHOD 05/26/2024 1:16 PM [facility] Calcium 8.2(L) 8.5 - 10.5 mg/dL LAB CHEMISTRY METHOD 05/26/2024 1:16 PM [facility] AST (SGOT) 27 10 - 42 unit/L LAB CHEMISTRY METHOD 05/26/2024 1:16 PM [facility] ALT (SGPT) 20 10 - 60 unit/L LAB CHEMISTRY METHOD 05/26/2024 1:16 PM [facility] Alkaline Phosphatase 139(H) 42 - 121 unit/L LAB CHEMISTRY METHOD 05/26/2024 1:16 PM [facility] Total Protein 6.0 6.0 - 8.0 g/dL LAB CHEMISTRY METHOD 05/26/2024 1:16 PM [facility] Albumin 2.3(L) 3.2 - 5.0 g/dL LAB CHEMISTRY METHOD 05/26/2024 1:16 PM [facility] Total Bilirubin 3.2(H) 0.0 - 1.4 mg/dL LAB CHEMISTRY METHOD 05/26/2024 1:16 PM [facility] Blood Venous blood specimen / Unknown Venipuncture / Unknown 05/26/2024 6:59 AM EST 05/26/2024 10:29 AM EST Gerry Barksdale LAB BLOOD ORDERABLES Final Resul t [facility] [address] [place] [address], * (ABNORMAL) Complete blood count (05/26/2024 6:59 AM EST) WBC 7.6 4.8 - 10.8 K/mcL LAB HEMETOLOGY METHOD 05/26/2024 11:18 AM [facility] RBC 3.50(L) 4.50 - 5.50 M/mcL LAB HEMETOLOGY METHOD 05/26/2024 11:18 AM [facility] Hemoglobin 12.2(L) 13.5 - 17.5 g/dL LAB HEMETOLOGY METHOD 05/26/2024 11:18 AM [facility] Hematocrit 35.5(L) 42.0 - 54.0 % LAB HEMETOLOGY METHOD 05/26/2024 11:18 AM [facility] MCV 100.6(H) 79.0 - 98.0 FL LAB HEMETOLOGY METHOD 05/26/2024 11:18 AM [facility] MCH 34.6(H) 27.0 - 32.0 pcg LAB HEMETOLOGY METHOD 05/26/2024 11:18 AM [facility] MCHC 34.4 32.0 - 37.0 g/dL LAB HEMETOLOGY METHOD 05/26/2024 11:18 AM [facility] RDW 15.9(H) 11.0 - 15.0 % LAB HEMETOLOGY METHOD 05/26/2024 11:18 AM [facility] Platelets 139 130 - 400 K/mcL LAB HEMETOLOGY METHOD 05/26/2024 11:18 AM EST [facility] MPV 10.8 7.0 - 11.0 FL LAB HEMETOLOGY METHOD 05/26/2024 11:18 AM EST [facility] NRBC 0.0 <1.0 % LAB HEMETOLOGY METHOD 05/26/2024 11:18 AM EST [facility] NRBC Absolute 0.00 <0.10 K/mcL LAB HEMETOLOGY METHOD 05/26/2024 11:18 AM EST [facility] Blood Venous blood specimen / Unknown Venipuncture / Unknown 05/26/2024 6:59 AM EST 05/26/2024 10:29 AM EST Gerry Barksdale LAB BLOOD ORDERABLES Final Resul t [facility] [address] [place] [address], documented in this encounter Visit Diagnoses Diagnosis Weakness Other malaise and fatigue Urinary tract infection, site not specified documented in this encounter Care Teams Fabric Worker Relationship Specialty Start Date End Date Dalia Harmon PA [address] [place] [address], [address] [place] [address] PCP - General 05/10/24 documented as of this encounter
--- OUTSIDE RECORDS SUMMARY | 2024-07-01 13:01 | XMS_ITS | Continuity of Care Document ---
Author Organization [facility] Address [address] [place] [phone] Care Team Providers Care Staff Consultant Name Role Phone HIM [facility] OTHER [facility] Primary Care Provider Assessment Encounter Date [...] in the field was performed by my embedder colleague, as noted above, I provided real-time [...] needs coags and platelets checked Disposition: To [facility] ED via 911. Patient is [...] Name and Address Organization Details Recorded Time 67825 semagluti de medicatio n Not available Not available Not available 03/18/2024 RxNorm Not Available [facility] 4 18:27:38 21493 nystatin medicatio n Not available Not available Not available 06/10/2024 7597 RxNorm Not Available [facility] 20:32:41 31645 codeine medicatio n Not available Not available Not available 06/10/2024 2670 RxNorm Not Available [facility] 20:32:41 Medications Name [...] cm 97 % 97 % 99 /min 949809. 584 g 20 /min 150 mm[Hg] 90 mm[Hg] Not Available [facility] - production 5 20:56:17 Social History None recorded. Functional Status None recorded. Mental Status None recorded. Family History Nothing Reported. Medical History No medical history recorded. Past Encounters Encounter ID Performer Location Encounter Start Date Encounter Closed Date Diagnosis/Indication Diagnosis SNOMED-CT Code Diagnosis ICD10 Code Diagnosis Note [id number] Yasmeen Redmond MD Main - [facility] [address] [place] [phone] 06/10/2024 20:56:07 06/10/2024 21:35:04 Indwelling urethral urinary catheter in situ 200993449 Z96.0 [id number] FRANSISCO POLANCO MD Main - [facility] [address] [place] [phone] 06/11/2024 20:56:11 06/12/2024 09:25:59 Jovi hematuria 687389340 R31.0 Health Concerns Section Related Observation LastModified by Organization Detai ls LastModified Time None Recorded Concern Status LastModified by Organization Details LastModified Time None Recorded Payers Encounter Date Sequence Insurance Name Policy Number Policy Pan Covered Member ID Pan Member ID Guarantor Name 06/11/2024 1 [facility] - DOS ON OR AFTER 2022 - DUAL ELIGIBLE - NURSING HOME OPTIONS AND ONE [employer] (MEDICARE REPLACEMENT/ADV ANTAGE - HMO) Jonny Reed [id number] Jonny Reed Notes Date Note Type Note [...] with worsening s/sx-NE FRANSISCO POLANCO MD [address] [facility],[address], [place], [address], RADHA - ANNE FRY 06/11/2024 22:21:06
--- OUTSIDE RECORDS SUMMARY | 2024-07-01 13:01 | XMS_ITS | Encounter Summary ---
Author Organization [facility] Address [address] [place] [address] Care Team Providers Care Aircraft Pneudraulics Repairer Name Role Phone Dalia Harmon Primary Care Provider [phone] Encounter Details Date Type Department Care Team (Late st Contact Info) Description 06/18/2024 Lab Requisition [facility] - Main Lab [address] [facility] [place] [address] Gerry Barksdale [address] [facility] [address] [place] [phone] Sepsis, unspecified organism (CMS/HCC) Social History Tobacco [...] EDT Appointment [facility] Interventional Radiology [address] [place] [phone] 08/26/2024 8:30 AM EDT Office Visit Gastroenterology - [place] 175 [facility] 175 [facility] [address] [place] [phone] Han Sloan DO [address] [facility] [address] [place] [address] documented as of this encounter Visit Diagnoses Diagnosis Sepsis, unspecified organism (CMS/HCC) documented in this encounter Care Teams Aircraft Pneudraulics Repairer Relationship Specialty Start Date End Date Dalia Harmon PA [address] [facility], [address] [place] [address] PCP - General 05/10/24 documented as of this encounter
--- OUTSIDE RECORDS SUMMARY | 2024-07-01 13:01 | XMS_ITS | Encounter Summary ---
Author Organization [facility] Address [address] [place] [address] Care Team Providers Care Manager Club Name Role Phone Dalia Harmon Primary Care Provider [phone] Reason for Visit * Reason Comments Blood in Urine Chronic Alex w/sheng ht red blood. Last replaced 2 days ago * Auth/Cert (Routine) Specialty Diagnoses / Procedures Referred By Aliya t Referred To Contact Diagnoses Pseudomonal bacteremia Procedures [facility] IP/OBS CARE INITIAL MODERATE LEVEL PER DAY Napoleon Neely MD [address] [place] [phone] Phone: tel: fax: [facility] Emergency [address] [place] [address] Phone: tel: Referral ID Status Reason Start Date Expiration Date Visits Re quested Visits Authorized [id number] 1 1 Encounter Details Date Type Department Care Team (Late st Contact Info) Description 06/13/2024 12:02 PM EST - 06/16/2024 2:30 PM EST Hospital Encounter [facility] Medical Surgical Unit [address] [place] [address] Barak Benjamin MD [address] [place] [address] Napoleon Neely MD [address] [place] [phone] Liang Uribe MD [address] [place] [address] Deborah Barahona MD [address] [place] [address] Bacteremia (Primary Dx); Alex catheter in place; Urinary tract infection associated with indwelling urethral catheter, initial encounter ([facility]); Hx of ascites; Anasarca Discharge [...] from the original note were not included. GONVICK DISCHARGE SUMMARY Patient Information Jonny Gordon : [...] urine output In the ED here at [facility] patient had Alex catheter changed. At [...] Patient follows with urology, Dr. Simon at [facility] He also follows with Dr. Sloan [...] indeterminate. Could be infectious, inflammatory or neoplastic. Qrrqa-uq-zelmulwl size left pleural effusion and trace right pleural effusion with mild subjacent atelectasis. Cardiomegaly. Mildly dilated main pulmonary artery indicating pulmonary arterial hypertension. Hepatic cirrhosis with ascites and splenomegaly. CT Abd/Pelvis w Contrast - Cirrhotic liver with portal hypertension including vyzxamvr-ov-upbzq volume ascites, splenomegaly and varices. No apparent [...] daily -Patient follows up with urology at [facility] however he is not happy with his [...] Signed Date: 06/15/2024 12:40 ET Workstation ID: [id number] Transcribed By: Self Edit Transcribed Date: 06/14/2024 11:29 ET Resident/PA/VICE PRESIDENT CLIENT SERVICES: Milady Chilel Lab Results Component Value Date [...] Signed Date: 06/15/2024 12:40 ET Workstation ID: [id number] Transcribed By: Self Edit Transcribed Date: 06/14/2024 11:29 ET Resident/PA/VICE PRESIDENT CLIENT SERVICES: Milady Chilel Follow-Up Instructions and Recommendations [facility] [address] [place] [phone] More than 30 minutes spent on [...] Barahona MD - 06/16/2024 2:30 PM EST [facility] Provider Response Note PATIENT: JONNY GORDON : 1960 ADMIT DATE: 06/13/2024 2:04 PM DISCH DATE: 06/16/2024 2:30 PM RESPONDING PROVIDER #: [id number] PROVIDER RESPONSE TEXT: The patient has secondary [...] is on Eliquis for hemochromatosis per EMR. intermodal customer service use of anticoagulant in the form of [...] Patient to take full course of antibiotics. Jewell driving patient home. to berry picker machine operator medication from pharmacy on the [...] Discharge Needs Discipline following for SNF placement Tube Worker Informed Choice Informed Choice Given? Yes Transportation Transportation at discharge [facility] providing transportation Jewell What day is the transport expected? 06/16/24 What time is the transport expected? 1430 Final Discharge Disposition Home Health Care Services Patient discharging home via ambulance with 47 hours of BEARING INSPECTOR services and [facility], at bedside and aware * Stephany Cifuentes PT - 06/16/2024 12:30 PM EST Patient: Jonny Gordon Age: 64 y.o. Sex: male Pseudomonal bacteremia [facility] Physical Therapy Treatment Ambulation: Walking Assistance: Contact guard Device: Rolling walker Distance Ambulated (ft): 10 PLOF: Level of Model: Independent with mobility and functional transfers Lives With: Alone Receives Help From: patron attendant (47HRS/WK) Type of Home: House Home [...] to dc home with 47 +hours of BEARING INSPECTOR care, . and recommending home PT services [...] Uribe MD - 06/16/2024 12:38 AM EST [facility] Provider Response Note PATIENT: JONNY GORDON : 1960 ADMIT DATE: 06/13/2024 2:04 PM DISCH DATE: RESPONDING PROVIDER #: [id number] PROVIDER RESPONSE TEXT: The two conditions are due to or associated. QUERY TEXT: Please clarify in documentation the relationship, if any, between Complicated UTI with Pseudomonas and chronic indwelling Alex catheter since February presents. Such as: H&P 06/13/2024 (1) HPI: In the ED here at [facility] patient had Alex catheter changed... morbid [...] urine output In the ED here at [facility] patient had Alex catheter changed. At [...] Patient follows with urology, Dr. Simon at [facility] He also follows with Dr. Sloan [...] a 64 y.o. male : 1960 MR#: [id number] SUBJECTIVE Subjective Patient seen and examined bedside [...] daily -Patient follows up with urology at [facility] however he is not happy with his [...] Signed By: Signed Date: ET Workstation ID: [id number] Transcribed By: Self Edit Transcribed Date: 06/14/2024 11:29 ET Resident/PA/VICE PRESIDENT CLIENT SERVICES: Milady Chilel CT Abdomen Pelvis w Contrast [...] Impression: Cirrhotic liver with portal hypertension including zaiqdhaf-nw-kbupa volumeascites, splenomegaly and varices. No apparent bowel [...] contour and moderate volume of ascites. Splenomegaly. Bsyyx-cv-zshyhjli size left pleural effusion and trace right [...] recommended in 3 months to assess stability. Pvdag-cu-ainsskmz size left pleural effusion and trace right [...] Signed Date: 05/21/2024 09:23 ET Workstation ID: [id number] Transcribed By: Self Edit Transcribed Date:05/21/2024 09:22 [...] Signed Date: 05/20/2024 08:06 ET Workstation ID: [id number] Transcribed By: Self Edit Transcribed Date: 05/20/2024 [...] bloodC/S. The pt was recently discharged from [facility] on 05/25 for UI. He then [...] and BMP and faxto my office at [phone] Recommend Urology consult, the pt has had [...] 64 y.o. Sex: male Pseudomonal bacteremia [facility] Physical Therapy Evaluation PLOF: Level of Model: Independent with mobility and functional transfers Lives With: Alone Receives Help From: patron attendant (47HRS/WK) Type of Home: House Home Adaptive Equipment: Walker - rolling, Wheelchair-manual, Bariatric equipment, Tub seat with back, Bedside commode, Other (Comment) (stair chair) Home Layout: One level Home Access: Stairs to enter with rails DME Needs: PT Discharge Recommendation: [facility] facility placement, (however pt would like to return home and has 47 hours of floor cashier care. Reason for current recommendation based on [...] COLONOSCOPY N/A PROCEDURE: HISTORICAL COLONOSCOPY ESOPHAGOGASTRODUODENOSCOPY PROCEDURE: RI ESOPHAGOGASTRODUODENOSCOPY TRANSORAL DIAGNOSTIC OTHER SURGICAL HISTORY Right PROCEDURE: RI STAB PHLEBT VARICOSE VEINS 1 XTR > [...] of Steps 1 Prior Function Level of Model Independent with mobility and functional transfers Ambulation Status Household ambulator Receives Help From patron attendant (47HRS/WK) Indoor Mobility Assistance Needed Some [...] 2-5 days per week PT Discharge Recommendations [facility] facility placement PT - Evaluation Status Complete [...] 2-5 days per week PT Discharge Recommendations: [facility] facility placement Encounter Problems Encounter Problems (Active) [...] Verbalizes Understanding Comment: discussed POC while at [facility] Mobility Training, taught by Stephany Cifuentes PT at 06/15/2024 12:17 PM. Learner: Patient Readiness: Acceptance Method: Explanation Response: Verbalizes Understanding Comment: discussed POC while at [facility] Education Comments No comments found. Stephany [...] from the original note were not included. GONVICK PROGRESS NOTE Date: 06/14/2024 Author: Liang Uribe MD Patient ID: Jonny Gordon is a 64 y.o. male : 1960 MR#: [id number] SUBJECTIVE Subjective Patient seen and examined bedside [...] daily -Patient follows up with urology at [facility] however he is not happy with his [...] infectious concerns): [] Yes / [x] No Visitor Services Coordinator: [] Yes / [x] No If YES, Cardiac Rhythm: [x] NSR, [] SB, [] ST, [] A-FIB, [] A-Flutter, [] Pacemaker, [] 1st Degree HB, [] 2nd Degree HB, [] 3rd Degree HB Reason for Visitor Services Coordinator: VS: Visit Vitals BP 121/70 (BP Location: [...] infectious concerns): [] Yes / [x] No Visitor Services Coordinator: [x] Yes / [] No If YES, Cardiac Rhythm: [x] NSR, [] SB, [] ST, [] A-FIB, [] A-Flutter, [] Pacemaker, [] 1st Degree HB, [] 2nd Degree HB, [] 3rd Degree HB Reason for Visitor Services Coordinator: VS: Visit Vitals BP (!) 107/47 Pulse [...] #, Relationship) for DC Planning Elinor Cortez [phone] or sister Denver [phone] Living Arrangements Alone (has BEARING INSPECTOR 47 hours per week) Type of Residence Private residence (Duplex, has stair chair to bedroom upstairs) Assistive Devices Walker;Wheelchair Support Systems Immediate family;Other (Comment) (BEARING INSPECTOR) Medication Coverage Has Med Coverage Under Insurance [...] few steps with a walker. Patient has BEARING INSPECTOR services 47 hours per week, 37 hours Mon-Fri and 10 hours Sat/Sun. Patient's BEARING INSPECTOR Elinor in his HCP. Patient reports that he was recenly at [facility]. At this time patient declines SNF referrals. Patient is active with [facility]. Patient will need ambulance upon d/c home. Barrier to d/c: + blood cx, hematuria via alex, IV abx Dispo: home with [facility] and BEARING INSPECTOR (has BEARING INSPECTOR 37 hours Mon-Fri and 10 hours Sat/Sun). Was recently at [facility], patient declines SNF placement. Will need ambulance upon d/c * Mirta Menon RN - 06/13/2024 12:03 PM EST Patient BIBA for bright red blood noted this morning in chronic alex cath for hx hematochromotosis. Last alex change 2 days ago. Denies pain and catheter draining normally. Reports taking blood thinners. States he was called by someone at [facility] for abnormal labs and told to [...] N/A PROCEDURE: HISTORICAL COLONOSCOPY ??? ESOPHAGOGASTRODUODENOSCOPY PROCEDURE: RI ESOPHAGOGASTRODUODENOSCOPY TRANSORAL DIAGNOSTIC ??? OTHER SURGICAL HISTORY Right PROCEDURE: RI STAB PHLEBT VARICOSE VEINS 1 XTR > [...] Procedure Abnormality Status --------- ------ CBC auto differential[[id number]] Please view results for these tests on [...] associated with indwelling urethral catheter, initial encounter ([facility]) Procedures @PROCEDURENOTES@ Diagnosis 1. Bacteremia 2. Alex catheter in place Disposition Admit to Inpatient ED Prescriptions None Physician Attestation Barak Benjamin MD 06/13/24 1224 Barak Benjamin MD 06/13/24 1512 documented in this encounter H&P Notes * GIORGI Drake - 06/13/2024 3:17 PM EST Images from the original note were not included. GONVICK HISTORY AND PHYSICAL Please contact author [GIORGI Calvillo] via [employer]. Patient: Jonny Gordon Admission Date/Time: 06/13/2024 12:02 [...] urine output In the ED here at [facility] patient had Alex catheter changed. At [...] Patient follows with urology, Dr. Simon at [facility] He also follows with Dr. Sloan [...] indeterminate. Could be infectious, inflammatory or neoplastic. Ywxor-wl-zeqfzfnd size left pleural effusion and trace right pleural effusion with mild subjacent atelectasis. Cardiomegaly. Mildly dilated main pulmonary artery indicating pulmonary arterial hypertension. Hepatic cirrhosis with ascites and splenomegaly. CT Abd/Pelvis w Contrast - Cirrhotic liver with portal hypertension including kvvnczac-iz-btdjo volume ascites, splenomegaly and varices. No apparent [...] CT Angio Chest wo and/or w Contrast [[id number]] Collected: 06/12/24 0643 Order Status: Completed Updated: [...] contour and moderate volume of ascites. Splenomegaly. Wjqjw-be-pvessibz size left pleural effusion and trace right [...] recommended in 3 months to assess stability. Zpppq-qh-amjhbonm size left pleural effusion and trace right pleural effusion with mild subjacent atelectasis. Cardiomegaly. Mildly dilated main pulmonary artery indicating pulmonary arterial hypertension. Hepatic cirrhosis with ascites and splenomegaly. Please see CT abdomen/pelvis report for additionaldetails. No evidence for pulmonary artery embolus. This document has been electronically signed by: Hernan Godwin MD on 06/12/2024 06:43:23 CT Abdomen Pelvis w Contrast [[id number]] Collected: 06/12/24 0706 Order Status: Completed Updated: [...] Impression: Cirrhotic liver with portal hypertension including fkboogbk-qf-hecii volume ascites, splenomegaly and varices. No apparent [...] as needed FULL CODE HCP: hollie Aldrich [phone] PPX: Pneumoboots Case and plan discussed with: [...] bloodC/S. The pt was recently discharged from [facility] on 05/25 for UI. He then [...] COLONOSCOPY N/A PROCEDURE: HISTORICAL COLONOSCOPY ESOPHAGOGASTRODUODENOSCOPY PROCEDURE: RI ESOPHAGOGASTRODUODENOSCOPY TRANSORAL DIAGNOSTIC OTHER SURGICAL HISTORY Right PROCEDURE: RI STAB PHLEBT VARICOSE VEINS 1 XTR > [...] Signed By: Signed Date: ET Workstation ID: [id number] Transcribed By: Self Edit Transcribed Date: 06/14/2024 11:29 ET Resident/PA/VICE PRESIDENT CLIENT SERVICES: Milady Chilel Assessment/Plan Jonny Gordon is a [...] bloodC/S. The pt was recently discharged from [facility] on 05/25 for UI. He then [...] Appointment [facility] Interventional Radiology [address] [place] [phone] 08/26/2024 8:30 AM EDT Office Visit Gastroenterology - [place] [address] [facility] [address] [place] [phone] Han Sloan DO [address] [facility] [address] [place] [address] Pending Results Name Type Priority Associated Diagnoses [...] (06/15/2024 2:35 PM EST) Left Atrium Major [place] 5.9 cm CV PACS LA Area Sys [...] ECG 12 lead (06/15/2024 12:53 PM EST) [facility] Signature Ventricular Rate ECG 85 BPM GEMUSE Atrial Rate 85 BPM GEMUSE P-R Interval 126 ms GEMUSE QRS Duration 130 ms GEMUSE Q-T Interval 408 ms GEMUSE QTc 485 ms GEMUSE P Wave [place] 28 degrees GEMUSE R [place] -36 degrees GEMUSE T [place] 29 degrees GEMUSE ECG Interpretation Normal sinus rhythm Left axis deviation Right bundle branch block Abnormal ECG When compared with ECG of 12-JUN-2024 03:57, No significant change was found Confirmed by MD Felix, [facility] ([id number]) on 06/15/2024 5:37:07 PM GEMUSE 06/15/2024 12:5 3 PM EST 06/15/2024 5:37 PM EST us Liang Uribe MD ECG ORDERABLES Fin al Result Performing Organization Address City[facility]/ZIP Co de Phone Number GEMUSE * Magnesium (06/15/2024 6:38 AM EST) Pathologist [facility] Magnesium 1.9 1.9 - 2.6 mg/dL LAB CHEMISTRY METHOD 06/15/2024 7:50 AM EST [facility] Blood Venous blood specimen / Unknown Venipuncture / Unknown 06/15/2024 6:38 AM EST 06/15/2024 7:06 AM EST Liang Uribe MD LAB BLOOD ORDERABLE S Final Result Performing Organization Address [facility] de Phone Number [facility] [address] [place] [address], * (ABNORMAL) Basic metabolic panel (06/15/2024 6:38 AM EST) Sodium 134 133 - 145 mmol/L LAB CHEMISTRY METHOD 06/15/2024 7:50 AM EST [facility] Potassium 4.2 3.5 - 5.5 mmol/L LAB CHEMISTRY METHOD 06/15/2024 7:50 AM [facility] Chloride 100 96 - 110 mmol/L LAB CHEMISTRY METHOD 06/15/2024 7:50 AM EST [facility] CO2 30 21 - 32 mmol/L LAB CHEMISTRY METHOD 06/15/2024 7:50 AM EST [facility] Anion Gap 4 3 - 11 LAB CHEMISTRY METHOD 06/15/2024 7:50 AM [facility] Glucose 115(H) 70 - 100 mg/dL LAB CHEMISTRY METHOD 06/15/2024 7:50 AM [facility] BUN 11 5 - 25 mg/dL LAB CHEMISTRY METHOD 06/15/2024 7:50 AM [facility] Creatinine 0.48(L) 0.70 - 1.30 mg/dL LAB CHEMISTRY METHOD 06/15/2024 7:50 AM [facility] eGFR 114 >=60 mL/min/1. 73m2 LAB CHEMISTRY METHOD 06/15/2024 7:50 AM [facility] Comment:Calculation based on the??Chronic Kidney Disease Epidemiology Collaboration (CKD-EPI) equation refit??without adjustment for race. BUN/Creatinine Ratio 22.9 LAB CHEMISTRY METHOD 06/15/2024 7:50 AM [facility] Calcium 8.2(L) 8.5 - 10.5 mg/dL LAB CHEMISTRY METHOD 06/15/2024 7:50 AM [facility] Blood Venous blood specimen / Unknown Venipuncture / Unknown 06/15/2024 6:38 AM EST 06/15/2024 7:06 AM EST Liang Uribe MD LAB BLOOD ORDERABLE S Final Result [facility] [address] [place] [address], * (ABNORMAL) Complete blood count (06/15/2024 6:38 AM EST) WBC 4.1(L) 4.8 - 10.8 K/[facility] LAB HEMETOLOGY METHOD 06/15/2024 7:42 AM EST [facility] RBC 3.50(L) 4.50 - 5.50 M/[facility] LAB HEMETOLOGY METHOD 06/15/2024 7:42 AM [facility] Hemoglobin 11.9(L) 13.5 - 17.5 g/dL LAB HEMETOLOGY METHOD 06/15/2024 7:42 AM [facility] Hematocrit 35.3(L) 42.0 - 54.0 % LAB HEMETOLOGY METHOD 06/15/2024 7:42 AM [facility] MCV 102.3(H) 79.0 - 98.0 FL LAB HEMETOLOGY METHOD 06/15/2024 7:42 AM [facility] MCH 34.5(H) 27.0 - 32.0 pcg LAB HEMETOLOGY METHOD 06/15/2024 7:42 AM [facility] MCHC 33.7 32.0 - 37.0 g/dL LAB HEMETOLOGY METHOD 06/15/2024 7:42 AM [facility] RDW 17.0(H) 11.0 - 15.0 % LAB HEMETOLOGY METHOD 06/15/2024 7:42 AM [facility] Platelets 81(L) 130 - 400 K/mcL LAB HEMETOLOGY METHOD 06/15/2024 7:42 AM [facility] Comment:previously verified by slide MPV 11.0 7.0 - 11.0 FL LAB HEMETOLOGY METHOD 06/15/2024 7:42 AM [facility] NRBC 0.0 <1.0 % LAB HEMETOLOGY METHOD 06/15/2024 7:42 AM [facility] NRBC Absolute 0.00 <0.10 K/mcL LAB HEMETOLOGY METHOD 06/15/2024 7:42 AM [facility] Blood Venous blood specimen / Unknown Venipuncture / Unknown 06/15/2024 6:38 AM EST 06/15/2024 7:06 AM EST Liang Uribe MD LAB BLOOD ORDERABLE S Final Result Performing Organization Address [facility]/ZIP Co de Phone Number [facility] [address] [place] [address], [place] [phone] * Phosphorus (06/15/2024 6:38 AM EST) Phosphorus 3.0 2.5 - 4.5 mg/dL LAB CHEMISTRY METHOD 06/15/2024 7:50 AM EST [facility] Blood Venous blood specimen / Unknown Venipuncture / Unknown 06/15/2024 6:38 AM EST 06/15/2024 7:06 AM EST Liang Uribe MD LAB BLOOD ORDERABLE S Final Result Performing Organization Address [facility]/ZIP Co de Phone Number [facility] [address] [place] [address], [place] [phone] * Differential body fluid (06/14/2024 10:19 AM EST) Fluid Neutrophils % 4 % 06/14/2024 11:38 AM EST [facility] Fluid Lymphocytes % 74 % 06/14/2024 11:38 AM [facility] Fluid Monocytes/Macrop hages 22 % 06/14/2024 11:38 AM [facility] Fluid Eosinophils % 0 % 06/14/2024 11:38 AM EST [facility] Fluid Basophils % 0 % 06/14/2024 11:38 AM EST [facility] Fluid Other Cells % 0 % 06/14/2024 11:38 AM [facility] Peritoneal Fluid Peritoneal cavity structure / Unknown Non-blood Collection / Unknown 06/14/2024 10:19 AM EST 06/14/2024 10:27 AM EST Narrative [facility] - 06/14/2024 11:38 AM EST No reference ranges have been established for body fluids. Clinical correlation recommended. Cristiana RAND LAB BODY FLUIDS AND STO OLS ORDERABLES Final Result Performing Organization Address [facility] Co de Phone Number [facility] [address] [place] [address], [place] [phone] * Cell count with reflex differential, body fluid (06/14/2024 10:19 AM EST) Body Fluid Total Nucleated Cells 218 /mm3 LAB HEMETOLOGY METHOD 06/14/2024 11:38 AM EST [facility] Body Fluid RBC 1,000 /mm3 LAB HEMETOLOGY METHOD 06/14/2024 11:38 AM EST [facility] Body Fluid Color Yellow 06/14/2024 11:38 AM EST [facility] Body Fluid Clarity Clear 06/14/2024 11:38 AM EST [facility] Body Fluid Source Peritoneal 06/14/2024 11:38 AM EST [facility] Peritoneal Fluid Peritoneal cavity structure / Unknown Non-blood Collection / Unknown 06/14/2024 10:19 AM EST 06/14/2024 10:27 AM EST Narrative [facility] - 06/14/2024 11:38 AM EST No reference ranges have been established for body fluids. Clinical correlation recommended. Cristiana RAND LAB BODY FLUIDS AND STO OLS ORDERABLES Final Result Performing Organization Address [facility]/ZIP Co de Phone Number [facility] [address] [place] [address], [place] [phone] * Non-gynecologic cytology (06/14/2024 10:19 AM EST) Final Diagnosis A. Peritoneal fluid, paracentesis, (ThinPrep, cell block): Negative for malignant cells. 06/17/2024 4:30 PM [facility] Specimen A Adequacy Satisfactory for evaluation 06/17/2024 4:30 PM [facility] Gross Description A. Peritoneal Cavity, : Received 115 ml of yellow fluid; 1 ThinPrep, 1 Cell block Cell block in formalin @1500; total formalin fixation time 6 hours. 06/17/2024 4:30 PM [facility] Disclaimer Unless otherwise specified, all tissue is 10% NB formalin fixed and paraffin embedded. Technical cytopathology services provided by [facility], at [address] [place] [id number] (CLIA # [id number]/Katya Lo MD, Outpatient Coder.) 06/17/2024 4:30 PM [facility] Peritoneal Fluid Peritoneal cavity structure / Unknown Non-blood Collection / Unknown 06/14/2024 10:19 AM EST 06/14/2024 2:30 PM EST Cristiana RAND LAB CYTOLOGY ORDERABLES Final Result Performing Organization Address City[facility] Co de Phone Number [facility] [address] [place] [address], [place] [phone] * Specific gravity, body fluid (06/14/2024 10:19 AM EST) Spec Grav, Fluid 1.014 06/14/2024 11:01 AM [facility] Peritoneal Fluid Non-blood Collection / Unknown 06/14/2024 10:19 AM EST 06/14/2024 10:26 AM EST Narrative [facility] - 06/14/2024 11:01 AM EST No reference ranges have been established for body fluids. Clinical correlation recommended. Cristiana RAND LAB BODY FLUIDS AND STO OLS ORDERABLES Final Result [facility] [address] [place] [address], [place] [phone] * Amylase, body fluid (06/14/2024 10:19 AM EST) Amylase, Fluid 24 See Comment unit/L LAB CHEMISTRY METHOD 06/14/2024 11:19 AM EST [facility] Peritoneal Fluid Non-blood Collection / Unknown 06/14/2024 10:19 AM EST 06/14/2024 10:26 AM EST [facility] LAB - 06/14/2024 11:19 AM EST No reference ranges have been established for body fluids. Clinical correlation recommended. us Cristiana RAND LAB BODY FLUIDS AND STO OLS ORDERABLES Final Result Performing Organization Address [facility] de Phone Number [facility] [address] [place] [address], [place] [phone] * Glucose, body fluid (06/14/2024 10:19 AM EST) Glucose, Fluid 150 See Comment mg/dL LAB CHEMISTRY METHOD 06/14/2024 11:28 AM EST [facility] Ascites 06/14/2024 10:1 9 AM EST 06/14/2024 10:26 AM EST [facility] LAB - 06/14/2024 11:28 AM EST No reference ranges have been established for body fluids. Clinical correlation recommended. us Cristiana RAND LAB BODY FLUIDS AND STO OLS ORDERABLES Final Result Performing Organization Address [facility] Co de Phone Number [facility] [address] [place] [address], [place] [phone] * Lactate dehydrogenase, body fluid (06/14/2024 10:19 AM EST) LD, Fluid 78 See Comment unit/L LAB CHEMISTRY METHOD 06/14/2024 11:42 AM EST [facility] Peritoneal Fluid Peritoneal cavity structure / Unknown Non-blood Collection / Unknown 06/14/2024 10:19 AM EST 06/14/2024 10:27 AM EST [facility] LAB - 06/14/2024 11:42 AM EST No reference ranges have been established for body fluids. Clinical correlation recommended. Cristiana RAND LAB BODY FLUIDS AND STO OLS ORDERABLES Final Result Performing Organization Address [facility]/ZIP Co de Phone Number [facility] [address] [place] [address], [place] [phone] * Protein, body fluid (06/14/2024 10:19 AM EST) Protein, Fluid 1.4 See Comment g/dL LAB CHEMISTRY METHOD 06/14/2024 11:19 AM EST [facility] Peritoneal Fluid Non-blood Collection / Unknown 06/14/2024 10:19 AM EST 06/14/2024 10:26 AM EST [facility] LAB - 06/14/2024 11:19 AM EST No reference ranges have been established for body fluids. Clinical correlation recommended. Cristiana RAND LAB BODY FLUIDS AND STO OLS ORDERABLES Final Result [facility] [address] [place] [address], [place] [phone] * Albumin, body fluid (06/14/2024 10:19 AM EST) Albumin, Fluid 0.6 See Comment g/dL LAB CHEMISTRY METHOD 06/14/2024 11:19 AM EST [facility] Peritoneal Fluid Non-blood Collection / Unknown 06/14/2024 10:19 AM EST 06/14/2024 10:26 AM EST Narrative [facility] - 06/14/2024 11:19 AM EST No reference ranges have been established for body fluids. Clinical correlation recommended. Cristiana RAND LAB BODY FLUIDS AND STO OLS ORDERABLES Final Result Performing Organization Address [facility] de Phone Number [facility] [address] [place] [address], [place] [phone] * Culture body fluid with gram stain (06/14/2024 10:19 AM EST) Fluid Culture No growth at 3 days LAB MICROBIOLOGY METHOD 06/17/2024 11:25 AM EST [facility] Gram Stain Result No polymorphonuclear leukocytes, No epithelial cells, and No organisms noted 06/17/2024 11:25 AM EST [facility] Peritoneal Fluid Peritoneal cavity structure / Unknown Non-blood Collection / Unknown 06/14/2024 10:19 AM EST 06/14/2024 10:26 AM EST Cristiana RAND LAB MICROBIOLOGY - GENE RAL ORDERABLES Final Result Performing Organization Address [facility] Co de Phone Number [facility] [address] [place] [address], [place] [phone] * [place] Paracentesis w Image Guidance (06/14/2024 [...] Signed Date: 06/15/2024 12:40 ET Workstation ID: [id number] Transcribed By: Self Edit Transcribed Date: 06/14/2024 11:29 ET Resident/PA/VICE PRESIDENT CLIENT SERVICES: Milady Chilel Narrative 06/15/2024 12:40 PM EST [...] Aurora Meng Reviewed and Electronically Signed By: Taqueria, Parshant Signed Date: 06/15/2024 12:40 ET Workstation ID: [id number] Transcribed By: Self Edit Transcribed Date: 06/14/2024 11:29 ET Resident/PA/VICE PRESIDENT CLIENT SERVICES: Milady Chilel Cristiana RAND IMG US PROCEDURES Final Result * Lactate, with reflex (06/14/2024 5:26 AM EST) LACTIC ACID 1.6 0.4 - 2.0 mmol/L LAB CHEMISTRY METHOD 06/14/2024 6:03 AM EST [facility] Blood Venous blood specimen / Unknown Venipuncture / Unknown 06/14/2024 5:26 AM EST 06/14/2024 5:33 AM EST Napoleon Neely MD LAB BLOOD ORDERABLES Final Re sult Performing Organization Address [facility]/ZIP Co de Phone Number [facility] [address] [place] [address], [place] [phone] * Culture blood (06/14/2024 5:22 AM EST) [facility] Culture, Blood No growth at 5 days 06/19/2024 6:01 AM [facility] Blood Venous blood specimen / Unknown Venipuncture / Unknown 06/14/2024 5:22 AM EST 06/14/2024 5:33 AM EST Napoleon Neely MD LAB MICROBIOLOGY - GENERAL OR DERABLES Final Result Performing Organization Address [facility]/ZIP Co de Phone Number [facility] [address] [place] [address], [place] [phone] * (ABNORMAL) CBC auto differential (06/14/2024 5:14 AM EST) Pathologist [facility] WBC 4.5(L) 4.8 - 10.8 K/mcL LAB HEMETOLOGY METHOD 06/14/2024 6:00 AM EST [facility] RBC 3.30(L) 4.50 - 5.50 M/mcL LAB HEMETOLOGY METHOD 06/14/2024 6:00 AM [facility] Hemoglobin 11.6(L) 13.5 - 17.5 g/dL LAB HEMETOLOGY METHOD 06/14/2024 6:00 AM [facility] Hematocrit 35.2(L) 42.0 - 54.0 % LAB HEMETOLOGY METHOD 06/14/2024 6:00 AM [facility] MCV 107.0(H) 79.0 - 98.0 FL LAB HEMETOLOGY METHOD 06/14/2024 6:00 AM [facility] MCH 35.3(H) 27.0 - 32.0 pcg LAB HEMETOLOGY METHOD 06/14/2024 6:00 AM [facility] MCHC 33.0 32.0 - 37.0 g/dL LAB HEMETOLOGY METHOD 06/14/2024 6:00 AM [facility] RDW 17.5(H) 11.0 - 15.0 % LAB HEMETOLOGY METHOD 06/14/2024 6:00 AM [facility] Platelets 77(L) 130 - 400 K/mcL LAB HEMETOLOGY METHOD 06/14/2024 6:00 AM [facility] Comment:previously verified by slide MPV 10.3 7.0 - 11.0 FL LAB HEMETOLOGY METHOD 06/14/2024 6:00 AM [facility] NRBC 0.0 <1.0 % LAB HEMETOLOGY METHOD 06/14/2024 6:00 AM [facility] NRBC Absolute 0.00 <0.10 K/mcL LAB HEMETOLOGY METHOD 06/14/2024 6:00 AM [facility] Neutrophils Relative 75.4 % LAB HEMETOLOGY METHOD 06/14/2024 6:00 AM [facility] Lymphocytes Relative 13.9 % LAB HEMETOLOGY METHOD 06/14/2024 6:00 AM [facility] Monocytes Relative 9.7 % LAB HEMETOLOGY METHOD 06/14/2024 6:00 AM [facility] Eosinophils Relative 0.4 % LAB HEMETOLOGY METHOD 06/14/2024 6:00 AM [facility] Basophils Relative 0.4 % LAB HEMETOLOGY METHOD 06/14/2024 6:00 AM [facility] Immature Granulocytes Relative 0.2 % LAB HEMETOLOGY METHOD 06/14/2024 6:00 AM [facility] Neutrophils Absolute 3.35 1.50 - 7.00 K/mcL LAB HEMETOLOGY METHOD 06/14/2024 6:00 AM [facility] Lymphocytes Absolute 0.62(L) 1.00 - 5.00 K/mcL LAB HEMETOLOGY METHOD 06/14/2024 6:00 AM [facility] Monocytes Absolute 0.43 0.20 - 1.00 K/mcL LAB HEMETOLOGY METHOD 06/14/2024 6:00 AM [facility] Eosinophils Absolute 0.02 0.00 - 0.50 K/mcL LAB HEMETOLOGY METHOD 06/14/2024 6:00 AM [facility] Basophils Absolute 0.02 0.00 - 0.20 K/mcL LAB HEMETOLOGY METHOD 06/14/2024 6:00 AM [facility] Immature Granulocytes Absolute 0.01 0.00 - 0.03 K/mcL LAB HEMETOLOGY METHOD 06/14/2024 6:00 AM [facility] Blood Venous blood specimen / Unknown Venipuncture / Unknown 06/14/2024 5:14 AM EST 06/14/2024 5:34 AM EST us Napoleon Neely MD LAB BLOOD ORDERABLES Final Re sult Performing Organization Address [facility]/ZIP Co de Phone Number [facility] [address] [place] [address], [place] [phone] * Magnesium (06/14/2024 5:14 AM EST) Magnesium 1.9 1.9 - 2.6 mg/dL LAB CHEMISTRY METHOD 06/14/2024 5:57 AM EST [facility] Blood Venous blood specimen / Unknown Venipuncture / Unknown 06/14/2024 5:14 AM EST 06/14/2024 5:34 AM EST us Napoleon Neely MD LAB BLOOD ORDERABLES Final Re sult Performing Organization Address [facility]/ZIP Co de Phone Number [facility] [address] [place] [address], [place] [phone] * (ABNORMAL) Basic metabolic panel (06/14/2024 5:14 AM EST) Pathologist [facility] Sodium 133 133 - 145 mmol/L LAB CHEMISTRY METHOD 06/14/2024 5:57 AM [facility] Potassium 3.8 3.5 - 5.5 mmol/L LAB CHEMISTRY METHOD 06/14/2024 5:57 AM [facility] Chloride 99 96 - 110 mmol/L LAB CHEMISTRY METHOD 06/14/2024 5:57 AM [facility] CO2 31 21 - 32 mmol/L LAB CHEMISTRY METHOD 06/14/2024 5:57 AM [facility] Anion Gap 3 3 - 11 LAB CHEMISTRY METHOD 06/14/2024 5:57 AM [facility] Glucose 131(H) 70 - 100 mg/dL LAB CHEMISTRY METHOD 06/14/2024 5:57 AM [facility] BUN 13 5 - 25 mg/dL LAB CHEMISTRY METHOD 06/14/2024 5:57 AM [facility] Creatinine 0.56(L) 0.70 - 1.30 mg/dL LAB CHEMISTRY METHOD 06/14/2024 5:57 AM [facility] eGFR 109 >=60 mL/min/1. 73m2 LAB CHEMISTRY METHOD 06/14/2024 5:57 AM [facility] Comment:Calculation based on the??Chronic Kidney Disease Epidemiology Collaboration (CKD-EPI) equation refit??without adjustment for race. BUN/Creatinine Ratio 23.2 LAB CHEMISTRY METHOD 06/14/2024 5:57 AM [facility] Calcium 8.2(L) 8.5 - 10.5 mg/dL LAB CHEMISTRY METHOD 06/14/2024 5:57 AM [facility] Blood Venous blood specimen / Unknown Venipuncture / Unknown 06/14/2024 5:14 AM EST 06/14/2024 5:34 AM EST us Napoleon Neely MD LAB BLOOD ORDERABLES Final Re sult [facility] [address] [place] [address], [place] [phone] * Culture blood (06/14/2024 5:14 AM EST) Culture, Blood No growth at 5 days 06/19/2024 6:01 AM [facility] Blood Venous blood specimen / Unknown Venipuncture / Unknown 06/14/2024 5:14 AM EST 06/14/2024 5:33 AM EST us Napoleon Neely MD LAB MICROBIOLOGY - GENERAL OR DERABLES Final Result [facility] [address] [place] [address], [place] [phone] * (ABNORMAL) Lactate, with reflex (06/13/2024 3:34 PM EST) LACTIC ACID 2.6(H) 0.4 - 2.0 mmol/L LAB CHEMISTRY METHOD 06/13/2024 4:40 PM EST [facility] Blood Venous blood specimen / Unknown Venipuncture / Unknown 06/13/2024 3:34 PM EST 06/13/2024 4:07 PM EST Barak Benjamin MD LAB BLOOD ORDERABLES Berenice l Result Performing Organization Address [facility]/ZIP Co de Phone Number [facility] [address] [place] [address], * Prostate specific antigen screen (06/13/2024 12:37 PM EST) [facility] PSA 0.18 0.00 - 4.00 ng/mL LAB CHEMISTRY METHOD 06/13/2024 2:31 PM EST [facility] Blood Venous blood specimen / Unknown Venipuncture / Unknown 06/13/2024 12:37 PM EST 06/13/2024 12:55 PM EST Narrative [facility] - 06/13/2024 2:31 PM EST The Siemens Advia Centaur Chemiluminescent Immunoassay is used. Results obtained with different assay methods or kits cannot be used interchangeably. Results cannot be interpreted as absolute evidence of the presence or absence of malignant disease. Napoleon Neely MD LAB BLOOD ORDERABLES Final Re sult Performing Organization Address [facility]/ZIP Co de Phone Number [facility] [address] [place] [address], * (ABNORMAL) Hepatic function panel (06/13/2024 12:37 PM EST) Pathologist [facility] Total Protein 5.9(L) 6.0 - 8.0 g/dL LAB CHEMISTRY METHOD 06/13/2024 2:25 PM EST [facility] Albumin 2.3(L) 3.2 - 5.0 g/dL LAB CHEMISTRY METHOD 06/13/2024 2:25 PM EST [facility] Total Bilirubin 2.6(H) 0.0 - 1.4 mg/dL LAB CHEMISTRY METHOD 06/13/2024 2:25 PM EST [facility] Bilirubin, Direct 1.4(H) 0.0 - 0.3 mg/dL LAB CHEMISTRY METHOD 06/13/2024 2:25 PM EST [facility] Bilirubin, Indirect 1.2(H) 0.0 - 1.1 mg/dL LAB CHEMISTRY METHOD 06/13/2024 2:25 PM [facility] ALT (SGPT) 20 10 - 60 unit/L LAB CHEMISTRY METHOD 06/13/2024 2:25 PM [facility] AST (SGOT) 32 10 - 42 unit/L LAB CHEMISTRY METHOD 06/13/2024 2:25 PM [facility] Alkaline Phosphatase 133(H) 42 - 121 unit/L LAB CHEMISTRY METHOD 06/13/2024 2:25 PM [facility] Blood Venous blood specimen / Unknown Venipuncture / Unknown 06/13/2024 12:37 PM EST 06/13/2024 12:55 PM EST us Napoleon Neely MD LAB BLOOD ORDERABLES Final Re sult [facility] [address] [place] [address], * (ABNORMAL) C-reactive protein (06/13/2024 12:37 PM EST) C-Reactive Protein 10.20(H) <=0.50 mg/dL LAB CHEMISTRY METHOD 06/13/2024 2:25 PM EST [facility] Blood Venous blood specimen / Unknown Venipuncture / Unknown 06/13/2024 12:37 PM EST 06/13/2024 12:55 PM EST us Napoleon Neely MD LAB BLOOD ORDERABLES Final Re sult [facility] [address] [place] [address], [place] [phone] * (ABNORMAL) Basic metabolic panel (06/13/2024 12:37 PM EST) Sodium 133 133 - 145 mmol/L LAB CHEMISTRY METHOD 06/13/2024 1:21 PM [facility] Potassium 4.0 3.5 - 5.5 mmol/L LAB CHEMISTRY METHOD 06/13/2024 1:21 PM [facility] Chloride 102 96 - 110 mmol/L LAB CHEMISTRY METHOD 06/13/2024 1:21 PM [facility] CO2 26 21 - 32 mmol/L LAB CHEMISTRY METHOD 06/13/2024 1:21 PM [facility] Anion Gap 5 3 - 11 LAB CHEMISTRY METHOD 06/13/2024 1:21 PM [facility] Glucose 178(H) 70 - 100 mg/dL LAB CHEMISTRY METHOD 06/13/2024 1:21 PM [facility] BUN 13 5 - 25 mg/dL LAB CHEMISTRY METHOD 06/13/2024 1:21 PM [facility] Creatinine 0.65(L) 0.70 - 1.30 mg/dL LAB CHEMISTRY METHOD 06/13/2024 1:21 PM [facility] eGFR 104 >=60 mL/min/1. 73m2 LAB CHEMISTRY METHOD 06/13/2024 1:21 PM [facility] Comment:Calculation based on the??Chronic Kidney Disease Epidemiology Collaboration (CKD-EPI) equation refit??without adjustment for race. BUN/Creatinine Ratio 20.0 LAB CHEMISTRY METHOD 06/13/2024 1:21 PM [facility] Calcium 8.2(L) 8.5 - 10.5 mg/dL LAB CHEMISTRY METHOD 06/13/2024 1:21 PM EST [facility] Blood Venous blood specimen / Unknown Venipuncture / Unknown 06/13/2024 12:37 PM EST 06/13/2024 12:55 PM EST Barak Benjamin MD LAB BLOOD ORDERABLES Berenice l Result [facility] [address] [place] [address], * (ABNORMAL) CBC auto differential (06/13/2024 12:37 PM EST) WBC 6.9 4.8 - 10.8 K/mcL LAB HEMETOLOGY METHOD 06/13/2024 1:10 PM [facility] RBC 3.20(L) 4.50 - 5.50 M/mcL LAB HEMETOLOGY METHOD 06/13/2024 1:10 PM [facility] Hemoglobin 11.0(L) 13.5 - 17.5 g/dL LAB HEMETOLOGY METHOD 06/13/2024 1:10 PM [facility] Hematocrit 32.8(L) 42.0 - 54.0 % LAB HEMETOLOGY METHOD 06/13/2024 1:10 PM [facility] MCV 104.1(H) 79.0 - 98.0 FL LAB HEMETOLOGY METHOD 06/13/2024 1:10 PM [facility] MCH 34.9(H) 27.0 - 32.0 pcg LAB HEMETOLOGY METHOD 06/13/2024 1:10 PM [facility] MCHC 33.5 32.0 - 37.0 g/dL LAB HEMETOLOGY METHOD 06/13/2024 1:10 PM [facility] RDW 17.6(H) 11.0 - 15.0 % LAB HEMETOLOGY METHOD 06/13/2024 1:10 PM [facility] Platelets 74(L) 130 - 400 K/mcL LAB HEMETOLOGY METHOD 06/13/2024 1:10 PM [facility] Comment:previously verified by slide MPV 11.2(H) 7.0 - 11.0 FL LAB HEMETOLOGY METHOD 06/13/2024 1:10 PM [facility] NRBC 0.0 <1.0 % LAB HEMETOLOGY METHOD 06/13/2024 1:10 PM [facility] NRBC Absolute 0.00 <0.10 K/mcL LAB HEMETOLOGY METHOD 06/13/2024 1:10 PM [facility] Neutrophils Relative 87.5 % LAB HEMETOLOGY METHOD 06/13/2024 1:10 PM [facility] Lymphocytes Relative 5.5 % LAB HEMETOLOGY METHOD 06/13/2024 1:10 PM [facility] Monocytes Relative 6.4 % LAB HEMETOLOGY METHOD 06/13/2024 1:10 PM [facility] Eosinophils Relative 0.1 % LAB HEMETOLOGY METHOD 06/13/2024 1:10 PM [facility] Basophils Relative 0.1 % LAB HEMETOLOGY METHOD 06/13/2024 1:10 PM [facility] Immature Granulocytes Relative 0.4 % LAB HEMETOLOGY METHOD 06/13/2024 1:10 PM [facility] Neutrophils Absolute 6.01 1.50 - 7.00 K/mcL LAB HEMETOLOGY METHOD 06/13/2024 1:10 PM [facility] Lymphocytes Absolute 0.38(L) 1.00 - 5.00 K/mcL LAB HEMETOLOGY METHOD 06/13/2024 1:10 PM [facility] Monocytes Absolute 0.44 0.20 - 1.00 K/mcL LAB HEMETOLOGY METHOD 06/13/2024 1:10 PM EST [facility] Eosinophils Absolute 0.01 0.00 - 0.50 K/mcL LAB HEMETOLOGY METHOD 06/13/2024 1:10 PM EST [facility] Basophils Absolute 0.01 0.00 - 0.20 K/[facility] LAB HEMETOLOGY METHOD 06/13/2024 1:10 PM EST [facility] Immature Granulocytes Absolute 0.03 0.00 - 0.03 K/[facility] LAB HEMETOLOGY METHOD 06/13/2024 1:10 PM EST [facility] Blood Venous blood specimen / Unknown Venipuncture / Unknown 06/13/2024 12:37 PM EST 06/13/2024 12:55 PM EST Barak Benjamin MD LAB BLOOD ORDERABLES Berenice l Result [facility] [address] [place] [address], [place] [phone] * (ABNORMAL) Lactate, with reflex (06/13/2024 12:37 PM EST) LACTIC ACID 2.9(H) 0.4 - 2.0 mmol/L LAB CHEMISTRY METHOD 06/13/2024 1:26 PM EST [facility] Blood Venous blood specimen / Unknown Venipuncture / Unknown 06/13/2024 12:37 PM EST 06/13/2024 12:55 PM EST Barak Benjamin MD LAB BLOOD ORDERABLES Berenice l Result [facility] [address] [place] [address], [place] [phone] documented in this encounter Visit Diagnoses Diagnosis Pseudomonal bacteremia- Primary Bacteremia Alex catheter in place Other postprocedural status Urinary tract infection associated with indwelling urethral catheter, initial encounter ([facility]) Hx of ascites Anasarca Edema [...] Nightly, First dose on Fri06/13/24 at 2100 Given 06/15/2024 9:32 PM EST [...] mg, oral, Nightly PRN, sleep, Starting on Fri06/13/24 at 1700 Given 06/15/2024 9:40 PM EST [...] Hayes RN)1219 (Given - Provider: Maria G Mccarty RN)2053 (Given - Provider: Sisi Barber RN) 0536 (Given - Provider: Sisi Barber RN - Comment: q8; given @2100)1307 (Given - Provider: Ruchi Pedro RN)213 (Given - Provider: Sisi Barber RN) 0504 (Given - Provider: Sisi Barber RN)1300 (Given - Provider: Saskia George, VIVIAN) cholecalciferol (VITAMIN D-3) tablet 2,000 Units 2,000 Units, oral, Daily, First dose on 06/13/24 at 1701, 1000 units = 25 mcg of cholecalciferol (VITAMIN D3) 0847 (Given - Provider: Maria G Mccarty RN) 0833 (Given - Provider: Ruchi Pedro RN) 0919 (Given - Provider: Saskia Ariel, RN) furosemide (LASIX) tablet 20 mg 20 mg, oral, Every 24 hours, First dose on Fri06/14/24 at 1500, 40mg in AM and 20mg in PM 1519 (Given - Provider: Jamel Holder RN) 1721 (Given - Provider: Ruchi Pedro, RN) 1424 (Given - Provider: Saskia George, RN) furosemide (LASIX) tablet 40 mg 40 mg, oral, Daily, First dose (after last modification) on Fri06/14/24 at 0900 0847 (Given - Provider: Maria G Mccarty, VIVIAN) 0833 (Given - Provider: Ruchi Pedro, VIVIAN) 0921 (Given - Provider: Saskia George, RN) [...] 0921 (Given - Provider: Saskia George, RN) perflutren lipid microsphere (DEFINITY) 1.3 mL in [...] constipation 0847 (Given - Provider: Maria G Mccarty RN) 0833 (Given - Provider: Ruchi Pedro RN) 0919 (Given - Provider: Saskia George, RN) sodium chloride 0.9 % flush 10 mL(Linked Group 1) 10 mL, intravenous, 2 times daily, First dose on Fri06/13/24 at 1405 0857 (Given - Provider: Maria G Mccarty, VIVIAN)210 (Given - Provider: Sisi Barber, RN) 0833 (Given - Provider: Ruchi Pedro, VIVIAN)213 (Given - Provider: Sisi Barber, RN) 0923 (Given - Provider: Saskia George, RN)1302 (Given - Provider: Saskia George, RN - Comment: line maint) spironolactone (ALDACTONE) [...] Pedro RN) 0920 (Given - Provider: Saskia George, RN) tamsulosin (FLOMAX) 24 hr capsule 0.4 [...] VIVIAN) 0920 (Given - Provider: Saskia George, RN) Continuous Medication Order 06/14/2024 06/15/2024 06/16/2024 sodium chloride 0.9 % infusion (CANCELED) 100 mL/hr, intravenous, Continuous, Starting on Fri06/13/24 at 1213 0113 (Rate/Dose Verify - Provider: Patricia Hayes RN)0142 (Stopped - Provider: Patricia Hayes RN) PRN Medication Order 06/14/2024 06/15/2024 06/16/2024 [...] 1840 0854 (Given - Provider: Maria G Mccarty RN)2055 (Given - Provider: Sisi Barber, VIVIAN) 0832 [...] PRN, sleep, Starting on 06/13/24 at 1700 2055 (Given - Provider: Sisi Barber, RN) 2139 (Given - Provider: Sisi Barber, RN - Comment: mis torn unable to scan) Linked Groups Order [...] 06/16/2024 documented in this encounter Care Teams Manager Club Relationship Specialty Start Date End Date Dalia Harmon PA [address] [place] [address], [address] [place] [address] PCP - General 05/10/24 documented as of this encounter
== END 2024-07-01 10:48 | disposition home or self-care (01) ==
PROVIDERS: Visit Provider Anesthesiology
DX: G89.4 Chronic pain syndrome (principal); M87.052 Idiopathic aseptic necrosis of left femur; R18.8 Other ascites; Z79.891 Long term (current) use of opiate analgesic; Z68.42 Body mass index [BMI] 45.0-49.9, adult; E66.01 Morbid (severe) obesity due to excess calories; K74.60 Unspecified cirrhosis of liver
CPT/HCPCS: 99213

== ENCOUNTER → 2024-07-01 10:24 | Outpatient (BNVA) | payer OTHER, SELFPAY | PROVIDERS: Visit Provider Anesthesiology | DX: M87.052 Idiopathic aseptic necrosis of left femur (principal); G89.4 Chronic pain syndrome; E66.01 Morbid (severe) obesity due to excess calories; K74.60 Unspecified cirrhosis of liver; R18.8 Other ascites; Z51.81 Encounter for therapeutic drug level monitoring; Z79.891 Long term (current) use of opiate analgesic; Z68.42 Body mass index [BMI] 45.0-49.9, adult | CPT/HCPCS: 99212 ==

== ENCOUNTER → 2024-07-09 23:59 | Outpatient (BNV) | payer OTHER, SELFPAY | DX: N40.1 Benign prostatic hyperplasia with lower urinary tract symptoms (principal); E11.9 Type 2 diabetes mellitus without complications | CPT/HCPCS: G0179 ==

== ENCOUNTER 2024-07-14 08:50 | Outpatient (AMB) | payer OTHER, SELFPAY ==
[2024-07-14 08:52] VITALS: BP 120/54; PULSE 85
--- NOTE | 2024-07-14 08:52 | MHC.OFFVIS ---
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 Required: No Accompanied by: Other Relationship Allergies nystatin Adverse Reaction (Mild, Verified 07/01/24 10:29) swelling atorvastatin Adverse Reaction (Verified 07/01/24 10:29) Diarrhea Medication List - Last Reconciled 07/14/24 by Aurelio Tovar MD albuterol sulfate 90 mcg/actuation 2 puffs inhalation Q4-6H PRN 60 days albuterol sulfate 2.5 mg (0.5 mL) inhalation Q20M apixaban (Eliquis) 5 mg PO BID aspirin 81 mg PO DAILY cholecalciferol (vitamin D3) (Vitamin D3) 50 mcg PO DAILY clotrimazole 1% 1 appl topical BID furosemide 40 mg PO DAILY naloxone 4 mg/actuation 4 mg intranasal Q2M PRN 1 day nebulizers (Aeroneb Go Nebulizer) As directed oxybutynin chloride ER 5 mg PO DAILY 30 days oxycodone 10 mg PO Q4H PRN 30 days [power wheelchair As directed] rosuvastatin (Crestor) 5 mg PO DAILY spironolactone 100 mg PO BID tamsulosin 0.4 mg PO DAILY walker Folding Front wheeled walker zolpidem 10 mg PO BEDTIME PRN HPI Comments Details: Jonny returns for follow-up. Originally seen in consultation regarding preoperative risk stratification for hip surgery. He is morbidly obese and is in a wheelchair. Per previous discussion with Anesthesiology, he was thought to be high risk for anesthesia due to many comorbidities including high BMI of 55, cirrhosis, COPD, NICOLE and sedentary lifestyle. Patient himself does not have any clear-cut cardiac symptoms but he is also very sedentary and in a wheelchair. Within limits of what he can do, has not noticed any angina. His main issue seems to be rather cirrhosis and recurrent ascites and has undergone recent procedures for that. He states that he has had a lot of fluid taken out of his abdomen, presumably ascites from liver failure. 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 No natural teeth Back pain Back pain Arthritis Fatty liver History of cirrhosis of liver Avascular necrosis Hemochromatosis COPD (chronic obstructive pulmonary disease) NICOLE on CPAP Surgical History Hx of esophagogastroduodenoscopy Hx of colonoscopy [place] teeth extracted History of surgery History of back surgery (~1997) H/O discectomy (~1997) Family History Maternal Grandfather Heart attack Brother Heart attack Social History Household Members: None Housing: Apartment Are you a primary daycare director to a significant other at home: No Do you presently have visiting nurse or other home services: Yes (RADIAL DRILL PRESS 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, 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) 75 years or older and lives alone: No Patient Tobacco Use Status: Former Tobacco user Tobacco use type: Cigarette Substance Use Type: Marijuana service: No Current occupational status: unemployed Gender identity: Male Cognitive needs: No Hearing needs: No Vision needs: No Review of Systems Const Denies chills, Denies fatigue, Denies fever(s), Denies weight gain and Denies weight loss ENT Denies dizziness Card Denies chest pain, Denies leg edema, Denies lightheadedness, Denies palpitations, Denies dyspnea on exertion, Denies orthopnea and Denies other Resp Denies cough and Denies dyspnea on exertion GI Denies hematochezia and Denies change in stool character Musc Denies abnormal gait, Denies muscle weakness, Denies numbness, Denies radiating pain into limb and Denies tingling Neuro Denies abnormal gait, Denies dizziness, Denies numbness and Denies tingling Endo Denies fatigue and Denies palpitations Physical Exam Vital Signs: Last Vital Signs Pulse 85 07/14/24 08:52 BP 120/54 L 07/14/24 08:52 Const General: comfortable and no acute distress Orientation/consciousness: patient oriented x3 HEENT Other: Unremarkable Head: Yes normal to inspection Neck Neck: Yes normal visual inspection Chest Chest palpation & inspection: normal inspection of the chest Resp Auscultation: clear to auscultation bilaterally Cardio Palpation: normal PMI Heart sounds: S1 normal heart sound present, S2 normal heart sound present, no gallops, no murmurs and no rubs GI Palpation (GI): Soft to palpation Back/Spine/Pelvis Other: unremarkable Skin General skin exam: no rashes or lesions noted Neuro General: patient oriented x3 Extrem General: Yes normal to inspection Psych Mental Status: mental status grossly normal Assessment & Plan Assessment & Plan (1) Atherosclerotic cardiovascular disease: Code(s): I25.10 - Atherosclerotic heart disease of [place] coronary artery without angina pectoris Category: Medical (2) Morbidly obese: Code(s): E66.01 - Morbid (severe) obesity due to excess calories Category: Medical (3) History of cirrhosis of liver: Code(s): Z87.19 - Personal history of other diseases of the digestive system Category: Medical (4) Hemochromatosis: Code(s): E83.119 - Hemochromatosis, unspecified Category: Medical (5) NICOLE on CPAP: Code(s): G47.33 - Obstructive sleep apnea (adult) (pediatric) Category: Medical Plan Coronary CTA reviewed. Moderate to severe mixed plaque burden in the proximal to mid circumflex. 70% stenosis in the mid circumflex. Proximal to mid LAD with 25-50% stenosis. Proximal RCA also with 25-50% stenosis. Moderate sized ascites. Echocardiogram with probably preserved LVEF but difficult to assess because of poor image quality. He was seen in regards to preoperative valve for hip surgery but it does not appear that he is actually going for that. He would be considered high-risk for the procedure. With regard to the coronary disease itself, we will treat this as stable CAD. It seems he is also taking Eliquis for DVT issues. In that case, advised him to stop aspirin. When the Eliquis gets stopped, and if no bleeding concerns, consider aspirin if agreeable from liver standpoint. Again he is on very small dose of statins and I advised him to check with his land use planner about safety with cirrhosis. If considered acceptable, may continue. If not could stop. We will plan on seeing him back in about 6 months' time. Discussed with RADIAL DRILL PRESS OPERATOR who came for appointment. Coding Level of Care Code Est Pt Level 4 (54335) Complex EM visit Add On G2211 Diagnoses Atherosclerotic cardiovascular disease I25.10 Morbidly obese E66.01 History of cirrhosis of liver Z87.19 Hemochromatosis E83.119 NICOLE on CPAP G47.33
--- OUTSIDE RECORDS SUMMARY | 2024-07-14 09:33 | XMS_ITS | Encounter Summary ---
Author Organization [facility] Address [address] [place] [address] Care Team Providers Care Spooling Supervisor Name Role Phone Dalia Harmon Primary Care Provider [phone] Reason for Visit * Reason Onset Date Comments provider call back 06/14/2024 Encounter Details Date Type Department Care Team (Late st Contact Info) Description 06/14/2024 Telephone Gastroenterology - [place] [address] [place] [phone] Han Sloan DO [address] [place] [address] provider call back Social History Tobacco Use [...] Care Team (Late st Contact Info) Description 08/26/2024 8:30 AM EDT Office Visit Gastroenterology - [place] [address] [place] [phone] Han Sloan DO [address] [place] [address] documented as of this encounter Visit Diagnoses Not on filedocumented in this encounter Care Teams Spooling Supervisor Relationship Specialty Start Date End Date Dalia Harmon PA [address] [place] [address], [address] [place], [place] [id number] PCP - General 05/10/24 documented as of this encounter
--- OUTSIDE RECORDS SUMMARY | 2024-07-14 09:33 | XMS_ITS | Encounter Summary ---
Author Organization [facility] Address [address] [place] [address] Care Team Providers Care Certified Energy Manager Name Role Phone Dalia Harmon Primary Care Provider [phone] Encounter Details Date Type Department Care Team (Late st Contact Info) Description 06/04/2024 Lab Requisition [facility] - Main Lab [address] [facility] [place] [phone] Gerry Barksdale [address] [facility] [phone] [place] [address] Sepsis, unspecified organism (CMS/HCC) Social History Tobacco [...] 8:30 AM EDT Office Visit Gastroenterology - [place] [address] [place] [phone] Han Sloan DO [address] [place] [address] documented as of this encounter Procedures Procedure Name Priority Date/Time Associated Diagnosis Comments COMPLETE BLOOD COUNT Routine 06/07/2024 10:48 AM EST Sepsis, unspecified organism (CMS/HCC) BASIC METABOLIC PANEL Routine 06/07/2024 10:48 AM EST Sepsis, unspecified organism (CMS/HCC) documented in this encounter Results * (ABNORMAL) Basic metabolic panel (06/07/2024 10:48 AM EST) Sodium 137 133 - 145 mmol/L LAB CHEMISTRY METHOD 06/07/2024 12:53 PM [facility] Potassium 3.6 3.5 - 5.5 mmol/L LAB CHEMISTRY METHOD 06/07/2024 12:53 PM [facility] Chloride 103 96 - 110 mmol/L LAB CHEMISTRY METHOD 06/07/2024 12:53 PM [facility] CO2 25 21 - 32 mmol/L LAB CHEMISTRY METHOD 06/07/2024 12:53 PM [facility] Anion Gap 9 3 - 11 LAB CHEMISTRY METHOD 06/07/2024 12:53 PM [facility] Glucose 142(H) 70 - 100 mg/dL LAB CHEMISTRY METHOD 06/07/2024 12:53 PM [facility] BUN 9 5 - 25 mg/dL LAB CHEMISTRY METHOD 06/07/2024 12:53 PM [facility] Creatinine 0.58(L) 0.70 - 1.30 mg/dL LAB CHEMISTRY METHOD 06/07/2024 12:53 PM [facility] eGFR 108 >=60 mL/min/1. 73m2 LAB CHEMISTRY METHOD 06/07/2024 12:53 PM [facility] Comment:Calculation based on the??Chronic Kidney Disease Epidemiology Collaboration (CKD-EPI) equation refit??without adjustment for race. BUN/Creatinine Ratio 15.5 LAB CHEMISTRY METHOD 06/07/2024 12:53 PM [facility] Calcium 8.0(L) 8.5 - 10.5 mg/dL LAB CHEMISTRY METHOD 06/07/2024 12:53 PM [facility] Blood Venous blood specimen / Unknown Venipuncture / Unknown 06/07/2024 10:48 AM EST 06/07/2024 12:01 PM EST Gerry Barksdale LAB BLOOD ORDERABLES Final Resul t [facility] [address] [place] [address], * (ABNORMAL) Complete blood count (06/07/2024 10:48 AM EST) WBC 4.4(L) 4.8 - 10.8 K/mcL LAB HEMETOLOGY METHOD 06/07/2024 1:06 PM [facility] RBC 3.40(L) 4.50 - 5.50 M/mcL LAB HEMETOLOGY METHOD 06/07/2024 1:06 PM [facility] Hemoglobin 12.0(L) 13.5 - 17.5 g/dL LAB HEMETOLOGY METHOD 06/07/2024 1:06 PM [facility] Hematocrit 36.4(L) 42.0 - 54.0 % LAB HEMETOLOGY METHOD 06/07/2024 1:06 PM [facility] MCV 105.8(H) 79.0 - 98.0 FL LAB HEMETOLOGY METHOD 06/07/2024 1:06 PM [facility] MCH 34.9(H) 27.0 - 32.0 pcg LAB HEMETOLOGY METHOD 06/07/2024 1:06 PM EST [facility] MCHC 33.0 32.0 - 37.0 g/dL LAB HEMETOLOGY METHOD 06/07/2024 1:06 PM [facility] RDW 18.0(H) 11.0 - 15.0 % LAB HEMETOLOGY METHOD 06/07/2024 1:06 PM [facility] Platelets 108(L) 130 - 400 K/mcL LAB HEMETOLOGY METHOD 06/07/2024 1:06 PM EST [facility] MPV 10.7 7.0 - 11.0 FL LAB HEMETOLOGY METHOD 06/07/2024 1:06 PM [facility] NRBC 0.0 <1.0 % LAB HEMETOLOGY METHOD 06/07/2024 1:06 PM [facility] NRBC Absolute 0.00 <0.10 K/mcL LAB HEMETOLOGY METHOD 06/07/2024 1:06 PM [facility] Blood Venous blood specimen / Unknown Venipuncture / Unknown 06/07/2024 10:48 AM EST 06/07/2024 12:01 PM EST Gerry Barksdale LAB BLOOD ORDERABLES Final Resul t [facility] [address] [place] [address], documented in this encounter Visit Diagnoses Diagnosis Sepsis, unspecified organism (CMS/HCC) documented in this encounter Care Teams Certified Energy Manager Relationship Specialty Start Date End Date Dalia Harmon PA [address] [facility], [address] [place] [address] PCP - General 05/10/24 documented as of this encounter
--- OUTSIDE RECORDS SUMMARY | 2024-07-14 09:33 | XMS_ITS | Clinical Summary ---
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 deflating the balloon. A repeat portal venogram wasperformed using a marking pigtail catheter for stent sizing. At this pointwe noted that the sheath takes an unusual course toward the main portalvein and appears to traverse through a smaller branch portal vein ratherthan the main right portal vein. We therefore performed a pull backvenogram through the sheath leaving the wire and place. This confirms that we are traversing through a smaller branch portal vein. Italso confirms that there is no extravasation or definite extravascularcourse. We elected to place the tips stent through this access since wealready dilated the tract and the sheath was through and through. TwoViatorr 8 cm covered 2 cm uncovered TIPS stent were then deployed withapproximately 3 cm of overlap and postdilated with the 8 mm balloon. Aportal venogram demonstrates satisfactory positioning of the TIPS stentextending from the main portal vein to the confluence of the hepatic veinand IVC. The TIPS stent is widely patent. There is also flow going intothe right and left portal veins. Repeat portal venous pressures andhepatic venous and right atrial pressures were obtained. Theportal-systemic gradient is now 10 mm Hg. Satisfied with our result, weelected to terminate the procedure. The wires and catheters were removed.The right IJ sheath was removed and hemostasis was achieved with manual compression. Dermabond was applied at the access site. Steriledressings were applied. The patient tolerated the procedure well with noimmediate complications and was transferred to recovery in stablecondition. EBL: 30 cc Complications: None immediately IMPRESSION: Placement of a TIPS stent with improvement in portosystemic gradient asdetailed above -------- FINAL REPORT -------- Dictated By: Paul Bonner Dictated Date: 07/06/2024 17:09 ET Assigned Physician: Paul Bonner Reviewed and Electronically Signed By: Paul Bonner Signed Date: 07/06/2024 17:22 ET Workstation ID: [id number] Transcribed By: Self Edit Transcribed Date: 07/06/2024 17:09 ET us Job Anderson MD IMG IR PROCEDURES Final Re sult * TH AN ENDOTRACHEAL(NO CHARGE) (07/06/2024 3:00 PM EDT) Yovanny Higgins CRNA - 07/06/2024 3:00 PM EDT Yovanny Mendez CRNA ? 07/06/2024 ??3:01 PM General Information and Staff Patient location during procedure: OR Resident/HYDROPULPER: Yovanny Mendez CRNA Performed: resident/HYDROPULPER/CAA Performed by: Yovanny Mendez CRNA Authorized by: Juan Antonio Hutchinson MD ?? Intubation Airway not difficult Urgency: elective Final Airway Details Successful airway: ETT Cuffed: yes Successful intubation technique: direct laryngoscopy Facilitating devices/methods: intubating stylet Endotracheal tube insertion site: oral Blade: Byron Blade size: #3 ETT size (mm): 7.5 Cormack-Lehane Classification: grade I - full view of glottis Placement verified by: chest auscultation and capnometry Measured from: gums ETT to gums (cm): 22 Number of attempts at approach: 1Final airway type: endotracheal airway Indications and Patient Condition Indications for airway management: anesthesia Spontaneous ventilation: present Sedation level: Yes Preoxygenated: yes Soft Tissue Damage: No Dentition Unchanged: Yes Patient position: sniffing MILS maintained throughout Mask difficulty assessment: 0 - not attempted us Juan Antonio Hutchinson MD ANESTHESIA ORDERABLES Final Re sult * TH AN ARTERIAL LINE (CHARGE) (07/06/2024 2:49 PM EDT) Yovanny Higgins CRNA - 07/06/2024 2:49 PM EDT Yovanny Mendez CRNA ? 07/06/2024 ??2:52 PM Arterial Line Performed by: Yovanny Mendez CRNA Authorized by: Malini Kebede MD ??Consent: Verbal consent obtained. Written consent obtained. Risks and benefits: risks, benefits and alternatives were discussed Consent given by: patient Patient understanding: patient states understanding of the procedure being performed Patient consent: the patient's understanding of the procedure matches consent given Procedure consent: procedure consent matches procedure scheduled Relevant documents: relevant documents present and verified Patient identity confirmed: verbally with patient and arm band Indications: hemodynamic monitoring Location: left radial Sedation: Patient sedated: yes Sedatives: see MAR for details Mario Alberto's test normal: yes Needle gauge: 20 Number of attempts: 2 Post-procedure: dressing applied Patient tolerance: patient tolerated the procedure well with no immediate complications Comments: General anesthesia Access assist surgeon Start Time: 07/06/2024 2:40 PMStop Time: 07/06/2024 2:49 PM Staffing Anesthesiologist: Malini Kebede MD Malini Kebede MD ANESTHESIA ORDERABLES Fin al Result * (ABNORMAL) Protime-INR (07/06/2024 1:45 PM EDT) Only the most recent of5 resultswithin the time period is included. Protime 15.9(H) 10.6 - 13.9 sec LAB COAGULATION METHOD 07/06/2024 2:28 PM EDT [facility] INR 1.3 LAB COAGULATION METHOD 07/06/2024 2:28 PM EDT [facility] Blood Venous blood specimen / Unknown 07/06/2024 1:45 PM EDT 07/06/2024 1:55 PM EDT Paul Bonner MD LAB BLOOD ORDERABLES Final Resu lt [facility] [address] [place] [address], [place] [phone] * Type and screen (07/06/2024 1:45 PM EDT) ABO Group B 07/06/2024 2:47 PM EDT [facility] Rh Type Positive 07/06/2024 2:47 PM EDT [facility] Antibody Screen Negative 07/06/2024 2:47 PM EDT [facility] Blood Venous blood specimen / Unknown 07/06/2024 1:45 PM EDT 07/06/2024 1:55 PM EDT Paul Alfaro LAB BLOOD BANK TEST ORDERABLES Final Result [facility] [address] [place] [address], [place] [phone] * (ABNORMAL) Basic metabolic panel (07/06/2024 1:45 PM EDT) Only the most recent of13 resultswithin the time period is included. Sodium 135 133 - 145 mmol/L LAB CHEMISTRY METHOD 07/06/2024 2:[address] [facility] Potassium 5.0 3.5 - 5.5 mmol/L LAB CHEMISTRY METHOD 07/06/2024 2:[address] [facility] Comment:Hemolysis present Chloride 100 96 - 110 mmol/L LAB CHEMISTRY METHOD 07/06/2024 2:[address] [facility] CO2 25 21 - 32 mmol/L LAB CHEMISTRY METHOD 07/06/2024 2:[address] [facility] Anion Gap 10 3 - 11 LAB CHEMISTRY METHOD 07/06/2024 2:[address] [facility] Glucose 161(H) 70 - 100 mg/dL LAB CHEMISTRY METHOD 07/06/2024 2:[address] [facility] BUN 8 5 - 25 mg/dL LAB CHEMISTRY METHOD 07/06/2024 2:[address] [facility] Creatinine 0.70 0.70 - 1.30 mg/dL LAB CHEMISTRY METHOD 07/06/2024 2:[address] [facility] eGFR 102 >=60 mL/min/1. 73m2 LAB CHEMISTRY METHOD 07/06/2024 2:21 PM EDT [facility] Comment:Calculation based on the??Chronic Kidney Disease Epidemiology Collaboration (CKD-EPI) equation refit??without adjustment for race. BUN/Creatinine Ratio 11.4 LAB CHEMISTRY METHOD 07/06/2024 2:21 PM EDT [facility] Calcium 8.7 8.5 - 10.5 mg/dL LAB CHEMISTRY METHOD 07/06/2024 2:21 PM EDT [facility] Blood Venous blood specimen / Unknown 07/06/2024 1:45 PM EDT 07/06/2024 1:55 PM EDT us Paul Bonner MD LAB BLOOD ORDERABLES Final Resu lt [facility] [address] [place] [address], [place] [phone] * (ABNORMAL) TRANSTHORACIC ECHOCARDIOGRAM (TTE) COMPLETE W/ CONTRAST (06/15/2024 2:35 PM EST) Left [facility] [place] 5.9 cm CV PACS LA Area Sys [...] GEMUSE QTc 485 ms GEMUSE P Wave [place] 28 degrees GEMUSE R [place] -36 degrees GEMUSE T [place] 29 degrees GEMUSE ECG Interpretation Normal sinus rhythm Left axis deviation Right bundle branch block Abnormal ECG When compared with ECG of 22-FEB-2025 03:57, No significant change was found Confirmed by MD Felix, Uvalda ([id number]) on 06/15/2024 5:37:07 PM GEMUSE 06/15/2024 12:5 3 PM EST 06/15/2024 5:37 PM EST us Liang Reinoso MD ECG ORDERABLES Fin al Result Performing Organization Address City/[facility]/ZIP Co de Phone Number GEMUSE * Phosphorus (06/15/2024 6:38 AM EST) Only the most recent of5 resultswithin the time period is included. [facility] Phosphorus 3.0 2.5 - 4.5 mg/dL LAB CHEMISTRY METHOD 06/15/2024 7:50 AM EST [facility] Blood Venous blood specimen / Unknown Venipuncture / Unknown 06/15/2024 6:38 AM EST 06/15/2024 7:06 AM EST us Liang Reinoso MD LAB BLOOD ORDERABLE S Final Result Performing Organization Address [facility] de Phone Number [facility] [address] [place] [address], [place] [phone] * Cell count with reflex differential, body fluid (06/14/2024 10:19 AM EST) Only the most recent of2 resultswithin the time period is included. [facility] Body Fluid Total Nucleated Cells 218 /mm3 LAB HEMETOLOGY METHOD 06/14/2024 11:38 AM EST [facility] Body Fluid RBC 1,000 /mm3 LAB HEMETOLOGY METHOD 06/14/2024 11:38 AM EST [facility] Body Fluid Color Yellow 06/14/2024 11:38 AM EST [facility] Body Fluid Clarity Clear 06/14/2024 11:38 AM EST [facility] Body Fluid Source Peritoneal 06/14/2024 11:38 AM EST [facility] Peritoneal Fluid Peritoneal cavity structure / Unknown Non-blood Collection / Unknown 06/14/2024 10:19 AM EST 06/14/2024 10:27 AM EST Narrative [facility] - 06/14/2024 11:38 AM EST No reference ranges have been established for body fluids. Clinical correlation recommended. Cristiana RAND LAB BODY FLUIDS AND STO OLS ORDERABLES Final Result Performing Organization Address [facility]/ZIP Co de Phone Number [facility] [address] [place] [address], [place] [phone] * Culture body fluid with gram stain (06/14/2024 10:19 AM EST) Fluid Culture No growth at 3 days LAB MICROBIOLOGY METHOD 06/17/2024 11:25 AM EST [facility] Gram Stain Result No polymorphonuclear leukocytes, No epithelial cells, and No organisms noted 06/17/2024 11:25 AM EST [facility] Peritoneal Fluid Peritoneal cavity structure / Unknown Non-blood Collection / Unknown 06/14/2024 10:19 AM EST 06/14/2024 10:26 AM EST Cristiana RAND LAB MICROBIOLOGY - GENE RAL ORDERABLES Final Result Performing Organization Address City/[facility]/ZIP Co de Phone Number [facility] [address] [place] [address], [place] [phone] * Differential body fluid (06/14/2024 10:19 AM EST) Only the most recent of2 resultswithin the time period is included. Fluid Neutrophils % 4 % 06/14/2024 11:38 AM EST [facility] Fluid Lymphocytes % 74 % 06/14/2024 11:38 AM EST [facility] Fluid Monocytes/Macrop hages 22 % 06/14/2024 11:38 AM EST [facility] Fluid Eosinophils % 0 % 06/14/2024 11:38 AM EST [facility] Fluid Basophils % 0 % 06/14/2024 11:38 AM EST [facility] Fluid Other Cells % 0 % 06/14/2024 11:38 AM EST [facility] Peritoneal Fluid Peritoneal cavity structure / Unknown Non-blood Collection / Unknown 06/14/2024 10:19 AM EST 06/14/2024 10:27 AM EST Narrative [facility] - 06/14/2024 11:38 AM EST No reference ranges have been established for body fluids. Clinical correlation recommended. Cristiana RAND LAB BODY FLUIDS AND STO OLS ORDERABLES Final Result Performing Organization Address City/[facility]/ZIP Co de Phone Number [facility] [address] [place] [address], [place] [phone] * Culture fungal, other (06/14/2024 10:19 AM EST) Culture, Fungus Negative for Fungus after 4 Weeks 07/12/2024 10:17 AM EDT [facility] Peritoneal Fluid Peritoneal cavity structure / Unknown Non-blood Collection / Unknown 06/14/2024 10:19 AM EST 06/14/2024 10:27 AM EST Cristiana RAND LAB MICROBIOLOGY - GENE RAL ORDERABLES Final Result Performing Organization Address City/[facility]/ZIP Co de Phone Number [facility] [address] [place] [address], [place] [phone] * Specific gravity, body fluid (06/14/2024 10:19 AM EST) Spec Grav, Fluid 1.014 06/14/2024 11:01 AM EST [facility] Peritoneal Fluid Non-blood Collection / Unknown 06/14/2024 10:19 AM EST 06/14/2024 10:26 AM EST [facility] - 06/14/2024 11:01 AM EST No reference ranges have been established for body fluids. Clinical correlation recommended. Cristiana RAND LAB BODY FLUIDS AND STO OLS ORDERABLES Final Result Performing Organization Address [facility] de Phone Number [facility] [address] [place] [address], [place] [phone] * Protein, body fluid (06/14/2024 10:19 AM EST) Only the most recent of2 resultswithin the time period is included. Protein, Fluid 1.4 See Comment g/dL LAB CHEMISTRY METHOD 06/14/2024 11:19 AM EST [facility] Peritoneal Fluid Non-blood Collection / Unknown 06/14/2024 10:19 AM EST 06/14/2024 10:26 AM EST [facility] - 06/14/2024 11:19 AM EST No reference ranges have been established for body fluids. Clinical correlation recommended. Cristiana RAND LAB BODY FLUIDS AND STO OLS ORDERABLES Final Result Performing Organization Address [facility]/ZIP Co de Phone Number [facility] [address] [place] [address], [place] [phone] * Lactate dehydrogenase, body fluid (06/14/2024 10:19 AM EST) LD, Fluid 78 See Comment unit/L LAB CHEMISTRY METHOD 06/14/2024 11:42 AM EST [facility] Peritoneal Fluid Peritoneal cavity structure / Unknown Non-blood Collection / Unknown 06/14/2024 10:19 AM EST 06/14/2024 10:27 AM EST [facility] - 06/14/2024 11:42 AM EST No reference ranges have been established for body fluids. Clinical correlation recommended. us Cristiana RAND LAB BODY FLUIDS AND STO OLS ORDERABLES Final Result Performing Organization Address [facility] Co de Phone Number [facility] [address] [place] [address], [place] [phone] * Glucose, body fluid (06/14/2024 10:19 AM EST) Glucose, Fluid 150 See Comment mg/dL LAB CHEMISTRY METHOD 06/14/2024 11:28 AM EST [facility] Ascites 06/14/2024 10:1 9 AM EST 06/14/2024 10:26 AM EST [facility] - 06/14/2024 11:28 AM EST No reference ranges have been established for body fluids. Clinical correlation recommended. us Cristiana RAND LAB BODY FLUIDS AND STO OLS ORDERABLES Final Result Performing Organization Address [facility] de Phone Number [facility] [address] [place] [address], [place] [phone] * Amylase, body fluid (06/14/2024 10:19 AM EST) Amylase, Fluid 24 See Comment unit/L LAB CHEMISTRY METHOD 06/14/2024 11:19 AM EST [facility] Peritoneal Fluid Non-blood Collection / Unknown 06/14/2024 10:19 AM EST 06/14/2024 10:26 AM EST [facility] - 06/14/2024 11:19 AM EST No reference ranges have been established for body fluids. Clinical correlation recommended. us Cristiana RAND LAB BODY FLUIDS AND STO OLS ORDERABLES Final Result Performing Organization Address [facility] Co de Phone Number [facility] [address] [place] [address], [place] [phone] * Albumin, body fluid (06/14/2024 10:19 AM EST) Only the most recent of2 resultswithin the time period is included. Albumin, Fluid 0.6 See Comment g/dL LAB CHEMISTRY METHOD 06/14/2024 11:19 AM EST [facility] Peritoneal Fluid Non-blood Collection / Unknown 06/14/2024 10:19 AM EST 06/14/2024 10:26 AM EST Narrative [facility] - 06/14/2024 11:19 AM EST No reference ranges have been established for body fluids. Clinical correlation recommended. Cristiana RAND LAB BODY FLUIDS AND STO OLS ORDERABLES Final Result Performing Organization Address [facility] Co de Phone Number [facility] [address] [place] [address], [place] [phone] * Non-gynecologic cytology (06/14/2024 10:19 AM EST) Pathologist [facility] Final Diagnosis A. Peritoneal fluid, paracentesis, (ThinPrep, cell block): Negative for malignant cells. 06/17/2024 4:30 PM [facility] Specimen A Adequacy Satisfactory for evaluation 06/17/2024 4:30 PM EST [facility] Gross Description A. Peritoneal Cavity, : Received 115 ml of yellow fluid; 1 ThinPrep, 1 Cell block Cell block in formalin @1500; total formalin fixation time 6 hours. 06/17/2024 4:30 PM [facility] Disclaimer Unless otherwise specified, all tissue is 10% NB formalin fixed and paraffin embedded. Technical cytopathology services provided by [facility], at [address] [place] [address] ([facility] # [id number]/Katya Lo MD, Human Resources Technician.) 06/17/2024 4:30 PM EST [facility] Peritoneal Fluid Peritoneal cavity structure / Unknown Non-blood Collection / Unknown 06/14/2024 10:19 AM EST 06/14/2024 2:30 PM EST us Cristiana RAND LAB CYTOLOGY ORDERABLES Final Result [facility] [address] [place] [address], [place] [phone] * US Paracentesis w Image Guidance (06/14/2024 [...] Meng Reviewed and Electronically Signed By: Aurora Megn Signed Date: 06/15/2024 12:40 ET Workstation ID: [id number] Transcribed By: Self Edit Transcribed Date: 06/14/2024 11:29 ET Resident/PA/MANAGER STATISTICAL PROGRAMMING: Milady Chilel Narrative 06/15/2024 12:40 PM EST [...] Signed Date: 06/15/2024 12:40 ET Workstation ID: [id number] Transcribed By: Self Edit Transcribed Date: 06/14/2024 11:29 ET Resident/PA/MANAGER STATISTICAL PROGRAMMING: Milady Chilel us Cristiana RAND IMG US PROCEDURES Final Result * Lactate, with reflex (06/14/2024 5:26 AM EST) Only the most recent of3 resultswithin the time period is included. LACTIC ACID 1.6 0.4 - 2.0 mmol/L LAB CHEMISTRY METHOD 06/14/2024 6:03 AM EST [facility] Blood Venous blood specimen / Unknown Venipuncture / Unknown 06/14/2024 5:26 AM EST 06/14/2024 5:33 AM EST us Napoleon Neely MD LAB BLOOD ORDERABLES Final Re sult Performing Organization Address City/[facility]/ZIP Co de Phone Number [facility] [address] [place] [address], [place] [phone] * Culture blood (06/14/2024 5:22 AM EST) Only the most recent of6 resultswithin the time period is included. Pathologist [facility] Culture, Blood No growth at 5 days 06/19/2024 6:01 AM [facility] Blood Venous blood specimen / Unknown Venipuncture / Unknown 06/14/2024 5:22 AM EST 06/14/2024 5:33 AM EST us Napoleon Neely MD LAB MICROBIOLOGY - GENERAL OR DERABLES Final Result Performing Organization Address [facility]/ZIP Co de Phone Number [facility] [address] [place] [address], [place] [phone] * (ABNORMAL) CBC auto differential (06/14/2024 5:14 AM EST) Only the most recent of5 resultswithin the time period is included. WBC 4.5(L) 4.8 - 10.8 K/mcL LAB HEMETOLOGY METHOD 06/14/2024 6:00 AM [facility] RBC 3.30(L) 4.50 - 5.50 M/mcL LAB HEMETOLOGY METHOD 06/14/2024 6:00 AM [facility] Hemoglobin 11.6(L) 13.5 - 17.5 g/dL LAB HEMETOLOGY METHOD 06/14/2024 6:00 AM [facility] Hematocrit 35.2(L) 42.0 - 54.0 % LAB HEMETOLOGY METHOD 06/14/2024 6:00 AM [facility] MCV 107.0(H) 79.0 - 98.0 FL LAB HEMETOLOGY METHOD 06/14/2024 6:00 AM [facility] MCH 35.3(H) 27.0 - 32.0 pcg LAB HEMETOLOGY METHOD 06/14/2024 6:00 AM [facility] MCHC 33.0 32.0 - 37.0 g/dL LAB HEMETOLOGY METHOD 06/14/2024 6:00 AM [facility] RDW 17.5(H) 11.0 - 15.0 % LAB HEMETOLOGY METHOD 06/14/2024 6:00 AM [facility] Platelets 77(L) 130 - 400 K/mcL LAB HEMETOLOGY METHOD 06/14/2024 6:00 AM [facility] Comment:previously verified by slide MPV 10.3 7.0 - 11.0 FL LAB HEMETOLOGY METHOD 06/14/2024 6:00 AM [facility] NRBC 0.0 <1.0 % LAB HEMETOLOGY METHOD 06/14/2024 6:00 AM [facility] NRBC Absolute 0.00 <0.10 K/mcL LAB HEMETOLOGY METHOD 06/14/2024 6:00 AM [facility] Neutrophils Relative 75.4 % LAB HEMETOLOGY METHOD 06/14/2024 6:00 AM [facility] Lymphocytes Relative 13.9 % LAB HEMETOLOGY METHOD 06/14/2024 6:00 AM [facility] Monocytes Relative 9.7 % LAB HEMETOLOGY METHOD 06/14/2024 6:00 AM [facility] Eosinophils Relative 0.4 % LAB HEMETOLOGY METHOD 06/14/2024 6:00 AM [facility] Basophils Relative 0.4 % LAB HEMETOLOGY METHOD 06/14/2024 6:00 AM EST [facility] Immature Granulocytes Relative 0.2 % LAB HEMETOLOGY METHOD 06/14/2024 6:00 AM [facility] Neutrophils Absolute 3.35 1.50 - 7.00 K/mcL LAB HEMETOLOGY METHOD 06/14/2024 6:00 AM EST [facility] Lymphocytes Absolute 0.62(L) 1.00 - 5.00 K/mcL LAB HEMETOLOGY METHOD 06/14/2024 6:00 AM [facility] Monocytes Absolute 0.43 0.20 - 1.00 K/mcL LAB HEMETOLOGY METHOD 06/14/2024 6:00 AM [facility] Eosinophils Absolute 0.02 0.00 - 0.50 K/mcL LAB HEMETOLOGY METHOD 06/14/2024 6:00 AM EST [facility] Basophils Absolute 0.02 0.00 - 0.20 K/mcL LAB HEMETOLOGY METHOD 06/14/2024 6:00 AM [facility] Immature Granulocytes Absolute 0.01 0.00 - 0.03 K/mcL LAB HEMETOLOGY METHOD 06/14/2024 6:00 AM [facility] Blood Venous blood specimen / Unknown Venipuncture / Unknown 06/14/2024 5:14 AM EST 06/14/2024 5:34 AM EST us Napoleon Neely MD LAB BLOOD ORDERABLES Final Re sult [facility]) [facility] [address] [place] [address], * ECG-Annotated (06/14/2024) Only the most recent of3 resultswithin the time period is included. us Provider Onbase ECG ORDERABLES Final Result * Prostate specific antigen screen (06/13/2024 12:37 PM EST) PSA 0.18 0.00 - 4.00 ng/mL LAB CHEMISTRY METHOD 06/13/2024 2:31 PM EST [facility] Blood Venous blood specimen / Unknown Venipuncture / Unknown 06/13/2024 12:37 PM EST 06/13/2024 12:55 PM EST Narrative [facility] - 06/13/2024 2:31 PM EST The Siemens [employer]aur Chemiluminescent Immunoassay is used. Results obtained with different assay methods or kits cannot be used interchangeably. Results cannot be interpreted as absolute evidence of the presence or absence of malignant disease. us Napoleon Neely MD LAB BLOOD ORDERABLES Final Re sult Performing Organization Address [facility] [facility]/ZIP Co de Phone Number [facility] [address] [place] [address], [place] [phone] * (ABNORMAL) C-reactive protein (06/13/2024 12:37 PM EST) Only the most recent of2 resultswithin the time period is included. [facility] C-Reactive Protein 10.20(H) <=0.50 mg/dL LAB CHEMISTRY METHOD 06/13/2024 2:25 PM EST [facility] Blood Venous blood specimen / Unknown Venipuncture / Unknown 06/13/2024 12:37 PM EST 06/13/2024 12:55 PM EST us Napoleon Neely MD LAB BLOOD ORDERABLES Final Re sult Performing Organization Address City/[facility]/ZIP Co de Phone Number [facility] [address] [place] [address], [place] [phone] * (ABNORMAL) Hepatic function panel (06/13/2024 12:37 PM EST) [facility] Total Protein 5.9(L) 6.0 - 8.0 g/dL LAB CHEMISTRY METHOD 06/13/2024 2:25 PM [facility] Albumin 2.3(L) 3.2 - 5.0 g/dL LAB CHEMISTRY METHOD 06/13/2024 2:25 PM [facility] Total Bilirubin 2.6(H) 0.0 - 1.4 mg/dL LAB CHEMISTRY METHOD 06/13/2024 2:25 PM [facility] Bilirubin, Direct 1.4(H) 0.0 - 0.3 mg/dL LAB CHEMISTRY METHOD 06/13/2024 2:25 PM [facility] Bilirubin, Indirect 1.2(H) 0.0 - 1.1 mg/dL LAB CHEMISTRY METHOD 06/13/2024 2:25 PM [facility] ALT (SGPT) 20 10 - 60 unit/L LAB CHEMISTRY METHOD 06/13/2024 2:25 PM [facility] AST (SGOT) 32 10 - 42 unit/L LAB CHEMISTRY METHOD 06/13/2024 2:25 PM [facility] Alkaline Phosphatase 133(H) 42 - 121 unit/L LAB CHEMISTRY METHOD 06/13/2024 2:25 PM [facility] Blood Venous blood specimen / Unknown Venipuncture / Unknown 06/13/2024 12:37 PM EST 06/13/2024 12:55 PM EST us Napoleon Neely MD LAB BLOOD ORDERABLES Final Re sult [facility] [address] [place] [address], * Troponin I high sensitivity (06/12/2024 6:44 [...] Resu lt [facility] [address] [place] [address], [place] [phone] * CT Abdomen Pelvis w Contrast (06/12/2024 6:28 AM EST) Only the most recent of2 resultswithin the time period is included. Anatomical Region Laterality Modality Body Computed Tomogra phy 06/12/2024 7:06 AM EST Impressions 06/12/2024 7:06 AM EST Impression: Cirrhotic liver with portal hypertension including luzfoysw-rp-irysm volume ascites, splenomegaly and varices. No apparent [...] Impression: Cirrhotic liver with portal hypertension including edvujjik-on-htarm volume ascites, splenomegaly and varices. No apparent [...] recommended in 3 months to assess stability. Rrrqo-kl-jlijobla size left pleural effusion and trace right [...] contour and moderate volume of ascites. Splenomegaly. Kopmp-wk-ouxgfqzo size left pleural effusion and trace right [...] contour and moderate volume of ascites. Splenomegaly. Zfysk-xo-cpqwhveo size left pleural effusion and trace right [...] recommended in 3 months to assess stability. Ctojw-ng-bxgrhksp size left pleural effusion and trace right [...] RAND IMG CT PROCEDURES Final Result * B-type natriuretic peptide (06/12/2024 5:19 AM EST) Only the most recent of2 resultswithin the time period is included. BNP 95 <=100 pcg/mL LAB CHEMISTRY METHOD 06/12/2024 6:10 AM EST [facility] Blood Venous blood specimen / Unknown Venipuncture / Unknown 06/12/2024 5:19 AM EST 06/12/2024 5:22 AM EST Nayeli R[facility] LAB BLOOD ORDERABLES Final Resu lt [facility] [address] [place] [address], [place] [phone] * (ABNORMAL) Blood culture pathogens molecular study (06/12/2024 3:44 AM EST) [facility] Pseudomonas aeruginosa Detected (A) Not Detected LAB MICROBIOLOGY METHOD 06/13/2024 7:45 AM EST [facility] Blood Venous blood specimen / Unknown Venipuncture / Unknown 06/12/2024 3:44 AM EST 06/12/2024 3:51 AM EST us Nayeli [facility] LAB MICROBIOLOGY - GENERAL ORDE RABLES Final Result Performing Organization Address [facility] de Phone Number [facility] [address] [place] [address], * (ABNORMAL) Lactate (06/12/2024 3:40 AM EST) Only the most recent of6 resultswithin the time period is included. [facility] Lactate 3.2(HH) 0.4 - 2.0 mmol/L LAB CHEMISTRY METHOD 06/12/2024 4:30 AM EST [facility] Blood Venous blood specimen / Unknown Venipuncture / Unknown 06/12/2024 3:40 AM EST 06/12/2024 3:51 AM EST us Nayeli [facility]AND LAB BLOOD ORDERABLES Final Resu lt Performing Organization Address [facility]/ZIP Co de Phone Number [facility] [address] [place] [address], [place] [phone] * (ABNORMAL) Urinalysis with reflex microscopic and culture (06/12/2024 1:15 AM EST) Only the most recent of2 resultswithin the time period is included. [facility] Specific [place] Urine 1.007 1.003 - 1.030 LAB URINALYSIS - AUTOMATED METHOD 06/12/2024 3:41 AM [facility] pH, Urine 6.0 5.0 - 8.0 pH LAB URINALYSIS - AUTOMATED METHOD 06/12/2024 3:41 AM [facility] Leukocytes, Urine Small(A) Negative LAB URINALYSIS - AUTOMATED METHOD 06/12/2024 3:41 AM [facility] Nitrite, Urine Negative Negative LAB URINALYSIS - AUTOMATED METHOD 06/12/2024 3:41 AM [facility] Protein, Urine Negative <=Trace mg/dL LAB URINALYSIS - AUTOMATED METHOD 06/12/2024 3:41 AM [facility] Glucose, Urine Negative Negative mg/dL LAB URINALYSIS - AUTOMATED METHOD 06/12/2024 3:41 AM [facility] Ketones, Urine Negative Negative mg/dL LAB URINALYSIS - AUTOMATED METHOD 06/12/2024 3:41 AM [facility] Urobilinogen, Urine 0.2 0.2 - 1.0 mg/dL LAB URINALYSIS - AUTOMATED METHOD 06/12/2024 3:41 AM [facility] Bilirubin, Urine Negative Negative LAB URINALYSIS - AUTOMATED METHOD 06/12/2024 3:41 AM [facility] Blood, Urine Large(A) Negative LAB URINALYSIS - AUTOMATED METHOD 06/12/2024 3:41 AM [facility] RBC, Urine 156.5(H) 0 - 4 /HPF LAB URINALYSIS - AUTOMATED METHOD 06/12/2024 3:41 AM [facility] WBC, Urine 16.6(H) 0 - 4 /HPF LAB URINALYSIS - AUTOMATED METHOD 06/12/2024 3:41 AM [facility] Squamous Epithelial, Urine 9 0 - 60 /LPF LAB URINALYSIS - AUTOMATED METHOD 06/12/2024 3:41 AM [facility] Bacteria, Urine Negative Negative /HPF LAB URINALYSIS - AUTOMATED METHOD 06/12/2024 3:41 AM [facility] Hyaline Casts, Urine 0.8 0 - 3 /LPF LAB URINALYSIS - AUTOMATED METHOD 06/12/2024 3:41 AM [facility] Urine Urine specimen obtained by clean catch procedure / Unknown Non-blood Collection / Unknown 06/12/2024 1:15 AM EST 06/12/2024 2:59 AM EST Nayeli [facility] LAB URINE ORDERABLES Final Resu lt [facility] [address] [place] [address], [place] [phone] * Pugh urine culture tube (06/12/2024 1:15 [...] Final Resu lt Performing Organization Address City/[facility]/ZIP Co de Phone Number [facility] [address] [place] [address], [place] [phone] * (ABNORMAL) Culture urine (06/12/2024 1:15 AM EST) Only the most recent of2 resultswithin the time period is included. Culture, Urine >100,000 CFU/mL Pseudomonas aeruginosa(A) SAVANNAH 06/15/2024 9:00 AM [facility] Comment: This is an edited [...] DIFFUSION Nayeli [facility] LAB MICROBIOLOGY - [facility]AL [facility] Final Result Performing Organization Address City/[facility]/ZIP Co de Phone Number [facility] [address] [place] [address], * (ABNORMAL) Thyroid stimulating hormone (05/26/2024 6:59 AM EST) TSH 5.20(H) 0.40 - 4.00 mcIU/mL LAB CHEMISTRY METHOD 05/26/2024 1:24 PM EST [facility] Blood Venous blood specimen / Unknown Venipuncture / Unknown 05/26/2024 6:59 AM EST 05/26/2024 10:29 AM EST Gerry Barksdale LAB BLOOD ORDERABLES Final Resul t [facility] [address] [place] [address], * Folate (05/26/2024 6:59 AM EST) Folate 4.3 2.8 - 17.0 ng/ml LAB CHEMISTRY METHOD 05/26/2024 1:39 PM EST [facility] Blood Venous blood specimen / Unknown Venipuncture / Unknown 05/26/2024 6:59 AM EST 05/26/2024 10:29 AM EST [facility] LAB BLOOD ORDERABLES Final Resul t Performing Organization Address [facility]/ZIP Co de Phone Number [facility] [address] [place] [address], [place] [phone] * (ABNORMAL) Vitamin B12 (05/26/2024 6:59 AM EST) Vitamin B-12 1,309(H) 250 - 900 pcg/mL LAB CHEMISTRY METHOD 05/26/2024 1:39 PM EST [facility] Blood Venous blood specimen / Unknown Venipuncture / Unknown 05/26/2024 6:59 AM EST 05/26/2024 10:29 AM EST [facility] LAB BLOOD ORDERABLES Final Resul t Performing Organization Address [facility] de Phone Number [facility] [address] [place] [address], [place] [phone] * Vancomycin, trough (05/23/2024 12:10 PM EST) Only the most recent of3 resultswithin the time period is included. Vancomycin Trough 13.0 10.0 - 20.0 mcg/mL LAB CHEMISTRY METHOD 05/23/2024 12:59 PM EST [facility] Blood Venous blood specimen / Unknown Venipuncture / Unknown 05/23/2024 12:10 PM EST 05/23/2024 12:28 PM EST Hue [facility] LAB BLOOD ORDERABLES Final Re sult Performing Organization Address [facility]/ZIP Co de Phone Number [facility] [address] [place] [address], [place] [phone] * Lavender tube (05/23/2024 3:07 AM EST) Only the most recent of2 resultswithin the time period is included. Extra Tube Hold for add-ons. 05/23/2024 5:01 AM EST [facility] Comment:Auto resulted. Blood Venous blood specimen / Unknown 05/23/2024 3:07 AM EST 05/23/2024 3:19 AM EST us Chemo Reveles MD LAB BLOOD ORDERABLES Final Resu lt [facility] [address] [place] [address], [place] [phone] * Vascular US duplex lower extremity venous [...] Signed Date: 05/21/2024 09:23 ET Workstation ID: [id number] Transcribed By: Self Edit Transcribed Date: 05/21/2024 [...] Signed Date: 05/21/2024 09:23 ET Workstation ID: [id number] Transcribed By: Self Edit Transcribed Date: 05/21/2024 09:22 ET us Chemo Reveles MD CV VASCULAR PROCEDURES Final Re sult * (ABNORMAL) Thyroid stimulating hormone with reflex to free t4 and free t3 (05/21/2024 3:17 AM EST) TSH 8.16(H) 0.40 - 4.00 mcIU/mL LAB CHEMISTRY METHOD 05/21/2024 3:59 AM EST [facility] Blood Venous blood specimen / Unknown Venipuncture / Unknown 05/21/2024 3:17 AM EST 05/21/2024 3:23 AM EST us Chemo Reveles MD LAB BLOOD ORDERABLES Final Resu lt [facility] [address] [place] [address], [place] [phone] * Free thyroxine with reflex to free triiodothyronine (05/21/2024 3:17 AM EST) Free T4 1.02 0.70 - 1.80 ng/dL LAB CHEMISTRY METHOD 05/21/2024 4:25 AM EST [facility] Blood Venous blood specimen / Unknown Venipuncture / Unknown 05/21/2024 3:17 AM EST 05/21/2024 3:23 AM EST us Chemo Reveles MD LAB BLOOD ORDERABLES Final Resu lt [facility] [address] [place] [address], [place] [phone] * Triiodothyronine free (05/21/2024 3:17 AM EST) Pathologist [facility] T3, Free 249 230 - 420 pcg/dL LAB CHEMISTRY METHOD 05/21/2024 4:50 AM EST [facility] Blood Venous blood specimen / Unknown Venipuncture / Unknown 05/21/2024 3:17 AM EST 05/21/2024 3:23 AM EST us Chemo Reveles MD LAB BLOOD ORDERABLES Final Resu lt [facility] [address] [place] [address], [place] [phone] * Hemoglobin A1c (05/21/2024 3:17 AM EST) [facility] Hemoglobin A1C 4.9 <6.5 % LAB CHEMISTRY METHOD 05/21/2024 1:49 PM EST [facility] Mean Bld Glu Estim. 94 mg/dL LAB CHEMISTRY METHOD 05/21/2024 1:49 PM EST [facility] Blood Venous blood specimen / Unknown Venipuncture / Unknown 05/21/2024 3:17 AM EST 05/21/2024 3:23 AM EST us Chemo Reveles MD LAB BLOOD ORDERABLES Final Resu lt Performing Organization Address City/[facility]/ZIP Co de Phone Number [facility] [address] [place] [address], [place] [phone] * (ABNORMAL) Sedimentation rate (05/20/2024 6:09 AM EST) Sed Rate 35(H) 0 - 20 mm/hr LAB HEMETOLOGY METHOD 05/20/2024 2:00 PM EST [facility] Blood Venous blood specimen / Unknown Venipuncture / Unknown 05/20/2024 6:09 AM EST 05/20/2024 6:32 AM EST us Chemo Reveles MD LAB BLOOD ORDERABLES Final Resu lt Performing Organization Address [facility]/ZIP Co de Phone Number [facility] [address] [place] [address], [place] [phone] * XR Chest 2 Views (05/19/2024 6:51 PM EST) Anatomical Region Laterality Modality Body Radiographic Esmer ging 05/20/2024 8:05 AM EST Impressions 05/20/2024 8:06 AM EST Small-moderate left pleural effusion. -------- FINAL REPORT -------- Dictated By: Frank Vivar Dictated Date: 05/20/2024 08:05 ET Assigned Physician: Frank Vivar Reviewed and Electronically Signed By: Frank Vivar Signed Date: 05/20/2024 08:06 ET Workstation ID: [id number] Transcribed By: Self Edit Transcribed Date: 05/20/2024 [...] Signed Date: 05/20/2024 08:06 ET Workstation ID: [id number] Transcribed By: Self Edit Transcribed Date: 05/20/2024 08:05 ET Hue [facility] IMG XR PROCEDURES Final Resul t * (ABNORMAL) Lipase (05/19/2024 4:10 PM EST) Lipase 76(H) 13 - 75 unit/L LAB CHEMISTRY METHOD 05/19/2024 4:59 PM EST [facility] Blood Venous blood specimen / Unknown Venipuncture / Unknown 05/19/2024 4:10 PM EST 05/19/2024 4:25 PM EST Emily Singh DO LAB BLOOD ORDERABLES Berenice l Result [facility] [address] [place] [address], [place] [phone] from Last 3 Months Insurance [facility] [employer] Member Subscriber Plan / Payer (Ef fective 2024-Present) Name:Jonny Reed Relation to Subscriber:Self Name:Jonny Reed Payer ID:[id number] Group ID:[id number] Type:Not on file Address: [place] [address] [address] [id number] Advance Directives Documents on File Type Date 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 Do not modify or discontinue any currently active code status orders. * Full Code - Default Date Activated Date Inactivated Comments 06/13/2024 2:04 [...] Agents on File Name Relationship Healthcare Agent [facility] p Communication Elinor RioBrucedayami [place] [facility] Agent Care Teams Financial Counselor Relationship Specialty Start Date End Date Dalia Harmon PA [address] [place] [address], [address] [place] [address] PCP - General 05/10/24
--- OUTSIDE RECORDS SUMMARY | 2024-07-14 09:34 | XMS_ITS | Encounter Summary ---
Author Organization [facility] Address [address] [place] [address] Care Team Providers Care Pet Stylist Name Role Phone Dalia Harmon Primary Care Provider [phone] Encounter Details Date Type Department Care Team (Late st Contact Info) Description 03/12/[address] [facility] [address] [facility] [place] [phone] Gerry Barksdale [address] [place] [address] [address] [place] [address] Essential (primary) hypertension Social History Tobacco Use [...] 8:30 AM EDT Office Visit Gastroenterology - [place] [address] [place] [address] Han Sloan DO [address] [facility] [address] [place] [address] documented as of this encounter Visit Diagnoses Diagnosis Essential (primary) hypertension Unspecified essential hypertension documented in this encounter Care Teams Pet Stylist Relationship Specialty Start Date End Date Dalia Harmon PA [address] [place] [address], [address] [place] [address] PCP - General 05/10/24 documented as of this encounter
--- OUTSIDE RECORDS SUMMARY | 2024-07-14 09:34 | XMS_ITS | Data Portability ---
Author Organization [facility] [place] Address [address] [place] [address] Care Team Providers Care Preschool Principal Name Role Phone HIM [facility] OTHER [facility] Primary Care Provider Assessment Encounter Date [...] assessment and plan as documented by the validation technician. I provided real-time medical direction for this encounter and was immediately available to provide additional phone-based assistance as needed. HPI: 64M presenting with malfunctioning catheter, leaking. No other symptoms noted. Was recently tested for UTI and was negative. VSS. Exam otherwise unremarkable per the validation technician. Able to reinsert catheter to have appropriate [...] in the field was performed by my validation technician colleague, as noted above, I provided real-time [...] needs coags and platelets checked Disposition: To [facility] ED via 911. Patient is agreeable [...] culture,comp rehensive Final report Not Available [facility] ([facility]) [address] [facility], [place], [address], 03/19/2024 10:05:46 03/16/2003/19/2024 URINE CULTU RE,CO MPREH ENSIV E result 1 COMMEN T No growt h in 36 - 48 hours . Not Available [facility] ([facility]) [address] [facility], [place], [address], 03/19/2024 10:05:46 Result Notes None recorded. Medical Equipment None Reported. Allergies Allergen ID Allergen Name Allergen Category Reaction Reaction Severity Criticality Documentation Date Start Date Code Code System Note Provider Name and Address Organization Details Recorded Time 53815 semagluti de medicatio n Not available Not available Not available 03/18/2024 RxNorm Not Available [facility] 4 18:27:38 27363 nystatin medicatio n Not available Not available Not available 06/10/2024 7597 RxNorm Not Available [facility] - [facility] 5 20:32:41 65937 codeine medicatio n Not available Not available [...] cm 96 % 96 % 98 [degF] 314937 g 14 /min 77 /min 134 mm[Hg] 82 mm[Hg] Not Available [employer] 4 19:24:57 Date Recorded Body weight Oxygen saturation Oxygen saturation in Arterial blood by Pulse oximetry Respiratory rate Body temperature Heart rate Systolic blood pressure Diastolic blood pressure Provider Name and Address Organization Details Last Updated DateTime 5 874077. 28 g 97 % 97 % 16 /min 98.2 [degF] 86 /min 156 mm[Hg] 82 mm[Hg] Not Available [facility] [employer] 5 10:41:34 Date Recorded Body weight Body height Body temperature Oxygen saturation Oxygen saturation in Arterial blood by Pulse oximetry Respiratory rate Heart rate Systolic blood pressure Diastolic blood pressure Provider Name and Address Organization Details Last Updated DateTime 5 049131. 28 g 167.64 cm 98 [degF] 94 % 94 % 16 /min 87 /min 162 mm[Hg] 72 mm[Hg] Not Available [employer] [employer] [employer] 5 18:57:19 Date Recorded Heart rate Oxygen [...] cm 97 % 97 % 99 /min 364091. 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 Functional Status None recorded. Mental Status None recorded. Family History Nothing Reported. Medical History No medical history recorded. Past Encounters Encounter ID Performer Location Encounter Start Date Encounter Closed Date Diagnosis/Indication Diagnosis SNOMED-CT Code Diagnosis ICD10 Code Diagnosis Note [id number] Aleksandar Manning MD Main - [facility] [address] [place] [phone] 03/16/2024 13:37:07 03/16/2024 16:05:19 Mechanical complication of urethral indwelling catheter 58461829 T83.098A [id number] Elvi Pereira MD [facility] [address] [place], [place] [phone] 03/18/2024 19:24:55 03/19/2024 15:31:31 Complication of urinary catheter [id number] T83.9XXA [id number] Juan Antonio Bustillo MD [facility] [address] [place] [phone] 04/23/2024 10:41:31 04/23/2024 16:17:35 Complication of urinary catheter 990524614 T83.9XXA As noted, we were called to see this patient regarding concerns of malpositio n of alex catheter Evaluation in the field was performed by my validation technician colleague, as noted above, I provided real-time direction and supervisio n for this visit. The evaluation revealed normal VS and simple disconnect ion, which the patient was not able to adequately visualize due to body habitus. Impression :Alex disconnect ion without any patient complicati ons Plan:Recon Prashant crawford [id number] Betsy Lopez MD Main - [facility] [address] [place] [phone] 04/25/2024 18:57:17 04/26/2024 00:18:55 Complication of urinary catheter [id number] T83.9XXS As noted, we were called to see this patient regarding concerns of malfunctio vy urinary catheter. Evaluation in the field was performed by my validation technician colleague, as noted above, I provided real-time [...] of any new or worsening serious symptoms. [id number] Yasmene Redmond MD Main - [facility] [address] [place] [phone] 06/10/2024 20:56:07 06/10/2024 21:35:04 Indwelling urethral urinary catheter in situ 147921913 Z96.0 [id number] FRANSISCO POLANCO MD Main - [facility] [address] [place] [phone] 06/11/2024 20:56:11 06/12/2024 09:25:59 Jovi hematuria 394992499 R31.0 Health Concerns Section Related Observation LastModified by Organization Detai ls LastModified Time None Recorded Concern Status LastModified by Organization Details LastModified Time None Recorded Advance Directives Directive None Recorded Payers Encounter Date Sequence Insurance Name Policy Number Policy Pan Covered Member ID Pan Member ID Guarantor Name 03/18/2024 1 [facility] - DOS ON OR AFTER 2022 - DUAL ELIGIBLE - ASSISTED OPTIONS AND ONE CARE (MEDICARE REPLACEMENT/ADV ANTAGE - HMO) Jonny Reed [id number] Jonny Reed 04/23/2024 1 [employer] - DOS ON OR AFTER 2022 - DUAL ELIGIBLE - ASSISTED OPTIONS AND ONE CARE (MEDICARE REPLACEMENT/ADV ANTAGE - HMO) Jonny Alejanrdoes [id number] Jonny Reed 04/25/2024 1 [employer] - DOS ON OR AFTER 2022 - DUAL ELIGIBLE - ASSISTED OPTIONS AND ONE CARE (MEDICARE REPLACEMENT/ADV ANTAGE - HMO) Jonny Derek [id number] Jonny Reed 06/10/2024 1 [facility] DOS ON OR AFTER 2022 - DUAL ELIGIBLE - ASSISTED OPTIONS AND ONE CARE (MEDICARE REPLACEMENT/ADV ANTAGE - HMO) Jonny Alejandroes [id number] Jonny Alejandroes 06/11/2024 1 [facility] - DOS ON OR AFTER 2022 - DUAL ELIGIBLE - ASSISTED OPTIONS AND ONE CARE (MEDICARE REPLACEMENT/ADV ANTAGE - HMO) Jonny Reed [id number] Jonny Burnett Reed Notes Date Note Type [...] needed. [facility] Alex cath changed - [...] ................... ................... ................... ................... ................... ................... ........ Law Professor Note From Esa Francisco: Patient alert and oriented seated in chair. Patient complains of leakage around urethra. Patient reports alex catheter inserted times two days ago by [facility] personnel. Patient reports he noticed urine [...] the hospital. Sticker to secure tube applied. [facility] advises culture taken times two days ago currently negative for growth.Patient encouraged to monitor site, contact [facility] home health care worker to help arrange urology referral, and call [facility] again if needed. Patient and caregiver demonstrates understanding of care and plan. Patient grateful for assistance. ................... ................... ................... ................... ................... ................... ................... ........ [facility] Consulted: Elvi Pereira ................... ................... ................... ................... ................... ................... ................... ........ Disposition: Fulfilled Elvi Pereira MD [address] [place] [address],[address], [place], [address], [facility] 03/18/2024 20:14:22 04/23/2024 text/html [facility] Nurse Triage [...] PMH: Chronic Back Pain, Hypertension, Cirrhosis Comments: [employer] Consultant verified the name//address and phone number. Pt [...] ................... ................... ................... ................... ................... ................... ........ Law Professor Note From Hussein Grossman: Pt co alex cath disconnection from bag tube. Pt got up and it fell off. Pay can not see th area due to obesity and was unsure what had happened. Pt denies pain. Pt sts urine is sti voiding from catheter. Pt has no other complaints. Alex reconnected without issue. Pt education on signs indicating the ER. [facility] contacted and advised of resolution. ................... ................... ................... ................... ................... ................... ................... ........ [facility] Consulted: Justin Bustillo ................... ................... ................... ................... ................... ................... ................... ........ Disposition: Fulfilled Juan Antonio Bustillo MD [address], [place], [address], [facility] 04/23/2024 10:47:59 04/25/2024 text/html [facility] Nurse Triage [...] PMH: Chronic Back Pain, Hypertension, Cirrhosis Comments: [employer] Consultant verified the Pt.'s name//address and phone number. [...] ................... ................... ................... ................... ................... ................... ........ Law Professor Note From Marcellus Mauro: This 64-year-old male [...] ................... ................... ................... ................... ................... ................... ........ [facility] Consulted: Betsy Lopez ................... ................... ................... ................... ................... ................... ................... ........ Disposition: Barbara Lopez MD [address], [place], [address], [facility] 04/25/2024 20:46:05 06/10/2024 text/html [facility] Nurse Triage Notes (Elsie Sultana - [...] ................... ................... ................... ................... ................... ................... ........ Law Professor Note From Harley Rodriguez: Dispatched to above [...] urine not obviously displaced, no active leaking. [facility] contacted, advised of patient complaints and exam findings. Catheter balloon drained 10ml sterile water, re-inflated, patient reported discomfort, catheter advanced and re-inflated without pain, urine moving in tubing, patient denies discomfort. [facility] advised of catheter troubleshooting, recommends home monitoring with follow up should leaking continue. Patient agrees with this plan. Patient has no additional questions or concerns at this time. SC8 clear. EOR. ................... ................... ................... ................... ................... ................... ................... ........ [facility] Consulted: Yasmeen Redmond ................... ................... ................... ................... ................... ................... ................... ........ Disposition: Fulfilled Yasmeen Redmond MD [address] [place] [address],[address], [place], [address] [employer] [facility] 06/10/2024 21:28:25 06/11/2024 text/html [facility] Nurse Triage Notes (Elsie Sultana - RN): Reason For Request: Patient has cath problems, Urine and blood in the back, problems all morning with it. Chief Complaints: Urinary catheter/nephrostom y tube problems PMH: Chronic Back Pain, Hypertension, Cirrhosis PMH Reviewed at 06/11/2024 - 18:22 Allergies Reviewed at 06/11/2024 - 18:22 Comments: [facility], catheter changed during [...] with worsening s/sx-NE FRANSISCO POLANCO MD [address], [place], [address], [facility] 06/11/2024 22:21:06
--- OUTSIDE RECORDS SUMMARY | 2024-07-14 09:34 | XMS_ITS | Encounter Summary ---
Author Organization [facility] Address [address] [place] [address] Care Team Providers Care Law Enforcement Instructor Name Role Phone Dalia Harmon Primary Care Provider [phone] Encounter Details Date Type Department Care Team (Late st Contact Info) Description 05/28/[address] [facility] - Main Lab [address] [facility] [place] [phone] Gerry Barksdale [address] [facility] [address] [place] [address] Sepsis, unspecified organism (CMS/HCC) Social [...] 8:30 AM EDT Office Visit Gastroenterology - [place] [address] [place] [address] Han Sloan DO [address] [place] [address] documented as of this encounter Procedures Procedure Name Priority Date/Time Associated Diagnosis Comments COMPLETE BLOOD COUNT Routine 05/31/2024 8:09 AM EST Sepsis, unspecified organism (CMS/HCC) BASIC METABOLIC PANEL Routine 05/31/2024 8:09 AM EST Sepsis, unspecified organism (CMS/HCC) documented in this encounter Results * (ABNORMAL) Basic metabolic panel (05/31/2024 8:09 AM EST) Sodium 135 133 - 145 mmol/L LAB CHEMISTRY METHOD 05/31/2024 10:57 AM [facility] Potassium 3.9 3.5 - 5.5 mmol/L LAB CHEMISTRY METHOD 05/31/2024 10:57 AM [facility] Chloride 101 96 - 110 mmol/L LAB CHEMISTRY METHOD 05/31/2024 10:57 AM [facility] CO2 29 21 - 32 mmol/L LAB CHEMISTRY METHOD 05/31/2024 10:57 AM [facility] Anion Gap 5 3 - 11 LAB CHEMISTRY METHOD 05/31/2024 10:57 AM [facility] Glucose 116(H) 70 - 100 mg/dL LAB CHEMISTRY METHOD 05/31/2024 10:57 AM [facility] BUN 12 5 - 25 mg/dL LAB CHEMISTRY METHOD 05/31/2024 10:57 AM [facility] Creatinine 0.47(L) 0.70 - 1.30 mg/dL LAB CHEMISTRY METHOD 05/31/2024 10:57 AM [facility] eGFR 115 >=60 mL/min/1. 73m2 LAB CHEMISTRY METHOD 05/31/2024 10:57 AM [facility] Comment:Calculation based on the??Chronic Kidney Disease Epidemiology Collaboration (CKD-EPI) equation refit??without adjustment for race. BUN/Creatinine Ratio 25.5 LAB CHEMISTRY METHOD 05/31/2024 10:57 AM [facility] Calcium 8.2(L) 8.5 - 10.5 mg/dL LAB CHEMISTRY METHOD 05/31/2024 10:57 AM [facility] Blood Venous blood specimen / Unknown Venipuncture / Unknown 05/31/2024 8:09 AM EST 05/31/2024 9:54 AM EST Gerry Barksdale LAB BLOOD ORDERABLES Final Resul t [facility] [address] [place] [address], * (ABNORMAL) Complete blood count (05/31/2024 8:09 AM EST) WBC 5.3 4.8 - 10.8 K/mcL LAB HEMETOLOGY METHOD 05/31/2024 10:28 AM [facility] RBC 3.50(L) 4.50 - 5.50 M/mcL LAB HEMETOLOGY METHOD 05/31/2024 10:28 AM [facility] Hemoglobin 11.8(L) 13.5 - 17.5 g/dL LAB HEMETOLOGY METHOD 05/31/2024 10:28 AM [facility] Hematocrit 36.4(L) 42.0 - 54.0 % LAB HEMETOLOGY METHOD 05/31/2024 10:28 AM [facility] MCV 105.5(H) 79.0 - 98.0 FL LAB HEMETOLOGY METHOD 05/31/2024 10:28 AM [facility] MCH 34.2(H) 27.0 - 32.0 pcg LAB HEMETOLOGY METHOD 05/31/2024 10:28 AM EST [facility] MCHC 32.4 32.0 - 37.0 g/dL LAB HEMETOLOGY METHOD 05/31/2024 10:28 AM [facility] RDW 17.1(H) 11.0 - 15.0 % LAB HEMETOLOGY METHOD 05/31/2024 10:28 AM [facility] Platelets 149 130 - 400 K/mcL LAB HEMETOLOGY METHOD 05/31/2024 10:28 AM [facility] MPV 10.5 7.0 - 11.0 FL LAB HEMETOLOGY METHOD 05/31/2024 10:28 AM [facility] NRBC 0.0 <1.0 % LAB HEMETOLOGY METHOD 05/31/2024 10:28 AM [facility] NRBC Absolute 0.00 <0.10 K/mcL LAB HEMETOLOGY METHOD 05/31/2024 10:28 AM [facility] Blood Venous blood specimen / Unknown Venipuncture / Unknown 05/31/2024 8:09 AM EST 05/31/2024 9:53 AM EST Gerry Barksdale LAB BLOOD ORDERABLES Final Resul t [facility] [address] [place] [address], documented in this encounter Visit Diagnoses Diagnosis Sepsis, unspecified organism (CMS/HCC) documented in this encounter Care Teams Law Enforcement Instructor Relationship Specialty Start Date End Date Dalia Harmon PA [address], [address] [place] [address] PCP - General 05/10/24 documented as of this encounter
--- OUTSIDE RECORDS SUMMARY | 2024-07-14 09:34 | XMS_ITS | Clinical Summary ---
Author Organization [facility] Address [address] [place] [address] Care Team Providers Care Vfx Artist Name Role Phone Dago Ferro MD Primary Care Provider [phone] Allergies No known active allergies Medications Medication [...] age to complete this topic Care Teams Vfx Artist Relationship Specialty Start Date End Date Dago Ferro MD PCP - General Internal Medicine 03/23/19
--- OUTSIDE RECORDS SUMMARY | 2024-07-14 09:34 | XMS_ITS | Encounter Summary ---
Author Organization [facility] Address [address] [place] [address] Care Team Providers Care Door Repairer Bus Name Role Phone Dalia Harmon Primary Care Provider [phone] Reason for Visit * Reason Comments Blood in Urine Chronic Alex w/brig ht red blood. Last replaced 2 days ago * Auth/Cert (Routine) Specialty Diagnoses / Procedures Referred By Contac t Referred To Contact Diagnoses Pseudomonal bacteremia Procedures [facility] IP/OBS CARE INITIAL MODERATE LEVEL PER DAY Napoleon Neely MD [address] [place] [phone] Phone: tel: fax: [facility] Emergency [address] [place] [address] Phone: tel: Referral ID Status Reason Start Date Expiration Date Visits Re quested Visits Authorized [id number] 1 1 Encounter Details Date Type Department Care Team (Late st Contact Info) Description 06/13/2024 12:02 PM EST - 06/16/2024 2:30 PM EST Hospital Encounter [facility] Medical Surgical Unit [address] [place] [address] Barak Benjamin MD [address] [place] [address] Napoleon Neely MD [address] [place] [phone] Liang Uribe MD [address] [place] [address] Deborah Barahona MD [address] [place] [address] Bacteremia (Primary Dx); Alex catheter in place; Urinary tract infection associated with indwelling urethral catheter, initial encounter ([facility]); Hx of ascites; Anasarca Discharge Disposition: Home-Health [...] from the original note were not included. [place] DISCHARGE SUMMARY Patient Information Jonny Gordon : [...] urine output In the ED here at [facility] patient had Alex catheter changed. At [...] Patient follows with urology, Dr. Simon at [facility] He also follows with Dr. Sloan [...] indeterminate. Could be infectious, inflammatory or neoplastic. Tdibo-az-jiszlmet size left pleural effusion and trace right pleural effusion with mild subjacent atelectasis. Cardiomegaly. Mildly dilated main pulmonary artery indicating pulmonary arterial hypertension. Hepatic cirrhosis with ascites and splenomegaly. CT Abd/Pelvis w Contrast - Cirrhotic liver with portal hypertension including vndcpeve-va-erceo volume ascites, splenomegaly and varices. No apparent [...] daily -Patient follows up with urology at [place] however he is not happy with his [...] Dictated Date: 06/14/2024 11:28 ET Assigned Physician: Val Meng and Electronically Signed By: Aurora Meng Signed Date: 06/15/2024 12:40 ET Workstation ID: [id number] Transcribed By: Self Edit Transcribed Date: 06/14/2024 11:29 ET Resident/PA/MARINE DRILLER: Milady Chilel Lab Results Component Value Date [...] Signed Date: 06/15/2024 12:40 ET Workstation ID: [id number] Transcribed By: Self Edit Transcribed Date: 06/14/2024 11:29 ET Resident/PA/MARINE DRILLER: Milady Chilel Follow-Up Instructions and Recommendations [facility] Care [address] [place] [phone] More than 30 minutes spent on [...] mouth 1 (one) time each day. 06/03/2024 rosuvastatin (CRESTOR) 5 mg tablet Take 1 tablet (5 mg total) by mouth 1 (one) time each day. 03/25/2024 tamsulosin (FLOMAX) 0.4 mg 24 hr capsule Take 1 capsule (0.4 mg total) by mouth 1 (one) time each day. zolpidem (AMBIEN) 10 mg tablet Take 1 tablet (10 mg total) by mouth at bedtime as needed. for insomnia ciprofloxacin (CIPRO) 500 mg tablet Take 1.5 tablets (750 mg total) by mouth 2 (two) times a day for 10 days. 30 each 06/16/2024 oxyCODONE (OXY-IR) 5 mg immediate release capsule Take 2 capsules (10 mg total) by mouth every 4 (four) hours if needed for severe pain. Max Daily Amount: 60 mg 15 capsule 03/02/2024 oxyCODONE (ROXICODONE) 10 mg immediate release tablet Take 1 tablet (10 mg total) by mouth every 4 (four) hours if needed for severe pain. spironolactone (ALDACTONE) 100 mg tablet Take 1.5 tablets (150 mg total) by mouth 1 (one) time each day. 45 each 05/25/2024 5 documented as of this encounter Ordered Prescriptions Prescription Sig Dispense Quantity Refills Last Filled Start Date End Date ciprofloxacin (CIPRO) 500 mg tablet Take 1.5 tablets (750 mg total) by mouth 2 (two) times a day for 10 days. 30 each 06/16/2024 5 documented in this encounter Discharge Disposition Disposition Code Departure Means Destination Comment s Home-Health Care [facility] documented in this encounter Progress Notes * Deborah Barahona MD - 06/16/2024 2:30 PM EST [facility] Provider Response Note PATIENT: JONNY GORDON : 1960 ADMIT DATE: 06/13/2024 2:04 PM DISCH DATE: 06/16/2024 2:30 PM RESPONDING PROVIDER #: [id number] PROVIDER RESPONSE TEXT: The patient has secondary [...] is on Eliquis for hemochromatosis per EMR. 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 Hao driving patient home. to picking crew supervisor medication from pharmacy on the way home. [...] Discharge Needs Discipline following for SNF placement Content Engineer Informed Choice Informed Choice Given? Yes Transportation Transportation at discharge Ambulance Company providing transportation Hao What day is the transport expected? 06/16/24 What time is the transport expected? 1430 Final Discharge Disposition Home Health Care Services Patient discharging home via ambulance with 47 hours of GAMEPLAY ENGINEER services and [facility], at bedside and aware * Stephany Cifuentes PT - 06/16/2024 12:30 PM EST Patient: Jonny Gordon Age: 64 y.o. Sex: male Pseudomonal bacteremia [facility] Physical Therapy Treatment Ambulation: Walking Assistance: Contact guard Device: Rolling walker Distance Ambulated (ft): 10 PLOF: Level of Etoile: Independent with mobility and functional transfers Lives With: Alone Receives Help From: uniform room attendant (47HRS/WK) Type of Home: House Home [...] to dc home with 47 +hours of GAMEPLAY ENGINEER care, . and recommending home PT services [...] Outcomes Date/Time User Outcome 06/16/24 1428 Stephany Cifuentes, PT Progressing Encounter Problems (Resolved) There are [...] - 06/16/2024 4:37 AM EST Problem: Cognitive: Nika Samano Fall Risk Goal: Last Known Fall 06/16/2024436 by Sisi Hernandez RN Outcome: Progressing 06/16/2024436 by Sisi Hernandez RN Outcome: Progressing Goal: Mobility requiring assistance of person or device 06/16/2024436 by Sisi Hernandez RN Outcome: Progressing 06/16/2024436 by iSsi Hernandez RN Outcome: Progressing Goal: Dizziness 06/16/2024436 [...] Uribe MD - 06/16/2024 12:38 AM EST [facility] Provider Response Note PATIENT: JONNY GORDON : 1960 ADMIT DATE: 06/13/2024 2:04 PM DISCH DATE: RESPONDING PROVIDER #: [id number] PROVIDER RESPONSE TEXT: The two conditions are due to or associated. QUERY TEXT: Please clarify in documentation the relationship, if any, between Complicated UTI with Pseudomonas and chronic indwelling Alex catheter since February. Such as: H&P 06/13/2024 (1) HPI: In the ED here at [facility] patient had Alex catheter changed... morbid [...] urine output In the ED here at [facility] patient had Alex catheter changed. At [...] Patient follows with urology, Dr. Simon at [facility] He also follows with Dr. Sloan [...] a 64 y.o. male : 1960 MR#: [id number] SUBJECTIVE Subjective Patient seen and examined bedside this morning. No new complaints and no significant overnight events. Sister present as well. Per GI request echo ordered as part of [facility] workup. Objective Allergy- Codeine, Nystatin, and Semaglutide OBJECTIVE Vitals: 06/15/24 0753 06/15/24 2037 06/16/24 0323 06/16/24 0722 BP: 122/63 122/61 121/60 115/66 BP Location: Left arm Right arm Right arm Patient Position: Lying Lying Lying Pulse: 82 89 87 99 Resp: 17 12 16 18 Temp: 36.1 ??C (96.9 ??F) [...] daily -Patient follows up with urology at [place] however he is not happy with his [...] Signed By: Signed Date: ET Workstation ID: [id number] Transcribed By: Self Edit Transcribed Date: 06/14/2024 11:29 ET Resident/PA/MARINE DRILLER: Milady Chilel CT Abdomen Pelvis w Contrast [...] Impression: Cirrhotic liver with portal hypertension including sekwwtxi-gk-eaknv volumeascites, splenomegaly and varices. No apparent bowel [...] contour and moderate volume of ascites. Splenomegaly. Jxnyy-ef-bsobupel size left pleural effusion and trace right [...] recommended in 3 months to assess stability. Bpkny-nb-pemwswon size left pleural effusion and trace right [...] Signed Date: 05/21/2024 09:23 ET Workstation ID: [id number] Transcribed By: Self Edit Transcribed Date:05/21/2024 09:22 [...] Signed Date: 05/20/2024 08:06 ET Workstation ID: [id number] Transcribed By: Self Edit Transcribed Date: 05/20/2024 [...] bloodC/S. The pt was recently discharged from [facility] on 05/25 for UI. He then [...] on PO Cipro 750 mg BID, EOT 3, otherwise will need to go on IV Cefepime 2 g Q8, EOT 3, please check weekly CBC and BMP and faxto my office at [phone] Recommend Urology consult, the pt has had [...] Age: 64 y.o. Sex: male Pseudomonal bacteremia [facility] Physical Therapy Evaluation PLOF: Level of Etoile: Independent with mobility and functional transfers Lives With: Alone Receives Help From: uniform room attendant (47HRS/WK) Type of Home: House Home Adaptive Equipment: Walker - rolling, Wheelchair-manual, Bariatric equipment, Tub seat with back, Bedside commode, Other (Comment) (stair chair) Home Layout: One level Home Access: Stairs to enter with rails DME Needs: PT Discharge Recommendation: snf facility placement, (however pt would like to return home and has 47 hours of casing tester care. Reason for current recommendation based on [...] COLONOSCOPY N/A PROCEDURE: HISTORICAL COLONOSCOPY ESOPHAGOGASTRODUODENOSCOPY PROCEDURE: [place] ESOPHAGOGASTRODUODENOSCOPY TRANSORAL DIAGNOSTIC OTHER SURGICAL HISTORY Right PROCEDURE: [place] STAB PHLEBT VARICOSE VEINS 1 XTR > [...] of Steps 1 Prior Function Level of Etoile Independent with mobility and functional transfers Ambulation Status Household ambulator Receives Help From uniform room attendant (47HRS/WK) Indoor Mobility Assistance Needed Some [...] 2-5 days per week PT Discharge Recommendations snf facility placement PT - Evaluation Status Complete [...] 2-5 days per week PT Discharge Recommendations: snf facility placement Encounter Problems Encounter Problems (Active) [...] Verbalizes Understanding Comment: discussed POC while at [facility] Mobility Training, taught by Stephany Cifuentes PT at 06/15/2024 12:17 PM. Learner: Patient Readiness: Acceptance Method: Explanation Response: Verbalizes Understanding Comment: discussed POC while at [facility] Education Comments No comments found. Stephany [...] from the original note were not included. [place] PROGRESS NOTE Date: 06/14/2024 Author: Liang Uribe MD Patient ID: Jonny Gordon is a 64 y.o. male : 1960 MR#: [id number] SUBJECTIVE Subjective Patient seen and examined bedside [...] from last 7 days Lab Units 06/14/2451306/13/24 12306/11/24 2314 WBC AUTO K/mcL 4.5* 6.9 5.0 HEMOGLOBIN g/dL 11.6* 11.0* 12.5* HEMATOCRIT % 35.2* 32.8* 38.0* PLATELETS K/mcL 77* 74* 85* LYMPHS PCT AUTO % 13.9 5.5 4.4 MONO PCT AUTO % 9.7 6.4 1.4 EOS PCT AUTO % 0.4 0.1 0.0 Results from last 7 days Lab Units 06/14/24 0514 06/13/24 1237 06/11/24 2314 SODIUM mmol/L 133 133 [...] daily -Patient follows up with urology at [place] however he is not happy with his urologist and planningto see another urologist outpatient. Continue Alex care. Alex catheter was changed today Chronic pain Opiate dependence - Oxycodone 10 mg every 4 hours as needed NICLOE Morbid obesity - CPAP at night Hemochromatosis [...] infectious concerns): [] Yes / [x] No Second Baller: [] Yes / [x] No If YES, Cardiac Rhythm: [x] NSR, [] SB, [] ST, [] A-FIB, [] A-Flutter, [] Pacemaker, [] 1st Degree HB, [] 2nd Degree HB, [] 3rd Degree HB Reason for Second Baller: VS: Visit Vitals BP 121/70 (BP Location: [...] infectious concerns): [] Yes / [x] No Second Baller: [x] Yes / [] No If YES, Cardiac Rhythm: [x] NSR, [] SB, [] ST, [] A-FIB, [] A-Flutter, [] Pacemaker, [] 1st Degree HB, [] 2nd Degree HB, [] 3rd Degree HB Reason for Second Baller: VS: Visit Vitals BP (!) 107/47 Pulse [...] #, Relationship) for DC Planning Elinor Cortez [phone] or sister Denver [phone] Living Arrangements Alone (has GAMEPLAY ENGINEER 47 hours per week) Type of Residence Private residence (Duplex, has stair chair to bedroom upstairs) Assistive Devices Walker;Wheelchair Support Systems Immediate family;Other (Comment) (GAMEPLAY ENGINEER) Medication Coverage Has Med Coverage Under Insurance [...] few steps with a walker. Patient has GAMEPLAY ENGINEER services 47 hours per week, 37 hours Mon-Fri and 10 hours Sat/Sun. Patient's GAMEPLAY ENGINEER Elinor in his HCP. Patient reports that he was recenly at [facility]. At this time patient declines SNF referrals. Patient is active with [facility]. Patient will need ambulance upon d/c home. Barrier to d/c: + blood cx, hematuria via alex, IV abx Dispo: home with [facility] and GAMEPLAY ENGINEER (has GAMEPLAY ENGINEER 37 hours Mon-Fri and 10 hours Sat/Sun). Was recently at [facility], patient declines SNF placement. Will need ambulance upon d/c * Mirta Menon RN - 06/13/2024 12:03 PM EST Patient BIBA for bright red blood noted this morning in chronic alex cath for hx hematochromotosis. Last alex change 2 days ago. Denies pain and catheter draining normally. Reports taking blood thinners. States he was called by someone at [facility] for abnormal labs and told to [...] N/A PROCEDURE: HISTORICAL COLONOSCOPY ??? ESOPHAGOGASTRODUODENOSCOPY PROCEDURE: [place] ESOPHAGOGASTRODUODENOSCOPY TRANSORAL DIAGNOSTIC ??? OTHER SURGICAL HISTORY Right PROCEDURE: [place] STAB PHLEBT VARICOSE VEINS 1 XTR > [...] Procedure Abnormality Status --------- ------ CBC auto differential[[id number]] Please view results for these tests on [...] with indwelling urethral catheter, initial encounter ([facility]) Procedures @PROCEDURENOTES@ Diagnosis 1. Bacteremia 2. Alex catheter in place Disposition Admit to Inpatient ED Prescriptions None Physician Attestation Barak Benjamin MD 06/13/24 1224 Barak Benjamin MD 06/13/24 1512 documented in this encounter H&P Notes * GIORGI Drake - 06/13/2024 3:17 PM EST Images from the original note were not included. [facility] HISTORY AND PHYSICAL Please contact author [GIORGI Calvillo] via [employer]/Home Delivery Service (HDS). Patient: Jonny Gordon Admission Date/Time: 06/13/2024 12:02 [...] urine output In the ED here at [facility] patient had Alex catheter changed. At [...] Patient follows with urology, Dr. Simon at [facility] He also follows with Dr. Sloan [...] indeterminate. Could be infectious, inflammatory or neoplastic. Gpcbk-ay-jitpkgir size left pleural effusion and trace right pleural effusion with mild subjacent atelectasis. Cardiomegaly. Mildly dilated main pulmonary artery indicating pulmonary arterial hypertension. Hepatic cirrhosis with ascites and splenomegaly. CT Abd/Pelvis w Contrast - Cirrhotic liver with portal hypertension including jwcnxfks-zv-eppad volume ascites, splenomegaly and varices. No apparent [...] CT Angio Chest wo and/or w Contrast [[id number]] Collected: 06/12/24 0643 Order Status: Completed Updated: [...] contour and moderate volume of ascites. Splenomegaly. Kjmoj-zi-gjhfpmdj size left pleural effusion and trace right [...] recommended in 3 months to assess stability. Eulbq-pd-fwrormic size left pleural effusion and trace right pleural effusion with mild subjacent atelectasis. Cardiomegaly. Mildly dilated main pulmonary artery indicating pulmonary arterial hypertension. Hepatic cirrhosis with ascites and splenomegaly. Please see CT abdomen/pelvis report for additionaldetails. No evidence for pulmonary artery embolus. This document has been electronically signed by: Hernan Godwin MD on 06/12/2024 06:43:23 CT Abdomen Pelvis w Contrast [[id number]] Collected: 06/12/24 0706 Order Status: Completed Updated: 06/12/24 0707 Narrative: INDICATION: pain, hematuria CT abdomen and [...] Impression: Cirrhotic liver with portal hypertension including bqvpplpc-gp-hywjt volume ascites, splenomegaly and varices. No apparent [...] as needed FULL CODE HCP: hollie Aldrich [phone] PPX: Pneumoboots Case and plan discussed with: [...] bloodC/S. The pt was recently discharged from [facility] on 05/25 for UI. He then [...] COLONOSCOPY N/A PROCEDURE: HISTORICAL COLONOSCOPY ESOPHAGOGASTRODUODENOSCOPY PROCEDURE: [place] ESOPHAGOGASTRODUODENOSCOPY TRANSORAL DIAGNOSTIC OTHER SURGICAL HISTORY Right PROCEDURE: [place] STAB PHLEBT VARICOSE VEINS 1 XTR > [...] mg total) into affected nostril(s). 02/03/23 Historical ProviderMD oxyCODONE (OXY-IR) 5 mg immediate release capsule [...] Nightly, GIORGI Drake, 20 mg at 06/13/24 2123 cefepime (MAXIPIME) 2 g in sterile water [...] ??F) (06/14 101) Heart Rate: 86 (06/14 101) Resp: 17 (06/14 101) BP: 121/70 (06/14 101) Intake/Output this shift: [...] Signed By: Signed Date: ET Workstation ID: [id number] Transcribed By: Self Edit Transcribed Date: 06/14/2024 11:29 ET Resident/PA/MARINE DRILLER: Milady Chilel Assessment/Plan Jonny Gordon is a [...] bloodC/S. The pt was recently discharged from [facility] on 05/25 for UI. He then [...] 8:30 AM EDT Office Visit [facility] - [place] [address] [place] [phone] Han Sloan DO [address] [place] [address] documented as of this encounter Procedures Procedure Name Priority Date/Time Associated Diagnosis Comments IR INSERT HEPATIC SHUNT TIPS Routine 07/06/2024 5:31 PM EDT Hx of ascites TRANSTHORACIC ECHOCARDIOGRAM (TTE) COMPLETE W/ CONTRAST Routine [...] EST documented in this encounter Results * IR Insert Hepatic Shunt TIPS (07/06/2024 [...] Signed Date: 07/06/2024 17:22 ET Workstation ID: [id number] Transcribed By: Self Edit Transcribed Date: 07/06/2024 [...] and a 0.035 guidewire was inserted. ??A 10-Syrian by 45 cm check flow sheath was inserted and advanced to the IVC. ??A 5-Syrian MPA catheter was then used to catheterize the right hepatic vein. ??Venogram confirms position in the hepatic vein. ??The 10-Syrian by 45 cm sheath was advanced over [...] with an 6 mm x 6 cm CAPABILITY LEAD balloon. ??The sheath was then advanced into [...] and a 0.035 guidewire was inserted. A 10-Syrian by45 cm check flow sheath was inserted and advanced to the IVC. A 5-FrenchMPA catheter was then used to catheterize the right hepatic vein.Venogram confirms position in the hepatic vein. The 10-Syrian by 45 cmsheath was advanced over the catheter into the right hepatic vein. TheDanlanon scorpion TIPS set was then introduced through [...] dilatedwith an 6 mm x 6 cm CAPABILITY LEAD balloon. The sheath was then advanced into [...] Signed Date: 07/06/2024 17:22 ET Workstation ID: [id number] Transcribed By: Self Edit Transcribed Date: 07/06/2024 17:09 ET us Job Anderson MD IMG IR PROCEDURES Final Re sult * (ABNORMAL) TRANSTHORACIC ECHOCARDIOGRAM (TTE) COMPLETE W/ CONTRAST (06/15/2024 2:35 PM EST) Left Atrium Major [place] 5.9 cm CV PACS LA Area Sys [...] GEMUSE QTc 485 ms GEMUSE P Wave [place] 28 degrees GEMUSE R [place] -36 degrees GEMUSE T [place] 29 degrees GEMUSE ECG Interpretation Normal sinus rhythm Left axis deviation Right bundle branch block Abnormal ECG When compared with ECG of 12-JUN-2024 03:57, No significant change was found Confirmed by MD Felix, Ashwin ([id number]) on 06/15/2024 5:37:07 PM GEMUSE 06/15/2024 12:5 3 PM EST 06/15/2024 5:37 PM EST Liang Uribe MD ECG ORDERABLES Fin al Result GEMUSE * Magnesium (06/15/2024 6:38 AM EST) Magnesium 1.9 1.9 - 2.6 mg/dL LAB CHEMISTRY METHOD 06/15/2024 7:50 AM [facility] Blood Venous blood specimen / Unknown Venipuncture / Unknown 06/15/2024 6:38 AM EST 06/15/2024 7:06 AM EST Liang Uribe MD LAB BLOOD ORDERABLE S Final Result [facility] [address] [place] [address], [place] [phone] * (ABNORMAL) Basic metabolic panel (06/15/2024 6:38 AM EST) Sodium 134 133 - 145 mmol/L LAB CHEMISTRY METHOD 06/15/2024 7:50 AM [facility] Potassium 4.2 3.5 - 5.5 mmol/L LAB CHEMISTRY METHOD 06/15/2024 7:50 AM [facility] Chloride 100 96 - 110 mmol/L LAB CHEMISTRY METHOD 06/15/2024 7:50 AM [facility] CO2 30 21 [...] 73m2 LAB CHEMISTRY METHOD 06/15/2024 7:50 AM EST [facility] Comment:Calculation based on [...] Final Result [facility] [address] [place] [address], * (ABNORMAL) Complete blood count (06/15/2024 6:38 [...] LAB HEMETOLOGY METHOD 06/15/2024 7:42 AM EST [facility] MCH 34.5(H) 27.0 - 32.0 pcg LAB HEMETOLOGY METHOD 06/15/2024 7:42 AM EST [facility] MCHC 33.7 32.0 - 37.0 g/dL LAB HEMETOLOGY METHOD 06/15/2024 7:42 AM [facility] RDW 17.0(H) 11.0 - 15.0 % LAB HEMETOLOGY METHOD 06/15/2024 7:42 AM [facility] Platelets 81(L) 130 - 400 K/mcL LAB HEMETOLOGY METHOD 06/15/2024 7:42 AM [facility] Comment:previously verified by slide MPV 11.0 7.0 - 11.0 FL LAB HEMETOLOGY METHOD 06/15/2024 7:42 AM [facility] NRBC 0.0 [...] Final Result [facility] [address] [place] [address], * Phosphorus (06/15/2024 6:38 AM EST) Phosphorus 3.0 2.5 - 4.5 mg/dL LAB CHEMISTRY METHOD 06/15/2024 7:50 AM [facility] Blood Venous blood specimen / Unknown Venipuncture / Unknown 06/15/2024 6:38 AM EST 06/15/2024 7:06 AM EST Liang Uribe MD LAB BLOOD ORDERABLE S Final Result Performing Organization Address [facility]/ZIP Co de Phone Number [facility] [address] [place] [address], [place] [phone] * Differential body fluid (06/14/2024 10:19 AM EST) Fluid Neutrophils % 4 % 06/14/2024 11:38 AM EST [facility] Fluid Lymphocytes % 74 % 06/14/2024 11:38 AM EST [facility] Fluid Monocytes/Macrop hages 22 % 06/14/2024 11:38 AM EST [facility] Fluid Eosinophils % 0 % 06/14/2024 11:38 AM EST [facility] Fluid Basophils % 0 % 06/14/2024 11:38 AM EST [facility] Fluid Other Cells % 0 % 06/14/2024 11:38 AM EST [facility] Peritoneal Fluid Peritoneal cavity structure / Unknown Non-blood Collection / Unknown 06/14/2024 10:19 AM EST 06/14/2024 10:27 AM EST Narrative [facility] - 06/14/2024 11:38 AM EST No reference ranges have been established for body fluids. Clinical correlation recommended. us Cristiana RAND LAB BODY FLUIDS AND STO OLS ORDERABLES Final Result Performing Organization Address City/[facility]/ZIP Co de Phone Number [facility] [address] [place] [address], [place] [phone] * Cell count with reflex differential, body fluid (06/14/2024 10:19 AM EST) Body Fluid Total Nucleated Cells 218 /mm3 LAB HEMETOLOGY METHOD 06/14/2024 11:38 AM EST [facility] Body Fluid RBC [...] EST [facility] - 06/14/2024 11:38 AM EST No reference ranges have been established for body fluids. Clinical correlation recommended. Cristiana RAND LAB BODY FLUIDS AND STO OLS ORDERABLES Final Result [facility] [address] [place] [address], * Non-gynecologic cytology (06/14/2024 10:19 AM EST) [...] paraffin embedded. Technical cytopathology services provided by [facility], at [address] [place] [address] ([facility] # [id number]/Katya Lo MD, Vendor Relationship Manager.) 06/17/2024 4:30 PM EST [facility] Peritoneal Fluid Peritoneal cavity structure / Unknown Non-blood Collection / Unknown 06/14/2024 10:19 AM EST 06/14/2024 2:30 PM EST Cristiana RAND LAB CYTOLOGY ORDERABLES Final Result [facility] [address] [place] [address], [place] [phone] * Culture fungal, other (06/14/2024 10:19 AM EST) Culture, Fungus Negative for Fungus after 4 Weeks 07/12/2024 10:17 AM EDT [facility] Peritoneal Fluid Peritoneal cavity structure / Unknown Non-blood Collection / Unknown 06/14/2024 10:19 AM EST 06/14/2024 10:27 AM EST Cristiana RAND LAB MICROBIOLOGY - GENE RAL ORDERABLES Final Result [facility] [address] [place] [address], [place] [phone] * Specific gravity, body fluid (06/14/2024 10:19 AM EST) Spec Grav, Fluid 1.014 06/14/2024 11:01 AM EST [facility] Peritoneal Fluid Non-blood Collection / Unknown 06/14/2024 10:19 AM EST 06/14/2024 10:26 AM EST Narrative [facility] - 06/14/2024 11:01 AM EST No reference ranges have been established for body fluids. Clinical correlation recommended. Cristiana RAND LAB BODY FLUIDS AND STO OLS ORDERABLES Final Result Performing Organization Address [facility]/ZIP Co de Phone Number [facility] [address] [place] [address], [place] [phone] * Amylase, body fluid (06/14/2024 10:19 AM EST) Amylase, Fluid 24 See Comment unit/L LAB CHEMISTRY METHOD 06/14/2024 11:19 AM EST [facility] Peritoneal Fluid Non-blood Collection / Unknown 06/14/2024 10:19 AM EST 06/14/2024 10:26 AM EST [facility] - 06/14/2024 11:19 AM EST No reference ranges have been established for body fluids. Clinical correlation recommended. Cristiana RAND LAB BODY FLUIDS AND STO OLS ORDERABLES Final Result Performing Organization Address [facility] Co de Phone Number [facility] [address] [place] [address], [place] [phone] * Glucose, body fluid (06/14/2024 10:19 AM EST) Glucose, Fluid 150 See Comment mg/dL LAB CHEMISTRY METHOD 06/14/2024 11:28 AM EST [facility] Ascites 06/14/2024 10:1 9 AM EST 06/14/2024 10:26 AM EST [facility] - 06/14/2024 11:28 AM EST No reference ranges have been established for body fluids. Clinical correlation recommended. Cristiana RAND LAB BODY FLUIDS AND STO OLS ORDERABLES Final Result Performing Organization Address City/[facility]/ZIP Co de Phone Number [facility] [address] [place] [address], [place] [phone] * Lactate dehydrogenase, body fluid (06/14/2024 10:19 AM EST) LD, Fluid 78 See Comment unit/L LAB CHEMISTRY METHOD 06/14/2024 11:42 AM EST [facility] Peritoneal Fluid Peritoneal cavity structure / Unknown Non-blood Collection / Unknown 06/14/2024 10:19 AM EST 06/14/2024 10:27 AM EST [facility] - 06/14/2024 11:42 AM EST No reference ranges have been established for body fluids. Clinical correlation recommended. us Cristiana RAND LAB BODY FLUIDS AND STO OLS ORDERABLES Final Result Performing Organization Address [facility]/ZIP Co de Phone Number [facility] [address] [place] [address], [place] [phone] * Protein, body fluid (06/14/2024 10:19 AM EST) [facility] Protein, Fluid 1.4 See Comment g/dL LAB CHEMISTRY METHOD 06/14/2024 11:19 AM EST [facility] Peritoneal Fluid Non-blood Collection / Unknown 06/14/2024 10:19 AM EST 06/14/2024 10:26 AM EST [facility] - 06/14/2024 11:19 AM EST No reference ranges have been established for body fluids. Clinical correlation recommended. us Cristiana RAND LAB BODY FLUIDS AND STO OLS ORDERABLES Final Result Performing Organization Address City/[facility]/ZIP Co de Phone Number [facility] [address] [place] [address], [place] [phone] * Albumin, body fluid (06/14/2024 10:19 AM EST) [facility] Signature Albumin, Fluid 0.6 See Comment g/dL LAB CHEMISTRY METHOD 06/14/2024 11:19 AM EST [facility] Peritoneal Fluid Non-blood Collection / Unknown 06/14/2024 10:19 AM EST 06/14/2024 10:26 AM EST Narrative [facility] - 06/14/2024 11:19 AM EST No reference ranges have been established for body fluids. Clinical correlation recommended. Cristiana RAND LAB BODY FLUIDS AND STO OLS ORDERABLES Final Result Performing Organization Address [facility]/ZIP Co de Phone Number [facility] [address] [place] [address], [place] [phone] * Culture body fluid with gram stain (06/14/2024 10:19 AM EST) Fluid Culture No growth at 3 days LAB MICROBIOLOGY METHOD 06/17/2024 11:25 AM EST [facility] Gram Stain Result No polymorphonuclear leukocytes, No epithelial cells, and No organisms noted 06/17/2024 11:25 AM EST [facility] Peritoneal Fluid Peritoneal cavity structure / Unknown Non-blood Collection / Unknown 06/14/2024 10:19 AM EST 06/14/2024 10:26 AM EST Cristiana RAND LAB MICROBIOLOGY - GENE RAL ORDERABLES Final Result Performing Organization Address [facility]/ZIP Co de Phone Number [facility] [address] [place] [address], [place] [phone] * [place] Paracentesis w Image Guidance (06/14/2024 10:17 AM EST) Anatomical Region Laterality Modality Abdomen Ultrasound 06/14/2024 11:2 8 AM EST Impressions 06/15/2024 12:40 PM EST Successful paracentesis of 4.7L of ascitic fluid without complications. -------- FINAL REPORT -------- Dictated By: Milady Chilel Dictated Date: 06/14/2024 11:28 ET Assigned Physician: Aurroa Meng Reviewed and Electronically Signed By: Aurora Meng Signed Date: 06/15/2024 12:40 ET Workstation ID: [id number] Transcribed By: Self Edit Transcribed Date: 06/14/2024 11:29 ET Resident/PA/MARINE DRILLER: Milady Chilel Narrative 06/15/2024 12:40 PM EST [...] Signed Date: 06/15/2024 12:40 ET Workstation ID: [id number] Transcribed By: Self Edit Transcribed Date: 06/14/2024 11:29 ET Resident/PA/MARINE DRILLER: Milady Chilel Cristiana RAND IMG US PROCEDURES Final Result * Lactate, with reflex (06/14/2024 5:26 AM EST) Pathologist [facility] LACTIC ACID 1.6 0.4 - 2.0 mmol/L LAB CHEMISTRY METHOD 06/14/2024 6:03 AM EST [facility] Blood Venous blood specimen / Unknown Venipuncture / Unknown 06/14/2024 5:26 AM EST 06/14/2024 5:33 AM EST Napoleon Neely MD LAB BLOOD ORDERABLES Final Re sult Performing Organization Address [facility]/ZIP Co de Phone Number [facility] [address] [place] [address], [place] [phone] * Culture blood (06/14/2024 5:22 AM EST) Pathologist [facility] Culture, Blood No growth at 5 days 06/19/2024 6:01 AM EST [facility] Blood Venous blood specimen / Unknown Venipuncture / Unknown 06/14/2024 5:22 AM EST 06/14/2024 5:33 AM EST Napoleon Neely MD LAB MICROBIOLOGY - GENERAL OR DERABLES Final Result [facility] [address] [place] [address], [place] [phone] * (ABNORMAL) CBC auto differential (06/14/2024 5:14 [...] 6:00 AM [facility] Lymphocytes Absolute 0.62(L) 1.00 - 5.00 K/mcL LAB HEMETOLOGY METHOD 06/14/2024 6:00 AM [facility] Monocytes Absolute 0.43 0.20 - 1.00 K/mcL LAB HEMETOLOGY METHOD 06/14/2024 6:00 AM [facility] Eosinophils Absolute 0.02 0.00 - 0.50 K/mcL LAB HEMETOLOGY METHOD 06/14/2024 6:00 AM [facility] Basophils Absolute 0.02 0.00 - 0.20 K/mcL LAB HEMETOLOGY METHOD 06/14/2024 6:00 AM [facility] Immature Granulocytes Absolute 0.01 0.00 - 0.03 K/mcL LAB HEMETOLOGY METHOD 06/14/2024 6:00 AM [facility] Blood Venous blood specimen / Unknown Venipuncture / Unknown 06/14/2024 5:14 AM EST 06/14/2024 5:34 AM EST us Napoleon Neely MD LAB BLOOD ORDERABLES Final Re sult [facility] [address] [place] [address], [place] [phone] * Magnesium (06/14/2024 5:14 AM EST) Magnesium 1.9 1.9 - 2.6 mg/dL LAB CHEMISTRY METHOD 06/14/2024 5:57 AM EST [facility] Blood Venous blood specimen / Unknown Venipuncture / Unknown 06/14/2024 5:14 AM EST 06/14/2024 5:34 AM EST us Napoleon Neely MD LAB BLOOD ORDERABLES Final Re sult [facility] [address] [place] [address], [place] [phone] * (ABNORMAL) Basic metabolic panel (06/14/2024 5:14 AM EST) Sodium 133 133 - 145 mmol/L LAB CHEMISTRY METHOD 06/14/2024 5:57 AM [facility] Potassium 3.8 3.5 - 5.5 mmol/L LAB CHEMISTRY METHOD 06/14/2024 5:57 AM [facility] Chloride 99 96 - 110 mmol/L LAB CHEMISTRY METHOD 06/14/2024 5:57 AM [facility] CO2 31 21 - 32 mmol/L LAB CHEMISTRY METHOD 06/14/2024 5:57 AM [facility] Anion Gap 3 3 - 11 LAB CHEMISTRY METHOD 06/14/2024 5:57 AM [facility] Glucose 131(H) 70 - 100 mg/dL LAB CHEMISTRY METHOD 06/14/2024 5:57 AM [facility] BUN 13 5 - 25 mg/dL LAB CHEMISTRY METHOD 06/14/2024 5:57 AM [facility] Creatinine 0.56(L) 0.70 - 1.30 mg/dL LAB CHEMISTRY METHOD 06/14/2024 5:57 AM EST [facility] eGFR 109 >=60 mL/min/1. 73m2 LAB CHEMISTRY METHOD 06/14/2024 5:57 AM EST [facility] Comment:Calculation based on the??Chronic Kidney Disease Epidemiology Collaboration (CKD-EPI) equation refit??without adjustment for race. BUN/Creatinine Ratio 23.2 LAB CHEMISTRY METHOD 06/14/2024 5:57 AM [facility] Calcium 8.2(L) 8.5 - 10.5 mg/dL LAB CHEMISTRY METHOD 06/14/2024 5:57 AM EST [facility] Blood Venous blood specimen / Unknown Venipuncture / Unknown 06/14/2024 5:14 AM EST 06/14/2024 5:34 AM EST us Napoleon Neely MD LAB BLOOD ORDERABLES Final Re sult Performing Organization Address [facility]/ZIP Co de Phone Number [facility] [address] [place] [address], * Culture blood (06/14/2024 5:14 AM EST) Culture, Blood No growth at 5 days 06/19/2024 6:01 AM EST [facility] Blood Venous blood specimen / Unknown Venipuncture / Unknown 06/14/2024 5:14 AM EST 06/14/2024 5:33 AM EST us Napoleon Neely MD LAB MICROBIOLOGY - GENERAL OR DERABLES Final Result [facility] [address] [place] [address], * (ABNORMAL) Lactate, with reflex (06/13/2024 3:34 PM EST) Pathologist [facility] LACTIC ACID 2.6(H) 0.4 - 2.0 mmol/L LAB CHEMISTRY METHOD 06/13/2024 4:40 PM EST [facility] Blood Venous blood specimen / Unknown Venipuncture / Unknown 06/13/2024 3:34 PM EST 06/13/2024 4:07 PM EST Barak Benjamin MD LAB BLOOD ORDERABLES Berenice l Result Performing Organization Address [facility] Co de Phone Number [facility] [address] [place] [address], * Prostate specific antigen screen (06/13/2024 12:37 PM EST) Pathologist [facility] PSA 0.18 0.00 - 4.00 ng/mL LAB CHEMISTRY METHOD 06/13/2024 2:31 PM EST [facility] Blood Venous blood specimen / Unknown Venipuncture / Unknown 06/13/2024 12:37 PM EST 06/13/2024 12:55 PM EST Narrative [facility] - 06/13/2024 2:31 PM EST The Siemens Advia Centaur Chemiluminescent Immunoassay is used. Results obtained with different assay methods or kits cannot be used interchangeably. Results cannot be interpreted as absolute evidence of the presence or absence of malignant disease. Napoleon Neely MD LAB BLOOD ORDERABLES Final Re sult Performing Organization Address [facility]/ZIP Co de Phone Number [facility] [address] [place] [address], * (ABNORMAL) Hepatic function panel (06/13/2024 12:37 PM EST) Total Protein 5.9(L) 6.0 - 8.0 g/dL LAB CHEMISTRY METHOD 06/13/2024 2:25 PM EST [facility] Albumin 2.3(L) 3.2 - 5.0 g/dL LAB CHEMISTRY METHOD 06/13/2024 2:25 PM [facility] Total Bilirubin 2.6(H) 0.0 - 1.4 mg/dL LAB CHEMISTRY METHOD 06/13/2024 2:25 PM [facility] Bilirubin, Direct 1.4(H) 0.0 - 0.3 mg/dL LAB CHEMISTRY METHOD 06/13/2024 2:25 PM [facility] Bilirubin, Indirect 1.2(H) 0.0 - 1.1 mg/dL LAB CHEMISTRY METHOD 06/13/2024 2:25 PM [facility] ALT (SGPT) [...] Re sult [facility] [address] [place] [address], * (ABNORMAL) C-reactive protein (06/13/2024 12:37 PM EST) [facility] C-Reactive Protein 10.20(H) <=0.50 mg/dL LAB CHEMISTRY METHOD 06/13/2024 2:25 PM [facility] Blood Venous blood specimen / Unknown Venipuncture / Unknown 06/13/2024 12:37 PM EST 06/13/2024 12:55 PM EST us Napoleon Neely MD LAB BLOOD ORDERABLES Final Re sult [facility] [address] [place] [address], * (ABNORMAL) Basic metabolic panel (06/13/2024 12:37 PM EST) Sodium 133 133 - 145 mmol/L LAB CHEMISTRY METHOD 06/13/2024 1:21 PM [facility] Potassium 4.0 3.5 - 5.5 mmol/L LAB CHEMISTRY METHOD 06/13/2024 1:21 PM [facility] Chloride 102 96 - 110 mmol/L LAB CHEMISTRY METHOD 06/13/2024 1:21 PM [facility] CO2 26 21 - 32 mmol/L LAB CHEMISTRY METHOD 06/13/2024 1:21 PM [facility] Anion Gap 5 3 - 11 LAB CHEMISTRY METHOD 06/13/2024 1:21 PM [facility] Glucose 178(H) 70 - 100 mg/dL LAB CHEMISTRY METHOD 06/13/2024 1:21 PM [facility] BUN 13 5 - 25 mg/dL LAB CHEMISTRY METHOD 06/13/2024 1:21 PM [facility] Creatinine 0.65(L) 0.70 - 1.30 mg/dL LAB CHEMISTRY METHOD 06/13/2024 1:21 PM [facility] eGFR 104 >=60 mL/min/1. 73m2 LAB CHEMISTRY METHOD 06/13/2024 1:21 PM [facility] Comment:Calculation based on the??Chronic Kidney Disease Epidemiology Collaboration (CKD-EPI) equation refit??without adjustment for race. BUN/Creatinine Ratio 20.0 LAB CHEMISTRY METHOD 06/13/2024 1:21 PM EST [facility] Calcium 8.2(L) 8.5 - 10.5 mg/dL LAB CHEMISTRY METHOD 06/13/2024 1:21 PM EST [facility] Blood Venous blood specimen / Unknown Venipuncture / Unknown 06/13/2024 12:37 PM EST 06/13/2024 12:55 PM EST us Barak Benjamin MD LAB BLOOD ORDERABLES Berenice frank Result [facility] [address] [place] [address], [place] [phone] * (ABNORMAL) CBC auto differential (06/13/2024 12:37 PM EST) WBC 6.9 4.8 - 10.8 K/mcL LAB HEMETOLOGY METHOD 06/13/2024 1:10 PM [facility] RBC 3.20(L) 4.50 - 5.50 M/mcL LAB HEMETOLOGY METHOD 06/13/2024 1:10 PM [facility] Hemoglobin 11.0(L) 13.5 - 17.5 g/dL LAB HEMETOLOGY METHOD 06/13/2024 1:10 PM [facility] Hematocrit 32.8(L) 42.0 - 54.0 % LAB HEMETOLOGY METHOD 06/13/2024 1:10 PM [facility] MCV 104.1(H) 79.0 - 98.0 FL LAB HEMETOLOGY METHOD 06/13/2024 1:10 PM [facility] MCH 34.9(H) 27.0 - 32.0 pcg LAB HEMETOLOGY METHOD 06/13/2024 1:10 PM [facility] MCHC 33.5 32.0 - 37.0 g/dL LAB HEMETOLOGY METHOD 06/13/2024 1:10 PM [facility] RDW 17.6(H) 11.0 - 15.0 % LAB HEMETOLOGY METHOD 06/13/2024 1:10 PM [facility] Platelets 74(L) 130 - 400 K/mcL LAB HEMETOLOGY METHOD 06/13/2024 1:10 PM [facility] Comment:previously verified by slide MPV 11.2(H) 7.0 - 11.0 FL LAB HEMETOLOGY METHOD 06/13/2024 1:10 PM [facility] NRBC 0.0 <1.0 % LAB HEMETOLOGY METHOD 06/13/2024 1:10 PM [facility] NRBC Absolute 0.00 <0.10 K/mcL LAB HEMETOLOGY METHOD 06/13/2024 1:10 PM [facility] Neutrophils Relative 87.5 % LAB HEMETOLOGY METHOD 06/13/2024 1:10 PM [facility] Lymphocytes Relative 5.5 % LAB HEMETOLOGY METHOD 06/13/2024 1:10 PM [facility] Monocytes Relative 6.4 % LAB HEMETOLOGY METHOD 06/13/2024 1:10 PM [facility] Eosinophils Relative 0.1 % LAB HEMETOLOGY METHOD 06/13/2024 1:10 PM [facility] Basophils Relative 0.1 % LAB HEMETOLOGY METHOD 06/13/2024 1:10 PM [facility] Immature Granulocytes Relative 0.4 % LAB HEMETOLOGY METHOD 06/13/2024 1:10 PM [facility] Neutrophils Absolute 6.01 1.50 - 7.00 K/mcL LAB HEMETOLOGY METHOD 06/13/2024 1:10 PM [facility] Lymphocytes Absolute 0.38(L) 1.00 - 5.00 K/mcL LAB HEMETOLOGY METHOD 06/13/2024 1:10 PM EST [facility] Monocytes Absolute 0.44 0.20 - 1.00 K/mcL LAB HEMETOLOGY METHOD 06/13/2024 1:10 PM EST [facility] Eosinophils Absolute 0.01 0.00 - 0.50 K/mcL LAB HEMETOLOGY METHOD 06/13/2024 1:10 PM EST [facility] Basophils Absolute 0.01 0.00 - 0.20 K/mcL LAB HEMETOLOGY METHOD 06/13/2024 1:10 PM EST [facility] Immature Granulocytes Absolute 0.03 0.00 - 0.03 K/mcL LAB HEMETOLOGY METHOD 06/13/2024 1:10 PM EST [facility] Blood Venous blood specimen / Unknown Venipuncture / Unknown 06/13/2024 12:37 PM EST 06/13/2024 12:55 PM EST Barak Benjamin MD LAB BLOOD ORDERABLES Berenice l Result [facility] [address] [place] [address], [place] [phone] * (ABNORMAL) Lactate, with reflex (06/13/2024 12:37 PM EST) LACTIC ACID 2.9(H) 0.4 - 2.0 mmol/L LAB CHEMISTRY METHOD 06/13/2024 1:26 PM EST [facility] Blood Venous blood specimen / Unknown Venipuncture / Unknown 06/13/2024 12:37 PM EST 06/13/2024 12:55 PM EST Barak Benjamin MD LAB BLOOD ORDERABLES Berenice l Result [facility] [address] [place] [address], documented in this encounter Visit Diagnoses Diagnosis Pseudomonal bacteremia- Primary Bacteremia Alex catheter in place Other postprocedural status Urinary tract infection associated with indwelling urethral catheter, initial encounter Hx of ascites Anasarca Edema Personal history of portal hypertension- Primary Personal history of other diseases of circulatory system Esophageal varices without bleeding, unspecified esophageal varices type (CMS/HCC) Liver cirrhosis secondary to CASTANEDA (nonalcoholic steatohepatitis) (CMS/HCC) documented in this encounter Admitting Diagnoses Diagnosis Pseudomonal bacteremia documented in this encounter Administered Medications Inactive Administered Medications - up to 3 most recent administrations Medication Order MAR Action Action Date Dose Rate Site acetaminophen (TYLENOL) tablet 650 mg 650 mg, oral, Every 8 hours PRN, mild pain, fever - temperature GREATER than 38 C (100.4 F), Starting on Fri06/13/24 at 1403 apixaban (ELIQUIS) tablet 5 mg [...] intravenous, As needed, line care, Starting on Fri06/13/24 at 1358 sodium chloride 0.9 % infusion [...] may reflect changes made after this encounter. apixaban (ELIQUIS) 5 mg tablet Take 1 tablet (5 mg total) by mouth 2 (two) times a day. oxyBUTYnin XL (DITROPAN-XL) 5 mg 24 hr tablet Take 1 tablet (5 mg total) by mouth 1 (one) time each day. 06/03/2024 tamsulosin (FLOMAX) 0.4 mg 24 hr capsule Take 1 capsule (0.4 mg total) by mouth 1 (one) time each day. oxyCODONE (ROXICODONE) 10 mg immediate release tablet Take 1 tablet (10 mg total) by mouth every 4 (four) hours if needed for severe pain. 07/06/2024 furosemide (LASIX) 40 mg tablet Take 1 [...] oral, Nightly, First dose on 06/13/24 at 2099 2053 (Given - Provider: Sisi Barber RN) 2131 (Given - Provider: Sisi Barber RN) cefepime (MAXIPIME) 2 g in sterile water 20 mL IV syringe 2 g, intravenous, at 240 mL/hr, Administer over 5 Minutes, Every 8 hours, First dose on Fri06/13/24 at 2000, For 7 days, Indication: Bacteremia 0441 (Given - Provider: Patricia Hayes, VIVIAN)1219 (Given - Provider: Maria G Mccarty, VIVIAN)2053 (Given - Provider: Sisi Barber RN) 0536 (Given - Provider: Sisi Barber RN - Comment: q8; given @2099)1307 (Given [...] RN) 1721 (Given - Provider: Ruchi Pedro, VIVIAN) [...] - Provider: Saskia George RN - Comment: darius reyez) spironolactone (ALDACTONE) tablet 150 mg 150 mg, [...] Ruchi Pedro RN)1308 (Given - Provider: Ruchi Pedro RN)2133 (Given - Provider: Sisi Barber, VIVIAN) 0515 (Given - Provider: Sisi Barber, RN)1300 (Given - Provider: Saskia George RN) sodium chloride 0.9 % flush 10 mL(Linked Group 1) 10 mL, intravenous, As needed, line care, Starting on 06/13/24 at 1358 zolpidem (AMBIEN) tablet 10 mg 10 mg, oral, Nightly PRN, sleep, Starting on 06/13/24 at 1700 2056 (Given - Provider: Sisi Barber RN) 2140 (Given - Provider: Sisi Barber RN - Comment: mis torn unable to [...] 06/16/2024 documented in this encounter Care Teams Door Repairer Bus Relationship Specialty Start Date End Date Dalia Harmon PA [address] [place] [address], [address] [place] [address] PCP - General 05/10/24 documented as of this encounter
--- OUTSIDE RECORDS SUMMARY | 2024-07-14 09:34 | XMS_ITS | Encounter Summary ---
Author Organization [facility] Address [address] [place] [address] Care Team Providers Care Mill Set Up Name Role Phone Dalia Harmon Primary Care Provider Encounter Details Date Type Department Care Team (Late st Contact Info) Description 06/18/2024 Lab Requisition [facility] - Main Lab [address] [facility] [place] [id number] Gerry Barksdale [address] [facility] [phone] [place] [address] Sepsis, unspecified organism (CMS/HCC) Social [...] 8:30 AM EDT Office Visit Gastroenterology - [place] [address] [facility] [address] [facility] [address] [place] [id number] Han Sloan DO [address] [place] [address] documented as of this encounter Visit Diagnoses Diagnosis Sepsis, unspecified organism (CMS/[facility]) documented in this encounter Care Teams Mill Set Up Relationship Specialty Start Date End Date Dalia Harmon PA [address] [place] [address], [address] [place] [address] PCP - General 05/10/24 documented as of this encounter
--- OUTSIDE RECORDS SUMMARY | 2024-07-14 09:34 | XMS_ITS | Encounter Summary ---
Author Organization [facility] Address [address] [place] [address] Care Team Providers Care Sba Underwriter Name Role Phone Dalia Harmon Primary Care Provider [phone] Reason for Visit * Reason Comments Cirrhosis Encounter Details Date Type Department Care Team (Late st Contact Info) Description 06/24/2024 11:20 AM EST Office Visit Gastroenterology - [place] [address] [place] [phone] Han Sloan DO [address] [place] [address] Cirrhosis of liver with ascites, unspecified hepatic [...] 64-year-old male who is following up at [facility] for management of ascites. Please refer [...] COLONOSCOPY N/A PROCEDURE: HISTORICAL COLONOSCOPY ESOPHAGOGASTRODUODENOSCOPY PROCEDURE: HI ESOPHAGOGASTRODUODENOSCOPY TRANSORAL DIAGNOSTIC OTHER SURGICAL HISTORY Right PROCEDURE: HI STAB PHLEBT VARICOSE VEINS 1 XTR > [...] and Internal Medicine Gastroenterology and Hepatology Practice [facility] [email or web address] [phone] [place] [address] [email or web address] cc: No ref. provider found, GIORGI Hummel documented in this encounter Plan of Treatment Upcoming Encounters Date Type Department Care Team (Late st Contact Info) Description 08/26/2024 8:30 AM EDT Office Visit Gastroenterology - [place] [address] [place] [address] Han Sloan DO [address] [place] [address] documented as of this encounter Visit Diagnoses Diagnosis Cirrhosis of liver with ascites, unspecified hepatic cirrhosis type (CMS/HCC)- Primary Other ascites Deep vein thrombosis of portal vein Portal vein thrombosis documented in this encounter Care Teams Sba Underwriter Relationship Specialty Start Date End Date Dalia Harmon PA [address] [place] [address], [address] [place] [address] PCP - General 05/10/24 documented as of this encounter
--- OUTSIDE RECORDS SUMMARY | 2024-07-14 09:34 | XMS_ITS | Encounter Summary ---
Author Organization [facility] Address [address] [place] [address] Care Team Providers Care Physician Practice Market Manager Name Role Phone Dalia Harmon Primary Care Provider [phone] Encounter Details Date Type Department Care Team (Late st Contact Info) Description 05/26/2024 Lab Requisition [facility] - Main Lab [address] [facility] [place] [phone] Gerry Barksdale [address] [facility] [address] [place] [address] Weakness; Urinary tract infection, site not specified [...] 8:30 AM EDT Office Visit Gastroenterology - [place] [address] [place] [address] [place] [address] documented as of this encounter Procedures Procedure [...] Vitamin B12 (05/26/2024 6:59 AM EST) Pathologist [facility] Vitamin B-12 1,309(H) 250 - 900 pcg/mL LAB CHEMISTRY METHOD 05/26/2024 1:39 PM EST [facility] Blood Venous blood specimen / Unknown Venipuncture / Unknown 05/26/2024 6:59 AM EST 05/26/2024 10:29 AM EST us Gerry Barksdale LAB BLOOD ORDERABLES Final Resul t [facility] [address] [place] [address], * Folate (05/26/2024 6:59 AM EST) Pathologist [facility] Folate 4.3 2.8 - 17.0 ng/ml LAB CHEMISTRY METHOD 05/26/2024 1:39 PM EST [facility] Blood Venous blood specimen / Unknown Venipuncture / Unknown 05/26/2024 6:59 AM EST 05/26/2024 10:29 AM EST [facility] LAB BLOOD ORDERABLES Final Resul t Performing Organization Address [facility] Co de Phone Number [facility] [address] [place] [address], [place] [phone] * (ABNORMAL) Thyroid stimulating hormone (05/26/2024 6:59 AM EST) TSH 5.20(H) 0.40 - 4.00 mcIU/mL LAB CHEMISTRY METHOD 05/26/2024 1:24 PM [facility] Blood Venous blood specimen / Unknown Venipuncture / Unknown 05/26/2024 6:59 AM EST 05/26/2024 10:29 AM EST [facility] LAB BLOOD ORDERABLES Final Resul t Performing Organization Address [facility] de Phone Number [facility] [address] [place] [address], [place] [phone] * (ABNORMAL) Comprehensive metabolic panel (05/26/2024 6:59 AM EST) Sodium 133 133 - 145 mmol/L LAB CHEMISTRY METHOD 05/26/2024 1:16 PM [facility] Potassium 3.6 3.5 - 5.5 mmol/L LAB CHEMISTRY METHOD 05/26/2024 1:16 PM [facility] Chloride 95(L) 96 - 110 mmol/L LAB CHEMISTRY METHOD 05/26/2024 1:16 PM [facility] CO2 31 21 - 32 mmol/L LAB CHEMISTRY METHOD 05/26/2024 1:16 PM [facility] Anion Gap 7 3 - 11 LAB CHEMISTRY METHOD 05/26/2024 1:16 PM [facility] Glucose 116(H) 70 - 100 mg/dL LAB CHEMISTRY METHOD 05/26/2024 1:16 PM [facility] BUN 15 5 - 25 mg/dL LAB CHEMISTRY METHOD 05/26/2024 1:16 PM [facility] Creatinine 0.52(L) 0.70 - 1.30 mg/dL LAB CHEMISTRY METHOD 05/26/2024 1:16 PM [facility] eGFR 111 >=60 mL/min/1. 73m2 LAB CHEMISTRY METHOD 05/26/2024 1:16 PM [facility] Comment:Calculation based on the??Chronic Kidney Disease Epidemiology Collaboration (CKD-EPI) equation refit??without adjustment for race. BUN/Creatinine Ratio 28.8 LAB CHEMISTRY METHOD 05/26/2024 1:16 PM [facility] Calcium 8.2(L) 8.5 - 10.5 mg/dL LAB CHEMISTRY METHOD 05/26/2024 1:16 PM [facility] AST (SGOT) 27 10 - 42 unit/L LAB CHEMISTRY METHOD 05/26/2024 1:16 PM [facility] ALT (SGPT) 20 10 - 60 unit/L LAB CHEMISTRY METHOD 05/26/2024 1:16 PM [facility] Alkaline Phosphatase 139(H) 42 - 121 unit/L LAB CHEMISTRY METHOD 05/26/2024 1:16 PM [facility] Total Protein 6.0 6.0 - 8.0 g/dL LAB CHEMISTRY METHOD 05/26/2024 1:16 PM [facility] Albumin 2.3(L) 3.2 - 5.0 g/dL LAB CHEMISTRY METHOD 05/26/2024 1:16 PM [facility] Total Bilirubin 3.2(H) 0.0 - 1.4 mg/dL LAB CHEMISTRY METHOD 05/26/2024 1:16 PM [facility] Blood Venous blood specimen / Unknown Venipuncture / Unknown 05/26/2024 6:59 AM EST 05/26/2024 10:29 AM EST Gerry Barksdale LAB BLOOD ORDERABLES Final Resul t [facility] [address] [place] [address], * (ABNORMAL) Complete blood count (05/26/2024 6:59 AM EST) [facility] WBC 7.6 4.8 - 10.8 K/mcL LAB HEMETOLOGY METHOD 05/26/2024 11:18 AM [facility] RBC 3.50(L) 4.50 - 5.50 M/mcL LAB HEMETOLOGY METHOD 05/26/2024 11:18 AM [facility] Hemoglobin 12.2(L) 13.5 - 17.5 g/dL LAB HEMETOLOGY METHOD 05/26/2024 11:18 AM [facility] Hematocrit 35.5(L) 42.0 - 54.0 % LAB HEMETOLOGY METHOD 05/26/2024 11:18 AM [facility] MCV 100.6(H) 79.0 - 98.0 FL LAB HEMETOLOGY METHOD 05/26/2024 11:18 AM [facility] MCH 34.6(H) 27.0 - 32.0 pcg LAB HEMETOLOGY METHOD 05/26/2024 11:18 AM [facility] MCHC 34.4 32.0 - 37.0 g/dL LAB HEMETOLOGY METHOD 05/26/2024 11:18 AM [facility] RDW 15.9(H) 11.0 - 15.0 % LAB HEMETOLOGY METHOD 05/26/2024 11:18 AM [facility] Platelets 139 130 - 400 K/mcL LAB HEMETOLOGY METHOD 05/26/2024 11:18 AM EST [facility] MPV 10.8 7.0 - 11.0 FL LAB HEMETOLOGY METHOD 05/26/2024 11:18 AM EST [facility] NRBC 0.0 <1.0 % LAB HEMETOLOGY METHOD 05/26/2024 11:18 AM EST [facility] NRBC Absolute 0.00 <0.10 K/mcL LAB HEMETOLOGY METHOD 05/26/2024 11:18 AM EST [facility] Blood Venous blood specimen / Unknown Venipuncture / Unknown 05/26/2024 6:59 AM EST 05/26/2024 10:29 AM EST Gerry Barksdale LAB BLOOD ORDERABLES Final Resul t [facility] [address] [place] [address], documented in this encounter Visit Diagnoses Diagnosis Weakness Other malaise and fatigue Urinary tract infection, site not specified documented in this encounter Care Teams Physician Practice Market Manager Relationship Specialty Start Date End Date Dalia Harmon PA [address] [place] [address], [address] [place] [address] PCP - General 05/10/24 documented as of this encounter
--- OUTSIDE RECORDS SUMMARY | 2024-07-14 09:34 | XMS_ITS | Encounter Summary ---
Author Organization [facility] Address [address] [place] [address] Care Team Providers Care District Attorney Name Role Phone Dalia Harmon Primary Care Provider [phone] Encounter Details Date Type Department Care Team (Late st Contact Info) Description 03/04/2024 Lab Requisition [facility] - Main Lab [address] [facility] [place] [address] Gerry Barksdale MD [address] [address] Vitamin D deficiency, unspecified; Type 2 diabetes [...] 8:30 AM EDT Office Visit Gastroenterology - [place] [address] [place] [phone] Han Sloan DO [address] [place] [address] documented as of this encounter Procedures Procedure [...] LAB CHEMISTRY METHOD 03/04/2024 12:40 PM EST [facility] Blood Venous blood specimen / Unknown Venipuncture / Unknown 03/04/2024 9:21 AM EST 03/04/2024 11:40 AM EST us Gerry Barksdale MD LAB BLOOD ORDERABLES Final Re sult Performing Organization Address [facility]/ZIP Co de Phone Number [facility] [address] [place] [address], [place] [phone] * Hemoglobin A1c (03/04/2024 9:21 AM EST) Hemoglobin A1C 4.7 <6.5 % LAB CHEMISTRY METHOD 03/04/2024 2:46 PM EST [facility] Mean Bld Glu Estim. 88 mg/dL LAB CHEMISTRY METHOD 03/04/2024 2:46 PM EST [facility] Blood Venous blood specimen / Unknown Venipuncture / Unknown 03/04/2024 9:21 AM EST 03/04/2024 11:40 AM EST us Gerry Barksdale MD LAB BLOOD ORDERABLES Final Re sult Performing Organization Address [facility] Co de Phone Number [facility] [address] [place] [address], [place] [phone] * (ABNORMAL) Vitamin B12 (03/04/2024 9:21 AM EST) Pathologist [facility] Vitamin B-12 923(H) 250 - 900 pcg/mL LAB CHEMISTRY METHOD 03/04/2024 1:03 PM EST [facility] Blood Venous blood specimen / Unknown Venipuncture / Unknown 03/04/2024 9:21 AM EST 03/04/2024 11:40 AM EST us Gerry Barksdale MD LAB BLOOD ORDERABLES Final Re sult Performing Organization Address City/[facility]/ZIP Co de Phone Number [facility] [address] [place] [address], [place] [phone] * Folate (03/04/2024 9:21 AM EST) Pathologist [facility] Folate 11.0 2.8 - 17.0 ng/ml LAB CHEMISTRY METHOD 03/04/2024 1:03 PM [facility] Blood Venous blood specimen / Unknown Venipuncture / Unknown 03/04/2024 9:21 AM EST 03/04/2024 11:40 AM EST Gerry Barksdale MD LAB BLOOD ORDERABLES Final Re sult [facility] [address] [place] [address], [place] [phone] * Thyroid stimulating hormone (03/04/2024 9:21 AM EST) [facility] TSH 3.12 0.40 - 4.00 mcIU/mL LAB CHEMISTRY METHOD 03/04/2024 12:40 PM [facility] Blood Venous blood specimen / Unknown Venipuncture / Unknown 03/04/2024 9:21 AM EST 03/04/2024 11:40 AM EST Gerry Barksdale MD LAB BLOOD ORDERABLES Final Re sult [facility] [address] [place] [address], [place] [phone] * (ABNORMAL) Comprehensive metabolic panel (03/04/2024 9:21 AM EST) [facility] Sodium 137 133 - 145 mmol/L LAB CHEMISTRY METHOD 03/04/2024 1:03 PM [facility] Potassium 4.2 3.5 [...] MD LAB BLOOD ORDERABLES Final Re sult [facility] [address] [place] [address], * (ABNORMAL) Complete blood count (03/04/2024 9:21 [...] pcg LAB HEMETOLOGY METHOD 03/04/2024 11:58 AM [facility] MCHC 33.4 32.0 - 37.0 g/dL LAB HEMETOLOGY METHOD 03/04/2024 11:58 AM [facility] RDW 14.3 11.0 - 15.0 % LAB HEMETOLOGY METHOD 03/04/2024 11:58 AM EST [facility] Platelets 101(L) 130 - 400 K/mcL LAB HEMETOLOGY METHOD 03/04/2024 11:58 AM EST [facility] MPV 11.0 7.0 - 11.0 FL LAB HEMETOLOGY METHOD 03/04/2024 11:58 AM EST [facility] NRBC 0.0 <1.0 % LAB HEMETOLOGY METHOD 03/04/2024 11:58 AM EST [facility] NRBC Absolute 0.00 <0.10 K/mcL LAB HEMETOLOGY METHOD 03/04/2024 11:58 AM EST [facility] Blood Venous blood specimen / Unknown Venipuncture / Unknown 03/04/2024 9:21 AM EST 03/04/2024 11:40 AM EST us Gerry Barksdale MD LAB BLOOD ORDERABLES Final Re sult [facility] [address] [place] [address], documented in this encounter Visit Diagnoses Diagnosis Vitamin D deficiency, unspecified Type 2 diabetes mellitus without complications Essential (primary) hypertension Unspecified essential hypertension documented in this encounter Care Teams District Attorney Relationship Specialty Start Date End Date Dalia Harmon PA [address] [place] [address], [address] [place] [address] PCP - General 05/10/24 documented as of this encounter
--- OUTSIDE RECORDS SUMMARY | 2024-07-14 09:34 | XMS_ITS | Encounter Summary ---
Author Organization [facility] Address [address] [place] [address] Care Team Providers Care Federal Judge Name Role Phone Dalia Harmon Primary Care Provider [phone] Reason for Visit * Reason Onset Date Comments Appointment 06/29/2024 Upcoming Echo Encounter Details Date Type Department Care Team (Late st Contact Info) Description 06/29/2024 Telephone Gastroenterology - [place] [address] [place] [phone] Han Sloan DO [address] [place], [place] [phone] Appointment (Upcoming Echo) Social History Tobacco Use [...] 06/14/2024 1:37 PM Yuni Oneill RN * Are you blind or do [...] 8:30 AM EDT Office Visit Gastroenterology - [place] [address] [place] [phone] Han Sloan DO [address] [place] [address] documented as of this encounter Visit Diagnoses Not on filedocumented in this encounter Care Teams Federal Judge Relationship Specialty Start Date End Date Dalia Harmon PA [address] [facility], [address] [place] [address] PCP - General 05/10/24 documented as of this encounter
--- OUTSIDE RECORDS SUMMARY | 2024-07-14 09:34 | XMS_ITS | Encounter Summary ---
Author Organization [facility] Address [address] [place] [address] Care Team Providers Care Financial Management Consultant Name Role Phone Dalia Harmon Primary Care Provider [phone] Encounter Details Date Type Department Care Team (Late Contact Info) Description 03/05/2024 Lab Requisition [facility] - Main Lab [address] [facility] [place] [address] Gerry Barksdale MD [address] [facility] 1 [place] [address] Essential (primary) hypertension Social History Tobacco Use [...] Department Care Team (Late Contact Info) Description 08/26/2024 8:30 AM EDT Office Visit Gastroenterology - [place] [address] [facility] [address] [place] [address] Han Sloan DO [address] [place] [address] documented as of this encounter Procedures Procedure Name Priority Date/Time Associated Diagnosis Comments COMPLETE BLOOD COUNT Routine 03/08/2024 9:48 AM EST Essential (primary) hypertension BASIC METABOLIC PANEL Routine 03/08/2024 9:48 AM EST Essential (primary) hypertension documented in this encounter Results * (ABNORMAL) Basic metabolic panel (03/08/2024 9:48 AM EST) Sodium 138 133 - 145 mmol/L LAB CHEMISTRY METHOD 03/08/2024 1:23 PM [facility] Potassium 4.2 3.5 - 5.5 mmol/L LAB CHEMISTRY METHOD 03/08/2024 1:23 PM [facility] Chloride 102 96 - 110 mmol/L LAB CHEMISTRY METHOD 03/08/2024 1:23 PM [facility] CO2 26 21 - 32 mmol/L LAB CHEMISTRY METHOD 03/08/2024 1:23 PM [facility] Anion Gap 10 3 - 11 LAB CHEMISTRY METHOD 03/08/2024 1:23 PM [facility] Glucose 186(H) 70 - 100 mg/dL LAB CHEMISTRY METHOD 03/08/2024 1:23 PM [facility] BUN 14 5 - 25 mg/dL LAB CHEMISTRY METHOD 03/08/2024 1:23 PM [facility] Creatinine 0.76 0.70 - 1.30 mg/dL LAB CHEMISTRY METHOD 03/08/2024 1:23 PM [facility] eGFR 99 >=60 mL/min/1. 73m2 LAB CHEMISTRY METHOD 03/08/2024 1:23 PM [facility] Comment:Calculation based on the??Chronic Kidney Disease Epidemiology Collaboration (CKD-EPI) equation refit??without adjustment for race. BUN/Creatinine Ratio .4 LAB CHEMISTRY METHOD 03/08/2024 1:23 PM [facility] Calcium 8.7 8.5 - 10.5 mg/dL LAB CHEMISTRY METHOD 03/08/2024 1:23 PM [facility] Blood Venous blood specimen / Unknown Venipuncture / Unknown 03/08/2024 9:48 AM EST 03/08/2024 11:22 AM EST us Gerry Barksdale MD LAB BLOOD ORDERABLES Final Re sult [facility] [address] [place] [address], * (ABNORMAL) Complete blood count (03/08/2024 9:48 AM EST) WBC 4.6(L) 4.8 - 10.8 K/mcL LAB HEMETOLOGY METHOD 03/08/2024 12:55 PM [facility] RBC 4.20(L) 4.50 - 5.50 M/mcL LAB HEMETOLOGY METHOD 03/08/2024 12:55 PM [facility] Hemoglobin 14.5 13.5 - 17.5 g/dL LAB HEMETOLOGY METHOD 03/08/2024 12:55 PM [facility] Hematocrit 44.1 42.0 - 54.0 % LAB HEMETOLOGY METHOD 03/08/2024 12:55 PM [facility] MCV 105.3(H) 79.0 - 98.0 FL LAB HEMETOLOGY METHOD 03/08/2024 12:55 PM [facility] MCH 34.6(H) 27.0 - 32.0 pcg LAB HEMETOLOGY METHOD 03/08/2024 12:55 PM [facility] MCHC 32.9 32.0 - 37.0 g/dL LAB HEMETOLOGY METHOD 03/08/2024 12:55 PM EST [facility] RDW 14.7 11.0 - 15.0 % LAB HEMETOLOGY METHOD 03/08/2024 12:55 PM EST [facility] Platelets 102(L) 130 - 400 K/mcL LAB HEMETOLOGY METHOD 03/08/2024 12:55 PM [facility] MPV 11.3(H) 7.0 - 11.0 FL LAB HEMETOLOGY METHOD 03/08/2024 12:55 PM EST [facility] NRBC 0.0 <1.0 % LAB HEMETOLOGY METHOD 03/08/2024 12:55 PM EST [facility] NRBC Absolute 0.00 <0.10 K/mcL LAB HEMETOLOGY METHOD 03/08/2024 12:55 PM [facility] Blood Venous blood specimen / Unknown Venipuncture / Unknown 03/08/2024 9:48 AM EST 03/08/2024 11:22 AM EST us Gerry Barksdale MD LAB BLOOD ORDERABLES Final Re sult [facility] [address] [place] [address], documented in this encounter Visit Diagnoses Diagnosis Essential (primary) hypertension Unspecified essential hypertension documented in this encounter Care Teams Financial Management Consultant Relationship Specialty Start Date End Date Dalia Harmon PA [address] [facility], [address] [place] [address] PCP - General 05/10/24 documented as of this encounter
--- OUTSIDE RECORDS SUMMARY | 2024-07-14 09:35 | XMS_ITS | Encounter Summary ---
Author Organization [facility] Address [address] [place] [address] Care Team Providers Care Art Museum Aide Name Role Phone Dalia Harmon Primary Care Provider [phone] Encounter Details Date Type Department Care Team (Late st Contact Info) Description 07/05/2024 Telephone Gastroenterology - [place] [address] [place] [phone] Han Sloan DO [address] [place] [address] Social History Tobacco Use Types Packs/Day Years [...] Yuni Oneill RN documented in this encounter Ordered Prescriptions Prescription Sig Dispense Quantity Refills Last Filled Start Date End Date furosemide (LASIX) 40 mg tablet Take 1 tablet (40 mg total) by mouth 1 (one) time each day in the morning. 30 each 1 07/05/2024 07/07/2024 documented in this encounter Progress Notes * Larissa Ochoa - 07/05/2024 10:14 AM EDT Patient calling, was recently seen in hospital and placed on Lasix 40mg in the morning per Dr. Sloan's recommendation. States he is due for refill but pharmacy won't honor refills on prescription sinceit was sent by hospital provider. Patient asking for Dr. Sloan to send the prescription over for him.(Also takes 20mg in afternoon, but only needs prescription for morning 40mg dose). [email or web address]. Please advise. documented in this encounter Plan of Treatment Upcoming Encounters Date Type Department Care Team (Late st Contact Info) Description 08/26/2024 8:30 AM EDT Office Visit Gastroenterology - [place] [address] [facility] [address] [place] [address] Han Sloan DO [address] [facility] [address] [place] [address] documented as of this encounter Visit Diagnoses Not on filedocumented in this encounter Discontinued Medications Medication Sig Discontinue Reason Start Date End Da te furosemide (LASIX) 40 mg tablet Take 1 tablet (40 mg total) by mouth 1 (one) time each day in the morning. Reorder 07/05/2024 documented as of this encounter Historical Medications * This list may reflect changes made after this encounter. furosemide (LASIX) 40 mg tablet Take 1 tablet (40 mg total) by mouth 1 (one) time each day in the morning. 07/05/2024 added in this encounter Care Teams Art Museum Aide Relationship Specialty Start Date End Date Dalia Harmon PA [address] [place] [address], [address] [place] [address] PCP - General 05/10/24 documented as of this encounter
--- OUTSIDE RECORDS SUMMARY | 2024-07-14 09:35 | XMS_ITS | Encounter Summary ---
Author Organization [facility] Address [address] [place] [address] Care Team Providers Care Mailroom Courier Name Role Phone Dalia Harmon Primary Care Provider [phone] Reason for Visit * Auth/Cert (Routine) Specialty Diagnoses / Procedures Referred By Contalonso t Referred To Contact Diagnoses Personal history of portal hypertension Procedures [facility] IP/OBS CARE ADMIT/DISCHARGE SAME DATE MODERATE LEVEL Rosaura Iglesias MD [address] [place] [address] Phone: tel: fax: [facility] Intermediate Care Unit [address] [place] [address] Phone: tel: Referral ID Status Reason Start Date Expiration Date Visits Re quested Visits Authorized [id number] 1 1 Encounter Details Date Type Department Care Team (Late st Contact Info) Description 07/06/2024 2:08 PM EDT Anesthesia Event [facility] Interventional Radiology [address] [place] [address] Paul Alfaro DO [address] [place] [id number] Anesthesia Record Procedure Summary Procedure Name Responsible Anesthesiologist Anesthesia Start Time Anesthesia Stop Time IR INSERT HEPATIC SHUNT TIPS Paul Alfaro DO 07/06/24 1408 07/06/24 1734 Events Date Time Event Comment 07/06/2024 1322 1408 An Start 1408 An Start Data The patient wa s reevaluated immediately before moderate or deep sedation use and before anesthesia induction. 1423 An Induction 1423 An Intubation 1449 Anesthesia Ready 1512 Tyler Breath holding PSR 1715 An Extubation 1716 an stop data 1733 Handoff to RN I completed my handoff to the receiving nurse during which we: 1. Identified the patient 2. Identified the responsible provider 3. Reviewed the pertinent medical history 4. Discussed the surgical course 5. Reviewed intra-op anesthesia management and issues during anesthesia 6. Set expectations for post-procedure period 7. Allowed opportunity for questions and acknowledgement of understanding. 1734 An Stop Meds Name Total fentaNYL (SUBLIMAZE) injection 200 mcg propofol (DIPRIVAN) injection 10 mg/mL 2 20 mg rocuronium 130 mg ondansetron 2 mg/mL 4 mg dexamethasone (DECADRON) injection 4 mg/ mL 4 mg lidocaine PF (XYLOCAINE-MPF) local injec tion 2% 50 mg ceFAZolin (ANCEF) IV syringe 2 g/20 mL 3 g sugammadex (BRIDION) injection 100 mg/mL 200 mg lactated Ringer's infusion 400 mL * Agents No agents on file. * Blood No blood administrations on file. Lines, Drains, and Airways Type Details Placement Removal Wound Dermatitis (fungal); 03/01/24 (fungal rash); 1215; Y; Yes; Groin; Right, Other (Comment) (groin); deep red discoloration involving groin and abdominal fold with excoriation at the crease 03/01/24 1215 by Helen Saxena RN Wound 05/20/24; 1523; Y; Y es; Leg; Left, Posterior, Proximal, Upper 05/20/24 1523 by Lucinda Potter RN Wound Pressure inj; ; 1530; Y; Yes; Leg; Distal, Left, Posterior, Upper; pressure wound 05/20/24 1530 by Sangita Szymanski RN Wound Other (lymphedema wi th cellulitis); 05/20/24; 1530; Y; Yes; Leg; Left, Lower; weeping blister 05/20/24 1530 by Sangita Szymanski RN Wound Dermatitis; 05/21/24 ; 1128; Y; Yes; Groin; Left; multiple bleeding open fissures in groin 05/21/24 1128 by Helen Saxena RN Wound Dermatitis; 05/21/24 ; 1132; Y; Scrotum; Anterior 05/21/24 1132 by Helen Saxena RN Urethral Catheter Placement Date: 05/23 05/15; Placement Time: 2308; Size: 24 Fr.; Balloon Size: 10 mL; Urine Returned: Yes (125); Removal Reason: Other (Comment) (hematuria/pain in recent new catheter) 06/11/24 2308 by Boom Correa RN Arterial Line Placement Date: 06/19 12/13; Placement Time: 1440 (created via procedure documentation) 07/06/24 1440 by Yovanny Mendez CRNA Peripheral IV Placement Date: 06/19 12/13; Placement Time: 1458; Catheter Size: 20 G; Orientation: Anterior, Distal, Right; Location: Forearm; Insertion Attempts: 2; Patient Tolerance: Tolerated well; Removal Date: 07/07/24; Removal Time: 1209 07/06/24 1458 by Rl Farmer RN 07/07/24 1209 by Karina Gasca RN Arterial Line Placement Date: 06/19 12/13; Placement Time: 1459; Orientation: Left; Location: Radial; Inserted by: dr mayo; Insertion Attempts: 2; Securement: Adhesive closure strips; Removal Date: 07/06/24; Removal Time: 1800 07/06/24 1459 by Rl Farmer RN 07/06/24 1800 by Pedro Murray RN Peripheral IV Placement Date: 06/19 12/13; Placement Time: 1459; Catheter Size: 20 G; Orientation: Anterior, Left, Proximal; Location: Forearm; Inserted by: DELISA Gonzalez; Removal Date: 07/07/24; Removal Time: 1209 07/06/24 1459 by Rl Farmer RN 07/07/24 1209 by Karina Gasca RN ETT Placement Date: 06/19 12/13; Placement Time: 1501 (created via procedure documentation); Mask Ventilation: 0; Technique: Direct laryngoscopy; Type: ETT; Cuffed: Yes; Blade Size: 3; Location: Oral; Insertion Attempts: 1; Placement Verification: Auscultation, Capnometry; Removal Date: 07/06/24; Removal Time: 17107/06/24 1501 by Yovanny Mendez CRNA 07/06/24 1715 by Yovanny Mendez CRNA Venous Sheath 07/06/24; 1506; 10 F r.; Right; Internal Jugular; CHILL; Injectable; Alcohol, Chlorhexidine; 07/06/24; 1710; 5 min(s); 17107/06/24 1506 by Rl Farmer RN 07/06/24 1710 by Rl Farmer RN documented in this encounter Social History Tobacco Use Types Packs/Day Years [...] documented in this encounter Progress Notes * Yovanny Mendez CRNA - 07/06/2024 5:34 PM EDT Patient: Jonny Reed Procedure Summary Date: 07/06/24 Room / Location: [facility] Interventional Radiology Anesthesia Start: 140 Anesthesia Stop: 1733 Procedure: IR INSERT HEPATIC SHUNT TIPS Diagnosis: Hx of ascites Personal history of portal hypertension (TIPS PROCEDURE) Scheduled Providers: Yovanny Mendez CRNA; Malini Mayo MD Responsible Provider: Paul Alfaro DO Anesthesia Type: general ASA Status: 3 Anesthesia Plan: general Visit Vitals BP (!) 140/53 Pulse 84 Resp 16 Ht 1.65 m (64.96 ) Wt 145 kg (320 lb) SpO2 98% BMI 53.31 kg/m?? Smoking Status Former BSA 2.41 m?? No data recorded Anesthesia Post Evaluation Patient location during evaluation: PACU Patient participation: complete - patient participated Level of consciousness: awake and alert Pain score: 0 Pain management: adequate Airway patency: patent Anesthetic complications: no Cardiovascular status: acceptable Respiratory status: acceptable Hydration status: acceptable Nausea: No Vomiting: No There were no known notable events for this encounter. * Yovanny Mendez CRNA - 07/06/2024 3:00 PM EDTAssociated Order(s): Intubation General Information and Staff Patient location during procedure: OR Resident/NEIGHBORHOOD CONSERVATION OFFICER: Yovanny Mendez CRNA Performed: resident/NEIGHBORHOOD CONSERVATION OFFICER/CAA Performed by: Yovanny Mendez CRNA Authorized by: Juan Antonio Hutchinson MD Intubation Airway not difficult Urgency: elective Final [...] Mask difficulty assessment: 0 - not attempted * Yovanny Mendez CRNA - 07/06/2024 2:49 PM EDTAssociated Order(s): Arterial Line Arterial Line Performed by: Yovanny Mendez CRNA Authorized by: Malini Mayo MD Consent: Verbal consent obtained. Written consent obtained. Risks [...] Time: 07/06/2024 2:49 PM Staffing Anesthesiologist: Malini Mayo MD * Malini Mayo MD - 07/06/2024 1:18 PM EDT 64 y.o. male scheduled for [] Ht Readings from Last 1 Encounters: 06/13/24 1.651 m (63 ) Wt Readings from Last 1 Encounters: 06/13/24 147 kg (323 lb) There is no height or weight on file to calculate BMI. Past Medical History: Diagnosis Date Anxiety 04/13/2018 [...] VARICOSE VEINS 1 XTR > 20 INCS Denies anesthesia complications Allergies Allergen Reactions Codeine Other Reaction(s): Unknown body region Nystatin Cream and Powder Semaglutide Unknown Current Outpatient Medications on File Prior to Encounter Medication Sig Dispense Refill aspirin 81 mg EC tablet Take 1 tablet (81 mg total) by mouth 1 (one) time each day. albuterol 2.5 mg/0.5 mL solution for nebulization nebulizer solution Take 0.5 mL (2.5 mg total) by nebulization every 6 (six) hours if needed for shortness of breath. apixaban (ELIQUIS) 5 mg tablet Take 1 tablet (5 mg total) by mouth 2 (two) times a day. cholecalciferol (VITAMIN D-3) 50 mcg (2,000 unit) tablet 1 tablet (2,000 Units total). furosemide (LASIX) 20 mg tablet Take 2 tablets in the morning at 8 AM and 1 tablet in afternoon at 3 PM (Patient taking differently: Take 1 tablet (20 mg total) by mouth 1 (one) time each day. Take 1tablet in afternoon at 3 PM) 90 each 0 furosemide (LASIX) 40 mg tablet Take 1 tablet (40 mg total) by mouth 1 (one) time each day in the morning. 30 each 1 naloxone (NARCAN) 4 mg/0.1 mL nasal spray [...] mouth at bedtime as needed. for insomnia [DISCONTINUED] furosemide (LASIX) 40 mg tablet Take 1 tablet (40 mg total) by mouth 1 (one) time each day in the morning. No current facility-administered medications on file prior to encounter. Current In-hospital Medications Social History Tobacco Use Smoking status: Former Current packs/day: 0.00 Types: Cigarettes Quit date: 04/21/2003 Years since quittin.2 Smokeless tobacco: Never Substance Use Topics Alcohol use: No Drug use: Yes Types: Marijuana/Cannabis Is the patient a current smoker (e.g. cigarette, cigar, pip, e-cigarette, or mariajuana)? Yes [] No[] Patient previously instructed to abstain from smoking on the day of procedure? Yes [] No[] Patient smoked on the day of procedure? Yes [] No[] ASPIRE smoking VBR: [] Not interested in quitting [] Interested in quitting- referred to treatment [] Interested in quitting - treatment provided Visit Vitals Smoking Status Former Available cardiac studies reviewed: Transthoracic echocardiogram (TTE) complete with PRN contrast, bubble, strain, and 3D order panel Result Date: 06/15/2024 Narrative: Left ventricle cavity size is normal. Left ventricular systolic function is in the normal range with an ejection fraction of 55-60%. Left ventricle mild concentric hypertrophy. Right ventricle cavity is normal. Right ventricular systolic function is normal. Aortic valve leaflets are mildly thickened. The Sinus of Valsalva is dilated (4.5 cm). US Paracentesis w Image Guidance Result Date: 06/15/2024 Narrative: HISTORY: Large volume ascites. TECHNIQUE: After [...] Aurora Meng Signed Date: 06/15/2024 12:40 ET W orkstation ID: [id number] Transcribed By: Self Edit Transcribed Date: 06/14/2024 11:29 ET Resident/PA/RAIL OPERATOR: Milady Chilel CT Abdomen Pelvis w [...] assessed. No pathologic adenopathy. Urinary bladderdecompressed with Cuello catheter. Generalized lumbar spondylosis. Severe arthritic changes left hipas sequela of osteonecrosis. Moderate degenerative arthritis on the left. Mild anasarca. Additionalsubcutaneous fat stranding and skin thickening of the lower anterior abdominal wall suggesting panniculitis. Small fat containing inguinal hernias. Impression: Impression: Cirrhotic liver with portal hypertension including hyuaoibf-mv-bhtke volumeascites, splenomegaly and varices. No apparent bowel [...] contour and moderate volume of ascites. Splenomegaly. Qlles-qo-jrdufurl size left pleural effusion and trace right [...] recommended in 3 months to assess stability. Sxttf-hi-aepozsvf size left pleural effusion and trace right pleural effusion with mild subjacent atelectasis. Cardiomegaly. Mildly dilated main pulmonary artery indicating pulmonary arterial hypertension. Hepatic cirrhosis with ascites and splenomegaly. Please see CT abdomen/pelvis report for additional details. No evidence for pulmonary artery embolus. This document has been electronically signed by: Hernan Godwin MD on 06/12/2024 06:43:23 EKG Encounter Date: 06/13/24 ECG 12 lead Result Value Ventricular Rate ECG 85 Atrial Rate 85 P-R Interval 126 QRS Duration 130 Q-T Interval 408 QTc 485 P Wave [place] 28 R [place] -36 T [place] 29 ECG Interpretation Normal sinus rhythm Left axis deviation Right bundle branch block Abnormal ECG When compared with ECG of 12-JUN-2024 03:57, No significant change was found Confirmed by MD Felix, Ossian ([id number]) on 06/15/2024 5:37:07 PM *Note: Due to a large number of results and/or encounters for the requested time period, some results have not been displayed. A complete set of results can be found in Results Review. ECHO 06/13/24 TRANSTHORACIC ECHOCARDIOGRAM (TTE) COMPLETE (CONTRAST/BUBBLE/3D PRN) 06/15/2024 06/15/2024 Interpretation Summary Left ventricle cavity size is normal. Left ventricular systolic function is in the normal range with an ejection fraction of 55-60%. Left ventricle mild concentric hypertrophy. Right ventricle cavity is normal. Right ventricular systolic function is normal. Aortic valve leaflets are mildly thickened. The Sinus of Valsalva is dilated (4.5 cm). Signed by: Gerry Sears on 06/15/2024 2:54 PM CATH No results found for this or any previous visit. LABS: Lab Results Component Value Date WBC 4.1 (L) 06/15/2024 HGB 11.9 (L) 06/15/2024 HCT 35.3 (L) 06/15/2024 MCV 102.3 (H) 06/15/2024 PLT 81 (L) 06/15/2024 Lab Results Component Value Date GLUCOSE 115 (H) 06/15/2024 CALCIUM 8.2 (L) 06/15/2024 NA 134 06/15/2024 K 4.2 06/15/2024 CO2 30 06/15/2024 CL 100 06/15/2024 BUN 11 06/15/2024 CREATININE 0.48 (L) 06/15/2024 Lab Results Component Value Date INR 1.8 06/12/2024 INR 1.3 05/22/2024 INR 1.4 05/21/2024 No results found for: PTT Denies cardiac, pulm, neuro, hepatic or renal s/sx. Patient meets ASA guidelines for NPO status. > 4 mets without anginal symptoms. Relevant labs, vitals, imaging, cardiac and pulmonary studies as well as HPI, Meds, Allergies, ROS,PMH, PSH, SH, and FH reviewed. Relevant Problems Cardio (+) Esophageal varices (CMS/HCC) (+) Hypertension (+) Internal hemorrhoids Pulmonary (+) COPD (chronic obstructive pulmonary disease) (CMS/HCC) (+) Obstructive sleep apnea GI (+) Erosive gastritis (+) Liver cirrhosis secondary to CASTANEDA (nonalcoholic steatohepatitis) (CMS/HCC) Other (+) Benign colonic polyp Clinical information reviewed: Allergies Meds Anesthesia Plan ASA 3 Anesthesia Plan: general General Anesthesia Considerations: ETT Anesthesia Risks Discussed dental injury, nausea, pain, sore throat, corneal abrasion, allergic reaction and serious complications Monitoring Considerations arterial line Plan Factors Patient is not a current smoker Induction method: intravenous Anesthetic plan and risks discussed with patient. Use of blood products discussed with patient who. Anesthesia Plan discussed with attending. Anesthesia Evaluation No history of anesthetic complications Airway Mallampati: III Comment: Full chin Dental Comment: Edentulous upper Pulmonary (+) COPD, sleep apnea, decreased breath sounds Cardiovascular (+) hypertension Rhythm: regular Neuro/Psych Mental Status: alert and oriented GI/Hepatic/Renal (+) PUD, liver disease Endo/Other (+) diabetes mellitus Abdominal PONV RISK SCORE: 2 There were no vitals filed for this visit. SpO2 Readings from Last 1 Encounters: 06/24/24 96% WBC Date Value Ref Range Status 06/15/2024 4.1 (L) 4.8 - 10.8 K/mcL Final RBC Date Value Ref Range Status 06/15/2024 3.50 (L) 4.50 - 5.50 M/mcL Final Hemoglobin Date Value Ref Range Status 06/15/2024 11.9 (L) 13.5 - 17.5 g/dL Final Hematocrit Date Value Ref Range Status 06/15/2024 35.3 (L) 42.0 - 54.0 % Final Platelets Date Value Ref Range Status 06/15/2024 81 (L) 130 - 400 K/mcL Final Comment: previously verified by slide MCV Date Value Ref Range Status 06/15/2024 102.3 (H) 79.0 - 98.0 FL Final Allergies Allergen Reactions Codeine Other Reaction(s): Unknown body region Nystatin Cream and Powder Semaglutide Unknown STOP BANG: No data recorded NPO Status: No data recorded documented in this encounter Plan of Treatment Upcoming Encounters Date Type Department Care Team (Late st Contact Info) Description 08/26/2024 8:30 AM EDT Office Visit Gastroenterology - [place] [address] [place] [id number] Han Sloan DO [address] [place] [address] documented as of this encounter Procedures Procedure Name Priority Date/Time Associated Diagnosis Comments TH AN ENDOTRACHEAL(NO CHARGE) Routine 07/06/2024 3:00 PM EDT TH AN ARTERIAL LINE (CHARGE) Routine 07/06/2024 2:49 PM EDT documented in this encounter Results * TH AN ENDOTRACHEAL(NO CHARGE) (07/06/2024 3:00 PM EDT) Narrative Yovanny Mendez CRNA - 07/06/2024 3:00 PM EDT Yovanny Mendez CRNA ? 07/06/2024 ??3:01 PM General Information and Staff Patient location during procedure: OR Resident/NEIGHBORHOOD CONSERVATION OFFICER: Yovanny Mendez CRNA Performed: resident/NEIGHBORHOOD CONSERVATION OFFICER/CAA Performed by: Yovanny Mendez CRNA Authorized by: [...] ARTERIAL LINE (CHARGE) (07/06/2024 2:49 PM EDT) Narrative Yovanny Mendez CRNA - 07/06/2024 2:49 PM EDT Yovanny Mendez CRNA ? 07/06/2024 ??2:52 PM Arterial Line Performed by: Yovanny Mendez CRNA Authorized by: Malini Mayo MD ??Consent: Verbal consent obtained. Written consent [...] Time: 07/06/2024 2:49 PM Staffing Anesthesiologist: Malini Mayo MD Malini Mayo MD ANESTHESIA ORDERABLES Fin al Result documented in this encounter Visit Diagnoses Not on filedocumented in this encounter Administered Medications Inactive Administered Medications - up to 3 most recent administrations Medication Order MAR Action Action Date Dose Rate Site ceFAZolin (ANCEF) 2 gram/20 mL IV syringe intravenous, Administer over 3 Minutes, As needed, Starting on Fri07/06/24 at 1503, Anesthesia Intraprocedure Given 07/06/2024 3:03 PM EDT 3 g dexAMETHasone (DECADRON) injection intravenous, As needed, Starting on Fri07/06/24 at 1445, Anesthesia Intraprocedure Given 07/06/2024 2:45 PM EDT 4 mg fentaNYL (PF) (SUBLIMAZE) injection intravenous, As needed, Starting on Fri07/06/24 at 1423, Anesthesia Intraprocedure Given 07/06/2024 5:11 PM EDT 25 mcg Given 07/06/2024 4:35 PM EDT 25 mcg Given 07/06/2024 3:23 PM EDT 50 mcg lactated Ringer's infusion intravenous, Continuous PRN, Starting on Fri07/06/24 at 1422, Anesthesia Intraprocedure New Bag 07/06/2024 2:22 PM EDT lidocaine (PF) (XYLOCAINE-MPF) 2 % injection injection, As needed, Starting on e 07/06/24 at 1423, Anesthesia Intraprocedure Given 07/06/2024 2:23 PM EDT 5 0 mg ondansetron (PF) (ZOFRAN) injection intravenous, As needed, Starting on e 07/06/24 at 1639, Anesthesia Intraprocedure Given 07/06/2024 4:39 PM EDT 4 mg propofoL (DIPRIVAN) injection intravenous, As needed, Starting on Fri07/06/24 at 1423, Anesthesia Intraprocedure Given 07/06/2024 4:38 PM EDT 2 0 mg Given 07/06/2024 2:23 PM EDT 200 mg rocuronium (ZEMURON) injection intravenous, As needed, Starting on Fri07/06/24 at 1423, Anesthesia Intraprocedure Given 07/06/2024 3:06 PM EDT 3 0 mg Given 07/06/2024 2:23 PM EDT 100 mg sugammadex (BRIDION) 100 mg/mL injection intravenous, As needed, Starting on Fri07/06/24 at 1711, Anesthesia Intraprocedure Given 07/06/2024 5:11 PM EDT 2 00 mg documented in this encounter Care Teams Mailroom Courier Relationship Specialty Start Date End Date Dalia Harmon PA [address] [place] [address], [address] [place] [address] PCP - General 05/10/24 documented as of this encounter
--- OUTSIDE RECORDS SUMMARY | 2024-07-14 09:35 | XMS_ITS | Encounter Summary ---
Author Organization [facility] Address [address] [place] [address] Care Team Providers Care Coastal Tug Mate Name Role Phone Dalia Harmon Primary Care Provider [phone] Reason for Visit * Reason Onset Date Comments provider call back 05/24/2024 Encounter Details Date Type Department Care Team ([facility] st Contact Info) Description 05/24/2024 Telephone Gastroenterology - [place] [address] [place] [phone] Han Sloan DO [address] [place] [address] provider call back Social History Tobacco Use [...] 8:30 AM EDT Office Visit Gastroenterology - [place] [address] [place] [address] Han Sloan DO [address] [place] [address] documented as of this encounter Visit Diagnoses Not on filedocumented in this encounter Care Teams Coastal Tug Mate Relationship Specialty Start Date End Date Dalia Harmon PA [address] [place] [address], [address] [place] [address] PCP - General 05/10/24 documented as of this encounter
--- OUTSIDE RECORDS SUMMARY | 2024-07-14 09:35 | XMS_ITS | Encounter Summary ---
Author Organization [facility] Address [address] [place] [address] Care Team Providers [employer] Name Role Phone Dalia Harmon Primary Care Provider [phone] Reason for Referral * Home Health (Routine) - Closed Specialty Diagnoses / Procedures Referred By Aliya harris Referred To Contact Home Health Services Diagnoses Personal history of portal hypertension Esophageal varices without bleeding, unspecified esophageal varices type (CMS/HCC) Liver cirrhosis secondary to CASTANEDA (nonalcoholic steatohepatitis) (CMS/HCC) Annie Vyas PA [address] [place] [phone] Phone: tel: fax: [facility] Nurse [facility] [address] [place] [phone] Phone: tel: fax: Referral ID Status Reason Start Date Expiration Date V isits Requested Visits Authorized [id number] Closed Consult and Treat 07/07/2024 07/07/2025 1 1 Reason for Visit * Auth/Cert (Routine) Specialty Diagnoses / Procedures Referred By Aliya harris Referred To Contact Diagnoses Personal history of portal hypertension Procedures [facility] IP/OBS CARE ADMIT/DISCHARGE SAME DATE MODERATE LEVEL Rosaura Iglesias MD [address] [place] [id number] Phone: tel: fax: [facility] [address] [place] [address] Phone: tel: Referral ID Status Reason Start Date Expiration Date Visits Re quested Visits Authorized [id number] 1 1 Encounter Details Date Type Department Care Team (Late st Contact Info) Description 07/06/2024 3:56 PM EDT - 07/07/2024 12:46 PM EDT Hospital Encounter [facility] [address] [place] [address] Rosaura Iglesias MD [address] [place] [address] Liang Reinoso MD [address] [place] [address] Yovanny Mendez, COMM[employer]CIAL [employer] SALESMAN [address] [place] [address] Malini Kebede MD [address] [place] [address] Personal history of portal hypertension (Primary Dx); Esophageal varices without bleeding, unspecified esophageal varices type (CMS/HCC); Liver cirrhosis secondary to CASTANEDA (nonalcoholic steatohepatitis) (CMS/HCC) Discharge Disposition: Home-Health Care Svc Social History [...] Mass Index 53.31 07/06/2024 1:37 PM EDT documented in this encounter Functional Status * [...] documented in this encounter Discharge Summaries * GIORGI Mendosa 07/07/2024 11:20 AM EDT Date of admission 07/06/2024 Date of discharge 07/07/2024 Disposition: Home with services Discharge Final Diagnosis: S/p TIPS Hospital Course: From HPI: This is a 64-year-old male past medical history significant for cirrhosis with portal hypertension, portal vein thrombosis, ascites, esophageal varices, thrombocytopenia, splenomegaly, hypertension, hyperlipidemia, diabetes mellitus requiring insulin, BPH with chronic urinary retention requiring catheterization, NICOLE, insomnia, anxiety/depression, avascular necrosis, amongst others, whopresents to [facility] for scheduled procedure. Patient underwent TIPS procedure with interventional radiology Dr. Bonner, without complications. Patient is evaluated postoperatively in the PACU, he complains of nausea and abdominal upset, though denies additional complaints. Denies fever, chills, focal weakness, headache, lightheadedness, dizziness, shortness of breath, cough, chest pain, palpitations, vomiting, diarrhea, constipation, dysuria or hematuria. Denies recenttravel or sick contacts. Upon H&P patient is afebrile, heart rate 79, respiratory rate 19, blood pressure 144/54, oxygensaturation 95% on room air. Labs performed revealing WBC 6.7 with H&H 13.0/44.9, platelets 125,BUN 8 with creatinine 0.7. Care subsequent transferred to the internal medical service for further evaluation and treatment. 1. Cirrhosis of the liver/portal hypertension/varices/splenomegaly status post TIPS procedure: Status post TIPS 07/[address] Bonner without complication. He was admitted postprocedure for monitoring and pain control. On 07/07 he is tolerating diet and pain is controlled. H&H stable 12.7/38.0. AST 67 ALT 39 ALP 167 with total bilirubin 3.8. His potassium level is noted to be 5.4 today and he recei rubens 10 g p.o. Lokelma prior to discharge. Suspect his potassium is up due to LR administration overnight in combination with spironolactone. Recommend to reduce spironolactone to 100 mg daily for nowand continue current Lasix regimen. Follow-up for repeat BMP within 1 week and outpatient provider can consider increase back to [address] Bonner to arrange outpatient follow-up with [facility]. 2. Portal vein thrombosis/thrombocytopenia: Chronically on Eliquis which has been held for the pastweek prior to TIPS procedure. Platelet count 98. Confirmed with Dr. Bonner to resume Eliquis 07/07 3. Diabetes: Not maintained on medications. Monitor POC and continue carbohydrate restricted diet. 4. Hypertension: Continue spironolactone and furosemide. Spironolactone reduced to 100 mg from 150 mg due to borderline hyperkalemia. 5. Hyperlipidemia: Continue statin 6. BPH/urinary retention: With chronic Cuello catheter in place. Continue chronic Cuello, finasterideand tamsulosin 7. Opiate dependence: Continue chronic oxycodone 8. Insomnia: Continue Ambien Procedures Performed: TIPS Issues Requiring Follow-Up Care: *Repeat BMP 1 week with outpatient providers *Follow up [facility] outpatient Outpatient Follow-Up Care: Future Appointments Date Time Provider Department Center 08/26/2024 8:30 AM Han Sloan, DO [facility] [address] [facility] Discharge Medication List: Your medication list CHANGE how you take these medications Instructions Last Dose Given Next Dose Due furosemide 20 mg tablet Commonly known as: LASIX What changed: how much to take how to take this when to take this additional instructions Another medication with the same name was removed. Continue taking this medication, and follow the directions you see here. Take 2 tablets in the morning at 8 AM and 1 tablet in afternoon at 3 PM spironolactone 100 mg tablet Commonly known as: ALDACTONE What changed: how much to take Take 1 tablet (100 mg total) by mouth 1 (one) time each day. CONTINUE taking these medications Instructions Last Dose Given Next Dose Due albuterol 2.5 mg/0.5 mL solution for nebulization [...] VITAMIN D-3 1 tablet (2,000 Units total). naloxone 4 mg/0.1 mL nasal spray Commonly known as: NARCAN Administer 1 each (4 mg total) into affected nostril(s). oxyBUTYnin XL 5 mg 24 hr tablet Commonly known as: DITROPAN-XL Take 1 tablet (5 mg total) by mouth 1 (one) time each day. oxyCODONE 10 mg tablet, oral only Take 10 mg by mouth every 4 (four) hours if needed (breakthrough pain). Max Daily Amount: 60 mg rosuvastatin 5 [...] mouth at bedtime as needed. for insomnia Where to Get Your Medications These medications were sent to [id number] - [address] AT [address], [facility] [phone] spironolactone 100 mg tablet Patient Condition and Disposition at Time of Discharge: Patient was seen and examined this morning at bedside Denies any abdominal pain, nausea or vomiting No chest pain, shortness of breath, dizziness Tolerating diet Vitals: 07/07/24 0746 BP: 117/68 Pulse: 76 Resp: 18 Temp: 36.1 ??C (96.9 ??F) SpO2: 96% PHYSICAL EXAMINATION: General Exam: Age-appropriate male, awake, calm, cooperative, lying in the hospital bed in no acutedistress. Skin Exam: Warm, dry and intact without diaphoresis. Venous stasis to distal BLE. R IJ access site without oozing or drainage. HEENT exam: Head appears atraumatic. No scleral icterus. Respiratory Exam: Clear to auscultation bilaterally. Non labored respirations. Cardiovascular Exam: Regular rate and rhythm. Gastrointestinal Exam: Abdomen is soft, nontender, and nondistended. Bowel sounds appreciated. Musculoskeletal Exam: Trace bilateral nonpitting lower extremity edema is appreciated. Neurological Exam: Alert and oriented x 3. No focal deficits noted. Psychiatric: Stable mood and affect. Lab Results Component Value Date WBC 5.0 07/07/2024 HGB 12.7 (L) 07/07/2024 HCT 38.0 (L) 07/07/2024 MCV 104.4 (H) 07/07/2024 PLT 98 (L) 07/07/2024 Lab Results Component Value Date GLUCOSE 153 (H) 07/07/2024 CALCIUM 8.4 (L) 07/07/2024 NA 130 (L) 07/07/2024 K 5.4 07/07/2024 CO2 27 07/07/2024 CL 97 07/07/2024 BUN 10 07/07/2024 CREATININE 0.62 (L) 07/07/2024 Discharge Instructions: Discharge Procedure Orders Ambulatory referral to Home Health Standing Status: Future Referral Priority: Routine Referral Type: Home Health Referral Reason: Consult and Treat Requested Specialty: Home Health Services Number of Visits Requested: 1 Total time spent performing chart review, assessing the patient, documenting, discussing with attending MD/bedside RN/ICC, updating family, arranging care and performing a high level of medical decision making approximately 45 minutes. Case discussed with Dr. Reinoso Cosigned by Liang Reinoso MD at 07/08/2024 3:32 PM EDT Associated attestation - Liang Reinoso MD - 07/08/2024 3:32 PM EDT This is a split/shared visit with GIORGI Mendosa. I personally performed the medical decision making (MDM) for the care of this patient as documentedbelow Patient was discussed with advanced practitioner . I personally saw and examined the patient bedside. Chart was reviewed by me personally including relevant history, updates, labs, imaging. Agree with the documentation and plan per HUGO except mentioned below. 64 years old male with decompensated hepatic cirrhosis presents to the hospital for elective TIPS procedure. Patient was admitted postop for monitoring. Hepatic cirrhosis status post TIPS procedure-successful TIPS procedure. Denies any pain. Somewhat hyperkalemic; reduce the dose of spironolactone for now and patient repeat labs within 1 week. May increase the dose back up to 150 if electrolytes stable. Portal vein thrombosis-continue with outpatient dose of Eliquis. Discussed the case with patient's sister present bedside and all the questions answered appropriately Liang Reinoso MD 07/08/24 3:30 PM EDT documented in this encounter Discharge Instructions * Discharge Instructions* GIORGI Mendosa - 07/07/2024 11:19 AM EDT Decrease your spironolactone to 100 mg daily for now given your potassium was borderline elevated. Recommend repeat potassium level in the outpatient setting within the next 1 week to ensure stability. Continue the Eliquis I confirmed this with the physician who performed your procedure. Dr. Bonner to arrange outpatient follow-up visit at [facility] with plan to get an ultrasound of the stent at the same time. Follow-up with primary care recommended within 1-2 weeks Return to the ED with any new or worsening symptoms. documented in this encounter Medications at Time [...] 1 (one) time each day. 06/03/2024 oxyCODONE 10 mg tablet, oral only Take 10 mg by mouth every 4 (four) hours if needed (breakthrough pain). Max Daily Amount: 60 mg rosuvastatin (CRESTOR) 5 mg tablet Take 1 tablet (5 mg total) by mouth 1 (one) time each day. 03/25/2024 spironolactone (ALDACTONE) 100 mg tablet Take 1 tablet (100 mg total) by mouth 1 (one) time each day. 30 each 07/07/2024 tamsulosin (FLOMAX) 0.4 mg 24 hr capsule Take 1 capsule (0.4 mg total) by mouth 1 (one) time each day. zolpidem (AMBIEN) 10 mg tablet Take 1 tablet (10 mg total) by mouth at bedtime as needed. for insomnia documented as of this encounter Ordered Prescriptions Prescription Sig Dispense Quantity Refills Last Filled Start Date End Date spironolactone (ALDACTONE) 100 mg tablet Take 1 tablet (100 mg total) by mouth 1 (one) time each day. 30 each 07/07/2024 08/06/2024 documented in this encounter Discharge Disposition Disposition Code Departure Means Destination Comment s Home-Health Care Svc documented in this encounter Progress Notes * Tesha Hicks RN - 07/07/2024 8:47 AM EDT 07/07/24 0844 Initial Transition Plan Initial Transition Plan Home Health Care ([facility] 47hrs/wk) Back up Transition Plan Back up Transition plan Home Health Care ([facility] 2x/wk) Discharge Planning Living Arrangements Alone Type of Residence Private residence Assistive Devices Wheelchair;Walker;Eyeglasses;Shower chair Support Systems Immediate family;Caregiver Medication Coverage Has Med Coverage Under Insurance Plan Yes Medication Affordability No concerns related to payment for meds Anticipated Discharge Needs Home Health RN;PT Discipline following for SNF placement Rf Test Engineer Informed Choice Informed Choice Given? Yes Transportation Transportation at discharge Family [employer] providing transportation [employer] [facility] What day is the transport expected? 07/07/24 Final Discharge Disposition Home Health Care Services ICC met w Pt and sister at bedside, confirmed demographics. CM PIETRO: 07/07 Barriers: Cleared for SH[facility] home. Dispo: active w/ [facility], lives alone, chronic F/C, [facility] will transport home. * Charmaine Adhikari RN - 07/07/2024 12:57 AM EDT Goals: Stability of the patient: Moderately Stable - Low risk of patient condition declining or worsening Problem: Cognitive: Maher Selwyn Fall Risk Goal: Last Known Fall Outcome: Progressing Goal: Mobility requiring assistance of person or device Outcome: Progressing Goal: Dizziness Outcome: Progressing Goal: Medications Outcome: Progressing Goal: Mental Status/LOC/Awareness Outcome: Progressing Goal: Toileting Needs Outcome: Progressing Goal: Volume and Electrolyte Status Outcome: Progressing Goal: Communication/Sensory Outcome: Progressing Goal: Behavior Outcome: Progressing documented in this encounter H&P Notes * GIORGI Hughes - 07/06/2024 6:29 PM EDT Images from the original note were not included. [facility] HISTORY AND PHYSICAL Please contact author [GIORGI Hughes] via [employer]. Patient: Jonny Reed Admission Date/Time: 07/06/2024 3:56 PM : 1960 [64 y.o.] Patient's PCP: GIORGI Hummel Attending Provider: Rosaura Iglesias MD CHIEF COMPLAINT Abdominal pain HISTORY OF PRESENT ILLNESS This is a 64-year-old male past medical history significant for cirrhosis with portal hypertension,portal vein thrombosis, ascites, esophageal varices, thrombocytopenia, splenomegaly, hypertension, hyperlipidemia, diabetes mellitus requiring insulin, BPH with chronic urinary retention requiring catheterization, NICOLE, insomnia, anxiety/depression, avascular necrosis, amongst others, who presents to [facility] for scheduled procedure. Patient underwent TIPS procedure with interventionalradiology Dr. Bonner, without complications. Patient is evaluated postoperatively in the PACU, he complains of nausea and abdominal upset, though denies additional complaints. Denies fever, chills, focal weakness, headache, lightheadedness, dizziness, shortness of breath, cough, chest pain, palpitations, vomiting, diarrhea, constipation, dysuria or hematuria. Denies recenttravel or sick contacts. Upon H&P patient is afebrile, heart rate 79, respiratory rate 19, blood pressure 144/54, oxygensaturation 95% on room air. Labs performed revealing WBC 6.7 with H&H 13.0/44.9, platelets 125,BUN 8 with creatinine 0.7. Care subsequent transferred to the internal medical service for further evaluation and treatment. Review of Systems Review of Systems Gastrointestinal: Positive for abdominal pain and nausea. All other systems reviewed and are negative. MEDICAL HISTORY Past Medical History Past Medical History: Diagnosis Date ??? Anxiety 04/13/2018 DX:Anxiety ??? Ascites ??? Benign colonic polyp 12/12/2014 DX:Benign colonic polyp ??? BPH (benign prostatic hyperplasia) ??? Chronic allergic conjunctivitis 04/13/2018 DX:Chronic allergic [...] sleep apnea 05/21/2016 DX:Obstructive sleep apnea ??? Portal hypertension (CMS/HCC) ??? Portal vein thrombosis ??? Splenomegaly ??? Thoracic or lumbosacral neuritis or radiculitis 09/13/2011 DX:Thoracic or lumbosacral neuritis or radiculitis ??? Thrombocytopenia (CMS/HCC) ??? Vitamin D deficiency 07/27/2012 DX:Vitamin D deficiency Past Surgical History Past Surgical History: Procedure Laterality Date ??? BACK SURGERY PROCEDURE: HISTORICAL BACK SURGERY; COMMENT: spinal diskectomy, osteophytectomy x4 ??? COLONOSCOPY N/A PROCEDURE: HISTORICAL COLONOSCOPY ??? ESOPHAGOGASTRODUODENOSCOPY PROCEDURE: [place] ESOPHAGOGASTRODUODENOSCOPY TRANSORAL DIAGNOSTIC ??? OTHER SURGICAL HISTORY Right PROCEDURE: [place] STAB PHLEBT VARICOSE VEINS 1 XTR > 20 INCS Social History reports that he quit smoking about 21 years ago. His smoking use included cigarettes. He has never used smokeless tobacco. He reports current drug use. Drug: Marijuana/Cannabis. He reports that he does not drink alcohol. Lives alone. Independent with ADLs. Denies using assistive device with ambulation. Family History family history includes COPD in [...] to Encounter Medication Sig Dispense Refill ??? aspirin 81 mg EC tablet Take 1 tablet (81 mg total) by mouth 1 (one) time each day. ??? cholecalciferol (VITAMIN D-3) 50 mcg (2,000 unit) tablet 1 tablet (2,000 Units total). ??? furosemide (LASIX) 20 mg tablet Take 2 tablets in the morning at 8 AM and 1 tablet in afternoonat 3 PM (Patient taking differently: Take 1 tablet (20 mg total) by mouth 1 (one) time each day. Take 1 tablet in afternoon at 3 PM) 90 each 0 ??? furosemide (LASIX) 40 mg tablet Take 1 tablet (40 mg total) by mouth 1 (one) time each day in the morning. 30 each 1 ??? oxyBUTYnin XL (DITROPAN-XL) 5 mg 24 hr tablet Take 1 tablet (5 mg total) by mouth 1 (one) time each day. ??? rosuvastatin (CRESTOR) 5 mg tablet Take 1 tablet (5 mg total) by mouth 1 (one) time each day. ??? tamsulosin (FLOMAX) 0.4 mg 24 hr capsule Take 1 capsule (0.4 mg total) by mouth 1 (one) time each day. ??? zolpidem (AMBIEN) 10 mg tablet Take 1 tablet (10 mg total) by mouth at bedtime as needed. for insomnia ??? [DISCONTINUED] oxyCODONE (ROXICODONE) 10 mg immediate release tablet Take 1 tablet (10 mg total) by mouth every 4 (four) hours if needed for severe pain. ??? albuterol 2.5 mg/0.5 mL solution for nebulization nebulizer solution Take 0.5 mL (2.5 mg total)by nebulization every 6 (six) hours if needed for shortness of breath. ??? apixaban (ELIQUIS) 5 mg tablet Take 1 tablet (5 mg total) by mouth 2 (two) times a day. ??? naloxone (NARCAN) 4 mg/0.1 mL nasal spray Administer 1 each (4 mg total) into affected nostril(s). ??? oxyCODONE 10 mg tablet, oral only Take 10 mg by mouth every 4 (four) hours if needed (breakthrough pain). Max Daily Amount: 60 mg ??? spironolactone (ALDACTONE) 100 mg tablet Take 1.5 tablets (150 mg total) by mouth 1 (one) time each day. 45 each 0 ??? [DISCONTINUED] furosemide (LASIX) 40 mg tablet Take 1 tablet (40 mg total) by mouth 1 (one) time each day in the morning. ??? [DISCONTINUED] furosemide (LASIX) 40 mg tablet Take 1 tablet (40 mg total) by mouth 1 (one) time each day. ??? [DISCONTINUED] oxyCODONE (OXY-IR) 5 mg immediate release capsule Take 2 capsules (10 mg total) by mouth every 4 (four) hours if needed for severe pain. Max Daily Amount: 60 mg 15 capsule 0 OBJECTIVE Vitals Visit Vitals BP 133/69 Pulse 82 Temp 36.2 ??C (97.1 ??F) Resp 18 Temp (24hrs), Av.2 ??C (97.1 ??F), Min:36.1 ??C (97 ??F), Max:36.2 ??C (97.1 ??F) Body mass index is 53.31 kg/m??. No results found for: PTWT , PTHT Physical Examination General Exam: Age appropriate, awake, calm, cooperative, laying in a semiupright position, appearing uncomfortable though in no acute distress. Skin Exam: Warm, dry, intact, no diaphoresis. No rashes noted. Chronic venous stasis discoloration noted to bilateral lower extremities capillary refill < 3 seconds. Eye Exam: No scleral icterus HEENT exam: Head is normocephalic. Oral mucosa mildly dry. No trismus, drooling, or difficulty handling secretions. Neck Exam: Soft/supple, full range of motion, no nuchal rigidity Respiratory Exam: Clear to auscultation bilaterally, no wheezes, rales or rhonchi. No tripoding, retractions or increased work of breathing. Speaking in full sentences without difficulties. Cardiovascular Exam: Regular rate and rhythm, no rubs gallops. Gastrointestinal Exam: No pulsations or visible masses, nondistended. Hypoactive bowel sounds. Abdomen is soft, mild tenderness palpation, without rebound/guarding. No peritoneal signs appreciated. Musculoskeletal Exam: No calf tenderness or asymmetry. Lower extremities with mild nonpitting edema. Moving all extremities at the major joint spaces without difficulty. Neurological Exam: Alert and oriented X3. No focal deficit. DTR intact. Smile symmetric. No dysarthria/dysphagia. Tongue midline when protruded. Hearing appropriate. Following commands without difficulties. Psychiatric exam: stable mood and affect LAB RESULTS (most recent) HEMATOLOGY Lab Results Component Value Date WBC 6.7 07/06/2024 HGB 15.0 07/06/2024 HCT 44.9 07/06/2024 MCV 104.9 (H) 07/06/2024 PLT 125 (L) 07/06/2024 CHEMISTRY Lab Results Component Value Date GLUCOSE 141 (H) 07/06/2024 NA 135 07/06/2024 K 5.0 07/06/2024 CO2 25 07/06/2024 CL 100 07/06/2024 BUN 8 07/06/2024 CREATININE 0.70 07/06/2024 EGFR 102 07/06/2024 CALCIUM 8.7 07/06/2024 MG 1.9 06/15/2024 PHOS 3.0 06/15/2024 ANIONGAP 10 07/06/2024 Radiology No orders to display ASSESSMENT & PLAN Status post TIPS procedure Cirrhosis of the liver Portal hypertension Esophageal varices Splenomegaly -Bring patient into the hospital, monitor vital signs, ins and outs peripheral protocol -Patient tolerated procedure well without complications, tip stent placed by Dr. Bonner 07/06/2024 -As needed analgesia/antiemetics -Continue spironolactone as prescribed -Morning labs: CBC, BMP Portal vein thrombosis Thrombocytopenia -Chronically maintained on Eliquis, which has been on hold over the past 1 week -Restart tomorrow 07/08/2023 -Platelets currently 125 Diabetes mellitus -Not chronically maintained on medication for this Hypertension -Continue home spironolactone and furosemide with holding parameters Hyperlipidemia -Continue statin BPH Urinary retention -Continue chronic finasteride and tamsulosin as prescribed -Chronic Cuello catheter in place, last changed last week Opiate dependence -Increase chronic oxycodone dose PRN given recent surgery Insomnia -Continue Ambien Admission checklist [x] Code status: Full Code - Default [x] VTE Prophylaxis: Sequentials [x] Diet order on admission: Dietary Orders (From admission, onward) Start Ordered 07/06/241907 Adult diet [facility]; Modified Consistency Options for Liquidsand Solids; Full Liquid Diet effective now Question Answer Comment Location [facility] Diet Type (req) Modified Consistency Options for Liquids and Solids Modified Consistency Options for Liquids and Solids Full Liquid 07/06/241906 [x] Medication reconciliation Health Care proxy with Phone number: Sister [phone] or friend Elinor [phone] Case discussed with Cosigned by Rosaura Iglesias MD at 07/13/2024 1:42 PM EDT Associated attestation - Rosaura Iglesias MD - 07/13/2024 1:42 PM EDT This is a split/shared visit with GIORGI Hughes. I personally performed the medical decision making (MDM) for the care of this patient on 07/06/24 asdocumented below I have personally examined the patient and interpreted his vital signs labs and radiology data. This is a 64-year-old male with history of cirrhosis with portal hypertension portal vein thrombosis ascites esophageal varices and thrombocytopenia and splenomegaly currently being admitted to the hospital after he underwent TIPS procedure. He will be placed in observation overnight and his vital signs will be watched. I agree with analgesics and antiemetics as needed. Continue spironolactone. Patient may resume his Eliquis tomorrow. Rosaura Iglesias MD 07/13/24 1:41 PM EDT documented in this encounter Procedure Notes * Paul Bonner MD - 07/06/2024 5:25 PM EDT Interventional Radiology Brief Postprocedure Note Attending: Rosaura Iglesias MD Pre-Procedure Diagnosis: cirrhosis, portal hypertension Post-Procedure Diagnosis: Same as Pre-Procedure Diagnosis Description of procedure: TIPS stent placement Performing Provider: Paul Bonner MD Staff Role [employer] Yovanny Mendez CRNA CRNA Chang, Daniel J, MD Anesthesiologist Paul Bonner MD Radiologist Malini Kebede MD Anesthesiologist [employer] Rl Farmer, auditor supervisor Nurse Milady Chilel PA Assisting Rubens Richard CRNA CRNA Walsh, Michael, DO Anesthesiologist Anesthesia: General Significant Findings: None Complications: None Estimated Blood Loss: 30 cc Medications (Filter: Administrations occurring from 1415 to 1722 on 07/06/24) None Final Radiology report with images in PACS to follow. The patient tolerated the procedure well without incident or complication and is in stable condition. documented in this encounter Plan of Treatment Upcoming Encounters Date Type Department Care Team (Late st Contact Info) Description 08/26/2024 8:30 AM EDT Office Visit Gastroenterology - [place] [address] [facility] [address] [place] [address] Han Sloan DO [address] [facility] [address] [place] [address] Scheduled Referrals Name Type Priority Associated Diagnoses Order Schedule Ambulatory referral to Home Health Outpatient Referral Routine Personal history of portal hypertension Esophageal varices without bleeding, unspecified esophageal varices type (CMS/HCC) Liver cirrhosis secondary to CASTANEDA (nonalcoholic steatohepatitis) (CMS/HCC) 1 Occurrences starting 07/07/2024 until 07/07/2025 documented as of this encounter Procedures Procedure [...] THERAPY, ADULT Routine 07/06/2024 5:29 PM EDT PROTHROMBIN TIME WITH INR Routine 07/06/2024 1:45 PM EDT COMPLETE BLOOD COUNT Routine 07/06/2024 1:45 PM EDT TYPE AND SCREEN Routine 07/06/2024 1:45 PM EDT BASIC METABOLIC PANEL Routine 07/06/2024 1:45 PM EDT documented in this encounter Results * Activated Partial Thromboplastin Time - STAT (07/07/2024 11:15 AM EDT) aPTT 35.3 24.1 - 39.3 sec LAB COAGULATION METHOD 07/07/2024 12:17 PM EDT [facility] Blood Venous blood specimen / Unknown Venipuncture / Unknown 07/07/2024 11:15 AM EDT 07/07/2024 11:55 AM EDT Annie RAND LAB BLOOD ORDERABLES Final Result [facility] [address] [place] [address], * (ABNORMAL) Complete blood count (07/07/2024 6:20 AM EDT) [facility] WBC 5.0 4.8 - 10.8 K/mcL LAB HEMETOLOGY METHOD 07/07/2024 7:19 AM [facility] RBC 3.60(L) 4.50 - 5.50 M/mcL LAB HEMETOLOGY METHOD 07/07/2024 7:19 AM [facility] Hemoglobin 12.7(L) 13.5 - 17.5 g/dL LAB HEMETOLOGY METHOD 07/07/2024 7:19 AM [facility] Hematocrit 38.0(L) 42.0 - 54.0 % LAB HEMETOLOGY METHOD 07/07/2024 7:19 AM [facility] MCV 104.4(H) 79.0 - 98.0 FL LAB HEMETOLOGY METHOD 07/07/2024 7:19 AM [facility] MCH 34.9(H) 27.0 - 32.0 pcg LAB HEMETOLOGY METHOD 07/07/2024 7:19 AM [facility] MCHC 33.4 32.0 - 37.0 g/dL LAB HEMETOLOGY METHOD 07/07/2024 7:19 AM [facility] RDW 15.3(H) 11.0 - 15.0 % [...] 7:19 AM EDT [facility] Blood Venous blood specimen / Unknown Venipuncture / Unknown 07/07/2024 6:20 AM EDT 07/07/2024 6:57 AM EDT us Paola RAND LAB BLOOD ORDERABLES Final Resu lt Performing Organization Address City/[facility]/ZIP Co de Phone Number [facility] [address] [place] [address], * Magnesium (07/07/2024 6:20 AM EDT) Magnesium 2.3 1.9 - 2.6 mg/dL LAB CHEMISTRY METHOD 07/07/2024 7:39 AM EDT [facility] Blood Venous blood specimen / Unknown Venipuncture / Unknown 07/07/2024 6:20 AM EDT 07/07/2024 6:55 AM EDT us Paola RAND LAB BLOOD ORDERABLES Final Resu lt [facility] [address] [place] [address], * (ABNORMAL) Comprehensive metabolic panel (07/07/2024 6:20 AM EDT) Sodium 130(L) 133 - 145 mmol/L LAB CHEMISTRY METHOD 07/07/2024 8:12 AM [facility] Potassium 5.4 3.5 - 5.5 mmol/L LAB CHEMISTRY METHOD 07/07/2024 8:12 AM [facility] Chloride 97 96 - 110 mmol/L LAB CHEMISTRY METHOD 07/07/2024 8:12 AM [facility] CO2 27 21 - 32 mmol/L LAB CHEMISTRY METHOD 07/07/2024 8:12 AM [facility] Anion Gap 6 3 - 11 LAB CHEMISTRY METHOD 07/07/2024 8:12 AM [facility] Glucose 153(H) 70 - 100 mg/dL LAB CHEMISTRY METHOD 07/07/2024 8:12 AM [facility] BUN 10 5 - 25 mg/dL LAB CHEMISTRY METHOD 07/07/2024 8:12 AM [facility] Creatinine 0.62(L) 0.70 - 1.30 mg/dL LAB CHEMISTRY METHOD 07/07/2024 8:12 AM [facility] eGFR 105 >=60 mL/min/1. 73m2 LAB CHEMISTRY METHOD 07/07/2024 8:12 AM [facility] Comment:Calculation based on the??Chronic Kidney Disease Epidemiology Collaboration (CKD-EPI) equation refit??without adjustment for race. BUN/Creatinine Ratio 16.1 LAB CHEMISTRY METHOD 07/07/2024 8:12 AM [facility] Calcium 8.4(L) 8.5 - 10.5 mg/dL LAB CHEMISTRY METHOD 07/07/2024 8:12 AM [facility] AST (SGOT) 67(H) 10 - 42 unit/L LAB CHEMISTRY METHOD 07/07/2024 8:12 AM EDT [facility] Comment:Results verified by repeat testing ALT (SGPT) 39 10 - 60 unit/L LAB CHEMISTRY METHOD 07/07/2024 8:12 AM EDT [facility] Comment:Results verified by repeat testing Alkaline Phosphatase 167(H) 42 - 121 unit/L LAB CHEMISTRY METHOD 07/07/2024 8:12 AM EDT [facility] Total Protein 5.9(L) 6.0 - 8.0 g/dL LAB CHEMISTRY METHOD 07/07/2024 8:12 AM EDT [facility] Albumin 2.4(L) 3.2 - 5.0 g/dL LAB CHEMISTRY METHOD 07/07/2024 8:12 AM EDT [facility] Total Bilirubin 3.8(H) 0.0 - 1.4 mg/dL LAB CHEMISTRY METHOD 07/07/2024 8:12 AM EDT [facility] Blood Venous blood specimen / Unknown Venipuncture / Unknown 07/07/2024 6:20 AM EDT 07/07/2024 6:55 AM EDT us Paola RAND LAB BLOOD ORDERABLES Final Resu lt [facility] [address] [place] [address], * (ABNORMAL) POCT Glucose, blood (07/06/2024 5:56 PM EDT) Glucose POCT 141(H) 70 - 100 mg/dL 07/06/2024 5:57 PM EDT [facility] Blood Capillary blood specimen / Unknown 07/06/2024 5:56 PM EDT 07/06/2024 5:58 PM EDT Rosaura Iglesias MD LAB POINT OF CARE TE ST DOCKED DEVICE UNSOLICITED RESULTS Final Result [facility] [address] [place] [address], * (ABNORMAL) Basic metabolic panel (07/06/2024 1:45 PM EDT) Sodium 135 133 - 145 mmol/L LAB CHEMISTRY METHOD 07/06/2024 2:21 PM EDT [facility] Potassium 5.0 3.5 - 5.5 mmol/L LAB CHEMISTRY METHOD 07/06/2024 2:21 PM T [facility] Comment:Hemolysis present Chloride 100 96 - 110 mmol/L LAB CHEMISTRY METHOD 07/06/2024 2:21 PM [facility] CO2 25 21 - 32 mmol/L LAB CHEMISTRY METHOD 07/06[facility]2024 [facility] Anion Gap 10 3 - 11 LAB CHEMISTRY METHOD 07/06/2024 2:21 PM [facility] Glucose 161(H) 70 - 100 mg/dL LAB CHEMISTRY METHOD 07/06/2024 2:21 PM [facility] BUN 8 5 - 25 mg/dL LAB CHEMISTRY METHOD 07/06/2024 2:21 PM [facility] Creatinine 0.70 0.70 - 1.30 mg/dL LAB CHEMISTRY METHOD 07/06/2024 2:[facility] eGFR 102 >=60 mL/min/1. 73m2 LAB CHEMISTRY METHOD 07/06/2024 2:21 PM [facility] Comment:Calculation based on the??Chronic Kidney Disease Epidemiology Collaboration (CKD-EPI) equation refit??without adjustment for race. BUN/Creatinine Ratio 11.4 LAB CHEMISTRY METHOD 07/06/2024 2:21 PM [facility] Calcium 8.7 8.5 - 10.5 mg/dL LAB CHEMISTRY METHOD 07/06/2024 2:21 PM EDT [facility] Blood Venous blood specimen / Unknown 07/06/2024 1:45 PM EDT 07/06/2024 1:55 PM EDT us Paul Bonner MD LAB BLOOD ORDERABLES Final Resu lt Performing Organization Address [facility]/ZIP Co de Phone Number [facility] [address] [place] [address], [place] [phone] * (ABNORMAL) Protime-INR (07/06/2024 1:45 PM EDT) Protime 15.9(H) 10.6 - 13.9 sec LAB COAGULATION METHOD 07/06/2024 2:28 PM EDT [facility] INR 1.3 LAB COAGULATION METHOD 07/06/2024 2:28 PM EDT [facility] Blood Venous blood specimen / Unknown 07/06/2024 1:45 PM EDT 07/06/2024 1:55 PM EDT us Paul Bonner MD LAB BLOOD ORDERABLES Final Resu lt Performing Organization Address City/[facility]/ZIP Co de Phone Number [facility] [address] [place] [address], [place] [phone] * Type and screen (07/06/2024 1:45 PM EDT) ABO Group B 07/06/2024 2:47 PM EDT [facility] Rh Type Positive 07/06/2024 2:47 PM EDT [facility] Antibody Screen Negative 07/06/2024 2:47 PM EDT [facility] Blood Venous blood specimen / Unknown 07/06/2024 1:45 PM EDT 07/06/2024 1:55 PM EDT [facility] BLOOD BANK TEST ORDERABLES Final Result [facility] [address] [place] [address], * (ABNORMAL) CBC (07/06/2024 1:45 PM EDT) WBC 6.7 4.8 - 10.8 K/mcL LAB HEMETOLOGY METHOD 07/06/2024 2:02 PM EDT [facility] RBC 4.30(L) 4.50 - 5.50 M/mcL LAB HEMETOLOGY METHOD 07/06/2024 2:02 PM EDT [facility] Hemoglobin 15.0 13.5 - 17.5 g/dL LAB HEMETOLOGY METHOD 07/06/2024 2:02 PM EDT [facility] Hematocrit 44.9 42.0 - 54.0 % LAB HEMETOLOGY METHOD 07/06/2024 2:02 PM EDT [facility] MCV 104.9(H) 79.0 - 98.0 FL LAB HEMETOLOGY METHOD 07/06/2024 2:02 PM EDT [facility] MCH 35.0(H) 27.0 - 32.0 pcg LAB HEMETOLOGY METHOD 07/06/2024 2:02 PM EDT [facility] MCHC 33.4 32.0 - 37.0 g/dL LAB HEMETOLOGY METHOD 07/06/2024 2:02 PM EDT [facility] RDW 15.5(H) 11.0 - 15.0 % LAB HEMETOLOGY METHOD 07/06/2024 2:02 PM EDT [facility] Platelets 125(L) 130 - 400 K/mcL LAB HEMETOLOGY METHOD 07/06/2024 2:02 PM EDT [facility] MPV 9.9 7.0 - 11.0 FL LAB HEMETOLOGY METHOD 07/06/2024 2:02 PM EDT [facility] NRBC 0.0 <1.0 % LAB HEMETOLOGY METHOD 07/06/2024 2:02 PM EDT [facility] NRBC Absolute 0.00 <0.10 K/mcL LAB HEMETOLOGY METHOD 07/06/2024 2:02 PM EDT [facility] Blood Venous blood specimen / Unknown 07/06/2024 1:45 PM EDT 07/06/2024 1:55 PM EDT us Paul Alfaro DO LAB BLOOD ORDERABLES Final Resu lt [facility] [address] [place] [address], [place] [phone] documented in this encounter Visit Diagnoses Diagnosis Personal history of portal hypertension- Primary Personal history of other diseases of circulatory system Esophageal varices without bleeding, unspecified esophageal varices type (CMS/HCC) Liver cirrhosis secondary to CASTANEDA (nonalcoholic steatohepatitis) (CMS/HCC) documented in this encounter Administered Medications Inactive Administered Medications - up to 3 most recent administrations Medication Order MAR Action Action Date Dose Rate Site acetaminophen (TYLENOL) tablet 650 mg 650 mg, oral, Every 6 hours PRN, mild pain, Starting on Fri07/06/24 at 1925 apixaban (ELIQUIS) tablet 5 mg 5 mg, oral, Once, On Fri07/07/24 at 1130, For 1 dose, Indication: VTE/PE Treatment Given 07/07/2024 11:44 AM EDT 5 mg aspirin EC tablet 81 mg 81 mg, oral, Daily, First dose on Fri07/07/24 at 0900, Do not crush, chew, or split. Given 07/07/2024 8:49 AM EDT 81 mg atorvastatin (LIPITOR) tablet 20 mg 20 mg, oral, Nightly, First dose on Fri07/06/24 at 2100 Given 07/06/2024 9:28 PM EDT 20 mg bisacodyL (DULCOLAX) EC tablet 10 mg 10 mg, oral, Daily PRN, constipation, Starting on Fri07/06/24 at 1926, 1st line for treatment of constipation - give scheduled if no bowel movement in past 24 hours. Do not crush, chew, or split. cholecalciferol (VITAMIN D-3) tablet 2,000 Units 2,000 Units, oral, Daily, First dose on Fri07/07/24 at 0900, 1000 units = 25 mcg of cholecalciferol (VITAMIN D3) Given 07/07/2024 8:49 AM EDT 2,000 Units furosemide (LASIX) tablet 40 mg 40 mg, oral, Every morning, First dose on Fri07/07/24 at 0700, Hold if sbp < 110 Given 07/07/2024 5:41 AM EDT 40 mg haloperidol lactate (HALDOL) injection 1 mg 1 mg, intravenous, Once as needed, nausea and vomitting, Starting on Fri07/06/24 at 1729, For 1 dose, Recovery (only), Give as first line antiemetic agent. May be ordered via either intramuscular or intravenous route. If ordered IV, maximum of 5 mg/minute. Given 07/06/2024 6:14 PM EDT 1 mg lactated Ringer's infusion 75 mL/hr, intravenous, Continuous, Starting on Fri07/06/24 at 1745, Recovery (only) New Bag 07/06/2024 9:41 PM EDT 75 mL/hr 75 mL/hr New Bag 07/06/2024 7:16 PM EDT 75 mL/hr 75 mL/hr magnesium citrate solution 296 mL 296 mL, oral, Once as needed, constipation, constipation, Starting on Fri07/06/24 at 2030, For 1 dose, 2nd line for treatment of constipation - give scheduled (in addition to 1st line agent) if no bowel movement in past 48 hours. If no bowel movement within 3 hours of magnesium citrate administration, contact provider for further instructions. naloxone (NARCAN) injection 0.04 mg 0.04 mg, intravenous, As needed, opioid reversal, IV Push every 1 min for 10 doses, Starting on Fri07/06/24 at 1926, For 10 doses, To Dilute: -Use 0.4 [...] -Administer up to 10 doses (0.4 mg) ondansetron (PF) (ZOFRAN) injection 4 mg 4 mg, intravenous, Every 8 hours PRN, vomiting, nausea, Starting on Fri07/06/24 at 1926, -ONLY give IV if patient is unable to take orally. -If inadequate response within 30 minutes, proceed to next-line agent or contact provider if no further options ordered. ondansetron ODT (ZOFRAN-ODT) disintegrating tablet 4 mg 4 mg, oral, Every 8 hours PRN, vomiting, nausea, Starting on Fri07/06/24 at 1926, -Give IV if patient is unable to take orally. -If inadequate response within 30 minutes, proceed to next-line agent or contact provider if no further options ordered. For ODT tablets: -Do not remove from blister pack until just before administering. -Patient should allow tablet to dissolve on tongue. Given 07/06/2024 8:02 PM EDT 4 mg oxyBUTYnin XL (DITROPAN-XL) 24 hr tablet 5 mg 5 mg, oral, Daily, First dose on Fri07/07/24 at 0900, Do not crush, chew, or split. Given 07/07/2024 8:49 AM EDT 5 mg oxyCODONE (ROXICODONE) immediate release tablet 10 mg 10 mg, oral, Every 4 hours PRN, moderate pain or when therapies for mild pain were not effective, Starting on Fri07/06/24 at 1925 Given 07/07/2024 5:40 AM EDT 1 0 mg Given 07/06/2024 9:28 PM EDT 10 mg oxyCODONE (ROXICODONE) immediate release tablet 15 mg 15 mg, oral, Every 4 hours PRN, severe pain or when therapies for moderate pain were not effective, Starting on Fri07/06/24 at 1926 sodium zirconium cyclosilicate (LOKELMA) packet 10 g 10 g, oral, Once, On Fri07/07/24 at 1045, For 1 dose, empty the entire contents of the packet(s) into a drinking glass containing approximately 1.5 ounces (45 mL) water or more if desired. Stir well and drink immediately. If powder remains in the drinking glass, add water, stir and drink immediately. Repeat until no powder remains to ensure the entire dose is taken. Given 07/07/2024 11:44 AM EDT 10 g spironolactone (ALDACTONE) tablet 150 mg 150 mg, oral, Daily, First dose on Fri07/07/24 at 0900, Hold If sbp < 110 HAZARDOUS Drug Precautions - Low Risk (Category [...] capsules only for allowable dosage forms Given 07/07/2024 8:49 AM EDT 150 mg tamsulosin (FLOMAX) 24 hr capsule 0.4 mg 0.4 mg, oral, Daily, First dose on Fri07/07/24 at 0900, For oral administration: capsules should be swallowed whole (Do not crush, chew, or open). For tube administration: open capsule and administer with water (granules should NOT be crushed). Given 07/07/2024 8:49 AM EDT 0.4 mg documented in this encounter Discontinued Medications Medication Sig Discontinue Reason Start Date End Da te furosemide (LASIX) 40 mg tablet Take 1 tablet (40 mg total) by mouth 1 (one) time each day. Therapy completed 07/06/2024 oxyCODONE (OXY-IR) 5 mg immediate release capsule Take 2 capsules (10 mg total) by mouth every 4 (four) hours if needed for severe pain. Max Daily Amount: 60 mg Therapy completed 03/02/2024 07/06/2024 oxyCODONE (ROXICODONE) 10 mg immediate release tablet Take 1 tablet (10 mg total) by mouth every 4 (four) hours if needed for severe pain. Therapy completed 07/06/2024 spironolactone (ALDACTONE) 100 mg tablet Take 1.5 tablets (150 mg total) by mouth 1 (one) time each day. 05/25/2024 07/07/2024 furosemide (LASIX) 40 mg tablet Take 1 tablet (40 mg total) by mouth 1 (one) time each day in the morning. Stop Taking at Discharge 07/05/2024 07/07/2024 documented as of this encounter Historical Medications * This list may reflect changes made after this encounter. oxyCODONE 10 mg tablet, oral only Take 10 mg by mouth every 4 (four) hours if needed (breakthrough pain). Max Daily Amount: 60 mg furosemide (LASIX) 40 mg tablet Take 1 tablet (40 mg total) by mouth 1 (one) time each day. 07/06/2024 added in this encounter Active and Recently Administered Medications Times are shown in EDT. Scheduled Medication Order 07/05/2024 07/06/2024 07/07/2024 apixaban (ELIQUIS) tablet 5 mg 5 mg, oral, 2 times daily, First dose on Fri07/07/24 at 0900, Indication: Other, Specify: portal vein thrombosis 0848 (Not Given - Provider: Adina Sparks RN - Reason: Patient/Resident/Agent refused - education provided ) apixaban (ELIQUIS) tablet 5 mg (COMPLETED) 5 mg, oral, Once, On Fri07/07/24 at 1130, For 1 dose, Indication: VTE/PE Treatment 1144 (Given - Provid er: Adina Sparks RN) aspirin EC tablet 81 mg 81 mg, oral, Daily, First dose on Fri07/07/24 at 0900, Do not crush, chew, or split. 0849 (Given - Provid er: Adina Sparks RN) atorvastatin (LIPITOR) tablet 20 mg 20 mg, oral, Nightly, First dose on Fri07/06/24 at 2100 2128 (Given - Provider: Charmaine Adhikari RN) cholecalciferol (VITAMIN D-3) tablet 2,000 Units 2,000 Units, oral, Daily, First dose on Fri07/07/24 at 0900, 1000 units = 25 mcg of cholecalciferol (VITAMIN D3) 0849 (Given - Provid er: Adina Sparks RN) furosemide (LASIX) tablet 20 mg 20 mg, oral, Daily after dinner, First dose on Fri07/07/24 at 1730, Hold if sbp < 100 furosemide (LASIX) tablet 40 mg 40 mg, oral, Every morning, First dose on Fri07/07/24 at 0700, Hold if sbp < 110 0541 (Given - Provid er: Charmaine Adhikari RN - Comment: med rounding) oxyBUTYnin XL (DITROPAN-XL) 24 hr tablet 5 mg 5 mg, oral, Daily, First dose on Fri07/07/24 at 0900, Do not crush, chew, or split. 0849 (Given - Provid er: Adina Sparks RN) sodium zirconium cyclosilicate (LOKELMA) packet 10 g (COMPLETED) 10 g, oral, Once, On Fri07/07/24 at 1045, For 1 dose, empty the entire contents of the packet(s) into a drinking glass containing approximately 1.5 ounces (45 mL) water or more if desired. Stir well and drink immediately. If powder remains in the drinking glass, add water, stir and drink immediately. Repeat until no powder remains to ensure the entire dose is taken. 1144 (Given - Provid er: Adina Sparks RN) spironolactone (ALDACTONE) tablet 150 mg 150 mg, oral, Daily, First dose on Fri07/07/24 at 0900, Hold If sbp < 110 HAZARDOUS Drug Precautions - Low Risk (Category [...] of capsules only for allowable dosage forms 0849 (Given - Provid er: Adina Sparks RN) tamsulosin (FLOMAX) 24 hr capsule 0.4 mg 0.4 mg, oral, Daily, First dose on Fri07/07/24 at 0900, For oral administration: capsules should be swallowed whole (Do not crush, chew, or open). For tube administration: open capsule and administer with water (granules should NOT be crushed). 0849 (Given - Provid er: Adina Sparks RN) Continuous Medication Order 07/05/2024 07/06/2024 07/07/2024 lactated Ringer's infusion (CANCELED) 75 mL/hr, intravenous, Continuous, Starting on Fri07/06/24 at 1745, Recovery (only) 1916 (New Bag - Provider: Adina Sparks RN)2141 (New Bag - Provider: Charmaine Adhikari RN) 1144 (Stopped - Provider: Adina Sparks RN) PRN Medication Order 07/05/2024 07/06/2024 07/07/2024 acetaminophen (TYLENOL) tablet 650 mg 650 mg, oral, Every 6 hours PRN, mild pain, Starting on Fri07/06/24 at 1925 bisacodyL (DULCOLAX) EC tablet 10 mg 10 mg, oral, Daily PRN, constipation, Starting on Fri07/06/24 at 1926, 1st line for treatment of constipation - give scheduled if no bowel movement in past 24 hours. Do not crush, chew, or split. haloperidol lactate (HALDOL) injection 1 mg (COMPLETED) 1 mg, intravenous, Once as needed, nausea and vomitting, Starting on Fri07/06/24 at 1729, For 1 dose, Recovery (only), Give as first line antiemetic agent. May be ordered via either intramuscular or intravenous route. If ordered IV, maximum of 5 mg/minute. 1813 (Given - Provider: Vineet Altamirano RN) magnesium citrate solution 296 mL 296 mL, oral, Once as needed, constipation, constipation, Starting on Fri07/06/24 at 2030, For 1 dose, 2nd line for treatment of constipation - give scheduled (in addition to 1st line agent) if no bowel movement in past 48 hours. If no bowel movement within 3 hours of magnesium citrate administration, contact provider for further instructions. naloxone (NARCAN) injection 0.04 mg 0.04 mg, intravenous, As needed, opioid reversal, IV Push every 1 min for 10 doses, Starting on Fri07/06/24 at 1926, For 10 doses, To Dilute: -Use 0.4 [...] -Administer up to 10 doses (0.4 mg) ondansetron (PF) (ZOFRAN) injection 4 mg(Linked Group 1) 4 mg, intravenous, Every 8 hours PRN, vomiting, nausea, Starting on Fri07/06/24 at 1926, -ONLY give IV if patient is unable to take orally. -If inadequate response within 30 minutes, proceed to next-line agent or contact provider if no further options ordered. 2001 (See Alternative - Provider: Charmaine Adhikari RN) ondansetron ODT (ZOFRAN-ODT) disintegrating tablet 4 mg(Linked Group 1) 4 mg, oral, Every 8 hours PRN, vomiting, nausea, Starting on Fri07/06/24 at 1926, -Give IV if patient is unable to take orally. -If inadequate response within 30 minutes, proceed to next-line agent or contact provider if no further options ordered. For ODT tablets: -Do not remove from blister pack until just before administering. -Patient should allow tablet to dissolve on tongue. 2001 (Given - Provider: Charmaine Adhikari RN) oxyCODONE (ROXICODONE) immediate release tablet 10 mg 10 mg, oral, Every 4 hours PRN, moderate pain or when therapies for mild pain were not effective, Starting on Fri07/06/24 at 1926 2128 (Given - Provider: Charmaine Adhikari RN) 0540 (Given - Provider: Charmaine Adhikari RN) oxyCODONE (ROXICODONE) immediate release tablet 15 mg 15 mg, oral, Every 4 hours PRN, severe pain or when therapies for moderate pain were not effective, Starting on Fri07/06/24 at 1926 zolpidem (AMBIEN) tablet 10 mg 10 mg, oral, Nightly PRN, sleep, Starting on Fri07/06/24 at 1857 Linked Groups Order Group 1: ondansetron ODT (ZOFRAN-ODT) disintegrating tablet 4 mgJump to med 4 mg, oral, Every 8 hours PRN, vomiting, nausea, Starting on Fri07/06/24 at 1926, -Give IV if patient is unable to [...] 8 hours PRN, vomiting, nausea, Starting on Fri07/06/24 at 1926, -ONLY give IV if patient is unable to take orally. -If inadequate response within 30 minutes, proceed to next-line agent or contact provider if no further options ordered. documented in this encounter Orders Medications Ordered That Jaciel ht Not Have Been Administered Count Last Ordered Date First Ordered Date acetaminophen (TYLENOL) tablet 650 mg 1 apixaban (ELIQUIS) tablet 5 mg 1 07/06/2024 bisacodyL (DULCOLAX) EC tablet 10 mg 1 06/19 diphenhydrAMINE (BENADRYL) i njection 12.5 mg 1 07/06/2024 fentaNYL (PF) (SUBLIMAZE) injection 50 mcg 1 07/06/2024 furosemide (LASIX) tablet 20 mg 1 magnesium citrate solution 296 mL 1 025 naloxone (NARCAN) injection 0.04 mg 1 07/06 ondansetron (PF) (ZOFRAN) injection 4 mg 1 07/06/2024 oxyCODONE (ROXICODONE) immed iate release tablet 15 mg 1 07/06/2024 zolpidem (AMBIEN) tablet 10 mg 1 07/06/2024 Respiratory Care Count Last Ordered Date First Ordered Date CPAP NIV 2 07/06/2024 OXYGEN THERAPY, ADULT 1 07/06/2024 Admission Count Last Ordered Date First Orde red Date INITIATE OBSERVATION STATUS 1 07/06/2024 Discharge Count Last Ordered Date First Orde red Date DISCHARGE PATIENT 1 07/07/2024 documented in this encounter Care Teams [employer] Relationship Specialty Start Date End Date Dalia Harmon PA [address] [place] [address], [address] [place] [address] PCP - General 05/10/24 documented as of this encounter
== END 2024-07-14 09:22 | disposition home or self-care (01) ==
LOC: HO.HCS 08:51
PROVIDERS: PCP Family Medicine; Visit Provider Internal Medicine
DX: I25.10 Atherosclerotic heart disease of native coronary artery without angina pectoris (principal); E66.01 Morbid (severe) obesity due to excess calories; Z87.19 Personal history of other diseases of the digestive system; E83.119 Hemochromatosis, unspecified; G47.33 Obstructive sleep apnea (adult) (pediatric)
CPT/HCPCS: 99214; G2211

== ENCOUNTER → 2024-07-14 08:50 | Outpatient (BNVA) | payer OTHER, SELFPAY | PROVIDERS: PCP Family Medicine; Visit Provider Internal Medicine | DX: I25.10 Atherosclerotic heart disease of native coronary artery without angina pectoris (principal); G47.33 Obstructive sleep apnea (adult) (pediatric); E66.01 Morbid (severe) obesity due to excess calories; E83.119 Hemochromatosis, unspecified; Z87.19 Personal history of other diseases of the digestive system | CPT/HCPCS: 99212 ==

== ENCOUNTER 2024-07-27 13:55 | Outpatient (REF) | payer OTHER, SELFPAY ==
--- OUTSIDE RECORDS SUMMARY | 2024-07-27 17:03 | XMS_ITS | Encounter Summary ---
Author Organization [facility] Address [address] [place] [address] Care Team Providers Care Computer Information Systems Instructor Name Role Phone Dalia Harmon Primary Care Provider Encounter Details Date Type Department Care Team (Late Contact Info) Description 03/05/[address] [facility] - Main Lab [address] [facility] [place] [address] Gerry Barksdale MD [address] [facility] [address] [place] [address] Essential (primary) hypertension Social History Tobacco Use [...] Department Care Team (Late Contact Info) Description 09/02/2024 9:10 AM EDT Office Visit Gastroenterology - [place] [address] [facility] [address] [place] [address] Han Sloan DO [address] [place] [address] documented as of this encounter Procedures Procedure Name Priority Date/Time Associated Diagnosis Comments COMPLETE BLOOD COUNT Routine 03/08/2024 9:48 AM EST Essential (primary) hypertension BASIC METABOLIC PANEL Routine 03/08/2024 9:48 AM EST Essential (primary) hypertension documented in this encounter Results * (ABNORMAL) Basic metabolic panel (03/08/2024 9:48 AM EST) Sodium 138 133 - 145 mmol/L LAB CHEMISTRY METHOD 03/08/2024 1:23 PM [facility] Potassium 4.2 3.5 - 5.5 mmol/L LAB CHEMISTRY METHOD 03/08/2024 1:23 PM [facility] Chloride 102 96 - 110 mmol/L LAB CHEMISTRY METHOD 03/08/2024 1:23 PM [facility] CO2 26 21 - 32 mmol/L LAB CHEMISTRY METHOD 03/08/2024 1:23 PM [facility] Anion Gap 10 3 - 11 LAB CHEMISTRY METHOD 03/08/2024 1:23 PM [facility] Glucose 186(H) 70 - 100 mg/dL LAB CHEMISTRY METHOD 03/08/2024 1:23 PM [facility] BUN 14 5 - 25 mg/dL LAB CHEMISTRY METHOD 03/08/2024 1:23 PM [facility] Creatinine 0.76 0.70 - 1.30 mg/dL LAB CHEMISTRY METHOD 03/08/2024 1:23 PM [facility] eGFR 99 >=60 mL/min/1. 73m2 LAB CHEMISTRY METHOD 03/08/2024 1:23 PM [facility] Comment:Calculation based on the??Chronic Kidney Disease Epidemiology Collaboration (CKD-EPI) equation refit??without adjustment for race. BUN/Creatinine Ratio .4 LAB CHEMISTRY METHOD 03/08/2024 1:23 PM [facility] Calcium 8.7 8.5 - 10.5 mg/dL LAB CHEMISTRY METHOD 03/08/2024 1:23 PM [facility] Blood Venous blood specimen / Unknown Venipuncture / Unknown 03/08/2024 9:48 AM EST 03/08/2024 11:22 AM EST us Gerry Barksdale MD LAB BLOOD ORDERABLES Final Re sult [facility] [address] [place] [address], * (ABNORMAL) Complete blood count (03/08/2024 9:48 AM EST) WBC 4.6(L) 4.8 - 10.8 K/mcL LAB HEMETOLOGY METHOD 03/08/2024 12:55 PM [facility] RBC 4.20(L) 4.50 - 5.50 M/mcL LAB HEMETOLOGY METHOD 03/08/2024 12:55 PM [facility] Hemoglobin 14.5 13.5 - 17.5 g/dL LAB HEMETOLOGY METHOD 03/08/2024 12:55 PM [facility] Hematocrit 44.1 42.0 - 54.0 % LAB HEMETOLOGY METHOD 03/08/2024 12:55 PM [facility] MCV 105.3(H) 79.0 - 98.0 FL LAB HEMETOLOGY METHOD 03/08/2024 12:55 PM [facility] MCH 34.6(H) 27.0 - 32.0 pcg LAB HEMETOLOGY METHOD 03/08/2024 12:55 PM [facility] MCHC 32.9 32.0 - 37.0 g/dL LAB HEMETOLOGY METHOD 03/08/2024 12:55 PM EST [facility] RDW 14.7 11.0 - 15.0 % LAB HEMETOLOGY METHOD 03/08/2024 12:55 PM EST [facility] Platelets 102(L) 130 - 400 K/mcL LAB HEMETOLOGY METHOD 03/08/2024 12:55 PM [facility] MPV 11.3(H) 7.0 - 11.0 FL LAB HEMETOLOGY METHOD 03/08/2024 12:55 PM EST [facility] NRBC 0.0 <1.0 % LAB HEMETOLOGY METHOD 03/08/2024 12:55 PM EST [facility] NRBC Absolute 0.00 <0.10 K/mcL LAB HEMETOLOGY METHOD 03/08/2024 12:55 PM [facility] Blood Venous blood specimen / Unknown Venipuncture / Unknown 03/08/2024 9:48 AM EST 03/08/2024 11:22 AM EST us Gerry Barksdale MD LAB BLOOD ORDERABLES Final Re sult [facility] [address] [place] [address], documented in this encounter Visit Diagnoses Diagnosis Essential (primary) hypertension Unspecified essential hypertension documented in this encounter Care Teams Computer Information Systems Instructor Relationship Specialty Start Date End Date Dalia Harmon PA [address] [facility], [address] [place] [address] PCP - General 05/10/24 documented as of this encounter
--- OUTSIDE RECORDS SUMMARY | 2024-07-27 17:03 | XMS_ITS | Clinical Summary ---
Author Organization [facility] Address [address] [place] [address] Care Team Providers Care Cap Sewer Name Role Phone Dago Ferro MD Primary Care Provider [phone] Allergies No known active allergies Medications Medication [...] age to complete this topic Care Teams Cap Sewer Relationship Specialty Start Date End Date Dago Ferro MD PCP - General Internal Medicine 03/23/19
--- OUTSIDE RECORDS SUMMARY | 2024-07-27 17:03 | XMS_ITS | Encounter Summary ---
Author Organization [facility] Address [address] [place] [address] Care Team Providers Care Seismic Plotter Name Role Phone Dalia Harmon Primary Care Provider [phone] Encounter Details Date Type Department Care Team (Late st Contact Info) Description 05/26/2024 Lab Requisition [facility] - Main Lab [address] [facility] [place] [phone] Gerry Barksdale [address] [facility] [address] [place] [address] Weakness; Urinary tract infection, site [...] Care Team (Late st Contact Info) Description 09/02/2024 9:10 AM EDT Office Visit Gastroenterology - [place] [address] [place] [address] [place] [address] [place] [address] documented as of this encounter Procedures Procedure [...] Vitamin B12 (05/26/2024 6:59 AM EST) Pathologist [facility] Vitamin B-12 1,309(H) 250 - 900 pcg/mL LAB CHEMISTRY METHOD 05/26/2024 1:39 PM EST [facility] Blood Venous blood specimen / Unknown Venipuncture / Unknown 05/26/2024 6:59 AM EST 05/26/2024 10:29 AM EST us Gerry Barksdale LAB BLOOD ORDERABLES Final Resul t [facility] [address] [place] [address], * Folate (05/26/2024 6:59 AM EST) Pathologist [facility] Folate 4.3 2.8 - 17.0 ng/ml LAB CHEMISTRY METHOD 05/26/2024 1:39 PM EST [facility] Blood Venous blood specimen / Unknown Venipuncture / Unknown 05/26/2024 6:59 AM EST 05/26/2024 10:29 AM EST [facility] LAB BLOOD ORDERABLES Final Resul t Performing Organization Address [facility] Co de Phone Number [facility] [address] [place] [address], [place] [phone] * (ABNORMAL) Thyroid stimulating hormone (05/26/2024 6:59 AM EST) TSH 5.20(H) 0.40 - 4.00 mcIU/mL LAB CHEMISTRY METHOD 05/26/2024 1:24 PM [facility] Blood Venous blood specimen / Unknown Venipuncture / Unknown 05/26/2024 6:59 AM EST 05/26/2024 10:29 AM EST [facility] LAB BLOOD ORDERABLES Final Resul t Performing Organization Address [facility] de Phone Number [facility] [address] [place] [address], [place] [phone] * (ABNORMAL) Comprehensive metabolic panel (05/26/2024 6:59 AM EST) Sodium 133 133 - 145 mmol/L LAB CHEMISTRY METHOD 05/26/2024 1:16 PM [facility] Potassium 3.6 3.5 - 5.5 mmol/L LAB CHEMISTRY METHOD 05/26/2024 1:16 PM [facility] Chloride 95(L) 96 - 110 mmol/L LAB CHEMISTRY METHOD 05/26/2024 1:16 PM [facility] CO2 31 21 - 32 mmol/L LAB CHEMISTRY METHOD 05/26/2024 1:16 PM [facility] Anion Gap 7 3 - 11 LAB CHEMISTRY METHOD 05/26/2024 1:16 PM [facility] Glucose 116(H) 70 - 100 mg/dL LAB CHEMISTRY METHOD 05/26/2024 1:16 PM [facility] BUN 15 5 - 25 mg/dL LAB CHEMISTRY METHOD 05/26/2024 1:16 PM [facility] Creatinine 0.52(L) 0.70 - 1.30 mg/dL LAB CHEMISTRY METHOD 05/26/2024 1:16 PM [facility] eGFR 111 >=60 mL/min/1. 73m2 LAB CHEMISTRY METHOD 05/26/2024 1:16 PM [facility] Comment:Calculation based on the??Chronic Kidney Disease Epidemiology Collaboration (CKD-EPI) equation refit??without adjustment for race. BUN/Creatinine Ratio 28.8 LAB CHEMISTRY METHOD 05/26/2024 1:16 PM [facility] Calcium 8.2(L) 8.5 - 10.5 mg/dL LAB CHEMISTRY METHOD 05/26/2024 1:16 PM [facility] AST (SGOT) 27 10 - 42 unit/L LAB CHEMISTRY METHOD 05/26/2024 1:16 PM [facility] ALT (SGPT) 20 10 - 60 unit/L LAB CHEMISTRY METHOD 05/26/2024 1:16 PM [facility] Alkaline Phosphatase 139(H) 42 - 121 unit/L LAB CHEMISTRY METHOD 05/26/2024 1:16 PM [facility] Total Protein 6.0 6.0 - 8.0 g/dL LAB CHEMISTRY METHOD 05/26/2024 1:16 PM [facility] Albumin 2.3(L) 3.2 - 5.0 g/dL LAB CHEMISTRY METHOD 05/26/2024 1:16 PM [facility] Total Bilirubin 3.2(H) 0.0 - 1.4 mg/dL LAB CHEMISTRY METHOD 05/26/2024 1:16 PM [facility] Blood Venous blood specimen / Unknown Venipuncture / Unknown 05/26/2024 6:59 AM EST 05/26/2024 10:29 AM EST Gerry Barksdale LAB BLOOD ORDERABLES Final Resul t [facility] [address] [place] [address], * (ABNORMAL) Complete blood count (05/26/2024 6:59 AM EST) [facility] WBC 7.6 4.8 - 10.8 K/mcL LAB HEMETOLOGY METHOD 05/26/2024 11:18 AM [facility] RBC 3.50(L) 4.50 - 5.50 M/mcL LAB HEMETOLOGY METHOD 05/26/2024 11:18 AM [facility] Hemoglobin 12.2(L) 13.5 - 17.5 g/dL LAB HEMETOLOGY METHOD 05/26/2024 11:18 AM [facility] Hematocrit 35.5(L) 42.0 - 54.0 % LAB HEMETOLOGY METHOD 05/26/2024 11:18 AM [facility] MCV 100.6(H) 79.0 - 98.0 FL LAB HEMETOLOGY METHOD 05/26/2024 11:18 AM [facility] MCH 34.6(H) 27.0 - 32.0 pcg LAB HEMETOLOGY METHOD 05/26/2024 11:18 AM [facility] MCHC 34.4 32.0 - 37.0 g/dL LAB HEMETOLOGY METHOD 05/26/2024 11:18 AM [facility] RDW 15.9(H) 11.0 - 15.0 % LAB HEMETOLOGY METHOD 05/26/2024 11:18 AM [facility] Platelets 139 130 - 400 K/mcL LAB HEMETOLOGY METHOD 05/26/2024 11:18 AM EST [facility] MPV 10.8 7.0 - 11.0 FL LAB HEMETOLOGY METHOD 05/26/2024 11:18 AM EST [facility] NRBC 0.0 <1.0 % LAB HEMETOLOGY METHOD 05/26/2024 11:18 AM EST [facility] NRBC Absolute 0.00 <0.10 K/mcL LAB HEMETOLOGY METHOD 05/26/2024 11:18 AM EST [facility] Blood Venous blood specimen / Unknown Venipuncture / Unknown 05/26/2024 6:59 AM EST 05/26/2024 10:29 AM EST Gerry Barksdale LAB BLOOD ORDERABLES Final Resul t [facility] [address] [place] [address], documented in this encounter Visit Diagnoses Diagnosis Weakness Other malaise and fatigue Urinary tract infection, site not specified documented in this encounter Care Teams Seismic Plotter Relationship Specialty Start Date End Date Dalia Harmon PA [address] [place] [address], [address] [place] [address] PCP - General 05/10/24 documented as of this encounter
--- OUTSIDE RECORDS SUMMARY | 2024-07-27 17:03 | XMS_ITS | Encounter Summary ---
Author Organization [facility] Address [address] [place] [address] Care Team Providers Care Material Disposition Inspector Name Role Phone Dalia Harmon Primary Care Provider [phone] Encounter Details Date Type Department Care Team (Late st Contact Info) Description 06/18/[address] [facility] - Main Lab [address] [facility] [place] [phone] Gerry Barksdale [address] [facility] [address] [place] [address] Sepsis, unspecified organism (CMS/HCC) Social [...] 9:10 AM EDT Office Visit Gastroenterology - [place] [address] [facility] [address] [place] [address] Han Sloan DO [address] [place] [address] documented as of this encounter Visit Diagnoses Diagnosis Sepsis, unspecified organism (CMS/[facility]) documented in this encounter Care Teams Material Disposition Inspector Relationship Specialty Start Date End Date Dalia Harmon PA [address] [place] [address], [address] [place] [address] PCP - General 05/10/24 documented as of this encounter
--- OUTSIDE RECORDS SUMMARY | 2024-07-27 17:03 | XMS_ITS | Data Portability ---
Author Organization [employer], Id in - [employer] Address [address] [place] [address] Care Team Providers Care Eyeletter Name Role Phone HIM [facility] OTHER [facility] Primary Care Provider [phone] Assessment Encounter Date Assessment Date Assessment LastModified [...] assessment and plan as documented by the sheet metal duct installer helper. I provided real-time medical direction for this encounter and was immediately available to provide additional phone-based assistance as needed. HPI: 64M presenting with malfunctioning catheter, leaking. No other symptoms noted. Was recently tested for UTI and was negative. VSS. Exam otherwise unremarkable per the sheet metal duct installer helper. Able to reinsert catheter to have [...] in the field was performed by my sheet metal duct installer helper colleague, as noted above, I provided [...] needs coags and platelets checked Disposition: To [facility] ED via 911. Patient is agreeable to [...] Final report Not Available [facility] ([facility]) [address] [facility], [place], [address], 03/19/2024 10:05:46 03/16/2003/19/2024 URINE CULTU RE,CO MPREH ENSIV E result 1 COMMEN T No growt h in 36 - 48 hours . Not Available [facility] ([facility]) [address] [facility], [place], [address], 03/19/2024 10:05:46 Result Notes None recorded. Medical Equipment None Reported. Allergies Allergen ID Allergen Name Allergen Category Reaction Reaction Severity Criticality Documentation Date Start Date Code Code System Note Provider Name and Address Organization Details Recorded Time 39497 semagluti de medicatio n Not available Not available Not available 03/18/2024 RxNorm Not Available [facility] - [employer] 4 18:27:38 99331 nystatin medicatio n Not available Not available Not available 06/10/2024 7597 RxNorm Not Available [facility] - production 5 20:32:41 63722 codeine medicatio n Not available Not available [...] cm 96 % 96 % 98 [degF] 460977 g 14 /min 77 /min 134 mm[Hg] 82 mm[Hg] Not Available [facility] 4 19:24:57 Date Recorded Body weight Oxygen saturation Oxygen saturation in Arterial blood by Pulse oximetry Respiratory rate Body temperature Heart rate Systolic blood pressure Diastolic blood pressure Provider Name and Address Organization Details Last Updated DateTime 5 222070. 28 g 97 % 97 % 16 /min 98.2 [degF] 86 /min 156 mm[Hg] 82 mm[Hg] Not Available [facility] [employer] 5 10:41:34 Date Recorded Body weight Body height Body temperature Oxygen saturation Oxygen saturation in Arterial blood by Pulse oximetry Respiratory rate Heart rate Systolic blood pressure Diastolic blood pressure Provider Name and Address Organization Details Last Updated DateTime 5 874888. 28 g 167.64 cm 98 [degF] 94 % 94 % 16 /min 87 /min 162 mm[Hg] 72 mm[Hg] Not Available [facility] - [employer] 5 18:57:19 Date Recorded Heart rate Oxygen [...] cm 97 % 97 % 99 /min 424346. 584 g 20 /min 150 mm[Hg] 90 mm[Hg] Not Available [facility] - production 20:56:17 Social History None recorded. Functional Status None recorded. Mental Status None recorded. Family History Nothing Reported. Medical History No medical history recorded. Past Encounters Encounter ID Performer Location Encounter Start Date Encounter Closed Date Diagnosis/Indication Diagnosis SNOMED-CT Code Diagnosis ICD10 Code Diagnosis Note [id number] Aleksandar Manning MD Main - [facility] [address] [place] [phone] 03/16/2024 13:37:07 03/16/2024 16:05:19 Mechanical complication of urethral indwelling catheter 97770347 T83.098A [id number] Elvi [facility]reira MD [facility] [address] [place], [place] [phone] 03/18/2024 19:24:55 03/19/2024 15:31:31 Complication of urinary catheter 950962790 T83.9XXA [id number] Juan [facility] [address] [place] [phone] 04/23/2024 10:41:31 04/23/2024 16:17:35 Complication of urinary catheter [id number] T83.9XXA As noted, we were called to see this patient regarding concerns of malpositio n of alex catheter Evaluation in the field was performed by my sheet metal duct installer helper colleague, as noted above, I provided real-time direction and supervisio n for this visit. The evaluation revealed normal VS and simple disconnect ion, which the patient was not able to adequately visualize due to body habitus. Impression :Alex disconnect ion without any patient complicati ons Plan:Recon Prashant crawford [id number] Betsy Lopez MD Main - [facility] [address] [place] [phone] 04/25/2024 18:57:17 04/26/2024 00:18:55 Complication of urinary catheter [id number] T83.9XXS As noted, we were called to see this patient regarding concerns of malfunctio vy urinary catheter. Evaluation in the field was performed by my sheet metal duct installer helper colleague, as noted above, I provided [...] of any new or worsening serious symptoms. [id number] Yasmeen Redmond MD Main - [facility] [address] [place] [phone] 06/10/2024 20:56:07 06/10/2024 21:35:04 Indwelling urethral urinary catheter in situ [id number] Z96.0 [id number] FRANSISCO POLANCO MD Main - [facility] [address] [place] [phone] 06/11/2024 20:56:11 06/12/2024 09:25:59 Jovi hematuria 936213231 R31.0 Health Concerns Section Related Observation LastModified by Organization Detai ls LastModified Time None Recorded Concern Status LastModified by Organization Details LastModified Time None Recorded Advance Directives Directive None Recorded Payers Encounter Date Sequence Insurance Name Policy Number Policy Pan Covered Member ID Pan Member ID Guarantor Name 03/18/2024 1 [facility] - DOS ON OR AFTER 2022 - DUAL ELIGIBLE - USP OPTIONS AND ONE CARE (MEDICARE REPLACEMENT/ADV ANTAGE - HMO) Jonny Reed [id number] Jonny Reed 04/23/2024 1 [employer] - DOS ON OR AFTER 2022 - DUAL ELIGIBLE - USP OPTIONS AND ONE CARE (MEDICARE REPLACEMENT/ADV ANTAGE - HMO) Jonny Alejandroes [id number] Jonny Reed 04/25/2024 1 [employer] - DOS ON OR AFTER 2022 - DUAL ELIGIBLE - USP OPTIONS AND ONE CARE (MEDICARE REPLACEMENT/ADV ANTAGE - HMO) Jonny Derek [id number] Jonny Reed 06/10/2024 1 [facility] - DOS ON OR AFTER 2022 - DUAL ELIGIBLE - USP OPTIONS AND ONE CARE (MEDICARE REPLACEMENT/ADV ANTAGE - HMO) Jonny Alejandroes [id number] Jonny Alejandroes 06/11/2024 1 [facility] [employer] - DOS ON OR AFTER 2022 - DUAL ELIGIBLE - USP OPTIONS AND ONE CARE (MEDICARE REPLACEMENT/ADV ANTAGE - HMO) Jonny Reed [id number] Jonny Burnett Reed Notes Date Note Type [...] needed. [facility] Alex cath [...] ................... ................... ................... ................... ................... ................... ........ Hotel Or Motel Receptionist Note From Esa Francisco: Patient alert and oriented seated in chair. Patient complains of leakage around urethra. Patient reports alex catheter inserted times two days ago by [facility] personnel. Patient reports he noticed urine [...] the hospital. Sticker to secure tube applied. [facility] advises culture taken times two days ago currently negative for growth.Patient encouraged to monitor site, contact [facility] critical care registered nurse to help arrange urology referral, and call [facility] again if needed. Patient and caregiver demonstrates understanding of care and plan. Patient grateful for assistance. ................... ................... ................... ................... ................... ................... ................... ........ [facility] Consulted: Elvi Pereira ................... ................... ................... ................... ................... ................... ................... ........ Disposition: Fulfilled Elvi Pereira MD [address] [place] [address],[address], [place], [address], [employer] 03/18/2024 20:14:22 04/23/2024 text/html CRC Nurse Triage [...] PMH: Chronic Back Pain, Hypertension, Cirrhosis Comments: City Editor verified the name//address and phone number. Pt [...] ................... ................... ................... ................... ................... ................... ........ Hotel Or Motel Receptionist Note From Hussein Grossman: Pt co alex cath disconnection from bag tube. Pt got up and it fell off. Pay can not see th area due to obesity and was unsure what had happened. Pt denies pain. Pt sts urine is sti voiding from catheter. Pt has no other complaints. Alex reconnected without issue. Pt education on signs indicating the ER. [facility] contacted and advised of resolution. ................... ................... ................... ................... ................... ................... ................... ........ [facility] Consulted: Justin Bustillo ................... ................... ................... ................... ................... ................... ................... ........ Disposition: Fulfilled Juan Antonio Bustillo MD [address] [facility] [address], [place], [address], [employer] 04/23/2024 10:47:59 04/25/2024 text/html CRC Nurse Triage [...] PMH: Chronic Back Pain, Hypertension, Cirrhosis Comments: City Editor verified the Pt.'s name//address and phone number. [...] ................... ................... ................... ................... ................... ................... ........ Hotel [employer] Motel Receptionist Note From Marcellus Mauro: This 64-year-old male [...] ................... ................... ................... ................... ................... ................... ........ [facility] Consulted: Betsy Lopez ................... ................... ................... ................... ................... ................... ................... ........ Disposition: Barbara Lopez MD [address], [place], [address], [employer] 04/25/2024 20:46:05 06/10/2024 text/html [facility] Nurse Triage Notes (Elsie Sultana - [...] ................... ................... ................... ................... ................... ................... ........ Hotel Or Motel Receptionist Note From Harley Rodriguez: Dispatched to above [...] urine not obviously displaced, no active leaking. [facility] contacted, advised of patient complaints and exam findings. Catheter balloon drained 10ml sterile water, re-inflated, patient reported discomfort, catheter advanced and re-inflated without pain, urine moving in tubing, patient denies discomfort. [facility] advised of catheter troubleshooting, recommends home monitoring with follow up should leaking continue. Patient agrees with this plan. Patient has no additional questions or concerns at this time. SC8 clear. EOR. ................... ................... ................... ................... ................... ................... ................... ........ [facility] Consulted: Yasmeen Redmond ................... ................... ................... ................... ................... ................... ................... ........ Disposition: Fulfilled Yasmeen Redmond MD [address] [place] [address],[address], [place], [address] t-Art [facility] 06/10/2024 21:28:25 06/11/2024 text/html [facility] Nurse Triage Notes (Elsie Sultana - RN): Reason For Request: Patient has cath problems, Urine and blood in the back, problems all morning with it. Chief Complaints: Urinary catheter/nephrostom y tube problems PMH: Chronic Back Pain, Hypertension, Cirrhosis PMH Reviewed at 06/11/2024 - 18:22 Allergies Reviewed at 06/11/2024 - 18:22 Comments: [facility], catheter [...] with worsening s/sx-NE FRANSISCO POLANCO MD [address], [place], [address], [employer] 06/11/2024 22:21:06
--- OUTSIDE RECORDS SUMMARY | 2024-07-27 17:03 | XMS_ITS | Encounter Summary ---
Author Organization [facility] Address [address] [place] [address] Care Team Providers Care Process Improvement Analyst Name Role Phone Dalia Harmon Primary Care Provider [phone] Encounter Details Date Type Department Care Team (Late st Contact Info) Description 03/04/2024 Lab Requisition [facility] - Main Lab [address] [facility] [place] [address] Gerry Barksdale MD [address] [address] Vitamin D deficiency, unspecified; Type 2 diabetes [...] 9:10 AM EDT Office Visit Gastroenterology - [place] [address] [place] [phone] Han Sloan DO [address] [place] [address] documented as of this encounter Procedures Procedure [...] LAB CHEMISTRY METHOD 03/04/2024 12:[address] [facility] Blood Venous blood specimen / Unknown Venipuncture / Unknown 03/04/2024 9:21 AM EST 03/04/2024 11:40 AM EST us Gerry Barksdale MD LAB BLOOD ORDERABLES Final Re sult Performing Organization Address [facility]/ZIP Co de Phone Number [facility] [address] [place] [address], [place] [phone] * Hemoglobin A1c (03/04/2024 9:21 AM EST) Hemoglobin A1C 4.7 <6.5 % LAB CHEMISTRY METHOD 03/04/2024 2:46 PM EST [facility] Mean Bld Glu Estim. 88 mg/dL LAB CHEMISTRY METHOD 03/04/2024 2:46 PM EST [facility] Blood Venous blood specimen / Unknown Venipuncture / Unknown 03/04/2024 9:21 AM EST 03/04/2024 11:40 AM EST us Gerry Barksdale MD LAB BLOOD ORDERABLES Final Re sult Performing Organization Address [facility] Co de Phone Number [facility] [address] [place] [address], [place] [phone] * (ABNORMAL) Vitamin B12 (03/04/2024 9:21 AM EST) Pathologist [facility] Vitamin B-12 923(H) 250 - 900 pcg/mL LAB CHEMISTRY METHOD 03/04/2024 1:03 PM EST [facility] Blood Venous blood specimen / Unknown Venipuncture / Unknown 03/04/2024 9:21 AM EST 03/04/2024 11:40 AM EST us Gerry Barksdale MD LAB BLOOD ORDERABLES Final Re sult Performing Organization Address City/[facility]/ZIP Co de Phone Number [facility] [address] [place] [address], [place] [phone] * Folate (03/04/2024 9:21 AM EST) Pathologist [facility] Folate 11.0 2.8 - 17.0 ng/ml LAB CHEMISTRY METHOD 03/04/2024 1:03 PM [facility] Blood Venous blood specimen / Unknown Venipuncture / Unknown 03/04/2024 9:21 AM EST 03/04/2024 11:40 AM EST Gerry Barksdale MD LAB BLOOD ORDERABLES Final Re sult [facility] [address] [place] [address], [place] [phone] * Thyroid stimulating hormone (03/04/2024 9:21 AM EST) [facility] TSH 3.12 0.40 - 4.00 mcIU/mL LAB CHEMISTRY METHOD 03/04/2024 12:40 PM [facility] Blood Venous blood specimen / Unknown Venipuncture / Unknown 03/04/2024 9:21 AM EST 03/04/2024 11:40 AM EST Gerry Barksdale MD LAB BLOOD ORDERABLES Final Re sult [facility] [address] [place] [address], [place] [phone] * (ABNORMAL) Comprehensive metabolic panel (03/04/2024 9:21 AM EST) [facility] Sodium 137 133 - 145 mmol/L LAB CHEMISTRY METHOD 03/04/2024 1:03 PM [facility] Potassium 4.2 3.5 - [...] MD LAB BLOOD ORDERABLES Final Re sult [facility] [address] [place] [address], * (ABNORMAL) Complete blood count (03/04/2024 9:21 [...] pcg LAB HEMETOLOGY METHOD 03/04/2024 11:58 AM [facility] MCHC 33.4 32.0 - 37.0 g/dL LAB HEMETOLOGY METHOD 03/04/2024 11:58 AM [facility] RDW 14.3 11.0 - 15.0 % LAB HEMETOLOGY METHOD 03/04/2024 11:58 AM EST [facility] Platelets 101(L) 130 - 400 K/mcL LAB HEMETOLOGY METHOD 03/04/2024 11:58 AM EST [facility] MPV 11.0 7.0 - 11.0 FL LAB HEMETOLOGY METHOD 03/04/2024 11:58 AM EST [facility] NRBC 0.0 <1.0 % LAB HEMETOLOGY METHOD 03/04/2024 11:58 AM EST [facility] NRBC Absolute 0.00 <0.10 K/mcL LAB HEMETOLOGY METHOD 03/04/2024 11:58 AM EST [facility] Blood Venous blood specimen / Unknown Venipuncture / Unknown 03/04/2024 9:21 AM EST 03/04/2024 11:40 AM EST us Gerry Barksdale MD LAB BLOOD ORDERABLES Final Re sult [facility] [address] [place] [address], documented in this encounter Visit Diagnoses Diagnosis Vitamin D deficiency, unspecified Type 2 diabetes mellitus without complications Essential (primary) hypertension Unspecified essential hypertension documented in this encounter Care Teams Process Improvement Analyst Relationship Specialty Start Date End Date Dalia Harmon PA [address] [place] [address], [address] [place] [address] PCP - General 05/10/24 documented as of this encounter
--- OUTSIDE RECORDS SUMMARY | 2024-07-27 17:03 | XMS_ITS | Encounter Summary ---
Author Organization [facility] Address [address] [place] [address] Care Team Providers Care Outpatient Facility Physical Therapist Name Role Phone Dalia Harmon Primary Care Provider [phone] Encounter Details Date Type Department Care Team (Late st Contact Info) Description 06/04/2024 Lab Requisition [facility] - Main Lab [address] [facility] [place] [phone] Gerry Barksdale [address] [facility] [phone] [place] [address] Sepsis, unspecified organism (CMS/HCC) Social [...] 9:10 AM EDT Office Visit Gastroenterology - [place] [address] [place] [address] Han Sloan DO [address] [place] [address] documented as of this encounter Procedures Procedure Name Priority Date/Time Associated Diagnosis Comments COMPLETE BLOOD COUNT Routine 06/07/2024 10:48 AM EST Sepsis, unspecified organism (CMS/HCC) BASIC METABOLIC PANEL Routine 06/07/2024 10:48 AM EST Sepsis, unspecified organism (CMS/HCC) documented in this encounter Results * (ABNORMAL) Basic metabolic panel (06/07/2024 10:48 AM EST) Sodium 137 133 - 145 mmol/L LAB CHEMISTRY METHOD 06/07/2024 12:53 PM [facility] Potassium 3.6 3.5 - 5.5 mmol/L LAB CHEMISTRY METHOD 06/07/2024 12:53 PM [facility] Chloride 103 96 - 110 mmol/L LAB CHEMISTRY METHOD 06/07/2024 12:53 PM [facility] CO2 25 21 - 32 mmol/L LAB CHEMISTRY METHOD 06/07/2024 12:53 PM [facility] Anion Gap 9 3 - 11 LAB CHEMISTRY METHOD 06/07/2024 12:53 PM [facility] Glucose 142(H) 70 - 100 mg/dL LAB CHEMISTRY METHOD 06/07/2024 12:53 PM [facility] BUN 9 5 - 25 mg/dL LAB CHEMISTRY METHOD 06/07/2024 12:53 PM [facility] Creatinine 0.58(L) 0.70 - 1.30 mg/dL LAB CHEMISTRY METHOD 06/07/2024 12:53 PM [facility] eGFR 108 >=60 mL/min/1. 73m2 LAB CHEMISTRY METHOD 06/07/2024 12:53 PM [facility] Comment:Calculation based on the??Chronic Kidney Disease Epidemiology Collaboration (CKD-EPI) equation refit??without adjustment for race. BUN/Creatinine Ratio 15.5 LAB CHEMISTRY METHOD 06/07/2024 12:53 PM [facility] Calcium 8.0(L) 8.5 - 10.5 mg/dL LAB CHEMISTRY METHOD 06/07/2024 12:53 PM [facility] Blood Venous blood specimen / Unknown Venipuncture / Unknown 06/07/2024 10:48 AM EST 06/07/2024 12:01 PM EST Gerry Barksdale LAB BLOOD ORDERABLES Final Resul t [facility] [address] [place] [address], * (ABNORMAL) Complete blood count (06/07/2024 10:48 AM EST) WBC 4.4(L) 4.8 - 10.8 K/mcL LAB HEMETOLOGY METHOD 06/07/2024 1:06 PM [facility] RBC 3.40(L) 4.50 - 5.50 M/mcL LAB HEMETOLOGY METHOD 06/07/2024 1:06 PM [facility] Hemoglobin 12.0(L) 13.5 - 17.5 g/dL LAB HEMETOLOGY METHOD 06/07/2024 1:06 PM [facility] Hematocrit 36.4(L) 42.0 - 54.0 % LAB HEMETOLOGY METHOD 06/07/2024 1:06 PM [facility] MCV 105.8(H) 79.0 - 98.0 FL LAB HEMETOLOGY METHOD 06/07/2024 1:06 PM [facility] MCH 34.9(H) 27.0 - 32.0 pcg LAB HEMETOLOGY METHOD 06/07/2024 1:06 PM EST [facility] MCHC 33.0 32.0 - 37.0 g/dL LAB HEMETOLOGY METHOD 06/07/2024 1:06 PM [facility] RDW 18.0(H) 11.0 - 15.0 % LAB HEMETOLOGY METHOD 06/07/2024 1:06 PM [facility] Platelets 108(L) 130 - 400 K/mcL LAB HEMETOLOGY METHOD 06/07/2024 1:06 PM EST [facility] MPV 10.7 7.0 - 11.0 FL LAB HEMETOLOGY METHOD 06/07/2024 1:06 PM [facility] NRBC 0.0 <1.0 % LAB HEMETOLOGY METHOD 06/07/2024 1:06 PM [facility] NRBC Absolute 0.00 <0.10 K/mcL LAB HEMETOLOGY METHOD 06/07/2024 1:06 PM [facility] Blood Venous blood specimen / Unknown Venipuncture / Unknown 06/07/2024 10:48 AM EST 06/07/2024 12:01 PM EST Gerry Barksdale LAB BLOOD ORDERABLES Final Resul t [facility] [address] [place] [address], documented in this encounter Visit Diagnoses Diagnosis Sepsis, unspecified organism (CMS/HCC) documented in this encounter Care Teams Outpatient Facility Physical Therapist Relationship Specialty Start Date End Date Dalia Harmon PA [address] [facility], [address] [place] [address] PCP - General 05/10/24 documented as of this encounter
--- OUTSIDE RECORDS SUMMARY | 2024-07-27 17:03 | XMS_ITS | Encounter Summary ---
Author Organization [facility] Address [address] [place] [address] Care Team Providers Care Clinical Liaison Name Role Phone Dalia Harmon Primary Care Provider [phone] Encounter Details Date Type Department Care Team (Late st Contact Info) Description 05/28/2024 Lab Requisition [facility] - Main Lab [address] [facility] [place] [phone] Gerry Barksdale [address] [facility] [address] [place] [address] Sepsis, unspecified organism (CMS/HCC) Social [...] 9:10 AM EDT Office Visit Gastroenterology - [place] [address] [place] [address] Han Sloan DO [address] [place] [address] documented as of this encounter Procedures Procedure [...] [place] LAB BLOOD ORDERABLES Final Resul t [facility] [address] [place] [address], * (ABNORMAL) Complete blood count (05/31/2024 8:09 [...] [place] LAB HEMETOLOGY METHOD 05/31/2024 10:28 AM [facility] MCH 34.2(H) 27.0 - 32.0 pcg LAB HEMETOLOGY METHOD 05/31/2024 10:28 AM EST [facility] MCHC 32.4 32.0 - 37.0 g/dL LAB HEMETOLOGY METHOD 05/31/2024 10:28 AM [facility] RDW 17.1(H) 11.0 - 15.0 % LAB HEMETOLOGY METHOD 05/31/2024 10:28 AM [facility] Platelets 149 130 - 400 K/mcL LAB HEMETOLOGY METHOD 05/31/2024 10:28 AM [facility] MPV 10.5 7.0 - 11.0 FL LAB HEMETOLOGY METHOD 05/31/2024 10:28 AM [facility] NRBC 0.0 <1.0 % LAB HEMETOLOGY METHOD 05/31/2024 10:28 AM [facility] NRBC Absolute 0.00 <0.10 K/mcL LAB HEMETOLOGY METHOD 05/31/2024 10:28 AM [facility] Blood Venous blood specimen / Unknown Venipuncture / Unknown 05/31/2024 8:09 AM EST 05/31/2024 9:53 AM EST Gerry [facility]ksdale LAB BLOOD ORDERABLES Final Resul t [facility] [address] [place] [address], documented in this encounter Visit Diagnoses Diagnosis Sepsis, unspecified organism (CMS/HCC) documented in this encounter Care Teams Clinical Liaison Relationship Specialty Start Date End Date Dalia Harmon PA [address], [address] [place] [address] PCP - General 05/10/24 documented as of this encounter
--- OUTSIDE RECORDS SUMMARY | 2024-07-27 17:03 | XMS_ITS | Encounter Summary ---
Author Organization [facility] Address [address] [place] [address] Care Team Providers Care Vice President Quality Name Role Phone Dalia Harmon Primary Care Provider [phone] Reason for Visit * Reason Onset Date Comments provider call back 07/26/2024 Encounter Details Date Type Department Care Team (Late st Contact Info) Description 07/26/2024 Telephone Gastroenterology - [place] [address] [place] [phone] Han Sloan DO [address] [place] [address] provider call back Social History Tobacco Use [...] documented in this encounter Progress Notes * Nayeli So - 07/26/2024 3:26 PM EDT Patient has procedure to adjust the stents put in 08/06 and is requesting a call back from Dr Sloan himself to go over medications that he should & should not be taking prior. Please advise. documented in this encounter Plan of Treatment Upcoming Encounters Date Type Department Care Team (Late st Contact Info) Description 09/02/2024 9:10 AM EDT Office Visit Gastroenterology - [place] [address] [place] [phone] Han Sloan DO [address] [place] [address] documented as of this encounter Visit Diagnoses Not on filedocumented in this encounter Care Teams Vice President Quality Relationship Specialty Start Date End Date Dalia Harmon PA [address] [place] [address], [address] [place] [address] PCP - General 05/10/24 documented as of this encounter
--- OUTSIDE RECORDS SUMMARY | 2024-07-27 17:03 | XMS_ITS | Encounter Summary ---
Author Organization [facility] [address] Address [address] [place] [address] Care Team Providers Care Hyperion Essbase Developer Name Role Phone Dalia Harmon Primary Care Provider [phone] Encounter Details Date Type Department Care Team (Late st Contact Info) Description 03/12/2024 Lab Requisition [facility] - Main Lab [address] [facility] [place] [phone] Gerry Barksdale [address] [place] [address] [address] [place] [address] Essential (primary) hypertension Social History [...] 9:10 AM EDT Office Visit Gastroenterology - [place] [address] [place] [address] Han Sloan DO [address] [facility] [address] [place] [address] documented as of this encounter Visit Diagnoses Diagnosis Essential (primary) hypertension Unspecified essential hypertension documented in this encounter Care Teams Hyper[employer] Essbase Developer Relationship Specialty Start Date End Date Dalia Harmon PA [address] [place] [address], [address] [place] [address] PCP - General 05/10/24 documented as of this encounter
--- OUTSIDE RECORDS SUMMARY | 2024-07-27 17:03 | XMS_ITS | Clinical Summary ---
Author Organization [facility] Address [address] [place] [phone] Phone Care Team Providers Care Collar Stay Fuser Tender Name Role Phone Dalia Harmon Primary Care Provider [phone] Allergies Active Allergy Reactions Criticality Noted Date [...] mouth 1 (one) time each day. Active tamsulosin (FLOMAX) 0.4 mg 24 hr capsule Take 1 capsule (0.4 mg total) by mouth 1 (one) time each day. Active oxyBUTYnin XL (DITROPAN-XL) 5 mg 24 hr tablet Take 1 tablet (5 mg total) by mouth 1 (one) time each day. 025 Active apixaban (ELIQUIS) 5 mg tablet Take [...] each day. 30 each 025 2024 Active furosemide (LASIX) 20 mg tablet Take 2 tablets in the morning at 8 AM and 1 tablet in afternoon at 3 PM 90 each 1 025 Active oxyCODONE (OXY-IR) 5 mg immediate release capsule Take 2 capsules (10 mg total) by mouth every 4 (four) hours if needed for severe pain. Max Daily Amount: 60 mg 15 capsule 024 2024 Discontinued(T herapy completed) spironolactone (ALDACTONE) 100 mg tablet Take 1.5 tablets (150 mg total) by mouth 1 (one) time each day. 45 each 025 2024 Discontinued furosemide (LASIX) 20 mg tablet Take 2 tablets in the morning at 8 AM and 1 tablet in afternoon at 3 PM 90 each 025 2024 Discontinued(R eorder) oxyCODONE (ROXICODONE) 10 mg immediate release tablet Take 1 tablet (10 mg total) by mouth every 4 (four) hours if needed for severe pain. 2024 Discontinued(T herapy completed) furosemide (LASIX) 40 mg tablet Take 1 tablet (40 mg total) by mouth 1 (one) time each day in the morning. 2024 Discontinued(R eorder) furosemide (LASIX) 40 mg tablet Take 1 tablet (40 mg total) by mouth 1 (one) time each day in the morning. 30 each 2 025 2024 Discontinued(S top Taking at Discharge) furosemide (LASIX) 40 mg tablet Take 1 tablet (40 mg total) by mouth 1 (one) time each day. 2024 Discontinued(T herapy completed) Active Problems Problem Noted Date Diagnosed Date Personal history of portal hypertension 07/07/19 Pseudomonal bacteremia 06/13/2024 Severe sepsis 05/19/2024 Candidal intertrigo 03/01/2024 Anasarca 02/26/2024 Lymphedema 08/01/2022 Thrombocytopenia 08/01/2022 Overview (12/25/2023): Related to iron overload syndrome per prior records COPD (chronic obstructive pulmonary disease) Avascular necrosis of bone of hip, left 06/26/19 Overview (12/25/2023): [facility] recommended weight loss prior to elective hip arthroplasty of left hip Was seen by [facility] who concurred with this Insomnia 04/13/2018 Chronic allergic conjunctivitis 04/13/2018 Anxiety 04/13/2018 Esophageal varices 12/03/2017 Hemochromatosis 12/03/2017 Overview (12/25/2023): 2 heterozygous gene mutations were found and recommended [id number] therapeutic phlebotomy. Follows with GI. Liver cirrhosis secondary to CASTANEDA (nonalcoholic steatohepatitis) 12/03/2017 Erosive gastritis 10/13/2017 Obstructive sleep apnea 05/21/2016 Overview (12/25/2023): On CPAP Hypertension 12/14/2014 Hyperlipidemia 12/12/2014 Diabetes mellitus type 2 with neurological manif estations 12/12/2014 Depression with anxiety 12/12/2014 Benign colonic polyp 12/12/2014 Vitamin D deficiency 07/27/2012 Internal hemorrhoids 07/27/2010 Diverticulosis 05/29/2010 Encounters Date Type Department Care Team Description 07/26/2024 Telephone Gastroenterology [facility] [address] [facility] [address] [place] [address] Han Sloan DO provider call back 07/16/2024 Telephone Gastroenterology [facility] [address] [phone] Han Sloan DO 07/06/2024 3:56 PM EDT - 07/07/2024 12:46 PM EDT Hospital Encounter [facility] Intermediate Care Unit [address] [place] [phone] Rosaura Iglesias MD Kela, Kashyap Devendrabhai, MD Abrokwah, Foster Myles G, CRNA Freeman, Katharine O, MD Personal history of portal hypertension (Primary Dx); Esophageal varices without bleeding, unspecified esophageal varices type (CMS/HCC); Liver cirrhosis secondary to CASTANEDA (nonalcoholic steatohepatitis) (CMS/HCC) Discharge Disposition: Home-Health Care [facility] 07/06/2024 2:08 PM EDT Anesthesia Event [facility] Interventional Radiology [address] [place] [phone] Paul Alfaro DO 07/05/2024 Telephone Gastroenterology [facility] 175 [facility] [address] [phone] Han Sloan DO 06/29/2024 [facility] [address] [phone] Han Sloan DO Appointment (Upcoming Echo) 06/24/2024 11:20 AM EST Office Visit Gastroenterology [facility] [address] [phone] Han Sloan DO Cirrhosis of liver with ascites, unspecified hepatic cirrhosis type (CMS/HCC) (Primary Dx); Other ascites; Deep vein thrombosis of portal vein 06/18/2024 Lab Requisition [facility] - Main Lab [address] [facility] [place] [address] Gerry Barksdale Sepsis, unspecified organism (CMS/HCC) 06/14/2024 Telephone Gastroenterology [facility] [address] [phone] Han Sloan DO provider call back 06/13/2024 12:02 PM EST - 06/16/2024 2:30 PM EST Hospital Encounter [facility] Medical Surgical Unit [address] [place] [phone] Barak Benjamin MD Flores, Carlos M, MD Kela, Kashyap Devendrabhai, MD Mohani, Priya, MD Bacteremia (Primary Dx); Cuello catheter in place; Urinary tract infection associated with indwelling urethral catheter, initial encounter ([facility]); Hx of ascites; Anasarca Discharge Disposition: Home-Health Care [facility] 06/11/2024 10:01 PM EST - 06/12/2024 12:[address] [facility] Emergency [address] [place] [phone] Barak Benjamin MD Gross hematuria (Primary Dx); Tachycardia; Abnormal chest CT Discharge Disposition: Home or Self Care 06/04/2024 Lab Requisition [facility] - Main Lab [address] [place] [phone] Gerry Barksdale Sepsis, unspecified organism ([facility]) 06/03/2024 Telephone Gastroenterology [facility] 175 [facility] [address] [phone] Han Sloan DO TESTING 05/28/2024 Lab Requisition [facility] - [facility] Lab [address] [place] [phone] Gerry Barksdale Sepsis, unspecified organism ([facility]) 05/26/2024 Lab Requisition [facility] Lab [address] [place] [phone] Gerry Barksdale Weakness; Urinary tract infection, site not specified 05/25/2024 Telephone Gastroenterology [facility] 175 [facility] [address] [phone] Han Sloan DO 05/24/2024 Telephone Gastroenterology [facility] 175 [facility] [address] [phone] Han Sloan DO provider call back 05/19/2024 3:40 PM EST - 05/25/2024 4:38 PM EST Hospital Encounter [facility] Medical Surgical Unit [address] [place] [phone] Emily Singh DO Bukalo, Nermina, MD Nasser, Nada S, MD Kela, Kashyap Devendrabhai, MD Bilateral leg edema (Primary Dx); Urinary tract infection without hematuria, site unspecified; Hepatic cirrhosis, unspecified hepatic cirrhosis type, unspecified whether ascites present (CMS/HCC); Cellulitis of left leg; Severe sepsis (CMS/HCC) Discharge Disposition: Senior Living Facility 05/12/2024 9:15 AM EST - 05/12/2024 11:59 PM EST Hospital Encounter [facility] CT Scan [address] [place] [phone] Decompensated cirrhosis (CMS/HCC); 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); Urinary retention Discharge Disposition: Home or Self Care 05/11/2024 10:27 AM EST - 05/11/2024 11:59 PM EST Hospital Encounter [facility] Ultrasound [address] [place] [phone] 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) Discharge Disposition: Home or Self Care 05/10/2024 Telephone Internal Medicine - [facility] [address] [facility] [place] [phone] Em Dixon DO Faxed Order (Silvia FULTON) 05/05/2024 Telephone Gastroenterology [facility] 175 [facility] 175 [facility] [address] [place] [phone] Han Sloan DO from Last 3 Months Surgical History Surgery Date Site/Laterality Comments BACK SURGERY PROCEDURE: HISTORICAL BACK SURGERY; COMMENT: spinal diskectomy, osteophytectomy x4 ESOPHAGOGASTRODUODENOSCOPY PROCEDURE: NV ESOPHAGOGASTRODUODENOSCOPY TRANSORAL DIAGNOSTIC COLONOSCOPY N/A PROCEDURE: HISTORICAL COLONOSCOPY OTHER SURGICAL HISTORY Right PROCEDURE: NV STAB PHLEBT VARICOSE VEINS 1 XTR > [...] Brother x2 Other: other Father cancer from [facility] estos Heart attack Grandparent maternal Obesity [...] 9:10 AM EDT Office Visit Gastroenterology - [place] [address] [place] [phone] Han Sloan DO [address] [place] [address] Health Maintenance Due Date Last Done Comments Diabetes: Annual Foot Exam 01/24/1968 Diabetes: Annual Retina Eye Exam 01/24/1968 Hepatitis A Vaccines (1 of 2 - Risk 2-dose series) 1977 Zoster Vaccines (1 of 2) 01/24/2008 Hepatitis B Vaccines (1 of 3 - Risk 3-dose series) 2018 RSV Immunization Adult Patients (1 - Risk 60-74 years 1-dose series) 2018 Abdominal Aortic Aneurysm (AAA) Screen 03/30/2022 Cholesterol Screening (Lipid Panel) 03/30/2022 Depression Screening 03/30/2022 Hepatitis C Screening 03/30/2022 Medicare Annual Wellness Visit 03/30/2022 Social Influencers of Health Screening 03/30/2022 Diabetes: Annual Urine Albumin-Creatinine Ratio (uACR) 04/05/2022 COVID-19 Vaccine ( season) 2023 05/07/2023, 02/11/2022, 05/16/2021, Additional history exists Diabetes: Blood Sugar Control Test (HGBA1C) 11/18/2024 05/21/2024, 03/04/2024, 11/17/2023 Influenza Vaccine (Season Ended) 2024 05/06/2023, 02/21/2021, 01/06/2020, Additional history exists Falls Risk Assessment 07/06/2025 07/06/2024 Diabetes: Annual [...] age to complete this topic Meningococcal B Vaccine Aged Out No l onger eligible based on patient's age to complete this topic RSV Immunization Patients Under 20 months Aged Out No longer eligible based on patient's age to complete this topic Varicella Vaccines Aged Out No longer eligible based on patient's age to complete this topic Medical Devices Implanted Type Area [employer] Loader Device Identifier Shelf Expiration Date Model / Serial / Lot Stent Viatorr 8-10mmx8/2cm - [id number] - [id number] Implanted:Qty: 1 on 07/06/2024 by Paul Bonner MD at [facility] Peripheral Vasc Drug Eluting Stents Right: Liver [employer] [id number] 05/20/2026 [id number] / [id number] / Stent Viatorr 8-10mmx8/2cm - [id number] - [id number] Implanted:Qty: 1 on 07/06/2024 by Paul Bonner MD at [facility] Peripheral Vasc Drug Eluting Stents Right: Liver [employer] [id number] 03/29/2027 [id number] 75 / [id number] / Procedures Procedure Name Priority Date/Time Associated [...] LAB COAGULATION METHOD 07/07/2024 12:17 PM EDT [facility] Blood Venous blood specimen / Unknown Venipuncture / Unknown 07/07/2024 11:15 AM EDT 07/07/2024 11:55 AM EDT us Annie RAND LAB BLOOD ORDERABLES Final Result [facility] [address] [place] [address], [place] [phone] * (ABNORMAL) Complete blood count (07/07/2024 6:20 AM EDT) Only the most recent of9 resultswithin the time period is included. [facility] Signature WBC 5.0 4.8 - 10.8 K/mcL LAB HEMETOLOGY METHOD 07/07/2024 7:19 AM [facility] RBC 3.60(L) 4.50 - 5.50 M/mcL LAB HEMETOLOGY METHOD 07/07/2024 7:19 AM [facility] Hemoglobin 12.7(L) 13.5 - 17.5 g/dL LAB HEMETOLOGY METHOD 07/07/2024 7:19 AM [facility] Hematocrit 38.0(L) 42.0 - 54.0 % LAB HEMETOLOGY METHOD 07/07/2024 7:19 AM [facility] MCV 104.4(H) 79.0 - 98.0 FL LAB HEMETOLOGY METHOD 07/07/2024 7:19 AM [facility] MCH 34.9(H) 27.0 - 32.0 pcg LAB HEMETOLOGY METHOD 07/07/2024 7:19 AM [facility] MCHC 33.4 32.0 - 37.0 g/dL LAB HEMETOLOGY METHOD 07/07/2024 7:19 AM [facility] RDW 15.3(H) 11.0 - 15.0 % LAB HEMETOLOGY METHOD 07/07/2024 7:19 AM [facility] Platelets 98(L) 130 - 400 K/mcL LAB HEMETOLOGY METHOD 07/07/2024 7:19 AM [facility] Comment:previously verified by slide MPV 10.6 7.0 - 11.0 FL LAB HEMETOLOGY METHOD 07/07/2024 7:19 AM [facility] NRBC 0.0 <1.0 % LAB HEMETOLOGY METHOD 07/07/2024 7:19 AM EDT [facility] NRBC Absolute 0.00 <0.10 K/mcL LAB HEMETOLOGY METHOD 07/07/2024 7:19 AM EDT [facility] Blood Venous blood specimen / Unknown Venipuncture / Unknown 07/07/2024 6:20 AM EDT 07/07/2024 6:57 AM EDT Paola RAND LAB BLOOD ORDERABLES Final Resu lt Performing Organization Address City/[facility]/ZIP Co de Phone Number [facility] [address] [place] [address], [place] [phone] * Magnesium (07/07/2024 6:20 AM EDT) Only the most recent of8 resultswithin the time period is included. Magnesium 2.3 1.9 - 2.6 mg/dL LAB CHEMISTRY METHOD 07/07/2024 7:39 AM EDT [facility] Blood Venous blood specimen / Unknown Venipuncture / Unknown 07/07/2024 6:20 AM EDT 07/07/2024 6:55 AM EDT us Paola RAND LAB BLOOD ORDERABLES Final Resu lt Performing Organization Address [facility]/ZIP Co de Phone Number [facility] [address] [place] [address], [place] [phone] * (ABNORMAL) Comprehensive metabolic panel (07/07/2024 6:20 AM EDT) Only the most recent of4 resultswithin the time period is included. Sodium 130(L) 133 - 145 mmol/L LAB CHEMISTRY METHOD 07/07/2024 8:12 AM EDT [facility] Potassium 5.4 3.5 - 5.5 mmol/L LAB CHEMISTRY METHOD 07/07/2024 8:12 AM EDT [facility] Chloride 97 96 - 110 mmol/L LAB CHEMISTRY METHOD 07/07/2024 8:12 AM [facility] CO2 27 21 - 32 mmol/L LAB CHEMISTRY METHOD 07/07/2024 8:12 AM [facility] Anion Gap 6 3 - 11 LAB CHEMISTRY METHOD 07/07/2024 8:12 AM [facility] Glucose 153(H) 70 - 100 mg/dL LAB CHEMISTRY METHOD 07/07/2024 8:12 AM [facility] BUN 10 5 - 25 mg/dL LAB CHEMISTRY METHOD 07/07/2024 8:12 AM [facility] Creatinine 0.62(L) 0.70 - 1.30 mg/dL LAB CHEMISTRY METHOD 07/07/2024 8:12 AM [facility] eGFR 105 >=60 mL/min/1. 73m2 LAB CHEMISTRY METHOD 07/07/2024 8:12 AM [facility] Comment:Calculation based on the??Chronic Kidney Disease Epidemiology Collaboration (CKD-EPI) equation refit??without adjustment for race. BUN/Creatinine Ratio 16.1 LAB CHEMISTRY METHOD 07/07/2024 8:12 AM [facility] Calcium 8.4(L) 8.5 - 10.5 mg/dL LAB CHEMISTRY METHOD 07/07/2024 8:12 AM [facility] AST (SGOT) 67(H) 10 - 42 unit/L LAB CHEMISTRY METHOD 07/07/2024 8:12 AM [facility] Comment:Results verified by repeat testing ALT (SGPT) 39 10 - 60 unit/L LAB CHEMISTRY METHOD 07/07/2024 8:12 AM [facility] Comment:Results verified by repeat testing Alkaline Phosphatase 167(H) 42 - 121 unit/L LAB CHEMISTRY METHOD 07/07/2024 8:12 AM [facility] Total Protein 5.9(L) 6.0 - 8.0 g/dL LAB CHEMISTRY METHOD 07/07/2024 8:12 AM EDT [facility] Albumin 2.4(L) 3.2 - 5.0 g/dL LAB CHEMISTRY METHOD 07/07/2024 8:12 AM EDT [facility] Total Bilirubin 3.8(H) 0.0 - 1.4 mg/dL LAB CHEMISTRY METHOD 07/07/2024 8:12 AM EDT [facility] Blood Venous blood specimen / Unknown Venipuncture / Unknown 07/07/2024 6:20 AM EDT 07/07/2024 6:55 AM EDT us Paola RAND LAB BLOOD ORDERABLES Final Resu lt Performing Organization Address City/[facility]/ZIP Co de Phone Number [facility] [address] [place] [address], [place] [phone] * (ABNORMAL) POCT Glucose, blood (07/06/2024 5:56 PM EDT) Only the most recent of2 resultswithin the time period is included. [facility] Glucose POCT 141(H) 70 - 100 mg/dL 07/06/2024 5:57 PM EDT [facility] Blood Capillary blood specimen / Unknown 07/06/2024 5:56 PM EDT 07/06/2024 5:58 PM EDT Rosaura Iglesias MD LAB POINT OF CARE TE ST DOCKED DEVICE UNSOLICITED RESULTS Final Result Performing Organization Address City/[facility]/ZIP Co de Phone Number [facility] [address] [place] [address], [place] [phone] * IR Insert Hepatic Shunt TIPS (07/06/2024 [...] Signed Date: 07/06/2024 17:22 ET Workstation ID: [id number] Transcribed By: Self Edit Transcribed Date: 07/06/2024 [...] and a 0.035 guidewire was inserted. ??A 10-Iranian by 45 cm check flow sheath was inserted and advanced to the IVC. ??A 5-Iranian MPA catheter was then used to catheterize the right hepatic vein. ??Venogram confirms position in the hepatic vein. ??The 10-Iranian by 45 cm sheath was advanced over [...] with an 6 mm x 6 cm PAPER STRIPPER balloon. ??The sheath was then advanced into [...] and a 0.035 guidewire was inserted. A 10-Iranian by45 cm check flow sheath was inserted and advanced to the IVC. A 5-FrenchMPA catheter was then used to catheterize the right hepatic vein.Venogram confirms position in the hepatic vein. The 10-Iranian by 45 cmsheath was advanced over the catheter into the right hepatic vein. TheSlideion TIPS set was then introduced through the [...] dilatedwith an 6 mm x 6 cm PAPER STRIPPER balloon. The sheath was then advanced into [...] Signed Date: 07/06/2024 17:22 ET Workstation ID: [id number] Transcribed By: Self Edit Transcribed Date: 07/06/2024 17:09 ET us Job nAderson MD IMG IR PROCEDURES Final Re sult * TH AN ENDOTRACHEAL(NO CHARGE) (07/06/2024 3:00 PM EDT) Narrative Yovanny Mendez CRNA - 07/06/2024 3:00 PM EDT Yovanny Mendez CRNA ? 07/06/2024 ??3:01 PM General Information and Staff Patient location during procedure: [place] Resident/[employer] DRIVER: Yovanny Mendez CRNA Performed: resident/[employer] DRIVER/CAA Performed by: Yovanny Mendez CRNA Authorized by: [...] LINE (CHARGE) (07/06/2024 2:49 PM EDT) Narrative Yovnany Mendez CRNA - 07/06/2024 2:49 PM EDT [...] LAB COAGULATION METHOD 07/06/2024 2:28 PM EDT [facility] INR 1.3 LAB COAGULATION METHOD 07/06/2024 2:28 PM EDT [facility] Blood Venous blood specimen / Unknown 07/06/2024 1:45 PM EDT 07/06/2024 1:55 PM EDT us Paul Bonner MD LAB BLOOD ORDERABLES Final Resu lt Performing Organization Address [facility]/ZIP Co de Phone Number [facility] [address] [place] [address], [place] [phone] * Type and screen (07/06/2024 1:45 PM EDT) Pathologist [facility] ABO Group B 07/06/2024 2:47 PM EDT [facility] Rh Type Positive 07/06/2024 2:47 PM EDT [facility] Antibody Screen Negative 07/06/2024 2:47 PM EDT [facility] Blood Venous blood specimen / Unknown 07/06/2024 1:45 PM EDT 07/06/2024 1:55 PM EDT us Paul Alfaro DO LAB BLOOD BANK TEST ORDERABLES Final Result Performing Organization Address [facility]/ZIP Co de Phone Number [facility] [address] [place] [address], [place] [phone] * (ABNORMAL) Basic metabolic panel (07/06/2024 1:45 PM EDT) Only the most recent of13 resultswithin the time period is included. Sodium 135 133 - 145 mmol/L LAB CHEMISTRY METHOD 07/06/2024 2:21 PM EDT [facility] Potassium 5.0 3.5 - 5.5 mmol/L LAB CHEMISTRY METHOD 07/06/2024 2:21 PM EDT [facility] Comment:Hemolysis present Chloride 100 96 - 110 mmol/L LAB CHEMISTRY METHOD 07/06/2024 2:21 PM [facility] CO2 25 21 - 32 mmol/L LAB CHEMISTRY METHOD 07/06/2024 2:21 PM [facility] Anion Gap 10 3 - 11 LAB CHEMISTRY METHOD 07/06/2024 2:21 PM [facility] Glucose 161(H) 70 - 100 mg/dL LAB CHEMISTRY METHOD 07/06/2024 2:21 PM [facility] BUN 8 5 - 25 mg/dL LAB CHEMISTRY METHOD 07/06/2024 2:21 PM [facility] Creatinine 0.70 0.70 - 1.30 mg/dL LAB CHEMISTRY METHOD 07/06/2024 2:21 PM [facility] eGFR 102 >=60 mL/min/1. 73m2 LAB CHEMISTRY METHOD 07/06/2024 2:21 PM T [facility] Comment:Calculation based on the??Chronic Kidney Disease Epidemiology Collaboration (CKD-EPI) equation refit??without adjustment for race. BUN/Creatinine Ratio 11.4 LAB CHEMISTRY METHOD 07/06/2024 2:21 PM [facility] Calcium 8.7 8.5 - 10.5 mg/dL LAB CHEMISTRY METHOD 07/06/2024 2:21 PM T [facility] Blood Venous blood specimen / Unknown 07/06/2024 1:45 PM EDT 07/06/2024 1:55 PM EDT us Paul Bonner MD LAB BLOOD ORDERABLES Final Resu lt [facility] [address] [place] [address], [place] [phone] * (ABNORMAL) TRANSTHORACIC ECHOCARDIOGRAM (TTE) COMPLETE W/ CONTRAST (06/15/2024 2:35 PM EST) Left Atrium Major [place] 5.9 cm CV PACS LA Area Sys [...] in a supine position and lung artifact. us Liang Reinoso MD CV ECHO PROCEDURES Final Result * ECG 12 lead (06/15/2024 12:53 PM EST) Only the most recent of4 resultswithin the time period is included. Ventricular Rate ECG 85 BPM GEMUSE Atrial Rate 85 BPM GEMUSE P-R Interval 126 ms GEMUSE QRS Duration 130 ms GEMUSE Q-T Interval 408 ms GEMUSE QTc 485 ms GEMUSE P Wave [place] 28 degrees GEMUSE R [place] -36 degrees GEMUSE T [place] 29 degrees GEMUSE ECG Interpretation Normal sinus rhythm Left axis deviation Right bundle branch block Abnormal ECG When compared with ECG of 12-JUN-2024 03:57, No significant change was found Confirmed by MD Felix, [place] ([id number]) on 06/15/2024 5:37:07 PM GEMUSE 06/15/2024 12:5 3 PM EST 06/15/2024 5:37 PM EST us Liang Reinoso MD ECG ORDERABLES Fin al Result GEMUSE * Phosphorus (06/15/2024 6:38 AM EST) Only the most recent of5 resultswithin the time period is included. Pathologist [facility] Phosphorus 3.0 2.5 - 4.5 mg/dL LAB CHEMISTRY METHOD 06/15/2024 7:50 AM EST [facility] Blood Venous blood specimen / Unknown Venipuncture / Unknown 06/15/2024 6:38 AM EST 06/15/2024 7:06 AM EST us Liang Reinoso MD LAB BLOOD ORDERABLE S Final Result Performing Organization Address [facility] Co de Phone Number [facility] [address] [place] [address], [place] [phone] * Cell count with reflex differential, body fluid (06/14/2024 10:19 AM EST) Only the most recent of2 resultswithin the time period is included. Body Fluid Total Nucleated Cells 218 /mm3 LAB HEMETOLOGY METHOD 06/14/2024 11:38 AM EST [facility] Body Fluid RBC 1,000 /mm3 LAB HEMETOLOGY METHOD 06/14/2024 11:38 AM EST [facility] Body Fluid Color Yellow 06/14/2024 11:38 AM EST [facility] Body Fluid Clarity Clear 06/14/2024 11:38 AM EST [facility] Body Fluid Source Peritoneal 06/14/2024 11:38 AM [facility] Peritoneal Fluid Peritoneal cavity structure / Unknown Non-blood Collection / Unknown 06/14/2024 10:19 AM EST 06/14/2024 10:27 AM EST Narrative [facility] - 06/14/2024 11:38 AM EST No reference ranges have been established for body fluids. Clinical correlation recommended. Cristiana RAND LAB BODY FLUIDS AND STO OLS ORDERABLES Final Result Performing Organization Address City/[facility]/ZIP Co de Phone Number [facility] [address] [place] [address], [place] [phone] * Culture body fluid with gram stain (06/14/2024 10:19 AM EST) Fluid Culture No growth at 3 days LAB MICROBIOLOGY METHOD 06/17/2024 11:25 AM EST [facility] Gram Stain Result No polymorphonuclear leukocytes, No epithelial cells, and No organisms noted 06/17/2024 11:25 AM EST [facility] Peritoneal Fluid Peritoneal cavity structure / Unknown Non-blood Collection / Unknown 06/14/2024 10:19 AM EST 06/14/2024 10:26 AM EST Cristiana RAND LAB MICROBIOLOGY - GENE RAL ORDERABLES Final Result Performing Organization Address [facility]/ZIP Co de Phone Number [facility] [address] [place] [address], [place] [phone] * Differential body fluid (06/14/2024 10:19 AM EST) Only the most recent of2 resultswithin the time period is included. Fluid Neutrophils % 4 % 06/14/2024 11:38 AM [facility] Fluid Lymphocytes % 74 % 06/14/2024 11:38 AM EST [facility] Fluid Monocytes/Macrop hages 22 % 06/14/2024 11:38 AM EST [facility] Fluid Eosinophils % 0 % 06/14/2024 11:38 AM EST [facility] Fluid Basophils % 0 % 06/14/2024 11:38 AM [facility] Fluid Other Cells % 0 % 06/14/2024 11:38 AM EST [facility] Peritoneal Fluid Peritoneal cavity structure / Unknown Non-blood Collection / Unknown 06/14/2024 10:19 AM EST 06/14/2024 10:27 AM EST Narrative [facility] - 06/14/2024 11:38 AM EST No reference ranges have been established for body fluids. Clinical correlation recommended. Cristiana RAND LAB BODY FLUIDS AND STO OLS ORDERABLES Final Result Performing Organization Address City/[facility]/ZIP Co de Phone Number [facility] [address] [place] [address], * Culture fungal, other (06/14/2024 10:19 AM EST) Pathologist [facility] Culture, Fungus Negative for Fungus after 4 Weeks 07/12/2024 10:17 AM EDT [facility] Peritoneal Fluid Peritoneal cavity structure / Unknown Non-blood Collection / Unknown 06/14/2024 10:19 AM EST 06/14/2024 10:27 AM EST Cristiana RAND LAB MICROBIOLOGY - GENE RAL ORDERABLES Final Result Performing Organization Address [facility]/ZIP Co de Phone Number [facility] [address] [place] [address], [place] [phone] * Specific gravity, body fluid (06/14/2024 10:19 AM EST) [facility] Spec Grav, Fluid 1.014 06/14/2024 11:01 AM EST [facility] Peritoneal Fluid Non-blood Collection / Unknown 06/14/2024 10:19 AM EST 06/14/2024 10:26 AM EST Narrative [facility] - 06/14/2024 11:01 AM EST No reference ranges have been established for body fluids. Clinical correlation recommended. Cristiana RAND LAB BODY FLUIDS AND STO OLS ORDERABLES Final Result Performing Organization Address [facility]/ZIP Co de Phone Number [facility] [address] [place] [address], [place] [phone] * Protein, body fluid (06/14/2024 10:19 AM EST) Only the most recent of2 resultswithin the time period is included. [facility] Protein, Fluid 1.4 See Comment g/dL LAB CHEMISTRY METHOD 06/14/2024 11:19 AM EST [facility] Peritoneal Fluid Non-blood Collection / Unknown 06/14/2024 10:19 AM EST 06/14/2024 10:26 AM EST [facility] - 06/14/2024 11:19 AM EST No reference ranges have been established for body fluids. Clinical correlation recommended. Cristiana RAND LAB BODY FLUIDS AND STO OLS ORDERABLES Final Result Performing Organization Address [facility]/ZIP Co de Phone Number [facility] [address] [place] [address], [place] [phone] * Lactate dehydrogenase, body fluid (06/14/2024 10:19 AM EST) LD, Fluid 78 See Comment unit/L LAB CHEMISTRY METHOD 06/14/2024 11:42 AM EST [facility] Peritoneal Fluid Peritoneal cavity structure / Unknown Non-blood Collection / Unknown 06/14/2024 10:19 AM EST 06/14/2024 10:27 AM EST [facility] - 06/14/2024 11:42 AM EST No reference ranges have been established for body fluids. Clinical correlation recommended. Cristiana RAND LAB BODY FLUIDS AND STO OLS ORDERABLES Final Result Performing Organization Address [facility] Co de Phone Number [facility] [address] [place] [address], [place] [phone] * Glucose, body fluid (06/14/2024 10:19 AM EST) Glucose, Fluid 150 See Comment mg/dL LAB CHEMISTRY METHOD 06/14/2024 11:28 AM EST [facility] Ascites 06/14/2024 10:1 9 AM EST 06/14/2024 10:26 AM EST [facility] - 06/14/2024 11:28 AM EST No reference ranges have been established for body fluids. Clinical correlation recommended. us Cristiana RAND LAB BODY FLUIDS AND STO OLS ORDERABLES Final Result Performing Organization Address [facility] Co de Phone Number [facility] [address] [place] [address], [place] [phone] * Amylase, body fluid (06/14/2024 10:19 AM EST) Amylase, Fluid 24 See Comment unit/L LAB CHEMISTRY METHOD 06/14/2024 11:19 AM EST [facility] Peritoneal Fluid Non-blood Collection / Unknown 06/14/2024 10:19 AM EST 06/14/2024 10:26 AM EST Narrative [facility] - 06/14/2024 11:19 AM EST No reference ranges have been established for body fluids. Clinical correlation recommended. us Cristiana RAND LAB BODY FLUIDS AND STO OLS ORDERABLES Final Result Performing Organization Address [facility] de Phone Number [facility] [address] [place] [address], [place] [phone] * Albumin, body fluid (06/14/2024 10:19 AM EST) Only the most recent of2 resultswithin the time period is included. Albumin, Fluid 0.6 See Comment g/dL LAB CHEMISTRY METHOD 06/14/2024 11:19 AM EST [facility] Peritoneal Fluid Non-blood Collection / Unknown 06/14/2024 10:19 AM EST 06/14/2024 10:26 AM EST Narrative [facility] - 06/14/2024 11:19 AM EST No reference ranges have been established for body fluids. Clinical correlation recommended. us Cristiana RAND LAB BODY FLUIDS AND STO OLS ORDERABLES Final Result Performing Organization Address [facility]/ZIP Co de Phone Number [facility] [address] [place] [address], [place] [phone] * Non-gynecologic cytology (06/14/2024 10:19 AM EST) Final Diagnosis A. Peritoneal fluid, paracentesis, (ThinPrep, cell block): Negative for malignant cells. 06/17/2024 4:30 PM EST [facility] Specimen A Adequacy Satisfactory for evaluation 06/17/2024 4:30 PM EST [facility] Gross Description A. Peritoneal Cavity, : Received 115 ml of yellow fluid; 1 ThinPrep, 1 Cell block Cell block in formalin @1500; total formalin fixation time 6 hours. 06/17/2024 4:30 PM EST [facility] Disclaimer Unless otherwise specified, all tissue is 10% NB formalin fixed and paraffin embedded. Technical cytopathology services provided by [facility], at [address] [place] [id number] (CLIA # [id number]/Katya Lo MD, Hospice Community Liaison.) 06/17/2024 4:30 PM EST [facility] Peritoneal Fluid Peritoneal cavity structure / Unknown Non-blood Collection / Unknown 06/14/2024 10:19 AM EST 06/14/2024 2:30 PM EST us Cristiana RAND LAB CYTOLOGY ORDERABLES Final Result [facility] [address] [place] [address], [place] [phone] * [place] Paracentesis w Image Guidance (06/14/2024 [...] Signed Date: 06/15/2024 12:40 ET Workstation ID: [id number] Transcribed By: Self Edit Transcribed Date: 06/14/2024 11:29 ET Resident/PA/CEMENTING BULK MATERIAL OPERATOR: Milady Chilel Narrative 06/15/2024 12:40 PM [...] Signed Date: 06/15/2024 12:40 ET Workstation ID: [id number] Transcribed By: Self Edit Transcribed Date: 06/14/2024 11:29 ET Resident/PA/CEMENTING BULK MATERIAL OPERATOR: Milady Chilel Cristiana RAND IMG US PROCEDURES Final Result * Lactate, with reflex (06/14/2024 5:26 AM EST) Only the most recent of3 resultswithin the time period is included. LACTIC ACID 1.6 0.4 - 2.0 mmol/L LAB CHEMISTRY METHOD 06/14/2024 6:03 AM EST [facility] Blood Venous blood specimen / Unknown Venipuncture / Unknown 06/14/2024 5:26 AM EST 06/14/2024 5:33 AM EST Napoleon Neely MD LAB BLOOD ORDERABLES Final Re sult Performing Organization Address [facility] Co de Phone Number [facility] [address] [place] [address], [place] [phone] * Culture blood (06/14/2024 5:22 AM EST) Only the most recent of6 resultswithin the time period is included. Culture, Blood No growth at 5 days 06/19/2024 6:01 AM EST [facility] Blood Venous blood specimen / Unknown Venipuncture / Unknown 06/14/2024 5:22 AM EST 06/14/2024 5:33 AM EST us Napoleon Neely MD LAB MICROBIOLOGY - GENERAL OR DERABLES Final Result Performing Organization Address City/[facility]/ZIP Co de Phone Number [facility] [address] [place] [address], * (ABNORMAL) CBC auto differential (06/14/2024 5:14 AM EST) Only the most recent of5 resultswithin the time period is included. WBC 4.5(L) 4.8 - 10.8 K/mcL LAB HEMETOLOGY METHOD 06/14/2024 6:00 AM [facility] RBC 3.30(L) 4.50 - 5.50 M/mcL LAB HEMETOLOGY METHOD 06/14/2024 6:00 AM [facility] [...] LAB HEMETOLOGY METHOD 06/14/2024 6:00 AM EST [facility] Immature Granulocytes Absolute 0.01 0.00 - 0.03 K/mcL LAB HEMETOLOGY METHOD 06/14/2024 6:00 AM EST [facility] Blood Venous blood specimen / Unknown Venipuncture / Unknown 06/14/2024 5:14 AM EST 06/14/2024 5:34 AM EST Napoleon Neely MD LAB BLOOD ORDERABLES Final Re sult Performing Organization Address [facility]/ZIP Co de Phone Number [facility] [address] [place] [address], * ECG-Annotated (06/14/2024) Only the most recent of3 resultswithin the time period is included. Provider Onbase ECG ORDERABLES Final Result * Prostate specific antigen screen (06/13/2024 12:37 PM EST) PSA 0.18 0.00 - 4.00 ng/mL LAB CHEMISTRY METHOD 06/13/2024 2:31 PM EST [facility] Blood Venous blood specimen / Unknown Venipuncture / Unknown 06/13/2024 12:37 PM EST 06/13/2024 12:55 PM EST Narrative [facility] - 06/13/2024 2:31 PM EST The Siemens Advia Centaur Chemiluminescent Immunoassay is used. Results obtained with different assay methods or kits cannot be used interchangeably. Results cannot be interpreted as absolute evidence of the presence or absence of malignant disease. us Napoleon Neely MD LAB BLOOD ORDERABLES Final Re sult Performing Organization Address City/[facility]/ZIP Co de Phone Number [facility] [address] [place] [address], [place] [phone] * (ABNORMAL) C-reactive protein (06/13/2024 12:37 PM EST) Only the most recent of2 resultswithin the time period is included. C-Reactive Protein 10.20(H) <=0.50 mg/dL LAB CHEMISTRY METHOD 06/13/2024 2:25 PM [facility] Blood Venous blood specimen / Unknown Venipuncture / Unknown 06/13/2024 12:37 PM EST 06/13/2024 12:55 PM EST us Napoleon Neely MD LAB BLOOD ORDERABLES Final Re sult [facility] [address] [place] [address], * (ABNORMAL) Hepatic function panel (06/13/2024 12:37 PM EST) Pathologist [facility] Total Protein 5.9(L) 6.0 - 8.0 g/dL LAB CHEMISTRY METHOD 06/13/2024 2:25 PM [facility] Albumin 2.3(L) 3.2 - 5.0 g/dL LAB CHEMISTRY METHOD 06/13/2024 2:25 PM [facility] Total Bilirubin 2.6(H) 0.0 - 1.4 mg/dL LAB CHEMISTRY METHOD 06/13/2024 2:25 PM [facility] Bilirubin, Direct 1.4(H) 0.0 - [...] LAB CHEMISTRY METHOD 06/13/2024 2:25 PM EST [facility] Blood Venous blood specimen / Unknown Venipuncture / Unknown 06/13/2024 12:37 PM EST 06/13/2024 12:55 PM EST Napoleon Neely MD LAB BLOOD ORDERABLES Final Re sult Performing Organization Address [facility]/ZIP Co de Phone Number [facility] [address] [place] [address], [place] [phone] * Troponin I high sensitivity (06/12/2024 6:44 AM EST) Only the most recent of4 resultswithin the time period is included. High Sensitivity Troponin I 17 <=79 ng/L LAB CHEMISTRY METHOD 06/12/2024 7:31 AM EST [facility] Blood Venous blood specimen / Unknown Venipuncture / Unknown 06/12/2024 6:44 AM EST 06/12/2024 6:58 AM EST Narrative [facility] - 06/12/2024 7:31 AM EST High levels of biotin in samples may falsely decrease hsTroponin values. ??Use caution when interpreting hsTroponin results in patients taking biotin who exhibit renal impairment (eGFR <60) or in patients taking more than 20 mg/day of biotin. Nayeli RAND LAB BLOOD ORDERABLES Final Resu lt Performing Organization Address [facility]/ZIP Co de Phone Number [facility] [address] [place] [address], [place] [phone] * CT Abdomen Pelvis w Contrast (06/12/2024 6:28 AM EST) Only the most recent of2 resultswithin the time period is included. Anatomical Region Laterality Modality Body Computed Tomogra phy 06/12/2024 7:06 AM EST Impressions 06/12/2024 7:06 AM EST Impression: Cirrhotic liver with portal hypertension including anwqdasm-xi-dznmc volume ascites, splenomegaly and varices. No apparent [...] Small fat containing inguinal hernias. Procedure Note Joes Underwood MD - 06/12/2024 INDICATION: pain, hematuria [...] Impression: Cirrhotic liver with portal hypertension including ieiitknm-ca-tgebc volume ascites, splenomegaly and varices. No apparent [...] recommended in 3 months to assess stability. Pclwv-ht-wumrplro size left pleural effusion and trace right [...] contour and moderate volume of ascites. Splenomegaly. Ddaak-ik-bgprijzo size left pleural effusion and trace right [...] contour and moderate volume of ascites. Splenomegaly. Btmic-tx-ndghfhxt size left pleural effusion and trace right [...] recommended in 3 months to assess stability. Kblul-ho-spzgotyr size left pleural effusion and trace right [...] of2 resultswithin the time period is included. [facility] BNP 95 <=100 pcg/mL LAB CHEMISTRY METHOD 06/12/2024 6:10 AM EST [facility] Blood Venous blood specimen / Unknown Venipuncture / Unknown 06/12/2024 5:19 AM EST 06/12/2024 5:22 AM EST us Nayeli RAND LAB BLOOD ORDERABLES Final Resu lt Performing Organization Address City/[facility]/ZIP Co de Phone Number [facility] [address] [place] [address], [place] [phone] * (ABNORMAL) Blood culture pathogens molecular study (06/12/2024 3:44 AM EST) [facility] Pseudomonas aeruginosa Detected (A) Not Detected LAB MICROBIOLOGY METHOD 06/13/2024 7:45 AM EST [facility] Blood Venous blood specimen / Unknown Venipuncture / Unknown 06/12/2024 3:44 AM EST 06/12/2024 3:51 AM EST us Nayeli RAND LAB MICROBIOLOGY - GENERAL ORDE RABLES Final Result Performing Organization Address City/[facility]/ZIP Co de Phone Number [facility] [address] [place] [address], [place] [phone] * (ABNORMAL) Lactate (06/12/2024 3:40 AM EST) Only the most recent of6 resultswithin the time period is included. [facility] Lactate 3.2(HH) 0.4 - 2.0 mmol/L LAB CHEMISTRY METHOD 06/12/2024 4:30 AM [facility] Blood Venous blood specimen / Unknown Venipuncture / Unknown 06/12/2024 3:40 AM EST 06/12/2024 3:51 AM EST us Nayeli RAND LAB BLOOD ORDERABLES Final Resu lt [facility] [address] [place] [address], [place] [phone] * (ABNORMAL) Urinalysis with reflex microscopic and culture (06/12/2024 1:15 AM EST) Only the most recent of2 resultswithin the time period is included. Specific [place] Urine 1.007 1.003 - 1.030 LAB URINALYSIS [...] RAND LAB URINE ORDERABLES Final Resu lt [facility] [address] [place] [address], * Pugh urine culture tube (06/12/2024 1:15 AM EST) Only the most recent of2 resultswithin the time period is included. Extra Tube Hold for add-ons. 06/12/2024 4:01 AM [facility] Comment:Auto resulted. Urine Urine specimen obtained by clean catch procedure / Unknown Non-blood Collection / Unknown 06/12/2024 1:15 AM EST 06/12/2024 2:59 AM EST Nayeli RAND LAB URINE ORDERABLES Final Resu lt Performing Organization Address [facility]/ZIP Co de Phone Number [facility] [address] [place] [address], [place] [phone] * (ABNORMAL) Culture urine (06/12/2024 1:15 AM EST) Only the most recent of2 resultswithin the time period is included. Culture, Urine >100,000 CFU/mL Pseudomonas aeruginosa(A) SAVANNAH 06/15/2024 9:00 AM EST [facility] Comment: This is an [...] ORDE RABLES Final Result Performing Organization Address [facility]/ZIP Co de Phone Number [facility] [address] [place] [address], [place] [phone] * (ABNORMAL) Thyroid stimulating hormone (05/26/2024 6:59 AM EST) Pathologist [facility] TSH 5.20(H) 0.40 - 4.00 mcIU/mL LAB CHEMISTRY METHOD 05/26/2024 1:24 PM EST [facility] Blood Venous blood specimen / Unknown Venipuncture / Unknown 05/26/2024 6:59 AM EST 05/26/2024 10:29 AM EST us Gerry Barksdale LAB BLOOD ORDERABLES Final Resul t Performing Organization Address City/[facility] Co de Phone Number [facility] [address] [place] [address], [place] [phone] * Folate (05/26/2024 6:59 AM EST) [facility] Folate 4.3 2.8 - 17.0 ng/ml LAB CHEMISTRY METHOD 05/26/2024 1:39 PM EST [facility] Blood Venous blood specimen / Unknown Venipuncture / Unknown 05/26/2024 6:59 AM EST 05/26/2024 10:29 AM EST us Gerry Barksdale LAB BLOOD ORDERABLES Final Resul t Performing Organization Address [facility] de Phone Number [facility] [address] [place] [address], [place] [phone] * (ABNORMAL) Vitamin B12 (05/26/2024 6:59 AM EST) [facility] Vitamin B-12 1,309(H) 250 - 900 pcg/mL LAB CHEMISTRY METHOD 05/26/2024 1:39 PM EST [facility] Blood Venous blood specimen / Unknown Venipuncture / Unknown 05/26/2024 6:59 AM EST 05/26/2024 10:29 AM EST us Gerry Barksdale LAB BLOOD ORDERABLES Final Resul t Performing Organization Address City/[facility]/ZIP Co de Phone Number [facility] [address] [place] [address], [place] [phone] * Vancomycin, trough (05/23/2024 12:10 PM EST) Only the most recent of3 resultswithin the time period is included. Vancomycin Trough 13.0 10.0 - 20.0 mcg/mL LAB CHEMISTRY METHOD 05/23/2024 12:59 PM EST [facility] Blood Venous blood specimen / Unknown Venipuncture / Unknown 05/23/2024 12:10 PM EST 05/23/2024 12:28 PM EST Hue RAND LAB BLOOD ORDERABLES Final Re sult [facility] [address] [place] [address], * Lavender tube (05/23/2024 3:07 AM EST) Only the most recent of2 resultswithin the time period is included. Extra Tube Hold for add-ons. 05/23/2024 5:01 AM EST [facility] Comment:Auto resulted. Blood Venous blood specimen / Unknown 05/23/2024 3:07 AM EST 05/23/2024 3:19 AM EST Chemo Reveles MD LAB BLOOD ORDERABLES Final Resu lt [facility] [address] [place] [address], * Vascular US duplex lower extremity venous [...] Signed Date: 05/21/2024 09:23 ET Workstation ID: [id number] Transcribed By: Self Edit Transcribed Date: 05/21/2024 [...] Signed Date: 05/21/2024 09:23 ET Workstation ID: [id number] Transcribed By: Self Edit Transcribed Date: 05/21/2024 09:22 ET us Chemo Reveles MD CV VASCULAR PROCEDURES Final Re sult * (ABNORMAL) Thyroid stimulating hormone with reflex to free t4 and free t3 (05/21/2024 3:17 AM EST) TSH 8.16(H) 0.40 - 4.00 mcIU/mL LAB CHEMISTRY METHOD 05/21/2024 3:59 AM EST [facility] Blood Venous blood specimen / Unknown Venipuncture / Unknown 05/21/2024 3:17 AM EST 05/21/2024 3:23 AM EST us Chemo Reveles MD LAB BLOOD ORDERABLES Final Resu lt Performing Organization Address [facility]/ZIP Co de Phone Number [facility] [address] [place] [address], [place] [phone] * Free thyroxine with reflex to free triiodothyronine (05/21/2024 3:17 AM EST) Free T4 1.02 0.70 - 1.80 ng/dL LAB CHEMISTRY METHOD 05/21/2024 4:25 AM EST [facility] Blood Venous blood specimen / Unknown Venipuncture / Unknown 05/21/2024 3:17 AM EST 05/21/2024 3:23 AM EST us Chemo Reveles MD LAB BLOOD ORDERABLES Final Resu lt Performing Organization Address City/[facility]/ZIP Co de Phone Number [facility] [address] [place] [address], [place] [phone] * Triiodothyronine free (05/21/2024 3:17 AM EST) T3, Free 249 230 - 420 pcg/dL LAB CHEMISTRY METHOD 05/21/2024 4:50 AM EST [facility] Blood Venous blood specimen / Unknown Venipuncture / Unknown 05/21/2024 3:17 AM EST 05/21/2024 3:23 AM EST us Chemo Reveles MD LAB BLOOD ORDERABLES Final Resu lt Performing Organization Address [facility]/ZIP Co de Phone Number [facility] [address] [place] [address], [place] [phone] * Hemoglobin A1c (05/21/2024 3:17 AM EST) Hemoglobin A1C 4.9 <6.5 % LAB CHEMISTRY METHOD 05/21/2024 1:49 PM EST [facility] Mean Bld Glu Estim. 94 mg/dL LAB CHEMISTRY METHOD 05/21/2024 1:49 PM EST [facility] Blood Venous blood specimen / Unknown Venipuncture / Unknown 05/21/2024 3:17 AM EST 05/21/2024 3:23 AM EST us Chemo Reveles MD LAB BLOOD ORDERABLES Final Resu lt Performing Organization Address [facility] de Phone Number [facility] [address] [place] [address], [place] [phone] * (ABNORMAL) Sedimentation rate (05/20/2024 6:09 AM EST) Pathologist [facility] Sed Rate 35(H) 0 - 20 mm/hr LAB HEMETOLOGY METHOD 05/20/2024 2:00 PM EST [facility] Blood Venous blood specimen / Unknown Venipuncture / Unknown 05/20/2024 6:09 AM EST 05/20/2024 6:32 AM EST us Chemo Reveles MD LAB BLOOD ORDERABLES Final Resu lt Performing Organization Address [facility]/ZIP Co de Phone Number [facility] [address] [place] [address], [place] [phone] * XR Chest 2 Views (05/19/2024 6:51 PM EST) Anatomical Region Laterality Modality Body Radiographic Esmer ging 05/20/2024 8:05 AM EST Impressions 05/20/2024 8:06 AM EST Small-moderate left pleural effusion. -------- FINAL REPORT -------- Dictated By: Frank Vivar Dictated Date: 05/20/2024 08:05 ET Assigned Physician: Frank Vivar Reviewed and Electronically Signed By: Frank Vivar Signed Date: 05/20/2024 08:06 ET Workstation ID: [id number] Transcribed By: Self Edit Transcribed Date: 05/20/2024 [...] Signed Date: 05/20/2024 08:06 ET Workstation ID: [id number] Transcribed By: Self Edit Transcribed Date: 05/20/2024 08:05 ET Hue RAND IMG XR PROCEDURES Final Resul t * (ABNORMAL) Lipase (05/19/2024 4:10 PM EST) Lipase 76(H) 13 - 75 unit/L LAB CHEMISTRY METHOD 05/19/2024 4:59 PM EST [facility] Blood Venous blood specimen / Unknown Venipuncture / Unknown 05/19/2024 4:10 PM EST 05/19/2024 4:25 PM EST Emily Gant Francisco DO LAB BLOOD ORDERABLES Berenice l Result [facility] [address] [place] [address], [place] [phone] from Last 3 Months Insurance [facility] MEDICARE Member Subscriber Plan / Payer (Ef fective 2024-Present) Name:Jonny Reed Relation to Subscriber:Self Name:Jonny Reed Payer ID:[id number] Group ID:[id number] Type:Not on file Address: [place] [address] [address] [id number] Advance Directives Documents on File Type Date 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
[2024-07-27 19:08] LABS: Appearance Urine Clear; Color Urine Dark Yellow; Glucose Urine UA Negative (Negative); Leukocyte Esterase Urine Large (3+) (Negative); Nitrite Urine Positive (Negative); Specific Gravity - Urine 1.015 (1.005-1.025); UMIC TRIGGER UA YES; Urine Blood Large (3+) (Negative); Urine Ketones Negative (Negative); Urine Protein 30 (1+) mg/dL (Neg-Trace)
[2024-07-27 19:23] LABS: Bacteria Urine 4+ (None Seen); Calcium Oxalate Crystals Urine Present; RBC Urine >20 /HPF (0-2); Squamous Epithelial Cell Urine 0-2 /HPF (0-2); WBC Urine >50 /HPF (0-5)
== END 2024-07-27 13:56 | disposition home or self-care (01) ==
LOC: HO.CHCLNP 13:55
PROVIDERS: Visit Provider Urology
DX: N39.0 Urinary tract infection, site not specified (principal); R33.9 Retention of urine, unspecified
CPT/HCPCS: 81001; 87086; 87088; 87186

== ENCOUNTER 2024-07-29 09:58 | Outpatient (AMB) | payer OTHER, SELFPAY ==
--- NOTE | 2024-07-29 10:14 | MHC.OFFVIS ---
Vital Signs 07/29/24 10:15 Height 5 ft 6 in Weight 305 lb 8 oz BMI 49.3 BP 178/79 H Blood Pressure Location Rt brachial Position Sitting Pulse 102 H Pulse Source Pulse Oximeter Pulse Oximetry (%) 97 Oxygen Delivery Method Room Air Intake Visit Reasons: Pill Count Allergies nystatin Adverse Reaction (Mild, Verified 07/29/24 10:15) swelling atorvastatin Adverse Reaction (Verified 07/29/24 10:15) Diarrhea HPI Comments Details: Jonny is back in my office today for the pill count and pain medication refill. He presented today with 205 pills in his possession. His supposed to have 144 pills only. Therefore he has excess of the pills. We would need to stand little bit the prescription of his opioids. He reports today that he had TIPS procedure. He also reported that he is recovering from UTI. Prior: c/o chronic debilitating 12/29 to 01/28 pain syndrome. left hip avascular necrosis and severe arthritis as well as postlaminectomy syndrome of the lumbar spine. He is here with the intention to start chronic opioid therapy in this office however he is interested in interventional pain management. The assessment was performed today, he is currently on rather elevated doses of the opioid medications. I explained to him that I will not be able to prescribe 60 mg of continuous oxycodone and 10 mg of oxycodone p.r.n. on demand I would have to taper these dose down to more acceptable levels. His PHQ-9 score is equal to 8. The opioid addiction risk score is equal to 21. Total score is equal to 29. Pill count regular and random as well as UDS regular and random were carefully explained to the patient with all the implications on his personal life. Therefore he is high-risk for opioid addiction. 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 No natural teeth Back pain Back pain Arthritis Fatty liver History of cirrhosis of liver Avascular necrosis Hemochromatosis COPD (chronic obstructive pulmonary disease) NICOLE on CPAP Surgical History Hx of esophagogastroduodenoscopy Hx of colonoscopy [place] teeth extracted History of surgery History of back surgery (~1997) H/O discectomy (~1997) Family History Maternal Grandfather Heart attack Brother Heart attack Social History Household Members: None Housing: Apartment Are you a primary child care development specialist to a significant other at home: No Do you presently have visiting nurse or other home services: Yes ([employer] 37.5 hours M-F, 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) 75 years or older and lives alone: No Patient Tobacco Use Status: Former Tobacco user Tobacco use type: Cigarette Substance Use Type: Marijuana service: No Current occupational status: unemployed Gender identity: Male Cognitive needs: No Hearing needs: No Vision needs: No Review of Systems Const All systems reviewed & are unremarkable except as noted in HPI and below Physical Exam Vital Signs: Last Vital Signs Pulse 102 H 07/29/24 10:15 BP 178/79 H 07/29/24 10:15 Pulse Ox 97 07/29/24 10:15 Oxygen Delivery Method Room Air 07/29/24 10:15 BMI result Body Mass Index 49.3 Const General: cooperative, no acute distress and tired appearing; No healthy appearing Nutritional Appearance: obese and other (Icteric) Limitations: physical limitations Eyes General: appearance normal, both eyes and all related structures Chest Chest palpation & inspection: normal inspection of the chest Resp Effort & Inspection: normal respiratory effort, able to speak in complete sentences, normal respiratory pattern, no audible wheezes, no cough, respiratory effort not decreased and no grunting Cardio Jugular venous distension: no JVD GI Inspection: Yes distended and Yes caput medusae present Other: indwelling Cuello catheter General: Yes no CVA tenderness Back/Spine/Pelvis Back: no CVA tenderness Cervical Spine: loss of normal cervical lordosis, cervical muscular tenderness, pain with cervical ROM and No Cervical spine tenderness Thoracic/Lumbar Spine: thoracic and lumbar spine normal to inspection, Thoracic/lumbar spine scar(s), Lasegue's sign negative, straight leg raise negative bilaterally, pain with thoraco-lumbar ROM, thoraco-lumbar ROM limited, No thoracic spinal tenderness and lumbar spinal tenderness (L4-S1) Sacroiliac joints: bilaterally tender to palpation Extrem General: Yes no calf tenderness, No cyanosis and Yes edema (BLE +1-+2 nonpitting edema) Left lower extremity: hip/thigh (limited ROM due to pain and body habitus. +groin pain with I/E rotations) Details: tenderness Location: of the hip Location: posterolaterally and over the great trochanter and crepitus; no swelling, no ecchymosis and no unusual warmth Psych Appearance: grossly normal Mental Status: mental status grossly normal Speech and movement: Normal speech and movement present Affect: Anxious affect present Insight: Good insight present (Psych) Judgement: Good judgement present (Psych) Results Reviewed Results Reviewed: EXAMINATION: XR PELVIS 09/29/2023 CLINICAL INFORMATION: Pain. COMPARISON: MR left hip 04/26/2021. TECHNIQUE: AP view of the pelvis. FINDINGS: Evaluation is very limited due to patient body habitus and positioning. There is severe, end-stage arthrosis of the left hip with bone in bone contact and deformity of the superolateral aspect of the left femoral head. There is moderate degenerative osteoarthritis of the right hip with joint space narrowing and subcortical sclerosis. SI joints are symmetric and pelvic rami and pubic symphysis are maintained. Assessment & Plan Assessment & Plan (1) Ascites: Code(s): R18.8 - Other ascites Category: Medical (2) Liver cirrhosis: Code(s): K74.60 - Unspecified cirrhosis of liver Category: Medical (3) Hematuria: Code(s): R31.9 - Hematuria, unspecified Category: Medical (4) Lumbar post-laminectomy syndrome: Code(s): M96.1 - Postlaminectomy syndrome, not elsewhere classified Category: Medical (5) Chronic pain syndrome: Code(s): G89.4 - Chronic pain syndrome Category: Medical (6) Avascular necrosis of bone of left hip: Code(s): M87.052 - Idiopathic aseptic necrosis of left femur Category: Medical (7) Osteoarthritis, hip, bilateral: Code(s): M16.0 - Bilateral primary osteoarthritis of hip Category: Medical Plan Will refill his medications however with little bit later than he is due for his meds because of excess of the medications. I will continue to do so until he he has only minimal excess of the medications few pills on the pill count. We will continue observation of this patient. He is suffering from liver cirrhosis and he has a sinus. He also suffering from severe arthritis of the bilateral hip joints with severe pain syndrome., he is on chronic opioid therapy. He denies side effects of the opioids. He denies constipation. Unfortunately it is very impractical with his terminal conditions to send him to physical therapy. He was prescribed Narcan on 02/25/2024. Narcan was described and explained to him at that time. Medications: Refilled oxycodone Partial Fill upon patient request. 10 mg PO Q4H 30 days PRN 180 tabs 0RF pain Coding Level of Care Code Est Pt Level 3 (26851) Diagnoses Ascites R18.8 Liver cirrhosis K74.60 Hematuria R31.9 Lumbar post-laminectomy syndrome M96.1 Chronic pain syndrome G89.4 Avascular necrosis of bone of left hip M87.052 Osteoarthritis, hip, bilateral M16.0
[2024-07-29 10:15] VITALS: BP 178/79; PULSE 102; O2SAT 97; BMI 49.3
--- OUTSIDE RECORDS SUMMARY | 2024-07-29 11:33 | XMS_ITS | Encounter Summary ---
Author Organization [facility] Address [address] [place] [address] Care Team Providers Care Registered Associate Name Role Phone Dalia Harmon Primary Care Provider [phone] Encounter Details Date Type Department Care Team (Late st Contact Info) Description 05/28/2024 Lab Requisition [facility] - Main Lab [address] [facility] [place] [id number] Gerry Barksdale [address] [facility] [address] [place] [address] Sepsis, unspecified organism (CMS/HCC V24, CMS/HCC V28) Social History Tobacco Use Types Packs/Day Years [...] 9:10 AM EDT Office Visit Gastroenterology - [place] [address] [place] [address] Han Sloan DO [address] [place] [address] documented as of this encounter Procedures Procedure Name Priority Date/Time Associated Diagnosis Comments COMPLETE BLOOD COUNT Routine 05/31/2024 8:09 AM EST Sepsis, unspecified organism (CMS/HCC) BASIC METABOLIC PANEL Routine 05/31/2024 8:09 AM EST Sepsis, unspecified organism (CMS/HCC) documented in this encounter Results * (ABNORMAL) Basic metabolic panel (05/31/2024 8:09 AM EST) Sodium 135 133 - 145 mmol/L LAB CHEMISTRY METHOD 05/31/2024 10:57 AM [facility] Potassium 3.9 3.5 - 5.5 mmol/L LAB CHEMISTRY METHOD 05/31/2024 10:57 AM [facility] Chloride 101 96 - 110 mmol/L LAB CHEMISTRY METHOD 05/31/2024 10:57 AM [facility] CO2 29 21 - 32 mmol/L LAB CHEMISTRY METHOD 05/31/2024 10:57 AM [facility] Anion Gap 5 3 - 11 LAB CHEMISTRY METHOD 05/31/2024 10:57 AM [facility] Glucose 116(H) 70 - 100 mg/dL LAB CHEMISTRY METHOD 05/31/2024 10:57 AM [facility] BUN 12 5 - 25 mg/dL LAB CHEMISTRY METHOD 05/31/2024 10:57 AM [facility] Creatinine 0.47(L) 0.70 - 1.30 mg/dL LAB CHEMISTRY METHOD 05/31/2024 10:57 AM [facility] eGFR 115 >=60 mL/min/1. 73m2 LAB CHEMISTRY METHOD 05/31/2024 10:57 AM EST [facility] Comment:Calculation based on the??Chronic Kidney Disease Epidemiology Collaboration (CKD-EPI) equation refit??without adjustment for race. BUN/Creatinine Ratio 25.5 LAB CHEMISTRY METHOD 05/31/2024 10:57 AM [facility] Calcium 8.2(L) 8.5 - 10.5 mg/dL LAB CHEMISTRY METHOD 05/31/2024 10:57 AM [facility] Blood Venous blood specimen / Unknown Venipuncture / Unknown 05/31/2024 8:09 AM EST 05/31/2024 9:54 AM EST us Gerry Barksdale LAB BLOOD ORDERABLES Final Resul t [facility] [address] [place] [address], * (ABNORMAL) Complete blood count (05/31/2024 8:09 AM EST) WBC 5.3 4.8 - 10.8 K/mcL LAB HEMETOLOGY METHOD 05/31/2024 10:28 AM [facility] RBC 3.50(L) 4.50 - 5.50 M/mcL LAB HEMETOLOGY METHOD 05/31/2024 10:28 AM [facility] Hemoglobin 11.8(L) 13.5 - 17.5 g/dL LAB HEMETOLOGY METHOD 05/31/2024 10:28 AM [facility] Hematocrit 36.4(L) 42.0 - 54.0 % LAB HEMETOLOGY METHOD 05/31/2024 10:28 AM [facility] MCV 105.5(H) 79.0 - 98.0 FL LAB HEMETOLOGY METHOD 05/31/2024 10:28 AM [facility] MCH 34.2(H) 27.0 - 32.0 pcg LAB HEMETOLOGY METHOD 05/31/2024 10:28 AM EST [facility] MCHC 32.4 32.0 - 37.0 g/dL LAB HEMETOLOGY METHOD 05/31/2024 10:28 AM [facility] RDW 17.1(H) 11.0 - 15.0 % LAB HEMETOLOGY METHOD 05/31/2024 10:28 AM EST [facility] Platelets 149 130 - 400 K/mcL LAB HEMETOLOGY METHOD 05/31/2024 10:28 AM EST [facility] MPV 10.5 7.0 - 11.0 FL LAB HEMETOLOGY METHOD 05/31/2024 10:28 AM [facility] NRBC 0.0 <1.0 % LAB HEMETOLOGY METHOD 05/31/2024 10:28 AM [facility] NRBC Absolute 0.00 <0.10 K/mcL LAB HEMETOLOGY METHOD 05/31/2024 10:28 AM [facility] Blood Venous blood specimen / Unknown Venipuncture / Unknown 05/31/2024 8:09 AM EST 05/31/2024 9:53 AM EST us Gerry Barksdale LAB BLOOD ORDERABLES Final Resul t [facility] [address] [place] [address], documented in this encounter Visit Diagnoses Diagnosis Sepsis, unspecified organism (CMS/HCC V24, CMS/HCC V28) documented in this encounter Care Teams Registered Associate Relationship Specialty Start Date End Date Dalia Harmon PA [address] [place] [address], [address] [place] [address] PCP - General 05/10/24 documented as of this encounter
--- OUTSIDE RECORDS SUMMARY | 2024-07-29 11:33 | XMS_ITS | Data Portability ---
Author Organization [employer] Address [address] [place] [phone] Care Team Providers Care Grain Commodity Manager Name Role Phone HIM [facility] OTHER [facility] Primary Care Provider Assessment Encounter Date [...] assessment and plan as documented by the faculty research physician. I provided real-time medical direction for this encounter and was immediately available to provide additional phone-based assistance as needed. HPI: 64M presenting with malfunctioning catheter, leaking. No other symptoms noted. Was recently tested for UTI and was negative. VSS. Exam otherwise unremarkable per the faculty research physician. Able to reinsert catheter to have appropriate [...] in the field was performed by my faculty research physician colleague, as noted above, I provided real-time [...] needs coags and platelets checked Disposition: To [facility] ED via 911. Patient is agreeable [...] culture,comp rehensive Final report Not Available [facility] ([facility]) [address] [facility], [place], [address], 03/19/2024 10:05:46 03/16/2003/19/2024 URINE CULTU RE,CO MPREH ENSIV E result 1 COMMEN T No growt h in 36 - 48 hours . Not Available [facility] ([facility]) [address] [facility], [place], [address], 03/19/2024 10:05:46 Result Notes None recorded. Medical Equipment None Reported. Allergies Allergen ID Allergen Name Allergen Category Reaction Reaction Severity Criticality Documentation Date Start Date Code Code System Note Provider Name and Address Organization Details Recorded Time 50582 semagluti de medicatio n Not available Not available Not available 03/18/2024 RxNorm Not Available [facility] - production 4 18:27:38 48761 nystatin medicatio n Not available Not available Not available 06/10/2024 7597 RxNorm Not Available [facility] - production 5 20:32:41 09962 codeine medicatio n Not available Not available [...] cm 96 % 96 % 98 [degF] 146174 g 14 /min 77 /min 134 mm[Hg] 82 mm[Hg] Not Available [facility] 4 19:24:57 Date Recorded Body weight Oxygen saturation Oxygen saturation in Arterial blood by Pulse oximetry Respiratory rate Body temperature Heart rate Systolic blood pressure Diastolic blood pressure Provider Name and Address Organization Details Last Updated DateTime 5 734415. 28 g 97 % 97 % 16 /min 98.2 [degF] 86 /min 156 mm[Hg] 82 mm[Hg] Not Available [facility] [facility] 5 10:41:34 Date Recorded Body weight Body height Body temperature Oxygen saturation Oxygen saturation in Arterial blood by Pulse oximetry Respiratory rate Heart rate Systolic blood pressure Diastolic blood pressure Provider Name and Address Organization Details Last Updated DateTime 5 553448. 28 g 167.64 cm 98 [degF] 94 % 94 % 16 /min 87 /min 162 mm[Hg] 72 mm[Hg] Not Available [facility] 5 18:57:19 Date Recorded Heart rate Oxygen [...] cm 97 % 97 % 99 /min 344939. 584 g 20 /min 150 mm[Hg] 90 mm[Hg] Not Available [facility] - production 20:56:17 Social History None recorded. Functional Status None recorded. Mental Status None recorded. Family History Nothing Reported. Medical History No medical history recorded. Past Encounters Encounter ID Performer Location Encounter Start Date Encounter Closed Date Diagnosis/Indication Diagnosis SNOMED-CT Code Diagnosis ICD10 Code Diagnosis Note [id number] Aleksandar Manning MD Main - [facility] [address] [place] [id number] 03/16/2024 13:37:07 03/16/2024 16:05:19 Mechanical complication of urethral indwelling catheter 29547627 T83.098A [id number] Elvi Pereira MD [facility] [address] [place], [place] [phone] 03/18/2024 19:24:55 03/19/2024 15:31:31 Complication of urinary catheter [id number] T83.9XXA [id number] Juan Antonio [facility]ust[facility] [address] [place] [phone] 04/23/2024 10:41:31 04/23/2024 16:17:35 Complication of urinary catheter 058196551 T83.9XXA As noted, we were called to see this patient regarding concerns of malpositio n of alex catheter Evaluation in the field was performed by my faculty research physician colleague, as noted above, I provided real-time direction and supervisio n for this visit. The evaluation revealed normal VS and simple disconnect ion, which the patient was not able to adequately visualize due to body habitus. Impression :Alex disconnect ion without any patient complicati ons Plan:Recon Prashant crawford [id number] Betsy Lopez MD Main - [facility] [address] [place] [phone] 04/25/2024 18:57:17 04/26/2024 00:18:55 Complication of urinary catheter [id number] T83.9XXS As noted, we were called to see this patient regarding concerns of malfunctio vy urinary catheter. Evaluation in the field was performed by my faculty research physician colleague, as noted above, I provided real-time [...] of any new or worsening serious symptoms. [id number] Yasmeen Redmond MD Main - [facility] [address] [place] [phone] 06/10/2024 20:56:07 06/10/2024 21:35:04 Indwelling urethral urinary catheter in situ [id number] Z96.0 [id number] FRANSISCO POLANCO MD Main - [facility] [address] [place] [phone] 06/11/2024 20:56:11 06/12/2024 09:25:59 Jovi hematuria 071939740 R31.0 Health Concerns Section Related Observation LastModified by Organization Detai ls LastModified Time None Recorded Concern Status LastModified by Organization Details LastModified Time None Recorded Advance Directives Directive None Recorded Payers Encounter Date Sequence Insurance Name Policy Number Policy Pan Covered Member ID Pan Member ID Guarantor Name 03/18/2024 1 [facility] - DOS ON OR AFTER 2022 - DUAL ELIGIBLE - CUSTODIAL OPTIONS AND ONE CARE (MEDICARE REPLACEMENT/ADV ANTAGE - HMO) Jonny Reed [id number] Jonny Reed 04/23/2024 1 [employer] - DOS ON OR AFTER 2022 - DUAL ELIGIBLE - CUSTODIAL OPTIONS AND ONE CARE (MEDICARE REPLACEMENT/ADV ANTAGE - HMO) Jonny Alejandroes [id number] Jonny Reed 04/25/2024 1 [facility] - DOS ON OR AFTER 2022 - DUAL ELIGIBLE - CUSTODIAL OPTIONS AND ONE CARE (MEDICARE REPLACEMENT/ADV ANTAGE - HMO) Jonny Derek [id number] Jonny Reed 06/10/2024 1 [facility] - DOS ON OR AFTER 2022 - DUAL ELIGIBLE - CUSTODIAL OPTIONS AND ONE CARE (MEDICARE REPLACEMENT/ADV ANTAGE - HMO) Jonny Alejandroes [id number] Jonny Alejandroes 06/11/2024 1 [facility] [employer] - DOS ON OR AFTER 2022 - DUAL ELIGIBLE - CUSTODIAL OPTIONS AND ONE CARE (MEDICARE REPLACEMENT/ADV ANTAGE - HMO) Jonny Reed [id number] Jonny Burnett Reed Notes Date Note Type [...] needed. [facility] Alex cath changed - [...] ................... ................... ................... ................... ................... ................... ........ Field Applications Specialist Note From Esa Francisco: Patient alert and oriented seated in chair. Patient complains of leakage around urethra. Patient reports alex catheter inserted times two days ago by [facility] personnel. Patient reports he noticed urine [...] the hospital. Sticker to secure tube applied. [facility] advises culture taken times two days ago currently negative for growth.Patient encouraged to monitor site, contact [facility] director medicare sales to help arrange urology referral, and call [facility] again if needed. Patient and caregiver demonstrates understanding of care and plan. Patient grateful for assistance. ................... ................... ................... ................... ................... ................... ................... ........ [facility] Consulted: Elvi Pereira ................... ................... ................... ................... ................... ................... ................... ........ Disposition: Fulfilled Elvi Pereira MD [address] [place] [address],[address], [place], [address], [employer] 03/18/2024 20:14:22 04/23/2024 text/html [facility] Nurse Triage [...] PMH: Chronic Back Pain, Hypertension, Cirrhosis Comments: Insurance Professional verified the name//address and phone number. Pt [...] ................... ................... ................... ................... ................... ................... ........ Field Applications Specialist Note From Hussein Grossman: Pt co alex cath disconnection from bag tube. Pt got up and it fell off. Pay can not see th area due to obesity and was unsure what had happened. Pt denies pain. Pt sts urine is sti voiding from catheter. Pt has no other complaints. Alex reconnected without issue. Pt education on signs indicating the ER. [facility] contacted and advised of resolution. ................... ................... ................... ................... ................... ................... ................... ........ [facility] Consulted: Justin Bustillo ................... ................... ................... ................... ................... ................... ................... ........ Disposition: Fulfilled Juan Antonio Bustillo MD [address] [facility],[address], [place], [address], [employer] 04/23/2024 10:47:59 04/25/2024 text/html [facility] Nurse Triage [...] PMH: Chronic Back Pain, Hypertension, Cirrhosis Comments: Insurance Professional verified the Pt.'s name//address and phone number. [...] ................... ................... ................... ................... ................... ................... ........ Field Applications Specialist Note From Marcellus Mauro: This 64-year-old male [...] ................... ................... ................... ................... ................... ................... ........ [facility] Consulted: Betsy Lopez ................... ................... ................... ................... ................... ................... ................... ........ Disposition: Barbara Lopez MD [address] [facility],[address], [place], [address], [employer] 04/25/2024 20:46:05 06/10/2024 text/html [facility] Nurse Triage Notes (Elsie Sultana - [...] ................... ................... ................... ................... ................... ................... ........ Field Applications Specialist Note From Harley Rodriguez: Dispatched to [...] urine not obviously displaced, no active leaking. [facility] contacted, advised of patient complaints and exam findings. Catheter balloon drained 10ml sterile water, re-inflated, patient reported discomfort, catheter advanced and re-inflated without pain, urine moving in tubing, patient denies discomfort. [facility] advised of catheter troubleshooting, recommends home monitoring with follow up should leaking continue. Patient agrees with this plan. Patient has no additional questions or concerns at this time. SC8 clear. EOR. ................... ................... ................... ................... ................... ................... ................... ........ [facility] Consulted: Yasmeen Redmond ................... ................... ................... ................... ................... ................... ................... ........ Disposition: Fulfilled Yasmeen Redmond MD [address] [place] [address],[address], [place], [phone] [employer] [facility] 06/10/2024 21:28:25 06/11/2024 text/html [facility] Nurse Triage Notes (Elsie Sultana - RN): Reason For Request: Patient has cath problems, Urine and blood in the back, problems all morning with it. Chief Complaints: Urinary catheter/nephrostom y tube problems PMH: Chronic Back Pain, Hypertension, Cirrhosis PMH Reviewed at 06/11/2024 - 18:22 Allergies Reviewed at 06/11/2024 - 18:22 Comments: [facility], catheter changed during [...] with worsening s/sx-NE FRANSISCO POLANCO MD [address] [facility],[address], [place], [address], [employer] 06/11/2024 22:21:06
--- OUTSIDE RECORDS SUMMARY | 2024-07-29 11:33 | XMS_ITS | Encounter Summary ---
Author Organization [facility] Address [address] [place] [address] Care Team Providers Care Inside Sales Account Representative Name Role Phone Dalia Harmon Primary Care Provider Encounter Details Date Type Department Care Team (Late Contact Info) Description 03/05/2024 Lab Requisition [facility] - Main Lab [address] [facility] [place] [address] Gerry Barksdale MD [address] [facility] [address] [place] [address] Essential (primary) hypertension Social History Tobacco Use [...] 9:10 AM EDT Office Visit Gastroenterology - [place] [address] [facility] [address] [place] [address] Han Sloan DO [address] [place] [address] documented as of this encounter Procedures Procedure Name Priority Date/Time Associated Diagnosis Comments COMPLETE BLOOD COUNT Routine 03/08/2024 9:48 AM EST Essential (primary) hypertension BASIC METABOLIC PANEL Routine 03/08/2024 9:48 AM EST Essential (primary) hypertension documented in this encounter Results * (ABNORMAL) Basic metabolic panel (03/08/2024 9:48 AM EST) Sodium 138 133 - 145 mmol/L LAB CHEMISTRY METHOD 03/08/2024 1:23 PM [facility] Potassium 4.2 3.5 - 5.5 mmol/L LAB CHEMISTRY METHOD 03/08/2024 1:23 PM [facility] Chloride 102 96 - 110 mmol/L LAB CHEMISTRY METHOD 03/08/2024 1:23 PM [facility] CO2 26 21 - 32 mmol/L LAB CHEMISTRY METHOD 03/08/2024 1:23 PM [facility] Anion Gap 10 3 - 11 LAB CHEMISTRY METHOD 03/08/2024 1:23 PM [facility] Glucose 186(H) 70 - 100 mg/dL LAB CHEMISTRY METHOD 03/08/2024 1:23 PM [facility] BUN 14 5 - 25 mg/dL LAB CHEMISTRY METHOD 03/08/2024 1:23 PM [facility] Creatinine 0.76 0.70 - 1.30 mg/dL LAB CHEMISTRY METHOD 03/08/2024 1:23 PM [facility] eGFR 99 >=60 mL/min/1. 73m2 LAB CHEMISTRY METHOD 03/08/2024 1:23 PM [facility] Comment:Calculation based on the??Chronic Kidney Disease Epidemiology Collaboration (CKD-EPI) equation refit??without adjustment for race. BUN/Creatinine Ratio .4 LAB CHEMISTRY METHOD 03/08/2024 1:23 PM [facility] Calcium 8.7 8.5 - 10.5 mg/dL LAB CHEMISTRY METHOD 03/08/2024 1:23 PM [facility] Blood Venous blood specimen / Unknown Venipuncture / Unknown 03/08/2024 9:48 AM EST 03/08/2024 11:22 AM EST us Gerry Barksdale MD LAB BLOOD ORDERABLES Final Re sult [facility] [address] [place] [address], * (ABNORMAL) Complete blood count (03/08/2024 9:48 AM EST) WBC 4.6(L) 4.8 - 10.8 K/mcL LAB HEMETOLOGY METHOD 03/08/2024 12:55 PM [facility] RBC 4.20(L) 4.50 - 5.50 M/mcL LAB HEMETOLOGY METHOD 03/08/2024 12:55 PM [facility] Hemoglobin 14.5 13.5 - 17.5 g/dL LAB HEMETOLOGY METHOD 03/08/2024 12:55 PM [facility] Hematocrit 44.1 42.0 - 54.0 % LAB HEMETOLOGY METHOD 03/08/2024 12:55 PM [facility] MCV 105.3(H) 79.0 - 98.0 FL LAB HEMETOLOGY METHOD 03/08/2024 12:55 PM [facility] MCH 34.6(H) 27.0 - 32.0 pcg LAB HEMETOLOGY METHOD 03/08/2024 12:55 PM [facility] MCHC 32.9 32.0 - 37.0 g/dL LAB HEMETOLOGY METHOD 03/08/2024 12:55 PM EST [facility] RDW 14.7 11.0 - 15.0 % LAB HEMETOLOGY METHOD 03/08/2024 12:55 PM EST [facility] Platelets 102(L) 130 - 400 K/mcL LAB HEMETOLOGY METHOD 03/08/2024 12:55 PM [facility] MPV 11.3(H) 7.0 - 11.0 FL LAB HEMETOLOGY METHOD 03/08/2024 12:55 PM EST [facility] NRBC 0.0 <1.0 % LAB HEMETOLOGY METHOD 03/08/2024 12:55 PM EST [facility] NRBC Absolute 0.00 <0.10 K/mcL LAB HEMETOLOGY METHOD 03/08/2024 12:55 PM [facility] Blood Venous blood specimen / Unknown Venipuncture / Unknown 03/08/2024 9:48 AM EST 03/08/2024 11:22 AM EST us Gerry Barksdale MD LAB BLOOD ORDERABLES Final Re sult [facility] [address] [place] [address], documented in this encounter Visit Diagnoses Diagnosis Essential (primary) hypertension Unspecified essential hypertension documented in this encounter Care Teams Inside Sales Account Representative Relationship Specialty Start Date End Date Dalia Harmon PA [address] [facility], [address] [place] [address] PCP - General 05/10/24 documented as of this encounter
--- OUTSIDE RECORDS SUMMARY | 2024-07-29 11:33 | XMS_ITS | Encounter Summary ---
Author Organization [facility] Address [address] [place] [address] Care Team Providers Care Chief Radiology Name Role Phone Dalia Harmon Primary Care Provider [phone] Reason for Visit * Reason Onset Date Comments provider call back 07/26/2024 Encounter Details Date Type Department Care Team (Late st Contact Info) Description 07/26/2024 Telephone Gastroenterology - [place] [address] [place] [phone] Han Sloan DO [address] [place] [address] provider call back Social History Tobacco Use [...] 9:10 AM EDT Office Visit Gastroenterology - [place] [address] [place] [phone] Han Sloan DO [address] [place] [address] documented as of this encounter Visit Diagnoses Not on filedocumented in this encounter Care Teams Chief Radiology Relationship Specialty Start Date End Date Dalia Harmon PA [address] [place] [address], [address] [place] [address] PCP - General 05/10/24 documented as of this encounter
--- OUTSIDE RECORDS SUMMARY | 2024-07-29 11:33 | XMS_ITS | Encounter Summary ---
Author Organization [facility] Address [address] [place] [address] Care Team Providers Care Top Inventory Control Executive Name Role Phone Dalia Harmon Primary Care Provider [phone] Encounter Details Date Type Department Care Team (Late st Contact Info) Description 06/04/[address] [facility] - Main Lab [address] [facility] [place] [phone] Gerry Barksdale [address] [facility] [address] [place] [address] Sepsis, unspecified organism (CMS/HCC V24, [...] 9:10 AM EDT Office Visit Gastroenterology - [place] [address] [place] [address] Han Sloan DO [address] [place] [address] documented as of this encounter Procedures Procedure Name Priority Date/Time Associated Diagnosis Comments COMPLETE BLOOD COUNT Routine 06/07/2024 10:48 AM EST Sepsis, unspecified organism (CMS/HCC) BASIC METABOLIC PANEL Routine 06/07/2024 10:48 AM EST Sepsis, unspecified organism (CMS/HCC) documented in this encounter Results * (ABNORMAL) Basic metabolic panel (06/07/2024 10:48 AM EST) Sodium 137 133 - 145 mmol/L LAB CHEMISTRY METHOD 06/07/2024 12:53 PM [facility] Potassium 3.6 3.5 - 5.5 mmol/L LAB CHEMISTRY METHOD 06/07/2024 12:53 PM [facility] Chloride 103 96 - 110 mmol/L LAB CHEMISTRY METHOD 06/07/2024 12:53 PM [facility] CO2 25 21 - 32 mmol/L LAB CHEMISTRY METHOD 06/07/2024 12:53 PM [facility] Anion Gap 9 3 - 11 LAB CHEMISTRY METHOD 06/07/2024 12:53 PM [facility] Glucose 142(H) 70 - 100 mg/dL LAB CHEMISTRY METHOD 06/07/2024 12:53 PM [facility] BUN 9 5 - 25 mg/dL LAB CHEMISTRY METHOD 06/07/2024 12:53 PM [facility] Creatinine 0.58(L) 0.70 - 1.30 mg/dL LAB CHEMISTRY METHOD 06/07/2024 12:53 PM [facility] eGFR 108 >=60 mL/min/1. 73m2 LAB CHEMISTRY METHOD 06/07/2024 12:53 PM EST [facility] Comment:Calculation based on the??Chronic Kidney Disease Epidemiology Collaboration (CKD-EPI) equation refit??without adjustment for race. BUN/Creatinine Ratio 15.5 LAB CHEMISTRY METHOD 06/07/2024 12:53 PM [facility] Calcium 8.0(L) 8.5 - 10.5 mg/dL LAB CHEMISTRY METHOD 06/07/2024 12:53 PM [facility] Blood Venous blood specimen / Unknown Venipuncture / Unknown 06/07/2024 10:48 AM EST 06/07/2024 12:01 PM EST us Gerry Barksdale LAB BLOOD ORDERABLES Final Resul t [facility] [address] [place] [address], * (ABNORMAL) Complete blood count (06/07/2024 10:48 AM EST) WBC 4.4(L) 4.8 - 10.8 K/mcL LAB HEMETOLOGY METHOD 06/07/2024 1:06 PM [facility] RBC 3.40(L) 4.50 - 5.50 M/mcL LAB HEMETOLOGY METHOD 06/07/2024 1:06 PM [facility] Hemoglobin 12.0(L) 13.5 - 17.5 g/dL LAB HEMETOLOGY METHOD 06/07/2024 1:06 PM [facility] Hematocrit 36.4(L) 42.0 - 54.0 % LAB HEMETOLOGY METHOD 06/07/2024 1:06 PM [facility] MCV 105.8(H) 79.0 - 98.0 FL LAB HEMETOLOGY METHOD 06/07/2024 1:06 PM [facility] MCH 34.9(H) 27.0 - 32.0 pcg LAB HEMETOLOGY METHOD 06/07/2024 1:06 PM EST [facility] MCHC 33.0 32.0 - 37.0 g/dL LAB HEMETOLOGY METHOD 06/07/2024 1:06 PM [facility] RDW 18.0(H) 11.0 - 15.0 % LAB HEMETOLOGY METHOD 06/07/2024 1:06 PM [facility] Platelets 108(L) 130 - 400 K/mcL LAB HEMETOLOGY METHOD 06/07/2024 1:06 PM [facility] MPV 10.7 7.0 - 11.0 FL LAB HEMETOLOGY METHOD 06/07/2024 1:06 PM [facility] NRBC 0.0 <1.0 % LAB HEMETOLOGY METHOD 06/07/2024 1:06 PM [facility] NRBC Absolute 0.00 <0.10 K/mcL LAB HEMETOLOGY METHOD 06/07/2024 1:06 PM [facility] Blood Venous blood specimen / Unknown Venipuncture / Unknown 06/07/2024 10:48 AM EST 06/07/2024 12:01 PM EST Gerry Barksdale LAB BLOOD ORDERABLES Final Resul t [facility] [address] [place] [address], documented in this encounter Visit Diagnoses Diagnosis Sepsis, unspecified organism (CMS/HCC V24, CMS/HCC V28) documented in this encounter Care Teams Top Inventory Control Executive Relationship Specialty Start Date End Date Dalia Harmon PA [address] [place] [address], [address] [place] [address] PCP - General 05/10/24 documented as of this encounter
--- OUTSIDE RECORDS SUMMARY | 2024-07-29 11:33 | XMS_ITS | Encounter Summary ---
Author Organization [facility] Address [address] [place] [address] Care Team Providers Care Blister Packing Machine Tender Name Role Phone Dalia Harmon Primary Care Provider [phone] Encounter Details Date Type Department Care Team (Late st Contact Info) Description 03/04/2024 Lab Requisition [facility] - Main Lab [address] [facility] [place] [address] Gerry Barksdale MD [address] [address] Vitamin D deficiency, unspecified; Type 2 diabetes mellitus without complications (CMS/HCC V24, CMS/HCC V28); Essential (primary) hypertension Social History Tobacco Use [...] 9:10 AM EDT Office Visit Gastroenterology - [place] [address] [place] [phone] Han Sloan DO [address] [place] [address] documented as of this encounter Procedures Procedure [...] LAB CHEMISTRY METHOD 03/04/2024 12:40 PM EST [facility] ([facility] Blood Venous blood specimen / Unknown Venipuncture / Unknown 03/04/2024 9:21 AM EST 03/04/2024 11:40 AM EST us Gerry Barksdale MD LAB BLOOD ORDERABLES Final Re sult Performing Organization Address [facility]/ZIP Co de Phone Number [facility] [address] [place] [address], [place] [phone] * Hemoglobin A1c (03/04/2024 9:21 AM EST) Hemoglobin A1C 4.7 <6.5 % LAB CHEMISTRY METHOD 03/04/2024 2:46 PM EST [facility] Mean Bld Glu Estim. 88 mg/dL LAB CHEMISTRY METHOD 03/04/2024 2:46 PM EST [facility] Blood Venous blood specimen / Unknown Venipuncture / Unknown 03/04/2024 9:21 AM EST 03/04/2024 11:40 AM EST us Gerry Barksdale MD LAB BLOOD ORDERABLES Final Re sult Performing Organization Address [facility] de Phone Number [facility] [address] [place] [address], [place] [phone] * (ABNORMAL) Vitamin B12 (03/04/2024 9:21 AM EST) Pathologist [facility] Vitamin B-12 923(H) 250 - 900 pcg/mL LAB CHEMISTRY METHOD 03/04/2024 1:03 PM EST [facility] Blood Venous blood specimen / Unknown Venipuncture / Unknown 03/04/2024 9:21 AM EST 03/04/2024 11:40 AM EST us Gerry Barksdale MD LAB BLOOD ORDERABLES Final Re sult Performing Organization Address City/[facility]/ZIP Co de Phone Number [facility] [address] [place] [address], [place] [phone] * Folate (03/04/2024 9:21 AM EST) [facility] Folate 11.0 2.8 - 17.0 ng/ml LAB CHEMISTRY METHOD 03/04/2024 1:03 PM [facility] Blood Venous blood specimen / Unknown Venipuncture / Unknown 03/04/2024 9:21 AM EST 03/04/2024 11:40 AM EST us Gerry Barksdale MD LAB BLOOD ORDERABLES Final Re sult Performing Organization Address City/[facility]/ZIP Co de Phone Number [facility] [address] [place] [address], [place] [phone] * Thyroid stimulating hormone (03/04/2024 9:21 AM EST) [facility] TSH 3.12 0.40 - 4.00 mcIU/mL LAB CHEMISTRY METHOD 03/04/2024 12:40 PM [facility] Blood Venous blood specimen / Unknown Venipuncture / Unknown 03/04/2024 9:21 AM EST 03/04/2024 11:40 AM EST us Gerry Barksdale MD LAB BLOOD ORDERABLES Final Re sult [facility] [address] [place] [address], [place] [phone] * (ABNORMAL) Comprehensive metabolic panel (03/04/2024 9:21 AM EST) [facility] Sodium 137 133 - 145 mmol/L LAB CHEMISTRY METHOD 03/04/2024 1:03 PM [facility] Potassium 4.2 3.5 - 5.5 mmol/L LAB CHEMISTRY METHOD 03/04/2024 1:03 PM [facility] Chloride 100 96 - 110 mmol/L LAB CHEMISTRY METHOD 03/04/2024 1:03 PM [facility] CO2 29 21 - 32 mmol/L LAB CHEMISTRY METHOD 03/04/2024 1:03 PM [facility] Anion Gap 8 3 - 11 LAB CHEMISTRY METHOD 03/04/2024 1:03 PM [facility] Glucose 217(H) 70 - 100 mg/dL LAB CHEMISTRY METHOD 03/04/2024 1:03 PM [facility] BUN 18 5 - 25 mg/dL LAB CHEMISTRY METHOD 03/04/2024 1:03 PM [facility] Creatinine 0.64(L) 0.70 - 1.30 mg/dL LAB CHEMISTRY METHOD 03/04/2024 1:03 PM [facility] eGFR 104 >=60 mL/min/1. 73m2 LAB CHEMISTRY METHOD 03/04/2024 1:03 PM [facility] Comment:Calculation based on the??Chronic Kidney Disease Epidemiology Collaboration (CKD-EPI) equation refit??without adjustment for race. BUN/Creatinine Ratio 28.1 LAB CHEMISTRY METHOD 03/04/2024 1:03 PM [facility] Calcium 8.5 8.5 - 10.5 mg/dL LAB CHEMISTRY METHOD 03/04/2024 1:03 PM [facility] AST (SGOT) 38 10 - 42 unit/L LAB CHEMISTRY METHOD 03/04/2024 1:03 PM [facility] ALT (SGPT) 25 10 - 60 unit/L LAB CHEMISTRY METHOD 03/04/2024 1:03 PM [facility] Alkaline Phosphatase 136(H) 42 - 121 unit/L LAB CHEMISTRY METHOD 03/04/2024 1:03 PM [facility] Total Protein 5.7(L) 6.0 - 8.0 g/dL LAB CHEMISTRY METHOD 03/04/2024 1:03 PM [facility] Albumin 2.6(L) 3.2 - 5.0 g/dL LAB CHEMISTRY METHOD 03/04/2024 1:03 PM [facility] Total Bilirubin 2.8(H) 0.0 - 1.4 mg/dL LAB CHEMISTRY METHOD 03/04/2024 1:03 PM [facility] Blood Venous blood specimen / Unknown Venipuncture / Unknown 03/04/2024 9:21 AM EST 03/04/2024 11:40 AM EST Gerry Barksdale MD LAB BLOOD ORDERABLES Final Re sult [facility] [address] [place] [address], * (ABNORMAL) Complete blood count (03/04/2024 9:21 AM EST) WBC 4.5(L) 4.8 - 10.8 K/mcL LAB HEMETOLOGY METHOD 03/04/2024 11:58 AM [facility] RBC 3.90(L) 4.50 - 5.50 M/mcL LAB HEMETOLOGY METHOD 03/04/2024 11:58 AM [facility] Hemoglobin 13.6 13.5 - 17.5 g/dL LAB HEMETOLOGY METHOD 03/04/2024 11:58 AM [facility] Hematocrit 40.7(L) 42.0 - 54.0 % LAB HEMETOLOGY METHOD 03/04/2024 11:58 AM [facility] MCV 104.4(H) 79.0 - 98.0 FL LAB HEMETOLOGY METHOD 03/04/2024 11:58 AM [facility] MCH 34.9(H) 27.0 - 32.0 pcg LAB HEMETOLOGY METHOD 03/04/2024 11:58 AM [facility] MCHC 33.4 32.0 - 37.0 g/dL LAB HEMETOLOGY METHOD 03/04/2024 11:58 AM EST [facility] RDW 14.3 11.0 - 15.0 % LAB HEMETOLOGY METHOD 03/04/2024 11:58 AM [facility] Platelets 101(L) 130 - 400 K/mcL LAB HEMETOLOGY METHOD 03/04/2024 11:58 AM [facility] MPV 11.0 7.0 - 11.0 FL LAB HEMETOLOGY METHOD 03/04/2024 11:58 AM [facility] NRBC 0.0 <1.0 % LAB HEMETOLOGY METHOD 03/04/2024 11:58 AM [facility] NRBC Absolute 0.00 <0.10 K/mcL LAB HEMETOLOGY METHOD 03/04/2024 11:58 AM [facility] Blood Venous blood specimen / Unknown Venipuncture / Unknown 03/04/2024 9:21 AM EST 03/04/2024 11:40 AM EST us Gerry Barksdale MD LAB BLOOD ORDERABLES Final Re sult [facility] [address] [place] [address], documented in this encounter Visit Diagnoses Diagnosis Vitamin D deficiency, unspecified Type 2 diabetes mellitus without complications (CMS/HCC V24, CMS/HCC V28) Essential (primary) hypertension Unspecified essential hypertension documented in this encounter Care Teams Blister Packing Machine Tender Relationship Specialty Start Date End Date Dalia Harmon PA [address], [address] [place] [address] PCP - General 05/10/24 documented as of this encounter
--- OUTSIDE RECORDS SUMMARY | 2024-07-29 11:33 | XMS_ITS | Encounter Summary ---
Author Organization [facility] Address [address] [place] [address] Care Team Providers Care Director Of Accounts Payable Name Role Phone Dalia Harmon Primary Care Provider [phone] Encounter Details Date Type Department Care Team (Late st Contact Info) Description 05/26/2024 Lab Requisition [facility] - Main Lab [address] [facility] [place] [phone] Gerry Barksdale [address] [facility] [address] [place] [address] Weakness; Urinary tract infection, site [...] 9:10 AM EDT Office Visit Gastroenterology - [place] [address] [place] [address] [place] [address] [place] [address] documented as of this encounter Procedures Procedure [...] Vitamin B12 (05/26/2024 6:59 AM EST) Pathologist [facility] Vitamin B-12 1,309(H) 250 - 900 pcg/mL LAB CHEMISTRY METHOD 05/26/2024 1:39 PM EST [facility] Blood Venous blood specimen / Unknown Venipuncture / Unknown 05/26/2024 6:59 AM EST 05/26/2024 10:29 AM EST us Gerry Barksdale LAB BLOOD ORDERABLES Final Resul t [facility] [address] [place] [address], * Folate (05/26/2024 6:59 AM EST) Pathologist [facility] Folate 4.3 2.8 - 17.0 ng/ml LAB CHEMISTRY METHOD 05/26/2024 1:39 PM EST [facility] Blood Venous blood specimen / Unknown Venipuncture / Unknown 05/26/2024 6:59 AM EST 05/26/2024 10:29 AM EST [facility] LAB BLOOD ORDERABLES Final Resul t Performing Organization Address [facility] Co de Phone Number [facility] [address] [place] [address], [place] [phone] * (ABNORMAL) Thyroid stimulating hormone (05/26/2024 6:59 AM EST) TSH 5.20(H) 0.40 - 4.00 mcIU/mL LAB CHEMISTRY METHOD 05/26/2024 1:24 PM [facility] Blood Venous blood specimen / Unknown Venipuncture / Unknown 05/26/2024 6:59 AM EST 05/26/2024 10:29 AM EST [facility] LAB BLOOD ORDERABLES Final Resul t Performing Organization Address [facility] de Phone Number [facility] [address] [place] [address], [place] [phone] * (ABNORMAL) Comprehensive metabolic panel (05/26/2024 6:59 AM EST) Sodium 133 133 - 145 mmol/L LAB CHEMISTRY METHOD 05/26/2024 1:16 PM [facility] Potassium 3.6 3.5 - 5.5 mmol/L LAB CHEMISTRY METHOD 05/26/2024 1:16 PM [facility] Chloride 95(L) 96 - 110 mmol/L LAB CHEMISTRY METHOD 05/26/2024 1:16 PM [facility] CO2 31 21 - 32 mmol/L LAB CHEMISTRY METHOD 05/26/2024 1:16 PM [facility] Anion Gap 7 3 - 11 LAB CHEMISTRY METHOD 05/26/2024 1:16 PM [facility] Glucose 116(H) 70 - 100 mg/dL LAB CHEMISTRY METHOD 05/26/2024 1:16 PM [facility] BUN 15 5 - 25 mg/dL LAB CHEMISTRY METHOD 05/26/2024 1:16 PM [facility] Creatinine 0.52(L) 0.70 - 1.30 mg/dL LAB CHEMISTRY METHOD 05/26/2024 1:16 PM [facility] eGFR 111 >=60 mL/min/1. 73m2 LAB CHEMISTRY METHOD 05/26/2024 1:16 PM [facility] Comment:Calculation based on the??Chronic Kidney Disease Epidemiology Collaboration (CKD-EPI) equation refit??without adjustment for race. BUN/Creatinine Ratio 28.8 LAB CHEMISTRY METHOD 05/26/2024 1:16 PM [facility] Calcium 8.2(L) 8.5 - 10.5 mg/dL LAB CHEMISTRY METHOD 05/26/2024 1:16 PM [facility] AST (SGOT) 27 10 - 42 unit/L LAB CHEMISTRY METHOD 05/26/2024 1:16 PM [facility] ALT (SGPT) 20 10 - 60 unit/L LAB CHEMISTRY METHOD 05/26/2024 1:16 PM [facility] Alkaline Phosphatase 139(H) 42 - 121 unit/L LAB CHEMISTRY METHOD 05/26/2024 1:16 PM [facility] Total Protein 6.0 6.0 - 8.0 g/dL LAB CHEMISTRY METHOD 05/26/2024 1:16 PM [facility] Albumin 2.3(L) 3.2 - 5.0 g/dL LAB CHEMISTRY METHOD 05/26/2024 1:16 PM [facility] Total Bilirubin 3.2(H) 0.0 - 1.4 mg/dL LAB CHEMISTRY METHOD 05/26/2024 1:16 PM [facility] Blood Venous blood specimen / Unknown Venipuncture / Unknown 05/26/2024 6:59 AM EST 05/26/2024 10:29 AM EST Gerry Barksdale LAB BLOOD ORDERABLES Final Resul t [facility] [address] [place] [address], * (ABNORMAL) Complete blood count (05/26/2024 6:59 AM EST) [facility] WBC 7.6 4.8 - 10.8 K/mcL LAB HEMETOLOGY METHOD 05/26/2024 11:18 AM [facility] RBC 3.50(L) 4.50 - 5.50 M/mcL LAB HEMETOLOGY METHOD 05/26/2024 11:18 AM [facility] Hemoglobin 12.2(L) 13.5 - 17.5 g/dL LAB HEMETOLOGY METHOD 05/26/2024 11:18 AM [facility] Hematocrit 35.5(L) 42.0 - 54.0 % LAB HEMETOLOGY METHOD 05/26/2024 11:18 AM [facility] MCV 100.6(H) 79.0 - 98.0 FL LAB HEMETOLOGY METHOD 05/26/2024 11:18 AM [facility] MCH 34.6(H) 27.0 - 32.0 pcg LAB HEMETOLOGY METHOD 05/26/2024 11:18 AM [facility] MCHC 34.4 32.0 - 37.0 g/dL LAB HEMETOLOGY METHOD 05/26/2024 11:18 AM [facility] RDW 15.9(H) 11.0 - 15.0 % LAB HEMETOLOGY METHOD 05/26/2024 11:18 AM [facility] Platelets 139 130 - 400 [...] [facility] [address] [place] [address], documented in this encounter Visit Diagnoses Diagnosis Weakness Other malaise and fatigue Urinary tract infection, site not specified documented in this encounter Care Teams Director Of Accounts Payable Relationship Specialty Start Date End Date Dalia Harmon PA [address] [place] [address], [address] [place] [address] PCP - General 05/10/24 documented as of this encounter
--- OUTSIDE RECORDS SUMMARY | 2024-07-29 11:33 | XMS_ITS | Encounter Summary ---
Author Organization [facility] Address [address] [place] [address] Care Team Providers Care Epic Ambulatory Analysts Name Role Phone Dalia Harmon Primary Care Provider [phone] Encounter Details Date Type Department Care Team (Late st Contact Info) Description 03/12/[address] [facility] - Main Lab [address] [facility] [place] [phone] Gerry Barksdale [address] [place] [address] [address] [place] [address] Essential (primary) hypertension Social History [...] 9:10 AM EDT Office Visit Gastroenterology - [place] [address] [place] [address] Han Sloan DO [address] [facility] [address] [place] [address] documented as of this encounter Visit Diagnoses Diagnosis Essential (primary) hypertension Unspecified essential hypertension documented in this encounter Care Teams Epic Ambulatory Analysts Relationship Specialty Start Date End Date Dalia Harmon PA [address] [place] [address], [address] [place] [address] PCP - General 05/10/24 documented as of this encounter
--- OUTSIDE RECORDS SUMMARY | 2024-07-29 11:33 | XMS_ITS | Clinical Summary ---
Author Organization [facility] Address [address] [place] [phone] Phone Care Team Providers Care [employer] Ii Assembler Name Role Phone Dalia Harmon Primary Care Provider [phone] Allergies Active Allergy Reactions Criticality Noted Date [...] 07/07/19 25 Pseudomonal bacteremia 06/13/2024 Severe sepsis ([facility] V24, [facility] V28) 025 Candidal intertrigo 03/01/2024 Anasarca 02/26/2024 Lymphedema 08/01/2022 Thrombocytopenia ([facility] V24) 08/01/2022 Overview (12/25/2023): Related to iron overload syndrome per prior records COPD (chronic obstructive pu lmonary disease) ([facility] V24, [facility] V28) 08/01/2022 Avascular necrosis of bone o f hip, left ([facility] V24, [facility] V28) 06/25/2022 Overview (12/25/2023): Was seen by [facility] who recommended weight loss prior to elective hip arthroplasty of left hip Was seen by [facility] who concurred with this Insomnia 04/13/2018 Chronic allergic conjunctivitis 04/13/2018 Anxiety 04/13/2018 Esophageal varices ([facility] V24, [facility] V28) Hemochromatosis 12/03/2017 Overview (12/25/2023): 2 heterozygous gene mutations were found and recommended [id number] therapeutic phlebotomy. Follows with GI. Liver cirrhosis secondary to CASTANEDA (nonalcoholic steatohepatitis) ([facility] V24, [facility] V28) 12/03/2017 Erosive gastritis 10/13/2017 Obstructive sleep apnea 05/21/2016 Overview (12/25/2023): On CPAP Hypertension 12/14/2014 Hyperlipidemia 12/12/2014 Diabetes mellitus type 2 wit h neurological manifestations ([facility] V24, [facility] V28) 12/12/2014 Depression with anxiety 12/12/2014 Benign colonic polyp 12/12/2014 Vitamin D deficiency 07/27/2012 Internal hemorrhoids 07/27/2010 Diverticulosis 05/29/2010 Encounters Date Type Department Care Team Description 07/26/2024 Telephone Gastroenterology [facility] 175 [facility] [address] [phone] Han Sloan DO provider call back 07/16/[address] [facility] 175 [facility] [address] [phone] Han Sloan DO 07/06/2024 3:56 PM EDT - 07/07/2024 12:46 PM EDT Hospital Encounter [facility] Intermediate Care Unit [address] [place] [phone] Rosaura Iglesias MD Kela, Kashyap Devendrabhai, MD Abrokwah, Foster Myles G, CRNA Freeman, Katharine O, MD Personal history of portal hypertension (Primary Dx); Esophageal varices without bleeding, unspecified esophageal varices type (CMS/HCC V24, CMS/HCC V28); Liver cirrhosis secondary to CASTANEDA (nonalcoholic steatohepatitis) (CMS/HCC V24, CMS/HCC V28) Discharge Disposition: Home-Health Care [facility] 07/06/2024 2:08 PM EDT Anesthesia Event [facility] Interventional Radiology [address] [place] [phone] Paul Alfaro DO 07/05/2024 [facility]phone [facility] [address] [phone] Han Sloan DO 06/29/2024 [facility]phone [facility] 175 [facility] [address] [phone] Han Sloan DO Appointment (Upcoming Echo) 06/24/2024 11:20 AM EST Office [facility] [address] [phone] Han Sloan DO Cirrhosis of liver with ascites, unspecified hepatic cirrhosis type (CMS/HCC V24, CMS/HCC V28) (Primary Dx); Other ascites; Deep vein thrombosis of portal vein 06/18/2024 Lab Requisition [facility] [address] [place] [address] Gerry Barksdale Sepsis, unspecified organism ([facility] V24, [facility] V28) 06/14/2024 Telephone [facility] 175 [facility] 175 [facility] [address] [place] [phone] Han Sloan DO provider call back 06/13/2024 12:02 PM EST - 06/16/2024 2:30 PM EST Hospital Encounter [facility] Medical Surgical Unit [address] [place] [phone] Barak Benjamin MD Flores, Carlos M, MD Kela, Kashyap Devendrabhai, MD Mohani, Priya, MD Bacteremia (Primary Dx); Cuello catheter in place; Urinary tract infection associated with indwelling urethral catheter, initial encounter ([facility] V24); Hx of ascites; Anasarca Discharge Disposition: Home-Health Care [facility] 06/11/2024 10:01 PM EST - 06/12/2024 12:27 PM EST Emergency [facility] Emergency [address] [place] [phone] Barak Benjamin MD Gross hematuria (Primary Dx); Tachycardia; Abnormal chest CT Discharge Disposition: Home or Self Care 06/04/2024 Lab Requisition [facility] [address] [place] [address] Gerry Barksdale Sepsis, unspecified organism ([facility] V24, [facility] V28) 06/03/2024 Telephone [facility] 175 [facility] [address] [phone] Han Sloan DO TESTING 05/28/2024 Lab Requisition [facility] [address] [place] [address] Gerry Barksdale Sepsis, unspecified organism (CMS/HCC V24, [facility]/HCC V28) 05/26/2024 Lab Requisition [facility] 299 [facility] [place] [address] Gerry Barksdale; Urinary tract infection, site not specified 05/25/2024 Telephone Gastroenterology [facility] [address] 175 [facility] [address] [place] [address] Han Sloan DO 05/24/2024 Telephone [facility] 175 [facility] 175 [facility] [address] [place] [phone] Han Sloan, provider call back 05/19/2024 3:40 PM EST - 05/25/2024 4:38 PM EST Hospital Encounter [facility] Medical Surgical Unit [address] [place] [phone] Emily Singh DO Bukalo, Nermina, MD Nasser, Nada S, MD Kela, Kashyap Devendrabhai, MD Bilateral leg edema (Primary Dx); Urinary tract infection without hematuria, site unspecified; Hepatic cirrhosis, unspecified hepatic cirrhosis type, unspecified whether ascites present ([facility]/HCC V24, [facility]/HCC V28); Cellulitis of left leg; Severe sepsis [facility] V28) Discharge Disposition: Alf Facility 05/12/2024 9:15 AM EST - 05/12/2024 11:59 PM EST Hospital Encounter [facility] CT Scan [address] [place] [phone] Decompensated cirrhosis (CMS/HCC V24, [facility]/HCC V28); Ascites due to alcoholic cirrhosis ([facility]/HCC V24, [facility]/HCC V28); Urinary retention Discharge Disposition: Home or Self Care 05/11/2024 10:27 AM EST - 05/11/2024 11:59 PM EST Hospital Encounter [facility] Ultrasound [address] [place] [phone] Ascites due to alcoholic cirrhosis ([facility]/HCC V24, [facility] V28) Discharge Disposition: Home or Self Care 05/10/2024 Telephone [facility] [address] [place] [phone] Em Dixon DO Faxed Order (Silvia MARLINEMarina) 05/05/2024 Telephone Gastroenterology - [place] 175 [facility] 175 [facility] [address] [place] [address] Han Sloan DO from Last 3 Months Surgical History Surgery Date Site/Laterality Comments BACK SURGERY PROCEDURE: HISTORICAL BACK SURGERY; COMMENT: spinal diskectomy, osteophytectomy x4 ESOPHAGOGASTRODUODENOSCOPY PROCEDURE: IN ESOPHAGOGASTRODUODENOSCOPY TRANSORAL DIAGNOSTIC COLONOSCOPY N/A PROCEDURE: HISTORICAL COLONOSCOPY OTHER SURGICAL HISTORY Right PROCEDURE: IN STAB PHLEBT VARICOSE VEINS 1 XTR > 20 INCS Medical History Medical History Date Comments Anxiety 04/13/2018 DX:Anxiety Benign colonic polyp 12/12/2014 DX:Benign c olonic polyp Chronic allergic conjunctivitis 04/13/2018 DX:Chronic allergic conjunctivitis Cirrhosis of liver (CMS/HCC V24, CMS/HCC V28) 12/03/2017 DX:Cirrhosis of liver (HCC) Depression with anxiety 12/12/2014 DX:Depre ssion with anxiety Diverticulosis 05/29/2010 DX:Diverticulosi s Diabetes mellitus type 2, uncomplicated (CMS/HCC V24, CMS/HCC V28) 12/12/2014 DX:Diabetes mellitus type 2, uncomplicated (HCC) Erosive gastritis 10/13/2017 DX:Erosive gas tritis Esophageal varices (CMS/HCC V24, CMS/HCC V28) 12/03/2017 DX:Esophageal varices (HCC) Hyperlipidemia 12/12/2014 DX:Hyperlipidemi a Hypertension 12/14/2014 DX:Hypertension Insomnia 04/13/2018 DX:Insomnia Internal hemorrhoids 07/27/2010 DX:Internal hemorrhoids Iron overload syndrome 12/03/2017 DX:Iron o verload syndrome Morbid obesity (CMS/HCC V24, CMS/HCC V28) 09/10/2017 DX:Morbid obesity (HCC) Obstructive sleep apnea 05/21/2016 DX:Obstr uctive sleep apnea Thoracic or lumbosacral neur itis or radiculitis 09/13/2011 DX:Thoracic or lumbosacral n euritis or radiculitis Vitamin D deficiency 07/27/2012 DX:Vitamin D deficiency Portal hypertension (CMS/HCC V24, CMS/HCC V28) Ascites Thrombocytopenia (CMS/HCC V24) Splenomegaly BPH (benign prostatic hyperplasia) Portal vein [...] 9:10 AM EDT Office Visit Gastroenterology - [place] [address] [facility] [address] [place] [address] Han Sloan DO [address] [address] Health Maintenance Due Date Last Done Comments [...] this topic Medical Devices Implanted Type Area Tire Buster Device Identifier Shelf Expiration Date Model / Serial / Lot Stent Viatorr 8-10mmx8/2cm - [id number] - [id number] Implanted:Qty: 1 on 07/06/2024 by Paul Bonner MD at [facility] Peripheral Vasc Drug Eluting Stents Right: Liver [employer] [id number] 05/20/2026 [id number] / [id number] / Stent Viatorr 8-10mmx8/2cm - [id number] - [id number] Implanted:Qty: 1 on 07/06/2024 by Paul Bonner MD at [facility] Peripheral Vasc Drug Eluting Stents Right: Liver [employer] [id number] 03/29/2027 [id number] / [id number] / Procedures Procedure Name Priority Date/Time Associated [...] Routine 05/12/2024 10:27 AM EST Decompensated cirrhosis (CMS/HCC V24, CMS/HCC V28) 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 V24, CMS/HCC V28) Urinary retention BASIC METABOLIC PANEL Routine 05/11/2024 12:25 PM EST DIFFERENTIAL BODY FLUID Routine 05/11/19 12:04 PM EST 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 V24, CMS/HCC V28) CELL COUNT WITH REFLEX DIFFERENTIAL, BODY FLUID Routine 05/11/2024 12:04 PM EST 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 V24, CMS/HCC V28) PROTEIN, BODY FLUID Routine 05/11/2024 1 2:04 PM EST 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 V24, CMS/HCC V28) ALBUMIN, BODY FLUID Routine 05/11/2024 1 2:04 PM EST 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 V24, CMS/HCC V28) US PARACENTESIS W IMAGE GUIDANCE STAT 05/11/2024 12:02 PM EST 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 V24, CMS/HCC V28) from Last 3 Months Results * Activated Partial Thromboplastin Time - STAT (07/07/2024 11:15 AM EDT) [facility] aPTT 35.3 24.1 - 39.3 sec LAB COAGULATION METHOD 07/07/2024 12:17 PM EDT [facility] Blood Venous blood specimen / Unknown Venipuncture / Unknown 07/07/2024 11:15 AM EDT 07/07/2024 11:55 AM EDT us Annie RAND LAB BLOOD ORDERABLES Final Result [facility] [address] [place] [address], [place] [phone] * (ABNORMAL) Complete blood count (07/07/2024 6:20 AM EDT) Only the most recent of9 resultswithin the time period is included. [facility] WBC 5.0 4.8 - 10.8 K/mcL LAB HEMETOLOGY METHOD 07/07/2024 7:19 AM EDT [facility] RBC 3.60(L) 4.50 - 5.50 M/mcL LAB HEMETOLOGY METHOD 07/07/2024 7:19 AM EDT [facility] Hemoglobin 12.7(L) 13.5 - 17.5 g/dL LAB HEMETOLOGY METHOD 07/07/2024 7:19 AM T [facility] Hematocrit 38.0(L) 42.0 - 54.0 % LAB HEMETOLOGY METHOD 07/07/2024 7:19 AM T [facility] MCV 104.4(H) 79.0 - 98.0 FL LAB HEMETOLOGY METHOD 07/07/2024 7:19 AM EDT [facility] MCH 34.9(H) 27.0 - 32.0 pcg LAB HEMETOLOGY METHOD 07/07/2024 7:19 AM EDT [facility] MCHC 33.4 32.0 - 37.0 g/dL LAB HEMETOLOGY METHOD 07/07/2024 7:19 AM EDT [facility] RDW 15.3(H) 11.0 - 15.0 % LAB HEMETOLOGY METHOD 07/07/2024 7:19 AM EDT [facility] Platelets 98(L) 130 - 400 K/mcL LAB HEMETOLOGY METHOD 07/07/2024 7:19 AM EDT [facility] Comment:previously verified by slide MPV 10.6 7.0 - 11.0 FL LAB HEMETOLOGY METHOD 07/07/2024 7:19 AM EDT [facility] NRBC 0.0 <1.0 % LAB HEMETOLOGY METHOD 07/07/2024 7:19 AM EDT [facility] NRBC Absolute 0.00 <0.10 K/mcL LAB HEMETOLOGY METHOD 07/07/2024 7:19 AM [facility] Blood Venous blood specimen / Unknown Venipuncture / Unknown 07/07/2024 6:20 AM EDT 07/07/2024 6:57 AM EDT us Paola RAND LAB BLOOD ORDERABLES Final Resu lt [facility] [address] [place] [address], * Magnesium (07/07/2024 6:20 AM EDT) Only the most recent of8 resultswithin the time period is included. Magnesium 2.3 1.9 - 2.6 mg/dL LAB CHEMISTRY METHOD 07/07/2024 7:39 AM [facility] Blood Venous blood specimen / Unknown Venipuncture / Unknown 07/07/2024 6:20 AM EDT 07/07/2024 6:55 AM EDT us Paola RAND LAB BLOOD ORDERABLES Final Resu lt [facility] [address] [place] [address], [place] [phone] * (ABNORMAL) Comprehensive metabolic panel (07/07/2024 6:20 AM EDT) Only the most recent of4 resultswithin the time period is included. [facility] Sodium 130(L) 133 - 145 mmol/L LAB CHEMISTRY METHOD 07/07/2024 8:12 AM [facility] Potassium 5.4 3.5 - 5.5 mmol/L LAB CHEMISTRY METHOD 07/07/2024 8:12 AM [facility] Chloride 97 96 - 110 mmol/L LAB CHEMISTRY METHOD 07/07/2024 8:12 AM [facility] CO2 27 21 - 32 mmol/L LAB CHEMISTRY METHOD 07/07/2024 8:12 AM [facility] Anion Gap 6 3 - 11 LAB CHEMISTRY METHOD 07/07/2024 8:12 AM [facility] Glucose 153(H) 70 - 100 mg/dL LAB CHEMISTRY METHOD 07/07/2024 8:12 AM [facility] BUN 10 5 - 25 mg/dL LAB CHEMISTRY METHOD 07/07/2024 8:12 AM [facility] Creatinine 0.62(L) 0.70 - 1.30 mg/dL LAB CHEMISTRY METHOD 07/07/2024 8:12 AM [facility] eGFR 105 >=60 mL/min/1. 73m2 LAB CHEMISTRY METHOD 07/07/2024 8:12 AM [facility] Comment:Calculation based on the??Chronic Kidney Disease Epidemiology Collaboration (CKD-EPI) equation refit??without adjustment for race. BUN/Creatinine Ratio 16.1 LAB CHEMISTRY METHOD 07/07/2024 8:12 AM [facility] Calcium 8.4(L) 8.5 - 10.5 mg/dL LAB CHEMISTRY METHOD 07/07/2024 8:12 AM [facility] AST (SGOT) 67(H) 10 - 42 unit/L LAB CHEMISTRY METHOD 07/07/2024 8:12 AM [facility] Comment:Results verified by repeat testing ALT (SGPT) 39 10 - 60 unit/L LAB CHEMISTRY METHOD 07/07/2024 8:12 AM [facility] Comment:Results verified by repeat testing Alkaline Phosphatase 167(H) 42 - 121 unit/L LAB CHEMISTRY METHOD 07/07/2024 8:12 AM [facility] Total Protein 5.9(L) 6.0 - 8.0 g/dL LAB CHEMISTRY METHOD 07/07/2024 8:12 AM [facility] Albumin 2.4(L) 3.2 - 5.0 g/dL LAB CHEMISTRY METHOD 07/07/2024 8:12 AM [facility] Total Bilirubin 3.8(H) 0.0 - 1.4 mg/dL LAB CHEMISTRY METHOD 07/07/2024 8:12 AM [facility] Blood Venous blood specimen / Unknown Venipuncture / Unknown 07/07/2024 6:20 AM EDT 07/07/2024 6:55 AM EDT us Paola RAND LAB BLOOD ORDERABLES Final Resu lt [facility] [address] [place] [address], [place] [phone] * (ABNORMAL) POCT Glucose, blood (07/06/2024 5:56 PM EDT) Only the most recent of2 resultswithin the time period is included. Glucose POCT 141(H) 70 - 100 mg/dL 07/06/2024 5:57 PM EDT [facility] Blood Capillary blood specimen / Unknown 07/06/2024 5:56 PM EDT 07/06/2024 5:58 PM EDT us Rosaura Iglesias MD LAB POINT OF CARE TE ST DOCKED DEVICE UNSOLICITED RESULTS Final Result [facility] [address] [place] [address], [place] [phone] * IR Insert Hepatic Shunt TIPS (07/06/2024 [...] Signed Date: 07/06/2024 17:22 ET Workstation ID: [id number] Transcribed By: Self Edit Transcribed Date: 07/06/2024 [...] and a 0.035 guidewire was inserted. ??A 10-Lao by 45 cm check flow sheath was inserted and advanced to the IVC. ??A 5-Lao MPA catheter was then used to catheterize the right hepatic vein. ??Venogram confirms position in the hepatic vein. ??The 10-Lao by 45 cm sheath was advanced over [...] with an 6 mm x 6 cm MECHANIC ASSISTANT balloon. ??The sheath was then advanced into [...] and a 0.035 guidewire was inserted. A 10-Lao by45 cm check flow sheath was inserted and advanced to the IVC. A 5-FrenchMPA catheter was then used to catheterize the right hepatic vein.Venogram confirms position in the hepatic vein. The 10-Lao by 45 cmsheath was advanced over the catheter into the right hepatic vein. TheYellowSchedule TIPS set was then introduced through the [...] dilatedwith an 6 mm x 6 cm MECHANIC ASSISTANT balloon. The sheath was then advanced into [...] Signed Date: 07/06/2024 17:22 ET Workstation ID: [id number] Transcribed By: Self Edit Transcribed Date: 07/06/2024 17:09 ET us Job Anderson MD IMG IR PROCEDURES Final Re sult * TH AN ENDOTRACHEAL(NO CHARGE) (07/06/2024 3:00 PM EDT) Narrative Yovanny Mendez CRNA - 07/06/2024 3:00 PM EDT Yovanny Mendez CRNA ? 07/06/2024 ??3:01 PM General Information and Staff Patient location during procedure: [place] Resident/WEB DEVELOPER: Yovanny Mendez CRNA Performed: resident/WEB DEVELOPER/CAA Performed by: Yovanny Mendez CRNA Authorized by: [...] time period is included. Pathologist [facility] Protime 15.9(H) 10.6 - 13.9 sec LAB COAGULATION METHOD 07/06/2024 2:28 PM EDT [facility] INR 1.3 LAB COAGULATION METHOD 07/06/2024 2:28 PM EDT [facility] Blood Venous blood specimen / Unknown 07/06/2024 1:45 PM EDT 07/06/2024 1:55 PM EDT us Paul Bonner MD LAB BLOOD ORDERABLES Final Resu lt [facility] [address] [place] [address], [place] [phone] * Type and screen (07/06/2024 1:45 PM EDT) ABO Group B 07/06/2024 2:47 PM EDT [facility] Rh Type Positive 07/06/2024 2:47 PM EDT [facility] Antibody Screen Negative 07/06/2024 2:47 PM T [facility] Blood Venous blood specimen / Unknown 07/06/2024 1:45 PM EDT 07/06/2024 1:55 PM EDT [facility] LAB BLOOD BANK TEST ORDERABLES Final Result [facility] [address] [place] [address], [place] [phone] * (ABNORMAL) Basic metabolic panel (07/06/2024 1:45 PM EDT) Only the most recent of13 resultswithin the time period is included. Sodium 135 133 - 145 mmol/L LAB CHEMISTRY METHOD 07/06/2024 2:21 PM [facility] Potassium 5.0 3.5 - 5.5 mmol/L LAB CHEMISTRY METHOD 07/06/2024 2:21 PM [facility] Comment:Hemolysis present Chloride 100 96 - 110 mmol/L LAB CHEMISTRY METHOD 07/06/2024 2:21 PM [facility] CO2 25 21 - 32 mmol/L LAB CHEMISTRY METHOD 07/06/2024 2:21 PM [facility] Anion Gap 10 3 - 11 LAB CHEMISTRY METHOD 07/06/2024 2:21 PM [facility] Glucose 161(H) 70 - 100 mg/dL LAB CHEMISTRY METHOD 07/06/2024 2:21 PM [facility] BUN 8 5 - 25 mg/dL LAB CHEMISTRY METHOD 07/06/2024 2:21 PM [facility] Creatinine 0.70 0.70 - 1.30 mg/dL LAB CHEMISTRY METHOD 07/06/2024 2:21 PM EDT [facility] eGFR 102 >=60 mL/min/1. 73m2 LAB CHEMISTRY METHOD 07/06/2024 2:21 PM EDT [facility] Comment:Calculation based on the??Chronic Kidney Disease Epidemiology Collaboration (CKD-EPI) equation refit??without adjustment for race. BUN/Creatinine Ratio 11.4 LAB CHEMISTRY METHOD 07/06/2024 2:21 PM EDT [facility] Calcium 8.7 8.5 - 10.5 mg/dL LAB CHEMISTRY METHOD 07/06/2024 2:21 PM EDT [facility] Blood Venous blood specimen / Unknown 07/06/2024 1:45 PM EDT 07/06/2024 1:55 PM EDT us Paul Bonner MD LAB BLOOD ORDERABLES Final Resu lt [facility] [address] [place] [address], [place] [phone] * (ABNORMAL) TRANSTHORACIC ECHOCARDIOGRAM (TTE) COMPLETE W/ CONTRAST (06/15/2024 2:35 PM EST) Left Atrium Major [place] 5.9 cm CV PACS LA Area Sys [...] GEMUSE QTc 485 ms GEMUSE P Wave [place] 28 degrees GEMUSE R Sanford -36 degrees GEMUSE T Sanford 29 degrees GEMUSE ECG Interpretation Normal sinus rhythm Left axis deviation Right bundle branch block Abnormal ECG When compared with ECG of 12-JUN-2024 03:57, No significant change was found Confirmed by MD Felix [place] ([id number]) on 06/15/2024 5:37:07 PM GEMUSE 06/15/2024 12:5 3 PM EST 06/15/2024 5:37 PM EST us Liang Reinoso MD ECG ORDERABLES Fin al Result GEMUSE * Phosphorus (06/15/2024 6:38 AM EST) Only the most recent of5 resultswithin the time period is included. [facility] Phosphorus 3.0 2.5 - 4.5 mg/dL LAB CHEMISTRY METHOD 06/15/2024 7:50 AM EST [facility] Blood Venous blood specimen / Unknown Venipuncture / Unknown 06/15/2024 6:38 AM EST 06/15/2024 7:06 AM EST us Liang Reinoso MD LAB BLOOD ORDERABLE S Final Result Performing Organization Address [facility] Co de Phone Number [facility] [address] [place] [address], [place] [phone] * Cell count with reflex differential, body fluid (06/14/2024 10:19 AM EST) Only the most recent of2 resultswithin the time period is included. Body Fluid Total Nucleated Cells 218 /mm3 LAB HEMETOLOGY METHOD 06/14/2024 11:38 AM EST [facility] Body Fluid RBC 1,000 /mm3 LAB HEMETOLOGY METHOD 06/14/2024 11:38 AM EST [facility] Body Fluid Color Yellow 06/14/2024 11:38 AM [facility] Body Fluid Clarity Clear 06/14/2024 11:38 AM EST [facility] Body Fluid Source Peritoneal 06/14/2024 11:38 AM EST [facility] Peritoneal Fluid Peritoneal cavity structure / Unknown Non-blood Collection / Unknown 06/14/2024 10:19 AM EST 06/14/2024 10:27 AM EST Narrative [facility] - 06/14/2024 11:38 AM EST No reference ranges have been established for body fluids. Clinical correlation recommended. Cristiana RAND LAB BODY FLUIDS AND STO OLS ORDERABLES Final Result Performing Organization Address City/[facility]/ZIP Co de Phone Number [facility] [address] [place] [address], [place] [phone] * Culture body fluid with gram stain (06/14/2024 10:19 AM EST) Fluid Culture No growth at 3 days LAB MICROBIOLOGY METHOD 06/17/2024 11:25 AM EST [facility] Gram Stain Result No polymorphonuclear leukocytes, No epithelial cells, and No organisms noted 06/17/2024 11:25 AM EST [facility] Peritoneal Fluid Peritoneal cavity structure / Unknown Non-blood Collection / Unknown 06/14/2024 10:19 AM EST 06/14/2024 10:26 AM EST Cristiana RAND LAB MICROBIOLOGY - GENE RAL ORDERABLES Final Result [facility] [address] [place] [address], [place] [phone] * Differential body fluid (06/14/2024 10:19 AM EST) Only the most recent of2 resultswithin the time period is included. Fluid Neutrophils % 4 % 06/14/2024 11:38 AM EST [facility] Fluid Lymphocytes % 74 % 06/14/2024 11:38 AM EST [facility] Fluid Monocytes/Macrop hages 22 % 06/14/2024 11:38 AM EST [facility] Fluid Eosinophils % 0 % 06/14/2024 11:38 AM EST [facility] Fluid Basophils % 0 % 06/14/2024 11:38 AM EST [facility] Fluid Other Cells % 0 % 06/14/2024 11:38 AM EST [facility] Peritoneal Fluid Peritoneal cavity structure / Unknown Non-blood Collection / Unknown 06/14/2024 10:19 AM EST 06/14/2024 10:27 AM EST Narrative [facility] - 06/14/2024 11:38 AM EST No reference ranges have been established for body fluids. Clinical correlation recommended. Cristiana RAND LAB BODY FLUIDS AND STO OLS ORDERABLES Final Result Performing Organization Address City/[facility]/ZIP Co de Phone Number [facility] [address] [place] [address], [place] [phone] * Culture fungal, other (06/14/2024 10:19 AM EST) Culture, Fungus Negative for Fungus after 4 Weeks 07/12/2024 10:17 AM EDT [facility] Peritoneal Fluid Peritoneal cavity structure / Unknown Non-blood Collection / Unknown 06/14/2024 10:19 AM EST 06/14/2024 10:27 AM EST Cristiana RAND LAB MICROBIOLOGY - GENE RAL ORDERABLES Final Result Performing Organization Address City/[facility]/ZIP Co de Phone Number [facility] [address] [place] [address], [place] [phone] * Specific gravity, body fluid (06/14/2024 10:19 AM EST) Spec Grav, Fluid 1.014 06/14/2024 11:01 AM EST [facility] Peritoneal Fluid Non-blood Collection / Unknown 06/14/2024 10:19 AM EST 06/14/2024 10:26 AM EST [facility] - 06/14/2024 11:01 AM EST No reference ranges have been established for body fluids. Clinical correlation recommended. Cristiana RAND LAB BODY FLUIDS AND STO OLS ORDERABLES Final Result Performing Organization Address [facility] de Phone Number [facility] [address] [place] [address], [place] [phone] * Protein, body fluid (06/14/2024 10:19 AM EST) Only the most recent of2 resultswithin the time period is included. Protein, Fluid 1.4 See Comment g/dL LAB CHEMISTRY METHOD 06/14/2024 11:19 AM EST [facility] Peritoneal Fluid Non-blood Collection / Unknown 06/14/2024 10:19 AM EST 06/14/2024 10:26 AM EST [facility] - 06/14/2024 11:19 AM EST No reference ranges have been established for body fluids. Clinical correlation recommended. Cristiana RAND LAB BODY FLUIDS AND STO OLS ORDERABLES Final Result Performing Organization Address [facility]/ZIP Co de Phone Number [facility] [address] [place] [address], [place] [phone] * Lactate dehydrogenase, body fluid (06/14/2024 10:19 AM EST) LD, Fluid 78 See Comment unit/L LAB CHEMISTRY METHOD 06/14/2024 11:42 AM EST [facility] Peritoneal Fluid Peritoneal cavity structure / Unknown Non-blood Collection / Unknown 06/14/2024 10:19 AM EST 06/14/2024 10:27 AM EST [facility] - 06/14/2024 11:42 AM EST No reference ranges have been established for body fluids. Clinical correlation recommended. Cristiana RAND LAB BODY FLUIDS AND STO OLS ORDERABLES Final Result Performing Organization Address [facility]/ZIP Co de Phone Number [facility] [address] [place] [address], [place] [phone] * Glucose, body fluid (06/14/2024 10:19 AM EST) Glucose, Fluid 150 See Comment mg/dL LAB CHEMISTRY METHOD 06/14/2024 11:28 AM EST [facility] Ascites 06/14/2024 10:1 9 AM EST 06/14/2024 10:26 AM EST [facility] - 06/14/2024 11:28 AM EST No reference ranges have been established for body fluids. Clinical correlation recommended. Cristiana RAND LAB BODY FLUIDS AND STO OLS ORDERABLES Final Result Performing Organization Address [facility] de Phone Number [facility] [address] [place] [address], [place] [phone] * Amylase, body fluid (06/14/2024 10:19 AM EST) Amylase, Fluid 24 See Comment unit/L LAB CHEMISTRY METHOD 06/14/2024 11:19 AM EST [facility] Peritoneal Fluid Non-blood Collection / Unknown 06/14/2024 10:19 AM EST 06/14/2024 10:26 AM EST [facility] - 06/14/2024 11:19 AM EST No reference ranges have been established for body fluids. Clinical correlation recommended. Cristiana RAND LAB BODY FLUIDS AND STO OLS ORDERABLES Final Result Performing Organization Address [facility]/ZIP Co de Phone Number [facility] [address] [place] [address], [place] [phone] * Albumin, body fluid (06/14/2024 10:19 AM EST) Only the most recent of2 resultswithin the time period is included. Albumin, Fluid 0.6 See Comment g/dL LAB CHEMISTRY METHOD 06/14/2024 11:19 AM EST [facility] Peritoneal Fluid Non-blood Collection / Unknown 06/14/2024 10:19 AM EST 06/14/2024 10:26 AM EST Narrative [facility] - 06/14/2024 11:19 AM EST No reference ranges have been established for body fluids. Clinical correlation recommended. Cristiana RAND LAB BODY FLUIDS AND STO OLS ORDERABLES Final Result Performing Organization Address [facility] Co de Phone Number [facility] [address] [place] [address], [place] [phone] * Non-gynecologic cytology (06/14/2024 10:19 AM EST) Final Diagnosis A. Peritoneal fluid, paracentesis, (ThinPrep, cell block): Negative for malignant cells. 06/17/2024 4:30 PM [facility] Specimen A Adequacy Satisfactory for evaluation 06/17/2024 4:30 PM [facility] Gross Description A. Peritoneal Cavity, : Received 115 ml of yellow fluid; 1 ThinPrep, 1 Cell block Cell block in formalin @1500; total formalin fixation time 6 hours. 06/17/2024 4:30 PM EST [facility] Disclaimer Unless otherwise specified, all tissue is 10% NB formalin fixed and paraffin embedded. Technical cytopathology services provided by [facility], at [address] [place] [address] (CLIA # [id number]/Katya Lo MD, Glass Installer Technician.) 06/17/2024 4:30 PM EST [facility] Peritoneal Fluid Peritoneal cavity structure / Unknown Non-blood Collection / Unknown 06/14/2024 10:19 AM EST 06/14/2024 2:30 PM EST us Cristiana RNAD LAB CYTOLOGY ORDERABLES Final Result [facility] [address] [place] [address], [place] [phone] * [place] Paracentesis w Image Guidance (06/14/2024 [...] Signed Date: 06/15/2024 12:40 ET Workstation ID: [id number] Transcribed By: Self Edit Transcribed Date: 06/14/2024 11:29 ET Resident/PA/ASSISTANT DEPARTMENT MANAGER: Milady Chilel Narrative 06/15/2024 12:40 PM [...] Signed Date: 06/15/2024 12:40 ET Workstation ID: [id number] Transcribed By: Self Edit Transcribed Date: 06/14/2024 11:29 ET Resident/PA/ASSISTANT DEPARTMENT MANAGER: Milady Chilel us Cristiana RAND IMG US PROCEDURES Final Result * Lactate, with reflex (06/14/2024 5:26 AM EST) Only the most recent of3 resultswithin the time period is included. LACTIC ACID 1.6 0.4 - 2.0 mmol/L LAB CHEMISTRY METHOD 06/14/2024 6:03 AM [facility] Blood Venous blood specimen / Unknown Venipuncture / Unknown 06/14/2024 5:26 AM EST 06/14/2024 5:33 AM EST us Napoleon Neely MD LAB BLOOD ORDERABLES Final Re sult Performing Organization Address City/[facility]/ZIP Co de Phone Number [facility] [address] [place] [address], [place] [phone] * Culture blood (06/14/2024 5:22 AM EST) Only the most recent of6 resultswithin the time period is included. [facility] Culture, Blood No growth at 5 days 06/19/2024 6:01 AM [facility] Blood Venous blood specimen / Unknown Venipuncture / Unknown 06/14/2024 5:22 AM EST 06/14/2024 5:33 AM EST us Napoleon Neely MD LAB MICROBIOLOGY - GENERAL OR DERABLES Final Result Performing Organization Address [facility]/ZIP Co de Phone Number [facility] [address] [place] [address], [place] [phone] * (ABNORMAL) CBC auto differential (06/14/2024 5:14 AM EST) Only the most recent of5 resultswithin the time period is included. Pathologist [facility] WBC 4.5(L) 4.8 - 10.8 K/mcL LAB HEMETOLOGY METHOD 06/14/2024 6:00 AM [facility] RBC 3.30(L) 4.50 - 5.50 [facility] LAB HEMETOLOGY METHOD 06/14/2024 6:00 AM [facility] Hemoglobin 11.6(L) 13.5 - 17.5 g/dL LAB HEMETOLOGY METHOD 06/14/2024 6:00 AM [facility] Hematocrit 35.2(L) 42.0 - 54.0 % LAB HEMETOLOGY METHOD 06/14/2024 6:00 AM [facility] MCV 107.0(H) 79.0 - 98.0 FL LAB HEMETOLOGY METHOD 06/14/2024 6:00 AM [facility] MCH 35.3(H) 27.0 - 32.0 pcg LAB HEMETOLOGY METHOD 06/14/2024 6:00 AM [facility] MCHC 33.0 32.0 - 37.0 g/dL LAB HEMETOLOGY METHOD 06/14/2024 6:00 AM [facility] RDW 17.5(H) 11.0 - 15.0 % LAB HEMETOLOGY METHOD 06/14/2024 6:00 AM [facility] Platelets 77(L) 130 - 400 K/mcL LAB HEMETOLOGY METHOD 06/14/2024 6:00 AM [facility] Comment:previously verified by slide MPV 10.3 7.0 - 11.0 FL LAB HEMETOLOGY METHOD 06/14/2024 6:00 AM [facility] NRBC 0.0 <1.0 % LAB HEMETOLOGY METHOD 06/14/2024 6:00 AM [facility] NRBC Absolute 0.00 <0.10 K/mcL LAB HEMETOLOGY METHOD 06/14/2024 6:00 AM [facility] Neutrophils Relative 75.4 % LAB HEMETOLOGY METHOD 06/14/2024 6:00 AM [facility] Lymphocytes Relative 13.9 % LAB HEMETOLOGY METHOD 06/14/2024 6:00 AM [facility] Monocytes Relative 9.7 % LAB HEMETOLOGY METHOD 06/14/2024 6:00 AM [facility] Eosinophils Relative 0.4 % LAB HEMETOLOGY METHOD 06/14/2024 6:00 AM EST [facility] Basophils Relative 0.4 % LAB HEMETOLOGY METHOD 06/14/2024 6:00 AM [facility] Immature Granulocytes Relative 0.2 % LAB HEMETOLOGY METHOD 06/14/2024 6:00 AM [facility] Neutrophils Absolute 3.35 1.50 - 7.00 K/mcL LAB HEMETOLOGY METHOD 06/14/2024 6:00 AM [facility] Lymphocytes Absolute 0.62(L) 1.00 - 5.00 K/mcL LAB HEMETOLOGY METHOD 06/14/2024 6:00 AM [facility] Monocytes Absolute 0.43 0.20 - 1.00 K/mcL LAB HEMETOLOGY METHOD 06/14/2024 6:00 AM [facility] Eosinophils Absolute 0.02 0.00 - 0.50 K/mcL LAB HEMETOLOGY METHOD 06/14/2024 6:00 AM EST [facility] Basophils Absolute 0.02 0.00 - 0.20 K/mcL LAB HEMETOLOGY METHOD 06/14/2024 6:00 AM [facility] Immature Granulocytes Absolute 0.01 0.00 - 0.03 K/mcL LAB HEMETOLOGY METHOD 06/14/2024 6:00 AM [facility] Blood Venous blood specimen / Unknown Venipuncture / Unknown 06/14/2024 5:14 AM EST 06/14/2024 5:34 AM EST Napoleon Neely MD LAB BLOOD ORDERABLES Final Re sult [facility] [address] [place] [address], * ECG-Annotated (06/14/2024) Only the most recent of3 resultswithin the time period is included. us Provider Onbase MD ECG ORDERABLES Final Result * Prostate specific antigen screen (06/13/2024 12:37 PM EST) [facility] PSA 0.18 0.00 - 4.00 ng/mL LAB CHEMISTRY METHOD 06/13/2024 2:31 PM EST [facility] Blood Venous blood specimen / Unknown Venipuncture / Unknown 06/13/2024 12:37 PM EST 06/13/2024 12:55 PM EST Narrative [facility] - 06/13/2024 2:31 PM EST The Siemens Advia Spin Ink LTDaur Chemiluminescent Immunoassay is used. Results obtained with different assay methods or kits cannot be used interchangeably. Results cannot be interpreted as absolute evidence of the presence or absence of malignant disease. us Napoleon Neely MD LAB BLOOD ORDERABLES Final Re sult Performing Organization Address [facility]/ZIP Co de Phone Number [facility] [address] [place] [address], [place] [phone] * (ABNORMAL) C-reactive protein (06/13/2024 12:37 PM EST) Only the most recent of2 resultswithin the time period is included. [facility] C-Reactive Protein 10.20(H) <=0.50 mg/dL LAB CHEMISTRY METHOD 06/13/2024 2:25 PM EST [facility] Blood Venous blood specimen / Unknown Venipuncture / Unknown 06/13/2024 12:37 PM EST 06/13/2024 12:55 PM EST us Napoleon Neely MD LAB BLOOD ORDERABLES Final Re sult Performing Organization Address City/[facility]/ZIP Co de Phone Number [facility] [address] [place] [address], [place] [phone] * (ABNORMAL) Hepatic function panel (06/13/2024 12:37 PM EST) [facility] Total Protein 5.9(L) 6.0 - 8.0 g/dL LAB CHEMISTRY METHOD 06/13/2024 2:25 PM EST [facility] Albumin 2.3(L) 3.2 - 5.0 g/dL LAB CHEMISTRY METHOD 06/13/2024 2:25 PM [facility] Total Bilirubin 2.6(H) 0.0 - 1.4 mg/dL LAB CHEMISTRY METHOD 06/13/2024 2:25 PM [facility] Bilirubin, Direct 1.4(H) 0.0 - 0.3 mg/dL LAB CHEMISTRY METHOD 06/13/2024 2:25 PM [facility] Bilirubin, Indirect 1.2(H) 0.0 - 1.1 mg/dL LAB CHEMISTRY METHOD 06/13/2024 2:25 PM [facility] ALT (SGPT) 20 10 - 60 unit/L LAB CHEMISTRY METHOD 06/13/2024 2:25 PM [facility] AST (SGOT) 32 10 - 42 unit/L LAB CHEMISTRY METHOD 06/13/2024 2:25 PM [facility] Alkaline Phosphatase 133(H) 42 - 121 unit/L LAB CHEMISTRY METHOD 06/13/2024 2:25 PM [facility] Blood Venous blood specimen / Unknown Venipuncture / Unknown 06/13/2024 12:37 PM EST 06/13/2024 12:55 PM EST us Napoleon Neely MD LAB BLOOD ORDERABLES Final Re sult [facility] [address] [place] [address], * Troponin I high sensitivity (06/12/2024 6:44 AM EST) Only the most recent of4 resultswithin the time period is included. [facility] High Sensitivity Troponin I 17 <=79 ng/L LAB CHEMISTRY METHOD 06/12/2024 7:31 AM EST [facility] Blood Venous blood specimen / Unknown Venipuncture / Unknown 06/12/2024 6:44 AM EST 06/12/2024 6:58 AM EST Narrative [facility] - 06/12/2024 7:31 AM EST High levels of biotin in samples may falsely decrease hsTroponin values. ??Use caution when interpreting hsTroponin results in patients taking biotin who exhibit renal impairment (eGFR <60) or in patients taking more than 20 mg/day of biotin. us Nayeli RAND LAB BLOOD ORDERABLES Final Resu lt [facility] [address] [place] [address], [place] [phone] * CT Abdomen Pelvis w Contrast (06/12/2024 6:28 AM EST) Only the most recent of2 resultswithin the time period is included. Anatomical Region Laterality Modality Body Computed Tomogra phy 06/12/2024 7:06 AM EST Impressions 06/12/2024 7:06 AM EST Impression: Cirrhotic liver with portal hypertension including brwloooy-as-pajrp volume ascites, splenomegaly and varices. No apparent [...] Impression: Cirrhotic liver with portal hypertension including zleplody-sd-twqpy volume ascites, splenomegaly and varices. No apparent [...] recommended in 3 months to assess stability. Prroi-wy-jtkqwfpr size left pleural effusion and trace right [...] contour and moderate volume of ascites. Splenomegaly. Izgjt-sj-kifqvmun size left pleural effusion and trace right [...] contour and moderate volume of ascites. Splenomegaly. Rswkb-tv-wpmkeptd size left pleural effusion and trace right [...] recommended in 3 months to assess stability. Dommn-ej-hrvrtqqm size left pleural effusion and trace right pleural effusion with mild subjacent atelectasis. Cardiomegaly. Mildly dilated main pulmonary artery indicating pulmonary arterial hypertension. Hepatic cirrhosis with ascites and splenomegaly. Please see CT abdomen/pelvis report for additional details. No evidence for pulmonary artery embolus. This document has been electronically signed by: Hernan Godwin MD on 06/12/2024 06:43:[address] PROCEDURES Final Result * B-type natriuretic peptide (06/12/2024 5:19 AM EST) Only the most recent of2 resultswithin the time period is included. BNP 95 <=100 pcg/mL LAB CHEMISTRY METHOD 06/12/2024 6:10 AM EST [facility] Blood Venous blood specimen / Unknown Venipuncture / Unknown 06/12/2024 5:19 AM EST 06/12/2024 5:22 AM EST Nayeli RAND LAB BLOOD ORDERABLES Final Resu lt Performing Organization Address [facility]/ZIP Co de Phone Number [facility] [address] [place] [address], * (ABNORMAL) Blood culture pathogens molecular study (06/12/2024 3:44 AM EST) [facility] Pseudomonas aeruginosa Detected (A) Not Detected LAB MICROBIOLOGY METHOD 06/13/2024 7:45 AM EST [facility] Blood Venous blood specimen / Unknown Venipuncture / Unknown 06/12/2024 3:44 AM EST 06/12/2024 3:51 AM EST Nayeli RAND LAB MICROBIOLOGY - GENERAL ORDE RABLES Final Result Performing Organization Address [facility] de Phone Number [facility] [address] [place] [address], * (ABNORMAL) Lactate (06/12/2024 3:40 AM EST) Only the most recent of6 resultswithin the time period is included. [facility] Lactate 3.2(HH) 0.4 - 2.0 mmol/L LAB CHEMISTRY METHOD 06/12/2024 4:30 AM EST [facility] Blood Venous blood specimen / Unknown Venipuncture / Unknown 06/12/2024 3:40 AM EST 06/12/2024 3:51 AM EST Nayeli RAND LAB BLOOD ORDERABLES Final Resu lt Performing Organization Address [facility]/ZIP Co de Phone Number [facility] [address] [place] [address], [place] [phone] * (ABNORMAL) Urinalysis with reflex microscopic and culture (06/12/2024 1:15 AM EST) Only the most recent of2 resultswithin the time period is included. [facility] Specific [place] Urine 1.007 1.003 - 1.030 LAB URINALYSIS - AUTOMATED METHOD 06/12/2024 3:41 AM [facility] pH, Urine 6.0 5.0 - 8.0 pH LAB URINALYSIS - AUTOMATED METHOD 06/12/2024 3:41 AM [facility] Leukocytes, Urine Small(A) Negative LAB URINALYSIS - AUTOMATED METHOD 06/12/2024 3:41 AM [facility] Nitrite, Urine Negative Negative LAB URINALYSIS - AUTOMATED METHOD 06/12/2024 3:41 AM [facility] Protein, Urine Negative <=Trace mg/dL LAB URINALYSIS - AUTOMATED METHOD 06/12/2024 3:41 AM [facility] Glucose, Urine Negative Negative mg/dL LAB URINALYSIS - AUTOMATED METHOD 06/12/2024 3:41 AM [facility] Ketones, Urine Negative Negative mg/dL LAB URINALYSIS - AUTOMATED METHOD 06/12/2024 3:41 AM [facility] Urobilinogen, Urine 0.2 0.2 - 1.0 mg/dL LAB URINALYSIS - AUTOMATED METHOD 06/12/2024 3:41 AM [facility] Bilirubin, Urine Negative Negative LAB URINALYSIS - AUTOMATED METHOD 06/12/2024 3:41 AM [facility] Blood, Urine Large(A) Negative LAB URINALYSIS - AUTOMATED METHOD 06/12/2024 3:41 AM [facility] RBC, Urine 156.5(H) 0 - 4 /HPF LAB URINALYSIS - AUTOMATED METHOD 06/12/2024 3:41 AM [facility] WBC, Urine 16.6(H) 0 - 4 /HPF LAB URINALYSIS - AUTOMATED METHOD 06/12/2024 3:41 AM [facility] Squamous Epithelial, Urine 9 0 - 60 /LPF LAB URINALYSIS - AUTOMATED METHOD 06/12/2024 3:41 AM [facility] Bacteria, Urine Negative Negative /HPF LAB URINALYSIS - AUTOMATED METHOD 06/12/2024 3:41 AM EST [facility] Hyaline Casts, Urine 0.8 0 - 3 /LPF LAB URINALYSIS - AUTOMATED METHOD 06/12/2024 3:41 AM [facility] Urine Urine specimen obtained by clean catch procedure / Unknown Non-blood Collection / Unknown 06/12/2024 1:15 AM EST 06/12/2024 2:59 AM EST Nayeli RAND LAB URINE ORDERABLES Final Resu lt Performing Organization Address [facility] Co de Phone Number [facility] [address] [place] [address], [place] [phone] * Pugh urine culture tube (06/12/2024 1:15 AM EST) Only the most recent of2 resultswithin the time period is included. Extra Tube Hold for add-ons. 06/12/2024 4:01 AM EST [facility] Comment:Auto resulted. Urine Urine specimen obtained by clean catch procedure / Unknown Non-blood Collection / Unknown 06/12/2024 1:15 AM EST 06/12/2024 2:59 AM EST us Nayeli RAND LAB URINE ORDERABLES Final Resu lt Performing Organization Address City/[facility]/ZIP Co de Phone Number [facility] [address] [place] [address], [place] [phone] * (ABNORMAL) Culture urine (06/12/2024 1:15 AM EST) Only the most recent of2 resultswithin the time period is included. Culture, Urine >100,000 CFU/mL Pseudomonas aeruginosa(A) SAVANNAH 06/15/2024 9:00 AM EST [facility] Comment: This is an [...] LAURIE OCASIO Final Result Performing Organization Address City/[facility]/ZIP Co de Phone Number [facility] [address] [place] [address], * (ABNORMAL) Thyroid stimulating hormone (05/26/2024 6:59 AM EST) [facility] TSH 5.20(H) 0.40 - 4.00 mcIU/mL LAB CHEMISTRY METHOD 05/26/2024 1:24 PM EST [facility] Blood Venous blood specimen / Unknown Venipuncture / Unknown 05/26/2024 6:59 AM EST 05/26/2024 10:29 AM EST Gerry Barksdale LAB BLOOD ORDERABLES Final Resul t Performing Organization Address [facility]/ZIP Co de Phone Number [facility] [address] [place] [address], * Folate (05/26/2024 6:59 AM EST) Folate 4.3 2.8 - 17.0 ng/ml LAB CHEMISTRY METHOD 05/26/2024 1:39 PM EST [facility] Blood Venous blood specimen / Unknown Venipuncture / Unknown 05/26/2024 6:59 AM EST 05/26/2024 10:29 AM EST Gerry Barksdale LAB BLOOD ORDERABLES Final Resul t [facility] [address] [place] [address], [place] [phone] * (ABNORMAL) Vitamin B12 (05/26/2024 6:59 AM EST) Vitamin B-12 1,309(H) 250 - 900 pcg/mL LAB CHEMISTRY METHOD 05/26/2024 1:39 PM EST [facility] Blood Venous blood specimen / Unknown Venipuncture / Unknown 05/26/2024 6:59 AM EST 05/26/2024 10:29 AM EST Gerry Barksdale LAB BLOOD ORDERABLES Final Resul t Performing Organization Address City/[facility]/ZIP Co de Phone Number [facility] [address] [place] [address], [place] [phone] * Vancomycin, trough (05/23/2024 12:10 PM EST) Only the most recent of3 resultswithin the time period is included. Vancomycin Trough 13.0 10.0 - 20.0 mcg/mL LAB CHEMISTRY METHOD 05/23/2024 12:59 PM EST [facility] Blood Venous blood specimen / Unknown Venipuncture / Unknown 05/23/2024 12:10 PM EST 05/23/2024 12:28 PM EST Hue RAND LAB BLOOD ORDERABLES Final Re sult [facility] [address] [place] [address], [place] [phone] * Lavender tube (05/23/2024 3:07 AM EST) Only the most recent of2 resultswithin the time period is included. Extra Tube Hold for add-ons. 05/23/2024 5:01 AM EST [facility] Comment:Auto resulted. Blood Venous blood specimen / Unknown 05/23/2024 3:07 AM EST 05/23/2024 3:19 AM EST us Chemo Reveles MD LAB BLOOD ORDERABLES Final Resu lt [facility] [address] [place] [address], [place] [phone] * Vascular US duplex lower extremity venous bilateral (05/21/2024 9:14 AM EST) Anatomical Region Laterality Modality Vascular, Abdomen Ultrasound 05/21/2024 9:2 2 AM EST Impressions 05/21/2024 9:23 AM EST NONOCCLUSIVE THROMBUS IN THE RIGHT COMMON FEMORAL VEIN. ?? NO VENOUS THROMBOSIS IN THE LEFT LOWER EXTREMITY VEINS. -------- FINAL REPORT -------- Dictated By: ERWIN MESA Dictated Date: 05/21/2024 09:22 ET Assigned Physician: ERWIN MESA Reviewed and Electronically Signed By: ERWIN MESA Signed Date: 05/21/2024 09:23 ET Workstation ID: [id number] Transcribed By: Self Edit Transcribed Date: 05/21/2024 [...] Signed Date: 05/21/2024 09:23 ET Workstation ID: [id number] Transcribed By: Self Edit Transcribed Date: 05/21/2024 09:22 ET us Chemo Reveles MD CV VASCULAR PROCEDURES Final Re sult * (ABNORMAL) Thyroid stimulating hormone with reflex to free t4 and free t3 (05/21/2024 3:17 AM EST) TSH 8.16(H) 0.40 - 4.00 mcIU/mL LAB CHEMISTRY METHOD 05/21/2024 3:59 AM EST [facility] Blood Venous blood specimen / Unknown Venipuncture / Unknown 05/21/2024 3:17 AM EST 05/21/2024 3:23 AM EST us hCemo Reveles MD LAB BLOOD ORDERABLES Final Resu lt [facility] [address] [place] [address], [place] [phone] * Free thyroxine with reflex to free triiodothyronine (05/21/2024 3:17 AM EST) Free T4 1.02 0.70 - 1.80 ng/dL LAB CHEMISTRY METHOD 05/21/2024 4:25 AM EST [facility] Blood Venous blood specimen / Unknown Venipuncture / Unknown 05/21/2024 3:17 AM EST 05/21/2024 3:23 AM EST us Chemo Reveles MD LAB BLOOD ORDERABLES Final Resu lt Performing Organization Address City/[facility]/ZIP Co de Phone Number [facility] [address] [place] [address], [place] [phone] * Triiodothyronine free (05/21/2024 3:17 AM EST) T3, Free 249 230 - 420 pcg/dL LAB CHEMISTRY METHOD 05/21/2024 4:50 AM EST [facility] Blood Venous blood specimen / Unknown Venipuncture / Unknown 05/21/2024 3:17 AM EST 05/21/2024 3:23 AM EST us Chemo Reveles MD LAB BLOOD ORDERABLES Final Resu lt Performing Organization Address City/[facility]/ZIP Co de Phone Number [facility] [address] [place] [address], [place] [phone] * Hemoglobin A1c (05/21/2024 3:17 AM EST) Hemoglobin A1C 4.9 <6.5 % LAB CHEMISTRY METHOD 05/21/2024 1:49 PM EST [facility] Mean Bld Glu Estim. 94 mg/dL LAB CHEMISTRY METHOD 05/21/2024 1:49 PM EST [facility] Blood Venous blood specimen / Unknown Venipuncture / Unknown 05/21/2024 3:17 AM EST 05/21/2024 3:23 AM EST Chemo Reveles MD LAB BLOOD ORDERABLES Final Resu lt Performing Organization Address City/[facility]/ZIP Co de Phone Number [facility] [address] [place] [address], [place] [phone] * (ABNORMAL) Sedimentation rate (05/20/2024 6:09 AM EST) Sed Rate 35(H) 0 - 20 mm/hr LAB HEMETOLOGY METHOD 05/20/2024 2:00 PM EST [facility] Blood Venous blood specimen / Unknown Venipuncture / Unknown 05/20/2024 6:09 AM EST 05/20/2024 6:32 AM EST us Chemo Reveles MD LAB BLOOD ORDERABLES Final Resu lt Performing Organization Address [facility] Co de Phone Number [facility] [address] [place] [address], [place] [phone] * XR Chest 2 Views (05/19/2024 6:51 PM EST) Anatomical Region Laterality Modality Body Radiographic Esmer ging 05/20/2024 8:05 AM EST Impressions 05/20/2024 8:06 AM EST Small-moderate left pleural effusion. -------- FINAL REPORT -------- Dictated By: Frank Vivar Dictated Date: 05/20/2024 08:05 ET Assigned Physician: Frank Vivar Reviewed and Electronically Signed By: Frank Vivar Signed Date: 05/20/2024 08:06 ET Workstation ID: [id number] Transcribed By: Self Edit Transcribed Date: 05/20/2024 [...] Signed Date: 05/20/2024 08:06 ET Workstation ID: [id number] Transcribed By: Self Edit Transcribed Date: 05/20/2024 08:05 ET Hue RAND IMG XR PROCEDURES Final Resul t * (ABNORMAL) Lipase (05/19/2024 4:10 PM EST) Lipase 76(H) 13 - 75 unit/L LAB CHEMISTRY METHOD 05/19/2024 4:59 PM EST [facility] Blood Venous blood specimen / Unknown Venipuncture / Unknown 05/19/2024 4:10 PM EST 05/19/2024 4:25 PM EST Emily Singh DO LAB BLOOD ORDERABLES Berenice l Result [facility] [address] [place] [address], [place] [phone] from Last 3 Months Insurance [facility] MEDICARE Member Subscriber Plan / Payer (Ef fective 2024-Present) Name:Jonny Reed Relation to Subscriber:Self Name:Jonny Reed Payer ID:[id number] Group ID:[id number] Type:Not on file Address: [place] [address] [address] [id number] Advance Directives Documents on File Type Date Recorded Patient Geriatric Personal Care Aide Expl anation Advance Directives and Living Will 03/04/2024 11:52 AM Advance Directives and Living Will 03/03/2024 1:15 PM [facility] Proxy * Full Code - Default [...] Agents on File Name Relationship Healthcare Agent [facility] p Communication Elinor Cortez [place] [facility] Care Agent Care Teams Leather Goods Ii Assembler Relationship Specialty Start Date End Date Dalia Harmon PA [address] [place] [address], [address] [place] [address] PCP - General 05/10/24
--- OUTSIDE RECORDS SUMMARY | 2024-07-29 11:34 | XMS_ITS | Encounter Summary ---
Author Organization [facility] Address [address] [place] [address] Care Team Providers Care Public Defender Name Role Phone Dalia Harmon Primary Care Provider [phone] Encounter Details Date Type Department Care Team (Late st Contact Info) Description 06/18/2024 Lab Requisition [facility] - Main Lab [address] [facility] [place] [phone] Gerry Barksdale [address] [facility] [address] [place] [address] Sepsis, unspecified organism (CMS/HCC V24, [...] AM EDT Office Visit Gastroenterology - [place] [address] [place] [phone] Han Sloan DO [address] [place] [address] documented as of this encounter Visit Diagnoses Diagnosis Sepsis, unspecified organism (CMS/HCC V24, CMS/HCC V28) documented in this encounter Care Teams Public Defender Relationship Specialty Start Date End Date Dalia Harmon PA [address] [place] [address], [address] [place] [address] PCP - General 05/10/24 documented as of this encounter
--- OUTSIDE RECORDS SUMMARY | 2024-07-29 11:34 | XMS_ITS | Clinical Summary ---
Author Organization [facility] Address [address] [place] [address] Care Team Providers Care Digital Cartographic Technician Name Role Phone Dago Ferro MD Primary Care Provider [phone] Allergies No known active allergies Medications Medication [...] age to complete this topic Care Teams Digital Cartographic Technician Relationship Specialty Start Date End Date Dago Ferro MD PCP - General Internal Medicine 03/23/19
== END 2024-07-29 10:32 | disposition home or self-care (01) ==
LOC: HO.PMC 09:59
PROVIDERS: Visit Provider Anesthesiology
DX: G89.4 Chronic pain syndrome (principal); M96.1 Postlaminectomy syndrome, not elsewhere classified; K74.60 Unspecified cirrhosis of liver; R18.8 Other ascites; M16.0 Bilateral primary osteoarthritis of hip; R31.9 Hematuria, unspecified
CPT/HCPCS: 99213

== ENCOUNTER → 2024-07-29 09:58 | Outpatient (BNVA) | payer OTHER, SELFPAY | PROVIDERS: Visit Provider Anesthesiology | DX: R18.8 Other ascites (principal); K74.60 Unspecified cirrhosis of liver; R31.9 Hematuria, unspecified; M96.1 Postlaminectomy syndrome, not elsewhere classified; G89.4 Chronic pain syndrome; M16.0 Bilateral primary osteoarthritis of hip; Z51.81 Encounter for therapeutic drug level monitoring; Z79.891 Long term (current) use of opiate analgesic | CPT/HCPCS: 99212 ==

== ENCOUNTER 2024-07-30 10:06 | Outpatient (AMB) | payer OTHER, SELFPAY ==
--- NOTE | 2024-07-30 10:12 | A.OFFPC_ITS ---
Vital Signs 07/30/24 10:13 Height 5 ft 6 in Weight 306 lb BMI 49.4 BP 130/62 Blood Pressure Location Rt brachial Position Sitting Pulse 84 Pulse Source Pulse Oximeter Temp 97.1 F Temp Source Temporal Artery Scan Pulse Oximetry (%) 97 Oxygen Delivery Method Room Air Intake Visit Reasons: f/u cirrhosis Intake Note: Patient is here to follow up on Cirrhosis. Motion Picture Set Up Worker Required: No Cotton Chopper: Present (Sister and BASIC SCIENCES PROFESSOR) Accompanied by: Sister Allergies nystatin Adverse Reaction (Mild, Verified 07/30/24 10:33) swelling atorvastatin Adverse Reaction (Verified 07/30/24 10:33) Diarrhea Medication List - Last Reconciled 07/30/24 by Dalia Harmon PA-C albuterol sulfate 90 mcg/actuation 2 puffs inhalation Q4-6H PRN 60 days albuterol sulfate 2.5 mg (0.5 mL) inhalation Q20M apixaban (Eliquis) 5 mg PO BID aspirin 81 mg PO DAILY blood sugar diagnostic (FreeStyle Lite Strips) As directed 2 times per day blood-glucose meter (FreeStyle Lite Meter kit) As directed cholecalciferol (vitamin D3) (Vitamin D3) 50 mcg PO DAILY ciprofloxacin HCl 500 mg PO BID 7 days clotrimazole 1% 1 appl topical BID furosemide 40 mg PO DAILY lancets (FreeStyle Lancets) As directed 2 times per day naloxone 4 mg/actuation 4 mg intranasal Q2M PRN 1 day nebulizers (Aeroneb Go Nebulizer) As directed oxybutynin chloride ER 5 mg PO DAILY 30 days oxycodone 10 mg PO Q4H PRN 30 days [power wheelchair As directed] rosuvastatin (Crestor) 5 mg PO DAILY spironolactone 100 mg PO BID tamsulosin 0.4 mg PO DAILY walker Folding Front wheeled walker [weigh scale As directed] zolpidem 10 mg PO BEDTIME PRN Tobacco use date assessed: 07/30/24 Fall risk assessment: No Falls in past year Last assessed Fall Risk: 07/30/24 Dental Screening Dental Screen Date: 06/23/24 HPI f/u cirrhosis HPI Details 64-year-old male with past medical histo ry of morbid obesity, 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 In review of the notes, patient was seen by pain management for 01/2025 continued on oxycodone. Patient was seen by Gastroenterology 06/24/2024 and was scheduled to undergo tips procedure by IR advised to follow up with ID continued on apixaban for portal venous thrombosis and paracentesis as needed. He was seen by the tooth cutter contact wheel who determined he should maintain the Eliquis due to risk of thrombosis. He is also seen by Cardiology for coronary artery disease caution with statins due to advanced liver disease and follow up in 6 months. Presenting for a follow-up on multiple medical conditions, including liver cirrhosis with ascites and urinary tract infection. He previously underwent a TIPS procedure, for which an adjustment is scheduled shortly, due to ongoing issues with fluid accumulation. The tips adjustment procedure is scheduled for next Friday with Dr. Sloan. The patient also has a history of thrombosis on Eliquis, which replaced baby aspirin. Additionally, urinary tract issues are aggravated by catheter clogging and constant flushing, and there is a need for reevaluation by urology specialists due to recurrent catheter failures. He also reports seeing the airframe and power plant mechanic had a toenail removed from the left ring toe and is doing well. 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 opiate use No natural teeth Back pain Back pain Arthritis Fatty liver History of cirrhosis of liver Avascular necrosis Hemochromatosis COPD (chronic obstructive pulmonary disease) NICOLE on CPAP Surgical History (Updated 07/30/24 @ 10:35 by Dalia Harmon PA-C) H/O transjugular intrahepatic portosystemic shunt Hx of esophagogastroduodenoscopy Hx of colonoscopy [place] teeth extracted History of surgery History of back surgery (~1997) H/O discectomy (~1997) Family History Maternal Grandfather Heart attack Brother Heart attack Social History Household Members: None Housing: Apartment Are you a primary wound care specialist to a significant other at home: No Do you presently have visiting nurse or other home services: Yes (BASIC SCIENCES PROFESSOR 37.5 hours M-F, 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) 75 years or older and lives alone: No Patient Tobacco Use Status: Former Tobacco user Tobacco use type: Cigarette e-Cigarette/Vaping Use: Never Used Second Hand Smoke Exposure: Yes Substance Use Type: Marijuana service: No Current occupational status: unemployed Gender identity: Male Cognitive needs: No Hearing needs: No Vision needs: No Questionnaire Thrive Questionnaire Date Thrive assessed: 06/23/24 AUDIT C Alcohol Use Questionnaire (AUDIT-C) 2. How many drinks containing alcohol do you have on a typical day when you are drinking?: 1 or 2 3. How often do you have six or more drinks on one occasion?: Never Total Score: 0 CHEPE-7 AMB Questionnaire CHEPE-7 Date CHEPE - 7 assessed: 06/23/24 Source: Developed by Drs. Deep Salguero, Marixa Aranda, Damon Foster and colleagues, with an educational mary from [employer]. Review of Systems Const Denies body aches, Denies chills, Denies fever(s), Denies headache(s) and Denies poor appetite Eyes Reports no additional complaints ENT Denies dysphagia, Denies dizziness, Denies headache(s) and Denies odynophagia Card Denies chest pain, Denies syncope, Denies edema, Denies irregular heart rhythm, Denies lightheadedness and Denies dyspnea Resp Denies cough and Denies dyspnea GI Denies abdominal pain, Denies constipation, Denies dysphagia, Denies diarrhea, Denies nausea, Denies odynophagia and Denies vomiting Reports no additional complaints Musc Reports no additional complaints and Denies abnormal gait Skin/Breast Reports system reviewed and no additional complaints, except as documented Neuro Denies abnormal gait, Denies dizziness, Denies syncope and Denies headache(s) Psych Reports no additional complaints Physical exam (Primary Care) Vital Signs: Last Vital Signs Temp 97.1 F 07/30/24 10:13 Pulse 84 07/30/24 10:13 BP 130/62 07/30/24 10:13 Pulse Ox 97 07/30/24 10:13 Oxygen Delivery Method Room Air 07/30/24 10:13 BMI result Body Mass Index 49.4 Tobacco/Smoking Status: Tobacco use Status Tobacco use date assessed 07/30/24 07/30/24 10:17 Patient Tobacco Use Status Former Tobacco user 07/30/24 10:17 Tobacco use type Cigarette 07/30/24 10:17 e-Cigarette/Vaping Use Never Used 07/30/24 10:17 Thrive Assessment: Date of Thrive Assessment Date Thrive assessed 06/23/24 07/30/24 10:17 Const General: cooperative, healthy appearing, comfortable and no acute distress Orientation/consciousness: patient oriented x3 HENMT Head: Yes normocephalic Ears: hearing grossly normal bilaterally General nose exam: Normal external nose present Eyes General: appearance normal, both eyes and all related structures Conjunctivae: conjunctivae normal Neck Neck: Yes full ROM and Yes no lymphadenopathy Resp Effort & Inspection: normal respiratory effort Auscultation: clear to auscultation bilaterally, no crackles, no rales, no rhonchi and no wheezes Cardio Rate: regular rate Rhythm: regular rhythm Skin General skin exam: no rashes or lesions noted Neuro General: patient oriented x3 Gait exam (Neuro): Normal gait present Extrem General: Yes normal to inspection, Yes full ROM and No edema Psych Affect: normal affect Attitude: cooperative Insight: Good insight present (Psych) Judgement: Good judgement present (Psych) Results AMB Hemoglobin A1c AMB Hemoglobin A1c 4.3 % Last Edit by TASHA Hernandez on 07/30/24 10:41 Results Reviewed Results Reviewed: Laboratory Last Values Hgb A1c (Clinic) 4.3 % (4.0-6.0) 07/30/24 10:12 Coding Level of Care Code Est Pt Level 4 (21229) Diagnoses Hemochromatosis E83.119 Avascular necrosis of bone of left hip M87.052 Morbid obesity with BMI of 45.0-49.9, adult E66.01; Z68.42 Ascites R18.8 Liver cirrhosis K74.60 Ingrown toenail L60.0 Urinary retention R33.9 Assessment & Plan Assessment & Plan (1) Hemochromatosis: Code(s): E83.119 - Hemochromatosis, unspecified Category: Medical Plan: Patient is currently following with Gastroenterology for management of 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 Continue to follow with Hematology as well as Gastroenterology. (2) Avascular necrosis of bone of left hip: Code(s): M87.052 - Idiopathic aseptic necrosis of left femur Category: Medical Plan: Continue to follow with pain management for chronic opiate prescription. (3) Morbid obesity with BMI of 45.0-49.9, adult: Code(s): E66.01 - Morbid (severe) obesity due to excess calories; Z68.42 - Body mass index [BMI] 45.0-49.9, adult Category: Medical Plan: Healthy diet and regular exercise is encouraged. Patient has difficulty with ambulation due to avascular necrosis and would benefit from a power wheelchair. Prescription was set at last visit supporting documentation at that time. Same recommendations applied today. (4) Ascites: Code(s): R18.8 - Other ascites Category: Medical Plan: Per his last GI note patient will likely require paracentesis intermittently. Continue on spironolactone. (5) Liver cirrhosis: Code(s): K74.60 - Unspecified cirrhosis of liver Category: Medical Plan: Continue to follow with Dr. Sloan and has tips revision surgery next Friday with appointment to follow up. Continue to follow with Gastroenterology. Continue on Eliquis to prevent portal vein thrombosis. (6) Ingrown toenail: Code(s): L60.0 - Ingrowing nail Category: Medical Plan: The left 4th digit area is healing nicely no evidence of infection at this time and no tenderness to palpation. (7) Urinary retention: Code(s): R33.9 - Retention of urine, unspecified Category: Medical Plan: Patient having chronic urinary retention and has an indwelling catheter which she has frequent changes. He has an evaluation with Urology in August. I will reach out to the urologist to see if there is an earlier appointment as the patient is having to frequently flush his catheter and may need replacement or further evaluation at this time. I discussed red flag symptoms and when to present for re-evaluation and when to present to the ED. Plan This note was constructed using voice recognition software. While every effort has been made to ensure accuracy and refrigeration mechanic, still areas may have been included sometimes these areas may affect the content or meeting of the given symptoms. Total time spent caring for the patient today was 20 minutes. This includes time spent before the visit reviewing the chart, time spent during the visit, and time spent after the visit and documentation. Patient was informed and verbally consented to the use of an ambient scribe for clinic note documentation during this visit. Orders: Orders Basic Metabolic Panel Today K74.60 - Unspecified cirrhosis of liver, R18.8 - Other ascites AMB Hemoglobin A1c Today E11.9 - Type 2 diabetes mellitus without complications Medications: Refilled [power wheelchair] As directed 1 ea 0RF E66.01 - Morbid (severe) obesity due to excess calories, G89.4 - Chronic pain syndrome, M87.052 - Idiopathic aseptic necrosis of left femur, Z68.42 - Body mass index [BMI] 45.0-49.9, adult
[2024-07-30 10:13] VITALS: BP 130/62; PULSE 84; TEMP 36.2; O2SAT 97; BMI 49.4
--- OUTSIDE RECORDS SUMMARY | 2024-07-30 10:48 | XMS_ITS | Encounter Summary ---
Author Organization [facility] Address [address] [place] [address] Care Team Providers Care Javascript Ui Developer Name Role Phone Dalia Harmon Primary Care Provider [phone] Encounter Details Date Type Department Care Team (Late st Contact Info) Description 06/18/2024 Lab Requisition [facility] - Main Lab [address] [facility] [place] [phone] Gerry Barksdale [address] [facility] [address] [place] [address] Sepsis, unspecified organism (CMS/HCC V24, [...] 9:10 AM EDT Office Visit Gastroenterology - [place] [address] [place] [phone] Han Sloan DO [address] [place] [address] documented as of this encounter Visit Diagnoses Diagnosis Sepsis, unspecified organism (CMS/HCC V24, CMS/HCC V28) documented in this encounter Care Teams Javascript Ui Developer Relationship Specialty Start Date End Date Dalia Harmon PA [address] [place] [address], [address] [place] [address] PCP - General 05/10/24 documented as of this encounter
--- OUTSIDE RECORDS SUMMARY | 2024-07-30 10:48 | XMS_ITS | Encounter Summary ---
Author Organization [facility] Address [address] [place] [address] Care Team Providers Care Antique Clock Repairer Name Role Phone Dalia Harmon Primary Care Provider [phone] Encounter Details Date Type Department Care Team (Late st Contact Info) Description 06/04/2024 Lab Requisition [facility] - Main Lab [address] [facility] [place] [phone] Gerry Barksdale [address] [facility] [address] [place] [address] Sepsis, unspecified organism (CMS/HCC V24, [...] 9:10 AM EDT Office Visit Gastroenterology - [place] [address] [place] [address] Han Sloan DO [address] [place] [address] documented as of this encounter Procedures Procedure [...] LAB CHEMISTRY METHOD 06/07/2024 12:53 PM EST [facility] Comment:Calculation based on [...] Resul t [facility] [address] [place] [address], * (ABNORMAL) Complete blood count (06/07/2024 10:48 [...] LAB HEMETOLOGY METHOD 06/07/2024 1:06 PM EST [facility] MCHC 33.0 32.0 - 37.0 [...] t [facility] [address] [place] [address], documented in this encounter Visit Diagnoses Diagnosis Sepsis, unspecified organism (CMS/HCC V24, CMS/HCC V28) documented in this encounter Care Teams Antique Clock Repairer Relationship Specialty Start Date End Date Dalia Harmon PA [address] [place] [address], [address] [place] [address] PCP - General 05/10/24 documented as of this encounter
--- OUTSIDE RECORDS SUMMARY | 2024-07-30 10:48 | XMS_ITS | Clinical Summary ---
Author Organization [facility] Address [address] [place] [phone] Phone Care Team Providers Care Motion Picture Scene Builder Name Role Phone Dalia Harmon Primary Care Provider [phone] Allergies Active Allergy Reactions Criticality Noted Date [...] 07/07/19 25 Pseudomonal bacteremia 06/13/2024 Severe sepsis ([facility] V24, [facility] V28) 025 Candidal intertrigo 03/01/2024 Anasarca 02/26/2024 Lymphedema 08/01/2022 Thrombocytopenia ([facility] V24) 08/01/2022 Overview (12/25/2023): Related to iron overload syndrome per prior records COPD (chronic obstructive pu lmonary disease) ([facility] V24, [facility] V28) 08/01/2022 Avascular necrosis of bone o f hip, left ([facility] V24, [facility] V28) 06/25/2022 Overview (12/25/2023): Was seen by [facility] who recommended weight loss prior to elective hip arthroplasty of left hip Was seen by [facility] who concurred with this Insomnia 04/13/2018 Chronic allergic conjunctivitis 04/13/2018 Anxiety 04/13/2018 Esophageal varices ([facility] V24, [facility] V28) Hemochromatosis 12/03/2017 Overview (12/25/2023): 2 heterozygous gene mutations were found and recommended [id number] therapeutic phlebotomy. Follows with GI. Liver cirrhosis secondary to CASTANEDA (nonalcoholic steatohepatitis) ([facility] V24, [facility] V28) 12/03/2017 Erosive gastritis 10/13/2017 Obstructive sleep apnea 05/21/2016 Overview (12/25/2023): On CPAP Hypertension 12/14/2014 Hyperlipidemia 12/12/2014 Diabetes mellitus type 2 wit h neurological manifestations ([facility] V24, [facility] V28) 12/12/2014 Depression with anxiety 12/12/2014 Benign colonic polyp 12/12/2014 Vitamin D deficiency 07/27/2012 Internal hemorrhoids 07/27/2010 Diverticulosis 05/29/2010 Encounters Date Type Department Care Team Description 07/26/2024 Telephone Gastroenterology [facility] 175 [facility] [address] [phone] Han Sloan DO provider call back 07/16/2024 Telephone [facility] 175 [facility] [address] [phone] Han Sloan DO 07/06/2024 3:56 PM EDT - 07/07/2024 12:46 PM EDT Hospital Encounter [facility] Intermediate Care Unit B [address] [place] [phone] Rosaura Iglesias MD Kela, Kashyap Devendrabhai, MD Abrokwah, Foster Myles G, CRNA Freeman, Katharine O, MD Personal history of portal hypertension (Primary Dx); Esophageal varices without bleeding, unspecified esophageal varices type (CMS/HCC V24, CMS/HCC V28); Liver cirrhosis secondary to CASTANEDA (nonalcoholic steatohepatitis) (CMS/HCC V24, CMS/HCC V28) Discharge Disposition: Home-Health Care [facility] 07/06/2024 2:08 PM EDT Anesthesia Event [facility] Interventional Radiology [address] [place] [phone] Paul Alfaro DO 07/05[facility]20[facility] [address] [phone] Han Sloan DO 06/29/2024 [facility] 175 [facility] [address] [phone] Han Sloan DO Appointment (Upcoming Echo) 06/24/2024 11:20 AM EST [facility] [address] [phone] Han Sloan DO Cirrhosis of liver with ascites, unspecified hepatic cirrhosis type (CMS/HCC V24, CMS/HCC V28) (Primary Dx); Other ascites; Deep vein thrombosis of portal vein 06/18/2024 Lab Requisition [facility] Lab [address] [place] [address] Gerry Barksdale Sepsis, unspecified organism ([facility] V24, [facility] V28) 06/14/2024 Telephone Gastroenterology [facility] 175 [facility] 175 [facility] [address] [place] [phone] Han Sloan DO provider call back 06/13/2024 12:02 PM EST - 06/16/2024 2:30 PM EST Hospital Encounter [facility] Medical Surgical Unit [address] [place] [phone] Barak Benjamin MD Flores, Carlos M, MD Kela, Kashyap Devendrabhai, MD Mohani, Priya, MD Bacteremia (Primary Dx); Cuello catheter in place; Urinary tract infection associated with indwelling urethral catheter, initial encounter ([facility] V24); Hx of ascites; Anasarca Discharge Disposition: Home-Health Care [facility] 06/11/2024 10:01 PM EST - 06/12/2024 12:27 PM EST Emergency [facility] Emergency [address] [place] [phone] Barak Benjamin MD Gross hematuria (Primary Dx); Tachycardia; Abnormal chest CT Discharge Disposition: Home or Self Care 06/04/2024 Lab Requisition [facility] Lab [address] [place] [address] Gerry Barksdale Sepsis, unspecified organism ([facility] V24, [facility] V28) 06/03/2024 Telephone Gastroenterology [facility] 175 [facility] [address] [phone] Han Sloan DO TESTING 05/28/2024 Lab Requisition [facility] Lab [address] [place] [address] Gerry Barksdale Sepsis, unspecified organism (CMS/HCC V24, [facility]/HCC V28) 05/26/2024 Lab Requisition [facility] 299 [facility] [place] [address] Gerry Barksdale; Urinary tract infection, site not specified 05/25/2024 Telephone Gastroenterology [facility] [address] [facility] [address] [place] [phone] Han Sloan DO 05/24/2024 Telephone Gastroenterology [facility] 175 [facility] 175 [facility] [address] [place] [phone] Han Sloan, provider call back 05/19/2024 3:40 PM EST - 05/25/2024 4:38 PM EST Hospital Encounter [facility] Medical Surgical Unit [address] [place] [phone] Emily Singh DO Bukalo, Nermina, MD Nasser, Nada S, MD Kela, Kashyap Devendrabhai, MD Bilateral leg edema (Primary Dx); Urinary tract infection without hematuria, site unspecified; Hepatic cirrhosis, unspecified hepatic cirrhosis type, unspecified whether ascites present ([facility]/HCC V24, [facility]/HCC V28); Cellulitis of left leg; Severe sepsis [facility]/HCC V28) Discharge Disposition: Senior Living Facility 05/12/2024 9:15 AM EST - 05/12/2024 11:59 PM EST Hospital Encounter [facility] CT Scan [address] [place] [phone] Decompensated cirrhosis (CMS/HCC V24, [facility]/HCC V28); Ascites due to alcoholic cirrhosis ([facility]/HCC V24, [facility]/HCC V28); Urinary retention Discharge Disposition: Home or Self Care 05/11/2024 10:27 AM EST - 05/11/2024 11:59 PM EST Hospital Encounter [facility] Ultrasound [address] [place] [phone] Ascites due to alcoholic cirrhosis ([facility]/HCC V24, [facility] V28) Discharge Disposition: Home or Self Care 05/10/2024 Telephone [facility] [address] [place] [phone] Em Dixon DO Faxed Order (Silvia MARLINEMarina) 05/05/2024 Telephone Gastroenterology - [facility] 175 [facility] 175 [facility] [address] [place] [phone] Han Sloan DO from Last [...] 9:10 AM EDT Office Visit Gastroenterology - [facility] [address] [facility] [address] [place] [phone] Han Sloan DO [address] [address] Health Maintenance Due Date Last Done Comments [...] this topic Medical Devices Implanted Type Area Jewelry Designer Device Identifier Shelf Expiration Date Model / Serial / Lot Stent Viatorr 8-10mmx8/2cm - [id number] - [id number] Implanted:Qty: 1 on 07/06/2024 by Paul Bonner MD at [facility] Peripheral Vasc Drug Eluting Stents Right: Liver [employer] [id number] 05/20/2026 [id number] / [id number] / Stent Viatorr 8-10mmx8/2cm - [id number] - [id number] Implanted:Qty: 1 on 07/06/2024 by Paul Bonner MD at [facility] Peripheral Vasc Drug Eluting Stents Right: Liver [employer] [id number] 03/29/2027 [id number] / [id number] / Procedures Procedure Name Priority Date/Time Associated [...] Time - STAT (07/07/2024 11:15 AM EDT) [facility] aPTT 35.3 24.1 - 39.3 sec LAB COAGULATION METHOD 07/07/2024 12:17 PM EDT [facility] Blood Venous blood specimen / Unknown Venipuncture / Unknown 07/07/2024 11:15 AM EDT 07/07/2024 11:55 AM EDT us Annie RAND LAB BLOOD ORDERABLES Final Result [facility] [address] [place] [address], [place] [phone] * (ABNORMAL) Complete blood count (07/07/2024 6:20 AM EDT) Only the most recent of9 resultswithin the time period is included. [facility] WBC 5.0 4.8 - 10.8 K/mcL LAB HEMETOLOGY METHOD 07/07/2024 7:19 AM EDT [facility] RBC 3.60(L) 4.50 - 5.50 M/mcL LAB HEMETOLOGY METHOD 07/07/2024 7:19 AM EDT [facility] Hemoglobin 12.7(L) 13.5 - 17.5 g/dL LAB HEMETOLOGY METHOD 07/07/2024 7:19 AM T [facility] Hematocrit 38.0(L) 42.0 - 54.0 % LAB HEMETOLOGY METHOD 07/07/2024 7:19 AM T [facility] MCV 104.4(H) 79.0 - 98.0 FL LAB HEMETOLOGY METHOD 07/07/2024 7:19 AM EDT [facility] MCH 34.9(H) 27.0 - 32.0 pcg LAB HEMETOLOGY METHOD 07/07/2024 7:19 AM EDT [facility] MCHC 33.4 32.0 - 37.0 g/dL LAB HEMETOLOGY METHOD 07/07/2024 7:19 AM EDT [facility] RDW 15.3(H) 11.0 - 15.0 % LAB HEMETOLOGY METHOD 07/07/2024 7:19 AM EDT [facility] Platelets 98(L) 130 - 400 K/mcL LAB HEMETOLOGY METHOD 07/07/2024 7:19 AM EDT [facility] Comment:previously verified by slide MPV 10.6 7.0 - 11.0 FL LAB HEMETOLOGY METHOD 07/07/2024 7:19 AM EDT [facility] NRBC 0.0 <1.0 % LAB HEMETOLOGY METHOD 07/07/2024 7:19 AM EDT [facility] NRBC Absolute 0.00 <0.10 K/mcL LAB HEMETOLOGY METHOD 07/07/2024 7:19 AM [facility] Blood Venous blood specimen / Unknown Venipuncture / Unknown 07/07/2024 6:20 AM EDT 07/07/2024 6:57 AM EDT us Paola RAND LAB BLOOD ORDERABLES Final Resu lt [facility] [address] [place] [address], * Magnesium (07/07/2024 6:20 AM EDT) Only the most recent of8 resultswithin the time period is included. Magnesium 2.3 1.9 - 2.6 mg/dL LAB CHEMISTRY METHOD 07/07/2024 7:39 AM [facility] Blood Venous blood specimen / Unknown Venipuncture / Unknown 07/07/2024 6:20 AM EDT 07/07/2024 6:55 AM EDT us Paola RAND LAB BLOOD ORDERABLES Final Resu lt [facility] [address] [place] [address], [place] [phone] * (ABNORMAL) Comprehensive metabolic panel (07/07/2024 6:20 AM EDT) Only the most recent of4 resultswithin the time period is included. [facility] Sodium 130(L) 133 - 145 mmol/L LAB CHEMISTRY METHOD 07/07/2024 8:12 AM [facility] Potassium 5.4 3.5 - 5.5 mmol/L LAB CHEMISTRY METHOD 07/07/2024 8:12 AM [facility] Chloride 97 96 - 110 mmol/L LAB CHEMISTRY METHOD 07/07/2024 8:12 AM [facility] CO2 27 21 - 32 mmol/L LAB CHEMISTRY METHOD 07/07/2024 8:12 AM [facility] Anion Gap 6 3 - 11 LAB CHEMISTRY METHOD 07/07/2024 8:12 AM [facility] Glucose 153(H) 70 - 100 mg/dL LAB CHEMISTRY METHOD 07/07/2024 8:12 AM [facility] BUN 10 5 - 25 mg/dL LAB CHEMISTRY METHOD 07/07/2024 8:12 AM [facility] Creatinine 0.62(L) 0.70 - 1.30 mg/dL LAB CHEMISTRY METHOD 07/07/2024 8:12 AM [facility] eGFR 105 >=60 mL/min/1. 73m2 LAB CHEMISTRY METHOD 07/07/2024 8:12 AM [facility] Comment:Calculation based on the??Chronic Kidney Disease Epidemiology Collaboration (CKD-EPI) equation refit??without adjustment for race. BUN/Creatinine Ratio 16.1 LAB CHEMISTRY METHOD 07/07/2024 8:12 AM [facility] Calcium 8.4(L) 8.5 - 10.5 mg/dL LAB CHEMISTRY METHOD 07/07/2024 8:12 AM [facility] AST (SGOT) 67(H) 10 - 42 unit/L LAB CHEMISTRY METHOD 07/07/2024 8:12 AM [facility] Comment:Results verified by repeat testing ALT (SGPT) 39 10 - 60 unit/L LAB CHEMISTRY METHOD 07/07/2024 8:12 AM [facility] Comment:Results verified by repeat testing Alkaline Phosphatase 167(H) 42 - 121 unit/L LAB CHEMISTRY METHOD 07/07/2024 8:12 AM [facility] Total Protein 5.9(L) 6.0 - 8.0 g/dL LAB CHEMISTRY METHOD 07/07/2024 8:12 AM [facility] Albumin 2.4(L) 3.2 - 5.0 g/dL LAB CHEMISTRY METHOD 07/07/2024 8:12 AM [facility] Total Bilirubin 3.8(H) 0.0 - 1.4 mg/dL LAB CHEMISTRY METHOD 07/07/2024 8:12 AM [facility] Blood Venous blood specimen / Unknown Venipuncture / Unknown 07/07/2024 6:20 AM EDT 07/07/2024 6:55 AM EDT us Paola RAND LAB BLOOD ORDERABLES Final Resu lt [facility] [address] [place] [address], [place] [phone] * (ABNORMAL) POCT Glucose, blood (07/06/2024 5:56 PM EDT) Only the most recent of2 resultswithin the time period is included. Glucose POCT 141(H) 70 - 100 mg/dL 07/06/2024 5:57 PM EDT [facility] Blood Capillary blood specimen / Unknown 07/06/2024 5:56 PM EDT 07/06/2024 5:58 PM EDT us Rosaura Iglesias MD LAB POINT OF CARE TE ST DOCKED DEVICE UNSOLICITED RESULTS Final Result [facility] [address] [place] [address], [place] [phone] * IR Insert Hepatic Shunt TIPS (07/06/2024 [...] Signed Date: 07/06/2024 17:22 ET Workstation ID: [id number] Transcribed By: Self Edit Transcribed Date: 07/06/2024 [...] and a 0.035 guidewire was inserted. ??A 10-Nauruan by 45 cm check flow sheath was inserted and advanced to the IVC. ??A 5-Nauruan MPA catheter was then used to catheterize the right hepatic vein. ??Venogram confirms position in the hepatic vein. ??The 10-Nauruan by 45 cm sheath was advanced over [...] with an 6 mm x 6 cm INSPECTOR SEMICONDUCTOR WAFER balloon. ??The sheath was then advanced into [...] and a 0.035 guidewire was inserted. A 10-Nauruan by45 cm check flow sheath was inserted and advanced to the IVC. A 5-FrenchMPA catheter was then used to catheterize the right hepatic vein.Venogram confirms position in the hepatic vein. The 10-Nauruan by 45 cmsheath was advanced over the catheter into the right hepatic vein. TheFix That Bug TIPS set was then introduced through the [...] dilatedwith an 6 mm x 6 cm INSPECTOR SEMICONDUCTOR WAFER balloon. The sheath was then advanced into [...] Signed Date: 07/06/2024 17:22 ET Workstation ID: [id number] Transcribed By: Self Edit Transcribed Date: 07/06/2024 17:09 ET us Job Anderson MD IMG IR PROCEDURES Final Re sult * TH AN ENDOTRACHEAL(NO CHARGE) (07/06/2024 3:00 PM EDT) Narrative Yovanny Mendez CRNA - 07/06/2024 3:00 PM EDT Yovanny Mendez CRNA ? 07/06/2024 ??3:01 PM General Information and Staff Patient location during procedure: [place] Resident/CIGARETTE TESTER: Yovanny Mendez CRNA Performed: resident/CIGARETTE TESTER/CAA Performed by: Yovanny Mendez CRNA Authorized by: [...] resultswithin the time period is included. Pathologist [facility] Protime 15.9(H) 10.6 - 13.9 sec LAB COAGULATION METHOD 07/06/2024 2:28 PM EDT [facility] INR 1.3 LAB COAGULATION METHOD 07/06/2024 2:28 PM EDT [facility] Blood Venous blood specimen / Unknown 07/06/2024 1:45 PM EDT 07/06/2024 1:55 PM EDT us Paul Bonner MD LAB BLOOD ORDERABLES Final Resu lt [facility] [address] [place] [address], [place] [phone] * Type and screen (07/06/2024 1:45 PM EDT) ABO Group B 07/06/2024 2:47 PM EDT [facility] Rh Type Positive 07/06/2024 2:47 PM EDT [facility] Antibody Screen Negative 07/06/2024 2:47 PM T [facility] Blood Venous blood specimen / Unknown 07/06/2024 1:45 PM EDT 07/06/2024 1:55 PM EDT [facility] LAB BLOOD BANK TEST ORDERABLES Final Result [facility] [address] [place] [address], [place] [phone] * (ABNORMAL) Basic metabolic panel (07/06/2024 1:45 PM EDT) Only the most recent of13 resultswithin the time period is included. Sodium 135 133 - 145 mmol/L LAB CHEMISTRY METHOD 07/06/2024 2:21 PM [facility] Potassium 5.0 3.5 - 5.5 mmol/L LAB CHEMISTRY METHOD 07/06/2024 2:21 PM [facility] Comment:Hemolysis present Chloride 100 96 - 110 mmol/L LAB CHEMISTRY METHOD 07/06/2024 2:21 PM [facility] CO2 25 21 - 32 mmol/L LAB CHEMISTRY METHOD 07/06/2024 2:21 PM [facility] Anion Gap 10 3 - 11 LAB CHEMISTRY METHOD 07/06/2024 2:21 PM [facility] Glucose 161(H) 70 - 100 mg/dL LAB CHEMISTRY METHOD 07/06/2024 2:21 PM [facility] BUN 8 5 - 25 mg/dL LAB CHEMISTRY METHOD 07/06/2024 2:21 PM [facility] Creatinine 0.70 0.70 - 1.30 mg/dL LAB CHEMISTRY METHOD 07/06/2024 2:21 PM EDT [facility] eGFR 102 >=60 mL/min/1. 73m2 LAB CHEMISTRY METHOD 07/06/2024 2:21 PM EDT [facility] Comment:Calculation based on the??Chronic Kidney Disease Epidemiology Collaboration (CKD-EPI) equation refit??without adjustment for race. BUN/Creatinine Ratio 11.4 LAB CHEMISTRY METHOD 07/06/2024 2:21 PM EDT [facility] Calcium 8.7 8.5 - 10.5 mg/dL LAB CHEMISTRY METHOD 07/06/2024 2:21 PM EDT [facility] Blood Venous blood specimen / Unknown 07/06/2024 1:45 PM EDT 07/06/2024 1:55 PM EDT us Paul Bonner MD LAB BLOOD ORDERABLES Final Resu lt [facility] [address] [place] [address], [place] [phone] * (ABNORMAL) TRANSTHORACIC ECHOCARDIOGRAM (TTE) COMPLETE W/ CONTRAST (06/15/2024 2:35 PM EST) Left [facility] [place] 5.9 cm CV PACS LA Area Sys [...] GEMUSE QTc 485 ms GEMUSE P Wave [place] 28 degrees GEMUSE R [place] -36 degrees GEMUSE T [place] 29 degrees GEMUSE ECG Interpretation Normal sinus rhythm Left axis deviation Right bundle branch block Abnormal ECG When compared with ECG of 12-JUN-2024 03:57, No significant change was found Confirmed by MD Felix [place] ([id number]) on 06/15/2024 5:37:07 PM GEMUSE 06/15/2024 12:5 3 PM EST 06/15/2024 5:37 PM EST us Liang Reinoso MD ECG ORDERABLES Fin al Result GEMUSE * Phosphorus (06/15/2024 6:38 AM EST) Only the most recent of5 resultswithin the time period is included. [facility] Phosphorus 3.0 2.5 - 4.5 mg/dL LAB CHEMISTRY METHOD 06/15/2024 7:50 AM EST [facility] Blood Venous blood specimen / Unknown Venipuncture / Unknown 06/15/2024 6:38 AM EST 06/15/2024 7:06 AM EST us Liang Reinoso MD LAB BLOOD ORDERABLE S Final Result Performing Organization Address [facility] Co de Phone Number [facility] [address] [place] [address], [place] [phone] * Cell count with reflex differential, body [...] Body Fluid Color Yellow 06/14/2024 11:38 AM [facility] Body Fluid Clarity Clear 06/14/2024 11:38 AM EST [facility] Body Fluid Source Peritoneal 06/14/2024 11:38 AM EST [facility] Peritoneal Fluid Peritoneal cavity structure / Unknown Non-blood Collection / Unknown 06/14/2024 10:19 AM EST 06/14/2024 10:27 AM EST Narrative [facility] - 06/14/2024 11:38 AM EST No reference ranges have been established for body fluids. Clinical correlation recommended. Cristiana RAND LAB BODY FLUIDS AND STO OLS ORDERABLES Final Result Performing Organization Address City/[facility]/ZIP Co de Phone Number [facility] [address] [place] [address], [place] [phone] * Culture body fluid with gram stain (06/14/2024 10:19 AM EST) Fluid Culture No growth at 3 days LAB MICROBIOLOGY METHOD 06/17/2024 11:25 AM EST [facility] Gram Stain Result No polymorphonuclear leukocytes, No epithelial cells, and No organisms noted 06/17/2024 11:25 AM EST [facility] Peritoneal Fluid Peritoneal cavity structure / Unknown Non-blood Collection / Unknown 06/14/2024 10:19 AM EST 06/14/2024 10:26 AM EST Cristiana RAND LAB MICROBIOLOGY - GENE RAL ORDERABLES Final Result [facility] [address] [place] [address], [place] [phone] * Differential body fluid (06/14/2024 10:19 AM [...] OLS ORDERABLES Final Result Performing Organization Address City/[facility]/ZIP Co de Phone Number [facility] [address] [place] [address], [place] [phone] * Culture fungal, other (06/14/2024 10:19 AM EST) Culture, Fungus Negative for Fungus after 4 Weeks 07/12/2024 10:17 AM EDT [facility] Peritoneal Fluid Peritoneal cavity structure / Unknown Non-blood Collection / Unknown 06/14/2024 10:19 AM EST 06/14/2024 10:27 AM EST Cristiana RAND LAB MICROBIOLOGY - GENE RAL ORDERABLES Final Result Performing Organization Address City/[facility]/ZIP Co de Phone Number [facility] [address] [place] [address], [place] [phone] * Specific gravity, body fluid (06/14/2024 10:19 AM EST) Spec Grav, Fluid 1.014 06/14/2024 11:01 AM EST [facility] Peritoneal Fluid Non-blood Collection / Unknown 06/14/2024 10:19 AM EST 06/14/2024 10:26 AM EST [facility] - 06/14/2024 11:01 AM EST No reference ranges have been established for body fluids. Clinical correlation recommended. Cristiana RAND LAB BODY FLUIDS AND STO OLS ORDERABLES Final Result Performing Organization Address [facility] de Phone Number [facility] [address] [place] [address], [place] [phone] * Protein, body fluid (06/14/2024 10:19 AM EST) Only the most recent of2 resultswithin the time period is included. Protein, Fluid 1.4 See Comment g/dL LAB CHEMISTRY METHOD 06/14/2024 11:19 AM EST [facility] Peritoneal Fluid Non-blood Collection / Unknown 06/14/2024 10:19 AM EST 06/14/2024 10:26 AM EST [facility] - 06/14/2024 11:19 AM EST No reference ranges have been established for body fluids. Clinical correlation recommended. Cristiana RAND LAB BODY FLUIDS AND STO OLS ORDERABLES Final Result Performing Organization Address [facility]/ZIP Co de Phone Number [facility] [address] [place] [address], [place] [phone] * Lactate dehydrogenase, body fluid (06/14/2024 10:19 AM EST) LD, Fluid 78 See Comment unit/L LAB CHEMISTRY METHOD 06/14/2024 11:42 AM EST [facility] Peritoneal Fluid Peritoneal cavity structure / Unknown Non-blood Collection / Unknown 06/14/2024 10:19 AM EST 06/14/2024 10:27 AM EST [facility] - 06/14/2024 11:42 AM EST No reference ranges have been established for body fluids. Clinical correlation recommended. Cristiana RAND LAB BODY FLUIDS AND STO OLS ORDERABLES Final Result Performing Organization Address [facility]/ZIP Co de Phone Number [facility] [address] [place] [address], [place] [phone] * Glucose, body fluid (06/14/2024 10:19 AM EST) Glucose, Fluid 150 See Comment mg/dL LAB CHEMISTRY METHOD 06/14/2024 11:28 AM EST [facility] Ascites 06/14/2024 10:1 9 AM EST 06/14/2024 10:26 AM EST [facility] - 06/14/2024 11:28 AM EST No reference ranges have been established for body fluids. Clinical correlation recommended. Cristiana RAND LAB BODY FLUIDS AND STO OLS ORDERABLES Final Result Performing Organization Address [facility] de Phone Number [facility] [address] [place] [address], [place] [phone] * Amylase, body fluid (06/14/2024 10:19 AM EST) Amylase, Fluid 24 See Comment unit/L LAB CHEMISTRY METHOD 06/14/2024 11:19 AM EST [facility] Peritoneal Fluid Non-blood Collection / Unknown 06/14/2024 10:19 AM EST 06/14/2024 10:26 AM EST [facility] - 06/14/2024 11:19 AM EST No reference ranges have been established for body fluids. Clinical correlation recommended. Cristiana RAND LAB BODY FLUIDS AND STO OLS ORDERABLES Final Result Performing Organization Address [facility]/ZIP Co de Phone Number [facility] [address] [place] [address], [place] [phone] * Albumin, body fluid (06/14/2024 10:19 AM [...] OLS ORDERABLES Final Result Performing Organization Address [facility] Co de Phone Number [facility] [address] [place] [address], [place] [phone] * Non-gynecologic cytology (06/14/2024 10:19 AM EST) Final Diagnosis A. Peritoneal fluid, paracentesis, (ThinPrep, cell block): Negative for malignant cells. 06/17/2024 4:30 PM [facility] Specimen A Adequacy Satisfactory for evaluation 06/17/2024 4:30 PM [facility] Gross Description A. Peritoneal Cavity, : Received 115 ml of yellow fluid; 1 ThinPrep, 1 Cell block Cell block in formalin @1500; total formalin fixation time 6 hours. 06/17/2024 4:30 PM EST [facility] Disclaimer Unless otherwise specified, all tissue is 10% NB formalin fixed and paraffin embedded. Technical cytopathology services provided by [facility], at [address] [place] [address] (CLIA # [id number]/Katya Lo MD, Director Supply.) 06/17/2024 4:30 PM EST [facility] Peritoneal Fluid Peritoneal cavity structure / Unknown Non-blood Collection / Unknown 06/14/2024 10:19 AM EST 06/14/2024 2:30 PM EST us Cristiana RAND LAB CYTOLOGY ORDERABLES Final Result [facility] [address] [place] [address], [place] [phone] * [place] Paracentesis w Image Guidance (06/14/2024 [...] Signed Date: 06/15/2024 12:40 ET Workstation ID: [id number] Transcribed By: Self Edit Transcribed Date: 06/14/2024 11:29 ET Resident/PA/TRACK VEHICLE REPAIRER: Milady Chilel Narrative 06/15/2024 12:40 PM EST [...] Signed Date: 06/15/2024 12:40 ET Workstation ID: [id number] Transcribed By: Self Edit Transcribed Date: 06/14/2024 11:29 ET Resident/PA/TRACK VEHICLE REPAIRER: Milady Chilel us Cristiana RAND IMG US PROCEDURES Final Result * Lactate, with reflex (06/14/2024 5:26 AM EST) Only the most recent of3 resultswithin the time period is included. LACTIC ACID 1.6 0.4 - 2.0 mmol/L LAB CHEMISTRY METHOD 06/14/2024 6:03 AM [facility] Blood Venous blood specimen / Unknown Venipuncture / Unknown 06/14/2024 5:26 AM EST 06/14/2024 5:33 AM EST us Napoleon Neely MD LAB BLOOD ORDERABLES Final Re sult Performing Organization Address City/[facility]/ZIP Co de Phone Number [facility] [address] [place] [address], [place] [phone] * Culture blood (06/14/2024 5:22 AM EST) Only the most recent of6 resultswithin the time period is included. [facility] Culture, Blood No growth at 5 days 06/19/2024 6:01 AM [facility] Blood Venous blood specimen / Unknown Venipuncture / Unknown 06/14/2024 5:22 AM EST 06/14/2024 5:33 AM EST us Napoleon Neely MD LAB MICROBIOLOGY - GENERAL OR DERABLES Final Result Performing Organization Address [facility]/ZIP Co de Phone Number [facility] [address] [place] [address], [place] [phone] * (ABNORMAL) CBC auto differential (06/14/2024 5:14 AM EST) Only the most recent of5 resultswithin the time period is included. Pathologist [facility] WBC 4.5(L) 4.8 - 10.8 K/mcL LAB HEMETOLOGY METHOD 06/14/2024 6:00 AM [facility] RBC 3.30(L) 4.50 - 5.50 M/[facility] LAB HEMETOLOGY METHOD 06/14/2024 6:00 AM [facility] Hemoglobin 11.6(L) 13.5 - 17.5 g/dL LAB HEMETOLOGY METHOD 06/14/2024 6:00 AM [facility] Hematocrit 35.2(L) 42.0 - 54.0 % LAB HEMETOLOGY METHOD 06/14/2024 6:00 AM [facility] MCV 107.0(H) 79.0 - 98.0 FL LAB HEMETOLOGY METHOD 06/14/2024 6:00 AM [facility] MCH 35.3(H) 27.0 - 32.0 pcg LAB HEMETOLOGY METHOD 06/14/2024 6:00 AM [facility] MCHC 33.0 32.0 - 37.0 g/dL LAB HEMETOLOGY METHOD 06/14/2024 6:00 AM [facility] RDW 17.5(H) 11.0 - 15.0 % LAB HEMETOLOGY METHOD 06/14/2024 6:00 AM [facility] Platelets 77(L) 130 - 400 K/mcL LAB HEMETOLOGY METHOD 06/14/2024 6:00 AM [facility] Comment:previously verified by slide MPV 10.3 7.0 - 11.0 FL LAB HEMETOLOGY METHOD 06/14/2024 6:00 AM [facility] NRBC 0.0 <1.0 % LAB HEMETOLOGY METHOD 06/14/2024 6:00 AM [facility] NRBC Absolute 0.00 <0.10 K/mcL LAB HEMETOLOGY METHOD 06/14/2024 6:00 AM [facility] Neutrophils Relative 75.4 % LAB HEMETOLOGY METHOD 06/14/2024 6:00 AM [facility] Lymphocytes Relative 13.9 % LAB HEMETOLOGY METHOD 06/14/2024 6:00 AM [facility] Monocytes Relative 9.7 % LAB HEMETOLOGY METHOD 06/14/2024 6:00 AM [facility] Eosinophils Relative 0.4 % LAB HEMETOLOGY METHOD 06/14/2024 6:00 AM EST [facility] Basophils Relative 0.4 % LAB HEMETOLOGY METHOD 06/14/2024 6:00 AM [facility] Immature Granulocytes Relative 0.2 % LAB HEMETOLOGY METHOD 06/14/2024 6:00 AM [facility] Neutrophils Absolute 3.35 1.50 - 7.00 K/mcL LAB HEMETOLOGY METHOD 06/14/2024 6:00 AM [facility] Lymphocytes Absolute 0.62(L) 1.00 - 5.00 K/mcL LAB HEMETOLOGY METHOD 06/14/2024 6:00 AM [facility] Monocytes Absolute 0.43 0.20 - 1.00 K/mcL LAB HEMETOLOGY METHOD 06/14/2024 6:00 AM [facility] Eosinophils Absolute 0.02 0.00 - 0.50 K/mcL LAB HEMETOLOGY METHOD 06/14/2024 6:00 AM EST [facility] Basophils Absolute 0.02 0.00 - 0.20 K/mcL LAB HEMETOLOGY METHOD 06/14/2024 6:00 AM [facility] Immature Granulocytes Absolute 0.01 0.00 - 0.03 K/mcL LAB HEMETOLOGY METHOD 06/14/2024 6:00 AM [facility] Blood Venous blood specimen / Unknown Venipuncture / Unknown 06/14/2024 5:14 AM EST 06/14/2024 5:34 AM EST Napoleon Neely MD LAB BLOOD ORDERABLES Final Re sult [facility]) [facility] [address] [place] [address], * ECG-Annotated (06/14/2024) Only the most recent of3 resultswithin the time period is included. us Provider Onbase MD ECG ORDERABLES Final Result * Prostate specific antigen screen (06/13/2024 12:37 PM EST) [facility] PSA 0.18 0.00 - 4.00 ng/mL LAB CHEMISTRY METHOD 06/13/2024 2:31 PM EST [facility] Blood Venous blood specimen / Unknown Venipuncture / Unknown 06/13/2024 12:37 PM EST 06/13/2024 12:55 PM EST Narrative [facility] - 06/13/2024 2:31 PM EST The Siemens [employer] Chemiluminescent Immunoassay is used. Results obtained with different assay methods or kits cannot be used interchangeably. Results cannot be interpreted as absolute evidence of the presence or absence of malignant disease. us Napoleon Neely MD LAB BLOOD ORDERABLES Final Re sult Performing Organization Address [facility]/ZIP Co de Phone Number [facility] [address] [place] [address], [place] [phone] * (ABNORMAL) C-reactive protein (06/13/2024 12:37 PM EST) Only the most recent of2 resultswithin the time period is included. [facility] C-Reactive Protein 10.20(H) <=0.50 mg/dL LAB CHEMISTRY METHOD 06/13/2024 2:25 PM EST [facility] Blood Venous blood specimen / Unknown Venipuncture / Unknown 06/13/2024 12:37 PM EST 06/13/2024 12:55 PM EST us Napoleon Neely MD LAB BLOOD ORDERABLES Final Re sult Performing Organization Address City/[facility]/ZIP Co de Phone Number [facility] [address] [place] [address], [place] [phone] * (ABNORMAL) Hepatic function panel (06/13/2024 12:37 PM EST) [facility] Total Protein 5.9(L) 6.0 - 8.0 g/dL LAB CHEMISTRY METHOD 06/13/2024 2:25 PM EST [facility] Albumin 2.3(L) 3.2 - 5.0 g/dL LAB CHEMISTRY METHOD 06/13/2024 2:25 PM [facility] Total Bilirubin 2.6(H) 0.0 - 1.4 mg/dL LAB CHEMISTRY METHOD 06/13/2024 2:25 PM [facility] Bilirubin, Direct 1.4(H) 0.0 - 0.3 mg/dL LAB CHEMISTRY METHOD 06/13/2024 2:25 PM [facility] Bilirubin, Indirect 1.2(H) 0.0 - 1.1 mg/dL LAB CHEMISTRY METHOD 06/13/2024 2:25 PM [facility] ALT (SGPT) 20 10 - 60 unit/L LAB CHEMISTRY METHOD 06/13/2024 2:25 PM [facility] AST (SGOT) 32 10 - 42 unit/L LAB CHEMISTRY METHOD 06/13/2024 2:25 PM [facility] Alkaline Phosphatase 133(H) 42 - 121 unit/L LAB CHEMISTRY METHOD 06/13/2024 2:25 PM [facility] Blood Venous blood specimen / Unknown Venipuncture / Unknown 06/13/2024 12:37 PM EST 06/13/2024 12:55 PM EST us Napoleon Neely MD LAB BLOOD ORDERABLES Final Re sult [facility] [address] [place] [address], * Troponin I high sensitivity (06/12/2024 6:44 AM EST) Only the most recent of4 resultswithin the time period is included. [facility] High Sensitivity Troponin I 17 <=79 ng/L [...] Resu lt [facility] [address] [place] [address], [place] [phone] * CT Abdomen Pelvis w Contrast (06/12/2024 6:28 AM EST) Only the most recent of2 resultswithin the time period is included. Anatomical Region Laterality Modality Body Computed Tomogra phy 06/12/2024 7:06 AM EST Impressions 06/12/2024 7:06 AM EST Impression: Cirrhotic liver with portal hypertension including wysvrjct-bn-qhrgc volume ascites, splenomegaly and varices. No apparent [...] Impression: Cirrhotic liver with portal hypertension including mjhwdvqf-ve-tvbhn volume ascites, splenomegaly and varices. No apparent [...] recommended in 3 months to assess stability. Zhkyc-vl-hewypjkd size left pleural effusion and trace right [...] contour and moderate volume of ascites. Splenomegaly. Iwmbb-ib-kechesex size left pleural effusion and trace right [...] contour and moderate volume of ascites. Splenomegaly. Mrwyr-zc-beoiyqjm size left pleural effusion and trace right [...] recommended in 3 months to assess stability. Oqdbz-pp-hmckeoqu size left pleural effusion and trace right [...] ORDERABLES Final Resu lt Performing Organization Address [facility]/ZIP Co de Phone Number [facility] [address] [place] [address], * (ABNORMAL) Blood culture pathogens molecular study (06/12/2024 3:44 AM EST) [facility] Pseudomonas aeruginosa Detected (A) Not Detected LAB MICROBIOLOGY METHOD 06/13/2024 7:45 AM EST [facility] Blood Venous blood specimen / Unknown Venipuncture / Unknown 06/12/2024 3:44 AM EST 06/12/2024 3:51 AM EST Nayeli RAND LAB MICROBIOLOGY - GENERAL ORDE RABLES Final Result Performing Organization Address [facility] de Phone Number [facility] [address] [place] [address], * (ABNORMAL) Lactate (06/12/2024 3:40 AM EST) Only the most recent of6 resultswithin the time period is included. [facility] Lactate 3.2(HH) 0.4 - 2.0 mmol/L LAB CHEMISTRY METHOD 06/12/2024 4:30 AM EST [facility] Blood Venous blood specimen / Unknown Venipuncture / Unknown 06/12/2024 3:40 AM EST 06/12/2024 3:51 AM EST Nayeli RAND LAB BLOOD ORDERABLES Final Resu lt Performing Organization Address [facility]/ZIP Co de Phone Number [facility] [address] [place] [address], [place] [phone] * (ABNORMAL) Urinalysis with reflex microscopic and culture (06/12/2024 1:15 AM EST) Only the most recent of2 resultswithin the time period is included. [facility] Specific [place] Urine 1.007 1.003 - 1.030 LAB URINALYSIS - AUTOMATED METHOD 06/12/2024 3:41 AM [facility] pH, Urine 6.0 5.0 - 8.0 pH LAB URINALYSIS - AUTOMATED METHOD 06/12/2024 3:41 AM [facility] Leukocytes, Urine Small(A) Negative LAB URINALYSIS - AUTOMATED METHOD 06/12/2024 3:41 AM [facility] Nitrite, Urine Negative Negative LAB URINALYSIS - AUTOMATED METHOD 06/12/2024 3:41 AM [facility] Protein, Urine Negative <=Trace mg/dL LAB URINALYSIS - AUTOMATED METHOD 06/12/2024 3:41 AM [facility] Glucose, Urine Negative Negative mg/dL LAB URINALYSIS - AUTOMATED METHOD 06/12/2024 3:41 AM [facility] Ketones, Urine Negative Negative mg/dL LAB URINALYSIS - AUTOMATED METHOD 06/12/2024 3:41 AM [facility] Urobilinogen, Urine 0.2 0.2 - 1.0 mg/dL LAB URINALYSIS - AUTOMATED METHOD 06/12/2024 3:41 AM [facility] Bilirubin, Urine Negative Negative LAB URINALYSIS - AUTOMATED METHOD 06/12/2024 3:41 AM [facility] Blood, Urine Large(A) Negative LAB URINALYSIS - AUTOMATED METHOD 06/12/2024 3:41 AM [facility] RBC, Urine 156.5(H) 0 - 4 /HPF LAB URINALYSIS - AUTOMATED METHOD 06/12/2024 3:41 AM [facility] WBC, Urine 16.6(H) 0 - 4 /HPF LAB URINALYSIS - AUTOMATED METHOD 06/12/2024 3:41 AM [facility] Squamous Epithelial, Urine 9 0 - 60 /LPF LAB URINALYSIS - AUTOMATED METHOD 06/12/2024 3:41 AM [facility] Bacteria, Urine Negative Negative /HPF LAB URINALYSIS - AUTOMATED METHOD 06/12/2024 3:41 AM EST [facility] Hyaline Casts, Urine 0.8 0 - 3 /LPF LAB URINALYSIS - AUTOMATED METHOD 06/12/2024 3:41 AM [facility] Urine Urine specimen obtained by clean catch procedure / Unknown Non-blood Collection / Unknown 06/12/2024 1:15 AM EST 06/12/2024 2:59 AM EST Nayeli RAND LAB URINE ORDERABLES Final Resu lt Performing Organization Address [facility] Co de Phone Number [facility] [address] [place] [address], [place] [phone] * Pugh urine culture tube (06/12/2024 1:15 [...] ORDERABLES Final Resu lt Performing Organization Address City/[facility]/ZIP Co de Phone Number [facility] [address] [place] [address], [place] [phone] * (ABNORMAL) Culture urine (06/12/2024 1:15 AM [...] LAURIE OCASIO Final Result Performing Organization Address City/[facility]/ZIP Co de Phone Number [facility] [address] [place] [address], * (ABNORMAL) Thyroid stimulating hormone (05/26/2024 6:59 AM EST) [facility] TSH 5.20(H) 0.40 - 4.00 mcIU/mL LAB CHEMISTRY METHOD 05/26/2024 1:24 PM EST [facility] Blood Venous blood specimen / Unknown Venipuncture / Unknown 05/26/2024 6:59 AM EST 05/26/2024 10:29 AM EST Gerry Barksdale LAB BLOOD ORDERABLES Final Resul t Performing Organization Address [facility]/ZIP Co de Phone Number [facility] [address] [place] [address], * Folate (05/26/2024 6:59 AM EST) Folate 4.3 2.8 - 17.0 ng/ml LAB CHEMISTRY METHOD 05/26/2024 1:39 PM EST [facility] Blood Venous blood specimen / Unknown Venipuncture / Unknown 05/26/2024 6:59 AM EST 05/26/2024 10:29 AM EST Gerry Barksdale LAB BLOOD ORDERABLES Final Resul t [facility] [address] [place] [address], [place] [phone] * (ABNORMAL) Vitamin B12 (05/26/2024 6:59 AM EST) Vitamin B-12 1,309(H) 250 - 900 pcg/mL LAB CHEMISTRY METHOD 05/26/2024 1:39 PM EST [facility] Blood Venous blood specimen / Unknown Venipuncture / Unknown 05/26/2024 6:59 AM EST 05/26/2024 10:29 AM EST Gerry Barksdale LAB BLOOD ORDERABLES Final Resul t Performing Organization Address City/[facility]/ZIP Co de Phone Number [facility] [address] [place] [address], [place] [phone] * Vancomycin, trough (05/23/2024 12:10 PM EST) Only the most recent of3 resultswithin the time period is included. Vancomycin Trough 13.0 10.0 - 20.0 mcg/mL LAB CHEMISTRY METHOD 05/23/2024 12:59 PM EST [facility] Blood Venous blood specimen / Unknown Venipuncture / Unknown 05/23/2024 12:10 PM EST 05/23/2024 12:28 PM EST Hue RAND LAB BLOOD ORDERABLES Final Re sult [facility] [address] [place] [address], [place] [phone] * Lavender tube (05/23/2024 3:07 AM EST) Only the most recent of2 resultswithin the time period is included. Extra Tube Hold for add-ons. 05/23/2024 5:01 AM EST [facility] Comment:Auto resulted. Blood Venous blood specimen / Unknown 05/23/2024 3:07 AM EST 05/23/2024 3:19 AM EST us Chemo Reveles MD LAB BLOOD ORDERABLES Final Resu lt [facility] [address] [place] [address], [place] [phone] * Vascular US duplex lower extremity venous [...] Signed Date: 05/21/2024 09:23 ET Workstation ID: [id number] Transcribed By: Self Edit Transcribed Date: 05/21/2024 [...] Signed Date: 05/21/2024 09:23 ET Workstation ID: [id number] Transcribed By: Self Edit Transcribed Date: 05/21/2024 [...] MD LAB BLOOD ORDERABLES Final Resu lt [facility] [address] [place] [address], [place] [phone] * Free thyroxine with reflex to free triiodothyronine (05/21/2024 3:17 AM EST) Free T4 1.02 0.70 - 1.80 ng/dL LAB CHEMISTRY METHOD 05/21/2024 4:25 AM EST [facility] Blood Venous blood specimen / Unknown Venipuncture / Unknown 05/21/2024 3:17 AM EST 05/21/2024 3:23 AM EST us Chemo Reveles MD LAB BLOOD ORDERABLES Final Resu lt Performing Organization Address City/[facility]/ZIP Co de Phone Number [facility] [address] [place] [address], [place] [phone] * Triiodothyronine free (05/21/2024 3:17 AM EST) T3, Free 249 230 - 420 pcg/dL LAB CHEMISTRY METHOD 05/21/2024 4:50 AM EST [facility] Blood Venous blood specimen / Unknown Venipuncture / Unknown 05/21/2024 3:17 AM EST 05/21/2024 3:23 AM EST us Chemo Reveles MD LAB BLOOD ORDERABLES Final Resu lt Performing Organization Address City/[facility]/ZIP Co de Phone Number [facility] [address] [place] [address], [place] [phone] * Hemoglobin A1c (05/21/2024 3:17 AM EST) [...] ORDERABLES Final Resu lt Performing Organization Address City/[facility]/ZIP Co de Phone Number [facility] [address] [place] [address], [place] [phone] * (ABNORMAL) Sedimentation rate (05/20/2024 6:09 AM EST) Sed Rate 35(H) 0 - 20 mm/hr LAB HEMETOLOGY METHOD 05/20/2024 2:00 PM EST [facility] Blood Venous blood specimen / Unknown Venipuncture / Unknown 05/20/2024 6:09 AM EST 05/20/2024 6:32 AM EST us Chemo Reveles MD LAB BLOOD ORDERABLES Final Resu lt Performing Organization Address [facility] Co de Phone Number [facility] [address] [place] [address], [place] [phone] * XR Chest 2 Views (05/19/2024 6:51 PM EST) Anatomical Region Laterality Modality Body Radiographic Esmer ging 05/20/2024 8:05 AM EST Impressions 05/20/2024 8:06 AM EST Small-moderate left pleural effusion. -------- FINAL REPORT -------- Dictated By: Frank Vivar Dictated Date: 05/20/2024 08:05 ET Assigned Physician: Frank Vivar Reviewed and Electronically Signed By: Frank Vivar Signed Date: 05/20/2024 08:06 ET Workstation ID: [id number] Transcribed By: Self Edit Transcribed Date: 05/20/2024 [...] -------- FINAL REPORT -------- Dictated By: Frank Vivra Dictated Date: 05/20/2024 08:05 ET Assigned Physician: Frank Vivar Reviewed and Electronically Signed By: Frank Vivar Signed Date: 05/20/2024 08:06 ET Workstation ID: [id number] Transcribed By: Self Edit Transcribed Date: 05/20/2024 [...] DO LAB BLOOD ORDERABLES Berenice l Result [facility] [address] [place] [address], [place] [phone] from Last 3 Months Insurance [facility] MEDIC[facility] Member Subscriber Plan / Payer (Ef fective 2024-Present) Name:Jonny Reed Relation to Subscriber:Self Name:Jonny Reed Payer ID:[id number] Group ID:[id number] Type:Not on file Address: [place] [address] [place] [phone] Advance Directives Documents on File Type Date Recorded 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
--- OUTSIDE RECORDS SUMMARY | 2024-07-30 10:48 | XMS_ITS | Clinical Summary ---
Author Organization [facility] Address [address] [place] [address] Care Team Providers Care Envelope Fold Operator Name Role Phone Dago Ferro MD Primary Care Provider [phone] Allergies No known active allergies Medications Medication [...] age to complete this topic Care Teams Envelope Fold Operator Relationship Specialty Start Date End Date Dago Ferro MD PCP - General Internal Medicine 03/23/19
--- OUTSIDE RECORDS SUMMARY | 2024-07-30 10:48 | XMS_ITS | Encounter Summary ---
Author Organization [facility] Address [address] [place] [address] Care Team Providers Care Technical Editor Name Role Phone Dalia Harmon Primary Care Provider [phone] Reason for Visit * Reason Onset Date Comments provider call back 07/26/2024 Encounter Details Date Type Department Care Team (Late st Contact Info) Description 07/26/2024 Telephone Gastroenterology - [place] [address] [place] [phone] Han Tavera DO [address] [place] [address] provider call back Social History Tobacco Use [...] documented in this encounter Progress Notes * Amairani Hood MA - 07/30/2024 9:12 AM EDT LM informing pt that Per Dr tavera- he has been in touch with his doctors and aware of his treatment plans. Pt to follow medication directions given to him by providers the stent procedure is scheduled with. * Nayeli So - 07/26/2024 3:26 PM EDT Patient has procedure to adjust the stents put in 08/06 and is requesting a call back from Dr Tavera himself to go over medications that he should & should not be taking prior. Please advise. documented in this encounter Plan of Treatment Upcoming Encounters Date Type Department Care Team (Late st Contact Info) Description 09/02/2024 9:10 AM EDT Office Visit Gastroenterology - [place] [address] [facility] [address] [place] [phone] Han Tavera DO 175 [facility] 200 [place] [address] documented as of this encounter Visit Diagnoses Not on filedocumented in this encounter Care Teams Technical Editor Relationship Specialty Start Date End Date Dalia Harmon PA [address] [place] [address], [address] [place] [address] PCP - General 05/10/24 documented as of this encounter
--- OUTSIDE RECORDS SUMMARY | 2024-07-30 10:48 | XMS_ITS | Encounter Summary ---
Author Organization [facility] Address [address] [place] [address] Care Team Providers Care Shaper And Presser Name Role Phone Dalia Harmon Primary Care Provider [phone] Encounter Details Date Type Department Care Team (Late st Contact Info) Description 05/28/2024 Lab Requisition [facility] - Main Lab [address] [facility] [place] [phone] Gerry Barksdale [address] [facility] [address] [place] [address] Sepsis, unspecified organism (CMS/HCC V24, [...] 9:10 AM EDT Office Visit Gastroenterology - [place] [address] [place] [address] Han Sloan DO [address] [place] [address] documented as of this encounter Procedures Procedure [...] LAB CHEMISTRY METHOD 05/31/2024 10:57 AM [facility] Potassium 3.9 3.5 - 5.5 mmol/L LAB CHEMISTRY METHOD 05/31/2024 10:57 AM [facility] Chloride 101 96 - 110 mmol/L LAB CHEMISTRY METHOD 05/31/2024 10:57 AM [facility] CO2 29 21 - 32 mmol/L LAB CHEMISTRY METHOD 05/31/2024 10:57 AM [facility] Anion Gap 5 3 - 11 LAB CHEMISTRY METHOD 05/31/2024 10:57 AM [facility] Glucose 116(H) 70 - 100 mg/dL LAB CHEMISTRY METHOD 05/31/2024 10:57 AM [facility] BUN 12 5 - 25 mg/dL LAB CHEMISTRY METHOD 05/31/2024 10:57 AM [facility] Creatinine 0.47(L) 0.70 - 1.30 mg/dL LAB CHEMISTRY METHOD 05/31/2024 10:57 AM [facility] eGFR 115 >=60 mL/min/1. 73m2 LAB CHEMISTRY METHOD 05/31/2024 10:57 AM EST [facility] Comment:Calculation based on the??Chronic Kidney Disease Epidemiology Collaboration (CKD-EPI) equation refit??without adjustment for race. BUN/Creatinine Ratio 25.5 LAB CHEMISTRY METHOD 05/31/2024 10:57 AM [facility] Calcium 8.2(L) 8.5 - 10.5 mg/dL LAB CHEMISTRY METHOD 05/31/2024 10:57 AM [facility] Blood Venous blood specimen / Unknown Venipuncture / Unknown 05/31/2024 8:09 AM EST 05/31/2024 9:54 AM EST us Gerry Barksdale LAB BLOOD ORDERABLES Final Resul t [facility] [address] [place] [address], * (ABNORMAL) Complete blood count (05/31/2024 8:09 AM EST) WBC 5.3 4.8 - 10.8 K/mcL LAB HEMETOLOGY METHOD 05/31/2024 10:28 AM [facility] RBC 3.50(L) 4.50 - 5.50 M/mcL LAB HEMETOLOGY METHOD 05/31/2024 10:28 AM [facility] Hemoglobin 11.8(L) 13.5 - 17.5 g/dL LAB HEMETOLOGY METHOD 05/31/2024 10:28 AM [facility] Hematocrit 36.4(L) 42.0 - 54.0 % LAB HEMETOLOGY METHOD 05/31/2024 10:28 AM [facility] MCV 105.5(H) 79.0 - 98.0 FL LAB HEMETOLOGY METHOD 05/31/2024 10:28 AM [facility] MCH 34.2(H) 27.0 - 32.0 pcg LAB HEMETOLOGY METHOD 05/31/2024 10:28 AM EST [facility] MCHC 32.4 32.0 - 37.0 g/dL LAB HEMETOLOGY METHOD 05/31/2024 10:28 AM [facility] RDW 17.1(H) 11.0 - 15.0 % LAB HEMETOLOGY METHOD 05/31/2024 10:28 AM EST [facility] Platelets 149 130 - 400 K/mcL LAB HEMETOLOGY METHOD 05/31/2024 10:28 AM EST [facility] MPV 10.5 7.0 - 11.0 FL LAB HEMETOLOGY METHOD 05/31/2024 10:28 AM [facility] NRBC 0.0 <1.0 % LAB HEMETOLOGY METHOD 05/31/2024 10:28 AM [facility] NRBC Absolute 0.00 <0.10 K/mcL LAB HEMETOLOGY METHOD 05/31/2024 10:28 AM [facility] Blood Venous blood specimen / Unknown Venipuncture / Unknown 05/31/2024 8:09 AM EST 05/31/2024 9:53 AM EST us Gerry Barksdale LAB BLOOD ORDERABLES Final Resul t [facility] [address] [place] [address], documented in this encounter Visit Diagnoses Diagnosis Sepsis, unspecified organism (CMS/HCC V24, CMS/HCC V28) documented in this encounter Care Teams Shaper And Presser Relationship Specialty Start Date End Date Dalia Harmon PA [address] [place] [address], [address] [place] [address] PCP - General 05/10/24 documented as of this encounter
--- OUTSIDE RECORDS SUMMARY | 2024-07-30 10:48 | XMS_ITS | Encounter Summary ---
Author Organization [facility] Address [address] [place] [address] Care Team Providers Care Subsea Engineer Name Role Phone Dalia Harmon Primary Care Provider [phone] Encounter Details Date Type Department Care Team (Late st Contact Info) Description 05/26/2024 Lab Requisition [facility] - Main Lab 299 [facility] [place] [phone] Gerry Barksdale [address] [facility] [address] [place] [address] Weakness; Urinary tract infection, site [...] 9:10 AM EDT Office Visit Gastroenterology - [place] [address] [place] [address]Han [address] [place] [address] documented as of this encounter Procedures Procedure [...] LAB CHEMISTRY METHOD 05/26/2024 1:39 PM EST [facility] Blood Venous blood specimen / Unknown Venipuncture / Unknown 05/26/2024 6:59 AM EST 05/26/2024 10:29 AM EST us Gerry Barksdale LAB BLOOD ORDERABLES Final Resul t [facility] [address] [place] [address], * Folate (05/26/2024 6:59 AM EST) Pathologist [facility] Folate 4.3 2.8 - 17.0 ng/ml LAB CHEMISTRY METHOD 05/26/2024 1:39 PM EST [facility] Blood Venous blood specimen / Unknown Venipuncture / Unknown 05/26/2024 6:59 AM EST 05/26/2024 10:29 AM EST [facility] LAB BLOOD ORDERABLES Final Resul t Performing Organization Address [facility] Co de Phone Number [facility] [address] [place] [address], [place] [phone] * (ABNORMAL) Thyroid stimulating hormone (05/26/2024 6:59 AM EST) TSH 5.20(H) 0.40 - 4.00 mcIU/mL LAB CHEMISTRY METHOD 05/26/2024 1:24 PM [facility] Blood Venous blood specimen / Unknown Venipuncture / Unknown 05/26/2024 6:59 AM EST 05/26/2024 10:29 AM EST [facility] LAB BLOOD ORDERABLES Final Resul t Performing Organization Address [facility] de Phone Number [facility] [address] [place] [address], [place] [phone] * (ABNORMAL) Comprehensive metabolic panel (05/26/2024 6:59 AM EST) Sodium 133 133 - 145 mmol/L LAB CHEMISTRY METHOD 05/26/2024 1:16 PM [facility] Potassium 3.6 3.5 - 5.5 mmol/L LAB CHEMISTRY METHOD 05/26/2024 1:16 PM [facility] Chloride 95(L) 96 - 110 mmol/L LAB CHEMISTRY METHOD 05/26/2024 1:16 PM [facility] CO2 31 21 - 32 mmol/L LAB CHEMISTRY METHOD 05/26/2024 1:16 PM [facility] Anion Gap 7 3 - 11 LAB CHEMISTRY METHOD 05/26/2024 1:16 PM [facility] Glucose 116(H) 70 - 100 mg/dL LAB CHEMISTRY METHOD 05/26/2024 1:16 PM [facility] BUN 15 5 - 25 mg/dL LAB CHEMISTRY METHOD 05/26/2024 1:16 PM [facility] Creatinine 0.52(L) 0.70 - 1.30 mg/dL LAB CHEMISTRY METHOD 05/26/2024 1:16 PM [facility] eGFR 111 >=60 mL/min/1. 73m2 LAB CHEMISTRY METHOD 05/26/2024 1:16 PM [facility] Comment:Calculation based on the??Chronic Kidney Disease Epidemiology Collaboration (CKD-EPI) equation refit??without adjustment for race. BUN/Creatinine Ratio 28.8 LAB CHEMISTRY METHOD 05/26/2024 1:16 PM [facility] Calcium 8.2(L) 8.5 - 10.5 mg/dL LAB CHEMISTRY METHOD 05/26/2024 1:16 PM [facility] AST (SGOT) 27 10 - 42 unit/L LAB CHEMISTRY METHOD 05/26/2024 1:16 PM [facility] ALT (SGPT) 20 10 - 60 unit/L LAB CHEMISTRY METHOD 05/26/2024 1:16 PM [facility] Alkaline Phosphatase 139(H) 42 - 121 unit/L LAB CHEMISTRY METHOD 05/26/2024 1:16 PM [facility] Total Protein 6.0 6.0 - 8.0 g/dL LAB CHEMISTRY METHOD 05/26/2024 1:16 PM [facility] Albumin 2.3(L) 3.2 - 5.0 g/dL LAB CHEMISTRY METHOD 05/26/2024 1:16 PM [facility] Total Bilirubin 3.2(H) 0.0 - 1.4 mg/dL LAB CHEMISTRY METHOD 05/26/2024 1:16 PM [facility] Blood Venous blood specimen / Unknown Venipuncture / Unknown 05/26/2024 6:59 AM EST 05/26/2024 10:29 AM EST Gerry Barksdale LAB BLOOD ORDERABLES Final Resul t [facility] [address] [place] [address], * (ABNORMAL) Complete blood count (05/26/2024 6:59 AM EST) [facility] WBC 7.6 4.8 - 10.8 K/mcL LAB HEMETOLOGY METHOD 05/26/2024 11:18 AM [facility] RBC 3.50(L) 4.50 - 5.50 M/mcL LAB HEMETOLOGY METHOD 05/26/2024 11:18 AM [facility] Hemoglobin 12.2(L) 13.5 - 17.5 g/dL LAB HEMETOLOGY METHOD 05/26/2024 11:18 AM [facility] Hematocrit 35.5(L) 42.0 - 54.0 % LAB HEMETOLOGY METHOD 05/26/2024 11:18 AM [facility] MCV 100.6(H) 79.0 - 98.0 FL LAB HEMETOLOGY METHOD 05/26/2024 11:18 AM [facility] MCH 34.6(H) 27.0 - 32.0 pcg LAB HEMETOLOGY METHOD 05/26/2024 11:18 AM [facility] MCHC 34.4 32.0 - 37.0 g/dL LAB HEMETOLOGY METHOD 05/26/2024 11:18 AM [facility] RDW 15.9(H) 11.0 - 15.0 % LAB HEMETOLOGY METHOD 05/26/2024 11:18 AM [facility] Platelets 139 130 - 400 K/mcL LAB HEMETOLOGY METHOD 05/26/2024 11:18 AM EST [facility] MPV 10.8 7.0 - 11.0 FL LAB HEMETOLOGY METHOD 05/26/2024 11:18 AM EST [facility] NRBC 0.0 <1.0 % LAB HEMETOLOGY METHOD 05/26/2024 11:18 AM EST [facility] NRBC Absolute 0.00 <0.10 K/mcL LAB HEMETOLOGY METHOD 05/26/2024 11:18 AM EST [facility] Blood Venous blood specimen / Unknown Venipuncture / Unknown 05/26/2024 6:59 AM EST 05/26/2024 10:29 AM EST Gerry Barksdale LAB BLOOD ORDERABLES Final Resul t [facility] [address] [place] [address], documented in this encounter Visit Diagnoses Diagnosis Weakness Other malaise and fatigue Urinary tract infection, site not specified documented in this encounter Care Teams Subsea Engineer Relationship Specialty Start Date End Date Dalia Harmon PA [address] [place] [address], [address] [place] [address] PCP - General 05/10/24 documented as of this encounter
--- OUTSIDE RECORDS SUMMARY | 2024-07-30 10:48 | XMS_ITS | Encounter Summary ---
Author Organization [facility] Address [address] [place] [address] Care Team Providers Care Follow Up Manager Name Role Phone Dalia Harmon Primary Care Provider [phone] Encounter Details Date Type Department Care Team (Late st Contact Info) Description 03/12/2024 Lab Requisition [facility] - Main Lab 299 [facility] [place] [phone] Gerry Barksdale [address] [place] [address] [address] [place] [address] Essential (primary) hypertension Social History [...] 9:10 AM EDT Office Visit Gastroenterology - [place] [address] [place] [address] Han Sloan DO 175 [facility] [address] [place] [address] documented as of this encounter Visit Diagnoses Diagnosis Essential (primary) hypertension Unspecified essential hypertension documented in this encounter Care Teams Follow Up Manager Relationship Specialty Start Date End Date Dalia Harmon PA [address] [place] [address], [address] [place] [address] PCP - General 05/10/24 documented as of this encounter
--- OUTSIDE RECORDS SUMMARY | 2024-07-30 10:48 | XMS_ITS | Encounter Summary ---
Author Organization [facility] Address [address] [place] [address] Care Team Providers Care Game Master Name Role Phone Dalia Harmon Primary Care Provider [phone] Encounter Details Date Type Department Care Team (Late Contact Info) Description 03/05/2024 Lab Requisition [facility] - Main Lab [address] [facility] [place] [address] Gerry Barksdale MD [address] [facility] 1 [place] [address] Essential (primary) hypertension Social History Tobacco Use [...] 9:10 AM EDT Office Visit Gastroenterology - [place] [address] [facility] [address] [place] [address] Han Sloan DO [address] [place] [address] documented as of this encounter Procedures Procedure [...] 73m2 LAB CHEMISTRY METHOD 03/08/2024 1:23 PM [facility] Comment:Calculation based on the??Chronic Kidney Disease Epidemiology Collaboration (CKD-EPI) equation refit??without adjustment for race. BUN/Creatinine Ratio .4 LAB CHEMISTRY METHOD 03/08/2024 1:23 PM [facility] Calcium 8.7 8.5 - 10.5 mg/dL LAB CHEMISTRY METHOD 03/08/2024 1:23 PM [facility] Blood Venous blood specimen / Unknown Venipuncture / Unknown 03/08/2024 9:48 AM EST 03/08/2024 11:22 AM EST us Gerry Barksdale MD LAB BLOOD ORDERABLES Final Re sult [facility] [address] [place] [address], * (ABNORMAL) Complete blood count (03/08/2024 9:48 [...] pcg LAB HEMETOLOGY METHOD 03/08/2024 12:55 PM [facility] MCHC 32.9 32.0 - 37.0 g/dL LAB HEMETOLOGY METHOD 03/08/2024 12:55 PM EST [facility] RDW 14.7 11.0 - 15.0 % LAB HEMETOLOGY METHOD 03/08/2024 12:55 PM EST [facility] Platelets 102(L) 130 - 400 K/mcL LAB HEMETOLOGY METHOD 03/08/2024 12:55 PM [facility] MPV 11.3(H) 7.0 - 11.0 FL LAB HEMETOLOGY METHOD 03/08/2024 12:55 PM EST [facility] NRBC 0.0 <1.0 % LAB HEMETOLOGY METHOD 03/08/2024 12:55 PM EST [facility] NRBC Absolute 0.00 <0.10 K/mcL LAB HEMETOLOGY METHOD 03/08/2024 12:55 PM [facility] Blood Venous blood specimen / Unknown Venipuncture / Unknown 03/08/2024 9:48 AM EST 03/08/2024 11:22 AM EST us Gerry Barksdale MD LAB BLOOD ORDERABLES Final Re sult [facility] [address] [place] [address], documented in this encounter Visit Diagnoses Diagnosis Essential (primary) hypertension Unspecified essential hypertension documented in this encounter Care Teams Game Master Relationship Specialty Start Date End Date Dalia Harmon PA [address] [facility], [address] [place] [address] PCP - General 05/10/24 documented as of this encounter
--- OUTSIDE RECORDS SUMMARY | 2024-07-30 10:48 | XMS_ITS | Encounter Summary ---
Author Organization [facility] Address [address] [place] [address] Care Team Providers Care Frothing Machine Operator Name Role Phone Dalia Harmon Primary Care Provider [phone] Encounter Details Date Type Department Care Team (Late st Contact Info) Description 03/04/2024 Lab Requisition [facility] - Main Lab [address] [facility] [place] [address] Gerry Barksdale MD [address] [address] Vitamin D deficiency, unspecified; Type 2 diabetes [...] 9:10 AM EDT Office Visit Gastroenterology - [place] [address] [place] [id number] Han lSoan DO [address] [place] [address] documented as of this encounter Procedures Procedure [...] LAB CHEMISTRY METHOD 03/04/2024 12:40 PM EST [facility] Blood Venous blood specimen / Unknown Venipuncture / Unknown 03/04/2024 9:21 AM EST 03/04/2024 11:40 AM EST us Gerry Barksdale MD LAB BLOOD ORDERABLES Final Re sult Performing Organization Address [facility]/ZIP Co de Phone Number [facility] [address] [place] [address], [place] [phone] * Hemoglobin A1c (03/04/2024 9:21 AM EST) Hemoglobin A1C 4.7 <6.5 % LAB CHEMISTRY METHOD 03/04/2024 2:46 PM EST [facility] Mean Bld Glu Estim. 88 mg/dL LAB CHEMISTRY METHOD 03/04/2024 2:46 PM EST [facility] Blood Venous blood specimen / Unknown Venipuncture / Unknown 03/04/2024 9:21 AM EST 03/04/2024 11:40 AM EST us Gerry Barksdale MD LAB BLOOD ORDERABLES Final Re sult Performing Organization Address [facility] de Phone Number [facility] [address] [place] [address], [place] [phone] * (ABNORMAL) Vitamin B12 (03/04/2024 9:21 AM EST) Pathologist [facility] Vitamin B-12 923(H) 250 - 900 pcg/mL LAB CHEMISTRY METHOD 03/04/2024 1:03 PM EST [facility] Blood Venous blood specimen / Unknown Venipuncture / Unknown 03/04/2024 9:21 AM EST 03/04/2024 11:40 AM EST us Gerry Barksdale MD LAB BLOOD ORDERABLES Final Re sult Performing Organization Address City/[facility]/ZIP Co de Phone Number [facility] [address] [place] [address], [place] [phone] * Folate (03/04/2024 9:21 AM EST) [facility] Folate 11.0 2.8 - 17.0 ng/ml LAB CHEMISTRY METHOD 03/04/2024 1:03 PM [facility] Blood Venous blood specimen / Unknown Venipuncture / Unknown 03/04/2024 9:21 AM EST 03/04/2024 11:40 AM EST us Gerry Barksdale MD LAB BLOOD ORDERABLES Final Re sult Performing Organization Address City/[facility]/ZIP Co de Phone Number [facility] [address] [place] [address], [place] [phone] * Thyroid stimulating hormone (03/04/2024 9:21 AM EST) [facility] TSH 3.12 0.40 - 4.00 mcIU/mL LAB CHEMISTRY METHOD 03/04/2024 12:40 PM [facility] Blood Venous blood specimen / Unknown Venipuncture / Unknown 03/04/2024 9:21 AM EST 03/04/2024 11:40 AM EST us Gerry Barksdale MD LAB BLOOD ORDERABLES Final Re sult [facility] [address] [place] [address], [place] [phone] * (ABNORMAL) Comprehensive metabolic panel (03/04/2024 9:21 AM EST) [facility] Sodium 137 133 - 145 mmol/L LAB CHEMISTRY METHOD 03/04/2024 1:03 PM [facility] Potassium 4.2 3.5 - 5.5 mmol/L LAB CHEMISTRY METHOD 03/04/2024 1:03 PM [facility] Chloride 100 96 - 110 mmol/L LAB CHEMISTRY METHOD 03/04/2024 1:03 PM [facility] CO2 29 21 - 32 mmol/L LAB CHEMISTRY METHOD 03/04/2024 1:03 PM [facility] Anion Gap 8 3 - 11 LAB CHEMISTRY METHOD 03/04/2024 1:03 PM [facility] Glucose 217(H) 70 - 100 mg/dL LAB CHEMISTRY METHOD 03/04/2024 1:03 PM [facility] BUN 18 5 - 25 mg/dL LAB CHEMISTRY METHOD 03/04/2024 1:03 PM [facility] Creatinine 0.64(L) 0.70 - 1.30 mg/dL LAB CHEMISTRY METHOD 03/04/2024 1:03 PM [facility] eGFR 104 >=60 mL/min/1. 73m2 LAB CHEMISTRY METHOD 03/04/2024 1:03 PM [facility] Comment:Calculation based on the??Chronic Kidney Disease Epidemiology Collaboration (CKD-EPI) equation refit??without adjustment for race. BUN/Creatinine Ratio 28.1 LAB CHEMISTRY METHOD 03/04/2024 1:03 PM [facility] Calcium 8.5 8.5 - 10.5 mg/dL LAB CHEMISTRY METHOD 03/04/2024 1:03 PM [facility] AST (SGOT) 38 10 - 42 unit/L LAB CHEMISTRY METHOD 03/04/2024 1:03 PM [facility] ALT (SGPT) 25 10 - 60 unit/L LAB CHEMISTRY METHOD 03/04/2024 1:03 PM [facility] Alkaline Phosphatase 136(H) 42 - 121 unit/L LAB CHEMISTRY METHOD 03/04/2024 1:03 PM [facility] Total Protein 5.7(L) 6.0 - 8.0 g/dL LAB CHEMISTRY METHOD 03/04/2024 1:03 PM [facility] Albumin 2.6(L) 3.2 - 5.0 g/dL LAB CHEMISTRY METHOD 03/04/2024 1:03 PM [facility] Total Bilirubin 2.8(H) 0.0 - 1.4 mg/dL LAB CHEMISTRY METHOD 03/04/2024 1:03 PM [facility] Blood Venous blood specimen / Unknown Venipuncture / Unknown 03/04/2024 9:21 AM EST 03/04/2024 11:40 AM EST Gerry Barksdale MD LAB BLOOD ORDERABLES Final Re sult [facility] [address] [place] [address], * (ABNORMAL) Complete blood count (03/04/2024 9:21 AM EST) WBC 4.5(L) 4.8 - 10.8 K/mcL LAB HEMETOLOGY METHOD 03/04/2024 11:58 AM [facility] RBC 3.90(L) 4.50 - 5.50 M/mcL LAB HEMETOLOGY METHOD 03/04/2024 11:58 AM [facility] Hemoglobin 13.6 13.5 - 17.5 g/dL LAB HEMETOLOGY METHOD 03/04/2024 11:58 AM [facility] Hematocrit 40.7(L) 42.0 - 54.0 % LAB HEMETOLOGY METHOD 03/04/2024 11:58 AM [facility] MCV 104.4(H) 79.0 - 98.0 FL LAB HEMETOLOGY METHOD 03/04/2024 11:58 AM [facility] MCH 34.9(H) 27.0 - 32.0 pcg LAB HEMETOLOGY METHOD 03/04/2024 11:58 AM [facility] MCHC 33.4 32.0 - 37.0 g/dL LAB HEMETOLOGY METHOD 03/04/2024 11:58 AM EST [facility] RDW 14.3 11.0 - 15.0 % LAB HEMETOLOGY METHOD 03/04/2024 11:58 AM [facility] Platelets 101(L) 130 - 400 K/mcL LAB HEMETOLOGY METHOD 03/04/2024 11:58 AM [facility] MPV 11.0 7.0 - 11.0 FL LAB HEMETOLOGY METHOD 03/04/2024 11:58 AM [facility] NRBC 0.0 <1.0 % LAB HEMETOLOGY METHOD 03/04/2024 11:58 AM [facility] NRBC Absolute 0.00 <0.10 K/mcL LAB HEMETOLOGY METHOD 03/04/2024 11:58 AM [facility] Blood Venous blood specimen / Unknown Venipuncture / Unknown 03/04/2024 9:21 AM EST 03/04/2024 11:40 AM EST us Gerry Barksdale MD LAB BLOOD ORDERABLES Final Re sult [facility] [address] [place] [address], documented in this encounter Visit Diagnoses Diagnosis Vitamin D deficiency, unspecified Type 2 diabetes mellitus without complications (CMS/HCC V24, CMS/HCC V28) Essential (primary) hypertension Unspecified essential hypertension documented in this encounter Care Teams Frothing Machine Operator Relationship Specialty Start Date End Date Dalia Harmon PA [address], [address] [place] [address] PCP - General 05/10/24 documented as of this encounter
== END 2024-07-30 11:06 | disposition home or self-care (01) ==
LOC: HO.HMCH 10:07
DX: M87.052 Idiopathic aseptic necrosis of left femur (principal); E66.01 Morbid (severe) obesity due to excess calories; E11.9 Type 2 diabetes mellitus without complications; Z68.42 Body mass index [BMI] 45.0-49.9, adult; K74.60 Unspecified cirrhosis of liver; E83.119 Hemochromatosis, unspecified; R18.8 Other ascites; L60.0 Ingrowing nail; R33.9 Retention of urine, unspecified

== ENCOUNTER → 2024-07-30 10:06 | Outpatient (BNVA) | payer OTHER, SELFPAY | DX: E83.119 Hemochromatosis, unspecified (principal); M87.052 Idiopathic aseptic necrosis of left femur; E66.01 Morbid (severe) obesity due to excess calories; Z68.42 Body mass index [BMI] 45.0-49.9, adult; R18.8 Other ascites; K74.60 Unspecified cirrhosis of liver; L60.0 Ingrowing nail; R33.9 Retention of urine, unspecified; Z71.3 Dietary counseling and surveillance | CPT/HCPCS: 83036; 99212 ==

== ENCOUNTER 2024-08-20 11:39 | Outpatient (AMB) | payer OTHER, SELFPAY ==
--- NOTE | 2024-08-20 11:41 | MHC.OFFVIS ---
Intake Visit Reasons: 5M follow up Intake Note: Patient is present for a 5 month follow up Any Urology Medications: None Antibiotic Allergy: None Blood Thinner: Eliquis C2 Tactical Analysis Technician Required: No Accompanied by: Handicapped Dependent Allergies nystatin Adverse Reaction (Mild, Verified 09/10/24 10:09) swelling atorvastatin Adverse Reaction (Verified 09/10/24 10:09) Diarrhea HPI Comments Details: Truong is a pleasant male. He is a patient of . He is seen for the following urologic conditions - lower urinary tract symptoms Following voiding trial Successful On prostate medications Six-month follow-up Lower urinary tract symptoms Prior episode of urinary retention 04/13 History of chronic opioid therapy for pain management Placed on Flomax with finasteride Has been on strict fluid restriction 1600 cc per day PFSH Medical History Chronic pain syndrome Portal hypertensive gastropathy Depression Anxiety Iron overload syndrome Internal hemorrhoids Diverticulosis Hx of esophageal varices longterm prescription opiate use No natural teeth Back pain Back pain Arthritis Fatty liver History of cirrhosis of liver Avascular necrosis Hemochromatosis COPD (chronic obstructive pulmonary disease) NICOLE on CPAP Surgical History H/O transjugular intrahepatic portosystemic shunt Hx of esophagogastroduodenoscopy Hx of colonoscopy [place] teeth extracted History of surgery History of back surgery (~1997) H/O discectomy (~1997) Family History Maternal Grandfather Heart attack Brother Heart attack Social History Household Members: None Housing: Apartment Are you a primary child care to a significant other at home: No Do you presently have visiting nurse or other home services: Yes ([employer] 37.5 hours M-F, 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) 75 years or older and lives alone: No Patient Tobacco Use Status: Former Tobacco user Tobacco use type: Cigarette e-Cigarette/Vaping Use: Never Used Second Hand Smoke Exposure: Yes Substance Use Type: Marijuana service: No Current occupational status: unemployed Gender identity: Male Cognitive needs: No Hearing needs: No Vision needs: No Review of Systems Const Denies chills and Denies fever(s) Card Reports no additional complaints and Denies syncope Resp Denies cough GI Denies abdominal pain and Denies heartburn Reports as per HPI and Denies change in libido Neuro Denies syncope Psych Denies change in libido Endo Denies change in libido Physical Exam Const General: cooperative, healthy appearing, comfortable and no acute distress Orientation/consciousness: patient oriented x3 HEENT Face and sinus: Yes normal facial exam Mouth: moist mucous membranes Neck Neck: Yes normal visual inspection, Yes full ROM and Yes trachea midline Chest Chest palpation & inspection: normal inspection of the chest Resp Effort & Inspection: normal respiratory effort, able to speak in complete sentences and no respiratory distress GI Inspection: Yes normal to inspection Back/Spine/Pelvis Cervical Spine: normal cervical lordosis Thoracic/Lumbar Spine: thoracic and lumbar spine normal to inspection Skin General skin exam: no rashes or lesions noted Neuro General: patient oriented x3, gait normal, tone normal and moves all extremities Extrem General: Yes normal to inspection and Yes capillary refill normal Assessment & Plan Assessment & Plan (1) Urinary retention: Code(s): R33.9 - Retention of urine, unspecified Category: Medical Plan Six-month follow-up PVR office Patient Instructions: This note is constructed using voice recognition software. While every effort has been made to ensure accuracy staking engineer errors may have been included. Imaging studies, laboratory and physical exam results were discussed and reviewed in detail. No major barriers to patient understanding were identified. An opportunity to ask questions regarding the treatment plan was provided. All questions were answered. The patient expressed understanding and agreement with the above treatment plan. The patient is aware they should contact our office by phone for worsening of their current condition or the appearance of new urologic symptoms. Compliance is encouraged with any medications and followup testing that is ordered. It is a privilege to participate in the urologic care of your patient. If you have any questions or concerns regarding treatment for the above conditions, or other urologic issues, please do not hesitate to contact me. The office telephone contact is [phone]. Sincerely, Dr Rl Fischer MD, [facility] - Urology Compassionate Specialist Care for the Genitourinary System Coding Level of Care Code Est Pt Level 3 (76924) Diagnoses Urinary retention R33.9
--- OUTSIDE RECORDS SUMMARY | 2024-08-20 12:36 | XMS_ITS | Clinical Summary ---
Author Organization [facility] Address [address] [place] [address] Phone Care Team Providers Care Certified Lactation Educator Name Role Phone Dalia Harmon Primary Care Provider [phone] Allergies Active Allergy Reactions Criticality Noted Date Comments Codeine 12/25/2023 Other Reaction(s): Unknown body region Nystatin 04/07/2024 Cream and Powder Semaglutide Unknown 05/19/2024 Medications naloxone (NARCAN) 4 mg/0.1 mL nasal spray Administer 1 each (4 mg total) into affected nostril(s). 3 Active cholecalciferol (VITAMIN D-3) 50 mcg (2,000 unit) tablet 1 tablet (2,000 Units total). 2 Active albuterol 2.5 mg/0.5 mL solution for nebulization nebulizer solution Take 0.5 mL (2.5 mg total) by nebulization every 6 (six) hours if needed for shortness of breath. 4 Active zolpidem (AMBIEN) 10 mg tablet Take 1 tablet (10 mg total) by mouth at bedtime as needed. for insomnia Active rosuvastatin (CRESTOR) 5 mg tablet Take 1 tablet (5 mg total) by mouth 1 (one) time each day. 4 Active aspirin 81 mg EC tablet Take 1 tablet (81 mg total) by mouth 1 (one) time each day. Active tamsulosin (FLOMAX) 0.4 mg 24 hr capsule Take 1 capsule (0.4 mg total) by mouth 1 (one) time each day. Active oxyBUTYnin XL (DITROPAN-XL) 5 mg 24 hr tablet Take 1 tablet (5 mg total) by mouth 1 (one) time each day. 5 Active apixaban (ELIQUIS) 5 mg tablet Take [...] 1 (one) time each day. 30 each 5 Active furosemide (LASIX) 20 mg tablet Take 2 tablets in the morning at 8 AM and 1 tablet in afternoon at 3 PM 90 each 1 5 Active Active Problems Problem Noted Date Diagnosed Date Personal history of portal hypertension 07/07/19 25 Pseudomonal bacteremia 06/13/2024 Severe sepsis ([facility] V24, [facility] V28) 025 Candidal intertrigo 03/01/2024 Anasarca 02/26/2024 Lymphedema 08/01/2022 Thrombocytopenia ([facility] V24) 08/01/2022 Overview (12/25/2023): Related to iron overload syndrome per prior records COPD (chronic obstructive pu lmonary disease) ([facility] V24, [facility] V28) 08/01/2022 Avascular necrosis of bone o f hip, left ([facility] V24, [facility] V28) 06/25/2022 Overview (12/25/2023): Was seen by [facility] who recommended weight loss prior to elective hip arthroplasty of left hip Was seen by [facility] who concurred with this Insomnia 04/13/2018 Chronic allergic conjunctivitis 04/13/2018 Anxiety 04/13/2018 Esophageal varices ([facility] V24, [facility] V28) Hemochromatosis 12/03/2017 Overview (12/25/2023): 2 heterozygous gene mutations were found and recommended [id number] therapeutic phlebotomy. Follows with GI. Liver cirrhosis secondary to CASTANEDA (nonalcoholic steatohepatitis) ([facility]/HCC V24, CMS/HCC V28) 12/03/2017 Erosive gastritis 10/13/2017 Obstructive sleep apnea 05/21/2016 Overview (12/25/2023): On CPAP Hypertension 12/14/2014 Hyperlipidemia 12/12/2014 Diabetes mellitus type 2 wit h neurological manifestations (CMS/HCC V24, CMS/HCC V28) 12/12/2014 Depression with anxiety 12/12/2014 Benign colonic polyp 12/12/2014 Vitamin D deficiency 07/27/2012 Internal hemorrhoids 07/27/2010 Diverticulosis 05/29/2010 Encounters Date Type Department Care Team Description 07/26/2024 Telephone Gastroenterology [facility] 175 [facility] [address] [phone] Han Sloan DO provider call back [facility] [address] [phone] Han Sloan DO 07/06/2024 3:56 PM EDT - 07/07/2024 12:46 PM EDT Hospital Encounter [facility] Intermediate Care Unit [address] [place] [phone] Rosaura Iglesias MD Kela, Kashyap Devendrabhai, MD Abrokwah, Foster Myles G, CRNA Freeman, Katharine O, MD Personal history of portal hypertension (Primary Dx); Esophageal varices without bleeding, unspecified esophageal varices type (CMS/HCC V24, CMS/HCC V28); Liver cirrhosis secondary to CASTANEDA (nonalcoholic steatohepatitis) ([facility]/HCC V24, CMS/HCC V28) Discharge Disposition: Home-Health Care [facility] 07/06/2024 2:08 PM EDT Anesthesia Event [facility] Interventional Radiology [address] [place] [phone] Paul Alfaro DO 07/05/2024 Telephone Gastroenterology [facility] [address] [phone] Han Sloan DO 06/29/20[facility] 175 [facility] [address] [phone] Han Sloan DO Appointment (Upcoming Echo) 06/24/2024 11:20 AM EST [facility] [address] [phone] Han Sloan DO Cirrhosis of liver with ascites, unspecified hepatic cirrhosis type (CMS/HCC V24, CMS/HCC V28) (Primary Dx); Other ascites; Deep vein thrombosis of portal vein 06/18/2024 Lab Requisition [facility] - Main Lab [address] [facility] [place] [phone] Gerry Barksdale Sepsis, unspecified organism ([facility]/HCC V24, [facility] V28) 06/14/2024 [facility] [address] [phone] Han Sloan DO provider call back 06/13/2024 12:02 PM EST - 06/16/2024 2:30 PM EST Hospital Encounter [facility] Medical Surgical Unit [address] [place] [phone] Barak Benjamin MD Flores, Carlos M, MD Kela, Kashyap Devendrabhai, MD Mohani, Priya, MD Bacteremia (Primary Dx); Cuello catheter in place; Urinary tract infection associated with indwelling urethral catheter, initial encounter ([facility] V24); Hx of ascites; Anasarca Discharge Disposition: Home-Health Care [facility] [place] [facility] 06/11/2024 10:01 PM EST - 06/12/2024 12:27 PM EST Emergency [facility] Emergency [address] [place] [phone] Barak Benjamin MD Gross hematuria (Primary Dx); Tachycardia; Abnormal chest CT Discharge Disposition: Home or Self Care 06/04/2024 Lab Requisition [facility] Lab [address] [place] [phone] Gerry Barksdale Sepsis, unspecified organism ([facility] V24, [facility] V28) 06/03/2024 Telephone Gastroenterology [facility] 175 [facility] 175 [facility] [address] [place] [phone] Han Sloan DO TESTING 05/28/2024 Lab Requisition [facility] [address] [place] [phone] Gerry Barksdale Sepsis, unspecified organism ([facility] V24, [facility] V28) 05/26/2024 Lab Requisition [facility] [address] [place] [phone] Gerry Barksdale Weakness; Urinary tract infection, site not specified 05/25/2024 Telephone Gastroenterology [facility] 175 [facility] [address] [phone] Han Sloan DO 05/24/2024 [facility] [address] [phone] Han Sloan DO provider call back 05/19/2024 3:40 PM EST - 05/25/2024 4:38 PM EST Hospital Encounter [facility] Medical Surgical Unit [address] [place] [phone] Emily Singh DO Bukalo, Nermina, MD Nasser, Nada S, MD Kela, Kashyap Devendrabhai, MD Bilateral leg edema (Primary Dx); Urinary tract infection without hematuria, site unspecified; Hepatic cirrhosis, unspecified hepatic cirrhosis type, unspecified whether ascites present ([facility] V24, [facility] V28); Cellulitis of left leg; Severe sepsis ([facility] V24, [facility] V28) Discharge Disposition[facility] Months Surgical History Surgery Date Site/Laterality Comments BACK SURGERY PROCEDURE: HISTORICAL BACK SURGERY; COMMENT: spinal diskectomy, osteophytectomy x4 ESOPHAGOGASTRODUODENOSCOPY PROCEDURE: DE ESOPHAGOGASTRODUODENOSCOPY TRANSORAL DIAGNOSTIC COLONOSCOPY N/A PROCEDURE: HISTORICAL COLONOSCOPY OTHER SURGICAL HISTORY Right PROCEDURE: DE STAB [...] 9:10 AM EDT Office Visit Gastroenterology - [facility] 175 [facility] [address] [phone] Han Sloan DO [address] [address] 09/06/2024 9:15 AM EDT Clinical Support [facility] [address] [place] [phone] Health Maintenance Due Date Last Done Comments [...] 07/06/2024 Diabetes: Annual GFR (Glomerular Filtration Rate) 07/30/2025 07/30/2024, 07/07/2024, 07/06/2024, Additional history exists Hypertension/CHF/CAD Annual BMP Blood Test 07/30/2025 07/30/2024, 07/07/2024, 07/06/2024, Additional history exists Colorectal Cancer Screening: Colonoscopy [...] this topic Medical Devices Implanted Type Area Electric Meter Installer Helper Device Identifier Shelf Expiration Date Model / Serial / Lot Stent Viatorr 8-10mmx8/2cm - [id number] - [id number] Implanted:Qty: 1 on 07/06/2024 by Paul Bonner MD at [facility] Peripheral Vasc Drug Eluting Stents Right: Liver [employer] [id number] 05/20/2026 [id number] / [id number] / Stent Viatorr 8-10mmx8/2cm - [id number] - [id number] Implanted:Qty: 1 on 07/06/2024 by Paul Bonner MD at [facility] Peripheral Vasc Drug Eluting Stents Right: Liver [employer] [id number] 03/29/2027 [id number] 75 / [id number] / Procedures Procedure Name Priority Date/Time Associated Diagnosis Comments BASIC METABOLIC PANEL Routine 07/30/2024 11:49 AM EDT 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 V24, CMS/HCC V28) ACTIVATED PARTIAL THROMBOPLASTIN TIME STAT 07/07/2024 11:15 [...] 06/14/2024 10:01 PM EST NON-GYNECOLOGIC CYTOLOGY Routine 06/14/2024 10:19 AM EST DIFFERENTIAL BODY FLUID Routine 06/14/2024 10:19 AM EST CELL COUNT WITH REFLEX [...] TROUGH Timed 05/23/2024 3: 05 AM EST HEMOGLOBIN A1C Routine 05/21/2024 3:17 AM EST from Last 3 Months or Most Recently Relevant to Health Maintenance Results * (ABNORMAL) Basic metabolic panel (07/30/2024 11:49 AM EDT) Only the most recent of11 resultswithin the time period is included. [facility] Sodium 139 133 - 145 mmol/L LAB CHEMISTRY METHOD 07/30/2024 1:21 PM EDT [facility] Potassium 4.0 3.5 - 5.5 mmol/L LAB CHEMISTRY METHOD 07/30/2024 1:21 PM [facility] Chloride 105 96 - 110 mmol/L LAB CHEMISTRY METHOD 07/30/2024 1:21 PM [facility] CO2 28 21 - 32 mmol/L LAB CHEMISTRY METHOD 07/30/2024 1:21 PM [facility] Anion Gap 6 3 - 11 LAB CHEMISTRY METHOD 07/30/2024 1:21 PM [facility] Glucose 136(H) 70 - 100 mg/dL LAB CHEMISTRY METHOD 07/30/2024 1:21 PM [facility] BUN 10 5 - 25 mg/dL LAB CHEMISTRY METHOD 07/30/2024 1:21 PM [facility] Creatinine 0.57(L) 0.70 - 1.30 mg/dL LAB CHEMISTRY METHOD 07/30/2024 1:21 PM [facility] eGFR 108 >=60 mL/min/1. 73m2 LAB CHEMISTRY METHOD 07/30/2024 1:21 PM [facility] Comment:Calculation based on the??Chronic Kidney Disease Epidemiology Collaboration (CKD-EPI) equation refit??without adjustment for race. BUN/Creatinine Ratio 17.5 LAB CHEMISTRY METHOD 07/30/2024 1:21 PM [facility] Calcium 8.6 8.5 - 10.5 mg/dL LAB CHEMISTRY METHOD 07/30/2024 1:21 PM T [facility] Blood Venous blood specimen / Unknown Venipuncture / Unknown 07/30/2024 11:49 AM EDT 07/30/2024 12:22 PM EDT Dalia RAND LAB BLOOD ORDERABLES Final Re sult [facility] [address] [place] [address], * Activated Partial Thromboplastin Time - STAT (07/07/2024 11:15 AM EDT) [facility] aPTT 35.3 24.1 - 39.3 sec LAB COAGULATION METHOD 07/07/2024 12:17 PM EDT [facility] Blood Venous blood specimen / Unknown Venipuncture / Unknown 07/07/2024 11:15 AM EDT 07/07/2024 11:55 AM EDT us Annie RAND LAB BLOOD ORDERABLES Final Result [facility] [address] [place] [address], * (ABNORMAL) Complete blood count (07/07/2024 6:20 AM EDT) Only the most recent of8 resultswithin the time period is included. [facility] WBC 5.0 4.8 - 10.8 K/mcL LAB HEMETOLOGY METHOD 07/07/2024 7:19 AM [facility] RBC 3.60(L) 4.50 - 5.50 M/mcL LAB HEMETOLOGY METHOD 07/07/2024 7:19 AM [facility] Hemoglobin 12.7(L) 13.5 - 17.5 g/dL LAB HEMETOLOGY METHOD 07/07/2024 7:19 AM [facility] Hematocrit 38.0(L) 42.0 - 54.0 % LAB HEMETOLOGY METHOD 07/07/2024 7:19 AM [facility] MCV 104.4(H) 79.0 - 98.0 FL LAB HEMETOLOGY METHOD 07/07/2024 7:19 AM [facility] MCH 34.9(H) 27.0 - 32.0 pcg LAB HEMETOLOGY METHOD 07/07/2024 7:19 AM EDT [facility] MCHC 33.4 32.0 - 37.0 g/dL LAB HEMETOLOGY METHOD 07/07/2024 7:19 AM EDT [facility] RDW 15.3(H) 11.0 - 15.0 % LAB HEMETOLOGY METHOD 07/07/2024 7:19 AM [facility] Platelets 98(L) 130 - 400 K/mcL LAB HEMETOLOGY METHOD 07/07/2024 7:19 AM EDT [facility] Comment:previously verified by slide MPV 10.6 7.0 - 11.0 FL LAB HEMETOLOGY METHOD 07/07/2024 7:[facility] NRBC 0.0 <1.0 % LAB HEMETOLOGY METHOD 07/07/2024 7:19 [facility] NRBC Absolute 0.00 <0.10 K/mcL LAB HEMETOLOGY METHOD 07/07/2024 7:19 AM [facility] Blood Venous blood specimen / Unknown Venipuncture / Unknown 07/07/2024 6:20 AM EDT 07/07/2024 6:57 AM EDT Paola RAND LAB BLOOD ORDERABLES Final Resu lt [facility] [address] [place] [address], * Magnesium (07/07/2024 6:20 AM EDT) Only the most recent of5 resultswithin the time period is included. Magnesium 2.3 1.9 - 2.6 mg/dL LAB CHEMISTRY METHOD 07/07/2024 7:39 AM [facility] Blood Venous blood specimen / Unknown Venipuncture / Unknown 07/07/2024 6:20 AM EDT 07/07/2024 6:55 AM EDT us Paola RAND LAB BLOOD ORDERABLES Final Resu lt [facility] [address] [place] [address], [place] [phone] * (ABNORMAL) Comprehensive metabolic panel (07/07/2024 6:20 AM EDT) Only the most recent of2 resultswithin the time period is included. Sodium 130(L) 133 - 145 mmol/L LAB CHEMISTRY METHOD 07/07/2024 8:12 AM EDT [facility] Potassium 5.4 3.5 - 5.5 mmol/L LAB CHEMISTRY METHOD 07/07/2024 8:12 AM [facility] Chloride 97 96 - 110 mmol/L LAB CHEMISTRY METHOD 07/07/2024 8:12 AM [facility] CO2 27 21 - 32 mmol/L LAB CHEMISTRY METHOD 07/07/2024 8:12 AM T [facility] Anion Gap 6 3 - 11 LAB CHEMISTRY METHOD 07/07/2024 8:12 AM [facility] Glucose 153(H) 70 - 100 mg/dL LAB CHEMISTRY METHOD 07/07/2024 8:12 AM [facility] BUN 10 5 - 25 mg/dL LAB CHEMISTRY METHOD 07/07/2024 8:12 AM [facility] Creatinine 0.62(L) 0.70 - 1.30 mg/dL LAB CHEMISTRY METHOD 07/07/2024 8:12 AM [facility] eGFR 105 >=60 mL/min/1. 73m2 LAB CHEMISTRY METHOD 07/07/2024 8:12 AM [facility] Comment:Calculation based on the??Chronic Kidney Disease Epidemiology Collaboration (CKD-EPI) equation refit??without adjustment for race. BUN/Creatinine Ratio 16.1 LAB CHEMISTRY METHOD 07/07/2024 8:12 AM [facility] Calcium 8.4(L) 8.5 - 10.5 mg/dL LAB CHEMISTRY METHOD 07/07/2024 8:12 AM [facility] AST (SGOT) 67(H) 10 - 42 unit/L LAB CHEMISTRY METHOD 07/07/2024 8:12 AM [facility] Comment:Results verified by repeat testing ALT (SGPT) 39 10 - 60 unit/L LAB CHEMISTRY METHOD 07/07/2024 8:12 AM [facility] Comment:Results verified by repeat testing Alkaline Phosphatase 167(H) 42 - 121 unit/L LAB CHEMISTRY METHOD 07/07/2024 8:12 AM [facility] Total Protein 5.9(L) 6.0 - 8.0 g/dL LAB CHEMISTRY METHOD 07/07/2024 8:12 AM [facility] Albumin 2.4(L) 3.2 - 5.0 g/dL LAB CHEMISTRY METHOD 07/07/2024 8:12 AM [facility] Total Bilirubin 3.8(H) 0.0 - 1.4 mg/dL LAB CHEMISTRY METHOD 07/07/2024 8:12 AM [facility] Blood Venous blood specimen / Unknown Venipuncture / Unknown 07/07/2024 6:20 AM EDT 07/07/2024 6:55 AM EDT us Paola RAND LAB BLOOD ORDERABLES Final Resu lt [facility] [address] [place] [address], * (ABNORMAL) POCT Glucose, blood (07/06/2024 5:56 PM EDT) Glucose POCT 141(H) 70 - 100 mg/dL 07/06/2024 5:57 PM EDT [facility] Blood Capillary blood specimen / Unknown 07/06/2024 5:56 PM EDT 07/06/2024 5:58 PM EDT us Rosaura Iglesias MD LAB POINT OF CARE TE ST DOCKED DEVICE UNSOLICITED RESULTS Final Result [facility] ([facility]) [facility] [address] [place] [address], [place] [phone] * IR Insert Hepatic Shunt TIPS (07/06/2024 [...] Signed Date: 07/06/2024 17:22 ET Workstation ID: [id number] Transcribed By: Self Edit Transcribed Date: 07/06/2024 [...] and a 0.035 guidewire was inserted. ??A 10-Congolese by 45 cm check flow sheath was inserted and advanced to the IVC. ??A 5-Congolese MPA catheter was then used to catheterize the right hepatic vein. ??Venogram confirms position in the hepatic vein. ??The 10-Congolese by 45 cm sheath was advanced over [...] with an 6 mm x 6 cm [employer] balloon. ??The sheath was then advanced into [...] and a 0.035 guidewire was inserted. A 10-Congolese by45 cm check flow sheath was inserted and advanced to the IVC. A 5-FrenchMPA catheter was then used to catheterize the right hepatic vein.Venogram confirms position in the hepatic vein. The 10-Congolese by 45 cmsheath was advanced over the catheter into the right hepatic vein. TheCellwitchon scorpion TIPS set was then introduced through [...] dilatedwith an 6 mm x 6 cm [employer] SUSP[employer]ERING MECH[employer]IC balloon. The sheath was then advanced into [...] Signed Date: 07/06/2024 17:22 ET Workstation ID: [id number] Transcribed By: Self Edit Transcribed Date: 07/06/2024 17:09 ET Job Anderson MD IMG IR PROCEDURES Final Re sult * TH AN ENDOTRACHEAL(NO CHARGE) (07/06/2024 3:00 PM EDT) Yovanny Higgins CRNA - 07/06/2024 3:00 PM EDT Yovanny Mendez CRNA ? 07/06/2024 ??3:01 PM General Information and Staff Patient location during procedure: [place] Resident/TRANSIT AUTHORITY POLICE OFFICER: Yovanny Mendez CRNA Performed: resident/TRANSIT AUTHORITY POLICE OFFICER/CAA Performed by: Yovanny Mendez CRNA Authorized [...] Mask difficulty assessment: 0 - not attempted Juan Antonio Hutchinson MD ANESTHESIA ORDERABLES Final [...] 1:45 PM EDT) Only the most recent of2 resultswithin the time period is included. Protime 15.9(H) 10.6 - 13.9 sec LAB COAGULATION METHOD 07/06/2024 2:28 PM EDT [facility] INR 1.3 LAB COAGULATION METHOD 07/06/2024 2:28 PM EDT [facility] Blood Venous blood specimen / Unknown 07/06/2024 1:45 PM EDT 07/06/2024 1:55 PM EDT Paul Bonner MD LAB BLOOD ORDERABLES Final Resu lt [facility] [address] [place] [address], [place] [phone] * Type and screen (07/06/2024 1:45 PM EDT) ABO Group B 07/06/2024 2:47 PM EDT [facility] Rh Type Positive 07/06/2024 2:47 PM EDT [facility] Antibody Screen Negative 07/06/2024 2:47 PM EDT [facility] Blood Venous blood specimen / Unknown 07/06/2024 1:45 PM EDT 07/06/2024 1:55 PM EDT Paul Alfaro LAB BLOOD BANK TEST ORDERABLES Final Result [facility] ([facility]) [facility] [address] [place] [address], [place] [phone] * (ABNORMAL) TRANSTHORACIC ECHOCARDIOGRAM (TTE) COMPLETE W/ CONTRAST (06/15/2024 2:35 PM EST) Left Atrium Major C[place]olla 5.9 cm CV PACS LA Area Sys [...] 12:53 PM EST) Only the most recent of2 resultswithin the time period is included. Ventricular Rate ECG 85 BPM GEMUSE Atrial Rate 85 BPM GEMUSE P-R Interval 126 ms GEMUSE QRS Duration 130 ms GEMUSE Q-T Interval 408 ms GEMUSE QTc 485 ms GEMUSE P Wave [place] 28 degrees GEMUSE R [place] -36 degrees GEMUSE T [place] 29 degrees GEMUSE ECG Interpretation Normal sinus rhythm Left axis deviation Right bundle branch block Abnormal ECG When compared with ECG of 12-JUN-2024 03:57, No significant change was found Confirmed by MD Felix, [place] ([id number]) on 06/15/2024 5:37:07 PM GEMUSE 06/15/2024 12:5 3 PM EST 06/15/2024 5:37 PM EST us Liang Reinoso MD ECG ORDERABLES Fin al Result GEMUSE * Phosphorus (06/15/2024 6:38 AM EST) Only the most recent of3 resultswithin the time period is included. Pathologist [facility] Phosphorus 3.0 2.5 - 4.5 mg/dL LAB CHEMISTRY METHOD 06/15/2024 7:50 AM EST [facility] Blood Venous blood specimen / Unknown Venipuncture / Unknown 06/15/2024 6:38 AM EST 06/15/2024 7:06 AM EST Liang Reinoso MD LAB BLOOD ORDERABLE S Final Result Performing Organization Address [facility]/ZIP Co de Phone Number [facility] [address] [place] [address], [place] [phone] * Cell count with reflex differential, body fluid (06/14/2024 10:19 AM EST) [facility] Body Fluid Total Nucleated Cells 218 /mm3 LAB HEMETOLOGY METHOD 06/14/2024 11:38 AM EST [facility] Body Fluid RBC 1,000 /mm3 LAB HEMETOLOGY METHOD 06/14/2024 11:38 AM EST [facility] Body Fluid Color Yellow 06/14/2024 11:38 AM EST [facility] Body Fluid Clarity Clear 06/14/2024 11:38 AM EST [facility] Body Fluid Source Peritoneal 06/14/2024 11:38 AM EST [facility] [...] Final Result Performing Organization Address [facility]/ZIP Co de Phone Number [facility] [address] [place] [address], [place] [phone] * Culture body fluid with gram stain [...] Final Result [facility] [address] [place] [address], [place] [phone] * Differential body fluid (06/14/2024 10:19 AM EST) Fluid Neutrophils % 4 % 06/14/2024 11:38 AM EST [facility] Fluid Lymphocytes % 74 % 06/14/2024 11:38 AM [facility] Fluid Monocytes/Macrop hages [...] 10:19 AM EST 06/14/2024 10:[address] [facility] - 06/14/2024 11:38 AM EST No reference ranges have been established for body fluids. Clinical correlation recommended. Cristiana RAND LAB BODY FLUIDS AND STO OLS ORDERABLES Final Result Performing Organization Address [facility]/ZIP Co de Phone Number [facility] [address] [place] [address], [place] [phone] * Culture fungal, other (06/14/2024 10:19 AM EST) Culture, Fungus Negative for Fungus after 4 Weeks 07/12/2024 10:17 AM EDT [facility] Peritoneal Fluid Peritoneal cavity structure / Unknown Non-blood Collection / Unknown 06/14/2024 10:19 AM EST 06/14/2024 10:27 AM EST Cristiana RAND LAB MICROBIOLOGY - GENE RAL ORDERABLES Final Result Performing Organization Address [facility] Co de Phone Number [facility] [address] [place] [address], [place] [phone] * Specific gravity, body fluid (06/14/2024 10:19 [...] Final Result Performing Organization Address [facility] Co de Phone Number [facility] [address] [place] [address], [place] [phone] * Protein, body fluid (06/14/2024 10:19 AM EST) Protein, Fluid 1.4 See Comment g/dL LAB CHEMISTRY METHOD 06/14/2024 11:19 AM EST [facility] Peritoneal Fluid Non-blood Collection / Unknown 06/14/2024 10:19 AM EST 06/14/2024 10:[address] [facility] - 06/14/2024 11:19 AM EST No reference ranges have been established for body fluids. Clinical correlation recommended. Cristiana RAND LAB BODY FLUIDS AND STO OLS ORDERABLES Final Result Performing Organization Address [facility]/ZIP Co de Phone Number [facility] [address] [place] [address], [place] [phone] * Lactate dehydrogenase, body fluid (06/14/2024 10:19 AM EST) LD, Fluid 78 See Comment unit/L LAB CHEMISTRY METHOD 06/14/2024 11:42 AM EST [facility] Peritoneal Fluid Peritoneal cavity structure / Unknown Non-blood Collection / Unknown 06/14/2024 10:19 AM EST 06/14/2024 10:[address] [facility] - 06/14/2024 11:42 AM EST No reference ranges have been established for body fluids. Clinical correlation recommended. Cristiana RAND LAB BODY FLUIDS AND STO OLS ORDERABLES Final Result Performing Organization Address City/[facility]/ZIP Co de Phone Number [facility] [address] [place] [address], [place] [phone] * Glucose, body fluid (06/14/2024 10:19 AM EST) Glucose, Fluid 150 See Comment mg/dL LAB CHEMISTRY METHOD 06/14/2024 11:28 AM EST [facility] Ascites 06/14/2024 10:1 9 AM EST 06/14/2024 10:[address] [facility] - 06/14/2024 11:28 AM EST No reference ranges have been established for body fluids. Clinical correlation recommended. Cristiana RAND LAB BODY FLUIDS AND STO OLS ORDERABLES Final Result Performing Organization Address [facility] Co de Phone Number [facility] [address] [place] [address], [place] [phone] * Amylase, body fluid (06/14/2024 10:19 AM EST) Amylase, Fluid 24 See Comment unit/L LAB CHEMISTRY METHOD 06/14/2024 11:19 AM EST [facility] Peritoneal Fluid Non-blood Collection / Unknown 06/14/2024 10:19 AM EST 06/14/2024 10:[address] [facility] - 06/14/2024 11:19 AM EST No reference ranges have been established for body fluids. Clinical correlation recommended. Cristiana RAND LAB BODY FLUIDS AND STO OLS ORDERABLES Final Result Performing Organization Address [facility] de Phone Number [facility] [address] [place] [address], [place] [phone] * Albumin, body fluid (06/14/2024 10:19 AM EST) Albumin, Fluid 0.6 See Comment g/dL LAB CHEMISTRY METHOD 06/14/2024 11:19 AM EST [facility] Peritoneal Fluid Non-blood Collection / Unknown 06/14/2024 10:19 AM EST 06/14/2024 10:[address] [facility] - 06/14/2024 11:19 AM EST No reference ranges have been established for body fluids. Clinical correlation recommended. us Cristiana RAND LAB BODY FLUIDS AND STO OLS ORDERABLES Final Result [facility] [address] [place] [address], * Non-gynecologic cytology (06/14/2024 10:19 AM EST) Final Diagnosis A. Peritoneal fluid, paracentesis, (ThinPrep, cell block): Negative for malignant cells. 06/17/2024 4:30 PM EST [facility] Specimen A Adequacy Satisfactory for evaluation 06/17/2024 4:30 PM EST [facility] Gross Description A. Peritoneal Cavity, : Received 115 ml of yellow fluid; 1 ThinPrep, 1 Cell block Cell block in formalin @1500; total formalin fixation time 6 hours. 06/17/2024 4:30 PM EST [facility] Disclaimer Unless otherwise specified, all tissue is 10% NB formalin fixed and paraffin embedded. Technical cytopathology services provided by [facility], at [address] [place] [address] (CLIA # [id number]/Katya Lo MD, [employer].) 06/17/2024 4:30 PM EST [facility] Peritoneal Fluid Peritoneal cavity structure / Unknown Non-blood Collection / Unknown 06/14/2024 10:19 AM EST 06/14/2024 2:30 PM EST us Cristiana RAND LAB CYTOLOGY ORDERABLES Final Result Performing Organization Address City/[facility]/ZIP Co de Phone Number [facility] [address] [place] [address], [place] [phone] * [place] Paracentesis w Image Guidance (06/14/2024 [...] Signed Date: 06/15/2024 12:40 ET Workstation ID: [id number] Transcribed By: Self Edit Transcribed Date: 06/14/2024 11:29 ET Resident/PA/METAL PATTERN MAKER: Milady Chilel Narrative 06/15/2024 12:40 PM EST [...] Signed Date: 06/15/2024 12:40 ET Workstation ID: [id number] Transcribed By: Self Edit Transcribed Date: 06/14/2024 11:29 ET Resident/PA/METAL PATTERN MAKER: Milady Chilel Cristiana RAND IMG US PROCEDURES [...] Re sult [facility] [address] [place] [address], [place] [phone] * Culture blood (06/14/2024 5:22 AM EST) Only the most recent of4 resultswithin the time period is included. Culture, Blood No growth at 5 days 06/19/2024 6:01 AM EST [facility] Blood Venous blood specimen / Unknown Venipuncture / Unknown 06/14/2024 5:22 AM EST 06/14/2024 5:33 AM EST us Napoleon Neely MD LAB MICROBIOLOGY - GENERAL OR DERABLES Final Result [facility] [address] [place] [address], * (ABNORMAL) CBC auto differential (06/14/2024 5:14 AM EST) Only the most recent of3 [...] LAB Basophils Absolute 0.02 0.00 - 0.20 K/[facility] HEMETOLOGY METHOD 06/14/2024 6:00 AM EST [facility] Immature Granulocytes Absolute 0.01 0.00 - 0.03 K/[facility] LAB HEMETOLOGY METHOD 06/14/2024 6:00 AM EST [facility] Blood Venous blood specimen / Unknown Venipuncture / Unknown 06/14/2024 5:14 AM EST 06/14/2024 5:34 AM EST us Napoleon Neely MD LAB BLOOD ORDERABLES Final Re sult Performing Organization Address [facility]/ZIP Co de Phone Number [facility] [address] [place] [address], [place] [phone] * ECG-Annotated (06/14/2024) Provider Onbase ECG ORDERABLES Final Result * [...] Phone Number [facility] [address] [place] [address], [place] [phone] * (ABNORMAL) C-reactive protein (06/13/2024 12:37 PM EST) Pathologist [facility] C-Reactive Protein 10.20(H) <=0.50 mg/dL LAB CHEMISTRY METHOD 06/13/2024 2:25 PM [facility] Blood Venous blood specimen / Unknown Venipuncture / Unknown 06/13/2024 12:37 PM EST 06/13/2024 12:55 PM EST us Napoleon Neely MD LAB BLOOD ORDERABLES Final Re sult [facility] [address] [place] [address], * (ABNORMAL) Hepatic function panel (06/13/2024 12:37 PM EST) [facility] Total Protein 5.9(L) 6.0 - 8.0 g/dL LAB CHEMISTRY METHOD 06/13/2024 2:25 PM [facility] Albumin 2.3(L) 3.2 [...] 2:25 PM EST [facility] Alkaline Phosphatase 133(H) 42 - 121 unit/L LAB CHEMISTRY METHOD 06/13/2024 2:25 PM EST [facility] Blood Venous blood specimen / Unknown Venipuncture / Unknown 06/13/2024 12:37 PM EST 06/13/2024 12:55 PM EST Napoleon Neely MD LAB BLOOD ORDERABLES Final Re sult Performing Organization Address City/[facility]/ZIP Co de Phone Number [facility] [address] [place] [address], [place] [phone] * Troponin I high sensitivity (06/12/2024 6:44 AM EST) Only the most recent of2 resultswithin the time period is included. [facility] High Sensitivity Troponin I 17 <=79 ng/L LAB CHEMISTRY METHOD 06/12/2024 7:31 AM EST [facility] Blood Venous blood specimen / Unknown Venipuncture / Unknown 06/12/2024 6:44 AM EST 06/12/2024 6:58 AM EST Narrative [facility] - 06/12/2024 7:31 AM EST High levels of biotin in samples may falsely decrease hsTroponin values. ??Use caution when interpreting hsTroponin results in patients taking biotin who exhibit renal impairment (eGFR <60) or in patients taking more than 20 mg/day of biotin. Nayeli RAND LAB BLOOD ORDERABLES Final Resu lt [facility] [address] [place] [address], [place] [phone] * CT Abdomen Pelvis w Contrast (06/12/2024 6:28 AM EST) Anatomical Region Laterality Modality Body Computed Tomogra phy 06/12/2024 7:06 AM EST Impressions 06/12/2024 7:06 AM EST Impression: Cirrhotic liver with portal hypertension including iouoowxi-it-otzov volume ascites, splenomegaly and varices. No apparent [...] Impression: Cirrhotic liver with portal hypertension including igrxyrov-qc-vufuh volume ascites, splenomegaly and varices. No apparent bowel obstruction. No clear explanation for hematuria. If persistent, follow-up dedicatedCT urogram suggested. Decompressed urinary bladder with Cuello catheter limiting detail. Findings suggesting panniculitis. Other findings as noted. This document has been electronically signed by: Jose Underwood MD on 06/12/2024 07:06:20 Nayeli RAND [facility] PROCEDURES Final Result * CT Angio Chest wo and/or w Contrast (06/12/2024 6:28 AM EST) Anatomical Region Laterality Modality Body Computed Tomogra phy 06/12/2024 6:43 AM EST Impressions 06/12/2024 6:43 AM EST A 1 cm mixed density nodular right lower lobe opacity indeterminate. Could be infectious, inflammatory or neoplastic. Follow-up chest CT is recommended in 3 months to assess stability. Kywqd-sd-vgoaattv size left pleural effusion and trace right [...] contour and moderate volume of ascites. Splenomegaly. Hagrn-rr-uleiklkv size left pleural effusion and trace right [...] contour and moderate volume of ascites. Splenomegaly. Fqypt-ly-iitxuhbo size left pleural effusion and trace right [...] recommended in 3 months to assess stability. Zxifn-gj-ktpkvrcl size left pleural effusion and trace right [...] B-type natriuretic peptide (06/12/2024 5:19 AM EST) Pathologist [facility] BNP 95 <=100 pcg/mL LAB CHEMISTRY METHOD 06/12/2024 6:10 AM EST [facility] Blood Venous blood specimen / Unknown Venipuncture / Unknown 06/12/2024 5:19 AM EST 06/12/2024 5:22 AM EST us Nayeli RAND LAB BLOOD ORDERABLES Final Resu lt Performing Organization Address [facility]/ZIP Co de Phone Number [facility] [address] [place] [address], * (ABNORMAL) Blood culture pathogens molecular study (06/12/2024 3:44 AM EST) [facility] Pseudomonas aeruginosa Detected (A) Not Detected LAB MICROBIOLOGY METHOD 06/13/2024 7:45 AM EST [facility] Blood Venous blood specimen / Unknown Venipuncture / Unknown 06/12/2024 3:44 AM EST 06/12/2024 3:51 AM EST Nayeli RAND LAB MICROBIOLOGY - GENERAL ORDE RABLES Final Result Performing Organization Address [facility]/ZIP Co de Phone Number [facility] [address] [place] [address], [place] [phone] * (ABNORMAL) Lactate (06/12/2024 3:40 AM EST) [facility] Lactate 3.2(HH) 0.4 - 2.0 mmol/L LAB CHEMISTRY METHOD 06/12/2024 4:30 AM EST [facility] Blood Venous blood specimen / Unknown Venipuncture / Unknown 06/12/2024 3:40 AM EST 06/12/2024 3:51 AM EST us Nayeli RAND LAB BLOOD ORDERABLES Final Resu lt [facility] [address] [place] [address], [place] [phone] * (ABNORMAL) Urinalysis with reflex microscopic and culture (06/12/2024 1:15 AM EST) Specific [place] Urine 1.007 1.003 - 1.030 LAB URINALYSIS [...] RAND LAB URINE ORDERABLES Final Resu lt [facility] [address] [place] [address], * Pugh urine culture tube (06/12/2024 1:15 AM EST) Extra Tube Hold for add-ons. 06/12/2024 4:01 AM [facility] Comment:Auto resulted. Urine Urine specimen obtained by clean catch procedure / Unknown Non-blood Collection / Unknown 06/12/2024 1:15 AM EST 06/12/2024 2:59 AM EST us Nayeli RAND LAB URINE ORDERABLES Final Resu lt Performing Organization Address [facility]/ZIP Co de Phone Number [facility] [address] [place] [address], [place] [phone] * (ABNORMAL) Culture urine (06/12/2024 1:15 AM EST) Pathologist [facility] Culture, Urine >100,000 CFU/mL Pseudomonas aeruginosa(A) SAVANNAH 06/15/2024 9:00 AM EST [facility] Comment: This is an [...] LAURIE OCASIO Final Result Performing Organization Address [facility]/ZIP Co de Phone Number [facility] [address] [place] [address], [place] [phone] * (ABNORMAL) Thyroid stimulating hormone (05/26/2024 6:59 AM EST) Pathologist [facility] TSH 5.20(H) 0.40 - 4.00 mcIU/mL LAB CHEMISTRY METHOD 05/26/2024 1:24 PM EST [facility] Blood Venous blood specimen / Unknown Venipuncture / Unknown 05/26/2024 6:59 AM EST 05/26/2024 10:29 AM EST us Gerry Barksdale LAB BLOOD ORDERABLES Final Resul t Performing Organization Address [facility] de Phone Number [facility] [address] [place] [address], [place] [phone] * Folate (05/26/2024 6:59 AM EST) [facility] Folate 4.3 2.8 - 17.0 ng/ml LAB CHEMISTRY METHOD 05/26/2024 1:39 PM EST [facility] Blood Venous blood specimen / Unknown Venipuncture / Unknown 05/26/2024 6:59 AM EST 05/26/2024 10:29 AM EST us Gerry Barksdale LAB BLOOD ORDERABLES Final Resul t Performing Organization Address [facility] de Phone Number [facility] [address] [place] [address], [place] [phone] * (ABNORMAL) Vitamin B12 (05/26/2024 6:59 AM EST) [facility] Vitamin B-12 1,309(H) 250 - 900 pcg/mL LAB CHEMISTRY METHOD 05/26/2024 1:39 PM EST [facility] Blood Venous blood specimen / Unknown Venipuncture / Unknown 05/26/2024 6:59 AM EST 05/26/2024 10:29 AM EST us Gerry Barksdale LAB BLOOD ORDERABLES Final Resul t Performing Organization Address [facility] de Phone Number [facility] [address] [place] [address], [place] [phone] * Vancomycin, trough (05/23/2024 12:10 PM EST) Only the most recent of2 resultswithin the time period is included. [facility] Vancomycin Trough 13.0 10.0 - 20.0 mcg/mL LAB CHEMISTRY METHOD 05/23/2024 12:59 PM EST [facility] Blood Venous blood specimen / Unknown Venipuncture / Unknown 05/23/2024 12:10 PM EST 05/23/2024 12:28 PM EST Hue RAND LAB BLOOD ORDERABLES Final Re sult Performing Organization Address [facility]/ZIP Co de Phone Number [facility] [address] [place] [address], [place] [phone] * Lavender tube (05/23/2024 3:07 AM EST) Extra Tube Hold for add-ons. 05/23/2024 5:01 AM EST [facility] Comment:Auto resulted. Blood Venous blood specimen / Unknown 05/23/2024 3:07 AM EST 05/23/2024 3:19 AM EST Chemo Reveles MD LAB BLOOD ORDERABLES Final Resu lt Performing Organization Address [facility]/ZIP Co de Phone Number [facility] [address] [place] [address], [place] [phone] * Hemoglobin A1c (05/21/2024 3:17 AM EST) [...] ORDERABLES Final Resu lt Performing Organization Address City/[facility]/ZIP Co de Phone Number [facility] [address] [place] [address], from Last 3 Months or Most Recently Relevant to Health Maintenance Insurance [facility] MEDIC[facility] Member Subscriber Plan / Payer (Ef fective 2023-Present) Name:Jonny Reed Relation to Subscriber:Self Name:Jonny Reed Payer ID:[id number] Group ID:[id number] Type:Not on file Address: [place] [id number] [place] [phone] Advance Directives Documents on File Type Date Recorded Patient Clinical Associate Expl anation Advance Directives and Living Will 03/04/2024 11:52 AM Advance Directives and Living Will 03/03/2024 1:15 PM [facility] Proxy * Full Code - Default [...] Agents on File Name Relationship Healthcare Agent [facility] Communication Elinor Cortez Isabel Health Care Agent Care Teams Certified Lactation Educator Relationship Specialty Start Date End Date Dalia Harmon PA [address], [address] [place] [address] PCP - General 05/10/24
--- OUTSIDE RECORDS SUMMARY | 2024-08-20 12:37 | XMS_ITS | Data Portability ---
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 I provided real-time medical direction for this encounter and was immediately available to provide additional phone-based assistance as needed. HPI: 64M presenting with malfunctioning catheter, leaking. No other symptoms noted. Was recently tested for UTI and was negative. VSS. Exam otherwise unremarkable per the quality assurance coordinator. Able to reinsert catheter to have appropriate [...] We discussed the need to seek care urgently/emergentl y in the setting of any new or [...] in the field was performed by my quality assurance coordinator colleague, as noted above, I provided real-time [...] needs coags and platelets checked Disposition: To [facility] ED via 911. Patient is agreeable to plan. Expect call placed to ED We discussed the situation and I recommended referral to the emergency department. This was based on above concerns under Plan [email or web address] Not available 06/11/2024 22:20:54 08/09/2024 08/09/2024 I provided real -time medical direction via phone for this encounter and was available for additional phone-based assistance as needed. I have reviewed and agree with the Assessment and Plan as documented by the Manager Group Home. Patient given the opportunity to ask questions. Our service contacted for an assessment of: Blockage of Alex catheter As per above, patient With chronic indwelling Alex catheter. Has recently restarted Eliquis. Noticed a color change. Also noticed that he was urinating around the Alex catheter site. He has recently been treated for UTI. He has just completed his course of Macrobid this morning. He was initially started on Cipro but states this was changed to Macrobid based on culture results. He denies any systemic symptoms of fever, chills. He states overall symptoms are improved and this is a new problem related to the Alex catheter itself. Per quality assurance coordinator on the scene, vital signs are stable patient is afebrile. Urine color in the bag is dark without sediment. Urine is present in Alex bag. per quality assurance coordinator on the scene when he replaced the Alex catheter there was a small clot that was present blocking the catheter opening. Impression: Blockage of Alex catheter with a blood clot Plan: Replaced Alex catheter. Continue with anticoagulation. Would recommend follow-up with urologist this coming week depending on color change in the urine. Red flags discussed as to when to seek a higher level of care. Patient should present to a higher level of care if there is no urine output at or if he continues with leakage around the Alex catheter And hematuria. Allergies: Reviewed PCP f/u: We discussed the diagnostic uncertainty of home visits and the risk associated with this. In this case, the patient and I felt this to be an acceptable and reasonable amount of risk given the benefit of avoiding an ED visit. We discussed the need to seek care urgently/emergentl y in the setting of any new or worsening serious symptoms, particularly fever chills lightheadedness altered mental status [email or web address] Not available 08/09/2024 18:36:18 Plan of Treatment Reminders Order Date Submit [...] Name and Address Organization Details Recorded Time 41955 semagluti de medicatio n Not available Not available Not available 03/18/2024 RxNorm Not Available [facility] - production 4 18:27:38 07796 nystatin medicatio n Not available Not available Not available 06/10/2024 7597 RxNorm Not Available [facility] - production 5 20:32:41 09644 codeine medicatio n Not available Not available [...] Address Organization Details Last Updated DateTime 5 821179. 28 g 97 % 97 % 16 /min 98.2 [degF] 86 /min 156 mm[Hg] 82 mm[Hg] Not Available [facility] production 5 10:41:34 Date Recorded Body weight Body height Body temperature Oxygen saturation Oxygen saturation in Arterial blood by Pulse oximetry Respiratory rate Heart rate Systolic blood pressure Diastolic blood pressure Provider Name and Address Organization Details Last Updated DateTime 5 518617. 28 g 167.64 cm 98 [degF] 94 % 94 % 16 /min 87 /min 162 mm[Hg] 72 mm[Hg] Not Available [facility] 5 18:57:19 Date Recorded Heart rate Oxygen saturation Oxygen saturation in Arterial blood by Pulse oximetry Body temperature Respiratory rate Systolic blood pressure Diastolic blood pressure Provider Name and Address Organization Details Last Updated DateTime 5 74 /min 96 % 96 % 97.9 [degF] 16 /min 118 mm[Hg] 62 mm[Hg] Not Available [facility] 5 20:56:09 Date Recorded Body temperature Body height Oxygen saturation Oxygen saturation in Arterial blood by Pulse oximetry Heart rate Body weight Respiratory rate Systolic blood pressure Diastolic blood pressure Provider Name and Address Organization Details Last Updated DateTime 5 98.9 [degF] 165.1 cm 97 % 97 % 99 /min 807832. 584 g 20 /min 150 mm[Hg] 90 mm[Hg] Not Available [facility] - production 5 20:56:17 Date Recorded Body temperature Body weight Respiratory rate Heart rate Oxygen saturation Oxygen saturation in Arterial blood by Pulse oximetry Body height Systolic blood pressure Diastolic blood pressure Provider Name and Address Organization Details Last Updated DateTime 5 98.4 [degF] 364282. 968 g 16 /min 85 /min 98 % 98 % 165.1 cm 131 mm[Hg] 85 mm[Hg] Not Available [facility] 5 16:52:32 Social History None recorded. Functional Status None recorded. Mental Status None recorded. Family History Nothing Reported. Medical History No medical history recorded. Past Encounters Encounter ID Performer Location Encounter Start Date Encounter Closed Date Diagnosis/Indication Diagnosis SNOMED-CT Code Diagnosis ICD10 Code Diagnosis Note [id number] Aleksandar Manning MD Main - [facility] [address] [place] [id number] 03/16/2024 13:37:07 03/16/2024 16:05:19 Mechanical complication of urethral indwelling catheter 35388771 T83.098A [id number] Elvi Pereira MD Main - [facility] [address] [place] [id number] 03/18/2024 19:24:55 03/19/2024 15:31:31 Complication of urinary catheter [id number] T83.9XXA [id number] Juan Antonio Bustillo MD Main - [facility] [address] [place] [id number] 04/23/2024 10:41:31 04/23/2024 16:17:35 Complication of urinary catheter 102746855 T83.9XXA As noted, we were called to see this patient regarding concerns of malpositio n of alex catheter Evaluation in the field was performed by my quality assurance coordinator colleague, as noted above, I provided real-time direction and supervisio n for this visit. The evaluation revealed normal VS and simple disconnect ion, which the patient was not able to adequately visualize due to body habitus. Impression :Alex disconnect ion without any patient complicati ons Plan:Grant crawford [id number] Betsy Lopez MD [facility] [address] [place] [id number] 04/25/2024 18:57:17 04/26/2024 00:18:55 Complication of urinary catheter [id number] T83.9XXS As noted, we were called to see this patient regarding concerns of malfunctio vy urinary catheter. Evaluation in the field was performed by my quality assurance coordinator colleague, as noted above, I provided real-time [...] of any new or worsening serious symptoms. [id number] Yasmeen Redmond MD Main - [facility] [address] [place] [id number] 06/10/2024 20:56:07 06/10/2024 21:35:04 Indwelling urethral urinary catheter in situ [id number] Z96.0 [id number] FRANSISCO POLANCO MD Main - [facility] [address] [place] [id number] 06/11/2024 20:56:11 06/12/2024 09:25:59 Jovi hematuria [id number] R31.0 [id number] Lauryn Klein MD Main - [facility] [address] [place] [id number] 0 08/09/2024 16:47:46 08/09/2024 23:26:28 Complication of urinary catheter 640275991 T83.9XXD R39.89 Health Concerns Section Related Observation LastModified by Organization Detai ls LastModified Time None Recorded Concern Status LastModified by Organization Details LastModified Time None Recorded Advance Directives Directive None Recorded Payers Encounter Date Sequence Insurance Name Policy Number Policy Pan Covered Member ID Pan Member ID Guarantor Name 04/23/2024 1 [facility] - DOS ON OR AFTER 2022 - DUAL ELIGIBLE - [employer] OPTIONS AND ONE CARE (MEDICARE REPLACEMENT/ADV ANTAGE - HMO) Jonny Reed [id number] Jonny Reed 04/25/2024 1 [employer] - DOS ON OR AFTER 2022 - DUAL ELIGIBLE - [employer] OPTIONS AND ONE CARE (MEDICARE REPLACEMENT/ADV ANTAGE - HMO) Jonny Reed [id number] Jonny Reed 06/10/2024 1 [employer] - DOS ON OR AFTER 2022 - DUAL ELIGIBLE - [employer] OPTIONS AND ONE CARE (MEDICARE REPLACEMENT/ADV ANTAGE - HMO) Jonny Reed [id number] Jonny Reed 06/11/2024 1 [employer] - DOS ON OR AFTER 2022 - DUAL ELIGIBLE - [employer] OPTIONS AND ONE CARE (MEDICARE REPLACEMENT/ADV ANTAGE - HMO) Jonny Reed [id number] Jonny Reed 08/09/2024 1 [employer] - DOS ON OR AFTER 2022 - DUAL ELIGIBLE - [employer] OPTIONS AND ONE CARE (MEDICARE REPLACEMENT/ADV ANTAGE - HMO) Jonny Reed [id number] Jonny Reed Notes Date Note Type Note [...] PMH: Chronic Back Pain, Hypertension, Cirrhosis Comments: Manager Transport verified the name//address and phone number. Pt [...] ................... ................... ................... ................... ................... ........ Manager Group Home Note From Hussein Grossman: Pt co alex cath disconnection from bag tube. Pt got up and it fell off. Pay can not see th area due to obesity and was unsure what had happened. Pt denies pain. Pt sts urine is sti voiding from catheter. Pt has no other complaints. Alex reconnected without issue. Pt education on signs indicating the ER. [facility] contacted and advised of resolution. ................... ................... ................... ................... ................... ................... ................... ........ [facility] Consulted: Justin Bustillo ................... ................... ................... ................... ................... ................... ................... ........ Disposition: Fulfilled Juan Antonio Bustillo MD [address] [place] [address],[address], [place], [phone], [employer] 04/23/2024 10:47:59 04/25/2024 text/html [facility] Nurse Triage Notes (Pedro Hansen - RN): [...] PMH: Chronic Back Pain, Hypertension, Cirrhosis Comments: Manager Transport verified the Pt.'s name//address and phone number. [...] ................... ................... ................... ................... ................... ........ Manager Group Home Note From Marcellus Mauro: This 64-year-old male [...] ........ [facility] Consulted: Betsy Lopez ................... ................... ................... ................... ................... ................... ................... ........ Disposition: Fulfilled Betsy Lopez MD [address] [place] [address],[address], [place], [phone], [employer] 04/25/2024 20:46:05 06/10/2024 text/html [facility] Nurse Triage Notes (Elsie Sultana - VIVIAN): [...] ................... ................... ................... ................... ................... ........ Manager Group Home Note From Harley Rodriguez: Dispatched to above [...] obviously displaced, no active leaking. [facility] contacted, advised of patient complaints and exam findings. Catheter balloon drained 10ml sterile water, re-inflated, patient reported discomfort, catheter advanced and re-inflated without pain, urine moving in tubing, patient denies discomfort. [facility] advised of catheter troubleshooting, recommends home monitoring with follow up should leaking continue. Patient agrees with this plan. Patient has no additional questions or concerns at this time. SC8 clear. EOR. ................... ................... ................... ................... ................... ................... ................... ........ [facility] Consulted: Yasmeen Redmond ................... ................... ................... ................... ................... ................... ................... ........ Disposition: Fulfilled Yasmeen Redmond MD [address] [place] [address],[address], [place], [phone], [employer] 06/10/2024 21:28:25 06/11/2024 text/html [facility] Nurse Triage Notes (Elsie Sultana - RN): Reason For Request: Patient has cath problems, Urine and blood in the back, problems all morning with it. Chief Complaints: Urinary catheter/nephrostom y tube problems PMH: Chronic Back Pain, Hypertension, Cirrhosis PMH Reviewed at 06/11/2024: Allergies Reviewed at 06/11/2024 18:22 Comments: [facility], catheter changed during [...] if with worsening s/sx-NE FRANSISCO POLANCO MD [address] [place] [address],[address], [place], [phone], [employer] 06/11/2024 22:21:06 08/09/2024 text/html [facility] Nurse Triage Notes (Genoveva Haney - VIVIAN): Reason For Request: Patient's Cath is not working, and needs help.Denies: Unable to void greater than 5 hours Erection that will not go away after 2 hours Fall or trauma that results in urinary incontinence in the setting of pain Fall or injury that results in incontinence in the absence of pain Lower back pain either unilateral or bilateral, unable to void, painful urination -hematuria Chief Complaints: Urinary Catheter/Nephrostom y Tube ProblemsPMH: Chronic Back Pain, Hypertension, CirrhosisPMH Reviewed at 08/09/2024 14:49Allergies Reviewed at 08/09/2024 14:49Comments: 64 y.o male Patient calling in to place a referral, identified via name and .Patient with chronic indwelling alex.Patient reports urge to void, and urinating around his alex tubing, and very little urine in the tubing and bag. He reports being unable to flush via port. Denies any sediment. He just finished his Macrobid this morning for a UTI. Denies any kinks in the tubing.He would like catheter evaluated. I provided information on the mobile health provider response time and advised the patient and/or caregiver to monitor reported signs and symptoms. I discussed the warning signs of when to seek emergency care. ................... ................... ................... ................... ................... ................... ................... ........ Manager Group Home Note From Ashwin Cardozo: Dispatched to the home of a 64 year old male with a chief complaint of a clogged urinary catheter. Pt has had many catheters over the last few months, and after a procedure where they had him come off of Eliquis a blood clot had seemed to clog the cath. His [employer] PROFILER had tried to flush it earlier today but it did not help. [facility] was consulted and wanted a full change out. Cath was removed and there was a large clot stuck in the end of it. A new 16 English was placed and urine started to flow again. Pt is just coming off antibiotics, and there was no sediment in the urine. Pt was relieved to have urine output again. Vitals in chart. ................... ................... ................... ................... ................... ................... ................... ........ [facility] Consulted: Lauryn Klein ................... ................... ................... ................... ................... ................... ................... ........ Disposition: Fulfilled Lauryn Klein MD [address] [facility],[address], [place], [address], [employer] 08/09/2024 18:36:28
--- OUTSIDE RECORDS SUMMARY | 2024-08-20 12:37 | XMS_ITS | Encounter Summary ---
Author Organization [facility] Address [address] [place] [address] Care Team Providers Care Air Traffic Supervisor Name Role Phone Dalia Harmon Primary Care Provider [phone] Encounter Details Date Type Department Care Team (Late st Contact Info) Description 05/26/[address] [facility] - Main Lab [address] [facility] [place] [phone] Gerry Barksdale [address] [facility] [address] [place] [address] Weakness; Urinary tract infection, site [...] 9:10 AM EDT Office Visit Gastroenterology - [place] [address] [place] [address] [facility] [address] [place] [address] 09/06/2024 9:15 AM EDT Clinical Support [facility] [address] [place] [phone] documented as of this encounter Procedures Procedure [...] (ABNORMAL) Vitamin B12 (05/26/2024 6:59 AM EST) [facility] Vitamin B-12 1,309(H) 250 - 900 pcg/mL LAB CHEMISTRY METHOD 05/26/2024 1:39 PM EST [facility] Blood Venous blood specimen / Unknown Venipuncture / Unknown 05/26/2024 6:59 AM EST 05/26/2024 10:29 AM EST Gerry Barksdale LAB BLOOD ORDERABLES Final Resul t [facility] [address] [place] [address], * Folate (05/26/2024 6:59 AM EST) [facility] Folate 4.3 2.8 - 17.0 ng/ml LAB CHEMISTRY METHOD 05/26/2024 1:39 PM EST [facility] Blood Venous blood specimen / Unknown Venipuncture / Unknown 05/26/2024 6:59 AM EST 05/26/2024 10:29 AM EST us Gerry Barksdale LAB BLOOD ORDERABLES Final Resul t Performing Organization Address City/[facility]/ZIP Co de Phone Number [facility] [address] [place] [address], [place] [phone] * (ABNORMAL) Thyroid stimulating hormone (05/26/2024 6:59 AM EST) [facility] TSH 5.20(H) 0.40 - 4.00 mcIU/mL LAB CHEMISTRY METHOD 05/26/2024 1:24 PM EST [facility] Blood Venous blood specimen / Unknown Venipuncture / Unknown 05/26/2024 6:59 AM EST 05/26/2024 10:29 AM EST us Gerry Barksdale LAB BLOOD ORDERABLES Final Resul t Performing Organization Address [facility] de Phone Number [facility] [address] [place] [address], [place] [phone] * (ABNORMAL) Comprehensive metabolic panel (05/26/2024 6:59 AM EST) [facility] Sodium 133 133 - 145 mmol/L LAB CHEMISTRY METHOD 05/26/2024 1:16 PM EST [facility] Potassium 3.6 3.5 - 5.5 mmol/L LAB CHEMISTRY METHOD 05/26/2024 1:16 PM [facility] Chloride 95(L) 96 - 110 mmol/L LAB CHEMISTRY METHOD 05/26/2024 1:16 PM [facility] CO2 31 21 - 32 mmol/L LAB CHEMISTRY METHOD 05/26/2024 1:16 PM [facility] Anion Gap 7 3 - 11 LAB CHEMISTRY METHOD 05/26/2024 1:16 PM [facility] Glucose 116(H) 70 - 100 mg/dL LAB CHEMISTRY METHOD 05/26/2024 1:16 PM [facility] BUN 15 5 - 25 mg/dL LAB CHEMISTRY METHOD 05/26/2024 1:16 PM [facility] Creatinine 0.52(L) 0.70 - 1.30 mg/dL LAB CHEMISTRY METHOD 05/26/2024 1:16 PM [facility] eGFR 111 >=60 mL/min/1. 73m2 LAB CHEMISTRY METHOD 05/26/2024 1:16 PM [facility] Comment:Calculation based on the??Chronic Kidney Disease Epidemiology Collaboration (CKD-EPI) equation refit??without adjustment for race. BUN/Creatinine Ratio 28.8 LAB CHEMISTRY METHOD 05/26/2024 1:16 PM [facility] Calcium 8.2(L) 8.5 - 10.5 mg/dL LAB CHEMISTRY METHOD 05/26/2024 1:16 PM [facility] AST (SGOT) 27 10 - 42 unit/L LAB CHEMISTRY METHOD 05/26/2024 1:16 PM [facility] ALT (SGPT) 20 10 - 60 unit/L LAB CHEMISTRY METHOD 05/26/2024 1:16 PM [facility] Alkaline Phosphatase 139(H) 42 - 121 unit/L LAB CHEMISTRY METHOD 05/26/2024 1:16 PM [facility] Total Protein 6.0 6.0 - 8.0 g/dL LAB CHEMISTRY METHOD 05/26/2024 1:16 PM [facility] Albumin 2.3(L) 3.2 - 5.0 g/dL LAB CHEMISTRY METHOD 05/26/2024 1:16 PM [facility] Total Bilirubin 3.2(H) 0.0 - 1.4 mg/dL LAB CHEMISTRY METHOD 05/26/2024 1:16 PM [facility] Blood Venous blood specimen / Unknown Venipuncture / Unknown 05/26/2024 6:59 AM EST 05/26/2024 10:29 AM EST Gerry Barksdale LAB BLOOD ORDERABLES Final Resul t [facility] [address] [place] [address], * (ABNORMAL) Complete blood count (05/26/2024 6:59 AM EST) WBC 7.6 4.8 - 10.8 K/mcL LAB HEMETOLOGY METHOD 05/26/2024 11:18 AM [facility] RBC 3.50(L) 4.50 - 5.50 M/mcL LAB HEMETOLOGY METHOD 05/26/2024 11:18 AM [facility] Hemoglobin 12.2(L) 13.5 - 17.5 g/dL LAB HEMETOLOGY METHOD 05/26/2024 11:18 AM [facility] Hematocrit 35.5(L) 42.0 - 54.0 % LAB HEMETOLOGY METHOD 05/26/2024 11:18 AM [facility] MCV 100.6(H) 79.0 - 98.0 FL LAB HEMETOLOGY METHOD 05/26/2024 11:18 AM [facility] MCH 34.6(H) 27.0 - 32.0 pcg LAB HEMETOLOGY METHOD 05/26/2024 11:18 AM [facility] MCHC 34.4 32.0 - 37.0 g/dL LAB HEMETOLOGY METHOD 05/26/2024 11:18 AM [facility] RDW 15.9(H) 11.0 - 15.0 % LAB HEMETOLOGY METHOD 05/26/2024 11:18 AM EST [facility] Platelets 139 130 - 400 K/mcL LAB HEMETOLOGY METHOD 05/26/2024 11:18 AM EST [facility] MPV 10.8 7.0 - 11.0 FL LAB HEMETOLOGY METHOD 05/26/2024 11:18 AM EST [facility] NRBC 0.0 <1.0 % LAB HEMETOLOGY METHOD 05/26/2024 11:18 AM EST [facility] NRBC Absolute 0.00 <0.10 K/mcL LAB HEMETOLOGY METHOD 05/26/2024 11:18 AM [facility] Blood Venous blood specimen / Unknown Venipuncture / Unknown 05/26/2024 6:59 AM EST 05/26/2024 10:29 AM EST us Gerry Barksdale LAB BLOOD ORDERABLES Final Resul t [facility] [address] [place] [address], documented in this encounter Visit Diagnoses Diagnosis Weakness Other malaise and fatigue Urinary tract infection, site not specified documented in this encounter Care Teams Air Traffic Supervisor Relationship Specialty Start Date End Date Dalia Harmon PA [address] [place] [address], [address] [place] [address] PCP - General 05/10/24 documented as of this encounter
--- OUTSIDE RECORDS SUMMARY | 2024-08-20 12:37 | XMS_ITS | Encounter Summary ---
Author Organization [facility] Address [address] [place] [address] Care Team Providers Care Financial Risk Manager Name Role Phone Dalia Harmon Primary Care Provider [phone] Encounter Details Date Type Department Care Team (Late st Contact Info) Description 06/04/2024 Lab Requisition [facility] - Main Lab 299 [facility] [place] [phone] Gerry Barksdale 795 [facility] [address] [place] [address] Sepsis, unspecified organism (CMS/HCC V24, [...] 9:10 AM EDT Office Visit Gastroenterology - [place] [address] [facility] [address] [place] [address] Han Sloan DO [address] [facility] [address] [place] [address] 09/06/2024 9:15 AM EDT Clinical Support [facility] [address] [place] [address] documented as of this encounter Procedures Procedure Name Priority Date/Time Associated Diagnosis Comments COMPLETE BLOOD COUNT Routine 06/07/2024 10:48 AM EST Sepsis, unspecified organism (CMS/HCC) BASIC METABOLIC PANEL Routine 06/07/2024 10:48 AM EST Sepsis, unspecified organism ([facility]/HCC) documented in this encounter Results * (ABNORMAL) Basic metabolic panel (06/07/2024 10:48 AM EST) Sodium 137 133 - 145 mmol/L LAB CHEMISTRY METHOD 06/07/2024 12:[address] [facility] Potassium 3.6 3.5 - 5.5 mmol/L LAB CHEMISTRY METHOD 06/07/2024 12:[address] [facility] Chloride 103 96 - 110 mmol/L LAB CHEMISTRY METHOD 06/07/2024 12:[address] [facility] CO2 25 21 - 32 mmol/L LAB CHEMISTRY METHOD 06/07/2024 12:[address] [facility] Anion Gap 9 3 - 11 LAB CHEMISTRY METHOD 06/07/2024 12:[address] [facility] Glucose 142(H) 70 - 100 mg/dL LAB CHEMISTRY METHOD 06/07/2024 12:[address] [facility] BUN 9 5 - 25 mg/dL LAB CHEMISTRY METHOD 06/07/2024 12:[address] [facility] Creatinine 0.58(L) 0.70 - 1.30 mg/dL LAB CHEMISTRY METHOD 06/07/2024 12:53 PM EST [facility] eGFR 108 >=60 mL/min/1. 73m2 LAB CHEMISTRY METHOD 06/07/2024 12:[address] [facility] Comment:Calculation based on the??Chronic Kidney Disease Epidemiology Collaboration (CKD-EPI) equation refit??without adjustment for race. BUN/Creatinine Ratio 15.5 LAB CHEMISTRY METHOD 06/07/2024 12:[address] [facility] Calcium 8.0(L) 8.5 - 10.5 mg/dL LAB CHEMISTRY METHOD 06/07/2024 12:[address] [facility] Blood Venous blood specimen / Unknown Venipuncture / Unknown 06/07/2024 10:48 AM EST 06/07/2024 12:01 PM EST Gerry Barksdale LAB BLOOD ORDERABLES Final Resul t [facility] [address] [place] [address], * (ABNORMAL) Complete blood count (06/07/2024 10:48 AM EST) WBC 4.4(L) 4.8 - 10.8 K/mcL LAB HEMETOLOGY METHOD 06/07/2024 1:[address] [facility] RBC 3.40(L) 4.50 - 5.50 M/mcL LAB HEMETOLOGY METHOD 06/07/2024 1:[address] [facility] Hemoglobin 12.0(L) 13.5 - 17.5 g/dL LAB HEMETOLOGY METHOD 06/07/2024 1:[address] [facility] Hematocrit 36.4(L) 42.0 - 54.0 % LAB HEMETOLOGY METHOD 06/07/2024 1:[address] [facility] MCV 105.8(H) 79.0 - 98.0 FL LAB HEMETOLOGY METHOD 06/07/2024 1:06 PM EST [facility] MCH 34.9(H) 27.0 - 32.0 pcg LAB HEMETOLOGY METHOD 06/07/2024 1:[address] [facility] MCHC 33.0 32.0 - 37.0 g/dL LAB HEMETOLOGY METHOD 06/07/2024 1:[address] [facility] RDW 18.0(H) 11.0 - 15.0 % LAB HEMETOLOGY METHOD 06/07/2024 1:[address] [facility] Platelets 108(L) 130 - 400 K/mcL LAB HEMETOLOGY METHOD 06/07/2024 1:[address] [facility] MPV 10.7 7.0 - 11.0 FL LAB HEMETOLOGY METHOD 06/07/2024 1:[address] [facility] NRBC 0.0 <1.0 % LAB HEMETOLOGY METHOD 06/07/2024 1:[address] [facility] NRBC Absolute 0.00 <0.10 K/mcL LAB HEMETOLOGY METHOD 06/07/2024 1:[address] [facility] Blood Venous blood specimen / Unknown Venipuncture / Unknown 06/07/2024 10:48 AM EST 06/07/2024 12:01 PM EST Gerry Barksdale LAB BLOOD ORDERABLES Final Resul t [facility] [address] [place] [address], documented in this encounter Visit Diagnoses Diagnosis Sepsis, unspecified organism (CMS/HCC V24, CMS/HCC V28) documented in this encounter Care Teams Financial Risk Manager Relationship Specialty Start Date End Date Dalia Harmon PA [address], [address] [place] [address] PCP - General 05/10/24 documented as of this encounter
--- OUTSIDE RECORDS SUMMARY | 2024-08-20 12:37 | XMS_ITS | Clinical Summary ---
Author Organization [facility] Address [address] [place] [address] Care Team Providers Care Roller Repairer Name Role Phone Dago Ferro MD Primary Care Provider [phone] Allergies No known active allergies Medications Medication [...] age to complete this topic Care Teams Roller Repairer Relationship Specialty Start Date End Date Dago Ferro MD PCP - General Internal Medicine 03/23/19
--- OUTSIDE RECORDS SUMMARY | 2024-08-20 12:37 | XMS_ITS | Encounter Summary ---
Author Organization [facility] Address [address] [place] [address] Care Team Providers Care Armor Reconnaissance Specialist Name Role Phone Dalia Harmon Primary Care Provider [phone] Encounter Details Date Type Department Care Team (Late st Contact Info) Description 05/28/2024 Lab Requisition [facility] - Main Lab 299 [facility] [place] [phone] Gerry Barksdale 7[address] [facility] [address] [place] [address] Sepsis, unspecified organism (CMS/HCC V24, [...] 9:10 AM EDT Office Visit Gastroenterology - [place] 175 [address] [facility] [address] [place] [address] Han Sloan DO [address] [facility] [address] [place] [address] 09/06/2024 9:15 AM EDT Clinical Support [facility] [address] [place] [address] documented as of this encounter Procedures Procedure Name Priority Date/Time Associated Diagnosis Comments COMPLETE BLOOD COUNT Routine 05/31/2024 8:09 AM EST Sepsis, unspecified organism (CMS/HCC) BASIC METABOLIC PANEL Routine 05/31/2024 8:09 AM EST Sepsis, unspecified organism ([facility]/HCC) documented in this encounter Results * (ABNORMAL) Basic metabolic panel (05/31/2024 8:09 AM EST) Sodium 135 133 - 145 mmol/L LAB CHEMISTRY METHOD 05/31/2024 10:57 AM [facility] Potassium 3.9 3.5 - 5.5 mmol/L LAB CHEMISTRY METHOD 05/31/2024 10:57 AM [facility] Chloride 101 96 - 110 mmol/L LAB CHEMISTRY METHOD 05/31/2024 10:57 AM [facility] CO2 29 21 - 32 mmol/L LAB CHEMISTRY METHOD 05/31/2024 10:57 AM [facility] Anion Gap 5 3 - 11 LAB CHEMISTRY METHOD 05/31/2024 10:57 AM [facility] Glucose 116(H) 70 - 100 mg/dL LAB CHEMISTRY METHOD 05/31/2024 10:57 AM [facility] BUN 12 5 - 25 mg/dL LAB CHEMISTRY METHOD 05/31/2024 10:57 AM [facility] Creatinine 0.47(L) 0.70 - 1.30 mg/dL LAB CHEMISTRY METHOD 05/31/2024 10:57 AM [facility] eGFR 115 >=60 mL/min/1. 73m2 LAB CHEMISTRY METHOD 05/31/2024 10:57 AM [facility] Comment:Calculation based on the??Chronic Kidney Disease Epidemiology Collaboration (CKD-EPI) equation refit??without adjustment for race. BUN/Creatinine Ratio 25.5 LAB CHEMISTRY METHOD 05/31/2024 10:57 AM [facility] Calcium 8.2(L) 8.5 - 10.5 mg/dL LAB CHEMISTRY METHOD 05/31/2024 10:57 AM [facility] Blood Venous blood specimen / Unknown Venipuncture / Unknown 05/31/2024 8:09 AM EST 05/31/2024 9:54 AM EST Gerry Barksdale LAB BLOOD ORDERABLES Final Resul t [facility] [address] [place] [address], * (ABNORMAL) Complete blood count (05/31/2024 8:09 AM EST) WBC 5.3 4.8 - 10.8 K/mcL LAB HEMETOLOGY METHOD 05/31/2024 10:28 AM [facility] RBC 3.50(L) 4.50 - 5.50 M/mcL LAB HEMETOLOGY METHOD 05/31/2024 10:28 AM [facility] Hemoglobin 11.8(L) 13.5 - 17.5 g/dL LAB HEMETOLOGY METHOD 05/31/2024 10:28 AM [facility] Hematocrit 36.4(L) 42.0 - 54.0 % LAB HEMETOLOGY METHOD 05/31/2024 10:28 AM [facility] MCV 105.5(H) 79.0 - 98.0 FL LAB HEMETOLOGY METHOD 05/31/2024 10:28 AM EST [facility] MCH 34.2(H) 27.0 - 32.0 pcg LAB HEMETOLOGY METHOD 05/31/2024 10:28 AM [facility] MCHC 32.4 32.0 - 37.0 g/dL LAB HEMETOLOGY METHOD 05/31/2024 10:28 AM [facility] RDW 17.1(H) 11.0 - 15.0 % LAB HEMETOLOGY METHOD 05/31/2024 10:28 AM [facility] Platelets 149 130 - 400 K/mcL LAB HEMETOLOGY METHOD 05/31/2024 10:28 AM [facility] MPV 10.5 7.0 - 11.0 FL LAB HEMETOLOGY METHOD 05/31/2024 10:28 AM [facility] NRBC 0.0 <1.0 % LAB HEMETOLOGY METHOD 05/31/2024 10:28 AM [facility] NRBC Absolute 0.00 <0.10 K/mcL LAB HEMETOLOGY METHOD 05/31/2024 10:28 AM [facility] Blood Venous blood specimen / Unknown Venipuncture / Unknown 05/31/2024 8:09 AM EST 05/31/2024 9:53 AM EST Gerry Barksdale LAB BLOOD ORDERABLES Final Resul t [facility] [address] [place] [address], documented in this encounter Visit Diagnoses Diagnosis Sepsis, unspecified organism (CMS/HCC V24, CMS/HCC V28) documented in this encounter Care Teams Armor Reconnaissance Specialist Relationship Specialty Start Date End Date Dalia Harmon PA [address] [facility], [address] [place] [address] PCP - General 1/20/25 documented as of this encounter
--- OUTSIDE RECORDS SUMMARY | 2024-08-20 12:37 | XMS_ITS | Encounter Summary ---
Author Organization [facility] Address [address] [place] [address] Care Team Providers Care Overlay Plastician Name Role Phone Dalia Harmon Primary Care Provider [phone] Encounter Details Date Type Department Care Team (Late st Contact Info) Description 03/04/[address] [facility] - Main Lab 299 [facility] [place] [address] Gerry Barksdale MD [address] [address] Vitamin D deficiency, unspecified; Type 2 diabetes [...] 9:10 AM EDT Office Visit Gastroenterology - [place] [address] [address] [facility] [address] [place] [address] Han Sloan DO [address] [place] [address] 09/06/2024 9:15 AM EDT Clinical Support [facility] [address] [place] [address] documented as of this encounter [...] ORDERABLES Final Re sult Performing Organization Address [facility] Co de Phone Number [facility] [address] [place] [address], [place] [phone] * Hemoglobin A1c (03/04/2024 9:21 AM EST) [facility] Hemoglobin A1C 4.7 <6.5 % LAB CHEMISTRY METHOD 03/04/2024 2:46 PM EST [facility] Mean Bld Glu Estim. 88 mg/dL LAB CHEMISTRY METHOD 03/04/2024 2:46 PM EST [facility] Blood Venous blood specimen / Unknown Venipuncture / Unknown 03/04/2024 9:21 AM EST 03/04/2024 11:40 AM EST us Gerry Barksdale MD LAB BLOOD ORDERABLES Final Re sult Performing Organization Address [facility] de Phone Number [facility] [address] [place] [address], [place] [phone] * (ABNORMAL) Vitamin B12 (03/04/2024 9:21 AM EST) [facility] Vitamin B-12 923(H) 250 - 900 pcg/mL LAB CHEMISTRY METHOD 03/04/2024 1:03 PM EST [facility] Blood Venous blood specimen / Unknown Venipuncture / Unknown 03/04/2024 9:21 AM EST 03/04/2024 11:40 AM EST us Gerry Barksdale MD LAB BLOOD ORDERABLES Final Re sult Performing Organization Address [facility]/ZIP Co de Phone Number [facility] [address] [place] [address], [place] [phone] * Folate (03/04/2024 9:21 AM EST) Folate 11.0 2.8 - 17.0 ng/ml LAB CHEMISTRY METHOD 03/04/2024 1:03 PM EST [facility] Blood Venous blood specimen / Unknown Venipuncture / Unknown 03/04/2024 9:21 AM EST 03/04/2024 11:40 AM EST Gerry Barksdale MD LAB BLOOD ORDERABLES Final Re sult Performing Organization Address [facility] Co de Phone Number [facility] [address] [place] [address], [place] [phone] * Thyroid stimulating hormone (03/04/2024 9:21 AM EST) TSH 3.12 0.40 - 4.00 mcIU/mL LAB CHEMISTRY METHOD 03/04/2024 12:40 PM EST [facility] Blood Venous blood specimen / Unknown Venipuncture / Unknown 03/04/2024 9:21 AM EST 03/04/2024 11:40 AM EST us Gerry Barksdale MD LAB BLOOD ORDERABLES Final Re sult Performing Organization Address City/[facility]/ZIP Co de Phone Number [facility] [address] [place] [address], [place] [phone] * (ABNORMAL) Comprehensive metabolic panel (03/04/2024 9:21 AM EST) Sodium 137 133 - 145 mmol/L LAB CHEMISTRY METHOD 03/04/2024 1:03 PM EST [facility] Potassium 4.2 3.5 - 5.5 mmol/L LAB CHEMISTRY METHOD 03/04/2024 1:03 PM [facility] Chloride 100 96 - 110 mmol/L LAB CHEMISTRY METHOD 03/04/2024 1:03 PM [facility] CO2 29 21 - 32 mmol/L LAB CHEMISTRY METHOD 03/04/2024 1:03 PM [facility] Anion Gap 8 3 - 11 LAB CHEMISTRY METHOD 03/04/2024 1:03 PM [facility] Glucose 217(H) 70 - 100 mg/dL LAB CHEMISTRY METHOD 03/04/2024 1:03 PM [facility] BUN 18 5 - 25 mg/dL LAB CHEMISTRY METHOD 03/04/2024 1:03 PM [facility] Creatinine 0.64(L) 0.70 - 1.30 mg/dL LAB CHEMISTRY METHOD 03/04/2024 1:03 PM [facility] eGFR 104 >=60 mL/min/1. 73m2 LAB CHEMISTRY METHOD 03/04/2024 1:03 PM [facility] Comment:Calculation based on the??Chronic Kidney Disease Epidemiology Collaboration (CKD-EPI) equation refit??without adjustment for race. BUN/Creatinine Ratio 28.1 LAB CHEMISTRY METHOD 03/04/2024 1:03 PM [facility] Calcium 8.5 8.5 - 10.5 mg/dL LAB CHEMISTRY METHOD 03/04/2024 1:03 PM [facility] AST (SGOT) 38 10 - 42 unit/L LAB CHEMISTRY METHOD 03/04/2024 1:03 PM [facility] ALT (SGPT) 25 10 - 60 unit/L LAB CHEMISTRY METHOD 03/04/2024 1:03 PM [facility] Alkaline Phosphatase 136(H) 42 - 121 unit/L LAB CHEMISTRY METHOD 03/04/2024 1:03 PM [facility] Total Protein 5.7(L) 6.0 - 8.0 g/dL LAB CHEMISTRY METHOD 03/04/2024 1:03 PM [facility] Albumin 2.6(L) 3.2 - 5.0 g/dL LAB CHEMISTRY METHOD 03/04/2024 1:03 PM [facility] Total Bilirubin 2.8(H) 0.0 - 1.4 mg/dL LAB CHEMISTRY METHOD 03/04/2024 1:03 PM [facility] Blood Venous blood specimen / Unknown Venipuncture / Unknown 03/04/2024 9:21 AM EST 03/04/2024 11:40 AM EST us Gerry Barksdale MD LAB BLOOD ORDERABLES Final Re sult [facility] [address] [place] [address], * (ABNORMAL) Complete blood count (03/04/2024 9:21 AM EST) WBC 4.5(L) 4.8 - 10.8 K/mcL LAB HEMETOLOGY METHOD 03/04/2024 11:58 AM [facility] RBC 3.90(L) 4.50 - 5.50 M/mcL LAB HEMETOLOGY METHOD 03/04/2024 11:58 AM [facility] Hemoglobin 13.6 13.5 - 17.5 g/dL LAB HEMETOLOGY METHOD 03/04/2024 11:58 AM [facility] Hematocrit 40.7(L) 42.0 - 54.0 % LAB HEMETOLOGY METHOD 03/04/2024 11:58 AM [facility] MCV 104.4(H) 79.0 - 98.0 FL LAB HEMETOLOGY METHOD 03/04/2024 11:58 AM [facility] MCH 34.9(H) 27.0 - 32.0 pcg LAB HEMETOLOGY METHOD 03/04/2024 11:58 AM EST [facility] MCHC 33.4 32.0 - 37.0 g/dL LAB HEMETOLOGY METHOD 03/04/2024 11:58 AM [facility] RDW 14.3 11.0 - 15.0 % LAB HEMETOLOGY METHOD 03/04/2024 11:58 AM [facility] Platelets 101(L) 130 - 400 K/mcL LAB HEMETOLOGY METHOD 03/04/2024 11:58 AM [facility] MPV 11.0 7.0 - 11.0 FL LAB HEMETOLOGY METHOD 03/04/2024 11:58 AM [facility] NRBC 0.0 <1.0 % LAB HEMETOLOGY METHOD 03/04/2024 11:58 AM [facility] NRBC Absolute 0.00 <0.10 K/mcL LAB HEMETOLOGY METHOD 03/04/2024 11:58 AM [facility] Blood Venous blood specimen / Unknown Venipuncture / Unknown 03/04/2024 9:21 AM EST 03/04/2024 11:40 AM EST Gerry Barksdale MD LAB BLOOD ORDERABLES Final Re sult [facility] [address] [place] [address], documented in this encounter Visit Diagnoses Diagnosis Vitamin D deficiency, unspecified Type 2 diabetes mellitus without complications (CMS/HCC V24, CMS/HCC V28) Essential (primary) hypertension Unspecified essential hypertension documented in this encounter Care Teams Overlay Plastician Relationship Specialty Start Date End Date Dalia Harmon PA [address] [place] [address], [address] [place] [address] PCP - General 05/10/24 documented as of this encounter
--- OUTSIDE RECORDS SUMMARY | 2024-08-20 12:37 | XMS_ITS | Encounter Summary ---
Author Organization [facility] Address [address] [place] [address] Care Team Providers Care Dressage Instructor Name Role Phone Dalia Harmon Primary Care Provider Encounter Details Date Type Department Care Team (Late Contact Info) Description 03/05/2024 Lab Requisition [facility] - Main Lab 299 [facility] [place] [address] Gerry Barksdale MD 8[address] [facility] 1 [place] [address] Essential (primary) hypertension Social History Tobacco Use [...] 9:10 AM EDT Office Visit Gastroenterology - [place] [address] [facility] [address] [place] [address] Han Sloan DO [address] [facility] 200 [place] [address] 09/06/2024 9:15 AM EDT Clinical Support [facility] [address] [place] [phone] documented as of this encounter Procedures Procedure [...] sult [facility] [address] [place] [address], * (ABNORMAL) Complete blood count (03/08/2024 9:48 [...] PM EST [facility] RDW 14.7 11.0 - 15.0 % LAB HEMETOLOGY METHOD 03/08/2024 12:[address] [facility] Platelets 102(L) 130 - 400 K/mcL LAB HEMETOLOGY METHOD 03/08/2024 12:55 PM EST [facility] MPV 11.3(H) 7.0 [...] [facility] [address] [place] [address], documented in this encounter Visit Diagnoses Diagnosis Essential (primary) hypertension Unspecified essential hypertension documented in this encounter Care Teams Dressage Instructor Relationship Specialty Start Date End Date Dalia Harmon PA [address], [address] [place] [address] PCP - General 05/10/24 documented as of this encounter
--- OUTSIDE RECORDS SUMMARY | 2024-08-20 12:37 | XMS_ITS | Encounter Summary ---
Author Organization [facility] Address [address] [place] [address] Care Team Providers Care Garage Door Service Technician Name Role Phone Dalia Harmon Primary Care Provider [phone] Encounter Details Date Type Department Care Team (Late st Contact Info) Description 06/18/2024 Lab Requisition [facility] - Main Lab 299 [facility] [place] [phone] Gerry Barksdale 7[address] [facility] [address] [place] [address] Sepsis, unspecified organism (CMS/HCC V24, [...] 9:10 AM EDT Office Visit Gastroenterology - [place] 175 [facility] 175 [facility] [address] [place] [phone] Han Sloan DO [address] [address] 09/06/2024 9:15 AM EDT Clinical Support [facility] [address] [place] [address] documented as of this encounter Visit Diagnoses Diagnosis Sepsis, unspecified organism (CMS/HCC V24, CMS/HCC V28) documented in this encounter Care Teams Garage Door Service Technician Relationship Specialty Start Date End Date Dalia Harmon PA [address] [place] [address], [address] [place] [address] PCP - General 05/10/24 documented as of this encounter
--- OUTSIDE RECORDS SUMMARY | 2024-08-20 12:37 | XMS_ITS | Encounter Summary ---
Author Organization [facility] Address [address] [place] [address] Care Team Providers Care Granite Worker Name Role Phone Dalia Harmon Primary Care Provider [phone] Encounter Details Date Type Department Care Team (Late st Contact Info) Description 03/12/2024 Lab Requisition [facility] - Main Lab 299 [facility] [phone] Gerry Barksdale 795 [facility] [address] [place] [address] Essential (primary) hypertension Social History [...] 9:10 AM EDT Office Visit Gastroenterology - [place] [address] [facility] [address] [place] [phone] Han Sloan DO 175 [facility] [address] [place] [address] 09/06/2024 9:15 AM EDT Clinical Support [facility] [address] [place] [phone] documented as of this encounter Visit Diagnoses Diagnosis Essential (primary) hypertension Unspecified essential hypertension documented in this encounter Care Teams Granite Worker Relationship Specialty Start Date End Date Dalia Harmon PA [address] [place] [address], [address] [place] [address] PCP - General 05/10/24 documented as of this encounter
== END 2024-08-20 12:22 | disposition home or self-care (01) ==
LOC: HO.HUSH 11:40
PROVIDERS: Visit Provider Urology
DX: R33.9 Retention of urine, unspecified (principal)
CPT/HCPCS: 99213

== ENCOUNTER → 2024-08-20 11:39 | Outpatient (BNVA) | payer OTHER, SELFPAY | PROVIDERS: Visit Provider Urology | DX: R33.9 Retention of urine, unspecified (principal) | CPT/HCPCS: 99212 ==

== ENCOUNTER 2024-08-26 09:17 | Outpatient (AMB) | payer OTHER, SELFPAY ==
[2024-08-26 09:26] VITALS: BP 125/59; PULSE 98; RESP 16; O2SAT 97; BMI 49.4
--- NOTE | 2024-08-26 09:26 | MHC.OFFVIS ---
Vital Signs 08/26/24 09:26 Height 5 ft 6 in Weight 306 lb BMI 49.4 BP 125/59 L Blood Pressure Location Lt brachial Position Sitting Respiration 16 Pulse 98 Pulse Source Pulse Oximeter Pulse Oximetry (%) 97 Oxygen Delivery Method Room Air Intake Visit Reasons: Pill Count Intake Note: Pt states he last took oxy 08/26/24 @ 7am Neuroscience Director Na Required: No Allergies nystatin Adverse Reaction (Mild, Verified 08/26/24 09:27) swelling atorvastatin Adverse Reaction (Verified 08/26/24 09:27) Diarrhea Medication List - Last Reconciled 08/26/24 by Mague Sr LPN albuterol sulfate 90 mcg/actuation 2 puffs inhalation Q4-6H PRN 60 days albuterol sulfate 2.5 mg (0.5 mL) inhalation Q20M apixaban (Eliquis) 5 mg PO BID blood sugar diagnostic (FreeStyle Lite Strips) As directed 2 times per day blood-glucose meter (FreeStyle Lite Meter kit) As directed cholecalciferol (vitamin D3) (Vitamin D3) 50 mcg PO DAILY clotrimazole 1% 1 appl topical BID furosemide 40 mg PO DAILY lancets (FreeStyle Lancets) As directed 2 times per day naloxone 4 mg/actuation 4 mg intranasal Q2M PRN 1 day nebulizers (Aeroneb Go Nebulizer) As directed oxybutynin chloride ER 5 mg PO DAILY 30 days oxycodone 10 mg PO Q4H PRN 30 days [power wheelchair As directed] rosuvastatin (Crestor) 5 mg PO DAILY spironolactone 100 mg PO BID tamsulosin 0.4 mg PO DAILY walker Folding Front wheeled walker [weigh scale As directed] zolpidem 10 mg PO BEDTIME PRN HPI Comments Details: Jonny is back in my office today for the pill count and pain medication refill. He presented today with 20 pills in his possession. He supposed to have no pills in his possession. he has a script in the pharmacy waiting for him to bean picker today for 180 pills. I will not be prescribing him anything today in his possession will be 200 pills. Next time he is in my office for the appointment we will count pills from the amount of 200 pills starting from today 08/26/2024. He went to see Dr. Fischer and his urinary catheter was changed. He also had ultrasound of his TIPS device with the adjustment of the flow. Prior: c/o chronic debilitating 12/29 to 01/28 pain syndrome. left hip avascular necrosis and severe arthritis as well as postlaminectomy syndrome of the lumbar spine. He is here with the intention to start chronic opioid therapy in this office however he is interested in interventional pain management. The assessment was performed today, he is currently on rather elevated doses of the opioid medications. I explained to him that I will not be able to prescribe 60 mg of continuous oxycodone and 10 mg of oxycodone p.r.n. on demand I would have to taper these dose down to more acceptable levels. His PHQ-9 score is equal to 8. The opioid addiction risk score is equal to 21. Total score is equal to 29. Pill count regular and random as well as UDS regular and random were carefully explained to the patient with all the implications on his personal life. Therefore he is high-risk for opioid addiction. 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 prescription opiate use No natural teeth Back pain Back pain Arthritis Fatty liver History of cirrhosis of liver Avascular necrosis Hemochromatosis COPD (chronic obstructive pulmonary disease) NICOLE on CPAP Surgical History H/O transjugular intrahepatic portosystemic shunt Hx of esophagogastroduodenoscopy Hx of colonoscopy [place] teeth extracted History of surgery History of back surgery (~1997) H/O discectomy (~1997) Family History Maternal Grandfather Heart attack Brother Heart attack Social History Household Members: None Housing: Apartment Are you a primary caregiver services home to a significant other at home: No Do you presently have visiting nurse or other home services: Yes ([employer] 37.5 hours M-F, 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) 75 years or older and lives alone: No Patient Tobacco Use Status: Former Tobacco user Tobacco use type: Cigarette e-Cigarette/Vaping Use: Never Used Second Hand Smoke Exposure: Yes Substance Use Type: Marijuana service: No Current occupational status: unemployed Gender identity: Male Cognitive needs: No Hearing needs: No Vision needs: No Review of Systems Const All systems reviewed & are unremarkable except as noted in HPI and below Physical Exam Vital Signs: Last Vital Signs Pulse 98 08/26/24 09:26 Resp 16 08/26/24 09:26 BP 125/59 L 08/26/24 09:26 Pulse Ox 97 08/26/24 09:26 Oxygen Delivery Method Room Air 08/26/24 09:26 BMI result Body Mass Index 49.4 Const General: cooperative, no acute distress and tired appearing; No healthy appearing Nutritional Appearance: obese and other (Icteric) Limitations: physical limitations Eyes General: appearance normal, both eyes and all related structures Chest Chest palpation & inspection: normal inspection of the chest Resp Effort & Inspection: normal respiratory effort, able to speak in complete sentences, normal respiratory pattern, no audible wheezes, no cough, respiratory effort not decreased and no grunting Cardio Jugular venous distension: no JVD GI Inspection: Yes distended and Yes caput medusae present Other: indwelling Cuello catheter General: Yes no CVA tenderness Back/Spine/Pelvis Back: no CVA tenderness Cervical Spine: loss of normal cervical lordosis, cervical muscular tenderness, pain with cervical ROM and No Cervical spine tenderness Thoracic/Lumbar Spine: thoracic and lumbar spine normal to inspection, Thoracic/lumbar spine scar(s), Lasegue's sign negative, straight leg raise negative bilaterally, pain with thoraco-lumbar ROM, thoraco-lumbar ROM limited, No thoracic spinal tenderness and lumbar spinal tenderness (L4-S1) Sacroiliac joints: bilaterally tender to palpation Extrem General: Yes no calf tenderness, No cyanosis and Yes edema (BLE +1-+2 nonpitting edema) Left lower extremity: hip/thigh (limited ROM due to pain and body habitus. +groin pain with I/E rotations) Details: tenderness Location: of the hip Location: posterolaterally and over the great trochanter and crepitus; no swelling, no ecchymosis and no unusual warmth Psych Appearance: grossly normal Mental Status: mental status grossly normal Speech and movement: Normal speech and movement present Affect: Anxious affect present Insight: Good insight present (Psych) Judgement: Good judgement present (Psych) Assessment & Plan Assessment & Plan (1) Ascites: Code(s): R18.8 - Other ascites Category: Medical (2) Liver cirrhosis: Code(s): K74.60 - Unspecified cirrhosis of liver Category: Medical (3) Hematuria: Code(s): R31.9 - Hematuria, unspecified Category: Medical (4) Lumbar post-laminectomy syndrome: Code(s): M96.1 - Postlaminectomy syndrome, not elsewhere classified Category: Medical (5) Chronic pain syndrome: Code(s): G89.4 - Chronic pain syndrome Category: Medical (6) Avascular necrosis of bone of left hip: Code(s): M87.052 - Idiopathic aseptic necrosis of left femur Category: Medical (7) Osteoarthritis, hip, bilateral: Code(s): M16.0 - Bilateral primary osteoarthritis of hip Category: Medical Plan Today 08/26/2024 HE WILL RECEIVE 180 PILLS TODAY and he has another 20 pills in his possession. Next time he is in the office we will start counting from 200 pills. I will see him in 1 month. We will continue observation of this patient. He is suffering from liver cirrhosis and he has a sinus. He also suffering from severe arthritis of the bilateral hip joints with severe pain syndrome., he is on chronic opioid therapy. He denies side effects of the opioids. He denies constipation. Unfortunately it is very impractical with his terminal conditions to send him to physical therapy. He was prescribed Narcan on 02/25/2024. Narcan was described and explained to him at that time. Coding Level of Care Code Est Pt Level 3 (72622) Diagnoses Ascites R18.8 Liver cirrhosis K74.60 Hematuria R31.9 Lumbar post-laminectomy syndrome M96.1 Chronic pain syndrome G89.4 Avascular necrosis of bone of left hip M87.052 Osteoarthritis, hip, bilateral M16.0
--- OUTSIDE RECORDS SUMMARY | 2024-08-26 09:54 | XMS_ITS | Encounter Summary ---
Author Organization [facility] Address [address] [place] [address] Care Team Providers Care Drafting Teacher Name Role Phone Dalia Harmon Primary Care Provider [phone] Encounter Details Date Type Department Care Team (Late st Contact Info) Description 06/04/2024 Lab Requisition [facility] - Main Lab [address] [facility] [place] [phone] Gerry Barksdale [address] [facility] [address] [place] [address] Sepsis, unspecified organism (CMS/HCC V24, [...] 9:10 AM EDT Office Visit Gastroenterology - [place] [address] [place] [address] Han Sloan DO [address] [place] [address] 09/06/2024 9:15 AM EDT Clinical Support [facility] [address] [place] [address] documented as of this encounter Procedures Procedure Name Priority Date/Time Associated Diagnosis Comments COMPLETE BLOOD COUNT Routine 06/07/2024 10:48 AM EST Sepsis, unspecified organism (CMS/HCC) BASIC METABOLIC PANEL Routine 06/07/2024 10:48 AM EST Sepsis, unspecified organism ([facility]/HCC) documented in this encounter Results * (ABNORMAL) Basic metabolic panel (06/07/2024 10:48 AM EST) Sodium 137 133 - 145 mmol/L LAB CHEMISTRY METHOD 06/07/2024 12:53 PM [facility] Potassium 3.6 3.5 - 5.5 mmol/L LAB CHEMISTRY METHOD 06/07/2024 12:53 PM [facility] Chloride 103 96 - 110 mmol/L LAB CHEMISTRY METHOD 06/07/2024 12:53 PM [facility] CO2 25 21 - 32 mmol/L LAB CHEMISTRY METHOD 06/07/2024 12:53 PM [facility] Anion Gap 9 3 - 11 LAB CHEMISTRY METHOD 06/07/2024 12:53 PM [facility] Glucose 142(H) 70 - 100 mg/dL LAB CHEMISTRY METHOD 06/07/2024 12:53 PM [facility] BUN 9 5 - 25 mg/dL LAB CHEMISTRY METHOD 06/07/2024 12:53 PM [facility] Creatinine 0.58(L) 0.70 - 1.30 mg/dL LAB CHEMISTRY METHOD 06/07/2024 12:53 PM EST [facility] eGFR 108 >=60 mL/min/1. 73m2 LAB CHEMISTRY METHOD 06/07/2024 12:53 PM [facility] Comment:Calculation based on the??Chronic Kidney Disease Epidemiology Collaboration (CKD-EPI) equation refit??without adjustment for race. BUN/Creatinine Ratio 15.5 LAB CHEMISTRY METHOD 06/07/2024 12:53 PM [facility] Calcium 8.0(L) 8.5 - 10.5 mg/dL LAB CHEMISTRY METHOD 06/07/2024 12:53 PM [facility] Blood Venous blood specimen / Unknown Venipuncture / Unknown 06/07/2024 10:48 AM EST 06/07/2024 12:01 PM EST Gerry Barksdale LAB BLOOD ORDERABLES Final Resul t [facility] [address] [place] [address], * (ABNORMAL) Complete blood count (06/07/2024 10:48 AM EST) WBC 4.4(L) 4.8 - 10.8 K/mcL LAB HEMETOLOGY METHOD 06/07/2024 1:06 PM [facility] RBC 3.40(L) 4.50 - 5.50 M/mcL LAB HEMETOLOGY METHOD 06/07/2024 1:06 PM [facility] Hemoglobin 12.0(L) 13.5 - 17.5 g/dL LAB HEMETOLOGY METHOD 06/07/2024 1:06 PM [facility] Hematocrit 36.4(L) 42.0 - 54.0 % LAB HEMETOLOGY METHOD 06/07/2024 1:06 PM [facility] MCV 105.8(H) 79.0 - 98.0 FL LAB HEMETOLOGY METHOD 06/07/2024 1:06 PM EST [facility] MCH 34.9(H) 27.0 - 32.0 pcg LAB HEMETOLOGY METHOD 06/07/2024 1:06 PM [facility] MCHC 33.0 32.0 - 37.0 g/dL LAB HEMETOLOGY METHOD 06/07/2024 1:06 PM [facility] RDW 18.0(H) 11.0 - 15.0 % LAB HEMETOLOGY METHOD 06/07/2024 1:06 PM [facility] Platelets 108(L) 130 - 400 K/mcL LAB HEMETOLOGY METHOD 06/07/2024 1:06 PM [facility] MPV 10.7 7.0 - 11.0 FL LAB HEMETOLOGY METHOD 06/07/2024 1:06 PM [facility] NRBC 0.0 <1.0 % LAB HEMETOLOGY METHOD 06/07/2024 1:06 PM [facility] NRBC Absolute 0.00 <0.10 K/mcL LAB HEMETOLOGY METHOD 06/07/2024 1:06 PM [facility] Blood Venous blood specimen / Unknown Venipuncture / Unknown 06/07/2024 10:48 AM EST 06/07/2024 12:01 PM EST Gerry Barksdale LAB BLOOD ORDERABLES Final Resul t [facility] [address] [place] [address], documented in this encounter Visit Diagnoses Diagnosis Sepsis, unspecified organism (CMS/HCC V24, CMS/HCC V28) documented in this encounter Care Teams Drafting Teacher Relationship Specialty Start Date End Date Dalia Harmon PA [address], [address] [place] [address] PCP - General 05/10/24 documented as of this encounter
--- OUTSIDE RECORDS SUMMARY | 2024-08-26 09:54 | XMS_ITS | Encounter Summary ---
Author Organization [facility] Address [address] [place] [address] Care Team Providers Care Corporate Vp Advertising & Online Name Role Phone Dalia Harmon Primary Care Provider [phone] Encounter Details Date Type Department Care Team (Late st Contact Info) Description 06/18/2024 Lab Requisition [facility] - Main Lab [address] [facility] [place] [phone] Gerry Barksdale [address] [facility] [phone] [place] [address] Sepsis, unspecified organism (CMS/HCC V24, CMS/[facility] V28) Social History Tobacco Use Types Packs/Day [...] AM EDT Office Visit Gastroenterology - [place] [address] [facility] 175 [facility] [address] [place] [phone] Han Sloan DO [address] [address] 09/06/2024 9:15 AM EDT Clinical Support [facility] [address] [place] [address] documented as of this encounter Visit Diagnoses Diagnosis Sepsis, unspecified organism (CMS/HCC V24, CMS/HCC V28) documented in this encounter Care Teams Corporate Vp Advertising & Online Relationship Specialty Start Date End Date Dalia Harmon PA [address] [place] [address], [address] [place] [address] PCP - General 05/10/24 documented as of this encounter
--- OUTSIDE RECORDS SUMMARY | 2024-08-26 09:54 | XMS_ITS | Encounter Summary ---
Author Organization [facility] Address [address] [place] [address] Care Team Providers Care Hose Builder Name Role Phone Dalia Harmon Primary Care Provider Encounter Details Date Type Department Care Team (Late st Contact Info) Description 05/28/[address] [facility] - Main Lab [address] [facility] [place] [phone] Gerry Barksdale [address] [facility] [phone] [place] [address] Sepsis, unspecified organism (CMS/HCC V24, [...] 9:10 AM EDT Office Visit Gastroenterology - [place] [address] [facility] [address] [place] [address] Han Sloan DO [address] [facility] [address] [place] [address] 09/06/2024 9:15 AM EDT Clinical Support [facility] [address] [place] [address] documented as of this encounter Procedures Procedure Name Priority Date/Time Associated Diagnosis Comments COMPLETE BLOOD COUNT Routine 05/31/2024 8:09 AM EST Sepsis, unspecified organism (CMS/HCC) BASIC METABOLIC PANEL Routine 05/31/2024 8:09 AM EST Sepsis, unspecified organism ([facility]/HCC) documented in this encounter Results * [...] 73m2 LAB CHEMISTRY METHOD 05/31/2024 10:57 AM [facility] Comment:Calculation based [...] t [facility] [address] [place] [address], * (ABNORMAL) Complete blood count (05/31/2024 8:09 [...] AM EST [facility] MCH 34.2(H) 27.0 - 32.0 pcg LAB HEMETOLOGY METHOD 05/31/2024 10:28 AM [facility] MCHC 32.4 32.0 - 37.0 g/dL LAB HEMETOLOGY METHOD 05/31/2024 10:28 AM [facility] RDW 17.1(H) 11.0 - 15.0 % LAB HEMETOLOGY METHOD 05/31/2024 10:28 AM [facility] Platelets 149 130 - 400 K/mcL LAB HEMETOLOGY METHOD 05/31/2024 10:28 AM [facility] MPV 10.5 7.0 [...] [facility] [address] [place] [address], documented in this encounter Visit Diagnoses Diagnosis Sepsis, unspecified organism (CMS/HCC V24, CMS/HCC V28) documented in this encounter Care Teams Hose Builder Relationship Specialty Start Date End Date Dalia Harmon PA [address] [facility], [address] [place] [address] PCP - General 1/20/25 documented as of this encounter
--- OUTSIDE RECORDS SUMMARY | 2024-08-26 09:54 | XMS_ITS | Data Portability ---
Author Organization [facility] Address [address] [place] [address] Care Team Providers Care Wafer Production Worker Name Role Phone HIM [facility] OTHER [facility] Primary Care Provider Assessment Encounter Date Assessment Date Assessment LastModified by Organization Details LastModified Time 06/10/2024 06/10/2024 I have reviewed and agree with the assessment and plan as documented by the [employer]. I provided real-time medical direction for this encounter and was immediately available to provide additional phone-based assistance as needed. HPI: 64M presenting with malfunctioning catheter, leaking. No other symptoms noted. Was recently tested for UTI and was negative. VSS. Exam otherwise unremarkable per the [employer]. Able to reinsert catheter to have appropriate [...] in the field was performed by my [employer] colleague, as noted above, I provided real-time [...] Assessment and Plan as documented by the [employer] Contact Printer. Patient given the opportunity to ask questions. [...] related to the Alex catheter itself. Per [employer] on the scene, vital signs are stable patient is afebrile. Urine color in the bag is dark without sediment. Urine is present in Alex bag. per [employer] on the scene when he replaced the [...] Name and Address Organization Details Recorded Time 45609 semagluti de medicatio n Not available Not available Not available 03/18/2024 RxNorm Not Available [facility] - [facility] 4 18:27:38 56045 nystatin medicatio n Not available Not available Not available 06/10/2024 7597 RxNorm Not Available [facility] - [facility] 5 20:32:41 40225 codeine medicatio n Not available Not available [...] Address Organization Details Last Updated DateTime 5 437446. 28 g 97 % 97 % 16 /min 98.2 [degF] 86 /min 156 mm[Hg] 82 mm[Hg] Not Available [facility] 5 10:41:34 Date Recorded Body weight Body height Body temperature Oxygen saturation Oxygen saturation in Arterial blood by Pulse oximetry Respiratory rate Heart rate Systolic blood pressure Diastolic blood pressure Provider Name and Address Organization Details Last Updated DateTime 5 435982. 28 g 167.64 cm 98 [degF] 94 % 94 % 16 /min 87 /min 162 mm[Hg] 72 mm[Hg] Not Available [facility] - [facility] 5 18:57:19 Date Recorded Heart rate Oxygen saturation Oxygen saturation in Arterial blood by Pulse oximetry Body temperature Respiratory rate Systolic blood pressure Diastolic blood pressure Provider Name and Address Organization Details Last Updated DateTime 5 74 /min 96 % 96 % 97.9 [degF] 16 /min 118 mm[Hg] 62 mm[Hg] Not Available [facility] - [facility] 5 20:56:09 Date Recorded Body temperature Body height Oxygen saturation Oxygen saturation in Arterial blood by Pulse oximetry Heart rate Body weight Respiratory rate Systolic blood pressure Diastolic blood pressure Provider Name and Address Organization Details Last Updated DateTime 5 98.9 [degF] 165.1 cm 97 % 97 % 99 /min 764651. 584 g 20 /min 150 mm[Hg] 90 mm[Hg] Not Available [facility] - production 5 20:56:17 Date Recorded Body temperature Body weight Respiratory rate Heart rate Oxygen saturation Oxygen saturation in Arterial blood by Pulse oximetry Body height Systolic blood pressure Diastolic blood pressure Provider Name and Address Organization Details Last Updated DateTime 5 98.4 [degF] 764011. 968 g 16 /min 85 /min 98 % 98 % 165.1 cm 131 mm[Hg] 85 mm[Hg] Not Available [facility] - [facility] 5 16:52:32 Social History None recorded. Functional Status None recorded. Mental Status None recorded. Family History Nothing Reported. Medical History No medical history recorded. Past Encounters Encounter ID Performer Location Encounter Start Date Encounter Closed Date Diagnosis/Indication Diagnosis SNOMED-CT Code Diagnosis ICD10 Code Diagnosis Note [id number] Aleksandar Manning MD [facility] [address] [place] [phone] 03/16/2024 13:37:07 03/16/2024 16:05:19 Mechanical complication of urethral indwelling catheter 90373018 T83.098A [id number] Elvi Pereira MD Main - [facility] [address] [place] [phone] 03/18/2024 19:24:55 03/19/2024 15:31:31 Complication of urinary catheter 467821537 T83.9XXA [id number] Juan Antonio Bustillo MD Main - [facility] [address] [place] [id number] 04/23/2024 10:41:31 04/23/2024 16:17:35 Complication of urinary catheter 839331141 T83.9XXA As noted, we were called to see this patient regarding concerns of malpositio n of alex catheter Evaluation in the field was performed by my [employer] colleague, as noted above, I provided real-time direction and supervisio n for this visit. The evaluation revealed normal VS and simple disconnect ion, which the patient was not able to adequately visualize due to body habitus. Impression :Alex disconnect ion without any patient complicati ons Plan:Grant crawford [id number] Betsy Lopez MD Main - [facility] [address] [place] [phone] 04/25/2024 18:57:17 04/26/2024 00:18:55 Complication of urinary catheter 776275633 T83.9XXS As noted, we were called to see this patient regarding concerns of malfunctio vy urinary catheter. Evaluation in the field was performed by my [employer] colleague, as noted above, I provided real-time [...] of any new or worsening serious symptoms. [id number] Yasmeen Redmond MD Main - [facility] [address] [place] [phone] 06/10/2024 20:56:07 06/10/2024 21:35:04 Indwelling urethral urinary catheter in situ 687518416 Z96.0 [id number] FRANSISCO POLANCO MD Main - [facility] [address] [place] [phone] 06/11/2024 20:56:11 06/12/2024 09:25:59 Jovi hematuria 170149224 R31.0 [id number] Lauryn Klein MD Main - [facility] [address] [place] [id number] 0 08/09/2024 16:47:46 08/09/2024 23:26:28 Complication of urinary catheter 394980390 T83.9XXD R39.89 Health Concerns Section Related Observation LastModified by Organization Detai ls LastModified Time None Recorded Concern Status LastModified by Organization Details LastModified Time None Recorded Advance Directives Directive None Recorded Payers Insurance Date Sequence Insurance Name Policy Number Policy Pan Covered Member ID Pan Member ID Guarantor Name 08/09/2024 1 [facility] - DOS ON OR AFTER 2022 - DUAL ELIGIBLE - RETIREMENT OPTIONS AND ONE CARE (MEDICARE REPLACEMENT/ADV ANTAGE - HMO) Jonny Reed [id number] Jonny Reed Notes Date Note Type Note [...] PMH: Chronic Back Pain, Hypertension, Cirrhosis Comments: Wire Stockkeeper verified the name//address and phone number. Pt [...] ................... ................... ................... ................... ................... ................... ........ [employer] Contact Printer Note From Hussein Grossman: Pt co alex cath disconnection from bag tube. Pt got up and it fell off. Pay can not see th area due to obesity and was unsure what had happened. Pt denies pain. Pt sts urine is sti voiding from catheter. Pt has no other complaints. Alex reconnected without issue. Pt education on signs indicating the ER. [facility] contacted and advised of resolution. ................... ................... ................... ................... ................... ................... ................... ........ [facility] Consulted: Justin Bustillo ................... ................... ................... ................... ................... ................... ................... ........ Disposition: Fulfilled Juan Antonio Bustillo MD [address] [facility],[address], [place], [address], [facility] 04/23/2024 10:47:59 04/25/2024 text/html CRC Nurse Triage [...] PMH: Chronic Back Pain, Hypertension, Cirrhosis Comments: Wire Stockkeeper verified the Pt.'s name//address and phone number. [...] ................... ................... ................... ................... ................... ................... ........ [employer] Contact Printer Note From Marcellus Mauro: This 64-year-old male [...] ................... ................... ................... ................... ................... ................... ........ [facility] Consulted: Betsy Lopez ................... ................... ................... ................... ................... ................... ................... ........ Disposition: Barbara Lopez MD [address] [facility],[address], [place], [address], [employer]NE BROWN 04/25/2024 20:46:05 06/10/2024 text/html CRC Nurse Triage Notes (Elsie Sultana - RN): Reason For Request: pt has cathether leaking Chief Complaints: Urinary catheter/nephrostom y tube problems PMH: Chronic Back Pain, Hypertension, Cirrhosis PMH Reviewed at 06/10/2024:32 Allergies Reviewed at 06/10/2024 - :32 Comments: Patient reporting alex catheter is leaking [...] ................... ................... ................... ................... ................... ................... ........ [employer] Contact Printer Note From Harley Rodriguez: Dispatched to above [...] urine not obviously displaced, no active leaking. [facility] contacted, advised of patient complaints and exam findings. Catheter balloon drained 10ml sterile water, re-inflated, patient reported discomfort, catheter advanced and re-inflated without pain, urine moving in tubing, patient denies discomfort. [facility] advised of catheter troubleshooting, recommends home monitoring with follow up should leaking continue. Patient agrees with this plan. Patient has no additional questions or concerns at this time. SC8 clear. EOR. ................... ................... ................... ................... ................... ................... ................... ........ [facility] Consulted: Yasmeen Redmond ................... ................... ................... ................... ................... ................... ................... ........ Disposition: Fulfilled Yasmeen Redmond MD [address] [place] [address],[address], [place], [phone] 06/10/2024 21:28:25 06/11/2024 text/html CRC Nurse Triage Notes (Elsie Sultana - RN): Reason For Request: Patient has cath problems, Urine and blood in the back, problems all morning with it. Chief Complaints: Urinary catheter/nephrostom y tube problems PMH: Chronic Back Pain, Hypertension, Cirrhosis PMH Reviewed at 06/11/2024 - 18:22 Allergies Reviewed at 06/11/2024 - 18:22 Comments: Seen by [email or web address] yesterday for fole troubleshooting, catheter changed during [...] with worsening s/sx-NE FRANSISCO POLANCO MD [address] [place] [address],[address], [place], [address], [place] [facility] 06/11/2024 22:21:06 08/09/2024 text/html CRC Nurse Triage [...] Chronic Back Pain, Hypertension, CirrhosisPMH Reviewed at 08/09/2024:49Allergies Reviewed at 08/09/2024:49Comments: 64 y.o male Patient calling in to [...] ................... ................... ................... ................... ................... ................... ........ [employer] Contact Printer Note From Ashwin Cardozo: Dispatched to the home of a 64 year old male with a chief complaint of a clogged urinary catheter. Pt has had many catheters over the last few months, and after a procedure where they had him come off of Eliquis a blood clot had seemed to clog the cath. His EGG CASER had tried to flush it earlier today but it did not help. [facility] was consulted and wanted a full change out. Cath was removed and there was a large clot stuck in the end of it. A new 16 [place] was placed and urine started to flow again. Pt is just coming off antibiotics, and there was no sediment in the urine. Pt was relieved to have urine output again. Vitals in chart. ................... ................... ................... ................... ................... ................... ................... ........ [facility] Consulted: Lauryn Klein ................... ................... ................... ................... ................... ................... ................... ........ Disposition: Barbara Klein MD [address] [facility],[address], [place], [address], [place] ANNE AMADOR 08/09/2024 18:36:28
--- OUTSIDE RECORDS SUMMARY | 2024-08-26 09:54 | XMS_ITS | Encounter Summary ---
Author Organization [facility] Address [address] [place] [address] Care Team Providers Care Runner Man Name Role Phone Dalia Harmon Primary Care Provider [phone] Encounter Details Date Type Department Care Team (Late st Contact Info) Description 03/04/2024 Lab Requisition [facility] - Main Lab [address] [facility] [place] [address] Gerry Barksdale MD [address] [address] Vitamin D deficiency, unspecified; Type 2 diabetes [...] 9:10 AM EDT Office Visit Gastroenterology - [place] [address] [address] [place] [address] Han Sloan DO [address] [place] [address] 09/06/2024 9:15 AM EDT Clinical Support [facility] [address] [place] [address] documented as of this encounter [...] LAB CHEMISTRY METHOD 03/04/2024 12:40 PM EST [facility] Blood Venous blood specimen / Unknown Venipuncture / Unknown 03/04/2024 9:21 AM EST 03/04/2024 11:40 AM EST us Gerry Barksdale MD LAB BLOOD ORDERABLES Final Re sult Performing Organization Address [facility] Co de Phone Number [facility] [address] [place] [address], [place] [phone] * Hemoglobin A1c (03/04/2024 9:21 AM EST) [facility] Hemoglobin A1C 4.7 <6.5 % LAB CHEMISTRY [...] ORDERABLES Final Re sult Performing Organization Address [facility] de Phone Number [facility] [address] [place] [address], [place] [phone] * (ABNORMAL) Vitamin B12 (03/04/2024 9:21 AM EST) [facility] Vitamin B-12 923(H) 250 - 900 pcg/mL LAB CHEMISTRY METHOD 03/04/2024 1:03 PM EST [facility] Blood Venous blood specimen / Unknown Venipuncture / Unknown 03/04/2024 9:21 AM EST 03/04/2024 11:40 AM EST us Gerry Barksdale MD LAB BLOOD ORDERABLES Final Re sult Performing Organization Address [facility]/ZIP Co de Phone Number [facility] [address] [place] [address], [place] [phone] * Folate (03/04/2024 9:21 AM EST) Folate 11.0 2.8 - 17.0 ng/ml LAB CHEMISTRY METHOD 03/04/2024 1:03 PM EST [facility] Blood Venous blood specimen / Unknown Venipuncture / Unknown 03/04/2024 9:21 AM EST 03/04/2024 11:40 AM EST Gerry Barksdale MD LAB BLOOD ORDERABLES Final Re sult Performing Organization Address [facility] Co de Phone Number [facility] [address] [place] [address], [place] [phone] * Thyroid stimulating hormone (03/04/2024 9:21 AM EST) TSH 3.12 0.40 - 4.00 mcIU/mL LAB CHEMISTRY METHOD 03/04/2024 12:40 PM EST [facility] Blood Venous blood specimen / Unknown Venipuncture / Unknown 03/04/2024 9:21 AM EST 03/04/2024 11:40 AM EST us Gerry Barksdale MD LAB BLOOD ORDERABLES Final Re sult Performing Organization Address City/[facility]/ZIP Co de Phone Number [facility] [address] [place] [address], [place] [phone] * (ABNORMAL) Comprehensive metabolic panel (03/04/2024 9:21 AM EST) Sodium 137 133 - 145 mmol/L LAB CHEMISTRY METHOD 03/04/2024 1:03 PM EST [facility] Potassium 4.2 3.5 - [...] [facility] [address] [place] [address], * (ABNORMAL) Complete blood count (03/04/2024 9:21 [...] [facility] MCHC 33.4 32.0 - [...] [facility] [address] [place] [address], documented in this encounter Visit Diagnoses Diagnosis Vitamin D deficiency, unspecified Type 2 diabetes mellitus without complications (CMS/HCC V24, CMS/HCC V28) Essential (primary) hypertension Unspecified essential hypertension documented in this encounter Care Teams Runner Man Relationship Specialty Start Date End Date Dalia Harmon PA [address] [place] [address], [address] [place] [address] PCP - General 05/10/24 documented as of this encounter
--- OUTSIDE RECORDS SUMMARY | 2024-08-26 09:54 | XMS_ITS | Clinical Summary ---
Author Organization [facility] Address [address] [place] [address] Phone Care Team Providers Care Director Of Special Education Name Role Phone Dalia Harmon Primary Care Provider [phone] Allergies Active Allergy Reactions Criticality Noted Date [...] 07/07/19 25 Pseudomonal bacteremia 06/13/2024 Severe sepsis ([facility] V24, [facility] V28) 025 Candidal intertrigo 03/01/2024 Anasarca 02/26/2024 Lymphedema 08/01/2022 Thrombocytopenia ([facility] V24) 08/01/2022 Overview (12/25/2023): Related to iron overload syndrome per prior records COPD (chronic obstructive pu lmonary disease) ([facility] V24, [facility] V28) 08/01/2022 Avascular necrosis of bone o f hip, left ([facility] V24, [facility] V28) 06/25/2022 Overview (12/25/2023): Was seen by [facility] who recommended weight loss prior to elective hip arthroplasty of left hip Was seen by [facility] who concurred with this Insomnia 04/13/2018 Chronic allergic conjunctivitis 04/13/2018 Anxiety 04/13/2018 Esophageal varices ([facility] V24, [facility] V28) Hemochromatosis 12/03/2017 Overview (12/25/2023): 2 heterozygous gene mutations were found and recommended [id number] therapeutic phlebotomy. Follows with GI. Liver cirrhosis secondary to CASTANEDA (nonalcoholic steatohepatitis) ([facility]/HCC V24, CMS/HCC V28) 12/03/2017 Erosive gastritis 10/13/2017 Obstructive sleep apnea 05/21/2016 Overview (12/25/2023): On CPAP Hypertension 12/14/2014 Hyperlipidemia 12/12/2014 Diabetes mellitus type 2 wit h neurological manifestations (CMS/HCC V24, CMS/HCC V28) 12/12/2014 Depression with anxiety 12/12/2014 Benign colonic polyp 12/12/2014 Vitamin D deficiency 07/27/2012 Internal hemorrhoids 07/27/2010 Diverticulosis 05/29/2010 Encounters Date Type Department Care Team Description 07/26/2024 Telephone Gastroenterology [facility] 175 [facility] [address] [phone] Han Sloan DO provider call back 07/16[facility] [address] [phone] Han Sloan DO 07/06/2024 3:56 PM EDT - 07/07/2024 12:46 PM EDT Hospital Encounter [facility] [address] [place] [phone] Rosaura Iglesias MD Kela, Kashyap Devendrabhai, MD Abrokwah, Foster Myles G, CRNA Freeman, Katharine O, MD Personal history of portal hypertension (Primary Dx); Esophageal varices without bleeding, unspecified esophageal varices type (CMS/HCC V24, CMS/HCC V28); Liver cirrhosis secondary to CASTANEDA (nonalcoholic steatohepatitis) ([facility]/HCC V24, CMS/HCC V28) Discharge Disposition: Home-Health Care [facility] 07/06/2024 2:08 PM EDT Anesthesia Event [facility] Interventional Radiology [address] [place] [phone] Paul Alfaro DO 07/05/2024 Telephone Gastroenterology [facility] 175 [place] [address] [phone] Han Sloan DO 06/29[facility]20[facility] 175 [facility] [address] [phone] Han Sloan DO Appointment (Upcoming Echo) 06/24/2024 11:20 AM EST [facility] 175 [facility] [address] [phone] Han Sloan DO Cirrhosis of liver with ascites, unspecified hepatic cirrhosis type (CMS/HCC V24, CMS/HCC V28) (Primary Dx); Other ascites; Deep vein thrombosis of portal vein 06/18/2024 Lab Requisition [facility] - Main Lab [address] [facility] [place] [phone] Gerry Barksdale Sepsis, unspecified organism ([facility]/HCC V24, [facility] V28) 06/14/2024 [facility] 175 [facility] [address] [phone] Han Sloan DO provider call back 06/13/2024 12:02 PM EST - 06/16/2024 2:30 PM EST Hospital Encounter [facility] [address] [place] [phone] Barak Benjamin MD Flores, Carlos M, MD Kela, Kashyap Devendrabhai, MD Mohani, Priya, MD Bacteremia (Primary Dx); Cuello catheter in place; Urinary tract infection associated with indwelling urethral catheter, initial encounter ([facility] V24); Hx of ascites; Anasarca Discharge Disposition: Home-Health Care [facility] 06/11/2024 10:01 PM EST - 06/12/2024 12:[address] [facility] Emergency [address] [place] [phone] Barak Benjamin MD Gross hematuria (Primary Dx); Tachycardia; Abnormal chest CT Discharge Disposition: Home or Self Care 06/04/2024 Lab Requisition [facility] [address] [facility] [place] [address] Gerry Bakrsdale Sepsis, unspecified organism ([facility] V24, [facility] V28) 06/03/2024 Telephone Gastroenterology - [place] 175 [facility] 175 [facility] [address] [place] [address] Luther, Han, TESTING 05/28/[address] [facility] Lab [address] [place] [address] Gerry Barksdale Sepsis, unspecified organism ([facility] V24, [facility] V28) from Last 3 Months Surgical History Surgery Date Site/Laterality Comments BACK SURGERY PROCEDURE: HISTORICAL BACK SURGERY; COMMENT: spinal diskectomy, osteophytectomy x4 ESOPHAGOGASTRODUODENOSCOPY PROCEDURE: OK ESOPHAGOGASTRODUODENOSCOPY TRANSORAL DIAGNOSTIC COLONOSCOPY N/A PROCEDURE: HISTORICAL COLONOSCOPY OTHER SURGICAL HISTORY Right PROCEDURE: OK STAB PHLEBT VARICOSE VEINS 1 XTR > 20 INCS Medical History Medical History Date Comments Anxiety 04/13/2018 DX:Anxiety Benign colonic polyp 12/12/2014 DX:Benign c olonic polyp Chronic allergic conjunctivitis 04/13/2018 DX:Chronic allergic conjunctivitis Cirrhosis of liver ([facility] V24, [facility] V28) 12/03/2017 DX:Cirrhosis of liver (HCC) Depression with anxiety 12/12/2014 DX:Depre ssion with anxiety Diverticulosis 05/29/2010 DX:Diverticulosi s Diabetes mellitus type 2, uncomplicated ([facility]/HCC V24, [facility] V28) 12/12/2014 DX:Diabetes mellitus type 2, uncomplicated (HCC) Erosive gastritis 10/13/2017 DX:Erosive gas tritis Esophageal varices ([facility] V24, [facility] V28) 12/03/2017 DX:Esophageal varices (HCC) Hyperlipidemia 12/12/2014 DX:Hyperlipidemi a Hypertension 12/14/2014 DX:Hypertension Insomnia 04/13/2018 DX:Insomnia Internal hemorrhoids 07/27/2010 DX:Internal hemorrhoids Iron overload syndrome 12/03/2017 DX:Iron o verload syndrome Morbid obesity ([facility] V24, [facility]/HCC V28) 09/10/2017 DX:Morbid obesity (HCC) Obstructive sleep [...] 9:10 AM EDT Office Visit Gastroenterology - [place] 175 [facility] 175 [facility] [address] [place] [address] Han Sloan DO 175 [facility] [address] [place] [address] 09/06/2024 9:15 AM EDT Clinical Support [facility] [address] [place] [address] Health Maintenance Due Date Last Done Comments [...] this topic Medical Devices Implanted Type Area Bi Application Developer Device Identifier Shelf Expiration Date Model / Serial / Lot Stent Viatorr 8-10mmx8/2cm - [id number] - [id number] Implanted:Qty: 1 on 07/06/2024 by Paul Bonner MD at [facility] Peripheral Vasc Drug Eluting Stents Right: Liver [employer] [id number] 05/20/2026 [id number] 75 / [id number] / Stent Viatorr 8-10mmx8/2cm - [id number] - [id number] Implanted:Qty: 1 on 07/06/2024 by Paul Bonner MD at [facility] Peripheral Vasc Drug Eluting Stents Right: Liver [employer] [id number] 03/29/2027 [id number] 75 / [id number] / Procedures Procedure Name Priority Date/Time Associated [...] 8:09 AM EST Sepsis, unspecified organism (CMS/HCC) HEMOGLOBIN A1C Routine 05/21/2024 3:17 AM EST from Last 3 Months or Most Recently Relevant to Health Maintenance Results * (ABNORMAL) Basic metabolic panel (07/30/2024 11:49 AM EDT) Only the most recent of8 resultswithin the time period is included. Sodium 139 133 - 145 mmol/L LAB CHEMISTRY METHOD 07/30/2024 1:21 PM [facility] Potassium 4.0 3.5 - 5.5 mmol/L LAB CHEMISTRY METHOD 07/30/2024 1:21 PM [facility] Chloride 105 96 - 110 mmol/L LAB CHEMISTRY METHOD 07/30/2024 1:21 PM [facility] CO2 28 21 - 32 mmol/L LAB CHEMISTRY METHOD 07/30/2024 1:21 PM [facility] Anion Gap 6 3 - 11 LAB CHEMISTRY METHOD 07/30/2024 1:21 PM [facility] Glucose 136(H) 70 - 100 mg/dL LAB CHEMISTRY METHOD 07/30/2024 1:21 PM [facility] BUN 10 5 - 25 mg/dL LAB CHEMISTRY METHOD 07/30/2024 1:21 PM [facility] Creatinine 0.57(L) 0.70 - 1.30 mg/dL LAB CHEMISTRY METHOD 07/30/2024 1:21 PM [facility] eGFR 108 >=60 mL/min/1. 73m2 LAB CHEMISTRY METHOD 07/30/2024 1:21 PM [facility] Comment:Calculation based on the??Chronic Kidney Disease Epidemiology Collaboration (CKD-EPI) equation refit??without adjustment for race. BUN/Creatinine Ratio 17.5 LAB CHEMISTRY METHOD 07/30/2024 1:21 PM EDT [facility] Calcium 8.6 8.5 - 10.5 mg/dL LAB CHEMISTRY METHOD 07/30/2024 1:21 PM EDT [facility] Blood Venous blood specimen / Unknown Venipuncture / Unknown 07/30/2024 11:49 AM EDT 07/30/2024 12:22 PM EDT Dalia RAND LAB BLOOD ORDERABLES Final Re sult Performing Organization Address City/[facility]/ZIP Co de Phone Number [facility] [address] [place] [address], [place] [phone] * Activated Partial Thromboplastin Time - STAT (07/07/2024 11:15 AM EDT) aPTT 35.3 24.1 - 39.3 sec LAB COAGULATION METHOD 07/07/2024 12:17 PM EDT [facility] Blood Venous blood specimen / Unknown Venipuncture / Unknown 07/07/2024 11:15 AM EDT 07/07/2024 11:55 AM EDT Annie RAND LAB BLOOD ORDERABLES Final Result Performing Organization Address [facility]/ZIP Co de Phone Number [facility] [address] [place] [address], [place] [phone] * (ABNORMAL) Complete blood count (07/07/2024 6:20 AM EDT) Only the most recent of5 resultswithin the time period is included. WBC 5.0 4.8 - 10.8 K/[facility] LAB HEMETOLOGY METHOD 07/07/2024 7:19 AM EDT [facility] RBC 3.60(L) 4.50 - 5.50 M/[facility] LAB HEMETOLOGY METHOD 07/07/2024 7:19 AM EDT [facility] Hemoglobin 12.7(L) 13.5 - 17.5 g/dL LAB HEMETOLOGY METHOD 07/07/2024 7:19 AM [facility] Hematocrit 38.0(L) 42.0 - 54.0 % LAB HEMETOLOGY METHOD 07/07/2024 7:19 AM [facility] MCV 104.4(H) 79.0 - 98.0 FL LAB HEMETOLOGY METHOD 07/07/2024 7:19 AM [facility] MCH 34.9(H) 27.0 - 32.0 pcg LAB HEMETOLOGY METHOD 07/07/2024 7:19 AM [facility] MCHC 33.4 32.0 - 37.0 g/dL LAB HEMETOLOGY METHOD 07/07/2024 7:19 AM [facility] RDW 15.3(H) 11.0 - 15.0 % LAB HEMETOLOGY METHOD 07/07/2024 7:19 AM [facility] Platelets 98(L) 130 - 400 K/mcL LAB HEMETOLOGY METHOD 07/07/2024 7:19 AM [facility] Comment:previously verified by slide MPV 10.6 7.0 - 11.0 FL LAB HEMETOLOGY METHOD 07/07/2024 7:19 AM [facility] NRBC 0.0 <1.0 % LAB HEMETOLOGY METHOD 07/07/2024 7:19 AM [facility] NRBC Absolute 0.00 <0.10 K/mcL LAB HEMETOLOGY METHOD 07/07/2024 7:19 AM [facility] Blood Venous blood specimen / Unknown Venipuncture / Unknown 07/07/2024 6:20 AM EDT 07/07/2024 6:57 AM EDT us Paola RAND LAB BLOOD ORDERABLES Final Resu lt Performing Organization Address [facility]/ZIP Co de Phone Number [facility] [address] [place] [address], * Magnesium (07/07/2024 6:20 AM EDT) Only the most recent of3 resultswithin the time period is included. Magnesium 2.3 1.9 - 2.6 mg/dL LAB CHEMISTRY METHOD 07/07/2024 7:39 AM EDT [facility] Blood Venous blood specimen / Unknown Venipuncture / Unknown 07/07/2024 6:20 AM EDT 07/07/2024 6:55 AM EDT Paola RAND LAB BLOOD ORDERABLES Final Resu lt Performing Organization Address [facility]/ZIP Co de Phone Number [facility] [address] [place] [address], * (ABNORMAL) Comprehensive metabolic panel (07/07/2024 6:20 AM EDT) Pathologist [facility] Sodium 130(L) 133 - 145 mmol/L LAB CHEMISTRY METHOD 07/07/2024 8:12 AM [facility] Potassium 5.4 3.5 - 5.5 mmol/L LAB CHEMISTRY METHOD 07/07/2024 8:12 AM T [facility] Chloride 97 96 - 110 mmol/L LAB CHEMISTRY METHOD 07/07/2024 8:12 AM [facility] CO2 27 21 - 32 mmol/L LAB CHEMISTRY METHOD 07/07/2024 8:12 AM [facility] Anion Gap 6 3 - 11 LAB CHEMISTRY METHOD 07/07/2024 8:12 AM [facility] Glucose 153(H) 70 - 100 mg/dL LAB CHEMISTRY METHOD 07/07/2024 8:12 AM [facility] BUN 10 5 - 25 mg/dL LAB CHEMISTRY METHOD 07/07/2024 8:12 AM [facility] Creatinine 0.62(L) 0.70 - 1.30 mg/dL LAB CHEMISTRY METHOD 07/07/2024 8:12 AM [facility] eGFR 105 >=60 mL/min/1. 73m2 LAB CHEMISTRY METHOD 07/07/2024 8:12 AM [facility] Comment:Calculation based on the??Chronic Kidney Disease Epidemiology Collaboration (CKD-EPI) equation refit??without adjustment for race. BUN/Creatinine Ratio 16.1 LAB CHEMISTRY METHOD 07/07/2024 8:12 AM [facility] Calcium 8.4(L) 8.5 - 10.5 mg/dL LAB CHEMISTRY METHOD 07/07/2024 8:12 AM [facility] AST (SGOT) 67(H) 10 - 42 unit/L LAB CHEMISTRY METHOD 07/07/2024 8:12 AM [facility] Comment:Results verified by repeat testing ALT (SGPT) 39 10 - 60 unit/L LAB CHEMISTRY METHOD 07/07/2024 8:12 AM [facility] Comment:Results verified by repeat testing Alkaline Phosphatase 167(H) 42 - 121 unit/L LAB CHEMISTRY METHOD 07/07/2024 8:12 AM [facility] Total Protein 5.9(L) 6.0 - 8.0 g/dL LAB CHEMISTRY METHOD 07/07/2024 8:12 AM [facility] Albumin 2.4(L) 3.2 - 5.0 g/dL LAB CHEMISTRY METHOD 07/07/2024 8:12 AM [facility] Total Bilirubin 3.8(H) 0.0 - 1.4 mg/dL LAB CHEMISTRY METHOD 07/07/2024 8:12 AM [facility] Blood Venous blood specimen / Unknown Venipuncture / Unknown 07/07/2024 6:20 AM EDT 07/07/2024 6:55 AM EDT us Paola RAND LAB BLOOD ORDERABLES Final Resu lt Performing Organization Address [facility]/ZIP Co de Phone Number [facility] [address] [place] [address], [place] [phone] * (ABNORMAL) POCT Glucose, blood (07/06/2024 5:56 PM EDT) [facility] Glucose POCT 141(H) 70 - 100 mg/dL 07/06/2024 5:57 PM EDT [facility] Blood Capillary blood specimen / Unknown 07/06/2024 5:56 PM EDT 07/06/2024 5:58 PM EDT Rosaura Iglesias MD LAB POINT OF CARE TE ST DOCKED DEVICE UNSOLICITED RESULTS Final Result Performing Organization Address [facility] de Phone Number [facility] [address] [place] [address], [place] [phone] * IR Insert Hepatic Shunt TIPS (07/06/2024 [...] Signed Date: 07/06/2024 17:22 ET Workstation ID: [id number] Transcribed By: Self Edit Transcribed Date: 07/06/2024 [...] and a 0.035 guidewire was inserted. ??A 10-[place] African by 45 cm check flow sheath was inserted and advanced to the IVC. ??A 5-[place] MPA catheter was then used to catheterize the right hepatic vein. ??Venogram confirms position in the hepatic vein. ??The 10-[place] by 45 cm sheath was advanced over [...] with an 6 mm x 6 cm RECONDITIONER balloon. ??The sheath was then advanced into [...] and a 0.035 guidewire was inserted. A 10-Central African by45 cm check flow sheath was inserted and advanced to the IVC. A 5-FrenchMPA catheter was then used to catheterize the right hepatic vein.Venogram confirms position in the hepatic vein. The 10-Central African by 45 cmsheath was advanced over the catheter into the right hepatic vein. TheKnowlenton scStatsMixion TIPS set was then introduced through the [...] dilatedwith an 6 mm x 6 cm RECONDITIONER balloon. The sheath was then advanced into [...] Signed Date: 07/06/2024 17:22 ET Workstation ID: [id number] Transcribed By: Self Edit Transcribed Date: 07/06/2024 17:09 ET us Job Anderson MD IMG IR PROCEDURES Final Re sult * TH AN ENDOTRACHEAL(NO CHARGE) (07/06/2024 3:00 PM EDT) Narrative Yovanny Mendez CRNA - 07/06/2024 3:00 PM EDT Yovanny Mendez CRNA ? 07/06/2024 ??3:01 PM General Information and Staff Patient location during procedure: OR Resident/SURGICAL ELASTIC KNITTER HAND FRAME: Yovanny Mendez CRNA Performed: resident/DIPIKA/CAA Performed by: Yovanny Mendez CRNA Authorized by: [...] LINE (CHARGE) (07/06/2024 2:49 PM EDT) Narrative Andrea Yovanny Hutton CRNA - 07/06/2024 2:49 PM EDT Yovanny [...] 2:49 PM Staffing Anesthesiologist: Malini Kebede MD us Malini Kebede MD ANESTHESIA ORDERABLES Fin al [...] Resu lt [facility] [address] [place] [address], [place] [phone] * Type and screen (07/06/2024 1:45 PM EDT) ABO Group B 07/06/2024 2:47 PM EDT [facility] Rh Type Positive 07/06/2024 2:47 PM EDT [facility] Antibody Screen Negative 07/06/2024 2:47 PM EDT [facility] Blood Venous blood specimen / Unknown 07/06/2024 1:45 PM EDT 07/06/2024 1:[address] [facility] LAB BLOOD BANK TEST ORDERABLES Final Result [facility] [address] [place] [address], [place] [phone] * (ABNORMAL) TRANSTHORACIC ECHOCARDIOGRAM (TTE) COMPLETE W/ CONTRAST (06/15/2024 2:35 PM EST) Pathologist [facility] Left [facility] [place] 5.9 cm CV PACS LA Area Sys [...] GEMUSE QTc 485 ms GEMUSE P Wave [place] 28 degrees GEMUSE R [place] -36 degrees GEMUSE T [place] 29 degrees GEMUSE ECG Interpretation Normal sinus [...] GEMUSE * Phosphorus (06/15/2024 6:38 AM EST) Phosphorus 3.0 2.5 - 4.5 mg/dL LAB CHEMISTRY METHOD 06/15/2024 7:50 AM EST [facility] Blood Venous blood specimen / Unknown Venipuncture / Unknown 06/15/2024 6:38 AM EST 06/15/2024 7:06 AM EST Liang Reinoso MD LAB BLOOD ORDERABLE S Final Result Performing Organization Address City/[facility]/ZIP Co de Phone Number [facility] [address] [place] [address], [place] [phone] * Cell count with reflex differential, body fluid (06/14/2024 10:19 AM EST) Body Fluid Total Nucleated Cells 218 /mm3 LAB HEMETOLOGY METHOD 06/14/2024 11:38 AM EST [facility] Body Fluid RBC 1,000 /mm3 LAB HEMETOLOGY METHOD 06/14/2024 11:38 AM EST [facility] Body Fluid Color Yellow 06/14/2024 11:38 AM EST [facility] Body Fluid Clarity Clear 06/14/2024 11:38 AM EST [facility] Body Fluid Source Peritoneal 06/14/2024 11:38 AM [facility] Peritoneal Fluid Peritoneal cavity structure / Unknown Non-blood Collection / Unknown 06/14/2024 10:19 AM EST 06/14/2024 10:27 AM EST Narrative [facility] - 06/14/2024 11:38 AM EST No reference ranges have been established for body fluids. Clinical correlation recommended. Cristiana RAND LAB BODY FLUIDS AND STO OLS ORDERABLES Final Result Performing Organization Address [facility] Co de Phone Number [facility] [address] [place] [address], [place] [phone] * Culture body fluid with gram stain (06/14/2024 10:19 AM EST) Fluid Culture No growth at 3 days LAB MICROBIOLOGY METHOD 06/17/2024 11:25 AM [facility] Gram Stain Result No polymorphonuclear leukocytes, No epithelial cells, and No organisms noted 06/17/2024 11:25 AM [facility] Peritoneal Fluid Peritoneal cavity structure / Unknown Non-blood Collection / Unknown 06/14/2024 10:19 AM EST 06/14/2024 10:26 AM EST Cristiana RAND LAB MICROBIOLOGY - GENE RAL ORDERABLES Final Result Performing Organization Address [facility] de Phone Number [facility] [address] [place] [address], [place] [phone] * Differential body fluid (06/14/2024 10:19 AM EST) Fluid Neutrophils % 4 % 06/14/2024 11:38 AM [facility] Fluid Lymphocytes % 74 % 06/14/2024 11:38 AM [facility] Fluid Monocytes/Macrop hages 22 % 06/14/2024 11:38 AM [facility] Fluid Eosinophils % 0 % 06/14/2024 11:38 AM [facility] Fluid Basophils % [...] FLUIDS AND STO OLS ORDERABLES Final Result [facility] [address] [place] [address], [place] [phone] * Culture fungal, other (06/14/2024 10:19 AM EST) Culture, Fungus Negative for Fungus after 4 Weeks 07/12/2024 10:17 AM EDT [facility] Peritoneal Fluid Peritoneal cavity structure / Unknown Non-blood Collection / Unknown 06/14/2024 10:19 AM EST 06/14/2024 10:27 AM EST Cristiana RAND LAB MICROBIOLOGY - GENE RAL ORDERABLES Final Result [facility] [address] [place] [address], [place] [phone] * Specific gravity, body fluid (06/14/2024 10:19 AM EST) Spec Grav, Fluid 1.014 06/14/2024 11:01 AM EST [facility] Peritoneal Fluid Non-blood Collection / Unknown 06/14/2024 10:19 AM EST 06/14/2024 10:26 AM EST [facility] - 06/14/2024 11:01 AM EST No reference ranges have been established for body fluids. Clinical correlation recommended. Cristiana RAND LAB BODY FLUIDS AND STO OLS ORDERABLES Final Result Performing Organization Address [facility] Co de Phone Number [facility] [address] [place] [address], [place] [phone] * Protein, body fluid (06/14/2024 10:19 AM EST) Protein, Fluid 1.4 See Comment g/dL LAB CHEMISTRY METHOD 06/14/2024 11:19 AM EST [facility] Peritoneal Fluid Non-blood Collection / Unknown 06/14/2024 10:19 AM EST 06/14/2024 10:26 AM EST [facility] - 06/14/2024 11:19 AM EST No reference ranges have been established for body fluids. Clinical correlation recommended. us Cristiana RAND LAB BODY FLUIDS AND STO OLS ORDERABLES Final Result Performing Organization Address [facility] de Phone Number [facility] [address] [place] [address], [place] [phone] * Lactate dehydrogenase, body fluid (06/14/2024 10:19 AM EST) LD, Fluid 78 See Comment unit/L LAB CHEMISTRY METHOD 06/14/2024 11:42 AM EST [facility] Peritoneal Fluid Peritoneal cavity structure / Unknown Non-blood Collection / Unknown 06/14/2024 10:19 AM EST 06/14/2024 10:27 AM EST [facility] - 06/14/2024 11:42 AM EST No reference ranges have been established for body fluids. Clinical correlation recommended. us Cristiana RAND LAB BODY FLUIDS AND STO OLS ORDERABLES Final Result Performing Organization Address [facility]/ZIP Co de Phone Number [facility] [facility] [address] [place] [address], [place] [phone] * Glucose, body fluid (06/14/2024 10:19 AM EST) Glucose, Fluid 150 See Comment mg/dL LAB CHEMISTRY METHOD 06/14/2024 11:28 AM EST [facility] Ascites 06/14/2024 10:1 9 AM EST 06/14/2024 10:26 AM EST [facility] LAB - 06/14/2024 11:28 AM EST No reference ranges have been established for body fluids. Clinical correlation recommended. us Cristiana RAND LAB BODY FLUIDS AND STO OLS ORDERABLES Final Result Performing Organization Address [facility] Co de Phone Number [facility] [address] [place] [address], [place] [phone] * Amylase, body fluid (06/14/2024 10:19 AM EST) Amylase, Fluid 24 See Comment unit/L LAB CHEMISTRY METHOD 06/14/2024 11:19 AM EST [facility] Peritoneal Fluid Non-blood Collection / Unknown 06/14/2024 10:19 AM EST 06/14/2024 10:26 AM EST [facility] LAB - 06/14/2024 11:19 AM EST No reference ranges have been established for body fluids. Clinical correlation recommended. us Cristiana RAND LAB BODY FLUIDS AND STO OLS ORDERABLES Final Result Performing Organization Address [facility] Co de Phone Number [facility] [address] [place] [address], [place] [phone] * Albumin, body fluid (06/14/2024 10:19 AM EST) Albumin, Fluid 0.6 See Comment g/dL LAB CHEMISTRY METHOD 06/14/2024 11:19 AM [facility] Peritoneal Fluid Non-blood Collection / Unknown 06/14/2024 10:19 AM EST 06/14/2024 10:26 AM EST Narrative [facility] - 06/14/2024 11:19 AM EST No reference ranges have been established for body fluids. Clinical correlation recommended. us Cristiana RAND LAB BODY FLUIDS AND STO OLS ORDERABLES Final Result [facility] [address] [place] [address], [place] [phone] * Non-gynecologic cytology (06/14/2024 10:19 AM EST) Final Diagnosis A. Peritoneal fluid, paracentesis, (ThinPrep, cell block): Negative for malignant cells. 06/17/2024 4:30 PM [facility] Specimen A Adequacy Satisfactory for evaluation 06/17/2024 4:30 PM [facility] Gross Description A. Peritoneal Cavity, : Received 115 ml of yellow fluid; 1 ThinPrep, 1 Cell block Cell block in formalin @1500; total formalin fixation time 6 hours. 06/17/2024 4:30 PM [facility] Disclaimer Unless otherwise specified, all tissue is 10% NB formalin fixed and paraffin embedded. Technical cytopathology services provided by [facility], at [address] [place] [address] (CLIA # [id number]/Katya Lo MD, Rn Rehab.) 06/17/2024 4:30 PM [facility] Peritoneal Fluid Peritoneal cavity structure / Unknown Non-blood Collection / Unknown 06/14/2024 10:19 AM EST 06/14/2024 2:30 PM EST us Cristiana RAND LAB CYTOLOGY ORDERABLES Final Result [facility] [address] [place] [address], [place] [phone] * [place] Paracentesis w Image Guidance (06/14/2024 [...] Signed Date: 06/15/2024 12:40 ET Workstation ID: [id number] Transcribed By: Self Edit Transcribed Date: 06/14/2024 11:29 ET Resident/PA/BAG SHOP WORKER: Milady Chilel Narrative 06/15/2024 12:40 PM EST [...] Signed Date: 06/15/2024 12:40 ET Workstation ID: [id number] Transcribed By: Self Edit Transcribed Date: 06/14/2024 11:29 ET Resident/PA/BAG SHOP WORKER: Milady Chilel us Cristiana RAND IMG US PROCEDURES Final Result * Lactate, with reflex (06/14/2024 5:26 AM EST) Only the most recent of3 resultswithin the time period is included. LACTIC ACID 1.6 0.4 - 2.0 mmol/L LAB CHEMISTRY METHOD 06/14/2024 6:03 AM EST [facility] Blood Venous blood specimen / Unknown Venipuncture / Unknown 06/14/2024 5:26 AM EST 06/14/2024 5:33 AM EST us aNpoleon Neely MD LAB BLOOD ORDERABLES Final Re sult [facility] [address] [place] [address], [place] [phone] * Culture blood (06/14/2024 5:22 AM EST) Only the most recent of4 resultswithin the time period is included. [facility] Culture, Blood No growth at 5 days 06/19/2024 6:01 AM [facility] Blood Venous blood specimen / Unknown Venipuncture / Unknown 06/14/2024 5:22 AM EST 06/14/2024 5:33 AM EST Napoleon Neely MD LAB MICROBIOLOGY - GENERAL OR DERABLES Final Result [facility] [address] [place] [address], * (ABNORMAL) CBC auto differential (06/14/2024 5:14 AM EST) Only the most recent of3 resultswithin the time period is included. [facility] WBC 4.5(L) 4.8 - 10.8 K/mcL LAB HEMETOLOGY METHOD 06/14/2024 6:00 AM [facility] RBC 3.30(L) 4.50 - 5.50 M/mcL LAB HEMETOLOGY METHOD 06/14/2024 6:00 AM [facility] Hemoglobin 11.6(L) 13.5 - 17.5 g/dL LAB HEMETOLOGY METHOD 06/14/2024 6:00 AM [facility] Hematocrit 35.2(L) 42.0 - 54.0 % LAB HEMETOLOGY METHOD 06/14/2024 6:00 AM [facility] MCV 107.0(H) 79.0 - 98.0 FL LAB HEMETOLOGY METHOD 06/14/2024 6:00 AM [facility] MCH 35.3(H) 27.0 - 32.0 pcg LAB HEMETOLOGY METHOD 06/14/2024 6:00 AM [facility] MCHC 33.0 32.0 - 37.0 g/dL LAB HEMETOLOGY METHOD 06/14/2024 6:00 AM [facility] RDW 17.5(H) 11.0 - 15.0 % LAB HEMETOLOGY METHOD 06/14/2024 6:00 AM [facility] Platelets 77(L) 130 - 400 K/mcL LAB HEMETOLOGY METHOD 06/14/2024 6:00 AM [facility] Comment:previously verified by slide MPV 10.3 7.0 - 11.0 FL LAB HEMETOLOGY METHOD 06/14/2024 6:00 AM [facility] NRBC 0.0 <1.0 % LAB HEMETOLOGY METHOD 06/14/2024 6:00 AM [facility] NRBC Absolute 0.00 <0.10 K/mcL LAB HEMETOLOGY METHOD 06/14/2024 6:00 AM [facility] Neutrophils Relative 75.4 % LAB HEMETOLOGY METHOD 06/14/2024 6:00 AM [facility] Lymphocytes Relative 13.9 % LAB HEMETOLOGY METHOD 06/14/2024 6:00 AM [facility] Monocytes Relative 9.7 % LAB HEMETOLOGY METHOD 06/14/2024 6:00 AM [facility] Eosinophils Relative 0.4 % LAB HEMETOLOGY METHOD 06/14/2024 6:00 AM [facility] Basophils Relative 0.4 % LAB HEMETOLOGY METHOD 06/14/2024 6:00 AM [facility] Immature Granulocytes Relative 0.2 % LAB HEMETOLOGY METHOD 06/14/2024 6:00 AM [facility] Neutrophils Absolute 3.35 1.50 - 7.00 K/mcL LAB HEMETOLOGY METHOD 06/14/2024 6:00 AM EST [facility] Lymphocytes Absolute 0.62(L) 1.00 - 5.00 K/mcL LAB HEMETOLOGY METHOD 06/14/2024 6:00 AM EST [facility] Monocytes Absolute 0.43 0.20 - 1.00 K/mcL LAB HEMETOLOGY METHOD 06/14/2024 6:00 AM EST [facility] Eosinophils Absolute 0.02 0.00 - 0.50 K/mcL LAB HEMETOLOGY METHOD 06/14/2024 6:00 AM EST [facility] Basophils Absolute 0.02 0.00 - 0.20 K/mcL LAB HEMETOLOGY METHOD 06/14/2024 6:00 AM [facility]) [facility] Immature Granulocytes Absolute 0.01 0.00 - 0.03 K/mcL LAB HEMETOLOGY METHOD 06/14/2024 6:00 AM [facility] Blood Venous blood specimen / Unknown Venipuncture / Unknown 06/14/2024 5:14 AM EST 06/14/2024 5:34 AM EST Napoleon Neely MD LAB BLOOD ORDERABLES Final Re sult [facility] [address] [place] [address], * ECG-Annotated (06/14/2024) Provider Onbase ECG ORDERABLES [...] ORDERABLES Final Re sult Performing Organization Address [facility]/ZIP Co de Phone Number [facility] [address] [place] [address], [place] [phone] * (ABNORMAL) C-reactive protein (06/13/2024 12:37 PM EST) [facility] C-Reactive Protein 10.20(H) <=0.50 mg/dL LAB CHEMISTRY METHOD 06/13/2024 2:25 PM EST [facility] Blood Venous blood specimen / Unknown Venipuncture / Unknown 06/13/2024 12:37 PM EST 06/13/2024 12:55 PM EST us Napoleon Neely MD LAB BLOOD ORDERABLES Final Re sult Performing Organization Address [facility] Co de Phone Number [facility] [address] [place] [address], [place] [phone] * (ABNORMAL) Hepatic function panel (06/13/2024 12:37 PM EST) [facility] Total Protein 5.9(L) 6.0 - 8.0 g/dL LAB CHEMISTRY METHOD 06/13/2024 2:25 PM EST [facility] Albumin 2.3(L) 3.2 - 5.0 g/dL LAB CHEMISTRY METHOD 06/13/2024 2:25 PM EST [facility] Total Bilirubin 2.6(H) 0.0 - 1.4 mg/dL LAB CHEMISTRY METHOD 06/13/2024 2:25 PM EST [facility] Bilirubin, Direct 1.4(H) 0.0 - 0.3 mg/dL LAB CHEMISTRY METHOD 06/13/2024 2:25 PM EST [facility] Bilirubin, Indirect 1.2(H) 0.0 - 1.1 mg/dL LAB CHEMISTRY METHOD 06/13/2024 2:25 PM EST [facility] ALT (SGPT) 20 10 - 60 unit/L LAB CHEMISTRY METHOD 06/13/2024 2:25 PM EST [facility] AST (SGOT) 32 10 - 42 unit/L LAB CHEMISTRY METHOD 06/13/2024 2:25 PM EST [facility] Alkaline Phosphatase 133(H) 42 - 121 unit/L LAB CHEMISTRY METHOD 06/13/2024 2:25 PM EST [facility] Blood Venous blood specimen / Unknown Venipuncture / Unknown 06/13/2024 12:37 PM EST 06/13/2024 12:55 PM EST Napoleon Neely MD LAB BLOOD ORDERABLES Final Re sult [facility] [address] [place] [address], * Troponin I high sensitivity (06/12/2024 6:44 AM EST) Only the most recent of2 resultswithin the time period is included. High Sensitivity Troponin I 17 <=79 ng/L LAB CHEMISTRY METHOD 06/12/2024 7:31 AM EST [facility] Blood Venous blood specimen / Unknown Venipuncture / Unknown 06/12/2024 6:44 AM EST 06/12/2024 6:58 AM EST [facility] - 06/12/2024 7:31 AM EST High levels of biotin in samples may falsely decrease hsTroponin values. ??Use caution when interpreting hsTroponin results in patients taking biotin who exhibit renal impairment (eGFR <60) or in patients taking more than 20 mg/day of biotin. us Naylei RAND LAB BLOOD ORDERABLES Final Resu lt [facility] ([facility]) [facility] [address] [facility] [place] [address], [place] [phone] * CT Abdomen Pelvis w Contrast (06/12/2024 6:28 AM EST) Anatomical Region Laterality Modality Body Computed Tomogra phy 06/12/2024 7:06 AM EST Impressions 06/12/2024 7:06 AM EST Impression: Cirrhotic liver with portal hypertension including wyneuhdm-nn-ahkjq volume ascites, splenomegaly and varices. No apparent [...] Impression: Cirrhotic liver with portal hypertension including mlxpoipd-ke-fvphz volume ascites, splenomegaly and varices. No apparent bowel obstruction. No clear explanation for hematuria. If persistent, follow-up dedicatedCT urogram suggested. Decompressed urinary bladder with Cuello catheter limiting detail. Findings suggesting panniculitis. Other findings as noted. This document has been electronically signed by: Jose Underwood MD on 06/12/2024 07:06:[address] PROCEDURES Final Result * CT Angio Chest wo and/or w Contrast (06/12/2024 6:28 AM EST) Anatomical Region Laterality Modality Body Computed Tomogra phy 06/12/2024 6:43 AM EST Impressions 06/12/2024 6:43 AM EST A 1 cm mixed density nodular right lower lobe opacity indeterminate. Could be infectious, inflammatory or neoplastic. Follow-up chest CT is recommended in 3 months to assess stability. Esnlo-vt-ehurnect size left pleural effusion and trace right [...] contour and moderate volume of ascites. Splenomegaly. Bctdl-tn-vkhvhwpg size left pleural effusion and trace right [...] contour and moderate volume of ascites. Splenomegaly. Swtmf-sj-agdongrs size left pleural effusion and trace right [...] recommended in 3 months to assess stability. Yjhim-ap-opaiedtd size left pleural effusion and trace right [...] natriuretic peptide (06/12/2024 5:19 AM EST) Pathologist [facility] BNP 95 <=100 pcg/mL LAB CHEMISTRY METHOD 06/12/2024 6:10 AM EST [facility] Blood Venous blood specimen / Unknown Venipuncture / Unknown 06/12/2024 5:19 AM EST 06/12/2024 5:22 AM EST us Nayeli RAND LAB BLOOD ORDERABLES Final Resu lt [facility] [address] [place] [address], [place] [phone] * (ABNORMAL) Blood culture pathogens molecular study (06/12/2024 3:44 AM EST) Pathologist [facility] Pseudomonas aeruginosa Detected (A) Not Detected LAB MICROBIOLOGY METHOD 06/13/2024 7:45 AM EST [facility] Blood Venous blood specimen / Unknown Venipuncture / Unknown 06/12/2024 3:44 AM EST 06/12/2024 3:51 AM EST us Nayeli RAND LAB MICROBIOLOGY - GENERAL ORDE NINFA Final Result [facility] [address] [place] [address], [place] [phone] * (ABNORMAL) Lactate (06/12/2024 3:40 AM EST) [facility] Lactate 3.2(HH) 0.4 - 2.0 mmol/L LAB CHEMISTRY METHOD 06/12/2024 4:30 AM [facility] Blood Venous blood specimen / Unknown Venipuncture / Unknown 06/12/2024 3:40 AM EST 06/12/2024 3:51 AM EST Nayeli RAND LAB BLOOD ORDERABLES Final Resu lt Performing Organization Address [facility]/ZIP Co de Phone Number [facility] [address] [place] [address], [place] [phone] * (ABNORMAL) Urinalysis with reflex microscopic and culture (06/12/2024 1:15 AM EST) [facility] Specific [place] Urine 1.007 1.003 - 1.030 LAB URINALYSIS - AUTOMATED METHOD 06/12/2024 3:41 AM [facility] pH, Urine 6.0 5.0 - 8.0 pH LAB URINALYSIS - AUTOMATED METHOD 06/12/2024 3:41 AM [facility] Leukocytes, Urine Small(A) Negative LAB URINALYSIS - AUTOMATED METHOD 06/12/2024 3:41 AM [facility] Nitrite, Urine Negative Negative LAB URINALYSIS - AUTOMATED METHOD 06/12/2024 3:41 AM [facility] Protein, Urine Negative <=Trace mg/dL LAB URINALYSIS - AUTOMATED METHOD 06/12/2024 3:41 AM [facility] Glucose, Urine Negative Negative mg/dL LAB URINALYSIS - AUTOMATED METHOD 06/12/2024 3:41 AM [facility] Ketones, Urine Negative Negative mg/dL LAB URINALYSIS - AUTOMATED METHOD 06/12/2024 3:41 AM [facility] Urobilinogen, Urine 0.2 0.2 - 1.0 mg/dL LAB URINALYSIS - AUTOMATED METHOD 06/12/2024 3:41 AM [facility] Bilirubin, Urine Negative Negative LAB URINALYSIS - AUTOMATED METHOD 06/12/2024 3:41 AM [facility] Blood, Urine Large(A) Negative LAB URINALYSIS - AUTOMATED METHOD 06/12/2024 3:41 AM [facility] RBC, Urine 156.5(H) 0 - 4 /HPF LAB URINALYSIS - AUTOMATED METHOD 06/12/2024 3:41 AM [facility] WBC, Urine 16.6(H) 0 - 4 /HPF LAB URINALYSIS - AUTOMATED METHOD 06/12/2024 3:41 AM [facility] Squamous Epithelial, Urine 9 0 - 60 /LPF LAB URINALYSIS - AUTOMATED METHOD 06/12/2024 3:41 AM [facility] Bacteria, Urine Negative Negative /HPF LAB URINALYSIS - AUTOMATED METHOD 06/12/2024 3:41 AM [facility] Hyaline Casts, Urine 0.8 0 - 3 /LPF LAB URINALYSIS - AUTOMATED METHOD 06/12/2024 3:41 AM [facility] Urine Urine specimen obtained by clean catch procedure / Unknown Non-blood Collection / Unknown 06/12/2024 1:15 AM EST 06/12/2024 2:59 AM EST us Nayeli RAND LAB URINE ORDERABLES Final Resu lt [facility] [address] [place] [address], * Pugh urine culture tube (06/12/2024 1:15 AM EST) Extra Tube Hold for add-ons. 06/12/2024 4:01 AM EST [facility] Comment:Auto resulted. Urine Urine specimen obtained by clean catch procedure / Unknown Non-blood Collection / Unknown 06/12/2024 1:15 AM EST 06/12/2024 2:59 AM EST Nayeli RAND LAB URINE ORDERABLES Final Resu lt [facility] [address] [place] [address], [place] [phone] * (ABNORMAL) Culture urine (06/12/2024 1:15 AM [...] MICROBIOLOGY - GENERAL ORDE RABLES Final Result [facility] [address] [place] [address], [place] [phone] * Hemoglobin A1c (05/21/2024 3:17 AM EST) [...] Resu lt [facility] [address] [place] [address], [place] [phone] from Last 3 Months or Most Recently Relevant to Health Maintenance Insurance [facility]IC[facility] Member Subscriber Plan / Payer (Ef fective 2023-Present) Name:Jonny Reed Relation to Subscriber:Self Name:Jonny Reed Payer ID:[id number] Group ID:[id number] Type:Not on file Address: [place] [address] [address] [id number] Advance Directives Documents on File Type Date Recorded Patient Rn Military Expl anation Advance Directives and Living Will 03/04/2024 11:52 AM Advance Directives and Living Will 03/03/2024 1:15 PM Elinor Cortez [facility] Care Proxy * Full Code - [...] Agents on File Name Relationship Healthcare Agent [facility] p Communication Elinor Lesliedayami Scurry Health Care Agent Care Teams Director Of Special Education Relationship Specialty Start Date End Date Dalia Harmon PA [address] [place] [address], [address] [place] [address] PCP - General 05/10/24
--- OUTSIDE RECORDS SUMMARY | 2024-08-26 09:54 | XMS_ITS | Clinical Summary ---
Author Organization [facility] Address [address] [place] [address] Care Team Providers Care Axle Bearing Polisher Name Role Phone Dago Ferro MD Primary Care Provider [phone] Allergies No known active allergies Medications Medication [...] age to complete this topic Care Teams Axle Bearing Polisher Relationship Specialty Start Date End Date Dago Ferro MD PCP - General Internal Medicine 03/23/19
--- OUTSIDE RECORDS SUMMARY | 2024-08-26 09:54 | XMS_ITS | Encounter Summary ---
Author Organization [facility] Address [address] [place] [address] Care Team Providers Care Microbiology Lab Analyst Name Role Phone Dalia Harmon Primary Care Provider [phone] Encounter Details Date Type Department Care Team (Late Contact Info) Description 03/05/2024 Lab Requisition [facility] - Main Lab [address] [facility] [place] [address] Gerry [place] MD [address] [facility] [address] [place] [address] Essential (primary) hypertension Social History Tobacco Use [...] 9:10 AM EDT Office Visit Gastroenterology - [place] [address] [facility] [address] [place] [address] Han Sloan DO [address] [facility] [address] [place] [address] 09/06/2024 9:15 AM EDT Clinical Support [facility] [address] [place] [phone] documented as of this encounter Procedures Procedure [...] LAB CHEMISTRY METHOD 03/08/2024 1:23 PM EST [facility] Comment:Calculation based on the??Chronic Kidney Disease Epidemiology Collaboration (CKD-EPI) equation refit??without adjustment for race. BUN/Creatinine Ratio 18.4 LAB CHEMISTRY METHOD 03/08/2024 1:23 PM [facility] Calcium 8.7 8.5 - 10.5 mg/dL LAB CHEMISTRY METHOD 03/08/2024 1:23 PM [facility] Blood Venous blood specimen / Unknown Venipuncture / Unknown 03/08/2024 9:48 AM EST 03/08/2024 11:22 AM EST us Gerry Barks[place] MD LAB BLOOD ORDERABLES Final Re sult [facility] [address] [place] [address], * (ABNORMAL) Complete blood count (03/08/2024 9:48 [...] LAB HEMETOLOGY METHOD 03/08/2024 12:55 PM EST [facility] MCHC 32.9 32.0 - 37.0 g/dL LAB HEMETOLOGY METHOD 03/08/2024 12:55 PM EST [facility] RDW 14.7 11.0 - 15.0 % LAB HEMETOLOGY METHOD 03/08/2024 12:55 PM [facility] Platelets 102(L) 130 - 400 K/mcL LAB HEMETOLOGY METHOD 03/08/2024 12:55 PM EST [facility] MPV 11.3(H) 7.0 - 11.0 [...] [facility] [address] [place] [address], documented in this encounter Visit Diagnoses Diagnosis Essential (primary) hypertension Unspecified essential hypertension documented in this encounter Care Teams Microbiology Lab Analyst Relationship Specialty Start Date End Date Dalia Harmon PA [address], [address] [place] [address] PCP - General 05/10/24 documented as of this encounter
--- OUTSIDE RECORDS SUMMARY | 2024-08-26 09:54 | XMS_ITS | Encounter Summary ---
Author Organization [facility] Address [address] [place] [address] Care Team Providers Care Stagecraft Professor Name Role Phone Dalia Harmon Primary Care Provider [phone] Encounter Details Date Type Department Care Team (Late st Contact Info) Description 03/12/2024 Lab Requisition [facility] - Main Lab [address] [facility] [place] [phone] Gerry Barksdale [address] [facility] [address] [place] [address] Essential (primary) hypertension Social History [...] 9:10 AM EDT Office Visit Gastroenterology - [place] [address] [facility] [address] [place] [phone] Han Sloan DO [address] [facility] [address] [place] [address] 09/06/2024 9:15 AM EDT Clinical Support [facility] [address] [place] [phone] documented as of this encounter Visit Diagnoses Diagnosis Essential (primary) hypertension Unspecified essential hypertension documented in this encounter Care Teams Stagecraft Professor Relationship Specialty Start Date End Date Dalia Harmon PA [address] [place] [address], [address] [place] [address] PCP - General 05/10/24 documented as of this encounter
--- OUTSIDE RECORDS SUMMARY | 2024-08-26 09:54 | XMS_ITS | Encounter Summary ---
Author Organization [facility] Address [address] [place] [address] Care Team Providers Care Distance Education Teacher Name Role Phone Dalia Harmon Primary Care Provider [phone] Encounter Details Date Type Department Care Team (Late st Contact Info) Description 05/26/2024 Lab Requisition [facility] - Main Lab [address] [facility] [place] [phone] Gerry Barksdale [address] [facility] [address] [place] [address] Weakness; Urinary tract infection, site [...] 9:10 AM EDT Office Visit Gastroenterology - [place] [address] [place] [address] [place] [address] 09/06/2024 9:15 AM EDT Clinical Support [facility] [address] [place] [phone] documented as of this encounter Procedures Procedure [...] (ABNORMAL) Vitamin B12 (05/26/2024 6:59 AM EST) [facility] Vitamin B-12 1,309(H) 250 - 900 pcg/mL LAB CHEMISTRY METHOD 05/26/2024 1:39 PM EST [facility] Blood Venous blood specimen / Unknown Venipuncture / Unknown 05/26/2024 6:59 AM EST 05/26/2024 10:29 AM EST Gerry Barksdale LAB BLOOD ORDERABLES Final Resul t [facility] [address] [place] [address], * Folate (05/26/2024 6:59 AM EST) [facility] Folate 4.3 2.8 - 17.0 ng/ml LAB CHEMISTRY METHOD 05/26/2024 1:39 PM EST [facility] Blood Venous blood specimen / Unknown Venipuncture / Unknown 05/26/2024 6:59 AM EST 05/26/2024 10:29 AM EST us Gerry Barksdale LAB BLOOD ORDERABLES Final Resul t Performing Organization Address City/[facility]/ZIP Co de Phone Number [facility] [address] [place] [address], [place] [phone] * (ABNORMAL) Thyroid stimulating hormone (05/26/2024 6:59 AM EST) [facility] TSH 5.20(H) 0.40 - 4.00 mcIU/mL LAB CHEMISTRY METHOD 05/26/2024 1:24 PM EST [facility] Blood Venous blood specimen / Unknown Venipuncture / Unknown 05/26/2024 6:59 AM EST 05/26/2024 10:29 AM EST us Gerry Barksdale LAB BLOOD ORDERABLES Final Resul t Performing Organization Address [facility] de Phone Number [facility] [address] [place] [address], [place] [phone] * (ABNORMAL) Comprehensive metabolic panel (05/26/2024 6:59 AM EST) [facility] Sodium 133 133 - 145 mmol/L LAB CHEMISTRY METHOD 05/26/2024 1:16 PM EST [facility] Potassium 3.6 3.5 - 5.5 mmol/L LAB CHEMISTRY METHOD 05/26/2024 1:16 PM [facility] Chloride 95(L) 96 - 110 mmol/L LAB CHEMISTRY METHOD 05/26/2024 1:16 PM [facility] CO2 31 21 - 32 mmol/L LAB CHEMISTRY METHOD 05/26/2024 1:16 PM [facility] Anion Gap 7 3 - 11 LAB CHEMISTRY METHOD 05/26/2024 1:16 PM [facility] Glucose 116(H) 70 - 100 mg/dL LAB CHEMISTRY METHOD 05/26/2024 1:16 PM [facility] BUN 15 5 - 25 mg/dL LAB CHEMISTRY METHOD 05/26/2024 1:16 PM [facility] Creatinine 0.52(L) 0.70 - 1.30 mg/dL LAB CHEMISTRY METHOD 05/26/2024 1:16 PM [facility] eGFR 111 >=60 mL/min/1. 73m2 LAB CHEMISTRY METHOD 05/26/2024 1:16 PM [facility] Comment:Calculation based on the??Chronic Kidney Disease Epidemiology Collaboration (CKD-EPI) equation refit??without adjustment for race. BUN/Creatinine Ratio 28.8 LAB CHEMISTRY METHOD 05/26/2024 1:16 PM [facility] Calcium 8.2(L) 8.5 - 10.5 mg/dL LAB CHEMISTRY METHOD 05/26/2024 1:16 PM [facility] AST (SGOT) 27 10 - 42 unit/L LAB CHEMISTRY METHOD 05/26/2024 1:16 PM [facility] ALT (SGPT) 20 10 - 60 unit/L LAB CHEMISTRY METHOD 05/26/2024 1:16 PM [facility] Alkaline Phosphatase 139(H) 42 - 121 unit/L LAB CHEMISTRY METHOD 05/26/2024 1:16 PM [facility] Total Protein 6.0 6.0 - 8.0 g/dL LAB CHEMISTRY METHOD 05/26/2024 1:16 PM [facility] Albumin 2.3(L) 3.2 - 5.0 g/dL LAB CHEMISTRY METHOD 05/26/2024 1:16 PM [facility] Total Bilirubin 3.2(H) 0.0 - 1.4 mg/dL LAB CHEMISTRY METHOD 05/26/2024 1:16 PM [facility] Blood Venous blood specimen / Unknown Venipuncture / Unknown 05/26/2024 6:59 AM EST 05/26/2024 10:29 AM EST Gerry Barksdale LAB BLOOD ORDERABLES Final Resul t [facility] [address] [place] [address], * (ABNORMAL) Complete blood count (05/26/2024 6:59 AM EST) WBC 7.6 4.8 - 10.8 K/mcL LAB HEMETOLOGY METHOD 05/26/2024 11:18 AM [facility] RBC 3.50(L) 4.50 - 5.50 M/mcL LAB HEMETOLOGY METHOD 05/26/2024 11:18 AM [facility] Hemoglobin 12.2(L) 13.5 - 17.5 g/dL LAB HEMETOLOGY METHOD 05/26/2024 11:18 AM [facility] Hematocrit 35.5(L) 42.0 - 54.0 % LAB HEMETOLOGY METHOD 05/26/2024 11:18 AM [facility] MCV 100.6(H) 79.0 - 98.0 FL LAB HEMETOLOGY METHOD 05/26/2024 11:18 AM [facility] MCH 34.6(H) 27.0 - 32.0 pcg LAB HEMETOLOGY METHOD 05/26/2024 11:18 AM [facility] MCHC 34.4 32.0 - 37.0 g/dL LAB HEMETOLOGY METHOD 05/26/2024 11:18 AM [facility] RDW 15.9(H) 11.0 - 15.0 % LAB HEMETOLOGY METHOD 05/26/2024 11:18 AM EST [facility] Platelets 139 130 - 400 K/mcL LAB HEMETOLOGY METHOD 05/26/2024 11:18 AM EST [facility] MPV 10.8 7.0 - 11.0 FL LAB HEMETOLOGY METHOD 05/26/2024 11:18 AM EST [facility] NRBC 0.0 <1.0 % LAB HEMETOLOGY METHOD 05/26/2024 11:18 AM EST [facility] NRBC Absolute 0.00 <0.10 K/mcL LAB HEMETOLOGY METHOD 05/26/2024 11:18 AM [facility] Blood Venous blood specimen / Unknown Venipuncture / Unknown 05/26/2024 6:59 AM EST 05/26/2024 10:29 AM EST us Gerry Barksdale LAB BLOOD ORDERABLES Final Resul t [facility] [address] [place] [address], documented in this encounter Visit Diagnoses Diagnosis Weakness Other malaise and fatigue Urinary tract infection, site not specified documented in this encounter Care Teams Distance Education Teacher Relationship Specialty Start Date End Date Dalia Harmon PA [address] [place] [address], [address] [place] [address] PCP - General 05/10/24 documented as of this encounter
== END 2024-08-26 09:45 | disposition home or self-care (01) ==
LOC: HO.PMC 09:18
PROVIDERS: Visit Provider Anesthesiology
DX: G89.4 Chronic pain syndrome (principal); R18.8 Other ascites; K74.60 Unspecified cirrhosis of liver; Z79.891 Long term (current) use of opiate analgesic; R31.9 Hematuria, unspecified; M96.1 Postlaminectomy syndrome, not elsewhere classified; M87.052 Idiopathic aseptic necrosis of left femur; M16.0 Bilateral primary osteoarthritis of hip
CPT/HCPCS: 99213

== ENCOUNTER → 2024-08-26 09:17 | Outpatient (BNVA) | payer OTHER, SELFPAY | PROVIDERS: Visit Provider Anesthesiology | DX: Z51.81 Encounter for therapeutic drug level monitoring (principal); M96.1 Postlaminectomy syndrome, not elsewhere classified; M87.052 Idiopathic aseptic necrosis of left femur; M16.0 Bilateral primary osteoarthritis of hip; R31.9 Hematuria, unspecified; K74.60 Unspecified cirrhosis of liver; R18.8 Other ascites | CPT/HCPCS: 99212 ==

== ENCOUNTER 2024-09-10 09:11 | Outpatient (AMB) | payer OTHER, SELFPAY ==
--- NOTE | 2024-09-10 09:27 | A.OFFPC_ITS ---
Vital Signs 09/10/24 09:28 Height 5 ft 6 in BMI Reason not done Patient refused/unable BP 130/76 Blood Pressure Location Lt brachial Position Sitting Pulse 81 Pulse Source Pulse Oximeter Temp 97.1 F Temp Source Temporal Artery Scan Pulse Oximetry (%) 95 Oxygen Delivery Method Room Air Intake Visit Reasons: f/u cirrhosis Intake Note: Patient is here to follow up on Cirrhosis. Game Operator Required: No Apprentice Embalmer: Present (sister and OCTAVE BOARD ASSEMBLER) Accompanied by: Sister Allergies nystatin Adverse Reaction (Mild, Verified 09/10/24 10:09) swelling atorvastatin Adverse Reaction (Verified 09/10/24 10:09) Diarrhea Medication List - Last Reconciled 09/10/24 by Dalia Harmon PA-C albuterol sulfate 90 mcg/actuation 2 puffs inhalation Q4-6H PRN 60 days albuterol sulfate 2.5 mg (0.5 mL) inhalation Q20M apixaban (Eliquis) 5 mg PO BID blood sugar diagnostic (FreeStyle Lite Strips) As directed 2 times per day blood-glucose meter (FreeStyle Lite Meter kit) As directed cholecalciferol (vitamin D3) (Vitamin D3) 50 mcg PO DAILY clotrimazole 1% 1 appl topical BID furosemide 40 mg PO DAILY lancets (FreeStyle Lancets) As directed 2 times per day naloxone 4 mg/actuation 4 mg intranasal Q2M PRN 1 day nebulizers (Aeroneb Go Nebulizer) As directed oxybutynin chloride ER 5 mg PO DAILY 30 days oxycodone 10 mg PO Q4H PRN 30 days [power wheelchair As directed] rosuvastatin (Crestor) 5 mg PO DAILY spironolactone 100 mg PO BID tamsulosin 0.4 mg PO DAILY walker Folding Front wheeled walker [weigh scale As directed] zolpidem 10 mg PO BEDTIME PRN Tobacco use date assessed: 09/10/24 Fall risk assessment: No Falls in past year Last assessed Fall Risk: 09/10/24 Dental Screening Dental Screen Date: 06/23/24 HPI f/u cirrhosis HPI Details 64-year-old male with past medical histo ry of morbid obesity, 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 Patient was seen by Urology 08/20/2024 Cuello catheter was changed and placed on ciprofloxacin for cloudy urine. He follows with pain management for chronic opiates. Presenting with an indwelling urinary catheter malfunction. Catheter leakage became evident during the appointment, and no clear source of the leak could be identified despite previous changes and adjustments. The catheter was adjusted twice the preceding week, and malfunction persists with lingering leakage. Ascites management involved a recent procedure to remove excess fluid, conducted a week and a half ago, with no infection noted. Chronic issues include insomnia and hepatic concerns, while narcotic use persists. 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 prescription opiate use No natural teeth Back pain Back pain Arthritis Fatty liver History of cirrhosis of liver Avascular necrosis Hemochromatosis COPD (chronic obstructive pulmonary disease) NICOLE on CPAP Surgical History H/O transjugular intrahepatic portosystemic shunt Hx of esophagogastroduodenoscopy Hx of colonoscopy [place] teeth extracted History of surgery History of back surgery (~1997) H/O discectomy (~1997) Family History Maternal Grandfather Heart attack Brother Heart attack Social History Household Members: None Housing: Apartment Are you a primary career placement specialist to a significant other at home: No Do you presently have visiting nurse or other home services: Yes (OCTAVE BOARD ASSEMBLER 37.5 hours M-F, 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) 75 years or older and lives alone: No Patient Tobacco Use Status: Former Tobacco user Tobacco use type: Cigarette e-Cigarette/Vaping Use: Never Used Second Hand Smoke Exposure: Yes Substance Use Type: Marijuana service: No Current occupational status: unemployed Gender identity: Male Cognitive needs: No Hearing needs: No Vision needs: No Questionnaire PHQ-9 Over the last 2 weeks, how often have you been bothered by any of the following problems? 1. Little interest or pleasure in doing things: not at all 2. Feeling down, depressed, or hopeless: not at all 3. Trouble falling or staying asleep, or sleeping too much: not at all 4. Feeling tired or having little energy: not at all 5. Poor appetite or overeating: not at all 6. Feeling bad about yourself - or that you are a failure or have let yourself or your family down: not at all 7. Trouble concentrating on things, such as reading the newspaper or watching television: not at all 8. Moving or speaking so slowly that other people could have noticed. Or the opposite - being so fidgety or restless that you have been moving around a lot more than usual: not at all 9. Thoughts that you would be better off or of hurting yourself in some way: not at all Total score: 0 Depression Screening Interpretation: Negative Depression Screening Done: Yes Source: Developed by Drs. Deep Salguero, Marixa Aranda, Damon Foster and colleagues, with an educational mary from [employer]. Thrive Questionnaire Date Thrive assessed: 09/08/24 I am a: Patient What is your living situation today?: I have a place to live, but I am worried about losing it in the future Within the past 12 months, did the food you bought not last and you didn't have the money to get more?: Sometimes True Within the past 12 months, did you worry whether your food would run out before you got money to buy more?: Sometimes True Do you have trouble paying for medicines?: No Do you have trouble getting transportation to medical appointments?: No Do you have trouble paying your heating and electricity bill?: No Do you have trouble taking care of your child, family member or friend?: No Do you have trouble with day-to-day activities such as bathing, preparing meals, shopping, managing finances, etc.?: Yes Are you currently unemployed and looking for a job?: No Are you interested in more education?: No THRIVE Score: 3 AUDIT C Alcohol Use Questionnaire (AUDIT-C) 1. How often do you have a drink containing alcohol?: Never Total Score: 0 CHEPE-7 AMB Questionnaire CHEPE-7 Date CHEPE - 7 assessed: 06/23/24 Feeling nervous, anxious, or on edge: 0 = Not at all Not being able to stop or control worryin = Not at all Worrying too much about different things: 0 = Not at all Trouble relaxin = Several days Being so restless that it is hard to sit still: 0 = Not at all Becoming easily annoyed or irritable: 0 = Not at all Feeling afraid as if something awful might happen: 0 = Not at all Total CHEPE-7 score (0-4 normal; 5-9 mild; 10-14 moderate; 15-21 severe): 1 Source: Developed by Drs. Deep Salguero, Marixa Aranda, Damon Foster and colleagues, with an educational mary from [employer]. Review of Systems Const Denies body aches, Denies chills, Denies fever(s), Denies headache(s) and Denies poor appetite Eyes Reports no additional complaints ENT Denies dizziness and Denies headache(s) Card Denies chest pain, Denies lightheadedness and Denies dyspnea Resp Denies cough and Denies dyspnea GI Denies abdominal pain, Denies nausea and Denies vomiting Reports as per HPI Musc Details: Limited mobility due to pain and obesity Skin/Breast Reports system reviewed and no additional complaints, except as documented Neuro Denies dizziness and Denies headache(s) Psych Reports no additional complaints Physical exam (Primary Care) Vital Signs: Last Vital Signs Temp 97.1 F 09/10/24 09:28 Pulse 81 09/10/24 09:28 BP 130/76 09/10/24 09:28 Pulse Ox 95 09/10/24 09:28 Oxygen Delivery Method Room Air 09/10/24 09:28 Tobacco/Smoking Status: Tobacco use Status Tobacco use date assessed 09/10/24 09/10/24 09:37 Patient Tobacco Use Status Former Tobacco user 09/10/24 09:37 Tobacco use type Cigarette 09/10/24 09:37 e-Cigarette/Vaping Use Never Used 09/10/24 09:37 PHQ-9: PHQ-9 Score PHQ-9: Total score 0 09/10/24 09:37 Depression Screening Interpretation: Negative Thrive Assessment: Date of Thrive Assessment Date Thrive assessed 09/08/24 09/10/24 09:37 Const General: cooperative, healthy appearing, comfortable and no acute distress Orientation/consciousness: patient oriented x3 HENMT Head: Yes normocephalic Ears: hearing grossly normal bilaterally General nose exam: Normal external nose present Eyes General: appearance normal, both eyes and all related structures Conjunctivae: conjunctivae normal Neck Neck: Yes full ROM and Yes no lymphadenopathy Resp Effort & Inspection: normal respiratory effort Auscultation: clear to auscultation bilaterally, no crackles, no rales, no rhonchi and no wheezes Cardio Rate: regular rate Rhythm: regular rhythm Skin General skin exam: no rashes or lesions noted Neuro General: patient oriented x3 Gait exam (Neuro): Normal gait present Extrem General: Yes normal to inspection, Yes full ROM and No edema Psych Affect: normal affect Attitude: cooperative Insight: Good insight present (Psych) Judgement: Good judgement present (Psych) Coding Level of Care Code Est Pt Level 4 (89555) Diagnoses Hemochromatosis E83.119 Liver cirrhosis K74.60 Avascular necrosis of bone of left hip M87.052 Morbid obesity with BMI of 45.0-49.9, adult E66.01; Z68.42 Ascites R18.8 Urinary retention R33.9 Insomnia G47.00 Assessment & Plan Assessment & Plan (1) Hemochromatosis: Code(s): E83.119 - Hemochromatosis, unspecified Category: Medical Plan: Patient is currently following with Gastroenterology for management of 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 Continue to follow with Hematology as well as Gastroenterology. Recently underwent tips procedure 2nd ultrasound was completed last week and he has follow up coming up with Dr. Sloan's office. Continue on current medication regimen (2) Liver cirrhosis: Code(s): K74.60 - Unspecified cirrhosis of liver Category: Medical Plan: See above (3) Avascular necrosis of bone of left hip: Code(s): M87.052 - Idiopathic aseptic necrosis of left femur Category: Medical Plan: Continue to follow with pain management for chronic opiate prescription. (4) Morbid obesity with BMI of 45.0-49.9, adult: Code(s): E66.01 - Morbid (severe) obesity due to excess calories; Z68.42 - Body mass index [BMI] 45.0-49.9, adult Category: Medical Plan: Healthy diet and regular exercise is encouraged. Patient has difficulty with ambulation due to avascular necrosis and would benefit from a power wheelchair. Prescription was set at last visit supporting documentation at that time. Same recommendations applied today. (5) Ascites: Code(s): R18.8 - Other ascites Category: Medical Plan: Per his last GI note patient will likely require paracentesis intermittently. Continue on spironolactone. Patient endorses recent paracentesis several weeks ago plan to obtain [facility] records [facility] and he has repeat follow up with Dr. Sloan coming up. (6) Urinary retention: Code(s): R33.9 - Retention of urine, unspecified Category: Medical Plan: Patient having chronic urinary retention and has an indwelling catheter which she has frequent changes. He does have urinary leakage today with his Cuello and appointment was made with Urology for 03 20. Continue to follow with [facility] and Urology for this concern. (7) Insomnia: Code(s): G47.00 - Insomnia, unspecified Category: Medical Plan: Patient having insomnia previously managed with Ambien he has been having difficulties sleeping on this medication. Plan to start Trazodone along with ambien for management of insomnia. Discussed with patient these medications are sedating and discussed side effects and when to present for re-evaluation. Plan Indwelling urinary catheter malfunction management included evaluation by the urologist, sizing confirmation, and potential replacement. Discussion with Dr. Fischer and a more frequent follow-up was recommended to ensure proper fit and tackling leakage issues. Consideration of a suprapubic catheter was placed on the table with detailed analysis of risks and benefits presented. Insomnia was managed by augmenting Ambien with Trazodone, with specific instructions on dosage adjustment to avoid sedation while maintaining restfulness. Recommended keeping regular contact with Dr. Sloan's office for updates on hepatic management and planning additional imaging and intervention as necessary. Ensured that further communication with external providers and [facility] support will be established to provide cohesive care. This note was constructed using voice recognition software. While every effort has been made to ensure accuracy and director of product management, still areas may have been included sometimes these areas may affect the content or meeting of the given symptoms. Total time spent caring for the patient today was 20 minutes. This includes time spent before the visit reviewing the chart, time spent during the visit, and time spent after the visit and documentation. Patient was informed and verbally consented to the use of an ambient scribe for clinic note documentation during this visit. Medications: New trazodone 50 mg PO BEDTIME 30 tabs 1RF sleep Refilled zolpidem 10 mg PO BEDTIME PRN 28 tabs 0RF Insomnia
--- OUTSIDE RECORDS SUMMARY | 2024-09-10 09:27 | XMS_ITS | Clinical Summary ---
Author Organization [facility] Address [address] [place] [phone] Phone Care Team Providers Care Road Boss Name Role Phone Dalia Harmon Primary Care Provider [phone] Allergies Active Allergy Reactions Criticality Noted Date [...] 3 PM 90 each 1 5 Active lactulose (CHRONULAC) solution Take 15 mL (10 g total) by mouth 1 (one) time each day if needed. 5 Active multivitamin with minerals tablet Take 1 tablet by mouth 1 (one) time each day. No iron Active clotrimazole (LOTRIMIN) 1 % creamIndications :Dermatitis associated with moisture,Wound of right groin, initial encounter,Non-pr essure chronic ulcer of skin of other sites limited to breakdown of skin ([facility] V24, [facility] V28) Apply topically 1 (one) time each day. Apply to affected area as directed 30 g 1 5 025 Active Active Problems Problem Noted Date Diagnosed Date Pressure ulcer of upper thig h, right, stage III (CMS/HCC V24, CMS/[facility] V28) 09/06/2024 Non-pressure chronic ulcer o f other part of right lower leg limited to breakdown of skin ([facility] V24, [facility] V28) 09/06/2024 Dermatitis associated with moisture 09/06/2024 Right groin wound 09/06/2024 Non-pressure chronic ulcer o f skin of other sites limited to breakdown of skin ([facility] V24, [facility] V28) 09/06/2024 Chronic venous hypertension (idiopathic) with ulcer of right lower extremity (CODE) [place] [place], [facility] V28) 09/06/2024 Chronic venous hypertension (idiopathic) with other complications of left lower extremity 09/06/2024 Personal history of portal hypertension 07/07/19 25 Pseudomonal bacteremia 06/13/2024 Severe sepsis ([facility] V24, [facility] V28) 025 Candidal intertrigo 03/01/2024 Anasarca 02/26/2024 Lymphedema 08/01/2022 Thrombocytopenia ([facility] V24) 08/01/2022 Overview (12/25/2023): Related to iron overload syndrome per prior records COPD (chronic obstructive pu lmonary disease) ([facility] V24, [facility] V28) 08/01/2022 Avascular necrosis of bone o f hip, left ([facility] V24, [facility] V28) 06/25/2022 Overview (12/25/2023): Was seen by [facility] who recommended weight loss prior to elective hip arthroplasty of left hip Was seen by [facility] who concurred with this Insomnia 04/13/2018 Chronic allergic conjunctivitis 04/13/2018 Anxiety 04/13/2018 Esophageal varices ([facility] [place], [facility] [place]) Hemochromatosis 12/03/2017 Overview (12/25/2023): 2 heterozygous gene mutations were found and recommended [id number] therapeutic phlebotomy. Follows with GI. Liver cirrhosis secondary to CASTANEDA (nonalcoholic steatohepatitis) ([facility] V24, [facility] V28) 12/03/2017 Erosive gastritis 10/13/2017 Obstructive sleep apnea 05/21/2016 Overview (12/25/2023): On CPAP Hypertension 12/14/2014 Hyperlipidemia 12/12/2014 Diabetes mellitus type 2 wit h neurological manifestations ([facility] V24, [facility] V28) 12/12/2014 Depression with anxiety 12/12/2014 Benign colonic polyp 12/12/2014 Vitamin D deficiency 07/27/2012 Internal hemorrhoids 07/27/2010 Diverticulosis 05/29/2010 Encounters Date Type Department Care Team Description 09/06/2024 9:15 AM EDT Office Visit [facility] [address] [place] [phone] Zahida Roger MD Pressure ulcer of upper thigh, right, stage III (CMS/HCC V24, CMS/HCC V28) (Primary Dx); Chronic venous hypertension (idiopathic) with ulcer of right lower extremity (CODE) (CMS/HCC V24, CMS/HCC V28); Non-pressure chronic ulcer of other part of right lower leg limited to breakdown of skin (CMS/HCC V24, CMS/HCC V28); Lymphedema; Dermatitis associated with moisture; Wound of right groin, initial encounter; Non-pressure chronic ulcer of skin of other sites limited to breakdown of skin (CMS/HCC V24, CMS/HCC V28); Chronic venous hypertension (idiopathic) with other complications of left lower extremity 09/02/2024 9:10 AM EDT [facility] [address] [phone] Han Sloan DO Hereditary hemochromatosis (CMS/HCC V24) (Primary Dx); Decompensated cirrhosis (CMS/HCC V24, CMS/HCC V28); 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 V24, CMS/HCC V28) [facility]02[facility] [address] [phone] Han Sloan DO Provider Call Back 08/27/2024 1:49 PM EDT - 08/27/2024 6:00 PM EDT Emergency [facility] Emergency [address] [place] [phone] Cirrhosis of liver with ascites, unspecified hepatic cirrhosis type (CMS/HCC V24, CMS/HCC V28) (Primary Dx) Discharge Disposition: Home or Self Care 08/27/2024 Telephone Gastroenterology [facility] 175 [facility] [address] [phone] Han Sloan DO 07/26/2024 Telephone Gastroenterology [facility] [address] [phone] Han Sloan DO provider call back 07/16/[facility] [address] [phone] Han Sloan DO 07/06/2024 3:56 PM EDT - 07/07/2024 12:46 PM EDT Hospital Encounter [facility] [address] [place] [phone] Rosaura Iglesias MD Kela, MD Andrea Perdue Foster Myles G, CRNA Freeman, Katharine O, MD Personal history of portal hypertension (Primary Dx); Esophageal varices without bleeding, unspecified esophageal varices type (CMS/HCC V24, CMS/HCC V28); Liver cirrhosis secondary to CASTANEDA (nonalcoholic steatohepatitis) (CMS/HCC V24, CMS/HCC V28) Discharge Disposition: Home-Health Care [facility] 07/06/2024 2:08 PM EDT Anesthesia Event [facility] Interventional Radiology [address] [place] [phone] Paul Alfaro DO 07/05[facility] [address] [phone] Han Sloan DO 06/29/2024 Telephone Gastroenterology [facility] [address] [phone] Han Sloan DO Appointment (Upcoming Echo) 06/24/2024 11:20 AM EST Office Visit [facility] [address] [phone] Han Sloan DO Cirrhosis of liver with ascites, unspecified hepatic cirrhosis type (CMS/HCC V24, CMS/HCC V28) (Primary Dx); Other ascites; Deep vein thrombosis of portal vein 06/18/2024 Lab Requisition [facility] - [facility] [address] [facility] [employer] [place] [phone] Gerry Barksdale Sepsis, unspecified organism ([facility] V24, [facility] V28) 06/14/2024 Telephone [facility]ology - [place] 175 [facility] 175 [facility] [address] [place] [phone] Han Sloan DO provider call back 06/13/2024 12:02 PM EST - 06/16/2024 2:30 PM EST Hospital Encounter [facility] Medical Surgical Unit [address] [place] [phone] Barak Benjamin MD Flores, Carlos M, MD Kela, Kashyap Devendrabhai, MD Mohani, Priya, MD Bacteremia (Primary Dx); Cuello catheter in place; Urinary tract infection associated with indwelling urethral catheter, initial encounter ([facility] V24); Hx of ascites; Anasarca Discharge Disposition: Home-Health Care [facility] from Last 3 Months Surgical History Surgery Date Site/Laterality Comments BACK SURGERY PROCEDURE: HISTORICAL BACK SURGERY; COMMENT: spinal diskectomy, osteophytectomy x4 ESOPHAGOGASTRODUODENOSCOPY PROCEDURE: SD ESOPHAGOGASTRODUODENOSCOPY TRANSORAL DIAGNOSTIC COLONOSCOPY N/A PROCEDURE: HISTORICAL COLONOSCOPY OTHER SURGICAL HISTORY Right PROCEDURE: SD STAB PHLEBT VARICOSE VEINS 1 XTR > 20 INCS Medical History Medical History Date Comments Anxiety 04/13/2018 DX:Anxiety Benign colonic polyp 12/12/2014 DX:Benign c olonic polyp Chronic allergic conjunctivitis 04/13/2018 DX:Chronic allergic conjunctivitis Cirrhosis of liver (CMS/HCC V24, [facility] V28) 12/03/2017 DX:Cirrhosis of liver (HCC) Depression [...] 12/03/2017 DX:Iron o verload syndrome Morbid obesity ([facility] V24, [facility] V28) 09/10/2017 DX:Morbid obesity (HCC) Obstructive sleep apnea 05/21/2016 DX:Obstr uctive sleep apnea Thoracic or lumbosacral neur itis or radiculitis 09/13/2011 DX:Thoracic or lumbosacral n euritis or radiculitis Vitamin D deficiency 07/27/2012 DX:Vitamin D deficiency Portal hypertension (CMS/HCC V24, [facility] V28) Ascites Thrombocytopenia ([facility] V24) Splenomegaly BPH (benign prostatic hyperplasia) Portal [...] Sign Reading Time Taken Comments Blood Pressure 125/46 09/06/2024 9:22 AM EDT Pulse 82 09/06/2024 9:22 AM EDT Temperature 36.1 ??C (96.9 ??F) 09/06/2024 9:22 AM ED T Respiratory Rate 18 09/06/2024 9:22 AM EDT Oxygen Saturation 98% 09/06/2024 9:22 AM EDT Inhaled Oxygen Concentration - - Weight 139 kg (307 lb) 09/06/2024 9:22 AM EDT Height 165.1 cm (5' 5 ) 09/06/2024 9:22 AM EDT Body Mass Index 51.09 09/06/2024 9:22 AM EDT Plan of Treatment Upcoming Encounters Date Type Department Care Team (Late st Contact Info) Description 09/20/2024 11:15 AM EDT Clinical Support [facility] [address] [place] [phone] 11/25/2024 9:10 AM EDT Office Visit Gastroenterology - [place] [address] [facility] [address] [place] [phone] Han Sloan DO [address] [facility] [address] [place] [address] Health Maintenance Due Date Last Done Comments [...] 07/06/2024 Diabetes: Annual GFR (Glomerular Filtration Rate) 08/27/2025 08/27/2024, 07/30/2024, 07/07/2024, Additional history exists Hypertension/CHF/CAD Annual BMP Blood Test 08/27/2025 08/27/2024, 07/30/2024, 07/07/2024, Additional history exists Colorectal Cancer Screening: Colonoscopy [...] on patient's age to complete this topic Goals Goal Patient Goal Type Associated Problems Recent Progress Patient-Stated? Author Decrease Wound Volume by X% by date (in notes) Care Plan Impaired Tissue Katie Whitley RN Patient and Caregiver Understand Wound Care Education Care Plan Impaired Tissue Katie Whitley RN Wound volume breakdown reduced by X% by week 4 Care Plan Impaired Tissue Katie Whitley RN Wound volume breakdown reduced by X% by week 8 Care Plan Impaired Tissue Katie Whitley RN Wound volume breakdown reduced by X% by week 12 Care Plan Impaired Tissue Katie Whitley RN Quit using tobacco (cigarettes, smokeless, etc) Care Plan Education needed on impact of smoking on wound Katie Whitley RN Reduce tobacco use (cigarettes, smokeless, etc) Care Plan Education needed on impact of smoking on wound No Katie Mott RN Decrease Wound Volume by X% by date (in notes) Care Plan Education needed on impact of smoking on wound Katie Whitley RN Patient and Caregiver Understand Wound Care Education Care Plan Education needed related to ulceration/compr omised skin integrity. No Katie Mott RN Medical Devices Implanted Type Area Tube Closing Machine Operator Device Identifier Shelf Expiration Date Model / Serial / Lot Stent Viatorr 8-10mmx8/2cm - [id number] - [id number] Implanted:Qty: 1 on 07/06/2024 by Paul Bonner MD at [facility] Peripheral Vasc Drug Eluting Stents Right: Liver [employer] [id number] 05/20/2026 [id number] / [id number] / Stent Viatorr 8-10mmx8/2cm - [id number] - [id number] Implanted:Qty: 1 on 07/06/2024 by Paul Bonner MD at [facility] Peripheral Vasc Drug Eluting Stents Right: Liver [employer] [id number] 03/29/2027 [id number] / [id number] / Procedures Procedure Name Priority Date/Time Associated Diagnosis Comments ECG ANNOTATED 08/30/2024 DIFFERENTIAL BODY FLUID STAT 08/28/19 25 3:58 PM EDT CELL COUNT WITH REFLEX DIFFERENTIAL, BODY FLUID STAT 08/27/2024 3:58 PM EDT CULTURE BODY FLUID WITH GRAM STAIN STAT 08/27/2024 3:58 PM EDT US PARACENTESIS W IMAGE GUIDANCE STAT 08/27/2024 3:55 PM EDT ECG 12-LEAD STAT 08/27/2024 2:17 PM EDT ACTIVATED PARTIAL THROMBOPLASTIN TIME STAT 08/27/2024 2:16 PM EDT PROTHROMBIN TIME WITH INR STAT 08/27/2024 2:16 PM EDT AMMONIA STAT 08/27/2024 2:16 PM EDT CBC WITH AUTO DIFFERENTIAL STAT 08/27/2024 2:16 PM EDT B-TYPE NATRIURETIC PEPTIDE STAT 08/27/2024 2:16 PM EDT LIPASE STAT 08/27/2024 2:16 PM EDT COMPREHENSIVE METABOLIC PANEL STAT 08/27/2024 2:16 PM EDT CBC AND DIFFERENTIAL STAT 08/27/2024 2:16 PM EDT BASIC METABOLIC PANEL Routine 07/30/2024 11:49 AM [...] AND DIFFERENTIAL STAT 06/13/2024 12:37 PM EST HEMOGLOBIN A1C Routine 05/21/2024 3:17 AM EST from Last 3 Months or Most Recently Relevant to Health Maintenance Results * ECG-Annotated (08/30/2024) Only the most recent of2 resultswithin the time period is included. us Provider Onbase MD ECG ORDERABLES Final Result * Cell count with reflex differential, body fluid (08/27/2024 3:58 PM EDT) Only the most recent of2 resultswithin the time period is included. Body Fluid Total Nucleated Cells 408 /mm3 LAB HEMETOLOGY METHOD 08/27/2024 5:[address] [facility] Body Fluid RBC 1,000 /mm3 LAB HEMETOLOGY METHOD 08/27/2024 5:[address] [facility] Body Fluid Color Yellow 08/27/2024 5:[address] [facility] Body Fluid Clarity Hazy 08/27/2024 5:[address] [facility] Body Fluid Source Peritoneal 08/27/2024 5:[address] [facility] Peritoneal Fluid Non-blood Collection / Unknown 08/27/2024 3:58 PM EDT 08/27/2024 4:[address] [facility] - 08/27/2024 5:57 PM EDT No reference ranges have been established for body fluids. Clinical correlation recommended. us Christina RAND LAB BODY FLUIDS AND STOOLS OR DERABLES Final Result Performing Organization Address [facility] de Phone Number [facility] [address] [place] [address], [place] [phone] * Culture body fluid with gram stain (08/27/2024 3:58 PM EDT) Only the most recent of2 resultswithin the time period is included. Fluid Culture No growth at 3 days LAB MICROBIOLOGY METHOD 08/30/2024 11:[address] [facility] Gram Stain Result No polymorphonuclear leukocytes, No epithelial cells, and No organisms noted 08/30/2024 11:[address] [facility] Ascites Structure of abdominopelvic wall / Unknown 08/27/2024 3:58 PM EDT 08/27/2024 4:07 PM EDT Christina RAND LAB MICROBIOLOGY - GENERAL OR DERABLES Final Result Performing Organization Address [facility] de Phone Number [facility] [address] [place] [address], [place] [phone] * Differential body fluid (08/27/2024 3:58 PM EDT) Only the most recent of2 resultswithin the time period is included. Fluid Neutrophils % 2 % 08/27/2024 5:[address] [facility] Fluid Lymphocytes % 62 % 08/27/2024 5:[address] [facility] Fluid Monocytes/Macrop hages 36 % 08/27/2024 5:[address] [facility] Fluid Eosinophils % 0 % 08/27/2024 5:[address] [facility] Fluid Basophils % 0 % 08/27/2024 5:[address] [facility] Fluid Other Cells % 0 % 08/27/2024 5:[address] [facility] Peritoneal Fluid Non-blood Collection / Unknown 08/27/2024 3:58 PM EDT 08/27/2024 4:07 PM EDT Narrative [facility] - 08/27/2024 5:57 PM EDT No reference ranges have been established for body fluids. Clinical correlation recommended. us Christina RAND LAB BODY FLUIDS AND STOOLS OR DERABLES Final Result [facility] ([facility] [address] [place] [address], [place] [phone] * US Paracentesis w Image Guidance (08/27/2024 3:55 PM EDT) Only the most recent of2 resultswithin the time period is included. Anatomical Region Laterality Modality Abdomen Ultrasound 08/27/2024 3:57 PM EDT Narrative 08/27/2024 4:33 PM EDT History: Ascites Procedure performed: Ultrasound-guided paracentesis Physician: Patric Anderson MD Anesthesia: 9 mL of 1% Lidocaine was administered as local anesthesia Specimen: 4.7 L of yellow fluid Drain: 5-German Yueh catheter Estimated blood loss: Minimal Competitions: None Procedure in detail: Informed and written consent was obtained. ??Ultrasound of the patient's abdomen showed diffuse ascites. ??An appropriate site for drainage was noted in the right lower quadrant. ??This area was prepped and draped. ??1% Lidocaine was injected subcutaneously and extended to the peritoneum. ??A small incision was made in the skin with a #11 blade. ??Through the incision and under ultrasound guidance with permanent recordings and direct visualization of needle entry into the peritoneum, a Yueh needle catheter was advanced into the peritoneum. ??The catheter was connected to suction yielding 4.7 L of yellow fluid. ??The catheter was removed and a sterile dressing was applied. Summary: Successful ultrasound-guided paracentesis as described. -------- FINAL REPORT -------- Dictated By: Job Anderson Dictated Date: 08/27/2024 15:57 ET Assigned Physician: Job Anderson Reviewed and Electronically Signed By: Job Anderson Signed Date: 08/27/2024 16:33 ET Workstation ID: [id number] Transcribed By: Self Edit Transcribed Date: 08/27/2024 15:57 ET Procedure Note Job Anderson MD - 08/27/2024 History: Ascites Procedure performed: Ultrasound-guided paracentesis Physician: Patric Anderson MD Anesthesia: 9 mL of 1% Lidocaine was administered as local anesthesia Specimen: 4.7 L of yellow fluid Drain: 5-German Yueh catheter Estimated blood loss: Minimal Competitions: None Procedure in detail: Informed and written consent was obtained.Ultrasound of the patient's abdomen showed diffuse ascites. Anappropriate site for drainage was noted in the right lower quadrant. Thisarea was prepped and draped. 1% Lidocaine was injected subcutaneously andextended to the peritoneum. A small incision was made in the skin with a#11 blade. Through the incision and under ultrasound guidance withpermanent recordings and direct visualization of needle entry into theperitoneum, a Yueh needle catheter was advanced into the peritoneum. Thecatheter was connected to suction yielding 4.7 L of yellow fluid. Thecatheter was removed and a sterile dressing was applied. Summary: Successful ultrasound-guided paracentesis as described. -------- FINAL REPORT -------- Dictated By: Job Anderson Dictated Date: 08/27/2024 15:57 ET Assigned Physician: Job Anderson Reviewed and Electronically Signed By: Job Anderson Signed Date: 08/27/2024 16:33 ET Workstation ID: [id number] Transcribed By: Self Edit Transcribed Date: 08/27/2024 15:57 ET us Christina RAND IMG US PROCEDURES Final Resul t * ECG 12 lead (08/27/2024 2:17 PM EDT) Only the most recent of2 resultswithin the time period is included. Ventricular Rate ECG 82 BPM GEMUSE Atrial Rate 82 BPM GEMUSE P-R Interval 160 ms GEMUSE QRS Duration 132 ms GEMUSE Q-T Interval 432 ms GEMUSE QTc 504 ms GEMUSE P Wave [place] 61 degrees GEMUSE R [place] -21 degrees GEMUSE T [place] 40 degrees GEMUSE ECG Interpretation Normal sinus rhythm Right bundle branch block Septal infarct (cited on or before 27-AUG-2024) Abnormal ECG When compared with ECG of 15-JUN-2024 12:53, No significant change was found Confirmed by TO GAITAN ([id number]) on 08/27/2024 10:17:09 PM GEMUSE 08/27/2024 2:17 PM EDT 08/27/2024 10:17 PM EDT us Emily Singh DO ECG ORDERABLES Final Res ult GEMUSE * (ABNORMAL) CBC auto differential (08/27/2024 2:16 PM EDT) Only the most recent of3 resultswithin the time period is included. WBC 4.8 4.8 - 10.8 K/mcL LAB HEMETOLOGY METHOD 08/27/2024 2:[address] [facility] RBC 3.20(L) 4.50 - 5.50 M/mcL LAB HEMETOLOGY METHOD 08/27/2024 2:[address] [facility] Hemoglobin 11.5(L) 13.5 - 17.5 g/dL LAB HEMETOLOGY METHOD 08/27/2024 2:[address] [facility] Hematocrit 34.6(L) 42.0 - 54.0 % LAB HEMETOLOGY METHOD 08/27/2024 2:[address] [facility] MCV 107.1(H) 79.0 - 98.0 FL LAB HEMETOLOGY METHOD 08/27/2024 2:[address] [facility] MCH 35.6(H) 27.0 - 32.0 pcg LAB HEMETOLOGY METHOD 08/27/2024 2:[address] [facility] MCHC 33.2 32.0 - 37.0 g/dL LAB HEMETOLOGY METHOD 08/27/2024 2:[address] [facility] RDW 17.2(H) 11.0 - 15.0 % LAB HEMETOLOGY [facility] Platelets 102(L) 130 - 400 K/mcL LAB HEMETOLOGY METHOD 08/27/2024 2:[address] [facility] MPV 10.4 7.0 - 11.0 FL LAB HEMETOLOGY METHOD 08/27/2024 2:[facility] NRBC 0.0 <1.0 % LAB HEMETOLOGY METHOD 08/27/2024 2:36 PM [facility] NRBC Absolute 0.00 <0.10 K/mcL LAB HEMETOLOGY METHOD 08/27/2024 2:[facility] Neutrophils Relative 61.4 % LAB HEMETOLOGY METHOD 08/27/2024 2:36 PM [facility] Lymphocytes Relative 22.8 % LAB HEMETOLOGY METHOD 08/27/2024 2:36 PM [facility] Monocytes Relative 14.0 % LAB HEMETOLOGY METHOD 08/27/2024 2:36 PM [facility] Eosinophils Relative 0.8 % LAB HEMETOLOGY METHOD 08/27/2024 2:36 [facility] Basophils Relative 0.8 % LAB HEMETOLOGY METHOD 08/27/2024 2:36 [facility] Immature Granulocytes Relative 0.2 % LAB HEMETOLOGY METHOD 08/27/2024 2:[address] [facility] Neutrophils Absolute 2.94 1.50 - 7.00 K/mcL LAB HEMETOLOGY METHOD 08/27/2024 2:[address] [facility] Lymphocytes Absolute 1.09 1.00 - 5.00 K/mcL LAB HEMETOLOGY METHOD 08/27/2024 2:[address] [facility] Monocytes Absolute 0.67 0.20 - 1.00 [facility] HEM[facility]OLOGY METHOD 08/27/2024 2:[address] [facility] Eosinophils Absolute 0.04 0.00 - 0.50 [facility] HEMETOLOGY METHOD 08/27/2024 2:[address] [facility] Basophils Absolute 0.04 0.00 - 0.20 [facility] HEMETOLOGY METHOD 08/27/2024 2:[address] [facility] Immature Granulocytes Absolute 0.01 0.00 - 0.03 [facility] HEMETOLOGY METHOD 08/27/2024 2:[address] [facility] Blood Venous blood specimen / Unknown Venipuncture / Unknown 08/27/2024 2:16 PM EDT 08/27/2024 2:31 PM EDT us Emily Singh DO LAB BLOOD ORDERABLES Berenice l Result [facility] [address] [place] [address], [place] [phone] * APTT (08/27/2024 2:16 PM EDT) Only the most recent of2 resultswithin the time period is included. aPTT 36.0 24.1 - 39.3 sec LAB COAGULATION METHOD 08/27/2024 2:[address] [facility] Blood Venous blood specimen / Unknown Venipuncture / Unknown 08/27/2024 2:16 PM EDT 08/27/2024 2:30 PM EDT us Emily Gant [facility] LAB BLOOD ORDERABLES Berenice l Result Performing Organization Address [facility]/ZIP Co de Phone Number [facility] [address] [place] [address], [place] [phone] * (ABNORMAL) Prothrombin time with INR (08/27/2024 2:16 PM EDT) Only the most recent of2 resultswithin the time period is included. Pathologist [facility] Protime 17.6(H) 10.6 - 13.9 sec LAB COAGULATION METHOD 08/27/2024 2:[address] [facility] INR 1.4 LAB COAGULATION METHOD 08/27/2024 2:[address] [facility] Blood Venous blood specimen / Unknown Venipuncture / Unknown 08/27/2024 2:16 PM EDT 08/27/2024 2:30 PM EDT [facility] LAB BLOOD ORDERABLES Berenice l Result Performing Organization Address [facility]/ZIP Co de Phone Number [facility] [address] [place] [address], [place] [phone] * B-type natriuretic peptide (08/27/2024 2:16 PM EDT) [facility] BNP 75 <=100 pcg/mL LAB CHEMISTRY METHOD 08/27/2024 3:[address] [facility] Blood Venous blood specimen / Unknown Venipuncture / Unknown 08/27/2024 2:16 PM EDT 08/27/2024 2:30 PM EDT [facility] LAB BLOOD ORDERABLES Berenice l Result [facility] [address] [place] [address], [place] [phone] * Lipase (08/27/2024 2:16 PM EDT) [facility] Lipase 42 13 - 75 unit/L LAB CHEMISTRY METHOD 08/27/2024 3:[address] [facility] Blood Venous blood specimen / Unknown Venipuncture / Unknown 08/27/2024 2:16 PM EDT 08/27/2024 2:30 PM EDT Leroy Lasha Singh LAB BLOOD ORDERABLES Berenice l Result Performing Organization Address [facility]/ZIP Co de Phone Number [facility] [address] [place] [address], [place] [phone] * Ammonia (08/27/2024 2:16 PM EDT) [facility] Ammonia 23 11 - 35 mcmol/L LAB CHEMISTRY METHOD 08/27/2024 2:[address] [facility] Blood Venous blood specimen / Unknown Venipuncture / Unknown 08/27/2024 2:16 PM EDT 08/27/2024 2:30 PM EDT Emily Singh LAB BLOOD ORDERABLES Berenice l Result Performing Organization Address [facility] de Phone Number [facility] [address] [place] [address], [place] [phone] * (ABNORMAL) Comprehensive metabolic panel (08/27/2024 2:16 PM EDT) Only the most recent of2 resultswithin the time period is included. [facility] Sodium 137 133 - 145 mmol/L LAB CHEMISTRY METHOD 08/27/2024 3:[address] [facility] Potassium 3.8 3.5 - 5.5 mmol/L LAB CHEMISTRY METHOD 08/27/2024 3:[address] [facility] Chloride 105 96 - 110 mmol/L LAB CHEMISTRY METHOD 08/27/2024 3:[address] [facility] CO2 26 21 - 32 mmol/L LAB CHEMISTRY METHOD 08/27/2024 3:02 PM [facility] Anion Gap 6 3 - 11 LAB CHEMISTRY METHOD 08/27/2024 3:02 PM [facility] Glucose 122(H) 70 - 100 mg/dL LAB CHEMISTRY METHOD 08/27/2024 3:02 PM [facility] BUN 11 5 - 25 mg/dL LAB CHEMISTRY METHOD 08/27/2024 3:02 PM [facility] Creatinine 0.51(L) 0.70 - 1.30 mg/dL LAB CHEMISTRY METHOD 08/27/2024 3:02 PM [facility] eGFR 112 >=60 mL/min/1. 73m2 LAB CHEMISTRY METHOD 08/27/2024 3:02 PM [facility] Comment:Calculation based on the Chronic Kidney Disease Epidemiology Collaboration (CKD-EPI) equation refit without adjustment for race. BUN/Creatinine Ratio 21.6 LAB CHEMISTRY METHOD 08/27/2024 3:02 PM [facility] Calcium 8.5 8.5 - 10.5 mg/dL LAB CHEMISTRY METHOD 08/27/2024 3:02 PM [facility] AST (SGOT) 32 10 - 42 unit/L LAB CHEMISTRY METHOD 08/27/2024 3:02 PM [facility] ALT (SGPT) 23 10 - 60 unit/L LAB CHEMISTRY METHOD 08/27/2024 3:02 PM [facility] Alkaline Phosphatase 213(H) 42 - 121 unit/L LAB CHEMISTRY METHOD 08/27/2024 3:02 PM [facility] Total Protein 6.1 6.0 - 8.0 g/dL LAB CHEMISTRY METHOD 08/27/2024 3:02 PM [facility] Albumin 2.6(L) 3.2 - 5.0 g/dL LAB CHEMISTRY METHOD 08/27/2024 3:[address] [facility] Total Bilirubin 4.2(H) 0.0 - 1.4 mg/dL LAB CHEMISTRY METHOD 08/27/2024 3:02 PM [facility] Blood Venous blood specimen / Unknown Venipuncture / Unknown 08/27/2024 2:16 PM EDT 08/27/2024 2:30 PM EDT Emily Gant Singh DO LAB BLOOD ORDERABLES Berenice l Result [facility] [address] [place] [address], [place] [phone] * (ABNORMAL) Basic metabolic panel (07/30/2024 11:49 AM EDT) Only the most recent of5 resultswithin the time period is included. Sodium 139 133 - 145 mmol/L LAB CHEMISTRY METHOD 07/30/2024 1:21 PM [facility] Potassium 4.0 3.5 - [...] LAB CHEMISTRY METHOD 07/30/2024 1:[address] [facility] eGFR 108 >=60 mL/min/1. 73m2 LAB CHEMISTRY METHOD 07/30/2024 1:[address] [facility] Comment:Calculation based on the??Chronic Kidney Disease Epidemiology Collaboration (CKD-EPI) equation refit??without adjustment for race. BUN/Creatinine Ratio 17.5 LAB CHEMISTRY METHOD 07/30/2024 1:[address] [facility] Calcium 8.6 8.5 - 10.5 mg/dL LAB CHEMISTRY METHOD 07/30/2024 1:[address] [facility] Blood Venous blood specimen / Unknown Venipuncture / Unknown 07/30/2024 11:49 AM EDT 07/30/2024 12:22 PM EDT us Dalia RAND LAB BLOOD ORDERABLES Final Re sult [facility] [address] [place] [address], [place] [phone] * (ABNORMAL) Complete blood count (07/07/2024 6:20 AM EDT) Only the most recent of3 resultswithin the time period is included. WBC 5.0 4.8 - 10.8 K/mcL LAB HEMETOLOGY METHOD 07/07/2024 7:[address] [facility] RBC 3.60(L) 4.50 - 5.50 M/mcL LAB HEMETOLOGY METHOD 07/07/2024 7:[address] [facility] Hemoglobin 12.7(L) 13.5 - 17.5 g/dL LAB HEMETOLOGY METHOD 07/07/2024 7:19 AM [facility] Hematocrit 38.0(L) 42.0 - 54.0 % LAB HEMETOLOGY METHOD 07/07/2024 7:[address] [facility] MCV 104.4(H) 79.0 - 98.0 FL LAB HEMETOLOGY METHOD 07/07/2024 7:[address] [facility] MCH 34.9(H) 27.0 - 32.0 pcg LAB HEMETOLOGY METHOD 07/07/2024 7:[address] [facility] MCHC 33.4 32.0 - 37.0 g/dL LAB HEMETOLOGY METHOD 07/07/2024 7:[address] [facility] RDW 15.3(H) 11.0 - 15.0 % LAB HEMETOLOGY METHOD 07/07/2024 7:[address] [facility] Platelets 98(L) 130 - 400 K/mcL LAB HEMETOLOGY METHOD 07/07/2024 7:[address] [facility] Comment:previously verified by slide MPV 10.6 7.0 - 11.0 FL LAB HEMETOLOGY METHOD 07/07/2024 7:[address] [facility] NRBC 0.0 <1.0 % LAB HEMETOLOGY METHOD 07/07/2024 7:[address] [facility] NRBC Absolute 0.00 <0.10 K/mcL LAB HEMETOLOGY METHOD 07/07/2024 7:[address] [facility] Blood Venous blood specimen / Unknown Venipuncture / Unknown 07/07/2024 6:20 AM EDT 07/07/2024 6:57 AM EDT us Paola RAND LAB BLOOD ORDERABLES Final Resu lt [facility] [address] [place] [address], * Magnesium (07/07/2024 6:20 AM EDT) Only the most recent of3 resultswithin the time period is included. Pathologist [facility] Magnesium 2.3 1.9 - 2.6 mg/dL LAB CHEMISTRY METHOD 07/07/2024 7:[address] [facility] Blood Venous blood specimen / Unknown Venipuncture / Unknown 07/07/2024 6:20 AM EDT 07/07/2024 6:55 AM EDT Paola RAND LAB BLOOD ORDERABLES Final Resu lt Performing Organization Address [facility] Co de Phone Number [facility] [address] [place] [address], [place] [phone] * (ABNORMAL) POCT Glucose, blood (07/06/2024 5:56 PM EDT) [facility] Glucose POCT 141(H) 70 - 100 mg/dL 07/06/2024 5:[address] [facility] Blood Capillary blood specimen / Unknown 07/06/2024 5:56 PM EDT 07/06/2024 5:58 PM EDT Rosaura Iglesias MD LAB POINT OF CARE TE ST DOCKED DEVICE UNSOLICITED RESULTS Final Result Performing Organization Address [facility] de Phone Number [facility] [address] [place] [address], [place] [phone] * IR Insert Hepatic Shunt TIPS (07/06/2024 [...] Signed Date: 07/06/2024 17:22 ET Workstation ID: [id number] Transcribed By: Self Edit Transcribed Date: 07/06/2024 [...] and a 0.035 guidewire was inserted. ??A 10-German by 45 cm check flow sheath was inserted and advanced to the IVC. ??A 5-German MPA catheter was then used to catheterize the right hepatic vein. ??Venogram confirms position in the hepatic vein. ??The 10-German by 45 cm sheath was advanced over [...] with an 6 mm x 6 cm DIRECTOR OF MUSIC [employer]ER[employer] balloon. ??The sheath was then advanced into [...] and a 0.035 guidewire was inserted. A 10-German by45 cm check flow sheath was inserted and advanced to the IVC. A 5-FrenchMPA catheter was then used to catheterize the right hepatic vein.Venogram confirms position in the hepatic vein. The 10-German by 45 cmsheath was advanced over the catheter into the right hepatic vein. [facility] TIPS set was then introduced through the [...] dilatedwith an 6 mm x 6 cm [employer] MUSIC [employer]ER[employer] balloon. The sheath was then advanced into [...] Signed Date: 07/06/2024 17:22 ET Workstation ID: [id number] Transcribed By: Self Edit Transcribed Date: 07/06/2024 17:09 ET us Job Anderson MD IMG IR PROCEDURES Final Re sult * TH AN ENDOTRACHEAL(NO CHARGE) (07/06/2024 3:00 PM EDT) Narrative Yovanny Mendez CRNA - 07/06/2024 3:00 PM EDT Yovanny Mendez CRNA ? 07/06/2024 ??3:01 PM General Information and Staff Patient location during procedure: OR Resident/TENNIS DESK TEAM MEMBER: Yovanny Mendez CRNA Performed: resident/TENNIS DESK TEAM MEMBER/CAA Performed by: Yovanny Mendez CRNA Authorized by: [...] (07/06/2024 2:49 PM EDT) Narrative Andrea Yovanny uHtton CRNA - 07/06/2024 2:49 PM EDT Yovanny [...] MD ANESTHESIA ORDERABLES Fin al Result * Type and screen (07/06/2024 1:45 PM EDT) ABO Group B 07/06/2024 2:[address] [facility] Rh Type Positive 07/06/2024 2:[address] [facility] Antibody Screen Negative 07/06/2024 2:[address] [facility] Blood Venous blood specimen / Unknown 07/06/2024 1:45 PM EDT 07/06/2024 1:55 PM EDT Paul Alfaro LAB BLOOD BANK TEST ORDERABLES Final Result [facility] [address] [facility] [place] [address], [place] [phone] * (ABNORMAL) TRANSTHORACIC ECHOCARDIOGRAM (TTE) COMPLETE W/ CONTRAST (06/15/2024 2:35 PM EST) Left [facility] 5.9 cm CV PACS LA Area Sys [...] MD CV ECHO PROCEDURES Final Result * Phosphorus (06/15/2024 6:38 AM EST) [facility] Phosphorus 3.0 2.5 - 4.5 mg/dL LAB CHEMISTRY METHOD 06/15/2024 7:[address] [facility] Blood Venous blood specimen / Unknown Venipuncture / Unknown 06/15/2024 6:38 AM EST 06/15/2024 7:06 AM EST us Liang Reinoso MD LAB BLOOD ORDERABLE S Final Result [facility] [address] [place] [address], [place] [phone] * Culture fungal, other (06/14/2024 10:19 AM EST) Culture, Fungus Negative for Fungus after 4 Weeks 07/12/2024 10:[address] [facility] Peritoneal Fluid Peritoneal cavity structure / Unknown Non-blood Collection / Unknown 06/14/2024 10:19 AM EST 06/14/2024 10:27 AM EST Cristiana RAND LAB MICROBIOLOGY - GENE RAL ORDERABLES Final Result Performing Organization Address [facility]/ZIP Co de Phone Number [facility] [address] [place] [address], [place] [phone] * Specific gravity, body fluid (06/14/2024 10:19 AM EST) Spec Grav, Fluid 1.014 06/14/2024 11:[address] [facility] Peritoneal Fluid Non-blood Collection / Unknown 06/14/2024 10:19 AM EST 06/14/2024 10:26 AM EST [facility] - 06/14/2024 11:01 AM EST No reference ranges have been established for body fluids. Clinical correlation recommended. Cristiana RAND LAB BODY FLUIDS AND STO OLS ORDERABLES Final Result Performing Organization Address [facility] Co de Phone Number [facility] [address] [place] [address], [place] [phone] * Protein, body fluid (06/14/2024 10:19 AM EST) Pathologist [facility] Protein, Fluid 1.4 See Comment g/dL LAB CHEMISTRY METHOD 06/14/2024 11:[address] [facility] Peritoneal Fluid Non-blood Collection / Unknown 06/14/2024 10:19 AM EST 06/14/2024 10:26 AM EST [facility] - 06/14/2024 11:19 AM EST No reference ranges have been established for body fluids. Clinical correlation recommended. Cristiana RAND LAB BODY FLUIDS AND STO OLS ORDERABLES Final Result Performing Organization Address [facility]/ZIP Co de Phone Number [facility] [address] [place] [address], [place] [phone] * Lactate dehydrogenase, body fluid (06/14/2024 10:19 AM EST) LD, Fluid 78 See Comment unit/L LAB CHEMISTRY METHOD 06/14/2024 11:[address] [facility] Peritoneal Fluid Peritoneal cavity structure / Unknown Non-blood Collection / Unknown 06/14/2024 10:19 AM EST 06/14/2024 10:27 AM EST [facility] - 06/14/2024 11:42 AM EST No reference ranges have been established for body fluids. Clinical correlation recommended. Cristiana RAND LAB BODY FLUIDS AND STO OLS ORDERABLES Final Result Performing Organization Address [facility]/ZIP Co de Phone Number [facility] [address] [place] [address], [place] [phone] * Glucose, body fluid (06/14/2024 10:19 AM EST) Glucose, Fluid 150 See Comment mg/dL LAB CHEMISTRY METHOD 06/14/2024 11:[address] [facility] Ascites 06/14/2024 10:1 9 AM EST 06/14/2024 10:26 AM EST [facility] - 06/14/2024 11:28 AM EST No reference ranges have been established for body fluids. Clinical correlation recommended. Cristiana RAND LAB BODY FLUIDS AND STO OLS ORDERABLES Final Result [facility] [address] [place] [address], [place] [phone] * Amylase, body fluid (06/14/2024 10:19 AM EST) Amylase, Fluid 24 See Comment unit/L LAB CHEMISTRY METHOD 06/14/2024 11:[address] [facility] Peritoneal Fluid Non-blood Collection / Unknown 06/14/2024 10:19 AM EST 06/14/2024 10:26 AM EST [facility] - 06/14/2024 11:19 AM EST No reference ranges have been established for body fluids. Clinical correlation recommended. Cristiana RAND LAB BODY FLUIDS AND STO OLS ORDERABLES Final Result Performing Organization Address [facility] Co de Phone Number [facility] [address] [place] [address], [place] [phone] * Albumin, body fluid (06/14/2024 10:19 AM EST) Albumin, Fluid 0.6 See Comment g/dL LAB CHEMISTRY METHOD 06/14/2024 11:[address] [facility] Peritoneal Fluid Non-blood Collection / Unknown 06/14/2024 10:19 AM EST 06/14/2024 10:26 AM EST [facility] - 06/14/2024 11:19 AM EST No reference ranges have been established for body fluids. Clinical correlation recommended. Cristiana RAND LAB BODY FLUIDS AND STO OLS ORDERABLES Final Result Performing Organization Address [facility] de Phone Number [facility] [address] [place] [address], [place] [phone] * Non-gynecologic cytology (06/14/2024 10:19 AM EST) [...] paraffin embedded. Technical cytopathology services provided by [facility], at [address], [place] [address] ([facility] # [id number]/Katya Lo MD, Proced Tech.) 06/17/2024 4:30 PM [facility] Peritoneal Fluid Peritoneal cavity structure / Unknown Non-blood Collection / Unknown 06/14/2024 10:19 AM EST 06/14/2024 2:30 PM EST Cristiana RAND LAB CYTOLOGY ORDERABLES Final Result Performing Organization Address City/[facility]/ZIP Co de Phone Number [facility] [address] [place] [address], * Lactate, with reflex (06/14/2024 5:26 AM EST) Only the most recent of3 resultswithin the time period is included. Pathologist [facility] LACTIC ACID 1.6 0.4 - 2.0 mmol/L LAB CHEMISTRY METHOD 06/14/2024 6:[address] [facility] Blood Venous blood specimen / Unknown Venipuncture / Unknown 06/14/2024 5:26 AM EST 06/14/2024 5:33 AM EST Napoleon Neely MD LAB BLOOD ORDERABLES Final Re sult [facility] [address] [place] [address], [place] [phone] * Culture blood (06/14/2024 5:22 AM EST) Only the most recent of2 resultswithin the time period is included. Culture, Blood No growth at 5 days 06/19/2024 6:[address] [facility] Blood Venous blood specimen / Unknown Venipuncture / Unknown 06/14/2024 5:22 AM EST 06/14/2024 5:33 AM EST us Napoleon Neely MD LAB MICROBIOLOGY - GENERAL OR DERABLES Final Result Performing Organization Address City/[facility]/ZIP Co de Phone Number [facility] [address] [place] [address], * Prostate specific antigen screen (06/13/2024 12:37 [...] ORDERABLES Final Re sult Performing Organization Address City/[facility]/ZIP Co de Phone Number [facility] [address] [place] [address], * (ABNORMAL) C-reactive protein (06/13/2024 12:37 PM EST) C-Reactive Protein 10.20(H) <=0.50 mg/dL LAB CHEMISTRY METHOD 06/13/2024 2:[address] [facility] Blood Venous blood specimen / Unknown Venipuncture / Unknown 06/13/2024 12:37 PM EST 06/13/2024 12:55 PM EST us Napoleon Neely MD LAB BLOOD ORDERABLES Final Re sult [facility] [address] [place] [address], [place] [phone] * (ABNORMAL) Hepatic function panel (06/13/2024 12:37 [...] Final Re sult Performing Organization Address [facility]/ZIP Co de Phone Number [facility] [address] [place] [address], [place] [phone] * Hemoglobin A1c (05/21/2024 3:17 AM EST) [...] ORDERABLES Final Resu lt Performing Organization Address [facility] de Phone Number [facility] [address] [place] [address], [place] [phone] from Last 3 Months or Most Recently Relevant to Health Maintenance Additional Health Concerns Active Problems Noted Date Diagnosed Date Impaired Tissue 09/06/2024 Education needed on impact of smoking on wound 0 09/06/2024 Education needed related to ulceration/compromised skin integrity. 09/06/2024 Insurance [facility] MEDICARE Member Subscriber Plan / Payer (Ef fective 2023-Present) Name:Jonny Reed Relation to Subscriber:Self Name:Jonny Reed Payer ID:[id number] Group ID:[id number] Type:Not on file Address: [place] [address] [address] [id number] Advance Directives Documents on File Type Date Recorded Patient Wood Room Supervisor Expl anation Advance Directives and Living Will 03/04/2024 11:52 AM Advance Directives and Living Will 03/03/2024 1:15 PM Elinor Cortez [facility] Care Proxy * Full Code - Default [...] Healthcare Agent Relationshi p Communication Elinor Cortez Kenna Health Care Agent Care Teams Road Boss Relationship Specialty Start Date End Date Dalia Harmon PA [address] [place] [address], [address] [place] [address] PCP - General 05/10/24
[2024-09-10 09:28] VITALS: BP 130/76; PULSE 81; TEMP 36.2; O2SAT 95
== END 2024-09-10 10:36 | disposition home or self-care (01) ==
DX: K74.60 Unspecified cirrhosis of liver (principal); M87.052 Idiopathic aseptic necrosis of left femur; E66.01 Morbid (severe) obesity due to excess calories; Z68.42 Body mass index [BMI] 45.0-49.9, adult; E83.119 Hemochromatosis, unspecified; R18.8 Other ascites; R33.9 Retention of urine, unspecified; G47.00 Insomnia, unspecified

== ENCOUNTER → 2024-09-10 09:11 | Outpatient (BNVA) | payer OTHER, SELFPAY | DX: K74.69 Other cirrhosis of liver (principal); R18.8 Other ascites; E83.119 Hemochromatosis, unspecified; M87.052 Idiopathic aseptic necrosis of left femur; E66.01 Morbid (severe) obesity due to excess calories; Z68.42 Body mass index [BMI] 45.0-49.9, adult; R33.9 Retention of urine, unspecified; G47.00 Insomnia, unspecified; Z96.0 Presence of urogenital implants; Z13.31 Encounter for screening for depression | CPT/HCPCS: 96127; 99212 ==

== ENCOUNTER 2024-11-19 13:00 | Outpatient (AMB) | payer OTHER, SELFPAY ==
--- OUTSIDE RECORDS SUMMARY | 2024-11-19 13:02 | XMS_ITS ---
Author Organization [facility] Address [address] [place] [address] Care Team Providers Care Lease Picker Name Role Phone Dalia Harmon Primary Care Provider [phone] Transplant Episode Liver Candidate [facility] ([place], [place]) - COUNTS INCLUDE [facility] BEDS AT [facility] Evaluation began on 10/19/2024 Marked as Active on 10/19/2024 Reason: Workup Liver CoordinatorNiru Hernandez RN Phone: N/A Fax: N/A Email: N/A Scores Score Value Updated Expires Exceptions/Carly sons CPRA Not available UNOS MELD Not available MELD (Calc) 18 10/19/2024 Creek Organ Diagnosis Organ 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 Referring Physician [phone] N/A Events Pre-Transplant Referred: 09/21/2024 Evaluation began: 10/19/2024 Appointments (10/19/2024 - 12/20/2024) When With Visit Type Description 10/19/2024 Transplant - Gee Hernandez Transplant Evaluation Visit Encounter for pre-transplant evaluation for liver transplant (Primary Dx) 10/19/2024 Transplant - Marina Herrera Transplant Evaluation Visit Encounter for pre-transplant evaluation for liver transplant (Primary Dx) 11/25/2024 Transplant - Pavel-Clark Lucio Telehealth 11/25/2024 Transplant - Rody Champagne Teleheal 12/03/2024 Transplant - Marina Bradley Transp lant Evaluation Visit 12/03/2024 Transplant - Deneen Fan Transplant Ev aluation Visit 12/03/2024 Transplant - Aamir Hicks Transplant Evaluation Visit 12/03/2024 Transplant Transplant Evalu ation Visit
--- OUTSIDE RECORDS SUMMARY | 2024-11-19 13:02 | XMS_ITS | Continuity of Care Document ---
Author Name Justin Bustillo Address [address] [place] [id number] Organization Unknown Address [address] [place] [address] Medications No known medications Problems No known problems
--- OUTSIDE RECORDS SUMMARY | 2024-11-19 13:02 | XMS_ITS ---
Author Name [facility] Organization Unknown Care Team Organization Name Specialty Phone Email Start Date End Da te [facility] Moe Youngblood Primary Care 04/02/20232023 [facility] Ursula Fishman Primary Care 12/26/2022 024
--- OUTSIDE RECORDS SUMMARY | 2024-11-19 13:02 | XMS_ITS | Clinical Summary ---
Author Organization [facility] Address [address] [address] Phone Care Team Providers Care Ui Architect Name Role Phone Dago Ferro MD Primary Care Provider [phone] Allergies No known active allergies Medications oxyCODONE HCl 10 mg Tab Take 10 mg by mouth every 4 (four) hours as needed. 2 Active meloxicam (MOBIC) 15 MG tablet Take 15 mg by mouth daily. 2 Active zolpidem (AMBIEN) 10 mg tablet Take 10 mg by mouth nightly at bedtime as needed. 2 Active liraglutide (SAXENDA SUBQ) Inject under the skin daily. Active therapeutic multivitamin tablet Take 1 tablet by mouth daily. Active furosemide (LASIX) 40 MG tablet Take 40 mg by mouth daily. 2 Active cholecalciferol (VITAMIN D3) 5,000 unit capsule Take 5,000 Units by mouth daily. Active Social History Tobacco Use Types Packs/Day Years Used Date Smoking Tobacco: Never Assessed Child or Family Care Answer Date Record ed Do you have problems with on e of the following making it difficult for you to work, study, or receive health care? No 08/28/2021 Education Answer Date Recorded Are you interested in more education? Not on daniel e 09/03/2023 Are you concerned about learning? Not on file 09/03/2023 No 09/03/2023 No 09/03/2023 Food Answer Date Recorded Within the past 6 months we worried whether our food would run out before we got money to buy more. Sometimes True 022 Within the past 6 months the food we bought just didn't last and we didn't have enough money to get more. Sometimes True 08/19 Residential Stability Answer Date Recor ded What is your housing situation today? I have alo sing 08/28/2021 How many times have you move d in the past 12 months? Zero (I did not move) 08/28/2021 06 Are you worried that in t he next 2 months, you may not have your own housing to live in? No 08/28/2021 Paying for Meds Answer Date Recorded Do you have trouble paying for medicines? No 08/28/2021 Paying Utility Bills Answer Date Record ed Do you have trouble paying your heating or elect ricity bill? No 08/28/2021 Transportation Answer Date Recorded Has the lack of transportati on kept you from medical appointments or from getting medications? No 08/28/2021 Unemployment Answer Date Recorded Are you currently unemployed or working on a part-time or temporary basis, and looking for work? Yes 08/28/2021 Digital Access Answer Date Recorded No 09/15/2022 No 09/15/2022 No 09/15/2022 Reliable internet access at home? Not on file 09/15/2022 Device with a working camera? Not on file Sex and Gender Information Value Date Recorded Sex Assigned at Not on file Legal Sex Male 4:51 PM EDT Gender Identity Not on file Sexual Orientation Not on file Last Filed Vital Signs Vital Sign Reading Time Taken Comments Blood Pressure - - Pulse - - Temperature - - Respiratory Rate - - Oxygen Saturation - - Inhaled Oxygen Concentration - - Weight 135.9 kg (299 lb 9.6 oz) 022 10:04 AM EDT Height 166.4 cm (5' 5.5 ) 08/28/2021 10 :04 AM EDT Body Mass Index 49.1 08/28/2021 10:04 AM EDT Plan of Treatment Health Maintenance Due Date Last Done Comments Adult Td,Tdap Booster 1958 LIPID PANEL 1958 DEPRESSION SCREENING 1970 SMOKING Hx and SMOKELESS TOB ACCO SCREENING 1971 HEPATITIS C SCREENING 01/24/1976 COLOGUARD 2003 COLONOSCOPY 2003 COLORECTAL CANCER SCREENING 2003 FIT TEST 2003 FOBT 2003 SIGMOIDOSCOPY 2003 VIRTUAL COLONOSCOPY 2003 PNEUMOCOCCAL VACCINES (50+ y ears) (1 of 1 - PCV) 01/24/2008 ZOSTER VACCINES (1 of 2) 01/24/2008 COVID-19 VACCINE (1 - 2023-2 5 season) 2023 RSV VACCINE (1 - 1-dose 75+ series) 2033 HEPATITIS A VACCINES Aged Out No long er eligible based on patient's age to complete this topic HIB VACCINES Aged Out No longer eligi ble based on patient's age to complete this topic MENINGOCOCCAL VACCINES (ACWY) Aged Out No longer eligible based on patient's age to complete this topic MENINGOCOCCAL VACCINES (B) Aged Out N o longer eligible based on patient's age to complete this topic Medical Devices Not on file Insurance MEDICARE PART A & B [facility] MEDICARE PART A & B [place] PART [place] & [facility]IC[facility] PART [facility] [place] Care Teams Ui Architect Relationship Specialty Start Date End Date Dago Ferro MD [address] [place] [address] PCP - General Internal Medicine 07/09/21 Additional Source Comments The information contained in this document represents components of the legal health record. It is not the complete legal health record.[facility]
--- OUTSIDE RECORDS SUMMARY | 2024-11-19 13:02 | XMS_ITS | Clinical Summary ---
Author Organization [facility] Address [address] [place] [address] Care Team Providers Care Program Director/Morning Show Host Name Role Phone Dago Ferro MD Primary Care Provider [phone] Allergies No known active allergies Medications Medication [...] 77 04/12/2019 1:36 PM EST Temperature 36.2 C (97.2 F) 04/12/2019 1:36 PM EST Respiratory Rate - - Oxygen Saturation - [...] - PCV) 2023 03/23/2012 Influenza Vaccine (#1) 2024 RSV Adult > 60+ Yrs or Pregn ant (1 - 1-dose 75+ series) 2033 Hepatitis B Vaccines Aged Out No long er eligible based on patient's age to complete this topic RSV Ped < 20 months Aged Out No longe r eligible based on patient's age to complete this topic Care Teams Program Director/Morning Show Host Relationship Specialty Start Date End Date Dago Ferro MD PCP - General Internal Medicine 03/23/19
--- NOTE | 2024-11-19 13:09 | A.OFFPC_ITS ---
Vital Signs 11/19/24 13:16 Height 5 ft 6 in BMI Reason not done Patient refused/unable BP 150/60 H Blood Pressure Location Lt brachial Position Sitting Pulse 99 Pulse Source Pulse Oximeter Temp 96.9 F Temp Source Temporal Artery Scan Pulse Oximetry (%) 95 Oxygen Delivery Method Room Air Intake Visit Reasons: [facility] 10/28 Intake Note: Patient is here for hospital discharge follow up. Patient was discharged from [place] on 10/28/24. Wool Cleaner Required: No Blasting Miner: Present Accompanied by: Sister Allergies nystatin Adverse Reaction (Mild, Verified 11/19/24 13:16) swelling atorvastatin Adverse Reaction (Verified 11/19/24 13:16) Diarrhea Tobacco use date assessed: 11/19/24 Fall risk assessment: No Falls in past year Last assessed Fall Risk: 11/19/24 Dental Screening Dental Screen Date: 06/23/24 HPI HPI Comments History of Present Illness Details 64 y/o Female [facility]. He was admitted at [facility] on 11/12 - 11/16 for an evaluation and treatment of Cellulitis and edema of Scrotum and UTI due to chronic indwelling Cuello Catheter. Today Pt c/o New Skin non healing Wounds that resulted from being Bed Bound at the SNF. He is currently receiving wound Care services 3 times a week. Pt reports that usually he has to go to the wound clinic and this is becoming challenging to him - leaving the house 3 times a week. Pt asking if there is a wound clinic that would provide home services. Pt asking for Hospital Bed; [facility] has not received Rx from PCP. Prescription was sent to the wrong Place ([facility]). Correct Fax Number obtained and Prescription was resent. Pt asking for Nutritional Supplements to aid in wound healing called [facility] - Rx Faxed. [facility] Medical History (Updated 11/19/24 @ 15:07 by Laura Maurice NP) Cellulitis of scrotum Chronic pain syndrome Portal hypertensive gastropathy Depression Anxiety Iron overload syndrome Internal hemorrhoids Diverticulosis Hx of esophageal varices rn long term care prescription opiate use No natural teeth Back pain Back pain Arthritis Fatty liver History of cirrhosis of liver Avascular necrosis Hemochromatosis COPD (chronic obstructive pulmonary disease) NICOLE on CPAP Surgical History H/O transjugular intrahepatic portosystemic shunt Hx of esophagogastroduodenoscopy Hx of colonoscopy [place] teeth extracted History of surgery History of back surgery (~1997) H/O discectomy (~1997) Family History Maternal Grandfather Heart attack Brother Heart attack Social History Household Members: None Housing: Apartment Are you a primary health care administrator to a significant other at home: No Do you presently have visiting nurse or other home services: Yes (MANAGER ACUTE 37.5 hours M-F, 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) 75 years or older and lives alone: No Patient Tobacco Use Status: Former Tobacco user Tobacco use type: Cigarette e-Cigarette/Vaping Use: Never Used Second Hand Smoke Exposure: Yes Substance Use Type: Marijuana service: No Current occupational status: unemployed Gender identity: Male Cognitive needs: No Hearing needs: No Vision needs: No Questionnaire PHQ-9 Over the last 2 weeks, how often have you been bothered by any of the following problems? 3. Trouble falling or staying asleep, or sleeping too much: several days 4. Feeling tired or having little energy: several days 5. Poor appetite or overeating: several days 6. Feeling bad about yourself - or that you are a failure or have let yourself or your family down: not at all 7. Trouble concentrating on things, such as reading the newspaper or watching television: not at all 8. Moving or speaking so slowly that other people could have noticed. Or the opposite - being so fidgety or restless that you have been moving around a lot more than usual: several days 9. Thoughts that you would be better off or of hurting yourself in some way: not at all Depression Screening Interpretation: Positive Depression Screening Done: Yes Source: Developed by Drs. Deep Salguero, Marixa Aranda, Damon Foster and colleagues, with an educational mary from [employer]. Thrive Questionnaire Date Thrive assessed: 09/08/24 I am a: Patient What is your living situation today?: I have a place to live, but I am worried about losing it in the future Within the past 12 months, did the food you bought not last and you didn't have the money to get more?: Sometimes True Within the past 12 months, did you worry whether your food would run out before you got money to buy more?: Sometimes True Do you have trouble paying for medicines?: No Do you have trouble getting transportation to medical appointments?: No Do you have trouble paying your heating and electricity bill?: No Do you have trouble taking care of your child, family member or friend?: No Do you have trouble with day-to-day activities such as bathing, preparing meals, shopping, managing finances, etc.?: Yes Are you currently unemployed and looking for a job?: No Are you interested in more education?: No Currently or been in a relationship where the following occur: No concerns reported THRIVE Score: 3 CHEPE-7 AMB Questionnaire CHEPE-7 Date CHEPE - 7 assessed: 06/23/24 Source: Developed by Drs. Deep Salguero, Marixa Aranda, Damon Foster and colleagues, with an educational mary from [employer]. Physical exam (Primary Care) Vital Signs: Last Vital Signs Temp 96.9 F 11/19/24 13:16 Pulse 99 11/19/24 13:16 BP 150/60 H 11/19/24 13:16 Pulse Ox 95 11/19/24 13:16 Oxygen Delivery Method Room Air 11/19/24 13:16 Tobacco/Smoking Status: Tobacco use Status Tobacco use date assessed 11/19/24 11/19/24 13:19 Patient Tobacco Use Status Former Tobacco user 11/19/24 13:10 Tobacco use type Cigarette 11/19/24 13:10 e-Cigarette/Vaping Use Never Used 11/19/24 13:10 Depression Screening Interpretation: Positive Thrive Assessment: Date of Thrive Assessment Date Thrive assessed 09/08/24 11/19/24 13:10 Currently or been in a relationship where the following occur: No concerns reported Const General: no acute distress Nutritional Appearance: obese morbidly obese Orientation/consciousness: patient oriented x3 Limitations: wheelchair Resp Effort & Inspection: normal respiratory effort Auscultation: clear to auscultation bilaterally Cardio Heart sounds: S1 normal heart sound present and S2 normal heart sound present Neuro General: patient oriented x3 and moves all extremities Extrem Right lower extremity: lower leg Details: tenderness and pitting edema Details: 2+ Left lower extremity: lower leg Details: pitting edema Details: 2+ Psych Speech and movement: Normal speech and movement present Coding Level of Care Code Est Pt Level 4 (57017) Diagnoses Cellulitis of scrotum N49.2 UTI (urinary tract infection) N39.0 Open wound of heel S91.309A Open wound of right hip S71.001A Time Spent (min) 20 Assessment & Plan Assessment & Plan (1) Cellulitis of scrotum: Code(s): N49.2 - Inflammatory disorders of scrotum Category: Medical Plan: Resolved. (2) UTI (urinary tract infection): Code(s): N39.0 - Urinary tract infection, site not specified Category: Medical Plan: Resolved (3) Open wound of heel: Code(s): S91.309A - Unspecified open wound, unspecified foot, initial encounter Category: Medical Plan: Managed by wound Clinic. Ordered [facility] - Nutritional drink to promote wound healing. Pt is requesting Wound care services at home. (4) Open wound of right hip: Code(s): S71.001A - Unspecified open wound, right hip, initial encounter Category: Medical Plan: Managed by wound Clinic. Ordered [facility] - Nutritional drink to promote wound healing. Medications: New [[facility]] DIRECTED 27.8 grams PO BID 100 packets 2RF
[2024-11-19 13:16] VITALS: BP 150/60; PULSE 99; TEMP 36.1; O2SAT 95
== END 2024-11-19 13:49 | disposition home or self-care (01) ==
LOC: HO.HMCH 13:01
PROVIDERS: Visit Provider Nurse Practitioner Family
DX: N49.2 Inflammatory disorders of scrotum (principal); N39.0 Urinary tract infection, site not specified; S91.309A Unspecified open wound, unspecified foot, initial encounter; S71.001A Unspecified open wound, right hip, initial encounter

== ENCOUNTER → 2024-11-19 13:00 | Outpatient (BNVA) | payer OTHER, SELFPAY | PROVIDERS: Visit Provider Nurse Practitioner Family | DX: N49.2 Inflammatory disorders of scrotum (principal); N39.0 Urinary tract infection, site not specified; S91.309D Unspecified open wound, unspecified foot, subsequent encounter; S71.001D Unspecified open wound, right hip, subsequent encounter; X58.XXXD Exposure to other specified factors, subsequent encounter | CPT/HCPCS: 99212 ==